=== PATIENT | female | born 1970 | race Two or more races ===

== ENCOUNTER 2021-06-15 07:28 | Emergency (ER) | payer MEDICAID, SELFPAY ==
--- NOTE | 2021-06-15 | ECG_ITS ---
Test Reason : GENERAL MEDICINE Blood Pressure : / mmHG Vent. Rate : 110 BPM Atrial Rate : 110 BPM P-R Int : 138 ms QRS Dur : 070 ms QT Int : 326 ms P-R-T Axes : 070 -06 020 degrees QTc Int : 441 ms Sinus tachycardia Otherwise normal ECG When compared with ECG of 06-NOV-2019 15:08, No significant change was found Referred By: Generic ED Physician Electronically Signed By:Elpidio Cortez
--- NOTE | ~2021-06-15 | XR_ITS ---
EXAMINATION: XR CHEST CLINICAL INFORMATION: Dyspnea COMPARISON: November 06, 2019 TECHNIQUE: 2 views of the chest were obtained. FINDINGS: No significant abnormality is noted involving the heart, lungs, mediastinum, bony thorax or soft tissues. XR/XR chest 2V IMPRESSION: No acute disease.
[2021-06-15 07:45] VITALS: BP 143/71; PULSE 110; RESP 18; TEMP 36.7; O2SAT 99; BMI 21.7
[2021-06-15] MEDS: 0.9 % Sodium Chloride 1,000 ML 999 ML IV (08:45)
[2021-06-15 08:50] LABS: MANUAL DIFF FLAG NO
[2021-06-15 08:54] LABS: Basophils Percent Auto 0.2 % (0-2); Eosinophils Absolute Auto 0.1 X10*3/uL (0.0-0.4); Eosinophils Percent Auto 0.6 % (0-4); Hematocrit 36.9 % (37.0-47.0); Hemoglobin 12.7 g/dl (12.0-16.0); Imm Gran Abs Auto 0.02 X10*3/uL (0.00-0.03); Imm Gran Pct Auto 0.2 % (0.0-0.4); Lymphocytes Absolute Auto 2.7 X10*3/uL (1.2-4.9); Mean Corpuscular HGB Conc 34.4 g/dl (31.0-35.0); Monocytes Absolute Auto 0.5 X10*3/uL (0.1-1.2); Monocytes Percent Auto 5.9 % (2-11); Neutrophils Absolute Auto 5.4 x10*3/uL (2.0-8.3); Neutrophils Percent Auto 62.1 % (45-73); Platelet Count 256 X10*3/uL (160-400); Red Blood Count 4.24 X10*6/uL (4.20-5.50); Red Cell Distribution Width 11.9 % (11.0-16.0); White Blood Count 8.7 X10*3/uL (4.8-10.8)
[2021-06-15 09:02] LABS: D Dimer High Sensitivity < 150 NG/ML
[2021-06-15 09:10] LABS: Lactic Acid 1.6 mmol/L (0.5-2.0)
[2021-06-15 09:14] LABS: COVID-19 Test Negative (Negative)
[2021-06-15 09:18] LABS: Troponin-I High Sensitivity 4.6 ng/L (<3.5-17.0)
[2021-06-15 09:30] VITALS: BP 161/81; PULSE 111; RESP 18; TEMP 36.8; O2SAT 99
[2021-06-15 09:41] LABS: Alanine Aminotransferase 9 U/L (0-31); Albumin Level 4.1 g/dL (3.5-5.0); Alkaline Phosphatase 81 U/L (39-117); Anion Gap 16 (12-20); Aspartate Amino Transferase 10 U/L (5-31); Bilirubin Total 0.7 mg/dL (0.0-1.0); Blood Urea Nitrogen 24 mg/dL (9-16); Calcium 9.7 mg/dL (8.4-10.2); Carbon Dioxide 28 mmol/L (22-29); Chloride 90 mmol/L (96-108); Creatinine Clr Calc Pharmacy 51.5; Estimated Glomerular Filt Rate 58; Glucose Random 381 mg/dL (60-115); Potassium 4.5 mmol/L (3.3-5.1); Sodium 129 mmol/L (135-145); Total Protein 7.9 g/dL (6.5-8.0)
--- NOTE | 2021-06-15 10:04 | ED.GENADULT ---
HPI - General Adult General Chief complaint: General Medical Stated complaint: shaking diff breathing Time Seen by Provider: 06/15/21 08:01 Source: patient and family (son) Mode of arrival: ambulatory Limitations: language barrier History of Present Illness HPI narrative: 51 year old Georgian-speaking Insulin-dependent diabetic female here with her son presents for shortness of breath, and worsening baseline weakness. States she did not eat yesterday or today because she felt too weak. Patient is alert oriented to person and place, cannot say the date or the year, son states that patient does not read or write very well. Son states that patient was recently hospitalized here at [facility], but there are no records here for that. No chest pain, no cough, no recent medication changes, no fevers, no abdominal pain, no nausea, no vomiting, no diarrhea, no dizziness, no focal weakness, no headache. Patient is not vaccinated for COVID. Related Data Previous Rx's Medication Instructions Recorded cephalexin 500 mg capsule 500 mg PO QID 7 Days #28 cap 06/15/21 Allergies Allergy/AdvReac Type Severity Reaction Status Date / Time No Known Allergies Allergy Unverified 01/21/20 16:32 shrimp Allergy Unknown swelling Uncoded 06/21/16 00:00 Review of Systems Constitutional: Constitutional: Denies chills, Reports fatigue, Denies fever(s), Denies headache(s) and Reports weakness Eyes: Eyes: Denies blurry vision, Denies change in vision, Denies diplopia and Denies loss of vision ENT: Denies dizziness, Denies otalgia, Denies headache(s), Reports mouth pain, Denies post nasal drip, Denies sinus pain, Denies sinus pressure and Denies sore throat Cardiovascular: Cardiovascular: Denies chest pain, Denies syncope, Denies leg edema, Denies lightheadedness, Denies Loss of Consciousness, Denies palpitations and Reports dyspnea Respiratory: Respiratory: Denies chest congestion, Denies cough and Reports dyspnea Gastrointestinal: Gastrointestinal: Denies abdominal pain, Denies hematochezia, Denies constipation, Denies diarrhea, Denies nausea and Denies vomiting Musculoskeletal: Musculoskeletal: Reports no additional musculoskeletal complaints, Denies back pain and Denies numbness Neurologic: Denies Neuro-related abnormal movements, Denies Abnormal speech present, Denies dizziness, Denies syncope, Denies headache(s), Denies focal weakness, Denies loss of vision, Denies numbness, Denies seizure-like activity, Denies Sensory deficit (Neuro), Denies tremor(s) and Reports weakness Endocrine: Endocrine: Reports fatigue and Denies palpitations [facility] Social History Social History Alcohol intake: unknown Patient Tobacco Use Status: Tobacco use Unknown Use of substances other than those prescribed or required for medical reasons: Unknown Advance Directives: No Advance Directives Information Provided: Yes Physical Exam Vital Signs: Vital Signs: Last Vital Signs Temp 98.3 F 06/15/21 09:30 Pulse 111 H 06/15/21 09:30 Resp 18 06/15/21 09:30 BP 161/81 H 06/15/21 09:30 Pulse Ox 99 06/15/21 09:30 BMI result Body Mass Index 21.7 Const: General: alert and awake Nutritional Appearance: thin (frail) Orientation/consciousness: oriented to person and oriented to place Limitations: language barrier HENMT: Head: Yes normal to inspection, Yes normocephalic and Yes atraumatic Ears: hearing grossly normal bilaterally, external ears normal, TM's normal bilaterally and EAC's normal General nose exam: Normal external nose present Face and sinus: Yes normal facial exam and Yes sinuses nontender Mouth: Normal oral and palatal mucosa present Throat: Yes posterior oropharynx normal Eyes: Conjunctivae: conjunctivae normal Pupils: Equal, round and reactive pupils present EOM: EOMs intact bilaterally Neck: Neck: Yes full ROM, Yes no lymphadenopathy and Yes supple Resp: Effort & Inspection: normal respiratory effort and able to speak in complete sentences Auscultation: clear to auscultation bilaterally, no crackles, no rales, no rhonchi and no wheezes Cardio: Rate: regular rate Rhythm: regular rhythm Heart sounds: S1 normal heart sound present and S2 normal heart sound present GI: Inspection: Yes normal to inspection Palpation (GI): Soft to palpation, nontender, no guarding and not rigid Percussion: Yes normal to percussion Auscultation: normal bowel sounds Skin: General skin exam: no rashes or lesions noted Neuro: General: oriented to person, oriented to place and Unable to assess gait Cranial nerves: Yes CN's II-XII intact bilaterally, Yes Facial sensation intact/muscles of mastication intact, Yes Equal, round and reactive pupils present, Yes Normal accommodation reflex present, Yes Bilaterally intact EOM present, Yes Nystagmus not present, Yes Normal facial strength present, Yes Midline tongue present, Yes Ability to bilaterally rotate head present and Yes Ability to bilaterally elevate shoulders present Cognition (Neuro): normal cognition Speech: No Abnormal speech present Gait exam (Neuro): Unable to assess gait Motor exam (neuro): 5/5 motor strength present throughout and Pronator motor function not present Sensory Exam: No Sensory deficit (Neuro) Deep tendon reflexes (DTR's): Right brachioradialis reflex intensity grade: 1+, Left brachioradialis reflex intensity grade: 1+, Right patellar reflex intensity grade: 1+ and Left patellar reflex intensity grade: 1+ Coordination: [id number] test normal Pupils: Normal pupillary reactivity/response: bilateral Extrem: General: Yes normal to inspection, Yes full ROM and Yes capillary refill normal Psych: Appearance: grossly normal Affect: normal affect Attitude: cooperative Thought process: Normal thought process present Course Course Course Narrative: 51-year-old female who is an insulin-dependent diabetic who lives alone presents for some days of worsening weakness, anorexia, and shortness of breath. On exam, patient is only alert oriented to person place, son says that is her baseline as she does not read or write. CBC shows no anemia or leukocytosis, chemistries are remarkable for sodium of 129 and blood sugar 381. Potassium is 4.5. Patient did not take her insulin today. EKG shows sinus tach at 01:10, troponin not elevated, negative D-dimer, patient is COVID negative. Lactate 1.6. Chest x-ray is unremarkable. Will get urine, gave fluids, 5 units insulin Reevaluation(s) Reevaluation #1: Urine positive for UTI will treat with cephalexin Counseled patient to return to emergency room she has fevers, back pain, or any other new or concerning symptoms. Patient verbalized agreement and understanding of the plan Medical Decision Making Lab Data Result diagrams: 06/15/21 08:43 06/15/21 08:43 Labs: Lab Results 06/15/21 06/15/21 06/15/21 Range/Units 08:41 08:42 08:43 WBC 8.7 (4.8-10.8) X10*3/uL RBC 4.24 (4.20-5.50) X10*6/uL Hgb 12.7 (12.0-16.0) g/dl Hct 36.9 L (37.0-47.0) % MCV 87.0 (80.0-98.0) fL MCH 30.0 (27.0-33.0) pg MCHC 34.4 (31.0-35.0) g/dl RDW 11.9 (11.0-16.0) % Plt Count 256 (160-400) X10*3/uL MPV 9.0 L (9.4-12.3) fL Immature Gran % (Auto) 0.2 (0.0-0.4) % Neut % (Auto) 62.1 (45-73) % Lymph % (Auto) 31.0 (20-40) % [place] % (Auto) 5.9 (2-11) % Eos % (Auto) 0.6 (0-4) % Baso % (Auto) 0.2 (0-2) % Lymph # (Auto) 2.7 (1.2-4.9) X10*3/uL [place] # (Auto) 0.5 (0.1-1.2) X10*3/uL Eos # (Auto) 0.1 (0.0-0.4) X10*3/uL Baso # (Auto) 0.0 (0.0-0.2) X10*3/uL Abs Immat Gran (auto) 0.02 (0.00-0.03) X10*3/uL Absolute Neuts (auto) 5.4 (2.0-8.3) x10*3/uL Absolute Nucleated RBC 0.000 (0.0-0.012) X10*3/uL Nucleated RBC % (auto) 0.0 (0.0-0.2) /100WBC D-Dimer High Sensitivty NG/ML Sodium (135-145) mmol/L Potassium (3.3-5.1) mmol/L Chloride (96-108) mmol/L Carbon Dioxide (22-29) mmol/L Anion Gap (12-20) BUN (9-16) mg/dL Creatinine (0.5-1.4) mg/dL Estim Creat Clear Calc Estimated GFR Random Glucose (60-115) mg/dL Lactic Acid 1.6 (0.5-2.0) mmol/L Calcium (8.4-10.2) mg/dL Total Bilirubin (0.0-1.0) mg/dL AST (5-31) U/L ALT (0-31) U/L Alkaline Phosphatase (39-117) U/L Troponin I High Sens (<3.5-17.0) ng/L Total Protein (6.5-8.0) g/dL Albumin (3.5-5.0) g/dL Urine Color Urine Appearance Urine pH (5.0-8.0) Ur Specific [place] (1.005-1.025) Urine Protein (NEG-TRACE) MG/DL Urine Glucose (UA) (NEG) MG/DL Urine Ketones (NEG) MG/DL Urine Blood (NEG) Urine Nitrite (NEG) Ur Leukocyte Esterase (NEG) Urine RBC (0) /HPF Urine WBC (0-4) /HPF Ur Squamous Epith Cells /LPF Urine Bacteria /LPF Urine Mucus /LPF COVID-19 (RICKY) Negative (Negative) COVID-19 Clin Com See Note 06/15/21 06/15/21 06/15/21 Range/Units 08:43 08:43 08:43 WBC (4.8-10.8) X10*3/uL RBC (4.20-5.50) X10*6/uL Hgb (12.0-16.0) g/dl Hct (37.0-47.0) % MCV (80.0-98.0) fL MCH (27.0-33.0) pg MCHC (31.0-35.0) g/dl RDW (11.0-16.0) % Plt Count (160-400) X10*3/uL MPV (9.4-12.3) fL Immature Gran % (Auto) (0.0-0.4) % Neut % (Auto) (45-73) % Lymph % (Auto) (20-40) % [place] % (Auto) (2-11) % Eos % (Auto) (0-4) % Baso % (Auto) (0-2) % Lymph # (Auto) (1.2-4.9) X10*3/uL [place] # (Auto) (0.1-1.2) X10*3/uL Eos # (Auto) (0.0-0.4) X10*3/uL Baso # (Auto) (0.0-0.2) X10*3/uL Abs Immat Gran (auto) (0.00-0.03) X10*3/uL Absolute Neuts (auto) (2.0-8.3) x10*3/uL Absolute Nucleated RBC (0.0-0.012) X10*3/uL Nucleated RBC % (auto) (0.0-0.2) /100WBC D-Dimer High Sensitivty < 150 NG/ML Sodium 129 L (135-145) mmol/L Potassium 4.5 (3.3-5.1) mmol/L Chloride 90 L (96-108) mmol/L Carbon Dioxide 28 (22-29) mmol/L Anion Gap 16 (12-20) BUN 24 H (9-16) mg/dL Creatinine 1.01 (0.5-1.4) mg/dL Estim Creat Clear Calc 51.5 Estimated GFR 58 Random Glucose 381 H* (60-115) mg/dL Lactic Acid (0.5-2.0) mmol/L Calcium 9.7 (8.4-10.2) mg/dL Total Bilirubin 0.7 (0.0-1.0) mg/dL AST 10 (5-31) U/L ALT 9 (0-31) U/L Alkaline Phosphatase 81 (39-117) U/L Troponin I High Sens 4.6 (<3.5-17.0) ng/L Total Protein 7.9 (6.5-8.0) g/dL Albumin 4.1 (3.5-5.0) g/dL Urine Color Urine Appearance Urine pH (5.0-8.0) Ur Specific [place] (1.005-1.025) Urine Protein (NEG-TRACE) MG/DL Urine Glucose (UA) (NEG) MG/DL Urine Ketones (NEG) MG/DL Urine Blood (NEG) Urine Nitrite (NEG) Ur Leukocyte Esterase (NEG) Urine RBC (0) /HPF Urine WBC (0-4) /HPF Ur Squamous Epith Cells /LPF Urine Bacteria /LPF Urine Mucus /LPF COVID-19 ([facility]ICK[facility]) (Negative) COVID-19 Clin Com 02/10/22 Range/Units 10:26 WBC (4.8-10.8) X10*3/uL RBC (4.20-5.50) X10*6/uL Hgb (12.0-16.0) g/dl Hct (37.0-47.0) % MCV (80.0-98.0) fL MCH (27.0-33.0) pg MCHC (31.0-35.0) g/dl RDW (11.0-16.0) % Plt Count (160-400) X10*3/uL MPV (9.4-12.3) fL Immature Gran % (Auto) (0.0-0.4) % Neut % (Auto) (45-73) % Lymph % (Auto) (20-40) % [place] % (Auto) (2-11) % Eos % (Auto) (0-4) % Baso % (Auto) (0-2) % Lymph # (Auto) (1.2-4.9) X10*3/uL [place] # (Auto) (0.1-1.2) X10*3/uL Eos # (Auto) (0.0-0.4) X10*3/uL Baso # (Auto) (0.0-0.2) X10*3/uL Abs Immat Gran (auto) (0.00-0.03) X10*3/uL Absolute Neuts (auto) (2.0-8.3) x10*3/uL Absolute Nucleated RBC (0.0-0.012) X10*3/uL Nucleated RBC % (auto) (0.0-0.2) /100WBC D-Dimer High Sensitivty NG/ML Sodium (135-145) mmol/L Potassium (3.3-5.1) mmol/L Chloride (96-108) mmol/L Carbon Dioxide (22-29) mmol/L Anion Gap (12-20) BUN (9-16) mg/dL Creatinine (0.5-1.4) mg/dL Estim Creat Clear Calc Estimated GFR Random Glucose (60-115) mg/dL Lactic Acid (0.5-2.0) mmol/L Calcium (8.4-10.2) mg/dL Total Bilirubin (0.0-1.0) mg/dL AST (5-31) U/L ALT (0-31) U/L Alkaline Phosphatase (39-117) U/L Troponin I High Sens (<3.5-17.0) ng/L Total Protein (6.5-8.0) g/dL Albumin (3.5-5.0) g/dL Urine Color STRAW Urine Appearance CLOUDY Urine pH 6.0 (5.0-8.0) Ur Specific [place] 1.010 (1.005-1.025) Urine Protein NEG (NEG-TRACE) MG/DL Urine Glucose (UA) >=1000 H (NEG) MG/DL Urine Ketones 5 (NEG) MG/DL Urine Blood TRACE (NEG) Urine Nitrite POS H (NEG) Ur Leukocyte Esterase TRACE H (NEG) Urine RBC 0-2 (0) /HPF Urine WBC 15-29 H (0-4) /HPF Ur Squamous Epith Cells 2+ /LPF Urine Bacteria 1+ /LPF Urine Mucus 1+ /LPF COVID-19 ([facility]ICK[facility]) (Negative) COVID-19 Clin Com ECG Data Interpretation: sinus tachycardia at a rate of 110, [place] interval 138, QRS 70 QTC 441, left-sided axis, no ST elevation or depression, no T-wave abnormality Discharge Plan Discharge Clinical Impression: UTI (urinary tract infection) Patient Disposition: Home, Self-Care Instructions: Urinary Tract Infection in Older Adults (ED) Additional Instructions: please call your primary care provider today for follow-up appointment in the next week. Please fill your antibiotic prescription starting today and take the antibiotics every 6 hours. Please return to the emergency room if you have fevers, back pain, or any other new or concerning symptoms llame a lewis proveedor de atenci?n primaria hoy para amada christophe de seguimiento en la pr?xima semana. Complete lewis receta de antibi?ticos a partir de hoy y tome los antibi?ticos cada 6 horas. Regrese a la kristan de emergencias si tiene fiebre, dolor de espalda o cualquier otro s?ntoma nuevo o preocupante. Prescriptions: New cephalexin 500 mg capsule 500 mg PO QID 7 Days Qty: 28 0RF Print Language: Georgian
[2021-06-15] MEDS: Insulin Regular, Human 100 UNIT/ML 3 ML VIAL IVPUSH (10:27)
[2021-06-15 10:43] LABS: Appearance Urine CLOUDY; Color Urine STRAW; Glucose Urine UA >=1000 MG/DL (NEG); Leukocyte Esterase Urine TRACE (NEG); Nitrite Urine POS (NEG); UACC Culture Trigger YES; Urine Blood TRACE (NEG); Urine Ketones 5 MG/DL (NEG); Urine Protein NEG (NEG-TRACE)
[2021-06-15 11:10] LABS: Bacteria Urine 1+ /LPF; Mucus Urine 1+ /LPF; RBC Urine 0-2 /HPF (0); Squamous Epithelial Cell Urine 2+ /LPF
--- NOTE | 2021-06-15 11:56 | PC.NURSE ---
call placed to son to inform him of his mothers planned D/C per Rubi AREVALO, no answer and mailbox full, will re-attempt
--- NOTE | 2021-06-15 11:56 | PC.NURSE ---
RN aware POC [id number]
[2021-06-15 12:01] LABS: Glucose, Whole Blood 151 mg/dL (60-115)
== END 2021-06-15 13:01 | disposition home or self-care (01) ==
PROVIDERS: Physician Assistant; Emergency Provider Emergency Medicine
DX: N39.0 Urinary tract infection, site not specified (principal); E11.9 Type 2 diabetes mellitus without complications; R06.02 Shortness of breath; Z79.4 Long term (current) use of insulin; Z20.822 Contact with and (suspected) exposure to COVID-19; Z79.899 Other long term (current) drug therapy
CPT/HCPCS: 71046; 80053; 81001; 82947; 83605; 84484; 85025; 85379; 87040; 87086; 87147; 87205; 87635; 93005; 96361; 96374; 99284

== ENCOUNTER 2021-06-16 10:20 | Inpatient (IN) | payer MEDICAID, SELFPAY ==
[2021-06-16] VITALS (7 sets, daily range): BP systolic 101–159; BP diastolic 55–78; PULSE 96–105; RESP 14–16; TEMP 36.6–37.4; O2SAT 97–99; BMI 17.6
--- NOTE | ~2021-06-16 | CT_ITS ---
EXAMINATION: CT HEAD WITHOUT CONTRAST CLINICAL INFORMATION: Altered mental status COMPARISON: 11/06/2019 TECHNIQUE: Contiguous axial imaging was performed from the skull base to vertex without intravenous administration of contrast. This CT examination was performed using dose optimization techniques as appropriate, variously including the following: *Automated exposure control *Adjustment of mA and/or kV according to patient size (this includes techniques or standardized protocols for targeted exams where dose is matched to indication/reason for exam; i.e. extremities or head) *Use of iterative reconstruction technique DLP: 601 mGy-cm FINDINGS: There is no evidence of acute intracranial hemorrhage or territorial infarction. No abnormal mass effect or midline shift is seen. Hardy to white matter differentiation is well preserved. No extra-axial fluid collections are identified. The ventricles are normal in size. There is no abnormal attenuation within the brain parenchyma. The osseous structures and soft tissues are normal. The mastoid air cells and visualized portions of the paranasal sinuses are well aerated. CT/CT head/brain wo con IMPRESSION: Unremarkable noncontrast brain CT.
--- NOTE | 2021-06-16 11:10 | ECG_ITS ---
Test Reason : AMS Blood Pressure : / mmHG Vent. Rate : 095 BPM Atrial Rate : 095 BPM P-R Int : 128 ms QRS Dur : 070 ms QT Int : 360 ms P-R-T Axes : 063 -03 019 degrees QTc Int : 452 ms Normal sinus rhythm Normal ECG When compared with ECG of 15-JUN-2021 07:49, No significant change was found Referred By: Cande Miller Electronically Signed By:Elpidio Cortez
--- NOTE | 2021-06-16 11:27 | PC.NURSE ---
[phone] - Neida Annaleeabimbola lara (daughter)
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
--- NOTE | 2021-06-16 11:47 | PC.NURSE ---
pt A&O to person and place, believes it is 2020, per daughters report, pt has not been taking her medications, is living in [facility] and will not shower. pt denies SOB, CP and pain. she is afebrile, vitals are stable, elevated BP (159/73), blood cultures were positive.
[2021-06-16 11:48] LABS: MANUAL DIFF FLAG NO
[2021-06-16 11:48] LABS: Glucose, Whole Blood 249 mg/dL (60-115)
[2021-06-16 11:54] LABS: Basophils Percent Auto 0.2 % (0-2); Eosinophils Absolute Auto 0.1 X10*3/uL (0.0-0.4); Eosinophils Percent Auto 1.1 % (0-4); Hematocrit 37.6 % (37.0-47.0); Hemoglobin 12.7 g/dl (12.0-16.0); Imm Gran Abs Auto 0.02 X10*3/uL (0.00-0.03); Imm Gran Pct Auto 0.2 % (0.0-0.4); Lymphocytes Absolute Auto 2.6 X10*3/uL (1.2-4.9); Lymphocytes Percent Auto 31.4 % (20-40); Mean Corpuscular HGB Conc 33.8 g/dl (31.0-35.0); Mean Corpuscular Volume 88.9 fL (80.0-98.0); Mean Platelet Volume 8.8 fL (9.4-12.3); Monocytes Absolute Auto 0.6 X10*3/uL (0.1-1.2); Monocytes Percent Auto 6.8 % (2-11); Neutrophils Percent Auto 60.3 % (45-73); Platelet Count 259 X10*3/uL (160-400); Red Blood Count 4.23 X10*6/uL (4.20-5.50); Red Cell Distribution Width 11.8 % (11.0-16.0); White Blood Count 8.2 X10*3/uL (4.8-10.8)
[2021-06-16 12:00] LABS: Ammonia 15 umol/L (13-55)
[2021-06-16 12:06] LABS: Ethanol < 10 mg/dL
[2021-06-16 12:08] LABS: COVID-19 Test Negative (Negative); IDNOW Serial# 9DD0AD1C
[2021-06-16 12:10] LABS: Alanine Aminotransferase 6 U/L (0-31); Alkaline Phosphatase 79 U/L (39-117); Anion Gap 14 (12-20); Aspartate Amino Transferase 10 U/L (5-31); Bilirubin Direct 0.2 mg/dL (0.0-0.5); Bilirubin Total 0.5 mg/dL (0.0-1.0); Blood Urea Nitrogen 14 mg/dL (9-16); Calcium 9.8 mg/dL (8.4-10.2); Carbon Dioxide 29 mmol/L (22-29); Chloride 99 mmol/L (96-108); Creatinine Clr Calc Pharmacy 68.3; Estimated Glomerular Filt Rate > 60; Glucose Random 262 mg/dL (60-115); Magnesium 2.3 mg/dL (1.6-2.6); Potassium 3.8 mmol/L (3.3-5.1); Sodium 138 mmol/L (135-145); Total Protein 7.6 g/dL (6.5-8.0)
[2021-06-16] MEDS: cefTRIAXone sodium 2 GM in 0.9 % Sodium Chloride 50 ML IV (12:39)
[2021-06-16 12:48] LABS: Lactic Acid 1.6 mmol/L (0.5-2.0)
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
[2021-06-16 15:37] LABS: Glucose, Whole Blood 196 mg/dL (60-115)
--- NOTE | 2021-06-16 15:39 | PHA.MEDREC ---
Pharmacy Consult ? Medication Reconciliation Pharmacy has completed the medication reconciliation. Spoke to the daughter who went through all the medication bottles with me. The daughter said the patient hasn't taken medications for years.
[2021-06-16] MEDS: 0.9 % Sodium Chloride Flush 3 ML SYRINGE IVFLUSH (16:03)
[2021-06-16] MEDS: Enoxaparin Sodium 40 MG/0.4 ML SYRINGE SUBCUT (16:03)
[2021-06-16 17:53] LABS: Glucose, Whole Blood 146 mg/dL (60-115)
[2021-06-16 18:20] LABS: Glucose, Whole Blood 171 mg/dL (60-115)
[2021-06-16] MEDS: Insulin Lispro 100 UNIT/ML 3 ML VIAL SUBCUT ×2 (18:35→22:09)
[2021-06-16 21:48] LABS: Glucose, Whole Blood 331 mg/dL (60-115)
[2021-06-17] MEDS: 0.9 % Sodium Chloride Flush 3 ML SYRINGE IVFLUSH ×2 (03:32→08:04)
[2021-06-17 03:36] VITALS: BP 130/71; PULSE 90; RESP 16; TEMP 36.6; O2SAT 99
[2021-06-17 06:51] LABS: Anion Gap 12 (12-20); Blood Urea Nitrogen 19 mg/dL (9-16); Calcium 9.6 mg/dL (8.4-10.2); Carbon Dioxide 33 mmol/L (22-29); Chloride 98 mmol/L (96-108); Creatinine Clr Calc Pharmacy 73.8; Estimated Glomerular Filt Rate > 60; Glucose Random 120 mg/dL (60-115); Potassium 4.4 mmol/L (3.3-5.1); Sodium 139 mmol/L (135-145)
[2021-06-17 07:40] LABS: Glucose, Whole Blood 135 mg/dL (60-115)
[2021-06-17 08:00] VITALS: BP 117/67; PULSE 89; RESP 20; TEMP 36.2; O2SAT 99
[2021-06-17] MEDS: Omeprazole 20 MG CAPSULE.DR PO (08:36)
[2021-06-17] MEDS: Sertraline HCL 25 MG TABLET PO (08:36)
[2021-06-17] MEDS: Isosorbide Mononitrate 30 MG TAB.ER.24H PO (08:36)
[2021-06-17] MEDS: lisinopriL 40 MG TABLET PO (08:37)
[2021-06-17 11:43] LABS: Glucose, Whole Blood 376 mg/dL (60-115)
[2021-06-17 11:48] VITALS: BP 109/59; PULSE 93; RESP 20; TEMP 36.9; O2SAT 98
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
[2021-06-17] MEDS: Insulin Lispro 100 UNIT/ML 3 ML VIAL SUBCUT ×2 (12:16→16:53)
[2021-06-17] MEDS: cefTRIAXone sodium 1 GM in 0.9 % Sodium Chloride 50 ML IV (12:16)
[2021-06-17] MEDS: Insulin Glargine,Hum.rec.anlog 100 UNIT/ML 10 ML VIAL 8 UNIT SUBCUT (12:16)
--- NOTE | 2021-06-17 14:31 | MHC.CM.PN ---
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 CM SPOKE TO ALEXSANDRA OVER PHONE AFTER ATTEMPTING TO RETURN AZAM'S CALL [phone], AZAM DID NOT ANSWER AND MESSAGE WAS LEFT. D/C HOME TODAY SELF-CARE, FAMILY WILL TRANSPORT PT HOME AT 3PM
[2021-06-17 16:47] LABS: Glucose, Whole Blood 239 mg/dL (60-115)
[2021-06-17] MEDS: Enoxaparin Sodium 40 MG/0.4 ML SYRINGE SUBCUT (16:53)
== END 2021-06-17 17:45 | disposition home or self-care (01) | DRG 52 ==
LOC: HO.ED 14:23 → HO.EDOVER 14:28 → HO.S3 17:33
PROVIDERS: Physician Assistant; Admitting Provider Student in an Organized Health Care Education/Training Program; Emergency Provider Emergency Medicine Emergency Medical Services; Visit Provider Student in an Organized Health Care Education/Training Program
DX: G93.41 Metabolic encephalopathy (principal); N39.0 Urinary tract infection, site not specified; Z91.14 Patient's other noncompliance with medication regimen; Z20.822 Contact with and (suspected) exposure to COVID-19; Z79.4 Long term (current) use of insulin; Z79.83 Long term (current) use of bisphosphonates; Z79.82 Long term (current) use of aspirin; Z79.899 Other long term (current) drug therapy
CPT/HCPCS: 36415; 70450; 80048; 80076; 82077; 82140; 82947; 83605; 83735; 85025; 87040; 87635; 93005; 96365; 99218; 99285; J0696; J1650

== ENCOUNTER 2021-07-17 13:35 | Outpatient (REF) | payer MEDICAID, SELFPAY ==
--- NOTE | ~2021-07-17 | MM_ITS ---
EXAMINATION: MM DIAGNOSTIC DIGITAL BREAST TOMOSYNTHESIS, BILATERAL CLINICAL INFORMATION: Due for yearly. At time of imaging, redness noted anterior right breast and lateral left breast. Screening converted to diagnostic. No known family history breast cancer. TC score 3%. COMPARISON: Mammography: 07/31/2018, 07/29/2017, 06/22/2016 TECHNIQUE: Digital breast tomosynthesis is performed in both the craniocaudal and mediolateral oblique views along with computer-aided detection (CAD). Synthesized 2D images are generated from the tomosynthesis. FINDINGS: There are scattered areas of fibroglandular density (ACR BI-RADS breast composition Category b). Parenchymal pattern is similar to prior studies. There is no interval mass or architectural abnormality or focal duct ectasia. No abnormal calcifications. There is no skin thickening or retraction or coarsening of the Haresh's ligaments. The axilla and skin contours are unremarkable. Discussion with the patient using an entertainment usher reveals no pain or itching or discharge. No palpable concern. Patient believes redness may be related to bra/clothing. On clinical evaluation, there is mild redness, otherwise unremarkable. Patient advised to follow-up with her primary care provider as needed. MM/MM tomosynthesis diagnostic BI IMPRESSION: No mammographic evidence of malignancy or inflammatory changes. ASSESSMENT: BI-RADS 2: Benign RECOMMENDATION: 1. Mild bilateral breast redness may be managed based on the clinical impression. Patient to follow-up with her primary care provider. 2. Otherwise, routine annual screening mammography. This patient's information was entered into a reminder system with a target due date for their next mammogram.
== END 2021-07-17 13:36 | disposition home or self-care (01) ==
LOC: HO.MAMMO 13:35
PROVIDERS: PCP Internal Medicine; Visit Provider Internal Medicine
DX: R92.2 Inconclusive mammogram (principal)
CPT/HCPCS: 77062; 77066

== ENCOUNTER 2022-06-06 17:03 | Inpatient (IN) | payer OTHER, MEDICAID, SELFPAY ==
--- NOTE | ~2022-06-06 | CT_ITS ---
EXAMINATION: CT ABDOMEN AND PELVIS WITHOUT CONTRAST CLINICAL INFORMATION: Urosepsis COMPARISON: 11/06/2019 TECHNIQUE: Multidetector volumetric imaging was performed from the superior aspect of the liver through the pubic symphysis. Sagittal and coronal reformatted images were obtained on the technologist's workstation. This CT examination was performed using dose optimization techniques as appropriate, variously including the following: *Automated exposure control *Adjustment of mA and/or kV according to patient size (this includes techniques or standardized protocols for targeted exams where dose is matched to indication/reason for exam; i.e. extremities or head) *Use of iterative reconstruction technique DLP: 295 mGy-cm FINDINGS: LUNG BASES: The visualized lung bases are unremarkable. LIVER, GALLBLADDER, AND BILIARY TREE: The liver is normal in size, shape, and attenuation. No focal hepatic lesion or biliary ductal dilatation is present. Cholecystectomy. PANCREAS: Unremarkable. SPLEEN: Unremarkable. ADRENAL GLANDS: Unremarkable. KIDNEYS AND URETERS: The cortical medullary differentiation of the right kidney is somewhat diminished, limited by the noncontrast nature of this study. No definite hydronephrosis seen. No calculi. BLADDER: Unremarkable. GASTROINTESTINAL TRACT: The stomach is unremarkable. Normal caliber small bowel. No obstruction. No colonic wall thickening or acute inflammation. Normal appendix. No free air or free fluid. ABDOMINAL WALL: No significant hernia is appreciated. LYMPH NODES: Normal. VASCULAR: Normal caliber aorta with minimal atherosclerotic calcification. PELVIC VISCERA: The uterus and adnexa are unremarkable. OSSEOUS STRUCTURES: No acute or suspicious osseous abnormality. Mild degenerative changes throughout the spine and of the hips. There is mild anterior wedging at the L1 vertebral body which is a new finding from 11/06/2019. CT/CT abdomen pelvis wo IV con IMPRESSION: 1. Diminished corticomedullary differentiation of the right kidney. Lack of contrast limits evaluation. This could be associated with pyelonephritis. No hydronephrosis. No calculi. 2. Mild anterior wedging of the L1 vertebral body is new from 11/06/2019. Fleischner guidelines were followed.
--- NOTE | ~2022-06-06 | XR_ITS ---
EXAMINATION: XR CHEST CLINICAL INFORMATION: Shortness of breath, medical clearance COMPARISON: 06/15/2021 TECHNIQUE: Frontal view of the chest was obtained. FINDINGS: The lungs are clear with no focal consolidation. No evidence of pneumothorax, pulmonary edema, or pleural effusions. The cardiomediastinal silhouette is unremarkable. No acute osseous findings. XR/XR chest 1V IMPRESSION: No acute cardiopulmonary findings.
--- NOTE | 2022-06-06 17:16 | ED.PSYCH ---
HPI - Psych General Chief Complaint: Failure to Thrive Stated Complaint: SECT 12, NON MED COMPLIANT,NO SI/HI PER EMS Time Seen by Provider: 06/06/22 17:05 Source: patient and EMS Mode of arrival: EMS Limitations: other (Poor historian) History of Present Illness HPI Narrative: This is a 52-year-old female history of major depression, diabetes presenting to the emergency department via ambulance on a Section 12. According to EMS patient was found in her apartment, alone, lying in bed, patient was Section by the behavioral health team and community off for not taking her medications, or her insulin, not showering, inability to care for herself. Patient tells me she has not been taking any of her medications including her psychiatric meds. She denies suicidal and homicidal ideation. Denies drugs, alcohol tobacco. Patient denies visual, auditory and tactile hallucinations. She reports no medical complaints at this time other than the fact that she is hungry. Related Data Home Medications Medication Instructions Recorded Confirmed No Known Home Meds 06/06/22 06/06/22 Allergies Allergy/AdvReac Type Severity Reaction Status Date / Time No Known Allergies Allergy Unverified 01/21/20 16:32 shrimp Allergy Unknown swelling Uncoded 06/21/16 00:00 Review of Systems Review of Systems: Constitutional : No Weight loss, No Fever, No Chills, No Fatigue, No Malaise ENT/Mouth : No sore throat, No Rhinorrhea Eyes: No Eye Pain, No Swelling, No Redness Cardiovascular : No Chest Pain, No SOB, No Dyspnea on Exertion, No Orthopnea, No Edema, No Palpitations Respiratory : No Cough, No Sputum, No Wheezing Gastrointestinal : No Nausea, No Vomiting, No Diarrhea, No Constipation, No abdominal Pain, No Hematochezia, No Melena Genitourinary : No Dysuria, No Urinary Frequency, No Hematuria, Musculoskeletal : No joint pain, No Myalgias, No Joint Swelling Skin : No Skin Lesions, No rash Neuro : No Weakness, No Numbness, No Dizziness, No Headache Psych : No Anxiety/Panic, No Depression All other systems reviewed and are negative Yes all other systems are reviewed and are negative [facility]LY [facility] Past Medical History Attestation statement: The following information was validated with the patient. Source: old records reviewed Medical History (Updated 06/07/22 @ 02:01 by MICKEY Rodriguez) Depression Type 2 diabetes mellitus Family History Family History Other Hypertension Social History Social History Alcohol intake: never Patient Tobacco Use Status: Tobacco use Unknown Smoked in Last 30 Days: No Use of substances other than those prescribed or required for medical reasons: No Advance Directives: No Advance Directives Information Provided: Yes Patient : No service: No Current occupational status: unemployed Physical Exam Vital Signs: Vital Signs: Last Vital Signs Temp 102.9 F H 06/07/22 01:44 Pulse 122 H 06/07/22 01:56 Resp 23 H 06/07/22 01:56 BP 197/83 H 06/07/22 01:56 Pulse Ox 99 06/07/22 01:56 O2 Del Method 06/07/22 01:56 BMI result Body Mass Index 23.8 Vital signs stable Appearance: Alert.? Oriented X3.? No acute distress.? Head: Normocephalic, atraumatic, no step-offs or deformities Eyes: Pupils equal, round and reactive to light.? ENT: Pharynx normal.? Neck: Normal inspection.? Neck supple.? CVS: Normal heart rate and rhythm.? Pulses normal.? Respiratory: No respiratory distress.? Breath sounds normal.? Abdomen: Soft and nontender.? Skin: Skin warm and dry.? Normal skin color.? Normal skin turgor.? Extremities: No lower extremity edema.? No calf ttp. Global weakness. Neuro: Oriented X 3.? No motor deficit.? No sensory deficit. CN 2-12 intact . Answering questions appropriately and following commands. Course Reevaluation(s) Reevaluation #1: CBC with leukocytosis of 13.1, patient without complaints therefore low suspicion for infection. Patient is noted to have a normocytic anemia hemoglobin 10.1 hematocrit 30.1 however this appears to be around patient's baseline. No reports of bleeding. Patient's sodium 130 being hydrated with IV fluids. Initial glucose 430 she was given 10 units of insulin, despite this p.o. in of care increased to 488. I do not suspect DKA there is no anion gap. There is small acetone however this could be secondary to dehydration. Time: 20:34 Reevaluation #2: Plan of care improved to 260 . Patient still has not been able to give us urine I told her that if she is not able to give us 1 week should obtain a straight cath for medical reasons to rule out other causes of possible psychiatric presentation. Time: 22:35 Reevaluation #3: Again sugar increasing. Patient still has not given us a urine I did speak to nursing to please straight cath patient. I noted upon review of vital signs patient is noted to be tachypneic tachycardic and febrile. At this time infection suspected. Blood cultures, lactic acid and antibiotics ordered. I also ordered an influenza test. Patient is mentating well. I will also order Tylenol for fever. Time: 00:36 Additional Reevaluation(s): Lactic acidosis noted, patient receiving fluid hydration. 0200 Patient's urine positive for infection. She is receiving appropriate treatment will be admitted to the hospitalist team for further intervention and treatment. Medications Administered Generic Name Dose Route Start Last Admin Trade Name Freq PRN Reason Stop Dose Admin Enoxaparin Sodium 40 mg 06/07/22 00:45 06/07/22 01:07 Enoxaparin Sodium 40 Mg/0.4 Ml Syringe SUBCUT 40 mg Q24H JM Administration Insulin Glargine 13 unit 06/07/22 00:45 06/07/22 01:05 Insulin Glargine,Hum.Rec.Anlog 100 Unit/Ml 10 Ml Vial SUBCUT 13 unit BEDTIME JM Administration Discontinued Medications Generic Name Dose Route Start Last Admin Trade Name Freq PRN Reason Stop Dose Admin Acetaminophen 975 mg 06/07/22 00:36 06/07/22 01:05 Acetaminophen 325 Mg Tablet PO 06/07/22 00:37 975 mg ONCE ONE Administration Sodium Chloride 1,000 mls @ 999 mls/hr 06/06/22 17:30 06/06/22 19:20 Ns IV 06/06/22 18:30 Infused .Q1H1M JM Infusion Sodium Chloride 1,000 mls @ 999 mls/hr 06/06/22 21:00 06/06/22 22:59 Ns IV 06/06/22 22:00 Infused .Q1H1M JM Infusion Ceftriaxone Sodium 1 gm/ 50 mls @ 100 mls/hr 06/07/22 00:36 06/07/22 01:06 Sodium Chloride IV 06/07/22 01:05 100 mls/hr ONCE ONE Administration Sodium Chloride 250 mls @ 999 mls/hr 06/07/22 00:43 06/07/22 01:19 Ns IV 06/07/22 00:58 Not Given .Q16M ONE Insulin Human Regular 10 unit 06/06/22 19:18 06/06/22 20:35 Insulin Regular, Human 100 Unit/Ml 3 Ml Vial IVPUSH 06/06/22 19:19 10 unit ONCE ONE Administration Insulin Human Regular 5 unit 06/06/22 20:59 06/06/22 21:58 Insulin Regular, Human 100 Unit/Ml 3 Ml Vial IVPUSH 06/06/22 21:00 5 unit ONCE ONE Administration Insulin Human Regular 5 unit 06/06/22 22:22 06/07/22 00:01 Insulin Regular, Human 100 Unit/Ml 3 Ml Vial IVPUSH 06/06/22 22:23 5 unit ONCE ONE Administration Labetalol HCl 10 mg 06/07/22 01:49 06/07/22 01:55 Labetalol Hcl 100 Mg/20 Ml Vial IVPUSH 06/07/22 01:50 10 mg ONCE ONE Administration Medical Decision Making Medical Decision Making [facility] Narrative: 1718 52-year-old female presents to the emergency department via ambulance on a Section 12 for non med compliance, inability to care for self, patient without medical complaints. Physical examination benign. Likely major depression. I do not suspect metabolic abnormalities. Unlikely infection. Plan at this time medical clearance evaluation by the behavioral health team Differential Diagnosis Differential Diagnoses: The differential diagnosis associated with the presentation includes Likely major depression. I do not suspect metabolic abnormalities. Unlikely infection. Admission/Observation Consideration of admission/observation: Escalation of care including admission/observation considered Lab Data 06/06/22 18:05 06/06/22 18:05 Labs: Lab Results 06/06/22 06/06/22 06/06/22 Range/Units 17:15 18:05 18:05 WBC 13.1 H (4.8-10.8) X10*3/uL RBC 3.56 L (4.20-5.50) X10*6/uL Hgb 10.1 L D (12.0-16.0) g/dl Hct 30.1 L (37.0-47.0) % MCV 84.6 (80.0-98.0) fL MCH 28.4 (27.0-33.0) pg MCHC 33.6 (31.0-35.0) g/dl RDW 12.8 (11.0-16.0) % Plt Count 259 (160-400) X10*3/uL MPV 8.9 L (9.4-12.3) fL Immature Gran % (Auto) 0.5 H (0.0-0.4) % Neut % (Auto) 73.9 H (45-73) % Lymph % (Auto) 20.4 (20-40) % Treasure % (Auto) 4.4 (2-11) % Eos % (Auto) 0.5 (0-4) % Baso % (Auto) 0.3 (0-2) % Lymph # (Auto) 2.7 (1.2-4.9) X10*3/uL Treasure # (Auto) 0.6 (0.1-1.2) X10*3/uL Eos # (Auto) 0.1 (0.0-0.4) X10*3/uL Baso # (Auto) 0.0 (0.0-0.2) X10*3/uL Abs Immat Gran (auto) 0.06 H (0.00-0.03) X10*3/uL Absolute Neuts (auto) 9.6 H (2.0-8.3) x10*3/uL Absolute Nucleated RBC 0.000 (0.0-0.012) X10*3/uL Nucleated RBC % (auto) 0.0 (0.0-0.2) /100WBC VBG pH (7.32-7.43) VBG pCO2 mmHg VBG pO2 mmHg VBG HCO3 (22-26) mmol/L VBG O2 Saturation % VBG Base Excess mmol/L Sodium 130 L (135-145) mmol/L Potassium 3.8 (3.3-5.1) mmol/L Chloride 92 L (96-108) mmol/L Carbon Dioxide 29 (22-29) mmol/L Anion Gap 13 (12-20) BUN 18 H (9-16) mg/dL Creatinine 0.87 (0.5-1.4) mg/dL Estim Creat Clear Calc 70.0 Estimated GFR > 60 POC Glucose 410 H* (60-115) mg/dL Random Glucose 430 H* (60-115) mg/dL Lactic Acid (0.5-2.0) mmol/L Calcium 9.0 D (8.4-10.2) mg/dL Magnesium 2.1 (1.6-2.6) mg/dL Total Bilirubin 0.4 (0.0-1.0) mg/dL AST 7 (5-31) U/L ALT < 6 (0-31) U/L Alkaline Phosphatase 116 (39-117) U/L Total Protein 7.0 (6.5-8.0) g/dL Albumin 3.1 L (3.5-5.0) g/dL Urine Color Urine Appearance Urine pH (5.0-9.0) Ur Specific [place] (1.005-1.025) Urine Protein (Neg-Trace) mg/dL Urine Glucose (UA) (Negative) mg/dL Urine Ketones (Negative) mg/dL Urine Blood (Negative) Urine Nitrite (Negative) Ur Leukocyte Esterase (Negative) Urine RBC (0-2) /HPF Urine WBC (0-5) /HPF Ur Squamous Epith Cells (0-2) /HPF Urine Bacteria (None Seen) Hyaline Casts (0-2) /LPF Salicylates < 5.0 L (15-30) mg/dL Urine Opiates Screen (Not Detect) Urine Fentanyl Screen (Not Detect) Acetaminophen < 17 (<30) mcg/mL Ur Barbiturates Screen (Not Detect) Ur Phencyclidine Scrn (Not Detect) Ur Amphetamines Screen (Not Detect) U Benzodiazepines Scrn (Not Detect) Urine Cocaine Screen (Not Detect) U Marijuana (THC) Screen (Not Detect) Ethyl Alcohol < 10 mg/dL Acetone, Qual (Negative) COVID-19 (RICKY) (Negative) COVID-19 Clin Com Influenza Type A (GIORGIO) (Negative) Influenza Type B (GIORGIO) (Negative) Influenza A & B Note 06/06/22 06/06/22 06/06/22 Range/Units 18:05 18:05 18:09 WBC (4.8-10.8) X10*3/uL RBC (4.20-5.50) X10*6/uL Hgb (12.0-16.0) g/dl Hct (37.0-47.0) % MCV (80.0-98.0) fL MCH (27.0-33.0) pg MCHC (31.0-35.0) g/dl RDW (11.0-16.0) % Plt Count (160-400) X10*3/uL MPV (9.4-12.3) fL Immature Gran % (Auto) (0.0-0.4) % Neut % (Auto) (45-73) % Lymph % (Auto) (20-40) % Treasure % (Auto) (2-11) % Eos % (Auto) (0-4) % Baso % (Auto) (0-2) % Lymph # (Auto) (1.2-4.9) X10*3/uL Treasure # (Auto) (0.1-1.2) X10*3/uL Eos # (Auto) (0.0-0.4) X10*3/uL Baso # (Auto) (0.0-0.2) X10*3/uL Abs Immat Gran (auto) (0.00-0.03) X10*3/uL Absolute Neuts (auto) (2.0-8.3) x10*3/uL Absolute Nucleated RBC (0.0-0.012) X10*3/uL Nucleated RBC % (auto) (0.0-0.2) /100WBC VBG pH 7.40 (7.32-7.43) VBG pCO2 53 mmHg VBG pO2 50 mmHg VBG HCO3 33 H (22-26) mmol/L VBG O2 Saturation 77.0 % VBG Base Excess 7.4 mmol/L Sodium (135-145) mmol/L Potassium (3.3-5.1) mmol/L Chloride (96-108) mmol/L Carbon Dioxide (22-29) mmol/L Anion Gap (12-20) BUN (9-16) mg/dL Creatinine (0.5-1.4) mg/dL Estim Creat Clear Calc Estimated GFR POC Glucose (60-115) mg/dL Random Glucose (60-115) mg/dL Lactic Acid (0.5-2.0) mmol/L Calcium (8.4-10.2) mg/dL Magnesium (1.6-2.6) mg/dL Total Bilirubin (0.0-1.0) mg/dL AST (5-31) U/L ALT (0-31) U/L Alkaline Phosphatase (39-117) U/L Total Protein (6.5-8.0) g/dL Albumin (3.5-5.0) g/dL Urine Color Urine Appearance Urine pH (5.0-9.0) Ur Specific [place] (1.005-1.025) Urine Protein (Neg-Trace) mg/dL Urine Glucose (UA) (Negative) mg/dL Urine Ketones (Negative) mg/dL Urine Blood (Negative) Urine Nitrite (Negative) Ur Leukocyte Esterase (Negative) Urine RBC (0-2) /HPF Urine WBC (0-5) /HPF Ur Squamous Epith Cells (0-2) /HPF Urine Bacteria (None Seen) Hyaline Casts (0-2) /LPF Salicylates (15-30) mg/dL Urine Opiates Screen (Not Detect) Urine Fentanyl Screen (Not Detect) Acetaminophen (<30) mcg/mL Ur Barbiturates Screen (Not Detect) Ur Phencyclidine Scrn (Not Detect) Ur Amphetamines Screen (Not Detect) U Benzodiazepines Scrn (Not Detect) Urine Cocaine Screen (Not Detect) U Marijuana (THC) Screen (Not Detect) Ethyl Alcohol mg/dL Acetone, Qual Small H (Negative) COVID-19 (RICKY) Negative (Negative) COVID-19 Clin Com See Note Influenza Type A (GIORGIO) (Negative) Influenza Type B (GIORGIO) (Negative) Influenza A & B Note 06/06/22 06/06/22 06/06/22 Range/Units 20:34 22:35 23:04 WBC (4.8-10.8) X10*3/uL RBC (4.20-5.50) X10*6/uL Hgb (12.0-16.0) g/dl Hct (37.0-47.0) % MCV (80.0-98.0) fL MCH (27.0-33.0) pg MCHC (31.0-35.0) g/dl RDW (11.0-16.0) % Plt Count (160-400) X10*3/uL MPV (9.4-12.3) fL Immature Gran % (Auto) (0.0-0.4) % Neut % (Auto) (45-73) % Lymph % (Auto) (20-40) % Treasure % (Auto) (2-11) % Eos % (Auto) (0-4) % Baso % (Auto) (0-2) % Lymph # (Auto) (1.2-4.9) X10*3/uL Treasure # (Auto) (0.1-1.2) X10*3/uL Eos # (Auto) (0.0-0.4) X10*3/uL Baso # (Auto) (0.0-0.2) X10*3/uL Abs Immat Gran (auto) (0.00-0.03) X10*3/uL Absolute Neuts (auto) (2.0-8.3) x10*3/uL Absolute Nucleated RBC (0.0-0.012) X10*3/uL Nucleated RBC % (auto) (0.0-0.2) /100WBC VBG pH (7.32-7.43) VBG pCO2 mmHg VBG pO2 mmHg VBG HCO3 (22-26) mmol/L VBG O2 Saturation % VBG Base Excess mmol/L Sodium (135-145) mmol/L Potassium (3.3-5.1) mmol/L Chloride (96-108) mmol/L Carbon Dioxide (22-29) mmol/L Anion Gap (12-20) BUN (9-16) mg/dL Creatinine (0.5-1.4) mg/dL Estim Creat Clear Calc Estimated GFR POC Glucose 488 H* 260 H 291 H (60-115) mg/dL Random Glucose (60-115) mg/dL Lactic Acid (0.5-2.0) mmol/L Calcium (8.4-10.2) mg/dL Magnesium (1.6-2.6) mg/dL Total Bilirubin (0.0-1.0) mg/dL AST (5-31) U/L ALT (0-31) U/L Alkaline Phosphatase (39-117) U/L Total Protein (6.5-8.0) g/dL Albumin (3.5-5.0) g/dL Urine Color Urine Appearance Urine pH (5.0-9.0) Ur Specific [place] (1.005-1.025) Urine Protein (Neg-Trace) mg/dL Urine Glucose (UA) (Negative) mg/dL Urine Ketones (Negative) mg/dL Urine Blood (Negative) Urine Nitrite (Negative) Ur Leukocyte Esterase (Negative) Urine RBC (0-2) /HPF Urine WBC (0-5) /HPF Ur Squamous Epith Cells (0-2) /HPF Urine Bacteria (None Seen) Hyaline Casts (0-2) /LPF Salicylates (15-30) mg/dL Urine Opiates Screen (Not Detect) Urine Fentanyl Screen (Not Detect) Acetaminophen (<30) mcg/mL Ur Barbiturates Screen (Not Detect) Ur Phencyclidine Scrn (Not Detect) Ur Amphetamines Screen (Not Detect) U Benzodiazepines Scrn (Not Detect) Urine Cocaine Screen (Not Detect) U Marijuana (THC) Screen (Not Detect) Ethyl Alcohol mg/dL Acetone, Qual (Negative) COVID-19 (RICKY) (Negative) COVID-19 Clin Com Influenza Type A (GIORGIO) (Negative) Influenza Type B (GIORGIO) (Negative) Influenza A & B Note 06/07/22 06/07/22 06/07/22 Range/Units 00:23 00:51 00:51 WBC (4.8-10.8) X10*3/uL RBC (4.20-5.50) X10*6/uL Hgb (12.0-16.0) g/dl Hct (37.0-47.0) % MCV (80.0-98.0) fL MCH (27.0-33.0) pg MCHC (31.0-35.0) g/dl RDW (11.0-16.0) % Plt Count (160-400) X10*3/uL MPV (9.4-12.3) fL Immature Gran % (Auto) (0.0-0.4) % Neut % (Auto) (45-73) % Lymph % (Auto) (20-40) % Treasure % (Auto) (2-11) % Eos % (Auto) (0-4) % Baso % (Auto) (0-2) % Lymph # (Auto) (1.2-4.9) X10*3/uL Treasure # (Auto) (0.1-1.2) X10*3/uL Eos # (Auto) (0.0-0.4) X10*3/uL Baso # (Auto) (0.0-0.2) X10*3/uL Abs Immat Gran (auto) (0.00-0.03) X10*3/uL Absolute Neuts (auto) (2.0-8.3) x10*3/uL Absolute Nucleated RBC (0.0-0.012) X10*3/uL Nucleated RBC % (auto) (0.0-0.2) /100WBC VBG pH (7.32-7.43) VBG pCO2 mmHg VBG pO2 mmHg VBG HCO3 (22-26) mmol/L VBG O2 Saturation % VBG Base Excess mmol/L Sodium (135-145) mmol/L Potassium (3.3-5.1) mmol/L Chloride (96-108) mmol/L Carbon Dioxide (22-29) mmol/L Anion Gap (12-20) BUN (9-16) mg/dL Creatinine (0.5-1.4) mg/dL Estim Creat Clear Calc Estimated GFR POC Glucose 318 H (60-115) mg/dL Random Glucose (60-115) mg/dL Lactic Acid (0.5-2.0) mmol/L Calcium (8.4-10.2) mg/dL Magnesium (1.6-2.6) mg/dL Total Bilirubin (0.0-1.0) mg/dL AST (5-31) U/L ALT (0-31) U/L Alkaline Phosphatase (39-117) U/L Total Protein (6.5-8.0) g/dL Albumin (3.5-5.0) g/dL Urine Color Yellow Urine Appearance Turbid Urine pH 5.0 (5.0-9.0) Ur Specific [place] 1.020 (1.005-1.025) Urine Protein 100 (2+) H (Neg-Trace) mg/dL Urine Glucose (UA) >=1000 H (Negative) mg/dL Urine Ketones Trace (Negative) mg/dL Urine Blood Moderate (2+) H (Negative) Urine Nitrite Negative (Negative) Ur Leukocyte Esterase Moderate (2+) H (Negative) Urine RBC 0-2 (0-2) /HPF Urine WBC >50 H (0-5) /HPF Ur Squamous Epith Cells 0-2 (0-2) /HPF Urine Bacteria 4+ (None Seen) Hyaline Casts 3-5 (0-2) /LPF Salicylates (15-30) mg/dL Urine Opiates Screen (Not Detect) Urine Fentanyl Screen (Not Detect) Acetaminophen (<30) mcg/mL Ur Barbiturates Screen (Not Detect) Ur Phencyclidine Scrn (Not Detect) Ur Amphetamines Screen (Not Detect) U Benzodiazepines Scrn (Not Detect) Urine Cocaine Screen (Not Detect) U Marijuana (THC) Screen (Not Detect) Ethyl Alcohol mg/dL Acetone, Qual (Negative) COVID-19 (RICKY) (Negative) COVID-19 Clin Com Influenza Type A (GIORGIO) Negative (Negative) Influenza Type B (GIORGIO) Negative (Negative) Influenza A & B Note See Note 06/07/22 06/07/22 Range/Units 00:51 00:52 WBC (4.8-10.8) X10*3/uL RBC (4.20-5.50) X10*6/uL Hgb (12.0-16.0) g/dl Hct (37.0-47.0) % MCV (80.0-98.0) fL MCH (27.0-33.0) pg MCHC (31.0-35.0) g/dl RDW (11.0-16.0) % Plt Count (160-400) X10*3/uL MPV (9.4-12.3) fL Immature Gran % (Auto) (0.0-0.4) % Neut % (Auto) (45-73) % Lymph % (Auto) (20-40) % Treasure % (Auto) (2-11) % Eos % (Auto) (0-4) % Baso % (Auto) (0-2) % Lymph # (Auto) (1.2-4.9) X10*3/uL Treasure # (Auto) (0.1-1.2) X10*3/uL Eos # (Auto) (0.0-0.4) X10*3/uL Baso # (Auto) (0.0-0.2) X10*3/uL Abs Immat Gran (auto) (0.00-0.03) X10*3/uL Absolute Neuts (auto) (2.0-8.3) x10*3/uL Absolute Nucleated RBC (0.0-0.012) X10*3/uL Nucleated RBC % (auto) (0.0-0.2) /100WBC VBG pH (7.32-7.43) VBG pCO2 mmHg VBG pO2 mmHg VBG HCO3 (22-26) mmol/L VBG O2 Saturation % VBG Base Excess mmol/L Sodium (135-145) mmol/L Potassium (3.3-5.1) mmol/L Chloride (96-108) mmol/L Carbon Dioxide (22-29) mmol/L Anion Gap (12-20) BUN (9-16) mg/dL Creatinine (0.5-1.4) mg/dL Estim Creat Clear Calc Estimated GFR POC Glucose (60-115) mg/dL Random Glucose (60-115) mg/dL Lactic Acid 2.9 H* (0.5-2.0) mmol/L Calcium (8.4-10.2) mg/dL Magnesium (1.6-2.6) mg/dL Total Bilirubin (0.0-1.0) mg/dL AST (5-31) U/L ALT (0-31) U/L Alkaline Phosphatase (39-117) U/L Total Protein (6.5-8.0) g/dL Albumin (3.5-5.0) g/dL Urine Color Urine Appearance Urine pH (5.0-9.0) Ur Specific [place] (1.005-1.025) Urine Protein (Neg-Trace) mg/dL Urine Glucose (UA) (Negative) mg/dL Urine Ketones (Negative) mg/dL Urine Blood (Negative) Urine Nitrite (Negative) Ur Leukocyte Esterase (Negative) Urine RBC (0-2) /HPF Urine WBC (0-5) /HPF Ur Squamous Epith Cells (0-2) /HPF Urine Bacteria (None Seen) Hyaline Casts (0-2) /LPF Salicylates (15-30) mg/dL Urine Opiates Screen Not Detected (Not Detect) Urine Fentanyl Screen Not Detected (Not Detect) Acetaminophen (<30) mcg/mL Ur Barbiturates Screen Not Detected (Not Detect) Ur Phencyclidine Scrn Not Detected (Not Detect) Ur Amphetamines Screen Not Detected (Not Detect) U Benzodiazepines Scrn Not Detected (Not Detect) Urine Cocaine Screen Not Detected (Not Detect) U Marijuana (THC) Screen Not Detected (Not Detect) Ethyl Alcohol mg/dL Acetone, Qual (Negative) COVID-19 (RICKY) (Negative) COVID-19 Clin Com Influenza Type A (GIORGIO) (Negative) Influenza Type B (GIORGIO) (Negative) Influenza A & B Note Critical Care Time Critical Care Time Critical Care Time: No Discharge Plan Discharge Clinical Impression: Hyperglycemia, UTI (urinary tract infection), Depression Patient Disposition: Admitted As Inpatient
[2022-06-06 17:20] LABS: Glucose, Whole Blood 410 mg/dL (60-115)
[2022-06-06 17:30] VITALS: BP 152/88; PULSE 68; O2SAT 99
[2022-06-06 17:55] VITALS: BP 149/72; PULSE 93; RESP 16; TEMP 36.8; O2SAT 99; BMI 23.8
[2022-06-06 18:14] LABS: MANUAL DIFF FLAG NO
[2022-06-06 18:15] LABS: VBG Base Excess 7.4 mmol/L; VBG HCO3 33 mmol/L (22-26); VBG pCO2 53 mmHg; VBG pO2 50 mmHg
[2022-06-06 18:17] LABS: Basophils Percent Auto 0.3 % (0-2); Eosinophils Absolute Auto 0.1 X10*3/uL (0.0-0.4); Eosinophils Percent Auto 0.5 % (0-4); Hematocrit 30.1 % (37.0-47.0); Hemoglobin 10.1 g/dl (12.0-16.0); Imm Gran Abs Auto 0.06 X10*3/uL (0.00-0.03); Imm Gran Pct Auto 0.5 % (0.0-0.4); Lymphocytes Absolute Auto 2.7 X10*3/uL (1.2-4.9); Lymphocytes Percent Auto 20.4 % (20-40); Mean Corpuscular HGB Conc 33.6 g/dl (31.0-35.0); Mean Corpuscular Hemoglobin 28.4 pg (27.0-33.0); Mean Corpuscular Volume 84.6 fL (80.0-98.0); Mean Platelet Volume 8.9 fL (9.4-12.3); Monocytes Absolute Auto 0.6 X10*3/uL (0.1-1.2); Monocytes Percent Auto 4.4 % (2-11); Neutrophils Absolute Auto 9.6 x10*3/uL (2.0-8.3); Neutrophils Percent Auto 73.9 % (45-73); Platelet Count 259 X10*3/uL (160-400); Red Blood Count 3.56 X10*6/uL (4.20-5.50); Red Cell Distribution Width 12.8 % (11.0-16.0); White Blood Count 13.1 X10*3/uL (4.8-10.8)
[2022-06-06 18:17] LABS: Venous Blood Gas Refer to POC result
[2022-06-06] MEDS: 0.9 % Sodium Chloride 1,000 ML 999 ML IV ×2 (18:20→21:58)
[2022-06-06 18:37] LABS: Acetone, serum QL Small (Negative)
[2022-06-06 18:42] LABS: COVID-19 Test Negative (Negative); IDNOW Serial# 55D5AD1C
--- NOTE | 2022-06-06 18:48 | PHA.MEDREC ---
Pharmacy Consult ? Medication Reconciliation Pharmacy has completed the medication reconciliation. Pt denies taking any medications
--- OUTSIDE RECORDS SUMMARY | 2022-06-06 19:00 | XMS_ITS | Continuity of Care Document ---
:1970 Author Organization [facility] Address [address] [place] [address]- Care Team Providers Name Role Phone Lois Gómez MD, Neelima Milton Primary Care Physician Encounter 04/06/21 - 04/25/21 [facility] [address] [place] [address]- Discharge Disposition: NON COMPLIANT WITH PLAN OF TREATMENT Allergies, Adverse Reactions, Alerts Substance Reaction Severity Status NKA Active Medications Alcohol Pads See Instructions, # 600 each, Refills 2, Tot. Refills 2, Maintenance, TO CHECK POC FOUR TIMES A DAY,11/16/19 14:32:00 EDT, Supply, 162, cm, 11/16/19 8:17:00 EDT, Height, 67.4, kg, 11/07/19 3:27:00 EDT, Dry Weight Start Date: 11/16/19 Stop Date: 08/12/20 Status: OrderedAspirin Enteric Coated 81 mg oral delayed release tablet 1 tablet = 81 mg, By Mouth, Daily, TAKE 1 TABLET BY MOUTH AT BEDTIME, # 30 tablet, 1 Refills, Maintenance, 11/16/19 14:29:00 EDT, EC Tablet, [facility], 162, cm, 11/16/19 8:17:00 EDT, Height, 67.4, kg, 11/07/19 3:27:00 EDT, Dry Weight Start Date: 11/16/19 Stop Date: 01/15/20 Status: Orderedatorvastatin 80 mg oral tablet 1 tablet = 80 mg, By Mouth, Daily, TAKE 1 TABLET BY MOUTH AT BEDTIME, # 30 tablet, 1 Refills, Maintenance, 11/16/19 14:29:00 EDT, Tablet, [facility], 162, cm, 11/16/19 8:17:00 EDT, Height, 67.4, kg, 11/07/19 3:27:00 EDT, Dry Weight Start Date: 11/16/19 Stop Date: 01/15/20 Status: OrderedCalcium 600-Vit D3 800 Tab SM TAKE 1 TABLET BY MOUTH EVERY MORNING Start Date: 11/07/19 Status: OrderedDelte Cozmo Glucometer See Instructions, # 1 each, Maintenance, TO CHECK POC FOUR TIMES A DAY, 11/16/19 14:31:00 EDT, Supply, 162, cm, 11/16/19 8:17:00 EDT, Height, 67.4, kg, 11/07/19 3:27:00 EDT, Dry Weight Start Date: 11/16/19 Status: Orderedergocalciferol 95541 iu oral capsule TAKE 1 CAPSULE BY MOUTH ONCE WEEKLY ON Saturday Start Date: 11/07/19 Status: OrderedFreestyle Lancets See Instructions, # 600 each, Refills 2, Tot. Refills 2, Maintenance, TO CHECK POC FOUR TIMES A DAY,11/16/19 14:33:00 EDT, Supply, 162, cm, 11/16/19 8:17:00 EDT, Height, 67.4, kg, 11/07/19 3:27:00 EDT, Dry Weight Start Date: 11/16/19 Stop Date: 08/12/20 Status: OrderedFreestyle Test Strips See Instructions, # 600 each, Refills 2, Tot. Refills 2, Maintenance, TO CHECK POC FOUR TIMES A DAY,11/16/19 14:32:00 EDT, Supply, 162, cm, 11/16/19 8:17:00 EDT, Height, 67.4, kg, 11/07/19 3:27:00 EDT, Dry Weight Start Date: 11/16/19 Stop Date: 08/12/20 Status: Orderedgabapentin 300 mg oral capsule TAKE 1 CAPSULE BY MOUTH THREE TIMES DAILY Start Date: 11/07/19 Status: Orderedhydrochlorothiazide 25 mg oral tablet 25 mg, 1, tablet, By Mouth, Daily, # 30 tablet, Refills 1, Tot. Refills 1, Maintenance, 11/16/19 14:29:00 EDT, Route to Pharmacy Electronically, [facility], 162, cm, 11/16/19 8:17:00 EDT,Height, 67.4, kg, 11/07/19 3:27:00 EDT, Dry Weight Start Date: 11/16/19 Stop Date: 01/15/20 Status: Orderedinsulin lispro 100 u/ml subcutaneous injection 10-20 units, Subcutaneous Injection, 3 times a day before meals, << Sliding Scale Comments >> << Sliding Scale Comments >>, # 10 mL, 0 Refills, Maintenance, 11/16/19 14:24:00 EDT, Injection, [facility], 100 - 149 10 units Call if le... Start Date: 11/16/19 Stop Date: 12/16/19 Status: Orderedisosorbide mononitrate 30 mg oral tablet, extended release TAKE 1 TABLET BY MOUTH EVERY MORNING Start Date: 11/07/19 Status: OrderedLantus Solostar Pen 100 units/mL subcutaneous solution = 20 units, Subcutaneous Injection, Daily at bedtime, # 10 mL, 0 Refills, Maintenance, 11/16/19 14:22:00 EDT, Solution, [facility], 162, cm, 11/16/19 8:17:00 EDT, Height, 67.4, kg, 11/07/19 3:27:00 EDT, Dry Weight Start Date: 11/16/19 Stop Date: 12/16/19 Status: Orderedlisinopril 40 mg oral tablet 1 tablet = 40 mg, By Mouth, Daily, TAKE 1 TABLET BY MOUTH EVERY MORNING, # 30 tablet, 0 Refills, Maintenance, 11/16/19 14:30:00 EDT, Tablet, [facility], 162, cm, 11/16/19 8:17:00 EDT, Height, 67.4, kg, 11/07/19 3:27:00 EDT, Dry Weight Start Date: 11/16/19 Stop Date: 12/16/19 Status: Orderedomeprazole 20 mg oral enteric coated capsule TAKE 1 CAPSULE BY MOUTH EVERY MORNING Start Date: 11/07/19 Status: OrderedPen [place], 30 G x 8 mm BD Ultra Fine II See Instructions, # 300 each, Refills 2, Tot. Refills 2, Maintenance, TO GIVE INSULIN FOUR TIMES A DAY., 11/16/19 14:33:00 EDT, Supply, 162, cm, 11/16/19 8:17:00 EDT, Height, 67.4, kg, 11/07/19 3:27:00EDT, Dry Weight Start Date: 11/16/19 Stop Date: 08/12/20 Status: Orderedpioglitazone 30 mg oral tablet TAKE 1 TABLET BY MOUTH EVERY MORNING Start Date: 11/07/19 Status: Orderedsertraline 25 mg oral tablet TAKE 1 TABLET BY MOUTH EVERY MORNING Start Date: 11/07/19 Status: OrderedTrueplus 33g Lancets TEST BLOOD SUGAR TWICE DAILY Start Date: 11/07/19 Status: Ordered
--- OUTSIDE RECORDS SUMMARY | 2022-06-06 19:00 | XMS_ITS | Continuity of Care Document ---
:1970 Author Organization [facility] Address [address] [place] [address]- Care Team Providers Name Role Phone Lois Gómez MD, Neelima Milton Primary Care Physician [phone] Encounter [facility] [place] Date(s): 12/23/19 - 01/27/[address] [address]- [facility] Attending Physician: Ramirez Wilcox MD Admitting Physician: Ramirez Wilcox MD Referring Physician: Manuela Painting Allergies, Adverse Reactions, Alerts Substance Reaction Severity [...] Refills, Maintenance, 11/16/19 14:29:00 EDT, EC Tablet, [facility], 162, cm, 11/16/19 8:17:00 EDT, Height, 67.4, kg, 11/07/19 3:27:00 EDT, Dry Weight Start Date: 11/16/19 Stop Date: 01/15/20 Status: Orderedatorvastatin 80 mg oral tablet 1 tablet = 80 mg, By Mouth, Daily, TAKE 1 TABLET BY MOUTH AT BEDTIME, # 30 tablet, 1 Refills, Maintenance, 11/16/19 14:29:00 EDT, Tablet, [facility], 162, cm, 11/16/19 8:17:00 EDT, [...] Dry Weight Start Date: 11/16/19 Status: Orderedergocalciferol 22371 iu oral capsule TAKE 1 CAPSULE BY [...] 11/16/19 14:29:00 EDT, Route to Pharmacy Electronically, [facility], 162, cm, 11/16/19 8:17:00 EDT,Height, 67.4, kg, 11/07/19 3:27:00 EDT, Dry Weight Start Date: 11/16/19 Stop Date: 01/15/20 Status: Orderedinsulin lispro 100 u/ml subcutaneous injection 10-20 units, Subcutaneous Injection, 3 times a day before meals, << Sliding Scale Comments >> << Sliding Scale Comments >>, # 10 mL, 0 Refills, Maintenance, 11/16/19 14:24:00 EDT, Injection, [facility], 100 - 149 10 units Call if le... Start Date: 11/16/19 Stop Date: 12/16/19 Status: Orderedisosorbide mononitrate 30 mg oral tablet, extended release TAKE 1 TABLET BY MOUTH EVERY MORNING Start Date: 11/07/19 Status: OrderedLantus Solostar Pen 100 units/mL subcutaneous solution = 20 units, Subcutaneous Injection, Daily at bedtime, # 10 mL, 0 Refills, Maintenance, 11/16/19 14:22:00 EDT, Solution, [facility], 162, cm, 11/16/19 8:17:00 EDT, Height, [...] EVERY MORNING Start Date: 11/07/19 Status: OrderedPen [place], 30 G x 8 mm BD Ultra [...]
--- OUTSIDE RECORDS SUMMARY | 2022-06-06 19:00 | XMS_ITS | Continuity of Care Document ---
:1970 Author Organization [facility] Address [address] [place] [phone]- Care Team Providers Name Role Phone Lois Gómez MD, Neelima Milton Primary Care Physician Encounter [facility] Date(s): 11/07/19 - 11/16/[address] [address]- [facility] Discharge Disposition: A-Transfer VNA/Home Health Attending Physician: Jarad Hernandez MD Admitting Physician: Lissa Pantoja MD Referring Physician: Lissa Pantoja MD Allergies, Adverse Reactions, Alerts Substance Reaction Severity [...] Refills, Maintenance, 11/16/19 14:29:00 EDT, EC Tablet, [facility], 162, cm, 11/16/19 8:17:00 EDT, Height, 67.4, kg, 11/07/19 3:27:00 EDT, Dry Weight Start Date: 11/16/19 Stop Date: 01/15/20 Status: Orderedatorvastatin 80 mg oral tablet 1 tablet = 80 mg, By Mouth, Daily, TAKE 1 TABLET BY MOUTH AT BEDTIME, # 30 tablet, 1 Refills, Maintenance, 11/16/19 14:29:00 EDT, Tablet, [facility], 162, cm, 11/16/19 8:17:00 EDT, Height, 67.4, kg, 11/07/19 3:27:00 EDT, Dry Weight Start Date: 11/16/19 Stop Date: 01/15/20 Status: OrderedCalcium 600-Vit D3 800 Tab SM TAKE 1 TABLET BY MOUTH EVERY MORNING Start Date: 11/07/19 Status: OrderedDeltec Cozmo Glucometer See Instructions, # 1 each, Maintenance, TO CHECK POC FOUR TIMES A DAY, 11/16/19 14:31:00 EDT, Supply, 162, cm, 11/16/19 8:17:00 EDT, Height, 67.4, kg, 11/07/19 3:27:00 EDT, Dry Weight Start Date: 11/16/19 Status: Orderedergocalciferol 80559 iu oral capsule TAKE 1 CAPSULE BY [...] 11/16/19 14:29:00 EDT, Route to Pharmacy Electronically, [facility], 162, cm, 11/16/19 8:17:00 EDT,Height, 67.4, kg, 11/07/19 3:27:00 EDT, Dry Weight Start Date: 11/16/19 Stop Date: 01/15/20 Status: Orderedinsulin lispro 100 u/ml subcutaneous injection 10-20 units, Subcutaneous Injection, 3 times a day before meals, << Sliding Scale Comments >> << Sliding Scale Comments >>, # 10 mL, 0 Refills, Maintenance, 11/16/19 14:24:00 EDT, Injection, [facility], 100 - 149 10 units Call if le... Start Date: 11/16/19 Stop Date: 12/16/19 Status: Orderedisosorbide mononitrate 30 mg oral tablet, extended release TAKE 1 TABLET BY MOUTH EVERY MORNING Start Date: 11/07/19 Status: OrderedLantus Solostar Pen 100 units/mL subcutaneous solution = 20 units, Subcutaneous Injection, Daily at bedtime, # 10 mL, 0 Refills, Maintenance, 11/16/19 14:22:00 EDT, Solution, [facility], 162, cm, 11/16/19 8:17:00 EDT, Height, 67.4, kg, 11/07/19 3:27:00 EDT, Dry Weight Start Date: 11/16/19 Stop Date: 12/16/19 Status: OrderedlevoFLOXacin 750 mg oral tablet 1 tablet = 750 mg, By Mouth, Every 24 hours, for 5 days, # 5 tablet, 0 Refills, Acute 11/21/19 14:30:00 EDT, 11/16/19 14:30:00 EDT, Tablet, [facility], 162, cm, 11/16/19 8:17:00 EDT, Height, 67.4, kg, 11/07/19 3:27:00 EDT, Dry Weight Start Date: 11/16/19 Stop Date: 11/21/19 Status: Orderedlisinopril 40 mg oral tablet 1 tablet = 40 mg, By Mouth, Daily, TAKE 1 TABLET BY MOUTH EVERY MORNING, # 30 tablet, 0 Refills, Maintenance, 11/16/19 14:30:00 EDT, Tablet, [facility], 162, cm, 11/16/19 8:17:00 EDT, Height, 67.4, kg, 11/07/19 3:27:00 EDT, Dry Weight Start Date: 11/16/19 Stop Date: 12/16/19 Status: Orderedomeprazole 20 mg oral enteric coated capsule TAKE 1 CAPSULE BY MOUTH EVERY MORNING Start Date: 11/07/19 Status: OrderedPen [place], 30 G x 8 mm BD Ultra [...] TWICE DAILY Start Date: 11/07/19 Status: Ordered Results Orders for Microbiology Reports Name Date Blood Culture 11/10/19 Blood Culture #2 11/10/19 Urine Culture 11/07/19 Microbiology Reports TEST:Blood Culture STATUS:Auth (Verified) BODY SITE: SOURCE:Blood COLLECTED DATE/TIME:11/10/19 3:01 PMBlood Culture SPECIMEN DESCRIPTION : BLOOD L HAND SPECIAL REQUESTS : NONE CULTURE : NO GROWTH 5 DAYS. REPORT STATUS : FINAL 11/15/2019TEST:Blood Culture, Second Order STATUS:Auth (Verified) BODY SITE: SOURCE:Blood COLLECTED DATE/TIME:11/10/19 3:01 PMBlood Culture, Second Order SPECIMEN DESCRIPTION : BLOOD R HAND SPECIAL REQUESTS : NONE CULTURE : NO GROWTH 5 DAYS. REPORT STATUS : FINAL 11/15/2019TEST:Urine Culture STATUS:Modified/Amended/Corrected BODY SITE: SOURCE:KIDNEY COLLECTED DATE/TIME:11/07/19 12:58 PMUrine Culture SPECIMEN DESCRIPTION : KIDNEY URINE, RIGHT SPECIAL REQUESTS : NONE CULTURE : Mixed bacterial naz, characteristic of urogenital contamination. Please consult laboratory ([id number]) within 24 hours of receipt of result if more definitive studies may be clinically indicated. DISREGARD FINAL REPORT ON 11/08/19 CULTURE WORKUP IN PROGRESS 50-100,000 COL/ML ESCHERICHIA COLI REPORT STATUS : FINAL 11/09/2019 ORGANISM 50-100,000 COL/ML ESCHERICHIA COLI METHOD MIN. INHIB. CONC. (MCG/ML) AMPICILLIN SUSCEPTIBLE AMPICILLIN/SULBACTAM SUSCEPTIBLE AMOXICILLIN/CLAVULAN SUSCEPTIBLE CEFAZOLIN SUSCEPTIBLE CEFEPIME SUSCEPTIBLE CEFTRIAXONE SUSCEPTIBLE CIPROFLOXACIN SUSCEPTIBLE ERTAPENEM SUSCEPTIBLE GENTAMICIN SUSCEPTIBLE LEVOFLOXACIN SUSCEPTIBLE MEROPENEM SUSCEPTIBLE PIPERACILLIN/TAZOBAC SUSCEPTIBLE TRIMETH/SULFAMETHOX SUSCEPTIBLE TETRACYCLINE SUSCEPTIBLERadiology Reports Exam Date Time Procedure Performing Provider Status 11/10/19 1:19 PM Chest Portable Taco Tamez; Latha (Verified ) Notes:(Chest Portable) Reason For Exam: chest pain;Other:RESULT: Chest Portable Chest Portable INDICATION: chest pain; Clinical Question(s): Pneumonia / Pneumonia COMPARISON: None. FINDINGS: LINES AND TUBES: None. LUNGS AND PLEURA: The central pulmonary vasculature is prominent and indistinct. Right larger than left pleural effusions with underlying atelectasis. No pneumothorax. HEART, MEDIASTINUM AND NIRAJ: Heart is normal in size. Normal mediastinal and hilar contour. BONES AND SOFT TISSUES: No acute abnormality. There are surgical clips in the right upper quadrant. IMPRESSION: Mild pulmonary edema with right larger than left pleural effusions. WSN: [id number] Ordering Physician: Dari Jones Dictated By: Az Jo MD Dictated Date/Time: 11/10/19 2:01 pm Reviewed By: Az Jo MD Signed By: Az Jo MD Signed Date/Time: 11/10/19 2:01 pm Transcribed By: TIFFANIE Transcribed Date/Time: 11/10/19 2:00 pm Vital Signs Most recent to oldest 1 2 3 [Reference Range]: Height 162 cm 162 cm 162 cm (11/16/19 3:29 PM) (11/16/19 8:17 AM) (11/16/19 12: 50 AM) Weight 74.6 kg 67.4 kg 67.4 kg (11/12/19 6:21 AM) (11/07/19 3:27 AM) (11/07/19 3:27 A M) Oxygen Saturation 92 % 92 % 94 % [94-100 %] *L* *L* (11/16/19 12:50 A M) (11/16/19 3:29 PM) (11/16/19 8:17 AM) Pulse Rate [55-90 bpm] 89 bpm 87 bpm 89 bpm (11/16/19 3:29 PM) (11/16/19 8:17 AM) (11/16/19 12: 50 AM) Body Mass Index 25.68 [18.5-24.99] *H* (11/07/19 3:27 AM) Blood Pressure 106/54 mm Hg 96/50 mm Hg 103/58 mm Hg [90-138/55-84 mm Hg] (11/16/19 3:29 PM) (11/16/19 8:17 AM) ( 0 12:50 AM) Respiratory Rate [16-30 16 br/min 20 br/min 19 br/mi n br/min] (11/16/19 3:29 PM) (11/16/19 3:13 PM) (11/16/19 2:1 3 PM) Temperature [96.8-100.4 98.1 DegF 99.6 DegF 98.5 Deg F DegF] (11/16/19 3:29 PM) (11/16/19 2:00 PM) (11/16/19 8:1 7 AM) Liters per Minute 1.5 L/min 1.5 L/min 1.5 L/min (11/13/19 12:00 AM) (11/12/19 8:00 PM) (11/12/19 4:45 PM) Mode of Delivery Room air Room air Room air (Oxygen) (11/16/19 3:29 PM) (11/16/19 8:17 AM) (11/16/19 12: 50 AM) Blood pressure sites Arm, left Arm, left Arm, right (11/16/19 3:29 PM) (11/16/19 8:17 AM) (11/15/19 5:2 4 PM) Temperature Route Oral Axillary Oral (11/16/19 3:29 PM) (11/16/19 2:00 PM) (11/16/19 8:1 7 AM) Dry Weight 67.4 kg (11/07/19 3:27 AM) Weight Obtained Via Bed scale Bed scale (11/07/19 3:27 AM) (11/07/19 3:27 AM) Mobility assistance Partial assistance Other: pt on bedrst Parti al assistance (11/08/19 8:46 PM) (11/08/19 9:33 AM) (11/07/19 8:08 P M)
--- OUTSIDE RECORDS SUMMARY | 2022-06-06 19:00 | XMS_ITS | Continuity of Care Document ---
:1970 Author Organization [facility] Address [address] [place] [id number]- Care Team Providers Name Role Phone Neelima Brown MD Primary Care Physician Encounter [facility] [place] AC[facility] R [id number] Date(s): 11/27/19 - 11/27/[address] [address]- [facility] Discharge Disposition: A-D/C Home Attending Physician: Akash Klein MD Admitting Physician: Akash Klein MD Referring Physician: Akash Klein MD Allergies, Adverse Reactions, Alerts Substance Reaction [...] Refills, Maintenance, 11/16/19 14:29:00 EDT, EC Tablet, [facility], 162, cm, 11/16/19 8:17:00 EDT, Height, 67.4, kg, 11/07/19 3:27:00 EDT, Dry Weight Start Date: 11/16/19 Stop Date: 01/15/20 Status: Orderedatorvastatin 80 mg oral tablet 1 tablet = 80 mg, By Mouth, Daily, TAKE 1 TABLET BY MOUTH AT BEDTIME, # 30 tablet, 1 Refills, Maintenance, 11/16/19 14:29:00 EDT, Tablet, [facility], 162, cm, 11/16/19 8:17:00 EDT, Height, 67.4, kg, 11/07/19 3:27:00 EDT, Dry Weight Start Date: 11/16/19 Stop Date: 01/15/20 Status: OrderedCalcium 600-Vit D3 800 Tab SM TAKE 1 TABLET BY MOUTH EVERY MORNING Start Date: 11/07/19 Status: [facility] Glucom[facility] See Instructions, # 1 each, Maintenance, TO CHECK POC FOUR TIMES A DAY, 11/16/19 14:31:00 EDT, Supply, 162, cm, 11/16/19 8:17:00 EDT, Height, 67.4, kg, 11/07/19 3:27:00 EDT, Dry Weight Start Date: 11/16/19 Status: Orderedergocalciferol 35230 iu oral capsule TAKE 1 CAPSULE BY [...] 11/16/19 14:29:00 EDT, Route to Pharmacy Electronically, [facility], 162, cm, 11/16/19 8:17:00 EDT,Height, 67.4, kg, 11/07/19 3:27:00 EDT, Dry Weight Start Date: 11/16/19 Stop Date: 01/15/20 Status: Orderedinsulin lispro 100 u/ml subcutaneous injection 10-20 units, Subcutaneous Injection, 3 times a day before meals, << Sliding Scale Comments >> << Sliding Scale Comments >>, # 10 mL, 0 Refills, Maintenance, 11/16/19 14:24:00 EDT, Injection, [facility], 100 - 149 10 units Call if le... Start Date: 11/16/19 Stop Date: 12/16/19 Status: Orderedisosorbide mononitrate 30 mg oral tablet, extended release TAKE 1 TABLET BY MOUTH EVERY MORNING Start Date: 11/07/19 Status: OrderedLantus Solostar Pen 100 units/mL subcutaneous solution = 20 units, Subcutaneous Injection, Daily at bedtime, # 10 mL, 0 Refills, Maintenance, 11/16/19 14:22:00 EDT, Solution, [facility], 162, cm, 11/16/19 8:17:00 EDT, Height, 67.4, kg, 11/07/19 3:27:00 EDT, Dry Weight Start Date: 11/16/19 Stop Date: 12/16/19 Status: Orderedlisinopril 40 mg oral tablet 1 tablet = 40 mg, By Mouth, Daily, TAKE 1 TABLET BY MOUTH EVERY MORNING, # 30 tablet, 0 Refills, Maintenance, 11/16/19 14:30:00 EDT, Tablet, [facility], 162, cm, 11/16/19 8:17:00 EDT, Height, 67.4, kg, 11/07/19 3:27:00 EDT, Dry Weight Start Date: 11/16/19 Stop Date: 12/16/19 Status: Orderedomeprazole 20 mg oral enteric coated capsule TAKE 1 CAPSULE BY MOUTH EVERY MORNING Start Date: 11/07/19 Status: OrderedPen [place], 30 G x 8 mm BD Ultra [...] TWICE DAILY Start Date: 11/07/19 Status: Ordered Vital Signs Most recent to oldest [Reference Range]: 1 2 Height 162 cm (11/27/19 10:19 AM) Weight 72.7 kg (11/27/19 10:19 AM) Oxygen Saturation [94-100 %] 98 % (11/27/19 10:04 AM) Pulse Rate [55-90 bpm] 86 bpm (11/27/19 10:04 AM) Blood Pressure [90-138/55-84 mm Hg] 182/83 mm Hg 182/ 83 mm Hg *H* *H* (11/27/19 10:22 AM) (11/27/19 10:04 AM) Respiratory Rate [16-30 br/min] 18 br/min (11/27/19 10:04 AM) Temperature [96.8-100.4 DegF] 98.2 DegF (11/27/19 10:04 AM) Mode of Delivery (Oxygen) Room air (11/27/19 10:04 AM) Blood pressure sites Arm, right Arm, left (11/27/19 10:22 AM) (11/27/19 10:04 AM) Temperature Route Oral (11/27/19 10:04 AM) Dry Weight 72.7 kg (11/27/19 10:19 AM)
--- OUTSIDE RECORDS SUMMARY | 2022-06-06 19:00 | XMS_ITS | Continuity of Care Document ---
:1970 Author Organization [facility] Address [address] [place] [address]- Care Team Providers Name Role Phone Lois Gómez MD, Neelima Milton Primary Care Physician Encounter 11/17/19 - 12/28/19 [facility] [address] [place] [address]- [facility] Discharge Disposition: GOALS MET Referring Physician: Manuela Painting Allergies, Adverse Reactions, [...] Refills, Maintenance, 11/16/19 14:29:00 EDT, EC Tablet, [facility], 162, cm, 11/16/19 8:17:00 EDT, Height, 67.4, kg, 11/07/19 3:27:00 EDT, Dry Weight Start Date: 11/16/19 Stop Date: 01/15/20 Status: Orderedatorvastatin 80 mg oral tablet 1 tablet = 80 mg, By Mouth, Daily, TAKE 1 TABLET BY MOUTH AT BEDTIME, # 30 tablet, 1 Refills, Maintenance, 11/16/19 14:29:00 EDT, Tablet, [facility], 162, cm, 11/16/19 8:17:00 [...] Dry Weight Start Date: 11/16/19 Status: Orderedergocalciferol 74803 iu oral capsule TAKE 1 CAPSULE BY [...] 11/16/19 14:29:00 EDT, Route to Pharmacy Electronically, [facility], 162, cm, 11/16/19 8:17:00 EDT,Height, 67.4, kg, 11/07/19 3:27:00 EDT, Dry Weight Start Date: 11/16/19 Stop Date: 01/15/20 Status: Orderedinsulin lispro 100 u/ml subcutaneous injection 10-20 units, Subcutaneous Injection, 3 times a day before meals, << Sliding Scale Comments >> << Sliding Scale Comments >>, # 10 mL, 0 Refills, Maintenance, 11/16/19 14:24:00 EDT, Injection, [facility], 100 - 149 10 units Call if le... Start Date: 11/16/19 Stop Date: 12/16/19 Status: Orderedisosorbide mononitrate 30 mg oral tablet, extended release TAKE 1 TABLET BY MOUTH EVERY MORNING Start Date: 11/07/19 Status: OrderedLantus Solostar Pen 100 units/mL subcutaneous solution = 20 units, Subcutaneous Injection, Daily at bedtime, # 10 mL, 0 Refills, Maintenance, 11/16/19 14:22:00 EDT, Solution, [facility], 162, cm, 11/16/19 8:17:00 EDT, Height, 67.4, kg, 11/07/19 3:27:00 EDT, Dry Weight Start Date: 11/16/19 Stop Date: 12/16/19 Status: Orderedlisinopril 40 mg oral tablet 1 tablet = 40 mg, By Mouth, Daily, TAKE 1 TABLET BY MOUTH EVERY MORNING, # 30 tablet, 0 Refills, Maintenance, 11/16/19 14:30:00 EDT, Tablet, [facility] 3, 162, cm, 11/16/19 8:17:00 EDT, Height, 67.4, kg, 11/07/19 3:27:00 EDT, Dry Weight Start Date: 11/16/19 Stop Date: 12/16/19 Status: Orderedomeprazole 20 mg oral enteric coated capsule TAKE 1 CAPSULE BY MOUTH EVERY MORNING Start Date: 11/07/19 Status: OrderedPen [place], 30 G x 8 mm BD Ultra [...]
--- OUTSIDE RECORDS SUMMARY | 2022-06-06 19:00 | XMS_ITS | Continuity of Care Document ---
:1970 Author Organization [facility] Address [address] [place] [address]- Care Team Providers Name Role Phone Lois Gómez MD, Neelima Milton Primary Care Physician Encounter [facility] Date(s): 11/14/19 - 12/14/[address] [address]- [facility] Attending Physician: Not on Staff, Attending MD Admitting Physician: Not on Staff, Admitting MD Referring Physician: Not on Staff, Referring MD Allergies, Adverse Reactions, Alerts Substance Reaction [...] Refills, Maintenance, 11/16/19 14:29:00 EDT, EC Tablet, [facility], 162, cm, 11/16/19 8:17:00 EDT, Height, 67.4, kg, 11/07/19 3:27:00 EDT, Dry Weight Start Date: 11/16/19 Stop Date: 01/15/20 Status: Orderedatorvastatin 80 mg oral tablet 1 tablet = 80 mg, By Mouth, Daily, TAKE 1 TABLET BY MOUTH AT BEDTIME, # 30 tablet, 1 Refills, Maintenance, 11/16/19 14:29:00 EDT, Tablet, [facility], 162, cm, 11/16/19 8:17:00 EDT, [...] Dry Weight Start Date: 11/16/19 Status: Orderedergocalciferol 23719 iu oral capsule TAKE 1 CAPSULE BY [...] 11/16/19 14:29:00 EDT, Route to Pharmacy Electronically, [facility] 3, 162, cm, 11/16/19 8:17:00 EDT,Height, 67.4, kg, 11/07/19 3:27:00 EDT, Dry Weight Start Date: 11/16/19 Stop Date: 01/15/20 Status: Orderedinsulin lispro 100 u/ml subcutaneous injection 10-20 units, Subcutaneous Injection, 3 times a day before meals, << Sliding Scale Comments >> << Sliding Scale Comments >>, # 10 mL, 0 Refills, Maintenance, 11/16/19 14:24:00 EDT, Injection, [facility] 3, 100 - 149 10 units Call if le... Start Date: 11/16/19 Stop Date: 12/16/19 Status: Orderedisosorbide mononitrate 30 mg oral tablet, extended release TAKE 1 TABLET BY MOUTH EVERY MORNING Start Date: 11/07/19 Status: OrderedLantus Solostar Pen 100 units/mL subcutaneous solution = 20 units, Subcutaneous Injection, Daily at bedtime, # 10 mL, 0 Refills, Maintenance, 11/16/19 14:22:00 EDT, Solution, [facility] 3, 162, cm, 11/16/19 8:17:00 EDT, Height, 67.4, kg, 11/07/19 3:27:00 EDT, Dry Weight Start Date: 11/16/19 Stop Date: 12/16/19 Status: Orderedlisinopril 40 mg oral tablet 1 tablet = 40 mg, By Mouth, Daily, TAKE 1 TABLET BY MOUTH EVERY MORNING, # 30 tablet, 0 Refills, Maintenance, 11/16/19 14:30:00 EDT, Tablet, [facility] 3, 162, cm, 11/16/19 8:17:00 EDT, Height, 67.4, kg, 11/07/19 3:27:00 EDT, Dry Weight Start Date: 11/16/19 Stop Date: 12/16/19 Status: Orderedomeprazole 20 mg oral enteric coated capsule TAKE 1 CAPSULE BY MOUTH EVERY MORNING Start Date: 11/07/19 Status: OrderedPen Addison, 30 G x 8 mm BD Ultra [...]
[2022-06-06 19:12] LABS: Acetaminophen LAB < 17 mcg/mL (<30); Alanine Aminotransferase < 6 U/L (0-31); Albumin Level 3.1 g/dL (3.5-5.0); Alkaline Phosphatase 116 U/L (39-117); Anion Gap 13 (12-20); Aspartate Amino Transferase 7 U/L (5-31); Bilirubin Total 0.4 mg/dL (0.0-1.0); Blood Urea Nitrogen 18 mg/dL (9-16); Carbon Dioxide 29 mmol/L (22-29); Chloride 92 mmol/L (96-108); Estimated Glomerular Filt Rate > 60; Ethanol < 10 mg/dL; Glucose Random 430 mg/dL (60-115); Magnesium 2.1 mg/dL (1.6-2.6); Potassium 3.8 mmol/L (3.3-5.1); Salicylate < 5.0 mg/dL (15-30); Sodium 130 mmol/L (135-145)
[2022-06-06 19:40] VITALS: BP 177/89; PULSE 99; RESP 16; TEMP 36.8; O2SAT 98
--- NOTE | 2022-06-06 19:41 | MHC.EDTECH ---
2000 ROUNDING AND VITALS SIGN TAKEN ,PT GOT CHANGE INTO HOSPITAL ATTIRE ,PT WAS GIVEN TURKEY DINNER ATE 100 % ,DRANK 600 ML FLUIDS .
[2022-06-06] MEDS: Insulin Regular, Human 100 UNIT/ML 3 ML VIAL 10 UNIT IVPUSH (20:35)
--- NOTE | 2022-06-06 20:39 | PC.NURSE ---
Nursing Assessment: Pt's V/S are stable, pt is a/o x4. Pt is hyperglycemia, feeling dizzy, weakness, diarrhea uncontrolled, and dry mouth. POC was taken 488, this nurse will notified provider. 10 u of insulin was pushed. This nurse changd bed sheets and provided pt with bed bath d/t pt had uncontrolled diarrhea.
[2022-06-06 20:46] LABS: Glucose, Whole Blood 488 mg/dL (60-115)
[2022-06-06 21:38] VITALS: BP 140/63; PULSE 114; RESP 16; TEMP 37.2; O2SAT 98
[2022-06-06] MEDS: Insulin Regular, Human 100 UNIT/ML 3 ML VIAL IVPUSH (21:58)
--- NOTE | 2022-06-06 22:04 | PC.NURSE ---
Nursing re-assessment: Pt's BP is hypertensive, Pt was connected to the polymerization supervisor d/t pt is sinus tachy, hyperglycemia, chills, afibrile, dry mouth.
[2022-06-06 22:41] LABS: Glucose, Whole Blood 260 mg/dL (60-115)
[2022-06-06 23:09] LABS: Glucose, Whole Blood 291 mg/dL (60-115)
[2022-06-06 23:49] VITALS: PULSE 125
[2022-06-07] VITALS (27 sets, daily range): BP systolic 94–198; BP diastolic 42–90; PULSE 85–126; RESP 12–24; TEMP 36.2–39.4; O2SAT 96–100
--- NOTE | 2022-06-07 | PC.NURSE ---
Nursing re-assessment: Pt's BP is hypertensive, this nurse schedule POC very hour, pt is complaining of overall not feeling well. Pt has bowel sound all throughout, and soft abd.
--- NOTE | 2022-06-07 | ECG_ITS ---
Test Reason : TACYCARDIA Blood Pressure : / mmHG Vent. Rate : 122 BPM Atrial Rate : 122 BPM P-R Int : 136 ms QRS Dur : 070 ms QT Int : 308 ms P-R-T Axes : 066 013 032 degrees QTc Int : 438 ms Sinus tachycardia Septal infarct , age undetermined Abnormal ECG When compared with ECG of 16-JUN-2021 12:00, No significant change was found Referred By: Asif Douglass Electronically Signed By:Elpidio Cortez
[2022-06-07] MEDS: Insulin Regular, Human 100 UNIT/ML 3 ML VIAL IVPUSH (00:01)
[2022-06-07 00:30] LABS: Glucose, Whole Blood 318 mg/dL (60-115)
--- NOTE | 2022-06-07 00:36 | MHC.EDTECH ---
When doing Vitals, Patient had a high temp orally. Took temp Rectally, found patient wet. Cleaned and change patient and bedding.
--- NOTE | 2022-06-07 00:46 | P.HPHOSP_ITS ---
History of Present Illness Date of Service: 06/07/22 Chief Complaint: Section 12 This is a 52-year-old male with pertinent history of mood disorder, insulin- dependent diabetes who presents to the emergency department via EMS on section 12. As per EMS, patient was found in her apartment lying in bed and she was se ctioned by the Behavioral Health team and community for not taking her medications. Her apartment was unkempt. Patient not showering and not taking care of herself. Patient states she has not been taking her med medications including insulin. Patient denies any complaints at this time. No suicidal or homicidal ideations. In the emergency department, patient was found to be septic and urine was consistent with UTI Review of Systems Constitutional: Constitutional: Reports no additional constitutional complaints Cardiovascular: Cardiovascular: Reports no additional cardiovascular complaints Respiratory: Respiratory: Reports no additional respiratory complaints [facility] Medical History (Updated 06/07/22 @ 01:54 by Sherry Douglass MD) Depression Type 2 diabetes mellitus Family History Other Hypertension Social History Alcohol intake: never Patient Tobacco Use Status: Tobacco use Unknown Smoked in Last 30 Days: No Use of substances other than those prescribed or required for medical reasons: No Advance Directives: No Advance Directives Information Provided: Yes Patient : No service: No Current occupational status: unemployed Meds Allergies Allergy/AdvReac Type Severity Reaction Status Date / Time No Known Allergies Allergy Unverified 01/21/20 16:32 shrimp Allergy Unknown swelling Uncoded 06/21/16 00:00 Active Medications: Current Medications Acetaminophen (Acetaminophen 325 Mg Tablet) 650 mg PO Q6H PRN PRN Reason: Pain, Mild (Pain Scale 1-3) Enoxaparin Sodium (Enoxaparin Sodium 40 Mg/0.4 Ml Syringe) 40 mg SUBCUT Q24H JM Ceftriaxone Sodium 1 gm/ (Sodium Chloride) 50 mls @ 100 mls/hr IV ONCE ONE Stop: 06/07/22 01:05 Sodium Chloride (Ns) 250 mls @ 999 mls/hr IV .Q16M ONE Stop: 06/07/22 00:58 Insulin Glargine (Insulin Glargine,Hum.Rec.Anlog 100 Unit/Ml 10 Ml Vial) 13 unit SUBCUT BEDTIME [facility] Melatonin (Melatonin 3 Mg Tablet) 6 mg PO BEDTIME PRN PRN Reason: Insomnia Ondansetron HCl (Ondansetron Hcl 4 Mg/2 Ml Vial) 4 mg IVPUSH Q8H PRN PRN Reason: Nausea and Vomiting Pharmacy Consult (Consult Rx Perform Med Rec) 1 each MISCELLANE ONCE PRN PRN Reason: Consult order Sodium Chloride (0.9 % Sodium Chloride Flush 3 Ml Syringe) 3 ml IVFLUSH QSHIFT [facility] Home Medications Medication Instructions Recorded Confirmed Last Taken Type No Known Home Meds 06/06/22 06/06/22 Unknown History Physical Exam Vital Signs and Narrative: Vital Signs: Last Vital Signs Temp 103.0 F H 06/07/22 00:35 Pulse 125 H 06/07/22 00:00 Resp 24 H 06/07/22 00:00 BP 169/75 H 06/07/22 00:00 Pulse Ox 96 06/07/22 00:00 O2 Del Method 06/07/22 00:00 BMI result Body Mass Index 23.8 Middle-aged female lying in bed in no distress Neck supple, no JVD Tachycardic with regular rhythm, S1-S2 heard Regular breath sounds bilaterally, no wheezing or crackles appreciated Abdomen soft nontender, no guarding, no rigidity Patient is awake, alert and oriented to self ; no focal motor deficit Psych: Normal mood No pedal edema Results Labs 06/06/22 18:05 06/06/22 18:05 Labs: Laboratory Results - last 24 hr 06/06/22 06/06/22 06/06/22 17:15 18:05 18:05 MCV 84.6 MCH 28.4 MCHC 33.6 RDW 12.8 Plt Count 259 MPV 8.9 L Immature Gran % (Auto) 0.5 H Neut % (Auto) 73.9 H Lymph % (Auto) 20.4 Hughes % (Auto) 4.4 Eos % (Auto) 0.5 Baso % (Auto) 0.3 Lymph # (Auto) 2.7 Hughes # (Auto) 0.6 Eos # (Auto) 0.1 Baso # (Auto) 0.0 Abs Immat Gran (auto) 0.06 H Absolute Neuts (auto) 9.6 H Absolute Nucleated RBC 0.000 Nucleated RBC % (auto) 0.0 VBG pH VBG pCO2 VBG pO2 VBG HCO3 VBG O2 Saturation VBG Base Excess Anion Gap 13 Estim Creat Clear Calc 70.0 Estimated GFR > 60 POC Glucose 410 H* Random Glucose 430 H* Calcium 9.0 D Magnesium 2.1 Total Bilirubin 0.4 AST 7 ALT < 6 Alkaline Phosphatase 116 Total Protein 7.0 Albumin 3.1 L Salicylates < 5.0 L Acetaminophen < 17 Ethyl Alcohol < 10 Acetone, Qual COVID-19 (RICKY) COVID-19 [id number] 06/06/22 06/06/22 06/06/22 18:05 18:05 18:09 MCV MCH MCHC RDW Plt Count MPV Immature Gran % (Auto) Neut % (Auto) Lymph % (Auto) Hughes % (Auto) Eos % (Auto) Baso % (Auto) Lymph # (Auto) Hughes # (Auto) Eos # (Auto) Baso # (Auto) Abs Immat Gran (auto) Absolute Neuts (auto) Absolute Nucleated RBC Nucleated RBC % (auto) VBG pH 7.40 VBG pCO2 53 VBG pO2 50 VBG HCO3 33 H VBG O2 Saturation 77.0 VBG Base Excess 7.4 Anion Gap Estim Creat Clear Calc Estimated GFR POC Glucose Random Glucose Calcium Magnesium Total Bilirubin AST ALT Alkaline Phosphatase Total Protein Albumin Salicylates Acetaminophen Ethyl Alcohol Acetone, Qual Small H COVID-19 (RICKY) Negative [employer] See Note 06/06/22 06/06/22 06/06/22 20:34 22:35 23:04 MCV MCH MCHC RDW Plt Count MPV Immature Gran % (Auto) Neut % (Auto) Lymph % (Auto) Hughes % (Auto) Eos % (Auto) Baso % (Auto) Lymph # (Auto) Hughes # (Auto) Eos # (Auto) Baso # (Auto) Abs Immat Gran (auto) Absolute Neuts (auto) Absolute Nucleated RBC Nucleated RBC % (auto) VBG pH VBG pCO2 VBG pO2 VBG HCO3 VBG O2 Saturation VBG Base Excess Anion Gap Estim Creat Clear Calc Estimated GFR POC Glucose 488 H* 260 H 291 H Random Glucose Calcium Magnesium Total Bilirubin AST ALT Alkaline Phosphatase Total Protein Albumin Salicylates Acetaminophen Ethyl Alcohol Acetone, Qual COVID-19 (RICKY) COVID-19 [id number] 06/07/22 00:23 MCV MCH MCHC RDW Plt Count MPV Immature Gran % (Auto) Neut % (Auto) Lymph % (Auto) Hughes % (Auto) Eos % (Auto) Baso % (Auto) Lymph # (Auto) Hughes # (Auto) Eos # (Auto) Baso # (Auto) Abs Immat Gran (auto) Absolute Neuts (auto) Absolute Nucleated RBC Nucleated RBC % (auto) VBG pH VBG pCO2 VBG pO2 VBG HCO3 VBG O2 Saturation VBG Base Excess Anion Gap Estim Creat Clear Calc Estimated GFR POC Glucose 318 H Random Glucose Calcium Magnesium Total Bilirubin AST ALT Alkaline Phosphatase Total Protein Albumin Salicylates Acetaminophen Ethyl Alcohol Acetone, Qual COVID-19 (RICKY) COVID-19 Clin Com Imaging Radiologist's Impressions: Impressions Chest X-Ray 06/07/22 00:01 IMPRESSION: No acute cardiopulmonary findings. Assessment and Plan (1) Depression: Status: Acute (2) Hyperglycemia: Status: Acute (3) Sepsis: Status: Acute Plan This is a 52-year-old male with pertinent history of mood disorder, insulin- dependent diabetes who presents to the emergency department via EMS on section 12. #. Sepsis due to UTI: Patient resuscitated with IV crystalloids in the ER. Continue empiric IV Rocephin. Lactic acid and blood culture obtained. Follow urine culture #. Acute type A lactic acidosis: due to sepsis #. Insulin-dependent diabetes mellitus 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: Due to noncompliance with antihyperglycemics. Initiating basal plus regimen. #. Major depressive disorder: Noncompliance with medications. Will consult psych for optimization. CARE team on board as patient is on section 12 DVT prophylaxis: Lovenox 40 mg daily Full code Diabetic diet Admit as inpatient and will require two night minimum hospital stay for IV antibiotics Time Spent With Patient Time: Total time managing care of this patient today ____ minutes. Quality Stroke Does the patient have a stroke diagnosis?: No VTE Prior VTE?: No VTE Risk Level:: Medical - moderate - high VTE Device Contraindication: Treatment Not Indicated VTE Drug Contraindication: N/A - Med Ordered
[2022-06-07] MEDS: Insulin Glargine,Hum.rec.anlog 100 UNIT/ML 10 ML VIAL 13 UNIT SUBCUT ×2 (01:05→20:42)
[2022-06-07] MEDS: Acetaminophen 325 MG TABLET 975 MG PO (01:05)
[2022-06-07] MEDS: cefTRIAXone sodium 1 GM in 0.9 % Sodium Chloride 50 ML IV ×2 (01:06→02:08)
[2022-06-07] MEDS: Enoxaparin Sodium 40 MG/0.4 ML SYRINGE SUBCUT (01:07)
[2022-06-07 01:12] LABS: Appearance Urine Turbid; Color Urine Yellow; Glucose Urine UA >=1000 mg/dL (Negative); Leukocyte Esterase Urine Moderate (2+) (Negative); Nitrite Urine Negative (Negative); UMIC TRIGGER UACC YES; Urine Blood Moderate (2+) (Negative); Urine Ketones Trace mg/dL (Negative); Urine Protein 100 (2+) mg/dL (Neg-Trace)
[2022-06-07 01:16] LABS: Lactic Acid 2.9 mmol/L (0.5-2.0)
[2022-06-07 01:19] LABS: Amphetamine Screen Urine Not Detected (Not Detect); Barbiturates, Urine Not Detected (Not Detect); Benzodiazepines Screen Urine Not Detected (Not Detect); Cannabinoid Screen Urine Not Detected (Not Detect); Cocaine Screen Urine Not Detected (Not Detect); Fentanyl, urine Not Detected (Not Detect); Opiate Screen Urine Not Detected (Not Detect); Phencyclidine Screen Urine Not Detected (Not Detect)
[2022-06-07 01:33] LABS: IDNOW Serial# 6674DD1D; Influenza A Negative (Negative); Influenza B2 Negative (Negative)
[2022-06-07 01:41] LABS: Bacteria Urine 4+ (None Seen); RBC Urine 0-2 /HPF (0-2); Squamous Epithelial Cell Urine 0-2 /HPF (0-2); UACC Culture Trigger YES; WBC Urine >50 /HPF (0-5)
[2022-06-07] MEDS: Labetalol HCL 100 MG/20 ML VIAL 10 MG IVPUSH (01:55)
--- NOTE | 2022-06-07 02:03 | PC.NURSE ---
Assessing: Pt's hypertensive , provider has been notified. Provider requested to stop IVF and give IV push beta blockers and IV Tylenol.
[2022-06-07] MEDS: Acetaminophen 1,000 MG/100 ML PIGGYBACK 400 MG IV (02:05)
--- NOTE | 2022-06-07 02:16 | MHC.CARE ---
Please consult CARE Team once pt is medically cleared
[2022-06-07 02:23] LABS: Glucose, Whole Blood 324 mg/dL (60-115)
[2022-06-07 03:00] LABS: Reflex Lactate? Lactic Acid Added
[2022-06-07 03:36] LABS: MANUAL DIFF FLAG NO
--- NOTE | 2022-06-07 03:44 | PC.NURSE ---
Nursing Interventions: Pt's was hypertensive, sinus tachy on the monitor and fibrile rectally. Pt was given IVF 100 ml/hr by Dr. Douglass order verbally d/t the order was not correct. Pt was pronounced sepsis protocol, and this nurse with Tech STACI completed the follow; EKG, Labs, BP, and obtain a urine culture. At that time pt was complaining of headache and this nurse notified the provider. Pt's was given water d/t polydipisia secondary to hyperglycemia. Pt was given meds as order. Pt's BP is now stable, and it shows NSR on the monitor. PT is asleep and rodas not appear on on distress.
[2022-06-07 03:45] LABS: Basophils Percent Auto 0.3 % (0-2); Eosinophils Percent Auto 0.2 % (0-4); Hematocrit 24.8 % (37.0-47.0); Hemoglobin 8.4 g/dl (12.0-16.0); Imm Gran Abs Auto 0.08 X10*3/uL (0.00-0.03); Imm Gran Pct Auto 0.7 % (0.0-0.4); Lymphocytes Absolute Auto 1.7 X10*3/uL (1.2-4.9); Lymphocytes Percent Auto 15.2 % (20-40); Mean Corpuscular HGB Conc 33.9 g/dl (31.0-35.0); Mean Corpuscular Hemoglobin 28.6 pg (27.0-33.0); Mean Corpuscular Volume 84.4 fL (80.0-98.0); Monocytes Absolute Auto 0.5 X10*3/uL (0.1-1.2); Monocytes Percent Auto 4.3 % (2-11); Neutrophils Percent Auto 79.3 % (45-73); Platelet Count 185 X10*3/uL (160-400); Red Blood Count 2.94 X10*6/uL (4.20-5.50); Red Cell Distribution Width 12.8 % (11.0-16.0); White Blood Count 11.4 X10*3/uL (4.8-10.8)
[2022-06-07 03:47] LABS: ~Lactic Acid-LAB USE ONLY 1.4 mmol/L (0.5-2.0)
[2022-06-07 03:51] LABS: Anion Gap 15 (12-20); Blood Urea Nitrogen 17 mg/dL (9-16); Calcium 7.8 mg/dL (8.4-10.2); Carbon Dioxide 21 mmol/L (22-29); Chloride 98 mmol/L (96-108); Creatinine Clr Calc Pharmacy 81.2; Estimated Glomerular Filt Rate > 60; Glucose Random 348 mg/dL (60-115); Potassium 3.2 mmol/L (3.3-5.1); Sodium 131 mmol/L (135-145)
[2022-06-07 05:10] LABS: Hemoglobin A1c % > 14.0 %
[2022-06-07 08:01] LABS: Glucose, Whole Blood 285 mg/dL (60-115)
[2022-06-07] MEDS: 0.9 % Sodium Chloride Flush 3 ML SYRINGE IVFLUSH ×3 (08:12→20:43)
[2022-06-07] MEDS: Insulin Lispro 100 UNIT/ML 3 ML VIAL SUBCUT ×4 (08:36→20:42)
--- NOTE | 2022-06-07 08:45 | PC.NURSE ---
Patient AOx 4 no distress noted insulin admin as ordered patient tolerates po food and fluids. No distress noted will CTM
[2022-06-07] MEDS: Potassium Chloride ER 20 MEQ TAB.ER.PRT PO (09:13)
--- NOTE | 2022-06-07 09:55 | PC.NURSE ---
Inpatient MD at bedside with leadership development consultant
--- NOTE | 2022-06-07 10:52 | PC.NURSE ---
Spoke with security patiet is section but is no SI/HI does not have and has not had sitter will reach out to inpatient MD
--- NOTE | 2022-06-07 10:55 | PM.EVENT ---
Event Note Date of Service: 06/07/22 Event Note: 52-year-old male with pertinent history of mood disorder, insulin-dependent diabetes who presents to the emergency department via EMS on section 12.? As per EMS, patient was found in her apartment lying in bed and she was sectioned by the Behavioral Health team and community for not taking her medications, not showering or taking care of herself At present patient is sitting comfortably in bed finished all her breakfast offers no acute complaints On examination Constitutional : Awake alert in no distress Neck : No acute JVD Supple Cardiovascular : RRR, S1 S2, no lower extremity edema Respiratory : Good bilateral air entry,? no crackles, wheezes or rhonchi Gastrointestinal:? soft, Normal bowel sounds, Non tender Skin : Warm, Dry Neurological : Alert & oriented x3, No focal deficit 52-year-old male with pertinent history of mood disorder, insulin-dependent diabetes who presents to the emergency department via EMS on section 12. #.? Sepsis due to UTI:? Noted to have a fever 101.5, tachycardia on admission all symptoms resolved, continue IV ceftriaxone day 1, WBC trending down, blood culture and urine culture pending #.? Acute type A lactic acidosis: due to sepsis resolved with IV fluids #.? Non-insulin dependent diabetes mellitus 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: No home medications available last year patient was on pioglitazone, metformin, insulin lispro t.i.d. and Lantus Not? Due to noncompliance with antihyperglycemics.? Continue Lantus and insulin sliding scale #.? Major depressive disorder:? Noncompliance with medications.? consult psych for optimization. CARE team on board as patient is on section 12 DVT prophylaxis:? Lovenox 40 mg daily Full code Time Spent With Patient Time: Total time managing care of this patient today ____ minutes.
[2022-06-07 12:00] LABS: Glucose, Whole Blood 375 mg/dL (60-115)
[2022-06-07 12:00] LABS: Glucose, Whole Blood 387 mg/dL (60-115)
--- NOTE | 2022-06-07 14:39 | PC.NURSE ---
Report To Abdulaziz GREGORIO will prepare for transfer
[2022-06-07] MEDS: Acetaminophen 325 MG TABLET 650 MG PO (15:24)
[2022-06-07 16:38] LABS: Glucose, Whole Blood 344 mg/dL (60-115)
[2022-06-07 20:27] LABS: Glucose, Whole Blood 351 mg/dL (60-115)
[2022-06-08] MEDS: Enoxaparin Sodium 40 MG/0.4 ML SYRINGE SUBCUT (00:39)
[2022-06-08] MEDS: cefTRIAXone sodium 1 GM in 0.9 % Sodium Chloride 50 ML IV (00:39)
[2022-06-08 03:20] VITALS: BP 169/79; PULSE 100; RESP 18; TEMP 36.7; O2SAT 98
--- NOTE | 2022-06-08 04:05 | PC.NURSE ---
Addendum entered by Tia Martinez RN 06/08/22 04:06: POC at 2033 bedtime = 351, SS order followed, Dr. Douglass was notified with no further order. Original Note: Lab called at 1929 with critical 2 sets of blood cultures positive for gram negative rods, Dr. Douglass was notified at 1933, no further order.
[2022-06-08 07:10] LABS: Glucose, Whole Blood 287 mg/dL (60-115)
[2022-06-08 07:29] VITALS: BP 137/64; PULSE 104; RESP 18; TEMP 37.1; O2SAT 97
[2022-06-08] MEDS: Insulin Lispro 100 UNIT/ML 3 ML VIAL SUBCUT ×4 (07:59→20:15)
[2022-06-08] MEDS: 0.9 % Sodium Chloride Flush 3 ML SYRINGE IVFLUSH ×3 (08:00→20:14)
[2022-06-08 09:12] LABS: Hematocrit 26.8 % (37.0-47.0); Hemoglobin 8.9 g/dl (12.0-16.0); Mean Corpuscular HGB Conc 33.2 g/dl (31.0-35.0); Mean Corpuscular Hemoglobin 28.4 pg (27.0-33.0); Mean Corpuscular Volume 85.6 fL (80.0-98.0); Mean Platelet Volume 9.3 fL (9.4-12.3); Platelet Count 233 X10*3/uL (160-400); Red Blood Count 3.13 X10*6/uL (4.20-5.50); Red Cell Distribution Width 13.1 % (11.0-16.0); White Blood Count 11.4 X10*3/uL (4.8-10.8)
[2022-06-08 09:41] LABS: Anion Gap 17 (12-20); Blood Urea Nitrogen 11 mg/dL (9-16); Calcium 8.7 mg/dL (8.4-10.2); Carbon Dioxide 25 mmol/L (22-29); Chloride 98 mmol/L (96-108); Creatinine Clr Calc Pharmacy 83.4; Estimated Glomerular Filt Rate > 60; Glucose Random 309 mg/dL (60-115); Iron 29 mcg/dL (30-160); Percent Iron Saturation 18 % (15-50); Potassium 3.9 mmol/L (3.3-5.1); Sodium 136 mmol/L (135-145); Total Iron Binding Capacity 163 mcg/dL (228-428); Unsaturated Iron Binding 134 ug/dL
[2022-06-08 10:04] LABS: Ferritin 301 ng/mL (10-250)
--- NOTE | 2022-06-08 10:17 | MHC.CM.PN ---
CM MET WITH PT WITH THE ASSISTANCE OF [facility] [place] [facility] [employer] PT REPORTS SHE LIVES WITH HER TWO ADULT CHILDREN AND IS INDEPENDENT WITH CARE PT HAS NO DME AND NO SERVICES SHE DECLINES TO COMPLETE A HCP SHE IS NOT COVID VAX SHE DOES NOT KNOW THE NAME OF HER PCP AT [facility] DC HOME NO SERVICES FAMILY TO TRANSPORT
--- NOTE | 2022-06-08 11:36 | HO.PM.IMPN ---
Subjective Subjective Date of Service: 06/08/22 Interval History: History obtained via natural resources engineer patient complaining of bilateral lower extremity discomfort, otherwise denies nausea vomiting, no abdominal pain, no urinary symptoms, denies fever, no chills, no headache, no dizziness, tolerating diet, no recurrent fevers since admission, denies urinary symptoms. Review of Systems Review of Systems: Yes all other systems are reviewed and are negative Physical Exam Vital Signs: Vital Signs: Last Vital Signs Temp 98.7 F 06/08/22 07:29 Pulse 104 H 06/08/22 07:29 Resp 18 06/08/22 07:29 BP 137/64 06/08/22 07:29 Pulse Ox 97 06/08/22 07:29 O2 Del Method 06/08/22 07:29 BMI result Body Mass Index 23.8 Const: Other: Constitutional :? Awake alert in no distress Anicteric sclera Neck : No acute JVD Supple Cardiovascular : RRR, S1 S2, no lower extremity edema Respiratory : Good bilateral air entry,? no crackles, wheezes or rhonchi Gastrointestinal:? soft, Normal bowel sounds, Non tender Skin : Warm, Dry Neurological : Alert & oriented x3, No focal deficit, good sensation both extremities Extremities no edema, no redness Objective Data Active Medications Acetaminophen (Acetaminophen 325 Mg Tablet) 650 mg PO Q6H PRN PRN Reason: Pain, Mild (Pain Scale 1-3) Last Admin: 06/07/22 15:24 Dose: 650 mg Documented By: REESE Dextrose (Dextrose 50 % 25 Gm/50 Ml Syringe) 25 gm IVPUSH Q15M PRN; Protocol PRN Reason: per Hypoglycemia Standing Ord. Enoxaparin Sodium (Enoxaparin Sodium 40 Mg/0.4 Ml Syringe) 40 mg SUBCUT Q24H [facility] Last Admin: 06/08/22 00:39 Dose: 40 mg Documented By: PRIYA Glucose (Glucose Gel 15 Gm Gel..Gram.) 15 gm PO Q15M PRN; Protocol PRN Reason: per Hypoglycemia Standing Ord. Ceftriaxone Sodium 1 gm/ (Sodium Chloride) 50 mls @ 100 mls/hr IV Q24H [facility] Last Infusion: 06/08/22 01:20 Dose: 0 mls/hr Documented By: PRIYA Insulin Glargine (Insulin Glargine,Hum.Rec.Anlog 100 Unit/Ml 10 Ml Vial) 13 unit SUBCUT BEDTIME [facility] Last Admin: 06/07/22 20:42 Dose: 13 unit Documented By: PRIYA Insulin Human Lispro (Insulin Lispro 100 Unit/Ml 3 Ml Vial) 0.1 - 10 unit SUBCUT QIDACHS [facility]; Protocol Last Admin: 06/08/22 07:59 Dose: 6 unit Documented By: REESE Melatonin (Melatonin 3 Mg Tablet) 6 mg PO BEDTIME PRN PRN Reason: Insomnia Ondansetron HCl (Ondansetron Hcl 4 Mg/2 Ml Vial) 4 mg IVPUSH Q8H PRN PRN Reason: Nausea and Vomiting Pharmacy Consult (Consult Rx Perform Med Rec) 1 each MISCELLANE ONCE PRN PRN Reason: Consult order Sodium Chloride (0.9 % Sodium Chloride Flush 3 Ml Syringe) 3 ml IVFLUSH QSHIFT [facility] Last Admin: 06/08/22 08:00 Dose: 3 ml Documented By: REESE Labs 06/08/22 08:42 06/08/22 08:42 Labs: Laboratory Results - last 24 hr 06/07/22 06/07/22 06/07/22 11:14 11:56 16:32 MCV MCH MCHC RDW Plt Count MPV Absolute Nucleated RBC Nucleated RBC % (auto) Anion Gap Estim Creat Clear Calc Estimated GFR POC Glucose 375 H* 387 H* 344 H Random Glucose Calcium Iron TIBC % Saturation Unsat Iron Binding Ferritin 06/07/22 06/08/22 06/08/22 20:22 07:03 08:42 MCV 85.6 MCH 28.4 MCHC 33.2 RDW 13.1 Plt Count 233 D MPV 9.3 L Absolute Nucleated RBC 0.000 Nucleated RBC % (auto) 0.0 Anion Gap Estim Creat Clear Calc Estimated GFR POC Glucose 351 H* 287 H Random Glucose Calcium Iron TIBC % Saturation Unsat Iron Binding Ferritin 06/08/22 08:42 MCV MCH MCHC RDW Plt Count MPV Absolute Nucleated RBC Nucleated RBC % (auto) Anion Gap 17 Estim Creat Clear Calc 83.4 Estimated GFR > 60 POC Glucose Random Glucose 309 H Calcium 8.7 D Iron 29 L TIBC 163 L % Saturation 18 Unsat Iron Binding 134 Ferritin 301 H Microbiology Microbiology Results: Microbiology 06/07/22 00:00 Urine Culture - Preliminary Urine clean catch - Clean Catch Midstream Gram negative savi Lactobacillus species 06/07/22 00:52 Blood Culture - Preliminary Blood - Venous Prelim: GNR Gram Stain only 06/07/22 00:52 Blood Culture - Preliminary Blood - Venous Prelim: GNR Gram Stain only Assessment and Plan (1) UTI (urinary tract infection): Status: Acute (2) Sepsis: Status: Acute (3) Depression: Status: Acute (4) Hyperglycemia: Status: Acute Plan 52-year-old male with pertinent history of mood disorder, insulin-dependent diabetes who presents to the emergency department via EMS on section 12, as per EMS patient was found in apartment alone, Section 12 was requested by behavioral health team due to not taking her medications including insulin, not showering and inbility to take care for herself. #.? Sepsis due to UTI:? Noted to have a fever 101.5, leukocytosis and tachycardia on admission , chest x-ray negative all symptoms resolved, continue IV ceftriaxone day 2, WBC trending down, blood culture and urine culture growing Gram-negative rods follow final sensitivity report #.? Acute type A lactic acidosis: due to sepsis resolved with IV fluids #.? Non-insulin dependent diabetes mellitus 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:? No home medications available last year patient was on pioglitazone 30 mg, metformin 1000 mg b.i.d., insulin lispro t.i.d. and Lantus 33 units at bedtime ? ? ?Continue Lantus increase dose to 2ou ,cont. insulin sliding scale, hemoglobin A1c > 14 # history of hypertension/HLD previously was on hydrochlorothiazide 25 mg, lisinopril 40 mg and isosorbide 30 mg and Lipitor 80 mg daily BP fluctuating in last 24 hours monitor blood pressure closely and resume home medication if BP noted to be elevated. #.? Major depressive disorder/Failure to thrive:? Noncompliance with medications.? consult psych for optimization. CARE team on board as patient is on section 12 # leg pain question neuropathy will add Neurontin at bedtime # chronic normocytic anemia stable DVT prophylaxis:? Lovenox 40 mg daily Full code Time Spent With Patient Time: Total time managing care of this patient today ____ minutes. Quality Stroke Does the patient have a stroke diagnosis?: No VTE Prior VTE?: No VTE Risk Level:: Medical - moderate - high VTE Device Contraindication: Treatment Not Indicated VTE Drug Contraindication: N/A - Med Ordered
[2022-06-08 11:47] LABS: Glucose, Whole Blood 314 mg/dL (60-115)
[2022-06-08 14:56] VITALS: BP 172/79; PULSE 97; RESP 17; TEMP 36.6; O2SAT 98
[2022-06-08 16:39] LABS: Glucose, Whole Blood 244 mg/dL (60-115)
[2022-06-08 19:02] VITALS: BP 168/80; PULSE 100; RESP 17; TEMP 36.3; O2SAT 98
[2022-06-08 20:04] LABS: Glucose, Whole Blood 243 mg/dL (60-115)
[2022-06-08] MEDS: Gabapentin 100 MG CAPSULE PO (20:14)
[2022-06-08] MEDS: Insulin Glargine,Hum.rec.anlog 100 UNIT/ML 10 ML VIAL 13 UNIT SUBCUT (20:15)
[2022-06-08] MEDS: cefTRIAXone sodium 2 GM in 0.9 % Sodium Chloride 50 ML IV (22:34)
[2022-06-09] MEDS: Enoxaparin Sodium 40 MG/0.4 ML SYRINGE SUBCUT ×2 (00:07→23:26)
[2022-06-09 03:16] VITALS: BP 132/69; PULSE 90; RESP 16; TEMP 36.9; O2SAT 98
[2022-06-09 07:58] LABS: Glucose, Whole Blood 114 mg/dL (60-115)
[2022-06-09 08:00] VITALS: BP 93/55; PULSE 104; RESP 18; TEMP 36.7; O2SAT 100
[2022-06-09] MEDS: 0.9 % Sodium Chloride 500 ML IV (08:09)
[2022-06-09] MEDS: 0.9 % Sodium Chloride Flush 3 ML SYRINGE IVFLUSH ×3 (08:10→22:44)
[2022-06-09 12:11] LABS: Glucose, Whole Blood 290 mg/dL (60-115)
--- NOTE | 2022-06-09 12:32 | P.PNIM_ITS ---
Subjective Subjective Date of Service: 06/09/22 Interval History: Tolerating diet. Voices no specific complaints Review of Systems Denies chest pain Denies shortness of breath Denies nausea vomiting diarrhea Denies fever chills Physical Exam Vital Signs: Vital Signs: Last Vital Signs Temp 98.0 F 06/09/22 08:00 Pulse 104 H 06/09/22 08:00 Resp 18 06/09/22 08:00 BP 93/55 L 06/09/22 08:00 Pulse Ox 100 06/09/22 08:00 O2 Del Method 06/09/22 08:00 BMI result Body Mass Index 23.8 Const: Other: No acute distress Resp: Other: Clear to auscultation bilaterally no rales rhonchi or wheezes Cardio: Other: No S4; positive S1-S2; no S3 murmurs rubs or gallops GI: Other: Soft nontender nondistended normoactive bowel sounds Extrem: Other: No edema bilaterally Objective Data Active Medications Acetaminophen (Acetaminophen 325 Mg Tablet) 650 mg PO Q6H PRN PRN Reason: Pain, Mild (Pain Scale 1-3) Last Admin: 06/07/22 15:24 Dose: 650 mg Documented By: REESE Dextrose (Dextrose 50 % 25 Gm/50 Ml Syringe) 25 gm IVPUSH Q15M PRN; Protocol PRN Reason: per Hypoglycemia Standing Ord. Enoxaparin Sodium (Enoxaparin Sodium 40 Mg/0.4 Ml Syringe) 40 mg SUBCUT Q24H [facility] Last Admin: 06/09/22 00:07 Dose: 40 mg Documented By: WINDY Gabapentin (Gabapentin 100 Mg Capsule) 100 mg PO BEDTIME [facility] Last Admin: 06/08/22 20:14 Dose: 100 mg Documented By: WINDY Glucose (Glucose Gel 15 Gm Gel..Gram.) 15 gm PO Q15M PRN; Protocol PRN Reason: per Hypoglycemia Standing Ord. Ceftriaxone Sodium 2 gm/ (Sodium Chloride) 50 mls @ 100 mls/hr IV Q24H [facility] Last Infusion: 06/08/22 23:15 Dose: 0 mls/hr Documented By: WINDY Insulin Glargine (Insulin Glargine,Hum.Rec.Anlog 100 Unit/Ml 10 Ml Vial) 13 unit SUBCUT BEDTIME [facility] Last Admin: 06/08/22 20:15 Dose: 13 unit Documented By: WINDY Insulin Human Lispro (Insulin Lispro 100 Unit/Ml 3 Ml Vial) 0.1 - 14 unit SUBCUT [facility]; Protocol Last Admin: 06/09/22 07:40 Dose: Not Given Documented By: LC Non-Admin Reason: No Insulin Coverage Melatonin (Melatonin 3 Mg Tablet) 6 mg PO BEDTIME PRN PRN Reason: Insomnia Ondansetron HCl (Ondansetron Hcl 4 Mg/2 Ml Vial) 4 mg IVPUSH Q8H PRN PRN Reason: Nausea and Vomiting Pharmacy Consult (Consult Rx Perform Med Rec) 1 each MISCELLANE ONCE PRN PRN Reason: Consult order Sodium Chloride (0.9 % Sodium Chloride Flush 3 Ml Syringe) 3 [facility] Last Admin: 06/09/22 08:10 Dose: 3 ml Documented By: LC Labs 06/08/22 08:42 06/08/22 08:42 Labs: Laboratory Results - last 24 hr 06/08/22 06/08/22 06/09/22 16:35 20:00 07:16 POC Glucose 244 H 243 H 114 06/09/22 11:54 POC Glucose 290 H Microbiology Microbiology Results: Microbiology 06/07/22 00:52 Blood Culture - Final Blood - Venous Klebsiella pneumoniae 06/07/22 00:52 Blood Culture - Final Blood - Venous Klebsiella pneumoniae 06/07/22 00:00 Urine Culture - Final Urine clean catch - Clean Catch Midstream Klebsiella pneumoniae Lactobacillus species Assessment and Plan (1) UTI (urinary tract infection): Status: Acute (2) Sepsis: Status: Acute (3) Depression: Status: Acute (4) Hyperglycemia: Status: Acute Plan 52-year-old male with pertinent history of mood disorder, insulin-dependent diabetes who presents to the emergency department via EMS on section 12, as per EMS patient was found in apartment alone, Section 12 was requested by behavioral health team due to not taking her medications including insulin, not showering and inbility to take care for herself. Remains hemodynamically stable 1.Sepsis due to UTI(Klebsiella )? -IV ceftriaxone day 3 -Consult ID 2. Klebsiella bacteremia -sensitive to CTX..continue same pending ID consult 3.Acute type A lactic acidosis due to sepsis -resolved 4.Non-insulin dependent diabetes mellitus -poorly control -increase HS Lantus to outpatient dosing -add back oral agents as dictated by point cares -ADA diet 5.Hypertension/HLD - previously was on hydrochlorothiazide 25 mg, lisinopril 40 mg and isosorbide 30 mg and Lipitor 80 mg daily - hypotensive this a.m.; add back meds as indicated 6.Major depressive disorder/Failure to thrive:? -consult psych for optimization. -CARE team on board as patient is on section 12 Lovenox Full code Will require ongoing hospitalization for IV antibiotics to treat bacteremia Time Spent With Patient Time: Total time managing care of this patient today ____ minutes. Quality Stroke Does the patient have a stroke diagnosis?: No VTE Prior VTE?: No VTE Risk Level:: Medical - moderate - high VTE Device Contraindication: Treatment Not Indicated VTE Drug Contraindication: N/A - Med Ordered
[2022-06-09] MEDS: Insulin Lispro 100 UNIT/ML 3 ML VIAL SUBCUT ×3 (12:34→21:01)
[2022-06-09 15:14] VITALS: BP 112/56; PULSE 98; RESP 15; TEMP 36.6; O2SAT 98
[2022-06-09 16:37] LABS: Glucose, Whole Blood 315 mg/dL (60-115)
[2022-06-09 18:56] VITALS: BP 151/67; PULSE 97; RESP 15; TEMP 36.6; O2SAT 98
[2022-06-09 20:25] LABS: Glucose, Whole Blood 255 mg/dL (60-115)
[2022-06-09] MEDS: Insulin Glargine,Hum.rec.anlog 100 UNIT/ML 10 ML VIAL 13 UNIT SUBCUT (21:01)
[2022-06-09] MEDS: Gabapentin 100 MG CAPSULE PO (21:01)
[2022-06-09] MEDS: cefTRIAXone sodium 2 GM in 0.9 % Sodium Chloride 50 ML IV (22:35)
[2022-06-10 03:48] VITALS: BP 117/54; PULSE 98; RESP 16; O2SAT 98
[2022-06-10 06:15] LABS: MANUAL DIFF FLAG NO
[2022-06-10 06:23] LABS: Basophils Percent Auto 0.3 % (0-2); Eosinophils Absolute Auto 0.2 X10*3/uL (0.0-0.4); Eosinophils Percent Auto 1.9 % (0-4); Hemoglobin 8.5 g/dl (12.0-16.0); Imm Gran Abs Auto 0.09 X10*3/uL (0.00-0.03); Imm Gran Pct Auto 0.8 % (0.0-0.4); Lymphocytes Absolute Auto 4.4 X10*3/uL (1.2-4.9); Lymphocytes Percent Auto 40.9 % (20-40); Mean Corpuscular HGB Conc 32.7 g/dl (31.0-35.0); Mean Corpuscular Hemoglobin 28.3 pg (27.0-33.0); Mean Corpuscular Volume 86.7 fL (80.0-98.0); Mean Platelet Volume 9.1 fL (9.4-12.3); Monocytes Absolute Auto 0.8 X10*3/uL (0.1-1.2); Monocytes Percent Auto 7.2 % (2-11); Neutrophils Absolute Auto 5.3 x10*3/uL (2.0-8.3); Neutrophils Percent Auto 48.9 % (45-73); Platelet Count 260 X10*3/uL (160-400); White Blood Count 10.8 X10*3/uL (4.8-10.8)
[2022-06-10 06:47] LABS: Alanine Aminotransferase < 6 U/L (0-31); Albumin Level 2.6 g/dL (3.5-5.0); Alkaline Phosphatase 84 U/L (39-117); Anion Gap 15 (12-20); Aspartate Amino Transferase 11 U/L (5-31); Bilirubin Total < 0.2 mg/dL (0.0-1.0); Blood Urea Nitrogen 19 mg/dL (9-16); Calcium 8.8 mg/dL (8.4-10.2); Carbon Dioxide 27 mmol/L (22-29); Chloride 99 mmol/L (96-108); Creatinine Clr Calc Pharmacy 82.3; Estimated Glomerular Filt Rate > 60; Glucose Fasting 196 mg/dL (60-99); Potassium 4.5 mmol/L (3.3-5.1); Sodium 136 mmol/L (135-145); Total Protein 5.9 g/dL (6.5-8.0)
[2022-06-10 08:00] VITALS: BP 130/69; PULSE 92; RESP 18; TEMP 36.6; O2SAT 99
[2022-06-10] MEDS: 0.9 % Sodium Chloride Flush 3 ML SYRINGE IVFLUSH ×3 (08:07→20:58)
[2022-06-10] MEDS: Insulin Lispro 100 UNIT/ML 3 ML VIAL SUBCUT ×4 (08:07→20:34)
[2022-06-10 08:14] LABS: Glucose, Whole Blood 186 mg/dL (60-115)
[2022-06-10 11:33] LABS: Glucose, Whole Blood 188 mg/dL (60-115)
[2022-06-10 15:22] VITALS: BP 166/77; PULSE 97; RESP 15; TEMP 36.4; O2SAT 97
--- NOTE | 2022-06-10 15:54 | HO.PM.IMPN ---
Subjective Subjective Date of Service: 06/10/22 Interval History: Compliant with therapies. No acute issues Review of Systems Denies chest pain Denies shortness of breath Denies nausea vomiting diarrhea Denies fever chills Physical Exam Vital Signs: Vital Signs: Last Vital Signs Temp 97.5 F 06/10/22 15:22 Pulse 97 06/10/22 15:22 Resp 15 06/10/22 15:22 BP 166/77 H 06/10/22 15:22 Pulse Ox 97 06/10/22 15:22 O2 Del Method 06/10/22 15:22 BMI result Body Mass Index 23.8 Const: Other: No acute distress Resp: Other: Clear to auscultation bilaterally no rales rhonchi or wheezes Cardio: Other: No S4; positive S1-S2; no S3 murmurs rubs or gallops GI: Other: Soft nontender nondistended normoactive bowel sounds Extrem: Other: No edema bilaterally Objective Data Active Medications Acetaminophen (Acetaminophen 325 Mg Tablet) 650 mg PO Q6H PRN PRN Reason: Pain, Mild (Pain Scale 1-3) Last Admin: 06/07/22 15:24 Dose: 650 mg Documented By: REESE Dextrose (Dextrose 50 % 25 Gm/50 Ml Syringe) 25 gm IVPUSH Q15M PRN; Protocol PRN Reason: per Hypoglycemia Standing Ord. Enoxaparin Sodium (Enoxaparin Sodium 40 Mg/0.4 Ml Syringe) 40 mg SUBCUT Q24H [facility] Last Admin: 06/09/22 23:26 Dose: 40 mg Documented By: WINDY Gabapentin (Gabapentin 100 Mg Capsule) 100 mg PO BEDTIME [facility] Last Admin: 06/09/22 21:01 Dose: 100 mg Documented By: WINDY Glucose (Glucose Gel 15 Gm Gel..Gram.) 15 gm PO Q15M PRN; Protocol PRN Reason: per Hypoglycemia Standing Ord. Ceftriaxone Sodium 2 gm/ (Sodium Chloride) 50 mls @ 100 mls/hr IV Q24H [facility] Last Infusion: 06/09/22 23:05 Dose: 0 mls/hr Documented By: WINDY Insulin Glargine (Insulin Glargine,Hum.Rec.Anlog 100 Unit/Ml 10 Ml Vial) 13 unit SUBCUT BEDTIME [facility] Last Admin: 06/09/22 21:01 Dose: 13 unit Documented By: WINDY Insulin Human Lispro (Insulin Lispro 100 Unit/Ml 3 Ml Vial) 0.1 - 14 unit SUBCUT QIDACHWhitley [facility]; Protocol Last Admin: 06/10/22 12:10 Dose: 4 unit Documented By: LC Melatonin (Melatonin 3 Mg Tablet) 6 mg PO BEDTIME PRN PRN Reason: Insomnia Ondansetron HCl (Ondansetron Hcl 4 Mg/2 Ml Vial) 4 mg IVPUSH Q8H PRN PRN Reason: Nausea and Vomiting Pharmacy Consult (Consult Rx Perform Med Rec) 1 each MISCELLANE ONCE PRN PRN Reason: Consult order Sodium Chloride (0.9 % Sodium Chloride Flush 3 Ml Syringe) 3 ml IVFLUSH [facility] Last Admin: 06/10/22 08:07 Dose: 3 ml Documented By: LC Labs 06/10/22 04:59 06/10/22 04:59 Labs: Laboratory Results - last 24 hr 06/09/22 06/09/22 06/10/22 16:27 20:20 04:59 MCV 86.7 MCH 28.3 MCHC 32.7 RDW 13.0 Plt Count 260 MPV 9.1 L Immature Gran % (Auto) 0.8 H Neut % (Auto) 48.9 Lymph % (Auto) 40.9 H [place] % (Auto) 7.2 Eos % (Auto) 1.9 Baso % (Auto) 0.3 Lymph # (Auto) 4.4 [place] # (Auto) 0.8 Eos # (Auto) 0.2 Baso # (Auto) 0.0 Abs Immat Gran (auto) 0.09 H Absolute Neuts (auto) 5.3 Absolute Nucleated RBC 0.000 Nucleated RBC % (auto) 0.0 Anion Gap Estim Creat Clear Calc Estimated GFR POC Glucose 315 H 255 H Fasting Glucose Calcium Total Bilirubin AST ALT Alkaline Phosphatase Total Protein Albumin 06/10/22 06/10/22 06/10/22 04:59 07:51 11:26 MCV MCH MCHC RDW Plt Count MPV Immature Gran % (Auto) Neut % (Auto) Lymph % (Auto) [place] % (Auto) Eos % (Auto) Baso % (Auto) Lymph # (Auto) [place] # (Auto) Eos # (Auto) Baso # (Auto) Abs Immat Gran (auto) Absolute Neuts (auto) Absolute Nucleated RBC Nucleated RBC % (auto) Anion Gap 15 Estim Creat Clear Calc 82.3 Estimated GFR > 60 POC Glucose 186 H 188 H Fasting Glucose 196 H Calcium 8.8 Total Bilirubin < 0.2 AST 11 ALT < 6 Alkaline Phosphatase 84 Total Protein 5.9 L Albumin 2.6 L Assessment and Plan (1) UTI (urinary tract infection): Status: Acute (2) Sepsis: Status: Acute (3) Depression: Status: Acute Plan 52-year-old male with pertinent history of mood disorder, insulin-dependent diabetes who presents to the emergency department via EMS on section 12, as per EMS patient was found in apartment alone, Section 12 was requested by behavioral health team due to not taking her medications including insulin, not showering and inbility to take care for herself. Remains hemodynamically stable 1.Sepsis due to UTI(Klebsiella )? -IV ceftriaxone day (4) -Consult ID 2. Klebsiella bacteremia -sensitive to CTX..continue same pending ID consult 3.Acute type A lactic acidosis due to sepsis -resolved 4.Non-insulin dependent diabetes mellitus -poorly control -increase HS Lantus to outpatient dosing -add back oral agents as dictated by point cares -ADA diet 5.Hypertension/HLD -hydrochlorothiazide 25 mg, lisinopril 40 mg and isosorbide 30 mg and Lipitor 80 mg daily 6.Major depressive disorder/Failure to thrive:? -OK for dc with services [facility] Full code Will require ongoing hospitalization for IV antibiotics to treat bacteremia Time Spent With Patient Time: Total time managing care of this patient today ____ minutes. Quality Stroke Does the patient have a stroke diagnosis?: No VTE Prior VTE?: No VTE Risk Level:: Medical - moderate - high VTE Device Contraindication: Treatment Not Indicated VTE Drug Contraindication: N/A - Med Ordered
[2022-06-10 16:46] LABS: Glucose, Whole Blood 282 mg/dL (60-115)
[2022-06-10 18:59] VITALS: BP 136/65; PULSE 100; RESP 15; TEMP 36.6; O2SAT 98
[2022-06-10 20:22] LABS: Glucose, Whole Blood 345 mg/dL (60-115)
[2022-06-10] MEDS: Gabapentin 100 MG CAPSULE PO (20:33)
[2022-06-10] MEDS: Insulin Glargine,Hum.rec.anlog 100 UNIT/ML 10 ML VIAL 13 UNIT SUBCUT (20:34)
[2022-06-10] MEDS: cefTRIAXone sodium 2 GM in 0.9 % Sodium Chloride 50 ML IV (20:58)
[2022-06-11] MEDS: Enoxaparin Sodium 40 MG/0.4 ML SYRINGE SUBCUT ×2 (01:34→23:15)
[2022-06-11 04:00] VITALS: BP 134/62; PULSE 97; RESP 16; TEMP 36.8; O2SAT 98
[2022-06-11 06:25] LABS: MANUAL DIFF FLAG NO
[2022-06-11 06:41] LABS: Basophils Percent Auto 0.4 % (0-2); Eosinophils Absolute Auto 0.2 X10*3/uL (0.0-0.4); Eosinophils Percent Auto 2.3 % (0-4); Hemoglobin 8.7 g/dl (12.0-16.0); Imm Gran Pct Auto 0.9 % (0.0-0.4); Lymphocytes Absolute Auto 4.4 X10*3/uL (1.2-4.9); Lymphocytes Percent Auto 41.7 % (20-40); Mean Corpuscular HGB Conc 32.2 g/dl (31.0-35.0); Mean Corpuscular Hemoglobin 28.3 pg (27.0-33.0); Mean Corpuscular Volume 87.9 fL (80.0-98.0); Mean Platelet Volume 8.9 fL (9.4-12.3); Monocytes Absolute Auto 0.7 X10*3/uL (0.1-1.2); Monocytes Percent Auto 6.9 % (2-11); Neutrophils Absolute Auto 5.1 x10*3/uL (2.0-8.3); Neutrophils Percent Auto 47.8 % (45-73); Platelet Count 306 X10*3/uL (160-400); Red Blood Count 3.07 X10*6/uL (4.20-5.50); Red Cell Distribution Width 13.2 % (11.0-16.0); White Blood Count 10.6 X10*3/uL (4.8-10.8)
[2022-06-11 07:03] LABS: Alanine Aminotransferase 9 U/L (0-31); Albumin Level 2.9 g/dL (3.5-5.0); Alkaline Phosphatase 91 U/L (39-117); Anion Gap 14 (12-20); Aspartate Amino Transferase 16 U/L (5-31); Bilirubin Total < 0.2 mg/dL (0.0-1.0); Blood Urea Nitrogen 19 mg/dL (9-16); Calcium 9.3 mg/dL (8.4-10.2); Carbon Dioxide 30 mmol/L (22-29); Chloride 99 mmol/L (96-108); Creatinine Clr Calc Pharmacy 80.1; Estimated Glomerular Filt Rate > 60; Glucose Fasting 236 mg/dL (60-99); Potassium 5.1 mmol/L (3.3-5.1); Sodium 138 mmol/L (135-145); Total Protein 6.4 g/dL (6.5-8.0)
[2022-06-11 07:27] VITALS: BP 145/68; PULSE 90; RESP 18; TEMP 36.5; O2SAT 97
[2022-06-11 07:32] LABS: Glucose, Whole Blood 213 mg/dL (60-115)
[2022-06-11] MEDS: Insulin Lispro 100 UNIT/ML 3 ML VIAL SUBCUT ×4 (08:12→21:11)
[2022-06-11] MEDS: hydroCHLOROthiazide 25 MG TABLET PO (08:12)
[2022-06-11] MEDS: 0.9 % Sodium Chloride Flush 3 ML SYRINGE IVFLUSH ×3 (08:12→21:13)
[2022-06-11] MEDS: Atorvastatin Calcium 80 MG TABLET PO (08:12)
[2022-06-11] MEDS: lisinopriL 20 MG TABLET PO (08:12)
[2022-06-11 11:15] LABS: Glucose, Whole Blood 178 mg/dL (60-115)
--- NOTE | 2022-06-11 11:29 | MHC.CM.PN ---
Addendum entered by Cinthya Ferrell RN 06/11/22 12:05: PCP COVERING PT IS CARMEL OLMSTEAD, FOLLOW-UP APPT 06/29. Addendum entered by Cinthya Ferrell RN 06/11/22 12:00: PER HOSPITALIST PT WILL NEED TO REMAIN OVERIGHT BC'S WERE POSITIVE AND PT WILL NEED TO BE REDRAWN AND ID CONSULT PLACED. Original Note: PER HOSPITALIST PT MEDICALLY CLEARED FOR D/C HOME W/NEW VNA, CM STILL ATTEMPTING TO SECURE VNA SERVICES, CM CONTACTED PT'S SON JAYLIN AT 11:17AM [phone], PER JAYLIN PT IS WELCOME HOME AND HE CAN PICK PT UP AFTER HE GETS OUT OF WORK AT 12:30PM, JAYLIN IS AWARE CM STILL ATTMEPTING TO SECURE VNA AND THAT PT HAS BEEN CLEARED BY CARE TEAM.
--- NOTE | 2022-06-11 11:51 | P.DS_ITS ---
DS: Providers Provider Date of Service: 06/11/22 Date of admission: 06/07/22 00:00 Date of discharge: 06/11/22 Primary care physician: [facility] Consults: 06/10/22 10:38 Consult to Care Team Stat Comment: Reason for consultation: Sec 12... medically acceptable for DC DS: Diagnosis Discharge Diagnosis (1) UTI (urinary tract infection): Status: Acute (2) Sepsis: Status: Acute (3) Depression: Status: Acute DS: Summary Hospital Course Hospital Course: 52-year-old male with pertinent history of mood disorder, insulin-dependent diabetes who presents to the emergency department via EMS on section 12.? As per EMS, patient was found in her apartment lying in bed and she was sectioned by the Behavioral Health team and community for not taking her medications.? Her apartment was unkempt.? Patient not showering and not taking care of herself.? Patient states she has not been taking her med medications including insulin.? Patient denies any complaints at this time.? No suicidal or homicidal ideations. In the emergency department, patient was found to be septic and urine was consistent with UTI Hospital Course Admitted to general medical floor and started on ceftriaxone. Urine and blood cultures demonstrate Klebsiella pneumonia pulse sensitive to ceftriaxone. Seen by ID; recommended CT scan of abdomen pelvis to rule out any obstructive lesion. CT done prior to discharge failed to demonstrate any acute pathology in the abdomen. Id recommendation is to be discharged on a course of oral Ceftin to complete a 14 day course and follow up with PCP Time Spent with Patient Time attestation: Total time managing care of this patient today ____ minutes. Discharge coordination time: Greater than 30 minutes Quality: Safe Use of Opioids Does Pt have an Active Cancer Diagnosis on the Problem List?: No Quality: Stroke Does the patient have a stroke diagnosis?: No Physical Exam Vital Signs: Vital Signs: Last Vital Signs Temp 97.7 F 06/11/22 07:27 Pulse 90 06/11/22 07:27 Resp 18 06/11/22 07:27 BP 145/68 H 06/11/22 07:27 Pulse Ox 97 06/11/22 07:27 O2 Del Method 06/11/22 07:27 BMI result Body Mass Index 23.8 Const: Other: No acute distress Resp: Other: Clear to auscultation bilaterally no rales rhonchi or wheezes Cardio: Other: No S4; positive S1-S2; no S3 murmurs rubs or gallops GI: Other: Soft nontender nondistended normoactive bowel sounds Extrem: Other: No edema bilaterally DS: Data Data Completed and Pending Labs on day of discharge: Laboratory Results - last 24 hr 06/10/22 06/10/22 06/11/22 16:40 20:18 05:33 WBC 10.6 RBC 3.07 L Hgb 8.7 L Hct 27.0 L MCV 87.9 MCH 28.3 MCHC 32.2 RDW 13.2 Plt Count 306 MPV 8.9 L Immature Gran % (Auto) 0.9 H Neut % (Auto) 47.8 Lymph % (Auto) 41.7 H [place] % (Auto) 6.9 Eos % (Auto) 2.3 Baso % (Auto) 0.4 Lymph # (Auto) 4.4 [place] # (Auto) 0.7 Eos # (Auto) 0.2 Baso # (Auto) 0.0 Abs Immat Gran (auto) 0.10 H Absolute Neuts (auto) 5.1 Absolute Nucleated RBC 0.000 Nucleated RBC % (auto) 0.0 Sodium Potassium Chloride Carbon Dioxide Anion Gap BUN Creatinine Estim Creat Clear Calc Estimated GFR POC Glucose 282 H 345 H Fasting Glucose Calcium Total Bilirubin AST ALT Alkaline Phosphatase Total Protein Albumin 06/11/22 06/11/22 06/11/22 05:33 07:25 11:10 WBC RBC Hgb Hct MCV MCH MCHC RDW Plt Count MPV Immature Gran % (Auto) Neut % (Auto) Lymph % (Auto) [place] % (Auto) Eos % (Auto) Baso % (Auto) Lymph # (Auto) [place] # (Auto) Eos # (Auto) Baso # (Auto) Abs Immat Gran (auto) Absolute Neuts (auto) Absolute Nucleated RBC Nucleated RBC % (auto) Sodium 138 Potassium 5.1 Chloride 99 Carbon Dioxide 30 H Anion Gap 14 BUN 19 H Creatinine 0.76 Estim Creat Clear Calc 80.1 Estimated GFR > 60 POC Glucose 213 H 178 H Fasting Glucose 236 H Calcium 9.3 Total Bilirubin < 0.2 AST 16 ALT 9 Alkaline Phosphatase 91 Total Protein 6.4 L Albumin 2.9 L Discharge Plan Discharge Anticipated Discharge Date/Time: 06/11/22 11:50 Patient Disposition: Home, Self-Care Discharge Diagnosis: Sepsis secondary to UTI Referrals: [facility] [Outside] - 1 Day (LONGTERM ) Echo Pickens MD [Primary Care Provider] - 06/29/22 1:00 pm (You have a follow up appointment scheduled, if you need sooner or if you need to reschedule call the office ) Discharge Medications: New cefuroxime axetil 500 mg tablet 500 mg PO BID 7 Days Qty: 14 0RF Discharge Orders: Discharge Order (Routine); Ordered 06/12/22 Ordered By: Aquilino Zuniga Diet: Advance to usual diet Activity on Discharge: As tolerated Stand Alone Forms: Patient Portal Discharge page Care Plan Goals: Complete course of Ceftin for urinary tract infection Health Concerns: Follow-up with PCP in 2 weeks Plan of Treatment: Continue all pre-hospital therapies Assessment: See discharge summary
--- NOTE | 2022-06-11 11:57 | HO.PM.IMPN ---
Subjective Subjective Date of Service: 06/11/22 Interval History: No acute issues overnight remains afebrile Review of Systems Denies chest pain Denies shortness of breath Denies nausea vomiting diarrhea Denies fever chills Physical Exam Vital Signs: Vital Signs: Last Vital Signs Temp 97.7 F 06/11/22 07:27 Pulse 90 06/11/22 07:27 Resp 18 06/11/22 07:27 BP 145/68 H 06/11/22 07:27 Pulse Ox 97 06/11/22 07:27 O2 Del Method 06/11/22 07:27 BMI result Body Mass Index 23.8 Const: Other: No acute distress Resp: Other: Clear to auscultation bilaterally no rales rhonchi or wheezes Cardio: Other: No S4; positive S1-S2; no S3 murmurs rubs or gallops GI: Other: Soft nontender nondistended normoactive bowel sounds Extrem: Other: No edema bilaterally Objective Data Active Medications Acetaminophen (Acetaminophen 325 Mg Tablet) 650 mg PO Q6H PRN PRN Reason: Pain, Mild (Pain Scale 1-3) Last Admin: 06/07/22 15:24 Dose: 650 mg Documented By: REESE Atorvastatin Calcium (Atorvastatin Calcium 80 Mg Tablet) 80 mg PO DAILY [facility] Last Admin: 06/11/22 08:12 Dose: 80 mg Documented By: SRIRAM Dextrose (Dextrose 50 % 25 Gm/50 Ml Syringe) 25 gm IVPUSH Q15M PRN; Protocol PRN Reason: per Hypoglycemia Standing Ord. Enoxaparin Sodium (Enoxaparin Sodium 40 Mg/0.4 Ml Syringe) 40 mg SUBCUT Q24H [facility] Last Admin: 06/11/22 01:34 Dose: 40 mg Documented By: SILVERIO Gabapentin (Gabapentin 100 Mg Capsule) 100 mg PO BEDTIME [facility] Last Admin: 06/10/22 20:33 Dose: 100 mg Documented By: SILVERIO Glucose (Glucose Gel 15 Gm Gel..Gram.) 15 gm PO Q15M PRN; Protocol PRN Reason: per Hypoglycemia Standing Ord. Hydrochlorothiazide (Hydrochlorothiazide 25 Mg Tablet) 25 mg PO DAILY [facility]; Protocol Last Admin: 06/11/22 08:12 Dose: 25 mg Documented By: SRIRAM Ceftriaxone Sodium 2 gm/ (Sodium Chloride) 50 mls @ 100 mls/hr IV Q24H [facility] Last Infusion: 06/10/22 22:03 Dose: 0 mls/hr Documented By: SILVERIO Insulin Glargine (Insulin Glargine,Hum.Rec.Anlog 100 Unit/Ml 10 Ml Vial) 13 unit SUBCUT BEDTIME [facility] Last Admin: 06/10/22 20:34 Dose: 13 unit Documented By: SILVERIO Insulin Human Lispro (Insulin Lispro 100 Unit/Ml 3 Ml Vial) 0.1 - 14 unit SUBCUT QIDACHS [facility]; Protocol Last Admin: 06/11/22 11:34 Dose: 4 unit Documented By: SRIRAM Lisinopril (Lisinopril 20 Mg Tablet) 20 mg PO DAILY [facility]; Protocol Last Admin: 06/11/22 08:12 Dose: 20 mg Documented By: SRIRAM Melatonin (Melatonin 3 Mg Tablet) 6 mg PO BEDTIME PRN PRN Reason: Insomnia Ondansetron HCl (Ondansetron Hcl 4 Mg/2 Ml Vial) 4 mg IVPUSH Q8H PRN PRN Reason: Nausea and Vomiting Pharmacy Consult (Consult Rx Perform Med Rec) 1 each MISCELLANE ONCE PRN PRN Reason: Consult order Sodium Chloride (0.9 % Sodium Chloride Flush 3 Ml Syringe) 3 ml IVFLUSH QSHIFT [facility] Last Admin: 06/11/22 08:12 Dose: 3 ml Documented By: SRIRAM Labs 06/11/22 05:33 06/11/22 05:33 Labs: Laboratory Results - last 24 hr 06/10/22 06/10/22 06/11/22 16:40 20:18 05:33 MCV 87.9 MCH 28.3 MCHC 32.2 RDW 13.2 Plt Count 306 MPV 8.9 L Immature Gran % (Auto) 0.9 H Neut % (Auto) 47.8 Lymph % (Auto) 41.7 H [place] % (Auto) 6.9 Eos % (Auto) 2.3 Baso % (Auto) 0.4 Lymph # (Auto) 4.4 [place] # (Auto) 0.7 Eos # (Auto) 0.2 Baso # (Auto) 0.0 Abs Immat Gran (auto) 0.10 H Absolute Neuts (auto) 5.1 Absolute Nucleated RBC 0.000 Nucleated RBC % (auto) 0.0 Anion Gap Estim Creat Clear Calc Estimated GFR POC Glucose 282 H 345 H Fasting Glucose Calcium Total Bilirubin AST ALT Alkaline Phosphatase Total Protein Albumin 06/11/22 06/11/22 06/11/22 05:33 07:25 11:10 MCV MCH MCHC RDW Plt Count MPV Immature Gran % (Auto) Neut % (Auto) Lymph % (Auto) [place] % (Auto) Eos % (Auto) Baso % (Auto) Lymph # (Auto) [place] # (Auto) Eos # (Auto) Baso # (Auto) Abs Immat Gran (auto) Absolute Neuts (auto) Absolute Nucleated RBC Nucleated RBC % (auto) Anion Gap 14 Estim Creat Clear Calc 80.1 Estimated GFR > 60 POC Glucose 213 H 178 H Fasting Glucose 236 H Calcium 9.3 Total Bilirubin < 0.2 AST 16 ALT 9 Alkaline Phosphatase 91 Total Protein 6.4 L Albumin 2.9 L Assessment and Plan (1) Sepsis: Status: Acute (2) UTI (urinary tract infection): Status: Acute (3) Hyperglycemia: Status: Acute (4) Depression: Status: Acute Plan 52-year-old male with pertinent history of mood disorder, insulin-dependent diabetes who presents to the emergency department via EMS on section 12, as per EMS patient was found in apartment alone, [address] was requested by behavioral health team due to not taking her medications including insulin, not showering and inbility to take care for herself. Remains hemodynamically stable 1.Sepsis due to UTI(Klebsiella )? -IV ceftriaxone day (5) -Consult ID -repeat blood cultures 2. Klebsiella bacteremia -sensitive to CTX..continue same pending ID consult 3.Acute type A lactic acidosis due to sepsis -resolved 4.Non-insulin dependent diabetes mellitus -poorly control -increase HS Lantus to outpatient dosing -add back oral agents as dictated by point cares -ADA diet 5.Hypertension/HLD -hydrochlorothiazide 25 mg, lisinopril 40 mg and isosorbide 30 mg and Lipitor 80 mg daily 6.Major depressive disorder/Failure to thrive:? -OK for dc with services Lovenox Full code Will require ongoing hospitalization for IV antibiotics to treat bacteremia Time Spent With Patient Time: Total time managing care of this patient today ____ minutes. Quality Stroke Does the patient have a stroke diagnosis?: No VTE Prior VTE?: No VTE Risk Level:: Medical - moderate - high VTE Device Contraindication: Treatment Not Indicated VTE Drug Contraindication: N/A - Med Ordered
[2022-06-11 14:48] VITALS: BP 141/88; PULSE 82; RESP 18; TEMP 36.3; O2SAT 97
--- NOTE | 2022-06-11 15:10 | MHC.CM.PN ---
[facility] OFFERING TO PROVIDE SN FOR PT, PT/FAMILY HAVE NO PREFERENCE AND [facility] UNABLE TO OFFER SERVICES PER [facility] TOMORROW W/ALLIED FOR SN AND SON JAYLIN FOR TRANSPORT.
--- NOTE | 2022-06-11 15:13 | P.CNID_ITS ---
History of Present Illness Data of Consult Service Date: 06/11/22 Requesting physician: Aquilino Zuniga Primary Care Provider: [facility] HPI Reason for consult: sepsis She was found weak and lethargic and not caring for self and brought to hospital. She had temperature of 102 and leukocytosis. She has Klebsiella pneumonia in blood and urine. She has diabetes. She is alert now. Review of Systems Review of Systems: Yes all other systems are reviewed and are negative [facility] Past Medical History Medical History (Updated 08/01/22 @ 00:02 by Brady Granger) Anemia Brain lesion Depression HLD (hyperlipidemia) Iron deficiency anemia Type 2 diabetes mellitus Family History Family History Other Hypertension Family history: reviewed and not pertinent Social History Social History Household Members: Family Housing: Apartment Do you presently have visiting nurse or other home services: Yes Alcohol intake: unknown Patient Tobacco Use Status: Never used Tobacco Advance Directives Date on File: 06/19/21 service: No Current occupational status: unemployed Meds Allergies Allergy/AdvReac Type Severity Reaction Status Date / Time shrimp Allergy Swelling Verified 06/07/22 08:58 Active Medications: Current Medications Acetaminophen (Acetaminophen 325 Mg Tablet) 650 mg PO Q6H PRN PRN Reason: Pain, Mild (Pain Scale 1-3) Last Admin: 06/07/22 15:24 Dose: 650 mg Atorvastatin Calcium (Atorvastatin Calcium 80 Mg Tablet) 80 mg PO DAILY [facility] Last Admin: 06/11/22 08:12 Dose: 80 mg Dextrose (Dextrose 50 % 25 Gm/50 Ml Syringe) 25 gm IVPUSH Q15M PRN; Protocol PRN Reason: per Hypoglycemia Standing Ord. Enoxaparin Sodium (Enoxaparin Sodium 40 Mg/0.4 Ml Syringe) 40 mg SUBCUT Q24H [facility] Last Admin: 06/11/22 01:34 Dose: 40 mg Gabapentin (Gabapentin 100 Mg Capsule) 100 mg PO BEDTIME [facility] Last Admin: 06/10/22 20:33 Dose: 100 mg Glucose (Glucose Gel 15 Gm Gel..Gram.) 15 gm PO Q15M PRN; Protocol PRN Reason: per Hypoglycemia Standing Ord. Hydrochlorothiazide (Hydrochlorothiazide 25 Mg Tablet) 25 mg PO DAILY [facility]; Protocol Last Admin: 06/11/22 08:12 Dose: 25 mg Ceftriaxone Sodium 2 gm/ (Sodium Chloride) 50 mls @ 100 mls/hr IV Q24H [facility] Last Infusion: 06/10/22 22:03 Dose: Infused Insulin Glargine (Insulin Glargine,Hum.Rec.Anlog 100 Unit/Ml 10 Ml Vial) 13 unit SUBCUT BEDTIME [facility] Last Admin: 06/10/22 20:34 Dose: 13 unit Insulin Human Lispro (Insulin Lispro 100 Unit/Ml 3 Ml Vial) 0.1 - 14 unit SUBCUT QIDACHS [facility]; Protocol Last Admin: 06/11/22 11:34 Dose: 4 unit Lisinopril (Lisinopril 20 Mg Tablet) 20 mg PO DAILY [facility]; Protocol Last Admin: 06/11/22 08:12 Dose: 20 mg Melatonin (Melatonin 3 Mg Tablet) 6 mg PO BEDTIME PRN PRN Reason: Insomnia Ondansetron HCl (Ondansetron Hcl 4 Mg/2 Ml Vial) 4 mg IVPUSH Q8H PRN PRN Reason: Nausea and Vomiting Pharmacy Consult (Consult Rx Perform Med Rec) 1 each MISCELLANE ONCE PRN PRN Reason: Consult order Sodium Chloride (0.9 % Sodium Chloride Flush 3 Ml Syringe) 3 ml IVFLUSH QSHIFT [facility] Last Admin: 06/11/22 08:12 Dose: 3 ml Home Medications Medication Instructions Recorded Confirmed Last Taken Type acetaminophen 325 mg tablet 325 mg PO DAILY PRN Pain 07/21/22 07/21/22 Unknown History aspirin 81 mg tablet,delayed 1 tab PO DAILY 07/21/22 07/21/22 07/21/22 History release atorvastatin 80 mg tablet 1 tab PO BEDTIME 07/21/22 07/21/22 Unknown History insulin glargine 100 unit/mL (3 30 unit subcut BEDTIME 07/21/22 07/21/22 Unknown History mL) subcutaneous pen (Lantus Solostar U-100 Insulin) insulin lispro 100 unit/mL See Protocol subcut TIDAC 07/21/22 07/21/22 Unknown History subcutaneous pen metformin 1,000 mg tablet 1 tab PO BID 07/21/22 07/21/22 07/21/22 History pioglitazone 30 mg tablet 1 tab PO DAILY 07/21/22 07/21/22 07/21/22 History Physical Exam Vital Signs: Vital Signs: Last Vital Signs Temp 97.4 F 06/11/22 14:48 Pulse 82 06/11/22 14:48 Resp 18 06/11/22 14:48 BP 141/88 H 06/11/22 14:48 Pulse Ox 97 06/11/22 14:48 O2 Del Method 06/11/22 14:48 BMI result Body Mass Index 23.8 Const: General: cooperative HEENT: Head: Yes normal to inspection Face and sinus: Yes normal facial exam Mouth: Normal oral and palatal mucosa present Teeth and gingiva: dentition normal Eyes: General: appearance normal, both eyes and all related structures Pupils: Equal, round and reactive pupils present Resp: Effort & Inspection: normal respiratory effort Cardio: Rate: regular rate Rhythm: regular rhythm GI: Palpation (GI): Soft to palpation and nontender : General: Yes no CVA tenderness Back/Spine/Pelvis: Back: no CVA tenderness Skin: General skin exam: no rashes or lesions noted Neuro: General: moves all extremities Cranial nerves: Yes Equal, round and reactive pupils present Extrem: General: Yes normal to inspection Psych: Appearance: grossly normal Results Labs 06/11/22 05:33 06/11/22 05:33 Labs: Short CBC 06/11/22 Range/Units 05:33 WBC 10.6 (4.8-10.8) X10*3/uL Hgb 8.7 L (12.0-16.0) g/dl Hct 27.0 L (37.0-47.0) % Plt Count 306 (160-400) X10*3/uL BMP 06/11/22 05:33 Sodium 138 Potassium 5.1 Chloride 99 Carbon Dioxide 30 H BUN 19 H Creatinine 0.76 Calcium 9.3 Liver Function 06/11/22 Range/Units 05:33 Total Bilirubin < 0.2 (0.0-1.0) mg/dL AST 16 (5-31) U/L ALT 9 (0-31) U/L Alkaline Phosphatase 91 (39-117) U/L Albumin 2.9 L (3.5-5.0) g/dL Microbiology Microbiology Results: Microbiology 06/07/22 00:52 Blood - Venous Blood Culture - Final Klebsiella pneumoniae 06/07/22 00:52 Blood - Venous Blood Culture - Final Klebsiella pneumoniae 06/07/22 00:00 Urine clean catch - Clean Catch Midstream Urine Culture - Final Klebsiella pneumoniae Lactobacillus species Assessment and Plan (1) UTI (urinary tract infection): Status: Resolved (2) Sepsis: Status: Resolved Sepsis is related to urinary infection Less likely but possible is urinary obstruction. Plan Consider CT or u/s abdomen evaluate obstruction. Po Ceftin to finish course likely 14 d total. Time Spent With Patient Time: Total time managing care of this patient today ____ minutes.
[2022-06-11 16:36] LABS: Glucose, Whole Blood 336 mg/dL (60-115)
[2022-06-11 19:05] VITALS: BP 126/59; PULSE 104; RESP 18; TEMP 36.9; O2SAT 98
[2022-06-11 19:56] LABS: Glucose, Whole Blood 332 mg/dL (60-115)
[2022-06-11] MEDS: Gabapentin 100 MG CAPSULE PO (21:10)
[2022-06-11] MEDS: Insulin Glargine,Hum.rec.anlog 100 UNIT/ML 10 ML VIAL 13 UNIT SUBCUT (21:12)
[2022-06-11] MEDS: cefTRIAXone sodium 2 GM in 0.9 % Sodium Chloride 50 ML IV (21:12)
[2022-06-12 03:11] VITALS: BP 103/55; PULSE 99; RESP 18; TEMP 36.9; O2SAT 97
[2022-06-12 05:29] LABS: MANUAL DIFF FLAG NO
[2022-06-12 05:33] LABS: Basophils Absolute Auto 0.1 X10*3/uL (0.0-0.2); Basophils Percent Auto 0.5 % (0-2); Eosinophils Absolute Auto 0.2 X10*3/uL (0.0-0.4); Hematocrit 26.4 % (37.0-47.0); Hemoglobin 8.6 g/dl (12.0-16.0); Imm Gran Abs Auto 0.22 X10*3/uL (0.00-0.03); Imm Gran Pct Auto 2.1 % (0.0-0.4); Lymphocytes Absolute Auto 4.4 X10*3/uL (1.2-4.9); Lymphocytes Percent Auto 42.6 % (20-40); Mean Corpuscular HGB Conc 32.6 g/dl (31.0-35.0); Mean Corpuscular Hemoglobin 28.8 pg (27.0-33.0); Mean Corpuscular Volume 88.3 fL (80.0-98.0); Mean Platelet Volume 8.8 fL (9.4-12.3); Monocytes Absolute Auto 0.8 X10*3/uL (0.1-1.2); Monocytes Percent Auto 7.3 % (2-11); Neutrophils Absolute Auto 4.7 x10*3/uL (2.0-8.3); Neutrophils Percent Auto 45.5 % (45-73); Platelet Count 314 X10*3/uL (160-400); Red Blood Count 2.99 X10*6/uL (4.20-5.50); Red Cell Distribution Width 13.2 % (11.0-16.0); White Blood Count 10.3 X10*3/uL (4.8-10.8)
[2022-06-12 06:07] LABS: Alanine Aminotransferase 18 U/L (0-31); Albumin Level 2.9 g/dL (3.5-5.0); Alkaline Phosphatase 114 U/L (39-117); Anion Gap 16 (12-20); Aspartate Amino Transferase 30 U/L (5-31); Bilirubin Total < 0.2 mg/dL (0.0-1.0); Blood Urea Nitrogen 31 mg/dL (9-16); Calcium 9.1 mg/dL (8.4-10.2); Carbon Dioxide 30 mmol/L (22-29); Chloride 94 mmol/L (96-108); Creatinine Clr Calc Pharmacy 59.7; Estimated Glomerular Filt Rate 57; Glucose Fasting 331 mg/dL (60-99); Potassium 5.4 mmol/L (3.3-5.1); Sodium 135 mmol/L (135-145); Total Protein 6.4 g/dL (6.5-8.0)
[2022-06-12 07:14] VITALS: BP 120/56; PULSE 87; RESP 18; TEMP 36.4; O2SAT 99
[2022-06-12 07:25] VITALS: BP 111/59; PULSE 106; RESP 20; TEMP 37; O2SAT 98
[2022-06-12 07:34] LABS: Glucose, Whole Blood 302 mg/dL (60-115)
[2022-06-12] MEDS: Insulin Lispro 100 UNIT/ML 3 ML VIAL SUBCUT ×2 (08:17→11:58)
[2022-06-12] MEDS: hydroCHLOROthiazide 25 MG TABLET PO (08:17)
[2022-06-12] MEDS: Atorvastatin Calcium 80 MG TABLET PO (08:17)
[2022-06-12] MEDS: 0.9 % Sodium Chloride Flush 3 ML SYRINGE IVFLUSH (08:17)
[2022-06-12] MEDS: lisinopriL 20 MG TABLET PO (08:17)
[2022-06-12 11:23] LABS: Glucose, Whole Blood 223 mg/dL (60-115)
--- NOTE | 2022-06-12 12:32 | MHC.CM.PN ---
Addendum entered by Cinthya Ferrell RN 06/12/22 12:36: D/C SUMMARY PAPER FAXED TO IB[facility] AT [employer] [phone] PER REQUEST, F2F REQUESTED Original Note: pt medically cleared for d/c home w/new [facility] for SN, son Gene will transport.
--- NOTE | 2022-06-12 12:34 | W.MHC.F2F ---
Service Date Service Date: 06/12/22 Encounter Date of encounter: 06/12/22 Encounter: Acute hospitalization Reasons for Services Signs and symptoms assessed: UTI with bacteremia causing confusion Reason for correction: neurological assessment, medication management, medication treatment and teach disease management Homebound: Leaving the home is medically contraindicated at this time without the asist of a device and/or another person due th the listed conditions above and below. Reason homebound: unsteady gait / fall risk and cognitively impaired / unsafe Certification: Based on the above findings, I certify that this patient is confined to the home and needs intermittent correction care, physical therapy and/or speech therapy, or continues to need occupational therapy. The patient is under my care, and I have initiated the establishment of the plan of care. The patient will be followed by a physician who will periodically review the plan of care. Time Spent With Patient Time: Total time managing care of this patient today ____ minutes.
== END 2022-06-12 13:43 | disposition home or self-care (01) | DRG 720 ==
LOC: HO.ED 06-07 02:01 → HO.EDOVER 06-07 03:02 → HO.S3 06-07 14:21
PROVIDERS: Hospitalist; Physician Assistant; Admitting Provider Student in an Organized Health Care Education/Training Program; Emergency Provider Emergency Medicine; PCP General Practice; Visit Provider Hospitalist
DX: A41.9 Sepsis, unspecified organism (principal); E87.21 Acute metabolic acidosis; R62.7 Adult failure to thrive; E11.65 Type 2 diabetes mellitus 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; D64.9 Anemia, unspecified; E11.40 Type 2 diabetes mellitus with diabetic neuropathy, unspecified; B96.1 Klebsiella pneumoniae [K. pneumoniae] as the cause of diseases classified elsewhere; E78.5 Hyperlipidemia, unspecified; F32.9 Major depressive disorder, single episode, unspecified; N39.0 Urinary tract infection, site not specified; Z91.14 Patient's other noncompliance with medication regimen; Z68.23 Body mass index [BMI] 23.0-23.9, adult; Z20.822 Contact with and (suspected) exposure to COVID-19
CPT/HCPCS: 36415; 71045; 74176; 80048; 80053; 80143; 80179; 80307; 81001; 82009; 82077; 82728; 82803; 82947; 83036; 83540; 83605; 83735; 85025; 85027; 87040; 87077; 87086; 87088; 87186; 87205; 87502; 87635; 93005; 99285; J0131; J0696; J1650; S9485

== ENCOUNTER 2022-07-16 12:01 | Emergency (ER) | payer MEDICAID, SELFPAY ==
[2022-07-16 12:13] VITALS: BP 193/73; PULSE 107; RESP 14; TEMP 36.7; O2SAT 100
[2022-07-16 12:18] VITALS: BP 182/108; PULSE 106; O2SAT 100; BMI 23.9
[2022-07-16 12:24] LABS: Glucose, Whole Blood 182 mg/dL (60-115)
--- NOTE | 2022-07-16 13:08 | ED_ITS ---
HPI - General Adult General Chief complaint: Recheck/Abnormal Lab/Rx Stated complaint: FAM WANTS MED EVAL FOR POSSIBLE INF,PT HAS NO COMP Time Seen by Provider: 07/16/22 13:01 Source: patient Mode of arrival: ambulatory Limitations: no limitations History of Present Illness HPI narrative: 52-year-old female with history of diabetes presents with possible urinary tract infection. She was seen by her primary care doctor recently was told she has UTI was sent to the emergency department. Patient reports of recent history of urosepsis. She denies any fever, chills, urinary frequency, urgency, dysuria or hematuria. There is no relieving or exacerbating features. Her symptoms are non-existent. Patient has felt well since her treatment for urosepsis. Related Data Previous Rx's Medication Instructions Recorded cefuroxime axetil 500 mg tablet 500 mg PO BID 7 days #14 tabs 06/11/22 cephalexin 500 mg tablet 500 mg PO BID #14 tabs 07/16/22 potassium chloride 20 mEq oral 20 meq PO DAILY #5 ea 07/16/22 packet Allergies Allergy/AdvReac Type Severity Reaction Status Date / Time shrimp Allergy Swelling Verified 06/07/22 08:58 Review of Systems Review of Systems: CONSTITUTIONAL: Denies weight loss, fever and chills. HEENT: Denies changes in vision and hearing. RESPIRATORY: Denies SOB and cough. CV: Denies palpitations no CP. GI: Denies abdominal pain, nausea, vomiting and diarrhea. : Denies dysuria and urinary frequency. MSK: Denies myalgia and joint pain. SKIN: Denies rash and pruritus. NEUROLOGICAL: Denies headache and syncope. PSYCHIATRIC: Denies recent changes in mood. Denies anxiety and depression. All other ROS are negative unless in HPI PMFSH Past Medical History Medical History Depression Type 2 diabetes mellitus Family History Family History Other Hypertension Social History Social History Household Members: Children Housing: Apartment Do you presently have visiting nurse or other home services: No Alcohol intake: unknown Patient Tobacco Use Status: Never used Tobacco Smoked in Last 30 Days: No Use of substances other than those prescribed or required for medical reasons: No Advance Directives: Yes Advance Directives on File: Yes Advance Directives Date on File: 06/19/21 Patient : No service: No Current occupational status: unemployed Physical Exam ED Vital Signs: Vital Signs - 24 hr 07/16/22 12:13 07/16/22 14:52 Temperature 98.1 F 98.3 F Pulse Rate 107 H 98 Respiratory Rate 14 14 Blood Pressure 193/73 H 211/95 H Pulse Oximetry 100 100 Oxygen Delivery Method Room Air Room Air BMI result Body Mass Index 23.9 GEN: Well developed, no acute distress, alert, oriented HEENT: Normocephalic, atraumatic, normal external ears, nose appears normal, no oropharyngeal edema or exudates Eyes: Normal to appearance Neck: Supple, no lymphadenopathy Respiratory: Talks in complete sentences, no respiratory distress, clear to auscultation bilaterally Cardiovascular: Regular rate and rhythm, no murmurs rubs or gallops Abdomen: Soft, nontender, nondistended, no guarding, no rebound Back: No CVA tenderness Extremities: No clubbing cyanosis or edema Neurologic: No focal neurologic deficits, cranial nerves 2-12 intact, strength is 5/5 bilaterally, gait normal Skin: No rash Course Course Course Narrative: 52-year-old female with diabetes presents for possible urosepsis. She is asymptomatic. Examination is benign. Will check urinalysis, CBC and lactic acid. Reevaluation(s) Reevaluation #1: Lab work is back. There is no evidence of sepsis. There is UTI hyperkalemia. Will give her supplemental potassium and an oral antibiotic. Prescription will be sent to her pharmacy. Patient and her son are aware that repeat lab testing later this week would be appropriate for her potassium level. Time: 14:39 Reevaluation #2: Lactic acid did improve after IV fluids. She is on metformin. This is likely a contributing factor to her lactic acidosis. Patient will be discharged at this time. Discussed care with the patient as well as her son. All questions were addressed and answered. Time: 17:34 Medications Administered Discontinued Medications Generic Name Dose Route Start Last Admin Trade Name Freq PRN Reason Stop Dose Admin Sodium Chloride 1,000 mls @ 999 mls/hr 07/16/22 14:45 07/16/22 15:50 Ns IV 07/16/22 15:45 Infused .Q1H1M JM Infusion Ceftriaxone Sodium 1 gm/ 50 mls @ 100 mls/hr 07/16/22 14:44 07/16/22 15:49 Sodium Chloride IV 07/16/22 15:13 Infused ONCE ONE Infusion Lisinopril 10 mg 07/16/22 15:17 07/16/22 15:59 Lisinopril 10 Mg Tablet PO 07/16/22 15:18 10 mg ONCE ONE Administration Protocol Potassium Chloride 40 meq 07/16/22 14:43 07/16/22 15:01 Potassium Chloride Packet 20 Meq Packet PO 07/16/22 14:44 40 meq ONCE ONE Administration Medical Decision Making Medical Decision Making [facility] Narrative: 52-year-old female with diabetes presents for possible urosepsis. She is asymptomatic. Examination is benign. Will check urinalysis, CBC and lactic acid. Differential Diagnosis Differential Diagnoses: The differential diagnosis associated with the presentation includes (Lab error, UTI, urosepsis electrolyte abnormality, diabetes) UTI, hypokalemia Admission/Observation Consideration of admission/observation: Escalation of care including admission/observation considered Lab Data [facility] Lab Attestation statement: I reviewed the patient's lab results. 07/16/22 14:04 07/16/22 14:04 Labs: Lab Results 07/16/22 07/16/22 07/16/22 Range/Units 12:20 14:04 14:04 WBC 7.4 (4.8-10.8) X10*3/uL RBC 3.39 L (4.20-5.50) X10*6/uL Hgb 9.7 L (12.0-16.0) g/dl Hct 29.5 L (37.0-47.0) % MCV 87.0 (80.0-98.0) fL MCH 28.6 (27.0-33.0) pg MCHC 32.9 (31.0-35.0) g/dl RDW 13.9 (11.0-16.0) % Plt Count 192 D (160-400) X10*3/uL MPV 8.5 L (9.4-12.3) fL Immature Gran % (Auto) 0.8 H (0.0-0.4) % Neut % (Auto) 57.5 (45-73) % Lymph % (Auto) 35.9 (20-40) % [place] % (Auto) 4.3 (2-11) % Eos % (Auto) 1.2 (0-4) % Baso % (Auto) 0.3 (0-2) % Lymph # (Auto) 2.7 (1.2-4.9) X10*3/uL [place] # (Auto) 0.3 (0.1-1.2) X10*3/uL Eos # (Auto) 0.1 (0.0-0.4) X10*3/uL Baso # (Auto) 0.0 (0.0-0.2) X10*3/uL Abs Immat Gran (auto) 0.06 H (0.00-0.03) X10*3/uL Absolute Neuts (auto) 4.3 (2.0-8.3) x10*3/uL Absolute Nucleated RBC 0.000 (0.0-0.012) X10*3/uL Nucleated RBC % (auto) 0.0 (0.0-0.2) /100WBC Sodium 145 (135-145) mmol/L Potassium 3.0 L D (3.3-5.1) mmol/L Chloride 109 H (96-108) mmol/L Carbon Dioxide 29 (22-29) mmol/L Anion Gap 10 L (12-20) BUN 8 L (9-16) mg/dL Creatinine 0.58 (0.5-1.4) mg/dL Estim Creat Clear Calc 105.0 Estimated GFR > 60 POC Glucose 182 H (60-115) mg/dL Random Glucose 140 H (60-115) mg/dL Lactic Acid (0.5-2.0) mmol/L Lactic Acid F/U @ 2Hr (0.5-2.0) mmol/L Calcium 8.6 (8.4-10.2) mg/dL Total Bilirubin 0.2 (0.0-1.0) mg/dL AST 26 (5-31) U/L ALT 18 (0-31) U/L Alkaline Phosphatase 65 (39-117) U/L Total Protein 6.2 L (6.5-8.0) g/dL Albumin 3.1 L (3.5-5.0) g/dL Urine Color Urine Appearance Urine pH (5.0-9.0) Ur Specific [place] (1.005-1.025) Urine Protein (Neg-Trace) mg/dL Urine Glucose (UA) (Negative) mg/dL Urine Ketones (Negative) mg/dL Urine Blood (Negative) Urine Nitrite (Negative) Ur Leukocyte Esterase (Negative) Urine RBC (0-2) /HPF Urine WBC (0-5) /HPF Urine WBC Clumps Ur Squamous Epith Cells (0-2) /HPF Urine Bacteria (None Seen) Hyaline Casts (0-2) /LPF 07/16/22 07/16/22 07/16/22 Range/Units 14:04 14:04 16:35 WBC (4.8-10.8) X10*3/uL RBC (4.20-5.50) X10*6/uL Hgb (12.0-16.0) g/dl Hct (37.0-47.0) % MCV (80.0-98.0) fL MCH (27.0-33.0) pg MCHC (31.0-35.0) g/dl RDW (11.0-16.0) % Plt Count (160-400) X10*3/uL MPV (9.4-12.3) fL Immature Gran % (Auto) (0.0-0.4) % Neut % (Auto) (45-73) % Lymph % (Auto) (20-40) % [place] % (Auto) (2-11) % Eos % (Auto) (0-4) % Baso % (Auto) (0-2) % Lymph # (Auto) (1.2-4.9) X10*3/uL [place] # (Auto) (0.1-1.2) X10*3/uL Eos # (Auto) (0.0-0.4) X10*3/uL Baso # (Auto) (0.0-0.2) X10*3/uL Abs Immat Gran (auto) (0.00-0.03) X10*3/uL Absolute Neuts (auto) (2.0-8.3) x10*3/uL Absolute Nucleated RBC (0.0-0.012) X10*3/uL Nucleated RBC % (auto) (0.0-0.2) /100WBC Sodium (135-145) mmol/L Potassium (3.3-5.1) mmol/L Chloride (96-108) mmol/L Carbon Dioxide (22-29) mmol/L Anion Gap (12-20) BUN (9-16) mg/dL Creatinine (0.5-1.4) mg/dL Estim Creat Clear Calc Estimated GFR POC Glucose (60-115) mg/dL Random Glucose (60-115) mg/dL Lactic Acid 2.2 H* (0.5-2.0) mmol/L Lactic Acid F/U @ 2Hr 1.8 (0.5-2.0) mmol/L Calcium (8.4-10.2) mg/dL Total Bilirubin (0.0-1.0) mg/dL AST (5-31) U/L ALT (0-31) U/L Alkaline Phosphatase (39-117) U/L Total Protein (6.5-8.0) g/dL Albumin (3.5-5.0) g/dL Urine Color Yellow Urine Appearance Cloudy Urine pH 6.0 (5.0-9.0) Ur Specific [place] <= 1.005 (1.005-1.025) Urine Protein 30 (1+) H (Neg-Trace) mg/dL Urine Glucose (UA) 500 H (Negative) mg/dL Urine Ketones Negative (Negative) mg/dL Urine Blood Small (1+) H (Negative) Urine Nitrite Negative (Negative) Ur Leukocyte Esterase Large (3+) H (Negative) Urine RBC 0-2 (0-2) /HPF Urine WBC >50 H (0-5) /HPF Urine WBC Clumps Present Ur Squamous Epith Cells 3-5 (0-2) /HPF Urine Bacteria 2+ (None Seen) Hyaline Casts 3-5 (0-2) /LPF Independent Historian Clinical information obtained from an independent historian. History obtained from or confirmed by: Other (Family) External Record Review External record reviewed: Inpatient record Prescription Management I considered prescription management with: Antibiotic Chronic Conditions Patient?s care impacted by: Diabetes Discharge Plan Discharge Clinical Impression: UTI (urinary tract infection), Acute hypokalemia, Elevated blood pressure reading Patient Disposition: Home, Self-Care Instructions: Potassium Content of Foods List (ED), Hypokalemia (ED), Hypertension (ED) Prescriptions: New cephalexin 500 mg tablet 500 mg PO BID Qty: 14 0RF potassium chloride 20 mEq packet 20 meq PO DAILY Qty: 5 0RF No Action cefuroxime axetil 500 mg tablet 500 mg PO BID 7 Days Qty: 14 0RF Referrals: Physician,Unknown J [Primary Care Provider] - 3 days (repeat potassium level) Print Language: Italian
[2022-07-16 14:16] LABS: MANUAL DIFF FLAG NO
[2022-07-16 14:19] LABS: Basophils Percent Auto 0.3 % (0-2); Eosinophils Absolute Auto 0.1 X10*3/uL (0.0-0.4); Eosinophils Percent Auto 1.2 % (0-4); Hematocrit 29.5 % (37.0-47.0); Hemoglobin 9.7 g/dl (12.0-16.0); Imm Gran Abs Auto 0.06 X10*3/uL (0.00-0.03); Imm Gran Pct Auto 0.8 % (0.0-0.4); Lymphocytes Absolute Auto 2.7 X10*3/uL (1.2-4.9); Lymphocytes Percent Auto 35.9 % (20-40); Mean Corpuscular HGB Conc 32.9 g/dl (31.0-35.0); Mean Corpuscular Hemoglobin 28.6 pg (27.0-33.0); Mean Platelet Volume 8.5 fL (9.4-12.3); Monocytes Absolute Auto 0.3 X10*3/uL (0.1-1.2); Monocytes Percent Auto 4.3 % (2-11); Neutrophils Absolute Auto 4.3 x10*3/uL (2.0-8.3); Neutrophils Percent Auto 57.5 % (45-73); Platelet Count 192 X10*3/uL (160-400); Red Blood Count 3.39 X10*6/uL (4.20-5.50); Red Cell Distribution Width 13.9 % (11.0-16.0); White Blood Count 7.4 X10*3/uL (4.8-10.8)
[2022-07-16 14:20] LABS: Appearance Urine Cloudy; Color Urine Yellow; Glucose Urine UA 500 mg/dL (Negative); Leukocyte Esterase Urine Large (3+) (Negative); Nitrite Urine Negative (Negative); Specific Gravity - Urine <= 1.005 (1.005-1.025); UMIC TRIGGER UACC YES; Urine Blood Small (1+) (Negative); Urine Ketones Negative (Negative); Urine Protein 30 (1+) mg/dL (Neg-Trace)
[2022-07-16 14:30] LABS: Bacteria Urine 2+ (None Seen); RBC Urine 0-2 /HPF (0-2); UACC Culture Trigger YES; WBC Clumps Urine Present; WBC Urine >50 /HPF (0-5)
[2022-07-16 14:34] LABS: Alanine Aminotransferase 18 U/L (0-31); Albumin Level 3.1 g/dL (3.5-5.0); Alkaline Phosphatase 65 U/L (39-117); Anion Gap 10 (12-20); Aspartate Amino Transferase 26 U/L (5-31); Bilirubin Total 0.2 mg/dL (0.0-1.0); Blood Urea Nitrogen 8 mg/dL (9-16); Calcium 8.6 mg/dL (8.4-10.2); Carbon Dioxide 29 mmol/L (22-29); Chloride 109 mmol/L (96-108); Estimated Glomerular Filt Rate > 60; Glucose Random 140 mg/dL (60-115); Sodium 145 mmol/L (135-145); Total Protein 6.2 g/dL (6.5-8.0)
[2022-07-16 14:40] LABS: Lactic Acid 2.2 mmol/L (0.5-2.0)
[2022-07-16 14:52] VITALS: BP 211/95; PULSE 98; RESP 14; TEMP 36.8; O2SAT 100
--- NOTE | 2022-07-16 14:58 | MHC.EDTECH ---
RN aware and MD aware of high bp high bp on both arms
[2022-07-16] MEDS: 0.9 % Sodium Chloride 1,000 ML 999 ML IV (15:00)
[2022-07-16] MEDS: Potassium Chloride Packet 20 MEQ PACKET 40 MEQ PO (15:01)
[2022-07-16] MEDS: cefTRIAXone sodium 1 GM in 0.9 % Sodium Chloride 50 ML IV (15:01)
[2022-07-16] MEDS: lisinopriL 10 MG TABLET PO (15:59)
[2022-07-16 16:12] LABS: Reflex Lactate? Lactic Acid Added
[2022-07-16 17:11] LABS: ~Lactic Acid-LAB USE ONLY 1.8 mmol/L (0.5-2.0)
[2022-07-16 17:59] VITALS: BP 143/101; PULSE 107; RESP 18; O2SAT 99
== END 2022-07-16 18:24 | disposition home or self-care (01) ==
PROVIDERS: Emergency Provider Emergency Medicine
DX: N39.0 Urinary tract infection, site not specified (principal); E23.2 Diabetes insipidus; R03.0 Elevated blood-pressure reading, without diagnosis of hypertension; Z79.899 Other long term (current) drug therapy
CPT/HCPCS: 36415; 80053; 81001; 82947; 83605; 85025; 87086; 96361; 96374; 99284; J0696

== ENCOUNTER 2022-07-21 12:28 | Inpatient (IN) | payer MEDICAID, SELFPAY ==
[2022-07-21] VITALS (7 sets, daily range): BP systolic 138–180; BP diastolic 65–84; PULSE 81–113; RESP 16–18; TEMP 36.6–37.2; O2SAT 88–98; BMI 33.7
--- NOTE | ~2022-07-21 | MR_ITS ---
EXAMINATION: MR BRAIN WITHOUT AND WITH CONTRAST CLINICAL INFORMATION: Evaluate for malignancy. COMPARISON: Prior brain MRI dated 07/31/2006. TECHNIQUE: Multiplanar, multisequence imaging of the brain was performed before and after the intravenous administration of 7 mL of Gadavist. Limited study with motion artifacts. FINDINGS: There is ex vacuo dilatation of the temporal horn of the left lateral ventricle with gliosis and volume loss in the left temporal pole, new compared to prior imaging. There is disproportionate volume loss in the left hippocampus as compared to the right side corresponding mild T2 hyperintense signal abnormality. The ventricular system is more patulous in appearance compared to the prior study, without evidence of hydrocephalus. Significant motion artifacts limit assessment on postcontrast imaging. Otherwise, no definite pathologic parenchymal or leptomeningeal enhancement is seen. No diffusion abnormalities are identified to suggest an acute infarct. No mass effect or midline shift is seen. Nonspecific mild scattered white matter signal changes have progressed since the previous study. No extra-axial fluid collections are seen. The brainstem and cerebellum are normal. The gradient refocused acquisition is normal. The craniovertebral junction, marrow signal, and midline structures are normal. The major intracranial flow voids at the level of the campo of [place] are preserved. The dural venous sinus flow voids are maintained. There is moderate right frontal sinus mucosal thickening with aerosolized secretions. [id number] ethmoid sinus mucosal thickening visible. There is mild mucosal thickening as well in the maxillary sinus cavities. The mastoid air cells are well aerated. MR/MR head/brain wo/w con IMPRESSION: Significant motion artifacts which limit assessment. Given degree of motion, assessment for small lesions is limited. Otherwise, no definite abnormal parenchymal or leptomeningeal enhancement is seen. Volume loss and encephalomalacia in the left temporal pole. Ex vacuo dilatation of the temporal horn of the left lateral ventricle. 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 Nonspecific mild scattered white matter signal changes which may be due to chronic microangiopathy. Patchy areas of [id number] mucosal thickening and aerosolized secretions in the paranasal sinuses.
--- NOTE | ~2022-07-21 | CT_ITS ---
EXAMINATION: CT HEAD WITHOUT CONTRAST CLINICAL INFORMATION: Blurry vision and syncope. COMPARISON: CT head 06/16/2021. TECHNIQUE: Contiguous axial imaging was performed from the skull base to vertex without intravenous administration of contrast. This CT examination was performed using dose optimization techniques as appropriate, variously including the following: *Automated exposure control *Adjustment of mA and/or kV according to patient size (this includes techniques or standardized protocols for targeted exams where dose is matched to indication/reason for exam; i.e. extremities or head) *Use of iterative reconstruction technique DLP: 582 mGy-cm FINDINGS: There is asymmetric loss of parenchymal volume within the left anterior temporal lobe with corresponding ex vacuo enlargement of the left temporal horn. Hardy-white matter differentiation is otherwise preserved and there is no evidence of acute territorial infarct. No acute hemorrhage or abnormal extra-axial collection. No midline shift or hydrocephalus. The calvarium and skull base are intact. Mastoid air cells and middle ear cavities are well aerated. Mild to moderate paranasal sinus disease primarily affecting the ethmoid air cells and maxillary sinuses. Globes and orbits are grossly symmetric. CT/CT head/brain wo IV con IMPRESSION: There is asymmetric loss of parenchymal volume within the left anterior temporal lobe with corresponding ex vacuo enlargement of the left temporal horn. These findings are new when compared to prior MR imaging of the brain from 06/16/2021. A dedicated brain MRI without and with contrast using a seizure protocol can be undertaken for better anatomic characterization of this finding. Otherwise unremarkable examination.
--- NOTE | ~2022-07-21 | CT_ITS ---
EXAMINATION: CT CHEST WITHOUT CONTRAST CLINICAL INFORMATION: Shortness of breath. Hypoxia. Effusion. CHF versus pneumonia. COMPARISON: Chest x-ray dated 07/21/2022 and 06/07/2022. CT scan of the abdomen dated 11/06/2019. TECHNIQUE: Multidetector volumetric CT imaging of the chest was obtained noncontrast. Sagittal and coronal reformations were obtained. This CT examination was performed using dose optimization techniques as appropriate, variously including the following: *Automated exposure control *Adjustment of mA and/or kV according to patient size (this includes techniques or standardized protocols for targeted exams where dose is matched to indication/reason for exam; i.e. extremities or head) *Use of iterative reconstruction technique DLP: 295 mGy-cm. FINDINGS: LUNGS: There are moderate-sized posterior layering pleural effusion seen extending up to the lung apices, measuring simple fluid density without definite pleural thickening or calcification seen on noncontrast exam. Evaluation of the lungs is significantly limited due to extensive breathing motion artifact. There are dependent atelectatic changes seen in the right lower lobe. In the left lower lobe and in the lingula, dense areas of consolidation with air bronchograms are noted. There are also patchy groundglass opacities seen throughout the left lung with ill-defined peribronchial vascular groundglass and subsolid nodular opacities seen. Findings are suspicious for pneumonia in the left lower lobe and lingula with endobronchial spread of disease to the left upper lobe. No interlobular septal thickening is seen. The central airways are patent. LYMPHOVASCULAR STRUCTURES: Aortic and heart size normal. No pericardial effusion. No mediastinal, hilar or axillary adenopathy. CORONARY ARTERY CALCIFICATION: None visualized on this study. THYROID GLAND: Unremarkable to the extent included. UPPER ABDOMEN: Cholecystectomy pedro seen in the upper abdomen. Tiny punctate calcified granuloma in the inferior liver. Included portions of the solid organs in the upper abdomen within normal limits. BONES: Diffuse osteopenia with mild superior endplate compression deformity of L1 noted, new from prior CT scan of the abdomen from 11/06/2019. Prominent Schmorl's nodes seen at multiple levels in the thoracic spine. Moderate degenerative disc disease at the thoracolumbar junction and mild vertebral spondylosis in upper lumbar spine and lower cervical spine. No suspicious focal findings. OTHER: Mild diffuse anasarca in the soft tissues is noted, suggesting volume overload. CT/CT chest wo IV con IMPRESSION: 1. Limited exam due to extensive breathing motion artifact. 2. Moderate-sized left-sided pleural effusion is seen with dense areas of consolidation in the left lower lobe and lingula and patchy groundglass and subsolid nodular opacities seen throughout the left lung. Findings are suspicious for multifocal pneumonia. 3. Dependent atelectatic changes in the right lower lobe subjacent to a large right-sided effusion. 4. Mild anasarca in the soft tissues, suggesting volume overload. 5. Osteopenia with mild superior endplate compression deformity of L1.
--- NOTE | ~2022-07-21 | XR_ITS ---
EXAMINATION: XR CHEST CLINICAL INFORMATION: Hypoxia. COMPARISON: 06/06/2022 chest radiograph. TECHNIQUE: Frontal view of the chest was obtained. FINDINGS: Left basilar opacification is seen. The left upper lung field and right lung are clear. The heart and mediastinal structures are unremarkable. XR/XR chest 1V IMPRESSION: Probable small left pleural effusion with superjacent atelectasis/infiltrate.
--- NOTE | 2022-07-21 12:39 | ED_ITS ---
HPI - General Adult General Chief complaint: General Medical Stated complaint: Diff thriving, insulin/diabetic issue per EMS Time Seen by Provider: 07/21/22 12:34 Source: patient, EMS and old records reviewed Mode of arrival: EMS Limitations: no limitations History of Present Illness HPI narrative: 52 yo Nepali speaking female with history of DM2, recent diagnosis of UTI and hypokalemia on 07/16 discharged on PO abx who presents to the ER from home via EMS for evaluation of vision problems. She is a poor historian. She reports that since last night she started having difficulty seeing and was having blurred v ision. She couldn't read the POC on her glucometer. She states she woke up this morning with some soreness and discharge of the right eye. She states the vision is better and she can see again now. She denies any associated headache. She reports weakness and generally not feeling well. No fevers. No chest pain. EMS took POC 114. complaint: vision changes Onset (ago): day(s) (1) Location: face Radiation: non-radiation Severity: severe Pain Consistency: now resolved Relieving factors: none Exacerbating factors: none Associated symptoms: weakness Treatments prior to arrival: none Related Data Previous Rx's Medication Instructions Recorded cefuroxime axetil 500 mg tablet 500 mg PO BID 7 days #14 tabs 06/11/22 cephalexin 500 mg tablet 500 mg PO BID #14 tabs 07/16/22 potassium chloride 20 mEq oral 20 meq PO DAILY #5 ea 07/16/22 packet Allergies Allergy/AdvReac Type Severity Reaction Status Date / Time shrimp Allergy Swelling Verified 06/07/22 08:58 Review of Systems Review of Systems: Yes all other systems are reviewed and are negative FORMERLY [facility], [facility] Past Medical History Medical History Depression Type 2 diabetes mellitus Family History Family History Other Hypertension Social History Social History Household Members: Children Housing: Apartment Do you presently have visiting nurse or other home services: No Alcohol intake: unknown Patient Tobacco Use Status: Never used Tobacco Advance Directives: Yes Advance Directives on File: Yes Advance Directives Date on File: 02/14/22 service: No Current occupational status: unemployed Physical Exam ED Vital Signs: Vital Signs - 24 hr 07/21/22 12:42 07/21/22 15:14 07/21/22 15:45 Temperature 98.4 F Pulse Rate 113 H 108 H Respiratory Rate 16 16 Blood Pressure 148/67 H 180/84 H Pulse Oximetry 98 95 88 L Oxygen Delivery Method Room Air Nasal Cannula Room Air Oxygen Flow Rate 2 BMI result Body Mass Index 33.7 Appearance: Alert. Oriented X3. No acute distress. Eyes: right eye sclera with injection, watery discharge, Pupils equal, round and reactive to light. ENT: Pharynx normal. Poor dentition Neck: Normal inspection. Neck supple. CVS: Normal heart rate and rhythm. Pulses normal. Respiratory: No respiratory distress. Breath sounds normal. Abdomen: Soft and nontender. +BS x4 Skin: Skin warm and dry. Normal skin color. Normal skin turgor. No rashes. Extremities: No lower extremity edema. Neuro: Oriented X 3. Normal speech. Moves all extremities, strength equal and symmetrical throughout Course Reevaluation(s) Reevaluation #1: patient found to be saturating in the 70s by tech - good wave form. no SOB. placed on 2L NC with improvement into the 90s. attempted to wean off and sats decreased to mid 80s again. back on 2L NC Time: 15:08 Medications Administered Discontinued Medications Generic Name Dose Route Start Last Admin Trade Name Freq PRN Reason Stop Dose Admin Cefepime HCl 2 gm/ Sodium 50 mls @ 100 mls/hr 07/21/22 15:50 07/21/22 16:32 Chloride IV 07/21/22 16:19 100 mls/hr ONCE ONE Administration Medical Decision Making Medical Decision Making [facility] Narrative: 52-year-old female with history of depression, insulin dependent diabetes, anemia who is presenting to the ER for evaluation of transient vision changes. On arrival to the ER she states her vision is resolved. It appears that her right eye is injected with clear amount of moderate discharge. Question conjunctivitis. She states she feels weak. She denies any other physical complaints. Patient was found to be hypoxic in the emergency department. SpO2 dropped down into the 70s. She was placed on supplemental oxygen and has been unable to be weaned off. Whenever taken off of oxygen her oxygen saturations drop into the mid 80s. Chest x-ray showing a moderate-sized left-sided pleural effusion with an associated retrocardiac opacity. She came in to the emergency department tachycardic but afebrile. She was also found to have worsening anemia with guaiac-negative stools. She was recently admitted to psych [place]. Will cover for possible left lower lobe pneumonia with cefepime. Will plan to admit the hospital for further management. Differential Diagnosis Differential Diagnoses: The differential diagnosis associated with the presentation includes Blurred vision due to hyperglycemia or hypoglycemia, diabetic retinopathy, conjunctivitis, iritis, doubt glaucoma or retinal detachment Hypoxia due to left-sided pleural effusion versus pneumonia verses pneumonitis verses asymmetric pulmonary edema Admission/Observation Consideration of admission/observation: Escalation of care including admission/observation considered Hypoxia requiring supplemental oxygen and admission to the hospital Consult Healthcare Provider Management of the patient was discussed with: Hospitalist Lab Data MDM Lab Attestation statement: I reviewed the patient's lab results. No leukocytosis, worsening anemia with hemoglobin down to 7.8. Guaiac-negative stool not consistent with GI losses. 07/21/22 13:39 07/21/22 13:39 Labs: Lab Results 07/21/22 07/21/22 07/21/22 Range/Units 13:39 13:39 13:39 WBC 7.5 (4.8-10.8) X10*3/uL RBC 2.71 L D (4.20-5.50) X10*6/uL Hgb 7.8 L (12.0-16.0) g/dl Hct 24.7 L (37.0-47.0) % MCV 91.1 (80.0-98.0) fL MCH 28.8 (27.0-33.0) pg MCHC 31.6 (31.0-35.0) g/dl RDW 15.2 (11.0-16.0) % Plt Count 207 (160-400) X10*3/uL MPV 8.5 L (9.4-12.3) fL Immature Gran % (Auto) 0.5 H (0.0-0.4) % Neut % (Auto) 62.6 (45-73) % Lymph % (Auto) 28.4 (20-40) % [place] % (Auto) 6.9 (2-11) % Eos % (Auto) 1.3 (0-4) % Baso % (Auto) 0.3 (0-2) % Lymph # (Auto) 2.1 (1.2-4.9) X10*3/uL [place] # (Auto) 0.5 (0.1-1.2) X10*3/uL Eos # (Auto) 0.1 (0.0-0.4) X10*3/uL Baso # (Auto) 0.0 (0.0-0.2) X10*3/uL Abs Immat Gran (auto) 0.04 H (0.00-0.03) X10*3/uL Absolute Neuts (auto) 4.7 (2.0-8.3) x10*3/uL Absolute Nucleated RBC 0.000 (0.0-0.012) X10*3/uL Nucleated RBC % (auto) 0.0 (0.0-0.2) /100WBC Sodium 142 (135-145) mmol/L Potassium 4.3 D (3.3-5.1) mmol/L Chloride 108 (96-108) mmol/L Carbon Dioxide 29 (22-29) mmol/L Anion Gap 9 L (12-20) BUN 14 (9-16) mg/dL Creatinine 0.68 (0.5-1.4) mg/dL Estim Creat Clear Calc 88.6 Estimated GFR > 60 Random Glucose 105 (60-115) mg/dL Lactic Acid (0.5-2.0) mmol/L Calcium 8.5 (8.4-10.2) mg/dL Magnesium 2.3 (1.6-2.6) mg/dL Iron 26 L (30-160) mcg/dL TIBC 247 (228-428) mcg/dL % Saturation 11 L (15-50) % Unsat Iron Binding 221 ug/dL Total Bilirubin 0.4 (0.0-1.0) mg/dL Direct Bilirubin < 0.2 (0.0-0.5) mg/dL AST 107 H (5-31) U/L ALT 88 H (0-31) U/L Alkaline Phosphatase 159 H (39-117) U/L Lactate Dehydrogenase 343 H (122-220) U/L B-Natriuretic Peptide (<100) pg/mL Total Protein 6.1 L (6.5-8.0) g/dL Albumin 3.0 L (3.5-5.0) g/dL Procalcitonin ng/mL Stool Occult Blood (NEGATIVE) COVID-19 (RICKY) Negative (Negative) COVID-19 Clin Com See Note 07/21/22 07/21/22 07/21/22 Range/Units 13:40 14:22 15:59 WBC (4.8-10.8) X10*3/uL RBC (4.20-5.50) X10*6/uL Hgb (12.0-16.0) g/dl Hct (37.0-47.0) % MCV (80.0-98.0) fL MCH (27.0-33.0) pg MCHC (31.0-35.0) g/dl RDW (11.0-16.0) % Plt Count (160-400) X10*3/uL MPV (9.4-12.3) fL Immature Gran % (Auto) (0.0-0.4) % Neut % (Auto) (45-73) % Lymph % (Auto) (20-40) % [place] % (Auto) (2-11) % Eos % (Auto) (0-4) % Baso % (Auto) (0-2) % Lymph # (Auto) (1.2-4.9) X10*3/uL [place] # (Auto) (0.1-1.2) X10*3/uL Eos # (Auto) (0.0-0.4) X10*3/uL Baso # (Auto) (0.0-0.2) X10*3/uL Abs Immat Gran (auto) (0.00-0.03) X10*3/uL Absolute Neuts (auto) (2.0-8.3) x10*3/uL Absolute Nucleated RBC (0.0-0.012) X10*3/uL Nucleated RBC % (auto) (0.0-0.2) /100WBC Sodium (135-145) mmol/L Potassium (3.3-5.1) mmol/L Chloride (96-108) mmol/L Carbon Dioxide (22-29) mmol/L Anion Gap (12-20) BUN (9-16) mg/dL Creatinine (0.5-1.4) mg/dL Estim Creat Clear Calc Estimated GFR Random Glucose (60-115) mg/dL Lactic Acid 0.5 (0.5-2.0) mmol/L Calcium (8.4-10.2) mg/dL Magnesium (1.6-2.6) mg/dL Iron (30-160) mcg/dL TIBC (228-428) mcg/dL % Saturation (15-50) % Unsat Iron Binding ug/dL Total Bilirubin (0.0-1.0) mg/dL Direct Bilirubin (0.0-0.5) mg/dL AST (5-31) U/L ALT (0-31) U/L Alkaline Phosphatase (39-117) U/L Lactate Dehydrogenase (122-220) U/L B-Natriuretic Peptide 149 H (<100) pg/mL Total Protein (6.5-8.0) g/dL Albumin (3.5-5.0) g/dL Procalcitonin ng/mL Stool Occult Blood NEGATIVE (NEGATIVE) COVID-19 (RICKY) (Negative) COVID-19 Clin Com 07/21/22 Range/Units 15:59 WBC (4.8-10.8) X10*3/uL RBC (4.20-5.50) X10*6/uL Hgb (12.0-16.0) g/dl Hct (37.0-47.0) % MCV (80.0-98.0) fL MCH (27.0-33.0) pg MCHC (31.0-35.0) g/dl RDW (11.0-16.0) % Plt Count (160-400) X10*3/uL MPV (9.4-12.3) fL Immature Gran % (Auto) (0.0-0.4) % Neut % (Auto) (45-73) % Lymph % (Auto) (20-40) % [place] % (Auto) (2-11) % Eos % (Auto) (0-4) % Baso % (Auto) (0-2) % Lymph # (Auto) (1.2-4.9) X10*3/uL [place] # (Auto) (0.1-1.2) X10*3/uL Eos # (Auto) (0.0-0.4) X10*3/uL Baso # (Auto) (0.0-0.2) X10*3/uL Abs Immat Gran (auto) (0.00-0.03) X10*3/uL Absolute Neuts (auto) (2.0-8.3) x10*3/uL Absolute Nucleated RBC (0.0-0.012) X10*3/uL Nucleated RBC % (auto) (0.0-0.2) /100WBC Sodium (135-145) mmol/L Potassium (3.3-5.1) mmol/L Chloride (96-108) mmol/L Carbon Dioxide (22-29) mmol/L Anion Gap (12-20) BUN (9-16) mg/dL Creatinine (0.5-1.4) mg/dL Estim Creat Clear Calc Estimated GFR Random Glucose (60-115) mg/dL Lactic Acid (0.5-2.0) mmol/L Calcium (8.4-10.2) mg/dL Magnesium (1.6-2.6) mg/dL Iron (30-160) mcg/dL TIBC (228-428) mcg/dL % Saturation (15-50) % Unsat Iron Binding ug/dL Total Bilirubin (0.0-1.0) mg/dL Direct Bilirubin (0.0-0.5) mg/dL AST (5-31) U/L ALT (0-31) U/L Alkaline Phosphatase (39-117) U/L Lactate Dehydrogenase (122-220) U/L B-Natriuretic Peptide (<100) pg/mL Total Protein (6.5-8.0) g/dL Albumin (3.5-5.0) g/dL Procalcitonin 0.16 ng/mL Stool Occult Blood (NEGATIVE) COVID-19 ([facility]ICKY) (Negative) COVID-19 Clin Com Independent Interpretation I performed an independent interpretation of an: EKG and Plain X-Ray Interpretation: Chest x-ray reviewed, moderate left-sided pleural effusion with retrocardiac opacity. EKG was sinus tachycardia, ventricular 109 beats per minute, normal AK interval, normal QTC, no ST segment elevations or depressions. No change from 1 month ago. Radiology Impression Discussion of test interpretation with radiology: I have reviewed the radiologist's reading. Radiologist Impression: Chest x-ray reading ?probable small left pleural effusion with supra adjacent atelectasis/infiltrate. ? Independent Historian Clinical information obtained from an independent historian. History obtained from or confirmed by: EMS External Record Review External record reviewed: Inpatient record, Office record, Outpatient record, Prior outpatient labs and Prior outpatient radiology Prescription Management I considered prescription management with: Antibiotic Chronic Conditions Patient?s care impacted by: Diabetes Critical Care Time Critical Care Time Critical Care Time: Yes Total Critical Care Time: 47 Attestation: I have personally provided critical care time exclusive of time spent on separately billable procedures. Time includes review of lab data, radiology results, discussion with consultants, and monitoring for potential decompensation. Intervention performed as documented. Discharge Plan Discharge Clinical Impression: Anemia, Hypoxia, Pleural effusion, left, HCAP (healthcare-associated pneumonia) Patient Disposition: Admitted As Inpatient
--- NOTE | 2022-07-21 12:45 | ECG_ITS ---
Test Reason : TACHYCARDIA Blood Pressure : / mmHG Vent. Rate : 109 BPM Atrial Rate : 109 BPM P-R Int : 152 ms QRS Dur : 062 ms QT Int : 334 ms P-R-T Axes : 071 024 005 degrees QTc Int : 449 ms Sinus tachycardia Otherwise normal ECG When compared with ECG of 07-JUN-2022 01:01, No significant change was found Referred By: Cande Miller Electronically Signed By:Elpidio Cortez
[2022-07-21 13:45] LABS: MANUAL DIFF FLAG NO
[2022-07-21 13:47] LABS: Basophils Percent Auto 0.3 % (0-2); Eosinophils Absolute Auto 0.1 X10*3/uL (0.0-0.4); Eosinophils Percent Auto 1.3 % (0-4); Hematocrit 24.7 % (37.0-47.0); Hemoglobin 7.8 g/dl (12.0-16.0); Imm Gran Abs Auto 0.04 X10*3/uL (0.00-0.03); Imm Gran Pct Auto 0.5 % (0.0-0.4); Lymphocytes Absolute Auto 2.1 X10*3/uL (1.2-4.9); Lymphocytes Percent Auto 28.4 % (20-40); Mean Corpuscular HGB Conc 31.6 g/dl (31.0-35.0); Mean Corpuscular Hemoglobin 28.8 pg (27.0-33.0); Mean Corpuscular Volume 91.1 fL (80.0-98.0); Mean Platelet Volume 8.5 fL (9.4-12.3); Monocytes Absolute Auto 0.5 X10*3/uL (0.1-1.2); Monocytes Percent Auto 6.9 % (2-11); Neutrophils Absolute Auto 4.7 x10*3/uL (2.0-8.3); Neutrophils Percent Auto 62.6 % (45-73); Platelet Count 207 X10*3/uL (160-400); Red Blood Count 2.71 X10*6/uL (4.20-5.50); Red Cell Distribution Width 15.2 % (11.0-16.0); White Blood Count 7.5 X10*3/uL (4.8-10.8)
[2022-07-21 14:00] LABS: COVID-19 Test Negative (Negative); IDNOW Serial# 6674DD1D
[2022-07-21 14:02] LABS: Alanine Aminotransferase 88 U/L (0-31); Alkaline Phosphatase 159 U/L (39-117); Anion Gap 9 (12-20); Aspartate Amino Transferase 107 U/L (5-31); Bilirubin Direct < 0.2 mg/dL (0.0-0.5); Bilirubin Total 0.4 mg/dL (0.0-1.0); Blood Urea Nitrogen 14 mg/dL (9-16); Calcium 8.5 mg/dL (8.4-10.2); Carbon Dioxide 29 mmol/L (22-29); Chloride 108 mmol/L (96-108); Creatinine Clr Calc Pharmacy 88.6; Estimated Glomerular Filt Rate > 60; Glucose Random 105 mg/dL (60-115); Magnesium 2.3 mg/dL (1.6-2.6); Potassium 4.3 mmol/L (3.3-5.1); Sodium 142 mmol/L (135-145); Total Protein 6.1 g/dL (6.5-8.0)
[2022-07-21 14:12] LABS: B Type Natriuretic Peptide 149 pg/mL (<100)
[2022-07-21 14:26] LABS: OBS Int Ctl Valid YES; OBS1 NEGATIVE (NEGATIVE)
[2022-07-21 15:05] LABS: Iron 26 mcg/dL (30-160); Lactate Dehydrogenase 343 U/L (122-220); Percent Iron Saturation 11 % (15-50); Total Iron Binding Capacity 247 mcg/dL (228-428); Unsaturated Iron Binding 221 ug/dL
[2022-07-21 16:30] LABS: Lactic Acid 0.5 mmol/L (0.5-2.0)
[2022-07-21] MEDS: cefEPime HCl 2 GM in 0.9 % Sodium Chloride 50 ML IV (16:32)
[2022-07-21 16:54] LABS: Procalcitonin 0.16 ng/mL
--- NOTE | 2022-07-21 17:22 | P.HPHOSP_ITS ---
History of Present Illness Date of Service: 07/21/22 Attending physician on admission: Azeem Kate Chief Complaint: malaise, blurred vision 52-year-old female with history of depression and [id number] type 2 diabetes and recent diagnosis of UTI treated with cefuroxime presents to the ED via EMS for evaluation of blurred vision. Pt is not the best historian and history is vague and disjointed. She also reports generally feeling unwell and weakness. She states x 1 week BLE edema and legs feel like cement. This morning she felt so her daughter called EMS. Tells me she has intermittent bilateral blurred vision, like snow , and that she passed out for several hours while her daughter called EMS. Has been unable to read her glucometer. This morning there was some general soreness and discharge of the right eye. She states the vision was better and could see again during ED provider exam,but blurred again on my exam. EMS noted glucose 114. No fevers, chills, headaches, sore throat, congestion, abdominal pain, nausea, vomiting, shortness of breath, cough, chest pain. On arrival, patient tachycardic to 113 with oxygen levels desaturating to the 70s placed on 2 L supplemental O2 with improvement to 95%. There is no leukocytosis. H/H 7.8/24.7% (9.7/29.5% on 07/16). MCV normal. Denies any bleeding episodes. Renal function normal, electrolyte levels normal. Iron 26, saturation 11%, TIBC 247. AST 107, ALT 88, alkaline phosphatase 159, LDH 343, BNP 149, procalcitonin 0.16. Stool occult blood negative. Negative for COVID-19. CXR showing probable small left pleural effusion with super adjacent atelectasis/infiltrate. Patient recently discharged on 06/11 for UTI and was not compliant with her medications. As result, ED prescribed cefepime t o cover for Hcap. Reportedly lives with her 6 children. Call placed to son who was not able to give addl history, and requested he reach out to daughter, Monika, who was present this morning but did not know her phone number and the patient was unable to provider me with this. Review of Systems Review of Systems: Yes all other systems are reviewed and are negative FORMERLY [facility], [facility] Medical History (Updated 07/21/22 @ 18:49 by MICKEY Carlton) Depression HLD (hyperlipidemia) Iron deficiency anemia Type 2 diabetes mellitus Family History Other Hypertension Social History Household Members: Children Housing: Apartment Do you presently have visiting nurse or other home services: No Alcohol intake: unknown Patient Tobacco Use Status: Never used Tobacco Advance Directives: Yes Advance Directives on File: Yes Advance Directives Date on File: 06/19/21 service: No Current occupational status: unemployed Meds Allergies Allergy/AdvReac Type Severity Reaction Status Date / Time shrimp Allergy Swelling Verified 06/07/22 08:58 Active Medications: Current Medications Pharmacy Consult (Consult Rx Perform Med Rec) 1 each MISCELLANE ONCE PRN PRN Reason: Consult order Home Medications Medication Instructions Recorded Confirmed Last Taken Type acetaminophen 325 mg tablet 325 mg PO DAILY PRN Pain 07/21/22 07/21/22 Unknown History aspirin 81 mg tablet,delayed 1 tab PO DAILY 07/21/22 07/21/22 07/21/22 History release atorvastatin 80 mg tablet 1 tab PO BEDTIME 07/21/22 07/21/22 Unknown History insulin glargine 100 unit/mL (3 30 unit subcut BEDTIME 07/21/22 07/21/22 Unknown History mL) subcutaneous pen (Lantus Solostar U-100 Insulin) insulin lispro 100 unit/mL See Protocol subcut TIDAC 07/21/22 07/21/22 Unknown History subcutaneous pen metformin 1,000 mg tablet 1 tab PO BID 07/21/22 07/21/22 07/21/22 History pioglitazone 30 mg tablet 1 tab PO DAILY 07/21/22 07/21/22 07/21/22 History Physical Exam Vital Signs and Narrative: Vital Signs: Last Vital Signs Temp 98.4 F 07/21/22 12:42 Pulse 108 H 07/21/22 15:14 Resp 16 07/21/22 15:14 BP 180/84 H 07/21/22 15:14 Pulse Ox 88 L 07/21/22 15:45 O2 Del Method 07/21/22 15:45 O2 Flow Rate 2 07/21/22 15:14 BMI result Body Mass Index 33.7 Constitutional - Awake and Alert, No apparent distress Eyes - PERRLA, EOMI Cardiovascular - S1S2, RRR, 3+ edema BLE Respiratory - Normal lung expansion, Normal respiratory effort, No respiratory distress, CTA bilaterally Gastrointestinal - NT / ND; +BS; No rebound or guarding Extremities - no calf tenderness bilaterally, no swelling Skin - Warm/Dry Neurological - Alert & oriented x4, CN II-XII in tact, 5/5 strength BUE, 4/5 BLE Psychological - Appropriate affect, somewhat tangential Results Labs 07/21/22 13:39 07/21/22 13:39 Labs: Laboratory Results - last 24 hr 07/21/22 07/21/22 07/21/22 13:39 13:39 13:39 MCV 91.1 MCH 28.8 MCHC 31.6 RDW 15.2 Plt Count 207 MPV 8.5 L Immature Gran % (Auto) 0.5 H Neut % (Auto) 62.6 Lymph % (Auto) 28.4 [place] % (Auto) 6.9 Eos % (Auto) 1.3 Baso % (Auto) 0.3 Lymph # (Auto) 2.1 [place] # (Auto) 0.5 Eos # (Auto) 0.1 Baso # (Auto) 0.0 Abs Immat Gran (auto) 0.04 H Absolute Neuts (auto) 4.7 Absolute Nucleated RBC 0.000 Nucleated RBC % (auto) 0.0 Anion Gap 9 L Estim Creat Clear Calc 88.6 Estimated GFR > 60 Random Glucose 105 Lactic Acid Calcium 8.5 Magnesium 2.3 Iron 26 L TIBC 247 % Saturation 11 L Unsat Iron Binding 221 Total Bilirubin 0.4 Direct Bilirubin < 0.2 AST 107 H ALT 88 H Alkaline Phosphatase 159 H Lactate Dehydrogenase 343 H B-Natriuretic Peptide Total Protein 6.1 L Albumin 3.0 L Procalcitonin Stool Occult Blood COVID-19 (RICKY) Negative COVID-19 Clin Com See Note 07/21/22 07/21/22 07/21/22 13:40 14:22 15:59 MCV MCH MCHC RDW Plt Count MPV Immature Gran % (Auto) Neut % (Auto) Lymph % (Auto) [place] % (Auto) Eos % (Auto) Baso % (Auto) Lymph # (Auto) [place] # (Auto) Eos # (Auto) Baso # (Auto) Abs Immat Gran (auto) Absolute Neuts (auto) Absolute Nucleated RBC Nucleated RBC % (auto) Anion Gap Estim Creat Clear Calc Estimated GFR Random Glucose Lactic Acid 0.5 Calcium Magnesium Iron TIBC % Saturation Unsat Iron Binding Total Bilirubin Direct Bilirubin AST ALT Alkaline Phosphatase Lactate Dehydrogenase B-Natriuretic Peptide 149 H Total Protein Albumin Procalcitonin Stool Occult Blood NEGATIVE COVID-19 (RICKY) COVID-19 Clin Com 07/21/22 15:59 MCV MCH MCHC RDW Plt Count MPV Immature Gran % (Auto) Neut % (Auto) Lymph % (Auto) [place] % (Auto) Eos % (Auto) Baso % (Auto) Lymph # (Auto) [place] # (Auto) Eos # (Auto) Baso # (Auto) Abs Immat Gran (auto) Absolute Neuts (auto) Absolute Nucleated RBC Nucleated RBC % (auto) Anion Gap Estim Creat Clear Calc Estimated GFR Random Glucose Lactic Acid Calcium Magnesium Iron TIBC % Saturation Unsat Iron Binding Total Bilirubin Direct Bilirubin AST ALT Alkaline Phosphatase Lactate Dehydrogenase B-Natriuretic Peptide Total Protein Albumin Procalcitonin 0.16 Stool Occult Blood COVID-19 (RICKY) COVID-19 Clin Com Imaging Radiologist's Impressions: Impressions Chest X-Ray 07/21/22 14:54 IMPRESSION: Probable small left pleural effusion with superjacent atelectasis/infiltrate. Assessment and Plan (1) HCAP (healthcare-associated pneumonia): Status: Acute Plan 52-year-old female with history of depression and insulin-dependent type 2 diabetes and recent diagnosis of UTI treated with cefuroxime admitted for acute hypoxemic respiratory failure and possible pneumonia. #Acute hypoxemic respiratory failure -likely secondary to left lower lobe pneumonia -CXR showing [id number] left pleural effusion with supradjacent atelectasis/infiltrate -BNP 149 with bilateral lower extremity edema -chest CT ordered to better characterize effusion -continue supplemental O2 to maintain oximetry above 95% # probable left lower lobe pneumonia -mild tachycardia. No leukocytosis. No sepsis -continue cefepime given recent hospitalization with IV antibiotics last month -continue supplemental oxygen as above -symptomatic management #Blurred vision- likely related to conjunctivitis, but only noted in right eye -pt history vague -head ct ordered as she also reported possible syncope -erythromycin q.i.d. #? syncope -Pt states i felt I passed out and it was like god was lifting me -Head CT ordered -Pt otherwise oriented x 3, no acute encephalopthy. ?psych eval. -Admit to telemetry # iron deficiency anemia -denies bleeding episodes, stool occult blood negative -H/H decreased from baseline at 7.8/24.7 (was 9.7/29.5% on 07/16/22), above transfusion threshold -iron 26, TIBC 247, 11% saturation -initiate ferrous sulfate. Administer with vitamin-C -follow CBC # insulin-dependent type 2 diabetes without hyperglycemia -Last Hgb A1c >14.0 -dose adjusted basal insulin -Humalog on sliding scale -POC glucose -hold p.o. anti hyperglycemics -diabetic diet DVT prophylaxis-Lovenox Full code Attempted to reach out to patient's daughter, Monika, who was present this morning and called EMS to further elaborate on history and patient's baseline. Did call her son, Gene who could not elaborate on history and stated his sister did not have a phone number but said he would reach out to her on Facebook and request she call us Patient requires inpatient stay of at least 2 midnights for management of acute hypoxemic respiratory failure with pneumonia Time Spent With Patient Time: Total time managing care of this patient today ____ minutes. Quality Stroke Does the patient have a stroke diagnosis?: No VTE Prior VTE?: No VTE Risk Level:: Medical - moderate - high VTE Device Contraindication: Treatment Not Indicated VTE Drug Contraindication: N/A - Med Ordered
--- NOTE | 2022-07-21 18:21 | PHA.MEDREC ---
Pharmacy Consult ? Medication Reconciliation Pharmacy has completed the medication reconciliation. I spoke with the patients visiting nurse (Quan) and he gave me her list. I tried to speak with the patient through an certified court/medical interpreter however she states that she cannot read and does not know what she takes. Her claim history shows a 7 DS of cephalexin picked up on 07/16 (should be 2 days left) however her nurse told me she was finished with them. They have on their records that she should be taking lisinopril 40 mg daily and HCTZ 25 mg daily but they have not been able to find these medications at her house and they have not been picked up recently from her claim history (from November and December). The nurse held her insulin this morning.
[2022-07-21 20:20] LABS: Appearance Urine Cloudy; Color Urine Yellow; Glucose Urine UA Negative (Negative); Leukocyte Esterase Urine Moderate (2+) (Negative); Nitrite Urine Negative (Negative); UMIC TRIGGER UACC YES; Urine Blood Trace (Negative); Urine Ketones Negative (Negative); Urine Protein 30 (1+) mg/dL (Neg-Trace)
[2022-07-21] MEDS: Enoxaparin Sodium 40 MG/0.4 ML SYRINGE SUBCUT (20:29)
[2022-07-21] MEDS: Ferrous Sulfate 324 MG TABLET.DR PO (20:30)
[2022-07-21 20:48] LABS: Glucose, Whole Blood 66 mg/dL (60-115)
--- NOTE | 2022-07-21 21:10 | PC.NURSE ---
Pt aox3 reting at the bedside in no apparent distress. POC of 66 noted. Pt provided with orange juice and tuna sandwich. POC recheck of 121. MD aware.
[2022-07-21 21:20] LABS: Bacteria Urine 1+ (None Seen); Hyaline Casts Urine 0-2 /LPF (0-2); UACC Culture Trigger YES; WBC Urine 21-50 /HPF (0-5)
[2022-07-21] MEDS: Atorvastatin Calcium 80 MG TABLET PO (21:22)
[2022-07-21] MEDS: Insulin Glargine,Hum.rec.anlog 100 UNIT/ML 10 ML VIAL 22 UNIT SUBCUT (21:22)
[2022-07-21] MEDS: Erythromycin Base 0.5% Oph Oin 1 GM TUBE 1 CM EYE-RIGHT (21:22)
[2022-07-21 21:27] LABS: Glucose, Whole Blood 121 mg/dL (60-115)
--- NOTE | 2022-07-21 22:39 | PC.NURSE ---
Bed side report given to nurse Mendes. Pt transferred to room 353 and aware of plan of care.
--- NOTE | 2022-07-22 | ECG_ITS ---
Test Reason : cp Blood Pressure : / mmHG Vent. Rate : 108 BPM Atrial Rate : 000 BPM P-R Int : 000 ms QRS Dur : 064 ms QT Int : 350 ms P-R-T Axes : 000 021 019 degrees QTc Int : 469 ms Poor data quality Normal sinus rhythm Abnormal ECG When compared with ECG of 21-JUL-2022 13:28, Poor data quality in current ECG precludes serial comparison Referred By: Liz Hooker Electronically Signed By:JAYA STOLL MD
[2022-07-22] MEDS: 0.9 % Sodium Chloride Flush 3 ML SYRINGE IVFLUSH ×4 (00:48→21:35)
[2022-07-22] MEDS: cefEPime HCl 2 GM in 0.9 % Sodium Chloride 50 ML IV ×3 (00:49→17:00)
[2022-07-22 02:22] VITALS: BMI 30.1
[2022-07-22 03:14] VITALS: BP 162/71; PULSE 100; RESP 18; TEMP 36.9; O2SAT 95
[2022-07-22 06:29] LABS: MANUAL DIFF FLAG NO
[2022-07-22 06:32] LABS: Basophils Percent Auto 0.3 % (0-2); Eosinophils Absolute Auto 0.1 X10*3/uL (0.0-0.4); Eosinophils Percent Auto 1.3 % (0-4); Hematocrit 24.4 % (37.0-47.0); Hemoglobin 7.6 g/dl (12.0-16.0); Imm Gran Abs Auto 0.03 X10*3/uL (0.00-0.03); Imm Gran Pct Auto 0.4 % (0.0-0.4); Lymphocytes Percent Auto 28.7 % (20-40); Mean Corpuscular HGB Conc 31.1 g/dl (31.0-35.0); Mean Corpuscular Hemoglobin 28.6 pg (27.0-33.0); Mean Corpuscular Volume 91.7 fL (80.0-98.0); Mean Platelet Volume 9.2 fL (9.4-12.3); Monocytes Absolute Auto 0.6 X10*3/uL (0.1-1.2); Monocytes Percent Auto 8.9 % (2-11); Neutrophils Absolute Auto 4.3 x10*3/uL (2.0-8.3); Neutrophils Percent Auto 60.4 % (45-73); Platelet Count 226 X10*3/uL (160-400); Red Blood Count 2.66 X10*6/uL (4.20-5.50); Red Cell Distribution Width 15.5 % (11.0-16.0); White Blood Count 7.1 X10*3/uL (4.8-10.8)
[2022-07-22 07:11] VITALS: BP 145/66; PULSE 93; RESP 18; TEMP 36.4; O2SAT 95
[2022-07-22 07:42] LABS: Anion Gap 13 (12-20); Blood Urea Nitrogen 12 mg/dL (9-16); Calcium 8.4 mg/dL (8.4-10.2); Carbon Dioxide 26 mmol/L (22-29); Chloride 106 mmol/L (96-108); Creatinine Clr Calc Pharmacy 84.7; Estimated Glomerular Filt Rate > 60; Glucose Random 43 mg/dL (60-115); Sodium 141 mmol/L (135-145)
[2022-07-22 07:51] LABS: Glucose, Whole Blood 52 mg/dL (60-115)
[2022-07-22 07:55] LABS: Glucose, Whole Blood 78 mg/dL (60-115)
[2022-07-22] MEDS: Aspirin Enteric Coated 81 MG TABLET.DR PO (08:34)
[2022-07-22] MEDS: Erythromycin Base 0.5% Oph Oin 1 GM TUBE 1 CM EYE-RIGHT ×4 (08:34→21:35)
[2022-07-22] MEDS: Ascorbic Acid 250 MG TABLET PO (08:34)
[2022-07-22] MEDS: Ferrous Sulfate 324 MG TABLET.DR PO (08:34)
[2022-07-22] MEDS: Azithromycin 500 MG in 0.9 % Sodium Chloride 250 ML 125 MG IV (09:11)
--- NOTE | 2022-07-22 11:24 | P.PNIM_ITS ---
Subjective Subjective Date of Service: 07/22/22 Interval History: No acute issues overnight remains afebrile no sob or chest pain Review of Systems Denies chest pain Denies shortness of breath Denies nausea vomiting diarrhea Denies fever chills Physical Exam Vital Signs: Vital Signs: Last Vital Signs Temp 97.5 F 07/22/22 07:11 Pulse 93 07/22/22 07:11 Resp 18 07/22/22 07:11 BP 145/66 H 07/22/22 07:11 Pulse Ox 95 07/22/22 07:11 O2 Del Method 07/22/22 07:11 O2 Flow Rate 2 07/22/22 03:14 BMI result Body Mass Index 30.1 Appearing in no acute distress lung sounds are clear to auscultation heart regular rate rhythm, clear S1, S2 positive bowel sounds, abdomen is soft, nontender neuro patient is alert x3, no focal deficits Objective Data Active Medications Acetaminophen (Acetaminophen 325 Mg Tablet) 650 mg PO Q6H PRN PRN Reason: Pain, Mild (Pain Scale 1-3) Ascorbic Acid (Ascorbic Acid 250 Mg Tablet) 250 mg PO DAILY [facility] Last Admin: 07/22/22 08:34 Dose: 250 mg Documented By: NICHOLAS Aspirin (Aspirin Enteric Coated 81 Mg Tablet.) 81 mg PO DAILY [facility] Last Admin: 07/22/22 08:34 Dose: 81 mg Documented By: NICHOLAS Atorvastatin Calcium (Atorvastatin Calcium 80 Mg Tablet) 80 mg PO BEDTIME [facility] Last Admin: 07/21/22 21:22 Dose: 80 mg Documented By: QUEENIE Enoxaparin Sodium (Enoxaparin Sodium 40 Mg/0.4 Ml Syringe) 40 mg SUBCUT Q24H [facility] Last Admin: 07/21/22 20:29 Dose: 40 mg Documented By: QUEENIE Erythromycin (Erythromycin Base 0.5% Oph Oin 1 Gm Tube) 1 cm EYE-RIGHT QID [facility] Last Admin: 07/22/22 08:34 Dose: 1 cm Documented By: NICHOLAS Ferrous Sulfate (Ferrous Sulfate 324 Mg Tablet.) 324 mg PO DAILY [facility] Last Admin: 07/22/22 08:34 Dose: 324 mg Documented By: NICHOLAS Glucose (Glucose Gel 15 Gm Gel..Gram.) 15 gm PO Q15M PRN; Protocol PRN Reason: per Hypoglycemia Standing Ord. Guaifenesin (Guaifenesin 200 Mg/10 Ml 10 Ml Liquid) 10 ml PO Q6H PRN PRN Reason: Cough Dextrose (D10) 250 mls @ 750 mls/hr IV Q15M PRN; Protocol PRN Reason: per Hypoglycemia Standing Ord. Cefepime HCl 2 gm/ Sodium (Chloride) 50 mls @ 100 mls/hr IV Q8H [facility] Last Infusion: 07/22/22 09:10 Dose: 0 mls/hr Documented By: NICHOLAS Azithromycin 500 mg/ Sodium (Chloride) 250 mls @ 125 mls/hr IV Q24H [facility] Last Infusion: 07/22/22 11:22 Dose: 0 mls/hr Documented By: NICHOLAS Insulin Glargine (Insulin Glargine,Hum.Rec.Anlog 100 Unit/Ml 10 Ml Vial) 22 unit SUBCUT BEDTIME [facility] Last Admin: 07/21/22 21:22 Dose: 22 unit Documented By: QUEENIE Insulin Human Lispro (Insulin Lispro 100 Unit/Ml 3 Ml Vial) 0 unit SUBCUT QIDACHS [facility]; Protocol Last Admin: 07/22/22 08:08 Dose: Not Given Documented By: NICHOLAS Non-Admin Reason: No Insulin Coverage Ondansetron HCl (Ondansetron Hcl 4 Mg/2 Ml Vial) 4 mg IVPUSH Q8H PRN PRN Reason: Nausea and Vomiting Pharmacy Consult (Consult Rx Perform Med Rec) 1 each MISCELLANE ONCE PRN PRN Reason: Consult order Senna (Sennosides 8.6 Mg Tablet) 17.2 mg PO BEDTIME PRN PRN Reason: Constipation Sodium Chloride (0.9 % Sodium Chloride Flush 3 Ml Syringe) 3 ml IVFLUSH QSHIFT [facility] Last Admin: 07/22/22 08:34 Dose: 3 ml Documented By: NICHOLAS Labs 07/22/22 05:35 07/22/22 05:35 Labs: Laboratory Results - last 24 hr 07/21/22 07/21/22 07/21/22 13:39 13:39 13:39 MCV 91.1 MCH 28.8 MCHC 31.6 RDW 15.2 Plt Count 207 MPV 8.5 L Immature Gran % (Auto) 0.5 H Neut % (Auto) 62.6 Lymph % (Auto) 28.4 [place] % (Auto) 6.9 Eos % (Auto) 1.3 Baso % (Auto) 0.3 Lymph # (Auto) 2.1 [place] # (Auto) 0.5 Eos # (Auto) 0.1 Baso # (Auto) 0.0 Abs Immat Gran (auto) 0.04 H Absolute Neuts (auto) 4.7 Absolute Nucleated RBC 0.000 Nucleated RBC % (auto) 0.0 Anion Gap 9 L Estim Creat Clear Calc 88.6 Estimated GFR > 60 POC Glucose Random Glucose 105 Lactic Acid Calcium 8.5 Magnesium 2.3 Iron 26 L TIBC 247 % Saturation 11 L Unsat Iron Binding 221 Total Bilirubin 0.4 Direct Bilirubin < 0.2 AST 107 H ALT 88 H Alkaline Phosphatase 159 H Lactate Dehydrogenase 343 H B-Natriuretic Peptide Total Protein 6.1 L Albumin 3.0 L Procalcitonin Urine Color Urine Appearance Urine pH Ur Specific [place] Urine Protein Urine Glucose (UA) Urine Ketones Urine Blood Urine Nitrite Ur Leukocyte Esterase Urine RBC Urine WBC Ur Squamous Epith Cells Urine Bacteria Hyaline Casts Stool Occult Blood COVID-19 ([facility]ICK[facility]) Negative COVID-19 Clin Com See Note 07/21/22 07/21/22 07/21/22 13:40 14:22 15:59 MCV MCH MCHC RDW Plt Count MPV Immature Gran % (Auto) Neut % (Auto) Lymph % (Auto) [place] % (Auto) Eos % (Auto) Baso % (Auto) Lymph # (Auto) [place] # (Auto) Eos # (Auto) Baso # (Auto) Abs Immat Gran (auto) Absolute Neuts (auto) Absolute Nucleated RBC Nucleated RBC % (auto) Anion Gap Estim Creat Clear Calc Estimated GFR POC Glucose Random Glucose Lactic Acid 0.5 Calcium Magnesium Iron TIBC % Saturation Unsat Iron Binding Total Bilirubin Direct Bilirubin AST ALT Alkaline Phosphatase Lactate Dehydrogenase B-Natriuretic Peptide 149 H Total Protein Albumin Procalcitonin Urine Color Urine Appearance Urine pH Ur Specific [place] Urine Protein Urine Glucose (UA) Urine Ketones Urine Blood Urine Nitrite Ur Leukocyte Esterase Urine RBC Urine WBC Ur Squamous Epith Cells Urine Bacteria Hyaline Casts Stool Occult Blood NEGATIVE COVID-19 ([facility]ICK[facility]) COVID-19 Clin Com 07/21/22 07/21/22 07/21/22 15:59 20:09 20:45 MCV MCH MCHC RDW Plt Count MPV Immature Gran % (Auto) Neut % (Auto) Lymph % (Auto) [place] % (Auto) Eos % (Auto) Baso % (Auto) Lymph # (Auto) [place] # (Auto) Eos # (Auto) Baso # (Auto) Abs Immat Gran (auto) Absolute Neuts (auto) Absolute Nucleated RBC Nucleated RBC % (auto) Anion Gap Estim Creat Clear Calc Estimated GFR POC Glucose 66 Random Glucose Lactic Acid Calcium Magnesium Iron TIBC % Saturation Unsat Iron Binding Total Bilirubin Direct Bilirubin AST ALT Alkaline Phosphatase Lactate Dehydrogenase B-Natriuretic Peptide Total Protein Albumin Procalcitonin 0.16 Urine Color Yellow Urine Appearance Cloudy Urine pH 6.0 Ur Specific [place] 1.010 Urine Protein 30 (1+) H Urine Glucose (UA) Negative Urine Ketones Negative Urine Blood Trace H Urine Nitrite Negative Ur Leukocyte Esterase Moderate (2+) H Urine RBC 6-10 H Urine WBC 21-50 H Ur Squamous Epith Cells 3-5 Urine Bacteria 1+ Hyaline Casts 0-2 Stool Occult Blood COVID-19 ([facility]ICK[facility]) COVID-19 Clin Com 07/21/22 07/22/22 07/22/22 21:20 05:35 05:35 MCV 91.7 MCH 28.6 MCHC 31.1 RDW 15.5 Plt Count 226 MPV 9.2 L Immature Gran % (Auto) 0.4 Neut % (Auto) 60.4 Lymph % (Auto) 28.7 [place] % (Auto) 8.9 Eos % (Auto) 1.3 Baso % (Auto) 0.3 Lymph # (Auto) 2.0 [place] # (Auto) 0.6 Eos # (Auto) 0.1 Baso # (Auto) 0.0 Abs Immat Gran (auto) 0.03 Absolute Neuts (auto) 4.3 Absolute Nucleated RBC 0.000 Nucleated RBC % (auto) 0.0 Anion Gap 13 Estim Creat Clear Calc 84.7 Estimated GFR > 60 POC Glucose 121 H Random Glucose 43 L* Lactic Acid Calcium 8.4 Magnesium Iron TIBC % Saturation Unsat Iron Binding Total Bilirubin Direct Bilirubin AST ALT Alkaline Phosphatase Lactate Dehydrogenase B-Natriuretic Peptide Total Protein Albumin Procalcitonin Urine Color Urine Appearance Urine pH Ur Specific [place] Urine Protein Urine Glucose (UA) Urine Ketones Urine Blood Urine Nitrite Ur Leukocyte Esterase Urine RBC Urine WBC Ur Squamous Epith Cells Urine Bacteria Hyaline Casts Stool Occult Blood COVID-19 ([facility]) COVID-19 [facility] Com 07/22/22 07/22/22 07:08 07:51 MCV MCH MCHC RDW Plt Count MPV Immature Gran % (Auto) Neut % (Auto) Lymph % (Auto) [place] % (Auto) Eos % (Auto) Baso % (Auto) Lymph # (Auto) [place] # (Auto) Eos # (Auto) Baso # (Auto) Abs Immat Gran (auto) Absolute Neuts (auto) Absolute Nucleated RBC Nucleated RBC % (auto) Anion Gap Estim Creat Clear Calc Estimated GFR POC Glucose 52 L* 78 Random Glucose Lactic Acid Calcium Magnesium Iron TIBC % Saturation Unsat Iron Binding Total Bilirubin Direct Bilirubin AST ALT Alkaline Phosphatase Lactate Dehydrogenase B-Natriuretic Peptide Total Protein Albumin Procalcitonin Urine Color Urine Appearance Urine pH Ur Specific [place] Urine Protein Urine Glucose (UA) Urine Ketones Urine Blood Urine Nitrite Ur Leukocyte Esterase Urine RBC Urine WBC Ur Squamous Epith Cells Urine Bacteria Hyaline Casts Stool Occult Blood COVID-19 ([facility]ICKY) COVID-19 Clin Com Microbiology Microbiology Results: Microbiology 07/21/22 Unknown Urine Culture - Preliminary Urine clean catch - Urine tyler top No growth to date. Assessment and Plan (1) HCAP (healthcare-associated pneumonia): Status: Acute Plan 52-year-old female with history of depression and insulin-dependent type 2 diabetes and recent diagnosis of UTI treated with cefuroxime admitted for acute hypoxemic respiratory failure and possible pneumonia. Acute hypoxemic respiratory failure secondary to multifocal pneumonia no sepsis chest CT showing moderate size left pleural effusion with dense area of consolidation and left lower lobe suspicious for multifocal pneumonia continue supplemental O2 to maintain oximetry above 95% cefepime and azithromycin Blurred vision- likely related to conjunctivitis, but only noted in right eye pt history vague head ct showing asymmetric loss of parenchymal volume within the left anterior temporal lobe with enlargement of left temporal horn Consult neurology erythromycin q.i.d. ? syncope Pt states i felt I passed out and it was like god was lifting me Head CT ordered Pt otherwise oriented x 3, no acute encephalopthy. ?psych eval. iron deficiency anemia denies bleeding episodes, stool occult blood negative iron 26, TIBC 247, 11% saturation initiate ferrous sulfate.? Administer with vitamin-C follow CBC insulin-dependent type 2 diabetes without hyperglycemia Last Hgb A1c >14.0 ss, ada diet Obesity. BMI 30.1 Discussed importance of weight management as this may be contributing to worsening of other comorbidities DVT prophylaxis-Lovenox Attending Dr. Gonzalez Full code Attempted to reach out to patient's daughter, Monika, who was present this morning and called EMS to further elaborate on history and patient's baseline.? Did call her son, Gene who could not elaborate on history and stated his sister did not have a phone number but said he would reach out to her on Facebook and request she call us Patient requires inpatient stay of at least 2 midnights for management of acute hypoxemic respiratory failure with pneumonia Time Spent With Patient Time: Total time managing care of this patient today ____ minutes. Quality Stroke Does the patient have a stroke diagnosis?: No VTE Prior VTE?: No VTE Risk Level:: Medical - moderate - high VTE Device Contraindication: Treatment Not Indicated VTE Drug Contraindication: N/A - Med Ordered
[2022-07-22 12:00] VITALS: BP 167/78; PULSE 102; RESP 18; TEMP 36.3; O2SAT 96
[2022-07-22 12:06] LABS: Glucose, Whole Blood 103 mg/dL (60-115)
--- NOTE | 2022-07-22 15:14 | MHC.CM.PN ---
CM MET WITH PT WITH THE ASSISTANCE OF [facility] PT REPORTS SHE LIVES WITH FAMILY AND IS INDEPENDENT WITH CARE PT HAS NO DME AND NO HOME SERVICES SHE REPORTS SHE WOULD LIKE SOMEONE TO ASSIST HER AT HOME PT ENCOURAGED TO DISCUSS THIS WITH HER PCP PT IS NOT COVID VAX SHE DECLINES TO COMPLETE A HCP PCP: CARMEL MILIAN AT [facility] DCP: HOME NO SERVICES PT TO ARRANGE TRANSPORT
[2022-07-22 15:53] VITALS: BP 170/78; PULSE 98; RESP 17; TEMP 36.6; O2SAT 96
[2022-07-22 16:28] LABS: Glucose, Whole Blood 139 mg/dL (60-115)
[2022-07-22] MEDS: Enoxaparin Sodium 40 MG/0.4 ML SYRINGE SUBCUT (18:46)
[2022-07-22 19:44] VITALS: BP 174/72; PULSE 98; RESP 17; TEMP 36.8; O2SAT 93
[2022-07-22 20:37] LABS: Glucose, Whole Blood 205 mg/dL (60-115)
[2022-07-22] MEDS: Insulin Lispro 100 UNIT/ML 3 ML VIAL SUBCUT (21:34)
[2022-07-22] MEDS: Atorvastatin Calcium 80 MG TABLET PO (21:34)
[2022-07-22] MEDS: Insulin Glargine,Hum.rec.anlog 100 UNIT/ML 10 ML VIAL 22 UNIT SUBCUT (21:35)
[2022-07-22 22:28] LABS: Troponin-I High Sensitivity 24.6 ng/L (<3.5-17.0)
[2022-07-22 23:56] VITALS: BP 185/83; PULSE 107; RESP 18; TEMP 36.4; O2SAT 96
[2022-07-23] VITALS (7 sets, daily range): BP systolic 147–195; BP diastolic 66–97; PULSE 96–111; RESP 16–18; TEMP 36.3–36.9; O2SAT 94–100
[2022-07-23] MEDS: cefEPime HCl 2 GM in 0.9 % Sodium Chloride 50 ML IV ×3 (00:09→15:54)
--- NOTE | 2022-07-23 04:37 | PC.NURSE ---
07/22/22- This RN assessed pt at 21:20, and pt complained of 5/10 chest pain, SOB, BP 174/72, teley sinus tachy 100s,intermittent non-productive cough & appeared anxious. MD Hooker was notified of the situation. EKG & labs were ordered. No other orders were given. Will continue to monitor pt's symptoms.
[2022-07-23 07:50] LABS: Glucose, Whole Blood 61 mg/dL (60-115)
[2022-07-23 08:47] LABS: Glucose, Whole Blood 179 mg/dL (60-115)
[2022-07-23] MEDS: Erythromycin Base 0.5% Oph Oin 1 GM TUBE 1 CM EYE-RIGHT ×4 (08:59→20:55)
[2022-07-23] MEDS: Aspirin Enteric Coated 81 MG TABLET.DR PO (08:59)
[2022-07-23] MEDS: Ferrous Sulfate 324 MG TABLET.DR PO (08:59)
[2022-07-23] MEDS: Ascorbic Acid 250 MG TABLET PO (08:59)
[2022-07-23] MEDS: 0.9 % Sodium Chloride Flush 3 ML SYRINGE IVFLUSH ×3 (09:01→20:55)
[2022-07-23] MEDS: Azithromycin 500 MG in 0.9 % Sodium Chloride 250 ML 125 MG IV (09:32)
--- NOTE | 2022-07-23 10:35 | P.CNNE_ITS ---
History of Present Illness Data of Consult Service Date: 07/23/22 Primary Care Provider: [facility] Reason for consult: Abnormal head CT 52 years old woman with hypertension and diabetes admitted in hospital with blurred vision. She was a difficult historian and exact symptoms were difficult to get. Apparently she had a head CT done that revealed an abnormality prompting this consultation. She was not known to have any seizure disorder. Review of Systems Review of Systems: Could not be done with her [facility] Past Medical History Medical History (Updated 07/23/22 @ 10:37 by Carlos Strickland MD) Depression HLD (hyperlipidemia) Iron deficiency anemia Type 2 diabetes mellitus Family History Family History Other Hypertension Social History Social History Household Members: Family Housing: Apartment Do you presently have visiting nurse or other home services: Yes Alcohol intake: unknown Patient Tobacco Use Status: Never used Tobacco Smoked in Last 30 Days: No Use of substances other than those prescribed or required for medical reasons: No Currently Displaying Signs/Symptoms of Drug Intoxication Withdrawal: No Have you been hit, kicked, punched, or otherwise hurt by someone within the past year? If so, by whom?: No Do you feel safe in your current relationship?: Yes Is there a partner from a previous relationship who is making you feel unsafe now?: No Are you made to feel afraid or neglected: No Yazidism Healthcare Practices: Restorationism Advance Directives: Yes Advance Directives on File: Yes Advance Directives Date on File: 06/19/21 Do you have thoughts of harming others: None Do you have a plan to hurt others: No Plan Recently lost weight without trying: Yes How much weight loss: Unsure Eating poorly because of decreased appetite: No Nutrition screen score: 4 Nutrition Risks: No Nutritional Risk Patient : No : No Poor oral hygiene: No service: No Current occupational status: unemployed Meds Allergies Allergy/AdvReac Type Severity Reaction Status Date / Time shrimp Allergy Swelling Verified 06/07/22 08:58 Active Medications: Current Medications Acetaminophen (Acetaminophen 325 Mg Tablet) 650 mg PO Q6H PRN PRN Reason: Pain, Mild (Pain Scale 1-3) Ascorbic Acid (Ascorbic Acid 250 Mg Tablet) 250 mg PO DAILY [facility] Last Admin: 07/23/22 08:59 Dose: 250 mg Aspirin (Aspirin Enteric Coated 81 Mg Tablet.) 81 mg PO DAILY [facility] Last Admin: 07/23/22 08:59 Dose: 81 mg Atorvastatin Calcium (Atorvastatin Calcium 80 Mg Tablet) 80 mg PO BEDTIME [facility] Last Admin: 07/22/22 21:34 Dose: 80 mg Enoxaparin Sodium (Enoxaparin Sodium 40 Mg/0.4 Ml Syringe) 40 mg SUBCUT Q24H [facility] Last Admin: 07/22/22 18:46 Dose: 40 mg Erythromycin (Erythromycin Base 0.5% Oph Oin 1 Gm Tube) 1 cm EYE-RIGHT QID [facility] Last Admin: 07/23/22 08:59 Dose: 1 cm Ferrous Sulfate (Ferrous Sulfate 324 Mg Tablet.) 324 mg PO DAILY [facility] Last Admin: 07/23/22 08:59 Dose: 324 mg Glucose (Glucose Gel 15 Gm Gel..Gram.) 15 gm PO Q15M PRN; Protocol PRN Reason: per Hypoglycemia Standing Ord. Guaifenesin (Guaifenesin 200 Mg/10 Ml 10 Ml Liquid) 10 ml PO Q6H PRN PRN Reason: Cough Dextrose (D10) 250 mls @ 750 mls/hr IV Q15M PRN; Protocol PRN Reason: per Hypoglycemia Standing Ord. Cefepime HCl 2 gm/ Sodium (Chloride) 50 mls @ 100 mls/hr IV Q8H [facility] Last Infusion: 07/23/22 09:35 Dose: Infused Azithromycin 500 mg/ Sodium (Chloride) 250 mls @ 125 mls/hr IV Q24H [facility] Last Admin: 07/23/22 09:32 Dose: 125 mls/hr Insulin Glargine (Insulin Glargine,Hum.Rec.Anlog 100 Unit/Ml 10 Ml Vial) 22 unit SUBCUT BEDTIME [facility] Last Admin: 07/22/22 21:35 Dose: 22 unit Insulin Human Lispro (Insulin Lispro 100 Unit/Ml 3 Ml Vial) 0 unit SUBCUT QIDACHS [facility]; Protocol Last Admin: 07/23/22 08:51 Dose: Not Given Ondansetron HCl (Ondansetron Hcl 4 Mg/2 Ml Vial) 4 mg IVPUSH Q8H PRN PRN Reason: Nausea and Vomiting Pharmacy Consult (Consult Rx Perform Med Rec) 1 each MISCELLANE ONCE PRN PRN Reason: Consult order Senna (Sennosides 8.6 Mg Tablet) 17.2 mg PO BEDTIME PRN PRN Reason: Constipation Sodium Chloride (0.9 % Sodium Chloride Flush 3 Ml Syringe) 3 ml IVFLUSH QSHIFT [facility] Last Admin: 07/23/22 09:01 Dose: 3 ml Home Medications Medication Instructions Recorded Confirmed Last Taken Type acetaminophen 325 mg tablet 325 mg PO DAILY PRN Pain 07/21/22 07/21/22 Unknown History aspirin 81 mg tablet,delayed 1 tab PO DAILY 07/21/22 07/21/22 07/21/22 History release atorvastatin 80 mg tablet 1 tab PO BEDTIME 07/21/22 07/21/22 Unknown History insulin glargine 100 unit/mL (3 30 unit subcut BEDTIME 07/21/22 07/21/22 Unknown History mL) subcutaneous pen (Lantus Solostar U-100 Insulin) insulin lispro 100 unit/mL See Protocol subcut TIDAC 07/21/22 07/21/22 Unknown History subcutaneous pen metformin 1,000 mg tablet 1 tab PO BID 07/21/22 07/21/22 07/21/22 History pioglitazone 30 mg tablet 1 tab PO DAILY 07/21/22 07/21/22 07/21/22 History Physical Exam Vital Signs: Vital Signs: Last Vital Signs Temp 98.3 F 07/23/22 08:00 Pulse 97 07/23/22 08:00 Resp 18 07/23/22 08:00 BP 183/85 H 07/23/22 08:00 Pulse Ox 94 07/23/22 08:00 O2 Del Method 07/23/22 08:00 O2 Flow Rate 2 07/23/22 08:00 BMI result Body Mass Index 30.1 Neuro: Other: When I arrived she was emotional slightly agitated and sobbing and crying. Few minutes later she was talking and without any distress. She said that she was not in pain and was feeling dizzy. She was complaining of discomfort where the IV was inserted. There was no obvious speech or language difficulty or focal weakness. Exam was limited. Face was symmetrical. Results Labs 07/22/22 05:35 07/22/22 05:35 Labs: Noncontrast head CT revealed dilatation of left temporal horn compared to her scan last year. There was significant enlargement. Microbiology Microbiology Results: Microbiology 07/21/22 Unknown Urine clean catch - Urine tyler top Urine Culture - Final 07/21/22 16:36 Blood - Venous Blood Culture - Preliminary No growth after 24 hours. 07/21/22 16:38 Blood - Venous Blood Culture - Preliminary No growth after 24 hours. Assessment and Plan (1) Brain lesion: Status: Acute 52 years old woman with hypertension and diabetes with nonspecific sympto matology. Her head CT revealed dilatation of left temporal horn compared to her scan a year ago. It could be due to an asymptomatic infarct. Recommendation is to obtain an MRI with and without contrast to rule out any possibility of malignancy. Time Spent With Patient Time: Total time managing care of this patient today ____ minutes. Procedures Date of Service Date of Service: 07/23/22
[2022-07-23] MEDS: lisinopriL 5 MG TABLET PO (11:13)
[2022-07-23] MEDS: diphenhydrAMINE HCL 50 MG/ML VIAL 25 MG IVPUSH (11:14)
[2022-07-23 11:25] LABS: Glucose, Whole Blood 195 mg/dL (60-115)
[2022-07-23] MEDS: Insulin Lispro 100 UNIT/ML 3 ML VIAL SUBCUT ×2 (11:44→17:03)
--- NOTE | 2022-07-23 11:44 | P.PNIM_ITS ---
Subjective Subjective Date of Service: 07/23/22 Interval History: No acute issues overnight remains afebrile no sob or chest pain Review of Systems Denies chest pain Denies shortness of breath Denies nausea vomiting diarrhea Denies fever chills Physical Exam Vital Signs: Vital Signs: Last Vital Signs Temp 98.3 F 07/23/22 08:00 Pulse 97 07/23/22 08:00 Resp 18 07/23/22 08:00 BP 183/85 H 07/23/22 08:00 Pulse Ox 94 07/23/22 08:00 O2 Del Method 07/23/22 08:00 O2 Flow Rate 2 07/23/22 08:00 BMI result Body Mass Index 30.1 Appearing in no acute distress, anxious lung sounds are clear to auscultation heart regular rate rhythm, clear S1, S2 positive bowel sounds, abdomen is soft, nontender neuro patient is alert x3, no focal deficits Objective Data Active Medications Acetaminophen (Acetaminophen 325 Mg Tablet) 650 mg PO Q6H PRN PRN Reason: Pain, Mild (Pain Scale 1-3) Ascorbic Acid (Ascorbic Acid 250 Mg Tablet) 250 mg PO DAILY [facility] Last Admin: 07/23/22 08:59 Dose: 250 mg Documented By: ADRI Aspirin (Aspirin Enteric Coated 81 Mg Tablet.) 81 mg PO DAILY [facility] Last Admin: 07/23/22 08:59 Dose: 81 mg Documented By: ADRI Atorvastatin Calcium (Atorvastatin Calcium 80 Mg Tablet) 80 mg PO BEDTIME [facility] Last Admin: 07/22/22 21:34 Dose: 80 mg Documented By: ZULMA Enoxaparin Sodium (Enoxaparin Sodium 40 Mg/0.4 Ml Syringe) 40 mg SUBCUT Q24H [facility] Last Admin: 07/22/22 18:46 Dose: 40 mg Documented By: NICHOLAS Erythromycin (Erythromycin Base 0.5% Oph Oin 1 Gm Tube) 1 cm EYE-RIGHT QID [facility] Last Admin: 07/23/22 08:59 Dose: 1 cm Documented By: ADRI Ferrous Sulfate (Ferrous Sulfate 324 Mg Tablet.) 324 mg PO DAILY [facility] Last Admin: 07/23/22 08:59 Dose: 324 mg Documented By: ADRI Glucose (Glucose Gel 15 Gm Gel..Gram.) 15 gm PO Q15M PRN; Protocol PRN Reason: per Hypoglycemia Standing Ord. Guaifenesin (Guaifenesin 200 Mg/10 Ml 10 Ml Liquid) 10 ml PO Q6H PRN PRN Reason: Cough Dextrose (D10) 250 mls @ 750 mls/hr IV Q15M PRN; Protocol PRN Reason: per Hypoglycemia Standing Ord. Cefepime HCl 2 gm/ Sodium (Chloride) 50 mls @ 100 mls/hr IV Q8H [facility] Last Infusion: 07/23/22 09:35 Dose: 0 mls/hr Documented By: ADRI Azithromycin 500 mg/ Sodium (Chloride) 250 mls @ 125 mls/hr IV Q24H [facility] Last Admin: 07/23/22 09:32 Dose: 125 mls/hr Documented By: ADRI Insulin Glargine (Insulin Glargine,Hum.Rec.Anlog 100 Unit/Ml 10 Ml Vial) 22 unit SUBCUT BEDTIME [facility] Last Admin: 07/22/22 21:35 Dose: 22 unit Documented By: ZULMA Insulin Human Lispro (Insulin Lispro 100 Unit/Ml 3 Ml Vial) 0 unit SUBCUT QIDACHS [facility]; Protocol Last Admin: 07/23/22 08:51 Dose: Not Given Documented By: ADRI Non-Admin Reason: No Insulin Coverage Comments: Morning glucose 61 Lisinopril (Lisinopril 5 Mg Tablet) 5 mg PO DAILY [facility]; Protocol Last Admin: 07/23/22 11:13 Dose: 5 mg Documented By: ADRI Ondansetron HCl (Ondansetron Hcl 4 Mg/2 Ml Vial) 4 mg IVPUSH Q8H PRN PRN Reason: Nausea and Vomiting Pharmacy Consult (Consult Rx Perform Med Rec) 1 each MISCELLANE ONCE PRN PRN Reason: Consult order Senna (Sennosides 8.6 Mg Tablet) 17.2 mg PO BEDTIME PRN PRN Reason: Constipation Sodium Chloride (0.9 % Sodium Chloride Flush 3 Ml Syringe) 3 ml IVFLUSH QSHIFT [facility] Last Admin: 07/23/22 09:01 Dose: 3 ml Documented By: ADRI Labs 07/22/22 05:35 07/22/22 05:35 Labs: Laboratory Results - last 24 hr 07/22/22 07/22/22 07/22/22 11:47 16:24 20:34 POC Glucose 103 139 H 205 H Troponin I High Sens 07/22/22 07/23/22 07/23/22 22:03 07:40 08:44 POC Glucose 61 179 H Troponin I High Sens 24.6 H 07/23/22 11:21 POC Glucose 195 H Troponin I High Sens Microbiology Microbiology Results: Microbiology 07/21/22 Unknown Urine Culture - Final Urine clean catch - Urine tyler top 07/21/22 16:36 Blood Culture - Preliminary Blood - Venous No growth after 24 hours. 07/21/22 16:38 Blood Culture - Preliminary Blood - Venous No growth after 24 hours. Assessment and Plan (1) HCAP (healthcare-associated pneumonia): Status: Acute Plan 52-year-old female with history of depression and insulin-dependent type 2 diabetes and recent diagnosis of UTI treated with cefuroxime admitted for acute hypoxemic respiratory failure and possible pneumonia. Acute hypoxemic respiratory failure secondary to multifocal pneumonia no sepsis chest CT showing moderate size left pleural effusion with dense area of consolidation and left lower lobe suspicious for multifocal pneumonia continue supplemental O2 to maintain oximetry above 95% cefepime and azithromycin 2/5 Blurred vision- likely related to conjunctivitis, but only noted in right eye pt history vague head ct showing asymmetric loss of parenchymal volume within the left anterior temporal lobe with enlargement of left temporal horn Consult neurology rec MRI w/wo to r/o malignancy erythromycin q.i.d. ? syncope. No further episodes Pt states i felt I passed out and it was like god was lifting me Head CT ordered Pt otherwise oriented x 3, no acute encephalopthy iron deficiency anemia denies bleeding episodes, stool occult blood negative iron 26, TIBC 247, 11% saturation initiate ferrous sulfate.? Administer with vitamin-C follow CBC insulin-dependent type 2 diabetes without hyperglycemia Last Hgb A1c >14.0 ss, ada diet Obesity. BMI 30.1 Discussed importance of weight management as this may be contributing to worsening of other comorbidities DVT prophylaxis-Lovenox Attending Dr. Luong Full code continue hospital stay for management of acute hypoxemic respiratory failure with pneumonia Time Spent With Patient Time: Total time managing care of this patient today ____ minutes. Quality Stroke Does the patient have a stroke diagnosis?: No VTE Prior VTE?: No VTE Risk Level:: Medical - moderate - high VTE Device Contraindication: Treatment Not Indicated VTE Drug Contraindication: N/A - Med Ordered
[2022-07-23] MEDS: LORazepam 2 MG/ML VIAL 1 MG IVPUSH (12:22)
--- NOTE | 2022-07-23 12:31 | MHC.CM.PN ---
Per MD rounds Patient will be evaluated by PT today.
--- NOTE | 2022-07-23 13:37 | PC.NURSE ---
Addendum entered by Kelly Marin RN 07/23/22 17:27: BP continues to be elevated TRACK REPAIR SUPERVISOR notified of BP 178/84 at 1629. Original Note: TRACK REPAIR SUPERVISOR Jade Maldonado informed of pts elevated BPs this am and again at 11:19 BP 195/91, 5mg of lisinopril given per order. BP recheck due, pt unavailable at MRI at this time. Pt endorses anxiety, 1mg IVP lorazepam given before MRI.
[2022-07-23 16:36] LABS: Glucose, Whole Blood 154 mg/dL (60-115)
[2022-07-23] MEDS: Enoxaparin Sodium 40 MG/0.4 ML SYRINGE SUBCUT (18:16)
[2022-07-23] MEDS: Atorvastatin Calcium 80 MG TABLET PO (20:55)
[2022-07-23 21:26] LABS: Glucose, Whole Blood 147 mg/dL (60-115)
[2022-07-23] MEDS: Insulin Glargine,Hum.rec.anlog 100 UNIT/ML 10 ML VIAL 22 UNIT SUBCUT (21:30)
[2022-07-24] MEDS: cefEPime HCl 2 GM in 0.9 % Sodium Chloride 50 ML IV ×2 (00:23→08:28)
[2022-07-24 03:32] VITALS: BP 122/58; PULSE 106; RESP 18; TEMP 36.4; O2SAT 93
[2022-07-24 07:17] VITALS: BP 158/70; PULSE 101; RESP 18; TEMP 36.1; O2SAT 94
[2022-07-24 07:29] LABS: Glucose, Whole Blood 126 mg/dL (60-115)
[2022-07-24] MEDS: Aspirin Enteric Coated 81 MG TABLET.DR PO (08:28)
[2022-07-24] MEDS: lisinopriL 5 MG TABLET PO (08:28)
[2022-07-24] MEDS: Ferrous Sulfate 324 MG TABLET.DR PO (08:28)
[2022-07-24] MEDS: Ascorbic Acid 250 MG TABLET PO (08:28)
[2022-07-24] MEDS: 0.9 % Sodium Chloride Flush 3 ML SYRINGE IVFLUSH (08:29)
[2022-07-24] MEDS: Erythromycin Base 0.5% Oph Oin 1 GM TUBE 1 CM EYE-RIGHT ×2 (08:29→11:57)
[2022-07-24 08:46] LABS: Hematocrit 25.6 % (37.0-47.0); Mean Corpuscular HGB Conc 31.3 g/dl (31.0-35.0); Mean Corpuscular Hemoglobin 28.3 pg (27.0-33.0); Mean Corpuscular Volume 90.5 fL (80.0-98.0); Mean Platelet Volume 8.8 fL (9.4-12.3); Platelet Count 300 X10*3/uL (160-400); Red Blood Count 2.83 X10*6/uL (4.20-5.50); Red Cell Distribution Width 14.6 % (11.0-16.0); White Blood Count 6.4 X10*3/uL (4.8-10.8)
[2022-07-24] MEDS: Azithromycin 500 MG in 0.9 % Sodium Chloride 250 ML 125 MG IV (09:05)
[2022-07-24 11:08] LABS: Glucose, Whole Blood 167 mg/dL (60-115)
[2022-07-24] MEDS: Insulin Lispro 100 UNIT/ML 3 ML VIAL SUBCUT ×2 (11:57→16:51)
--- NOTE | 2022-07-24 12:55 | MHC.CM.PN ---
Addendum entered by Gila Rondon 07/24/22 15:49: IMM 07/24/22 Patient has accepted a bed offer from [facility] and [facility]. DC Summary, Packet and negative covid test result have been sent to the facility. Patient will transport via BLS 5pm leaf size picker @ [facility]. Original Note: Per MD rounds patient ready to discharge today. PT Eval recommends STR. Patients preferences obtained, referrals sent. No bed offers have been received. 4 additional area facilities have been referred. DP STR VIA BLS. CM will continue to follow for placement.
--- NOTE | 2022-07-24 13:27 | HO.PM.IMPN ---
Subjective Subjective Date of Service: 07/24/22 Interval History: No acute issues overnight remains afebrile no sob or chest pain Review of Systems Denies chest pain Denies shortness of breath Denies nausea vomiting diarrhea Denies fever chills Physical Exam Vital Signs: Vital Signs: Last Vital Signs Temp 97 F 07/24/22 07:17 Pulse 101 H 07/24/22 07:17 Resp 18 07/24/22 07:17 BP 158/70 H 07/24/22 07:17 Pulse Ox 94 07/24/22 07:17 O2 Del Method 07/24/22 07:17 O2 Flow Rate 2 07/24/22 07:17 BMI result Body Mass Index 30.1 Appearing in no acute distress lung sounds are clear to auscultation heart regular rate rhythm, clear S1, S2 positive bowel sounds, abdomen is soft, nontender neuro patient is alert x3, no focal deficits Objective Data Active Medications Acetaminophen (Acetaminophen 325 Mg Tablet) 650 mg PO Q6H PRN PRN Reason: Pain, Mild (Pain Scale 1-3) Ascorbic Acid (Ascorbic Acid 250 Mg Tablet) 250 mg PO DAILY [facility] Last Admin: 07/24/22 08:28 Dose: 250 mg Documented By: ADRI Aspirin (Aspirin Enteric Coated 81 Mg Tablet.) 81 mg PO DAILY [facility] Last Admin: 07/24/22 08:28 Dose: 81 mg Documented By: ADRI Atorvastatin Calcium (Atorvastatin Calcium 80 Mg Tablet) 80 mg PO BEDTIME [facility] Last Admin: 07/23/22 20:55 Dose: 80 mg Documented By: ABELORALAide Enoxaparin Sodium (Enoxaparin Sodium 40 Mg/0.4 Ml Syringe) 40 mg SUBCUT Q24H [facility] Last Admin: 07/23/22 18:16 Dose: 40 mg Documented By: ADRI Erythromycin (Erythromycin Base 0.5% Oph Oin 1 Gm Tube) 1 cm EYE-RIGHT QID [facility] Last Admin: 07/24/22 11:57 Dose: 1 cm Documented By: ADRI Ferrous Sulfate (Ferrous Sulfate 324 Mg Tablet.) 324 mg PO DAILY [facility] Last Admin: 07/24/22 08:28 Dose: 324 mg Documented By: ADRI Glucose (Glucose Gel 15 Gm Gel..Gram.) 15 gm PO Q15M PRN; Protocol PRN Reason: per Hypoglycemia Standing Ord. Guaifenesin (Guaifenesin 200 Mg/10 Ml 10 Ml Liquid) 10 ml PO Q6H PRN PRN Reason: Cough Dextrose (D10) 250 mls @ 750 mls/hr IV Q15M PRN; Protocol PRN Reason: per Hypoglycemia Standing Ord. Cefepime HCl 2 gm/ Sodium (Chloride) 50 mls @ 100 mls/hr IV Q8H [facility] Last Infusion: 07/24/22 09:08 Dose: 0 mls/hr Documented By: ADRI Azithromycin 500 mg/ Sodium (Chloride) 250 mls @ 125 mls/hr IV Q24H [facility] Last Infusion: 07/24/22 11:16 Dose: 0 mls/hr Documented By: ADRI Insulin Glargine (Insulin Glargine,Hum.Rec.Anlog 100 Unit/Ml 10 Ml Vial) 22 unit SUBCUT BEDTIME [facility] Last Admin: 07/23/22 21:30 Dose: 22 unit Documented By: JAX Insulin Human Lispro (Insulin Lispro 100 Unit/Ml 3 Ml Vial) 0 unit SUBCUT QIDACHS [facility]; Protocol Last Admin: 07/24/22 11:57 Dose: 2 unit Documented By: ADRI Lisinopril (Lisinopril 5 Mg Tablet) 5 mg PO DAILY [facility]; Protocol Last Admin: 07/24/22 08:28 Dose: 5 mg Documented By: ADRI Ondansetron HCl (Ondansetron Hcl 4 Mg/2 Ml Vial) 4 mg IVPUSH Q8H PRN PRN Reason: Nausea and Vomiting Pharmacy Consult (Consult Rx Perform Med Rec) 1 each MISCELLANE ONCE PRN PRN Reason: Consult order Senna (Sennosides 8.6 Mg Tablet) 17.2 mg PO BEDTIME PRN PRN Reason: Constipation Sodium Chloride (0.9 % Sodium Chloride Flush 3 Ml Syringe) 3 ml IVFLUSH QSHIFT [facility] Last Admin: 07/24/22 08:29 Dose: 3 ml Documented By: ADRI Labs 07/24/22 08:14 07/22/22 05:35 Labs: Laboratory Results - last 24 hr 07/23/22 07/23/22 07/24/22 16:29 21:18 07:17 MCV MCH MCHC RDW Plt Count MPV Absolute Nucleated RBC Nucleated RBC % (auto) POC Glucose 154 H 147 H 126 H 07/24/22 07/24/22 08:14 11:03 MCV 90.5 MCH 28.3 MCHC 31.3 RDW 14.6 Plt Count 300 D MPV 8.8 L Absolute Nucleated RBC 0.000 Nucleated RBC % (auto) 0.0 POC Glucose 167 H Microbiology Microbiology Results: Microbiology 07/21/22 16:36 Blood Culture - Preliminary Blood - Venous No growth after 48 hours. 07/21/22 16:38 Blood Culture - Preliminary Blood - Venous No growth after 48 hours. Assessment and Plan (1) HCAP (healthcare-associated pneumonia): Status: Acute Plan 52-year-old female with history of depression and insulin-dependent type 2 diabetes and recent diagnosis of UTI treated with cefuroxime admitted for acute hypoxemic respiratory failure and possible pneumonia. Acute hypoxemic respiratory failure secondary to multifocal pneumonia. Resolved no sepsis chest CT showing moderate size left pleural effusion with dense area of consolidation and left lower lobe suspicious for multifocal pneumonia continue supplemental O2 to maintain oximetry above 95% cefepime and azithromycin 3/5 Blurred vision- likely related to conjunctivitis, but only noted in right eye pt history vague head ct showing asymmetric loss of parenchymal volume within the left anterior temporal lobe with enlargement of left temporal horn Consult neurology rec MRI w/wo to r/o malignancy erythromycin q.i.d. ? syncope. No further episodes Pt states i felt I passed out and it was like god was lifting me Head CT ordered Pt otherwise oriented x 3, no acute encephalopthy iron deficiency anemia denies bleeding episodes, stool occult blood negative iron 26, TIBC 247, 11% saturation initiate ferrous sulfate.? Administer with vitamin-C follow CBC insulin-dependent type 2 diabetes without hyperglycemia Last Hgb A1c >14.0 ss, ada diet Obesity. BMI 30.1 Discussed importance of weight management as this may be contributing to worsening of other comorbidities DVT prophylaxis-Lovenox Attending Dr. Luong Full code continue hospital stay for management of acute hypoxemic respiratory failure with pneumonia Time Spent With Patient Time: Total time managing care of this patient today ____ minutes. Quality Stroke Does the patient have a stroke diagnosis?: No VTE Prior VTE?: No VTE Risk Level:: Medical - moderate - high VTE Device Contraindication: Treatment Not Indicated VTE Drug Contraindication: N/A - Med Ordered
[2022-07-24 13:56] VITALS: O2SAT 94
--- NOTE | 2022-07-24 15:27 | PM.DS ---
DS: Providers Provider Date of Service: 07/24/22 Date of admission: 07/21/22 18:37 Primary care physician: [facility] Consults: 07/22/22 11:32 Consult to Neurology Routine Consulting Provider: [facility] Reason for consultation: abnormal head CT Has provider been notified: No Attending physician on discharge: Julio Luong Discharging clinician: Jade Maldonado DS: Diagnosis Discharge Diagnosis (1) HCAP (healthcare-associated pneumonia): Status: Acute DS: Summary Hospital Course Hospital Course: HP as per admitting provider 52-year-old female with history of depression and [id number] type 2 diabetes and recent diagnosis of UTI treated with cefuroxime presents to the ED via EMS for evaluation of blurred vision. Pt is not the best historian and history is vague and disjointed. She also reports generally feeling unwell and weakness. She states x 1 week BLE edema and legs feel like cement. This morning she felt so her daughter called EMS. Tells me she has intermittent bilateral blurred vision, like snow , and that she passed out for several hours while her daughter called EMS. Has been unable to read her glucometer.? This morning there was some general soreness and discharge of the right eye.? She states the vision was better and could see again during ED provider exam,but blurred again on my exam. EMS noted glucose 114.? No fevers, chills, headaches, sore throat, congestion, abdominal pain, nausea, vomiting, shortness of breath, cough, chest pain.? On arrival, patient tachycardic to 113 with oxygen levels desaturating to the 70s placed on 2 L supplemental O2 with improvement to 95%.? There is no leukocytosis.? H/H 7.8/24.7% (9.7/29.5% on 07/16).? MCV normal.? Denies any bleeding episodes.? Renal function normal, electrolyte levels normal.? Iron 26, saturation 11%, TIBC 247.? AST 107, ALT 88, alkaline phosphatase 159, LDH 343, BNP 149, procalcitonin 0.16.? Stool occult blood negative.? Negative for COVID-19.? CXR showing probable small left pleural effusion with super adjacent atelectasis/infiltrate.? Patient recently discharged on 06/11 for UTI and was not compliant with her medications.? As result, ED prescribed cefepime to cover for Hcap. Reportedly lives with her 6 children. Call placed to son who was not able to give addl history, and requested he reach out to daughter, Monika, who was present this morning but did not know her phone number and the patient was unable to provider me with this . Acute hypoxemic respiratory failure secondary to multifocal pneumonia. Resolved no sepsis chest CT showing moderate size left pleural effusion with dense area of consolidation and left lower lobe suspicious for multifocal pneumonia continue supplemental O2 to maintain oximetry above 95% cefepime and azithromycin Initially, switched to Ceftin and azithromycin for 4 more day Blurred vision- likely related to conjunctivitis, but only noted in right eye. Resolved pt history vague treated with erythromycin q.i.d. syncope. 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 insulin-dependent type 2 diabetes without hyperglycemia continue home medications Obesity.? BMI 30.1 Discussed importance of weight management as this may be contributing to worsening of other comorbidities Time Spent with Patient Time attestation: Total time managing care of this patient today ____ minutes. Discharge coordination time: Greater than 30 minutes Quality: Safe Use of Opioids Does Pt have an Active Cancer Diagnosis on the Problem List?: No Quality: Stroke Does the patient have a stroke diagnosis?: No Physical Exam Vital Signs: Vital Signs: Last Vital Signs Temp 97 F 07/24/22 07:17 Pulse 101 H 07/24/22 07:17 Resp 18 07/24/22 07:17 BP 158/70 H 07/24/22 07:17 Pulse Ox 94 07/24/22 13:56 O2 Del Method 07/24/22 13:56 O2 Flow Rate 1 07/24/22 13:56 BMI result Body Mass Index 30.1 Appearing in no acute distress head is normocephalic atraumatic eyes pupils are PERRLA sclera is anicteric mouth throat mucous membranes are intact and moist neck is supple no lymphadenopathy, no JVD noted lung sounds are clear to auscultation heart regular rate rhythm, clear S1, S2 positive bowel sounds, abdomen is soft, nontender neuro patient is alert x3, no focal deficits DS: Data Data Completed and Pending Labs on day of discharge: Laboratory Results - last 24 hr 07/23/22 07/23/22 07/24/22 16:29 21:18 07:17 WBC RBC Hgb Hct MCV MCH MCHC RDW Plt Count MPV Absolute Nucleated RBC Nucleated RBC % (auto) POC Glucose 154 H 147 H 126 H 07/24/22 07/24/22 08:14 11:03 WBC 6.4 RBC 2.83 L Hgb 8.0 L Hct 25.6 L MCV 90.5 MCH 28.3 MCHC 31.3 RDW 14.6 Plt Count 300 D MPV 8.8 L Absolute Nucleated RBC 0.000 Nucleated RBC % (auto) 0.0 POC Glucose 167 H Preliminary micro results at discharge 07/21/22 16:36 Blood Culture - Preliminary Blood - Venous No growth after 48 hours. 07/21/22 16:38 Blood Culture - Preliminary Blood - Venous No growth after 48 hours. Discharge Plan Discharge Anticipated Discharge Date/Time: 07/24/22 15:24 Patient Disposition: er Inpatient Rehab Fac Discharge Diagnosis: acute hypoxic respiratory failure Multifocal pneumonia Syncope Iron deficiency anemia Referrals: [facility] [Other] - 1 Week Center,[facility] [Primary Care Provider] - 1 Week Discharge Medications: New azithromycin 500 mg tablet 500 mg PO DAILY 4 Days Qty: 4 0RF cefuroxime axetil 500 mg tablet 500 mg PO BID Qty: 8 0RF Continued atorvastatin 80 mg tablet 1 tab PO BEDTIME acetaminophen 325 mg Tablet 325 mg PO DAILY PRN (Reason: Pain) aspirin 81 mg tablet,delayed release (DR/EC) 1 tab PO DAILY metformin 1,000 mg tablet 1 tab PO BID pioglitazone 30 mg tablet 1 tab PO DAILY insulin lispro 100 unit/mL insulin pen See Protocol subcut TIDAC Protocol: Insulin Correction Scale Less than or equal to 110 ---- Give (units): 0 111 to 150 Give (units): 0 151 to 200 Give (units): 10 201 to 250 Give (units): 12 251 to 300 Give (units): 14 301 to 350 Give (units): 16 Greater than 350 Give (units): 18 Call MD if Blood Glucose > : 350 Rx Instructions: increase by 2 units per 50mg/dL insulin glargine [Lantus Solostar U-100 Insulin] 100 unit/mL (3 mL) insulin pen 30 unit subcut BEDTIME Discharge Orders: Discharge Order (Routine); Ordered 07/24/22 Ordered By: Jade Maldonado Diet: Advance to usual diet Activity on Discharge: As tolerated Stand Alone Forms: Patient Portal Discharge page Care Plan Goals: complete resolution of symptoms Health Concerns: acute hypoxemic respiratory failure Multifocal pneumonia Syncope Iron deficiency anemia Plan of Treatment: Take all medications as prescribed Follow-up with primary care provider as needed Assessment: see discharge summary
[2022-07-24 16:00] VITALS: BP 183/84; PULSE 108; RESP 18; TEMP 36.1; O2SAT 93
[2022-07-24 16:28] LABS: COVID-19 Test Negative (Negative); IDNOW Serial# 08D9AD1C
[2022-07-24 16:44] LABS: Glucose, Whole Blood 172 mg/dL (60-115)
[2022-07-24] MEDS: lisinopriL 2.5 MG TABLET PO (16:51)
== END 2022-07-24 17:45 | DRG 139 ==
LOC: HO.ED 15:50 → HO.EDOVER 18:47 → HO.S3 19:49
PROVIDERS: Internal Medicine; Physician Assistant; Admitting Provider Physician Assistant; Emergency Provider Emergency Medicine; PCP General Practice; Visit Provider Nurse Practitioner Acute Care
DX: J18.9 Pneumonia, unspecified organism (principal); J96.01 Acute respiratory failure with hypoxia; J91.8 Pleural effusion in other conditions classified elsewhere; E11.9 Type 2 diabetes mellitus without complications; E78.5 Hyperlipidemia, unspecified; D50.9 Iron deficiency anemia, unspecified; E66.9 Obesity, unspecified; G93.89 Other specified disorders of brain; R55 Syncope and collapse; I73.89 Other specified peripheral vascular diseases; H10.9 Unspecified conjunctivitis; Z20.822 Contact with and (suspected) exposure to COVID-19; Z68.30 Body mass index [BMI] 30.0-30.9, adult; Z79.4 Long term (current) use of insulin; Z79.82 Long term (current) use of aspirin; Z79.84 Long term (current) use of oral hypoglycemic drugs; Z79.899 Other long term (current) drug therapy
CPT/HCPCS: 36415; 70450; 70553; 71045; 71250; 80048; 80076; 81001; 82272; 82947; 83540; 83605; 83615; 83735; 83880; 84145; 84484; 85025; 85027; 87040; 87086; 87635; 93005; 97162; 97530; 99285; A9585; J0456; J0692; J1200; J1650; J2060

== ENCOUNTER 2022-09-07 02:43 | Emergency (ER) | payer MEDICAID, SELFPAY ==
--- NOTE | 2022-09-07 | ECG_ITS ---
Test Reason : ABNORMAL LABS Blood Pressure : / mmHG Vent. Rate : 084 BPM Atrial Rate : 084 BPM P-R Int : 144 ms QRS Dur : 078 ms QT Int : 410 ms P-R-T Axes : 057 -03 025 degrees QTc Int : 484 ms Normal sinus rhythm Prolonged QT Abnormal ECG When compared with ECG of 22-JUL-2022 22:12, No significant change was found Referred By: Pop Guadalupe Electronically Signed By:JAYA STOLL MD
[2022-09-07 02:52] VITALS: BP 182/90; PULSE 80; O2SAT 99
[2022-09-07 02:57] VITALS: BP 184/85; PULSE 92; RESP 12; TEMP 36.6; O2SAT 100; BMI 36.9
[2022-09-07 03:20] VITALS: BP 184/85; PULSE 92; RESP 12; TEMP 36.6; O2SAT 100
--- NOTE | 2022-09-07 03:23 | PC.NURSE ---
Pt ca&ox3. Pt states uses a brief and walker at home to ambulate. Pt reports a 10/10 abdm pain that radiates to lower back. Pt denies chest pain and sob. Will continue to monitor.
--- NOTE | 2022-09-07 03:32 | ED.ABDPAIN ---
HPI - Abdominal Pain General Chief Complaint: Abdominal Pain Stated Complaint: ABD Pain for 1 week with N/V Time Seen by Provider: 09/07/22 03:31 Source: patient Mode of arrival: EMS Limitations: no limitations History of Present Illness HPI narrative: Patient complaining of upper abdominal epigastric area pain for last few days history of same last month no nausea no vomiting no diarrhea pain gets worse after eating food patient was admitted here 07/21 for pneumonia and that time was she had same pain patient never had endoscopy /colonoscopy Related Data Home Medications Medication Instructions Recorded Confirmed acetaminophen 325 mg tablet 325 mg PO DAILY PRN Pain 07/21/22 07/21/22 aspirin 81 mg tablet,delayed 1 tab PO DAILY 07/21/22 07/21/22 release atorvastatin 80 mg tablet 1 tab PO BEDTIME 07/21/22 07/21/22 insulin glargine 100 unit/mL (3 30 unit subcut BEDTIME 07/21/22 07/21/22 mL) subcutaneous pen (Lantus Solostar U-100 Insulin) insulin lispro 100 unit/mL See Protocol subcut TIDAC 07/21/22 07/21/22 subcutaneous pen metformin 1,000 mg tablet 1 tab PO BID 07/21/22 07/21/22 pioglitazone 30 mg tablet 1 tab PO DAILY 07/21/22 07/21/22 Previous Rx's Medication Instructions Recorded azithromycin 500 mg tablet 500 mg PO DAILY 4 days #4 tabs 07/24/22 cefuroxime axetil 500 mg tablet 500 mg PO BID #8 tabs 07/24/22 ferrous sulfate 324 mg (65 mg 324 mg PO DAILY #30 tabs 07/24/22 iron) tablet,delayed release lisinopril 5 mg tablet 5 mg PO DAILY #30 tabs 07/24/22 Allergies Allergy/AdvReac Type Severity Reaction Status Date / Time shrimp Allergy Swelling Verified 06/07/22 08:58 Review of Systems Review of Systems Yes all other systems are reviewed and are negative PMFSH Past Medical History Medical History Anemia Brain lesion Depression HLD (hyperlipidemia) Iron deficiency anemia Type 2 diabetes mellitus Family History Family History Other Hypertension Social History Social History Household Members: Family Housing: Apartment Do you presently have visiting nurse or other home services: Yes Alcohol intake: unknown Patient Tobacco Use Status: Never used Tobacco Smoked in Last 30 Days: No Use of substances other than those prescribed or required for medical reasons: No Advance Directives: Yes Advance Directives on File: Yes Advance Directives Date on File: 06/19/21 Patient : No service: No Current occupational status: unemployed Physical Exam ED Vital Signs: Vital Signs - 24 hr 09/07/22 02:57 09/07/22 03:20 09/07/22 05:20 Temperature 97.9 F 97.9 F 98.1 F Pulse Rate 92 92 88 Respiratory Rate 12 12 17 Blood Pressure 184/85 H 184/85 H 210/83 H Pulse Oximetry 100 100 98 Oxygen Delivery Method Room Air Room Air Room Air 09/07/22 06:40 Temperature Pulse Rate 96 Respiratory Rate 16 Blood Pressure 167/66 H Pulse Oximetry 97 Oxygen Delivery Method Room Air BMI result Body Mass Index 36.9 Appearance: Alert. Oriented X3. No acute distress. Eyes: PERRLA, No Nystagmus ENT: Pharynx normal. Oral Mucosa moist Neck: Normal inspection. Neck supple. CVS: Normal heart rate and rhythm. Pulses normal. Respiratory: No respiratory distress. Equal air entry bilateral, no wheezing/rales/rhonchi Abdomen: Soft and upper abdominal tenderness Bowel sounds are present, no mass palpable, no CVA tenderness Skin: Skin warm and dry. Normal skin color. Normal skin turgor. Extremities: No lower extremity edema. No calf tenderness Neuro: Oriented X 3. No motor deficit. Medical Decision Making Medical Decision Making [facility] Narrative: Patient's hypokalemia and hypomagnesemia etiology not very clear patient any medication which causing the problem likely poor oral intake patient is not vomiting patient low potassium in 07/26 also the no EKG changes of hyperkalemia patient was given 20 mEq of IV potassium and 50 mg of p.o. potassium will recheck the labs if potassium level improved patient will be going home otherwise will admit the patient Lab Data [facility] Lab Attestation statement: I reviewed the patient's lab results. 09/07/22 04:07 09/07/22 04:07 Labs: Lab Results 09/07/22 09/07/22 Range/Units 04:07 04:07 WBC 7.4 (4.8-10.8) X10*3/uL RBC 3.36 L (4.20-5.50) X10*6/uL Hgb 9.5 L (12.0-16.0) g/dl Hct 27.4 L (37.0-47.0) % MCV 81.5 (80.0-98.0) fL MCH 28.3 (27.0-33.0) pg MCHC 34.7 (31.0-35.0) g/dl RDW 13.4 (11.0-16.0) % Plt Count 153 L D (160-400) X10*3/uL MPV 8.6 L (9.4-12.3) fL Immature Gran % (Auto) 0.1 (0.0-0.4) % Neut % (Auto) 42.8 L (45-73) % Lymph % (Auto) 47.6 H (20-40) % [place] % (Auto) 6.8 (2-11) % Eos % (Auto) 2.3 (0-4) % Baso % (Auto) 0.4 (0-2) % Lymph # (Auto) 3.5 (1.2-4.9) X10*3/uL [place] # (Auto) 0.5 (0.1-1.2) X10*3/uL Eos # (Auto) 0.2 (0.0-0.4) X10*3/uL Baso # (Auto) 0.0 (0.0-0.2) X10*3/uL Abs Immat Gran (auto) 0.01 (0.00-0.03) X10*3/uL Absolute Neuts (auto) 3.2 (2.0-8.3) x10*3/uL Absolute Nucleated RBC 0.000 (0.0-0.012) X10*3/uL Nucleated RBC % (auto) 0.0 (0.0-0.2) /100WBC Sodium 141 (135-145) mmol/L Potassium 2.5 L* D (3.3-5.1) mmol/L Chloride 109 H (96-108) mmol/L Carbon Dioxide 25 (22-29) mmol/L Anion Gap 10 L (12-20) BUN 9 (9-16) mg/dL Creatinine 0.56 (0.5-1.4) mg/dL Estim Creat Clear Calc 117.6 Estimated GFR > 60 Random Glucose 163 H (60-115) mg/dL Calcium 7.0 L D (8.4-10.2) mg/dL Magnesium 1.5 L (1.6-2.6) mg/dL Total Bilirubin 0.3 (0.0-1.0) mg/dL AST 10 (5-31) U/L ALT 9 (0-31) U/L Alkaline Phosphatase 51 (39-117) U/L Total Protein 4.7 L (6.5-8.0) g/dL Albumin 2.6 L (3.5-5.0) g/dL Lipase 25 (8-78) U/L Independent Interpretation I performed an independent interpretation of an: EKG Interpretation: Normal sinus rhythm heart rate 84 beats per minute prolonged QTC [address]-T no acute ischemia Medications Administered Discontinued Medications Generic Name Dose Route Start Last Admin Trade Name Freq PRN Reason Stop Dose Admin Al Hydroxide/Mg Hydroxide 30 ml 09/07/22 03:49 09/07/22 04:09 Magnesium Hydrox/Alum Hydrox 30 Ml Oral.Susp PO 09/07/22 03:50 30 ml ONCE ONE Administration Famotidine 20 mg 09/07/22 03:49 09/07/22 04:08 Famotidine/Pf 20 Mg/2 Ml Vial IVPUSH 09/07/22 03:50 20 mg ONCE ONE Administration Sodium Chloride 1,000 mls @ 999 mls/hr 09/07/22 03:49 09/07/22 04:09 Ns IV 09/07/22 04:49 999 mls/hr .Q1H1M ONE Administration Potassium Chloride 10 meq in 100 mls @ 100 mls/hr 09/07/22 05:15 09/07/22 06:38 Potassium Chloride/H20 IV 09/07/22 07:14 100 mls/hr Q1H JM Administration Magnesium Sulfate 2 gm in 50 mls @ 100 mls/hr 09/07/22 05:29 09/07/22 06:50 Magnesium Sulfate/H2o IV 09/07/22 05:58 Infused ONCE ONE Infusion Lidocaine HCl 15 ml 09/07/22 03:49 09/07/22 04:09 Lidocaine Hcl Viscous 2 % 15 Ml Solution MUCOUS MEM 09/07/22 03:50 15 ml ONCE ONE Administration Morphine Sulfate 4 mg 09/07/22 05:29 09/07/22 06:15 Morphine Sulfate 4 Mg/Ml Cartridge IVPUSH 09/07/22 05:30 4 mg ONCE ONE Administration Protocol Ondansetron HCl 4 mg 09/07/22 05:30 09/07/22 06:15 Ondansetron Hcl 4 Mg/2 Ml Vial IVPUSH 09/07/22 05:31 4 mg ONCE ONE Administration Potassium Bicarbonate 50 meq 09/07/22 05:14 09/07/22 05:23 Potassium Bicarbonate/Cit Ac 25 Meq Tablet.Eff PO 09/07/22 05:15 50 meq ONCE ONE Administration Discharge Plan Discharge Clinical Impression: Abdominal pain, Acute hypokalemia, Hypomagnesemia Patient Disposition: Still a Patient Prescriptions: No Action atorvastatin 80 mg tablet 1 tab PO BEDTIME acetaminophen 325 mg Tablet 325 mg PO DAILY PRN (Reason: Pain) aspirin 81 mg tablet,delayed release (DR/EC) 1 tab PO DAILY metformin 1,000 mg tablet 1 tab PO BID pioglitazone 30 mg tablet 1 tab PO DAILY insulin lispro 100 unit/mL insulin pen See Protocol subcut TIDAC Protocol: Insulin Correction Scale Less than or equal to 110 ---- Give (units): 0 111 to 150 Give (units): 0 151 to 200 Give (units): 10 201 to 250 Give (units): 12 251 to 300 Give (units): 14 301 to 350 Give (units): 16 Greater than 350 Give (units): 18 Call MD if Blood Glucose > : 350 Rx Instructions: increase by 2 units per 50mg/dL insulin glargine [Lantus Solostar U-100 Insulin] 100 unit/mL (3 mL) insulin pen 30 unit subcut BEDTIME azithromycin 500 mg tablet 500 mg PO DAILY 4 Days Qty: 4 0RF cefuroxime axetil 500 mg tablet 500 mg PO BID Qty: 8 0RF ferrous sulfate 324 mg (65 mg iron) Tablet,Delayed Release (Dr/Ec) 324 mg PO DAILY Qty: 30 0RF lisinopril 5 mg Tablet 5 mg PO DAILY Qty: 30 0RF Protocol: Hold for SBP< HOLD for SBP < : 90
[2022-09-07] MEDS: Famotidine/PF 20 MG/2 ML VIAL IVPUSH (04:08)
[2022-09-07] MEDS: Magnesium Hydrox/Alum Hydrox 30 ML ORAL.SUSP PO (04:09)
[2022-09-07] MEDS: 0.9 % Sodium Chloride 1,000 ML 999 ML IV (04:09)
[2022-09-07] MEDS: Lidocaine HCl Viscous 2 % 15 ML SOLUTION MUCOUS MEM (04:09)
[2022-09-07 04:13] LABS: MANUAL DIFF FLAG NO
[2022-09-07 04:16] LABS: Basophils Percent Auto 0.4 % (0-2); Eosinophils Absolute Auto 0.2 X10*3/uL (0.0-0.4); Eosinophils Percent Auto 2.3 % (0-4); Hematocrit 27.4 % (37.0-47.0); Hemoglobin 9.5 g/dl (12.0-16.0); Imm Gran Abs Auto 0.01 X10*3/uL (0.00-0.03); Imm Gran Pct Auto 0.1 % (0.0-0.4); Lymphocytes Absolute Auto 3.5 X10*3/uL (1.2-4.9); Lymphocytes Percent Auto 47.6 % (20-40); Mean Corpuscular HGB Conc 34.7 g/dl (31.0-35.0); Mean Corpuscular Hemoglobin 28.3 pg (27.0-33.0); Mean Corpuscular Volume 81.5 fL (80.0-98.0); Mean Platelet Volume 8.6 fL (9.4-12.3); Monocytes Absolute Auto 0.5 X10*3/uL (0.1-1.2); Monocytes Percent Auto 6.8 % (2-11); Neutrophils Absolute Auto 3.2 x10*3/uL (2.0-8.3); Neutrophils Percent Auto 42.8 % (45-73); Platelet Count 153 X10*3/uL (160-400); Red Blood Count 3.36 X10*6/uL (4.20-5.50); Red Cell Distribution Width 13.4 % (11.0-16.0); White Blood Count 7.4 X10*3/uL (4.8-10.8)
[2022-09-07 04:39] LABS: Alanine Aminotransferase 9 U/L (0-31); Albumin Level 2.6 g/dL (3.5-5.0); Alkaline Phosphatase 51 U/L (39-117); Anion Gap 10 (12-20); Aspartate Amino Transferase 10 U/L (5-31); Bilirubin Total 0.3 mg/dL (0.0-1.0); Blood Urea Nitrogen 9 mg/dL (9-16); Carbon Dioxide 25 mmol/L (22-29); Chloride 109 mmol/L (96-108); Creatinine Clr Calc Pharmacy 117.6; Estimated Glomerular Filt Rate > 60; Glucose Random 163 mg/dL (60-115); Lipase 25 U/L (8-78); Potassium 2.5 mmol/L (3.3-5.1); Sodium 141 mmol/L (135-145); Total Protein 4.7 g/dL (6.5-8.0)
--- NOTE | 2022-09-07 04:39 | PC.NURSE ---
Critical result of K reported to 2.5 RN Odalis
--- NOTE | 2022-09-07 05:11 | PC.NURSE ---
with christen smith, pt cleaned and changed into new brief and hospital linens, purewick external catheter affixed for pt comfort, repositioned with blanket and pillows
[2022-09-07] MEDS: Potassium Chloride/H20 10 MEQ/100 ML PIGGYBACK 100 MEQ IV ×2 (05:15→06:38)
--- NOTE | 2022-09-07 05:15 | PC.NURSE ---
Pt used bathroom in brief. Gabby care and bed change completed. Pt ca&ox3. no signs of distress. Will continue monitor.
[2022-09-07 05:20] VITALS: BP 210/83; PULSE 88; RESP 17; TEMP 36.7; O2SAT 98
[2022-09-07] MEDS: Potassium Bicarbonate/Cit AC 25 MEQ TABLET.EFF 50 MEQ PO (05:23)
[2022-09-07 05:26] LABS: Magnesium 1.5 mg/dL (1.6-2.6)
--- NOTE | 2022-09-07 05:31 | PC.NURSE ---
Pt ca&ox3. Pt reports 4/10 abdominal pain. No signs of distress. Pt denies chest pain and sob. Pt medicated per jul. Pt b/p 220/82, provider aware.
[2022-09-07] MEDS: ondansetron HCL 4 MG/2 ML VIAL IVPUSH (06:15)
[2022-09-07] MEDS: Morphine Sulfate 4 MG/ML CARTRIDGE IVPUSH (06:15)
[2022-09-07] MEDS: Magnesium Sulfate/H2O 2 GM/50 ML PIGGYBACK IV (06:16)
[2022-09-07 06:40] VITALS: BP 167/66; PULSE 96; RESP 16; O2SAT 97
--- NOTE | 2022-09-07 07:13 | PC.NURSE ---
assumed care of this pt at 0700. pt currently sleeping, in no apparent distress. rr even/unlabored. wctm
[2022-09-07 08:00] VITALS: BP 175/70; PULSE 91; RESP 12; TEMP 36.7; O2SAT 98
--- NOTE | 2022-09-07 08:09 | PC.NURSE ---
ordered medications finished infusing, pt appears well. asking for food, tolerating po without issue.
[2022-09-07 08:41] LABS: Anion Gap 11 (12-20); Blood Urea Nitrogen 7 mg/dL (9-16); Calcium 8.5 mg/dL (8.4-10.2); Carbon Dioxide 27 mmol/L (22-29); Chloride 109 mmol/L (96-108); Creatinine Clr Calc Pharmacy 102.9; Estimated Glomerular Filt Rate > 60; Glucose Random 229 mg/dL (60-115); Sodium 142 mmol/L (135-145)
[2022-09-07 08:54] LABS: Potassium 4.5 mmol/L (3.3-5.1)
== END 2022-09-07 10:45 | disposition home or self-care (01) ==
PROVIDERS: Internal Medicine; Emergency Provider Emergency Medicine
DX: R10.2 Pelvic and perineal pain (principal); E87.6 Hypokalemia; E83.42 Hypomagnesemia; R94.31 Abnormal electrocardiogram [ECG] [EKG]; R10.13 Epigastric pain; Z79.899 Other long term (current) drug therapy
CPT/HCPCS: 36415; 80048; 80053; 83690; 83735; 85025; 93005; 96361; 96374; 96375; 99285; J2270; J2405; J3475

== ENCOUNTER 2022-09-14 13:12 | Inpatient (IN) | payer MEDICAID, SELFPAY ==
--- NOTE | ~2022-09-14 | CT_ITS ---
EXAMINATION: CT ABDOMEN AND PELVIS WITH CONTRAST CLINICAL INFORMATION: Abdominal pain COMPARISON: CT abdomen pelvis 06/12/2022 TECHNIQUE: Multidetector volumetric images were obtained from the superior aspect of the liver through the pubic symphysis following administration 85 mL of Omnipaque 350 intravenous contrast. Sagittal and coronal reformatted images were obtained on the technologist's workstation. Oral contrast: No This CT examination was performed using dose optimization techniques as appropriate, variously including the following: *Automated exposure control *Adjustment of mA and/or kV according to patient size (this includes techniques or standardized protocols for targeted exams where dose is matched to indication/reason for exam; i.e. extremities or head) *Use of iterative reconstruction technique DLP: 373 mGy-cm FINDINGS: LUNG BASES: Unremarkable. ABDOMINAL AND PELVIC WALL: Surgical clip in the ventral pelvic soft tissues. LIVER AND BILIARY TREE: Tiny hyperdense foci in the distal common bile duct measuring 2 mm. Common bile duct measures 7 mm which is within expected limits for the postcholecystectomy state. No intrahepatic biliary duct dilatation. Liver is enlarged measuring 19.5 cm in span. GALLBLADDER: Status post cholecystectomy. PANCREAS: Pancreas divisum. SPLEEN: Unremarkable. ADRENAL GLANDS: Unremarkable. KIDNEYS AND URETERS: Striated right renal nephrogram compatible with pyelonephritis. Right kidney is mildly asymmetrically atrophic. There is mild right sided urothelial enhancement. Mild proximal right hydroureteronephrosis to the level of the crossing gonadal vessels which may be causing some underlying stricture. No nephroureterolithiasis. GASTROINTESTINAL TRACT: Colonic diverticulosis without evidence of diverticulitis. Normal appendix. VASCULAR: Circumaortic left renal vein. LYMPH NODES/PERITONEUM: No lymphadenopathy. FREE FLUID: None. BLADDER: Unremarkable. PELVIC VISCERA: Unremarkable. OSSEOUS STRUCTURES: Stable wedge compression deformity of the L1 vertebral body with approximately 20% height loss. CT/CT abdomen pelvis w IV con IMPRESSION: Right-sided pyelonephritis with urothelial enhancement and mild right hydroureteronephrosis with the ureter dilated to the level of crossing gonadal vessels, which may be causing some underlying stricture. Right kidney is mildly asymmetrically atrophic. No obstructive nephroureterolithiasis. A 2 mm hyperdense focus in the distal common bile duct, possibly reflective of the common bile duct stone however a tiny enhancing lesion could appear similar appearance and recommend correlation with contrast enhanced MR/MRCP abdomen to exclude an intraductal mass. There is no resultant intra or extrahepatic biliary duct dilatation. Hepatomegaly. Pancreas divisum.
--- NOTE | ~2022-09-14 | MR_ITS ---
EXAMINATION: MR ABDOMEN WITHOUT CONTRAST CLINICAL INFORMATION: Intraductal mass COMPARISON: Previous CT of the abdomen and pelvis most recent June 2022 TECHNIQUE: MR abdomen is performed without gadolinium contrast. MRCP sequences were also performed. FINDINGS: LUNG BASES: The visualized lung bases are unremarkable. LIVER, GALLBLADDER, AND BILIARY TREE: The liver is upper normal in size. The liver is normal in shape and signal. No focal liver lesion. The gallbladder has been removed. There is no intra or extrahepatic biliary duct dilatation. The common bile duct measures 0.6-0.7 cm. There is a 3 x 4 mm low signal filling defect in the distal common bile duct. PANCREAS: The pancreas is normal in signal. The main pancreatic duct is normal. SPLEEN: Unremarkable. ADRENAL GLANDS: Unremarkable. KIDNEYS AND URETERS: The kidneys are normal in size and shape. No hydronephrosis. No perinephric stranding. GASTROINTESTINAL TRACT: No bowel obstruction. No ascites or fluid collection. ABDOMINAL WALL: No significant hernia is appreciated. LYMPH NODES: No lymphadenopathy. VASCULAR: Unremarkable. OSSEOUS STRUCTURES: Mild L1 vertebral body compression fracture. MR/MR MRCP IMPRESSION: No intra or extrahepatic biliary duct dilatation. 3 x 4 mm low signal filling defect in the distal common bile duct. This may represent sludge or small stone. Post cholecystectomy.
[2022-09-14 13:19] VITALS: BP 86/54; PULSE 98; O2SAT 100
--- NOTE | 2022-09-14 13:43 | ED_ITS ---
HPI - General Adult General Chief complaint: General Medical Stated complaint: HYPERGLYCEMIA Time Seen by Provider: 09/14/22 15:29 Source: patient and EMS Mode of arrival: EMS Limitations: no limitations History of Present Illness HPI narrative: 52-year-old female the past medical history of anemia, HLD, diabetes, presenting to the ED complaining of hyperglycemia POC 430 at [facility] & 415 via EMS. She states she has been compliant with her insulin regimen including Lantus and short-acting. She denies any polyuria or polydipsia. She states she has not needed anything today. She has no chest pain, abdominal pain, fever, chills. She denies urinary symptoms. She was recently admitted to the hospital for UTI, multifocal pneumonia and iron deficiency anemia. She is feeling well and has no physical complaints. MD complaint: hyperglycemia Onset (ago): unknown Relieving factors: none Exacerbating factors: none Associated symptoms: denies other symptoms Treatments prior to arrival: none Related Data Home Medications Medication Instructions Recorded Confirmed acetaminophen 325 mg tablet 325 mg PO DAILY PRN Pain 07/21/22 07/21/22 aspirin 81 mg tablet,delayed 1 tab PO DAILY 07/21/22 07/21/22 release atorvastatin 80 mg tablet 1 tab PO BEDTIME 07/21/22 07/21/22 insulin glargine 100 unit/mL (3 30 unit subcut BEDTIME 07/21/22 07/21/22 mL) subcutaneous pen (Lantus Solostar U-100 Insulin) insulin lispro 100 unit/mL See Protocol subcut TIDAC 07/21/22 07/21/22 subcutaneous pen metformin 1,000 mg tablet 1 tab PO BID 07/21/22 07/21/22 pioglitazone 30 mg tablet 1 tab PO DAILY 07/21/22 07/21/22 Previous Rx's Medication Instructions Recorded azithromycin 500 mg tablet 500 mg PO DAILY 4 days #4 tabs 07/24/22 cefuroxime axetil 500 mg tablet 500 mg PO BID #8 tabs 07/24/22 ferrous sulfate 324 mg (65 mg 324 mg PO DAILY #30 tabs 07/24/22 iron) tablet,delayed release lisinopril 5 mg tablet 5 mg PO DAILY #30 tabs 07/24/22 Allergies Allergy/AdvReac Type Severity Reaction Status Date / Time shrimp Allergy Swelling Verified 06/07/22 08:58 Review of Systems Review of Systems: Yes all other systems are reviewed and are negative [facility] Past Medical History Medical History Anemia Brain lesion Depression HLD (hyperlipidemia) Iron deficiency anemia Type 2 diabetes mellitus Family History Family History Other Hypertension Social History Social History Household Members: Family Housing: Apartment Do you presently have visiting nurse or other home services: Yes Alcohol intake: never Patient Tobacco Use Status: Never used Tobacco Smoked in Last 30 Days: No Use of substances other than those prescribed or required for medical reasons: No Advance Directives: Yes Advance Directives on File: Yes Advance Directives Date on File: 06/19/21 service: No Current occupational status: unemployed Physical Exam ED Vital Signs: Vital Signs - 24 hr 09/14/22 13:48 09/14/22 15:30 09/14/22 19:20 Temperature 97.3 F 97.6 F Pulse Rate 94 101 H 83 Respiratory Rate 18 18 16 Blood Pressure 173/87 H 194/95 H 170/79 H Pulse Oximetry 99 98 99 Oxygen Delivery Method Room Air Room Air Room Air 09/14/22 20:12 Temperature 97.6 F Pulse Rate 88 Respiratory Rate 16 Blood Pressure 169/89 H Pulse Oximetry 98 Oxygen Delivery Method Room Air BMI result Body Mass Index 20.2 Appearance: Alert. Oriented X3. Poorly kempt. Head: normocephalic, atraumatic. Eyes: Pupils equal, round and reactive to light. ENT: Pharynx normal. No tonsillar swelling or exudate. Poor dentition. Neck: Normal inspection. Neck supple. CVS: Normal heart rate and rhythm. Pulses normal. Respiratory: No respiratory distress. Breath sounds normal. Abdomen: Soft and nontender. +BS x4 Skin: Skin warm and dry. Normal skin color. Normal skin turgor. No rashes. Extremities: No lower extremity edema. No joint swelling. Dried feces on her right hand. Neuro/psych: Oriented X 3. No motor deficit. No sensory deficit. CN II-XII intact. Normal speech and cognition. Course Course Course Narrative: RME: 52-year-old female the past medical history of anemia, HLD, diabetes, pr esenting to the ED complaining of hyperglycemia POC 430 at [facility] & 415 via EMS. Took 18U this AM. Patient reports compliance with insulin however reports noncompliance with all other medications. Reports polydipsia and polyuria EKG, labs, UA ordered Full HPI, ROS and PE to be performed by primary ED provider. Reevaluation(s) Reevaluation #1: CBC with a normocytic anemia which appears to be around patient's baseline. Chemistry with no acute electrolyte abnormalities requiring intervention, blood glucose elevated however now normalized to 85. Lipase 159, will obtain CT as patient is now complaining of severe abdominal pain. Urine with infection. Patient clarifies that her abdominal pain is diffuse and radiates to bilateral flank region, patient is noted to have right-sided pyelonephritis with the Sarah early fill enhancement and mild right hydroureter nephrosis with ureter dilation at the level crusting gonadal vessels which could be causing stricture. 2 mm hyperdensity in the distal common bile duct possibly reflective of common bile duct stone however tiny enhancing lesion could appear similar recommend MRI MRCP discuss this with hospitalist hospitalist aware. Patient aware. Plan at this time blood cultures, lactic acid will give ceftriaxone admit to the hospital Time: 20:57 Medications Administered Discontinued Medications Generic Name Dose Route Start Last Admin Trade Name Freq PRN Reason Stop Dose Admin Sodium Chloride 1,000 mls @ 999 mls/hr 09/14/22 15:30 09/14/22 17:11 Ns IV 09/14/22 16:30 Infused .Q1H1M JM Infusion Sodium Chloride 1,000 mls @ 999 mls/hr 09/14/22 16:30 09/14/22 19:05 Ns IVCONT 09/14/22 17:30 Infused .Q1H1M JM Infusion Insulin Human Lispro 12 unit 09/14/22 15:28 09/14/22 15:48 Insulin Lispro 100 Unit/Ml 3 Ml Vial SUBCUT 09/14/22 15:29 12 unit ONCE ONE Administration Iohexol 100 ml 09/14/22 18:05 09/14/22 18:05 Iohexol 350 Mg/Ml 100 Ml Infus..Btl IV 09/14/22 18:06 85 ml ONCE ONE Administration Lisinopril 20 mg 09/14/22 16:29 09/14/22 16:37 Lisinopril 20 Mg Tablet PO 09/14/22 16:30 20 mg ONCE ONE Administration Protocol Morphine Sulfate 4 mg 09/14/22 17:05 09/14/22 17:12 Morphine Sulfate 4 Mg/Ml Cartridge IVPUSH 09/14/22 17:06 4 mg ONCE ONE Administration Protocol Medical Decision Making Medical Decision Making [facility] Narrative: 52-year-old female the past medical history of anemia, HLD, diabetes, presenting to the ED complaining of hyperglycemia POC 430 at [facility] & 415 via EMS. No evidence of anion gap metabolic acidosis. She was given 1 L of IV fluids and 12 units of subcu insulin Additional fluids have been ordered. Urinalysis is pending. She had a recent UTI. Will rule that out today. Her blood pressure is 190/95. She denies any history of hypertension in does not states she is on any antihypertensive medications. She denies any headache, chest pain, vision changes. Her last discharge summary was reviewed, she is not appear to be on any antihypertensive agents, however she was on lisinopril back in December of 2021. Given her hypertension today will treat with 20 mg of lisinopril and recheck her blood pressure. Will place patient physician observation at this time pending improvement in blood pressure and hyperglycemia. Differential Diagnosis Differential Diagnoses: The differential diagnosis associated with the presentation includes Diabetic hyperglycemia, medication noncompliance, acute infection, no evidence of an anion gap to suggest diabetic ketoacidosis or HHS. Admission/Observation Consideration of admission/observation: Escalation of care including admi ssion/observation considered Lab Data [facility] Lab Attestation statement: I reviewed the patient's lab results. Stable anemia, hyperglycemia without anion gap metabolic acidosis 09/14/22 14:25 09/14/22 14:25 Labs: Lab Results 09/14/22 09/14/22 09/14/22 Range/Units 14:25 14:25 15:36 WBC 6.8 (4.8-10.8) X10*3/uL RBC 3.99 L (4.20-5.50) X10*6/uL Hgb 11.1 L (12.0-16.0) g/dl Hct 32.7 L (37.0-47.0) % MCV 82.0 (80.0-98.0) fL MCH 27.8 (27.0-33.0) pg MCHC 33.9 (31.0-35.0) g/dl RDW 13.5 (11.0-16.0) % Plt Count 181 (160-400) X10*3/uL MPV 8.2 L (9.4-12.3) fL Immature Gran % (Auto) 0.3 (0.0-0.4) % Neut % (Auto) 56.0 (45-73) % Lymph % (Auto) 35.8 (20-40) % [place] % (Auto) 6.2 (2-11) % Eos % (Auto) 1.3 (0-4) % Baso % (Auto) 0.4 (0-2) % Lymph # (Auto) 2.4 (1.2-4.9) X10*3/uL [place] # (Auto) 0.4 (0.1-1.2) X10*3/uL Eos # (Auto) 0.1 (0.0-0.4) X10*3/uL Baso # (Auto) 0.0 (0.0-0.2) X10*3/uL Abs Immat Gran (auto) 0.02 (0.00-0.03) X10*3/uL Absolute Neuts (auto) 3.8 (2.0-8.3) x10*3/uL Absolute Nucleated RBC 0.000 (0.0-0.012) X10*3/uL Nucleated RBC % (auto) 0.0 (0.0-0.2) /100WBC Sodium 140 (135-145) mmol/L Potassium 4.0 (3.3-5.1) mmol/L Chloride 100 (96-108) mmol/L Carbon Dioxide 30 H (22-29) mmol/L Anion Gap 14 (12-20) BUN 11 (9-16) mg/dL Creatinine 0.83 (0.5-1.4) mg/dL Estim Creat Clear Calc 70.1 Estimated GFR > 60 POC Glucose 344 H (60-115) mg/dL Random Glucose 408 H* (60-115) mg/dL Calcium 9.7 D (8.4-10.2) mg/dL Magnesium 2.0 (1.6-2.6) mg/dL Total Bilirubin 0.4 (0.0-1.0) mg/dL Direct Bilirubin 0.1 (0.0-0.5) mg/dL AST 12 (5-31) U/L ALT 11 (0-31) U/L Alkaline Phosphatase 73 (39-117) U/L Total Protein 7.1 (6.5-8.0) g/dL Albumin 3.8 (3.5-5.0) g/dL Lipase 159 H (8-78) U/L Urine Color Urine Appearance Urine pH (5.0-9.0) Ur Specific Bruce (1.005-1.025) Urine Protein (Neg-Trace) mg/dL Urine Glucose (UA) (Negative) mg/dL Urine Ketones (Negative) mg/dL Urine Blood (Negative) Urine Nitrite (Negative) Ur Leukocyte Esterase (Negative) Urine RBC (0-2) /HPF Urine WBC (0-5) /HPF Ur Squamous Epith Cells (0-2) /HPF Urine Bacteria (None Seen) Hyaline Casts (0-2) /LPF Acetone, Qual Negative (Negative) 09/14/22 09/14/22 09/14/22 Range/Units 16:20 16:22 19:19 WBC (4.8-10.8) X10*3/uL RBC (4.20-5.50) X10*6/uL Hgb (12.0-16.0) g/dl Hct (37.0-47.0) % MCV (80.0-98.0) fL MCH (27.0-33.0) pg MCHC (31.0-35.0) g/dl RDW (11.0-16.0) % Plt Count (160-400) X10*3/uL MPV (9.4-12.3) fL Immature Gran % (Auto) (0.0-0.4) % Neut % (Auto) (45-73) % Lymph % (Auto) (20-40) % [place] % (Auto) (2-11) % Eos % (Auto) (0-4) % Baso % (Auto) (0-2) % Lymph # (Auto) (1.2-4.9) X10*3/uL [place] # (Auto) (0.1-1.2) X10*3/uL Eos # (Auto) (0.0-0.4) X10*3/uL Baso # (Auto) (0.0-0.2) X10*3/uL Abs Immat Gran (auto) (0.00-0.03) X10*3/uL Absolute Neuts (auto) (2.0-8.3) x10*3/uL Absolute Nucleated RBC (0.0-0.012) X10*3/uL Nucleated RBC % (auto) (0.0-0.2) /100WBC Sodium (135-145) mmol/L Potassium (3.3-5.1) mmol/L Chloride (96-108) mmol/L Carbon Dioxide (22-29) mmol/L Anion Gap (12-20) BUN (9-16) mg/dL Creatinine (0.5-1.4) mg/dL Estim Creat Clear Calc Estimated GFR POC Glucose 311 H 85 (60-115) mg/dL Random Glucose (60-115) mg/dL Calcium (8.4-10.2) mg/dL Magnesium (1.6-2.6) mg/dL Total Bilirubin (0.0-1.0) mg/dL Direct Bilirubin (0.0-0.5) mg/dL AST (5-31) U/L ALT (0-31) U/L Alkaline Phosphatase (39-117) U/L Total Protein (6.5-8.0) g/dL Albumin (3.5-5.0) g/dL Lipase (8-78) U/L Urine Color Yellow Urine Appearance Cloudy Urine pH 6.5 (5.0-9.0) Ur Specific Bruce 1.025 (1.005-1.025) Urine Protein 300 (3+) H (Neg-Trace) mg/dL Urine Glucose (UA) >=1000 H (Negative) mg/dL Urine Ketones Negative (Negative) mg/dL Urine Blood Small (1+) H (Negative) Urine Nitrite Negative (Negative) Ur Leukocyte Esterase Small (1+) H (Negative) Urine RBC >20 H (0-2) /HPF Urine WBC 11-20 H (0-5) /HPF Ur Squamous Epith Cells 6-10 (0-2) /HPF Urine Bacteria 2+ (None Seen) Hyaline Casts 3-5 (0-2) /LPF Acetone, Qual (Negative) Independent Interpretation I performed an independent interpretation of an: EKG and CT Scan (CT/CT abdomen pelvis w IV con IMPRESSION: Right-sided pyelonephritis with urothelial enhancement and mild right hydroureteronephrosis with the ureter dilated to the level of crossing gonadal vessels, which may be causing some underlying stricture. Right kidney is mildly asymmetrically atrophic. No) Interpretation: EKG with normal sinus rhythm, ventricular rate 93 beats per minute, normal MO interval, no ST segment elevations or depressions. Independent Historian Clinical information obtained from an independent historian. History obtained from or confirmed by: EMS External Record Review External record reviewed: Inpatient record, Office record, Outpatient record, Prior outpatient labs and Prior outpatient radiology Prescription Management I considered prescription management with: Other (insulin) Chronic Conditions Patient?s care impacted by: Diabetes and Hypertension Critical Care Time Critical Care Time Critical Care Time: Yes Total Critical Care Time: 35 Attestation: I have personally provided critical care time exclusive of time spent on separately billable procedures. Time includes review of lab data, radiology results, discussion with consultants, and monitoring for potential decompensation. Intervention performed as documented. Discharge Plan Discharge Clinical Impression: Hyperglycemia, Hypertension, Pyelonephritis Patient Disposition: Still a Patient Prescriptions: No Action atorvastatin 80 mg tablet 1 tab PO BEDTIME acetaminophen 325 mg Tablet 325 mg PO DAILY PRN (Reason: Pain) aspirin 81 mg tablet,delayed release (DR/EC) 1 tab PO DAILY metformin 1,000 mg tablet 1 tab PO BID pioglitazone 30 mg tablet 1 tab PO DAILY insulin lispro 100 unit/mL insulin pen See Protocol subcut TIDA Protocol: Insulin Correction Scale Less than or equal to 110 ---- Give (units): 0 111 to 150 Give (units): 0 151 to 200 Give (units): 10 201 to 250 Give (units): 12 251 to 300 Give (units): 14 301 to 350 Give (units): 16 Greater than 350 Give (units): 18 Call MD if Blood Glucose > : 350 Rx Instructions: increase by 2 units per 50mg/dL insulin glargine [Lantus Solostar U-100 Insulin] 100 unit/mL (3 mL) insulin pen 30 unit subcut BEDTIME azithromycin 500 mg tablet 500 mg PO DAILY 4 Days Qty: 4 0RF cefuroxime axetil 500 mg tablet 500 mg PO BID Qty: 8 0RF ferrous sulfate 324 mg (65 mg iron) Tablet,Delayed Release (Dr/Ec) 324 mg PO DAILY Qty: 30 0RF lisinopril 5 mg Tablet 5 mg PO DAILY Qty: 30 0RF Protocol: Hold for SBP< HOLD for SBP < : 90
[2022-09-14 13:48] VITALS: BP 173/87; PULSE 94; RESP 18; TEMP 36.3; O2SAT 99; BMI 20.2
--- NOTE | 2022-09-14 13:48 | ECG_ITS ---
Test Reason : hyperglycemic Blood Pressure : / mmHG Vent. Rate : 093 BPM Atrial Rate : 093 BPM P-R Int : 126 ms QRS Dur : 070 ms QT Int : 346 ms P-R-T Axes : 052 017 041 degrees QTc Int : 430 ms Normal sinus rhythm Septal infarct , age undetermined Nonspecific ST and T wave abnormality Abnormal ECG When compared with ECG of 07-SEP-2022 04:52, Septal infarct is now Present Referred By: Penny Bowens Electronically Signed By:SHANTI AVENDANO
[2022-09-14 14:32] LABS: MANUAL DIFF FLAG NO
[2022-09-14 14:34] LABS: Basophils Percent Auto 0.4 % (0-2); Eosinophils Absolute Auto 0.1 X10*3/uL (0.0-0.4); Eosinophils Percent Auto 1.3 % (0-4); Hematocrit 32.7 % (37.0-47.0); Hemoglobin 11.1 g/dl (12.0-16.0); Imm Gran Abs Auto 0.02 X10*3/uL (0.00-0.03); Imm Gran Pct Auto 0.3 % (0.0-0.4); Lymphocytes Absolute Auto 2.4 X10*3/uL (1.2-4.9); Lymphocytes Percent Auto 35.8 % (20-40); Mean Corpuscular HGB Conc 33.9 g/dl (31.0-35.0); Mean Corpuscular Hemoglobin 27.8 pg (27.0-33.0); Mean Platelet Volume 8.2 fL (9.4-12.3); Monocytes Absolute Auto 0.4 X10*3/uL (0.1-1.2); Monocytes Percent Auto 6.2 % (2-11); Neutrophils Absolute Auto 3.8 x10*3/uL (2.0-8.3); Platelet Count 181 X10*3/uL (160-400); Red Blood Count 3.99 X10*6/uL (4.20-5.50); Red Cell Distribution Width 13.5 % (11.0-16.0); White Blood Count 6.8 X10*3/uL (4.8-10.8)
[2022-09-14 15:11] LABS: Alanine Aminotransferase 11 U/L (0-31); Albumin Level 3.8 g/dL (3.5-5.0); Alkaline Phosphatase 73 U/L (39-117); Anion Gap 14 (12-20); Aspartate Amino Transferase 12 U/L (5-31); Bilirubin Direct 0.1 mg/dL (0.0-0.5); Bilirubin Total 0.4 mg/dL (0.0-1.0); Blood Urea Nitrogen 11 mg/dL (9-16); Calcium 9.7 mg/dL (8.4-10.2); Carbon Dioxide 30 mmol/L (22-29); Chloride 100 mmol/L (96-108); Creatinine Clr Calc Pharmacy 70.1; Estimated Glomerular Filt Rate > 60; Glucose Random 408 mg/dL (60-115); Sodium 140 mmol/L (135-145); Total Protein 7.1 g/dL (6.5-8.0)
[2022-09-14 15:30] VITALS: BP 194/95; PULSE 101; RESP 18; TEMP 36.4; O2SAT 98
[2022-09-14 15:39] LABS: Glucose, Whole Blood 344 mg/dL (60-115)
[2022-09-14] MEDS: 0.9 % Sodium Chloride 1,000 ML 999 ML IV ×2 (15:47→20:57)
[2022-09-14] MEDS: Insulin Lispro 100 UNIT/ML 3 ML VIAL 12 UNIT SUBCUT (15:48)
--- NOTE | 2022-09-14 15:49 | PC.NURSE ---
pt hypertensive, PA aware. fluids and insulin given per mar
[2022-09-14 16:28] LABS: Glucose, Whole Blood 311 mg/dL (60-115)
[2022-09-14 16:28] LABS: Appearance Urine Cloudy; Color Urine Yellow; Glucose Urine UA >=1000 mg/dL (Negative); Leukocyte Esterase Urine Small (1+) (Negative); Nitrite Urine Negative (Negative); PH 6.5 (5.0-9.0); Specific Gravity - Urine 1.025 (1.005-1.025); UMIC TRIGGER UACC YES; Urine Blood Small (1+) (Negative); Urine Ketones Negative (Negative); Urine Protein 300 (3+) mg/dL (Neg-Trace)
[2022-09-14 16:34] LABS: Acetone, serum QL Negative (Negative)
[2022-09-14] MEDS: 0.9 % Sodium Chloride 1,000 ML 999 ML IVCONT (16:37)
[2022-09-14] MEDS: lisinopriL 20 MG TABLET PO (16:37)
[2022-09-14 16:41] LABS: Bacteria Urine 2+ (None Seen); RBC Urine >20 /HPF (0-2); UACC Culture Trigger YES
[2022-09-14] MEDS: Morphine Sulfate 4 MG/ML CARTRIDGE IVPUSH (17:12)
--- NOTE | 2022-09-14 17:14 | PC.NURSE ---
pt reporting sig abdomnial pain and is in teas. PA ordered morphine and CT scan. pt medicated per MAR
[2022-09-14 17:41] LABS: Lipase 159 U/L (8-78)
[2022-09-14] MEDS: iohexoL 350 MG/ML 100 ML INFUS..BTL IV (18:05)
[2022-09-14 19:20] VITALS: BP 170/79; PULSE 83; RESP 16; O2SAT 99
--- NOTE | 2022-09-14 19:21 | PC.NURSE ---
pt BP 170/79. POC 85. PA aware. Pt reports no pain
[2022-09-14 19:25] LABS: Glucose, Whole Blood 85 mg/dL (60-115)
[2022-09-14 20:12] VITALS: BP 169/89; PULSE 88; RESP 16; TEMP 36.4; O2SAT 98
[2022-09-14 20:59] LABS: Glucose, Whole Blood 101 mg/dL (60-115)
--- NOTE | 2022-09-14 21:25 | PHA.MEDREC ---
Pharmacy Consult ? Medication Reconciliation Patient confirmed medications. Patient states chnege on lantus to 18 units at bedtime . Pharmacy has completed the medication reconciliation.
[2022-09-14] MEDS: cefTRIAXone sodium 1 GM in 0.9 % Sodium Chloride 50 ML IV (21:27)
--- NOTE | 2022-09-14 21:27 | PM.IMHP ---
History of Present Illness Date of Service: 09/14/22 Chief Complaint: Abdominal Pain This is a 52-year-old male with pertinent history of mood disorder, insulin-dependent diabetes, mixed hyperlipidemia who presents to the emergency department for evaluation of right-sided abdominal pain.? Patient states she has been having right flank pain that started 2 days prior to presentation and radiating to the groin. Also has been having urinary urgency. No fever but admits chills. Patient states that she is doing better to be compliant with the medications. Also takes her insulin on time. Patient states her abdominal discomfort has been constant and without any relieving factors. She denies chest discomfort, palpitations, shortness breath, changes in bowel habits In the emergency department, imaging with right-sided pyelonephritis. Review of Systems Constitutional: Constitutional: Reports fatigue Cardiovascular: Cardiovascular: Reports no additional cardiovascular complaints Respiratory: Respiratory: Reports no additional respiratory complaints Gastrointestinal: Gastrointestinal: Reports abdominal pain Genitourinary: Genitourinary: Reports urinary urgency Endocrine: Endocrine: Reports fatigue [facility] Medical History Anemia Brain lesion Depression HLD (hyperlipidemia) Iron deficiency anemia Type 2 diabetes mellitus Family History Other Hypertension Social History Household Members: Family Housing: Apartment Do you presently have visiting nurse or other home services: Yes Alcohol intake: never Patient Tobacco Use Status: Never used Tobacco Smoked in Last 30 Days: No Use of substances other than those prescribed or required for medical reasons: No Advance Directives: Yes Advance Directives on File: Yes Advance Directives Date on File: 06/19/21 Nutrition Risks: No Nutritional Risk service: No Current occupational status: unemployed Meds Allergies Allergy/AdvReac Type Severity Reaction Status Date / Time shrimp Allergy Swelling Verified 06/07/22 08:58 Active Medications: Current Medications Acetaminophen (Acetaminophen 325 Mg Tablet) 650 mg PO Q6H PRN PRN Reason: Pain, Mild (Pain Scale 1-3) Enoxaparin Sodium (Enoxaparin Sodium 40 Mg/0.4 Ml Syringe) 40 mg SUBCUT Q24H JM Glucose (Glucose Gel 15 Gm Gel..Gram.) 15 gm PO Q15M PRN; Protocol PRN Reason: per Hypoglycemia Standing Ord. Sodium Chloride (Ns) 1,000 mls @ 999 mls/hr IV .Q1H1M [facility] Stop: 09/14/22 22:00 Last Admin: 09/14/22 20:57 Dose: 999 mls/hr Dextrose (D10) 250 mls @ 750 mls/hr IV Q15M PRN; Protocol PRN Reason: per Hypoglycemia Standing Ord. Ceftriaxone Sodium 1 gm/ (Sodium Chloride) 50 mls @ 100 mls/hr IV Q24H [facility] Insulin Glargine (Insulin Glargine,Hum.Rec.Anlog 100 Unit/Ml 10 Ml Vial) 25 unit SUBCUT BEDTIME [facility] Insulin Human Lispro (Insulin Lispro 100 Unit/Ml 3 Ml Vial) 0 unit SUBCUT QIDACHS [facility]; Protocol Melatonin (Melatonin 3 Mg Tablet) 6 mg PO BEDTIME PRN PRN Reason: Insomnia Ondansetron HCl (Ondansetron Hcl 4 Mg/2 Ml Vial) 4 mg IVPUSH Q8H PRN PRN Reason: Nausea and Vomiting Pharmacy Consult (Consult Rx Perform Med Rec) 1 each MISCELLANE ONCE PRN PRN Reason: Consult order Sodium Chloride (0.9 % Sodium Chloride Flush 3 Ml Syringe) 3 ml IVFLUSH QSHIFT [facility] Home Medications Medication Instructions Recorded Confirmed Last Taken Type aspirin 81 mg tablet,delayed 1 tab PO DAILY 07/21/22 09/14/22 07/21/22 History release atorvastatin 80 mg tablet 1 tab PO BEDTIME 07/21/22 09/14/22 Unknown History insulin glargine 100 unit/mL (3 18 unit subcut BEDTIME 07/21/22 09/14/22 Unknown History mL) subcutaneous pen (Lantus Solostar U-100 Insulin) insulin lispro 100 unit/mL See Protocol subcut TIDAC 07/21/22 09/14/22 Unknown History subcutaneous pen metformin 1,000 mg tablet 1 tab PO BID 07/21/22 09/14/22 07/21/22 History pioglitazone 30 mg tablet 1 tab PO DAILY 07/21/22 09/14/22 07/21/22 History Physical Exam Vital Signs and Narrative: Vital Signs: Last Vital Signs Temp 97.6 F 09/14/22 20:12 Pulse 88 09/14/22 20:12 Resp 16 09/14/22 20:12 BP 169/89 H 09/14/22 20:12 Pulse Ox 98 09/14/22 20:12 O2 Del Method Room Air 09/14/22 20:12 BMI result Body Mass Index 20.2 Middle-aged female lying in bed in no distress Neck supple, no JVD Regular rate with regular rhythm, S1-S2 heard Regular breath sounds bilaterally, no wheezing or crackles appreciated Abdomen with right-sided CVA tenderness, no guarding, no rigidity, no rebound tenderness Patient is awake, alert and oriented to self ; no focal motor deficit Psych: Normal mood No pedal edema Results Labs 09/14/22 14:25 09/14/22 14:25 Labs: Laboratory Results - last 24 hr 09/14/22 09/14/22 09/14/22 14:25 14:25 15:36 MCV 82.0 MCH 27.8 MCHC 33.9 RDW 13.5 Plt Count 181 MPV 8.2 L Immature Gran % (Auto) 0.3 Neut % (Auto) 56.0 Lymph % (Auto) 35.8 [place] % (Auto) 6.2 Eos % (Auto) 1.3 Baso % (Auto) 0.4 Lymph # (Auto) 2.4 [place] # (Auto) 0.4 Eos # (Auto) 0.1 Baso # (Auto) 0.0 Abs Immat Gran (auto) 0.02 Absolute Neuts (auto) 3.8 Absolute Nucleated RBC 0.000 Nucleated RBC % (auto) 0.0 Anion Gap 14 Estim Creat Clear Calc 70.1 Estimated GFR > 60 POC Glucose 344 H Random Glucose 408 H* Calcium 9.7 D Magnesium 2.0 Total Bilirubin 0.4 Direct Bilirubin 0.1 AST 12 ALT 11 Alkaline Phosphatase 73 Total Protein 7.1 Albumin 3.8 Lipase 159 H Urine Color Urine Appearance Urine pH Ur Specific [place] Urine Protein Urine Glucose (UA) Urine Ketones Urine Blood Urine Nitrite Ur Leukocyte Esterase Urine RBC Urine WBC Ur Squamous Epith Cells Urine Bacteria Hyaline Casts Acetone, Qual Negative 09/14/22 09/14/22 09/14/22 16:20 16:22 19:19 MCV MCH MCHC RDW Plt Count MPV Immature Gran % (Auto) Neut % (Auto) Lymph % (Auto) [place] % (Auto) Eos % (Auto) Baso % (Auto) Lymph # (Auto) [place] # (Auto) Eos # (Auto) Baso # (Auto) Abs Immat Gran (auto) Absolute Neuts (auto) Absolute Nucleated RBC Nucleated RBC % (auto) Anion Gap Estim Creat Clear Calc Estimated GFR POC Glucose 311 H 85 Random Glucose Calcium Magnesium Total Bilirubin Direct Bilirubin AST ALT Alkaline Phosphatase Total Protein Albumin Lipase Urine Color Yellow Urine Appearance Cloudy Urine pH 6.5 Ur Specific [place] 1.025 Urine Protein 300 (3+) H Urine Glucose (UA) >=1000 H Urine Ketones Negative Urine Blood Small (1+) H Urine Nitrite Negative Ur Leukocyte Esterase Small (1+) H Urine RBC >20 H Urine WBC 11-20 H Ur Squamous Epith Cells 6-10 Urine Bacteria 2+ Hyaline Casts 3-5 Acetone, Qual 09/14/22 20:54 MCV MCH MCHC RDW Plt Count MPV Immature Gran % (Auto) Neut % (Auto) Lymph % (Auto) [place] % (Auto) Eos % (Auto) Baso % (Auto) Lymph # (Auto) [place] # (Auto) Eos # (Auto) Baso # (Auto) Abs Immat Gran (auto) Absolute Neuts (auto) Absolute Nucleated RBC Nucleated RBC % (auto) Anion Gap Estim Creat Clear Calc Estimated GFR POC Glucose 101 Random Glucose Calcium Magnesium Total Bilirubin Direct Bilirubin AST ALT Alkaline Phosphatase Total Protein Albumin Lipase Urine Color Urine Appearance Urine pH Ur Specific [place] Urine Protein Urine Glucose (UA) Urine Ketones Urine Blood Urine Nitrite Ur Leukocyte Esterase Urine RBC Urine WBC Ur Squamous Epith Cells Urine Bacteria Hyaline Casts Acetone, Qual Imaging Radiologist's Impressions: Impressions Abdomen/Pelvis CT 09/14/22 18:09 IMPRESSION: Right-sided pyelonephritis with urothelial enhancement and mild right hydroureteronephrosis with the ureter dilated to the level of crossing gonadal vessels, which may be causing some underlying stricture. Right kidney is mildly asymmetrically atrophic. No obstructive nephroureterolithiasis. A 2 mm hyperdense focus in the distal common bile duct, possibly reflective of the common bile duct stone however a tiny enhancing lesion could appear similar appearance and recommend correlation with contrast enhanced MR/MRCP abdomen to exclude an intraductal mass. There is no resultant intra or extrahepatic biliary duct dilatation. Hepatomegaly. Pancreas divisum. Assessment and Plan (1) Pyelonephritis: Status: Acute Plan This is a 52-year-old male with pertinent history of mood disorder, insulin-dependent diabetes, mixed hyperlipidemia who presents to the emergency department for evaluation of right-sided abdominal pain. #.? Acute right-sided pyelonephritis:? Patient resuscitated with IV crystalloids in the ER.? Continue empiric IV Rocephin.? Lactic acid and blood culture obtained.? Follow urine culture #. Imaging with hyperdense focus in common bile duct: Will order MRCP to delineate the anatomy #.? Insulin-dependent diabetes mellitus 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:? Due to noncompliance with antihyperglycemics.? Initiating basal plus regimen. #.? Mixed hyperlipidemia: On statin DVT prophylaxis:? Lovenox 40 mg daily Full code Diabetic diet Admit as inpatient and will require two night minimum hospital stay for IV antibiotics Time Spent With Patient Time: Total time managing care of this patient today ____ minutes. Quality Stroke Does the patient have a stroke diagnosis?: No VTE Prior VTE?: No VTE Risk Level:: Medical - moderate - high VTE Device Contraindication: Treatment Not Indicated VTE Drug Contraindication: N/A - Med Ordered
[2022-09-14 21:30] LABS: Lactic Acid 1.3 mmol/L (0.5-2.0)
[2022-09-14] MEDS: Insulin Glargine,Hum.rec.anlog 100 UNIT/ML 10 ML VIAL 25 UNIT SUBCUT (21:40)
--- NOTE | 2022-09-14 21:45 | PC.NURSE ---
This advertising writer assumed care of this Pt at 2100. Pt A&Ox4, denies any pain. IV fluids running as ordered. Insulin given as documented. Per Dr. Douglass 15 units of additional lantus not to be given today. Pt denies any burning/ pain with urination.
--- NOTE | 2022-09-14 22:17 | PC.NURSE ---
RN to RN report given to Melissa, Pt will be transported to room 469. Pt aware of plan.
[2022-09-14 22:44] VITALS: BP 168/66; PULSE 89; RESP 18; TEMP 37; O2SAT 97
[2022-09-14 22:44] LABS: Glucose, Whole Blood 104 mg/dL (60-115)
[2022-09-15] MEDS: Acetaminophen 325 MG TABLET 650 MG PO ×2 (02:03→20:37)
[2022-09-15 04:03] VITALS: BP 180/78; PULSE 89; RESP 15; TEMP 36.5; O2SAT 96
[2022-09-15 07:02] LABS: MANUAL DIFF FLAG NO
[2022-09-15 07:07] LABS: Basophils Percent Auto 0.4 % (0-2); Eosinophils Absolute Auto 0.2 X10*3/uL (0.0-0.4); Eosinophils Percent Auto 2.4 % (0-4); Hematocrit 27.6 % (37.0-47.0); Hemoglobin 9.2 g/dl (12.0-16.0); Imm Gran Abs Auto 0.01 X10*3/uL (0.00-0.03); Imm Gran Pct Auto 0.1 % (0.0-0.4); Lymphocytes Absolute Auto 3.8 X10*3/uL (1.2-4.9); Lymphocytes Percent Auto 53.1 % (20-40); Mean Corpuscular HGB Conc 33.3 g/dl (31.0-35.0); Mean Corpuscular Volume 83.9 fL (80.0-98.0); Mean Platelet Volume 8.7 fL (9.4-12.3); Monocytes Absolute Auto 0.5 X10*3/uL (0.1-1.2); Monocytes Percent Auto 6.4 % (2-11); Neutrophils Absolute Auto 2.7 x10*3/uL (2.0-8.3); Neutrophils Percent Auto 37.6 % (45-73); Platelet Count 167 X10*3/uL (160-400); Red Blood Count 3.29 X10*6/uL (4.20-5.50); Red Cell Distribution Width 13.6 % (11.0-16.0); White Blood Count 7.2 X10*3/uL (4.8-10.8)
[2022-09-15 07:25] LABS: Anion Gap 8 (12-20); Blood Urea Nitrogen 11 mg/dL (9-16); Calcium 8.9 mg/dL (8.4-10.2); Carbon Dioxide 31 mmol/L (22-29); Chloride 109 mmol/L (96-108); Creatinine Clr Calc Pharmacy 83.1; Estimated Glomerular Filt Rate > 60; Glucose Random 121 mg/dL (60-115); Potassium 3.7 mmol/L (3.3-5.1); Sodium 144 mmol/L (135-145)
[2022-09-15 07:35] VITALS: BP 161/79; PULSE 85; RESP 18; TEMP 36.6; O2SAT 99
[2022-09-15 07:39] LABS: Glucose, Whole Blood 124 mg/dL (60-115)
--- NOTE | 2022-09-15 09:14 | P.PNIM_ITS ---
Subjective Subjective Date of Service: 09/15/22 Interval History: no complaints Physical Exam Vital Signs: Vital Signs: Last Vital Signs Temp 98 F 09/15/22 07:35 Pulse 85 09/15/22 07:35 Resp 18 09/15/22 07:35 BP 161/79 H 09/15/22 07:35 Pulse Ox 99 09/15/22 07:35 O2 Del Method Room Air 09/15/22 07:35 BMI result Body Mass Index 20.2 abd soft, non tender Objective Data Active Medications Acetaminophen (Acetaminophen 325 Mg Tablet) 650 mg PO Q6H PRN PRN Reason: Pain, Mild (Pain Scale 1-3) Last Admin: 09/15/22 02:03 Dose: 650 mg Documented By: VINCE Aspirin (Aspirin Enteric Coated 81 Mg Tablet.Dr) 81 mg PO DAILY JM Atorvastatin Calcium (Atorvastatin Calcium 80 Mg Tablet) 80 mg PO BEDTIME JM Enoxaparin Sodium (Enoxaparin Sodium 40 Mg/0.4 Ml Syringe) 40 mg SUBCUT Q24H COUNT INCLUDES THE [facility] Last Admin: 09/14/22 21:41 Dose: Not Given Documented By: LUMA Non-Admin Reason: Patient Refused Glucose (Glucose Gel 15 Gm Gel..Gram.) 15 gm PO Q15M PRN; Protocol PRN Reason: per Hypoglycemia Standing Ord. Dextrose (D10) 250 mls @ 750 mls/hr IV Q15M PRN; Protocol PRN Reason: per Hypoglycemia Standing Ord. Ceftriaxone Sodium 1 gm/ (Sodium Chloride) 50 mls @ 100 mls/hr IV Q24H COUNT INCLUDES THE [facility] Insulin Glargine (Insulin Glargine,Hum.Rec.Anlog 100 Unit/Ml 10 Ml Vial) 15 unit SUBCUT BEDTIME COUNT [facility]CLUDES [facility] Last Admin: 09/14/22 22:09 Dose: Not Given Documented By: LUMA Non-Admin Reason: Physician Approved Insulin Human Lispro (Insulin Lispro 100 Unit/Ml 3 Ml Vial) 0 unit SUBCUT QIDACHS COUNT [facility]CLUDES THE [facility]; Protocol Last Admin: 09/15/22 07:40 Dose: Not Given Documented By: TARUN Non-Admin Reason: No Insulin Coverage Melatonin (Melatonin 3 Mg Tablet) 6 mg PO BEDTIME PRN PRN Reason: Insomnia Ondansetron HCl (Ondansetron Hcl 4 Mg/2 Ml Vial) 4 mg IVPUSH Q8H PRN PRN Reason: Nausea and Vomiting Pharmacy Consult (Consult Rx Perform Med Rec) 1 each MISCELLANE ONCE PRN PRN Reason: Consult order Sodium Chloride (0.9 % Sodium Chloride Flush 3 Ml Syringe) 3 ml IVFLUSH QSHIFT COUNT [facility]CLUDES [facility] Last Admin: 09/14/22 23:15 Dose: Not Given Documented By: VINCE Non-Admin Reason: Previously Administered Labs 09/15/22 06:24 09/15/22 06:24 Labs: Laboratory Results - last 24 hr 09/14/22 09/14/22 09/14/22 14:25 14:25 15:36 MCV 82.0 MCH 27.8 MCHC 33.9 RDW 13.5 Plt Count 181 MPV 8.2 L Immature Gran % (Auto) 0.3 Neut % (Auto) 56.0 Lymph % (Auto) 35.8 [place] % (Auto) 6.2 Eos % (Auto) 1.3 Baso % (Auto) 0.4 Lymph # (Auto) 2.4 [place] # (Auto) 0.4 Eos # (Auto) 0.1 Baso # (Auto) 0.0 Abs Immat Gran (auto) 0.02 Absolute Neuts (auto) 3.8 Absolute Nucleated RBC 0.000 Nucleated RBC % (auto) 0.0 Anion Gap 14 Estim Creat Clear Calc 70.1 Estimated GFR > 60 POC Glucose 344 H Random Glucose 408 H* Lactic Acid Calcium 9.7 D Magnesium 2.0 Total Bilirubin 0.4 Direct Bilirubin 0.1 AST 12 ALT 11 Alkaline Phosphatase 73 Total Protein 7.1 Albumin 3.8 Lipase 159 H Urine Color Urine Appearance Urine pH Ur Specific [place] Urine Protein Urine Glucose (UA) Urine Ketones Urine Blood Urine Nitrite Ur Leukocyte Esterase Urine RBC Urine WBC Ur Squamous Epith Cells Urine Bacteria Hyaline Casts Acetone, Qual Negative 09/14/22 09/14/22 09/14/22 16:20 16:22 19:19 MCV MCH MCHC RDW Plt Count MPV Immature Gran % (Auto) Neut % (Auto) Lymph % (Auto) [place] % (Auto) Eos % (Auto) Baso % (Auto) Lymph # (Auto) [place] # (Auto) Eos # (Auto) Baso # (Auto) Abs Immat Gran (auto) Absolute Neuts (auto) Absolute Nucleated RBC Nucleated RBC % (auto) Anion Gap Estim Creat Clear Calc Estimated GFR POC Glucose 311 H 85 Random Glucose Lactic Acid Calcium Magnesium Total Bilirubin Direct Bilirubin AST ALT Alkaline Phosphatase Total Protein Albumin Lipase Urine Color Yellow Urine Appearance Cloudy Urine pH 6.5 Ur Specific [place] 1.025 Urine Protein 300 (3+) H Urine Glucose (UA) >=1000 H Urine Ketones Negative Urine Blood Small (1+) H Urine Nitrite Negative Ur Leukocyte Esterase Small (1+) H Urine RBC >20 H Urine WBC 11-20 H Ur Squamous Epith Cells 6-10 Urine Bacteria 2+ Hyaline Casts 3-5 Acetone, Qual 09/14/22 09/14/22 09/14/22 20:54 21:11 22:37 MCV MCH MCHC RDW Plt Count MPV Immature Gran % (Auto) Neut % (Auto) Lymph % (Auto) [place] % (Auto) Eos % (Auto) Baso % (Auto) Lymph # (Auto) [place] # (Auto) Eos # (Auto) Baso # (Auto) Abs Immat Gran (auto) Absolute Neuts (auto) Absolute Nucleated RBC Nucleated RBC % (auto) Anion Gap Estim Creat Clear Calc Estimated GFR POC Glucose 101 104 Random Glucose Lactic Acid 1.3 Calcium Magnesium Total Bilirubin Direct Bilirubin AST ALT Alkaline Phosphatase Total Protein Albumin Lipase Urine Color Urine Appearance Urine pH Ur Specific [place] Urine Protein Urine Glucose (UA) Urine Ketones Urine Blood Urine Nitrite Ur Leukocyte Esterase Urine RBC Urine WBC Ur Squamous Epith Cells Urine Bacteria Hyaline Casts Acetone, Qual 09/15/22 09/15/22 09/15/22 06:24 06:24 07:28 MCV 83.9 MCH 28.0 MCHC 33.3 RDW 13.6 Plt Count 167 MPV 8.7 L Immature Gran % (Auto) 0.1 Neut % (Auto) 37.6 L Lymph % (Auto) 53.1 H [place] % (Auto) 6.4 Eos % (Auto) 2.4 Baso % (Auto) 0.4 Lymph # (Auto) 3.8 [place] # (Auto) 0.5 Eos # (Auto) 0.2 Baso # (Auto) 0.0 Abs Immat Gran (auto) 0.01 Absolute Neuts (auto) 2.7 Absolute Nucleated RBC 0.000 Nucleated RBC % (auto) 0.0 Anion Gap 8 L Estim Creat Clear Calc 83.1 Estimated GFR > 60 POC Glucose 124 H Random Glucose 121 H Lactic Acid Calcium 8.9 D Magnesium Total Bilirubin Direct Bilirubin AST ALT Alkaline Phosphatase Total Protein Albumin Lipase Urine Color Urine Appearance Urine pH Ur Specific [place] Urine Protein Urine Glucose (UA) Urine Ketones Urine Blood Urine Nitrite Ur Leukocyte Esterase Urine RBC Urine WBC Ur Squamous Epith Cells Urine Bacteria Hyaline Casts Acetone, Qual Assessment and Plan (1) Hypertension: Status: Acute Plan 52M PMH of mood disorder, insulin-dependent diabetes, mixed hyperlipidemia who presented to the emergency department for evaluation of right-sided abdominal pain. Acute right-sided pyelonephritis IV Rocephin, Follow culture Imaging with hyperdense focus in common bile duct eventual MRCP Insulin-dependent diabetes mellitus 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 insulin. hyperlipidemia statin DVT prophylaxis:? Lovenox 40 mg daily Full code reason for continued hospitalization: awaiting cultures Time Spent With Patient Time: Total time managing care of this patient today ____ minutes. Quality Stroke Does the patient have a stroke diagnosis?: No VTE Prior VTE?: No VTE Risk Level:: Medical - moderate - high VTE Device Contraindication: Treatment Not Indicated VTE Drug Contraindication: N/A - Med Ordered
[2022-09-15] MEDS: 0.9 % Sodium Chloride Flush 3 ML SYRINGE IVFLUSH ×2 (09:45→17:10)
[2022-09-15] MEDS: Aspirin Enteric Coated 81 MG TABLET.DR PO (09:45)
--- NOTE | 2022-09-15 10:05 | MHC.CM.PN ---
Lives w/daughter in first flr apt, owns wheeled walker, no prior services, does not drive. Interview conducted w/Bin [phone] (primary contact & primary caregiver)...HCP Dave also interviewed but relies on Bin's input, etc. Bin indicates Pt unable to care for self mentally and functionally, and that she is unable to walk anymore. He states her mental state has effected her ability to take care of herself. He indicates the family is definitely interested in STR for her; wants only [place] based facilities, as no family members drive. He is requesting that [facility] help her with medications for her mental problems. Will discuss case (?psych eval for potential mood stabilizer, etc) w/. CM to follow.
--- NOTE | 2022-09-15 10:35 | MHC.CM.PN ---
Notified RE discussion w/family and patient's decline (mentally/functionally) since July 2022. CM to follow.
[2022-09-15 11:29] LABS: Glucose, Whole Blood 202 mg/dL (60-115)
[2022-09-15] MEDS: Insulin Lispro 100 UNIT/ML 3 ML VIAL SUBCUT ×3 (12:10→20:37)
[2022-09-15 15:07] VITALS: BP 150/80; PULSE 101; RESP 18; TEMP 36.6; O2SAT 98
[2022-09-15 15:46] LABS: Glucose, Whole Blood 153 mg/dL (60-115)
[2022-09-15 19:09] VITALS: BP 173/71; PULSE 95; RESP 17; TEMP 35.9; O2SAT 100
[2022-09-15 19:51] LABS: Glucose, Whole Blood 247 mg/dL (60-115)
[2022-09-15] MEDS: Atorvastatin Calcium 80 MG TABLET PO (20:37)
[2022-09-15] MEDS: cefTRIAXone sodium 1 GM in 0.9 % Sodium Chloride 50 ML IV (20:38)
[2022-09-15] MEDS: Insulin Glargine,Hum.rec.anlog 100 UNIT/ML 10 ML VIAL 15 UNIT SUBCUT (20:38)
[2022-09-15 23:06] VITALS: BP 142/65; PULSE 90; RESP 18; TEMP 36; O2SAT 98
[2022-09-16] VITALS (7 sets, daily range): BP systolic 113–188; BP diastolic 62–86; PULSE 85–95; RESP 16–18; TEMP 35.9–37; O2SAT 97–100
[2022-09-16] MEDS: 0.9 % Sodium Chloride Flush 3 ML SYRINGE IVFLUSH ×3 (00:03→21:30)
[2022-09-16 03:08] LABS: Glucose, Whole Blood 72 mg/dL (60-115)
[2022-09-16] MEDS: Acetaminophen 325 MG TABLET 650 MG PO ×2 (03:25→09:31)
[2022-09-16 06:04] LABS: Hematocrit 26.9 % (37.0-47.0); Hemoglobin 9.2 g/dl (12.0-16.0); Mean Corpuscular HGB Conc 34.2 g/dl (31.0-35.0); Mean Corpuscular Hemoglobin 28.9 pg (27.0-33.0); Mean Corpuscular Volume 84.6 fL (80.0-98.0); Mean Platelet Volume 8.3 fL (9.4-12.3); Platelet Count 178 X10*3/uL (160-400); Red Blood Count 3.18 X10*6/uL (4.20-5.50); Red Cell Distribution Width 13.6 % (11.0-16.0); White Blood Count 6.3 X10*3/uL (4.8-10.8)
[2022-09-16 06:23] LABS: Anion Gap 10 (12-20); Blood Urea Nitrogen 12 mg/dL (9-16); Carbon Dioxide 31 mmol/L (22-29); Chloride 104 mmol/L (96-108); Creatinine Clr Calc Pharmacy 88.2; Estimated Glomerular Filt Rate > 60; Glucose Fasting 130 mg/dL (60-99); Potassium 3.7 mmol/L (3.3-5.1); Sodium 141 mmol/L (135-145)
[2022-09-16 07:36] LABS: Glucose, Whole Blood 113 mg/dL (60-115)
--- NOTE | 2022-09-16 09:19 | HO.PM.IMPN ---
Subjective Subjective Date of Service: 09/16/22 Interval History: no complaints Physical Exam Vital Signs: Vital Signs: Last Vital Signs Temp 97 F 09/16/22 07:32 Pulse 85 09/16/22 07:32 Resp 18 09/16/22 07:32 BP 166/77 H 09/16/22 07:32 Pulse Ox 98 09/16/22 07:32 O2 Del Method Room Air 09/16/22 07:32 BMI result Body Mass Index 20.2 abd soft, non tender Objective Data Active Medications Acetaminophen (Acetaminophen 325 Mg Tablet) 650 mg PO Q6H PRN PRN Reason: Pain, Mild (Pain Scale 1-3) Last Admin: 09/16/22 03:25 Dose: 650 mg Documented By: ANTOINETTE Aspirin (Aspirin Enteric Coated 81 Mg Tablet.) 81 mg PO DAILY [facility] Last Admin: 09/15/22 09:45 Dose: 81 mg Documented By: TARUN Atorvastatin Calcium (Atorvastatin Calcium 80 Mg Tablet) 80 mg PO BEDTIME [facility] Last Admin: 09/15/22 20:37 Dose: 80 mg Documented By: SIVAKUMAR Enoxaparin Sodium (Enoxaparin Sodium 40 Mg/0.4 Ml Syringe) 40 mg SUBCUT Q24H [facility] Last Admin: 09/15/22 20:25 Dose: Not Given Documented By: SIVAKUMAR Non-Admin Reason: Patient Refused Glucose (Glucose Gel 15 Gm Gel..Gram.) 15 gm PO Q15M PRN; Protocol PRN Reason: per Hypoglycemia Standing Ord. Dextrose (D10) 250 mls @ 750 mls/hr IV Q15M PRN; Protocol PRN Reason: per Hypoglycemia Standing Ord. Ceftriaxone Sodium 1 gm/ (Sodium Chloride) 50 mls @ 100 mls/hr IV Q24H [facility] Last Infusion: 09/15/22 21:34 Dose: 0 mls/hr Documented By: SIVAKUMAR Insulin Glargine (Insulin Glargine,Hum.Rec.Anlog 100 Unit/Ml 10 Ml Vial) 15 unit SUBCUT BEDTIME [facility] Last Admin: 09/15/22 20:38 Dose: 15 unit Documented By: SIVAKUMAR Insulin Human Lispro (Insulin Lispro 100 Unit/Ml 3 Ml Vial) 0 unit SUBCUT QIDACHS [facility]; Protocol Last Admin: 09/16/22 08:51 Dose: Not Given Documented By: ZEENAT Non-Admin Reason: No Insulin Coverage Melatonin (Melatonin 3 Mg Tablet) 6 mg PO BEDTIME PRN PRN Reason: Insomnia Ondansetron HCl (Ondansetron Hcl 4 Mg/2 Ml Vial) 4 mg IVPUSH Q8H PRN PRN Reason: Nausea and Vomiting Pharmacy Consult (Consult Rx Perform Med Rec) 1 each MISCELLANE ONCE PRN PRN Reason: Consult order Sodium Chloride (0.9 % Sodium Chloride Flush 3 Ml Syringe) 3 ml IVFLUSH QSHIFT [facility] Last Admin: 09/16/22 00:03 Dose: 3 ml Documented By: ANTOINETTE Labs 09/16/22 05:45 09/16/22 05:45 Labs: Laboratory Results - last 24 hr 09/15/22 09/15/22 09/15/22 11:22 15:10 19:12 MCV MCH MCHC RDW Plt Count MPV Absolute Nucleated RBC Nucleated RBC % (auto) Anion Gap Estim Creat Clear Calc Estimated GFR POC Glucose 202 H 153 H 247 H Fasting Glucose Calcium 09/16/22 09/16/22 09/16/22 03:05 05:45 05:45 MCV 84.6 MCH 28.9 MCHC 34.2 RDW 13.6 Plt Count 178 MPV 8.3 L Absolute Nucleated RBC 0.000 Nucleated RBC % (auto) 0.0 Anion Gap 10 L Estim Creat Clear Calc 88.2 Estimated GFR > 60 POC Glucose 72 Fasting Glucose 130 H Calcium 9.0 09/16/22 07:31 MCV MCH MCHC RDW Plt Count MPV Absolute Nucleated RBC Nucleated RBC % (auto) Anion Gap Estim Creat Clear Calc Estimated GFR POC Glucose 113 Fasting Glucose Calcium Microbiology Microbiology Results: Microbiology 09/14/22 21:11 Blood Culture - Preliminary Blood - Venous No growth after 24 hours. 09/14/22 21:13 Blood Culture - Preliminary Blood - Venous No growth after 24 hours. 09/14/22 Unknown Urine Culture - Preliminary Urine clean catch - Urine tyler top Culture too young to evaluate. Assessment and Plan (1) Hypertension: Status: Acute Plan 52M PMH of mood disorder, insulin-dependent diabetes, mixed hyperlipidemia who presented to the emergency department for evaluation of right-sided abdominal pain. Acute right-sided pyelonephritis IV Rocephin, Follow up culture Imaging with hyperdense focus in common bile duct eventual MRCP worsening ability to do ADLs previous ?findings on mri neuro eval Insulin-dependent diabetes mellitus 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 insulin. hyperlipidemia statin DVT prophylaxis:? Lovenox 40 mg daily Full code reason for continued hospitalization: awaiting cultures Time Spent With Patient Time: Total time managing care of this patient today ____ minutes. Quality Stroke Does the patient have a stroke diagnosis?: No VTE Prior VTE?: No VTE Risk Level:: Medical - moderate - high VTE Device Contraindication: Treatment Not Indicated VTE Drug Contraindication: N/A - Med Ordered
[2022-09-16] MEDS: Aspirin Enteric Coated 81 MG TABLET.DR PO (09:32)
[2022-09-16 12:04] LABS: Glucose, Whole Blood 202 mg/dL (60-115)
[2022-09-16] MEDS: Insulin Lispro 100 UNIT/ML 3 ML VIAL SUBCUT ×3 (12:33→21:31)
[2022-09-16] MEDS: Morphine Sulfate 2 MG/ML CARTRIDGE IVPUSH ×2 (14:09→21:41)
--- NOTE | 2022-09-16 15:34 | PC.NURSE ---
Patient alert to self and place off on date, stave saw operator utilized for communication. OOB with assist to commode voiding without difficulty. Unsteady gait per patient has been having numbness/tingling to bilateral feet for approximately one month. + pedal pulses bilaterally. High fall risk per patients daughter has been falling frequently at home. Continues to complain of pain to abdomen Tylenol given with little effect [facility] ROMO notified IV morphine ordered and given with effect. Blood pressure into 180's [facility] ROMO notified of findings no new orders at this time. Pt resting in bed low position and alarm for safety educated on use of call sampson for assistance to get up. Will continue to monitor and report changes
[2022-09-16 15:57] LABS: Glucose, Whole Blood 173 mg/dL (60-115)
[2022-09-16 19:15] LABS: Glucose, Whole Blood 236 mg/dL (60-115)
[2022-09-16] MEDS: Atorvastatin Calcium 80 MG TABLET PO (21:29)
[2022-09-16] MEDS: cefTRIAXone sodium 1 GM in 0.9 % Sodium Chloride 50 ML IV (21:29)
[2022-09-16] MEDS: Enoxaparin Sodium 40 MG/0.4 ML SYRINGE SUBCUT (21:29)
[2022-09-16] MEDS: Insulin Glargine,Hum.rec.anlog 100 UNIT/ML 10 ML VIAL 15 UNIT SUBCUT (21:30)
[2022-09-17 04:00] VITALS: BP 118/58; PULSE 92; RESP 20; TEMP 37; O2SAT 97
[2022-09-17 07:18] LABS: Glucose, Whole Blood 78 mg/dL (60-115)
[2022-09-17 07:19] VITALS: BP 138/66; PULSE 88; RESP 20; TEMP 36.4; O2SAT 98
--- NOTE | 2022-09-17 11:00 | HO.PM.IMPN ---
Subjective Subjective Date of Service: 09/17/22 Interval History: abd pain improved Physical Exam Vital Signs: Vital Signs: Last Vital Signs Temp 97.5 F 09/17/22 07:19 Pulse 88 09/17/22 07:19 Resp 20 09/17/22 07:19 BP 138/66 09/17/22 07:19 Pulse Ox 98 09/17/22 07:19 O2 Del Method Room Air 09/17/22 07:19 BMI result Body Mass Index 20.2 abd soft, non tender Objective Data Active Medications Acetaminophen (Acetaminophen 325 Mg Tablet) 650 mg PO Q6H PRN PRN Reason: Pain, Mild (Pain Scale 1-3) Last Admin: 09/16/22 09:31 Dose: 650 mg Documented By: ZEENAT Aspirin (Aspirin Enteric Coated 81 Mg Tablet.) 81 mg PO DAILY [facility] Last Admin: 09/17/22 10:31 Dose: Not Given Documented By: ALLAN Non-Admin Reason: NPO Atorvastatin Calcium (Atorvastatin Calcium 80 Mg Tablet) 80 mg PO BEDTIME [facility] Last Admin: 09/16/22 21:29 Dose: 80 mg Documented By: CELESTE Enoxaparin Sodium (Enoxaparin Sodium 40 Mg/0.4 Ml Syringe) 40 mg SUBCUT Q24H [facility] Last Admin: 09/16/22 21:29 Dose: 40 mg Documented By: CELESTE Glucose (Glucose Gel 15 Gm Gel..Gram.) 15 gm PO Q15M PRN; Protocol PRN Reason: per Hypoglycemia Standing Ord. Dextrose (D10) 250 mls @ 750 mls/hr IV Q15M PRN; Protocol PRN Reason: per Hypoglycemia Standing Ord. Ceftriaxone Sodium 1 gm/ (Sodium Chloride) 50 mls @ 100 mls/hr IV Q24H [facility] Last Infusion: 09/16/22 22:29 Dose: 0 mls/hr Documented By: CELESTE Insulin Glargine (Insulin Glargine,Hum.Rec.Anlog 100 Unit/Ml 10 Ml Vial) 15 unit SUBCUT BEDTIME [facility] Last Admin: 09/16/22 21:30 Dose: 15 unit Documented By: CELESTE Insulin Human Lispro (Insulin Lispro 100 Unit/Ml 3 Ml Vial) 0 unit SUBCUT QIDACHS [facility]; Protocol Last Admin: 09/17/22 08:55 Dose: Not Given Documented By: ALLAN Non-Admin Reason: No Insulin Coverage Melatonin (Melatonin 3 Mg Tablet) 6 mg PO BEDTIME PRN PRN Reason: Insomnia Morphine Sulfate (Morphine Sulfate 2 Mg/Ml Cartridge) 2 mg IVPUSH Q3H PRN; Protocol PRN Reason: moderate pain Last Admin: 09/16/22 21:41 Dose: 2 mg Documented By: CELESTE Ondansetron HCl (Ondansetron Hcl 4 Mg/2 Ml Vial) 4 mg IVPUSH Q8H PRN PRN Reason: Nausea and Vomiting Pharmacy Consult (Consult Rx Perform Med Rec) 1 each MISCELLANE ONCE PRN PRN Reason: Consult order Sodium Chloride (0.9 % Sodium Chloride Flush 3 Ml Syringe) 3 ml IVFLUSH QSHIFT [facility] Last Admin: 09/17/22 10:31 Dose: Not Given Documented By: ALLAN Non-Admin Reason: Previously Administered Labs 09/16/22 05:45 09/16/22 05:45 Labs: Laboratory Results - last 24 hr 09/16/22 09/16/22 09/16/22 11:54 15:25 18:30 POC Glucose 202 H 173 H 236 H 09/17/22 07:15 POC Glucose 78 Microbiology Microbiology Results: Microbiology 09/14/22 21:11 Blood Culture - Preliminary Blood - Venous No growth after 48 hours. 09/14/22 21:13 Blood Culture - Preliminary Blood - Venous No growth after 48 hours. 09/14/22 Unknown Urine Culture - Final Urine clean catch - Urine tyler top Assessment and Plan (1) Hypertension: Status: Acute Plan 52M PMH of mood disorder, insulin-dependent diabetes, mixed hyperlipidemia who presented to the emergency department for evaluation of right-sided abdominal pain. Acute right-sided pyelonephritis IV Rocephin, cultures negative Imaging with hyperdense focus in common bile duct MRCP worsening ability to do ADLs previous ?findings on mri neuro eval Insulin-dependent diabetes mellitus 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 insulin. hyperlipidemia statin DVT prophylaxis:? Lovenox 40 mg daily Full code reason for continued hospitalization: awaiting neuro, mrcp Time Spent With Patient Time: Total time managing care of this patient today ____ minutes. Quality Stroke Does the patient have a stroke diagnosis?: No VTE Prior VTE?: No VTE Risk Level:: Medical - moderate - high VTE Device Contraindication: Treatment Not Indicated VTE Drug Contraindication: N/A - Med Ordered
[2022-09-17 12:00] VITALS: BP 185/83; PULSE 95; RESP 20; TEMP 36.4; O2SAT 98
--- NOTE | 2022-09-17 14:45 | PC.NURSE ---
Patient choked on lunch food, RN called in by VMT staff, patient possibly aspirated, msg sent to provider requesting Xray, patient was made NPO and speech eval ordered.
--- NOTE | 2022-09-17 14:49 | MHC.CM.PN ---
EMR reviewed and per MD rounds, pt not medically cleared for D/C and is awaiting PT eval and neuro consult. CM will continue to follow.
[2022-09-17 15:18] VITALS: BP 180/75; PULSE 89; RESP 18; TEMP 37; O2SAT 98
[2022-09-17 16:01] LABS: Glucose, Whole Blood 182 mg/dL (60-115)
[2022-09-17] MEDS: Insulin Lispro 100 UNIT/ML 3 ML VIAL SUBCUT ×2 (17:26→21:28)
[2022-09-17] MEDS: 0.9 % Sodium Chloride Flush 3 ML SYRINGE IVFLUSH (17:26)
[2022-09-17] MEDS: Morphine Sulfate 2 MG/ML CARTRIDGE IVPUSH (19:15)
[2022-09-17 19:22] VITALS: BP 130/65; PULSE 109; RESP 18; TEMP 37; O2SAT 99
[2022-09-17 20:06] LABS: Glucose, Whole Blood 307 mg/dL (60-115)
[2022-09-17] MEDS: cefTRIAXone sodium 1 GM in 0.9 % Sodium Chloride 50 ML IV (21:27)
[2022-09-17] MEDS: Atorvastatin Calcium 80 MG TABLET PO (21:27)
[2022-09-17] MEDS: Enoxaparin Sodium 40 MG/0.4 ML SYRINGE SUBCUT (21:28)
[2022-09-17] MEDS: Insulin Glargine,Hum.rec.anlog 100 UNIT/ML 10 ML VIAL 15 UNIT SUBCUT (21:28)
[2022-09-17 23:30] VITALS: BP 144/63; PULSE 96; RESP 18; TEMP 36.6; O2SAT 98
[2022-09-18 03:53] VITALS: BP 149/54; PULSE 84; RESP 18; TEMP 36.7; O2SAT 96
[2022-09-18 07:10] VITALS: BP 172/86; PULSE 96; RESP 20; TEMP 37.2; O2SAT 95
[2022-09-18 08:23] LABS: Glucose, Whole Blood 284 mg/dL (60-115)
[2022-09-18] MEDS: Insulin Lispro 100 UNIT/ML 3 ML VIAL SUBCUT ×3 (08:25→17:19)
[2022-09-18] MEDS: Aspirin Enteric Coated 81 MG TABLET.DR PO (08:26)
[2022-09-18] MEDS: 0.9 % Sodium Chloride Flush 3 ML SYRINGE IVFLUSH (08:26)
--- NOTE | 2022-09-18 09:25 | P.PNIM_ITS ---
Subjective Subjective Date of Service: 09/18/22 Interval History: abd pain better Physical Exam Vital Signs: Vital Signs: Last Vital Signs Temp 98.9 F 09/18/22 07:10 Pulse 96 09/18/22 07:10 Resp 20 09/18/22 07:10 BP 172/86 H 09/18/22 07:10 Pulse Ox 95 09/18/22 07:10 O2 Del Method Room Air 09/18/22 07:10 O2 Flow Rate 98 09/17/22 12:00 BMI result Body Mass Index 20.2 abd soft, non tender Objective Data Active Medications Acetaminophen (Acetaminophen 325 Mg Tablet) 650 mg PO Q6H PRN PRN Reason: Pain, Mild (Pain Scale 1-3) Last Admin: 09/16/22 09:31 Dose: 650 mg Documented By: ZEENAT Aspirin (Aspirin Enteric Coated 81 Mg Tablet.) 81 mg PO DAILY [facility] Last Admin: 09/18/22 08:26 Dose: 81 mg Documented By: TARUN Atorvastatin Calcium (Atorvastatin Calcium 80 Mg Tablet) 80 mg PO BEDTIME [facility] Last Admin: 09/17/22 21:27 Dose: 80 mg Documented By: JHONNY Enoxaparin Sodium (Enoxaparin Sodium 40 Mg/0.4 Ml Syringe) 40 mg SUBCUT Q24H [facility] Last Admin: 09/17/22 21:28 Dose: 40 mg Documented By: JHONNY Glucose (Glucose Gel 15 Gm Gel..Gram.) 15 gm PO Q15M PRN; Protocol PRN Reason: per Hypoglycemia Standing Ord. Dextrose (D10) 250 mls @ 750 mls/hr IV Q15M PRN; Protocol PRN Reason: per Hypoglycemia Standing Ord. Ceftriaxone Sodium 1 gm/ (Sodium Chloride) 50 mls @ 100 mls/hr IV Q24H [facility] Last Infusion: 09/17/22 22:09 Dose: 0 mls/hr Documented By: JHONNY Insulin Glargine (Insulin Glargine,Hum.Rec.Anlog 100 Unit/Ml 10 Ml Vial) 15 unit SUBCUT BEDTIME [facility] Last Admin: 09/17/22 21:28 Dose: 15 unit Documented By: JHONNY Insulin Human Lispro (Insulin Lispro 100 Unit/Ml 3 Ml Vial) 0 unit SUBCUT QIDACHS [facility]; Protocol Last Admin: 09/18/22 08:25 Dose: 6 unit Documented By: TARUN Melatonin (Melatonin 3 Mg Tablet) 6 mg PO BEDTIME PRN PRN Reason: Insomnia Morphine Sulfate (Morphine Sulfate 2 Mg/Ml Cartridge) 2 mg IVPUSH Q3H PRN; Protocol PRN Reason: moderate pain Last Admin: 09/17/22 19:15 Dose: 2 mg Documented By: JHONNY Ondansetron HCl (Ondansetron Hcl 4 Mg/2 Ml Vial) 4 mg IVPUSH Q8H PRN PRN Reason: Nausea and Vomiting Pharmacy Consult (Consult Rx Perform Med Rec) 1 each MISCELLANE ONCE PRN PRN Reason: Consult order Sodium Chloride (0.9 % Sodium Chloride Flush 3 Ml Syringe) 3 ml IVFLUSH QSHIFT [facility] Last Admin: 09/18/22 08:26 Dose: 3 ml Documented By: TARUN Labs 09/16/22 05:45 09/16/22 05:45 Labs: Laboratory Results - last 24 hr 09/17/22 09/17/22 09/18/22 15:16 19:20 07:06 POC Glucose 182 H 307 H 284 H Assessment and Plan (1) Hypertension: Status: Acute Plan 52M PMH of mood disorder, insulin-dependent diabetes, mixed hyperlipidemia who presented to the emergency department for evaluation of right-sided abdominal pain. Acute right-sided pyelonephritis IV Rocephin from 09/15/22, cultures negative Imaging with hyperdense focus in common bile duct MRCP with no obstruction, ?small stone outpatinet gi follow up worsening ability to do ADLs previous ?findings on mri neuro eval Insulin-dependent diabetes mellitus 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 insulin. hyperlipidemia statin DVT prophylaxis:? Lovenox 40 mg daily Full code reason for continued hospitalization: awaiting neuro Time Spent With Patient Time: Total time managing care of this patient today ____ minutes. Quality Stroke Does the patient have a stroke diagnosis?: No VTE Prior VTE?: No VTE Risk Level:: Medical - moderate - high VTE Device Contraindication: Treatment Not Indicated VTE Drug Contraindication: N/A - Med Ordered
[2022-09-18 11:02] LABS: Glucose, Whole Blood 253 mg/dL (60-115)
[2022-09-18 11:07] VITALS: BP 164/80; PULSE 95; RESP 20; TEMP 37; O2SAT 97
--- NOTE | 2022-09-18 13:49 | PM.DS ---
DS: Providers Provider Date of Service: 09/18/22 Date of admission: 09/14/22 21:22 Primary care physician: Neelima Gómez MD Consults: 09/15/22 10:33 Consult to Neurology Routine Consulting Provider: [facility] Reason for consultation: mental decline, ?mri findings DS: Diagnosis Discharge Diagnosis (1) Hypertension: Status: Acute DS: Summary Hospital Course Hospital Course: from intiial hpi: 52-year-old male with pertinent history of mood disorder, insulin-dependent diabetes, mixed hyperlipidemia who presents to the emergency department for evaluation of right-sided abdominal pain.? Patient states she has been having right flank pain that started 2 days prior to presentation and radiating to the groin.? Also has been having urinary urgency.? No fever but admits chills.? Patient states that she is doing better to be compliant with the medications.? Also takes her insulin on time.? Patient states her abdominal discomfort has been constant and without any relieving factors.? She denies chest discomfort, palpitations, shortness breath, changes in bowel habits In the emergency department, imaging with right-sided pyelonephritis. hospital course: Patient was admitted for acute right-sided pyelonephritis. Was treated with IV ceftriaxone. Cultures were negative. Completed treatment in hospital. For abdominal pain and imaging with hyperdense focus in the common bile duct she underwent MRCP which showed no obstruction of question of small stone. Patient is status post cholecystectomy. She can follow up outpatient with GI. For patient's worsening of ADLs and questionable findings on MRI from July, she can follow up outpatient with Neurology. For diabetes 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 she was continued on insulin. For hyperlipidemia she was continued on statin. Patient is feeling better will be discharged home. Time Spent with Patient Time attestation: Total time managing care of this patient today ____ minutes. Discharge coordination time: Greater than 30 minutes Quality: Safe Use of Opioids Does Pt have an Active Cancer Diagnosis on the Problem List?: No Quality: Stroke Does the patient have a stroke diagnosis?: No Physical Exam Vital Signs: Vital Signs: Last Vital Signs Temp 98.6 F 09/18/22 11:07 Pulse 95 09/18/22 11:07 Resp 20 09/18/22 11:07 BP 164/80 H 09/18/22 11:07 Pulse Ox 97 09/18/22 11:07 O2 Del Method Room Air 05/16/23 11:07 O2 Flow Rate 98 09/17/22 12:00 BMI result Body Mass Index 20.2 abd soft, non tender DS: Data Data Completed and Pending Labs on day of discharge: Laboratory Results - last 24 hr 09/17/22 09/17/22 09/18/22 15:16 19:20 07:06 POC Glucose 182 H 307 H 284 H 09/18/22 10:58 POC Glucose 253 H Preliminary micro results at discharge 09/14/22 21:11 Blood Culture - Preliminary Blood - Venous No growth after 48 hours. 09/14/22 21:13 Blood Culture - Preliminary Blood - Venous No growth after 48 hours. Imaging MRI - abdomen: Radiologist's impression: ITS Impressions Abdomen/Pelvis CT 09/14/22 18:09 IMPRESSION: Right-sided pyelonephritis with urothelial enhancement and mild right hydroureteronephrosis with the ureter dilated to the level of crossing gonadal vessels, which may be causing some underlying stricture. Right kidney is mildly asymmetrically atrophic. No obstructive nephroureterolithiasis. A 2 mm hyperdense focus in the distal common bile duct, possibly reflective of the common bile duct stone however a tiny enhancing lesion could appear similar appearance and recommend correlation with contrast enhanced MR/MRCP abdomen to exclude an intraductal mass. There is no resultant intra or extrahepatic biliary duct dilatation. Hepatomegaly. Pancreas divisum. Cholangiopancreatography MRI 09/17/22 12:37 IMPRESSION: No intra or extrahepatic biliary duct dilatation. 3 x 4 mm low signal filling defect in the distal common bile duct. This may represent sludge or small stone. Post cholecystectomy. MRI - head: Radiologist's impression: ITS Impressions Abdomen/Pelvis CT 09/14/22 18:09 IMPRESSION: Right-sided pyelonephritis with urothelial enhancement and mild right hydroureteronephrosis with the ureter dilated to the level of crossing gonadal vessels, which may be causing some underlying stricture. Right kidney is mildly asymmetrically atrophic. No obstructive nephroureterolithiasis. A 2 mm hyperdense focus in the distal common bile duct, possibly reflective of the common bile duct stone however a tiny enhancing lesion could appear similar appearance and recommend correlation with contrast enhanced MR/MRCP abdomen to exclude an intraductal mass. There is no resultant intra or extrahepatic biliary duct dilatation. Hepatomegaly. Pancreas divisum. Cholangiopancreatography MRI 09/17/22 12:37 IMPRESSION: No intra or extrahepatic biliary duct dilatation. 3 x 4 mm low signal filling defect in the distal common bile duct. This may represent sludge or small stone. Post cholecystectomy. Discharge Plan Discharge Anticipated Discharge Date/Time: 09/18/22 13:47 Patient Disposition: Home, Self-Care Discharge Diagnosis: uti Referrals: Neelima Brown MD [Primary Care Provider] - 1 Week Antoinette Lima MD [Physician] - 1 Week (?cbd stones) Carlos Strickland MD [Physician] - 1 Week Discharge Medications: Continued atorvastatin 80 mg tablet 1 tab PO BEDTIME aspirin 81 mg tablet,delayed release (DR/EC) 1 tab PO DAILY metformin 1,000 mg tablet 1 tab PO BID pioglitazone 30 mg tablet 1 tab PO DAILY insulin lispro 100 unit/mL insulin pen See Protocol subcut TIDAC Protocol: Insulin Correction Scale Less than or equal to 110 ---- Give (units): 0 111 to 150 Give (units): 0 151 to 200 Give (units): 10 201 to 250 Give (units): 12 251 to 300 Give (units): 14 301 to 350 Give (units): 16 Greater than 350 Give (units): 18 Call MD if Blood Glucose > : 350 Rx Instructions: increase by 2 units per 50mg/dL insulin glargine [Lantus Solostar U-100 Insulin] 100 unit/mL (3 mL) insulin pen 18 unit subcut BEDTIME Discharge Orders: Discharge Order (Routine); Ordered 09/18/22 Ordered By: Azeem Kate Diet: Advance to usual diet Activity on Discharge: As tolerated Stand Alone Forms: Patient Portal Discharge page Care Plan Goals: recovery Health Concerns: decrease in adls, ?cbd stone Plan of Treatment: follow up with neurology, follow up with gi Assessment: see above
--- NOTE | 2022-09-18 14:03 | MHC.CM.PN ---
Pt medically cleared for D/C home self-care. Pts son Bill ([phone]) will pick pt up at 3:30pm today.
[2022-09-18 15:22] VITALS: BP 166/84; PULSE 100; RESP 18; TEMP 37; O2SAT 97
[2022-09-18 16:42] LABS: Glucose, Whole Blood 227 mg/dL (60-115)
--- NOTE | 2022-09-18 16:56 | PC.NURSE ---
discharge instructions given to the patient with , global technical writer present for translation. Patient's son Bill was called 2 x re: pt's ride home. Bill's didn't chicken picker the phone and his voicemail is full. Bin pt's son was called and he stated that we have to call Bill re: pt's ride home. Patient is alert and oriented , stated that she feels dizzy when she walks , assisted to the commode , unsteady balance .
== END 2022-09-18 17:56 | disposition home or self-care (01) | DRG 463 ==
LOC: HO.ED 16:30 → HO.EDOVER 21:26 → HO.IMC 21:53
PROVIDERS: Physician Assistant; Admitting Provider Student in an Organized Health Care Education/Training Program; Emergency Provider Emergency Medicine; PCP Internal Medicine; Visit Provider Internal Medicine
DX: N13.6 Pyonephrosis (principal); E11.65 Type 2 diabetes mellitus 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; E78.2 Mixed hyperlipidemia; I10 Essential (primary) hypertension; Z79.4 Long term (current) use of insulin; Z79.82 Long term (current) use of aspirin; Z79.84 Long term (current) use of oral hypoglycemic drugs; Z79.899 Other long term (current) drug therapy
CPT/HCPCS: 36415; 74177; 74181; 80048; 80076; 81001; 82009; 82947; 83605; 83690; 83735; 85025; 85027; 87040; 87086; 93005; 99285; J0696; J1650; J2270; Q9967

== ENCOUNTER 2022-10-02 07:29 | Emergency (ER) | payer MEDICAID, SELFPAY ==
--- NOTE | 2022-10-02 | ECG_ITS ---
Test Reason : Weakness Blood Pressure : / mmHG Vent. Rate : 090 BPM Atrial Rate : 090 BPM P-R Int : 168 ms QRS Dur : 076 ms QT Int : 392 ms P-R-T Axes : 054 009 012 degrees QTc Int : 479 ms Normal sinus rhythm Normal ECG When compared with ECG of 14-SEP-2022 14:13, Nonspecific T wave abnormality no longer evident in Anterior leads QT has lengthened Referred By: Ric Bermeo Electronically Signed By:JAYA STOLL MD
[2022-10-02 07:39] VITALS: BP 160/90; BP 180/73; PULSE 102; PULSE 94; RESP 18; TEMP 36.6; O2SAT 100; O2SAT 99; BMI 23.8
[2022-10-02 07:51] LABS: Glucose, Whole Blood 86 mg/dL (60-115)
--- NOTE | 2022-10-02 07:54 | ED_ITS ---
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 patient presents with abdominal pain starting at 11pm. No n/v/d, no fever. No dysuria no hematuria. She states that her entire body hurts. She has been to [facility] recently with the same issues. Onset (ago): day(s) Severity: moderate Pain Consistency: constant Related Data Home Medications Medication Instructions Recorded Confirmed aspirin 81 mg tablet,delayed 1 tab PO DAILY 07/21/22 09/14/22 release atorvastatin 80 mg tablet 1 tab PO BEDTIME 07/21/22 09/14/22 insulin glargine 100 unit/mL (3 18 unit subcut BEDTIME 07/21/22 09/14/22 mL) subcutaneous pen (Lantus Solostar U-100 Insulin) insulin lispro 100 unit/mL See Protocol subcut TIDAC 07/21/22 09/14/22 subcutaneous pen metformin 1,000 mg tablet 1 tab PO BID 07/21/22 09/14/22 pioglitazone 30 mg tablet 1 tab PO DAILY 07/21/22 09/14/22 Previous Rx's Medication Instructions Recorded nitrofurantoin 100 mg PO Q12H 7 days #14 caps 10/02/22 monohydrate/macrocrystals 100 mg capsule (Macrobid) Allergies Allergy/AdvReac Type Severity Reaction Status Date / Time shrimp Allergy Swelling Verified 10/02/22 07:48 Review of Systems Review of Systems: Yes all other systems are reviewed and are negative Gastrointestinal: Gastrointestinal: Reports abdominal pain PMFSH Past Medical History Medical History Anemia Brain lesion Depression HLD (hyperlipidemia) Iron deficiency anemia Type 2 diabetes mellitus Family History Family History Other Hypertension Social History Social History Household Members: Family Housing: Apartment Do you presently have visiting nurse or other home services: Yes Unable to assess alcohol history related to: Unable to respond Alcohol intake: never Patient Tobacco Use Status: Never used Tobacco Advance Directives: Yes Advance Directives on File: Yes Advance Directives Date on File: 06/19/21 service: No Current occupational status: unemployed Physical Exam ED Vital Signs: Vital Signs - 24 hr 10/02/22 07:39 10/02/22 09:41 10/02/22 12:20 Temperature 97.9 F 97.9 F 98.1 F Pulse Rate 94 87 74 Respiratory Rate 18 16 20 Blood Pressure 180/73 H 139/70 188/82 H Pulse Oximetry 100 100 99 Oxygen Delivery Method Room Air Room Air Room Air BMI result Body Mass Index 23.8 Const Other: female looking older than stated age Nutritional Appearance: average body habitus Orientation/consciousness: oriented to person and patient oriented x3 Limitations: no limitations HENMT Head: Yes normal to inspection Ears: external ears normal General nose exam: Normal external nose present Mouth: Normal oral and palatal mucosa present and oropharynx normal Throat: Yes posterior oropharynx normal Eyes General: appearance normal, both eyes and all related structures Neck Neck: Yes normal visual inspection Chest Chest palpation & inspection: normal inspection of the chest Resp Auscultation: clear to auscultation bilaterally Cardio Jugular venous distension: no JVD Rate: regular rate Rhythm: regular rhythm Heart sounds: S1 normal heart sound present and S2 normal heart sound present GI Inspection: Yes normal to inspection Palpation (GI): Soft to palpation, nontender and No hepatosplenomegaly present Auscultation: normal bowel sounds General: Yes no CVA tenderness Back/Spine/Pelvis Back: no CVA tenderness Skin General skin exam: no rashes or lesions noted Neuro General: oriented to person and patient oriented x3 Cranial nerves: Yes CN's II-XII intact bilaterally Motor exam (neuro): 5/5 motor strength present throughout Extrem General: Yes normal to inspection Psych Other: dysthmic disposition Course Reevaluation(s) Reevaluation #1: Patient with soft abdomen and aparent UTI on UA. Hypoglycemia has resolved, will dc home Time: 13:03 Medications Administered Discontinued Medications Generic Name Dose Route Start Last Admin Trade Name Freq PRN Reason Stop Dose Admin Acetaminophen 975 mg 10/02/22 12:36 10/02/22 12:41 Acetaminophen 325 Mg Tablet PO 10/02/22 12:37 975 mg ONCE ONE Administration Nitrofurantoin Macrocrystals 100 mg 10/02/22 09:43 10/02/22 10:47 Nitrofurantoin Monohyd/M-Cryst 100 Mg Capsule PO 10/02/22 09:44 100 mg ONCE ONE Administration Medical Decision Making Differential Diagnosis Differential Diagnoses: The differential diagnosis associated with the presentation includes (UTI, diverticulitis, hypoglycemia) Admission/Observation Consideration of admission/observation: Escalation of care including admission/observation considered (This chronically ill 52 yo female with abdominal pain was considered for admission on arrival) Lab Data MDM Lab Attestation statement: I reviewed the patient's lab results. 10/02/22 08:21 10/02/22 08:21 Labs: Lab Results 10/02/22 10/02/22 10/02/22 Range/Units 07:47 08:19 08:21 WBC 10.0 (4.8-10.8) X10*3/uL RBC 3.61 L (4.20-5.50) X10*6/uL Hgb 10.1 L (12.0-16.0) g/dl Hct 30.2 L (37.0-47.0) % MCV 83.7 (80.0-98.0) fL MCH 28.0 (27.0-33.0) pg MCHC 33.4 (31.0-35.0) g/dl RDW 13.4 (11.0-16.0) % Plt Count 181 (160-400) X10*3/uL MPV 8.1 L (9.4-12.3) fL Immature Gran % (Auto) 0.4 (0.0-0.4) % Neut % (Auto) 42.5 L (45-73) % Lymph % (Auto) 48.2 H (20-40) % [place] % (Auto) 7.4 (2-11) % Eos % (Auto) 1.1 (0-4) % Baso % (Auto) 0.4 (0-2) % Lymph # (Auto) 4.8 (1.2-4.9) X10*3/uL [place] # (Auto) 0.7 (0.1-1.2) X10*3/uL Eos # (Auto) 0.1 (0.0-0.4) X10*3/uL Baso # (Auto) 0.0 (0.0-0.2) X10*3/uL Abs Immat Gran (auto) 0.04 H (0.00-0.03) X10*3/uL Absolute Neuts (auto) 4.3 (2.0-8.3) x10*3/uL Absolute Nucleated RBC 0.000 (0.0-0.012) X10*3/uL Nucleated RBC % (auto) 0.0 (0.0-0.2) /100WBC Sodium (135-145) mmol/L Potassium (3.3-5.1) mmol/L Chloride (96-108) mmol/L Carbon Dioxide (22-29) mmol/L Anion Gap (12-20) BUN (9-16) mg/dL Creatinine (0.5-1.4) mg/dL Estim Creat Clear Calc Estimated GFR POC Glucose 86 (60-115) mg/dL Random Glucose (60-115) mg/dL Calcium (8.4-10.2) mg/dL Total Creatine Kinase (26-140) U/L Urine Color Yellow Urine Appearance Cloudy Urine pH 8.0 (5.0-9.0) Ur Specific [place] 1.025 (1.005-1.025) Urine Protein 100 (2+) H (Neg-Trace) mg/dL Urine Glucose (UA) >=1000 H (Negative) mg/dL Urine Ketones Negative (Negative) mg/dL Urine Blood Negative (Negative) Urine Nitrite Positive H (Negative) Ur Leukocyte Esterase Trace H (Negative) Urine RBC 0-2 (0-2) /HPF Urine WBC 11-20 H (0-5) /HPF Ur Squamous Epith Cells 11-20 (0-2) /HPF Urine Bacteria 4+ (None Seen) Hyaline Casts 3-5 (0-2) /LPF 10/02/22 10/02/22 Range/Units 08:21 10:03 WBC (4.8-10.8) X10*3/uL RBC (4.20-5.50) X10*6/uL Hgb (12.0-16.0) g/dl Hct (37.0-47.0) % MCV (80.0-98.0) fL MCH (27.0-33.0) pg MCHC (31.0-35.0) g/dl RDW (11.0-16.0) % Plt Count (160-400) X10*3/uL MPV (9.4-12.3) fL Immature Gran % (Auto) (0.0-0.4) % Neut % (Auto) (45-73) % Lymph % (Auto) (20-40) % [place] % (Auto) (2-11) % Eos % (Auto) (0-4) % Baso % (Auto) (0-2) % Lymph # (Auto) (1.2-4.9) X10*3/uL [place] # (Auto) (0.1-1.2) X10*3/uL Eos # (Auto) (0.0-0.4) X10*3/uL Baso # (Auto) (0.0-0.2) X10*3/uL Abs Immat Gran (auto) (0.00-0.03) X10*3/uL Absolute Neuts (auto) (2.0-8.3) x10*3/uL Absolute Nucleated RBC (0.0-0.012) X10*3/uL Nucleated RBC % (auto) (0.0-0.2) /100WBC Sodium 139 (135-145) mmol/L Potassium 3.3 (3.3-5.1) mmol/L Chloride 101 (96-108) mmol/L Carbon Dioxide 30 H (22-29) mmol/L Anion Gap 11 L (12-20) BUN 19 H (9-16) mg/dL Creatinine 0.83 (0.5-1.4) mg/dL Estim Creat Clear Calc 62.0 Estimated GFR > 60 POC Glucose 201 H (60-115) mg/dL Random Glucose 54 L* (60-115) mg/dL Calcium 9.7 D (8.4-10.2) mg/dL Total Creatine Kinase 29 (26-140) U/L Urine Color Urine Appearance Urine pH (5.0-9.0) Ur Specific [place] (1.005-1.025) Urine Protein (Neg-Trace) mg/dL Urine Glucose (UA) (Negative) mg/dL Urine Ketones (Negative) mg/dL Urine Blood (Negative) Urine Nitrite (Negative) Ur Leukocyte Esterase (Negative) Urine RBC (0-2) /HPF Urine WBC (0-5) /HPF Ur Squamous Epith Cells (0-2) /HPF Urine Bacteria (None Seen) Hyaline Casts (0-2) /LPF Independent Interpretation I performed an independent interpretation of an: EKG (sinus rate of [address] or twave changes) Tests considered The following testing was considered but not selected: I considered getting a CT of abdomen, but there was no fever, no WBC and abdomen was soft. Patient with a UTI Chronic Conditions Patient?s care impacted by: Diabetes and Hypertension Discharge Plan Discharge Clinical Impression: Urinary tract infection Patient Disposition: Home, Self-Care Instructions: Urinary Tract Infection in Women (ED) Prescriptions: New nitrofurantoin monohyd/m-cryst [Macrobid] 100 mg capsule 100 mg PO Q12H 7 Days Qty: 14 0RF Rx Instructions: must administer with a meal/food No Action atorvastatin 80 mg tablet 1 tab PO BEDTIME aspirin 81 mg tablet,delayed release (DR/EC) 1 tab PO DAILY metformin 1,000 mg tablet 1 tab PO BID pioglitazone 30 mg tablet 1 tab PO DAILY insulin lispro 100 unit/mL insulin pen See Protocol subcut TIDAC Protocol: Insulin Correction Scale Less than or equal to 110 ---- Give (units): 0 111 to 150 Give (units): 0 151 to 200 Give (units): 10 201 to 250 Give (units): 12 251 to 300 Give (units): 14 301 to 350 Give (units): 16 Greater than 350 Give (units): 18 Call MD if Blood Glucose > : 350 Rx Instructions: increase by 2 units per 50mg/dL insulin glargine [Lantus Solostar U-100 Insulin] 100 unit/mL (3 mL) insulin pen 18 unit subcut BEDTIME Referrals: [facility] [Primary Care Provider] - 5 days
[2022-10-02 08:35] LABS: MANUAL DIFF FLAG NO
[2022-10-02 08:37] LABS: Basophils Percent Auto 0.4 % (0-2); Eosinophils Absolute Auto 0.1 X10*3/uL (0.0-0.4); Eosinophils Percent Auto 1.1 % (0-4); Hematocrit 30.2 % (37.0-47.0); Hemoglobin 10.1 g/dl (12.0-16.0); Imm Gran Abs Auto 0.04 X10*3/uL (0.00-0.03); Imm Gran Pct Auto 0.4 % (0.0-0.4); Lymphocytes Absolute Auto 4.8 X10*3/uL (1.2-4.9); Lymphocytes Percent Auto 48.2 % (20-40); Mean Corpuscular HGB Conc 33.4 g/dl (31.0-35.0); Mean Corpuscular Volume 83.7 fL (80.0-98.0); Mean Platelet Volume 8.1 fL (9.4-12.3); Monocytes Absolute Auto 0.7 X10*3/uL (0.1-1.2); Monocytes Percent Auto 7.4 % (2-11); Neutrophils Absolute Auto 4.3 x10*3/uL (2.0-8.3); Neutrophils Percent Auto 42.5 % (45-73); Platelet Count 181 X10*3/uL (160-400); Red Blood Count 3.61 X10*6/uL (4.20-5.50); Red Cell Distribution Width 13.4 % (11.0-16.0)
[2022-10-02 08:39] LABS: Appearance Urine Cloudy; Color Urine Yellow; Glucose Urine UA >=1000 mg/dL (Negative); Leukocyte Esterase Urine Trace (Negative); Nitrite Urine Positive (Negative); Specific Gravity - Urine 1.025 (1.005-1.025); UMIC TRIGGER UACC YES; Urine Blood Negative (Negative); Urine Ketones Negative (Negative); Urine Protein 100 (2+) mg/dL (Neg-Trace)
[2022-10-02 08:42] LABS: Bacteria Urine 4+ (None Seen); RBC Urine 0-2 /HPF (0-2); UACC Culture Trigger YES
[2022-10-02 09:00] LABS: Anion Gap 11 (12-20); Blood Urea Nitrogen 19 mg/dL (9-16); Calcium 9.7 mg/dL (8.4-10.2); Carbon Dioxide 30 mmol/L (22-29); Chloride 101 mmol/L (96-108); Estimated Glomerular Filt Rate > 60; Potassium 3.3 mmol/L (3.3-5.1); Sodium 139 mmol/L (135-145)
[2022-10-02 09:05] LABS: Glucose Random 54 mg/dL (60-115)
[2022-10-02 09:41] VITALS: BP 139/70; PULSE 87; RESP 16; TEMP 36.6; O2SAT 100
[2022-10-02 10:15] LABS: Glucose, Whole Blood 201 mg/dL (60-115)
[2022-10-02] MEDS: Nitrofurantoin Monohyd/M-Cryst 100 MG CAPSULE PO ×2 (10:47→17:30)
[2022-10-02 12:20] VITALS: BP 188/82; PULSE 74; RESP 20; TEMP 36.7; O2SAT 99
[2022-10-02] MEDS: Acetaminophen 325 MG TABLET 975 MG PO (12:41)
[2022-10-02 13:03] LABS: Glucose, Whole Blood 280 mg/dL (60-115)
--- NOTE | 2022-10-02 14:00 | PC.NURSE ---
patient refused discharge home. states she does not feel safe at home . MD Bermeo aware
--- NOTE | 2022-10-02 18:56 | MHC.CM.ED ---
Received CM referral from , as patient is discharged and tells him she cannot go home. CM met with patient with medical transcriptionist, as patient is [place] Citizen speaking only. Pt wants to stay in the hospital. CM explained that patient has been discharge, has a UTI and was given antibiotics and has a script at [facility]. Pt intermittent crying. Asking for food. Denies abuse of any kind at home. Is safe at home. Lives with son and daughter. Had a walker, but it got lost according to patient. Pt given walker. Ambulates to BR with steady gait. Has no services and is not vaccinated against Covid 19. PCP at [facility], but patient does not know the name. Permission given to speak with son, Alvin. CM spoke with Alvin, but he was not able to speak with CM at this time. Will try to get a ride for his mother. States her walker is lost and both he and his sister live with mother. CM then spoke with daughter, who initially wanted patient to remain overnight, as she is and tired. She gave telephone to her cousin. Family is willing to take patient home, but are concerned about not getting medications for her tonight and are requesting that script be sent to [facility] on [address] Also are concerned, as patient does not have any more test strips for her glucometer. Pt checks POC BS TIDAC and takes pm insulin. Script sent to [facility] for Freestyle test strips. CM called and spoke with daughter, Twan. They have family coming to transport patient home. Aware of scripts for antibiotic/test strips at [facility] and that they can pick them up tomorrow, as patient was given her antibiotics for today in the ED. Also aware that pt was given a walker. All of above explained to patient with language interpreter. Pt ambulated to BR with walker and ate sandwich. D/C home with family.
== END 2022-10-02 18:59 | disposition home or self-care (01) ==
PROVIDERS: Emergency Provider Emergency Medicine
DX: N39.0 Urinary tract infection, site not specified (principal); R42 Dizziness and giddiness; E11.9 Type 2 diabetes mellitus without complications; E78.5 Hyperlipidemia, unspecified; Z79.82 Long term (current) use of aspirin; Z79.02 Long term (current) use of antithrombotics/antiplatelets; Z79.4 Long term (current) use of insulin; Z79.899 Other long term (current) drug therapy
CPT/HCPCS: 36415; 80048; 81001; 82550; 82947; 85025; 87086; 93005; 99284

== ENCOUNTER 2022-10-08 16:09 | Emergency (ER) | payer MEDICAID, SELFPAY ==
--- NOTE | ~2022-10-08 | CT_ITS ---
EXAMINATION: CT ABDOMEN AND PELVIS WITH CONTRAST CLINICAL INFORMATION: Abdominal pain COMPARISON: 09/14/2022 TECHNIQUE: Multidetector volumetric images were obtained from the superior aspect of the liver through the pubic symphysis following administration 85 mL of Omnipaque 350 intravenous contrast. Sagittal and coronal reformatted images were obtained on the technologist's workstation. Oral contrast: No This CT examination was performed using dose optimization techniques as appropriate, variously including the following: *Automated exposure control *Adjustment of mA and/or kV according to patient size (this includes techniques or standardized protocols for targeted exams where dose is matched to indication/reason for exam; i.e. extremities or head) *Use of iterative reconstruction technique DLP: 382 mGy-cm FINDINGS: LUNG BASES: The visualized lung bases are unremarkable. LIVER, GALLBLADDER, AND BILIARY TREE: The liver is normal in size, shape, and attenuation. No focal hepatic lesion or biliary ductal dilatation is present. Cholecystectomy. Although there is no ductal dilatation, ductal filling defects are seen in the lower aspect of the common bile duct, series 3 image 30. This is also well seen on series 7 image 41. This corresponds to the appearance on prior CT. PANCREAS: Unremarkable. SPLEEN: Unremarkable. ADRENAL GLANDS: Unremarkable. KIDNEYS AND URETERS: The kidneys are normal in size, shape, and attenuation. No hydronephrosis, hydroureter, or calculi seen. No perinephric stranding. BLADDER: Unremarkable. GASTROINTESTINAL TRACT: The stomach is unremarkable. Normal caliber of the small bowel. No obstruction. Normal appendix. No colonic wall thickening or inflammation. No free air or free fluid. ABDOMINAL WALL: No significant hernia is appreciated. LYMPH NODES: Normal. VASCULAR: Unremarkable. PELVIC VISCERA: The uterus and adnexa are unremarkable. OSSEOUS STRUCTURES: No acute or suspicious osseous abnormality. Degenerative change throughout the spine. Mild chronic anterior wedging of the L1 vertebral body. CT/CT abdomen pelvis w IV con IMPRESSION: 1. No acute inflammatory findings in the abdomen or pelvis. 2. Filling defects are seen in the lower aspect of the common bile duct. This could represent choledocholithiasis. No ductal dilatation. Similar appearance to prior. Fleischner guidelines were followed.
[2022-10-08 16:12] VITALS: BP 180/99; PULSE 95; O2SAT 100
[2022-10-08 21:30] VITALS: BP 113/63; PULSE 96; RESP 16; TEMP 36.4; O2SAT 98; BMI 25.4
[2022-10-08 23:20] VITALS: BP 100/61; PULSE 93; RESP 16; TEMP 36.6; O2SAT 99
--- NOTE | 2022-10-08 23:32 | MHC.EDTECH ---
PATIENT VITALS SIGN TAKEN ,URINE SAMPLE COLLECTED AND BLOOD DRAWN AND SENT TO LAB .
[2022-10-08 23:35] LABS: MANUAL DIFF FLAG NO
[2022-10-08 23:36] LABS: Basophils Percent Auto 0.3 % (0-2); Eosinophils Absolute Auto 0.1 X10*3/uL (0.0-0.4); Eosinophils Percent Auto 1.1 % (0-4); Hematocrit 32.8 % (37.0-47.0); Hemoglobin 11.1 g/dl (12.0-16.0); Imm Gran Abs Auto 0.02 X10*3/uL (0.00-0.03); Imm Gran Pct Auto 0.2 % (0.0-0.4); Lymphocytes Absolute Auto 4.6 X10*3/uL (1.2-4.9); Lymphocytes Percent Auto 41.6 % (20-40); Mean Corpuscular HGB Conc 33.8 g/dl (31.0-35.0); Mean Corpuscular Hemoglobin 28.3 pg (27.0-33.0); Mean Corpuscular Volume 83.7 fL (80.0-98.0); Mean Platelet Volume 8.6 fL (9.4-12.3); Monocytes Absolute Auto 0.6 X10*3/uL (0.1-1.2); Monocytes Percent Auto 5.6 % (2-11); Neutrophils Absolute Auto 5.7 x10*3/uL (2.0-8.3); Neutrophils Percent Auto 51.2 % (45-73); Platelet Count 211 X10*3/uL (160-400); Red Blood Count 3.92 X10*6/uL (4.20-5.50); Red Cell Distribution Width 13.9 % (11.0-16.0); White Blood Count 11.1 X10*3/uL (4.8-10.8)
[2022-10-08 23:38] LABS: Appearance Urine Turbid; Color Urine Yellow; Glucose Urine UA >=1000 mg/dL (Negative); Leukocyte Esterase Urine Large (3+) (Negative); Nitrite Urine Negative (Negative); UMIC TRIGGER UACC YES; Urine Blood Trace (Negative); Urine Ketones Negative (Negative); Urine Protein 100 (2+) mg/dL (Neg-Trace)
[2022-10-08 23:52] LABS: Bacteria Urine 4+ (None Seen); RBC Urine 0-2 /HPF (0-2); UACC Culture Trigger YES; WBC Urine >50 /HPF (0-5)
[2022-10-08 23:59] LABS: Alanine Aminotransferase 22 U/L (0-31); Albumin Level 3.8 g/dL (3.5-5.0); Alkaline Phosphatase 74 U/L (39-117); Anion Gap 17 (12-20); Aspartate Amino Transferase 17 U/L (5-31); Bilirubin Total 0.3 mg/dL (0.0-1.0); Blood Urea Nitrogen 25 mg/dL (9-16); Calcium 9.8 mg/dL (8.4-10.2); Carbon Dioxide 26 mmol/L (22-29); Chloride 97 mmol/L (96-108); Creatinine Clr Calc Pharmacy 49.3; Estimated Glomerular Filt Rate 54; Glucose Random 369 mg/dL (60-115); Potassium 4.7 mmol/L (3.3-5.1); Sodium 135 mmol/L (135-145); Total Protein 7.3 g/dL (6.5-8.0)
[2022-10-09] VITALS (7 sets, daily range): BP systolic 120–173; BP diastolic 63–81; PULSE 80–97; RESP 15–19; TEMP 36.6–37; O2SAT 98–100
--- NOTE | 2022-10-09 02:07 | PC.NURSE ---
Patient was received in bed with eyes open patient stated she was brought into the ER due to having pain in the abdomen that is tightening in the middle patient stated she does not smoke or drink patient stated she is a diabetic that takes insulin patient stated the last time she ate was at 5pm yesterday patient is AAOX4 patient will continue to be monitored for safety
[2022-10-09] MEDS: ondansetron HCL 4 MG/2 ML VIAL IVPUSH (02:54)
[2022-10-09] MEDS: HYDROmorphone HCl 0.5 MG/0.5 ML SYRINGE IVPUSH (02:54)
[2022-10-09] MEDS: cefTRIAXone sodium 1 GM in 0.9 % Sodium Chloride 50 ML IV (02:54)
[2022-10-09] MEDS: 0.9 % Sodium Chloride 1,000 ML 999 ML IV (02:57)
[2022-10-09 03:12] LABS: Lactic Acid 1.4 mmol/L (0.5-2.0)
--- NOTE | 2022-10-09 04:48 | PC.NURSE ---
Patient in bed with eyes open patient is focused on receiving oxygen patient was educated about the importance of not needing it due to patient is sating within normal limits patient had CT scan patient will continue to be monitored for safety
--- NOTE | 2022-10-09 05:37 | ED_ITS ---
HPI - Abdominal Pain General Chief Complaint: Abdominal Pain Stated Complaint: abd pain Time Seen by Provider: 10/09/22 01:48 History of Present Illness HPI narrative: Patient has a history of diabetes, hypertension, pyelonephritis, hyperglycemia presented today with having diffuse abdominal pain. Generalized malaise. Patient from home. No nausea no vomiting. No coughing or congestion or upper respiratory symptoms. Related Data Home Medications Medication Instructions Recorded Confirmed aspirin 81 mg tablet,delayed 1 tab PO DAILY 07/21/22 09/14/22 release atorvastatin 80 mg tablet 1 tab PO BEDTIME 07/21/22 09/14/22 insulin glargine 100 unit/mL (3 18 unit subcut BEDTIME 07/21/22 09/14/22 mL) subcutaneous pen (Lantus Solostar U-100 Insulin) insulin lispro 100 unit/mL See Protocol subcut TIDAC 07/21/22 09/14/22 subcutaneous pen metformin 1,000 mg tablet 1 tab PO BID 07/21/22 09/14/22 pioglitazone 30 mg tablet 1 tab PO DAILY 07/21/22 09/14/22 Previous Rx's Medication Instructions Recorded blood sugar diagnostic (FreeStyle #100 ea 10/02/22 Test strips) nitrofurantoin 100 mg PO Q12H 7 days #14 caps 10/02/22 monohydrate/macrocrystals 100 mg capsule (Macrobid) sulfamethoxazole 800 1 tab PO BID 7 days #14 tabs 10/09/22 mg-trimethoprim 160 mg tablet (Bactrim DS) Allergies Allergy/AdvReac Type Severity Reaction Status Date / Time shrimp Allergy Swelling Verified 10/02/22 07:48 Review of Systems Review of Systems Positive generalized malaise Yes all other systems are reviewed and are negative [facility] Past Medical History Attestation statement: The following information was validated with the patient. Medical History Anemia Brain lesion Depression HLD (hyperlipidemia) Iron deficiency anemia Type 2 diabetes mellitus Family History Family History Other Hypertension Social History Social History Household Members: Family Housing: Apartment Do you presently have visiting nurse or other home services: Yes Unable to assess alcohol history related to: Unable to respond Alcohol intake: never Patient Tobacco Use Status: Never used Tobacco Smoked in Last 30 Days: No Use of substances other than those prescribed or required for medical reasons: No Advance Directives: Yes Advance Directives on File: Yes Advance Directives Date on File: 06/19/21 Patient : No service: No Current occupational status: unemployed Physical Exam ED Vital Signs: Vital Signs - 24 hr 10/08/22 21:30 10/08/22 23:20 10/09/22 01:40 Temperature 97.5 F 97.8 F 98.6 F Pulse Rate 96 93 97 Respiratory Rate 16 16 15 Blood Pressure 113/63 100/61 161/78 H Pulse Oximetry 98 99 98 Oxygen Delivery Method Room Air Room Air Room Air 10/09/22 02:08 10/09/22 02:54 10/09/22 03:27 Temperature 97.9 F 98.4 F Pulse Rate 94 80 Respiratory Rate 16 19 16 Blood Pressure 147/66 H 140/80 H Pulse Oximetry 99 Oxygen Delivery Method Room Air 10/09/22 04:45 10/09/22 06:23 Temperature 98.4 F 97.9 F Pulse Rate 88 84 Respiratory Rate 18 15 Blood Pressure 173/81 H 129/65 Pulse Oximetry 100 Oxygen Delivery Method Room Air Room Air BMI result Body Mass Index 25.4 Appearance: Alert. Oriented X3. No acute distress. Eyes: Pupils equal, round and reactive to light. ENT: Pharynx normal. Neck: Normal inspection. Neck supple. No lymph nodes noted. No crepitus CVS: Normal heart rate and rhythm. Pulses normal. Normal S1 and S2 Respiratory: No respiratory distress. Breath sounds normal. No Wheezing. No rales Abdomen: Soft and nontender. No rigidity. No distention. good BS x4 Skin: Skin warm and dry. Normal skin color. Normal skin turgor. Extremities: No lower extremity edema. Neurovascular intact to all extremities. No Lacerations. No Rash Neuro: Oriented X 3. No motor deficit. No sensory deficit. Moving all extermities. No slurred speech Medical Decision Making Medical Decision Making MDM Narrative: Patient's white count was 11. Sugar initially was 369. Given IV fluids here in the emergency department. Urine showed signs of infection consistent with UTI. Cultures obtained lactate was 1.4 no evidence for severe sepsis. CT scan of the abdomen showed no acute changes. There was a question of common duct stone. However patient's liver enzymes are normal. CT finding is old. Will discharge patient home. Patient's repeat abdominal exam is soft nontender. Will start patient on antibiotic. A dose of Rocephin was given in the emergency department. The patient's case complicated by history of diabetes hypertension. There is no CVA tenderness. No pyelo. In stable condition Lab Data MDM Lab Attestation statement: I reviewed the patient's lab results. 10/08/22 23:29 10/08/22 13:40 Labs: Lab Results 10/08/22 10/08/22 10/08/22 Range/Units 13:40 23:29 23:29 WBC 11.1 H (4.8-10.8) X10*3/uL RBC 3.92 L (4.20-5.50) X10*6/uL Hgb 11.1 L (12.0-16.0) g/dl Hct 32.8 L (37.0-47.0) % MCV 83.7 (80.0-98.0) fL MCH 28.3 (27.0-33.0) pg MCHC 33.8 (31.0-35.0) g/dl RDW 13.9 (11.0-16.0) % Plt Count 211 (160-400) X10*3/uL MPV 8.6 L (9.4-12.3) fL Immature Gran % (Auto) 0.2 (0.0-0.4) % Neut % (Auto) 51.2 (45-73) % Lymph % (Auto) 41.6 H (20-40) % [place] % (Auto) 5.6 (2-11) % Eos % (Auto) 1.1 (0-4) % Baso % (Auto) 0.3 (0-2) % Lymph # (Auto) 4.6 (1.2-4.9) X10*3/uL [place] # (Auto) 0.6 (0.1-1.2) X10*3/uL Eos # (Auto) 0.1 (0.0-0.4) X10*3/uL Baso # (Auto) 0.0 (0.0-0.2) X10*3/uL Abs Immat Gran (auto) 0.02 (0.00-0.03) X10*3/uL Absolute Neuts (auto) 5.7 (2.0-8.3) x10*3/uL Absolute Nucleated RBC 0.000 (0.0-0.012) X10*3/uL Nucleated RBC % (auto) 0.0 (0.0-0.2) /100WBC Sodium 135 (135-145) mmol/L Potassium 4.7 D (3.3-5.1) mmol/L Chloride 97 (96-108) mmol/L Carbon Dioxide 26 (22-29) mmol/L Anion Gap 17 (12-20) BUN 25 H (9-16) mg/dL Creatinine 1.06 (0.5-1.4) mg/dL Estim Creat Clear Calc 49.3 Estimated GFR 54 POC Glucose (60-115) mg/dL Random Glucose 369 H* (60-115) mg/dL Lactic Acid (0.5-2.0) mmol/L Calcium 9.8 (8.4-10.2) mg/dL Total Bilirubin 0.3 (0.0-1.0) mg/dL AST 17 (5-31) U/L ALT 22 (0-31) U/L Alkaline Phosphatase 74 (39-117) U/L Total Protein 7.3 (6.5-8.0) g/dL Albumin 3.8 (3.5-5.0) g/dL Urine Color Yellow Urine Appearance Turbid Urine pH 6.0 (5.0-9.0) Ur Specific [place] 1.020 (1.005-1.025) Urine Protein 100 (2+) H (Neg-Trace) mg/dL Urine Glucose (UA) >=1000 H (Negative) mg/dL Urine Ketones Negative (Negative) mg/dL Urine Blood Trace H (Negative) Urine Nitrite Negative (Negative) Ur Leukocyte Esterase Large (3+) H (Negative) Urine RBC 0-2 (0-2) /HPF Urine WBC >50 H (0-5) /HPF Ur Squamous Epith Cells 3-5 (0-2) /HPF Urine Bacteria 4+ (None Seen) Hyaline Casts 6-10 (0-2) /LPF 10/09/22 10/09/22 Range/Units 02:52 05:43 WBC (4.8-10.8) X10*3/uL RBC (4.20-5.50) X10*6/uL Hgb (12.0-16.0) g/dl Hct (37.0-47.0) % MCV (80.0-98.0) fL MCH (27.0-33.0) pg MCHC (31.0-35.0) g/dl RDW (11.0-16.0) % Plt Count (160-400) X10*3/uL MPV (9.4-12.3) fL Immature Gran % (Auto) (0.0-0.4) % Neut % (Auto) (45-73) % Lymph % (Auto) (20-40) % [place] % (Auto) (2-11) % Eos % (Auto) (0-4) % Baso % (Auto) (0-2) % Lymph # (Auto) (1.2-4.9) X10*3/uL [place] # (Auto) (0.1-1.2) X10*3/uL Eos # (Auto) (0.0-0.4) X10*3/uL Baso # (Auto) (0.0-0.2) X10*3/uL Abs Immat Gran (auto) (0.00-0.03) X10*3/uL Absolute Neuts (auto) (2.0-8.3) x10*3/uL Absolute Nucleated RBC (0.0-0.012) X10*3/uL Nucleated RBC % (auto) (0.0-0.2) /100WBC Sodium (135-145) mmol/L Potassium (3.3-5.1) mmol/L Chloride (96-108) mmol/L Carbon Dioxide (22-29) mmol/L Anion Gap (12-20) BUN (9-16) mg/dL Creatinine (0.5-1.4) mg/dL Estim Creat Clear Calc Estimated GFR POC Glucose 313 H (60-115) mg/dL Random Glucose (60-115) mg/dL Lactic Acid 1.4 (0.5-2.0) mmol/L Calcium (8.4-10.2) mg/dL Total Bilirubin (0.0-1.0) mg/dL AST (5-31) U/L ALT (0-31) U/L Alkaline Phosphatase (39-117) U/L Total Protein (6.5-8.0) g/dL Albumin (3.5-5.0) g/dL Urine Color Urine Appearance Urine pH (5.0-9.0) Ur Specific [place] (1.005-1.025) Urine Protein (Neg-Trace) mg/dL Urine Glucose (UA) (Negative) mg/dL Urine Ketones (Negative) mg/dL Urine Blood (Negative) Urine Nitrite (Negative) Ur Leukocyte Esterase (Negative) Urine RBC (0-2) /HPF Urine WBC (0-5) /HPF Ur Squamous Epith Cells (0-2) /HPF Urine Bacteria (None Seen) Hyaline Casts (0-2) /LPF External Record Review External record reviewed: Inpatient record Chronic Conditions Patient?s care impacted by: Diabetes and Hypertension Medications Administered Discontinued Medications Generic Name Dose Route Start Last Admin Trade Name Freq PRN Reason Stop Dose Admin Hydromorphone HCl 0.5 mg 10/09/22 02:31 10/09/22 02:54 Hydromorphone Hcl 0.5 Mg/0.5 Ml Syringe IVPUSH 10/09/22 02:32 0.5 mg ONCE ONE Administration Protocol Sodium Chloride 1,000 mls @ 999 mls/hr 10/09/22 02:45 10/09/22 04:43 Ns IV 10/09/22 03:45 Infused .Q1H1M JM Infusion Ceftriaxone Sodium 1 gm/ 50 mls @ 100 mls/hr 10/09/22 02:42 10/09/22 03:50 Sodium Chloride IV 10/09/22 03:11 Infused ONCE ONE Infusion Iohexol 85 ml 10/09/22 05:37 10/09/22 05:38 Iohexol 350 Mg/Ml 100 Ml Infus..Btl IV 10/09/22 05:38 85 ml ONCE ONE Administration Ondansetron HCl 4 mg 10/09/22 02:31 10/09/22 02:54 Ondansetron Hcl 4 Mg/2 Ml Vial IVPUSH 10/09/22 02:32 4 mg ONCE ONE Administration Discharge Plan Discharge Clinical Impression: Urinary tract infection Patient Disposition: Home, Self-Care Instructions: Urinary Tract Infection in Older Adults (ED) Prescriptions: New sulfamethoxazole-trimethoprim [Bactrim DS] 800-160 mg tablet 1 tab PO BID 7 Days Qty: 14 0RF No Action atorvastatin 80 mg tablet 1 tab PO BEDTIME aspirin 81 mg tablet,delayed release (DR/EC) 1 tab PO DAILY metformin 1,000 mg tablet 1 tab PO BID pioglitazone 30 mg tablet 1 tab PO DAILY insulin lispro 100 unit/mL insulin pen See Protocol subcut TIDAC Protocol: Insulin Correction Scale Less than or equal to 110 ---- Give (units): 0 111 to 150 Give (units): 0 151 to 200 Give (units): 10 201 to 250 Give (units): 12 251 to 300 Give (units): 14 301 to 350 Give (units): 16 Greater than 350 Give (units): 18 Call MD if Blood Glucose > : 350 Rx Instructions: increase by 2 units per 50mg/dL insulin glargine [Lantus Solostar U-100 Insulin] 100 unit/mL (3 mL) insulin pen 18 unit subcut BEDTIME nitrofurantoin monohyd/m-cryst [Macrobid] 100 mg capsule 100 mg PO Q12H 7 Days Qty: 14 0RF Rx Instructions: must administer with a meal/food (DME) FreeStyle Test Strip See Rx Instructions .Route Qty: 100 0RF Rx Instructions: As directed Print Language: Icelandic
[2022-10-09] MEDS: iohexoL 350 MG/ML 100 ML INFUS..BTL 85 ML IV (05:38)
[2022-10-09 05:47] LABS: Glucose, Whole Blood 313 mg/dL (60-115)
== END 2022-10-09 08:37 | disposition home or self-care (01) ==
PROVIDERS: Emergency Provider Emergency Medicine Emergency Medical Services
DX: N39.0 Urinary tract infection, site not specified (principal); E11.9 Type 2 diabetes mellitus without complications; I10 Essential (primary) hypertension; Z79.82 Long term (current) use of aspirin; Z79.4 Long term (current) use of insulin; Z79.899 Other long term (current) drug therapy
CPT/HCPCS: 36415; 74177; 80053; 81001; 82947; 83605; 85025; 87040; 87086; 96365; 96375; 99285; J0696; J1170; J2405; Q9967

== ENCOUNTER 2022-10-15 03:45 | Emergency (ER) | payer MEDICAID, SELFPAY ==
[2022-10-15 03:49] VITALS: BP 179/86; BP 185/90; PULSE 100; PULSE 102; RESP 18; TEMP 36.7; O2SAT 100; O2SAT 98; BMI 21.9
--- NOTE | 2022-10-15 04:05 | ED_ITS ---
HPI - Abdominal Pain General Chief Complaint: Abdominal Pain Stated Complaint: abd pain Time Seen by Provider: 10/15/22 03:58 History of Present Illness HPI narrative: Patient is a 52-year-old female presents today with having abdominal pain. The pain is diffuse over the entire abdomen. Patient has been in the emergency department prior for similar pains. She [address] scan at that time. It showed a possible stone in the common bile duct a filling defect at the distal end of the common bile duct. This finding was old from a previous MRI and also from another CAT scan out done about a month ago. Patient denies any fever chills. No diaphoresis. She is from pain. No focal weakness. No chest pain or shortness of breath Related Data Home Medications Medication Instructions Recorded Confirmed aspirin 81 mg tablet,delayed 1 tab PO DAILY 07/21/22 09/14/22 release atorvastatin 80 mg tablet 1 tab PO BEDTIME 07/21/22 09/14/22 insulin glargine 100 unit/mL (3 18 unit subcut BEDTIME 07/21/22 09/14/22 mL) subcutaneous pen (Lantus Solostar U-100 Insulin) insulin lispro 100 unit/mL See Protocol subcut TIDAC 07/21/22 09/14/22 subcutaneous pen metformin 1,000 mg tablet 1 tab PO BID 07/21/22 09/14/22 pioglitazone 30 mg tablet 1 tab PO DAILY 07/21/22 09/14/22 Previous Rx's Medication Instructions Recorded blood sugar diagnostic (FreeStyle #100 ea 10/02/22 Test strips) nitrofurantoin 100 mg PO Q12H 7 days #14 caps 10/02/22 monohydrate/macrocrystals 100 mg capsule (Macrobid) sulfamethoxazole 800 1 tab PO BID 7 days #14 tabs 10/09/22 mg-trimethoprim 160 mg tablet (Bactrim DS) Allergies Allergy/AdvReac Type Severity Reaction Status Date / Time shrimp Allergy Swelling Verified 10/02/22 07:48 Review of Systems Review of Systems No chest pain or shortness breath no diaphoresis Positive abdominal pain No diarrhea Yes all other systems are reviewed and are negative PMFSH Past Medical History Attestation statement: The following information was validated with the patient. Medical History Anemia Brain lesion Depression HLD (hyperlipidemia) Iron deficiency anemia Type 2 diabetes mellitus Family History Family History Other Hypertension Social History Social History Household Members: Family Housing: Apartment Do you presently have visiting nurse or other home services: Yes Unable to assess alcohol history related to: Unable to respond Alcohol intake: never Patient Tobacco Use Status: Never used Tobacco Smoked in Last 30 Days: No Use of substances other than those prescribed or required for medical reasons: No Advance Directives: Yes Advance Directives on File: Yes Advance Directives Date on File: 06/19/21 Patient : No service: No Current occupational status: unemployed Physical Exam ED Vital Signs: Vital Signs - 24 hr 10/15/22 03:49 10/15/22 06:06 Temperature 98.0 F 97.7 F Pulse Rate 102 H 80 Respiratory Rate 18 13 Blood Pressure 185/90 H 137/68 Pulse Oximetry 100 99 Oxygen Delivery Method Room Air BMI result Body Mass Index 21.9 Appearance: Alert. Oriented X3. No acute distress. Eyes: Pupils equal, round and reactive to light. ENT: Pharynx normal. Neck: Normal inspection. Neck supple. No lymph nodes noted. No crepitus CVS: Normal heart rate and rhythm. Pulses normal. Normal S1 and S2 Respiratory: No respiratory distress. Breath sounds normal. No Wheezing. No rales Abdomen: Soft and nontender. No rigidity. No distention. good BS x4 Skin: Skin warm and dry. Normal skin color. Normal skin turgor. Extremities: No lower extremity edema. Neurovascular intact to all extremities. No Lacerations. No Rash Neuro: Oriented X 3. No motor deficit. No sensory deficit. Moving all extermities. No slurred speech Medical Decision Making Medical Decision Making MDM Narrative: Patient had multiple CT scans in the past. Also had an MRCP. There is a questionable lesion noted at the distal aspect of the common bile duct. However patient's liver enzymes are normal. She is well-appearing. She was given multiple doses of pain medication with good resolution of patient's symptoms. Will discharge patient home. [place] at this time no need for 3rd CT scan within the last month. Repeat exam patient's abdomen is soft nontender. Will discharge patient home. [place] given patient's duration of pain unlikely to have biliary issues at this time. Given the LFTs being normal Differential Diagnosis Abdominal pathology, pancreatitis, biliary issues, common duct stone, abscess, perforation Admission/Observation Consideration of admission/observation: Escalation of care including admission/observation considered Lab Data MDM Lab Attestation statement: I reviewed the patient's lab results. 10/15/22 04:06 10/15/22 04:06 Labs: Lab Results 10/15/22 10/15/22 10/15/22 Range/Units 03:57 04:06 04:06 WBC 7.4 (4.8-10.8) X10*3/uL RBC 3.09 L D (4.20-5.50) X10*6/uL Hgb 8.8 L D (12.0-16.0) g/dl Hct 26.3 L (37.0-47.0) % MCV 85.1 (80.0-98.0) fL MCH 28.5 (27.0-33.0) pg MCHC 33.5 (31.0-35.0) g/dl RDW 13.9 (11.0-16.0) % Plt Count 171 (160-400) X10*3/uL MPV 7.9 L (9.4-12.3) fL Immature Gran % (Auto) 0.4 (0.0-0.4) % Neut % (Auto) 39.0 L (45-73) % Lymph % (Auto) 51.3 H (20-40) % [place] % (Auto) 7.7 (2-11) % Eos % (Auto) 1.2 (0-4) % Baso % (Auto) 0.4 (0-2) % Lymph # (Auto) 3.8 (1.2-4.9) X10*3/uL [place] # (Auto) 0.6 (0.1-1.2) X10*3/uL Eos # (Auto) 0.1 (0.0-0.4) X10*3/uL Baso # (Auto) 0.0 (0.0-0.2) X10*3/uL Abs Immat Gran (auto) 0.03 (0.00-0.03) X10*3/uL Absolute Neuts (auto) 2.9 (2.0-8.3) x10*3/uL Absolute Nucleated RBC 0.000 (0.0-0.012) X10*3/uL Nucleated RBC % (auto) 0.0 (0.0-0.2) /100WBC Sodium 137 (135-145) mmol/L Potassium 3.1 L D (3.3-5.1) mmol/L Chloride 100 (96-108) mmol/L Carbon Dioxide 27 (22-29) mmol/L Anion Gap 13 (12-20) BUN 11 (9-16) mg/dL Creatinine 0.69 (0.5-1.4) mg/dL Estim Creat Clear Calc 91.6 Estimated GFR > 60 POC Glucose 163 H (60-115) mg/dL Random Glucose 153 H (60-115) mg/dL Calcium 8.8 D (8.4-10.2) mg/dL Total Bilirubin 0.2 (0.0-1.0) mg/dL Direct Bilirubin < 0.2 (0.0-0.5) mg/dL AST 21 (5-31) U/L ALT 16 (0-31) U/L Alkaline Phosphatase 60 (39-117) U/L Total Protein 6.0 L (6.5-8.0) g/dL Albumin 3.3 L (3.5-5.0) g/dL Lipase 66 (8-78) U/L External Record Review External record reviewed: Inpatient record Prescription Management I considered prescription management with: Pain Medication Medications Administered Discontinued Medications Generic Name Dose Route Start Last Admin Trade Name Emiliana PRN Reason Stop Dose Admin Hydromorphone HCl 0.5 mg 10/15/22 04:03 10/15/22 04:10 Hydromorphone Hcl 0.5 Mg/0.5 Ml Syringe IVPUSH 10/15/22 04:04 0.5 mg ONCE ONE Administration Protocol Sodium Chloride 1,000 mls @ 999 mls/hr 10/15/22 04:15 10/15/22 05:17 Ns IV 10/15/22 05:15 Infused .Q1H1M JM Infusion Ondansetron HCl 4 mg 10/15/22 04:03 10/15/22 04:10 Ondansetron Hcl 4 Mg/2 Ml Vial IVPUSH 10/15/22 04:04 4 mg ONCE ONE Administration Ondansetron HCl 4 mg 10/15/22 05:13 10/15/22 05:17 Ondansetron Hcl 4 Mg/2 Ml Vial IVPUSH 10/15/22 05:14 4 mg ONCE ONE Administration Discharge Plan Discharge Clinical Impression: Abdominal pain Patient Disposition: Home, Self-Care Instructions: Abdominal Pain (ED) Additional Instructions: Will need follow-up with your primary physician and GI physician for the nonspecific lesion noted on your common bile ducts Prescriptions: No Action atorvastatin 80 mg tablet 1 tab PO BEDTIME aspirin 81 mg tablet,delayed release (DR/EC) 1 tab PO DAILY metformin 1,000 mg tablet 1 tab PO BID pioglitazone 30 mg tablet 1 tab PO DAILY insulin lispro 100 unit/mL insulin pen See Protocol subcut TIDAC Protocol: Insulin Correction Scale Less than or equal to 110 ---- Give (units): 0 111 to 150 Give (units): 0 151 to 200 Give (units): 10 201 to 250 Give (units): 12 251 to 300 Give (units): 14 301 to 350 Give (units): 16 Greater than 350 Give (units): 18 Call MD if Blood Glucose > : 350 Rx Instructions: increase by 2 units per 50mg/dL insulin glargine [Lantus Solostar U-100 Insulin] 100 unit/mL (3 mL) insulin pen 18 unit subcut BEDTIME nitrofurantoin monohyd/m-cryst [Macrobid] 100 mg capsule 100 mg PO Q12H 7 Days Qty: 14 0RF Rx Instructions: must administer with a meal/food (DME) FreeStyle Test Strip See Rx Instructions .Route Qty: 100 0RF Rx Instructions: As directed sulfamethoxazole-trimethoprim [Bactrim DS] 800-160 mg tablet 1 tab PO BID 7 Days Qty: 14 0RF Referrals: Antoinette iLma MD [Physician] - 10/17/22 Physician,Dwayne Romeo [Primary Care Provider] - 10/17/22 Print Language: Macedonian
[2022-10-15 04:08] LABS: Glucose, Whole Blood 163 mg/dL (60-115)
[2022-10-15 04:10] LABS: Basophils Percent Auto 0.4 % (0-2); Eosinophils Absolute Auto 0.1 X10*3/uL (0.0-0.4); Eosinophils Percent Auto 1.2 % (0-4); Hematocrit 26.3 % (37.0-47.0); Hemoglobin 8.8 g/dl (12.0-16.0); Imm Gran Abs Auto 0.03 X10*3/uL (0.00-0.03); Imm Gran Pct Auto 0.4 % (0.0-0.4); Lymphocytes Absolute Auto 3.8 X10*3/uL (1.2-4.9); Lymphocytes Percent Auto 51.3 % (20-40); MANUAL DIFF FLAG NO; Mean Corpuscular HGB Conc 33.5 g/dl (31.0-35.0); Mean Corpuscular Hemoglobin 28.5 pg (27.0-33.0); Mean Corpuscular Volume 85.1 fL (80.0-98.0); Mean Platelet Volume 7.9 fL (9.4-12.3); Monocytes Absolute Auto 0.6 X10*3/uL (0.1-1.2); Monocytes Percent Auto 7.7 % (2-11); Neutrophils Absolute Auto 2.9 x10*3/uL (2.0-8.3); Platelet Count 171 X10*3/uL (160-400); Red Blood Count 3.09 X10*6/uL (4.20-5.50); Red Cell Distribution Width 13.9 % (11.0-16.0); White Blood Count 7.4 X10*3/uL (4.8-10.8)
[2022-10-15] MEDS: HYDROmorphone HCl 0.5 MG/0.5 ML SYRINGE IVPUSH (04:10)
[2022-10-15] MEDS: ondansetron HCL 4 MG/2 ML VIAL IVPUSH ×2 (04:10→05:17)
[2022-10-15] MEDS: 0.9 % Sodium Chloride 1,000 ML 999 ML IV (04:12)
[2022-10-15 04:36] LABS: Alanine Aminotransferase 16 U/L (0-31); Albumin Level 3.3 g/dL (3.5-5.0); Alkaline Phosphatase 60 U/L (39-117); Anion Gap 13 (12-20); Aspartate Amino Transferase 21 U/L (5-31); Bilirubin Direct < 0.2 mg/dL (0.0-0.5); Bilirubin Total 0.2 mg/dL (0.0-1.0); Blood Urea Nitrogen 11 mg/dL (9-16); Calcium 8.8 mg/dL (8.4-10.2); Carbon Dioxide 27 mmol/L (22-29); Chloride 100 mmol/L (96-108); Creatinine Clr Calc Pharmacy 91.6; Estimated Glomerular Filt Rate > 60; Glucose Random 153 mg/dL (60-115); Lipase 66 U/L (8-78); Potassium 3.1 mmol/L (3.3-5.1); Sodium 137 mmol/L (135-145)
[2022-10-15 06:06] VITALS: BP 137/68; PULSE 80; RESP 13; TEMP 36.5; O2SAT 99
--- NOTE | 2022-10-15 07:45 | PC.NURSE ---
called the son for a potato picker but no answer, left a message
[2022-10-15 08:56] VITALS: BP 151/83; PULSE 95; RESP 15; TEMP 36.5; O2SAT 100
--- NOTE | 2022-10-15 09:26 | PC.NURSE ---
PT LIVES ALONE, C/O DIZZY AND UNSTEADY ON FEET. MD AWARE, PT CONSULT ORDERED
[2022-10-15 09:33] LABS: Glucose, Whole Blood 190 mg/dL (60-115)
--- NOTE | 2022-10-15 12:00 | PC.NURSE ---
pt discharged home via hospital shuttle. meal given prior to discharg.
[2022-10-15 12:14] VITALS: BP 154/59; PULSE 98; RESP 14; O2SAT 99
--- NOTE | 2022-10-17 08:22 | MHC.CM.ED ---
Case management consult ordered 10/15 to help arrange home [facility]. [facility] is able to accept patient.
== END 2022-10-15 13:00 | disposition home or self-care (01) ==
PROVIDERS: Emergency Provider Emergency Medicine Emergency Medical Services; PCP Internal Medicine
DX: R10.9 Unspecified abdominal pain (principal); G93.9 Disorder of brain, unspecified; D50.9 Iron deficiency anemia, unspecified; E78.5 Hyperlipidemia, unspecified; E11.9 Type 2 diabetes mellitus without complications; Z99.89 Dependence on other enabling machines and devices
CPT/HCPCS: 36415; 80048; 80076; 82947; 83690; 85025; 96361; 96374; 96375; 96376; 97161; 99285; J1170; J2405

== ENCOUNTER 2022-10-17 18:02 | Emergency (ER) | payer MEDICAID, SELFPAY ==
--- NOTE | ~2022-10-17 | XR_ITS ---
EXAMINATION: XR CHEST CLINICAL INFORMATION: Fall. Pain. COMPARISON: Chest x-ray 07/21/2022. CT chest 07/21/2022 TECHNIQUE: 2 views of the chest were obtained. FINDINGS: No significant abnormality is noted involving the heart, lungs, mediastinum, bony thorax or soft tissues. Surgical clips right upper quadrant of abdomen. XR/XR chest 2V IMPRESSION: Unremarkable examination.
--- NOTE | ~2022-10-17 | CT_ITS ---
EXAMINATION: CT abdomen pelvis wo IV con CLINICAL INFORMATION: Reason for Exam s/p fall and back pain COMPARISON: Prior CT scan from 10/09/2022 TECHNIQUE: Multidetector volumetric imaging was performed from the superior aspect of the liver through the pubic symphysis , noncontrasted study. Sagittal and coronal reformatted images were obtained on the technologist's workstation. This CT examination was performed using dose optimization techniques as appropriate, variously including the following: *Automated exposure control *Adjustment of mA and/or kV according to patient size (this includes techniques or standardized protocols for targeted exams where dose is matched to indication/reason for exam; i.e. extremities or head) *Use of iterative reconstruction technique DLP: 442 mGy-cm FINDINGS: Exam limited due to lack of contrast. LOWER THORAX: Included lung bases are clear. HEPATOBILIARY: No focal hepatic lesions. No biliary ductal dilatation. GALLBLADDER: Gallbladder has been removed. SPLEEN: Spleen is normal in size. PANCREAS: No focal mass or ductal dilatation. STOMACH AND GASTROINTESTINAL TRACT: Stomach is grossly unremarkable. There is no bowel distention or thickening. Normal appendix identified. ADRENALS: No adrenal nodules. KIDNEYS/URETERS: Both kidneys are normal size and contour. There is mild bilateral hydronephrosis and hydroureters, right more than left, no perinephric fat stranding, no obstructing kidney stones found. This is nonspecific and could be due to vesicoureteric reflux, distal outflow obstruction, along others. URINARY BLADDER: Urinary bladder is extremely distended bulging into the abdomen. PELVIC VISCERA: Unremarkable PERITONEUM: No free air or fluid. LYMPH NODES: No lymphadenopathy. VASCULAR:Abdominal aorta normal in size, no aneurysm found. BONES, ABDOMINAL WALL AND SOFT TISSUES: Age-appropriate changes of the spine and skeletal system, no destructive osteolytic or osteosclerotic bone lesion found CT/CT abdomen pelvis wo IV con IMPRESSION: Exam limited due to lack of contrast. Assessment for possible solid organ injury is limited. * Urinary bladder is extremely distended bulging into the abdomen. Consider decompression. * There are bilateral mild hydronephrosis and hydroureters, this is nonspecific and could be due to vesicoureteric reflux, newly developed since prior CT of 10/09/2022. May consider reassess after decompression of the urinary bladder with an ultrasound. * Status post cholecystectomy. * No CT evidence of acute fractures or internal injuries.
[2022-10-17 18:13] VITALS: BP 190/100; PULSE 107; O2SAT 94
[2022-10-17 18:26] VITALS: BMI 28.4
[2022-10-17 18:34] VITALS: BP 218/80; PULSE 97; RESP 18; TEMP 37; O2SAT 96
--- NOTE | 2022-10-17 18:55 | ED_ITS ---
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 Patient is complaining of low back pain and abdominal pain. No headache, no LOC, no arrhythmias, no neck pain, no CP, no SOB, no nausea, no vomiting, no diarrhea. Related Data Home Medications Medication Instructions Recorded Confirmed aspirin 81 mg tablet,delayed 1 tab PO DAILY 07/21/22 09/14/22 release atorvastatin 80 mg tablet 1 tab PO BEDTIME 07/21/22 09/14/22 insulin glargine 100 unit/mL (3 18 unit subcut BEDTIME 07/21/22 09/14/22 mL) subcutaneous pen (Lantus Solostar U-100 Insulin) insulin lispro 100 unit/mL See Protocol subcut TIDAC 07/21/22 09/14/22 subcutaneous pen metformin 1,000 mg tablet 1 tab PO BID 07/21/22 09/14/22 pioglitazone 30 mg tablet 1 tab PO DAILY 07/21/22 09/14/22 Previous Rx's Medication Instructions Recorded blood sugar diagnostic (FreeStyle #100 ea 10/02/22 Test strips) nitrofurantoin 100 mg PO Q12H 7 days #14 caps 10/02/22 monohydrate/macrocrystals 100 mg capsule (Macrobid) sulfamethoxazole 800 1 tab PO BID 7 days #14 tabs 10/09/22 mg-trimethoprim 160 mg tablet (Bactrim DS) oxycodone 5 mg tablet 5 mg PO Q8H PRN pain #10 tabs 10/18/22 Allergies Allergy/AdvReac Type Severity Reaction Status Date / Time shrimp Allergy Swelling Verified 10/02/22 07:48 Review of Systems Review of Systems: All other systems are reviewed and are negative Constitutional: Reports as per HPI and Reports no additional constitutional complaints Eyes: Reports as per HPI and Reports no additional eye complaints Reports system reviewed and no additional complaints, except as documented Cardiovascular: Reports as per HPI and Reports no additional cardiovascular complaints Respiratory: Reports as per HPI and Reports no additional respiratory complaints Gastrointestinal: Reports as per HPI and Reports no additional gastrointestinal complaints Genitourinary: Reports no additional female genitourinary complaints Musculoskeletal: Reports no additional musculoskeletal complaints Skin/Breast: Reports system reviewed and no additional complaints, except as docu Psychiatric: Reports no additional psychiatric complaints Endocrine: Reports no additional endocrine complaints Hematologic/Lymphatic: Reports no additional hematologic/lymphatic complaints Allergic/Immunologic: Reports no additional allergic/immunologic complaints Reports system reviewed and no additional complaints, except as documented and Reports Abnormal speech present [facility] Past Medical History Medical History Anemia Brain lesion Depression HLD (hyperlipidemia) Iron deficiency anemia Type 2 diabetes mellitus Family History Family History Other Hypertension Social History Social History Household Members: Family Housing: Apartment Do you presently have visiting nurse or other home services: Yes Unable to assess alcohol history related to: Unable to respond Alcohol intake: never Patient Tobacco Use Status: Never used Tobacco Smoked in Last 30 Days: No Use of substances other than those prescribed or required for medical reasons: No Advance Directives: Yes Advance Directives on File: Yes Advance Directives Date on File: 06/19/21 service: No Current occupational status: unemployed Physical Exam ED Vital Signs: Vital Signs - 24 hr 10/17/22 18:34 10/17/22 19:51 10/17/22 21:49 Temperature 98.6 F 98.7 F 98.6 F Pulse Rate 97 95 98 Respiratory Rate 18 16 18 Blood Pressure 218/80 H 206/80 H 171/71 H Pulse Oximetry 96 95 99 Oxygen Delivery Method Room Air Room Air Room Air BMI result Body Mass Index 28.4 Vital signs have been reviewed as appeared to be correct. Blood pressure chantal l. Heart rate normal. Respiration rate normal. Temperature normal. Oxygen saturation normal. Appearance: Alert. Oriented X3. No acute distress. Head: Normal external exam. Normocephalic. Atraumatic. No Heath signs noted. No raccoon eyes noted Eyes: PERRLA. EOMI. Conjunctiva and sclera normal. Eyelids normal. ENT: TM's Normal. Pharynx normal. Uvula midline. Moist mucous membranes. No trismus noted. No drooling noted. No muffled voice noted. Neck: Normal inspection. Neck supple. FROM. No adenopathy. Thyroid Normal. No meningeal signs. No neck mass noted. CVS: Normal heart rate and rhythm. Heart sound normal. No murmurs noted. Pulses normal throughout. Respiratory: No respiratory distress. Painless inspiration. Breath sounds normal. No wheezes/rales/rhonchi noted. Chest nontender. No accessory muscle usage noted or decreased air movement noted. Abdomen: Soft and nontender. Bowel sounds normal in all 4 quadrants. No distention noted. No organomegaly noted. No visible injury noted. Back: No CVA tenderness. Full range of motion noted. Skin: Skin warm and dry. Normal skin color. Normal skin turgor. No rashes/lesions/lacerations noted. Extremities: No lower extremity edema. Extremities exhibit normal range of motion. Extremities nontender. Neuro: Oriented X 3. Cranial nerve exam: II-XII are grossly intact No motor deficit. No sensory deficit. Reflexes normal. Course Course Course Narrative: Status post mechanical fall with back/abdominal contusion, patient is able to ambulate in the emergency department. Will discharge patient on oxycodone Medications Administered Discontinued Medications Generic Name Dose Route Start Last Admin Trade Name Freq PRN Reason Stop Dose Admin Oxycodone HCl 5 mg 10/17/22 22:32 10/17/22 22:36 Oxycodone Hcl Immed Release 5 Mg Tablet PO 10/17/22 22:33 5 mg ONCE ONE Administration Medical Decision Making Differential Diagnosis Differential Diagnoses: The differential diagnosis associated with the presentation includes (Chest wall contusion, abdominal wall contusion, internal abdominal organ injury, electrolyte abnormalities, severe anemia.) Admission/Observation Consideration of admission/observation: Escalation of care including admission/observation considered Lab Data MDM Lab Attestation statement: I reviewed the patient's lab results. 10/17/22 19:46 10/17/22 19:46 Labs: Lab Results 10/17/22 10/17/22 10/17/22 Range/Units 19:46 19:46 19:46 WBC 7.8 (4.8-10.8) X10*3/uL RBC 3.45 L (4.20-5.50) X10*6/uL Hgb 9.9 L (12.0-16.0) g/dl Hct 29.7 L (37.0-47.0) % MCV 86.1 (80.0-98.0) fL MCH 28.7 (27.0-33.0) pg MCHC 33.3 (31.0-35.0) g/dl RDW 14.5 (11.0-16.0) % Plt Count 202 (160-400) X10*3/uL MPV 8.1 L (9.4-12.3) fL Immature Gran % (Auto) 0.5 H (0.0-0.4) % Neut % (Auto) 54.1 (45-73) % Lymph % (Auto) 37.7 (20-40) % [place] % (Auto) 6.1 (2-11) % Eos % (Auto) 1.3 (0-4) % Baso % (Auto) 0.3 (0-2) % Lymph # (Auto) 3.0 (1.2-4.9) X10*3/uL [place] # (Auto) 0.5 (0.1-1.2) X10*3/uL Eos # (Auto) 0.1 (0.0-0.4) X10*3/uL Baso # (Auto) 0.0 (0.0-0.2) X10*3/uL Abs Immat Gran (auto) 0.04 H (0.00-0.03) X10*3/uL Absolute Neuts (auto) 4.2 (2.0-8.3) x10*3/uL Absolute Nucleated RBC 0.000 (0.0-0.012) X10*3/uL Nucleated RBC % (auto) 0.0 (0.0-0.2) /100WBC Sodium 144 (135-145) mmol/L Potassium 4.3 D (3.3-5.1) mmol/L Chloride 106 (96-108) mmol/L Carbon Dioxide 31 H (22-29) mmol/L Anion Gap 11 L (12-20) BUN 8 L (9-16) mg/dL Creatinine 0.61 (0.5-1.4) mg/dL Estim Creat Clear Calc 101.9 Estimated GFR > 60 Random Glucose 189 H (60-115) mg/dL Calcium 9.9 D (8.4-10.2) mg/dL Total Bilirubin 0.3 (0.0-1.0) mg/dL Direct Bilirubin 0.1 (0.0-0.5) mg/dL AST 112 H (5-31) U/L ALT 115 H (0-31) U/L Alkaline Phosphatase 90 (39-117) U/L Troponin I High Sens 8.4 D (<3.5-17.0) ng/L Total Protein 7.3 (6.5-8.0) g/dL Albumin 3.5 (3.5-5.0) g/dL Lipase 25 (8-78) U/L Urine Color Urine Appearance Urine pH (5.0-9.0) Ur Specific [place] (1.005-1.025) Urine Protein (Neg-Trace) mg/dL Urine Glucose (UA) (Negative) mg/dL Urine Ketones (Negative) mg/dL Urine Blood (Negative) Urine Nitrite (Negative) Ur Leukocyte Esterase (Negative) Urine RBC (0-2) /HPF Urine WBC (0-5) /HPF Ur Squamous Epith Cells (0-2) /HPF Urine Bacteria (None Seen) Hyaline Casts (0-2) /LPF 10/17/22 Range/Units 19:46 WBC (4.8-10.8) X10*3/uL RBC (4.20-5.50) X10*6/uL Hgb (12.0-16.0) g/dl Hct (37.0-47.0) % MCV (80.0-98.0) fL MCH (27.0-33.0) pg MCHC (31.0-35.0) g/dl RDW (11.0-16.0) % Plt Count (160-400) X10*3/uL MPV (9.4-12.3) fL Immature Gran % (Auto) (0.0-0.4) % Neut % (Auto) (45-73) % Lymph % (Auto) (20-40) % [place] % (Auto) (2-11) % Eos % (Auto) (0-4) % Baso % (Auto) (0-2) % Lymph # (Auto) (1.2-4.9) X10*3/uL [place] # (Auto) (0.1-1.2) X10*3/uL Eos # (Auto) (0.0-0.4) X10*3/uL Baso # (Auto) (0.0-0.2) X10*3/uL Abs Immat Gran (auto) (0.00-0.03) X10*3/uL Absolute Neuts (auto) (2.0-8.3) x10*3/uL Absolute Nucleated RBC (0.0-0.012) X10*3/uL Nucleated RBC % (auto) (0.0-0.2) /100WBC Sodium (135-145) mmol/L Potassium (3.3-5.1) mmol/L Chloride (96-108) mmol/L Carbon Dioxide (22-29) mmol/L Anion Gap (12-20) BUN (9-16) mg/dL Creatinine (0.5-1.4) mg/dL Estim Creat Clear Calc Estimated GFR Random Glucose (60-115) mg/dL Calcium (8.4-10.2) mg/dL Total Bilirubin (0.0-1.0) mg/dL Direct Bilirubin (0.0-0.5) mg/dL AST (5-31) U/L ALT (0-31) U/L Alkaline Phosphatase (39-117) U/L Troponin I High Sens (<3.5-17.0) ng/L Total Protein (6.5-8.0) g/dL Albumin (3.5-5.0) g/dL Lipase (8-78) U/L Urine Color Yellow Urine Appearance Clear Urine pH 7.0 (5.0-9.0) Ur Specific K[place]um <= 1.005 (1.005-1.025) Urine Protein 100 (2+) H (Neg-Trace) mg/dL Urine Glucose (UA) 250 H (Negative) mg/dL Urine Ketones Negative (Negative) mg/dL Urine Blood Trace H (Negative) Urine Nitrite Negative (Negative) Ur Leukocyte Esterase Negative (Negative) Urine RBC 0-2 (0-2) /HPF Urine WBC 0-5 (0-5) /HPF Ur Squamous Epith Cells 0-2 (0-2) /HPF Urine Bacteria None Seen (None Seen) Hyaline Casts 0-2 (0-2) /LPF Independent Interpretation I performed an independent interpretation of an: Plain X-Ray (Chest: No acute intrathoracic pathology.) and CT Scan (Abdomen and pelvis: No acute intra- abdominal injury.) Radiology Impression Discussion of test interpretation with radiology: I have reviewed the radiologist's reading. Discharge Plan Discharge Clinical Impression: Fall, Abdominal wall contusion Patient Disposition: Home, Self-Care Instructions: Contusion in Adults (ED) Prescriptions: New oxycodone 5 mg tablet 5 mg PO Q8H PRN (Reason: pain) Qty: 10 0RF Rx Instructions: Partial Fill upon patient request. No Action atorvastatin 80 mg tablet 1 tab PO BEDTIME aspirin 81 mg tablet,delayed release (DR/EC) 1 tab PO DAILY metformin 1,000 mg tablet 1 tab PO BID pioglitazone 30 mg tablet 1 tab PO DAILY insulin lispro 100 unit/mL insulin pen See Protocol subcut TIDAC Protocol: Insulin Correction Scale Less than or equal to 110 ---- Give (units): 0 111 to 150 Give (units): 0 151 to 200 Give (units): 10 201 to 250 Give (units): 12 251 to 300 Give (units): 14 301 to 350 Give (units): 16 Greater than 350 Give (units): 18 Call MD if Blood Glucose > : 350 Rx Instructions: increase by 2 units per 50mg/dL insulin glargine [Lantus Solostar U-100 Insulin] 100 unit/mL (3 mL) insulin pen 18 unit subcut BEDTIME nitrofurantoin monohyd/m-cryst [Macrobid] 100 mg capsule 100 mg PO Q12H 7 Days Qty: 14 0RF Rx Instructions: must administer with a meal/food (DME) FreeStyle Test Strip See Rx Instructions .Route Qty: 100 0RF Rx Instructions: As directed sulfamethoxazole-trimethoprim [Bactrim DS] 800-160 mg tablet 1 tab PO BID 7 Days Qty: 14 0RF Referrals: Neelima Brown MD [Primary Care Provider] -
[2022-10-17 19:51] VITALS: BP 206/80; PULSE 95; RESP 16; TEMP 37.1; O2SAT 95
[2022-10-17 19:51] LABS: MANUAL DIFF FLAG NO
[2022-10-17 19:53] LABS: Basophils Percent Auto 0.3 % (0-2); Eosinophils Absolute Auto 0.1 X10*3/uL (0.0-0.4); Eosinophils Percent Auto 1.3 % (0-4); Hematocrit 29.7 % (37.0-47.0); Hemoglobin 9.9 g/dl (12.0-16.0); Imm Gran Abs Auto 0.04 X10*3/uL (0.00-0.03); Imm Gran Pct Auto 0.5 % (0.0-0.4); Lymphocytes Percent Auto 37.7 % (20-40); Mean Corpuscular HGB Conc 33.3 g/dl (31.0-35.0); Mean Corpuscular Hemoglobin 28.7 pg (27.0-33.0); Mean Corpuscular Volume 86.1 fL (80.0-98.0); Mean Platelet Volume 8.1 fL (9.4-12.3); Monocytes Absolute Auto 0.5 X10*3/uL (0.1-1.2); Monocytes Percent Auto 6.1 % (2-11); Neutrophils Absolute Auto 4.2 x10*3/uL (2.0-8.3); Neutrophils Percent Auto 54.1 % (45-73); Platelet Count 202 X10*3/uL (160-400); Red Blood Count 3.45 X10*6/uL (4.20-5.50); Red Cell Distribution Width 14.5 % (11.0-16.0); White Blood Count 7.8 X10*3/uL (4.8-10.8)
[2022-10-17 19:54] LABS: Appearance Urine Clear; Color Urine Yellow; Glucose Urine UA 250 mg/dL (Negative); Leukocyte Esterase Urine Negative (Negative); Nitrite Urine Negative (Negative); Specific Gravity - Urine <= 1.005 (1.005-1.025); UMIC TRIGGER UACC YES; Urine Blood Trace (Negative); Urine Ketones Negative (Negative); Urine Protein 100 (2+) mg/dL (Neg-Trace)
[2022-10-17 19:56] LABS: Bacteria Urine None Seen (None Seen); Hyaline Casts Urine 0-2 /LPF (0-2); RBC Urine 0-2 /HPF (0-2); Squamous Epithelial Cell Urine 0-2 /HPF (0-2); WBC Urine 0-5 /HPF (0-5)
[2022-10-17 20:09] LABS: Alanine Aminotransferase 115 U/L (0-31); Albumin Level 3.5 g/dL (3.5-5.0); Alkaline Phosphatase 90 U/L (39-117); Anion Gap 11 (12-20); Aspartate Amino Transferase 112 U/L (5-31); Bilirubin Direct 0.1 mg/dL (0.0-0.5); Bilirubin Total 0.3 mg/dL (0.0-1.0); Blood Urea Nitrogen 8 mg/dL (9-16); Calcium 9.9 mg/dL (8.4-10.2); Carbon Dioxide 31 mmol/L (22-29); Chloride 106 mmol/L (96-108); Creatinine Clr Calc Pharmacy 101.9; Estimated Glomerular Filt Rate > 60; Glucose Random 189 mg/dL (60-115); Lipase 25 U/L (8-78); Potassium 4.3 mmol/L (3.3-5.1); Sodium 144 mmol/L (135-145); Total Protein 7.3 g/dL (6.5-8.0)
[2022-10-17 20:17] LABS: Troponin-I High Sensitivity 8.4 ng/L (<3.5-17.0)
[2022-10-17 21:49] VITALS: BP 171/71; PULSE 98; RESP 18; TEMP 37; O2SAT 99
--- NOTE | 2022-10-17 22:09 | MHC.EDTECH ---
Around 20:00 this tech put a bedpan for patient to void and had to change bed sheet and gown as urine over flow the bedpan.
[2022-10-17] MEDS: oxyCODONE HCl Immed Release 5 MG TABLET PO (22:36)
--- NOTE | 2022-10-17 22:41 | PC.NURSE ---
Pt assisted with bedpan, voided successfully.
--- NOTE | 2022-10-18 00:34 | PC.NURSE ---
Pt ambulated with one assist, no complaints or complications. Pt is waiting for ambulance transport to go home.
--- NOTE | 2022-10-18 00:42 | MHC.EDTECH ---
call out to [facility] for transport back home at 0031, estimated eta was 1 hour
== END 2022-10-18 01:56 | disposition home or self-care (01) ==
PROVIDERS: Emergency Provider Emergency Medicine; PCP Internal Medicine
DX: S30.1XXA Contusion of abdominal wall, initial encounter (principal); W01.0XXA Fall on same level from slipping, tripping and stumbling without subsequent striking against object, initial encounter; Y93.9 Activity, unspecified; Y92.9 Unspecified place or not applicable; Y99.9 Unspecified external cause status; M54.50 Low back pain, unspecified
CPT/HCPCS: 36415; 71046; 74176; 80048; 80076; 81001; 83690; 84484; 85025; 99284

== ENCOUNTER 2022-10-18 02:23 | Emergency (ER) | payer MEDICAID, SELFPAY ==
[2022-10-18] VITALS (7 sets, daily range): BP systolic 142–203; BP diastolic 59–91; PULSE 83–98; RESP 12–18; TEMP 36.3–36.8; O2SAT 96–98; BMI 25.4
--- NOTE | 2022-10-18 02:51 | ED.FALL ---
HPI - Fall General Chief Complaint: General Medical Stated Complaint: Fall/ ambulance returning Time Seen by Provider: 10/18/22 02:47 Source: patient and EMS Mode of arrival: EMS Limitations: no limitations History of Present Illness HPI Narrative: Patient just seen and discharge unable to get her son phone number , was given the wrong number now her son called and he is at home to accept the patient back Related Data Home Medications Medication Instructions Recorded Confirmed aspirin 81 mg tablet,delayed 1 tab PO DAILY 07/21/22 09/14/22 release atorvastatin 80 mg tablet 1 tab PO BEDTIME 07/21/22 09/14/22 insulin glargine 100 unit/mL (3 18 unit subcut BEDTIME 07/21/22 09/14/22 mL) subcutaneous pen (Lantus Solostar U-100 Insulin) insulin lispro 100 unit/mL See Protocol subcut TIDAC 07/21/22 09/14/22 subcutaneous pen metformin 1,000 mg tablet 1 tab PO BID 07/21/22 09/14/22 pioglitazone 30 mg tablet 1 tab PO DAILY 07/21/22 09/14/22 Previous Rx's Medication Instructions Recorded blood sugar diagnostic (FreeStyle #100 ea 10/02/22 Test strips) nitrofurantoin 100 mg PO Q12H 7 days #14 caps 10/02/22 monohydrate/macrocrystals 100 mg capsule (Macrobid) sulfamethoxazole 800 1 tab PO BID 7 days #14 tabs 10/09/22 mg-trimethoprim 160 mg tablet (Bactrim DS) oxycodone 5 mg tablet 5 mg PO Q8H PRN pain #10 tabs 10/18/22 Allergies Allergy/AdvReac Type Severity Reaction Status Date / Time shrimp Allergy Swelling Verified 10/02/22 07:48 Review of Systems Review of Systems: Yes all other systems are reviewed and are negative PMFSH Past Medical History Medical History Anemia Brain lesion Depression HLD (hyperlipidemia) Iron deficiency anemia Type 2 diabetes mellitus Family History Family History Other Hypertension Social History Social History Household Members: Family Housing: Apartment Do you presently have visiting nurse or other home services: Yes Unable to assess alcohol history related to: Unable to respond Alcohol intake: never Patient Tobacco Use Status: Never used Tobacco Advance Directives: Yes Advance Directives on File: Yes Advance Directives Date on File: 06/19/21 service: No Current occupational status: unemployed Physical Exam Vital Signs: Vital Signs: Last Vital Signs Temp 98.0 F 10/18/22 02:45 Pulse 83 10/18/22 02:45 Resp 16 10/18/22 02:45 BP 199/83 H 10/18/22 02:45 Pulse Ox 98 10/18/22 02:45 O2 Del Method Room Air 10/18/22 02:45 BMI result Body Mass Index 25.4 Appearance: Alert. Oriented X3. No acute distress. ENT: Pharynx normal. Oral Mucosa moist Neck: Normal inspection. Neck supple. CVS: Normal heart rate and rhythm. Pulses normal. Respiratory: No respiratory distress. Equal air entry bilateral, Abdomen: Soft and nontender. Bowel sounds are present, Skin: Skin warm and dry. Normal skin color. Normal skin turgor. Extremities: No lower extremity edema. No calf tenderness Neuro: Oriented X 3. No motor deficit. Medical Decision Making Medical Decision Making [facility] Narrative: Patient does not feel safe at home walks with walker does not sing has enough help at home will get Case management for placement Discharge Plan Discharge Clinical Impression: Fall Patient Disposition: Home, Self-Care Instructions: Fall Prevention (ED) Additional Instructions: Care and cautions as advised Prescriptions: No Action atorvastatin 80 mg tablet 1 tab PO BEDTIME aspirin 81 mg tablet,delayed release (DR/EC) 1 tab PO DAILY metformin 1,000 mg tablet 1 tab PO BID pioglitazone 30 mg tablet 1 tab PO DAILY insulin lispro 100 unit/mL insulin pen See Protocol subcut TIDA Protocol: Insulin Correction Scale Less than or equal to 110 ---- Give (units): 0 111 to 150 Give (units): 0 151 to 200 Give (units): 10 201 to 250 Give (units): 12 251 to 300 Give (units): 14 301 to 350 Give (units): 16 Greater than 350 Give (units): 18 Call MD if Blood Glucose > : 350 Rx Instructions: increase by 2 units per 50mg/dL insulin glargine [Lantus Solostar U-100 Insulin] 100 unit/mL (3 mL) insulin pen 18 unit subcut BEDTIME nitrofurantoin monohyd/m-cryst [Macrobid] 100 mg capsule 100 mg PO Q12H 7 Days Qty: 14 0RF Rx Instructions: must administer with a meal/food (DME) FreeStyle Test Strip See Rx Instructions .Route Qty: 100 0RF Rx Instructions: As directed sulfamethoxazole-trimethoprim [Bactrim DS] 800-160 mg tablet 1 tab PO BID 7 Days Qty: 14 0RF oxycodone 5 mg tablet 5 mg PO Q8H PRN (Reason: pain) Qty: 10 0RF Rx Instructions: Partial Fill upon patient request.
--- NOTE | 2022-10-18 03:11 | PC.NURSE ---
pt does not want to go home to live by herself. pt states she doesn't feel safe and feels that she is going to be alone. pt walks with a walker and has had frequent falls. consult requested case mgt. pt is back in her room ed2 and is smiling, needs at bedside dr hooper made aware. son Bin can be reached at [phone]. pt feels unsafe at home and unsafe to be left alone.
--- NOTE | 2022-10-18 10:57 | MHC.CM.ED ---
Addendum entered by Adeola Montalvo 10/18/22 14:26: PT rec short term rehab. Clinical updates sent to facilities still following patient: [facility], [facility], [facility], [facility], [facility], [facility], [facility] Patient will need MDS. Completed by T/W and faxed to [facility]. Original Note: Received case management consult overnight. Patient came to the ER due to a fall. Work up essentially negative. Patient was going to be discharged and felt she couldn't safely return home. This is patient's 3rd ER visit in 10 days. [facility] was arranged for patient with long term and physical therapy on last visit. They have not started services yet. They were actually supposed to start services today. Met with patient and Portuguese interpeter. Patient lives alone and had no services prior to coming to the hospital. Patient states she doesn't feel safe at home because she is alone a lot and falls a lot. PCP verified as Neelima Gómez. Patient has not received any Covid vaccines. Patient aware physical therapy eval will be ordered. If PT does not recommend STR, patient is aware insurance will not pay for facility. T/W also explained that STR placement has been difficult due to 4 facilities closing in the area. Patient aware that CM will start in the [place] area and expand out to find a bed. Patient hopes a facility in [place] will be able to offer a bed but that distance could be further. Patient is illiterate. Continue to monitor for d/c needs.
[2022-10-18] MEDS: Lidocaine 4 % Patch ADH..PATCH 1 PATCH TRANSDERMA (11:06)
[2022-10-18] MEDS: Acetaminophen 325 MG TABLET 975 MG PO (11:07)
[2022-10-18 11:28] LABS: IDNOW Serial# 08D9AD1C
[2022-10-18 11:29] LABS: COVID-19 Test Negative (Negative)
[2022-10-18] MEDS: Calcium Carbonate 750 MG TAB.CHEW 1500 MG PO (14:29)
--- NOTE | 2022-10-18 14:29 | PHA.MEDREC ---
Pharmacy Consult ? Medication Reconciliation Pharmacy has completed the medication reconciliation. Utilized translator and interpreter services. Spoke to patient to confirm meds, however patient states they can not read or write and do not know their medications. Patient states that their son helps them with their medications, and attempted to call son 3 times with no response. Left a voicemail on son's voice number. Confirmed meds based off of patient's claim history.
--- NOTE | 2022-10-18 15:46 | PC.NURSE ---
Pt is yoruba speaking only. AOx4. VSS. Pain of 8/10 was reported and tylenol was given. Pt is resting in bed.
== END 2022-10-18 17:13 | disposition home or self-care (01) ==
PROVIDERS: Physician Assistant; Emergency Provider Internal Medicine; PCP Internal Medicine
DX: R26.2 Difficulty in walking, not elsewhere classified (principal); Z20.822 Contact with and (suspected) exposure to COVID-19; Z20.828 Contact with and (suspected) exposure to other viral communicable diseases; Z79.899 Other long term (current) drug therapy
CPT/HCPCS: 87635; 97162; 99284

== ENCOUNTER 2022-11-22 02:26 | Emergency (ER) | payer MEDICAID, SELFPAY ==
--- NOTE | 2022-11-22 | ECG_ITS ---
Test Reason : EPI GASTRIC PAIN Blood Pressure : / mmHG Vent. Rate : 100 BPM Atrial Rate : 100 BPM P-R Int : 132 ms QRS Dur : 074 ms QT Int : 358 ms P-R-T Axes : 062 011 045 degrees QTc Int : 461 ms Normal sinus rhythm Normal ECG When compared with ECG of 02-OCT-2022 08:01, No significant change was found Referred By: Generic ED Physician Electronically Signed By:Elpidio Cortez
[2022-11-22 02:36] VITALS: BP 188/100; PULSE 100; O2SAT 100
[2022-11-22 02:50] VITALS: BP 195/89; PULSE 99; RESP 14; TEMP 37.7; O2SAT 98; BMI 20.9
[2022-11-22 02:51] LABS: Basophils Percent Auto 0.2 % (0-2); Eosinophils Absolute Auto 0.2 X10*3/uL (0.0-0.4); Eosinophils Percent Auto 2.2 % (0-4); Hematocrit 25.9 % (37.0-47.0); Hemoglobin 8.8 g/dl (12.0-16.0); Imm Gran Abs Auto 0.02 X10*3/uL (0.00-0.03); Imm Gran Pct Auto 0.2 % (0.0-0.4); Lymphocytes Percent Auto 34.2 % (20-40); MANUAL DIFF FLAG NO; Mean Corpuscular Hemoglobin 29.3 pg (27.0-33.0); Mean Corpuscular Volume 86.3 fL (80.0-98.0); Mean Platelet Volume 8.1 fL (9.4-12.3); Monocytes Absolute Auto 0.6 X10*3/uL (0.1-1.2); Monocytes Percent Auto 7.2 % (2-11); Neutrophils Absolute Auto 4.9 x10*3/uL (2.0-8.3); Platelet Count 200 X10*3/uL (160-400); Red Cell Distribution Width 13.2 % (11.0-16.0); White Blood Count 8.7 X10*3/uL (4.8-10.8)
[2022-11-22 02:53] VITALS: BP 195/89; PULSE 99; RESP 14; TEMP 37.7; O2SAT 98
--- NOTE | 2022-11-22 02:59 | PC.NURSE ---
Patient is alert and oriented x4. Citizen Of [place] speaking. Arrived via EMS endorsing abdominal pain and constipation. Patient was seen at [facility] ED with no acute findings for similar compliant. Patient is tearful noting 9/10 abdominal pain. per report of EMS patient is being evicted from her home 11/23/22, and her son was murdered two weeks ago. EMS also noted that it appears pt is fearful when left alone at home. EKG completed, patient placed on continuous cardiac cardiac monitoring, lab obtained. BP 189/87, 02-96%, rr 12, pulse 98. Call sampson within reach. Will continue to follow plan of care
[2022-11-22 03:13] LABS: Troponin-I High Sensitivity 3.9 ng/L (<3.5-17.0)
[2022-11-22 04:13] VITALS: BP 183/69; PULSE 105; RESP 14; TEMP 37.4
[2022-11-22 04:23] LABS: Glucose, Whole Blood 199 mg/dL (60-115)
[2022-11-22 04:26] LABS: Alanine Aminotransferase 10 U/L (0-31); Albumin Level 3.4 g/dL (3.5-5.0); Alkaline Phosphatase 64 U/L (39-117); Anion Gap 14 (12-20); Aspartate Amino Transferase 13 U/L (5-31); Bilirubin Total 0.2 mg/dL (0.0-1.0); Blood Urea Nitrogen 28 mg/dL (9-16); Calcium 9.8 mg/dL (8.4-10.2); Carbon Dioxide 29 mmol/L (22-29); Chloride 100 mmol/L (96-108); Estimated Glomerular Filt Rate > 60; Glucose Random 236 mg/dL (60-115); Potassium 4.2 mmol/L (3.3-5.1); Sodium 139 mmol/L (135-145); Total Protein 7.4 g/dL (6.5-8.0)
--- NOTE | 2022-11-22 04:35 | ED_ITS ---
HPI - Abdominal Pain General Chief Complaint: Abdominal Pain Stated Complaint: Abd Pain/ Constipation Time Seen by Provider: 11/22/22 04:27 Source: patient Mode of arrival: EMS Limitations: no limitations History of Present Illness HPI narrative: Patient comes to the emergency room complaining of bilateral lower quadrant pain for couple of days. Patient states that she was seen at [facility] couple of days ago and she was told that she was fine and discharged home. Patient comes in complaining of ongoing bilateral lower quadrant pain, no nausea vomiting or diarrhea, no hematuria dysuria, no flank pain. No fever chills. Related Data Home Medications Medication Instructions Recorded Confirmed aspirin 81 mg tablet,delayed 1 tab PO DAILY 07/21/22 10/18/22 release atorvastatin 80 mg tablet 1 tab PO BEDTIME 07/21/22 10/18/22 insulin glargine 100 unit/mL (3 18 unit subcut BEDTIME 07/21/22 10/18/22 mL) subcutaneous pen (Lantus Solostar U-100 Insulin) insulin lispro 100 unit/mL See Protocol subcut TIDAC 07/21/22 10/18/22 subcutaneous pen pioglitazone 30 mg tablet 1 tab PO DAILY 07/21/22 10/18/22 Previous Rx's Medication Instructions Recorded blood sugar diagnostic (FreeStyle #100 ea 10/02/22 Test strips) oxycodone 5 mg tablet 5 mg PO Q8H PRN pain #10 tabs 10/18/22 levofloxacin 500 mg tablet 500 mg PO DAILY #9 tabs 11/22/22 phenazopyridine 100 mg tablet 100 mg PO TID #6 tabs 11/22/22 Allergies Allergy/AdvReac Type Severity Reaction Status Date / Time shrimp Allergy Swelling Verified 10/02/22 07:48 Review of Systems Review of Systems Constitutional : No Weight loss, No Fever, No Chills, No Night Sweats, No Fatigue, No Malaise ENT/Mouth : No Hearing loss, No Ear Pain, No Nasal Congestion, No Sinus Pain, No Hoarseness, No sore throat, No Rhinorrhea, No Swallowing Difficulty Eyes: No Eye Pain, No Swelling, No Redness, No Foreign Body, No Discharge, No Vision Changes Cardiovascular : No Chest Pain, No SOB, No Dyspnea on Exertion, No Orthopnea, No Edema, No Palpitations Respiratory : No Cough, No Sputum, No Wheezing, No Smoke Exposure, No Dyspnea Gastrointestinal : No Nausea, No Vomiting, No Diarrhea, No Constipation, complaining of bilateral lower quadrant pain, no melena Genitourinary : no irregular bleeding, No Dysuria, No Urinary Frequency, No H ematuria, No Urinary Incontinence, No Urgency, No Flank Pain, No Urinary Flow Changes, No Hesitancy Musculoskeletal : No joint pain, No Myalgias, No Joint Swelling Skin : No Skin Lesions, No rash Neuro : No Weakness, No Numbness, No Paresthesias, No Loss of Consciousness, No Dizziness, No Headache Psych : No Anxiety/Panic, No Depression, No SI/HI/AH/VH, No Social Issues, Heme/Lymph: No Bruising, No Bleeding,No Lymphadenopathy Endocrine : No Polyuria, No Polydipsia, No Temperature Intolerance [facility] Past Medical History Medical History Anemia Brain lesion Depression HLD (hyperlipidemia) Iron deficiency anemia Type 2 diabetes mellitus Family History Family History Other Hypertension Social History Social History Household Members: Family Housing: Apartment Do you presently have visiting nurse or other home services: Yes Unable to assess alcohol history related to: Unable to respond Alcohol intake: former Patient Tobacco Use Status: Never used Tobacco Smoked in Last 30 Days: No Use of substances other than those prescribed or required for medical reasons: No Advance Directives: Yes Advance Directives on File: Yes Advance Directives Date on File: 06/19/21 service: No Current occupational status: unemployed Physical Exam ED Vital Signs: Vital Signs - 24 hr 11/22/22 02:50 11/22/22 02:53 11/22/22 04:13 Temperature 99.8 F 99.8 F 99.3 F Pulse Rate 99 99 105 H Respiratory Rate 14 14 14 Blood Pressure 195/89 H 195/89 H 183/69 H Pulse Oximetry 98 98 Oxygen Delivery Method Room Air Room Air BMI result Body Mass Index 20.9 Const Other: Appearance: Alert. Oriented X3. No acute distress. Eyes: Pupils equal, round and reactive to light. ENT: Pharynx normal. Neck: Normal inspection. Neck supple. No lymph nodes noted. No crepitus CVS: Normal heart rate and rhythm. Pulses normal. Normal S1 and S2 Respiratory: No respiratory distress. Breath sounds normal. No Wheezing. No rales Abdomen: Soft , mildly distended, pain to palpation in suprapubic and bilateral lower quadrants, mild guarding Skin: Skin warm and dry. Normal skin color. Normal skin turgor. Extremities: No lower extremity edema. No Lacerations. No Rash Neuro: Oriented X 3. No motor deficit. No sensory deficit. Moving all extremities. No slurred speech. CN 2 through 12 grossly intact Psych: calm, cooperative, normal affect Course Course Course Narrative: - on physical exam, patient has mildly distended suprapubic area, pain to palpation in bilateral lower quadrants. -we will bladder scan the patient. Urinalysis pending Medical Decision Making Medical Decision Making [facility] Narrative: -my interpretation of labs: White blood cell count within normal limits, patient's hemoglobin is 8.8. Patient has chronic anemia, hemoglobin is at baseline. Chemistry does not show any acute abnormality, glucose 199, LFTs within normal limits -lipase negative -urinalysis positive for UTI. Patient has grown Klebsiella in the past, susceptible to ceftriaxone and Levaquin. -it was noted that patient has constantly hematuria. Patient instructed to follow up with Urology, patient may need a cystoscopy. -patient does not have flank pain, no fever, sepsis or pyelonephritis is not suspect -patient given p.o. Levaquin Differential Diagnosis Differential Diagnoses: The differential diagnosis associated with the presentation includes (UTI, pyelonephritis, cystitis) Lab Data [facility] Lab Attestation statement: I reviewed the patient's lab results. 11/22/22 02:42 11/22/22 02:42 Labs: Lab Results 11/22/22 11/22/22 11/22/22 Range/Units 02:42 02:42 02:42 WBC 8.7 (4.8-10.8) X10*3/uL RBC 3.00 L (4.20-5.50) X10*6/uL Hgb 8.8 L (12.0-16.0) g/dl Hct 25.9 L (37.0-47.0) % MCV 86.3 (80.0-98.0) fL MCH 29.3 (27.0-33.0) pg MCHC 34.0 (31.0-35.0) g/dl RDW 13.2 (11.0-16.0) % Plt Count 200 (160-400) X10*3/uL MPV 8.1 L (9.4-12.3) fL Immature Gran % (Auto) 0.2 (0.0-0.4) % Neut % (Auto) 56.0 (45-73) % Lymph % (Auto) 34.2 (20-40) % [place] % (Auto) 7.2 (2-11) % Eos % (Auto) 2.2 (0-4) % Baso % (Auto) 0.2 (0-2) % Lymph # (Auto) 3.0 (1.2-4.9) X10*3/uL [place] # (Auto) 0.6 (0.1-1.2) X10*3/uL Eos # (Auto) 0.2 (0.0-0.4) X10*3/uL Baso # (Auto) 0.0 (0.0-0.2) X10*3/uL Abs Immat Gran (auto) 0.02 (0.00-0.03) X10*3/uL Absolute Neuts (auto) 4.9 (2.0-8.3) x10*3/uL Absolute Nucleated RBC 0.000 (0.0-0.012) X10*3/uL Nucleated RBC % (auto) 0.0 (0.0-0.2) /100WBC Sodium 139 (135-145) mmol/L Potassium 4.2 (3.3-5.1) mmol/L Chloride 100 (96-108) mmol/L Carbon Dioxide 29 (22-29) mmol/L Anion Gap 14 (12-20) BUN 28 H (9-16) mg/dL Creatinine 0.90 (0.5-1.4) mg/dL Estim Creat Clear Calc 67.0 Estimated GFR > 60 POC Glucose (60-115) mg/dL Random Glucose 236 H (60-115) mg/dL Calcium 9.8 (8.4-10.2) mg/dL Total Bilirubin 0.2 (0.0-1.0) mg/dL AST 13 (5-31) U/L ALT 10 (0-31) U/L Alkaline Phosphatase 64 (39-117) U/L Troponin I High Sens 3.9 D (<3.5-17.0) ng/L Total Protein 7.4 (6.5-8.0) g/dL Albumin 3.4 L (3.5-5.0) g/dL Lipase 40 (8-78) U/L Urine Color Urine Appearance Urine pH (5.0-9.0) Ur Specific [place] (1.005-1.025) Urine Protein (Neg-Trace) mg/dL Urine Glucose (UA) (Negative) mg/dL Urine Ketones (Negative) mg/dL Urine Blood (Negative) Urine Nitrite (Negative) Ur Leukocyte Esterase (Negative) Urine RBC (0-2) /HPF Urine WBC (0-5) /HPF Ur Squamous Epith Cells (0-2) /HPF Urine Bacteria (None Seen) Hyaline Casts (0-2) /LPF 11/22/22 11/22/22 Range/Units 04:11 04:54 WBC (4.8-10.8) X10*3/uL RBC (4.20-5.50) X10*6/uL Hgb (12.0-16.0) g/dl Hct (37.0-47.0) % MCV (80.0-98.0) fL MCH (27.0-33.0) pg MCHC (31.0-35.0) g/dl RDW (11.0-16.0) % Plt Count (160-400) X10*3/uL MPV (9.4-12.3) fL Immature Gran % (Auto) (0.0-0.4) % Neut % (Auto) (45-73) % Lymph % (Auto) (20-40) % [place] % (Auto) (2-11) % Eos % (Auto) (0-4) % Baso % (Auto) (0-2) % Lymph # (Auto) (1.2-4.9) X10*3/uL [place] # (Auto) (0.1-1.2) X10*3/uL Eos # (Auto) (0.0-0.4) X10*3/uL Baso # (Auto) (0.0-0.2) X10*3/uL Abs Immat Gran (auto) (0.00-0.03) X10*3/uL Absolute Neuts (auto) (2.0-8.3) x10*3/uL Absolute Nucleated RBC (0.0-0.012) X10*3/uL Nucleated RBC % (auto) (0.0-0.2) /100WBC Sodium (135-145) mmol/L Potassium (3.3-5.1) mmol/L Chloride (96-108) mmol/L Carbon Dioxide (22-29) mmol/L Anion Gap (12-20) BUN (9-16) mg/dL Creatinine (0.5-1.4) mg/dL Estim Creat Clear Calc Estimated GFR POC Glucose 199 H (60-115) mg/dL Random Glucose (60-115) mg/dL Calcium (8.4-10.2) mg/dL Total Bilirubin (0.0-1.0) mg/dL AST (5-31) U/L ALT (0-31) U/L Alkaline Phosphatase (39-117) U/L Troponin I High Sens (<3.5-17.0) ng/L Total Protein (6.5-8.0) g/dL Albumin (3.5-5.0) g/dL Lipase (8-78) U/L Urine Color Straw Urine Appearance Cloudy Urine pH 6.5 (5.0-9.0) Ur Specific [place] 1.015 (1.005-1.025) Urine Protein 100 (2+) H (Neg-Trace) mg/dL Urine Glucose (UA) 250 H (Negative) mg/dL Urine Ketones Negative (Negative) mg/dL Urine Blood Large (3+) H (Negative) Urine Nitrite Negative (Negative) Ur Leukocyte Esterase Large (3+) H (Negative) Urine RBC >20 H (0-2) /HPF Urine WBC >50 H (0-5) /HPF Ur Squamous Epith Cells 0-2 (0-2) /HPF Urine Bacteria 4+ (None Seen) Hyaline Casts 0-2 (0-2) /LPF Discharge Plan Discharge Clinical Impression: UTI (urinary tract infection) Patient Disposition: Home, Self-Care Instructions: Urinary Tract Infection in Women (ED) Additional Instructions: Please follow-up with urology and with your primary care physician tomorrow. If you have any worsening or new symptoms, please return to the emergency room or call 911 Prescriptions: New levofloxacin 500 mg tablet 500 mg PO DAILY Qty: 9 0RF phenazopyridine 100 mg tablet 100 mg PO TID Qty: 6 0RF Rx Instructions: This will turn your urine red/orange No Action atorvastatin 80 mg tablet 1 tab PO BEDTIME aspirin 81 mg tablet,delayed release (DR/EC) 1 tab PO DAILY pioglitazone 30 mg tablet 1 tab PO DAILY insulin lispro 100 unit/mL insulin pen See Protocol subcut TIDAC Protocol: Insulin Correction Scale Less than or equal to 110 ---- Give (units): 0 111 to 150 Give (units): 0 151 to 200 Give (units): 10 201 to 250 Give (units): 12 251 to 300 Give (units): 14 301 to 350 Give (units): 16 Greater than 350 Give (units): 18 Call MD if Blood Glucose > : 350 Rx Instructions: increase by 2 units per 50mg/dL insulin glargine [Lantus Solostar U-100 Insulin] 100 unit/mL (3 mL) insulin pen 18 unit subcut BEDTIME (DME) FreeStyle Test Strip See Rx Instructions .Route Qty: 100 0RF Rx Instructions: As directed oxycodone 5 mg tablet 5 mg PO Q8H PRN (Reason: pain) Qty: 10 0RF Rx Instructions: Partial Fill upon patient request. Referrals: Sandra Aparicio MD [Physician] - 11/26/22
[2022-11-22 04:58] LABS: Lipase 40 U/L (8-78)
[2022-11-22 05:00] LABS: Appearance Urine Cloudy; Color Urine Straw; Glucose Urine UA 250 mg/dL (Negative); Leukocyte Esterase Urine Large (3+) (Negative); Nitrite Urine Negative (Negative); PH 6.5 (5.0-9.0); Specific Gravity - Urine 1.015 (1.005-1.025); UMIC TRIGGER UACC YES; Urine Blood Large (3+) (Negative); Urine Ketones Negative (Negative); Urine Protein 100 (2+) mg/dL (Neg-Trace)
[2022-11-22 05:07] LABS: Bacteria Urine 4+ (None Seen); Hyaline Casts Urine 0-2 /LPF (0-2); RBC Urine >20 /HPF (0-2); Squamous Epithelial Cell Urine 0-2 /HPF (0-2); UACC Culture Trigger YES; WBC Urine >50 /HPF (0-5)
[2022-11-22] MEDS: Phenazopyridine HCL 100 MG TABLET PO (05:53)
[2022-11-22] MEDS: levoFLOXacin 750 MG TABLET PO (05:53)
[2022-11-22 06:00] VITALS: BP 187/86; PULSE 100; RESP 18; TEMP 36.6
[2022-11-22] MEDS: LORazepam 1 MG TABLET PO (06:28)
--- NOTE | 2022-11-22 06:28 | PC.NURSE ---
BP continues to be elevated. aware. administered mediations as per JUL.
--- NOTE | 2022-11-22 07:49 | PC.NURSE ---
Alert and oriented. Denies pain. States she doesn't know what her son is coming to pick her up. oob to bedside commode without assist.
--- NOTE | 2022-11-22 08:06 | PC.NURSE ---
Multiple attempts to reach carmen Steward at [phone] unsuccessful at this time
--- NOTE | 2022-11-22 09:39 | PC.NURSE ---
Patient discharged back to apt via lyft
== END 2022-11-22 09:05 | disposition home or self-care (01) ==
PROVIDERS: Emergency Provider Emergency Medicine
DX: N39.0 Urinary tract infection, site not specified (principal); B96.1 Klebsiella pneumoniae [K. pneumoniae] as the cause of diseases classified elsewhere; E11.9 Type 2 diabetes mellitus without complications; I10 Essential (primary) hypertension; E78.5 Hyperlipidemia, unspecified; Z79.4 Long term (current) use of insulin; Z79.82 Long term (current) use of aspirin; Z79.899 Other long term (current) drug therapy
CPT/HCPCS: 36415; 51798; 80053; 81001; 81003; 82947; 83690; 84484; 85025; 87086; 87088; 87186; 93005; 99284; 99285

== ENCOUNTER → 2022-11-22 02:36 | Outpatient (BNV) | payer MEDICAID, SELFPAY | PROVIDERS: Emergency Provider Emergency Medicine; Visit Provider Internal Medicine Cardiovascular Disease | DX: R10.13 Epigastric pain (principal) | CPT/HCPCS: 93010 ==

== ENCOUNTER 2022-12-07 10:52 | Emergency (ER) | payer MEDICAID, SELFPAY ==
--- NOTE | ~2022-12-07 | CT_ITS ---
EXAMINATION: CT abdomen pelvis w IV con CLINICAL INFORMATION: Reason for Exam 8 days severe abdominal pain COMPARISON: Prior CT 10/17/2022 TECHNIQUE: Multidetector volumetric imaging was performed from the superior aspect of the liver through the pubic symphysis 85 mL of Omnipaque 350 injected Sagittal and coronal reformatted images were obtained on the technologist's workstation. This CT examination was performed using dose optimization techniques as appropriate, variously including the following: *Automated exposure control *Adjustment of mA and/or kV according to patient size (this includes techniques or standardized protocols for targeted exams where dose is matched to indication/reason for exam; i.e. extremities or head) *Use of iterative reconstruction technique DLP: 413 mGy-cm FINDINGS: LOWER THORAX: Included lung bases are clear. HEPATOBILIARY: No focal hepatic lesions. No biliary ductal dilatation. GALLBLADDER: Gallbladder has been removed. SPLEEN: Spleen is normal in size. PANCREAS: No focal mass or ductal dilatation. STOMACH AND GASTROINTESTINAL TRACT: Stomach is grossly unremarkable. Excess amount of stool in the colon suggesting constipation. Mildly dilated fluid and air-filled small bowel loops throughout the abdomen with no clear evidence of transition zone suggesting an ileus versus partial small bowel obstruction. I do not see a clear transition zone, Normal appendix identified No CT evidence of appendicitis. ADRENALS: No adrenal nodules. KIDNEYS/URETERS: Mildly dilated the proximal ureters bilaterally, this is chronic and has not changed from prior exam could be sequela of prior obstruction, infection, reflux, this has not changed from prior exams, no stones found along the course of the ureters on either side. As previously described there is subtle diminished cortical medullary differentiation and low attenuation especially in the lower pole right kidney, cannot rule out underlying pyelonephritis. Perinephric fat remain clear. URINARY BLADDER: Urinary bladder is distended unopacified. No stone or free air. PELVIC VISCERA: Unremarkable PERITONEUM: There is no free air or fluid in the abdomen and pelvis. LYMPH NODES: No lymphadenopathy. VASCULAR:Abdominal aorta normal in size, no aneurysm found. BONES, ABDOMINAL WALL AND SOFT TISSUES: Age-appropriate changes of the spine and skeletal system, no destructive osteolytic or osteosclerotic bone lesion found CT/CT abdomen pelvis w IV con IMPRESSION: * Excess amount of stool in the colon suggesting constipation. * Mildly dilated fluid and air-filled small bowel loops throughout the abdomen with no clear evidence of transition zone suggesting an ileus versus partial small bowel obstruction. * As previously described, there is subtle diminished cortical medullary differentiation and low attenuation especially in the lower pole right kidney, cannot rule out underlying pyelonephritis. Please correlate clinically. Perinephric fat remain clear. * Mildly dilated proximal ureters bilaterally, this is stable and has not changed from most recent prior exams could be sequela of prior obstruction, infection, or reflux,. There is no stones found along the course of the ureters on either side.
[2022-12-07 11:13] VITALS: BP 186/90; PULSE 110; O2SAT 96
[2022-12-07 11:24] VITALS: BP 174/76; PULSE 89; RESP 16; TEMP 36.8; O2SAT 98; BMI 22.1
--- NOTE | 2022-12-07 11:41 | PC.NURSE ---
pt a&ox3, vss aside from hypertension, pt has not been able to have a BM for over a week and is extremely nauseous. pt has 8/10 abdominal pain and leg pain. pt states the last meal she had was yesterday in the morning and has not been able to drink anything aside from water. during triage, hyperactive bowel sounds noted upon auscultation. abdomen tender to the touch but pain does not radiate towards her back.
--- NOTE | 2022-12-07 11:42 | PC.NURSE ---
patient weeping and tearing up periodically. per ems, pt seems to be extremely emotional as her son was murdered in a shooting 2 weeks ago.
--- NOTE | 2022-12-07 12:34 | ED_ITS ---
HPI - Abdominal Pain General Chief Complaint: Abdominal Pain Stated Complaint: Abd pain, chest pain per EMS Time Seen by Provider: 12/07/22 12:26 Source: patient Limitations: no limitations History of Present Illness HPI narrative: 52-year-old female presents with abdominal pain. The pain is periumbilical. Pain is constant. There is no clear relieving or exacerbating features. She does say she has been having constipation. The pain started 8 days ago. She describes the pain as crampy and achy in nature. Her pain level as an 8/10. Patient denies any urinary frequency, urgency or dysuria. She denies any sick contacts. Related Data Home Medications Medication Instructions Recorded Confirmed aspirin 81 mg tablet,delayed 1 tab PO DAILY 07/21/22 10/18/22 release atorvastatin 80 mg tablet 1 tab PO BEDTIME 07/21/22 10/18/22 insulin glargine 100 unit/mL (3 18 unit subcut BEDTIME 07/21/22 10/18/22 mL) subcutaneous pen (Lantus Solostar U-100 Insulin) insulin lispro 100 unit/mL See Protocol subcut TIDAC 07/21/22 10/18/22 subcutaneous pen pioglitazone 30 mg tablet 1 tab PO DAILY 07/21/22 10/18/22 Previous Rx's Medication Instructions Recorded blood sugar diagnostic (FreeStyle #100 ea 10/02/22 Test strips) oxycodone 5 mg tablet 5 mg PO Q8H PRN pain #10 tabs 10/18/22 levofloxacin 500 mg tablet 500 mg PO DAILY #9 tabs 11/22/22 phenazopyridine 100 mg tablet 100 mg PO TID #6 tabs 11/22/22 nitrofurantoin 100 mg PO BID 5 days #10 caps 12/03/22 monohydrate/macrocrystals 100 mg capsule (Macrobid) docusate sodium 50 mg capsule 50 mg PO BID #20 caps 12/07/22 (Colace Clear) magnesium hydroxide 400 mg/5 mL 5 ml PO DAILY #355 mL 12/07/22 oral suspension (Milk of Magnesia) sennosides 8.6 mg tablet (Senokot) 8.6 mg PO BEDTIME #10 tabs 12/07/22 Allergies Allergy/AdvReac Type Severity Reaction Status Date / Time shrimp Allergy Swelling Verified 12/07/22 11:37 Review of Systems Review of Systems CONSTITUTIONAL: Denies weight loss, fever and chills. HEENT: Denies changes in vision and hearing. RESPIRATORY: Denies SOB and cough. CV: Denies palpitations no CP. GI: + abdominal pain, - nausea, vomiting and diarrhea. : Denies dysuria and urinary frequency. MSK: Denies myalgia and joint pain. SKIN: Denies rash and pruritus. NEUROLOGICAL: Denies headache and syncope. PSYCHIATRIC: Denies recent changes in mood. Denies anxiety and depression. All other ROS are negative unless in HPI PMFSH Past Medical History Medical History Anemia Brain lesion Depression HLD (hyperlipidemia) Iron deficiency anemia Type 2 diabetes mellitus Family History Family History Other Hypertension Social History Social History Household Members: Family Housing: Apartment Do you presently have visiting nurse or other home services: Yes Unable to assess alcohol history related to: Unable to respond Alcohol intake: never Patient Tobacco Use Status: Never used Tobacco Smoked in Last 30 Days: No Use of substances other than those prescribed or required for medical reasons: No Advance Directives: Yes Advance Directives on File: Yes Advance Directives Date on File: 06/19/21 Patient : No service: No Current occupational status: unemployed Physical Exam ED Vital Signs: Vital Signs - 24 hr 12/07/22 11:24 12/07/22 14:48 Temperature 98.2 F Pulse Rate 89 98 Respiratory Rate 16 18 Blood Pressure 174/76 H 173/68 H Pulse Oximetry 98 96 Oxygen Delivery Method Room Air Room Air BMI result Body Mass Index 22.1 GEN: Well developed, no acute distress, alert, oriented HEENT: Normocephalic, atraumatic, normal external ears, nose appears normal, no oropharyngeal edema or exudates Eyes: Normal to appearance Neck: Supple, no lymphadenopathy Respiratory: Talks in complete sentences, no respiratory distress, clear to auscultation bilaterally Cardiovascular: Regular rate and rhythm, no murmurs rubs or gallops Abdomen: Soft, periumbilical and left lower quadrant tenderness, nondistended, positive guarding, no rebound, negative Teixeira sign, negative McBurney's point tenderness Back: No CVA tenderness Extremities: No clubbing cyanosis or edema Neurologic: No focal neurologic deficits, cranial nerves 2-12 intact, strength is 5/5 bilaterally Skin: No rash Course Reevaluation(s) Reevaluation #1: CT scan demonstrates ileus versus partial small-bowel obstruction. Will consult General surgery to determine an appropriate disposition. Time: 16:01 Reevaluation #2: For the workup is complete. CT scan was concerning for SBO versus ileus. Abdomen remains soft nontender. She was evaluated by General surgery. This felt that is most likely due to constipation. Will recommend aggressive bowel regimen to help her with with her symptoms. Time: 16:24 Consultations Consultation #1: Contacted general surgery for evaluation. Time: 16:00 Medical Decision Making Medical Decision Making MDM Narrative: 52-year-old female presents with abdominal pain. Examination reveals tenderness and guarding to the periumbilical and left lower quadrant area. Differential diagnosis includes diverticulitis, colitis, IBD, IBS, mesenteric issues, epiploic appendagitis. Given the broad differential diagnosis, CT scan the abdomen pelvis appears to be appropriate diagnostic modality. Ultrasound is unlikely to be helpful. Will obtain routine laboratory analysis, provide analge selena. Differential Diagnosis Differential Diagnoses: The differential diagnosis associated with the presentation includes (See above) Admission/Observation Consideration of admission/observation: Escalation of care including admission/observation considered Lab Data [facility] Lab Attestation statement: I reviewed the patient's lab results. 12/07/22 13:01 12/07/22 13:01 Labs: Lab Results 12/07/22 12/07/22 12/07/22 Range/Units 13:01 13:01 15:43 WBC 5.7 (4.8-10.8) X10*3/uL RBC 3.02 L (4.20-5.50) X10*6/uL Hgb 8.9 L (12.0-16.0) g/dl Hct 27.4 L (37.0-47.0) % MCV 90.7 (80.0-98.0) fL MCH 29.5 (27.0-33.0) pg MCHC 32.5 (31.0-35.0) g/dl RDW 13.9 (11.0-16.0) % Plt Count 213 (160-400) X10*3/uL MPV 8.3 L (9.4-12.3) fL Immature Gran % (Auto) 0.0 (0.0-0.4) % Neut % (Auto) 47.0 (45-73) % Lymph % (Auto) 41.9 H (20-40) % [place] % (Auto) 8.9 (2-11) % Eos % (Auto) 1.8 (0-4) % Baso % (Auto) 0.4 (0-2) % Lymph # (Auto) 2.4 (1.2-4.9) X10*3/uL [place] # (Auto) 0.5 (0.1-1.2) X10*3/uL Eos # (Auto) 0.1 (0.0-0.4) X10*3/uL Baso # (Auto) 0.0 (0.0-0.2) X10*3/uL Abs Immat Gran (auto) 0.00 (0.00-0.03) X10*3/uL Absolute Neuts (auto) 2.7 (2.0-8.3) x10*3/uL Absolute Nucleated RBC 0.000 (0.0-0.012) X10*3/uL Nucleated RBC % (auto) 0.0 (0.0-0.2) /100WBC Sodium 139 (135-145) mmol/L Potassium 4.7 (3.3-5.1) mmol/L Chloride 103 (96-108) mmol/L Carbon Dioxide 25 (22-29) mmol/L Anion Gap 16 (12-20) BUN 22 H (9-16) mg/dL Creatinine 0.74 (0.5-1.4) mg/dL Estim Creat Clear Calc 82.3 Estimated GFR > 60 Random Glucose 233 H (60-115) mg/dL Calcium 9.3 (8.4-10.2) mg/dL Total Bilirubin 0.4 (0.0-1.0) mg/dL AST 14 (5-31) U/L ALT 14 (0-31) U/L Alkaline Phosphatase 70 (39-117) U/L Total Protein 6.9 (6.5-8.0) g/dL Albumin 3.3 L (3.5-5.0) g/dL Lipase 39 (8-78) U/L Urine Color Yellow Urine Appearance Clear Urine pH 7.0 (5.0-9.0) Ur Specific [place] 1.020 (1.005-1.025) Urine Protein 100 (2+) H (Neg-Trace) mg/dL Urine Glucose (UA) 100 H (Negative) mg/dL Urine Ketones Negative (Negative) mg/dL Urine Blood Negative (Negative) Urine Nitrite Negative (Negative) Ur Leukocyte Esterase Trace H (Negative) Urine RBC 0-2 (0-2) /HPF Urine WBC 0-5 (0-5) /HPF Ur Squamous Epith Cells 11-20 (0-2) /HPF Urine Bacteria 1+ (None Seen) Hyaline Casts 0-2 (0-2) /LPF Independent Interpretation I performed an independent interpretation of an: CT Scan Radiology Impression Discussion of test interpretation with radiology: I have reviewed the radiologist's reading. Prescription Management I considered prescription management with: Pain Medication and Antibiotic Chronic Conditions Patient?s care impacted by: Diabetes Medications Administered Discontinued Medications Generic Name Dose Route Start Last Admin Trade Name Freq PRN Reason Stop Dose Admin Sodium Chloride 1,000 mls @ 999 mls/hr 12/07/22 12:30 12/07/22 14:07 Ns IV 12/07/22 13:30 Infused .Q1H1M JM Infusion Iohexol 85 ml 12/07/22 14:43 12/07/22 14:44 Iohexol 350 Mg/Ml 75 Ml Infus..Btl IV 12/07/22 14:44 85 ml ONCE ONE Administration Ketorolac Tromethamine 15 mg 12/07/22 12:30 12/07/22 13:11 Ketorolac Tromethamine 15 Mg/Ml Vial IVPUSH 12/07/22 12:31 15 mg ONCE ONE Administration Magnesium Hydroxide 30 ml 12/07/22 15:56 12/07/22 16:07 Milk Of Magnesia 30 Ml Oral.Susp PO 12/07/22 15:57 30 ml ONCE ONE Administration Discharge Plan Discharge Clinical Impression: Abdominal pain, Type 2 diabetes mellitus, Constipation, Elevated blood pressure reading Patient Disposition: Home, Self-Care Instructions: Constipation (ED), Abdominal Pain (ED), Hypertension (ED) Prescriptions: New magnesium hydroxide [Milk of Magnesia] 400 mg/5 mL suspension 5 ml PO DAILY Qty: 355 0RF Colace Clear 50 mg capsule 50 mg PO BID Qty: 20 0RF sennosides [Senokot] 8.6 mg tablet 8.6 mg PO BEDTIME Qty: 10 0RF No Action atorvastatin 80 mg tablet 1 tab PO BEDTIME aspirin 81 mg tablet,delayed release (DR/EC) 1 tab PO DAILY pioglitazone 30 mg tablet 1 tab PO DAILY insulin lispro 100 unit/mL insulin pen See Protocol subcut TIDAC Protocol: Insulin Correction Scale Less than or equal to 110 ---- Give (units): 0 111 to 150 Give (units): 0 151 to 200 Give (units): 10 201 to 250 Give (units): 12 251 to 300 Give (units): 14 301 to 350 Give (units): 16 Greater than 350 Give (units): 18 Call MD if Blood Glucose > : 350 Rx Instructions: increase by 2 units per 50mg/dL insulin glargine [Lantus Solostar U-100 Insulin] 100 unit/mL (3 mL) insulin pen 18 unit subcut BEDTIME (DME) FreeStyle Test Strip See Rx Instructions .Route Qty: 100 0RF Rx Instructions: As directed levofloxacin 500 mg tablet 500 mg PO DAILY Qty: 9 0RF phenazopyridine 100 mg tablet 100 mg PO TID Qty: 6 0RF Rx Instructions: This will turn your urine red/orange nitrofurantoin monohyd/m-cryst [Macrobid] 100 mg capsule 100 mg PO BID 5 Days Qty: 10 0RF Rx Instructions: must administer with a meal/food oxycodone 5 mg tablet 5 mg PO Q8H PRN (Reason: pain) Qty: 10 0RF Rx Instructions: Partial Fill upon patient request. Referrals: [facility] [Primary Care Provider] - 3 days
[2022-12-07] MEDS: 0.9 % Sodium Chloride 1,000 ML 999 ML IV (13:06)
[2022-12-07 13:07] LABS: MANUAL DIFF FLAG NO
[2022-12-07] MEDS: Ketorolac Tromethamine 15 MG/ML VIAL IVPUSH (13:11)
[2022-12-07 13:13] LABS: Basophils Percent Auto 0.4 % (0-2); Eosinophils Absolute Auto 0.1 X10*3/uL (0.0-0.4); Eosinophils Percent Auto 1.8 % (0-4); Hematocrit 27.4 % (37.0-47.0); Hemoglobin 8.9 g/dl (12.0-16.0); Lymphocytes Absolute Auto 2.4 X10*3/uL (1.2-4.9); Lymphocytes Percent Auto 41.9 % (20-40); Mean Corpuscular HGB Conc 32.5 g/dl (31.0-35.0); Mean Corpuscular Hemoglobin 29.5 pg (27.0-33.0); Mean Corpuscular Volume 90.7 fL (80.0-98.0); Mean Platelet Volume 8.3 fL (9.4-12.3); Monocytes Absolute Auto 0.5 X10*3/uL (0.1-1.2); Monocytes Percent Auto 8.9 % (2-11); Neutrophils Absolute Auto 2.7 x10*3/uL (2.0-8.3); Platelet Count 213 X10*3/uL (160-400); Red Blood Count 3.02 X10*6/uL (4.20-5.50); Red Cell Distribution Width 13.9 % (11.0-16.0); White Blood Count 5.7 X10*3/uL (4.8-10.8)
[2022-12-07 13:38] LABS: Alanine Aminotransferase 14 U/L (0-31); Albumin Level 3.3 g/dL (3.5-5.0); Alkaline Phosphatase 70 U/L (39-117); Anion Gap 16 (12-20); Aspartate Amino Transferase 14 U/L (5-31); Bilirubin Total 0.4 mg/dL (0.0-1.0); Blood Urea Nitrogen 22 mg/dL (9-16); Calcium 9.3 mg/dL (8.4-10.2); Carbon Dioxide 25 mmol/L (22-29); Chloride 103 mmol/L (96-108); Creatinine Clr Calc Pharmacy 82.3; Estimated Glomerular Filt Rate > 60; Glucose Random 233 mg/dL (60-115); Lipase 39 U/L (8-78); Potassium 4.7 mmol/L (3.3-5.1); Sodium 139 mmol/L (135-145); Total Protein 6.9 g/dL (6.5-8.0)
[2022-12-07] MEDS: iohexoL 350 MG/ML 75 ML INFUS..BTL 85 ML IV (14:44)
[2022-12-07 14:48] VITALS: BP 173/68; PULSE 98; RESP 18; O2SAT 96
--- NOTE | 2022-12-07 14:50 | PC.NURSE ---
pt a&ox3, vss, pt verbalizing 0/10 pain post medication administration. pt calm and cooperative showing no signs of distress. call sampson placed within reach. will continue to monitor.
[2022-12-07 15:58] LABS: Appearance Urine Clear; Color Urine Yellow; Glucose Urine UA 100 mg/dL (Negative); Leukocyte Esterase Urine Trace (Negative); Nitrite Urine Negative (Negative); UMIC TRIGGER UACC YES; Urine Blood Negative (Negative); Urine Ketones Negative (Negative); Urine Protein 100 (2+) mg/dL (Neg-Trace)
[2022-12-07 16:03] LABS: Bacteria Urine 1+ (None Seen); Hyaline Casts Urine 0-2 /LPF (0-2); RBC Urine 0-2 /HPF (0-2); WBC Urine 0-5 /HPF (0-5)
[2022-12-07] MEDS: Milk of Magnesia 30 ML ORAL.SUSP PO (16:07)
--- NOTE | 2022-12-07 16:08 | PC.NURSE ---
medication administered per provider order.
--- NOTE | 2022-12-07 16:21 | PM.CNGS ---
History of Present Illness Consult details Consult date: 12/07/22 Reason for consult: abdominal pain Requesting physician: Jason Holloway Narrative: 52-year-old female patient presenting to the emergency department with complaints of abdominal pain. The pain began approximately 8 days prior to examination and is located mid abdomen. She denies nausea or vomiting but has been constipated. She denies difficulty passing her urine. She subsequently presented to the emergency department was noted to have pain in the upper abdomen and a normal WBC. A CT abdomen and pelvis revealed some mildly dilated loops of small bowel with no clear transition point suggestive possibly of an ileus. She was also full of stool throughout the colon. Her bladder is noted to be markedly distended as well. Review of Systems Review of Systems: Yes all other systems are reviewed and are negative PMFSH Past Medical History Medical History Anemia Brain lesion Depression HLD (hyperlipidemia) Iron deficiency anemia Type 2 diabetes mellitus Family History Family History Other Hypertension Social History Social History Household Members: Family Housing: Apartment Do you presently have visiting nurse or other home services: Yes Unable to assess alcohol history related to: Unable to respond Alcohol intake: never Patient Tobacco Use Status: Never used Tobacco Smoked in Last 30 Days: No Use of substances other than those prescribed or required for medical reasons: No Advance Directives: Yes Advance Directives on File: Yes Advance Directives Date on File: 06/19/21 Patient : No service: No Current occupational status: unemployed Meds Allergies Allergy/AdvReac Type Severity Reaction Status Date / Time shrimp Allergy Swelling Verified 12/07/22 11:37 Home Medications Medication Instructions Recorded Confirmed Last Taken Type aspirin 81 mg tablet,delayed 1 tab PO DAILY 07/21/22 10/18/22 10/17/22 History release atorvastatin 80 mg tablet 1 tab PO BEDTIME 07/21/22 10/18/22 10/17/22 History insulin glargine 100 unit/mL (3 18 unit subcut BEDTIME 07/21/22 10/18/22 10/17/22 History mL) subcutaneous pen (Lantus Solostar U-100 Insulin) insulin lispro 100 unit/mL See Protocol subcut TIDAC 07/21/22 10/18/22 10/17/22 History subcutaneous pen pioglitazone 30 mg tablet 1 tab PO DAILY 07/21/22 10/18/22 10/17/22 History Physical Exam Vital Signs: Vital Signs: Last Vital Signs Temp 98.2 F 12/07/22 11:24 Pulse 98 12/07/22 14:48 Resp 18 12/07/22 14:48 BP 173/68 H 12/07/22 14:48 Pulse Ox 96 12/07/22 14:48 O2 Del Method Room Air 12/07/22 14:48 BMI result Body Mass Index 22.1 Const: General: no acute distress Nutritional Appearance: well nourished Orientation/consciousness: patient oriented x3 Limitations: no limitations HEENT: Head: Yes normocephalic and Yes atraumatic Resp: Effort & Inspection: normal respiratory effort, no audible wheezes, no cough and no respiratory distress GI: Inspection: Yes normal to inspection Palpation (GI): Soft to palpation, nontender, no guarding and not rigid Percussion: Yes normal to percussion Auscultation: normal bowel sounds Skin: Other: Warm, dry, no rashes Neuro: General: patient oriented x3 Extrem: General: Yes normal to inspection Results Labs 12/07/22 13:01 12/07/22 13:01 Labs: Abnormal lab results 12/07/22 12/07/22 12/07/22 Range/Units 13:01 13:01 15:43 RBC 3.02 L (4.20-5.50) X10*6/uL Hgb 8.9 L (12.0-16.0) g/dl Hct 27.4 L (37.0-47.0) % MPV 8.3 L (9.4-12.3) fL Lymph % (Auto) 41.9 H (20-40) % BUN 22 H (9-16) mg/dL Random Glucose 233 H (60-115) mg/dL Albumin 3.3 L (3.5-5.0) g/dL Urine Protein 100 (2+) H (Neg-Trace) mg/dL Urine Glucose (UA) 100 H (Negative) mg/dL Ur Leukocyte Esterase Trace H (Negative) Short CBC 12/07/22 Range/Units 13:01 WBC 5.7 (4.8-10.8) X10*3/uL Hgb 8.9 L (12.0-16.0) g/dl Hct 27.4 L (37.0-47.0) % Plt Count 213 (160-400) X10*3/uL BMP 12/07/22 13:01 Sodium 139 Potassium 4.7 Chloride 103 Carbon Dioxide 25 BUN 22 H Creatinine 0.74 Calcium 9.3 Liver Function 12/07/22 Range/Units 13:01 Total Bilirubin 0.4 (0.0-1.0) mg/dL AST 14 (5-31) U/L ALT 14 (0-31) U/L Alkaline Phosphatase 70 (39-117) U/L Albumin 3.3 L (3.5-5.0) g/dL Urine 12/07/22 Range/Units 15:43 Urine Color Yellow Urine Appearance Clear Urine pH 7.0 (5.0-9.0) Ur Specific [place] 1.020 (1.005-1.025) Urine Protein 100 (2+) H (Neg-Trace) mg/dL Urine Glucose (UA) 100 H (Negative) mg/dL All other labs normal. Imaging Abdomen CT scan report/results: image reviewed CT scan - pelvis: image reviewed Assessment and Plan (1) Abdominal pain: Status: Acute Plan 52-year-old female patient presenting with abdominal pain with findings on CT indicating constipation. Dilated loops of bowel did not appear significant. Abdominal examination appears very benign at this time. Suggest starting a bowel regime with stool softeners, MiraLax. Follow up as needed. Time Spent With Patient Time: Total time managing care of this patient today ____ minutes. Procedures Date of Service Date of Service: 12/07/22
--- NOTE | 2022-12-07 17:02 | PC.NURSE ---
doweler called so patient can be discharged.
== END 2022-12-07 17:45 | disposition home or self-care (01) ==
PROVIDERS: Emergency Provider Emergency Medicine
DX: R10.9 Unspecified abdominal pain (principal); E11.9 Type 2 diabetes mellitus without complications; K59.00 Constipation, unspecified; I10 Essential (primary) hypertension; E78.5 Hyperlipidemia, unspecified; Z79.4 Long term (current) use of insulin; Z79.899 Other long term (current) drug therapy; Z79.82 Long term (current) use of aspirin
CPT/HCPCS: 36415; 74177; 80053; 81001; 83690; 85025; 96361; 96374; 99284; J1885; Q9967

== ENCOUNTER → 2022-12-07 11:21 | Outpatient (BNV) | payer MEDICAID, SELFPAY | PROVIDERS: Emergency Provider Emergency Medicine; Visit Provider Surgery | DX: R10.9 Unspecified abdominal pain (principal) | CPT/HCPCS: 99283 ==

== ENCOUNTER 2022-12-17 14:56 | Inpatient (IN) | payer MEDICAID, SELFPAY ==
[2022-12-17] VITALS (16 sets, daily range): BP systolic 77–214; BP diastolic 40–98; PULSE 95–105; RESP 12–16; TEMP 37–37.6; O2SAT 97–100; BMI 21.6
--- NOTE | 2022-12-17 | ECG_ITS ---
Test Reason : weak Blood Pressure : / mmHG Vent. Rate : 097 BPM Atrial Rate : 097 BPM P-R Int : 138 ms QRS Dur : 074 ms QT Int : 356 ms P-R-T Axes : 070 012 021 degrees QTc Int : 452 ms Normal sinus rhythm Normal ECG When compared with ECG of 22-NOV-2022 02:36, No significant change was found Referred By: Generic ED Physician Electronically Signed By:CRISTA OWEN
[2022-12-17 15:27] LABS: Glucose, Whole Blood 195 mg/dL (60-115)
[2022-12-17 15:37] LABS: MANUAL DIFF FLAG NO
[2022-12-17 15:55] LABS: Basophils Percent Auto 0.2 % (0-2); Eosinophils Absolute Auto 0.1 X10*3/uL (0.0-0.4); Eosinophils Percent Auto 1.1 % (0-4); Imm Gran Abs Auto 0.01 X10*3/uL (0.00-0.03); Imm Gran Pct Auto 0.2 % (0.0-0.4); Lymphocytes Absolute Auto 1.7 X10*3/uL (1.2-4.9); Lymphocytes Percent Auto 32.8 % (20-40); Mean Corpuscular HGB Conc 32.5 g/dl (31.0-35.0); Mean Corpuscular Hemoglobin 30.5 pg (27.0-33.0); Mean Corpuscular Volume 93.7 fL (80.0-98.0); Mean Platelet Volume 9.3 fL (9.4-12.3); Monocytes Absolute Auto 0.4 X10*3/uL (0.1-1.2); Monocytes Percent Auto 8.3 % (2-11); Neutrophils Percent Auto 57.4 % (45-73); Platelet Count 122 X10*3/uL (160-400); Red Blood Count 2.23 X10*6/uL (4.20-5.50); Red Cell Distribution Width 12.9 % (11.0-16.0); White Blood Count 5.3 X10*3/uL (4.8-10.8)
[2022-12-17 15:59] LABS: Hemoglobin 6.8 g/dl (12.0-16.0)
[2022-12-17 16:00] LABS: Hematocrit 20.9 % (37.0-47.0)
--- NOTE | 2022-12-17 16:17 | ED_ITS ---
HPI - Dizziness General Chief Complaint: Dizziness Stated Complaint: dizzyness Time Seen by Provider: 12/17/22 15:26 Source: patient Mode of arrival: ambulatory Limitations: no limitations History of Present Illness HPI Narrative: History of steak in the presence of a nutrition technician. Patient reports feeling dizzy/lightheadedness. The symptoms are described as severe. Worse with exertion and sitting up. Symptoms started within the last 24 hours. They do appear to be better when she is lying down. Patient is describe nausea, vomiting and diarrhea. She has had no fever but has had chills. She has had diminished appetite but is able to tolerate fluids. She denies any urinary frequency, urgency. The stool that she does have is not melanotic or dark black. She denies any blood or active bleeding. She has had no fever chills or other respiratory complaints. Patient also describes a vague generalized a bdominal pain which is mild to moderate nature. There is no clear relieving or exacerbating features. The pain is intermittent and can be associated with nausea vomiting. She also has chronic leg pain which makes it difficult for to ambulate but that has been going on for years and is not significantly changed. Related Data Home Medications Medication Instructions Recorded Confirmed aspirin 81 mg tablet,delayed 1 tab PO DAILY 07/21/22 10/18/22 release atorvastatin 80 mg tablet 1 tab PO BEDTIME 07/21/22 10/18/22 insulin glargine 100 unit/mL (3 18 unit subcut BEDTIME 07/21/22 10/18/22 mL) subcutaneous pen (Lantus Solostar U-100 Insulin) insulin lispro 100 unit/mL See Protocol subcut TIDAC 07/21/22 10/18/22 subcutaneous pen pioglitazone 30 mg tablet 1 tab PO DAILY 07/21/22 10/18/22 Previous Rx's Medication Instructions Recorded blood sugar diagnostic (FreeStyle #100 ea 10/02/22 Test strips) oxycodone 5 mg tablet 5 mg PO Q8H PRN pain #10 tabs 10/18/22 levofloxacin 500 mg tablet 500 mg PO DAILY #9 tabs 11/22/22 phenazopyridine 100 mg tablet 100 mg PO TID #6 tabs 11/22/22 nitrofurantoin 100 mg PO BID 5 days #10 caps 12/03/22 monohydrate/macrocrystals 100 mg capsule (Macrobid) docusate sodium 50 mg capsule 50 mg PO BID #20 caps 12/07/22 (Colace Clear) magnesium hydroxide 400 mg/5 mL 5 ml PO DAILY #355 mL 12/07/22 oral suspension (Milk of Magnesia) sennosides 8.6 mg tablet (Senokot) 8.6 mg PO BEDTIME #10 tabs 12/07/22 Allergies Allergy/AdvReac Type Severity Reaction Status Date / Time shrimp Allergy Swelling Verified 12/07/22 11:37 Review of Systems Review of Systems: CONSTITUTIONAL: Denies weight loss, fever + chills. HEENT: Denies changes in vision and hearing. RESPIRATORY: Denies SOB and cough. CV: Denies palpitations no CP. GI: + abdominal pain, nausea, vomiting and diarrhea. : Denies dysuria and urinary frequency. MSK: Denies myalgia and joint pain. SKIN: Denies rash and pruritus. NEUROLOGICAL: Denies headache and syncope. PSYCHIATRIC: Denies recent changes in mood. Denies anxiety and depression. All other ROS are negative unless in HPI PMFSH Past Medical History Medical History Anemia Brain lesion Depression HLD (hyperlipidemia) Iron deficiency anemia Type 2 diabetes mellitus Family History Family History Other Hypertension Social History Social History Household Members: Family Housing: Apartment Do you presently have visiting nurse or other home services: Yes Unable to assess alcohol history related to: Unable to respond Alcohol intake: never Patient Tobacco Use Status: Never used Tobacco Smoked in Last 30 Days: No Use of substances other than those prescribed or required for medical reasons: No Advance Directives: Yes Advance Directives on File: Yes Advance Directives Date on File: 06/19/21 service: No Current occupational status: unemployed Physical Exam Vital Signs: Vital Signs: Last Vital Signs Temp 98.7 F 12/17/22 15:18 Pulse 95 12/17/22 17:10 Resp 14 12/17/22 17:10 BP 150/69 H 12/17/22 17:10 Pulse Ox 100 12/17/22 17:10 O2 Del Method Room Air 12/17/22 17:10 BMI result Body Mass Index 21.6 GEN: Well developed, no acute distress, alert, oriented HEENT: Normocephalic, atraumatic, normal external ears, nose appears normal, no oropharyngeal edema or exudates Eyes: Normal to appearance Neck: Supple, no lymphadenopathy Respiratory: Talks in complete sentences, no respiratory distress, clear to auscultation bilaterally Cardiovascular: Regular rate and rhythm, no murmurs rubs or gallops Abdomen: Soft, nontender, nondistended, no guarding, no rebound Back: No CVA tenderness Extremities: No clubbing cyanosis or edema Neurologic: No focal neurologic deficits, cranial nerves 2-12 intact, strength is 5/5 bilaterally Skin: No rash Course Course Course Narrative: 52-year-old female presents with lightheadedness. Laboratory results of demonstrate a significant drop in her hemoglobin level. Baseline she has chronic anemia that appears to be normocytic. Etiology is not entirely clear. She is guaiac negative. Iron studies been ordered as well as B12 folic acid, methylmalonic acid, homocystine levels to check for additional possible etiologies for her anemia. As she is symptomatic, I will order 2 units of blood. Will admit the patient for further evaluation. Reevaluation(s) Reevaluation #1: Patient is significantly orthostatic. Will IV fluids. Time: 16:19 Medications Administered Discontinued Medications Generic Name Dose Route Start Last Admin Trade Name Freq PRN Reason Stop Dose Admin Famotidine 20 mg 12/17/22 15:54 12/17/22 17:18 Famotidine/Pf 20 Mg/2 Ml Vial IVPUSH 12/17/22 15:55 20 mg ONCE ONE Administration Sodium Chloride 1,000 mls @ 999 mls/hr 12/17/22 16:00 12/17/22 18:09 Ns IV 12/17/22 18:00 999 mls/hr .Q1H1M JM Administration Ondansetron HCl 4 mg 12/17/22 15:54 12/17/22 17:18 Ondansetron Hcl 4 Mg/2 Ml Vial IVPUSH 12/17/22 15:55 4 mg ONCE ONE Administration Medical Decision Making Medical Decision Making [facility] Narrative: 52-year-old female with history of diabetes presents with dizziness. Examination is benign with the exception of significantly orthostatic findings. Her differential diagnosis includes dehydration, hypovolemia, anemia, electrolyte abnormality, deconditioning. Patient will need to obtain routine laboratory analysis including a CBC to rule out anemia, metabolic panel to rule out dehydration or hypovolemia, renal deficiency. Could consider infectious process such as urinary tract infection. Would be good to obtain a urinalysis. In the meantime, will need to obtain an EKG to rule out cardiac dysrhythmia provide patient with intravenous fluids for symptomatic improvement Differential Diagnosis Differential Diagnoses: The differential diagnosis associated with the presentation includes (See above) Admission/Observation Consideration of admission/observation: Escalation of care including admission/observation considered Lab Data MDM Lab Attestation statement: I reviewed the patient's lab results. 12/17/22 15:32 12/17/22 15:32 Labs: Lab Results 12/17/22 12/17/22 12/17/22 Range/Units 15:20 15:32 15:32 WBC 5.3 (4.8-10.8) X10*3/uL RBC 2.23 L D (4.20-5.50) X10*6/uL Hgb 6.8 L* D (12.0-16.0) g/dl Hct 20.9 L* D (37.0-47.0) % MCV 93.7 (80.0-98.0) fL MCH 30.5 (27.0-33.0) pg MCHC 32.5 (31.0-35.0) g/dl RDW 12.9 (11.0-16.0) % Plt Count 122 L D (160-400) X10*3/uL MPV 9.3 L (9.4-12.3) fL Immature Gran % (Auto) 0.2 (0.0-0.4) % Neut % (Auto) 57.4 (45-73) % Lymph % (Auto) 32.8 (20-40) % [place] % (Auto) 8.3 (2-11) % Eos % (Auto) 1.1 (0-4) % Baso % (Auto) 0.2 (0-2) % Lymph # (Auto) 1.7 (1.2-4.9) X10*3/uL [place] # (Auto) 0.4 (0.1-1.2) X10*3/uL Eos # (Auto) 0.1 (0.0-0.4) X10*3/uL Baso # (Auto) 0.0 (0.0-0.2) X10*3/uL Abs Immat Gran (auto) 0.01 (0.00-0.03) X10*3/uL Absolute Neuts (auto) 3.0 (2.0-8.3) x10*3/uL Absolute Nucleated RBC 0.000 (0.0-0.012) X10*3/uL Nucleated RBC % (auto) 0.0 (0.0-0.2) /100WBC Sodium 140 (135-145) mmol/L Potassium 4.4 (3.3-5.1) mmol/L Chloride 105 (96-108) mmol/L Carbon Dioxide 30 H (22-29) mmol/L Anion Gap 9 L (12-20) BUN 19 H (9-16) mg/dL Creatinine 0.80 (0.5-1.4) mg/dL Estim Creat Clear Calc 76.1 Estimated GFR > 60 POC Glucose 195 H (60-115) mg/dL Random Glucose 192 H (60-115) mg/dL Calcium 9.1 (8.4-10.2) mg/dL Iron (30-160) mcg/dL TIBC (228-428) mcg/dL % Saturation (15-50) % Unsat Iron Binding ug/dL Total Bilirubin 0.2 (0.0-1.0) mg/dL AST 14 (5-31) U/L ALT 13 (0-31) U/L Alkaline Phosphatase 74 (39-117) U/L Troponin I High Sens (<3.5-17.0) ng/L Total Protein 6.6 (6.5-8.0) g/dL Albumin 3.1 L (3.5-5.0) g/dL Vitamin B12 (200-900) pg/mL Folate (> or = 4.0) ng/mL Stool Occult Blood (NEGATIVE) Blood Type Antibody Screen Crossmatch 12/17/22 12/17/22 12/17/22 Range/Units 15:32 17:11 17:11 WBC (4.8-10.8) X10*3/uL RBC (4.20-5.50) X10*6/uL Hgb (12.0-16.0) g/dl Hct (37.0-47.0) % MCV (80.0-98.0) fL MCH (27.0-33.0) pg MCHC (31.0-35.0) g/dl RDW (11.0-16.0) % Plt Count (160-400) X10*3/uL MPV (9.4-12.3) fL Immature Gran % (Auto) (0.0-0.4) % Neut % (Auto) (45-73) % Lymph % (Auto) (20-40) % [place] % (Auto) (2-11) % Eos % (Auto) (0-4) % Baso % (Auto) (0-2) % Lymph # (Auto) (1.2-4.9) X10*3/uL [place] # (Auto) (0.1-1.2) X10*3/uL Eos # (Auto) (0.0-0.4) X10*3/uL Baso # (Auto) (0.0-0.2) X10*3/uL Abs Immat Gran (auto) (0.00-0.03) X10*3/uL Absolute Neuts (auto) (2.0-8.3) x10*3/uL Absolute Nucleated RBC (0.0-0.012) X10*3/uL Nucleated RBC % (auto) (0.0-0.2) /100WBC Sodium (135-145) mmol/L Potassium (3.3-5.1) mmol/L Chloride (96-108) mmol/L Carbon Dioxide (22-29) mmol/L Anion Gap (12-20) BUN (9-16) mg/dL Creatinine (0.5-1.4) mg/dL Estim Creat Clear Calc Estimated GFR POC Glucose (60-115) mg/dL Random Glucose (60-115) mg/dL Calcium (8.4-10.2) mg/dL Iron 45 (30-160) mcg/dL TIBC 282 (228-428) mcg/dL % Saturation 16 (15-50) % Unsat Iron Binding 237 ug/dL Total Bilirubin (0.0-1.0) mg/dL AST (5-31) U/L ALT (0-31) U/L Alkaline Phosphatase (39-117) U/L Troponin I High Sens 5.5 (<3.5-17.0) ng/L Total Protein (6.5-8.0) g/dL Albumin (3.5-5.0) g/dL Vitamin B12 252 (200-900) pg/mL Folate 14.6 (> or = 4.0) ng/mL Stool Occult Blood (NEGATIVE) Blood Type Antibody Screen Crossmatch 12/17/22 12/17/22 Range/Units 17:11 17:11 WBC (4.8-10.8) X10*3/uL RBC (4.20-5.50) X10*6/uL Hgb (12.0-16.0) g/dl Hct (37.0-47.0) % MCV (80.0-98.0) fL MCH (27.0-33.0) pg MCHC (31.0-35.0) g/dl RDW (11.0-16.0) % Plt Count (160-400) X10*3/uL MPV (9.4-12.3) fL Immature Gran % (Auto) (0.0-0.4) % Neut % (Auto) (45-73) % Lymph % (Auto) (20-40) % [place] % (Auto) (2-11) % Eos % (Auto) (0-4) % Baso % (Auto) (0-2) % Lymph # (Auto) (1.2-4.9) X10*3/uL [place] # (Auto) (0.1-1.2) X10*3/uL Eos # (Auto) (0.0-0.4) X10*3/uL Baso # (Auto) (0.0-0.2) X10*3/uL Abs Immat Gran (auto) (0.00-0.03) X10*3/uL Absolute Neuts (auto) (2.0-8.3) x10*3/uL Absolute Nucleated RBC (0.0-0.012) X10*3/uL Nucleated RBC % (auto) (0.0-0.2) /100WBC Sodium (135-145) mmol/L Potassium (3.3-5.1) mmol/L Chloride (96-108) mmol/L Carbon Dioxide (22-29) mmol/L Anion Gap (12-20) BUN (9-16) mg/dL Creatinine (0.5-1.4) mg/dL Estim Creat Clear Calc Estimated GFR POC Glucose (60-115) mg/dL Random Glucose (60-115) mg/dL Calcium (8.4-10.2) mg/dL Iron (30-160) mcg/dL TIBC (228-428) mcg/dL % Saturation (15-50) % Unsat Iron Binding ug/dL Total Bilirubin (0.0-1.0) mg/dL AST (5-31) U/L ALT (0-31) U/L Alkaline Phosphatase (39-117) U/L Troponin I High Sens (<3.5-17.0) ng/L Total Protein (6.5-8.0) g/dL Albumin (3.5-5.0) g/dL Vitamin B12 (200-900) pg/mL Folate (> or = 4.0) ng/mL Stool Occult Blood NEGATIVE (NEGATIVE) Blood Type A Positive Antibody Screen NEGATIVE Crossmatch See Detail Independent Interpretation I performed an independent interpretation of an: EKG (Normal sinus rhythm heart rate 97, no acute ST elevations depressions, nonspecific T-wave changes, normal intervals.) Prescription Management I considered prescription management with: Pain Medication Critical Care Time Critical Care Time Critical Care Time: Yes Total Critical Care Time: 35 Attestation: Approximately 35+ minutes of critical care time has been spent on this patient including initial assessment, reassessment, consultation with other providers, interpretation and review of medical data, management of acute medical issue luis carlos t is potentially associated with significant morbidity. This was all outside of any procedure. Discharge Plan Discharge Clinical Impression: Symptomatic anemia, Orthostatic hypotension Patient Disposition: Admitted As Inpatient
[2022-12-17 16:46] LABS: Alanine Aminotransferase 13 U/L (0-31); Albumin Level 3.1 g/dL (3.5-5.0); Alkaline Phosphatase 74 U/L (39-117); Anion Gap 9 (12-20); Aspartate Amino Transferase 14 U/L (5-31); Bilirubin Total 0.2 mg/dL (0.0-1.0); Blood Urea Nitrogen 19 mg/dL (9-16); Calcium 9.1 mg/dL (8.4-10.2); Carbon Dioxide 30 mmol/L (22-29); Chloride 105 mmol/L (96-108); Creatinine Clr Calc Pharmacy 76.1; Estimated Glomerular Filt Rate > 60; Glucose Random 192 mg/dL (60-115); Potassium 4.4 mmol/L (3.3-5.1); Sodium 140 mmol/L (135-145); Total Protein 6.6 g/dL (6.5-8.0)
[2022-12-17 16:54] LABS: Troponin-I High Sensitivity 5.5 ng/L (<3.5-17.0)
[2022-12-17] MEDS: 0.9 % Sodium Chloride 1,000 ML 999 ML IV ×2 (17:13→18:09)
[2022-12-17] MEDS: Famotidine/PF 20 MG/2 ML VIAL IVPUSH (17:18)
[2022-12-17] MEDS: ondansetron HCL 4 MG/2 ML VIAL IVPUSH (17:18)
[2022-12-17 17:31] LABS: OBS Int Ctl Valid YES; OBS1 NEGATIVE (NEGATIVE)
[2022-12-17 17:46] LABS: Iron 45 mcg/dL (30-160); Percent Iron Saturation 16 % (15-50); Total Iron Binding Capacity 282 mcg/dL (228-428); Unsaturated Iron Binding 237 ug/dL
[2022-12-17 18:19] LABS: Folate 14.6 ng/mL (> or = 4.0); Vitamin B12 252 pg/mL (200-900)
--- NOTE | 2022-12-17 18:57 | PHA.MEDREC ---
Pharmacy Consult ? Medication Reconciliation Pharmacy has completed the medication reconciliation. Patient does not know any medications. Utilized claim history. Jimena Hayes, DemetrioD
--- NOTE | 2022-12-17 18:59 | PC.NURSE ---
pt crying in bed stating that she is hungry, no other complaints at this time. blood transfusion initiated at this time
[2022-12-17 19:44] LABS: Band Neutrophils Percent 2 % (3-5); Eosinophils Absolute Manual 0.1 X10*3/uL (0.0-0.4); Eosinophils Percent Manual 2 % (0-4); Lymphocytes Absolute Manual 1.5 X10*3/uL (1.2-4.9); Lymphocytes Percent Manual 29 % (20-40); Monocytes Absolute Manual 0.3 X10*3/uL (0.1-1.2); Monocytes Percent Manual 5 % (2-11); Neutrophils Absolute Manual 3.4 X10*3/uL (2.0-8.3); Neutrophils Percent Manual 62 % (45-73)
[2022-12-17 19:45] LABS: Hypochromasia 1+ (5-14) /OIF; RBC Morphology NOTED; Schistocytes 1+ (0-2) /OIF
--- NOTE | 2022-12-17 19:49 | P.HPHOSP_ITS ---
History of Present Illness Date of Service: 12/17/22 Attending physician on admission: Sherry Douglass Chief Complaint: low blood pressure 52-year-old female with history of insulin-dependent type 2 diabetes, chronic normocytic anemia, depression, hyperlipidemia, hypertension presented to the ED earlier today for evaluation of low blood pressure. States she took her blood pressure at home and systolic was in the low 90s. She has also been experiencing bilateral leg pain. She has had longstanding abdominal pain for the last 3 days has had watery diarrhea with 3 episodes today alone. Denies any melena or hematochezia. Has felt fatigued, lightheaded, and generally weak. No fevers, chills, nausea, vomiting, cough, shortness of breath, chest pain. On arrival, patient noted to have orthostatic hypotension with blood pressure down to 77/40 on standing. Has otherwise been hypertensive to 214/98 with intermittent tachycardia to 101. She is afebrile. There is new leukocytosis. H/H 6.8/20.9%, MCV 93.7, platelets 122. Renal function normal, electrolytes largely unremarkable. Haptoglobin pending, LDH pending. Vitamin B12 and folic acid levels normal. iron studies normal. Stool occult blood negative. She did have CT of the abdomen/pelvis on ED visit from 12/07 showing excessive stool burden with mildly dilated fluid and air-filled small bowel loops throughout the abdomen without clear transition zone suggestive of ileus versus partial small- bowel obstruction. There is previously noted diminished cortical medullary differentiation and low-attenuation is specially in the lower pole of the right kidney cannot rule out underlying pyelonephritis but no perinephric fat stranding. She denies any urinary symptoms. She also has stable bilateral mildly dilated proximal ureters but no evidence of stones. In the ED, received 2 L IVF, ondansetron, and 1 unit packed red blood cells. Review of Systems Review of Systems: General: No fevers, malaise, unintentional weight loss. +fatigue HEENT: No blurred vision, diplopia. No sore throat, nasal congestion, rhinorrhea, sinus pain, ear pain Cardiovascular: No chest pain, palpitations, or leg edema Respiratory: No shortness of breath, wheezing, cough GI: +abd pain, +diarrhea. No nausea, vomiting, constipation, melena, hematochezia : No dysuria, hematuria, increased urinary frequency, decreased urinary output MSK: No myalgia, back pain. +bilateral leg pain Neuro: No headaches, weakness, paresthesias. +lightheadedness Skin: No rashes or lesions [facility] Medical History Anemia Brain lesion Depression HLD (hyperlipidemia) Iron deficiency anemia Type 2 diabetes mellitus Family History Other Hypertension Social History Household Members: Family Housing: Apartment Do you presently have visiting nurse or other home services: Yes Unable to assess alcohol history related to: Unable to respond Alcohol intake: never Patient Tobacco Use Status: Never used Tobacco Smoked in Last 30 Days: No Use of substances other than those prescribed or required for medical reasons: No Advance Directives: Yes Advance Directives on File: Yes Advance Directives Date on File: 06/19/21 service: No Current occupational status: unemployed Meds Allergies Allergy/AdvReac Type Severity Reaction Status Date / Time shrimp Allergy Swelling Verified 12/07/22 11:37 Active Medications: Current Medications Acetaminophen (Acetaminophen 325 Mg Tablet) 650 mg PO Q6H PRN PRN Reason: Pain, Mild (Pain Scale 1-3) Docusate Sodium (Docusate Sodium 100 Mg Capsule) 100 mg PO DAILY PRN PRN Reason: Constipation Ondansetron HCl (Ondansetron Hcl 4 Mg/2 Ml Vial) 4 mg IVPUSH Q8H PRN PRN Reason: Nausea and Vomiting Pharmacy Consult (Consult Rx Perform Med Rec) 1 each MISCELLANE ONCE PRN PRN Reason: Consult order Sodium Chloride (0.9 % Sodium Chloride Flush 3 Ml Syringe) 3 ml IVFLUSH [facility] Home Medications Medication Instructions Recorded Confirmed Last Taken Type aspirin 81 mg tablet,delayed 1 tab PO DAILY 07/21/22 12/17/22 10/17/22 History release insulin glargine 100 unit/mL (3 18 unit subcut BEDTIME 07/21/22 12/17/22 10/17/22 History mL) subcutaneous pen (Lantus Solostar U-100 Insulin) insulin lispro 100 unit/mL See Protocol subcut TIDAC 03/12/17/22 10/17/22 History subcutaneous pen pioglitazone 30 mg tablet 1 tab PO DAILY 07/21/22 12/17/22 10/17/22 History gabapentin 300 mg capsule 300 mg PO TID 12/17/22 12/17/22 Unknown History lisinopril 10 mg tablet 10 mg PO QAM 12/17/22 12/17/22 Unknown History polyethylene glycol 3350 17 17 g PO DAILY 12/17/22 12/17/22 Unknown History gram/dose oral powder (Gavilax) rosuvastatin 40 mg tablet 40 mg PO QAM 12/17/22 12/17/22 Unknown History sennosides 8.6 mg-docusate sodium 1 tab PO QAM 12/17/22 12/17/22 Unknown History 50 mg tablet (Stimulant Laxative Plus) Physical Exam Vital Signs and Narrative: Vital Signs: Last Vital Signs Temp 99 F 12/17/22 19:47 Pulse 98 12/17/22 19:47 Resp 14 12/17/22 19:47 BP 208/88 H 12/17/22 19:47 Pulse Ox 98 12/17/22 19:47 O2 Del Method Room Air 12/17/22 19:47 BMI result Body Mass Index 21.6 Constitutional - Awake and Alert, No apparent distress Eyes - PERRLA, EOMI Cardiovascular - S1S2, RRR, No edema Respiratory - Normal lung expansion, Normal respiratory effort, No respiratory distress, CTA bilaterally Gastrointestinal - b/l lower abd pain, ND; +BS; No rebound or guarding Extremities - no calf tenderness bilaterally, no swelling Skin - Warm/Dry Neurological - Alert & oriented x3 Psychological - Appropriate affect Results Labs 12/17/22 15:32 12/17/22 15:32 Labs: Laboratory Results - last 24 hr 12/17/22 12/17/22 12/17/22 15:20 15:32 15:32 MCV 93.7 MCH 30.5 MCHC 32.5 RDW 12.9 Plt Count 122 L D MPV 9.3 L Immature Gran % (Auto) 0.2 Neut % (Auto) 57.4 Lymph % (Auto) 32.8 Garrard % (Auto) 8.3 Eos % (Auto) 1.1 Baso % (Auto) 0.2 Lymph # (Auto) 1.7 Garrard # (Auto) 0.4 Eos # (Auto) 0.1 Baso # (Auto) 0.0 Abs Immat Gran (auto) 0.01 Absolute Neuts (auto) 3.0 Absolute Nucleated RBC 0.000 Nucleated RBC % (auto) 0.0 Anion Gap 9 L Estim Creat Clear Calc 76.1 Estimated GFR > 60 POC Glucose 195 H Random Glucose 192 H Calcium 9.1 Iron TIBC % Saturation Unsat Iron Binding Total Bilirubin 0.2 AST 14 ALT 13 Alkaline Phosphatase 74 Total Protein 6.6 Albumin 3.1 L Vitamin B12 Folate Stool Occult Blood Blood Type Antibody Screen Crossmatch 12/17/22 12/17/22 12/17/22 17:11 17:11 17:11 MCV MCH MCHC RDW Plt Count MPV Immature Gran % (Auto) Neut % (Auto) Lymph % (Auto) Garrard % (Auto) Eos % (Auto) Baso % (Auto) Lymph # (Auto) Garrard # (Auto) Eos # (Auto) Baso # (Auto) Abs Immat Gran (auto) Absolute Neuts (auto) Absolute Nucleated RBC Nucleated RBC % (auto) Anion Gap Estim Creat Clear Calc Estimated GFR POC Glucose Random Glucose Calcium Iron 45 TIBC 282 % Saturation 16 Unsat Iron Binding 237 Total Bilirubin AST ALT Alkaline Phosphatase Total Protein Albumin Vitamin B12 252 Folate 14.6 Stool Occult Blood NEGATIVE Blood Type Antibody Screen Crossmatch 12/17/22 17:11 MCV MCH MCHC RDW Plt Count MPV Immature Gran % (Auto) Neut % (Auto) Lymph % (Auto) Garrard % (Auto) Eos % (Auto) Baso % (Auto) Lymph # (Auto) Garrard # (Auto) Eos # (Auto) Baso # (Auto) Abs Immat Gran (auto) Absolute Neuts (auto) Absolute Nucleated RBC Nucleated RBC % (auto) Anion Gap Estim Creat Clear Calc Estimated GFR POC Glucose Random Glucose Calcium Iron TIBC % Saturation Unsat Iron Binding Total Bilirubin AST ALT Alkaline Phosphatase Total Protein Albumin Vitamin B12 Folate Stool Occult Blood Blood Type A Positive Antibody Screen NEGATIVE Crossmatch See Detail Assessment and Plan (1) Symptomatic anemia: Status: Acute (2) Orthostatic hypotension: Status: Acute Plan 52-year-old female with history of insulin-dependent type 2 diabetes, de pression, hyperlipidemia, hypertension admitted for symptomatic anemia of unclear etiology. #Acute on chronic symptomatic anemia -etiology unclear at this time. Iron studies, vitamin b12, folic acid normal. Haptoglobin and LDH pending but low suspicion for hemolysis given normal bilirubin. Stool occult blood negative -H/H 6.8/20.9% (was 8.9/27.4% on 12/07) -transfused 1 unit packed red blood cells in the ED -GI consult given acute drop in h/h -Consider hematology consult -Follow CBC -Monitor on telemetry #Orthostatic hypotension -likely 2/2 hypovolemia -Given 2L IVF in ED and transfused 1 unit prbc -repeat orthostatics am #Acute diarrhea -GI panel, CDiff pcr ordered -GI consult as above thouh stool occult negative #Chronic abd pain -CT abd/pelvis from 12/07 showed constipation with mildly dilated fluid and air- filled small bowel loops throughout the abdomen without clear transition zone suggesting ileus or partial small bowel obstruction -No change in abd pain, no n/v. Hold on repeat CT -GI consult as above # insulin-dependent type 2 diabetes -dose adjust basal insulin -Humalog on sliding scale -diabetic diet -hold oral anti hypoglycemics # Hypertension -uncontrolled. Labetalol 10 mg x1 ordered -continue lisinopril # hyperlipidemia -continue statin # diabetic polyneuropathy -continue gabapentin DVT prophylaxis- SCPs Full code Patient requires inpatient stay at least 2 midnights for management of acute on chronic symptomatic anemia requiring blood transfusion and significant orthostatic hypotension Time Spent With Patient Time: Total time managing care of this patient today ____ minutes. Quality Stroke Does the patient have a stroke diagnosis?: No VTE Prior VTE?: No VTE Risk Level:: Medical - moderate - high VTE Device Contraindication: N/A - Device Ordered VTE Drug Contraindication: Treatment Not Indicated
[2022-12-17 19:55] LABS: Platelet Estimate SLIGHTLY DECREASED (NORMAL); Platelet Morphology Comment NORM
[2022-12-17] MEDS: Labetalol HCL 100 MG/20 ML VIAL IVPUSH (20:01)
--- NOTE | 2022-12-17 20:09 | PC.NURSE ---
This conventional underwriter assumed care of pt at 1900, Pt A&Ox3, pt denies pain, blood running per MAR, blood pressure elevated meds given as documented, with positive effective. Pt requesting food, dinner tray given. Resting quietly. WCTM.
[2022-12-17 20:18] LABS: Lactate Dehydrogenase 183 U/L (122-220)
[2022-12-17 21:36] LABS: Glucose, Whole Blood 191 mg/dL (60-115)
[2022-12-17] MEDS: Gabapentin 300 MG CAPSULE PO (21:39)
[2022-12-17] MEDS: Insulin Glargine,Hum.rec.anlog 100 UNIT/ML 10 ML VIAL 14 UNIT SUBCUT (21:39)
--- NOTE | 2022-12-17 22:39 | PC.NURSE ---
Second unit of blood infusing, pt denies any new CP, or SOB. BP elevated Provider Dr. Douglass aware. No new orders at this time. wctm.
[2022-12-17] MEDS: Labetalol HCL 100 MG/20 ML VIAL 10 MG IVPUSH (22:46)
[2022-12-18] VITALS (12 sets, daily range): BP systolic 143–202; BP diastolic 59–86; PULSE 85–98; RESP 12–20; TEMP 36–37.2; O2SAT 95–97; BMI 21.8
[2022-12-18] MEDS: 0.9 % Sodium Chloride Flush 3 ML SYRINGE IVFLUSH ×3 (00:08→14:52)
[2022-12-18 00:15] LABS: Appearance Urine Turbid; Color Urine Yellow; Glucose Urine UA Negative (Negative); Leukocyte Esterase Urine Large (3+) (Negative); Nitrite Urine Negative (Negative); PH 5.5 (5.0-9.0); UMIC TRIGGER UACC YES; Urine Blood Small (1+) (Negative); Urine Ketones Negative (Negative); Urine Protein 30 (1+) mg/dL (Neg-Trace)
[2022-12-18 00:28] LABS: Bacteria Urine 4+ (None Seen); Hyaline Casts Urine 0-2 /LPF (0-2); RBC Urine 0-2 /HPF (0-2); UACC Culture Trigger YES; WBC Urine >50 /HPF (0-5)
--- NOTE | 2022-12-18 04:19 | PC.NURSE ---
Pt appears to be sleeping at this time, no apparent distress noted, VSS, wctm.
[2022-12-18 06:14] LABS: MANUAL DIFF FLAG NO
[2022-12-18 06:18] LABS: Basophils Percent Auto 0.4 % (0-2); Eosinophils Absolute Auto 0.1 X10*3/uL (0.0-0.4); Eosinophils Percent Auto 1.6 % (0-4); Hematocrit 35.3 % (37.0-47.0); Hemoglobin 11.7 g/dl (12.0-16.0); Imm Gran Abs Auto 0.01 X10*3/uL (0.00-0.03); Imm Gran Pct Auto 0.1 % (0.0-0.4); Lymphocytes Absolute Auto 3.2 X10*3/uL (1.2-4.9); Lymphocytes Percent Auto 47.4 % (20-40); Mean Corpuscular HGB Conc 33.1 g/dl (31.0-35.0); Mean Corpuscular Hemoglobin 29.1 pg (27.0-33.0); Mean Corpuscular Volume 87.8 fL (80.0-98.0); Mean Platelet Volume 8.9 fL (9.4-12.3); Monocytes Absolute Auto 0.7 X10*3/uL (0.1-1.2); Monocytes Percent Auto 9.6 % (2-11); Neutrophils Absolute Auto 2.8 x10*3/uL (2.0-8.3); Neutrophils Percent Auto 40.9 % (45-73); Platelet Count 144 X10*3/uL (160-400); Red Blood Count 4.02 X10*6/uL (4.20-5.50); Red Cell Distribution Width 13.9 % (11.0-16.0); White Blood Count 6.8 X10*3/uL (4.8-10.8)
[2022-12-18 06:32] LABS: Anion Gap 10 (12-20); Blood Urea Nitrogen 16 mg/dL (9-16); Calcium 9.4 mg/dL (8.4-10.2); Carbon Dioxide 28 mmol/L (22-29); Chloride 109 mmol/L (96-108); Creatinine Clr Calc Pharmacy 72.5; Estimated Glomerular Filt Rate > 60; Glucose Random 117 mg/dL (60-115); Potassium 4.5 mmol/L (3.3-5.1); Sodium 142 mmol/L (135-145)
[2022-12-18] MEDS: Atorvastatin Calcium 80 MG TABLET PO (07:32)
[2022-12-18] MEDS: lisinopriL 10 MG TABLET PO (07:32)
[2022-12-18] MEDS: Gabapentin 300 MG CAPSULE PO ×3 (07:32→20:55)
[2022-12-18] MEDS: Sennosides/Docusate Sodium TABLET 1 TAB PO (07:32)
[2022-12-18] MEDS: ondansetron HCL 4 MG/2 ML VIAL IVPUSH (07:33)
--- NOTE | 2022-12-18 07:39 | PC.NURSE ---
patient sitting up in bed, eating breakfast, morning medications given. patient states she is having some dizziness. VSS, patient PRN zofran utilized for nausea. Call sampson within reach
[2022-12-18 08:39] LABS: Immature Retic Fraction 6.2 % (3.0-15.9); Retic HGB Equivalent 34.6 pg (30.0-35.0); Reticulocyte Percent 1.4 % (0.5-1.8); Reticulocytes Absolute 0.056 X10*6/uL (0.026-0.095)
[2022-12-18 11:13] LABS: Glucose, Whole Blood 164 mg/dL (60-115)
--- NOTE | 2022-12-18 12:28 | P.CNGI_ITS ---
History of Present Illness Data of Consult Service Date: 12/18/22 Primary Care Provider: [facility] HPI Reason for consult: anemia 52-year-old female with history of insulin-dependent type 2 diabetes, chronic normocytic anemia, depression, hyperlipidemia, hypertension who I am seeing for assessment for anemia She presented to the ED with fatigue, weakness and generalized abdominal pain 8/10 without any relieving or exacerbating factors. She also noted watery diarrhea but no melena or rectal bleeding. Patient was noted to have low BP and anemia with HGB 6.8 g/dl . Received IVF, ondansetron, and 2 unit packed red blood cells with HGB increasing to 11.7 g/dl Denies fevers, chills, nausea, vomiting, cough, shortness of breath, chest pain.? She denies any dysuria, or hematuria, bleeding gums, vaginal bleeding, bruising. Denies using nsaids, or blood thinners, aspirin Today when I went I ws interviewing her she was eating a normal diet, and said she has no symptoms now and feels back to normal. She has not had any more diarrhea and abdominal pain is now gone. SHe has never had egd or colonoscopy LABS: H/H 6.8/20.9%----went to 11 g/dl after PRBC, MCV 93.7, platelets 122.? Renal function normal, Vitamin B12 and folic acid levels normal. iron studies normal. Stool occult blood negative UA pos for leuk esterase, micorscopic blood, protein, white cells IMAGING: CT of the abdomen/pelvis: ED visit from 12/07 showing excessive stool burden with mildly dilated fluid and air-filled small bowel loops throughout the abdomen without clear transition zone suggestive of ileus versus partial small- bowel obstruction.? could not rule out underlying pyelonephritis but no perinephric fat stranding.? Stable bilateral mildly dilated proximal ureters but no evidence of stones. Review of Systems Review of Systems: Constitutional : No Weight loss, No Fever, No Chills ENT/Mouth : No sore throat, No Rhinorrhea Eyes: No Swelling, No Redness Cardiovascular : No Chest Pain, No SOB, No Edema Respiratory : No Cough, No Sputum, No Wheezing Gastrointestinal : see HPI Genitourinary : NO Dysuria, No Urinary Frequency, No Hematuria, No Urgency Musculoskeletal : No joint pain, No Myalgias, No Joint Swelling Skin : No Skin Lesions, No rash Neuro : + Weakness, No Numbness, No Dizziness, No Headache Psych : No Anxiety/Panic, No Depression Heme/Lymph: No Bruising, No Lymphadenopathy Endocrine : No Polyuria, No Polydipsia All other systems reviewed and are negative. [facility] Past Medical History Medical History Anemia Brain lesion Depression HLD (hyperlipidemia) Iron deficiency anemia Type 2 diabetes mellitus Family History Family History Other Hypertension Pertinent family history: No FH of stomach or colon disease, cancer Social History Social History Household Members: Children and None Household Members Other:: Daughter Housing: Apartment Do you presently have visiting nurse or other home services: Yes ([facility]) Unable to assess alcohol history related to: Unable to respond Alcohol intake: never Patient Tobacco Use Status: Never used Tobacco e-Cigarette/Vaping Use: Never Used Second Hand Smoke Exposure: No Advance Directives Date on File: 06/19/21 service: No Current occupational status: unemployed Meds Allergies Allergy/AdvReac Type Severity Reaction Status Date / Time shrimp Allergy Swelling Verified 12/07/22 11:37 Active Medications: Current Medications Acetaminophen (Acetaminophen 325 Mg Tablet) 650 mg PO Q6H PRN PRN Reason: Pain, Mild (Pain Scale 1-3) Atorvastatin Calcium (Atorvastatin Calcium 80 Mg Tablet) 80 mg PO DAILY [facility] Last Admin: 12/18/22 07:32 Dose: 80 mg Gabapentin (Gabapentin 300 Mg Capsule) 300 mg PO TID JM Last Admin: 12/18/22 07:32 Dose: 300 mg Insulin Glargine (Insulin Glargine,Hum.Rec.Anlog 100 Unit/Ml 10 Ml Vial) 14 unit SUBCUT BEDTIME JM Last Admin: 12/17/22 21:39 Dose: 14 unit Insulin Human Lispro (Insulin Lispro 100 Unit/Ml 3 Ml Vial) 0 unit SUBCUT QIDACHS [facility]; Protocol Last Admin: 12/18/22 12:10 Dose: Not Given Lisinopril (Lisinopril 10 Mg Tablet) 10 mg PO DAILY [facility]; Protocol Last Admin: 12/18/22 07:32 Dose: 10 mg Ondansetron HCl (Ondansetron Hcl 4 Mg/2 Ml Vial) 4 mg IVPUSH Q8H PRN PRN Reason: Nausea and Vomiting Last Admin: 12/18/22 07:33 Dose: 4 mg Pharmacy Consult (Consult Rx Perform Med Rec) 1 each MISCELLANE ONCE PRN PRN Reason: Consult order Polyethylene Glycol (Polyethylene Glycol 3350 17 Gm Powd.Pack) 17 gm PO DAILY [facility] Last Admin: 12/18/22 10:02 Dose: Not Given Sodium Chloride (0.9 % Sodium Chloride Flush 3 Ml Syringe) 3 ml IVFLUSH QSHIFT [facility] Last Admin: 12/18/22 07:33 Dose: 3 ml Home Medications Medication Instructions Recorded Confirmed Last Taken Type aspirin 81 mg tablet,delayed 1 tab PO DAILY 07/21/22 12/17/22 10/17/22 History release insulin glargine 100 unit/mL (3 18 unit subcut BEDTIME 07/21/22 12/17/22 10/17/22 History mL) subcutaneous pen (Lantus Solostar U-100 Insulin) insulin lispro 100 unit/mL See Protocol subcut TIDAC 07/21/22 12/17/22 10/17/22 History subcutaneous pen pioglitazone 30 mg tablet 1 tab PO DAILY 07/21/22 12/17/22 10/17/22 History gabapentin 300 mg capsule 300 mg PO TID 12/17/22 12/17/22 Unknown History lisinopril 10 mg tablet 10 mg PO QAM 12/17/22 12/17/22 Unknown History polyethylene glycol 3350 17 17 g PO DAILY 12/17/22 12/17/22 Unknown History gram/dose oral powder (Gavilax) rosuvastatin 40 mg tablet 40 mg PO QAM 12/17/22 12/17/22 Unknown History sennosides 8.6 mg-docusate sodium 1 tab PO QAM 12/17/22 12/17/22 Unknown History 50 mg tablet (Stimulant Laxative Plus) Physical Exam Vital Signs: Vital Signs: Last Vital Signs Temp 97.8 F 12/18/22 08:48 Pulse 98 12/18/22 08:52 Resp 14 12/18/22 08:48 BP 162/76 H 12/18/22 08:52 Pulse Ox 97 12/18/22 08:48 O2 Del Method Room Air 12/18/22 08:48 BMI result Body Mass Index 21.8 EXAM: GENERAL: The patient is relaxed, enjoying her food VITAL SIGNS:see workflow HEENT: Nonicteric sclerae, PERRLA, EOMI. Oropharynx clear. Moist mucous membranes. Conjunctivae appear well perfused. No thyroid mass. CHEST: Chest wall is nontender. HEART: Regular rate and rhythm without murmurs. LUNGS: Clear to auscultation bilaterally. ABDOMEN: Soft, positive bowel sounds, tender mid abdomen, no organomegaly.no flank tenderness GENITAL:not done RECTAL: not done SKIN: No rash, no excessive bruising, petechiae, or purpura. NEUROLOGIC: Cranial nerves II-XII intact without motor/sensory def Psych- normal Results Labs 12/18/22 06:08 12/18/22 06:08 Labs: Short CBC 12/17/22 12/18/22 Range/Units 15:32 06:08 WBC 5.3 6.8 (4.8-10.8) X10*3/uL Hgb 6.8 L* D 11.7 L D (12.0-16.0) g/dl Hct 20.9 L* D 35.3 L D (37.0-47.0) % Plt Count 122 L D 144 L (160-400) X10*3/uL BMP 12/17/22 12/18/22 15:32 06:08 Sodium 140 142 Potassium 4.4 4.5 Chloride 105 109 H Carbon Dioxide 30 H 28 BUN 19 H 16 Creatinine 0.80 0.84 Calcium 9.1 9.4 Liver Function 12/17/22 Range/Units 15:32 Total Bilirubin 0.2 (0.0-1.0) mg/dL AST 14 (5-31) U/L ALT 13 (0-31) U/L Alkaline Phosphatase 74 (39-117) U/L Albumin 3.1 L (3.5-5.0) g/dL Urine 12/18/22 Range/Units 00:08 Urine Color Yellow Urine Appearance Turbid Urine pH 5.5 (5.0-9.0) Ur Specific Salley 1.010 (1.005-1.025) Urine Protein 30 (1+) H (Neg-Trace) mg/dL Urine Glucose (UA) Negative (Negative) mg/dL Imaging CT scan - abdomen: My impression: degen spinal changes, constipation, possible sludge, stone n distal cbd, thickened and contracted stomach. Assessment and Plan (1) Symptomatic anemia: Status: Acute (2) Pyelonephritis: Status: Acute (3) Schistocytes on peripheral blood smear: Status: Acute Plan 1/ Acute on chronic anemia, with several associated symptoms which have resolved per her repor after PRBC. SHe has never had egd or colonoscopy and refuses these even though it was explained to her she would receive MAC. She does have a dirty UA which may be a sign of infection melissa with dilated ureters noted on imaging but denies any sx. Doesn;t appear to have TTp or HUS. PLAN: 1/ If she changes her mind we can also schedule her for egd, colo 2/ stool Ag for H pylori--if pos then treat. 3/ consider low dose daily iron and PPI 4/ await urine culture result 5/ guide setter f/u with her in the outpatient GI clinic 6/ hemolysis labs--pos for schistocytes but normal retics and LDH, cont to monitor --add alicia test Time Spent With Patient Time: Total time managing care of this patient today ____ minutes. Procedures Date of Service Date of Service: 12/18/22
--- NOTE | 2022-12-18 15:43 | HO.PM.IMPN ---
Subjective Subjective Date of Service: 12/18/22 Interval History: anemia ,uncontrolled htn Review of Systems H&H seems to improved after transfusion, denies any chest pain or shortness of breath but has some dizziness. Blood pressure fluctuating Physical Exam Vital Signs: Vital Signs: Last Vital Signs Temp 97.8 F 12/18/22 08:48 Pulse 98 12/18/22 08:52 Resp 14 12/18/22 08:48 BP 202/86 H 12/18/22 15:33 Pulse Ox 97 12/18/22 08:48 O2 Del Method Room Air 12/18/22 08:48 BMI result Body Mass Index 21.8 Appearance: Alert.? Oriented X3.?some dizziness cvs: [id number], [id number] . res: clear to auscultation ,no rhonchii or wheezing abd: no rebound or guarding ,nt, bs present. ext pulses present , no cyanosis . neuro: axo3 , nonfocal. Objective Data Active Medications Acetaminophen (Acetaminophen 325 Mg Tablet) 650 mg PO Q6H PRN PRN Reason: Pain, Mild (Pain Scale 1-3) Amlodipine Besylate (Amlodipine Besylate 5 Mg Tablet) 5 mg PO ONCE ONE; Protocol Stop: 12/18/22 15:42 Amlodipine Besylate (Amlodipine Besylate 5 Mg Tablet) 5 mg PO DAILY [facility]; Protocol Atorvastatin Calcium (Atorvastatin Calcium 80 Mg Tablet) 80 mg PO DAILY [facility] Last Admin: 12/18/22 07:32 Dose: 80 mg Documented By: EMMANUEL Gabapentin (Gabapentin 300 Mg Capsule) 300 mg PO TID [facility] Last Admin: 12/18/22 14:52 Dose: 300 mg Documented By: NICHOLAS Insulin Glargine (Insulin Glargine,Hum.Rec.Anlog 100 Unit/Ml 10 Ml Vial) 14 unit SUBCUT BEDTIME [facility] Last Admin: 12/17/22 21:39 Dose: 14 unit Documented By: LUMA Insulin Human Lispro (Insulin Lispro 100 Unit/Ml 3 Ml Vial) 0 unit SUBCUT QIDACHS [facility]; Protocol Last Admin: 12/18/22 12:10 Dose: Not Given Documented By: NICHOLAS Non-Admin Reason: not eating lunch Lisinopril (Lisinopril 10 Mg Tablet) 10 mg PO DAILY [facility]; Protocol Last Admin: 12/18/22 07:32 Dose: 10 mg Documented By: EMMANUEL Ondansetron HCl (Ondansetron Hcl 4 Mg/2 Ml Vial) 4 mg IVPUSH Q8H PRN PRN Reason: Nausea and Vomiting Last Admin: 12/18/22 07:33 Dose: 4 mg Documented By: EMMANUEL Pharmacy Consult (Consult Rx Perform Med Rec) 1 each MISCELLANE ONCE PRN PRN Reason: Consult order Polyethylene Glycol (Polyethylene Glycol 3350 17 Gm Powd.Pack) 17 gm PO DAILY [facility] Last Admin: 12/18/22 10:02 Dose: Not Given Documented By: NICHOLAS Non-Admin Reason: Physician Held Med Sodium Chloride (0.9 % Sodium Chloride Flush 3 Ml Syringe) 3 ml IVFLUSH QSHIFT [facility] Last Admin: 12/18/22 14:52 Dose: 3 ml Documented By: NICHOLAS Labs 12/18/22 06:08 12/18/22 06:08 Labs: Laboratory Results - last 24 hr 12/17/22 12/17/22 12/17/22 15:32 15:32 17:11 MCV 93.7 MCH 30.5 MCHC 32.5 RDW 12.9 Plt Count 122 L D MPV 9.3 L Immature Gran % (Auto) 0.2 Neut % (Auto) 57.4 Lymph % (Auto) 32.8 [place] % (Auto) 8.3 Eos % (Auto) 1.1 Baso % (Auto) 0.2 Lymph # (Auto) 1.7 [place] # (Auto) 0.4 Eos # (Auto) 0.1 Baso # (Auto) 0.0 Abs Immat Gran (auto) 0.01 Absolute Neuts (auto) 3.0 Absolute Nucleated RBC 0.000 Nucleated RBC % (auto) 0.0 Neutrophils % (Manual) 62 Band Neutrophils % 2 L Lymphocytes % (Manual) 29 Monocytes % (Manual) 5 Eosinophils % (Manual) 2 Abs Neuts (Manual) 3.4 Lymphocytes # (Manual) 1.5 Monocytes # (Manual) 0.3 Eosinophils # (Manual) 0.1 Platelet Estimate SLIGHTLY DECREASED Plt Morphology Comment NORM RBC Morphology NOTED Hypochromasia 1+ (5-14) Schistocytes 1+ (0-2) Absolute Retic Percent Retic Immature Retic Fraction Retic Hgb Equivalent Anion Gap 9 L Estim Creat Clear Calc 76.1 Estimated GFR > 60 POC Glucose Random Glucose 192 H Calcium 9.1 Iron 45 TIBC 282 % Saturation 16 Unsat Iron Binding 237 Total Bilirubin 0.2 AST 14 ALT 13 Alkaline Phosphatase 74 Lactate Dehydrogenase 183 Total Protein 6.6 Albumin 3.1 L Vitamin B12 Folate Urine Color Urine Appearance Urine pH Ur Specific [place] Urine Protein Urine Glucose (UA) Urine Ketones Urine Blood Urine Nitrite Ur Leukocyte Esterase Urine RBC Urine WBC Ur Squamous Epith Cells Urine Bacteria Hyaline Casts Stool Occult Blood Blood Type Antibody Screen Crossmatch 12/17/22 12/17/22 12/17/22 17:11 17:11 17:11 MCV MCH MCHC RDW Plt Count MPV Immature Gran % (Auto) Neut % (Auto) Lymph % (Auto) [place] % (Auto) Eos % (Auto) Baso % (Auto) Lymph # (Auto) [place] # (Auto) Eos # (Auto) Baso # (Auto) Abs Immat Gran (auto) Absolute Neuts (auto) Absolute Nucleated RBC Nucleated RBC % (auto) Neutrophils % (Manual) Band Neutrophils % Lymphocytes % (Manual) Monocytes % (Manual) Eosinophils % (Manual) Abs Neuts (Manual) Lymphocytes # (Manual) Monocytes # (Manual) Eosinophils # (Manual) Platelet Estimate Plt Morphology Comment RBC Morphology Hypochromasia Schistocytes Absolute Retic Percent Retic Immature Retic Fraction Retic Hgb Equivalent Anion Gap Estim Creat Clear Calc Estimated GFR POC Glucose Random Glucose Calcium Iron TIBC % Saturation Unsat Iron Binding Total Bilirubin AST ALT Alkaline Phosphatase Lactate Dehydrogenase Total Protein Albumin Vitamin B12 252 Folate 14.6 Urine Color Urine Appearance Urine pH Ur Specific [place] Urine Protein Urine Glucose (UA) Urine Ketones Urine Blood Urine Nitrite Ur Leukocyte Esterase Urine RBC Urine WBC Ur Squamous Epith Cells Urine Bacteria Hyaline Casts Stool Occult Blood NEGATIVE Blood Type A Positive Antibody Screen NEGATIVE Crossmatch See Detail 12/17/22 12/18/22 12/18/22 21:34 00:08 06:08 MCV 87.8 D MCH 29.1 MCHC 33.1 RDW 13.9 Plt Count 144 L MPV 8.9 L Immature Gran % (Auto) 0.1 Neut % (Auto) 40.9 L Lymph % (Auto) 47.[address] % (Auto) 9.6 Eos % (Auto) 1.6 Baso % (Auto) 0.4 Lymph # (Auto) 3.2 [place] # (Auto) 0.7 Eos # (Auto) 0.1 Baso # (Auto) 0.0 Abs Immat Gran (auto) 0.01 Absolute Neuts (auto) 2.8 Absolute Nucleated RBC 0.000 Nucleated RBC % (auto) 0.0 Neutrophils % (Manual) Band Neutrophils % Lymphocytes % (Manual) Monocytes % (Manual) Eosinophils % (Manual) Abs Neuts (Manual) Lymphocytes # (Manual) Monocytes # (Manual) Eosinophils # (Manual) Platelet Estimate Plt Morphology Comment RBC Morphology Hypochromasia Schistocytes Absolute Retic 0.056 Percent Retic 1.4 Immature Retic Fraction 6.2 Retic Hgb Equivalent 34.6 Anion Gap Estim Creat Clear Calc Estimated GFR POC Glucose 191 H Random Glucose Calcium Iron TIBC % Saturation Unsat Iron Binding Total Bilirubin AST ALT Alkaline Phosphatase Lactate Dehydrogenase Total Protein Albumin Vitamin B12 Folate Urine Color Yellow Urine Appearance Turbid Urine pH 5.5 Ur Specific [place] 1.010 Urine Protein 30 (1+) H Urine Glucose (UA) Negative Urine Ketones Negative Urine Blood Small (1+) H Urine Nitrite Negative Ur Leukocyte Esterase Large (3+) H Urine RBC 0-2 Urine WBC >50 H Ur Squamous Epith Cells 3-5 Urine Bacteria 4+ Hyaline Casts 0-2 Stool Occult Blood Blood Type Antibody Screen Crossmatch 12/18/22 12/18/22 06:08 11:09 MCV MCH MCHC RDW Plt Count MPV Immature Gran % (Auto) Neut % (Auto) Lymph % (Auto) [place] % (Auto) Eos % (Auto) Baso % (Auto) Lymph # (Auto) [place] # (Auto) Eos # (Auto) Baso # (Auto) Abs Immat Gran (auto) Absolute Neuts (auto) Absolute Nucleated RBC Nucleated RBC % (auto) Neutrophils % (Manual) Band Neutrophils % Lymphocytes % (Manual) Monocytes % (Manual) Eosinophils % (Manual) Abs Neuts (Manual) Lymphocytes # (Manual) Monocytes # (Manual) Eosinophils # (Manual) Platelet Estimate Plt Morphology Comment RBC Morphology Hypochromasia Schistocytes Absolute Retic Percent Retic Immature Retic Fraction Retic Hgb Equivalent Anion Gap 10 L Estim Creat Clear Calc 72.5 Estimated GFR > 60 POC Glucose 164 H Random Glucose 117 H Calcium 9.4 Iron TIBC % Saturation Unsat Iron Binding Total Bilirubin AST ALT Alkaline Phosphatase Lactate Dehydrogenase Total Protein Albumin Vitamin B12 Folate Urine Color Urine Appearance Urine pH Ur Specific [place] Urine Protein Urine Glucose (UA) Urine Ketones Urine Blood Urine Nitrite Ur Leukocyte Esterase Urine RBC Urine WBC Ur Squamous Epith Cells Urine Bacteria Hyaline Casts Stool Occult Blood Blood Type Antibody Screen Crossmatch Assessment and Plan (1) Symptomatic anemia: Status: Acute (2) Orthostatic hypotension: Status: Acute Plan 52-year-old female with history of insulin-dependent type 2 diabetes, depression, hyperlipidemia, hypertension admitted for symptomatic anemia of unclear etiology. Acute on chronic symptomatic anemia-etiology unclear at this time. Iron studies, vitamin b12, folic acid ,ldh normal. Haptoglobin pending but low suspicion for hemolysis given normal bilirubin.? Stool occult blood negative H/H 6.8/20.9% (was 8.9/27.4% on 12/07) s/p 1 prbc -now h/h 11.7/35.3 Gi eval,Monitor on telemetry Orthostatic hypotension-likely 2/2 hypovolemia orthostatics positive but sbp still 160 patient probable has has supine htn/orthostasis continue lisinopril , will add amlodipine -since sbp still in 200. Acute diarrhea -GI panel, CDiff pcr ordered -GI consult as above thouh stool occult negative Chronic abd pain -CT abd/pelvis from 12/07 showed constipation with mildly dilated fluid and air-filled small bowel loops throughout the abdomen without clear transition zone suggesting ileus or partial small bowel obstruction -No change in abd pain, no n/v. Hold on repeat CT -GI consult as above insulin-dependent type 2 diabetes -dose adjust basal insulin -Humalog on sliding scale -diabetic diet -hold oral anti hypoglycemics Hypertension -uncontrolled.? Labetalol 10 mg x1 ordered -continue lisinopril hyperlipidemia -continue statin diabetic polyneuropathy -continue gabapentin asymptomatic pyuria/bacteruria-need to wait for cultures d/w id -will decide use of antibiotics depends on urine cultures. DVT prophylaxis- SCPs Full code ongoing acute on chronic symptomatic anemia requiring blood transfusion and significant orthostatic hypotension/spine htn -need bp moniterin /blood pressure med adjustment Time Spent With Patient Time: Total time managing care of this patient today ____ minutes. Quality Stroke Does the patient have a stroke diagnosis?: No VTE Prior VTE?: No VTE Risk Level:: Medical - moderate - high VTE Device Contraindication: N/A - Device Ordered VTE Drug Contraindication: Treatment Not Indicated
[2022-12-18] MEDS: amLODIPine Besylate 5 MG TABLET PO (15:52)
[2022-12-18 16:03] LABS: Glucose, Whole Blood 293 mg/dL (60-115)
[2022-12-18] MEDS: Insulin Lispro 100 UNIT/ML 3 ML VIAL SUBCUT ×2 (16:55→20:56)
[2022-12-18 20:26] LABS: Glucose, Whole Blood 237 mg/dL (60-115)
[2022-12-18] MEDS: Insulin Glargine,Hum.rec.anlog 100 UNIT/ML 10 ML VIAL 14 UNIT SUBCUT (20:56)
[2022-12-19] MEDS: 0.9 % Sodium Chloride Flush 3 ML SYRINGE IVFLUSH ×4 (00:28→22:52)
[2022-12-19 03:50] VITALS: BP 158/82; PULSE 93; RESP 18; TEMP 36.2; O2SAT 97
[2022-12-19 07:49] LABS: Glucose, Whole Blood 147 mg/dL (60-115)
[2022-12-19 08:00] VITALS: BP 160/80; BP 203/93; PULSE 96; RESP 18; TEMP 36.3; O2SAT 96
[2022-12-19 08:16] VITALS: BP 182/76
[2022-12-19 08:35] VITALS: BP 129/59
[2022-12-19] MEDS: Atorvastatin Calcium 80 MG TABLET PO (08:42)
[2022-12-19] MEDS: Gabapentin 300 MG CAPSULE PO ×3 (08:42→22:51)
[2022-12-19] MEDS: lisinopriL 10 MG TABLET PO (08:42)
[2022-12-19] MEDS: polyethylene glycoL 3350 17 GM POWD.PACK PO (08:43)
[2022-12-19 08:45] LABS: Hematocrit 38.8 % (37.0-47.0); Hemoglobin 12.8 g/dl (12.0-16.0)
[2022-12-19 11:17] LABS: Glucose, Whole Blood 258 mg/dL (60-115)
[2022-12-19] MEDS: Insulin Lispro 100 UNIT/ML 3 ML VIAL SUBCUT ×3 (11:28→22:51)
--- NOTE | 2022-12-19 12:32 | PM.CNNEP ---
History of Present Illness Reason for Consult Consult date: 12/19/22 Chief Complaint Chief complaint: Symptomatic anemia,abd pain History of Present Illness Narrative: 52-year-old female presented to the ED for evaluation of low blood pressure.? States she took her blood pressure at home and systolic was in the low 90s.? She has also been experiencing bilateral leg pain.? She has had longstanding abdominal pain for the last 3 days has had watery diarrhea with 3 episodes on the day of presentation.? Denies any melena or hematochezia.? Has felt fatigued, lightheaded, and generally weak.? No fevers, chills, nausea, vomiting, cough, shortness of breath, chest pain.? On arrival, patient noted to have orthostatic hypotension with blood pressure down to 77/40 on standing.? Has otherwise been hypertensive to 214/98 with intermittent tachycardia to 101.? She is afebrile.? There is new leukocytosis.? H/H 6.8/20.9%, MCV 93.7, platelets 122.? Renal function normal, electrolytes largely unremarkable.? In the ED, received 2 L IVF, ondansetron, and 1 unit packed red blood cells. GI has seen her. Nephrology has been consulted to assist in her clinical care during her current hospital stay Review of Systems Review of Systems Yes all other systems are reviewed and are negative PMF Past Medical History Medical History Anemia Brain lesion Depression HLD (hyperlipidemia) Iron deficiency anemia Type 2 diabetes mellitus Family History Family History Other Hypertension Social History Social History Household Members: Children and None Household Members Other:: Daughter Housing: Apartment Do you presently have visiting nurse or other home services: Yes ([facility]) Unable to assess alcohol history related to: Unable to respond Alcohol intake: never Patient Tobacco Use Status: Never used Tobacco e-Cigarette/Vaping Use: Never Used Second Hand Smoke Exposure: No Advance Directives Date on File: 06/19/21 service: No Current occupational status: unemployed Meds Allergies Allergy/AdvReac Type Severity Reaction Status Date / Time shrimp Allergy Swelling Verified 12/07/22 11:37 Active Medications: Current Medications Acetaminophen (Acetaminophen 325 Mg Tablet) 650 mg PO Q6H PRN PRN Reason: Pain, Mild (Pain Scale 1-3) Amlodipine Besylate (Amlodipine Besylate 5 Mg Tablet) 5 mg PO DAILY [facility]; Protocol Last Admin: 12/19/22 08:38 Dose: Not Given Atorvastatin Calcium (Atorvastatin Calcium 80 Mg Tablet) 80 mg PO DAILY [facility] Last Admin: 12/19/22 08:42 Dose: 80 mg Gabapentin (Gabapentin 300 Mg Capsule) 300 mg PO TID [facility] Last Admin: 12/19/22 08:42 Dose: 300 mg Insulin Glargine (Insulin Glargine,Hum.Rec.Anlog 100 Unit/Ml 10 Ml Vial) 14 unit SUBCUT BEDTIME [facility] Last Admin: 12/18/22 20:56 Dose: 14 unit Insulin Human Lispro (Insulin Lispro 100 Unit/Ml 3 Ml Vial) 0 unit SUBCUT QIDACHS [facility]; Protocol Last Admin: 12/19/22 11:28 Dose: 6 unit Lisinopril (Lisinopril 10 Mg Tablet) 10 mg PO DAILY [facility]; Protocol Last Admin: 12/19/22 08:42 Dose: 10 mg Ondansetron HCl (Ondansetron Hcl 4 Mg/2 Ml Vial) 4 mg IVPUSH Q8H PRN PRN Reason: Nausea and Vomiting Last Admin: 12/18/22 07:33 Dose: 4 mg Pharmacy Consult (Consult Rx Perform Med Rec) 1 each MISCELLANE ONCE PRN PRN Reason: Consult order Polyethylene Glycol (Polyethylene Glycol 3350 17 Gm Powd.Pack) 17 gm PO DAILY [facility] Last Admin: 12/19/22 08:43 Dose: 17 gm Sodium Chloride (0.9 % Sodium Chloride Flush 3 Ml Syringe) 3 ml IVFLUSH QSHIFT [facility] Last Admin: 12/19/22 08:43 Dose: 3 ml Home Medications Medication Instructions Recorded Confirmed Last Taken Type aspirin 81 mg tablet,delayed 1 tab PO DAILY 07/21/22 12/17/22 10/17/22 History release insulin glargine 100 unit/mL (3 18 unit subcut BEDTIME 07/21/22 12/17/22 10/17/22 History mL) subcutaneous pen (Lantus Solostar U-100 Insulin) insulin lispro 100 unit/mL See Protocol subcut TIDAC 07/21/22 12/17/22 10/17/22 History subcutaneous pen pioglitazone 30 mg tablet 1 tab PO DAILY 07/21/22 12/17/22 10/17/22 History gabapentin 300 mg capsule 300 mg PO TID 12/17/22 12/17/22 Unknown History lisinopril 10 mg tablet 10 mg PO QAM 12/17/22 12/17/22 Unknown History polyethylene glycol 3350 17 17 g PO DAILY 12/17/22 12/17/22 Unknown History gram/dose oral powder (Gavilax) rosuvastatin 40 mg tablet 40 mg PO QAM 12/17/22 12/17/22 Unknown History sennosides 8.6 mg-docusate sodium 1 tab PO QAM 12/17/22 12/17/22 Unknown History 50 mg tablet (Stimulant Laxative Plus) Physical Exam Vital Signs: Last Vital Signs Temp 97.4 F 12/19/22 08:00 Pulse 96 12/19/22 08:00 Resp 18 12/19/22 08:00 BP 129/59 L 12/19/22 08:35 Pulse Ox 96 12/19/22 08:00 O2 Del Method Room Air 12/19/22 08:00 BMI result Body Mass Index 21.8 Const General: no acute distress Eyes EOM: EOMs intact bilaterally Neck Neck: Yes supple Resp Auscultation: diminished lung sounds Cardio Rate: regular rate GI Palpation (GI): Soft to palpation Neuro General: moves all extremities Results Lab Results 12/19/22 08:24 12/18/22 06:08 Lab results: Chemistry 12/17/22 12/18/22 15:32 06:08 Sodium 140 142 Potassium 4.4 4.5 Carbon Dioxide 30 H 28 BUN 19 H 16 Creatinine 0.80 0.84 Calcium 9.1 9.4 Hematology 12/17/22 12/18/22 12/19/22 15:32 06:08 08:24 WBC 5.3 6.8 Hgb 6.8 L* D 11.7 L D 12.8 Plt Count 122 L D 144 L Urinalysis 12/18/22 00:08 Urine Color Yellow Urine Appearance Turbid Urine pH 5.5 Ur Specific [place] 1.010 Urine Protein 30 (1+) H Urine Glucose (UA) Negative Urine Ketones Negative Urine Blood Small (1+) H Urine Nitrite Negative Ur Leukocyte Esterase Large (3+) H Urine RBC 0-2 Urine WBC >50 H Ur Squamous Epith Cells 3-5 Hyaline Casts 0-2 Assessment and Plan (1) Hypertension: Status: Acute Time Spent With Patient Time: Had volume contraction with low BP/orthostasis- resolved H/O hypertension; On ACEI and Amlodipine K - OK; Renal function normal C/W current management for now Shall follow up in the office when D/Alex Procedures Date of Service Date of Service: 12/19/22
--- NOTE | 2022-12-19 13:17 | MHC.CM.PN ---
Female 52 dx anemia ab pain. Patient states that her dtr lives with her. She is her [employer] thru [employer]. Patient states that she has a walker. She also says that she is not ambulatory. HCP on file. [facility] is in place. Clinical information has been sent. DP resume [facility] BLS transport. An supervisor product inspection was used for the interview.
--- NOTE | 2022-12-19 14:50 | P.PNIM_ITS ---
Subjective Subjective Date of Service: 12/19/22 Interval History: anemia ,possible spine htn/orthostasis Review of Systems Denies any chest pain shortness of breath or dizziness Physical Exam Vital Signs: Vital Signs: Last Vital Signs Temp 97.4 F 12/19/22 08:00 Pulse 96 12/19/22 08:00 Resp 18 12/19/22 08:00 BP 129/59 L 12/19/22 08:35 Pulse Ox 96 12/19/22 08:00 O2 Del Method Room Air 12/19/22 08:00 BMI result Body Mass Index 21.8 Appearance: Alert.? Oriented X3.?some dizziness cvs: rrr, [id number] . res: clear to auscultation ,no rhonchii or wheezing abd: no rebound or guarding ,nt, bs present. ext pulses present , no cyanosis . neuro: axo3 , nonfocal. Objective Data Active Medications Acetaminophen (Acetaminophen 325 Mg Tablet) 650 mg PO Q6H PRN PRN Reason: Pain, Mild (Pain Scale 1-3) Amlodipine Besylate (Amlodipine Besylate 5 Mg Tablet) 5 mg PO DAILY [facility]; Protocol Last Admin: 12/19/22 08:38 Dose: Not Given Documented By: LAMAR Non-Admin Reason: Physician Approved Atorvastatin Calcium (Atorvastatin Calcium 80 Mg Tablet) 80 mg PO DAILY [facility] Last Admin: 12/19/22 08:42 Dose: 80 mg Documented By: LAMAR Gabapentin (Gabapentin 300 Mg Capsule) 300 mg PO TID [facility] Last Admin: 12/19/22 14:24 Dose: 300 mg Documented By: LAMAR Insulin Glargine (Insulin Glargine,Hum.Rec.Anlog 100 Unit/Ml 10 Ml Vial) 14 unit SUBCUT BEDTIME [facility] Last Admin: 12/18/22 20:56 Dose: 14 unit Documented By: PAULETTE Insulin Human Lispro (Insulin Lispro 100 Unit/Ml 3 Ml Vial) 0 unit SUBCUT QIDACHS [facility]; Protocol Last Admin: 12/19/22 11:28 Dose: 6 unit Documented By: LAMAR Lisinopril (Lisinopril 10 Mg Tablet) 10 mg PO DAILY [facility]; Protocol Last Admin: 12/19/22 08:42 Dose: 10 mg Documented By: LAMAR Ondansetron HCl (Ondansetron Hcl 4 Mg/2 Ml Vial) 4 mg IVPUSH Q8H PRN PRN Reason: Nausea and Vomiting Last Admin: 12/18/22 07:33 Dose: 4 mg Documented By: EMMANUEL Pharmacy Consult (Consult Rx Perform Med Rec) 1 each MISCELLANE ONCE PRN PRN Reason: Consult order Polyethylene Glycol (Polyethylene Glycol 3350 17 Gm Powd.Pack) 17 gm PO DAILY [facility] Last Admin: 12/19/22 08:43 Dose: 17 gm Documented By: LAMAR Sodium Chloride (0.9 % Sodium Chloride Flush 3 Ml Syringe) 3 ml IVFLUSH QSHIFT [facility] Last Admin: 12/19/22 08:43 Dose: 3 ml Documented By: LAMAR Labs 12/19/22 08:24 12/18/22 06:08 Labs: Laboratory Results - last 24 hr 12/18/22 12/18/22 12/19/22 15:56 20:18 07:43 POC Glucose 293 H 237 H 147 H 12/19/22 11:13 POC Glucose 258 H Microbiology Microbiology Results: Microbiology 12/18/22 Unknown Urine Culture - Preliminary Urine clean catch - Clean Catch Midstream Gram negative savi Assessment and Plan (1) Symptomatic anemia: Status: Acute Assessment and Plan: 52-year-old female with history of insulin-dependent type 2 diabetes, depression, hyperlipidemia, hypertension admitted for symptomatic anemia of unclear etiology. Acute on chronic symptomatic anemia-etiology unclear at this time. Iron studies, vitamin b12, folic acid ,ldh normal.fobt negative Stool occult blood negative H/H 6.8/20.9% (was 8.9/27.4% on 12/07) s/p 2 prbc -now? h/h 12.8/38.8(disproportionate increase-question if initial hemoglobin 6.8 ? error). her ldh normal ,lft;s normal, h/h stable ,only 1+ schistocytes, normal retic count,hepatoglobin levels pending- d/w dr cutler ( less likely hemolysis-no further workup needed ) Gi eval-added ppi , fuether Gi workup outpatient. spine htn/Orthostatic hypotension- patient probable has has supine htn/orthostasis continue lisinopril , will add amlodipine if needed, faheem stockings nephro eval. Acute diarrhea -GI panel, CDiff pcr ordered -GI consult as above. Chronic abd pain -CT abd/pelvis from 12/07 showed constipation with mildly dilated fluid and air-filled small bowel loops throughout the abdomen without clear transition zone suggesting ileus or partial small bowel obstruction -No change in abd pain, no n/v. Hold on repeat CT -GI consult as above ?insulin-dependent type 2 diabetes -dose adjust basal insulin -Humalog on sliding scale -diabetic diet -hold oral anti hypoglycemics ?hyperlipidemia -continue statin ?diabetic polyneuropathy -continue gabapentin asymptomatic pyuria/bacteruria-need to wait for cultures d/w id -will decide use of antibiotics depends on urine cultures. DVT prophylaxis- SCPs Full code ongoing? hopitalisation need:significant orthostatic hypotension/spine htn -need bp moniterin /blood pressure? med adjustment. Time Spent With Patient Time: Total time managing care of this patient today ____ minutes. Quality Stroke Does the patient have a stroke diagnosis?: No VTE Prior VTE?: No VTE Risk Level:: Medical - moderate - high VTE Device Contraindication: N/A - Device Ordered VTE Drug Contraindication: Treatment Not Indicated
[2022-12-19 15:30] VITALS: BP 184/92; PULSE 95; RESP 17; TEMP 36.2; O2SAT 97
--- NOTE | 2022-12-19 15:36 | PC.NURSE ---
BP elevated 184/92 pulse 95 ,patien has no complaints,Dr. Pringle notified
--- NOTE | 2022-12-19 15:57 | W.PM.IDCN ---
History of Present Illness Data of Consult Service Date: 12/18/22 Requesting physician: Tiffany Pringle Primary Care Provider: Neelima Gómez MD [facility] Reason for consult: abdominal pain,?urinary infection She presents with lower abdominal pain 3/10 as well as fatigue for last week worsening. Prior CT abdomen and pelvis shows possible right pyelonephritis. She has previous culture urine ESBL Klebsiella 11/25. She has no dysuria or other complaints. Review of Systems Review of Systems: Yes all other systems are reviewed and are negative [facility] Past Medical History Medical History Anemia Brain lesion Depression HLD (hyperlipidemia) Iron deficiency anemia Type 2 diabetes mellitus Family History Family History Other Hypertension Family history: reviewed and not pertinent Social History Social History Household Members: Children and None Household Members Other:: Daughter Housing: Apartment Do you presently have visiting nurse or other home services: Yes ([facility]) Unable to assess alcohol history related to: Unable to respond Alcohol intake: never Patient Tobacco Use Status: Never used Tobacco e-Cigarette/Vaping Use: Never Used Second Hand Smoke Exposure: No Advance Directives Date on File: 06/19/21 service: No Current occupational status: unemployed Meds Allergies Allergy/AdvReac Type Severity Reaction Status Date / Time shrimp Allergy Swelling Verified 12/07/22 11:37 Active Medications: Current Medications Acetaminophen (Acetaminophen 325 Mg Tablet) 650 mg PO Q6H PRN PRN Reason: Pain, Mild (Pain Scale 1-3) Amlodipine Besylate (Amlodipine Besylate 5 Mg Tablet) 5 mg PO DAILY [facility]; Protocol Last Admin: 12/19/22 08:38 Dose: Not Given Atorvastatin Calcium (Atorvastatin Calcium 80 Mg Tablet) 80 mg PO DAILY [facility] Last Admin: 12/19/22 08:42 Dose: 80 mg Gabapentin (Gabapentin 300 Mg Capsule) 300 mg PO TID [facility] Last Admin: 12/19/22 14:24 Dose: 300 mg Insulin Glargine (Insulin Glargine,Hum.Rec.Anlog 100 Unit/Ml 10 Ml Vial) 14 unit SUBCUT BEDTIME [facility] Last Admin: 12/18/22 20:56 Dose: 14 unit Insulin Human Lispro (Insulin Lispro 100 Unit/Ml 3 Ml Vial) 0 unit SUBCUT QIDACHS [facility]; Protocol Last Admin: 12/19/22 11:28 Dose: 6 unit Lisinopril (Lisinopril 10 Mg Tablet) 10 mg PO DAILY [facility]; Protocol Last Admin: 12/19/22 08:42 Dose: 10 mg Ondansetron HCl (Ondansetron Hcl 4 Mg/2 Ml Vial) 4 mg IVPUSH Q8H PRN PRN Reason: Nausea and Vomiting Last Admin: 12/18/22 07:33 Dose: 4 mg Pharmacy Consult (Consult Rx Perform Med Rec) 1 each MISCELLANE ONCE PRN PRN Reason: Consult order Polyethylene Glycol (Polyethylene Glycol 3350 17 Gm Powd.Pack) 17 gm PO DAILY [facility] Last Admin: 12/19/22 08:43 Dose: 17 gm Sodium Chloride (0.9 % Sodium Chloride Flush 3 Ml Syringe) 3 ml IVFLUSH QSHIFT [facility] Last Admin: 12/19/22 15:22 Dose: 3 ml Home Medications Medication Instructions Recorded Confirmed Last Taken Type aspirin 81 mg tablet,delayed 1 tab PO DAILY 07/21/22 12/17/22 10/17/22 History release insulin glargine 100 unit/mL (3 18 unit subcut BEDTIME 07/21/22 12/17/22 10/17/22 History mL) subcutaneous pen (Lantus Solostar U-100 Insulin) insulin lispro 100 unit/mL See Protocol subcut TIDAC 07/21/22 12/17/22 10/17/22 History subcutaneous pen pioglitazone 30 mg tablet 1 tab PO DAILY 07/21/22 12/17/22 10/17/22 History gabapentin 300 mg capsule 300 mg PO TID 12/17/22 12/17/22 Unknown History lisinopril 10 mg tablet 10 mg PO QAM 12/17/22 12/17/22 Unknown History polyethylene glycol 3350 17 17 g PO DAILY 12/17/22 12/17/22 Unknown History gram/dose oral powder (Gavilax) rosuvastatin 40 mg tablet 40 mg PO QAM 12/17/22 12/17/22 Unknown History sennosides 8.6 mg-docusate sodium 1 tab PO QAM 12/17/22 12/17/22 Unknown History 50 mg tablet (Stimulant Laxative Plus) Physical Exam Vital Signs: Vital Signs: Last Vital Signs Temp 97.2 F 12/19/22 15:30 Pulse 95 12/19/22 15:30 Resp 17 12/19/22 15:30 BP 184/92 H 12/19/22 15:30 Pulse Ox 97 12/19/22 15:30 O2 Del Method Room Air 12/19/22 15:30 BMI result Body Mass Index 21.8 Const: General: cooperative HEENT: Head: Yes normal to inspection Face and sinus: Yes normal facial exam Mouth: Normal oral and palatal mucosa present Teeth and gingiva: dentition normal Eyes: General: appearance normal, both eyes and all related structures Pupils: Equal, round and reactive pupils present Resp: Effort & Inspection: normal respiratory effort Cardio: Rate: regular rate Rhythm: regular rhythm GI: Palpation (GI): Soft to palpation and nontender : General: Yes no CVA tenderness Back/Spine/Pelvis: Back: no CVA tenderness Skin: General skin exam: no rashes or lesions noted Neuro: General: moves all extremities Cranial nerves: Yes Equal, round and reactive pupils present Extrem: General: Yes normal to inspection Psych: Appearance: grossly normal Results Labs 12/19/22 08:24 12/18/22 06:08 Labs: Short CBC 12/19/22 Range/Units 08:24 Hgb 12.8 (12.0-16.0) g/dl Hct 38.8 (37.0-47.0) % Microbiology Microbiology Results: Microbiology 12/18/22 Unknown Urine clean catch - Clean Catch Midstream Urine Culture - Preliminary Gram negative savi Assessment and Plan (1) Symptomatic anemia: Status: Acute There doesnt seem to be any urinary complaints at this time Await cultues. Consider check tick panel if anemia continues check babesia. (2) Type 2 diabetes mellitus: Status: Acute Time Spent With Patient Time: Total time managing care of this patient today ____ minutes.
[2022-12-19 16:35] LABS: Glucose, Whole Blood 236 mg/dL (60-115)
[2022-12-19 17:54] LABS: Homocysteine 10.6 umol/L (<10.4)
[2022-12-19 19:29] VITALS: BP 145/82; PULSE 91; RESP 16; TEMP 36.6; O2SAT 97
[2022-12-19 20:14] LABS: Glucose, Whole Blood 251 mg/dL (60-115)
[2022-12-19] MEDS: Insulin Glargine,Hum.rec.anlog 100 UNIT/ML 10 ML VIAL 14 UNIT SUBCUT (22:51)
[2022-12-19] MEDS: amLODIPine Besylate 2.5 MG TABLET PO (22:52)
[2022-12-20 02:53] VITALS: BP 110/58; PULSE 93; RESP 16; TEMP 36.4; O2SAT 95
[2022-12-20 06:47] LABS: Haptoglobin 153 mg/dL (43-212)
[2022-12-20 07:51] LABS: Glucose, Whole Blood 172 mg/dL (60-115)
[2022-12-20 08:00] VITALS: BP 126/59; PULSE 85; PULSE 88; RESP 18; TEMP 36; O2SAT 96
[2022-12-20] MEDS: Gabapentin 300 MG CAPSULE PO ×2 (08:29→16:20)
[2022-12-20] MEDS: polyethylene glycoL 3350 17 GM POWD.PACK PO (08:29)
[2022-12-20] MEDS: Insulin Lispro 100 UNIT/ML 3 ML VIAL SUBCUT ×3 (08:29→17:29)
[2022-12-20] MEDS: lisinopriL 10 MG TABLET PO (08:29)
[2022-12-20] MEDS: Atorvastatin Calcium 80 MG TABLET PO (08:29)
[2022-12-20] MEDS: 0.9 % Sodium Chloride Flush 3 ML SYRINGE IVFLUSH (08:29)
[2022-12-20] MEDS: amLODIPine Besylate 5 MG TABLET PO (08:29)
[2022-12-20 10:47] LABS: Hemoglobin 12.9 g/dl (12.0-16.0); Mean Corpuscular HGB Conc 33.1 g/dl (31.0-35.0); Mean Corpuscular Hemoglobin 29.6 pg (27.0-33.0); Mean Corpuscular Volume 89.4 fL (80.0-98.0); Mean Platelet Volume 8.5 fL (9.4-12.3); Platelet Count 160 X10*3/uL (160-400); Red Blood Count 4.36 X10*6/uL (4.20-5.50); Red Cell Distribution Width 12.7 % (11.0-16.0)
[2022-12-20 11:00] LABS: Anion Gap 12 (12-20); Blood Urea Nitrogen 30 mg/dL (9-16); Carbon Dioxide 30 mmol/L (22-29); Chloride 100 mmol/L (96-108); Estimated Glomerular Filt Rate > 60; Glucose Random 238 mg/dL (60-115); Potassium 4.7 mmol/L (3.3-5.1); Sodium 137 mmol/L (135-145)
[2022-12-20 11:11] LABS: Glucose, Whole Blood 241 mg/dL (60-115)
--- NOTE | 2022-12-20 13:40 | P.PNIM_ITS ---
Subjective Subjective Date of Service: 12/20/22 Interval History: minimally dizzy Physical Exam Vital Signs: Vital Signs: Last Vital Signs Temp 96.8 F 12/20/22 08:00 Pulse 88 12/20/22 08:00 Resp 18 12/20/22 08:00 BP 126/59 L 12/20/22 08:00 Pulse Ox 96 12/20/22 08:00 O2 Del Method Room Air 12/20/22 08:00 BMI result Body Mass Index 21.8 General: AO X 3, no acute distress Resp: CTA bilateral, no accessory muscles used CVS: S1,S2,RRR GI: soft, non tender, non distended Neuro: motor grossly intact, alert Psych: appropriate affect, appropriate insight Objective Data Active Medications Acetaminophen (Acetaminophen 325 Mg Tablet) 650 mg PO Q6H PRN PRN Reason: Pain, Mild (Pain Scale 1-3) Amlodipine Besylate (Amlodipine Besylate 5 Mg Tablet) 5 mg PO DAILY [facility]; Protocol Last Admin: 12/20/22 08:29 Dose: 5 mg Documented By: RYANN Atorvastatin Calcium (Atorvastatin Calcium 80 Mg Tablet) 80 mg PO DAILY [facility] Last Admin: 12/20/22 08:29 Dose: 80 mg Documented By: RYANN Gabapentin (Gabapentin 300 Mg Capsule) 300 mg PO TID [facility] Last Admin: 12/20/22 08:29 Dose: 300 mg Documented By: RYANN Insulin Glargine (Insulin Glargine,Hum.Rec.Anlog 100 Unit/Ml 10 Ml Vial) 14 unit SUBCUT BEDTIME [facility] Last Admin: 12/19/22 22:51 Dose: 14 unit Documented By: NATO Insulin Human Lispro (Insulin Lispro 100 Unit/Ml 3 Ml Vial) 0 unit SUBCUT QIDACHS [facility]; Protocol Last Admin: 12/20/22 12:54 Dose: 4 unit Documented By: RYANN Lisinopril (Lisinopril 10 Mg Tablet) 10 mg PO DAILY [facility]; Protocol Last Admin: 12/20/22 08:29 Dose: 10 mg Documented By: RYANN Ondansetron HCl (Ondansetron Hcl 4 Mg/2 Ml Vial) 4 mg IVPUSH Q8H PRN PRN Reason: Nausea and Vomiting Last Admin: 12/18/22 07:33 Dose: 4 mg Documented By: EMMANUEL Pharmacy Consult (Consult Rx Perform Med Rec) 1 each MISCELLANE ONCE PRN PRN Reason: Consult order Polyethylene Glycol (Polyethylene Glycol 3350 17 Gm Powd.Pack) 17 gm PO DAILY [facility] Last Admin: 12/20/22 08:29 Dose: 17 gm Documented By: RYANN Sodium Chloride (0.9 % Sodium Chloride Flush 3 Ml Syringe) 3 ml IVFLUSH QSHIFT [facility] Last Admin: 12/20/22 08:29 Dose: 3 ml Documented By: RYANN Labs 12/20/22 10:04 12/20/22 10:04 Labs: Laboratory Results - last 24 hr 12/17/22 12/17/22 12/19/22 17:11 17:11 16:31 MCV MCH MCHC RDW Plt Count MPV Absolute Nucleated RBC Nucleated RBC % (auto) Haptoglobin 153 Anion Gap Estim Creat Clear Calc Estimated GFR POC Glucose 236 H Random Glucose Calcium Homocysteine 10.6 H 12/19/22 12/20/22 12/20/22 20:09 07:20 10:04 MCV 89.4 MCH 29.6 MCHC 33.1 RDW 12.7 Plt Count 160 MPV 8.5 L Absolute Nucleated RBC 0.000 Nucleated RBC % (auto) 0.0 Haptoglobin Anion Gap Estim Creat Clear Calc Estimated GFR POC Glucose 251 H 172 H Random Glucose Calcium Homocysteine 12/20/22 12/20/22 10:04 11:04 MCV MCH MCHC RDW Plt Count MPV Absolute Nucleated RBC Nucleated RBC % (auto) Haptoglobin Anion Gap 12 Estim Creat Clear Calc 70.0 Estimated GFR > 60 POC Glucose 241 H Random Glucose 238 H Calcium 10.0 D Homocysteine Microbiology Microbiology Results: Microbiology 12/18/22 Unknown Urine Culture - Final Urine clean catch - Clean Catch Midstream Klebsiella pneumoniae Assessment and Plan (1) Symptomatic anemia: Status: Acute Assessment and Plan: 52-year-old female with history of insulin-dependent type 2 diabetes, depression, hyperlipidemia, hypertension presented with dizzyness, found to have anemia and schistocytes, orthostatic Acute on chronic symptomatic anemia with schistocytes on smear Iron studies, vitamin b12, folic acid ,ldh normal.fobt negative Stool occult blood negative H/H 6.8/20.9% (was 8.9/27.4% on 08/04) s/p 2 prbc -now? h/h 12.8/38.8(disproportionate increase-question if initial hemoglobin 6.8 ? error). her ldh normal ,lft;s normal, h/h stable ,only 1+ schistocytes, normal retic count,hepatoglobin levels pending- case had been discussed with dr cutler ( less likely hemolysis-no further workup needed ) asymptomatic pyuria/bacteruria-with esbl klebsiella follow up with ID supine htn/Orthostatic hypotension- patient probable has has supine htn/orthostasis continue lisinopril ,amlodipine added, faheem stockings resolved deconditioning pateint requesting pt eval Acute diarrhea resolved Chronic abd pain CT abd/pelvis from 12/07 showed constipation with mildly dilated fluid and air- filled small bowel loops throughout the abdomen without clear transition zone suggesting ileus or partial small bowel obstruction No change in abd pain, no n/v. Hold on repeat CT ?insulin-dependent type 2 diabetes dose adjust basal insulin Humalog on sliding scale diabetic diet hold oral anti hypoglycemics hyperlipidemia continue statin ?diabetic polyneuropathy continue gabapentin DVT prophylaxis- lovenox Full code reason for continued hospitalization:pt eval, ? snf Time Spent With Patient Time: Total time managing care of this patient today ____ minutes. Quality Stroke Does the patient have a stroke diagnosis?: No VTE Prior VTE?: No VTE Risk Level:: Medical - moderate - high VTE Device Contraindication: N/A - Device Ordered VTE Drug Contraindication: Treatment Not Indicated
[2022-12-20 13:55] VITALS: BP 145/69; PULSE 91
[2022-12-20] MEDS: Enoxaparin Sodium 40 MG/0.4 ML SYRINGE SUBCUT (14:30)
[2022-12-20 14:38] VITALS: BP 145/69; PULSE 91
--- NOTE | 2022-12-20 14:48 | PM.DS ---
DS: Providers Provider Date of Service: 12/20/22 Date of admission: 12/17/22 19:39 Primary care physician: Neelima Gómez MD Consults: 12/17/22 19:44 Consult to Gastroenterology Routine Consulting Provider: Sherry Douglass Reason for consultation: symptomatic anemia, abd pain 12/18/22 14:18 Consult to Infectious Diseases Routine Consulting Provider: [facility] Infectious Disease Reason for consultation: ? uti/pyelo on ct, previous cultures esbl Has provider been notified: No 12/19/22 08:36 Consult to Nephrology Routine Consulting Provider: Berlin Whittington Reason for consultation: supine htn/orthostasis Has provider been notified: No DS: Diagnosis Discharge Diagnosis (1) Symptomatic anemia: Status: Acute DS: Summary Hospital Course Hospital Course: from initial hpi: 52-year-old female with history of insulin-dependent type 2 diabetes, chronic normocytic anemia, depression, hyperlipidemia, hypertension presented to the ED earlier today for evaluation of low blood pressure.? States she took her blood pressure at home and systolic was in the low 90s.? She has also been experiencing bilateral leg pain.? She has had longstanding abdominal pain for the last 3 days has had watery diarrhea with 3 episodes today alone.? Denies any melena or hematochezia.? Has felt fatigued, lightheaded, and generally weak.? No fevers, chills, nausea, vomiting, cough, shortness of breath, chest pain.? On arrival, patient noted to have orthostatic hypotension with blood pressure down to 77/40 on standing.? Has otherwise been hypertensive to 214/98 with intermittent tachycardia to 101.? She is afebrile.? There is new leukocytosis.? H/H 6.8/20.9%, MCV 93.7, platelets 122.? Renal function normal, electrolytes largely unremarkable.? Haptoglobin pending, LDH pending.? Vitamin B12 and folic acid levels normal. iron studies normal. Stool occult blood negative.? She did have CT of the abdomen/pelvis on ED visit from 12/07 showing excessive stool burden with mildly dilated fluid and air-filled small bowel loops throughout the abdomen without clear transition zone suggestive of ileus versus partial small-bowel obstruction.? There is previously noted diminished cortical medullary differentiation and low-attenuation is specially in the lower pole of the right kidney cannot rule out underlying pyelonephritis but no perinephric fat stranding.?She denies any urinary symptoms.? She also has stable bilateral mildly dilated proximal ureters but no evidence of stones.? In the ED, received 2 L IVF, ondansetron, and 1 unit packed red blood cells. hospital course: Patient was admitted for acute on chronic symptomatic anemia with schistocytes seen on smear. Iron studies, vitamin B12, folic acid, LDH, FOBT, LFTs, reticulocyte count, haptoglobin were all unremarkable. Hemoglobin responded to 1 unit of PRBC and increased higher than expected. Raising possibility that initial value was possible error. Hemoglobin remained stable. Case was discussed with Hematology who felt hemolysis unlikely and no further workup needed. Also noted to have asymptomatic bacteriuria with ESBL Klebsiella. Discussed with infectious disease who recommended no treatment at this time as patient asymptomatic. For orthostatic hypotension with supine hypertension. This was due to dehydration, patient responded to hydration and no longer orthostatic. Was continued on lisinopril and amlodipine added. For deconditioning was seen by Physical therapy felt patient was at her baseline and recommended services at home. Patient had no further diarrhea while in hospital. For diabetes was continue insulin. For hyperlipidemia continue on statin. For diabetic polyneuropathy continue on gabapentin. Patient is feeling better will be discharged home. Time Spent with Patient Time attestation: Total time managing care of this patient today ____ minutes. Discharge coordination time: Greater than 30 minutes Quality: Safe Use of Opioids Does Pt have an Active Cancer Diagnosis on the Problem List?: No Quality: Stroke Does the patient have a stroke diagnosis?: No Physical Exam Vital Signs: Vital Signs: Last Vital Signs Temp 96.8 F 12/20/22 08:00 Pulse 91 12/20/22 14:38 Resp 18 12/20/22 08:00 BP 145/69 H 12/20/22 14:38 Pulse Ox 96 12/20/22 08:00 O2 Del Method Room Air 12/20/22 08:00 BMI result Body Mass Index 21.8 General: AO X 3, no acute distress Resp: CTA bilateral, no accessory muscles used CVS: S1,S2,RRR GI: soft, non tender, non distended Neuro: motor grossly intact, alert Psych: appropriate affect, appropriate insight DS: Data Data Completed and Pending Labs on day of discharge: Laboratory Results - last 24 hr 12/17/22 12/17/22 12/19/22 17:11 17:11 16:31 WBC RBC Hgb Hct MCV MCH MCHC RDW Plt Count MPV Absolute Nucleated RBC Nucleated RBC % (auto) Haptoglobin 153 Sodium Potassium Chloride Carbon Dioxide Anion Gap BUN Creatinine Estim Creat Clear Calc Estimated GFR POC Glucose 236 H Random Glucose Calcium Homocysteine 10.6 H 12/19/22 12/20/22 12/20/22 20:09 07:20 10:04 WBC 8.0 RBC 4.36 Hgb 12.9 Hct 39.0 MCV 89.4 MCH 29.6 MCHC 33.1 RDW 12.7 Plt Count 160 MPV 8.5 L Absolute Nucleated RBC 0.000 Nucleated RBC % (auto) 0.0 Haptoglobin Sodium Potassium Chloride Carbon Dioxide Anion Gap BUN Creatinine Estim Creat Clear Calc Estimated GFR POC Glucose 251 H 172 H Random Glucose Calcium Homocysteine 12/20/22 12/20/22 10:04 11:04 WBC RBC Hgb Hct MCV MCH MCHC RDW Plt Count MPV Absolute Nucleated RBC Nucleated RBC % (auto) Haptoglobin Sodium 137 Potassium 4.7 Chloride 100 Carbon Dioxide 30 H Anion Gap 12 BUN 30 H Creatinine 0.87 Estim Creat Clear Calc 70.0 Estimated GFR > 60 POC Glucose 241 H Random Glucose 238 H Calcium 10.0 D Homocysteine Discharge Plan Discharge Anticipated Discharge Date/Time: 12/19/22 08:11 Patient Disposition: Home Health Service Discharge Diagnosis: anemia normocytic ,asymptomatic pyuria/bacteruria Referrals: [facility] [Physician] - 1 Week Discharge Medications: New amlodipine 5 mg Tablet 5 mg PO DAILY Qty: 30 0RF Protocol: Hold for SBP< HOLD for SBP < : 90 Continued aspirin 81 mg tablet,delayed release (DR/EC) 1 tab PO DAILY pioglitazone 30 mg tablet 1 tab PO DAILY insulin lispro 100 unit/mL insulin pen See Protocol subcut TIDA Protocol: Insulin Correction Scale Less than or equal to 110 ---- Give (units): 0 111 to 150 Give (units): 0 151 to 200 Give (units): 10 201 to 250 Give (units): 12 251 to 300 Give (units): 14 301 to 350 Give (units): 16 Greater than 350 Give (units): 18 Call MD if Blood Glucose > : 350 Rx Instructions: increase by 2 units per 50mg/dL insulin glargine [Lantus Solostar U-100 Insulin] 100 unit/mL (3 mL) insulin pen 18 unit subcut BEDTIME (DME) FreeStyle Test Strip See Rx Instructions .Route Qty: 100 0RF Rx Instructions: As directed sennosides-docusate sodium [Stimulant Laxative Plus] 8.6-50 mg tablet 1 tab PO QAM lisinopril 10 mg tablet 10 mg PO QAM gabapentin 300 mg capsule 300 mg PO TID polyethylene glycol 3350 [Gavilax] 17 gram/dose powder 17 g PO DAILY rosuvastatin 40 mg tablet 40 mg PO QAM Discharge Orders: Discharge Order (Routine); Ordered 12/20/22 Ordered By: Azeem Kate Diet: Advance to usual diet Activity on Discharge: As tolerated Stand Alone Forms: Patient Portal Discharge page Care Plan Goals: Acute on chronic symptomatic anemia-etiology unclear at this time. Health Concerns: anemia, dizzy Plan of Treatment: herbielodipnvalente, outpatient follow up Assessment: see above
--- NOTE | 2022-12-20 15:00 | MHC.CM.PN ---
DC to home today. Resume [facility]. DC info sent. Patient will transport via BLS.
[2022-12-20 15:29] VITALS: BP 134/64; PULSE 90; RESP 18; TEMP 36.2; O2SAT 97
[2022-12-20 16:34] LABS: Glucose, Whole Blood 211 mg/dL (60-115)
[2022-12-22 06:33] LABS: Methylmalonic Acid 536 nmol/L (87-318)
== END 2022-12-20 17:53 | disposition home health service (06) | DRG 204 ==
LOC: HO.ED 18:11 → HO.EDOVER 19:49 → HO.S3 12-18 07:43
PROVIDERS: Internal Medicine; Student in an Organized Health Care Education/Training Program; Admitting Provider Physician Assistant; Emergency Provider Emergency Medicine; PCP Internal Medicine; Visit Provider Internal Medicine
DX: I95.1 Orthostatic hypotension (principal); E11.42 Type 2 diabetes mellitus with diabetic polyneuropathy; N12 Tubulo-interstitial nephritis, not specified as acute or chronic; D64.9 Anemia, unspecified; E78.5 Hyperlipidemia, unspecified; E86.1 Hypovolemia; I10 Essential (primary) hypertension; Z79.4 Long term (current) use of insulin; Z79.82 Long term (current) use of aspirin; Z79.899 Other long term (current) drug therapy
CPT/HCPCS: 36415; 80048; 80053; 81001; 82272; 82607; 82746; 82947; 83010; 83090; 83540; 83615; 83921; 84484; 85007; 85014; 85018; 85025; 85027; 85045; 86850; 86900; 86901; 86923; 87086; 87088; 87186; 93005; 97162; 99285; J1650; J2405; P9016

== ENCOUNTER → 2022-12-17 19:39 | Outpatient (BNV) | payer MEDICAID, SELFPAY | PROVIDERS: Admitting Provider Physician Assistant; Emergency Provider Emergency Medicine; Visit Provider Physician Assistant | DX: D64.9 Anemia, unspecified (principal) | CPT/HCPCS: 99223; 99232; 99239 ==

== ENCOUNTER → 2022-12-17 19:39 | Outpatient (BNV) | payer MEDICAID, SELFPAY | PROVIDERS: Admitting Provider Physician Assistant; Emergency Provider Emergency Medicine; Visit Provider Internal Medicine Gastroenterology | DX: D64.9 Anemia, unspecified (principal); N12 Tubulo-interstitial nephritis, not specified as acute or chronic | CPT/HCPCS: 99232 ==

== ENCOUNTER → 2022-12-17 19:39 | Outpatient (BNV) | payer MEDICAID, SELFPAY | PROVIDERS: Admitting Provider Physician Assistant; Emergency Provider Emergency Medicine; PCP Internal Medicine; Visit Provider Internal Medicine | DX: D64.9 Anemia, unspecified (principal); E11.9 Type 2 diabetes mellitus without complications | CPT/HCPCS: 99221 ==

== ENCOUNTER 2022-12-22 11:13 | Emergency (ER) | payer MEDICAID, SELFPAY ==
--- NOTE | ~2022-12-22 | XR_ITS ---
EXAMINATION: XR CHEST CLINICAL INFORMATION: Chest pain. COMPARISON: Chest radiograph done on 10/17/2022. TECHNIQUE: 2 views of the chest were obtained. FINDINGS: No significant abnormality is noted involving the heart, lungs, mediastinum, bony thorax or soft tissues. Postsurgical changes of cholecystectomy. XR/XR chest 2V IMPRESSION: Unremarkable examination. No significant change since 10/17/2022.
--- NOTE | 2022-12-22 11:18 | ECG_ITS ---
Test Reason : CHEST PAIN Blood Pressure : / mmHG Vent. Rate : 085 BPM Atrial Rate : 085 BPM P-R Int : 140 ms QRS Dur : 070 ms QT Int : 398 ms P-R-T Axes : 052 004 030 degrees QTc Int : 473 ms Normal sinus rhythm Normal ECG When compared with ECG of 17-DEC-2022 15:40, No significant change was found Referred By: Melisa Ward Electronically Signed By:CRISTA OWEN
[2022-12-22 11:23] VITALS: BP 118/74; BP 143/65; PULSE 85; RESP 12; TEMP 36.7; O2SAT 97; O2SAT 98; BMI 22.1
--- NOTE | 2022-12-22 11:56 | ED_ITS ---
HPI - Chest Pain General Chief Complaint: Chest Pain Stated Complaint: Chest pain per EMS Time Seen by Provider: 12/22/22 11:18 Source: patient, EMS and RN notes reviewed Mode of arrival: ambulatory Limitations: no limitations History of Present Illness HPI narrative: This is a 52-year-old female, the past medical history of diabetes, presenting to the emergency department via EMS from home, with complaints of midsternal chest pain starting 30 minutes ago. Patient took 4 aspirin at home prior to EMS. Pain improved after taking aspirin. Patient admits that yesterday she was having a lot of vomiting with chills. Denies any bloody or black vomit. She denies any vomiting today. Denies fevers, chills, shortness of breath, abdominal pain, diarrhea or constipation. Denies history of cardiac problems in the past. She was recently admitted to the hospital for anemia where she received a transfusion. MD complaint: chest pain Onset (ago): minute(s) Timing of current episode: episodic Prior episodes: No Onset: during rest Pain location: substernal Pain radiation: none Severity: moderate Quality: tightness and aching Relieving factors: other (ASA) Exacerbating factors: palpation Risk Factors Coronary artery disease risk factors: diabetes Related Data On Oral Contraceptives: No Home Medications Medication Instructions Recorded Confirmed aspirin 81 mg tablet,delayed 1 tab PO DAILY 07/21/22 12/17/22 release insulin glargine 100 unit/mL (3 18 unit subcut BEDTIME 07/21/22 12/17/22 mL) subcutaneous pen (Lantus Solostar U-100 Insulin) insulin lispro 100 unit/mL See Protocol subcut TIDAC 07/21/22 12/17/22 subcutaneous pen pioglitazone 30 mg tablet 1 tab PO DAILY 07/21/22 12/17/22 gabapentin 300 mg capsule 300 mg PO TID 12/17/22 12/17/22 lisinopril 10 mg tablet 10 mg PO QAM 12/17/22 12/17/22 polyethylene glycol 3350 17 17 g PO DAILY 12/17/22 12/17/22 gram/dose oral powder (Gavilax) rosuvastatin 40 mg tablet 40 mg PO QAM 12/17/22 12/17/22 sennosides 8.6 mg-docusate sodium 1 tab PO QAM 12/17/22 12/17/22 50 mg tablet (Stimulant Laxative Plus) Previous Rx's Medication Instructions Recorded blood sugar diagnostic (FreeStyle #100 ea 10/02/22 Test strips) amlodipine 5 mg tablet 5 mg PO DAILY #30 tabs 12/20/22 Allergies Allergy/AdvReac Type Severity Reaction Status Date / Time shrimp Allergy Swelling Verified 12/07/22 11:37 Review of Systems Review of Systems: Yes all other systems are reviewed and are negative Constitutional: Constitutional: Reports as per [facility] Past Medical History Attestation statement: The following information was validated with the patient. Medical History Anemia Brain lesion Depression HLD (hyperlipidemia) Iron deficiency anemia Type 2 diabetes mellitus Family History Family History Other Hypertension Social History Social History Household Members: Children and None Household Members Other:: Daughter Housing: Apartment Do you presently have visiting nurse or other home services: Yes ([facility]) Unable to assess alcohol history related to: Unable to respond Alcohol intake: never Patient Tobacco Use Status: Never used Tobacco Smoked in Last 30 Days: No e-Cigarette/Vaping Use: Never Used Second Hand Smoke Exposure: No Use of substances other than those prescribed or required for medical reasons: No Advance Directives: Yes Advance Directives on File: Yes Advance Directives Date on File: 06/19/21 Patient : No service: No Current occupational status: unemployed Physical Exam Vital Signs: Vital Signs: Last Vital Signs Temp 98.2 F 12/22/22 12:04 Pulse 86 12/22/22 15:19 Resp 16 12/22/22 15:19 BP 149/70 H 12/22/22 15:19 Pulse Ox 99 12/22/22 15:19 O2 Del Method Room Air 12/22/22 15:19 BMI result Body Mass Index 22.1 Const: General: cooperative, comfortable and no acute distress Orientation/consciousness: patient oriented x3 Limitations: no limitations HEENT: Head: Yes normal to inspection, Yes normocephalic and Yes atraumatic Ears: hearing grossly normal bilaterally General nose exam: Normal external nose present Face and sinus: Yes normal facial exam Mouth: Normal oral and palatal mucosa present, oropharynx normal and moist mucous membranes Throat: Yes posterior oropharynx normal Eyes: General: appearance normal, both eyes and all related structures Eyelids: Yes eyelids normal Conjunctivae: conjunctivae normal Sclerae: sc lerae normal Pupils: Equal, round and reactive pupils present EOM: EOMs intact bilaterally Neck: Neck: Yes normal visual inspection, Yes full ROM and Yes no lymphadenopathy Lymphatic: no lymphadenopathy noted Chest: Other: Tenderness to palpation along the anterior chest wall Chest palpation & inspection: normal inspection of the chest Resp: Effort & Inspection: normal respiratory effort and able to speak in complete sentences Auscultation: clear to auscultation bilaterally, no crackles, no rales, no rhonchi and no wheezes Cardio: Rate: regular rate Rhythm: regular rhythm Heart sounds: S1 normal heart sound present and S2 normal heart sound present GI: Inspection: Yes normal to inspection Skin: General skin exam: no rashes or lesions noted Trauma: no lacerations or abrasions Wounds: no wounds Neuro: General: patient oriented x3 and moves all extremities Cranial nerves: Yes Equal, round and reactive pupils present Extrem: General: Yes normal to inspection Right upper extremity: normal to inspection Left upper extremity: normal to inspection Right lower extremity: normal to inspection Left lower extremity: normal to inspection Course Reevaluation(s) Reevaluation #1: Workup today unremarkable, patient has a heart score of 3. Negative troponin, EKG normal sinus rhythm with no ST elevation or depression. Negative BNP, chest x-ray unremarkable. Patient has reproducible chest pain on examination, likely muscle wall strain. Will treat symptomatically. Patient educated on return precautions. Patient stable for discharge. Time: 17:07 Medical Decision Making Medical Decision Making MDM Narrative: 52-year-old female, with a past medical history of diabetes, presenting to the emergency department for evaluation of chest pain starting 30 minutes ago. Patient took 4 tablets of aspirin which provided her with some relief. Patient reports that she does not have any pain at this moment. She reports that yesterday she was vomiting and also endorses some chills. Differential Diagnosis Differential Diagnoses: The differential diagnosis associated with the presentat ion includes ACS, costochondritis, pneumothorax, pneumonia Admission/Observation Consideration of admission/observation: Escalation of care including admission/observation considered Patient would have been admitted to the hospital had her work up had any findings where hospital admission was appropriate and her clinical presentation warranted hospital admission. Lab Data MDM Lab Attestation statement: I reviewed the patient's lab results. 12/22/22 12:12 12/22/22 12:12 Labs: Lab Results 12/22/22 12/22/22 12/22/22 Range/Units 12:12 12:12 12:12 WBC 9.0 (4.8-10.8) X10*3/uL RBC 4.46 (4.20-5.50) X10*6/uL Hgb 13.2 (12.0-16.0) g/dl Hct 39.9 (37.0-47.0) % MCV 89.5 (80.0-98.0) fL MCH 29.6 (27.0-33.0) pg MCHC 33.1 (31.0-35.0) g/dl RDW 12.7 (11.0-16.0) % Plt Count 201 D (160-400) X10*3/uL MPV 9.2 L (9.4-12.3) fL Immature Gran % (Auto) 0.3 (0.0-0.4) % Neut % (Auto) 60.9 (45-73) % Lymph % (Auto) 28.5 (20-40) % Alexander % (Auto) 7.6 (2-11) % Eos % (Auto) 2.4 (0-4) % Baso % (Auto) 0.3 (0-2) % Lymph # (Auto) 2.6 (1.2-4.9) X10*3/uL Alexander # (Auto) 0.7 (0.1-1.2) X10*3/uL Eos # (Auto) 0.2 (0.0-0.4) X10*3/uL Baso # (Auto) 0.0 (0.0-0.2) X10*3/uL Abs Immat Gran (auto) 0.03 (0.00-0.03) X10*3/uL Absolute Neuts (auto) 5.5 (2.0-8.3) x10*3/uL Absolute Nucleated RBC 0.000 (0.0-0.012) X10*3/uL Nucleated RBC % (auto) 0.0 (0.0-0.2) /100WBC Sodium 143 (135-145) mmol/L Potassium 4.7 (3.3-5.1) mmol/L Chloride 104 (96-108) mmol/L Carbon Dioxide 31 H (22-29) mmol/L Anion Gap 13 (12-20) BUN 42 H (9-16) mg/dL Creatinine 0.86 (0.5-1.4) mg/dL Estim Creat Clear Calc 70.8 Estimated GFR > 60 Random Glucose 99 (60-115) mg/dL Calcium 10.6 H (8.4-10.2) mg/dL Magnesium 2.3 (1.6-2.6) mg/dL Total Bilirubin 0.3 (0.0-1.0) mg/dL Direct Bilirubin 0.1 (0.0-0.5) mg/dL AST 16 (5-31) U/L ALT 14 (0-31) U/L Alkaline Phosphatase 82 (39-117) U/L Troponin I High Sens 3.7 (<3.5-17.0) ng/L B-Natriuretic Peptide (<100) pg/mL Total Protein 7.8 (6.5-8.0) g/dL Albumin 3.7 (3.5-5.0) g/dL Lipase 35 (8-78) U/L 12/22/22 12/22/22 Range/Units 12:12 15:24 WBC (4.8-10.8) X10*3/uL RBC (4.20-5.50) X10*6/uL Hgb (12.0-16.0) g/dl Hct (37.0-47.0) % MCV (80.0-98.0) fL MCH (27.0-33.0) pg MCHC (31.0-35.0) g/dl RDW (11.0-16.0) % Plt Count (160-400) X10*3/uL MPV (9.4-12.3) fL Immature Gran % (Auto) (0.0-0.4) % Neut % (Auto) (45-73) % Lymph % (Auto) (20-40) % Alexander % (Auto) (2-11) % Eos % (Auto) (0-4) % Baso % (Auto) (0-2) % Lymph # (Auto) (1.2-4.9) X10*3/uL Alexander # (Auto) (0.1-1.2) X10*3/uL Eos # (Auto) (0.0-0.4) X10*3/uL Baso # (Auto) (0.0-0.2) X10*3/uL Abs Immat Gran (auto) (0.00-0.03) X10*3/uL Absolute Neuts (auto) (2.0-8.3) x10*3/uL Absolute Nucleated RBC (0.0-0.012) X10*3/uL Nucleated RBC % (auto) (0.0-0.2) /100WBC Sodium (135-145) mmol/L Potassium (3.3-5.1) mmol/L Chloride (96-108) mmol/L Carbon Dioxide (22-29) mmol/L Anion Gap (12-20) BUN (9-16) mg/dL Creatinine (0.5-1.4) mg/dL Estim Creat Clear Calc Estimated GFR Random Glucose (60-115) mg/dL Calcium (8.4-10.2) mg/dL Magnesium (1.6-2.6) mg/dL Total Bilirubin (0.0-1.0) mg/dL Direct Bilirubin (0.0-0.5) mg/dL AST (5-31) U/L ALT (0-31) U/L Alkaline Phosphatase (39-117) U/L Troponin I High Sens 3.9 (<3.5-17.0) ng/L B-Natriuretic Peptide 11 (<100) pg/mL Total Protein (6.5-8.0) g/dL Albumin (3.5-5.0) g/dL Lipase (8-78) U/L Radiology Impression Discussion of test interpretation with radiology: I have reviewed the radiologist's reading. External Record Review External record reviewed: Inpatient record Patient was admitted from December 17 through December 20 for acute on chronic sy mptomatic anemia with schistocytes seen on smear. She was given 1 unit of PRBC, with increased higher than expected. Scores Heart Score History: -1- moderately suspicious ECG: -0- normal Age: -1- >45 - <65 Risk factory: -1- 1 or 2 risk factors Troponin: -0- < or = normal limit Score: 3 Risk: 1.7% Discharge Plan Discharge Clinical Impression: Chest pain Patient Disposition: Home, Self-Care Instructions: Chest Pain (ED) Additional Instructions: Your workup today was reassuring. Please drink plenty of fluids get plenty of rest. If any new or worsening symptoms occur, including but not limited to chest pain, shortness for breath, please return for re-evaluation. Tu evaluaci?n de hoy fue tranquilizadora. Sushila muchos l?quidos y descanse lo suficiente. Si se presentan s?ntomas nuevos o que empeoran, incluidos, entre otros, dolor en el pecho, dificultad para respirar, regrese para amada nueva evaluaci?n. Prescriptions: No Action aspirin 81 mg tablet,delayed release (DR/EC) 1 tab PO DAILY pioglitazone 30 mg tablet 1 tab PO DAILY insulin lispro 100 unit/mL insulin pen See Protocol subcut TIDAC Protocol: Insulin Correction Scale Less than or equal to 110 ---- Give (units): 0 111 to 150 Give (units): 0 151 to 200 Give (units): 10 201 to 250 Give (units): 12 251 to 300 Give (units): 14 301 to 350 Give (units): 16 Greater than 350 Give (units): 18 Call MD if Blood Glucose > : 350 Rx Instructions: increase by 2 units per 50mg/dL insulin glargine [Lantus Solostar U-100 Insulin] 100 unit/mL (3 mL) insulin pen 18 unit subcut BEDTIME (DME) FreeStyle Test Strip See Rx Instructions .Route Qty: 100 0RF Rx Instructions: As directed sennosides-docusate sodium [Stimulant Laxative Plus] 8.6-50 mg tablet 1 tab PO QAM lisinopril 10 mg tablet 10 mg PO QAM gabapentin 300 mg capsule 300 mg PO TID polyethylene glycol 3350 [Gavilax] 17 gram/dose powder 17 g PO DAILY rosuvastatin 40 mg tablet 40 mg PO QAM amlodipine 5 mg Tablet 5 mg PO DAILY Qty: 30 0RF Protocol: Hold for SBP< HOLD for SBP < : 90
[2022-12-22 12:04] VITALS: BP 144/69; PULSE 83; RESP 10; TEMP 36.8; O2SAT 99
[2022-12-22 12:16] LABS: MANUAL DIFF FLAG NO
[2022-12-22 12:18] LABS: Basophils Percent Auto 0.3 % (0-2); Eosinophils Absolute Auto 0.2 X10*3/uL (0.0-0.4); Eosinophils Percent Auto 2.4 % (0-4); Hematocrit 39.9 % (37.0-47.0); Hemoglobin 13.2 g/dl (12.0-16.0); Imm Gran Abs Auto 0.03 X10*3/uL (0.00-0.03); Imm Gran Pct Auto 0.3 % (0.0-0.4); Lymphocytes Absolute Auto 2.6 X10*3/uL (1.2-4.9); Lymphocytes Percent Auto 28.5 % (20-40); Mean Corpuscular HGB Conc 33.1 g/dl (31.0-35.0); Mean Corpuscular Hemoglobin 29.6 pg (27.0-33.0); Mean Corpuscular Volume 89.5 fL (80.0-98.0); Mean Platelet Volume 9.2 fL (9.4-12.3); Monocytes Absolute Auto 0.7 X10*3/uL (0.1-1.2); Monocytes Percent Auto 7.6 % (2-11); Neutrophils Absolute Auto 5.5 x10*3/uL (2.0-8.3); Neutrophils Percent Auto 60.9 % (45-73); Platelet Count 201 X10*3/uL (160-400); Red Blood Count 4.46 X10*6/uL (4.20-5.50); Red Cell Distribution Width 12.7 % (11.0-16.0)
[2022-12-22 12:34] LABS: Alanine Aminotransferase 14 U/L (0-31); Albumin Level 3.7 g/dL (3.5-5.0); Alkaline Phosphatase 82 U/L (39-117); Anion Gap 13 (12-20); Aspartate Amino Transferase 16 U/L (5-31); Bilirubin Direct 0.1 mg/dL (0.0-0.5); Bilirubin Total 0.3 mg/dL (0.0-1.0); Blood Urea Nitrogen 42 mg/dL (9-16); Calcium 10.6 mg/dL (8.4-10.2); Carbon Dioxide 31 mmol/L (22-29); Chloride 104 mmol/L (96-108); Creatinine Clr Calc Pharmacy 70.8; Estimated Glomerular Filt Rate > 60; Glucose Random 99 mg/dL (60-115); Lipase 35 U/L (8-78); Magnesium 2.3 mg/dL (1.6-2.6); Potassium 4.7 mmol/L (3.3-5.1); Sodium 143 mmol/L (135-145); Total Protein 7.8 g/dL (6.5-8.0)
[2022-12-22 12:37] LABS: B Type Natriuretic Peptide 11 pg/mL (<100)
[2022-12-22 12:41] LABS: Troponin-I High Sensitivity 3.7 ng/L (<3.5-17.0)
[2022-12-22 15:19] VITALS: BP 149/70; PULSE 86; RESP 16; O2SAT 99
[2022-12-22 15:52] LABS: Troponin-I High Sensitivity 3.9 ng/L (<3.5-17.0)
--- NOTE | 2022-12-22 15:54 | MHC.EDTECH ---
Pt requested food. Spoke with Cinthya Kay. she agreed pt can eat. Patient consumed 1 tuna fish sandwich, sugar free pudding and sugar free rashad jesus. SG
== END 2022-12-22 17:39 | disposition home or self-care (01) ==
PROVIDERS: Physician Assistant Medical; Emergency Provider Emergency Medicine
DX: R07.9 Chest pain, unspecified (principal); E11.9 Type 2 diabetes mellitus without complications; E78.5 Hyperlipidemia, unspecified; D64.9 Anemia, unspecified; Z79.4 Long term (current) use of insulin; Z79.899 Other long term (current) drug therapy; Z79.82 Long term (current) use of aspirin
CPT/HCPCS: 36415; 71046; 80048; 80076; 83690; 83735; 83880; 84484; 85025; 93005; 99283; 99285

== ENCOUNTER 2022-12-24 19:08 | Emergency (ER) | payer MEDICAID, OTHER, SELFPAY ==
--- NOTE | 2022-12-24 19:54 | PHA.MEDREC ---
Pharmacy Consult ? Medication Reconciliation Pharmacy has completed the medication reconciliation. Patient just discharge 12/20/22, utilized discharge summary for med rec. Demetrio ColeD
--- NOTE | 2022-12-24 20:24 | ED_ITS ---
HPI - Anxiety General Chief Complaint: Anxiety Stated Complaint: ANXIETY DEPRESSION -SI/HI Time Seen by Provider: 12/24/22 19:12 Source: patient and EMS Mode of arrival: EMS Limitations: no limitations History of Present Illness HPI narrative: 52-year-old female with type 2 diabetes, anxiety, depression presents with acute anxiety /panic. Patient's son was murdered in October or November of this year. According to her other son, she has not been functioning well. Today, patient also lost power. She has not been paying her rent, utility bills. She is about to be evicted. This is a new finding since the of her son. Son is very concerned about her anxiety and depression and her grief. He is not sure how to help her. She is not taking her medications. He does administer her insulin. Patient denies any SI or HI. Patient does admit to anxiety. Her anxiety is moderate to severe. The symptoms are intermittent. They are worsened when she starts to think about her son who was murdered. Related Data Home Medications Medication Instructions Recorded Confirmed aspirin 81 mg tablet,delayed 1 tab PO DAILY 07/21/22 12/24/22 release insulin glargine 100 unit/mL (3 18 unit subcut BEDTIME 07/21/22 12/24/22 mL) subcutaneous pen (Lantus Solostar U-100 Insulin) insulin lispro 100 unit/mL See Protocol subcut TIDAC 07/21/22 12/24/22 subcutaneous pen pioglitazone 30 mg tablet 1 tab PO DAILY 07/21/22 12/24/22 gabapentin 300 mg capsule 300 mg PO TID 12/17/22 12/24/22 lisinopril 10 mg tablet 10 mg PO QAM 12/17/22 12/24/22 polyethylene glycol 3350 17 17 g PO DAILY 12/17/22 12/24/22 gram/dose oral powder (Gavilax) rosuvastatin 40 mg tablet 40 mg PO QAM 12/17/22 12/24/22 sennosides 8.6 mg-docusate sodium 1 tab PO QAM 12/17/22 12/24/22 50 mg tablet (Stimulant Laxative Plus) Previous Rx's Medication Instructions Recorded blood sugar diagnostic (FreeStyle #100 ea 10/02/22 Test strips) amlodipine 5 mg tablet 5 mg PO DAILY #30 tabs 12/20/22 Allergies Allergy/AdvReac Type Severity Reaction Status Date / Time shrimp Allergy Swelling Verified 12/07/22 11:37 Review of Systems Review of Systems: CONSTITUTIONAL: Denies weight loss, fever and chills. HEENT: Denies changes in vision and hearing. RESPIRATORY: Denies SOB and cough. CV: Denies palpitations no CP. GI: Denies abdominal pain, nausea, vomiting and diarrhea. : Denies dysuria and urinary frequency. MSK: Denies myalgia and joint pain. SKIN: Denies rash and pruritus. NEUROLOGICAL: Denies headache and syncope. PSYCHIATRIC: + recent changes in mood. + anxiety and depression. All other ROS are negative unless in HPI PMFSH Past Medical History Medical History Anemia Brain lesion Depression HLD (hyperlipidemia) Iron deficiency anemia Type 2 diabetes mellitus Family History Family History Other Hypertension Social History Social History Household Members: Children and None Household Members Other:: Daughter Housing: Apartment Do you presently have visiting nurse or other home services: Yes ([facility]) Unable to assess alcohol history related to: Unable to respond Alcohol intake: never Patient Tobacco Use Status: Never used Tobacco Smoked in Last 30 Days: No e-Cigarette/Vaping Use: Never Used Second Hand Smoke Exposure: No Use of substances other than those prescribed or required for medical reasons: No Advance Directives: Yes Advance Directives on File: Yes Advance Directives Date on File: 06/19/21 Patient : No service: No Current occupational status: unemployed Physical Exam Vital Signs: Vital Signs: Last Vital Signs Temp 98.8 F 12/24/22 23:47 Pulse 82 12/24/22 23:47 Resp 16 12/24/22 23:47 BP 151/65 H 12/24/22 23:47 Pulse Ox 97 12/24/22 23:47 O2 Del Method Room Air 12/24/22 23:47 BMI result Body Mass Index 22.2 GEN: Well developed, no acute distress, alert, oriented HEENT: Normocephalic, atraumatic, normal external ears, nose appears normal Eyes: Normal to appearance Neck: Supple, no lymphadenopathy Respiratory: Talks in complete sentences, no respiratory distress Extremities: No clubbing cyanosis or edema , wound right great toe no evidence of infection Neurologic: No focal neurologic deficits, cranial nerves 2-12 intact, gait normal Skin: No rash Course Course Course Narrative: 52-year-old female is medically cleared for Behavioral Health evaluation. At this time, I do believe it is appropriate for her to be evaluated by our care team. He appears to have quite a significant amount of dysfunction especially according to her son. Patient has urinary tract infection. I have placed her on antibiotics twice daily. She will be placed in observation at this time. It is 11:00 at night Reevaluation(s) Reevaluation #1: patient care to be transitioned to dr. Jimenez pending care team consultation Time: 02:00 Medications Administered Discontinued Medications Generic Name Dose Route Start Last Admin Trade Name Freq PRN Reason Stop Dose Admin Amlodipine Besylate 5 mg 12/24/22 21:37 12/24/22 21:43 Amlodipine Besylate 5 Mg Tablet PO 12/24/22 21:38 5 mg ONCE ONE Administration Protocol Cephalexin HCl 500 mg 12/24/22 23:02 12/25/22 00:59 Cephalexin 500 Mg Capsule PO 12/24/22 23:03 500 mg BID ONE Administration Hydroxyzine HCl 25 mg 12/24/22 19:59 12/24/22 21:43 Hydroxyzine Hcl 25 Mg Tablet PO 12/24/22 20:00 25 mg ONCE ONE Administration Medical Decision Making Medical Decision Making [facility] Narrative: 52-year-old female with history of anxiety, recent murder of her son with anxiety, depression failure function as an outpatient. Differential diagnosis i ncludes severe grief, depression, anxiety, PTSD, mood disorder, personality disorder. Plan will be to medically clear the patient. She will need anxiety medications as needed. Will refer her to the care team for consultation Differential Diagnosis Differential Diagnoses: The differential diagnosis associated with the presentation includes ( see above) Admission/Observation Consideration of admission/observation: Escalation of care including admission/observation considered Consult Healthcare Provider Management of the patient was discussed with: Behavioral Health Provider Lab Data [facility] Lab Attestation statement: I reviewed the patient's lab results. 12/24/22 21:28 12/24/22 21:28 Labs: Lab Results 12/24/22 12/24/22 12/24/22 Range/Units 21:28 21:28 21:32 WBC 7.9 (4.8-10.8) X10*3/uL RBC 4.33 (4.20-5.50) X10*6/uL Hgb 12.8 (12.0-16.0) g/dl Hct 38.2 (37.0-47.0) % MCV 88.2 (80.0-98.0) fL MCH 29.6 (27.0-33.0) pg MCHC 33.5 (31.0-35.0) g/dl RDW 12.2 (11.0-16.0) % Plt Count 154 L (160-400) X10*3/uL MPV 8.3 L (9.4-12.3) fL Immature Gran % (Auto) 0.3 (0.0-0.4) % Neut % (Auto) 45.9 (45-73) % Lymph % (Auto) 44.1 H (20-40) % Mayes % (Auto) 7.9 (2-11) % Eos % (Auto) 1.4 (0-4) % Baso % (Auto) 0.4 (0-2) % Lymph # (Auto) 3.5 (1.2-4.9) X10*3/uL Mayes # (Auto) 0.6 (0.1-1.2) X10*3/uL Eos # (Auto) 0.1 (0.0-0.4) X10*3/uL Baso # (Auto) 0.0 (0.0-0.2) X10*3/uL Abs Immat Gran (auto) 0.02 (0.00-0.03) X10*3/uL Absolute Neuts (auto) 3.6 (2.0-8.3) x10*3/uL Absolute Nucleated RBC 0.000 (0.0-0.012) X10*3/uL Nucleated RBC % (auto) 0.0 (0.0-0.2) /100WBC Sodium 137 (135-145) mmol/L Potassium 4.6 (3.3-5.1) mmol/L Chloride 101 (96-108) mmol/L Carbon Dioxide 29 (22-29) mmol/L Anion Gap 12 (12-20) BUN 30 H (9-16) mg/dL Creatinine 0.90 (0.5-1.4) mg/dL Estim Creat Clear Calc 65.0 Estimated GFR > 60 POC Glucose 50 L* (60-115) mg/dL Random Glucose 47 L* (60-115) mg/dL Calcium 9.8 D (8.4-10.2) mg/dL Total Bilirubin 0.3 (0.0-1.0) mg/dL AST 18 (5-31) U/L ALT 19 (0-31) U/L Alkaline Phosphatase 73 (39-117) U/L Total Protein 7.3 (6.5-8.0) g/dL Albumin 3.5 (3.5-5.0) g/dL TSH 1.91 (0.32-4.0) uIU/mL Urine Color Urine Appearance Urine pH (5.0-9.0) Ur Specific [place] (1.005-1.025) Urine Protein (Neg-Trace) mg/dL Urine Glucose (UA) (Negative) mg/dL Urine Ketones (Negative) mg/dL Urine Blood (Negative) Urine Nitrite (Negative) Ur Leukocyte Esterase (Negative) Urine RBC (0-2) /HPF Urine WBC (0-5) /HPF Ur Squamous Epith Cells (0-2) /HPF Urine Bacteria (None Seen) Hyaline Casts (0-2) /LPF Urine Opiates Screen (Not Detect) Urine Fentanyl Screen (Not Detect) Ur Barbiturates Screen (Not Detect) Ur Phencyclidine Scrn (Not Detect) Ur Amphetamines Screen (Not Detect) U Benzodiazepines Scrn (Not Detect) Urine Cocaine Screen (Not Detect) U Marijuana (THC) Screen (Not Detect) Ethyl Alcohol < 10 mg/dL 12/24/22 12/24/22 12/24/22 Range/Units 22:27 22:27 22:36 WBC (4.8-10.8) X10*3/uL RBC (4.20-5.50) X10*6/uL Hgb (12.0-16.0) g/dl Hct (37.0-47.0) % MCV (80.0-98.0) fL MCH (27.0-33.0) pg MCHC (31.0-35.0) g/dl RDW (11.0-16.0) % Plt Count (160-400) X10*3/uL MPV (9.4-12.3) fL Immature Gran % (Auto) (0.0-0.4) % Neut % (Auto) (45-73) % Lymph % (Auto) (20-40) % Mayes % (Auto) (2-11) % Eos % (Auto) (0-4) % Baso % (Auto) (0-2) % Lymph # (Auto) (1.2-4.9) X10*3/uL Mayes # (Auto) (0.1-1.2) X10*3/uL Eos # (Auto) (0.0-0.4) X10*3/uL Baso # (Auto) (0.0-0.2) X10*3/uL Abs Immat Gran (auto) (0.00-0.03) X10*3/uL Absolute Neuts (auto) (2.0-8.3) x10*3/uL Absolute Nucleated RBC (0.0-0.012) X10*3/uL Nucleated RBC % (auto) (0.0-0.2) /100WBC Sodium (135-145) mmol/L Potassium (3.3-5.1) mmol/L Chloride (96-108) mmol/L Carbon Dioxide (22-29) mmol/L Anion Gap (12-20) BUN (9-16) mg/dL Creatinine (0.5-1.4) mg/dL Estim Creat Clear Calc Estimated GFR POC Glucose 147 H (60-115) mg/dL Random Glucose (60-115) mg/dL Calcium (8.4-10.2) mg/dL Total Bilirubin (0.0-1.0) mg/dL AST (5-31) U/L ALT (0-31) U/L Alkaline Phosphatase (39-117) U/L Total Protein (6.5-8.0) g/dL Albumin (3.5-5.0) g/dL TSH (0.32-4.0) uIU/mL Urine Color Straw Urine Appearance Clear Urine pH 6.0 (5.0-9.0) Ur Specific [place] <= 1.005 (1.005-1.025) Urine Protein Negative (Neg-Trace) mg/dL Urine Glucose (UA) Negative (Negative) mg/dL Urine Ketones Negative (Negative) mg/dL Urine Blood Trace (Negative) Urine Nitrite Negative (Negative) Ur Leukocyte Esterase Moderate (2+) H (Negative) Urine RBC 0-2 (0-2) /HPF Urine WBC 21-50 H (0-5) /HPF Ur Squamous Epith Cells 0-2 (0-2) /HPF Urine Bacteria 4+ (None Seen) Hyaline Casts 0-2 (0-2) /LPF Urine Opiates Screen Not Detected (Not Detect) Urine Fentanyl Screen Not Detected (Not Detect) Ur Barbiturates Screen Not Detected (Not Detect) Ur Phencyclidine Scrn Not Detected (Not Detect) Ur Amphetamines Screen Not Detected (Not Detect) U Benzodiazepines Scrn Not Detected (Not Detect) Urine Cocaine Screen Not Detected (Not Detect) U Marijuana (THC) Screen Not Detected (Not Detect) Ethyl Alcohol mg/dL Independent Historian Clinical information obtained from an independent historian. History obtained from or confirmed by: EMS and Other ( son) Prescription Management I considered prescription management with: Other ( anxiety medications insulin) Chronic Conditions Patient?s care impacted by: Diabetes Discharge Plan Discharge Clinical Impression: Type 2 diabetes mellitus, Depression Patient Disposition: Still a Patient Prescriptions: No Action aspirin 81 mg tablet,delayed release (DR/EC) 1 tab PO DAILY pioglitazone 30 mg tablet 1 tab PO DAILY insulin lispro 100 unit/mL insulin pen See Protocol subcut TIDAC Protocol: Insulin Correction Scale Less than or equal to 110 ---- Give (units): 0 111 to 150 Give (units): 0 151 to 200 Give (units): 10 201 to 250 Give (units): 12 251 to 300 Give (units): 14 301 to 350 Give (units): 16 Greater than 350 Give (units): 18 Call MD if Blood Glucose > : 350 Rx Instructions: increase by 2 units per 50mg/dL insulin glargine [Lantus Solostar U-100 Insulin] 100 unit/mL (3 mL) insulin pen 18 unit subcut BEDTIME (DME) FreeStyle Test Strip See Rx Instructions .Route Qty: 100 0RF Rx Instructions: As directed sennosides-docusate sodium [Stimulant Laxative Plus] 8.6-50 mg tablet 1 tab PO QAM lisinopril 10 mg tablet 10 mg PO QAM gabapentin 300 mg capsule 300 mg PO TID polyethylene glycol 3350 [Gavilax] 17 gram/dose powder 17 g PO DAILY rosuvastatin 40 mg tablet 40 mg PO QAM amlodipine 5 mg Tablet 5 mg PO DAILY Qty: 30 0RF Protocol: Hold for SBP< HOLD for SBP < : 90
--- NOTE | 2022-12-24 20:35 | MHC.CM.ED ---
CM received a consult from Dr. Holloway, as patient has hx depression, anxiety and has had her electricity shut off. Requested CM call her son. CM called and spoke with son, Bin Loya ([phone]) at length. Bin tells CM that his mother is very depressed and has a hx of depression for 10 years, but has recently been worse, not paying her electric or her rent. She is facing eviction and has a court date. States his mother is refusing her medications for depression/anxiety, stating they make her nauseous and too sleepy. He is giving her her insulin, but Bin states she does not care for herself. Pcp is Neelima Abreu. Pt has an appointment tomorrow. Bin tells CM that his brother was murdered in [place] on October 26. Shot several times. States the family is very stressed and he is trying to care for her, but that she cannot live with him. CM explained that medically patient is cleared for discharge, but CM would speak with patient about his mental health concerns regarding his mother. CM spoke with Dr. Holloway. Will consult CARE team with regards to increasing depression that is interfering with patients ability to care for herself, take her medications or pay her bills. CM again called Bin to explain that CARE team has been consulted regarding his mother's worsening depression. Bin has CM contact information. If patient is discharged, then patient will need transportation home. CM will follow as needed.
[2022-12-24 21:01] VITALS: BP 118/76; BP 160/73; PULSE 80; PULSE 85; RESP 18; TEMP 37.1; O2SAT 100; BMI 22.2
[2022-12-24 21:32] LABS: MANUAL DIFF FLAG NO
[2022-12-24 21:33] LABS: Basophils Percent Auto 0.4 % (0-2); Eosinophils Absolute Auto 0.1 X10*3/uL (0.0-0.4); Eosinophils Percent Auto 1.4 % (0-4); Hematocrit 38.2 % (37.0-47.0); Hemoglobin 12.8 g/dl (12.0-16.0); Imm Gran Abs Auto 0.02 X10*3/uL (0.00-0.03); Imm Gran Pct Auto 0.3 % (0.0-0.4); Lymphocytes Absolute Auto 3.5 X10*3/uL (1.2-4.9); Lymphocytes Percent Auto 44.1 % (20-40); Mean Corpuscular HGB Conc 33.5 g/dl (31.0-35.0); Mean Corpuscular Hemoglobin 29.6 pg (27.0-33.0); Mean Corpuscular Volume 88.2 fL (80.0-98.0); Mean Platelet Volume 8.3 fL (9.4-12.3); Monocytes Absolute Auto 0.6 X10*3/uL (0.1-1.2); Monocytes Percent Auto 7.9 % (2-11); Neutrophils Absolute Auto 3.6 x10*3/uL (2.0-8.3); Neutrophils Percent Auto 45.9 % (45-73); Platelet Count 154 X10*3/uL (160-400); Red Blood Count 4.33 X10*6/uL (4.20-5.50); Red Cell Distribution Width 12.2 % (11.0-16.0); White Blood Count 7.9 X10*3/uL (4.8-10.8)
[2022-12-24 21:37] LABS: Glucose, Whole Blood 50 mg/dL (60-115)
--- NOTE | 2022-12-24 21:38 | PC.NURSE ---
Pt biba, reports for anxiety and depression. Labs drawn per order. Administering hydroxizine per order
[2022-12-24] MEDS: hydrOXYzine HCL 25 MG TABLET PO (21:43)
[2022-12-24] MEDS: amLODIPine Besylate 5 MG TABLET PO (21:43)
--- NOTE | 2022-12-24 21:44 | PC.NURSE ---
POC: 50, Pt given sandwich and drk. Combs notified. BP 175/70, norvasc ordered. Pt reports minimal dizzines. Sitting up eating in bed. Recheck BP in 1 hour
[2022-12-24 22:09] LABS: Alanine Aminotransferase 19 U/L (0-31); Albumin Level 3.5 g/dL (3.5-5.0); Alkaline Phosphatase 73 U/L (39-117); Anion Gap 12 (12-20); Aspartate Amino Transferase 18 U/L (5-31); Bilirubin Total 0.3 mg/dL (0.0-1.0); Blood Urea Nitrogen 30 mg/dL (9-16); Calcium 9.8 mg/dL (8.4-10.2); Carbon Dioxide 29 mmol/L (22-29); Chloride 101 mmol/L (96-108); Estimated Glomerular Filt Rate > 60; Ethanol < 10 mg/dL; Glucose Random 47 mg/dL (60-115); Potassium 4.6 mmol/L (3.3-5.1); Sodium 137 mmol/L (135-145); Total Protein 7.3 g/dL (6.5-8.0)
[2022-12-24 22:15] LABS: TSH reflex Free T4 1.91 uIU/mL (0.32-4.0)
--- NOTE | 2022-12-24 22:36 | PC.NURSE ---
POC:147
[2022-12-24 22:40] LABS: Appearance Urine Clear; Color Urine Straw; Glucose Urine UA Negative (Negative); Leukocyte Esterase Urine Moderate (2+) (Negative); Nitrite Urine Negative (Negative); Specific Gravity - Urine <= 1.005 (1.005-1.025); UMIC TRIGGER UACC YES; Urine Blood Trace (Negative); Urine Ketones Negative (Negative); Urine Protein Negative (Neg-Trace)
[2022-12-24 22:41] LABS: Glucose, Whole Blood 147 mg/dL (60-115)
[2022-12-24 22:46] LABS: Bacteria Urine 4+ (None Seen); Hyaline Casts Urine 0-2 /LPF (0-2); RBC Urine 0-2 /HPF (0-2); Squamous Epithelial Cell Urine 0-2 /HPF (0-2); UACC Culture Trigger YES; WBC Urine 21-50 /HPF (0-5)
[2022-12-24 22:54] LABS: Amphetamine Screen Urine Not Detected (Not Detect); Barbiturates, Urine Not Detected (Not Detect); Benzodiazepines Screen Urine Not Detected (Not Detect); Cannabinoid Screen Urine Not Detected (Not Detect); Cocaine Screen Urine Not Detected (Not Detect); Opiate Screen Urine Not Detected (Not Detect); Phencyclidine Screen Urine Not Detected (Not Detect)
[2022-12-24 23:10] LABS: Fentanyl, urine Not Detected (Not Detect)
[2022-12-24 23:47] VITALS: BP 151/65; PULSE 82; RESP 16; TEMP 37.1; O2SAT 97
[2022-12-25] MEDS: cephALEXin 500 MG CAPSULE PO (00:59)
--- NOTE | 2022-12-25 06:02 | PC.NURSE ---
Pt awaiting care team consult for question of clinical depression. Per son, patient has been very depressed since other son was murdered in October. Pt has been refusing to take her medications except her insulin reporting it doesn't make her feel good. Per son he has been trying to help but pt has not been paying her bills and currently has no electricity and is getting evicted. Pt denies any SI/HI. Will await eval from care team.
[2022-12-25 06:19] VITALS: BP 103/49; PULSE 66; RESP 16; TEMP 37.1; O2SAT 97
[2022-12-25 06:48] LABS: Glucose, Whole Blood 219 mg/dL (60-115)
[2022-12-25 07:54] VITALS: BP 191/80; PULSE 87; RESP 16; TEMP 36.8; O2SAT 98
[2022-12-25 08:11] LABS: Glucose, Whole Blood 231 mg/dL (60-115)
--- NOTE | 2022-12-25 08:40 | PC.NURSE ---
pt a&ox3. respirations even and unlabored. pt denies SI/HI at this time. pt reports no pain and is resting comfortably.
--- NOTE | 2022-12-25 11:13 | MHC.CARE ---
Pt seen by CARE team for assessment and referred to hospital case management.
[2022-12-25 11:34] VITALS: BP 134/62; PULSE 88; RESP 16; TEMP 37.4; O2SAT 95
[2022-12-25 12:37] LABS: COVID-19 Test Negative (Negative); IDNOW Serial# BCCEAD1C
[2022-12-25 12:52] VITALS: BP 135/67; PULSE 87; RESP 18; O2SAT 96
[2022-12-25] MEDS: lisinopriL 10 MG TABLET PO (12:58)
[2022-12-25] MEDS: Sennosides/Docusate Sodium TABLET 1 TAB PO (12:58)
[2022-12-25 13:02] LABS: Glucose, Whole Blood 204 mg/dL (60-115)
--- NOTE | 2022-12-25 13:45 | PC.NURSE ---
pt POC 204. this Rn spoke to provider about getting a one time dose of insulin coverage due to the pt not having insulin due until 1630.
[2022-12-25] MEDS: Gabapentin 300 MG CAPSULE PO ×2 (15:12→20:47)
--- NOTE | 2022-12-25 15:19 | PC.NURSE ---
anthropology professor at bedside. pt a&ox3. respirations even and unlabored. pt reports no pain. pt looks happy to speak too, smiling as this RN and anthropology professor are speaking to her. pt denies SI/HI at this time. pt does report feeling depressed. pt requesting food at this time. pt is comfortable in bed watching tv and eating crackers.
--- NOTE | 2022-12-25 16:31 | PC.NURSE ---
report given to overflow nurse.
[2022-12-25 17:26] LABS: Glucose, Whole Blood 278 mg/dL (60-115)
[2022-12-25] MEDS: Insulin Lispro 100 UNIT/ML 3 ML VIAL SUBCUT (17:29)
[2022-12-25] MEDS: Insulin Glargine,Hum.rec.anlog 100 UNIT/ML 10 ML VIAL 18 UNIT SUBCUT (20:47)
--- NOTE | 2022-12-25 21:11 | MHC.CM.ED ---
PT states no skill. PT not recommended. Pt does not want to go home. Requesting to stay in [facility]. CARE team cleared pt. No need for inpatient hospitalization. Explained that patient does not have a medical or psychiatric need for hospitalization. Agreeable to long-term referrals. Pt has Medicaid. 16 referrals were placed by previous CM. Only [facility] is following. CM following for discharge planning.
[2022-12-25 22:08] VITALS: BP 157/73; PULSE 88; RESP 17; TEMP 36.5; O2SAT 98
[2022-12-26 07:36] LABS: Glucose, Whole Blood 178 mg/dL (60-115)
[2022-12-26 07:43] VITALS: BP 104/56; PULSE 76; RESP 16; O2SAT 97
[2022-12-26] MEDS: Insulin Lispro 100 UNIT/ML 3 ML VIAL SUBCUT ×2 (07:56→17:00)
[2022-12-26] MEDS: polyethylene glycoL 3350 17 GM POWD.PACK PO (07:56)
[2022-12-26] MEDS: Atorvastatin Calcium 80 MG TABLET PO (07:58)
[2022-12-26] MEDS: Gabapentin 300 MG CAPSULE PO ×3 (07:58→20:12)
[2022-12-26] MEDS: Aspirin Enteric Coated 81 MG TABLET.DR PO (07:58)
[2022-12-26] MEDS: lisinopriL 10 MG TABLET PO (07:58)
[2022-12-26] MEDS: Pioglitazone HCL 30 MG TABLET PO (07:58)
[2022-12-26] MEDS: Sennosides/Docusate Sodium TABLET 1 TAB PO (07:59)
[2022-12-26] MEDS: amLODIPine Besylate 5 MG TABLET PO (07:59)
[2022-12-26 11:58] LABS: Glucose, Whole Blood 132 mg/dL (60-115)
[2022-12-26 15:47] VITALS: BP 171/69; PULSE 93; RESP 14; O2SAT 96
--- NOTE | 2022-12-26 16:10 | MHC.CM.ED ---
Patient remains in ER overflow. No beds available within 25 miles. Met with patient and architect marine. Patient does not feel she can safely go home and is still interested in placement even though it could be anywhere in the [facility]. Referral made to all facilities within the [facility] that are contracted with [facility]. Continue to monitor for d/c needs.
[2022-12-26 16:53] LABS: Glucose, Whole Blood 357 mg/dL (60-115)
--- NOTE | 2022-12-26 17:10 | MHC.EDTECH ---
Patient given dinner
[2022-12-26] MEDS: Insulin Glargine,Hum.rec.anlog 100 UNIT/ML 10 ML VIAL 18 UNIT SUBCUT (20:12)
[2022-12-26 23:30] LABS: Glucose, Whole Blood 111 mg/dL (60-115)
[2022-12-26 23:41] VITALS: BP 143/66; PULSE 95; RESP 18; TEMP 36.3; O2SAT 97
[2022-12-27 06:00] VITALS: BP 112/50; PULSE 80; RESP 14; TEMP 36.3; O2SAT 97
[2022-12-27 07:30] LABS: Glucose, Whole Blood 125 mg/dL (60-115)
[2022-12-27 07:36] VITALS: BP 154/81; PULSE 80; RESP 18; TEMP 36.2; O2SAT 99
--- NOTE | 2022-12-27 08:21 | PC.NURSE ---
patient a&ox3, vss, lungs clear/diminished, pt denies pain/discomfort, per request of provider pt was asked if she had any urinary symptoms, pt denied pain/discomfort with urination although stated she had urinary frequency which has been an issue for a long duration and not new, this was communicated back to provider (jeff). poc was obtained 125- insulin held per orders, commode at bedside, call sampson within reach, will continue to monitor.
[2022-12-27] MEDS: lisinopriL 10 MG TABLET PO (08:46)
[2022-12-27] MEDS: polyethylene glycoL 3350 17 GM POWD.PACK PO (08:46)
[2022-12-27] MEDS: Aspirin Enteric Coated 81 MG TABLET.DR PO (08:46)
[2022-12-27] MEDS: Pioglitazone HCL 30 MG TABLET PO (08:46)
[2022-12-27] MEDS: Atorvastatin Calcium 80 MG TABLET PO (08:47)
[2022-12-27] MEDS: Sennosides/Docusate Sodium TABLET 1 TAB PO (08:47)
[2022-12-27] MEDS: amLODIPine Besylate 5 MG TABLET PO (08:47)
[2022-12-27] MEDS: Gabapentin 300 MG CAPSULE PO (08:47)
--- NOTE | 2022-12-27 10:50 | ECG_ITS ---
Test Reason : chest pain Blood Pressure : / mmHG Vent. Rate : 086 BPM Atrial Rate : 086 BPM P-R Int : 140 ms QRS Dur : 074 ms QT Int : 366 ms P-R-T Axes : 060 000 037 degrees QTc Int : 437 ms Normal sinus rhythm Septal infarct , age undetermined Abnormal ECG When compared with ECG of 22-DEC-2022 11:37, No significant change was found Referred By: Cande Miller Electronically Signed By:CRISTA OWEN
[2022-12-27] MEDS: Acetaminophen 325 MG TABLET 975 MG PO (11:07)
[2022-12-27] MEDS: LORazepam 1 MG TABLET PO (11:07)
[2022-12-27 11:10] VITALS: BP 178/74; PULSE 87; RESP 22; TEMP 36.3; O2SAT 97
--- NOTE | 2022-12-27 11:17 | PC.NURSE ---
patient rang call sampson, with assist of court interpreter patient had c/o 9/10 left chest pain, non radiating, denies nausea/sob, pt asked if she felt if she was anxious and she denied anxiety, vitals obtained-stable, ekg obtained, iv inserted, troponin drawn per order, pt medicated per order, call sampson within reach, will continue to monitor
[2022-12-27 11:30] LABS: Glucose, Whole Blood 265 mg/dL (60-115)
[2022-12-27] MEDS: Insulin Lispro 100 UNIT/ML 3 ML VIAL SUBCUT (11:35)
[2022-12-27 11:36] LABS: Troponin-I High Sensitivity < 2.7 ng/L (<3.5-17.0)
--- NOTE | 2022-12-27 11:36 | PC.NURSE ---
pt placed on cardiac cath tech, pt nsr, pt now states her chest pain is completely resolved and is sitting up eating lunch.
--- NOTE | 2022-12-27 13:22 | MHC.CM.ED ---
Patient remains in ER overflow. [facility] is able to offer a bed. Facility is about 90 mins away from patient's residence. Met with patient and ad compositor. Bed offer discussed. Patient declining bed at this time and will go home. Chair van booked for 130pm. Patient, Montse GREGORIO and Cande AREVALO aware. Continue to monitor for d/c needs.
== END 2022-12-27 14:55 | disposition home or self-care (01) ==
PROVIDERS: Physician Assistant; Emergency Provider Emergency Medicine
DX: F33.1 Major depressive disorder, recurrent, moderate (principal); F41.1 Generalized anxiety disorder; F43.0 Acute stress reaction; N39.0 Urinary tract infection, site not specified; R06.4 Hyperventilation; R07.89 Other chest pain; F43.20 Adjustment disorder, unspecified; E11.9 Type 2 diabetes mellitus without complications; Z20.822 Contact with and (suspected) exposure to COVID-19; Z79.4 Long term (current) use of insulin; Z79.899 Other long term (current) drug therapy; Z20.828 Contact with and (suspected) exposure to other viral communicable diseases
CPT/HCPCS: 36415; 80053; 80307; 81001; 82947; 84443; 84484; 85025; 87086; 87088; 87186; 87635; 93005; 97161; 99285; S9485

== ENCOUNTER 2022-12-27 16:06 | Emergency (ER) | payer MEDICAID, SELFPAY ==
[2022-12-27 16:12] VITALS: BP 176/86; PULSE 87; RESP 16; TEMP 37; O2SAT 100; BMI 22.2
--- NOTE | 2022-12-27 16:32 | PHA.MEDREC ---
Pharmacy Consult ? Medication Reconciliation Pharmacy has completed the medication reconciliation. Patient just discharged from [facility] today, 12/27/22. Used medical recorded for discharge summary. Jimena Hayes, DemetrioD
--- NOTE | 2022-12-27 16:34 | PHA.MEDREC ---
Pharmacy Consult ? Medication Reconciliation Pharmacy has completed the medication reconciliation. Patient just discharged from [facility] today, 12/27/22. Used medical recorded for med rec. Jimena Hayes, DemetrioD
--- NOTE | 2022-12-27 17:28 | ED.GENADULT ---
HPI - General Adult General Chief complaint: General Medical Stated complaint: ANXIETY ,DIZZY Time Seen by Provider: 12/27/22 17:01 Source: patient and family Mode of arrival: EMS Limitations: no limitations History of Present Illness HPI narrative: 52-year-old female presents with wanting to be re-evaluated. Patient was just here over the past day with complaints of anxiety. She was seen by our care team and deemed not to be candidate for hospitalization. Case Management was then involved. They had obtained a bed for her lipid study and ship however, was [address] refused to [address]. Patient was discharged by ambulance and return immediately back because of anxiety and dizziness. Patient describes the sensation and movement. She describes as mild. There is no clear relieving or exacerbating features. She denies any chest pain, shortness of breath, headaches, fever, chills. She has no active nausea vomiting. Patient is here with her son who was at this point frustrated. He believes a significant amount of this is psychological. She does have a history of hypertension and is not taking her medications because of the side effect of dizziness and diarrhea. She does have a therapist however she has mitts multiple appointments both with her primary care doctor and her therapist due to frequent visits to the emergency department. Son also reports that her psychological symptoms have been going on for 3 years which precedes the murder of her son. Related Data Home Medications Medication Instructions Recorded Confirmed aspirin 81 mg tablet,delayed 1 tab PO DAILY 07/21/22 12/27/22 release insulin glargine 100 unit/mL (3 18 unit subcut BEDTIME 07/21/22 12/27/22 mL) subcutaneous pen (Lantus Solostar U-100 Insulin) insulin lispro 100 unit/mL See Protocol subcut TIDAC 07/21/22 12/27/22 subcutaneous pen pioglitazone 30 mg tablet 1 tab PO DAILY 07/21/22 12/27/22 gabapentin 300 mg capsule 300 mg PO TID 12/17/22 12/27/22 lisinopril 10 mg tablet 10 mg PO QAM 12/17/22 12/27/22 polyethylene glycol 3350 17 17 g PO DAILY 12/17/22 12/27/22 gram/dose oral powder (Gavilax) rosuvastatin 40 mg tablet 40 mg PO QAM 12/17/22 12/27/22 sennosides 8.6 mg-docusate sodium 1 tab PO QAM 12/17/22 12/27/22 50 mg tablet (Stimulant Laxative Plus) Previous Rx's Medication Instructions Recorded blood sugar diagnostic (FreeStyle #100 ea 10/02/22 Test strips) amlodipine 5 mg tablet 5 mg PO DAILY #30 tabs 12/20/22 Allergies Allergy/AdvReac Type Severity Reaction Status Date / Time shrimp Allergy Swelling Verified 12/07/22 11:37 Review of Systems Review of Systems: CONSTITUTIONAL: Denies weight loss, fever and chills. HEENT: Denies changes in vision and hearing. RESPIRATORY: Denies SOB and cough. CV: Denies palpitations no CP. GI: Denies abdominal pain, nausea, vomiting and diarrhea. : Denies dysuria and urinary frequency. MSK: Denies myalgia and joint pain. SKIN: Denies rash and pruritus. NEUROLOGICAL: Denies headache and syncope. Positive dizziness PSYCHIATRIC: Denies recent changes in mood. + anxiety and depression. All other ROS are negative unless in HPI PMFSH Past Medical History Medical History Anemia Brain lesion Depression HLD (hyperlipidemia) Iron deficiency anemia Type 2 diabetes mellitus Family History Family History Other Hypertension Social History Social History Household Members: Children and None Household Members Other:: Daughter Housing: Apartment Do you presently have visiting nurse or other home services: Yes ([facility]) Unable to assess alcohol history related to: Unable to respond Alcohol intake: never Patient Tobacco Use Status: Never used Tobacco e-Cigarette/Vaping Use: Never Used Second Hand Smoke Exposure: No Advance Directives: Yes Advance Directives on File: Yes Advance Directives Date on File: 06/19/21 service: No Current occupational status: unemployed Physical Exam ED Vital Signs: Vital Signs - 24 hr 12/27/22 16:12 12/27/22 17:43 Temperature 98.6 F Pulse Rate 87 87 Respiratory Rate 16 18 Blood Pressure 176/86 H 175/84 H Pulse Oximetry 100 99 Oxygen Delivery Method Room Air Room Air BMI result Body Mass Index 22.2 GEN: Well developed, no acute distress, alert, oriented HEENT: Normocephalic, atraumatic, normal external ears, nose appears normal Eyes: Normal to appearance Neck: Supple, no lymphadenopathy Respiratory: Talks in complete sentences, no respiratory distress Extremities: No clubbing cyanosis or edema Neurologic: No focal neurologic deficits, cranial nerves 2-12 intact, gait normal Skin: No rash Course Course Course Narrative: I have had extensive conversations with the patient and the son. Patient will be discharged at this time. We do not have any additional management of her psychological and medical conditions at this time. Patient will need to restart her blood pressure medication. Based on her side effects, I will restart amlodipine at 2.5 mg daily. She can follow-up with her primary care provider for continued medication adjustments. As far as her psychological components are concerned, there does not appear to be in need for emergent hospitalization. She has been offered long-term care elsewhere but has refused. Patient lives downstairs for son and he is comfortable taking her home. I have expressed concern to the patient that medically she appears to be doing well except for her blood pressure we did she needs to be managed by actually taking her medications. I will be discharging the patient at this time and she can follow-up with her primary care provider. I also recommended psychiatric consultation. Patient would likely benefit from starting medications. Medications Administered Discontinued Medications Generic Name Dose Route Start Last Admin Trade Name Emiliana PRN Reason Stop Dose Admin Acetaminophen 975 mg 12/27/22 17:22 12/27/22 17:39 Acetaminophen 325 Mg Tablet PO 12/27/22 17:23 975 mg ONCE ONE Administration Amlodipine Besylate 2.5 mg 12/27/22 17:22 12/27/22 17:40 Amlodipine Besylate 2.5 Mg Tablet PO 12/27/22 17:23 2.5 mg ONCE ONE Administration Protocol Medical Decision Making Medical Decision Making MDM Narrative: 52-year-old female with type 2 diabetes, hypertension, medication noncompliance with symptoms of dizziness, anxiety and depression. Patient was just discharged today after care team evaluation and Case Management. There is no indication for emergent medical evaluation. I had spoke with at length with the patient's son and the patient about her psychological issues. I have recommended Psychiatry and Psychology. Her differential diagnosis includes depression, anxiety, PTSD, adjustment reaction, grief. She is also noted to be hypertensive. This is likely due to medication noncompliance. She does have a number of side effects from the medication. As a result, I will review her medications, side effects and talar regimen that would be appropriate for her. Differential Diagnosis Differential Diagnoses: The differential diagnosis associated with the presentation includes (Depression, anxiety, PTSD, grief, adjustment reaction, hypertension) Independent Historian Clinical information obtained from an independent historian. History obtained from or confirmed by: Other (Son) External Record Review External record reviewed: Other (Care team consultations, so case management consultations) Prescription Management I considered prescription management with: Pain Medication Chronic Conditions Patient?s care impacted by: Diabetes and Hypertension Discharge Plan Discharge Clinical Impression: Hypertension, Depression Patient Disposition: Home, Self-Care Instructions: Depression (ED), Hypertension (ED) Additional Instructions: Restart your amlodipine at 2.5 mg daily instead of 5 mg. Follow-up with her primary care provider for further medication adjustments. Prescriptions: No Action aspirin 81 mg tablet,delayed release (DR/EC) 1 tab PO DAILY pioglitazone 30 mg tablet 1 tab PO DAILY insulin lispro 100 unit/mL insulin pen See Protocol subcut TIDAC Protocol: Insulin Correction Scale Less than or equal to 110 ---- Give (units): 0 111 to 150 Give (units): 0 151 to 200 Give (units): 10 201 to 250 Give (units): 12 251 to 300 Give (units): 14 301 to 350 Give (units): 16 Greater than 350 Give (units): 18 Call MD if Blood Glucose > : 350 Rx Instructions: increase by 2 units per 50mg/dL insulin glargine [Lantus Solostar U-100 Insulin] 100 unit/mL (3 mL) insulin pen 18 unit subcut BEDTIME (DME) FreeStyle Test Strip See Rx Instructions .Route Qty: 100 0RF Rx Instructions: As directed budsides-docusate sodium [Stimulant Laxative Plus] 8.6-50 mg tablet 1 tab PO QAM lisinopril 10 mg tablet 10 mg PO QAM gabapentin 300 mg capsule 300 mg PO TID polyethylene glycol 3350 [Gavilax] 17 gram/dose powder 17 g PO DAILY rosuvastatin 40 mg tablet 40 mg PO QAM amlodipine 5 mg Tablet 5 mg PO DAILY Qty: 30 0RF Protocol: Hold for SBP< HOLD for SBP < : 90 Referrals: [facility] [Primary Care Provider] - 3 days
[2022-12-27] MEDS: Acetaminophen 325 MG TABLET 975 MG PO (17:39)
[2022-12-27] MEDS: amLODIPine Besylate 2.5 MG TABLET PO (17:40)
[2022-12-27 17:43] VITALS: BP 175/84; PULSE 87; RESP 18; O2SAT 99
--- NOTE | 2022-12-27 18:03 | PC.NURSE ---
patient d/c with son
== END 2022-12-27 18:04 | disposition home or self-care (01) ==
PROVIDERS: Emergency Provider Emergency Medicine
DX: F32.A Depression, unspecified (principal); I10 Essential (primary) hypertension; F41.8 Other specified anxiety disorders; E11.9 Type 2 diabetes mellitus without complications; E78.5 Hyperlipidemia, unspecified; D50.9 Iron deficiency anemia, unspecified; Z79.82 Long term (current) use of aspirin; Z79.4 Long term (current) use of insulin; Z79.899 Other long term (current) drug therapy
CPT/HCPCS: 99283; 99284

== ENCOUNTER 2023-01-21 14:00 | Inpatient (IN) | payer MEDICAID, SELFPAY ==
--- NOTE | ~2023-01-21 | CT_ITS ---
EXAMINATION: CT ABDOMEN AND PELVIS WITHOUT CONTRAST CLINICAL INFORMATION: Right lower quadrant pain COMPARISON: CT abdomen and pelvis with IV contrast 12/07/2022. TECHNIQUE: Multidetector volumetric imaging was performed from the superior aspect of the liver through the pubic symphysis. Sagittal and coronal reformatted images were obtained on the technologist's workstation. This CT examination was performed using dose optimization techniques as appropriate, variously including the following: *Automated exposure control *Adjustment of mA and/or kV according to patient size (this includes techniques or standardized protocols for targeted exams where dose is matched to indication/reason for exam; i.e. extremities or head) *Use of iterative reconstruction technique DLP: For 01 mGy-cm FINDINGS: LUNG BASES: The lung bases are clear. The heart size is normal. LIVER, GALLBLADDER, AND BILIARY TREE: The liver is normal in size, shape, and attenuation. There is a punctate 3 mm nonspecific calcification right hepatic lobe No focal hepatic lesion or biliary ductal dilatation is present. The gallbladder has been surgically removed. PANCREAS: Unremarkable. SPLEEN: Unremarkable. ADRENAL GLANDS: Unremarkable. KIDNEYS AND URETERS: The kidneys are normal in size, shape, and attenuation. No hydronephrosis, hydroureter, or calculi seen. No perinephric stranding. BLADDER: The bladder is significantly distended extending to the umbilicus this results in mild prominence of the right ureter. GASTROINTESTINAL TRACT: There is a large amount of stool in the colon without significant distention. There is nonspecific mild mural thickening of right colon without pericolic stranding. Likely normal appendix. No inflammatory process seen in the abdomen or pelvis. No free air or free fluid. The small bowel loops are not dilated. The stomach is distended with recently ingested food. ABDOMINAL WALL: No significant hernia is appreciated. LYMPH NODES: No abnormal neck lymph nodes seen. VASCULAR: Unremarkable. PELVIC VISCERA: Unremarkable. OSSEOUS STRUCTURES: No aggressive lytic or sclerotic process seen. Mild superior endplate deformity L1 superior endplate likely chronic CT/CT abdomen pelvis wo IV con IMPRESSION: 1. Significantly distended urinary bladder extending to the level of the umbilicus with mild prominence of the right ureter. 2. Moderate constipation without obstruction. Likely normal appendix. 3. No radiopaque urolith or hydroureteronephrosis. 4. Nonspecific mild mural thickening ascending colon and splenic flexure question low-grade colitis no pericolic fat stranding. Fleischner guidelines were followed.
[2023-01-21 14:07] VITALS: BP 170/82; PULSE 97; O2SAT 97
--- NOTE | 2023-01-21 14:07 | ED_ITS ---
HPI - Abdominal Pain General Chief Complaint: Abdominal Pain Stated Complaint: ABD PAIN Time Seen by Provider: 01/21/23 14:34 Related Data Home Medications Medication Instructions Recorded Confirmed aspirin 81 mg tablet,delayed 1 tab PO DAILY 07/21/22 01/21/23 release insulin glargine 100 unit/mL (3 18 unit subcut BEDTIME 07/21/22 01/21/23 mL) subcutaneous pen (Lantus Solostar U-100 Insulin) insulin lispro 100 unit/mL See Protocol subcut TIDAC 07/21/22 01/21/23 subcutaneous pen pioglitazone 30 mg tablet 1 tab PO DAILY 07/21/22 01/21/23 gabapentin 300 mg capsule 300 mg PO TID 12/17/22 01/21/23 lisinopril 10 mg tablet 10 mg PO QAM 12/17/22 01/21/23 polyethylene glycol 3350 17 17 g PO DAILY 12/17/22 01/21/23 gram/dose oral powder (Gavilax) rosuvastatin 40 mg tablet 40 mg PO QAM 12/17/22 01/21/23 sennosides 8.6 mg-docusate sodium 1 tab PO QAM 12/17/22 01/21/23 50 mg tablet (Stimulant Laxative Plus) Previous Rx's Medication Instructions Recorded blood sugar diagnostic (FreeStyle #100 ea 10/02/22 Test strips) amlodipine 5 mg tablet 5 mg PO DAILY #30 tabs 12/20/22 Allergies Allergy/AdvReac Type Severity Reaction Status Date / Time shrimp Allergy Swelling Verified 01/21/23 14:21 [facility] Past Medical History Medical History Symptomatic anemia Hypertension Brain lesion Iron deficiency anemia HLD (hyperlipidemia) Anemia Depression Type 2 diabetes mellitus Family History Family History Other Hypertension Social History Social History Household Members: Children and None Household Members Other:: Daughter Housing: Apartment Do you presently have visiting nurse or other home services: Yes ([facility]) Unable to assess alcohol history related to: Unable to respond Alcohol intake: never Patient Tobacco Use Status: Never used Tobacco e-Cigarette/Vaping Use: Never Used Second Hand Smoke Exposure: No Advance Directives: Yes Advance Directives on File: Yes Advance Directives Date on File: 06/19/21 service: No Current occupational status: unemployed Physical Exam ED Vital Signs: Vital Signs - 24 hr 01/21/23 14:16 01/21/23 16:00 01/21/23 20:26 Temperature 97.2 F Pulse Rate 94 97 96 Respiratory Rate 20 16 Blood Pressure 75/41 L 186/81 H 188/87 H Pulse Oximetry 100 97 Oxygen Delivery Method Room Air Room Air 01/21/23 20:27 01/21/23 20:27 Temperature Pulse Rate 94 98 Respiratory Rate Blood Pressure 185/89 H 114/62 Pulse Oximetry Oxygen Delivery Method BMI result Body Mass Index 29.0 Course Course Course Narrative: RME - 52 y/o [place]ian speaking female with history of HTN, depression, anemia, orthostatic hypotension, pyelonephrtitis, DM on insulin who is presenting from home via EMS with acute onset of RLQ pain that started this morning. + nausea but no vomiting or diarrhea. She reports dizziness as well. Tearful in triage due to dizziness. BP 70/40 x3 in triage. Brought back to treatment room right away Plan: IVF, labs and CT scan abd/pelvis. MD aware Reevaluation(s) Reevaluation #1: see Dr. Mcconnell's note for full evaluation and treatment Medical Decision Making Lab Data 01/21/23 14:44 01/22/23 05:47 Labs: Lab Results 01/21/23 01/21/23 01/21/23 Range/Units 14:44 16:35 16:58 WBC 8.3 (4.8-10.8) X10*3/uL RBC 3.90 L (4.20-5.50) X10*6/uL Hgb 11.3 L (12.0-16.0) g/dl Hct 33.5 L (37.0-47.0) % MCV 85.9 (80.0-98.0) fL MCH 29.0 (27.0-33.0) pg MCHC 33.7 (31.0-35.0) g/dl RDW 12.6 (11.0-16.0) % Plt Count 190 (160-400) X10*3/uL MPV 8.3 L (9.4-12.3) fL Immature Gran % (Auto) 0.2 (0.0-0.4) % Neut % (Auto) 50.5 (45-73) % Lymph % (Auto) 40.9 H (20-40) % [place] % (Auto) 6.4 (2-11) % Eos % (Auto) 1.6 (0-4) % Baso % (Auto) 0.4 (0-2) % Lymph # (Auto) 3.4 (1.2-4.9) X10*3/uL [place] # (Auto) 0.5 (0.1-1.2) X10*3/uL Eos # (Auto) 0.1 (0.0-0.4) X10*3/uL Baso # (Auto) 0.0 (0.0-0.2) X10*3/uL Abs Immat Gran (auto) 0.02 (0.00-0.03) X10*3/uL Absolute Neuts (auto) 4.2 (2.0-8.3) x10*3/uL Absolute Nucleated RBC 0.000 (0.0-0.012) X10*3/uL Nucleated RBC % (auto) 0.0 (0.0-0.2) /100WBC Sodium 139 (135-145) mmol/L Potassium 3.8 (3.3-5.1) mmol/L Chloride 105 (96-108) mmol/L Carbon Dioxide 28 (22-29) mmol/L Anion Gap 10 L (12-20) BUN 21 H (9-16) mg/dL Creatinine 0.90 (0.5-1.4) mg/dL Estim Creat Clear Calc 77.9 Estimated GFR > 60 POC Glucose 137 H (60-115) mg/dL Random Glucose 53 L* (60-115) mg/dL Lactic Acid 2.7 H* (0.5-2.0) mmol/L Lactic Acid F/U @ 2Hr (0.5-2.0) mmol/L Calcium 10.4 H D (8.4-10.2) mg/dL Magnesium 2.0 (1.6-2.6) mg/dL Total Bilirubin 0.3 (0.0-1.0) mg/dL Direct Bilirubin 0.1 (0.0-0.5) mg/dL AST 19 (5-31) U/L ALT 20 (0-31) U/L Alkaline Phosphatase 69 (39-117) U/L Troponin I High Sens 4.0 (<3.5-17.0) ng/L Total Protein 7.6 (6.5-8.0) g/dL Albumin 3.6 (3.5-5.0) g/dL Lipase 33 (8-78) U/L Urine Color Urine Appearance Urine pH (5.0-9.0) Ur Specific [place] (1.005-1.025) Urine Protein (Neg-Trace) mg/dL Urine Glucose (UA) (Negative) mg/dL Urine Ketones (Negative) mg/dL Urine Blood (Negative) Urine Nitrite (Negative) Ur Leukocyte Esterase (Negative) Urine RBC (0-2) /HPF Urine WBC (0-5) /HPF Ur Squamous Epith Cells (0-2) /HPF Urine Bacteria (None Seen) Hyaline Casts (0-2) /LPF Urine Opiates Screen (Not Detect) Urine Fentanyl Screen (Not Detect) Ur Barbiturates Screen (Not Detect) Ur Phencyclidine Scrn (Not Detect) Ur Amphetamines Screen (Not Detect) U Benzodiazepines Scrn (Not Detect) Urine Cocaine Screen (Not Detect) U Marijuana (THC) Screen (Not Detect) Ethyl Alcohol < 10 mg/dL Blood Type A Positive Antibody Screen NEGATIVE 01/21/23 01/21/23 Range/Units 18:38 18:52 WBC (4.8-10.8) X10*3/uL RBC (4.20-5.50) X10*6/uL Hgb (12.0-16.0) g/dl Hct (37.0-47.0) % MCV (80.0-98.0) fL MCH (27.0-33.0) pg MCHC (31.0-35.0) g/dl RDW (11.0-16.0) % Plt Count (160-400) X10*3/uL MPV (9.4-12.3) fL Immature Gran % (Auto) (0.0-0.4) % Neut % (Auto) (45-73) % Lymph % (Auto) (20-40) % [place] % (Auto) (2-11) % Eos % (Auto) (0-4) % Baso % (Auto) (0-2) % Lymph # (Auto) (1.2-4.9) X10*3/uL [place] # (Auto) (0.1-1.2) X10*3/uL Eos # (Auto) (0.0-0.4) X10*3/uL Baso # (Auto) (0.0-0.2) X10*3/uL Abs Immat Gran (auto) (0.00-0.03) X10*3/uL Absolute Neuts (auto) (2.0-8.3) x10*3/uL Absolute Nucleated RBC (0.0-0.012) X10*3/uL Nucleated RBC % (auto) (0.0-0.2) /100WBC Sodium (135-145) mmol/L Potassium (3.3-5.1) mmol/L Chloride (96-108) mmol/L Carbon Dioxide (22-29) mmol/L Anion Gap (12-20) BUN (9-16) mg/dL Creatinine (0.5-1.4) mg/dL Estim Creat Clear Calc Estimated GFR POC Glucose (60-115) mg/dL Random Glucose (60-115) mg/dL Lactic Acid (0.5-2.0) mmol/L Lactic Acid F/U @ 2Hr 1.2 (0.5-2.0) mmol/L Calcium (8.4-10.2) mg/dL Magnesium (1.6-2.6) mg/dL Total Bilirubin (0.0-1.0) mg/dL Direct Bilirubin (0.0-0.5) mg/dL AST (5-31) U/L ALT (0-31) U/L Alkaline Phosphatase (39-117) U/L Troponin I High Sens (<3.5-17.0) ng/L Total Protein (6.5-8.0) g/dL Albumin (3.5-5.0) g/dL Lipase (8-78) U/L Urine Color Yellow Urine Appearance Cloudy Urine pH 5.5 (5.0-9.0) Ur Specific [place] <= 1.005 (1.005-1.025) Urine Protein 100 (2+) H (Neg-Trace) mg/dL Urine Glucose (UA) Negative (Negative) mg/dL Urine Ketones Negative (Negative) mg/dL Urine Blood Trace H (Negative) Urine Nitrite Negative (Negative) Ur Leukocyte Esterase Large (3+) H (Negative) Urine RBC 0-2 (0-2) /HPF Urine WBC >50 H (0-5) /HPF Ur Squamous Epith Cells 0-2 (0-2) /HPF Urine Bacteria 4+ (None Seen) Hyaline Casts 0-2 (0-2) /LPF Urine Opiates Screen Not Detected (Not Detect) Urine Fentanyl Screen Not Detected (Not Detect) Ur Barbiturates Screen Not Detected (Not Detect) Ur Phencyclidine Scrn Not Detected (Not Detect) Ur Amphetamines Screen Not Detected (Not Detect) U Benzodiazepines Scrn Not Detected (Not Detect) Urine Cocaine Screen Not Detected (Not Detect) U Marijuana (THC) Screen Not Detected (Not Detect) Ethyl Alcohol mg/dL Blood Type Antibody Screen Medications Administered Generic Name Dose Route Start Last Admin Trade Name Freq PRN Reason Stop Dose Admin Acetaminophen 650 mg 01/21/23 20:29 01/21/23 21:20 Acetaminophen 325 Mg Tablet PO 650 mg Q6H PRN Administration Pain, Mild (Pain Scale 1-3) Enoxaparin Sodium 40 mg 01/21/23 21:00 01/21/23 23:44 Enoxaparin Sodium 40 Mg/0.4 Ml Syringe SUBCUT 40 mg Q24H JM Administration Gabapentin 300 mg 01/21/23 22:50 01/21/23 23:08 Gabapentin 300 Mg Capsule PO 300 mg TID JM Administration Meropenem 1 gm/ Sodium 100 mls @ 200 mls/hr 01/21/23 22:00 01/22/23 00:22 Chloride IV Infused Q8H JM Infusion Insulin Human Lispro 0 unit 01/21/23 21:00 01/22/23 00:00 Insulin Lispro 100 Unit/Ml 3 Ml Vial SUBCUT 2 unit QIDACHS JM Administration Protocol Morphine Sulfate 2 mg 01/21/23 22:52 01/21/23 23:08 Morphine Sulfate 2 Mg/Ml Cartridge IVPUSH 2 mg Q4H PRN Administration Pain, Severe (Pain Scale 7-10) Protocol Sodium Chloride 3 ml 01/22/23 00:00 01/22/23 03:55 0.9 % Sodium Chloride Flush 3 Ml Syringe IVFLUSH 3 ml QSHIFT JM Administration Discontinued Medications Generic Name Dose Route Start Last Admin Trade Name Emiliana PRN Reason Stop Dose Admin Sodium Chloride 1,000 mls @ 999 mls/hr 01/21/23 14:30 01/21/23 17:13 Ns IVCONT 01/21/23 15:30 Infused .Q1H1M JM Infusion Sodium Chloride 2,000 mls @ 999 mls/hr 01/21/23 20:25 01/21/23 23:21 Ns IVCONT 01/21/23 22:25 Infused .Q2H1M ONE Infusion Ertapenem 1 gm/ Sodium 50 mls @ 100 mls/hr 01/21/23 20:28 01/21/23 21:23 Chloride IV 01/21/23 20:57 Infused ONCE ONE Infusion Discharge Plan Discharge Clinical Impression: Orthostatic hypotension, Urinary tract infection due to ESBL Klebsiella, Hypoglycemia Patient Disposition: Admitted As Inpatient
[2023-01-21 14:16] VITALS: BP 75/41; PULSE 94; RESP 20; TEMP 36.2; O2SAT 100; BMI 29.0
--- NOTE | 2023-01-21 14:45 | ECG_ITS ---
Test Reason : WEAKNESS Blood Pressure : / mmHG Vent. Rate : 094 BPM Atrial Rate : 094 BPM P-R Int : 136 ms QRS Dur : 070 ms QT Int : 368 ms P-R-T Axes : 067 005 000 degrees QTc Int : 460 ms Normal sinus rhythm Possible Anterior infarct (cited on or before 27-DEC-2022) Nonspecific T wave abnormality Abnormal ECG When compared with ECG of 27-DEC-2022 10:59, Nonspecific T wave abnormality, worse in Inferior leads and Lateral leads Referred By: Samira Jacob Electronically Signed By:CRISTA OWEN
--- NOTE | 2023-01-21 14:47 | ED_ITS ---
HPI - General Adult General Chief complaint: Abdominal Pain Stated complaint: ABD PAIN Time Seen by Provider: 01/21/23 14:34 Source: patient Mode of arrival: EMS Limitations: no limitations History of Present Illness HPI narrative: Patient comes to the emergency room complaining of chronic abdominal pain and lightheadedness. Patient states that she has no chest pain or shortness of breath, denies any nausea vomiting diarrhea. EMS reports that the patient's blood pressure was in the low 70s today. Patient denies any rectal bleeding or black stool. When patient arrived to emergency room, blood pressure was still in the low 70s, patient was taken immediately to the main ED, blood pressure was retaken and it was 143 systolic and he was recheck multiple times. At this time, patient states that she just does not feel well. Of note, 1 month ago on 12/20/2022, patient was discharged from this hospital, patient was admitted for similar reason. Patient came in complaining of chronic abdominal pain and hypotension. Patient was diagnosed with symptomatic anemia for which she received a blood transfusion. Also, diagnosed with dehydration. Patient was noted to have asymptomatic bacteriuria with ESBL Klebsiella, per Infectious Disease, since patient was asymptomatic, antibiotics were not recommended Related Data Home Medications Medication Instructions Recorded Confirmed aspirin 81 mg tablet,delayed 1 tab PO DAILY 07/21/22 12/27/22 release insulin glargine 100 unit/mL (3 18 unit subcut BEDTIME 07/21/22 12/27/22 mL) subcutaneous pen (Lantus Solostar U-100 Insulin) insulin lispro 100 unit/mL See Protocol subcut TIDAC 07/21/22 12/27/22 subcutaneous pen pioglitazone 30 mg tablet 1 tab PO DAILY 07/21/22 12/27/22 gabapentin 300 mg capsule 300 mg PO TID 12/17/22 12/27/22 lisinopril 10 mg tablet 10 mg PO QAM 12/17/22 12/27/22 polyethylene glycol 3350 17 17 g PO DAILY 12/17/22 12/27/22 gram/dose oral powder (Gavilax) rosuvastatin 40 mg tablet 40 mg PO QAM 12/17/22 12/27/22 sennosides 8.6 mg-docusate sodium 1 tab PO QAM 12/17/22 12/27/22 50 mg tablet (Stimulant Laxative Plus) Previous Rx's Medication Instructions Recorded blood sugar diagnostic (FreeStyle #100 ea 10/02/22 Test strips) amlodipine 5 mg tablet 5 mg PO DAILY #30 tabs 12/20/22 nitrofurantoin 100 mg PO Q12H 3 days #6 caps 12/27/22 monohydrate/macrocrystals 100 mg capsule (Macrobid) Allergies Allergy/AdvReac Type Severity Reaction Status Date / Time shrimp Allergy Swelling Verified 01/21/23 14:21 Review of Systems 2 Review of Systems: Constitutional : No Weight loss, No Fever, No Chills, No Night Sweats, No Fatigue, complaining of generalized malaise ENT/Mouth : No Hearing loss, No Ear Pain, No Nasal Congestion, No Sinus Pain, No Hoarseness, No sore throat, No Rhinorrhea, No Swallowing Difficulty Eyes: No Eye Pain, No Swelling, No Redness, No Foreign Body, No Discharge, No Vision Changes Cardiovascular : No Chest Pain, No SOB, No Dyspnea on Exertion, No Orthopnea, No Edema, No Palpitations Respiratory : No Cough, No Sputum, No Wheezing, No Smoke Exposure, No Dyspnea Gastrointestinal : No Nausea, No Vomiting, No Diarrhea, No Constipation, No abdominal Pain, No Hematochezia, No Melena Genitourinary : no irregular bleeding, No Dysuria, No Urinary Frequency, No Hematuria, No Urinary Incontinence, No Urgency, No Flank Pain, No Urinary Flow Changes, No Hesitancy Musculoskeletal : No joint pain, No Myalgias, No Joint Swelling Skin : No Skin Lesions, No rash Neuro : No Weakness, No Numbness, No Paresthesias, complaining of lightheadedness Psych : No Anxiety/Panic, No Depression, No SI/HI/AH/VH, No Social Issues, Heme/Lymph: No Bruising, No Bleeding,No Lymphadenopathy Endocrine : No Polyuria, No Polydipsia, No Temperature Intolerance [facility] Past Medical History Medical History Symptomatic anemia Hypertension Brain lesion Iron deficiency anemia HLD (hyperlipidemia) Anemia Depression Type 2 diabetes mellitus Family History Family History Other Hypertension Social History Social History Household Members: Children and None Household Members Other:: Daughter Housing: Apartment Do you presently have visiting nurse or other home services: Yes ([facility]) Unable to assess alcohol history related to: Unable to respond Alcohol intake: never Patient Tobacco Use Status: Never used Tobacco e-Cigarette/Vaping Use: Never Used Second Hand Smoke Exposure: No Advance Directives: Yes Advance Directives on File: Yes Advance Directives Date on File: 06/19/21 service: No Current occupational status: unemployed Physical Exam ED Vital Signs: Vital Signs - 24 hr 01/21/23 14:16 01/21/23 16:00 01/21/23 20:26 Temperature 97.2 F Pulse Rate 94 97 96 Respiratory Rate 20 16 Blood Pressure 75/41 L 186/81 H 188/87 H Pulse Oximetry 100 97 Oxygen Delivery Method Room Air Room Air 01/21/23 20:27 01/21/23 20:27 Temperature Pulse Rate 94 98 Respiratory Rate Blood Pressure 185/89 H 114/62 Pulse Oximetry Oxygen Delivery Method BMI result Body Mass Index 29.0 Const Other: Appearance: Alert. Oriented X3. Seems uncomfortable Eyes: Pupils equal, round and reactive to light. ENT: Pharynx normal. Neck: Normal inspection. Neck supple. No lymph nodes noted. No crepitus CVS: Normal heart rate and rhythm. Pulses normal. Normal S1 and S2 Respiratory: No respiratory distress. Breath sounds normal. No Wheezing. No rales Abdomen: Soft and nontender. No rigidity. No distention. Skin: Skin warm and dry. Normal skin color. Normal skin turgor. Extremities: No lower extremity edema. No Lacerations. No Rash Neuro: Oriented X 3. No motor deficit. No sensory deficit. Moving all extremities. No slurred speech. CN 2 through 12 grossly intact Psych: calm, cooperative, teary Course Course Course Narrative: -all of patient's labs, EKG and orthostatic vitals pending Medications Administered Discontinued Medications Generic Name Dose Route Start Last Admin Trade Name Freq PRN Reason Stop Dose Admin Sodium Chloride 1,000 mls @ 999 mls/hr 01/21/23 14:30 01/21/23 17:13 Ns IVCONT 01/21/23 15:30 Infused .Q1H1M JM Infusion Medical Decision Making Medical Decision Making [facility] Narrative: -my interpretation of labs, a blood cell count within normal limits. Patient came in complaining of abdominal pain, patient does have a UTI. Last time that she was here, the urine grew Klebsiella. This time, given the patient is symptomatic, we will go ahead and treat, patient is susceptible to ertapenem and gentamicin -my interpretation of CT scan of the abdomen: No SBO, no obvious abnormality. Bladder is distended. Patient was able to void. -patient's orthostatic vitals are positive, patient's blood pressure dropped from the 180s to 114 with standing. Patient receiving more fluids. -patient was initially hypoglycemic, patient was awake and alert, patient was given p.o. fluids and solids, blood glucose improved. Differential Diagnosis Differential Diagnoses: The differential diagnosis associated with the presentation includes (UTI, SBO, colitis) Admission/Observation Consideration of admission/observation: Escalation of care including admission/observation considered Consult Healthcare Provider Management of the patient was discussed with: Hospitalist Lab Data MDM Lab Attestation statement: I reviewed the patient's lab results. 01/21/23 14:44 01/21/23 14:44 Labs: Lab Results 01/21/23 01/21/23 01/21/23 Range/Units 14:44 16:35 16:58 WBC 8.3 (4.8-10.8) X10*3/uL RBC 3.90 L (4.20-5.50) X10*6/uL Hgb 11.3 L (12.0-16.0) g/dl Hct 33.5 L (37.0-47.0) % MCV 85.9 (80.0-98.0) fL MCH 29.0 (27.0-33.0) pg MCHC 33.7 (31.0-35.0) g/dl RDW 12.6 (11.0-16.0) % Plt Count 190 (160-400) X10*3/uL MPV 8.3 L (9.4-12.3) fL Immature Gran % (Auto) 0.2 (0.0-0.4) % Neut % (Auto) 50.5 (45-73) % Lymph % (Auto) 40.9 H (20-40) % [place] % (Auto) 6.4 (2-11) % Eos % (Auto) 1.6 (0-4) % Baso % (Auto) 0.4 (0-2) % Lymph # (Auto) 3.4 (1.2-4.9) X10*3/uL [place] # (Auto) 0.5 (0.1-1.2) X10*3/uL Eos # (Auto) 0.1 (0.0-0.4) X10*3/uL Baso # (Auto) 0.0 (0.0-0.2) X10*3/uL Abs Immat Gran (auto) 0.02 (0.00-0.03) X10*3/uL Absolute Neuts (auto) 4.2 (2.0-8.3) x10*3/uL Absolute Nucleated RBC 0.000 (0.0-0.012) X10*3/uL Nucleated RBC % (auto) 0.0 (0.0-0.2) /100WBC Sodium 139 (135-145) mmol/L Potassium 3.8 (3.3-5.1) mmol/L Chloride 105 (96-108) mmol/L Carbon Dioxide 28 (22-29) mmol/L Anion Gap 10 L (12-20) BUN 21 H (9-16) mg/dL Creatinine 0.90 (0.5-1.4) mg/dL Estim Creat Clear Calc 77.9 Estimated GFR > 60 POC Glucose 137 H (60-115) mg/dL Random Glucose 53 L* (60-115) mg/dL Lactic Acid 2.7 H* (0.5-2.0) mmol/L Lactic Acid F/U @ 2Hr (0.5-2.0) mmol/L Calcium 10.4 H D (8.4-10.2) mg/dL Magnesium 2.0 (1.6-2.6) mg/dL Total Bilirubin 0.3 (0.0-1.0) mg/dL Direct Bilirubin 0.1 (0.0-0.5) mg/dL AST 19 (5-31) U/L ALT 20 (0-31) U/L Alkaline Phosphatase 69 (39-117) U/L Troponin I High Sens 4.0 (<3.5-17.0) ng/L Total Protein 7.6 (6.5-8.0) g/dL Albumin 3.6 (3.5-5.0) g/dL Lipase 33 (8-78) U/L Urine Color Urine Appearance Urine pH (5.0-9.0) Ur Specific [place] (1.005-1.025) Urine Protein (Neg-Trace) mg/dL Urine Glucose (UA) (Negative) mg/dL Urine Ketones (Negative) mg/dL Urine Blood (Negative) Urine Nitrite (Negative) Ur Leukocyte Esterase (Negative) Urine RBC (0-2) /HPF Urine WBC (0-5) /HPF Ur Squamous Epith Cells (0-2) /HPF Urine Bacteria (None Seen) Hyaline Casts (0-2) /LPF Urine Opiates Screen (Not Detect) Urine Fentanyl Screen (Not Detect) Ur Barbiturates Screen (Not Detect) Ur Phencyclidine Scrn (Not Detect) Ur Amphetamines Screen (Not Detect) U Benzodiazepines Scrn (Not Detect) Urine Cocaine Screen (Not Detect) U Marijuana (THC) Screen (Not Detect) Ethyl Alcohol < 10 mg/dL Blood Type A Positive Antibody Screen NEGATIVE 01/21/23 01/21/23 Range/Units 18:38 18:52 WBC (4.8-10.8) X10*3/uL RBC (4.20-5.50) X10*6/uL Hgb (12.0-16.0) g/dl Hct (37.0-47.0) % MCV (80.0-98.0) fL MCH (27.0-33.0) pg MCHC (31.0-35.0) g/dl RDW (11.0-16.0) % Plt Count (160-400) X10*3/uL MPV (9.4-12.3) fL Immature Gran % (Auto) (0.0-0.4) % Neut % (Auto) (45-73) % Lymph % (Auto) (20-40) % [place] % (Auto) (2-11) % Eos % (Auto) (0-4) % Baso % (Auto) (0-2) % Lymph # (Auto) (1.2-4.9) X10*3/uL [place] # (Auto) (0.1-1.2) X10*3/uL Eos # (Auto) (0.0-0.4) X10*3/uL Baso # (Auto) (0.0-0.2) X10*3/uL Abs Immat Gran (auto) (0.00-0.03) X10*3/uL Absolute Neuts (auto) (2.0-8.3) x10*3/uL Absolute Nucleated RBC (0.0-0.012) X10*3/uL Nucleated RBC % (auto) (0.0-0.2) /100WBC Sodium (135-145) mmol/L Potassium (3.3-5.1) mmol/L Chloride (96-108) mmol/L Carbon Dioxide (22-29) mmol/L Anion Gap (12-20) BUN (9-16) mg/dL Creatinine (0.5-1.4) mg/dL Estim Creat Clear Calc Estimated GFR POC Glucose (60-115) mg/dL Random Glucose (60-115) mg/dL Lactic Acid (0.5-2.0) mmol/L Lactic Acid F/U @ 2Hr 1.2 (0.5-2.0) mmol/L Calcium (8.4-10.2) mg/dL Magnesium (1.6-2.6) mg/dL Total Bilirubin (0.0-1.0) mg/dL Direct Bilirubin (0.0-0.5) mg/dL AST (5-31) U/L ALT (0-31) U/L Alkaline Phosphatase (39-117) U/L Troponin I High Sens (<3.5-17.0) ng/L Total Protein (6.5-8.0) g/dL Albumin (3.5-5.0) g/dL Lipase (8-78) U/L Urine Color Yellow Urine Appearance Cloudy Urine pH 5.5 (5.0-9.0) Ur Specific [place] <= 1.005 (1.005-1.025) Urine Protein 100 (2+) H (Neg-Trace) mg/dL Urine Glucose (UA) Negative (Negative) mg/dL Urine Ketones Negative (Negative) mg/dL Urine Blood Trace H (Negative) Urine Nitrite Negative (Negative) Ur Leukocyte Esterase Large (3+) H (Negative) Urine RBC 0-2 (0-2) /HPF Urine WBC >50 H (0-5) /HPF Ur Squamous Epith Cells 0-2 (0-2) /HPF Urine Bacteria 4+ (None Seen) Hyaline Casts 0-2 (0-2) /LPF Urine Opiates Screen Not Detected (Not Detect) Urine Fentanyl Screen Not Detected (Not Detect) Ur Barbiturates Screen Not Detected (Not Detect) Ur Phencyclidine Scrn Not Detected (Not Detect) Ur Amphetamines Screen Not Detected (Not Detect) U Benzodiazepines Scrn Not Detected (Not Detect) Urine Cocaine Screen Not Detected (Not Detect) U Marijuana (THC) Screen Not Detected (Not Detect) Ethyl Alcohol mg/dL Blood Type Antibody Screen Independent Interpretation I performed an independent interpretation of an: CT Scan Radiology Impression Discussion of test interpretation with radiology: I have reviewed the radiologist's reading. Radiologist Impression: FINDINGS: LUNG BASES: The lung bases are clear. The heart size is normal. LIVER, GALLBLADDER, AND BILIARY TREE: The liver is normal in size, shape, and attenuation. There is a punctate 3 mm nonspecific calcification right hepatic lobe No focal hepatic lesion or biliary ductal dilatation is present. The gallbladder has been surgically removed. PANCREAS: Unremarkable. SPLEEN: Unremarkable. ADRENAL GLANDS: Unremarkable. KIDNEYS AND URETERS: The kidneys are normal in size, shape, and attenuation. No hydronephrosis, hydroureter, or calculi seen. No perinephric stranding. BLADDER: The bladder is significantly distended extending to the umbilicus this results in mild prominence of the right ureter. GASTROINTESTINAL TRACT: There is a large amount of stool in the colon without significant distention. There is nonspecific mild mural thickening of right colon without pericolic stranding. Likely normal appendix. No inflammatory process seen in the abdomen or pelvis. No free air or free fluid. The small bowel loops are not dilated. The stomach is distended with recently ingested food. ABDOMINAL WALL: No significant hernia is appreciated. LYMPH NODES: No abnormal neck lymph nodes seen. VASCULAR: Unremarkable. PELVIC VISCERA: Unremarkable. OSSEOUS STRUCTURES: No aggressive lytic or sclerotic process seen. Mild superior endplate deformity L1 superior endplate likely chronic CT/CT abdomen pelvis wo IV con IMPRESSION: 1. Significantly distended urinary bladder extending to the level of the umbilicus with mild prominence of the right ureter. 2. Moderate constipation without obstruction. Likely normal appendix. 3. No radiopaque urolith or hydroureteronephrosis. 4. Nonspecific mild mural thickening ascending colon and splenic flexure question low-grade colitis no pericolic fat stranding. Fleischner guidelines were followed. Critical Care Time Critical Care Time Critical Care Time: Yes Total Critical Care Time: 75 Attestation: I have personally provided critical care time. Time includes review of lab data, radiology results, discussion with consultants, and monitoring for potential decompensation. Intervention performed as documented. Discharge Plan Discharge Clinical Impression: Orthostatic hypotension, Urinary tract infection due to ESBL Klebsiella, Hypoglycemia Patient Disposition: Admitted As Inpatient
[2023-01-21 14:50] LABS: MANUAL DIFF FLAG NO
[2023-01-21 14:53] LABS: Basophils Percent Auto 0.4 % (0-2); Eosinophils Absolute Auto 0.1 X10*3/uL (0.0-0.4); Eosinophils Percent Auto 1.6 % (0-4); Hematocrit 33.5 % (37.0-47.0); Hemoglobin 11.3 g/dl (12.0-16.0); Imm Gran Abs Auto 0.02 X10*3/uL (0.00-0.03); Imm Gran Pct Auto 0.2 % (0.0-0.4); Lymphocytes Absolute Auto 3.4 X10*3/uL (1.2-4.9); Lymphocytes Percent Auto 40.9 % (20-40); Mean Corpuscular HGB Conc 33.7 g/dl (31.0-35.0); Mean Corpuscular Volume 85.9 fL (80.0-98.0); Mean Platelet Volume 8.3 fL (9.4-12.3); Monocytes Absolute Auto 0.5 X10*3/uL (0.1-1.2); Monocytes Percent Auto 6.4 % (2-11); Neutrophils Absolute Auto 4.2 x10*3/uL (2.0-8.3); Neutrophils Percent Auto 50.5 % (45-73); Platelet Count 190 X10*3/uL (160-400); Red Cell Distribution Width 12.6 % (11.0-16.0); White Blood Count 8.3 X10*3/uL (4.8-10.8)
[2023-01-21] MEDS: 0.9 % Sodium Chloride 1,000 ML 999 ML IVCONT (14:56)
[2023-01-21 15:08] LABS: Lactic Acid 2.7 mmol/L (0.5-2.0)
[2023-01-21 15:17] LABS: Alanine Aminotransferase 20 U/L (0-31); Albumin Level 3.6 g/dL (3.5-5.0); Alkaline Phosphatase 69 U/L (39-117); Anion Gap 10 (12-20); Aspartate Amino Transferase 19 U/L (5-31); Bilirubin Direct 0.1 mg/dL (0.0-0.5); Bilirubin Total 0.3 mg/dL (0.0-1.0); Blood Urea Nitrogen 21 mg/dL (9-16); Calcium 10.4 mg/dL (8.4-10.2); Carbon Dioxide 28 mmol/L (22-29); Chloride 105 mmol/L (96-108); Creatinine Clr Calc Pharmacy 77.9; Estimated Glomerular Filt Rate > 60; Glucose Random 53 mg/dL (60-115); Lipase 33 U/L (8-78); Potassium 3.8 mmol/L (3.3-5.1); Sodium 139 mmol/L (135-145); Total Protein 7.6 g/dL (6.5-8.0)
[2023-01-21 16:00] VITALS: BP 186/81; PULSE 97; RESP 16; O2SAT 97
[2023-01-21 16:39] LABS: Glucose, Whole Blood 137 mg/dL (60-115)
[2023-01-21 16:49] LABS: Reflex Lactate? Lactic Acid Added
[2023-01-21 17:33] LABS: Ethanol < 10 mg/dL
[2023-01-21 19:02] LABS: Appearance Urine Cloudy; Color Urine Yellow; Glucose Urine UA Negative (Negative); Leukocyte Esterase Urine Large (3+) (Negative); Nitrite Urine Negative (Negative); PH 5.5 (5.0-9.0); Specific Gravity - Urine <= 1.005 (1.005-1.025); UMIC TRIGGER UACC YES; Urine Blood Trace (Negative); Urine Ketones Negative (Negative); Urine Protein 100 (2+) mg/dL (Neg-Trace)
[2023-01-21 19:04] LABS: ~Lactic Acid-LAB USE ONLY 1.2 mmol/L (0.5-2.0)
[2023-01-21 19:07] LABS: Amphetamine Screen Urine Not Detected (Not Detect); Barbiturates, Urine Not Detected (Not Detect); Benzodiazepines Screen Urine Not Detected (Not Detect); Cannabinoid Screen Urine Not Detected (Not Detect); Cocaine Screen Urine Not Detected (Not Detect); Fentanyl, urine Not Detected (Not Detect); Opiate Screen Urine Not Detected (Not Detect); Phencyclidine Screen Urine Not Detected (Not Detect)
[2023-01-21 19:11] LABS: Bacteria Urine 4+ (None Seen); Hyaline Casts Urine 0-2 /LPF (0-2); RBC Urine 0-2 /HPF (0-2); Squamous Epithelial Cell Urine 0-2 /HPF (0-2); UACC Culture Trigger YES; WBC Urine >50 /HPF (0-5)
--- NOTE | 2023-01-21 19:16 | PC.NURSE ---
late entry: pt persian speaking only. currently resting quietly on stretcher in no apparent distress. rr even/unlabored. labs drawn by eldon gallo. urine collected. report given to JG Jean.
[2023-01-21 20:26] VITALS: BP 188/87; PULSE 96
[2023-01-21 20:27] VITALS: BP 114/62; BP 185/89; PULSE 94; PULSE 98
--- NOTE | 2023-01-21 20:33 | P.HPHOSP_ITS ---
History of Present Illness Date of Service: 01/21/23 Chief Complaint: Abdominal Pain This is a 52-year-old female with pertinent history of mood disorder, insulin- dependent diabetes mellitus, mixed hyperlipidemia, history of ESBL Klebsiella in the urine, essential hypertension who presents to the emergency department for evaluation of dizziness and abdominal pain. Patient states the symptoms started 3 days prior to presentation. She has been having abdominal discomfort, worse when she micturates. It is generalized, nonradiating and progressive. No dysuria, urgency but has hesitancy. Patient also states she has been having dizziness and lightheadedness when she tries to get up. Admits adequate p.o. intake. Admits chills but no fever, chest discomfort, palpitations, shortness of breath, changes in bowel habits. Patient's blood pressure was found to be low upon arrival. In the emergency department, patient was found to be hypoglycemic and urine concerning for UTI. Orthostatic vital signs noted to be positive Review of Systems 2 Constitutional: Constitutional: Reports chills and Reports fatigue ENT: Reports dizziness Cardiovascular: Cardiovascular: Reports no additional cardiovascular complaints Respiratory: Respiratory: Reports no additional respiratory complaints Gastrointestinal: Gastrointestinal: Reports abdominal pain Genitourinary: Genitourinary: Reports difficulty voiding Neurologic: Reports dizziness Endocrine: Endocrine: Reports fatigue [facility] Medical History Symptomatic anemia Hypertension Brain lesion Iron deficiency anemia HLD (hyperlipidemia) Anemia Depression Type 2 diabetes mellitus Family History Other Hypertension Social History Household Members: Children and None Household Members Other:: Daughter Housing: Apartment Do you presently have visiting nurse or other home services: Yes ([facility]) Unable to assess alcohol history related to: Unable to respond Alcohol intake: never Patient Tobacco Use Status: Never used Tobacco e-Cigarette/Vaping Use: Never Used Second Hand Smoke Exposure: No Advance Directives: Yes Advance Directives on File: Yes Advance Directives Date on File: 06/19/21 service: No Current occupational status: unemployed Meds Allergies Allergy/AdvReac Type Severity Reaction Status Date / Time shrimp Allergy Swelling Verified 01/21/23 14:21 Active Medications: Current Medications Acetaminophen (Acetaminophen 325 Mg Tablet) 650 mg PO Q6H PRN PRN Reason: Pain, Mild (Pain Scale 1-3) Dextrose (Dextrose 50 % 25 Gm/50 Ml Syringe) 25 gm IVPUSH Q15M PRN; Protocol PRN Reason: per Hypoglycemia Standing Ord. Enoxaparin Sodium (Enoxaparin Sodium 40 Mg/0.4 Ml Syringe) 40 mg SUBCUT Q24H [facility] Glucose (Glucose Gel 15 Gm Gel..Gram.) 15 gm PO Q15M PRN; Protocol PRN Reason: per Hypoglycemia Standing Ord. Sodium Chloride (Ns) 2,000 mls @ 999 mls/hr IVCONT .Q2H1M ONE Stop: 01/21/23 22:25 Ertapenem 1 gm/ Sodium (Chloride) 50 mls @ 100 mls/hr IV ONCE ONE Stop: 01/21/23 20:57 Insulin Human Lispro (Insulin Lispro 100 Unit/Ml 3 Ml Vial) 0 unit SUBCUT QIDACHS [facility]; Protocol Melatonin (Melatonin 3 Mg Tablet) 6 mg PO BEDTIME PRN PRN Reason: Insomnia Ondansetron HCl (Ondansetron Hcl 4 Mg/2 Ml Vial) 4 mg IVPUSH Q8H PRN PRN Reason: Nausea and Vomiting Sodium Chloride (0.9 % Sodium Chloride Flush 3 Ml Syringe) 3 ml IVFLUSH QSHIFT [facility] Home Medications Medication Instructions Recorded Confirmed Last Taken Type aspirin 81 mg tablet,delayed 1 tab PO DAILY 07/21/22 12/27/22 10/17/22 History release insulin glargine 100 unit/mL (3 18 unit subcut BEDTIME 07/21/22 12/27/22 10/17/22 History mL) subcutaneous pen (Lantus Solostar U-100 Insulin) insulin lispro 100 unit/mL See Protocol subcut TIDAC 07/21/22 12/27/22 10/17/22 History subcutaneous pen pioglitazone 30 mg tablet 1 tab PO DAILY 07/21/22 12/27/22 10/17/22 History gabapentin 300 mg capsule 300 mg PO TID 12/17/22 12/27/22 Unknown History lisinopril 10 mg tablet 10 mg PO QAM 12/17/22 12/27/22 Unknown History polyethylene glycol 3350 17 17 g PO DAILY 12/17/22 12/27/22 Unknown History gram/dose oral powder (Gavilax) rosuvastatin 40 mg tablet 40 mg PO QAM 12/17/22 12/27/22 Unknown History sennosides 8.6 mg-docusate sodium 1 tab PO QAM 12/17/22 12/27/22 Unknown History 50 mg tablet (Stimulant Laxative Plus) Physical Exam 2 Vital Signs and Narrative: Vital Signs: Last Vital Signs Temp 97.2 F 01/21/23 14:16 Pulse 98 01/21/23 20:27 Resp 16 01/21/23 16:00 BP 114/62 01/21/23 20:27 Pulse Ox 97 01/21/23 16:00 O2 Del Method Room Air 01/21/23 16:00 BMI result Body Mass Index 29.0 Middle-aged female lying in bed in no distress Neck supple, no JVD Regular rate and rhythm, S1-S2 heard Regular breath sounds bilaterally, no wheezing or crackles appreciated Abdomen with mild tenderness in the suprapubic region, no guarding, no rigidity, no rebound tenderness Patient is awake, alert and oriented to self, place, time and person ; no focal motor deficit Psych: Normal mood No pedal edema Results Labs 01/21/23 14:44 01/21/23 14:44 Labs: Laboratory Results - last 24 hr 01/21/23 01/21/23 01/21/23 14:44 16:35 16:58 MCV 85.9 MCH 29.0 MCHC 33.7 RDW 12.6 Plt Count 190 MPV 8.3 L Immature Gran % (Auto) 0.2 Neut % (Auto) 50.5 Lymph % (Auto) 40.9 H [place] % (Auto) 6.4 Eos % (Auto) 1.6 Baso % (Auto) 0.4 Lymph # (Auto) 3.4 [place] # (Auto) 0.5 Eos # (Auto) 0.1 Baso # (Auto) 0.0 Abs Immat Gran (auto) 0.02 Absolute Neuts (auto) 4.2 Absolute Nucleated RBC 0.000 Nucleated RBC % (auto) 0.0 Anion Gap 10 L Estim Creat Clear Calc 77.9 Estimated GFR > 60 POC Glucose 137 H Random Glucose 53 L* Lactic Acid 2.7 H* Lactic Acid F/U @ 2Hr Calcium 10.4 H D Magnesium 2.0 Total Bilirubin 0.3 Direct Bilirubin 0.1 AST 19 ALT 20 Alkaline Phosphatase 69 Total Protein 7.6 Albumin 3.6 Lipase 33 Urine Color Urine Appearance Urine pH Ur Specific [place] Urine Protein Urine Glucose (UA) Urine Ketones Urine Blood Urine Nitrite Ur Leukocyte Esterase Urine RBC Urine WBC Ur Squamous Epith Cells Urine Bacteria Hyaline Casts Urine Opiates Screen Urine Fentanyl Screen Ur Barbiturates Screen Ur Phencyclidine Scrn Ur Amphetamines Screen U Benzodiazepines Scrn Urine Cocaine Screen U Marijuana (THC) Screen Ethyl Alcohol < 10 Blood Type A Positive Antibody Screen NEGATIVE 01/21/23 01/21/23 18:38 18:52 MCV MCH MCHC RDW Plt Count MPV Immature Gran % (Auto) Neut % (Auto) Lymph % (Auto) [place] % (Auto) Eos % (Auto) Baso % (Auto) Lymph # (Auto) [place] # (Auto) Eos # (Auto) Baso # (Auto) Abs Immat Gran (auto) Absolute Neuts (auto) Absolute Nucleated RBC Nucleated RBC % (auto) Anion Gap Estim Creat Clear Calc Estimated GFR POC Glucose Random Glucose Lactic Acid Lactic Acid F/U @ 2Hr 1.2 Calcium Magnesium Total Bilirubin Direct Bilirubin AST ALT Alkaline Phosphatase Total Protein Albumin Lipase Urine Color Yellow Urine Appearance Cloudy Urine pH 5.5 Ur Specific [place] <= 1.005 Urine Protein 100 (2+) H Urine Glucose (UA) Negative Urine Ketones Negative Urine Blood Trace H Urine Nitrite Negative Ur Leukocyte Esterase Large (3+) H Urine RBC 0-2 Urine WBC >50 H Ur Squamous Epith Cells 0-2 Urine Bacteria 4+ Hyaline Casts 0-2 Urine Opiates Screen Not Detected Urine Fentanyl Screen Not Detected Ur Barbiturates Screen Not Detected Ur Phencyclidine Scrn Not Detected Ur Amphetamines Screen Not Detected U Benzodiazepines Scrn Not Detected Urine Cocaine Screen Not Detected U Marijuana (THC) Screen Not Detected Ethyl Alcohol Blood Type Antibody Screen Imaging Radiologist's Impressions: Impressions Abdomen/Pelvis CT 01/21/23 17:32 IMPRESSION: 1. Significantly distended urinary bladder extending to the level of the umbilicus with mild prominence of the right ureter. 2. Moderate constipation without obstruction. Likely normal appendix. 3. No radiopaque urolith or hydroureteronephrosis. 4. Nonspecific mild mural thickening ascending colon and splenic flexure question low-grade colitis no pericolic fat stranding. Fleischner guidelines were followed. Assessment and Plan (1) Urinary tract infection due to ESBL Klebsiella: Status: Acute (2) Orthostatic hypotension: Status: Acute Plan This is a 52-year-old female with pertinent history of mood disorder, insulin- dependent diabetes mellitus, mixed hyperlipidemia, history of ESBL Klebsiella in the urine, essential hypertension who presents to the emergency department for evaluation of dizziness and abdominal pain. #. Acute UTI. Patient has a history of ESBL Klebsiella. Will initiate IV meropenem. Infectious Disease consulted, appreciate assistance. No sepsis. Urine culture pending #. Presyncope due to orthostatic hypotension likely in the setting of above. Resuscitated with IV crystalloids. Repeat orthostatics in a.m. #. Hypoglycemia due to infection. Continue to monitor with Accu-Cheks and IV p.r.n. dextrose #. Insulin-dependent diabetes mellitus. Hold basal regimen in the setting of above. #. Acute lactic acidosis due to dehydration. Resolved with IV crystalloids #. Mood disorder. Continue home mood stabilizers Med rec pending DVT prophylaxis: Lovenox Full code Admit as inpatient and will require two night minimum hospital stay for IV antibiotics Time Spent With Patient Time: Total time managing care of this patient today ____ minutes. Quality Stroke Does the patient have a stroke diagnosis?: No VTE Prior VTE?: No VTE Risk Level:: Medical - moderate - high VTE Device Contraindication: Treatment Not Indicated VTE Drug Contraindication: N/A - Med Ordered
[2023-01-21] MEDS: 0.9 % Sodium Chloride 2,000 ML 999 ML IVCONT (20:51)
[2023-01-21] MEDS: Ertapenem Sodium 1 GM in 0.9 % Sodium Chloride 50 ML IV (20:57)
[2023-01-21] MEDS: Acetaminophen 325 MG TABLET 650 MG PO (21:20)
[2023-01-21] MEDS: Morphine Sulfate 2 MG/ML CARTRIDGE IVPUSH (23:08)
[2023-01-21] MEDS: Gabapentin 300 MG CAPSULE PO (23:08)
[2023-01-21 23:43] LABS: Glucose, Whole Blood 183 mg/dL (60-115)
[2023-01-21] MEDS: Enoxaparin Sodium 40 MG/0.4 ML SYRINGE SUBCUT (23:44)
[2023-01-22] VITALS (8 sets, daily range): BP systolic 107–180; BP diastolic 53–85; PULSE 79–91; RESP 10–20; TEMP 36.1–36.7; O2SAT 96–99
[2023-01-22 01:06] LABS: Glucose, Whole Blood 163 mg/dL (60-115)
--- NOTE | 2023-01-22 01:23 | MHC.EDTECH ---
POC Done and results reported to RN
[2023-01-22 03:44] LABS: Glucose, Whole Blood 90 mg/dL (60-115)
[2023-01-22] MEDS: 0.9 % Sodium Chloride Flush 3 ML SYRINGE IVFLUSH ×2 (03:55→15:24)
--- NOTE | 2023-01-22 03:55 | MHC.EDTECH ---
Pt complained of her sugar being low. This tech repeated her POC, reading was at 90 Results were relayed to RN. Pt given a turkey sandwich and 2 orange juices
[2023-01-22 06:16] LABS: Alanine Aminotransferase 16 U/L (0-31); Albumin Level 2.8 g/dL (3.5-5.0); Alkaline Phosphatase 50 U/L (39-117); Anion Gap 10 (12-20); Aspartate Amino Transferase 17 U/L (5-31); Bilirubin Total 0.3 mg/dL (0.0-1.0); Blood Urea Nitrogen 16 mg/dL (9-16); Calcium 8.5 mg/dL (8.4-10.2); Carbon Dioxide 28 mmol/L (22-29); Chloride 110 mmol/L (96-108); Creatinine Clr Calc Pharmacy 98.7; Estimated Glomerular Filt Rate > 60; Glucose Random 144 mg/dL (60-115); Potassium 4.1 mmol/L (3.3-5.1); Sodium 144 mmol/L (135-145); Total Protein 5.7 g/dL (6.5-8.0)
[2023-01-22 07:28] LABS: Glucose, Whole Blood 157 mg/dL (60-115)
--- NOTE | 2023-01-22 07:39 | PHA.MEDREC ---
Pharmacy Consult ? Medication Reconciliation Pharmacy has completed the medication reconciliation.
[2023-01-22] MEDS: Insulin Lispro 100 UNIT/ML 3 ML VIAL SUBCUT ×4 (07:51→17:57)
--- NOTE | 2023-01-22 08:19 | PC.NURSE ---
Addendum entered by Phi Matthews 01/22/23 08:24: pt able to urinate this am with no difficulties/pain. Original Note: axox4; sinhala speaking only - director of surgery to bedside. pt reports aware of plan of care; denies questions at this time. poc 157; insulin administered per sliding scale. pt eating breakfast at this time. vss. nsr on monitor 76 bpm. pt reporting 9/10 bilat leg pain. strength equal BLE. pt cleaned up; new linen/clothes. pt able to move to chair with stand/pivot. awaiting bed assignment. call sampson within reach.
[2023-01-22] MEDS: Gabapentin 300 MG CAPSULE PO ×3 (09:09→21:41)
[2023-01-22] MEDS: polyethylene glycoL 3350 17 GM POWD.PACK PO (09:09)
[2023-01-22] MEDS: Aspirin Enteric Coated 81 MG TABLET.DR PO (09:09)
[2023-01-22] MEDS: Atorvastatin Calcium 80 MG TABLET PO (09:10)
[2023-01-22] MEDS: lisinopriL 10 MG TABLET PO (09:10)
[2023-01-22] MEDS: Sennosides/Docusate Sodium TABLET 1 TAB PO (09:10)
[2023-01-22] MEDS: amLODIPine Besylate 5 MG TABLET PO (09:10)
--- NOTE | 2023-01-22 09:31 | MHC.CM.PN ---
PATIENT ASLEEP ON STRETCHER AND DOES NOT ROUSE TO THIS SMALL KICK PRESS OPERATOR'S ATTEMPTS TO ASSESS PER PREVIOUS VISIT, PATIENT IS ACTIVE WITH [facility]. REFERRAL PLACED AND CONFIRMATION OF SERVICE RECEIVED. HCP ON FILE AND VERIFIED. DC PLAN IS HOME WITH [facility]UMPT[facility].
[2023-01-22] MEDS: Morphine Sulfate 2 MG/ML CARTRIDGE IVPUSH (11:30)
[2023-01-22 12:25] LABS: Glucose, Whole Blood 244 mg/dL (60-115)
--- NOTE | 2023-01-22 12:58 | PC.NURSE ---
ATTEMPTED TO CALL REPORT TO IM, NO ANSWER, REQUESTED RETURN CALL.
--- NOTE | 2023-01-22 13:22 | PC.NURSE ---
Rn-Rn report called in to C.
--- NOTE | 2023-01-22 15:48 | P.PNIM_ITS ---
Subjective Subjective Date of Service: 01/22/23 Interval History: No acute issues overnight Review of Systems Denies chest pain Denies shortness of breath Denies nausea vomiting diarrhea Denies fever chills Physical Exam 2 Vital Signs: Vital Signs: Last Vital Signs Temp 96.9 F 01/22/23 15:03 Pulse 86 01/22/23 15:03 Resp 20 01/22/23 15:03 BP 124/58 L 01/22/23 15:03 Pulse Ox 99 01/22/23 15:03 O2 Del Method Room Air 01/22/23 15:03 BMI result Body Mass Index 29.0 Const: Other: Awake alert no acute distress Resp: Other: Clear to auscultation bilaterally no rales rhonchi or wheezes Cardio: Other: No S4; positive S1-S2; no S3 murmurs rubs gallops GI: Other: Soft nontender nondistended normoactive bowel sounds Extrem: Other: No edema bilaterally Objective Data Active Medications Acetaminophen (Acetaminophen 325 Mg Tablet) 650 mg PO Q6H PRN PRN Reason: Pain, Mild (Pain Scale 1-3) Last Admin: 01/21/23 21:20 Dose: 650 mg Documented By: DARLENE Amlodipine Besylate (Amlodipine Besylate 5 Mg Tablet) 5 mg PO DAILY [facility]; Protocol Last Admin: 01/22/23 09:10 Dose: 5 mg Documented By: AAMIR Aspirin (Aspirin Enteric Coated 81 Mg Tablet.) 81 mg PO DAILY [facility] Last Admin: 01/22/23 09:09 Dose: 81 mg Documented By: AAMIR Atorvastatin Calcium (Atorvastatin Calcium 80 Mg Tablet) 80 mg PO DAILY [facility] Last Admin: 01/22/23 09:10 Dose: 80 mg Documented By: AAMIR Dextrose (Dextrose 50 % 25 Gm/50 Ml Syringe) 25 gm IVPUSH Q15M PRN; Protocol PRN Reason: per Hypoglycemia Standing Ord. Enoxaparin Sodium (Enoxaparin Sodium 40 Mg/0.4 Ml Syringe) 40 mg SUBCUT Q24H [facility] Last Admin: 01/21/23 23:44 Dose: 40 mg Documented By: DARLENE Gabapentin (Gabapentin 300 Mg Capsule) 300 mg PO TID [facility] Last Admin: 01/22/23 15:23 Dose: 300 mg Documented By: JHONNY Glucose (Glucose Gel 15 Gm Gel..Gram.) 15 gm PO Q15M PRN; Protocol PRN Reason: per Hypoglycemia Standing Ord. Meropenem 1 gm/ Sodium (Chloride) 100 mls @ 200 mls/hr IV Q8H [facility] Last Admin: 01/22/23 15:24 Dose: 200 mls/hr Documented By: JHONNY Insulin Human Lispro (Insulin Lispro 100 Unit/Ml 3 Ml Vial) 0 unit SUBCUT QIDACHS [facility]; Protocol Last Admin: 01/22/23 12:39 Dose: 4 unit Documented By: CAROL Lisinopril (Lisinopril 10 Mg Tablet) 10 mg PO DAILY [facility]; Protocol Last Admin: 01/22/23 09:10 Dose: 10 mg Documented By: AAMIR Melatonin (Melatonin 3 Mg Tablet) 6 mg PO BEDTIME PRN PRN Reason: Insomnia Morphine Sulfate (Morphine Sulfate 2 Mg/Ml Cartridge) 2 mg IVPUSH Q4H PRN; Protocol PRN Reason: Pain, Severe (Pain Scale 7-10) Last Admin: 01/22/23 11:30 Dose: 2 mg Documented By: AAMIR Ondansetron HCl (Ondansetron Hcl 4 Mg/2 Ml Vial) 4 mg IVPUSH Q8H PRN PRN Reason: Nausea and Vomiting Polyethylene Glycol (Polyethylene Glycol 3350 17 Gm Powd.Pack) 17 gm PO DAILY [facility] Last Admin: 01/22/23 09:09 Dose: 17 gm Documented By: AAMIR Senna/Docusate Sodium (Sennosides/Docusate Sodium Tablet) 1 tab PO DAILY [facility] Last Admin: 01/22/23 09:10 Dose: 1 tab Documented By: AAMIR Sodium Chloride (0.9 % Sodium Chloride Flush 3 Ml Syringe) 3 ml IVFLUSH QSHIFT [facility] Last Admin: 01/22/23 15:24 Dose: 3 ml Documented By: JHONNY Labs 01/21/23 14:44 01/22/23 05:47 Labs: Laboratory Results - last 24 hr 01/21/23 01/21/23 01/21/23 16:35 16:58 18:38 Anion Gap Estim Creat Clear Calc Estimated GFR POC Glucose 137 H Random Glucose Lactic Acid F/U @ 2Hr 1.2 Calcium Total Bilirubin AST ALT Alkaline Phosphatase Total Protein Albumin Urine Color Urine Appearance Urine pH Ur Specific [place] Urine Protein Urine Glucose (UA) Urine Ketones Urine Blood Urine Nitrite Ur Leukocyte Esterase Urine RBC Urine WBC Ur Squamous Epith Cells Urine Bacteria Hyaline Casts Urine Opiates Screen Urine Fentanyl Screen Ur Barbiturates Screen Ur Phencyclidine Scrn Ur Amphetamines Screen U Benzodiazepines Scrn Urine Cocaine Screen U Marijuana (THC) Screen Ethyl Alcohol < 10 Blood Type A Positive Antibody Screen NEGATIVE 01/21/23 01/21/23 01/22/23 18:52 23:39 00:59 Anion Gap Estim Creat Clear Calc Estimated GFR POC Glucose 183 H 163 H Random Glucose Lactic Acid F/U @ 2Hr Calcium Total Bilirubin AST ALT Alkaline Phosphatase Total Protein Albumin Urine Color Yellow Urine Appearance Cloudy Urine pH 5.5 Ur Specific [place] <= 1.005 Urine Protein 100 (2+) H Urine Glucose (UA) Negative Urine Ketones Negative Urine Blood Trace H Urine Nitrite Negative Ur Leukocyte Esterase Large (3+) H Urine RBC 0-2 Urine WBC >50 H Ur Squamous Epith Cells 0-2 Urine Bacteria 4+ Hyaline Casts 0-2 Urine Opiates Screen Not Detected Urine Fentanyl Screen Not Detected Ur Barbiturates Screen Not Detected Ur Phencyclidine Scrn Not Detected Ur Amphetamines Screen Not Detected U Benzodiazepines Scrn Not Detected Urine Cocaine Screen Not Detected U Marijuana (THC) Screen Not Detected Ethyl Alcohol Blood Type Antibody Screen 01/22/23 01/22/23 01/22/23 03:39 05:47 07:25 Anion Gap 10 L Estim Creat Clear Calc 98.7 Estimated GFR > 60 POC Glucose 90 157 H Random Glucose 144 H Lactic Acid F/U @ 2Hr Calcium 8.5 D Total Bilirubin 0.3 AST 17 ALT 16 Alkaline Phosphatase 50 Total Protein 5.7 L Albumin 2.8 L Urine Color Urine Appearance Urine pH Ur Specific [place] Urine Protein Urine Glucose (UA) Urine Ketones Urine Blood Urine Nitrite Ur Leukocyte Esterase Urine RBC Urine WBC Ur Squamous Epith Cells Urine Bacteria Hyaline Casts Urine Opiates Screen Urine Fentanyl Screen Ur Barbiturates Screen Ur Phencyclidine Scrn Ur Amphetamines Screen U Benzodiazepines Scrn Urine Cocaine Screen U Marijuana (THC) Screen Ethyl Alcohol Blood Type Antibody Screen 01/22/23 12:18 Anion Gap Estim Creat Clear Calc Estimated GFR POC Glucose 244 H Random Glucose Lactic Acid F/U @ 2Hr Calcium Total Bilirubin AST ALT Alkaline Phosphatase Total Protein Albumin Urine Color Urine Appearance Urine pH Ur Specific [place] Urine Protein Urine Glucose (UA) Urine Ketones Urine Blood Urine Nitrite Ur Leukocyte Esterase Urine RBC Urine WBC Ur Squamous Epith Cells Urine Bacteria Hyaline Casts Urine Opiates Screen Urine Fentanyl Screen Ur Barbiturates Screen Ur Phencyclidine Scrn Ur Amphetamines Screen U Benzodiazepines Scrn Urine Cocaine Screen U Marijuana (THC) Screen Ethyl Alcohol Blood Type Antibody Screen Microbiology Microbiology Results: Microbiology 01/21/23 Unknown Urine Culture - Preliminary Urine clean catch - Urine tyler top Gram negative savi Assessment and Plan (1) Urinary tract infection due to ESBL Klebsiella: Status: Acute (2) Orthostatic hypotension: Status: Acute (3) Type 2 diabetes mellitus: Status: Acute Plan This is a 52-year-old female with pertinent history of mood disorder, insulin- dependent diabetes mellitus, mixed hyperlipidemia, history of ESBL Klebsiella in the urine, essential hypertension who presents to the emergency department for evaluation of dizziness and abdominal pain. 1.Acute UTI(Hx of ESBL Klebsiella) -Meropenem(2). -ID consult -await culture 2. Orthostatic hypotension -resolved -follow clinically 3.Insulin-dependent diabetes mellitus -no further hypoglycemia -continue home insulin regimen -lispro correctional scale -adjust as indicated Lovenox Full code Will require ongoing hospitalization for IV antibiotics pending urine culture Time Spent With Patient Time: Total time managing care of this patient today ____ minutes. Quality Stroke Does the patient have a stroke diagnosis?: No VTE Prior VTE?: No VTE Risk Level:: Medical - moderate - high VTE Device Contraindication: Treatment Not Indicated VTE Drug Contraindication: N/A - Med Ordered
[2023-01-22 16:05] LABS: Glucose, Whole Blood 189 mg/dL (60-115)
[2023-01-22 20:35] LABS: Glucose, Whole Blood 147 mg/dL (60-115)
[2023-01-22] MEDS: Enoxaparin Sodium 40 MG/0.4 ML SYRINGE SUBCUT (21:41)
[2023-01-23] VITALS: BP 135/63; PULSE 60; RESP 20; TEMP 36.2; O2SAT 91
[2023-01-23] MEDS: 0.9 % Sodium Chloride Flush 3 ML SYRINGE IVFLUSH ×3 (00:26→14:42)
[2023-01-23 04:00] VITALS: BP 165/70; PULSE 90; RESP 20; TEMP 36.5; O2SAT 98
[2023-01-23 07:13] VITALS: BP 184/86; PULSE 85; RESP 20; TEMP 36.3; O2SAT 97
[2023-01-23 07:29] LABS: Glucose, Whole Blood 175 mg/dL (60-115)
[2023-01-23 07:30] LABS: MANUAL DIFF FLAG NO
[2023-01-23 07:55] LABS: Basophils Percent Auto 0.3 % (0-2); Eosinophils Absolute Auto 0.2 X10*3/uL (0.0-0.4); Eosinophils Percent Auto 3.5 % (0-4); Hemoglobin 11.1 g/dl (12.0-16.0); Imm Gran Abs Auto 0.01 X10*3/uL (0.00-0.03); Imm Gran Pct Auto 0.2 % (0.0-0.4); Lymphocytes Absolute Auto 2.8 X10*3/uL (1.2-4.9); Lymphocytes Percent Auto 43.7 % (20-40); Mean Corpuscular HGB Conc 33.6 g/dl (31.0-35.0); Mean Corpuscular Hemoglobin 29.4 pg (27.0-33.0); Mean Corpuscular Volume 87.5 fL (80.0-98.0); Mean Platelet Volume 8.6 fL (9.4-12.3); Monocytes Absolute Auto 0.4 X10*3/uL (0.1-1.2); Monocytes Percent Auto 5.7 % (2-11); Neutrophils Absolute Auto 2.9 x10*3/uL (2.0-8.3); Neutrophils Percent Auto 46.6 % (45-73); Platelet Count 161 X10*3/uL (160-400); Red Blood Count 3.77 X10*6/uL (4.20-5.50); Red Cell Distribution Width 12.4 % (11.0-16.0); White Blood Count 6.3 X10*3/uL (4.8-10.8)
[2023-01-23 08:13] LABS: Alanine Aminotransferase 18 U/L (0-31); Albumin Level 3.1 g/dL (3.5-5.0); Alkaline Phosphatase 60 U/L (39-117); Anion Gap 11 (12-20); Aspartate Amino Transferase 17 U/L (5-31); Bilirubin Total 0.3 mg/dL (0.0-1.0); Blood Urea Nitrogen 15 mg/dL (9-16); Calcium 9.5 mg/dL (8.4-10.2); Carbon Dioxide 29 mmol/L (22-29); Chloride 105 mmol/L (96-108); Creatinine Clr Calc Pharmacy 97.3; Estimated Glomerular Filt Rate > 60; Glucose Fasting 200 mg/dL (60-99); Potassium 4.4 mmol/L (3.3-5.1); Sodium 141 mmol/L (135-145); Total Protein 6.5 g/dL (6.5-8.0)
[2023-01-23] MEDS: Gabapentin 300 MG CAPSULE PO ×3 (09:02→20:37)
[2023-01-23] MEDS: amLODIPine Besylate 5 MG TABLET PO (09:02)
[2023-01-23] MEDS: Sennosides/Docusate Sodium TABLET 1 TAB PO (09:02)
[2023-01-23] MEDS: Insulin Lispro 100 UNIT/ML 3 ML VIAL SUBCUT ×3 (09:02→20:37)
[2023-01-23] MEDS: lisinopriL 10 MG TABLET PO (09:03)
[2023-01-23] MEDS: Aspirin Enteric Coated 81 MG TABLET.DR PO (09:03)
[2023-01-23] MEDS: polyethylene glycoL 3350 17 GM POWD.PACK PO (09:03)
[2023-01-23 11:05] VITALS: BP 139/65; PULSE 93; RESP 20; TEMP 36.3; O2SAT 97
[2023-01-23 11:13] LABS: Glucose, Whole Blood 477 mg/dL (60-115)
--- NOTE | 2023-01-23 11:14 | MHC.CM.PN ---
EMR REVIEWED, ID AND BC'S PENDING, NO PLAN FOR D/C AT THIS TIME, CM WILL CONT TO FOLLOW D/C NEEDS.
[2023-01-23 15:14] VITALS: BP 157/70; PULSE 94; RESP 20; TEMP 36.7; O2SAT 99
--- NOTE | 2023-01-23 15:52 | P.PNIM_ITS ---
Subjective Subjective Date of Service: 01/23/23 Interval History: Episode of upper abdominal pain relieved with urination. Voided 1100 cc in commode with relief of pain. Bladder scan less than 100 postvoid Review of Systems Denies chest pain Denies shortness of breath Denies nausea vomiting diarrhea Denies fever chills Physical Exam 2 Vital Signs: Vital Signs: Last Vital Signs Temp 98.0 F 01/23/23 15:14 Pulse 94 01/23/23 15:14 Resp 20 01/23/23 15:14 BP 157/70 H 01/23/23 15:14 Pulse Ox 99 01/23/23 15:14 O2 Del Method Room Air 01/23/23 15:14 BMI result Body Mass Index 29.0 Const: Other: Awake alert no acute distress Resp: Other: Clear to auscultation bilaterally no rales rhonchi or wheezes Cardio: Other: No S4; positive S1-S2; no S3 murmurs rubs gallops GI: Other: Soft nontender nondistended normoactive bowel sounds Extrem: Other: No edema bilaterally Objective Data Active Medications Acetaminophen (Acetaminophen 325 Mg Tablet) 650 mg PO Q6H PRN PRN Reason: Pain, Mild (Pain Scale 1-3) Last Admin: 01/21/23 21:20 Dose: 650 mg Documented By: DARLENE Amlodipine Besylate (Amlodipine Besylate 5 Mg Tablet) 5 mg PO DAILY [facility]; Protocol Last Admin: 01/23/23 09:02 Dose: 5 mg Documented By: ZEENAT Aspirin (Aspirin Enteric Coated 81 Mg Tablet.) 81 mg PO DAILY [facility] Last Admin: 01/23/23 09:03 Dose: 81 mg Documented By: ZEENAT Atorvastatin Calcium (Atorvastatin Calcium 80 Mg Tablet) 80 mg PO DAILY [facility] Last Admin: 01/23/23 09:07 Dose: Not Given Documented By: ZEENAT Non-Admin Reason: Patient Refused Dextrose (Dextrose 50 % 25 Gm/50 Ml Syringe) 25 gm IVPUSH Q15M PRN; Protocol PRN Reason: per Hypoglycemia Standing Ord. Enoxaparin Sodium (Enoxaparin Sodium 40 Mg/0.4 Ml Syringe) 40 mg SUBCUT Q24H [facility] Last Admin: 01/22/23 21:41 Dose: 40 mg Documented By: JHONNY Gabapentin (Gabapentin 300 Mg Capsule) 300 mg PO TID [facility] Last Admin: 01/23/23 14:40 Dose: 300 mg Documented By: ZEENAT Glucose (Glucose Gel 15 Gm Gel..Gram.) 15 gm PO Q15M PRN; Protocol PRN Reason: per Hypoglycemia Standing Ord. Meropenem 1 gm/ Sodium (Chloride) 100 mls @ 200 mls/hr IV Q8H [facility] Last Infusion: 01/23/23 15:26 Dose: Infused Documented By: ZEENAT Insulin Human Lispro (Insulin Lispro 100 Unit/Ml 3 Ml Vial) 0 unit SUBCUT QIDACHS [facility]; Protocol Last Admin: 01/23/23 12:08 Dose: 10 unit Documented By: ZEENAT Lisinopril (Lisinopril 10 Mg Tablet) 10 mg PO DAILY [facility]; Protocol Last Admin: 01/23/23 09:03 Dose: 10 mg Documented By: ZEENAT Melatonin (Melatonin 3 Mg Tablet) 6 mg PO BEDTIME PRN PRN Reason: Insomnia Morphine Sulfate (Morphine Sulfate 2 Mg/Ml Cartridge) 2 mg IVPUSH Q4H PRN; Protocol PRN Reason: Pain, Severe (Pain Scale 7-10) Last Admin: 01/22/23 11:30 Dose: 2 mg Documented By: AAMIR Ondansetron HCl (Ondansetron Hcl 4 Mg/2 Ml Vial) 4 mg IVPUSH Q8H PRN PRN Reason: Nausea and Vomiting Polyethylene Glycol (Polyethylene Glycol 3350 17 Gm Powd.Pack) 17 gm PO DAILY [facility] Last Admin: 01/23/23 09:03 Dose: 17 gm Documented By: ZEENAT Senna/Docusate Sodium (Sennosides/Docusate Sodium Tablet) 1 tab PO DAILY [facility] Last Admin: 01/23/23 09:02 Dose: 1 tab Documented By: ZEENAT Sodium Chloride (0.9 % Sodium Chloride Flush 3 Ml Syringe) 3 ml IVFLUSH QSHIFT [facility] Last Admin: 01/23/23 14:42 Dose: 3 ml Documented By: ZEENAT Labs 01/23/23 07:23 01/23/23 07:23 Labs: Laboratory Results - last 24 hr 01/22/23 01/22/23 01/23/23 16:02 20:31 07:17 MCV MCH MCHC RDW Plt Count MPV Immature Gran % (Auto) Neut % (Auto) Lymph % (Auto) [place] % (Auto) Eos % (Auto) Baso % (Auto) Lymph # (Auto) [place] # (Auto) Eos # (Auto) Baso # (Auto) Abs Immat Gran (auto) Absolute Neuts (auto) Absolute Nucleated RBC Nucleated RBC % (auto) Anion Gap Estim Creat Clear Calc Estimated GFR POC Glucose 189 H 147 H 175 H Fasting Glucose Calcium Total Bilirubin AST ALT Alkaline Phosphatase Total Protein Albumin 01/23/23 01/23/23 07:23 11:07 MCV 87.5 MCH 29.4 MCHC 33.6 RDW 12.4 Plt Count 161 MPV 8.6 L Immature Gran % (Auto) 0.2 Neut % (Auto) 46.6 Lymph % (Auto) 43.7 H [place] % (Auto) 5.7 Eos % (Auto) 3.5 Baso % (Auto) 0.3 Lymph # (Auto) 2.8 [place] # (Auto) 0.4 Eos # (Auto) 0.2 Baso # (Auto) 0.0 Abs Immat Gran (auto) 0.01 Absolute Neuts (auto) 2.9 Absolute Nucleated RBC 0.000 Nucleated RBC % (auto) 0.0 Anion Gap 11 L Estim Creat Clear Calc 97.3 Estimated GFR > 60 POC Glucose 477 H* Fasting Glucose 200 H Calcium 9.5 D Total Bilirubin 0.3 AST 17 ALT 18 Alkaline Phosphatase 60 Total Protein 6.5 Albumin 3.1 L Microbiology Microbiology Results: Microbiology 01/21/23 Unknown Urine Culture - Final Urine clean catch - Urine tyler top Klebsiella pneumoniae 01/21/23 16:58 Blood Culture - Preliminary Blood - Venous No growth after 24 hours. 01/21/23 14:44 Blood Culture - Preliminary Blood - Venous No growth after 24 hours. Assessment and Plan (1) Urinary tract infection due to ESBL Klebsiella: Status: Acute Plan This is a 52-year-old female with pertinent history of mood disorder, insulin- dependent diabetes mellitus, mixed hyperlipidemia, history of ESBL Klebsiella in the urine, essential hypertension who presents to the emergency department for evaluation of dizziness and abdominal pain. 1.Acute UTI(Hx of ESBL Klebsiella) -Meropenem(3). -ID consult -Klebsiella sensitive to ertapenem 2. Orthostatic hypotension -resolved -follow clinically 3.Insulin-dependent diabetes mellitus -no further hypoglycemia -continue home insulin regimen -lispro correctional scale -adjust as indicated Lovenox Full code Will require ongoing hospitalization for IV antibiotics pending urine culture Time Spent With Patient Time: Total time managing care of this patient today ____ minutes. Quality Stroke Does the patient have a stroke diagnosis?: No VTE Prior VTE?: No VTE Risk Level:: Medical - moderate - high VTE Device Contraindication: Treatment Not Indicated VTE Drug Contraindication: N/A - Med Ordered
[2023-01-23 16:07] LABS: Glucose, Whole Blood 128 mg/dL (60-115)
[2023-01-23 19:20] VITALS: BP 145/73; PULSE 92; RESP 20; TEMP 37.2; O2SAT 97
[2023-01-23 19:53] LABS: Glucose, Whole Blood 253 mg/dL (60-115)
[2023-01-23] MEDS: Enoxaparin Sodium 40 MG/0.4 ML SYRINGE SUBCUT (20:37)
[2023-01-24] VITALS: BP 144/66; PULSE 86; RESP 20; TEMP 36; O2SAT 99
[2023-01-24] MEDS: 0.9 % Sodium Chloride Flush 3 ML SYRINGE IVFLUSH ×3 (00:16→14:10)
[2023-01-24 03:21] VITALS: BP 117/55; PULSE 86; RESP 20; TEMP 36.2; O2SAT 99
[2023-01-24 07:45] LABS: MANUAL DIFF FLAG NO
[2023-01-24 07:49] LABS: Basophils Percent Auto 0.3 % (0-2); Eosinophils Absolute Auto 0.2 X10*3/uL (0.0-0.4); Eosinophils Percent Auto 3.2 % (0-4); Hemoglobin 10.8 g/dl (12.0-16.0); Imm Gran Abs Auto 0.01 X10*3/uL (0.00-0.03); Imm Gran Pct Auto 0.2 % (0.0-0.4); Lymphocytes Absolute Auto 3.1 X10*3/uL (1.2-4.9); Lymphocytes Percent Auto 47.4 % (20-40); Mean Corpuscular HGB Conc 33.8 g/dl (31.0-35.0); Mean Corpuscular Hemoglobin 29.1 pg (27.0-33.0); Mean Corpuscular Volume 86.3 fL (80.0-98.0); Mean Platelet Volume 8.8 fL (9.4-12.3); Monocytes Absolute Auto 0.4 X10*3/uL (0.1-1.2); Monocytes Percent Auto 6.7 % (2-11); Neutrophils Absolute Auto 2.8 x10*3/uL (2.0-8.3); Neutrophils Percent Auto 42.2 % (45-73); Platelet Count 157 X10*3/uL (160-400); Red Blood Count 3.71 X10*6/uL (4.20-5.50); Red Cell Distribution Width 12.4 % (11.0-16.0); White Blood Count 6.6 X10*3/uL (4.8-10.8)
[2023-01-24 07:52] VITALS: BP 171/79; PULSE 96; RESP 20; TEMP 36.1; O2SAT 97
[2023-01-24 07:58] LABS: Glucose, Whole Blood 153 mg/dL (60-115)
[2023-01-24 08:03] LABS: Alanine Aminotransferase 28 U/L (0-31); Albumin Level 3.2 g/dL (3.5-5.0); Alkaline Phosphatase 63 U/L (39-117); Anion Gap 11 (12-20); Aspartate Amino Transferase 22 U/L (5-31); Bilirubin Total 0.3 mg/dL (0.0-1.0); Blood Urea Nitrogen 18 mg/dL (9-16); Calcium 9.8 mg/dL (8.4-10.2); Carbon Dioxide 32 mmol/L (22-29); Chloride 104 mmol/L (96-108); Creatinine Clr Calc Pharmacy 92.1; Estimated Glomerular Filt Rate > 60; Glucose Fasting 170 mg/dL (60-99); Potassium 4.7 mmol/L (3.3-5.1); Sodium 142 mmol/L (135-145); Total Protein 6.7 g/dL (6.5-8.0)
[2023-01-24] MEDS: lisinopriL 10 MG TABLET PO (08:33)
[2023-01-24] MEDS: Aspirin Enteric Coated 81 MG TABLET.DR PO (08:33)
[2023-01-24] MEDS: Sennosides/Docusate Sodium TABLET 1 TAB PO (08:33)
[2023-01-24] MEDS: amLODIPine Besylate 5 MG TABLET PO (08:33)
[2023-01-24] MEDS: Gabapentin 300 MG CAPSULE PO ×2 (08:33→14:07)
[2023-01-24] MEDS: polyethylene glycoL 3350 17 GM POWD.PACK PO (08:34)
[2023-01-24] MEDS: Insulin Lispro 100 UNIT/ML 3 ML VIAL SUBCUT ×2 (08:34→11:49)
[2023-01-24] MEDS: Atorvastatin Calcium 80 MG TABLET PO (08:34)
[2023-01-24 11:07] VITALS: BP 183/85; PULSE 94; RESP 20; TEMP 36.3; O2SAT 98
[2023-01-24 11:24] LABS: Glucose, Whole Blood 227 mg/dL (60-115)
--- NOTE | 2023-01-24 14:37 | P.DS_ITS ---
DS: Providers Provider Date of Service: 01/24/23 Date of admission: 01/21/23 20:55 Date of discharge: 01/24/23 Primary care physician: Neelima Gómez MD Consults: 01/21/23 20:29 Consult to Infectious Diseases Routine Consulting Provider: SAMUEL COX Reason for consultation: symptomatic uti Klebsiella DS: Diagnosis Discharge Diagnosis (1) Urinary tract infection due to ESBL Klebsiella: Status: Acute DS: Summary Hospital Course Hospital Course: 52-year-old female with pertinent history of mood disorder, insulin-dependent diabetes mellitus, mixed hyperlipidemia, history of ESBL Klebsiella in the urine, essential hypertension who presents to the emergency department for evaluation of dizziness and abdominal pain. Patient states the symptoms started 3 days prior to presentation. She has been having abdominal discomfort, worse when she micturates. It is generalized, nonradiating and progressive. No dysuria, urgency but has hesitancy. Patient also states she has been having dizziness and lightheadedness when she tries to get up. Admits adequate p.o. intake. Admits chills but no fever, chest discomfort, palpitations, shortness of breath, changes in bowel habits. Patient's blood pressure was found to be low upon arrival. Hospital Course Admitted to telemetry and started on meropenem secondary to ESBL Klebsiella. Over the course of the next 48 hours her white count normalized and she was asymptomatic from an orthostatic standpoint. Case discussed with ID and patient will be sent home on 3 doses of oral fosfomycin. She can follow up with PCP in 2 weeks Time Spent with Patient Time attestation: Total time managing care of this patient today ____ minutes. Discharge coordination time: Greater than 30 minutes Quality: Safe Use of Opioids Does Pt have an Active Cancer Diagnosis on the Problem List?: No Quality: Stroke Does the patient have a stroke diagnosis?: No Physical Exam Vital Signs: Vital Signs: Last Vital Signs Temp 97.3 F 01/24/23 11:07 Pulse 94 01/24/23 11:07 Resp 20 01/24/23 11:07 BP 183/85 H 01/24/23 11:07 Pulse Ox 98 01/24/23 11:07 O2 Del Method Room Air 01/24/23 11:07 BMI result Body Mass Index 29.0 Const: Other: Awake alert no acute distress Resp: Other: Clear to auscultation bilaterally no rales rhonchi or wheezes Cardio: Other: No S4; positive S1-S2; no S3 murmurs rubs gallops GI: Other: Soft nontender nondistended normoactive bowel sounds Extrem: Other: No edema bilaterally DS: Data Data Completed and Pending Completed studies during hospitalization [Text1]: Procedures Transfusion of Nonautologous Red Blood Cells into Peripheral Vein, Percutaneous Approach (12/17/22) Labs on day of discharge: Laboratory Results - last 24 hr 01/23/23 01/23/23 01/24/23 16:03 19:46 07:30 WBC 6.6 RBC 3.71 L Hgb 10.8 L Hct 32.0 L MCV 86.3 MCH 29.1 MCHC 33.8 RDW 12.4 Plt Count 157 L MPV 8.8 L Immature Gran % (Auto) 0.2 Neut % (Auto) 42.2 L Lymph % (Auto) 47.4 H [place] % (Auto) 6.7 Eos % (Auto) 3.2 Baso % (Auto) 0.3 Lymph # (Auto) 3.1 [place] # (Auto) 0.4 Eos # (Auto) 0.2 Baso # (Auto) 0.0 Abs Immat Gran (auto) 0.01 Absolute Neuts (auto) 2.8 Absolute Nucleated RBC 0.000 Nucleated RBC % (auto) 0.0 Sodium 142 Potassium 4.7 Chloride 104 Carbon Dioxide 32 H Anion Gap 11 L BUN 18 H Creatinine 0.76 Estim Creat Clear Calc 92.1 Estimated GFR > 60 POC Glucose 128 H 253 H Fasting Glucose 170 H Calcium 9.8 Total Bilirubin 0.3 AST 22 ALT 28 Alkaline Phosphatase 63 Total Protein 6.7 Albumin 3.2 L 01/24/23 01/24/23 07:51 11:20 WBC RBC Hgb Hct MCV MCH MCHC RDW Plt Count MPV Immature Gran % (Auto) Neut % (Auto) Lymph % (Auto) [place] % (Auto) Eos % (Auto) Baso % (Auto) Lymph # (Auto) [place] # (Auto) Eos # (Auto) Baso # (Auto) Abs Immat Gran (auto) Absolute Neuts (auto) Absolute Nucleated RBC Nucleated RBC % (auto) Sodium Potassium Chloride Carbon Dioxide Anion Gap BUN Creatinine Estim Creat Clear Calc Estimated GFR POC Glucose 153 H 227 H Fasting Glucose Calcium Total Bilirubin AST ALT Alkaline Phosphatase Total Protein Albumin Preliminary micro results at discharge 01/21/23 16:58 Blood Culture - Preliminary Blood - Venous No growth after 48 hours. 01/21/23 14:44 Blood Culture - Preliminary Blood - Venous No growth after 48 hours. Discharge Plan Discharge Anticipated Discharge Date/Time: 01/24/23 14:33 Patient Disposition: Home Health Service Discharge Diagnosis: Klebsiella UTI Referrals: [facility] [Outside] - 1 Day (RESUMPTION OF SERVICES) Neelima Brown MD [Primary Care Provider] - 1 Week Discharge Medications: New fosfomycin tromethamine 3 gram packet 1 packet PO Q OTHER DAY Qty: 3 0RF Continued aspirin 81 mg tablet,delayed release (DR/EC) 1 tab PO DAILY pioglitazone 30 mg tablet 1 tab PO DAILY insulin lispro 100 unit/mL insulin pen See Protocol subcut TIDAC Protocol: Insulin Correction Scale Less than or equal to 110 ---- Give (units): 0 111 to 150 Give (units): 0 151 to 200 Give (units): 10 201 to 250 Give (units): 12 251 to 300 Give (units): 14 301 to 350 Give (units): 16 Greater than 350 Give (units): 18 Call if Blood Glucose > : 350 Rx Instructions: increase by 2 units per 50mg/dL insulin glargine [Lantus Solostar U-100 Insulin] 100 unit/mL (3 mL) insulin pen 18 unit subcut BEDTIME (DME) FreeStyle Test Strip See Rx Instructions .Route Qty: 100 0RF Rx Instructions: As directed sennosides-docusate sodium [Stimulant Laxative Plus] 8.6-50 mg tablet 1 tab PO QAM lisinopril 10 mg tablet 10 mg PO QAM gabapentin 300 mg capsule 300 mg PO TID polyethylene glycol 3350 [Gavilax] 17 gram/dose powder 17 g PO DAILY rosuvastatin 40 mg tablet 40 mg PO QAM amlodipine 5 mg Tablet 5 mg PO DAILY Qty: 30 0RF Protocol: Hold for SBP< HOLD for SBP < : 90 Discharge Orders: Discharge Order (Routine); Ordered 01/24/23 Ordered By: Aquilino Zuniga Diet: Advance to usual diet Activity on Discharge: As tolerated Stand Alone Forms: Patient Portal Discharge page Care Plan Goals: Take antibiotic as prescribed. Continue all other pre-hospital medications Health Concerns: Follow-up with PCP as scheduled Plan of Treatment: Drink plenty of fluids Assessment: See discharge summary Patient Instructions: Enoxaparin (By injection)
--- NOTE | 2023-01-24 15:23 | MHC.CM.PN ---
Addendum entered by Alysha Baez 01/24/23 15:52: Pts son will pick pt up and transport her home. Original Note: Pt is medically cleared for D/C home with resumption of [facility]. Pt will transport home via [facility].
== END 2023-01-24 16:15 | disposition home health service (06) | DRG 463 ==
LOC: HO.ED 20:36 → HO.EDOVER 20:55 → HO.IMC 01-22 12:48
PROVIDERS: Physician Assistant; Admitting Provider Student in an Organized Health Care Education/Training Program; Emergency Provider Emergency Medicine; PCP Internal Medicine; Visit Provider Hospitalist
DX: N39.0 Urinary tract infection, site not specified (principal); E11.649 Type 2 diabetes mellitus with hypoglycemia without coma; E87.21 Acute metabolic acidosis; B96.1 Klebsiella pneumoniae [K. pneumoniae] as the cause of diseases classified elsewhere; Z16.12 Extended spectrum beta lactamase (ESBL) resistance; E78.2 Mixed hyperlipidemia; F39 Unspecified mood [affective] disorder; E86.0 Dehydration; I95.1 Orthostatic hypotension; Z79.4 Long term (current) use of insulin; Z79.82 Long term (current) use of aspirin; Z79.899 Other long term (current) drug therapy
CPT/HCPCS: 36415; 74176; 80048; 80053; 80076; 80307; 81001; 81003; 82947; 83605; 83690; 83735; 84484; 85025; 86850; 86900; 86901; 87040; 87086; 87088; 87186; 93005; 99222; 99285; J1335; J1650; J2185; J2270

== ENCOUNTER → 2023-01-21 20:55 | Outpatient (BNV) | payer MEDICAID, SELFPAY | PROVIDERS: Admitting Provider Student in an Organized Health Care Education/Training Program; Emergency Provider Emergency Medicine; Visit Provider Student in an Organized Health Care Education/Training Program | DX: N39.0 Urinary tract infection, site not specified (principal); B96.89 Other specified bacterial agents as the cause of diseases classified elsewhere | CPT/HCPCS: 99223; 99233; 99239 ==

== ENCOUNTER 2023-04-11 15:28 | Outpatient (REF) | payer MEDICAID, SELFPAY ==
[2023-04-11 16:16] LABS: MANUAL DIFF FLAG NO
[2023-04-11 16:23] LABS: Basophils Percent Auto 0.4 % (0-2); Eosinophils Absolute Auto 0.2 X10*3/uL (0.0-0.4); Eosinophils Percent Auto 2.5 % (0-4); Hematocrit 30.6 % (37.0-47.0); Hemoglobin 10.4 g/dl (12.0-16.0); Imm Gran Abs Auto 0.02 X10*3/uL (0.00-0.03); Imm Gran Pct Auto 0.3 % (0.0-0.4); Lymphocytes Absolute Auto 2.7 X10*3/uL (1.2-4.9); Lymphocytes Percent Auto 37.1 % (20-40); Mean Corpuscular Hemoglobin 30.6 pg (27.0-33.0); Mean Platelet Volume 8.9 fL (9.4-12.3); Monocytes Absolute Auto 0.4 X10*3/uL (0.1-1.2); Monocytes Percent Auto 5.4 % (2-11); Neutrophils Percent Auto 54.3 % (45-73); Platelet Count 212 X10*3/uL (160-400); Red Cell Distribution Width 12.9 % (11.0-16.0); White Blood Count 7.3 X10*3/uL (4.8-10.8)
[2023-04-11 16:45] LABS: Alanine Aminotransferase 30 U/L (0-31); Albumin Level 3.7 g/dL (3.5-5.0); Alkaline Phosphatase 86 U/L (39-117); Anion Gap 11 (12-20); Aspartate Amino Transferase 35 U/L (5-31); Bilirubin Total 0.3 mg/dL (0.0-1.0); Blood Urea Nitrogen 22 mg/dL (9-16); Calcium 9.8 mg/dL (8.4-10.2); Carbon Dioxide 31 mmol/L (22-29); Chloride 104 mmol/L (96-108); Estimated Glomerular Filt Rate 41; Glucose Random 229 mg/dL (60-115); Potassium 3.9 mmol/L (3.3-5.1); Sodium 142 mmol/L (135-145)
[2023-04-12 15:40] LABS: Influenza A PCR NEGATIVE (Negative); Influenza B PCR NEGATIVE (Negative); Resp Syncy Virus RNA Qual PCR NEGATIVE (Negative); SARS COV2 PCR INHOUSE NEGATIVE (Negative)
== END 2023-04-11 15:29 | disposition home or self-care (01) ==
LOC: HO.HHCL 15:28
PROVIDERS: Visit Provider Emergency Medicine
DX: J06.9 Acute upper respiratory infection, unspecified (principal); R42 Dizziness and giddiness; Z11.52 Encounter for screening for COVID-19
CPT/HCPCS: 0241U; 36415; 80053; 85025

== ENCOUNTER 2023-06-19 14:28 | Inpatient (IN) | payer MEDICAID, SELFPAY ==
--- NOTE | ~2023-06-19 | XR_ITS ---
EXAMINATION: XR CHEST CLINICAL INFORMATION: diminished lung sounds on right COMPARISON: Chest radiograph 12/22/2022 TECHNIQUE: 2 views of the chest FINDINGS: Lines and tubes: Upper abdominal surgical clips. Clear lungs. No pleural effusion. No pneumothorax. Normal cardiomediastinal silhouette. XR/XR chest 2V IMPRESSION: Clear lungs.
[2023-06-19 14:38] VITALS: BP 118/80; BP 151/61; PULSE 80; PULSE 82; RESP 16; TEMP 36.6; O2SAT 100; O2SAT 98; BMI 22.6
--- NOTE | 2023-06-19 15:15 | ECG_ITS ---
Test Reason : sob Blood Pressure : / mmHG Vent. Rate : 079 BPM Atrial Rate : 079 BPM P-R Int : 156 ms QRS Dur : 076 ms QT Int : 340 ms P-R-T Axes : 049 005 242 degrees QTc Int : 389 ms Normal sinus rhythm Septal infarct (cited on or before 27-DEC-2022) Abnormal ECG When compared with ECG of 21-JAN-2023 16:43, Nonspecific T wave abnormality now evident in Anterior leads QT has shortened Referred By: Alysha Galdamez Electronically Signed By:Elpidio Cortez
[2023-06-19 15:51] LABS: MANUAL DIFF FLAG NO
[2023-06-19 15:53] LABS: Basophils Percent Auto 0.4 % (0-2); Eosinophils Absolute Auto 0.2 X10*3/uL (0.0-0.4); Eosinophils Percent Auto 3.1 % (0-4); Hemoglobin 10.2 g/dl (12.0-16.0); Imm Gran Abs Auto 0.01 X10*3/uL (0.00-0.03); Imm Gran Pct Auto 0.1 % (0.0-0.4); Lymphocytes Absolute Auto 2.5 X10*3/uL (1.2-4.9); Lymphocytes Percent Auto 34.1 % (20-40); Mean Corpuscular HGB Conc 35.2 g/dl (31.0-35.0); Mean Corpuscular Hemoglobin 30.1 pg (27.0-33.0); Mean Corpuscular Volume 85.5 fL (80.0-98.0); Mean Platelet Volume 8.1 fL (9.4-12.3); Monocytes Absolute Auto 0.7 X10*3/uL (0.1-1.2); Monocytes Percent Auto 9.1 % (2-11); Neutrophils Absolute Auto 3.9 x10*3/uL (2.0-8.3); Neutrophils Percent Auto 53.2 % (45-73); Platelet Count 123 X10*3/uL (160-400); Red Blood Count 3.39 X10*6/uL (4.20-5.50); Red Cell Distribution Width 12.4 % (11.0-16.0); White Blood Count 7.4 X10*3/uL (4.8-10.8)
--- NOTE | 2023-06-19 16:01 | ED.GENADULT ---
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 Patient states that her blood pressures were 110-115 systolic and she considers that low for her. She denies any chest pain, palpitations, dyspnea. She does complain of cough which began last night. Denies fevers. Denies any abdominal pain, nausea, vomiting, diarrhea. Denies any dysuria, frequency, or other urinary symptoms. MD complaint: dizziness, weakness Onset (ago): hour(s) Associated symptoms: denies other symptoms Treatments prior to arrival: none Related Data Home Medications Medication Instructions Recorded Confirmed aspirin 81 mg tablet,delayed 1 tab PO DAILY 07/21/22 01/21/23 release insulin glargine 100 unit/mL (3 18 unit subcut BEDTIME 07/21/22 01/21/23 mL) subcutaneous pen (Lantus Solostar U-100 Insulin) insulin lispro 100 unit/mL See Protocol subcut TIDAC 07/21/22 01/21/23 subcutaneous pen pioglitazone 30 mg tablet 1 tab PO DAILY 07/21/22 01/21/23 gabapentin 300 mg capsule 300 mg PO TID 12/17/22 01/21/23 lisinopril 10 mg tablet 10 mg PO QAM 12/17/22 01/21/23 polyethylene glycol 3350 17 17 g PO DAILY 12/17/22 01/21/23 gram/dose oral powder (Gavilax) rosuvastatin 40 mg tablet 40 mg PO QAM 12/17/22 01/21/23 sennosides 8.6 mg-docusate sodium 1 tab PO QAM 12/17/22 01/21/23 50 mg tablet (Stimulant Laxative Plus) Previous Rx's Medication Instructions Recorded blood sugar diagnostic (FreeStyle #100 ea 10/02/22 Test strips) amlodipine 5 mg tablet 5 mg PO DAILY #30 tabs 12/20/22 fosfomycin tromethamine 3 gram 1 packet PO Q OTHER DAY 3 doses #3 01/24/23 oral packet ea Allergies Allergy/AdvReac Type Severity Reaction Status Date / Time shrimp Allergy Swelling Verified 06/19/23 14:37 Review of Systems Review of Systems: As per HPI Yes all other systems are reviewed and are negative Constitutional: Constitutional: Reports as per HPI [facility] Past Medical History Medical History Symptomatic anemia Hypertension Brain lesion Iron deficiency anemia HLD (hyperlipidemia) Anemia Depression Type 2 diabetes mellitus Family History Family History Other Hypertension Social History Social History Household Members: Family Household Members Other:: Daughter Housing: Apartment Do you presently [facility] or other [facility] Unable to assess alcohol history related to: Unable to respond Alcohol intake: never Patient Tobacco Use Status: Never used Tobacco Smoked in Last 30 Days: No e-Cigarette/Vaping Use: Never Used Second Hand Smoke Exposure: No Use of substances other than those prescribed or required for medical reasons: No Advance Directives: Yes Advance Directives on File: Yes Advance Directives Date on File: 06/19/21 Patient : No service: No Current occupational status: unemployed Physical Exam ED Vital Signs: Vital Signs - 24 hr 06/19/23 14:38 Temperature 97.8 F Pulse Rate 80 Respiratory Rate 16 Blood Pressure 151/61 H Pulse Oximetry 98 Oxygen Delivery Method Room Air BMI result Body Mass Index 22.6 Vital signs have been reviewed and appear to be correct. Blood pressure elevated. Heart rate normal. Respiratory rate normal. Temperature normal. Oxygen saturation normal. Const General: cooperative, healthy appearing and no acute distress Orientation/consciousness: oriented to person, oriented to place, oriented to time and patient oriented x3 Limitations: no limitations HENMT Head: Yes normocephalic and Yes atraumatic Ears: external ears normal General nose exam: Normal external nose present Face and sinus: Yes face symmetric Mouth: oropharynx normal and moist mucous membranes Throat: Yes uvula midline Eyes Pupils: Equal, round and reactive pupils present Neck Neck: Yes normal visual inspection, Yes no meningeal signs and Yes supple Resp Effort & Inspection: normal respiratory effort and able to speak in complete sentences Auscultation: diminished lung sounds (CTA on left) on the right throughout Cardio Rate: regular rate Rhythm: regular rhythm Heart sounds: S1 normal heart sound present and S2 normal heart sound present GI Palpation (GI): Soft to palpation and nontender Auscultation: normoactive bowel sounds General: Yes no CVA tenderness Back/Spine/Pelvis Back: no CVA tenderness Skin General skin exam: elasticity normal and turgor normal Neuro General: oriented to person, oriented to place, oriented to time, patient oriented x3, tone normal, moves all extremities, Normal light touch and pain sensation, no meningeal signs, no focal motor deficits, CN's II-XI intact bilaterally and deep tendon reflexes 2+ bilaterally Cranial nerves: Yes Equal, round and reactive pupils present Cognition (Neuro): normal cognition Motor exam (neuro): 5/5 motor strength present throughout, no tremor noted, Normal motor muscle tone present throughout and Motor abnormalities not present Sensory Exam: Normal double simultaneous stimulation for sensation Extrem General: Yes full ROM, Yes no pedal edema and Yes no calf tenderness Psych Mental Status: mental status grossly normal Affect: normal affect Thought process: Normal thought process present Medical Decision Making Medical Decision Making [facility] Narrative: Patient is a 53-year-old [place]-speaking female presenting to the emergency department complaining of low blood pressure readings at home as well as dizziness and generalized weakness. On exam patient is awake, A+Ox3, VS WNL, afebrile, normal neurological exam without focal deficits, physical exam findings as above. Given reported symptoms and physical exam findings, initial differential includes dehydration, electrolyte abnormality, cardiac dysrhythmia, UTI, pneumonia. EKG shows normal sinus rhythm. Labs notable for hypokalemia, no leukocytosis, chronic microcytic anemia, elevated creatinine. IV and PO potassium ordered. Will add magnesium level. No evidence of pneumonia on CXR. My interpretation is in agreement with radiologist's interpretation. Patient signed out to MICKEY Vincent pending UA and labs. Differential Diagnosis Differential Diagnoses: The differential diagnosis associated with the presentation includes As per [facility] Admission/Observation Consideration of admission/observation: Escalation of care including admission/observation considered Lab Data [facility] Lab Attestation statement: I reviewed the patient's lab results. As per [facility] 06/19/23 15:47 06/19/23 15:47 Labs: Lab Results 06/19/23 06/19/23 Range/Units 15:43 15:47 WBC 7.4 (4.8-10.8) X10*3/uL RBC 3.39 L (4.20-5.50) X10*6/uL Hgb 10.2 L (12.0-16.0) g/dl Hct 29.0 L (37.0-47.0) % MCV 85.5 (80.0-98.0) fL MCH 30.1 (27.0-33.0) pg MCHC 35.2 H (31.0-35.0) g/dl RDW 12.4 (11.0-16.0) % Plt Count 123 L D (160-400) X10*3/uL MPV 8.1 L (9.4-12.3) fL Immature Gran % (Auto) 0.1 (0.0-0.4) % Neut % (Auto) 53.2 (45-73) % Lymph % (Auto) 34.1 (20-40) % [place] % (Auto) 9.1 (2-11) % Eos % (Auto) 3.1 (0-4) % Baso % (Auto) 0.4 (0-2) % Lymph # (Auto) 2.5 (1.2-4.9) X10*3/uL [place] # (Auto) 0.7 (0.1-1.2) X10*3/uL Eos # (Auto) 0.2 (0.0-0.4) X10*3/uL Baso # (Auto) 0.0 (0.0-0.2) X10*3/uL Abs Immat Gran (auto) 0.01 (0.00-0.03) X10*3/uL Absolute Neuts (auto) 3.9 (2.0-8.3) x10*3/uL Absolute Nucleated RBC 0.000 (0.0-0.012) X10*3/uL Nucleated RBC % (auto) 0.0 (0.0-0.2) /100WBC PT 11.8 (11.1-13.3) SEC INR 1.0 (0.9-1.1) Sodium 144 (135-145) mmol/L Potassium 2.7 L* (3.3-5.1) mmol/L Chloride 108 (96-108) mmol/L Carbon Dioxide 30 H (22-29) mmol/L Anion Gap 9 L (12-20) BUN 15 (9-16) mg/dL Creatinine 1.49 H (0.5-1.4) mg/dL Estim Creat Clear Calc 40.4 Estimated GFR 36 Random Glucose 112 (60-115) mg/dL Calcium 9.6 (8.4-10.2) mg/dL Total Bilirubin 0.4 (0.0-1.0) mg/dL AST 19 (5-31) U/L ALT 28 (0-31) U/L Alkaline Phosphatase 98 (39-117) U/L Troponin I High Sens 5.6 (<3.5-17.0) ng/L Total Protein 7.5 (6.5-8.0) g/dL Albumin 3.7 (3.5-5.0) g/dL Beta HCG, Quant 4 mIU/mL COVID-19 (RICKY) Negative (Negative) COVID-19 Clin Com See Note Influenza Type A (GIORGIO) Negative (Negative) Influenza Type B (GIORGIO) Negative (Negative) Influenza A & B Note See Note Independent Interpretation I performed an independent interpretation of an: Plain X-Ray Interpretation: No evidence of pneumonia, ptx Radiology Impression Discussion of test interpretation with radiology: I have reviewed the radiologist's reading. Radiologist Impression: XR/XR chest 2V IMPRESSION: Clear lungs. External Record Review External record reviewed: Inpatient record, Office record and Outpatient record Discharge Plan Discharge Clinical Impression: Hypokalemia Patient Disposition: Still a Patient Prescriptions: No Action aspirin 81 mg tablet,delayed release (DR/EC) 1 tab PO DAILY pioglitazone 30 mg tablet 1 tab PO DAILY insulin lispro 100 unit/mL insulin pen See Protocol subcut TIDA Protocol: Insulin Correction Scale Less than or equal to 110 ---- Give (units): 0 111 to 150 Give (units): 0 151 to 200 Give (units): 10 201 to 250 Give (units): 12 251 to 300 Give (units): 14 301 to 350 Give (units): 16 Greater than 350 Give (units): 18 Call MD if Blood Glucose > : 350 Rx Instructions: increase by 2 units per 50mg/dL insulin glargine [Lantus Solostar U-100 Insulin] 100 unit/mL (3 mL) insulin pen 18 unit subcut BEDTIME (DME) FreeStyle Test Strip See Rx Instructions .Route Qty: 100 0RF Rx Instructions: As directed sennosides-docusate sodium [Stimulant Laxative Plus] 8.6-50 mg tablet 1 tab PO QAM lisinopril 10 mg tablet 10 mg PO QAM gabapentin 300 mg capsule 300 mg PO TID polyethylene glycol 3350 [Gavilax] 17 gram/dose powder 17 g PO DAILY rosuvastatin 40 mg tablet 40 mg PO QAM amlodipine 5 mg Tablet 5 mg PO DAILY Qty: 30 0RF Protocol: Hold for SBP< HOLD for SBP < : 90 fosfomycin tromethamine 3 gram packet 1 packet PO Q OTHER DAY Qty: 3 0RF
[2023-06-19 16:04] LABS: Prothrombin Time 11.8 SEC (11.1-13.3)
[2023-06-19 16:06] LABS: COVID-19 Test Negative (Negative); IDNOW Serial# 9DB6401D
[2023-06-19 16:09] LABS: IDNOW Serial# 58CA691E; Influenza A Negative (Negative); Influenza B2 Negative (Negative)
[2023-06-19 16:11] LABS: Alanine Aminotransferase 28 U/L (0-31); Albumin Level 3.7 g/dL (3.5-5.0); Alkaline Phosphatase 98 U/L (39-117); Anion Gap 9 (12-20); Aspartate Amino Transferase 19 U/L (5-31); Bilirubin Total 0.4 mg/dL (0.0-1.0); Blood Urea Nitrogen 15 mg/dL (9-16); Calcium 9.6 mg/dL (8.4-10.2); Carbon Dioxide 30 mmol/L (22-29); Chloride 108 mmol/L (96-108); Creatinine Clr Calc Pharmacy 40.4; Estimated Glomerular Filt Rate 36; Glucose Random 112 mg/dL (60-115); Potassium 2.7 mmol/L (3.3-5.1); Sodium 144 mmol/L (135-145); Total Protein 7.5 g/dL (6.5-8.0)
[2023-06-19 16:16] LABS: HCG Quantitative 4 mIU/mL; Troponin-I High Sensitivity 5.6 ng/L (<3.5-17.0)
[2023-06-19 16:43] LABS: Magnesium 2.5 mg/dL (1.6-2.6)
[2023-06-19] MEDS: 0.9 % Sodium Chloride 1,000 ML 999 ML IV (17:48)
[2023-06-19] MEDS: Potassium Chloride/H20 10 MEQ/100 ML PIGGYBACK 100 MEQ IV ×4 (17:51→21:26)
[2023-06-19] MEDS: Potassium Chloride ER 20 MEQ TAB.ER.PRT 40 MEQ PO (17:57)
[2023-06-19 18:10] VITALS: BP 186/89; PULSE 83; RESP 18; TEMP 36.4; O2SAT 98
--- NOTE | 2023-06-19 18:25 | PC.NURSE ---
Pt enters my care- pt is lying quietly @ bedside with son. Son discloses that she hasn't really been good care of herself and only wants to eat Ramen noodles. Pt is well appearing- BP normal now- K+ is low being replaced-
[2023-06-19 20:10] VITALS: BP 193/70; PULSE 84; RESP 12; TEMP 36.6; O2SAT 99
[2023-06-19 21:18] VITALS: BP 200/75; PULSE 81; RESP 16; TEMP 36.6; O2SAT 99
[2023-06-19 21:28] LABS: Appearance Urine Turbid; Color Urine Yellow; Glucose Urine UA 250 mg/dL (Negative); Leukocyte Esterase Urine Large (3+) (Negative); Nitrite Urine Negative (Negative); UMIC TRIGGER UACC YES; Urine Blood Small (1+) (Negative); Urine Ketones Negative (Negative); Urine Protein 100 (2+) mg/dL (Neg-Trace)
[2023-06-19] MEDS: Labetalol HCL 100 MG/20 ML VIAL 10 MG IVPUSH (21:36)
--- NOTE | 2023-06-19 21:38 | PC.NURSE ---
Provider informed of elevated BP 180-200/77-80, P 78-80. Patient denies chest pain/headache/SOB, non-diaphoretic. Labetalol 10 mg IV push administered per MD order with improvement in BP noted 170/57, P 78.
[2023-06-19 21:41] VITALS: BP 170/57; PULSE 78; RESP 12; O2SAT 98
[2023-06-19 22:17] LABS: Bacteria Urine 4+ (None Seen); RBC Urine 0-2 /HPF (0-2); UACC Culture Trigger YES; WBC Urine >50 /HPF (0-5)
[2023-06-19 23:19] VITALS: BP 152/67; PULSE 82; RESP 13; O2SAT 98
[2023-06-19] MEDS: cefuroxime axetiL 250 MG TABLET PO (23:44)
[2023-06-20] VITALS (11 sets, daily range): BP systolic 76–182; BP diastolic 38–83; PULSE 80–89; RESP 12–18; TEMP 36.4–36.8; O2SAT 97–100
[2023-06-20 07:29] LABS: Glucose, Whole Blood 158 mg/dL (60-115)
[2023-06-20] MEDS: 0.9 % Sodium Chloride 1,000 ML 100 ML IVCONT ×2 (08:31→20:10)
--- NOTE | 2023-06-20 08:38 | PC.NURSE ---
A/O X 3 NO SOB/GAVI NOTED SPEAKS IN FULL SENTENCES. LUNGS - DIMINISHED ALL LOBES. PT AWARE OF PLAN OF CARE FOR ADMISSION TO HOSP. DR. BERNABE AT BEDSIDE TO ADMIT PT. PT DENIES ANY PAIN/DISC.PT AMB TO BATHROOM EARLIER WITH ASSIST AND C/O DIZZINESS. PT'S ORTHOSTATIC VS WERE POSITIVE. WILL CONTINUE TO MONITOR.
[2023-06-20] MEDS: Potassium Chloride ER 20 MEQ TAB.ER.PRT PO ×2 (08:45→20:10)
[2023-06-20 09:20] LABS: Anion Gap 12 (12-20); Blood Urea Nitrogen 14 mg/dL (9-16); Calcium 9.5 mg/dL (8.4-10.2); Carbon Dioxide 25 mmol/L (22-29); Chloride 108 mmol/L (96-108); Creatinine Clr Calc Pharmacy 43.6; Estimated Glomerular Filt Rate 40; Glucose Random 210 mg/dL (60-115); Magnesium 2.4 mg/dL (1.6-2.6); Potassium 3.3 mmol/L (3.3-5.1); Sodium 142 mmol/L (135-145)
[2023-06-20 09:53] LABS: Estimated Average Glucose 180 mg/dL; Hemoglobin A1c % 7.9 % (<6.0)
--- NOTE | 2023-06-20 10:33 | P.HPHOSP_ITS ---
History of Present Illness Date of Service: 06/20/23 Chief Complaint: dizzines 53yo with HTN, DM2, hx orthostatic hypotension, and hx ESBL UTI presenting with 1d of dizziness and lightheadedness. She felt she was going to faint but no syncope. No recent vomiting or diarrhea. No fever. No dysuria or hematuria and no flank pain. No changes to antihypertensives, which are amlodipine and lisinopril. Home SBPs in the 110s, which for her is low. In the ED, initial BP was 151/61 and jay to 200/75. She was given 10 mg of IV labetalol. Orthostatics were floirldy positive, with supine BP of 176/70, sitting BP of 114/59, and standing BP of 76/38. She was also noted to have low K at 2.7. Serum creatinine was 1.49, compared to 1.36 on 04/11/23 and 0.76 on 01/24/23. She was given 40 mEq of KCl IV and another 40 mEq of KCl PO. She was also given 1L of normal saline. Cefuroxime was started due to pyuria/bacteruria; however, the patient denies any urinary symtpoms. This history was taken in Icelandic from the patient. Review of Systems 2 Review of Systems: Yes all other systems are reviewed and are negative [facility] Medical History Symptomatic anemia Hypertension Brain lesion Iron deficiency anemia HLD (hyperlipidemia) Anemia Depression Type 2 diabetes mellitus Family History Other Hypertension Social History Household Members: Family Household Members Other:: Daughter Housing: Apartment Do you presently have visiting nurse or other [facility] Unable to assess alcohol history related to: Unable to respond Alcohol intake: never Patient Tobacco Use Status: Never used Tobacco Smoked in Last 30 Days: No e-Cigarette/Vaping Use: Never Used Second Hand Smoke Exposure: No Use of substances other than those prescribed or required for medical reasons: No Advance Directives: Yes Advance Directives on File: Yes Advance Directives Date on File: 06/19/21 Patient : No service: No Current occupational status: unemployed Meds Allergies Allergy/AdvReac Type Severity Reaction Status Date / Time shrimp Allergy Swelling Verified 06/19/23 14:37 Active Medications: Current Medications Acetaminophen (Acetaminophen 325 Mg Tablet) 650 mg PO Q6H PRN PRN Reason: Pain, Mild (Pain Scale 1-3) Dextrose (Dextrose 50 % 25 Gm/50 Ml Syringe) 25 gm IVPUSH Q15M PRN; Protocol PRN Reason: per Hypoglycemia Standing Ord. Enoxaparin Sodium (Enoxaparin Sodium 40 Mg/0.4 Ml Syringe) 40 mg SUBCUT Q24H [facility] Glucose (Glucose Gel 15 Gm Gel..Gram.) 15 gm PO Q15M PRN; Protocol PRN Reason: per Hypoglycemia Standing Ord. Sodium Chloride (Ns) 1,000 mls @ 100 mls/hr IVCONT .Q10H [facility] Last Admin: 06/20/23 08:31 Dose: 100 mls/hr Insulin Human Lispro (Insulin Lispro 100 Unit/Ml 3 Ml Vial) 0 unit SUBCUT QIDACHS [facility]; Protocol Ondansetron HCl (Ondansetron Hcl 4 Mg/2 Ml Vial) 4 mg IVPUSH Q8H PRN PRN Reason: Nausea and Vomiting Potassium Chloride (Potassium Chloride Er 20 Meq Tab.Er.Prt) 20 meq PO BID [facility] Stop: 06/27/23 08:59 Last Admin: 06/20/23 08:45 Dose: 20 meq Home Medications Medication Instructions Recorded Confirmed Last Taken Type aspirin 81 mg tablet,delayed 1 tab PO DAILY 07/21/22 01/21/23 10/17/22 History release insulin glargine 100 unit/mL (3 18 unit subcut BEDTIME 07/21/22 01/21/23 10/17/22 History mL) subcutaneous pen (Lantus Solostar U-100 Insulin) insulin lispro 100 unit/mL See Protocol subcut TIDAC 07/21/22 01/21/23 10/17/22 History subcutaneous pen pioglitazone 30 mg tablet 1 tab PO DAILY 07/21/22 01/21/23 10/17/22 History gabapentin 300 mg capsule 300 mg PO TID 12/17/22 01/21/23 Unknown History lisinopril 10 mg tablet 10 mg PO QAM 12/17/22 01/21/23 Unknown History polyethylene glycol 3350 17 17 g PO DAILY 12/17/22 01/21/23 Unknown History gram/dose oral powder (Gavilax) rosuvastatin 40 mg tablet 40 mg PO [facility] 12/17/22 01/21/23 Unknown History sennosides 8.6 mg-docusate sodium 1 tab PO QA 12/17/22 01/21/23 Unknown History 50 mg tablet (Stimulant Laxative Plus) Physical Exam 2 Vital Signs and Narrative: Vital Signs: Last Vital Signs Temp 98.0 F 06/20/23 08:35 Pulse 84 06/20/23 08:35 Resp 16 06/20/23 08:35 BP 114/83 06/20/23 08:35 Pulse Ox 97 06/20/23 08:35 O2 Del Method Room Air 06/20/23 08:35 BMI result Body Mass Index 22.6 Gen: in no acute distress HEENT: sclera anicteric, moist mucus membranes Neck: supple Lungs: clear to auscultation bilaterally Heart: regular rate and rhythm, no murmurs Abd: soft, non-tender, non-distended Ext: no edema Skin: warm/well-perfused Neuro: alert and oriented x3, no focal findings Psych: appropriate affect Results Labs 06/19/23 15:47 06/20/23 09:01 Labs: Laboratory Results - last 24 hr 06/19/23 06/19/23 06/19/23 15:43 15:47 21:20 MCV 85.5 MCH 30.1 MCHC 35.2 H RDW 12.4 Plt Count 123 L D MPV 8.1 L Immature Gran % (Auto) 0.1 Neut % (Auto) 53.2 Lymph % (Auto) 34.1 Gordon % (Auto) 9.1 Eos % (Auto) 3.1 Baso % (Auto) 0.4 Lymph # (Auto) 2.5 Gordon # (Auto) 0.7 Eos # (Auto) 0.2 Baso # (Auto) 0.0 Abs Immat Gran (auto) 0.01 Absolute Neuts (auto) 3.9 Absolute Nucleated RBC 0.000 Nucleated RBC % (auto) 0.0 PT 11.8 INR 1.0 Anion Gap 9 L Estim Creat Clear Calc 40.4 Estimated GFR 36 POC Glucose Random Glucose 112 Estimat Average Glucose 180 Hemoglobin A1c % 7.9 H Calcium 9.6 Magnesium 2.5 Total Bilirubin 0.4 AST 19 ALT 28 Alkaline Phosphatase 98 Troponin I High Sens 5.6 Total Protein 7.5 Albumin 3.7 Beta HCG, Quant 4 Urine Color Yellow Urine Appearance Turbid Urine pH 6.0 Ur Specific [place] 1.010 Urine Protein 100 (2+) H Urine Glucose (UA) 250 H Urine Ketones Negative Urine Blood Small (1+) H Urine Nitrite Negative Ur Leukocyte Esterase Large (3+) H Urine RBC 0-2 Urine WBC >50 H Ur Squamous Epith Cells 3-5 Urine Bacteria 4+ Hyaline Casts 3-5 COVID-19 (RICKY) Negative COVID-19 Clin Com See Note Influenza Type A (GIORGIO) Negative Influenza Type B (GIORGIO) Negative Influenza A & B Note See Note 06/20/23 06/20/23 07:26 09:01 MCV MCH MCHC RDW Plt Count MPV Immature Gran % (Auto) Neut % (Auto) Lymph % (Auto) Gordon % (Auto) Eos % (Auto) Baso % (Auto) Lymph # (Auto) Gordon # (Auto) Eos # (Auto) Baso # (Auto) Abs Immat Gran (auto) Absolute Neuts (auto) Absolute Nucleated RBC Nucleated RBC % (auto) PT INR Anion Gap 12 Estim Creat Clear Calc 43.6 Estimated GFR 40 POC Glucose 158 H Random Glucose 210 H Estimat Average Glucose Hemoglobin A1c % Calcium 9.5 Magnesium 2.4 Total Bilirubin AST ALT Alkaline Phosphatase Troponin I High Sens Total Protein Albumin Beta HCG, Quant Urine Color Urine Appearance Urine pH Ur Specific [place] Pool Urine Protein Urine Glucose (UA) Urine Ketones Urine Blood Urine Nitrite Ur Leukocyte Esterase Urine RBC Urine WBC Ur Squamous Epith Cells Urine Bacteria Hyaline Casts COVID-19 ([facility]ICKY) COVID-19 Clin Com Influenza Type A (GIORGIO) Influenza Type B (GIORGIO) Influenza A & B Note Imaging Radiologist's Impressions: Impressions Chest X-Ray 06/19/23 15:25 IMPRESSION: Clear lungs. Assessment and Plan (1) Hypokalemia: Status: Acute Plan 53yo with HTN, DM2, hx orthostatic hypotension, and hx ESBL UTI presenting with presyncope and found to have supine hypertension with orthostatic hypotension. Also hypokalemic supine hypertension/orthostatic hypotension - admit to telemetry. Consult Nephrology. Give amlodipine, d/c lisinopril. May require midodrine therapy. Give IV fluids. renal insufficiency - baseline appears to have increased. D/c lisinopril. Recheck BMP in AM. hypokalemia - replete KCl, recheck level in AM asymptomatic bacteruria - no ABX indicated DM2 - basal-bolus insulin VTE ppx - LMWH dispo - TBD code - full I anticipate that the patient will stay at least 2 midnights as an inpatient in the hospital due to the above reasons. It is neither reasonable nor safe to care for them in a less acute setting. Quality Stroke Does the patient have a stroke diagnosis?: No VTE Prior VTE?: No VTE Risk Level:: Medical - moderate - high VTE Device Contraindication: N/A - Device Ordered VTE Drug Contraindication: N/A - Med Ordered
[2023-06-20] MEDS: Enoxaparin Sodium 40 MG/0.4 ML SYRINGE SUBCUT (10:54)
--- NOTE | 2023-06-20 11:23 | PHA.MEDREC ---
Pharmacy Consult ? Medication Reconciliation Pharmacy has completed the medication reconciliation. Spoke to patient via live in housekeeper nanny and confirmed medication list. Patient said she only takes aspirin + rosuvastatin + the insulins (15 units of lantus at bedtime).
[2023-06-20 12:52] LABS: Glucose, Whole Blood 258 mg/dL (60-115)
[2023-06-20] MEDS: Insulin Lispro 100 UNIT/ML 3 ML VIAL SUBCUT ×2 (13:43→17:36)
--- NOTE | 2023-06-20 14:15 | PM.CNNEP ---
History of Present Illness Reason for Consult Consult date: 06/20/23 Reason for consult: DILLON Chief Complaint Chief complaint: Orthostasis Hypokalemia History of Present Illness Narrative: 53yo with HTN, DM2, hx orthostatic hypotension, and hx ESBL UTI presenting with 1d of dizziness and lightheadedness. She felt she was going to faint but no syncope. No recent vomiting or diarrhea. No fever. No dysuria or hematuria and no flank pain. No changes to antihypertensives, which are amlodipine and lisinopril. Home SBPs in the 110s, which for her is low. In the ED, initial BP was 151/61 and jay to 200/75. She was given 10 mg of IV labetalol. Orthostatics were floridly positive, with supine BP of 176/70, sitting BP of 114/59, and standing BP of 76/38. She was also noted to have low K at 2.7. Serum creatinine was 1.49, compared to 1.36 on 04/11/23 and 0.76 on 01/24/23. She was given 40 mEq of KCl IV and another 40 mEq of KCl PO. She was also given 1L of normal saline. Cefuroxime was started due to pyuria/bacteruria; however, the patient denies any urinary symptoms. She was admitted for further management. Nephrology is being consulted to assist in a clinically care during her current hospital stay. Review of Systems Review of Systems Yes all other systems are reviewed and are negative [facility] Past Medical History Medical History Symptomatic anemia Hypertension Brain lesion Iron deficiency anemia HLD (hyperlipidemia) Anemia Depression Type 2 diabetes mellitus Family History Family History Other Hypertension Social History Social History Household Members: Family Household Members Other:: Daughter Housing: Apartment Do you presently have visiting nurse or other home services: Yes ([facility]) Unable to assess alcohol history related to: Unable to respond Alcohol intake: never Patient Tobacco Use Status: Never used Tobacco Smoked in Last 30 Days: No e-Cigarette/Vaping Use: Never Used Second Hand Smoke Exposure: No Use of substances other than those prescribed or required for medical reasons: No Advance Directives: Yes Advance Directives on File: Yes Advance Directives Date on File: 06/19/21 Patient : No service: No Current occupational status: unemployed Meds Allergies Allergy/AdvReac Type Severity Reaction Status Date / Time shrimp Allergy Swelling Verified 06/19/23 14:37 Active Medications: Current Medications Acetaminophen (Acetaminophen 325 Mg Tablet) 650 mg PO Q6H PRN PRN Reason: Pain, Mild (Pain Scale 1-3) Dextrose (Dextrose 50 % 25 Gm/50 Ml Syringe) 25 gm IVPUSH Q15M PRN; Protocol PRN Reason: per Hypoglycemia Standing Ord. Enoxaparin Sodium (Enoxaparin Sodium 40 Mg/0.4 Ml Syringe) 40 mg SUBCUT Q24H [facility] Last Admin: 06/20/23 10:54 Dose: 40 mg Glucose (Glucose Gel 15 Gm Gel..Gram.) 15 gm PO Q15M PRN; Protocol PRN Reason: per Hypoglycemia Standing Ord. Sodium Chloride (Ns) 1,000 mls @ 100 mls/hr IVCONT .Q10H [facility] Last Admin: 06/20/23 08:31 Dose: 100 mls/hr Insulin Human Lispro (Insulin Lispro 100 Unit/Ml 3 Ml Vial) 0 unit SUBCUT QIDACHS [facility]; Protocol Last Admin: 06/20/23 13:43 Dose: 6 unit Ondansetron HCl (Ondansetron Hcl 4 Mg/2 Ml Vial) 4 mg IVPUSH Q8H PRN PRN Reason: Nausea and Vomiting Potassium Chloride (Potassium Chloride Er 20 Meq Tab.Er.Prt) 20 meq PO BID [facility] Stop: 06/27/23 08:59 Last Admin: 06/20/23 08:45 Dose: 20 meq Home Medications Medication Instructions Recorded Confirmed Last Taken Type aspirin 81 mg tablet,delayed 1 tab PO DAILY 07/21/22 06/20/23 06/19/23 History release insulin glargine 100 unit/mL (3 15 unit subcut BEDTIME 07/21/22 06/20/23 06/19/23 History mL) subcutaneous pen (Lantus Solostar U-100 Insulin) insulin lispro 100 unit/mL See Protocol subcut TIDAC 07/21/22 06/20/23 06/19/23 History subcutaneous pen rosuvastatin 40 mg tablet 40 mg PO QAM 12/17/22 06/20/23 06/19/23 History Physical Exam Vital Signs: Last Vital Signs Temp 98.0 F 06/20/23 12:07 Pulse 82 06/20/23 12:07 Resp 13 06/20/23 12:07 BP 161/60 H 06/20/23 12:07 Pulse Ox 98 06/20/23 12:07 O2 Del Method Room Air 06/20/23 12:07 BMI result Body Mass Index 22.6 Const General: comfortable and no acute distress Orientation/consciousness: patient oriented x3 HEENT Head: Yes normocephalic Mouth: Normal oral and palatal mucosa present Eyes EOM: EOMs intact bilaterally Neck Neck: Yes supple Resp Auscultation: clear to auscultation bilaterally Cardio Jugular venous distension: no JVD Rate: regular rate GI Palpation (GI): Soft to palpation Auscultation: normal bowel sounds General: Yes no CVA tenderness Back/Spine/Pelvis Back: no CVA tenderness Skin General skin exam: no rashes or lesions noted Neuro General: patient oriented x3 and moves all extremities Extrem General: Yes no pedal edema Results Lab Results 06/19/23 15:47 06/20/23 09:01 Lab results: Chemistry 06/19/23 06/20/23 15:47 09:01 Sodium 144 142 Potassium 2.7 L* 3.3 D Carbon Dioxide 30 H 25 BUN 15 14 Creatinine 1.49 H 1.38 Calcium 9.6 9.5 Hematology 06/19/23 15:47 WBC 7.4 Hgb 10.2 L Plt Count 123 L D Urinalysis 06/19/23 21:20 Urine Color Yellow Urine Appearance Turbid Urine pH 6.0 Ur Specific [place] 1.010 Urine Protein 100 (2+) H Urine Glucose (UA) 250 H Urine Ketones Negative Urine Blood Small (1+) H Urine Nitrite Negative Ur Leukocyte Esterase Large (3+) H Urine RBC 0-2 Urine WBC >50 H Ur Squamous Epith Cells 3-5 Hyaline Casts 3-5 Assessment and Plan (1) Acute kidney injury: Status: Acute Plan Queta has DILLON due to compromised renal perfusion. She had been on HOLGER-inhibitor. She might have had altered autoregulation the kidney. We have discontinued her HOLGER-inhibitor. She has orthostasis. Will give her intravenous fluids. When her blood pressure is up we will keep her on amlodipine and continue to hold her HOLGER inhibitor for now. Potassium has been replaced. Her urine output is good. There is no reason to suspect any obstructive uropathy, new acute glomerular or interstitial pathology causing DILLON. We shall closely monitor her electrolytes and renal functions during hospital stay. I will arrange her to follow-up with me in the office once she gets discharged. Procedures Date of Service Date of Service: 06/20/23
[2023-06-20 17:35] LABS: Glucose, Whole Blood 236 mg/dL (60-115)
[2023-06-20 19:26] LABS: Glucose, Whole Blood 210 mg/dL (60-115)
[2023-06-20 19:48] LABS: Glucose, Whole Blood 189 mg/dL (60-115)
[2023-06-21] VITALS (9 sets, daily range): BP systolic 105–166; BP diastolic 51–90; PULSE 80–88; RESP 16–20; TEMP 35.8–37.1; O2SAT 97–100
[2023-06-21] MEDS: 0.9 % Sodium Chloride 1,000 ML 100 ML IVCONT ×3 (01:45→21:23)
[2023-06-21 06:42] LABS: Hematocrit 27.8 % (37.0-47.0); Hemoglobin 9.8 g/dl (12.0-16.0); Mean Corpuscular HGB Conc 35.3 g/dl (31.0-35.0); Mean Corpuscular Hemoglobin 30.2 pg (27.0-33.0); Mean Corpuscular Volume 85.8 fL (80.0-98.0); Mean Platelet Volume 8.9 fL (9.4-12.3); Platelet Count 140 X10*3/uL (160-400); Red Blood Count 3.24 X10*6/uL (4.20-5.50); Red Cell Distribution Width 12.3 % (11.0-16.0); White Blood Count 7.9 X10*3/uL (4.8-10.8)
[2023-06-21 07:00] LABS: Anion Gap 10 (12-20); Blood Urea Nitrogen 14 mg/dL (9-16); Calcium 9.2 mg/dL (8.4-10.2); Carbon Dioxide 26 mmol/L (22-29); Chloride 108 mmol/L (96-108); Creatinine Clr Calc Pharmacy 48.1; Estimated Glomerular Filt Rate 45; Glucose Random 239 mg/dL (60-115); Magnesium 2.4 mg/dL (1.6-2.6); Potassium 3.8 mmol/L (3.3-5.1); Sodium 140 mmol/L (135-145)
[2023-06-21 07:01] LABS: HCG Quantitative 3 mIU/mL
[2023-06-21 07:30] LABS: Glucose, Whole Blood 237 mg/dL (60-115)
[2023-06-21] MEDS: Insulin Lispro 100 UNIT/ML 3 ML VIAL SUBCUT ×4 (08:09→21:22)
[2023-06-21] MEDS: Potassium Chloride ER 20 MEQ TAB.ER.PRT PO (08:09)
[2023-06-21] MEDS: Enoxaparin Sodium 40 MG/0.4 ML SYRINGE SUBCUT (08:09)
--- NOTE | 2023-06-21 08:52 | MHC.CM.PN ---
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 PT VERIFIES HCP/PCP ON FILE ARE CORRECT AND DENIES RECEIVING ANY COVID VACCINES AND DOES NOT WANT ONE.
[2023-06-21] MEDS: Aspirin Enteric Coated 81 MG TABLET.DR PO (10:36)
[2023-06-21] MEDS: Atorvastatin Calcium 80 MG TABLET PO (10:36)
[2023-06-21] MEDS: amLODIPine Besylate 5 MG TABLET PO (10:36)
[2023-06-21 11:15] LABS: Glucose, Whole Blood 245 mg/dL (60-115)
--- NOTE | 2023-06-21 11:30 | P.PNIM_ITS ---
Subjective Subjective Date of Service: 06/21/23 Interval History: Feels better though still orthostatic This history was taken in Kazakh from the patient. Review of Systems Review of Systems: Yes all other systems are reviewed and are negative Physical Exam 2 Vital Signs: Vital Signs: Last Vital Signs Temp 97.9 F 06/21/23 11:01 Pulse 80 06/21/23 11:01 Resp 18 06/21/23 11:01 BP 162/80 H 06/21/23 11:01 Pulse Ox 99 06/21/23 11:01 O2 Del Method Room Air 06/21/23 11:01 BMI result Body Mass Index 22.6 Gen: in no acute distress HEENT: sclera anicteric, moist mucus membranes Neck: supple Lungs: clear to auscultation bilaterally Heart: regular rate and rhythm, no murmurs Abd: soft, non-tender, non-distended Ext: no edema Skin: warm/well-perfused Neuro: alert and oriented x3, no focal findings Psych: appropriate affect Objective Data Active Medications Acetaminophen (Acetaminophen 325 Mg Tablet) 650 mg PO Q6H PRN PRN Reason: Pain, Mild (Pain Scale 1-3) Amlodipine Besylate (Amlodipine Besylate 5 Mg Tablet) 5 mg PO DAILY [facility]; Protocol Last Admin: 06/21/23 10:36 Dose: 5 mg Documented By: KAUR Aspirin (Aspirin Enteric Coated 81 Mg Tablet.Dr) 81 mg PO DAILY [facility] Last Admin: 06/21/23 10:36 Dose: 81 mg Documented By: KAUR Atorvastatin Calcium (Atorvastatin Calcium 80 Mg Tablet) 80 mg PO DAILY [facility] Last Admin: 06/21/23 10:36 Dose: 80 mg Documented By: KAUR Dextrose (Dextrose 50 % 25 Gm/50 Ml Syringe) 25 gm IVPUSH Q15M PRN; Protocol PRN Reason: per Hypoglycemia Standing Ord. Enoxaparin Sodium (Enoxaparin Sodium 40 Mg/0.4 Ml Syringe) 40 mg SUBCUT Q24H [facility] Last Admin: 06/21/23 08:09 Dose: 40 mg Documented By: KAUR Glucose (Glucose Gel 15 Gm Gel..Gram.) 15 gm PO Q15M PRN; Protocol PRN Reason: per Hypoglycemia Standing Ord. Sodium Chloride (Ns) 1,000 mls @ 100 mls/hr IVCONT .Q10H [facility] Last Admin: 06/21/23 01:45 Dose: 100 mls/hr Documented By: RANDOLPH Insulin Glargine (Insulin Glargine,Hum.Rec.Anlog 100 Unit/Ml 10 Ml Vial) 15 unit SUBCUT BEDTIME [facility] Insulin Human Lispro (Insulin Lispro 100 Unit/Ml 3 Ml Vial) 0 unit SUBCUT QIDACHS [facility]; Protocol Last Admin: 06/21/23 08:09 Dose: 1 unit Documented By: KAUR Ondansetron HCl (Ondansetron Hcl 4 Mg/2 Ml Vial) 4 mg IVPUSH Q8H PRN PRN Reason: Nausea and Vomiting Labs 06/21/23 06:15 06/21/23 06:15 Labs: Laboratory Results - last 24 hr 06/20/23 06/20/23 06/20/23 12:48 17:31 19:19 MCV MCH MCHC RDW Plt Count MPV Absolute Nucleated RBC Nucleated RBC % (auto) Anion Gap Estim Creat Clear Calc Estimated GFR POC Glucose 258 H 236 H 210 H Random Glucose Calcium Magnesium Beta HCG, Quant 06/20/23 06/21/23 06/21/23 19:44 06:15 07:11 MCV 85.8 MCH 30.2 MCHC 35.3 H RDW 12.3 Plt Count 140 L MPV 8.9 L Absolute Nucleated RBC 0.000 Nucleated RBC % (auto) 0.0 Anion Gap 10 L Estim Creat Clear Calc 48.1 Estimated GFR 45 POC Glucose 189 H 237 H Random Glucose 239 H Calcium 9.2 Magnesium 2.4 Beta HCG, Quant 3 06/21/23 11:04 MCV MCH MCHC RDW Plt Count MPV Absolute Nucleated RBC Nucleated RBC % (auto) Anion Gap Estim Creat Clear Calc Estimated GFR POC Glucose 245 H Random Glucose Calcium Magnesium Beta HCG, Quant Microbiology Microbiology Results: Microbiology 06/19/23 22:20 Urine Culture - Final Urine clean catch - Urine tyler top Klebsiella pneumoniae Assessment and Plan (1) Orthostatic hypotension: Status: Acute Plan d2 53yo with HTN, DM2, hx orthostatic hypotension, and hx ESBL UTI presenting with presyncope and found to have supine hypertension with orthostatic hypotension. Also hypokalemic supine hypertension/orthostatic hypotension - Nephrology following. Stopped lisinopril. Stop amlodipine. Continue IV fluids + recheck orthostatics tomorrow AM. This AM's BP 166/84 lying->105/51 standing. Suspect autonomic insufficiency from DM2. DILLON - SCr improving with IV fluids and stopping lisinopril. Recheck BMP in AM. 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 Quality Stroke Does the patient have a stroke diagnosis?: No VTE Prior VTE?: No VTE Risk Level:: Medical - moderate - high VTE Device Contraindication: N/A - Device Ordered VTE Drug Contraindication: N/A - Med Ordered
--- NOTE | 2023-06-21 11:39 | W.MHC.F2F ---
Service Date Service Date: 06/21/23 Encounter Date of encounter: 06/22/23 Reasons for Services Signs and symptoms assessed: Impaired Standing Balance,Muscle Weakness Reason for alf: other (BP monitoring) Reason for physical therapy: home safety and mobility, therapeutic exercises, gait/transfer training, assess need for DME, ADL training and energy conservation MD Overseeing Care: Rowan Feldman Homebound: Leaving the home is medically contraindicated at this time without the asist of a device and/or another person due th the listed conditions above and below. Reason homebound: other (orthostasis) Homebound supporting statement: Gait Training, Therapeutic Activities, Therapeutic Exercise, Patient Education, Safety,Balance Certification: Based on the above findings, I certify that this patient is confined to the home and needs intermittent alf care, physical therapy and/or speech therapy, or continues to need occupational therapy. The patient is under my care, and I have initiated the establishment of the plan of care. The patient will be followed by a physician who will periodically review the plan of care. Time Spent With Patient Time: Total time managing care of this patient today ____ minutes.
[2023-06-21 12:12] LABS: Immature Retic Fraction 16.7 % (3.0-15.9); Retic HGB Equivalent 33.6 pg (30.0-35.0); Reticulocyte Percent 1.9 % (0.5-1.8); Reticulocytes Absolute 0.061 X10*6/uL (0.026-0.095)
[2023-06-21 12:13] LABS: Iron 71 mcg/dL (30-160); Lactate Dehydrogenase 158 U/L (122-220); Percent Iron Saturation 35 % (15-50); Total Iron Binding Capacity 202 mcg/dL (228-428); Unsaturated Iron Binding 131 ug/dL
[2023-06-21 12:31] LABS: Ferritin 190 ng/mL (10-250)
[2023-06-21 15:35] LABS: Glucose, Whole Blood 219 mg/dL (60-115)
--- NOTE | 2023-06-21 18:51 | P.PNNP_ITS ---
Subjective Subjective Date of Service: 06/21/23 Interval history: Feels better though still orthostatic. All recent data reviewed. Physical Exam 2 Vital Signs: Vital Signs: Last Vital Signs Temp 98.8 F 06/21/23 15:18 Pulse 82 06/21/23 15:18 Resp 16 06/21/23 15:18 BP 135/63 06/21/23 15:18 Pulse Ox 100 06/21/23 15:18 O2 Del Method Room Air 06/21/23 15:18 BMI result Body Mass Index 22.6 Const: General: comfortable and no acute distress O rientation/consciousness: patient oriented x3 HEENT: Head: Yes normocephalic Mouth: Normal oral and palatal mucosa present Eyes: EOM: EOMs intact bilaterally Neck: Neck: Yes supple Resp: Auscultation: clear to auscultation bilaterally Cardio: Jugular venous distension: no JVD Rate: regular rate GI: Palpation (GI): Soft to palpation Auscultation: normal bowel sounds : General: Yes no CVA tenderness Back/Spine/Pelvis: Back: no CVA tenderness Skin: General skin exam: no rashes or lesions noted Neuro: General: patient oriented x3 and moves all extremities Extrem: General: Yes no pedal edema Objective Data Labs 06/21/23 06:15 06/21/23 06:15 Labs: Laboratory Results - last 24 hr 06/20/23 06/20/23 06/21/23 19:19 19:44 06:15 WBC 7.9 RBC 3.24 L Hgb 9.8 L Hct 27.8 L MCV 85.8 MCH 30.2 MCHC 35.3 H RDW 12.3 Plt Count 140 L MPV 8.9 L Absolute Nucleated RBC 0.000 Nucleated RBC % (auto) 0.0 Absolute Retic 0.061 Percent Retic 1.9 H Immature Retic Fraction 16.7 H Retic Hgb Equivalent 33.6 Sodium 140 Potassium 3.8 Chloride 108 Carbon Dioxide 26 Anion Gap 10 L BUN 14 Creatinine 1.25 Estim Creat Clear Calc 48.1 Estimated GFR 45 POC Glucose 210 H 189 H Random Glucose 239 H Calcium 9.2 Magnesium 2.4 Iron 71 TIBC 202 L % Saturation 35 Unsat Iron Binding 131 Ferritin 190 Lactate Dehydrogenase 158 Beta HCG, Quant 3 06/21/23 06/21/23 06/21/23 07:11 11:04 15:22 WBC RBC Hgb Hct MCV MCH MCHC RDW Plt Count MPV Absolute Nucleated RBC Nucleated RBC % (auto) Absolute Retic Percent Retic Immature Retic Fraction Retic Hgb Equivalent Sodium Potassium Chloride Carbon Dioxide Anion Gap BUN Creatinine Estim Creat Clear Calc Estimated GFR POC Glucose 237 H 245 H 219 H Random Glucose Calcium Magnesium Iron TIBC % Saturation Unsat Iron Binding Ferritin Lactate Dehydrogenase Beta HCG, Quant Microbiology Microbiology Results: Microbiology 06/19/23 22:20 Urine clean catch - Urine tyler top Urine Culture - Final Klebsiella pneumoniae Procedures Date of Service Date of Service: 06/21/23 Assessment & Plan Assessment and plan (1) Acute kidney injury: Status: Acute Plan Queta has DILLON due to compromised renal perfusion. She had been on HOLGER- inhibitor. She might have had altered autoregulation the kidney. We have discontinued her HOLGER-inhibitor. She has orthostasis. Will give her intravenous fluids. When her blood pressure is up we will keep her on amlodipine and continue to hold her HOLGER inhibitor for now. Ordered cortisol AM. Her urine output is good. There is no reason to suspect any obstructive uropathy, new acute glomerular or interstitial pathology causing DILLON. We shall closely monitor her electrolytes and renal functions during hospital stay. I will arrange her to follow-up with me in the office once she gets discharged Progress Note: Quality Stroke Does the patient have a stroke diagnosis?: No
[2023-06-21 19:32] LABS: Glucose, Whole Blood 260 mg/dL (60-115)
[2023-06-21] MEDS: Insulin Glargine,Hum.rec.anlog 100 UNIT/ML 10 ML VIAL 15 UNIT SUBCUT (21:23)
[2023-06-22] VITALS (8 sets, daily range): BP systolic 81–158; BP diastolic 48–84; PULSE 77–91; RESP 16–20; TEMP 36.1–36.7; O2SAT 97–98
[2023-06-22 07:45] LABS: Glucose, Whole Blood 175 mg/dL (60-115)
[2023-06-22 08:10] LABS: Anion Gap 8 (12-20); Blood Urea Nitrogen 13 mg/dL (9-16); Calcium 9.4 mg/dL (8.4-10.2); Carbon Dioxide 26 mmol/L (22-29); Chloride 110 mmol/L (96-108); Creatinine Clr Calc Pharmacy 54.7; Estimated Glomerular Filt Rate 52; Glucose Random 190 mg/dL (60-115); Sodium 140 mmol/L (135-145)
[2023-06-22] MEDS: Atorvastatin Calcium 80 MG TABLET PO (08:17)
[2023-06-22] MEDS: Enoxaparin Sodium 40 MG/0.4 ML SYRINGE SUBCUT (08:17)
[2023-06-22] MEDS: Insulin Lispro 100 UNIT/ML 3 ML VIAL SUBCUT ×4 (08:17→21:54)
[2023-06-22] MEDS: amLODIPine Besylate 5 MG TABLET PO (08:17)
[2023-06-22] MEDS: Aspirin Enteric Coated 81 MG TABLET.DR PO (08:17)
[2023-06-22] MEDS: 0.9 % Sodium Chloride 1,000 ML 100 ML IVCONT ×2 (08:18→21:53)
[2023-06-22 08:49] LABS: Folate 11.7 ng/mL (> or = 4.0); Vitamin B12 329 pg/mL (200-900)
[2023-06-22 11:47] LABS: Glucose, Whole Blood 296 mg/dL (60-115)
--- NOTE | 2023-06-22 13:05 | HO.PM.IMPN ---
Subjective Subjective Date of Service: 06/22/23 Interval History: still lightheaded with standing am cortisol 2 This history was taken in Bangladeshi from the patient. Review of Systems Review of Systems: Yes all other systems are reviewed and are negative Physical Exam Vital Signs: Vital Signs: Last Vital Signs Temp 97.3 F 06/22/23 11:28 Pulse 81 06/22/23 11:28 Resp 18 06/22/23 11:28 BP 154/84 H 06/22/23 11:28 Pulse Ox 98 06/22/23 11:28 O2 Del Method Room Air 06/22/23 11:28 BMI result Body Mass Index 22.6 Gen: in no acute distress HEENT: sclera anicteric, moist mucus membranes Neck: supple Lungs: clear to auscultation bilaterally Heart: regular rate and rhythm, no murmurs Abd: soft, non-tender, non-distended Ext: no edema Skin: warm/well-perfused Neuro: alert and oriented x3, no focal findings Psych: appropriate affect Objective Data Active Medications Acetaminophen (Acetaminophen 325 Mg Tablet) 650 mg PO Q6H PRN PRN Reason: Pain, Mild (Pain Scale 1-3) Amlodipine Besylate (Amlodipine Besylate 5 Mg Tablet) 5 mg PO DAILY [facility]; Protocol Last Admin: 06/22/23 08:17 Dose: 5 mg Documented By: SURAJ Aspirin (Aspirin Enteric Coated 81 Mg Tablet.) 81 mg PO DAILY [facility] Last Admin: 06/22/23 08:17 Dose: 81 mg Documented By: SURAJ Atorvastatin Calcium (Atorvastatin Calcium 80 Mg Tablet) 80 mg PO DAILY [facility] Last Admin: 06/22/23 08:17 Dose: 80 mg Documented By: SURAJ Cosyntropin (Cosyntropin 0.25 Mg Vial) 0.25 mg IVPUSH ONCE ONE Stop: 06/23/23 08:01 Dextrose (Dextrose 50 % 25 Gm/50 Ml Syringe) 25 gm IVPUSH Q15M PRN; Protocol PRN Reason: per Hypoglycemia Standing Ord. Enoxaparin Sodium (Enoxaparin Sodium 40 Mg/0.4 Ml Syringe) 40 mg SUBCUT Q24H [facility] Last Admin: 06/22/23 08:17 Dose: 40 mg Documented By: SURAJ Glucose (Glucose Gel 15 Gm Gel..Gram.) 15 gm PO Q15M PRN; Protocol PRN Reason: per Hypoglycemia Standing Ord. Sodium Chloride (Ns) 1,000 mls @ 100 mls/hr IVCONT .Q10H [facility] Last Admin: 06/22/23 08:18 Dose: 100 mls/hr Documented By: SURAJ Insulin Glargine (Insulin Glargine,Hum.Rec.Anlog 100 Unit/Ml 10 Ml Vial) 15 unit SUBCUT BEDTIME [facility] Last Admin: 06/21/23 21:23 Dose: 15 unit Documented By: DEVAN Insulin Human Lispro (Insulin Lispro 100 Unit/Ml 3 Ml Vial) 0 unit SUBCUT QIDACHS [facility]; Protocol Last Admin: 06/22/23 12:00 Dose: 6 unit Documented By: SURAJ Ondansetron HCl (Ondansetron Hcl 4 Mg/2 Ml Vial) 4 mg IVPUSH Q8H PRN PRN Reason: Nausea and Vomiting Labs 06/21/23 06:15 06/22/23 07:04 Labs: Laboratory Results - last 24 hr 06/21/23 06/21/23 06/22/23 15:22 19:28 07:04 Hold Purple Top SEE NOTE Anion Gap 8 L Estim Creat Clear Calc 54.7 Estimated GFR 52 POC Glucose 219 H 260 H Random Glucose 190 H Calcium 9.4 Vitamin B12 329 Folate 11.7 Random Cortisol 2.0 06/22/23 06/22/23 07:13 11:17 Hold Purple Top Anion Gap Estim Creat Clear Calc Estimated GFR POC Glucose 175 H 296 H Random Glucose Calcium Vitamin B12 Folate Random Cortisol Assessment and Plan (1) Orthostatic hypotension: Status: Acute Plan d3 53yo with HTN, DM2, hx orthostatic hypotension, and hx ESBL UTI presenting with presyncope and found to have supine hypertension with orthostatic hypotension. Also hypokalemic supine hypertension/orthostatic hypotension - Nephrology following. Stopped lisinopril. Continue amlodipine. Continue IV fluids + recheck orthostatics tomorrow AM. Suspect autonomic insufficiency from DM2 but cortisol is surprisingly low at 2. Will perform formal ACTH stim test tomorrow. DILLON - SCr improved with IV fluids and stopping lisinopril. 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 Quality Stroke Does the patient have a stroke diagnosis?: No VTE Prior VTE?: No VTE Risk Level:: Medical - moderate - high VTE Device Contraindication: N/A - Device Ordered VTE Drug Contraindication: N/A - Med Ordered
[2023-06-22 16:42] LABS: Glucose, Whole Blood 323 mg/dL (60-115)
[2023-06-22 20:13] LABS: Glucose, Whole Blood 228 mg/dL (60-115)
[2023-06-22] MEDS: Insulin Glargine,Hum.rec.anlog 100 UNIT/ML 10 ML VIAL 15 UNIT SUBCUT (21:54)
[2023-06-23] VITALS (9 sets, daily range): BP systolic 91–185; BP diastolic 52–77; PULSE 82–97; RESP 16–20; TEMP 36.3–37.2; O2SAT 97–99
[2023-06-23 07:35] LABS: Glucose, Whole Blood 165 mg/dL (60-115)
[2023-06-23] MEDS: Insulin Lispro 100 UNIT/ML 3 ML VIAL SUBCUT ×4 (08:09→21:55)
[2023-06-23] MEDS: Enoxaparin Sodium 40 MG/0.4 ML SYRINGE SUBCUT (08:10)
[2023-06-23] MEDS: amLODIPine Besylate 5 MG TABLET PO (08:10)
[2023-06-23] MEDS: Atorvastatin Calcium 80 MG TABLET PO (08:10)
[2023-06-23] MEDS: Cosyntropin 0.25 MG VIAL IVPUSH (08:29)
[2023-06-23] MEDS: Aspirin Enteric Coated 81 MG TABLET.DR PO (09:43)
--- NOTE | 2023-06-23 10:41 | HO.PM.IMPN ---
Subjective Subjective Date of Service: 06/23/23 Interval History: Complaining of dizziness that last for few seconds that occurs at rest and with change in position, denies headache, no fevers, no chills no earache, no sinus pressure , no nausea no vomiting tolerating diet, no diarrhea. Review of Systems All other system reviewed and negative. Physical Exam Vital Signs: Vital Signs: Last Vital Signs Temp 97.7 F 06/23/23 07:50 Pulse 83 06/23/23 07:50 Resp 20 06/23/23 07:50 BP 160/77 H 06/23/23 07:50 Pulse Ox 99 06/23/23 07:50 O2 Del Method Room Air 06/23/23 07:50 BMI result Body Mass Index 22.6 Const: Other: Gen: in no acute distress HEENT: sclera anicteric, moist mucus membranes,no nystagmus Neck: supple Lungs: clear to auscultation bilaterally Heart: regular rate and rhythm, no murmurs Abd: soft, non-tender, non-distended, bowel sounds audible Ext: no edema Skin: warm/well-perfused Neuro: alert and oriented x3, no focal findings Psych: appropriate affect Objective Data Active Medications Acetaminophen (Acetaminophen 325 Mg Tablet) 650 mg PO Q6H PRN PRN Reason: Pain, Mild (Pain Scale 1-3) Amlodipine Besylate (Amlodipine Besylate 5 Mg Tablet) 5 mg PO DAILY [facility]; Protocol Last Admin: 06/23/23 08:10 Dose: 5 mg Documented By: PODMORP Aspirin (Aspirin Enteric Coated 81 Mg Tablet.) 81 mg PO DAILY [facility] Last Admin: 06/23/23 09:43 Dose: 81 mg Documented By: PODMORP Atorvastatin Calcium (Atorvastatin Calcium 80 Mg Tablet) 80 mg PO DAILY [facility] Last Admin: 06/23/23 08:10 Dose: 80 mg Documented By: MASONMORP Dextrose (Dextrose 50 % 25 Gm/50 Ml Syringe) 25 gm IVPUSH Q15M PRN; Protocol PRN Reason: per Hypoglycemia Standing Ord. Enoxaparin Sodium (Enoxaparin Sodium 40 Mg/0.4 Ml Syringe) 40 mg SUBCUT Q24H [facility] Last Admin: 06/23/23 08:10 Dose: 40 mg Documented By: PODMORP Glucose (Glucose Gel 15 Gm Gel..Gram.) 15 gm PO Q15M PRN; Protocol PRN Reason: per Hypoglycemia Standing Ord. Sodium Chloride (Ns) 1,000 mls @ 100 mls/hr IVCONT .Q10H [facility] Last Admin: 06/22/23 21:53 Dose: 100 mls/hr Documented By: VISHNU Insulin Glargine (Insulin Glargine,Hum.Rec.Anlog 100 Unit/Ml 10 Ml Vial) 15 unit SUBCUT BEDTIME [facility] Last Admin: 06/22/23 21:54 Dose: 15 unit Documented By: VISHNU Insulin Human Lispro (Insulin Lispro 100 Unit/Ml 3 Ml Vial) 0 unit SUBCUT QIDACHS [facility]; Protocol Last Admin: 06/23/23 08:09 Dose: 2 unit Documented By: PODMORP Ondansetron HCl (Ondansetron Hcl 4 Mg/2 Ml Vial) 4 mg IVPUSH Q8H PRN PRN Reason: Nausea and Vomiting Labs 06/21/23 06:15 06/22/23 07:04 Labs: Laboratory Results - last 24 hr 06/22/23 06/22/23 06/22/23 11:17 16:11 20:07 POC Glucose 296 H 323 H 228 H 06/23/23 07:14 POC Glucose 165 H Assessment and Plan (1) Acute kidney injury: Status: Acute (2) Hypokalemia: Status: Acute Plan 53yo with HTN, DM2, hx orthostatic hypotension, and hx ESBL UTI presenting with presyncope and found to have supine hypertension with orthostatic hypotension. Also hypokalemic Supine hypertension/orthostatic hypotension Complaining of intermittent dizziness lasting for short duration Follow orthostatic BP, Stopped lisinopril. Continue amlodipine. Continue teds/recommend to get up slowly from sitting position Will DC IV fluids,Suspect autonomic insufficiency from DM2 but cortisol is surprisingly low at 2. ACTH stim test pending. Encourage out of bed to chair DILLON - SCr improved with IV fluids and stopping lisinopril, follow BMP. hypokalemia - repleted Klebsiella pneumonia UTI will treat with IV ceftriaxone. hCG elevated - initial 4, repeat @ 36 hr 3; per discussion OB-[employer] likely false elevation due to high LH from meonpause DM2 stable blood sugars continue basal-bolus insulin VTE ppx - LMWH dispo - anticipate home with VNA/seen by Physical therapy they recommend home PT to maximize function and safety. In my clinical judgment, the patient requires continued inpatient hospitalization for the following reasons: orthostasis on IV fluids, ACTH stim test. Quality Stroke Does the patient have a stroke diagnosis?: No VTE Prior VTE?: No VTE Risk Level:: Medical - moderate - high VTE Device Contraindication: N/A - Device Ordered VTE Drug Contraindication: N/A - Med Ordered
[2023-06-23 11:31] LABS: Glucose, Whole Blood 239 mg/dL (60-115)
[2023-06-23] MEDS: 0.9 % Sodium Chloride 1,000 ML 100 ML IVCONT (11:35)
[2023-06-23] MEDS: cefTRIAXone sodium 1 GM in 0.9 % Sodium Chloride 50 ML IV (13:29)
[2023-06-23 16:30] LABS: Glucose, Whole Blood 384 mg/dL (60-115)
[2023-06-23 21:52] LABS: Glucose, Whole Blood 272 mg/dL (60-115)
[2023-06-23] MEDS: Insulin Glargine,Hum.rec.anlog 100 UNIT/ML 10 ML VIAL 15 UNIT SUBCUT (21:56)
[2023-06-24] VITALS (13 sets, daily range): BP systolic 64–186; BP diastolic 42–84; PULSE 74–100; RESP 18–20; TEMP 36.1–37.7; O2SAT 97–100
[2023-06-24 07:15] LABS: Cholesterol 113 mg/dL (<200); HDL Cholesterol 41 mg/dL (>40); LDL Cholesterol Calculated 55 mg/dL (<100); Triglycerides 89 mg/dL (<150)
[2023-06-24 07:47] LABS: Glucose, Whole Blood 149 mg/dL (60-115)
[2023-06-24 08:48] LABS: Cortisol 30 Minute 21.8 mcg/dL; Cortisol 60 Minute 26.6 mcg/dL; Cortisol Baseline 12.6 mcg/dL
[2023-06-24] MEDS: Aspirin Enteric Coated 81 MG TABLET.DR PO (11:19)
[2023-06-24] MEDS: amLODIPine Besylate 5 MG TABLET PO (11:19)
[2023-06-24] MEDS: Atorvastatin Calcium 80 MG TABLET PO (11:19)
[2023-06-24] MEDS: Enoxaparin Sodium 40 MG/0.4 ML SYRINGE SUBCUT (11:20)
[2023-06-24] MEDS: cefTRIAXone sodium 1 GM in 0.9 % Sodium Chloride 50 ML IV (11:20)
--- NOTE | 2023-06-24 12:27 | HO.PM.IMPN ---
Subjective Subjective Date of Service: 06/24/23 Interval History: Complaining of persistent dizziness she described it as room spinning with change in position mostly sitting up from lying position noted to have significantly positive orthostatic BP is this morning dizziness started 1 month ago last for few minutes, denies earache, no sinus pressure no fevers, no chills has chronic visual symptoms of decreased vision. Denies nausea vomiting, no abdominal pain, no diarrhea, no urinary symptoms. Review of Systems All other system reviewed and negative Physical Exam Vital Signs: Vital Signs: Last Vital Signs Temp 97.8 F 06/24/23 11:41 Pulse 99 06/24/23 11:41 Resp 20 06/24/23 11:41 BP 64/42 L 06/24/23 11:41 Pulse Ox 100 06/24/23 11:41 O2 Del Method Room Air 06/24/23 11:41 BMI result Body Mass Index 22.6 Const: Other: Gen: in no acute distress HEENT: sclera anicteric, moist mucus membranes,no nystagmus Neck: supple Lungs: clear to auscultation bilaterally Heart: regular rate and rhythm, no murmurs Abd: soft, non-tender, non-distended, bowel sounds audible Ext: no edema Skin: warm/well-perfused Neuro: alert and oriented x3, no focal findings Psych: appropriate affect Objective Data Active Medications Acetaminophen (Acetaminophen 325 Mg Tablet) 650 mg PO Q6H PRN PRN Reason: Pain, Mild (Pain Scale 1-3) Amlodipine Besylate (Amlodipine Besylate 5 Mg Tablet) 5 mg PO DAILY [facility]; Protocol Last Admin: 06/24/23 11:19 Dose: 5 mg Documented By: POLLO Aspirin (Aspirin Enteric Coated 81 Mg Tablet.) 81 mg PO DAILY [facility] Last Admin: 06/24/23 11:19 Dose: 81 mg Documented By: POLLO Atorvastatin Calcium (Atorvastatin Calcium 80 Mg Tablet) 80 mg PO DAILY [facility] Last Admin: 06/24/23 11:19 Dose: 80 mg Documented By: POLLO Dextrose (Dextrose 50 % 25 Gm/50 Ml Syringe) 25 gm IVPUSH Q15M PRN; Protocol PRN Reason: per Hypoglycemia Standing Ord. Enoxaparin Sodium (Enoxaparin Sodium 40 Mg/0.4 Ml Syringe) 40 mg SUBCUT Q24H [facility] Last Admin: 06/24/23 11:20 Dose: 40 mg Documented By: POLLO Glucose (Glucose Gel 15 Gm Gel..Gram.) 15 gm PO Q15M PRN; Protocol PRN Reason: per Hypoglycemia Standing Ord. Ceftriaxone Sodium 1 gm/ (Sodium Chloride) 50 mls @ 100 mls/hr IV Q24H [facility] Last Admin: 06/24/23 11:20 Dose: 100 mls/hr Documented By: POLLO Insulin Glargine (Insulin Glargine,Hum.Rec.Anlog 100 Unit/Ml 10 Ml Vial) 15 unit SUBCUT BEDTIME [facility] Last Admin: 06/23/23 21:56 Dose: 15 unit Documented By: CELESTE Insulin Human Lispro (Insulin Lispro 100 Unit/Ml 3 Ml Vial) 0 unit SUBCUT QIDACHS [facility]; Protocol Last Admin: 06/23/23 21:55 Dose: 6 unit Documented By: CELESTE Ondansetron HCl (Ondansetron Hcl 4 Mg/2 Ml Vial) 4 mg IVPUSH Q8H PRN PRN Reason: Nausea and Vomiting Labs 06/21/23 06:15 06/22/23 07:04 Labs: Laboratory Results - last 24 hr 06/23/23 06/23/23 06/23/23 08:02 16:27 21:47 POC Glucose 384 H* 272 H Triglycerides Cholesterol LDL Cholesterol, Calc HDL Cholesterol TSH Cortisol Baseline 12.6 Cortisol 30 Minute 21.8 Cortisol 60 Minute 26.6 ACTH Resp to Cosyntrop 08:03 Cortisol Petros Time 1 08:02 Cortisol Petros Time 2 09:00 Cortisol Petros Time 3 09:30 ACTH Comment See Below 06/24/23 06/24/23 06:12 07:32 POC Glucose 149 H Triglycerides 89 Cholesterol 113 LDL Cholesterol, Calc 55 HDL Cholesterol 41 TSH 1.00 Cortisol Baseline Cortisol 30 Minute Cortisol 60 Minute ACTH Resp to Cosyntrop Cortisol Petros Time 1 Cortisol Petros Time 2 Cortisol Petros Time 3 ACTH Comment Assessment and Plan (1) Acute kidney injury: Status: Acute (2) Hypokalemia: Status: Acute Plan 53yo with HTN, DM2, hx orthostatic hypotension, and hx ESBL UTI presenting with presyncope and found to have supine hypertension with orthostatic hypotension. Also hypokalemic Supine hypertension/orthostatic hypotension Complaining of intermittent dizziness lasting for short duration persistent orthostatic BP, significant drop in blood pressure with standing All Stopped lisinopril. Continue amlodipine. Continue teds/recommend to get up slowly from sitting position s/p IV fluids,Suspect autonomic insufficiency from DM2 but cortisol is surprisingly low at 2. follow ACTH stim test results Encourage out of bed to chair,push po fluids Will discuss further treatment plan with Nephrology Will DC Lipitor that can also cause dizziness Hyperlipidemia, LDL 55 total cholesterol 113 will DC Lipitor DILLON - SCr improved with IV fluids and stopping lisinopril, follow BMP. hypokalemia - repleted Klebsiella pneumonia UTI on IV ceftriaxone day2/. hCG elevated - initial 4, repeat @ 36 hr 3; per discussion [employer] likely false elevation due to high LH from meonpause DM2 stable blood sugars continue basal-bolus insulin VTE ppx - LMWH dispo - anticipate home with VNA/seen by Physical therapy they recommend home PT to maximize function and safety. In my clinical judgment, the patient requires continued inpatient hospitalization for the following reasons: orthostasis on IV fluids, ACTH stim test. Quality Stroke Does the patient have a stroke diagnosis?: No VTE Prior VTE?: No VTE Risk Level:: Medical - moderate - high VTE Device Contraindication: N/A - Device Ordered VTE Drug Contraindication: N/A - Med Ordered
[2023-06-24 12:29] LABS: Glucose, Whole Blood 220 mg/dL (60-115)
[2023-06-24] MEDS: Insulin Lispro 100 UNIT/ML 3 ML VIAL SUBCUT ×3 (12:59→20:54)
[2023-06-24 16:24] LABS: Glucose, Whole Blood 213 mg/dL (60-115)
[2023-06-24 20:25] LABS: Glucose, Whole Blood 231 mg/dL (60-115)
[2023-06-24] MEDS: Insulin Glargine,Hum.rec.anlog 100 UNIT/ML 10 ML VIAL 15 UNIT SUBCUT (20:54)
[2023-06-25] VITALS (10 sets, daily range): BP systolic 66–149; BP diastolic 40–76; PULSE 73–88; RESP 18; TEMP 36.3–37.1; O2SAT 98–100
[2023-06-25 07:49] LABS: Glucose, Whole Blood 154 mg/dL (60-115)
[2023-06-25] MEDS: Enoxaparin Sodium 40 MG/0.4 ML SYRINGE SUBCUT (09:13)
[2023-06-25] MEDS: Insulin Lispro 100 UNIT/ML 3 ML VIAL SUBCUT ×2 (09:13→11:48)
[2023-06-25] MEDS: cefTRIAXone sodium 1 GM in 0.9 % Sodium Chloride 50 ML IV (09:14)
[2023-06-25] MEDS: Aspirin Enteric Coated 81 MG TABLET.DR PO (09:14)
--- NOTE | 2023-06-25 10:15 | P.DS_ITS ---
DS: Providers Provider Date of Service: 06/25/23 Date of admission: 06/20/23 08:47 Primary care physician: Rowan Feldman NP Consults: 06/20/23 08:16 Consult to Nephrology Routine Consulting Provider: [facility] Reason for consultation: sever orthostatic hypotension DS: Diagnosis Discharge Diagnosis (1) Acute kidney injury: Status: Acute (2) Hypokalemia: Status: Acute DS: Summary Hospital Course Hospital Course: History of present illness: Date of Service: 06/20/23 Chief Complaint: dizzines 53yo with HTN, DM2, hx orthostatic hypotension, and hx ESBL UTI presenting with 1d of dizziness and lightheadedness. She felt she was going to faint but no syncope. No recent vomiting or diarrhea. No fever. No dysuria or hematuria and no flank pain. No changes to antihypertensives, which are amlodipine and lisinopril. Home SBPs in the 110s, which for her is low. In the ED, initial BP was 151/61 and jay to 200/75. She was given 10 mg of IV labetalol. Orthostatics were floirldy positive, with supine BP of 176/70, sitting BP of 114/59, and standing BP of 76/38. She was also noted to have low K at 2.7. Serum creatinine was 1.49, compared to 1.36 on 04/11/23 and 0.76 on 01/24/23. She was given 40 mEq of KCl IV and another 40 mEq of KCl PO. She was also given 1L of normal saline. Cefuroxime was started due to pyuria/bacteruria; however, the patient denies any urinary symtpoms. This history was taken in Nepali from the patient. Hospital course: 53yo with HTN, DM2, hx orthostatic hypotension, and hx ESBL UTI presenting with presyncope and found to have supine hypertension with orthostatic hypotension. Also hypokalemic Supine hypertension/orthostatic hypotension, admitted to medical floor noted to have orthostatic blood pressures treated with IV fluids Danilo stockings , noted to have low cortisol level therefore ACTH stimulation test was obtained that is within normal range, has normal TSH, lipid profile showed an LDL of 55 total cholesterol 113 therefore Lipitor discontinued, lisinopril discontinued patient repeat orthostatic blood pressures remains positive but significantly improved patient ambulated well with physical therapy they recommending home PT patient is now being discharged home with recommendations to use Danilo stockings, get up slowly from sitting position recommend to add salt in diet patient was evaluated by health tech Dr. Retana recommend to follow up with him in 1-2 weeks, patient was also noted to have acute kidney injury that improved with IV hydration, hypokalemia was repleted. Klebsiella pneumonia UTI treated with IV ceftriaxone and will discharge home on 2 more days of by mouth Ceftin. 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 Time Attestation Discharge coordination time: Greater than 30 minutes Quality: Safe Use of Opioids Does Pt have an Active Cancer Diagnosis on the Problem List?: No Quality: Stroke Does the patient have a stroke diagnosis?: No Physical Exam Vital Signs: Vital Signs: Last Vital Signs Temp 97.6 F 06/25/23 08:00 Pulse 76 06/25/23 08:00 Resp 18 06/25/23 08:00 BP 93/57 L 06/25/23 09:47 Pulse Ox 98 06/25/23 08:00 O2 Del Method Room Air 06/25/23 08:00 BMI result Body Mass Index 22.6 Const: Other: Gen: in no acute distress HEENT: sclera anicteric, moist mucus membranes,no nystagmus Neck: supple Lungs: clear to auscultation bilaterally Heart: regular rate and rhythm, no murmurs Abd: soft, non-tender, non-distended, bowel sounds audible Ext: no edema Skin: warm/well-perfused Neuro: alert and oriented x3, no focal findings Psych: appropriate affect DS: Data Data Completed and Pending Completed studies during hospitalization [Text1]: Procedures Transfusion of Nonautologous Red Blood Cells into Peripheral Vein, Percutaneous Approach (12/17/22) Labs on day of discharge: Laboratory Results - last 24 hr 06/24/23 06/24/23 06/24/23 11:35 16:16 20:11 POC Glucose 220 H 213 H 231 H 06/25/23 07:18 POC Glucose 154 H Discharge Plan Discharge Anticipated Discharge Date/Time: 06/22/23 11:41 Patient Disposition: Home Health Service Discharge Diagnosis: Orthostatic hypotension Acute kidney injury Referrals: [facility] [Outside] - 1 Day (HOME PHYSICAL THERAPY) Alberto Mills MD [Physician] - 1 Week Rowan Feldman NP [Primary Care Provider] - 1 Week Discharge Medications: New cefuroxime axetil 250 mg tablet 250 mg PO BID Qty: 4 0RF Continued aspirin 81 mg tablet,delayed release (DR/EC) 1 tab PO DAILY insulin lispro 100 unit/mL insulin pen See Protocol subcut TIDAC Protocol: Insulin Correction Scale Less than or equal to 110 ---- Give (units): 0 111 to 150 Give (units): 0 151 to 200 Give (units): 10 201 to 250 Give (units): 12 251 to 300 Give (units): 14 301 to 350 Give (units): 16 Greater than 350 Give (units): 18 Call MD if Blood Glucose > : 350 insulin glargine [Lantus Solostar U-100 Insulin] 100 unit/mL (3 mL) insulin pen 15 unit subcut BEDTIME (DME) FreeStyle Test Strip See Rx Instructions .Route Qty: 100 0RF Rx Instructions: As directed Discontinued rosuvastatin 40 mg tablet 40 mg PO QAM Discharge Orders: Discharge Order (Routine); Ordered 06/25/23 Ordered By: Lenora Mcintosh Diet: Diabetic diet Activity on Discharge: As tolerated Stand Alone Forms: Patient Portal Discharge page Care Plan Goals: treatment of orthostatic hypotension Health Concerns: orthostatic hypotension Plan of Treatment: stop lisinopril Monitor blood pressure if elevated blood pressures inform PCP and Nephrology and consider Norvasc at night. wear stockings to legs follow up with Dr Mills from [facility] in 1-2 weeks Please follow up with your primary care doctor within 1 week. Return to the hospital if you experience recurrent or worsening symptoms. Stop Crestor noted to have LDL 55 recheck lipid profile in 3-4 months and if needed resume low-dose Crestor Assessment: See Discharge Summary.
--- NOTE | 2023-06-25 10:24 | MHC.CM.PN ---
Addendum entered by Cinthya Ferrell RN 06/25/23 16:12: CM CONTACTED PT'S SON RAÚL AT NUMBER ON FILE HE WAS SUPPOSED TO PICK PT UP AT 3PM, RAÚL REPORTS SOMETHING CAME UP AND HE WILL BE HERE BY 5PM AT THE LATEST AND PROBABLY SOONER, NSG AWARE Original Note: PT MEDICALLY CLEARED FOR DC HOME W/NEW [facility] FOR SN/PT, PT'S SON RAÚL FOR TRANSPORT.
--- NOTE | 2023-06-25 10:34 | W.MHC.F2F ---
Service Date Service Date: 06/25/23 Encounter Date of encounter: 06/25/23 Reasons for Services Signs and symptoms assessed: dizziness , blood pressure and blood sugar monitoring Reason for intermediate: diabetic teaching, medication management and other Reason for physical therapy: home safety and mobility Homebound: Leaving the home is medically contraindicated at this time without the asist of a device and/or another person due th the listed conditions above and below. Reason homebound: fall risk related to blood pressure changes Certification: Based on the above findings, I certify that this patient is confined to the home and needs intermittent intermediate care, physical therapy and/or speech therapy, or continues to need occupational therapy. The patient is under my care, and I have initiated the establishment of the plan of care. The patient will be followed by a physician who will periodically review the plan of care. Time Spent With Patient Time: Total time managing care of this patient today ____ minutes.
[2023-06-25 11:31] LABS: Glucose, Whole Blood 235 mg/dL (60-115)
[2023-06-25 14:43] LABS: Glucose, Whole Blood 185 mg/dL (60-115)
== END 2023-06-25 17:27 | disposition home health service (06) | DRG 204 ==
LOC: HO.ED 06-20 08:22 → HO.EDOVER 06-20 08:55 → HO.IMC 06-20 17:39
PROVIDERS: Internal Medicine Nephrology; Registered Nurse Emergency; Admitting Provider Family Medicine; Emergency Provider Emergency Medicine Emergency Medical Services; PCP Nurse Practitioner Primary Care; Visit Provider Hospitalist
DX: I95.1 Orthostatic hypotension (principal); N17.9 Acute kidney failure, unspecified; E11.9 Type 2 diabetes mellitus without complications; E87.6 Hypokalemia; E86.0 Dehydration; B96.1 Klebsiella pneumoniae [K. pneumoniae] as the cause of diseases classified elsewhere; N39.0 Urinary tract infection, site not specified; I10 Essential (primary) hypertension; Z20.822 Contact with and (suspected) exposure to COVID-19; Z87.440 Personal history of urinary (tract) infections; Z79.4 Long term (current) use of insulin; Z79.82 Long term (current) use of aspirin; Z79.899 Other long term (current) drug therapy
CPT/HCPCS: 36415; 71046; 80048; 80053; 80061; 81001; 82533; 82607; 82728; 82746; 82947; 83036; 83540; 83615; 83735; 84443; 84484; 84702; 85025; 85027; 85045; 85610; 87086; 87088; 87186; 87502; 87635; 93005; 97116; 97162; 99285; J0696; J0834; J1650; J1920; J3480

== ENCOUNTER → 2023-06-19 15:15 | Outpatient (BNV) | payer MEDICAID, SELFPAY | PROVIDERS: Emergency Provider Emergency Medicine Emergency Medical Services; Visit Provider Internal Medicine Cardiovascular Disease | DX: R94.31 Abnormal electrocardiogram [ECG] [EKG] (principal) | CPT/HCPCS: 93010 ==

== ENCOUNTER → 2023-06-20 08:47 | Outpatient (BNV) | payer MEDICAID, SELFPAY | PROVIDERS: Admitting Provider Family Medicine; Emergency Provider Emergency Medicine Emergency Medical Services; PCP Nurse Practitioner Primary Care; Visit Provider Internal Medicine Nephrology | DX: N17.9 Acute kidney failure, unspecified (principal) | CPT/HCPCS: 99223; 99232 ==

== ENCOUNTER → 2023-06-20 08:47 | Outpatient (BNV) | payer MEDICAID, SELFPAY | PROVIDERS: Admitting Provider Family Medicine; Emergency Provider Emergency Medicine Emergency Medical Services; Visit Provider Family Medicine | DX: N17.9 Acute kidney failure, unspecified (principal); E87.6 Hypokalemia; I95.1 Orthostatic hypotension | CPT/HCPCS: 99223; 99232; 99233; 99238 ==

== ENCOUNTER 2023-06-27 14:59 | Inpatient (IN) | payer MEDICAID, SELFPAY ==
[2023-06-27] VITALS (11 sets, daily range): BP systolic 58–141; BP diastolic 33–70; PULSE 59–100; RESP 13–18; TEMP 36.7–37.1; O2SAT 96–98; BMI 22.0
--- NOTE | 2023-06-27 15:04 | ED.NAVMDI ---
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 She endorses epigastric abdominal pain that began after a few episodes of vomiting. States that she has not been able to stand today as this makes her dizzy. She has not been able to keep food or drink down. States my stomach wont let me . 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 Per EMS, POC glucose was 145 on arrival. EMS also states that patient was orthostatic during transfer. Denies known sick contacts. Denies fever, chills, blurred vision, chest pain, palpitations, shortness of breath, dysuria, hematuria. She was seen [place] [facility] [place] ago for same symptoms. She was admitted for hypokalemia, DILLON and severe orthostatic hypotension. Additionally, she was noted to have Klebsiella pneumoniae UTI and discharged home 2 days ago with p.o. Ceftin. She states that she has been taking this as prescribed. transfer and pumphouse operator chief utilized during this visit to communicate with patient. Related Data Home Medications Medication Instructions Recorded Confirmed aspirin 81 mg tablet,delayed 1 tab PO DAILY 07/21/22 06/27/23 release insulin glargine 100 unit/mL (3 15 unit subcut BEDTIME 07/21/22 06/27/23 mL) subcutaneous pen (Lantus Solostar U-100 Insulin) insulin lispro 100 unit/mL See Protocol subcut TIDAC 07/21/22 06/27/23 subcutaneous pen amlodipine 5 mg tablet 5 mg PO DAILY 06/27/23 06/27/23 Previous Rx's Medication Instructions Recorded blood sugar diagnostic (FreeStyle #100 ea 10/02/22 Test strips) cefuroxime axetil 250 mg tablet 250 mg PO BID #4 tabs 06/25/23 Allergies Allergy/AdvReac Type Severity Reaction Status Date / Time shrimp Allergy Swelling Verified 06/19/23 14:37 Review of Systems Review of Systems: Constitutional: No fever, chills, fatigue, night sweats, weight changes ENT/Mouth: No ear pain, hearing loss, nasal congestion, sinus pain, rhinorrhea, sore throat Eyes: No eye pain, swelling, redness, vision changes, discharge Cardio: No chest pain, palpitations, VICENTE, orthopnea, peripheral edema Pulm: No SOB, cough, sputum, wheezing, dyspnea, hemoptysis GI: No hematemesis, abdominal pain, diarrhea, constipation, hematochezia, melena, +nausea, +vomiting : No irregular bleeding, dysuria, frequency, urgency, hesitancy, hematuria, flank pain, urinary flow changes, urinary incontinence or retention MSK: No back pain, neck pain, joint pain, myalgias Skin: No lesions, rashes Neuro: No weakness, numbness, paresthesias, LOC, dizziness, headache Psych: No anxiety/panic, depression, SI/HI, AH/VH All other systems reviewed and are negative. [facility] Past Medical History Attestation statement: The following information was validated with the patient. Source: old records reviewed and nursing notes reviewed Medical History Symptomatic anemia Hypertension Brain lesion Iron deficiency anemia HLD (hyperlipidemia) Anemia Depression Type 2 diabetes mellitus Family History Family History Other Hypertension Social History Social History Household Members: Family Household Members Other:: Daughter Housing: Apartment Do you presently have visiting nurse or other home services: Yes Unable to assess alcohol history related to: Unable to respond Alcohol intake: never Patient Tobacco Use Status: Never used Tobacco Smoked in Last 30 Days: No e-Cigarette/Vaping Use: Never Used Second Hand Smoke Exposure: No Use of substances other than those prescribed or required for medical reasons: No Advance Directives: Yes Advance Directives on File: Yes Advance Directives Date on File: 06/19/21 Nutrition Risks: No Nutritional Risk Patient : No service: No Current occupational status: unemployed Physical Exam Vital Signs: Vital Signs: Last Vital Signs Temp 98.0 F 06/28/23 12:50 Pulse 77 06/28/23 12:50 Resp 17 06/28/23 12:50 BP 154/54 H 06/28/23 12:50 Pulse Ox 96 06/28/23 12:50 O2 Del Method Room Air 06/28/23 12:50 BMI result Body Mass Index 22.0 Blood pressure soft at 112/50. Vitals otherwise WNL Const: General: cooperative, comfortable and ill appearing Orientation/consciousness: patient oriented x3 Limitations: no limitations HEENT: Head: Yes normal to inspection, Yes No palpable skull fracture present, Yes normocephalic and Yes atraumatic Mouth: Normal oral and palatal mucosa present Eyes: General: appearance normal, both eyes and all related structures Conjunctivae: conjunctivae normal Sclerae: sclerae normal Pupils: Equal, round and reactive pupils present Neck: Neck: Yes normal visual inspection and Yes no lymphadenopathy Resp: Effort & Inspection: normal respiratory effort and able to speak in complete sentences Auscultation: clear to auscultation bilaterally Cardio: Other: 2+ radial pulses. No peripheral edema. Rate: regular rate Rhythm: regular rhythm GI: Other: + abdomen soft, tender to palpation of the epigastrium, no rebound or guarding. Normoactive bowel sounds x4. : General: Yes no CVA tenderness Back/Spine/Pelvis: Back: no CVA tenderness Skin: General skin exam: no rashes or lesions noted Neuro: General: patient oriented x3 and Unable to assess gait Cranial nerves: Yes Equal, round and reactive pupils present Gait exam (Neuro): Unable to assess gait Course Course Course Narrative: 1891-- Patient signed out to my colleague, Simon MAC at the end of my shift pending labs/ EKG/ IVF and suspected admission. Patient stable. Reevaluation(s) Reevaluation #1: Patient received in sign-out at change of shift pending re-evaluation. The patient's fluids have finally finished, repeat orthostatics were the patient is still significantly orthostatic upon standing. Her blood pressure standing was 140/66, however upon sitting a drop to 80/48 and upon standing to 77/33. Will discuss with the hospitalist for admission due to severe orthostatic hypotension. Considered abdominal CT scan, the patient is minimally tender so this was deferred at this time. Will discuss with the hospitalist for admission Time: 21:13 Medications Administered Generic Name Dose Route Start Last Admin Trade Name Freq PRN Reason Stop Dose Admin Heparin Sodium (Porcine) 5,000 unit 06/28/23 09:00 06/28/23 11:04 Heparin Sodium,Porcine 5,000 Unit/Ml Vial SUBCUT Not Given Q8H JM Sodium Chloride 1,000 mls @ 150 mls/hr 06/27/23 21:45 06/28/23 11:49 Ns IVCONT 150 mls/hr .Q6H40M JM Administration Insulin Human Lispro 0 unit 06/28/23 00:00 06/28/23 12:29 Insulin Lispro 100 Unit/Ml 3 Ml Vial SUBCUT Not Given Q6H [facility] Protocol Sodium Chloride 3 ml 06/28/23 00:00 06/28/23 08:57 0.9 % Sodium Chloride Flush 3 Ml Syringe IVFLUSH Not Given QSHIFT [facility] Discontinued Medications Generic Name Dose Route Start Last Admin Trade Name Freq PRN Reason Stop Dose Admin Sodium Chloride 1,000 mls @ 999 mls/hr 06/27/23 15:15 06/27/23 20:50 Ns IV 06/27/23 16:15 Infused .Q1H1M JM Infusion Sodium Chloride 1,000 mls @ 999 mls/hr 06/27/23 15:45 06/27/23 20:50 Ns IV 06/27/23 16:45 Infused .Q1H1M JM Infusion Ondansetron HCl 4 mg 06/27/23 15:08 06/27/23 15:42 Ondansetron Hcl 4 Mg/2 Ml Vial IVPUSH 06/27/23 15:09 4 mg ONCE ONE Administration Prochlorperazine Edisylate 10 mg 06/27/23 21:37 06/27/23 22:45 Prochlorperazine Edisylate 10 Mg/2 Ml Vial IVPUSH 06/27/23 21:38 10 mg ONCE STA Administration Medical Decision Making Medical Decision Making MDM Narrative: 53 year old female with pmhx significant for HTN, T2DM, anemia, depression presents to the ED today via EMS for evaluation of nausea, vomiting and dizziness that began yesterday. Patient's blood pressure soft on arrival at 112/50. She became severely orthostatic when obtaining orthostatic vital signs. BP dropped to 58/35 and patient endorsed dizziness. She is AOX3. PERRLA. Unable to assess gait secondary to symptomatic hypotension. RRR. Lungs CTA bilaterally. Abdomen slightly tender to palpation over the epigastrium. No rebound or guarding. Normoactive bowel sounds x4. Clinical concern for dehydration, arrhythmia, hyperglycemia, orthostatic hypotension, gastroenteritis, DILLON. Lower suspicion for ACS, dissection, DKA, hypertensive urgency or emergency. Plan for labs, UA, EKG, poc glucose, IVF, and re-evaluation. Differential Diagnosis Differential Diagnoses: The differential diagnosis associated with the presentation includes As above Admission/Observation Consideration of admission/observation: Escalation of care including admission/observation considered Patient to be admitted to medicine for orthostatic hypotension. Consult Healthcare Provider Management of the patient was discussed with: Hospitalist Lab Data MDM Lab Attestation statement: I reviewed the patient's lab results. As above 06/28/23 04:56 06/28/23 04:56 Labs: Lab Results 06/27/23 06/27/23 06/27/23 Range/Units 15:20 15:47 21:03 WBC 11.8 H (4.8-10.8) X10*3/uL RBC 3.20 L (4.20-5.50) X10*6/uL Hgb 9.7 L (12.0-16.0) g/dl Hct 28.8 L (37.0-47.0) % MCV 90.0 (80.0-98.0) fL MCH 30.3 (27.0-33.0) pg MCHC 33.7 (31.0-35.0) g/dl RDW 12.9 (11.0-16.0) % Plt Count 140 L (160-400) X10*3/uL MPV 8.5 L (9.4-12.3) fL Immature Gran % (Auto) 0.3 (0.0-0.4) % Neut % (Auto) 85.2 H (45-73) % Lymph % (Auto) 9.0 L (20-40) % [place] % (Auto) 5.0 (2-11) % Eos % (Auto) 0.3 (0-4) % Baso % (Auto) 0.2 (0-2) % Lymph # (Auto) 1.1 L (1.2-4.9) X10*3/uL [place] # (Auto) 0.6 (0.1-1.2) X10*3/uL Eos # (Auto) 0.0 (0.0-0.4) X10*3/uL Baso # (Auto) 0.0 (0.0-0.2) X10*3/uL Abs Immat Gran (auto) 0.04 H (0.00-0.03) X10*3/uL Absolute Neuts (auto) 10.0 H (2.0-8.3) x10*3/uL Absolute Nucleated RBC 0.000 (0.0-0.012) X10*3/uL Nucleated RBC % (auto) 0.0 (0.0-0.2) /100WBC Sodium 136 (135-145) mmol/L Potassium 4.0 (3.3-5.1) mmol/L Chloride 100 (96-108) mmol/L Carbon Dioxide 27 (22-29) mmol/L Anion Gap 13 (12-20) BUN 40 H (9-16) mg/dL Creatinine 1.47 H (0.5-1.4) mg/dL Estim Creat Clear Calc 40.9 Estimated GFR 37 POC Glucose 167 H (60-115) mg/dL Random Glucose 180 H (60-115) mg/dL Calcium 9.8 (8.4-10.2) mg/dL Magnesium 2.4 (1.6-2.6) mg/dL Total Bilirubin 0.4 (0.0-1.0) mg/dL AST 17 (5-31) U/L ALT 17 (0-31) U/L Alkaline Phosphatase 88 (39-117) U/L Total Protein 7.9 (6.5-8.0) g/dL Albumin 4.0 (3.5-5.0) g/dL Lipase 28 (8-78) U/L Beta HCG, Quant 4 mIU/mL Urine Color Yellow Urine Appearance Cloudy Urine pH 5.5 (5.0-9.0) Ur Specific [place] 1.010 (1.005-1.025) Urine Protein 300 (3+) H (Neg-Trace) mg/dL Urine Glucose (UA) 250 H (Negative) mg/dL Urine Ketones Negative (Negative) mg/dL Urine Blood Small (1+) H (Negative) Urine Nitrite Negative (Negative) Ur Leukocyte Esterase Negative (Negative) Urine RBC 0-2 (0-2) /HPF Urine WBC 6-10 H (0-5) /HPF Ur Squamous Epith Cells 6-10 (0-2) /HPF Urine Bacteria None Seen (None Seen) Hyaline Casts >20 (0-2) /LPF Independent Interpretation I performed an independent interpretation of an: EKG Interpretation: EKG showing NSR with a rate of 91 beats per minute, QT 380, QTC 467, no acute ischemic changes or ST elevations. Of note QT has lengthened since prior. Independent Historian Clinical information obtained from an independent historian. History obtained from or confirmed by: EMS External Record Review External record reviewed: Inpatient record, Office record, Outpatient record, Prior outpatient labs, Prior outpatient radiology, Primary care record and Outside ED record Prescription Management I considered prescription management with: Other (antiemetic) Chronic Conditions Patient?s care impacted by: Other (hyperglycemia) Critical Care Time Critical Care Time Critical Care Time: Yes Total Critical Care Time: 31 Attestation: Critical care time in the amount of 31 minutes has been provided to the patient in terms of direct patient care, frequent reevaluation, review and interpretation of medical data and results, and management of potentially life-threatening conditions. This is all outside of any medical procedures. Discharge Plan Discharge Clinical Impression: Orthostatic hypotension Patient Disposition: Admitted As Inpatient
[2023-06-27 15:23] LABS: Glucose, Whole Blood 167 mg/dL (60-115)
--- NOTE | 2023-06-27 15:35 | ECG_ITS ---
Test Reason : VOMITTING Blood Pressure : / mmHG Vent. Rate : 091 BPM Atrial Rate : 091 BPM P-R Int : 142 ms QRS Dur : 072 ms QT Int : 380 ms P-R-T Axes : 064 013 077 degrees QTc Int : 467 ms Normal sinus rhythm Normal ECG When compared with ECG of 19-JUN-2023 15:27, Criteria for Septal infarct are no longer Present Nonspecific T wave abnormality no longer evident in Inferior leads Nonspecific T wave abnormality, improved in Lateral leads QT has lengthened Referred By: Ilsa Bhardwaj Electronically Signed By:JAYA STOLL MD
--- NOTE | 2023-06-27 15:35 | PC.NURSE ---
BS HYPOACTIVE IN ALL 4 QUADS. MLP (GRACIE) AWARE
[2023-06-27] MEDS: ondansetron HCL 4 MG/2 ML VIAL IVPUSH (15:42)
[2023-06-27] MEDS: 0.9 % Sodium Chloride 1,000 ML 999 ML IV ×2 (15:43→16:43)
[2023-06-27 15:51] LABS: MANUAL DIFF FLAG NO
[2023-06-27 15:54] LABS: Basophils Percent Auto 0.2 % (0-2); Eosinophils Percent Auto 0.3 % (0-4); Hematocrit 28.8 % (37.0-47.0); Hemoglobin 9.7 g/dl (12.0-16.0); Imm Gran Abs Auto 0.04 X10*3/uL (0.00-0.03); Imm Gran Pct Auto 0.3 % (0.0-0.4); Lymphocytes Absolute Auto 1.1 X10*3/uL (1.2-4.9); Mean Corpuscular HGB Conc 33.7 g/dl (31.0-35.0); Mean Corpuscular Hemoglobin 30.3 pg (27.0-33.0); Mean Platelet Volume 8.5 fL (9.4-12.3); Monocytes Absolute Auto 0.6 X10*3/uL (0.1-1.2); Neutrophils Percent Auto 85.2 % (45-73); Platelet Count 140 X10*3/uL (160-400); Red Cell Distribution Width 12.9 % (11.0-16.0); White Blood Count 11.8 X10*3/uL (4.8-10.8)
[2023-06-27 16:10] LABS: Alanine Aminotransferase 17 U/L (0-31); Alkaline Phosphatase 88 U/L (39-117); Anion Gap 13 (12-20); Aspartate Amino Transferase 17 U/L (5-31); Bilirubin Total 0.4 mg/dL (0.0-1.0); Blood Urea Nitrogen 40 mg/dL (9-16); Calcium 9.8 mg/dL (8.4-10.2); Carbon Dioxide 27 mmol/L (22-29); Chloride 100 mmol/L (96-108); Creatinine Clr Calc Pharmacy 40.9; Estimated Glomerular Filt Rate 37; Glucose Random 180 mg/dL (60-115); Lipase 28 U/L (8-78); Magnesium 2.4 mg/dL (1.6-2.6); Sodium 136 mmol/L (135-145); Total Protein 7.9 g/dL (6.5-8.0)
[2023-06-27 17:20] LABS: HCG Quantitative 4 mIU/mL
--- NOTE | 2023-06-27 21:00 | PC.NURSE ---
ivf infused pt + for othostatics. Simon AREVALO notified.
--- NOTE | 2023-06-27 21:08 | MHC.EDTECH ---
Orthostatic vitals done and reported to RN and Provider. Pt assisted to bathroom and pt voided a total of 9ooml urine. Sample sent to lab and RN aware.
[2023-06-27 21:17] LABS: Appearance Urine Cloudy; Color Urine Yellow; Glucose Urine UA 250 mg/dL (Negative); Leukocyte Esterase Urine Negative (Negative); Nitrite Urine Negative (Negative); PH 5.5 (5.0-9.0); UMIC TRIGGER UACC YES; Urine Blood Small (1+) (Negative); Urine Ketones Negative (Negative); Urine Protein 300 (3+) mg/dL (Neg-Trace)
[2023-06-27 21:40] LABS: Bacteria Urine None Seen (None Seen); Hyaline Casts Urine >20 /LPF (0-2); RBC Urine 0-2 /HPF (0-2); UACC Culture Trigger YES
--- NOTE | 2023-06-27 21:46 | P.HPHOSP_ITS ---
History of Present Illness Date of Service: 06/27/23 Attending physician on admission: Mickie Gómez Chief Complaint: Nausea and vomiting Queta Loya is a 53 years old woman with past medical history significant for type 2 diabetes mellitus on insulin, hyperlipidemia, hypertension and depression presents to the emergency department complaining of persistent episodes nonbloody vomiting and watery nonbloody diarrhea since yesterday. She does complain of nausea but denied significant abdominal pain. She also mentioned feeling very dizzy and fatigued. She denied any headache, fever, chills, chest pain or shortness on breath. She denied any acute genitourinary symptoms. She denied alcohol abuse, tobacco smoking or illicit drug use. Patient was recently discharged from the hospital after she was admitted with similar symptoms. At that time she was found to have orthostatic hypotension and was treated with IV fluids. She was discharged to complete a course of cefuroxime (she only took 1 pill) for Klebsiella UTI (she initially received therapy with ceftriaxone IV). She was found to have low cortisol level. ACTH stimulation test was normal. She was also found to have normal TSH an LDH of 55 (atorvastatin was discontinued). She was also found to have Klebsiella UTI received treatment with IV ceftriaxone. In the ED, she was found to have orthostatic vital signs. Blood workup is remarkable for mild leukocytosis, 11.8. There are no significant electrolyte imbalances. Creatinine was 1.47 (it was 1.1 on discharge). LFTs and lipase are known. Beta hCG is 4 (presumed false elevation secondary to elevated LH surge 2/2 menopause, she is to follow up with Gynecology as an outpatient). ED tx: Zofran 4 mg IV, NS 2 L bolus. Review of Systems 2 Review of Systems: All 12 systems were reviewed and normal except as noted in HPI. [facility] Medical History Symptomatic anemia Hypertension Brain lesion Iron deficiency anemia HLD (hyperlipidemia) Anemia Depression Type 2 diabetes mellitus Family History Other Hypertension Social History Household Members: Family Household Members Other:: Daughter Housing: Apartment Do you presently have visiting nurse or other home services: Yes Unable to assess alcohol history related to: Unable to respond Alcohol intake: never Patient Tobacco Use Status: Never used Tobacco Smoked in Last 30 Days: No e-Cigarette/Vaping Use: Never Used Second Hand Smoke Exposure: No Use of substances other than those prescribed or required for medical reasons: No Advance Directives: Yes Advance Directives on File: Yes Advance Directives Date on File: 06/19/21 Patient : No service: No Current occupational status: unemployed Meds Allergies Allergy/AdvReac Type Severity Reaction Status Date / Time shrimp Allergy Swelling Verified 06/19/23 14:37 Active Medications: Current Medications Acetaminophen (Acetaminophen 325 Mg Tablet) 975 mg PO Q6H PRN PRN Reason: Pain, Mild (Pain Scale 1-3) Dextrose (Dextrose 50 % 25 Gm/50 Ml Syringe) 25 gm IVPUSH Q15M PRN; Protocol PRN Reason: per Hypoglycemia Standing Ord. Glucose (Glucose Gel 15 Gm Gel..Gram.) 15 gm PO Q15M PRN; Protocol PRN Reason: per Hypoglycemia Standing Ord. Heparin Sodium (Porcine) (Heparin Sodium,Porcine 5,000 Unit/Ml Vial) 5,000 unit SUBCUT Q8H [facility] Sodium Chloride (Ns) 1,000 mls @ 150 mls/hr IVCONT .Q6H40M [facility] Insulin Human Lispro (Insulin Lispro 100 Unit/Ml 3 Ml Vial) 0 unit SUBCUT Q6H [facility]; Protocol Prochlorperazine Edisylate (Prochlorperazine Edisylate 10 Mg/2 Ml Vial) 5 mg IVPUSH Q6H PRN PRN Reason: Nausea and Vomiting Sodium Chloride (0.9 % Sodium Chloride Flush 3 Ml Syringe) 3 ml IVFLUSH QSHIFT [facility] Home Medications Medication Instructions Recorded Confirmed Last Taken Type aspirin 81 mg tablet,delayed 1 tab PO DAILY 07/21/22 06/27/23 06/25/23 History release insulin glargine 100 unit/mL (3 15 unit subcut BEDTIME 07/21/22 06/27/23 06/25/23 History mL) subcutaneous pen (Lantus Solostar U-100 Insulin) insulin lispro 100 unit/mL See Protocol subcut TIDAC 07/21/22 06/27/23 06/25/23 History subcutaneous pen amlodipine 5 mg tablet 5 mg PO DAILY 06/27/23 06/27/23 06/25/23 History Physical Exam 2 Vital Signs and Narrative: Vital Signs: Last Vital Signs Temp 98.7 F 06/27/23 21:07 Pulse 93 06/27/23 21:07 Resp 18 06/27/23 21:07 BP 128/61 06/27/23 21:07 Pulse Ox 98 06/27/23 21:07 O2 Del Method Room Air 06/27/23 21:07 BMI result Body Mass Index 22.0 Constitutional - Awake and Alert. Patient looks quite uncomfortable acute ill. Cooperative. HEENT - Pupils equally round. No scleral icterus. Dry oral mucosa. Heart - RRR. No murmur. Lungs - Normal lung expansion, Normal respiratory effort, No respiratory distress, CTA bilaterally Abdomen - NT / ND; increased BS; No rebound or guarding - No CVA tenderness Extremities - No calf tenderness bilaterally, no swelling Musculoskeletal - Normal inspection, normal ROM Skin - Warm/Dry Neurological - Alert & oriented x3. No focal weakness grossly noted. Normal speech. Psychological - Depressed affect Results Labs 06/27/23 15:47 06/27/23 15:47 Labs: Laboratory Results - last 24 hr 06/27/23 06/27/23 06/27/23 15:20 15:47 21:03 MCV 90.0 MCH 30.3 MCHC 33.7 RDW 12.9 Plt Count 140 L MPV 8.5 L Immature Gran % (Auto) 0.3 Neut % (Auto) 85.2 H Lymph % (Auto) 9.0 L [place] % (Auto) 5.0 Eos % (Auto) 0.3 Baso % (Auto) 0.2 Lymph # (Auto) 1.1 L [place] # (Auto) 0.6 Eos # (Auto) 0.0 Baso # (Auto) 0.0 Abs Immat Gran (auto) 0.04 H Absolute Neuts (auto) 10.0 H Absolute Nucleated RBC 0.000 Nucleated RBC % (auto) 0.0 Anion Gap 13 Estim Creat Clear Calc 40.9 Estimated GFR 37 POC Glucose 167 H Random Glucose 180 H Calcium 9.8 Magnesium 2.4 Total Bilirubin 0.4 AST 17 ALT 17 Alkaline Phosphatase 88 Total Protein 7.9 Albumin 4.0 Lipase 28 Beta HCG, Quant 4 Urine Color Yellow Urine Appearance Cloudy Urine pH 5.5 Ur Specific [place] 1.010 Urine Protein 300 (3+) H Urine Glucose (UA) 250 H Urine Ketones Negative Urine Blood Small (1+) H Urine Nitrite Negative Ur Leukocyte Esterase Negative Urine RBC 0-2 Urine WBC 6-10 H Ur Squamous Epith Cells 6-10 Urine Bacteria None Seen Hyaline Casts >20 Assessment and Plan (1) Orthostatic hypotension: Status: Acute (2) Acute kidney injury: Status: Acute Plan Queta Loya is a 53 years old woman admitted with: * Orthostatic hypotension likely secondary to dehydration due to vomiting and diarrhea. Admit to hospitalist service. Keep NPO. Continue symptomatic therapy with IV fluids and antiemetics. Check orthostatic vital signs with every shift. As the patient recently received treatment with antibiotics we will assess for C diff infection (however patient has no abdominal pain). * Acute kidney injury secondary to dehydration/nausea/vomiting. Continue IV fluids. Continue to monitor renal function. Avoid nephrotoxic agents. * Type 2 diabetes mellitus. Blood glucose monitoring every 6 hours while NPO. Her glucose control with insulin sliding scale. * Hyperlipidemia. Statin recently discontinued -low LDL). * Essential hypertension. Discontinue amlodipine -orthostatic hypotension. * Slight elevation of hCG. Possible 2/2 to menopause. Referred to follow with gynecology as an outpatient. DVT prophylaxis: Heparin subcut Code status: Full Patient will need hospitalization for at least 2 midnights for orthostatic hypotension evaluation and treatment with IV fluids and close monitoring of vital signs. Quality Stroke Does the patient have a stroke diagnosis?: No VTE Prior VTE?: No VTE Risk Level:: Medical - moderate - high VTE Device Contraindication: Treatment Not Indicated VTE Drug Contraindication: N/A - Med Ordered
--- NOTE | 2023-06-27 21:58 | PHA.MEDREC ---
Pharmacy Consult ? Medication Reconciliation Pharmacy has completed the medication reconciliation. Patient unable to tell me what her medications are even with help of materials engineer. Called son at home and he confirmed these medications. Reports that Rosuvastain was D/C. Also reports that she hasn't. taken her medication in 2 days
--- NOTE | 2023-06-27 22:09 | PC.NURSE ---
pt denies n/v at this time refused compazine. will reasses through the night.
[2023-06-27] MEDS: 0.9 % Sodium Chloride 1,000 ML 150 ML IVCONT (22:44)
[2023-06-27] MEDS: Prochlorperazine Edisylate 10 MG/2 ML VIAL IVPUSH (22:45)
[2023-06-28] VITALS (11 sets, daily range): BP systolic 63–189; BP diastolic 38–79; PULSE 77–99; RESP 17–20; TEMP 36.6–37.2; O2SAT 96–97; BMI 21.7
[2023-06-28 01:01] LABS: Glucose, Whole Blood 146 mg/dL (60-115)
--- NOTE | 2023-06-28 03:28 | PC.NURSE ---
+orthos this am. pt reports dizziness upon standing however ambulatory with steady gait to bathroom with minimal assist. pt denies n/v. nad. pt helped back into bed. call sampson within reach.
[2023-06-28 05:35] LABS: MANUAL DIFF FLAG NO
[2023-06-28 05:39] LABS: Basophils Percent Auto 0.1 % (0-2); Eosinophils Absolute Auto 0.1 X10*3/uL (0.0-0.4); Eosinophils Percent Auto 0.8 % (0-4); Hematocrit 26.2 % (37.0-47.0); Hemoglobin 8.7 g/dl (12.0-16.0); Imm Gran Abs Auto 0.02 X10*3/uL (0.00-0.03); Imm Gran Pct Auto 0.3 % (0.0-0.4); Lymphocytes Absolute Auto 2.2 X10*3/uL (1.2-4.9); Lymphocytes Percent Auto 28.4 % (20-40); Mean Corpuscular HGB Conc 33.2 g/dl (31.0-35.0); Mean Corpuscular Hemoglobin 30.5 pg (27.0-33.0); Mean Corpuscular Volume 91.9 fL (80.0-98.0); Mean Platelet Volume 8.7 fL (9.4-12.3); Monocytes Absolute Auto 0.5 X10*3/uL (0.1-1.2); Monocytes Percent Auto 6.9 % (2-11); Neutrophils Percent Auto 63.5 % (45-73); Platelet Count 134 X10*3/uL (160-400); Red Blood Count 2.85 X10*6/uL (4.20-5.50); Red Cell Distribution Width 12.7 % (11.0-16.0); White Blood Count 7.9 X10*3/uL (4.8-10.8)
[2023-06-28 06:03] LABS: Anion Gap 12 (12-20); Blood Urea Nitrogen 28 mg/dL (9-16); Calcium 8.5 mg/dL (8.4-10.2); Carbon Dioxide 23 mmol/L (22-29); Chloride 110 mmol/L (96-108); Creatinine Clr Calc Pharmacy 55.7; Estimated Glomerular Filt Rate 53; Glucose Random 132 mg/dL (60-115); Magnesium 2.4 mg/dL (1.6-2.6); Potassium 3.9 mmol/L (3.3-5.1); Sodium 141 mmol/L (135-145)
[2023-06-28 06:24] LABS: Glucose, Whole Blood 138 mg/dL (60-115)
--- NOTE | 2023-06-28 08:09 | PC.NURSE ---
Resumed care of patient, IVF currently running,all needs met at this time, call sampson within reach, awaiting bed placement at this time
[2023-06-28] MEDS: 0.9 % Sodium Chloride 1,000 ML 150 ML IVCONT ×2 (11:49→19:47)
[2023-06-28 12:06] LABS: Glucose, Whole Blood 135 mg/dL (60-115)
--- NOTE | 2023-06-28 14:05 | P.PNIM_ITS ---
Subjective Subjective Date of Service: 06/28/23 Interval History: Seen and examined this morning History obtained with the assistance of a construction project engineer Follow-up for orthostatic hypotension, vomiting, diarrhea Patient reports resolution of vomiting, denies any abdominal pain. Currently not dizzy Review of Systems Review of Systems: Yes all other systems are reviewed and are negative Constitutional Constitutional: Denies chills and Denies fever(s) Cardiovascular Cardiovascular: Denies chest pain Gastrointestinal Gastrointestinal: Denies abdominal pain, Denies nausea and Denies vomiting Physical Exam 2 Vital Signs: Vital Signs: Last Vital Signs Temp 98.0 F 06/28/23 12:50 Pulse 77 06/28/23 12:50 Resp 17 06/28/23 12:50 BP 154/54 H 06/28/23 12:50 Pulse Ox 96 06/28/23 12:50 O2 Del Method Room Air 06/28/23 12:50 BMI result Body Mass Index 22.0 Const: General: cooperative, comfortable, no acute distress, alert and awake Nutritional Appearance: average body habitus Orientation/consciousness: p atient oriented x3 Resp: Effort & Inspection: normal respiratory effort, able to speak in complete sentences, no respiratory distress and no use of accessory muscles Cardio: Rate: regular rate GI: Inspection: No distended Palpation (GI): Soft to palpation and nontender Neuro: Other: grossly nonfocal General: patient oriented x3 Extrem: General: Yes no pedal edema Objective Data Active Medications Acetaminophen (Acetaminophen 325 Mg Tablet) 975 mg PO Q6H PRN PRN Reason: Pain, Mild (Pain Scale 1-3) Dextrose (Dextrose 50 % 25 Gm/50 Ml Syringe) 25 gm IVPUSH Q15M PRN; Protocol PRN Reason: per Hypoglycemia Standing Ord. Glucose (Glucose Gel 15 Gm Gel..Gram.) 15 gm PO Q15M PRN; Protocol PRN Reason: per Hypoglycemia Standing Ord. Heparin Sodium (Porcine) (Heparin Sodium,Porcine 5,000 Unit/Ml Vial) 5,000 unit SUBCUT Q8H [facility] Last Admin: 06/28/23 11:04 Dose: Not Given Documented By: JUANCHO Non-Admin Reason: Patient Refused Sodium Chloride (Ns) 1,000 mls @ 150 mls/hr IVCONT .Q6H40M [facility] Last Admin: 06/28/23 11:49 Dose: 150 mls/hr Documented By: JUANCHO Insulin Human Lispro (Insulin Lispro 100 Unit/Ml 3 Ml Vial) 0 unit SUBCUT Q6H [facility]; Protocol Last Admin: 06/28/23 12:29 Dose: Not Given Documented By: JUANCHO Non-Admin Reason: No Insulin Coverage Prochlorperazine Edisylate (Prochlorperazine Edisylate 10 Mg/2 Ml Vial) 5 mg IVPUSH Q6H PRN PRN Reason: Nausea and Vomiting Sodium Chloride (0.9 % Sodium Chloride Flush 3 Ml Syringe) 3 ml IVFLUSH QSHIFT [facility] Last Admin: 06/28/23 08:57 Dose: Not Given Documented By: JUANCHO Non-Admin Reason: IV Running Labs 06/28/23 04:56 06/28/23 04:56 Labs: Laboratory Results - last 24 hr 06/27/23 06/27/23 06/27/23 15:20 15:47 21:03 MCV 90.0 MCH 30.3 MCHC 33.7 RDW 12.9 Plt Count 140 L MPV 8.5 L Immature Gran % (Auto) 0.3 Neut % (Auto) 85.2 H Lymph % (Auto) 9.0 L [place] % (Auto) 5.0 Eos % (Auto) 0.3 Baso % (Auto) 0.2 Lymph # (Auto) 1.1 L [place] # (Auto) 0.6 Eos # (Auto) 0.0 Baso # (Auto) 0.0 Abs Immat Gran (auto) 0.04 H Absolute Neuts (auto) 10.0 H Absolute Nucleated RBC 0.000 Nucleated RBC % (auto) 0.0 Anion Gap 13 Estim Creat Clear Calc 40.9 Estimated GFR 37 POC Glucose 167 H Random Glucose 180 H Calcium 9.8 Magnesium 2.4 Total Bilirubin 0.4 AST 17 ALT 17 Alkaline Phosphatase 88 Total Protein 7.9 Albumin 4.0 Lipase 28 Beta HCG, Quant 4 Urine Color Yellow Urine Appearance Cloudy Urine pH 5.5 Ur Specific Peck 1.010 Urine Protein 300 (3+) H Urine Glucose (UA) 250 H Urine Ketones Negative Urine Blood Small (1+) H Urine Nitrite Negative Ur Leukocyte Esterase Negative Urine RBC 0-2 Urine WBC 6-10 H Ur Squamous Epith Cells 6-10 Urine Bacteria None Seen Hyaline Casts >20 06/28/23 06/28/23 06/28/23 00:57 04:56 06:19 MCV 91.9 MCH 30.5 MCHC 33.2 RDW 12.7 Plt Count 134 L MPV 8.7 L Immature Gran % (Auto) 0.3 Neut % (Auto) 63.5 Lymph % (Auto) 28.4 Sp[place]ding % (Auto) 6.9 Eos % (Auto) 0.8 Baso % (Auto) 0.1 Lymph # (Auto) 2.2 Sp[place] # (Auto) 0.5 Eos # (Auto) 0.1 Baso # (Auto) 0.0 Abs Immat Gran (auto) 0.02 Absolute Neuts (auto) 5.0 Absolute Nucleated RBC 0.000 Nucleated RBC % (auto) 0.0 Anion Gap 12 Estim Creat Clear Calc 55.7 Estimated GFR 53 POC Glucose 146 H 138 H Random Glucose 132 H Calcium 8.5 D Magnesium 2.4 Total Bilirubin AST ALT Alkaline Phosphatase Total Protein Albumin Lipase Beta HCG, Quant Urine Color Urine Appearance Urine pH Ur Specific Peck Urine Protein Urine Glucose (UA) Urine Ketones Urine Blood Urine Nitrite Ur Leukocyte Esterase Urine RBC Urine WBC Ur Squamous Epith Cells Urine Bacteria Hyaline Casts 06/28/23 12:01 MCV MCH MCHC RDW Plt Count MPV Immature Gran % (Auto) Neut % (Auto) Lymph % (Auto) Spalding % (Auto) Eos % (Auto) Baso % (Auto) Lymph # (Auto) Spalding # (Auto) Eos # (Auto) Baso # (Auto) Abs Immat Gran (auto) Absolute Neuts (auto) Absolute Nucleated RBC Nucleated RBC % (auto) Anion Gap Estim Creat Clear Calc Estimated GFR POC Glucose 135 H Random Glucose Calcium Magnesium Total Bilirubin AST ALT Alkaline Phosphatase Total Protein Albumin Lipase Beta HCG, Quant Urine Color Urine Appearance Urine pH Ur Specific Peck Urine Protein Urine Glucose (UA) Urine Ketones Urine Blood Urine Nitrite Ur Leukocyte Esterase Urine RBC Urine WBC Ur Squamous Epith Cells Urine Bacteria Hyaline Casts Assessment and Plan (1) Orthostatic hypotension: Status: Acute (2) Acute kidney injury: Status: Acute Plan This is a 53 year old female with recent admission for UTI and orthostatic hypotension who presents with nausea and vomiting Orthostatic hypotension likely secondary to dehydration from vomiting and diarrhea Continue IVF Check orthostatic vital signs daily seen by nephrology on last admission Diarrhea As the patient recently received treatment with antibiotics we will assess for C diff infection N/V improving continue IVF, supportive care advance to full liquid diet Acute kidney injury secondary to dehydration/nausea/vomiting. resolved with IVF acute on chronic normocytic anemia above transfusion threshold likely component of dilution follow CBC thrombocytopenia chronic follow CBC recent UTI completed ceftin as outpatient repeat urine culture pending Type 2 diabetes mellitus. follow SSI, POCs. resume lantus Hyperlipidemia. Statin recently discontinued -low LDL Essential hypertension. hold amlodipine for now due to orthostatic hypotension follow bp closely Slight elevation of hCG. likely due to false elevation due to high LH from menopause as documented on previous admission DVT prophylaxis: Heparin subcut Code status: Full Patient will need hospitalization for at least 2 midnights for orthostatic hypotension evaluation and treatment with IV fluids and close monitoring of vital signs. Quality Stroke Does the patient have a stroke diagnosis?: No VTE Prior VTE?: No VTE Risk Level:: Medical - moderate - high VTE Device Contraindication: Treatment Not Indicated VTE Drug Contraindication: N/A - Med Ordered
[2023-06-28 17:33] LABS: Glucose, Whole Blood 135 mg/dL (60-115)
[2023-06-28 18:59] LABS: Glucose, Whole Blood 136 mg/dL (60-115)
[2023-06-29] VITALS (13 sets, daily range): BP systolic 91–207; BP diastolic 47–94; PULSE 80–102; RESP 16–20; TEMP 36–36.6; O2SAT 95–98
[2023-06-29] MEDS: 0.9 % Sodium Chloride 1,000 ML 150 ML IVCONT ×2 (01:30→09:42)
[2023-06-29] MEDS: Heparin Sodium,Porcine 5,000 UNIT/ML VIAL 5000 UNIT SUBCUT ×3 (01:33→17:03)
[2023-06-29 05:33] LABS: Glucose, Whole Blood 105 mg/dL (60-115)
[2023-06-29 07:49] LABS: Glucose, Whole Blood 101 mg/dL (60-115)
[2023-06-29 08:22] LABS: Hematocrit 27.8 % (37.0-47.0); Hemoglobin 9.5 g/dl (12.0-16.0); Mean Corpuscular HGB Conc 34.2 g/dl (31.0-35.0); Mean Corpuscular Hemoglobin 30.3 pg (27.0-33.0); Mean Corpuscular Volume 88.5 fL (80.0-98.0); Platelet Count 122 X10*3/uL (160-400); Red Blood Count 3.14 X10*6/uL (4.20-5.50); Red Cell Distribution Width 12.3 % (11.0-16.0); White Blood Count 6.6 X10*3/uL (4.8-10.8)
[2023-06-29] MEDS: 0.9 % Sodium Chloride Flush 3 ML SYRINGE IVFLUSH ×3 (09:42→21:10)
[2023-06-29] MEDS: Aspirin Enteric Coated 81 MG TABLET.DR PO (09:42)
--- NOTE | 2023-06-29 11:14 | HO.PM.IMPN ---
Subjective Subjective Date of Service: 06/29/23 Interval History: seen and examined this morning follow up for n/v, gregory, orthostasis no further nausea or vomiting one episode of loose stool this am Review of Systems Review of Systems: Yes all other systems are reviewed and are negative Constitutional Constitutional: Denies chills and Denies fever(s) Cardiovascular Cardiovascular: Denies chest pain, Denies palpitations and Denies dyspnea Respiratory Respiratory: Denies cough and Denies dyspnea Gastrointestinal Gastrointestinal: Denies abdominal pain Endocrine Endocrine: Denies palpitations Physical Exam Vital Signs: Vital Signs: Last Vital Signs Temp 97.5 F 06/29/23 10:50 Pulse 84 06/29/23 10:50 Resp 20 06/29/23 10:50 BP 168/72 H 06/29/23 10:50 Pulse Ox 97 06/29/23 10:50 O2 Del Method Room Air 06/29/23 10:50 BMI result Body Mass Index 21.7 Const: Other: intermittently tearful General: cooperative, comfortable, no acute distress, alert and awake Nutritional Appearance: average body habitus Orientation/consciousness: patient oriented x3 Resp: Effort & Inspection: normal respiratory effort, able to speak in complete sentences, no respiratory distress and no use of accessory muscles Cardio: Rate: regular rate GI: Inspection: No distended Palpation (GI): Soft to palpation and nontender Neuro: Other: grossly nonfocal General: patient oriented x3 Extrem: General: Yes no pedal edema Objective Data Active Medications Acetaminophen (Acetaminophen 325 Mg Tablet) 975 mg PO Q6H PRN PRN Reason: Pain, Mild (Pain Scale 1-3) Aspirin (Aspirin Enteric Coated 81 Mg Tablet.) 81 mg PO DAILY [facility] Last Admin: 06/29/23 09:42 Dose: 81 mg Documented By: GREGORIA Dextrose (Dextrose 50 % 25 Gm/50 Ml Syringe) 25 gm IVPUSH Q15M PRN; Protocol PRN Reason: per Hypoglycemia Standing Ord. Glucose (Glucose Gel 15 Gm Gel..Gram.) 15 gm PO Q15M PRN; Protocol PRN Reason: per Hypoglycemia Standing Ord. Heparin Sodium (Porcine) (Heparin Sodium,Porcine 5,000 Unit/Ml Vial) 5,000 unit SUBCUT Q8H [facility] Last Admin: 06/29/23 09:41 Dose: 5,000 unit Documented By: GREGORIA Sodium Chloride (Ns) 1,000 mls @ 150 mls/hr IVCONT .Q6H40M [facility] Last Admin: 06/29/23 09:42 Dose: 150 mls/hr Documented By: GREGORIA Insulin Glargine (Insulin Glargine,Hum.Rec.Anlog 100 Unit/Ml 10 Ml Vial) 15 unit SUBCUT BEDTIME [facility] Last Admin: 06/29/23 01:18 Dose: Not Given Documented By: MATTIE Non-Admin Reason: hold per MD order Insulin Human Lispro (Insulin Lispro 100 Unit/Ml 3 Ml Vial) 0 unit SUBCUT Q6H [facility]; Protocol Last Admin: 06/29/23 06:39 Dose: Not Given Documented By: MATTIE Non-Admin Reason: pOC WNL Prochlorperazine Edisylate (Prochlorperazine Edisylate 10 Mg/2 Ml Vial) 5 mg IVPUSH Q6H PRN PRN Reason: Nausea and Vomiting Sodium Chloride (0.9 % Sodium Chloride Flush 3 Ml Syringe) 3 ml IVFLUSH QSHIFT [facility] Last Admin: 06/29/23 09:42 Dose: 3 ml Documented By: GREGORIA Labs 06/29/23 08:16 06/28/23 04:56 Labs: Laboratory Results - last 24 hr 06/28/23 06/28/23 06/28/23 12:01 17:30 18:54 MCV MCH MCHC RDW Plt Count MPV Absolute Nucleated RBC Nucleated RBC % (auto) POC Glucose 135 H 135 H 136 H 06/29/23 06/29/23 06/29/23 05:29 07:09 08:16 MCV 88.5 MCH 30.3 MCHC 34.2 RDW 12.3 Plt Count 122 L MPV 8.0 L Absolute Nucleated RBC 0.000 Nucleated RBC % (auto) 0.0 POC Glucose 105 101 Microbiology Microbiology Results: Microbiology 06/27/23 21:40 Urine Culture - Preliminary Urine clean catch - Urine tlyer top Culture too young to evaluate. Assessment and Plan (1) Orthostatic hypotension: Status: Acute Plan This is a 53 year old female with recent admission for UTI and orthostatic hypotension who presents with nausea and vomiting Orthostatic hypotension likely secondary to dehydration from vomiting and diarrhea Continue IVF orthostatics still positive but improving; was orthostatic on last admission seen by nephrology on last admission - plan for outpatient follow up teds, orthostatic precautions Diarrhea As the patient recently received treatment with antibiotics we will assess for C diff infection cdif pending N/V improving continue IVF, supportive care advance diet Acute kidney injury secondary to dehydration/nausea/vomiting resolved with IVF acute on chronic normocytic anemia above transfusion threshold likely component of dilution H/H stable thrombocytopenia chronic recent UTI completed ceftin as outpatient repeat urine culture pending Type 2 diabetes mellitus. follow SSI, POCs. resume lantus Hyperlipidemia. Statin recently discontinued -low LDL Essential hypertension. hold amlodipine for now due to orthostatic hypotension follow bp closely Slight elevation of hCG. likely due to false elevation due to high LH from menopause as documented on previous admission DVT prophylaxis: Heparin subcut Code status: Full Requires ongoing stay for persistent orthostatic hypotension, treatment with IV fluids and close monitoring of vital signs. Quality Stroke Does the patient have a stroke diagnosis?: No VTE Prior VTE?: No VTE Risk Level:: Medical - moderate - high VTE Device Contraindication: Treatment Not Indicated VTE Drug Contraindication: N/A - Med Ordered
[2023-06-29 11:48] LABS: Glucose, Whole Blood 275 mg/dL (60-115)
[2023-06-29] MEDS: Insulin Lispro 100 UNIT/ML 3 ML VIAL SUBCUT ×3 (12:08→21:28)
--- NOTE | 2023-06-29 16:05 | MHC.CM.PN ---
CM ATTEMPTED TO MEET WITH PT PT USING [facility] TO REVISIT
[2023-06-29 16:55] LABS: Glucose, Whole Blood 197 mg/dL (60-115)
[2023-06-29 21:27] LABS: Glucose, Whole Blood 189 mg/dL (60-115)
[2023-06-29] MEDS: Insulin Glargine,Hum.rec.anlog 100 UNIT/ML 10 ML VIAL 15 UNIT SUBCUT (21:28)
[2023-06-30] VITALS (8 sets, daily range): BP systolic 81–204; BP diastolic 50–88; PULSE 78–98; RESP 16–18; TEMP 36.4–37.2; O2SAT 95–99
[2023-06-30] MEDS: 0.9 % Sodium Chloride 1,000 ML 999 ML IV
[2023-06-30] MEDS: Heparin Sodium,Porcine 5,000 UNIT/ML VIAL 5000 UNIT SUBCUT ×3 (02:01→17:52)
[2023-06-30 07:13] LABS: Glucose, Whole Blood 169 mg/dL (60-115)
[2023-06-30] MEDS: Insulin Lispro 100 UNIT/ML 3 ML VIAL SUBCUT ×3 (08:26→20:37)
[2023-06-30] MEDS: Aspirin Enteric Coated 81 MG TABLET.DR PO (08:27)
--- NOTE | 2023-06-30 10:18 | MHC.CM.PN ---
CM MET WITH PT WITH THE ASSISTANCE OF A CASHIER COURTESY BOOTH PT REPORTS SHE LIVES WITH HER SON WHO ASSISTS HER NEEDED SHE HAS NO SERVICES AND NO DME PCP: SHRUTHI YOUNG PT DECLINES TO COMPLETE A HCP DCP: HOME NO SERVICES SON TO TRANSPORT
[2023-06-30] MEDS: Lactated Ringers 1,000 ML 125 ML IVCONT (10:44)
[2023-06-30 11:12] LABS: Glucose, Whole Blood 232 mg/dL (60-115)
--- NOTE | 2023-06-30 11:41 | HO.PM.IMPN ---
Subjective Subjective Date of Service: 06/30/23 Interval History: seen and examined this morning follow up for orthostatic hypotension patient remains orthostatic, reporting ongoing dizziness no further vomiting or diarrhea Review of Systems Review of Systems: Yes all other systems are reviewed and are negative Constitutional Constitutional: Denies chills and Denies fever(s) ENT Ears, Nose, Mouth, and Throat: Reports dizziness Cardiovascular Cardiovascular: Denies chest pain and Denies dyspnea Respiratory Respiratory: Denies cough and Denies dyspnea Gastrointestinal Gastrointestinal: Denies abdominal pain Neurologic Neurologic: Reports dizziness Physical Exam Vital Signs: Vital Signs: Last Vital Signs Temp 98.8 F 06/30/23 11:10 Pulse 81 06/30/23 11:10 Resp 18 06/30/23 11:10 BP 199/88 H 06/30/23 11:10 Pulse Ox 97 06/30/23 11:10 O2 Del Method Room Air 06/30/23 11:10 BMI result Body Mass Index 21.7 Const: Other: intermittently tearful General: cooperative, comfortable, no acute distress, alert and awake Nutritional Appearance: average body habitus Orientation/consciousness: patient oriented x3 Resp: Effort & Inspection: normal respiratory effort, able to speak in complete sentences, no respiratory distress and no use of accessory muscles Auscultation: clear to auscultation bilaterally Cardio: Rate: regular rate GI: Inspection: No distended Palpation (GI): Soft to palpation and nontender Neuro: Other: grossly nonfocal General: patient oriented x3, moves all extremities and CN's II-XI intact bilaterally Extrem: General: Yes no pedal edema Objective Data Active Medications Acetaminophen (Acetaminophen 325 Mg Tablet) 975 mg PO Q6H PRN PRN Reason: Pain, Mild (Pain Scale 1-3) Aspirin (Aspirin Enteric Coated 81 Mg Tablet.) 81 mg PO DAILY [facility] Last Admin: 06/30/23 08:27 Dose: 81 mg Documented By: KENRICK Dextrose (Dextrose 50 % 25 Gm/50 Ml Syringe) 25 gm IVPUSH Q15M PRN; Protocol PRN Reason: per Hypoglycemia Standing Ord. Glucose (Glucose Gel 15 Gm Gel..Gram.) 15 gm PO Q15M PRN; Protocol PRN Reason: per Hypoglycemia Standing Ord. Heparin Sodium (Porcine) (Heparin Sodium,Porcine 5,000 Unit/Ml Vial) 5,000 unit SUBCUT Q8H [facility] Last Admin: 06/30/23 08:32 Dose: 5,000 unit Documented By: KENRICK Insulin Glargine (Insulin Glargine,Hum.Rec.Anlog 100 Unit/Ml 10 Ml Vial) 15 unit SUBCUT BEDTIME [facility] Last Admin: 06/29/23 21:28 Dose: 15 unit Documented By: MATTIE Insulin Human Lispro (Insulin Lispro 100 Unit/Ml 3 Ml Vial) 0 unit SUBCUT QIDACHS [facility]; Protocol Last Admin: 06/30/23 08:26 Dose: 2 unit Documented By: KENRICK Midodrine (Midodrine Hcl 2.5 Mg Tablet) 2.5 mg PO TID [facility] Prochlorperazine Edisylate (Prochlorperazine Edisylate 10 Mg/2 Ml Vial) 5 mg IVPUSH Q6H PRN PRN Reason: Nausea and Vomiting Sodium Chloride (0.9 % Sodium Chloride Flush 3 Ml Syringe) 3 ml IVFLUSH QSHIFT [facility] Last Admin: 06/30/23 07:12 Dose: Not Given Documented By: KENRICK Non-Admin Reason: See Note Labs 06/29/23 08:16 06/28/23 04:56 Labs: Laboratory Results - last 24 hr 06/29/23 06/29/23 06/29/23 11:02 16:45 21:16 POC Glucose 275 H 197 H 189 H 06/30/23 06/30/23 07:01 11:04 POC Glucose 169 H 232 H Microbiology Microbiology Results: Microbiology 06/27/23 21:40 Urine Culture - Final Urine clean catch - Urine tyler top Assessment and Plan (1) Orthostatic hypotension: Status: Acute Plan This is a 53 year old female with recent admission for UTI and orthostatic hypotension who presents with nausea and vomiting Orthostatic hypotension with supine hypertension persistent despite resolution of vomiting and diarrhea likely autonomic dysfunction from DM, ACTH stim test normal on last admission as well as normal TSH reports persistent dizziness teds, orthostatic precautions start low dose midodrine seen by nephrology on last admission, will need outpatient nephrology follow up lisinopril d/c on previous admission, will reduce norvasc to 2.5 mg. adjust as needed N/V/D resolved Acute kidney injury secondary to dehydration/nausea/vomiting resolved acute on chronic normocytic anemia above transfusion threshold likely component of dilution H/H stable thrombocytopenia chronic recent UTI completed ceftin as outpatient repeat urine culture pending Type 2 diabetes mellitus. follow SSI, POCs. continue lantus Hyperlipidemia. Statin recently discontinued -low LDL Essential hypertension. resume norvasc low dose 2.5 and follow bp closely Slight elevation of hCG. likely due to false elevation due to high LH from menopause as documented on previous admission DVT prophylaxis: Heparin subcut Code status: Full Requires ongoing stay for persistent orthostatic hypotension, treatment with IV fluids and close monitoring of vital signs. Quality Stroke Does the patient have a stroke diagnosis?: No VTE Prior VTE?: No VTE Risk Level:: Medical - moderate - high VTE Device Contraindication: Treatment Not Indicated VTE Drug Contraindication: N/A - Med Ordered
[2023-06-30] MEDS: amLODIPine Besylate 2.5 MG TABLET PO (11:45)
--- NOTE | 2023-06-30 11:50 | PC.NURSE ---
informed of pt's BP
[2023-06-30] MEDS: Midodrine HCl 2.5 MG TABLET PO ×2 (15:29→20:37)
[2023-06-30] MEDS: 0.9 % Sodium Chloride Flush 3 ML SYRINGE IVFLUSH (15:29)
[2023-06-30 16:46] LABS: Glucose, Whole Blood 145 mg/dL (60-115)
[2023-06-30 20:31] LABS: Glucose, Whole Blood 256 mg/dL (60-115)
[2023-06-30] MEDS: Insulin Glargine,Hum.rec.anlog 100 UNIT/ML 10 ML VIAL 15 UNIT SUBCUT (20:38)
[2023-07-01] VITALS (10 sets, daily range): BP systolic 69–187; BP diastolic 44–79; PULSE 76–101; RESP 16–20; TEMP 36.1–37.4; O2SAT 96–98
[2023-07-01] MEDS: 0.9 % Sodium Chloride Flush 3 ML SYRINGE IVFLUSH ×4 (00:07→20:47)
[2023-07-01] MEDS: Heparin Sodium,Porcine 5,000 UNIT/ML VIAL 5000 UNIT SUBCUT ×3 (00:07→15:48)
--- NOTE | 2023-07-01 06:22 | PC.NURSE ---
Low BP at 0600 d/t orthostatic hypotension. notified
[2023-07-01 08:13] LABS: Glucose, Whole Blood 227 mg/dL (60-115)
[2023-07-01] MEDS: Aspirin Enteric Coated 81 MG TABLET.DR PO (09:15)
[2023-07-01] MEDS: Insulin Lispro 100 UNIT/ML 3 ML VIAL SUBCUT ×4 (09:15→21:00)
[2023-07-01] MEDS: Midodrine HCl 2.5 MG TABLET PO (09:15)
--- NOTE | 2023-07-01 10:12 | MHC.CM.PN ---
Per ROUNDS discussion, Patient is not yet medically cleared for dc (persistent Orthostatic Hypotension);home is the goal and CM will continue to follow.
[2023-07-01 11:35] LABS: Glucose, Whole Blood 280 mg/dL (60-115)
--- NOTE | 2023-07-01 12:14 | HO.PM.IMPN ---
Subjective Subjective Date of Service: 07/01/23 Interval History: Complaining of dizziness like spinning of room symptoms going on for greater than 1 month prior to that had no issues with dizziness, complaining of blurred vision chronically for greater than 1 year denies headache, no earache, no sinus pressure, no weakness, no numbness, no nausea, no vomiting,, orthostatic blood pressures remains positive significant drop in systolic blood pressure with standing but improved from before ,no urinary symptoms . Review of Systems All other system reviewed and negative. Physical Exam Vital Signs: Vital Signs: Last Vital Signs Temp 98.2 F 07/01/23 11:48 Pulse 80 07/01/23 11:48 Resp 16 07/01/23 11:48 BP 166/76 H 07/01/23 11:48 Pulse Ox 97 07/01/23 11:48 O2 Del Method Room Air 07/01/23 11:48 BMI result Body Mass Index 21.7 Const: Other: Gen: in no acute distress HEENT: sclera anicteric, moist mucus membranes,no nystagmus Neck: supple Lungs: clear to auscultation bilaterally Heart: regular rate and rhythm, no murmurs Abd: soft, non-tender, non-distended, bowel sounds audible Ext: no edema/teds Skin: warm/well-perfused Neuro: alert and oriented x3, no focal findings Psych: appropriate affect Objective Data Active Medications Acetaminophen (Acetaminophen 325 Mg Tablet) 975 mg PO Q6H PRN PRN Reason: Pain, Mild (Pain Scale 1-3) Aspirin (Aspirin Enteric Coated 81 Mg Tablet.) 81 mg PO DAILY [facility] Last Admin: 07/01/23 09:15 Dose: 81 mg Documented By: GREGORIA Dextrose (Dextrose 50 % 25 Gm/50 Ml Syringe) 25 gm IVPUSH Q15M PRN; Protocol PRN Reason: per Hypoglycemia Standing Ord. Glucose (Glucose Gel 15 Gm Gel..Gram.) 15 gm PO Q15M PRN; Protocol PRN Reason: per Hypoglycemia Standing Ord. Heparin Sodium (Porcine) (Heparin Sodium,Porcine 5,000 Unit/Ml Vial) 5,000 unit SUBCUT Q8H [facility] Last Admin: 07/01/23 09:15 Dose: 5,000 unit Documented By: GREGORIA Insulin Glargine (Insulin Glargine,Hum.Rec.Anlog 100 Unit/Ml 10 Ml Vial) 15 unit SUBCUT BEDTIME [facility] Last Admin: 06/30/23 20:38 Dose: 15 unit Documented By: JHONNY Insulin Human Lispro (Insulin Lispro 100 Unit/Ml 3 Ml Vial) 0 unit SUBCUT QIDACHS [facility]; Protocol Last Admin: 07/01/23 12:08 Dose: 6 unit Documented By: GREGORIA Midodrine (Midodrine Hcl 5 Mg Tablet) 5 mg PO TID [facility] Prochlorperazine Edisylate (Prochlorperazine Edisylate 10 Mg/2 Ml Vial) 5 mg IVPUSH Q6H PRN PRN Reason: Nausea and Vomiting Sodium Chloride (0.9 % Sodium Chloride Flush 3 Ml Syringe) 3 ml IVFLUSH QSHIFT [facility] Last Admin: 07/01/23 09:16 Dose: 3 ml Documented By: GREGORIA Labs 06/29/23 08:16 06/28/23 04:56 Labs: Laboratory Results - last 24 hr 06/30/23 06/30/23 07/01/23 15:55 19:57 07:22 POC Glucose 145 H 256 H 227 H 07/01/23 10:50 POC Glucose 280 H Assessment and Plan (1) Orthostatic hypotension: Status: Acute Plan This is a 53 year old female with recent admission for UTI and orthostatic hypotension who presents with nausea and vomiting Orthostatic hypotension with supine hypertension persistent despite resolution of vomiting and diarrhea likely autonomic dysfunction from DM, ACTH stim test normal on last admission as well as normal TSH reports persistent dizziness teds, orthostatic precautions Will increase dose of midodrine to 5 mg t.i.d. /give additional 2 L of fluids Reconsult Nephrology due to persistent symptoms Recommend to get up slowly from sitting position, Will give antihypertensive norvasc 2.5 mg at bedtime only. N/V/D resolved was likely due to antibiotics Acute kidney injury secondary to dehydration/nausea/vomiting resolved acute on chronic normocytic anemia above transfusion threshold likely component of dilution H/H stable thrombocytopenia chronic recent UTI completed ceftin as outpatient repeat urine culture grew mixed bacterial naz Type 2 diabetes mellitus. Continue home dose of Lantus, follow SSI, POCs. Hyperlipidemia. Statin recently discontinued -low LDL Essential hypertension. resume norvasc low dose 2.5 at HS and follow bp closely Slight elevation of hCG. likely due to false elevation due to high LH from menopause as documented on previous admission DVT prophylaxis: Heparin subcut Code status: Full Requires ongoing stay for persistent orthostatic hypotension, requiring expert consultation Quality Stroke Does the patient have a stroke diagnosis?: No VTE Prior VTE?: No VTE Risk Level:: Medical - moderate - high VTE Device Contraindication: Treatment Not Indicated VTE Drug Contraindication: N/A - Med Ordered
[2023-07-01 15:42] LABS: Glucose, Whole Blood 231 mg/dL (60-115)
[2023-07-01] MEDS: 0.9 % Sodium Chloride 1,000 ML 100 ML IVCONT (15:46)
[2023-07-01] MEDS: Midodrine HCl 5 MG TABLET PO (15:48)
[2023-07-01] MEDS: amLODIPine Besylate 2.5 MG TABLET PO (20:49)
[2023-07-01] MEDS: Insulin Glargine,Hum.rec.anlog 100 UNIT/ML 10 ML VIAL 15 UNIT SUBCUT (21:00)
[2023-07-01 21:03] LABS: Glucose, Whole Blood 216 mg/dL (60-115)
[2023-07-02] MEDS: Heparin Sodium,Porcine 5,000 UNIT/ML VIAL 5000 UNIT SUBCUT ×2 (00:39→09:07)
[2023-07-02] MEDS: 0.9 % Sodium Chloride 1,000 ML 100 ML IVCONT (01:47)
[2023-07-02 04:00] VITALS: PULSE 80; RESP 16; TEMP 36.4; O2SAT 98
[2023-07-02 05:11] VITALS: BP 118/59; BP 184/81; PULSE 80; PULSE 83
[2023-07-02 05:13] VITALS: BP 83/51; PULSE 88
[2023-07-02] MEDS: Prochlorperazine Edisylate 10 MG/2 ML VIAL 5 MG IVPUSH (05:21)
[2023-07-02 07:00] VITALS: BP 190/77; PULSE 87
[2023-07-02 07:06] VITALS: BP 170/90; PULSE 79; RESP 16; TEMP 36.6; O2SAT 98
[2023-07-02 07:11] LABS: Glucose, Whole Blood 108 mg/dL (60-115)
[2023-07-02] MEDS: Midodrine HCl 5 MG TABLET PO (09:07)
[2023-07-02] MEDS: Aspirin Enteric Coated 81 MG TABLET.DR PO (09:07)
[2023-07-02 09:26] VITALS: BP 112/55; BP 171/71; PULSE 84; PULSE 87
--- NOTE | 2023-07-02 10:53 | MHC.CM.PN ---
Addendum entered by Elida Ann 07/02/23 12:36: SON IS UNABLE TO TRANSPORT HOME, WILL NEED BLS. BOOKED FOR 3:30 PM VIA [place]. SON [facility]. Original Note: DP: PT HAS BEEN MEDICALLY CLEARED FOR DC HOME WITH RESUMPTION OF [facility] SERVICES. [facility] NOTIFIED OF TODAY'S DC. SON WILL TRANSPORT
[2023-07-02 11:15] LABS: Glucose, Whole Blood 226 mg/dL (60-115)
[2023-07-02] MEDS: Insulin Lispro 100 UNIT/ML 3 ML VIAL SUBCUT (12:20)
--- NOTE | 2023-07-02 13:15 | P.PNNP_ITS ---
Subjective Subjective Date of Service: 07/02/23 Interval history: Events noted. All recent data reviewed; D/W Hospitalist Physical Exam 2 Vital Signs: Vital Signs: Last Vital Signs Temp 98 F 07/02/23 07:06 Pulse 87 07/02/23 09:26 Resp 16 07/02/23 07:06 BP 112/55 L 07/02/23 09:26 Pulse Ox 98 07/02/23 07:06 O2 Del Method Room Air 07/02/23 07:06 BMI result Body Mass Index 21.7 Const: General: comfortable and no acute distress O rientation/consciousness: patient oriented x3 HEENT: Head: Yes normocephalic Mouth: Normal oral and palatal mucosa present Eyes: EOM: EOMs intact bilaterally Neck: Neck: Yes supple Resp: Auscultation: clear to auscultation bilaterally Cardio: Jugular venous distension: no JVD Rate: regular rate GI: Palpation (GI): Soft to palpation Auscultation: normal bowel sounds : General: Yes no CVA tenderness Back/Spine/Pelvis: Back: no CVA tenderness Skin: General skin exam: no rashes or lesions noted Neuro: General: patient oriented x3 and moves all extremities Extrem: General: Yes no pedal edema Objective Data Labs 06/29/23 08:16 06/28/23 04:56 Labs: Laboratory Results - last 24 hr 07/01/23 07/01/23 07/02/23 15:35 20:52 07:05 POC Glucose 231 H 216 H 108 07/02/23 11:11 POC Glucose 226 H Microbiology Microbiology Results: Microbiology 06/27/23 21:40 Urine clean catch - Urine tyler top Urine Culture - Final Procedures Date of Service Date of Service: 07/02/23 Assessment & Plan Assessment and plan (1) Orthostatic hypotension: Status: Acute (2) Hypertension: Status: Acute Plan BP control better; She has orthostasis. Shall c/w midodrine and amlodipine . Was given intravenous fluids. Her urine output is good. I will arrange her to follow-up with me in the office once she gets discharged Progress Note: Quality Stroke Does the patient have a stroke diagnosis?: No
--- NOTE | 2023-07-02 14:30 | PM.DS ---
DS: Providers Provider Date of Service: 07/02/23 Date of admission: 06/27/23 21:37 Primary care physician: Rowan Feldman NP Consults: 07/01/23 08:15 Consult to Nephrology Routine Consulting Provider: [facility] Reason for consultation: orthostatic bp recurrent admission Has provider been notified: No DS: Diagnosis Discharge Diagnosis (1) Orthostatic hypotension: Status: Acute (2) Hypertension: Status: Acute DS: Summary Hospital Course Hospital Course: History of presenting illness: Date of Service: 06/27/23 Attending physician on admission: Mickie Gómez Chief Complaint: Nausea and vomiting Queta Loya is a 53 years old woman with past medical history significant for type 2 diabetes mellitus on insulin, hyperlipidemia, hypertension and depression presents to the emergency department complaining of persistent episodes nonbloody vomiting and watery nonbloody diarrhea since yesterday. She does complain of nausea but denied significant abdominal pain. She also mentioned feeling very dizzy and fatigued. She denied any headache, fever, chills, chest pain or shortness on breath. She denied any acute genitourinary symptoms. She denied alcohol abuse, tobacco smoking or illicit drug use. Patient was recently discharged from the hospital after she was admitted with similar symptoms. At that time she was found to have orthostatic hypotension and was treated with IV fluids. She was discharged to complete a course of cefuroxime (she only took 1 pill) for Klebsiella UTI (she initially received therapy with ceftriaxone IV). She was found to have low cortisol level. ACTH stimulation test was normal. She was also found to have normal TSH an LDH of 55 (atorvastatin was discontinued). She was also found to have Klebsiella UTI received treatment with IV ceftriaxone. In the ED, she was found to have orthostatic vital signs. Blood workup is remarkable for mild leukocytosis, 11.8. There are no significant electrolyte imbalances. Creatinine was 1.47 (it was 1.1 on discharge). LFTs and lipase are known. Beta hCG is 4 (presumed false elevation secondary to elevated LH surge 2/2 menopause, she is to follow up with Gynecology as an outpatient). ED tx: Zofran 4 mg IV, NS 2 L bolus. Hospital course: 53 year old female with recent admission for UTI and orthostatic hypotension who presents with nausea and vomiting and noted to have persistent orthostatic hypotension therefore admitted to [facility] with following diagnosis. Acute nausea, vomiting, and diarrhea likely related to and antibiotics resolved with supportive care, with no recurrence of symptoms patient tolerating diet also noted to have acute kidney injury due to GI loss improved with IV fluids. Chronic Orthostatic hypotension with supine hypertension , patient recently discharged from hospital after extensive workup that was unremarkable including negative ACTH stimulation test, normal TSH, was evaluated by Nephrology and was felt to have autonomic dysfunction from DM, patient treated with IV fluids placed on midodrine and Danilo stockings orthostatic blood pressures improved patient less dizzy therefore being discharged home on Norvasc 2.5 mg at bedtime and recommended to continue meds and follow-up with Nephrology. acute on chronic normocytic anemia likely dilutional hematocrit above transfusion threshold recommend outpatient monitoring. Chronic thrombocytopenia stable platelets recent UTI completed course of Ceftin repeat cultures grew mixed bacterial naz. Type 2 diabetes mellitus, recommend to continue home medications Lantus and insulin sliding scale. Hyperlipidemia. Statin recently discontinued -low LDL Time Attestation Discharge coordination time: Greater than 30 minutes Quality: Safe Use of Opioids Does Pt have an Active Cancer Diagnosis on the Problem List?: No Quality: Stroke Does the patient have a stroke diagnosis?: No Physical Exam Vital Signs: Vital Signs: Last Vital Signs Temp 98 F 07/02/23 07:06 Pulse 87 07/02/23 09:26 Resp 16 07/02/23 07:06 BP 112/55 L 07/02/23 09:26 Pulse Ox 98 07/02/23 07:06 O2 Del Method Room Air 07/02/23 07:06 BMI result Body Mass Index 21.7 Const: Other: Gen: Awake alert, in no acute distress HEENT: sclera anicteric, moist mucus membranes,no nystagmus Neck: supple Lungs: clear to auscultation bilaterally Heart: regular rate and rhythm, no murmurs Abd: soft, non-tender, non-distended, bowel sounds audible Ext: no edema/teds Skin: warm/well-perfused Neuro: alert and oriented x3, no focal findings Psych: appropriate affect DS: Data Data Completed and Pending Completed studies during hospitalization [Text1]: Procedures Transfusion of Nonautologous Red Blood Cells into Peripheral Vein, Percutaneous Approach (12/17/22) Labs on day of discharge: Laboratory Results - last 24 hr 07/01/23 07/01/23 07/02/23 15:35 20:52 07:05 POC Glucose 231 H 216 H 108 07/02/23 11:11 POC Glucose 226 H Discharge Plan Discharge Anticipated Discharge Date/Time: 07/02/23 09:43 Patient Disposition: Home Health Service Discharge Diagnosis: Orthostatic hypotension Acute kidney injury Nausea and vomiting Referrals: [facility] [Outside] - 3-5 Days ([facility]- A NURSE WILL CALL YOU TO SET UP VISIT) Rowan Feldman [employer] [Primary Care Provider] - 1 Week Discharge Medications: New midodrine 2.5 mg tablet 2.5 mg PO TID Qty: 90 0RF Rx Instructions: do not give last dose of day after 6PM or within 4 hrs of bedtime Continued aspirin 81 mg tablet,delayed release (DR/EC) 1 tab PO DAILY insulin lispro 100 unit/mL insulin pen See Protocol subcut TIDAC Protocol: Insulin Correction Scale Less than or equal to 110 ---- Give (units): 0 111 to 150 Give (units): 0 151 to 200 Give (units): 10 201 to 250 Give (units): 12 251 to 300 Give (units): 14 301 to 350 Give (units): 16 Greater than 350 Give (units): 18 Call MD if Blood Glucose > : 350 insulin glargine [Lantus Solostar U-100 Insulin] 100 unit/mL (3 mL) insulin pen 15 unit subcut BEDTIME (DME) FreeStyle Test Strip See Rx Instructions .Route Qty: 100 0RF Rx Instructions: As directed Changed amlodipine 5 mg tablet 2.5 mg PO DAILY Qty: 30 0RF Discontinued cefuroxime axetil 250 mg tablet 250 mg PO BID Qty: 4 0RF Discharge Orders: Discharge Order (Routine); Ordered 07/02/23 Ordered By: Lenora Mcintosh Diet: Diabetic diet Activity on Discharge: As tolerated Stand Alone Forms: Patient Portal Discharge page Care Plan Goals: Orthostatic hypotension recommend to get up slowly from sitting position Take Norvasc 2.5 mg(half tab of 5 mg) at 21:00 daily Continue Danilo stockings Drink plenty of fluids Health Concerns: Monitor blood sugars closely, follow diabetic diet Plan of Treatment: Outpatient follow-up with primary care physician Outpatient follow-up with Ophthalmology call for appointment Outpatient follow-up with Nephrology Dr. Gene Dominguez call for appointment for dizziness/orthostatic hypotension Assessment: As above
== END 2023-07-02 15:53 | disposition home health service (06) | DRG 204 ==
LOC: HO.ED 21:34 → HO.EDOVER 21:44 → HO.IMC 06-28 17:37 → HO.S3 07-01 17:40
PROVIDERS: Physician Assistant; Physician Assistant Medical; Admitting Provider Internal Medicine; Emergency Provider Emergency Medicine; PCP Nurse Practitioner Primary Care; Visit Provider Hospitalist
DX: I95.1 Orthostatic hypotension (principal); N17.9 Acute kidney failure, unspecified; D69.6 Thrombocytopenia, unspecified; E86.0 Dehydration; E11.9 Type 2 diabetes mellitus without complications; E78.5 Hyperlipidemia, unspecified; I10 Essential (primary) hypertension; Z79.4 Long term (current) use of insulin; Z79.82 Long term (current) use of aspirin; Z79.899 Other long term (current) drug therapy
CPT/HCPCS: 36415; 80048; 80053; 81001; 82947; 83690; 83735; 84702; 85025; 85027; 87086; 93005; 99285; J0737; J1644; J2405; J7120

== ENCOUNTER → 2023-06-27 15:35 | Outpatient (BNV) | payer MEDICAID, SELFPAY | PROVIDERS: Admitting Provider Internal Medicine; Emergency Provider Emergency Medicine; PCP Nurse Practitioner Primary Care; Visit Provider Internal Medicine Cardiovascular Disease | DX: R11.10 Vomiting, unspecified (principal) | CPT/HCPCS: 93010 ==

== ENCOUNTER → 2023-06-27 21:37 | Outpatient (BNV) | payer MEDICAID, SELFPAY | PROVIDERS: Admitting Provider Internal Medicine; Emergency Provider Emergency Medicine; PCP Nurse Practitioner Primary Care; Visit Provider Internal Medicine | DX: I95.1 Orthostatic hypotension (principal); E11.59 Type 2 diabetes mellitus with other circulatory complications; I10 Essential (primary) hypertension | CPT/HCPCS: 99223; 99232; 99233; 99238 ==

== ENCOUNTER → 2023-06-27 21:37 | Outpatient (BNV) | payer MEDICAID, SELFPAY | PROVIDERS: Admitting Provider Internal Medicine; Emergency Provider Emergency Medicine; PCP Nurse Practitioner Primary Care; Visit Provider Internal Medicine Nephrology | DX: I95.1 Orthostatic hypotension (principal); I10 Essential (primary) hypertension | CPT/HCPCS: 99231 ==

== ENCOUNTER 2023-07-05 12:59 | Outpatient (AMB) | payer MEDICAID, SELFPAY ==
[2023-07-05 13:25] VITALS: BP 110/60; PULSE 86; O2SAT 100; BMI 18.4
--- NOTE | 2023-07-05 13:25 | HO.NEPHOV_ITS ---
HPI HPI Comments History of Present Illness Details Queta Loya is a 53 years old woman with past medical history significant for type 2 diabetes mellitus on insulin, hyperlipidemia, hypertension and depression who recently had 2 hospitalizations. She was found to be orthostatic on both those occasions. She was accompanied by her son during this office visit. She denied any headache, fever, chills, chest pain or shortness on breath. She continues to have orthostatic symptoms when she does not take her midodrine. She denied any acute genitourinary symptoms. She denied alcohol abuse, tobacco smoking or illicit drug use. She was found to have low cortisol level. ACTH stimulation test was normal. She was also found to have normal TSH . She was also found to have Klebsiella UTI recently and received treatment with IV ceftriaxone. She has been ambulating at home. [facility] Medical History (Updated 07/05/23 @ 14:29 by Alberto Mills MD) Hypertension Symptomatic anemia Brain lesion Iron deficiency anemia HLD (hyperlipidemia) Anemia Depression Type 2 diabetes mellitus Family History Other Hypertension Social History Household Members: Caregiver Household Members Other:: Daughter Housing: Apartment Do you presently have visiting nurse or other home services: Yes (Son is caregiver and provides her with home services.) Unable to assess alcohol history related to: Unable to respond Alcohol intake: never Patient Tobacco Use Status: Never used Tobacco e-Cigarette/Vaping Use: Never Used Second Hand Smoke Exposure: No Advance Directives Date on File: 06/19/21 service: No Current occupational status: unemployed Vital Signs 07/05/23 13:25 Height 6 ft Weight 135 lb 8 oz BMI 18.4 BP 110/60 Blood Pressure Location Lt brachial Position Sitting Pulse 86 Pulse Source Pulse Oximeter Pulse Oximetry (%) 100 Oxygen Delivery Method Room Air Physical Exam Vital Signs: Last Vital Signs Pulse 86 07/05/23 13:25 BP 70/50 L 07/05/23 13:25 Pulse Ox 100 07/05/23 13:25 Oxygen Delivery Method Room Air 07/05/23 13:25 BMI result Body Mass Index 18.4 Const General: comfortable and no acute distress Orientation/consciousness: patient oriented x3 HEENT Head: Yes normocephalic Mouth: Normal oral and palatal mucosa present Eyes EOM: EOMs intact bilaterally Neck Neck: Yes supple Resp Auscultation: clear to auscultation bilaterally Cardio Jugular venous distension: no JVD Rate: regular rate GI Palpation (GI): Soft to palpation Auscultation: normal bowel sounds General: Yes no CVA tenderness Back/Spine/Pelvis Back: no CVA tenderness Skin General skin exam: no rashes or lesions noted Neuro General: patient oriented x3 and moves all extremities Extrem General: Yes no pedal edema Assessment & Plan Assessment & Plan (1) Orthostatic hypotension: Code(s): I95.1 - Orthostatic hypotension (2) Hypertension: Code(s): I10 - Essential (primary) hypertension Plan Queta continues to have orthostatic hypotension especially when she does not take midodrine. She denies postprandial hypotension. I increased the midodrine to 5 mg 3 times a day. Given her low cortisol in the past, even with normal AC TH stimulation test, I may consider starting her on low-dose prednisone and fludrocortisone at the next visit. She may benefit from an endocrinology and cardiology consultation. She continues to wear Danilo stockings all the time. She is going to follow with me for continued care. I answered all her and her son's questions. Follow-up appointment given. Medications: Changed From midodrine do not give last dose of day after 6PM or within 4 hrs of bedtime 2.5 mg PO TID 90 tabs 0RF To midodrine 5 mg PO TID 90 tabs 3RF Coding Level of Care Code Est Pt Level 4 (35461) Diagnoses Orthostatic hypotension I95.1 Hypertension I10 Results Reviewed Nephrology Results: Hgb 9.5 g/dl (12.0-16.0) L 06/29/23 WBC 6.6 X10*3/uL (4.8-10.8) 06/29/23 Plt Count 122 X10*3/uL (160-400) L 06/29/23 Sodium 141 mmol/L (135-145) 06/28/23 Potassium 3.9 mmol/L (3.3-5.1) 06/28/23 Chloride 110 mmol/L (96-108) H 06/28/23 Carbon Dioxide 23 mmol/L (22-29) 06/28/23 BUN 28 mg/dL (9-16) H 06/28/23 Creatinine 1.08 mg/dL (0.5-1.4) 06/28/23 Calcium 8.5 mg/dL (8.4-10.2) 06/28/23 Urine Protein 300 (3+) mg/dL (Neg-Trace) H 06/27/23
== END 2023-07-05 16:43 | disposition home or self-care (01) ==
PROVIDERS: PCP Nurse Practitioner Primary Care; Visit Provider Internal Medicine Nephrology
DX: I95.1 Orthostatic hypotension (principal); I10 Essential (primary) hypertension
CPT/HCPCS: 99214

== ENCOUNTER → 2023-07-05 12:59 | Outpatient (BNVA) | payer MEDICAID, SELFPAY | PROVIDERS: PCP Nurse Practitioner Primary Care; Visit Provider Internal Medicine Nephrology | DX: I95.1 Orthostatic hypotension (principal); I10 Essential (primary) hypertension | CPT/HCPCS: 99212 ==

== ENCOUNTER 2023-08-28 17:20 | Emergency (ER) | payer MEDICAID, SELFPAY ==
--- NOTE | ~2023-08-28 | CT_ITS ---
EXAMINATION: CT HEAD WITHOUT CONTRAST CLINICAL INFORMATION: Altered mental status. COMPARISON: CT head 07/21/2022. MR brain 07/23/2022. TECHNIQUE: Contiguous axial imaging was performed from the skull base to vertex without intravenous administration of contrast. This CT examination was performed using dose optimization techniques as appropriate, variously including the following: *Automated exposure control *Adjustment of mA and/or kV according to patient size (this includes techniques or standardized protocols for targeted exams where dose is matched to indication/reason for exam; i.e. extremities or head) *Use of iterative reconstruction technique DLP: 581 mGy-cm FINDINGS: Stable asymmetric loss of parenchymal volume within the left anterior temporal lobe with corresponding ex vacuo enlargement of the left temporal horn. There is no evidence of acute intracranial hemorrhage or edematous territorial infarction. No abnormal mass effect or midline shift. No extra-axial fluid collections. No acute soft tissue or osseous abnormalities. Moderate mucoperiosteal thickening of the paranasal sinuses. No air-fluid levels. The mastoids and middle ear cavities are clear. CT/CT head/brain wo IV con IMPRESSION: 1. No evidence of acute intracranial hemorrhage or edematous territorial infarction. 2. Stable asymmetric loss of parenchymal volume within the left anterior temporal lobe.
--- NOTE | ~2023-08-28 | XR_ITS ---
EXAMINATION: XR CHEST CLINICAL INFORMATION: Weakness. COMPARISON: Chest radiograph 06/19/2023. TECHNIQUE: Frontal view of the chest was obtained. FINDINGS: Normal appearance of the cardiomediastinal silhouette. Increased interstitial markings with new small bilateral pleural effusions. No pneumothorax. No acute osseous findings. XR/XR chest 1V IMPRESSION: Increased interstitial markings with new small bilateral pleural effusions. Findings are indeterminate and could be related with an atypical infectious/inflammatory process and some degree of pulmonary edema. Recommend short-term follow-up.
[2023-08-28 17:31] VITALS: BP 180/86; PULSE 89; O2SAT 94
--- NOTE | 2023-08-28 17:52 | ED_ITS ---
HPI - General Adult General Chief complaint: General Medical Stated complaint: PEDAL EDEMA, FACE SWELLING Time Seen by Provider: 08/28/23 18:11 Source: patient, RN notes reviewed, old records reviewed and hide handler Mode of arrival: EMS Limitations: language barrier and other (Patient is a very poor historian) History of Present Illness HPI narrative: 53-year-old female with past medical history significant for type 2 diabetes on insulin, hyperlipidemia, hypertension, depression, orthostatic hypotension presents for evaluation of multiple complaints. Patient reports ?I do not know, they just sent me here when I asked why she was in the hospital today. She does complain of leg swelling and blurry vision She reports that her vision has been blurry for ?at least 4 months. ? She states that she tries to check her sugars but ?I can not see the numbers. ? Patient denies any pain anywhere She was admitted here on 06/27/2023 for orthostatic hypotension She reports that she has been living at home since Related Data Home Medications ?Medication ?Instructions ?Recorded ?Confirmed aspirin 81 mg tablet,delayed 1 tab PO DAILY 07/21/22 06/27/23 release insulin glargine 100 unit/mL (3 15 unit subcut BEDTIME 07/21/22 06/27/23 mL) subcutaneous pen (Lantus Solostar U-100 Insulin) insulin lispro 100 unit/mL See Protocol subcut TIDAC 07/21/22 06/27/23 subcutaneous pen Previous Rx's ?Medication ?Instructions ?Recorded blood sugar diagnostic (FreeStyle #100 ea 10/02/22 Test strips) amlodipine 5 mg tablet 2.5 mg (1/2 x 5 mg) PO DAILY #30 07/02/23 tabs midodrine 5 mg tablet 5 mg PO TID #90 tabs 07/05/23 Allergies Allergy/AdvReac Type Severity Reaction Status Date / Time shrimp Allergy Swelling Verified 08/28/23 17:59 Review of Systems 2 Constitutional: Constitutional: Denies body ache(s), Denies chills and Denies headache(s) Eyes: Eyes: Reports blurry vision ENT: Denies headache(s) and Denies sore throat Cardiovascular: Cardiovascular: Denies chest pain, Reports leg edema and Denies dyspnea Respiratory: Respiratory: Denies cough and Denies dyspnea Gastrointestinal: Gastrointestinal: Denies abdominal pain, Denies nausea and Denies vomiting Musculoskeletal: Musculoskeletal: Denies back pain Integumentary/Breasts: Skin/Breast: Denies rash Neurologic: Denies headache(s) [facility] Past Medical History Medical History (Updated 08/29/23 @ 00:53 by Gene Jenkins) Hypertension Symptomatic anemia Brain lesion Iron deficiency anemia HLD (hyperlipidemia) Anemia Depression Type 2 diabetes mellitus Family History Family History Other Hypertension Social History Social History Household Members: Caregiver Household Members Other:: Daughter Housing: Apartment Do you presently have visiting nurse or other home services: Yes (Son is caregiver and provides her with home services.) Unable to assess alcohol history related to: Unable to respond Alcohol intake: never Patient Tobacco Use Status: Never used Tobacco Smoked in Last 30 Days: No e-Cigarette/Vaping Use: Never Used Second Hand Smoke Exposure: No Use of substances other than those prescribed or required for medical reasons: No Advance Directives: Yes Advance Directives on File: Yes Advance Directives Date on File: 06/19/21 Do you have a plan to hurt others: No Plan service: No Current occupational status: unemployed Physical Exam ED Vital Signs: Vital Signs - 24 hr 08/28/23 17:54 08/28/23 22:32 08/28/23 23:40 Temperature 97.8 F 97.9 F Pulse Rate 89 90 87 Respiratory Rate 18 18 Blood Pressure 221/94 H 195/78 H 198/87 H Pulse Oximetry 97 98 Oxygen Delivery Method Room Air Room Air 08/28/23 23:41 08/29/23 00:24 Temperature Pulse Rate 83 Respiratory Rate 16 Blood Pressure 198/87 H 182/74 H Pulse Oximetry 96 Oxygen Delivery Method Room Air BMI result Body Mass Index 27.4 Const General: healthy appearing, comfortable, no acute distress, alert and awake Nutritional Appearance: well nourished Orientation/consciousness: oriented to person, oriented to place and No oriented to time HENMT Head: Yes normocephalic and Yes atraumatic Eyes Eyelids: Yes eyelids normal Conjunctivae: conjunctivae normal Sclerae: sclerae normal Corneas: corneas normal Pupils: Equal, round and reactive pupils present EOM: EOMs intact bilaterally Direct Ophthalmoscopy: normal light reflex and no photophobia Neck Neck: Yes full ROM Resp Effort & Inspection: normal respiratory effort, able to speak in complete sentences, no audible wheezes and not labored Auscultation: clear to auscultation bilaterally Cardio Other: 1+ bilateral pitting edema to lower extremities Rate: regular rate Rhythm: regular rhythm GI Inspection: No distended Palpation (GI): Soft to palpation, not firm, nontender, no guarding and not rigid Skin General skin exam: elasticity normal Neuro General: oriented to person, oriented to place and No oriented to time Cranial nerves: Yes Equal, round and reactive pupils present and Yes Bilaterally intact EOM present Cognition (Neuro): normal cognition Extrem Other: Moving all extremities well without any obvious deformities Course Course Course Narrative: This is an RME: Additional HPI, ROS, PE not included below will be deferred to primary provider. 53 yo f with pmhx of HTN presents with numbness to legs and unable to see b/l Reevaluation(s) Reevaluation #1: Patient re-evaluated, she reports that she still has bilateral foot pain. There are no rashes edema, wounds. This may be related to neuropathy. Patient's chest x-ray shows increased interstitial markings with new small bilateral pleural effusions. Findings are indeterminate and could be related to atypical infectious/inflammatory process and some degree of pulmonary edema. I feel that pulmonary edema is more likely. The patient denies any fevers, cough, shortness breath. I did give her a dose of Lasix. The patient reiterates that she has bilateral eye pain. She tells me that she is seen the eye doctor on Saturday09/03/2023. I did check her intra-ocular pressures that was 20 mmHg on the right and 13 mm Hg on the left. Again despite the complaints of eye pain and blurry vision, she reports these symptoms have been going on for quite some time. She reports at least a few months. She can wait for her outpatient appointment Time: 00:37 Medications Administered Discontinued Medications Generic Name Dose Route Start Last Admin Trade Name Emiliana PRN Reason Stop Dose Admin Furosemide 20 mg 08/28/23 20:46 08/28/23 23:41 Furosemide 20 Mg/2 Ml Vial IVPUSH 08/28/23 20:47 20 mg ONCE ONE Administration Protocol Labetalol HCl 5 mg 08/28/23 20:46 08/28/23 23:40 Labetalol Hcl 100 Mg/20 Ml Vial IVPUSH 08/28/23 20:47 5 mg ONCE ONE Administration Medical Decision Making Medical Decision Making [facility] Narrative: 53-year-old female with past medical history as documented above presents for evaluation of leg swelling and blurry vision. She denies any chest pain shortness breath, headaches. She states that the blurry vision has been going on for several months. Her legs appear mildly swollen. Her lungs are clear to auscultation, low suspicion for acute CHF exacerbation. The patient's vital signs are significant for hypertension 221/94. She is afebrile, she has not hypoxic. She appears comfortable at rest. Plan for workup including CT scan of the brain, labs, chest x-ray to evaluate for CHF. Differential Diagnosis Differential Diagnoses: The differential diagnosis associated with the presentation includes Hyperglycemia Medication noncompliance Hypertension Hypertensive urgency Macular degeneration Dependent edema Lab Data [facility] Lab Attestation statement: I reviewed the patient's lab results. No leukocytosis. The patient does have anemia with a hemoglobin 8.5 and hematocrit 25.3. She does have a history of chronic anemia. Patient's electrolytes are within normal limits, CO2 is elevated to 30, BUN is seen elevated to 18 but a normal creatinine of 1.01 patient's glucose is elevated to 180 but no evidence of DKA 08/28/23 18:34 08/28/23 18:34 Labs: Lab Results 08/28/23 08/28/23 08/28/23 Range/Units 18:34 20:23 22:36 WBC 8.0 (4.8-10.8) X10*3/uL RBC 2.88 L (4.20-5.50) X10*6/uL Hgb 8.5 L (12.0-16.0) g/dl Hct 25.3 L (37.0-47.0) % MCV 87.8 (80.0-98.0) fL MCH 29.5 (27.0-33.0) pg MCHC 33.6 (31.0-35.0) g/dl RDW 13.5 (11.0-16.0) % Plt Count 133 L (160-400) X10*3/uL MPV 7.8 L (9.4-12.3) fL Immature Gran % (Auto) 0.4 (0.0-0.4) % Neut % (Auto) 57.5 (45-73) % Lymph % (Auto) 35.4 (20-40) % Nelson % (Auto) 4.1 (2-11) % Eos % (Auto) 2.3 (0-4) % Baso % (Auto) 0.3 (0-2) % Lymph # (Auto) 2.8 (1.2-4.9) X10*3/uL Nelson # (Auto) 0.3 (0.1-1.2) X10*3/uL Eos # (Auto) 0.2 (0.0-0.4) X10*3/uL Baso # (Auto) 0.0 (0.0-0.2) X10*3/uL Abs Immat Gran (auto) 0.03 (0.00-0.03) X10*3/uL Absolute Neuts (auto) 4.6 (2.0-8.3) x10*3/uL Absolute Nucleated RBC 0.000 (0.0-0.012) X10*3/uL Nucleated RBC % (auto) 0.0 (0.0-0.2) /100WBC PT 11.1 (11.1-13.3) SEC INR 0.9 (0.9-1.1) Sodium 142 (135-145) mmol/L Potassium 4.3 (3.3-5.1) mmol/L Chloride 107 (96-108) mmol/L Carbon Dioxide 30 H (22-29) mmol/L Anion Gap 9 L (12-20) BUN 18 H (9-16) mg/dL Creatinine 1.01 (0.5-1.4) mg/dL Estim Creat Clear Calc 66.7 Estimated GFR 57 Random Glucose 180 H (60-115) mg/dL Calcium 9.5 D (8.4-10.2) mg/dL Magnesium 2.2 (1.6-2.6) mg/dL Total Bilirubin 0.4 (0.0-1.0) mg/dL AST 16 (5-31) U/L ALT 17 (0-31) U/L Alkaline Phosphatase 94 (39-117) U/L Troponin I High Sens < 2.7 D (<3.5-17.0) ng/L B-Natriuretic Peptide 64 (<100) pg/mL Total Protein 7.6 (6.5-8.0) g/dL Albumin 3.4 L (3.5-5.0) g/dL Beta-Hydroxybutyrate 0.05 (0.02-0.27) mmol/L Urine Color Yellow Urine Appearance Cloudy Urine pH 5.5 (5.0-9.0) Ur Specific [place] 1.025 (1.005-1.025) Urine Protein 300 (3+) H (Neg-Trace) mg/dL Urine Glucose (UA) Negative (Negative) mg/dL Urine Ketones Negative (Negative) mg/dL Urine Blood Moderate (2+) H (Negative) Urine Nitrite Negative (Negative) Ur Leukocyte Esterase Moderate (2+) H (Negative) Urine RBC 6-10 H (0-2) /HPF Urine WBC >50 H (0-5) /HPF Ur Squamous Epith Cells 3-5 (0-2) /HPF Urine Bacteria 4+ (None Seen) Hyaline Casts 6-10 (0-2) /LPF Radiology Impression Discussion of test interpretation with radiology: I have reviewed the radiologist's reading. Radiologist Impression: Increased interstitial markings with new small bilateral pleural effusions. Findings are indeterminate and could be related with an atypical infectious/inflammatory process and some degree of pulmonary edema. Recommend short-term follow-up. Discharge Plan Discharge Clinical Impression: Acute eye pain, Hypertension, Bilateral foot pain, UTI (urinary tract infection) Patient Disposition: Home, Self-Care Additional Instructions: Your workup in the ER today was reassuring. You do have evidence of a urinary tract infection Take the antibiotic as prescribed Your blood pressure was severely elevated and required medication to control this It is important to follow-up with her eye doctor appointment as soon as possible Return for new or worsening symptoms Return if you develop cough, shortness of breath or chest pain Prescriptions: No Action aspirin 81 mg tablet,delayed release (DR/EC) 1 tab PO DAILY insulin lispro 100 unit/mL insulin pen See Protocol subcut TIDA Protocol: Insulin Correction Scale Less than or equal to 110 ---- Give (units): 0 111 to 150 Give (units): 0 151 to 200 Give (units): 10 201 to 250 Give (units): 12 251 to 300 Give (units): 14 301 to 350 Give (units): 16 Greater than 350 Give (units): 18 Call MD if Blood Glucose > : 350 insulin glargine [Lantus Solostar U-100 Insulin] 100 unit/mL (3 mL) insulin pen 15 unit subcut BEDTIME (DME) FreeStyle Test Strip See Rx Instructions .Route Qty: 100 0RF Rx Instructions: As directed amlodipine 5 mg tablet 2.5 mg PO DAILY Qty: 30 0RF midodrine 5 mg tablet 5 mg PO TID Qty: 90 3RF Interventions: LWBS Worksheet Last Done: 08/28/23 18:01 Print Language: [place]
[2023-08-28 17:54] VITALS: BP 221/94; PULSE 89; RESP 18; TEMP 36.6; O2SAT 97; BMI 27.4
--- NOTE | 2023-08-28 17:55 | ECG_ITS ---
Test Reason : WEAKNESS Blood Pressure : / mmHG Vent. Rate : 087 BPM Atrial Rate : 087 BPM P-R Int : 150 ms QRS Dur : 066 ms QT Int : 376 ms P-R-T Axes : 047 006 006 degrees QTc Int : 452 ms Normal sinus rhythm Normal ECG When compared with ECG of 27-JUN-2023 16:12, Nonspecific T wave abnormality now evident in Inferior leads Nonspecific T wave abnormality no longer evident in Lateral leads Referred By: Tonio Vicente Electronically Signed By:JAYA STOLL MD
[2023-08-28 18:39] LABS: MANUAL DIFF FLAG NO
[2023-08-28 18:46] LABS: Basophils Percent Auto 0.3 % (0-2); Eosinophils Absolute Auto 0.2 X10*3/uL (0.0-0.4); Eosinophils Percent Auto 2.3 % (0-4); Hematocrit 25.3 % (37.0-47.0); Hemoglobin 8.5 g/dl (12.0-16.0); Imm Gran Abs Auto 0.03 X10*3/uL (0.00-0.03); Imm Gran Pct Auto 0.4 % (0.0-0.4); Lymphocytes Absolute Auto 2.8 X10*3/uL (1.2-4.9); Lymphocytes Percent Auto 35.4 % (20-40); Mean Corpuscular HGB Conc 33.6 g/dl (31.0-35.0); Mean Corpuscular Hemoglobin 29.5 pg (27.0-33.0); Mean Corpuscular Volume 87.8 fL (80.0-98.0); Mean Platelet Volume 7.8 fL (9.4-12.3); Monocytes Absolute Auto 0.3 X10*3/uL (0.1-1.2); Monocytes Percent Auto 4.1 % (2-11); Neutrophils Absolute Auto 4.6 x10*3/uL (2.0-8.3); Neutrophils Percent Auto 57.5 % (45-73); Platelet Count 133 X10*3/uL (160-400); Red Blood Count 2.88 X10*6/uL (4.20-5.50); Red Cell Distribution Width 13.5 % (11.0-16.0)
[2023-08-28 18:47] LABS: INTERNATIONAL NORM RATIO 0.9 (0.9-1.1); Prothrombin Time 11.1 SEC (11.1-13.3)
[2023-08-28 19:04] LABS: Alanine Aminotransferase 17 U/L (0-31); Albumin Level 3.4 g/dL (3.5-5.0); Alkaline Phosphatase 94 U/L (39-117); Anion Gap 9 (12-20); Aspartate Amino Transferase 16 U/L (5-31); Bilirubin Total 0.4 mg/dL (0.0-1.0); Blood Urea Nitrogen 18 mg/dL (9-16); Calcium 9.5 mg/dL (8.4-10.2); Carbon Dioxide 30 mmol/L (22-29); Chloride 107 mmol/L (96-108); Creatinine Clr Calc Pharmacy 66.7; Estimated Glomerular Filt Rate 57; Glucose Random 180 mg/dL (60-115); Magnesium 2.2 mg/dL (1.6-2.6); Potassium 4.3 mmol/L (3.3-5.1); Sodium 142 mmol/L (135-145); Total Protein 7.6 g/dL (6.5-8.0)
[2023-08-28 19:12] LABS: Troponin-I High Sensitivity < 2.7 ng/L (<3.5-17.0)
[2023-08-28 19:37] LABS: B Type Natriuretic Peptide 64 pg/mL (<100)
[2023-08-28 20:43] LABS: Beta-Hydroxybutyrate 0.05 mmol/L (0.02-0.27)
[2023-08-28 22:32] VITALS: BP 195/78; PULSE 90; RESP 18; TEMP 36.6; O2SAT 98
[2023-08-28 22:42] LABS: Appearance Urine Cloudy; Color Urine Yellow; Glucose Urine UA Negative (Negative); Leukocyte Esterase Urine Moderate (2+) (Negative); Nitrite Urine Negative (Negative); PH 5.5 (5.0-9.0); Specific Gravity - Urine 1.025 (1.005-1.025); UMIC TRIGGER UACC YES; Urine Blood Moderate (2+) (Negative); Urine Ketones Negative (Negative); Urine Protein 300 (3+) mg/dL (Neg-Trace)
[2023-08-28 22:52] LABS: Bacteria Urine 4+ (None Seen); UACC Culture Trigger YES; WBC Urine >50 /HPF (0-5)
[2023-08-28 23:40] VITALS: BP 198/87; PULSE 87
[2023-08-28] MEDS: Labetalol HCL 100 MG/20 ML VIAL IVPUSH (23:40)
[2023-08-28 23:41] VITALS: BP 198/87
[2023-08-28] MEDS: Furosemide 20 MG/2 ML VIAL IVPUSH (23:41)
[2023-08-29 00:24] VITALS: BP 182/74; PULSE 83; RESP 16; O2SAT 96
[2023-08-29] MEDS: cefuroxime axetiL 250 MG TABLET PO (00:57)
--- NOTE | 2023-08-29 01:36 | PC.NURSE ---
Discharge instructions discussed with patient-patient verbalized understanding. Patient does not have a ride home, she reports her son does not have a car. This RN attempted to contact Bin, patient's son by phone, no answer's to phone calls. Plan for patient to stay at ED until morning, when her son would be able to come to ED to and assist patient to return home by a bus or shuttle. Patient verbalized understanding and in agreement.
[2023-08-29 02:34] VITALS: BP 189/85; PULSE 87; RESP 18; TEMP 36.7; O2SAT 96
--- NOTE | 2023-08-29 02:56 | PC.NURSE ---
Dr. Matson made aware of high BP's 180's-190'/76-85, P 82-87, asymptomatic: denies headache, SOB/chest pain, chronic blurry vision x4 month. Per MD no new orders at this time.
[2023-08-29 04:46] VITALS: BP 170/80; PULSE 77; RESP 18; TEMP 36.6; O2SAT 96
--- NOTE | 2023-08-29 05:18 | MHC.EDTECH ---
Patient ambulated with a 1 assist to the bathroom
[2023-08-29 06:00] VITALS: BP 202/85; PULSE 83; RESP 18; TEMP 36.6; O2SAT 96
[2023-08-29 06:14] VITALS: BP 202/85
[2023-08-29] MEDS: amLODIPine Besylate 5 MG TABLET PO (06:14)
[2023-08-29 08:04] VITALS: BP 202/85; PULSE 83; RESP 18; TEMP 36.6; O2SAT 96
== END 2023-08-29 07:45 | disposition home or self-care (01) ==
PROVIDERS: Physician Assistant; Emergency Provider Emergency Medicine Emergency Medical Services
DX: M79.672 Pain in left foot (principal); M79.671 Pain in right foot; H57.13 Ocular pain, bilateral; N39.0 Urinary tract infection, site not specified; I10 Essential (primary) hypertension; E11.65 Type 2 diabetes mellitus 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; Z79.4 Long term (current) use of insulin
CPT/HCPCS: 36415; 70450; 71045; 80053; 81001; 82010; 83735; 83880; 84484; 85025; 85610; 87086; 87088; 87186; 93005; 96374; 96375; 99284; 99285; J1920; J1940

== ENCOUNTER → 2023-08-28 17:55 | Outpatient (BNV) | payer MEDICAID, SELFPAY | PROVIDERS: Emergency Provider Emergency Medicine Emergency Medical Services; Visit Provider Internal Medicine Cardiovascular Disease | DX: R53.1 Weakness (principal) | CPT/HCPCS: 93010 ==

== ENCOUNTER 2023-09-16 01:42 | Inpatient (IN) | payer MEDICAID, SELFPAY ==
[2023-09-16] VITALS (15 sets, daily range): BP systolic 153–220; BP diastolic 71–143; PULSE 86–99; RESP 13–22; TEMP 36.4–37.1; O2SAT 85–100; BMI 31.2
--- NOTE | 2023-09-16 | ECG_ITS ---
Test Reason : DYSPNEA Blood Pressure : / mmHG Vent. Rate : 099 BPM Atrial Rate : 099 BPM P-R Int : 146 ms QRS Dur : 072 ms QT Int : 376 ms P-R-T Axes : 071 026 024 degrees QTc Int : 482 ms Normal sinus rhythm Possible Anterior infarct , age undetermined Abnormal ECG When compared with ECG of 28-AUG-2023 18:38, No significant change was found Referred By: Generic ED Physician Electronically Signed By:JAYA STOLL MD
--- NOTE | ~2023-09-16 | US_ITS ---
EXAMINATION: US VENOUS ULTRASOUND WITH DOPPLER LOWER EXTREMITY, BILATERAL CLINICAL INFORMATION: Bilateral lower extremity swelling. COMPARISON: None available. TECHNIQUE: Ultrasound of the deep veins is performed from the hip to the calf with compression sonography and color and pulse Doppler assessment. Spectral analysis with color-flow imaging is performed. FINDINGS: RIGHT: There is normal venous compression and respiratory variation and augmented flow. The visualized common femoral vein, superficial femoral vein, profunda femoral vein, popliteal vein, and the trifurcation region shows no evidence of deep venous thrombosis. LEFT: There is normal venous compression and respiratory variation and augmented flow. The visualized common femoral vein, superficial femoral vein, profunda femoral vein, popliteal vein, and the trifurcation region shows no evidence of deep venous thrombosis. If the patient's symptoms persist, followup ultrasound in 5 days 7 days might be of value to exclude proximal propagation from a non-visualized calf vein. There are bilateral benign-appearing inguinal lymph nodes with the largest on the right measuring 2.1 x 0.6 x 1.3 cm. There is a thin cortex with prominent fatty hilum. Right popliteal fossa fluid collection measures 3.0 x 0.6 x 1.8 cm. No internal color Doppler flow. US/US venous duplex LE BI IMPRESSION: No DVT demonstrated in the bilateral lower extremities. Right popliteal fossa fluid collection measuring 2.0 x 0.6 x 1.8 cm.
--- NOTE | ~2023-09-16 | NM_ITS ---
Lexiscan Myocardial perfusion study Indication: Congestive heart failure, assess for coronary disease and ischemia Technique: The patient was brought in for a Lexiscan perfusion study on 09/18/2023 and was injected 0.4 mg of Lexiscan intravenously. Within a minute of this injection 25 mCi of sestamibi was given intravenously. Images were obtained using the SPECT gamma camera interlaced with the gating device. Images were obtained in supine position. Resting perfusion study was performed on 09/17/2023. Patient was administered 25 mCi of sestamibi intravenously at rest. Images were then obtained in supine position. Images were processed with the software and compared side to side in short axis, horizontal long axis and vertical long axis views. Total DLP 95mGy-cm. Findings: Raw acquisition reviewed. The stress perfusion study showed no significant perfusion abnormality. Both uncorrected as well as CT attenuation corrected images were reviewed. The gated study shows mildly diminished LV systolic function with calculated LVEF of 50%. LV cavity is normal in size. The gated study shows globally reduced wall thickening and contraction of segments. Resting study shows no significant perfusion abnormality. Gating at rest reveals normal wall motion with ejection fraction at 51%. The findings are consistent with no clear reversible or fixed perfusion abnormality. NM/NM joaquina perf SPECT rest & str Impression: 1. Myocardial perfusion imaging study shows normal myocardial perfusion. 2. Gated LVEF is 50% during stress and 51% during rest. 3. Transient ischemic dilatation not present. EKG component of the test reported separately.
--- NOTE | ~2023-09-16 | US_ITS ---
EXAMINATION: ULTRASOUND RENAL WITH DOPPLER CLINICAL INFORMATION: Resistant hypertension. COMPARISON: CT abdomen and pelvis 01/21/2023 and 12/07/2022. TECHNIQUE: Real-time grayscale, color Doppler, and duplex Doppler evaluation of the kidneys and renal vasculature was performed. FINDINGS: RENAL MEASUREMENTS: Right: 10.8 x 5.4 x 5.5 cm (Sag x AP x TV) Left: 11.1 x 6.2 x 5.3 cm (Sag x AP x TV) The renal parenchyma appears normal. No hydronephrosis or nephrolithiasis. Upon review of recent CT scans, there is no significant atherosclerosis of the renal artery origins visible. DOPPLER INTERROGATION: AORTA: Mid aorta: 148 cm/sec RIGHT MAIN RENAL ARTERY: Proximal: 53 cm/sec Mid: 75 cm/sec Distal: Not visible. LEFT MAIN RENAL ARTERY: Proximal: 83 cm/sec Mid: 99 cm/sec Distal: 141 cm/sec RENAL-AORTIC RATIO (RAR): Right: Not calculated due to mid aortic velocity outside of range 40-100 cm/s making RAR inaccurate. Left: Not calculated due to mid aortic velocity outside of range 40-100 cm/s making RAR inaccurate. SEGMENTAL RESISTIVE INDICES: Right: 0.79-0.83 Left: 0.75-0.83 RENAL VEINS: Right: Patent with normal waveform. Left: Patent with normal waveform. US/US renal doppler IMPRESSION: No evidence of hemodynamically significant renal artery stenosis. Mildly elevated resistive indices bilaterally consistent with chronic medical renal disease. No hydronephrosis.
--- NOTE | ~2023-09-16 | XR_ITS ---
EXAMINATION: XR CHEST CLINICAL INFORMATION: Shortness of breath COMPARISON: 08/28/2023 TECHNIQUE: Frontal view of the chest was obtained. FINDINGS: Lung volumes are symmetric. There are symmetric hazy bibasilar opacities and suspected small pleural effusions. Central vasculature appears mildly prominent. No evidence of pneumothorax. The cardiomediastinal silhouette is stable. No acute osseous findings are seen. XR/XR chest 1V IMPRESSION: Hazy bibasilar opacities and suspected small pleural effusions. Central vasculature appears mildly prominent, and overall findings suggest developing pulmonary edema in the proper clinical setting.
--- NOTE | ~2023-09-16 | US_ITS ---
EXAMINATION: ULTRASOUND RENAL WITH DOPPLER CLINICAL INFORMATION: Resistant hypertension. COMPARISON: CT abdomen and pelvis 01/21/2023 and 12/07/2022. TECHNIQUE: Real-time grayscale, color Doppler, and duplex Doppler evaluation of the kidneys and renal vasculature was performed. FINDINGS: RENAL MEASUREMENTS: Right: 10.8 x 5.4 x 5.5 cm (Sag x AP x TV) Left: 11.1 x 6.2 x 5.3 cm (Sag x AP x TV) The renal parenchyma appears normal. No hydronephrosis or nephrolithiasis. Upon review of recent CT scans, there is no significant atherosclerosis of the renal artery origins visible. DOPPLER INTERROGATION: AORTA: Mid aorta: 148 cm/sec RIGHT MAIN RENAL ARTERY: Proximal: 53 cm/sec Mid: 75 cm/sec Distal: Not visible. LEFT MAIN RENAL ARTERY: Proximal: 83 cm/sec Mid: 99 cm/sec Distal: 141 cm/sec RENAL-AORTIC RATIO (RAR): Right: Not calculated due to mid aortic velocity outside of range 40-100 cm/s making RAR inaccurate. Left: Not calculated due to mid aortic velocity outside of range 40-100 cm/s making RAR inaccurate. SEGMENTAL RESISTIVE INDICES: Right: 0.79-0.83 Left: 0.75-0.83 RENAL VEINS: Right: Patent with normal waveform. Left: Patent with normal waveform. US/US renal BI IMPRESSION: No evidence of hemodynamically significant renal artery stenosis. Mildly elevated resistive indices bilaterally consistent with chronic medical renal disease. No hydronephrosis.
[2023-09-16 01:57] LABS: Glucose, Whole Blood 381 mg/dL (60-115)
[2023-09-16 02:14] LABS: Basophils Percent Auto 0.4 % (0-2); Eosinophils Absolute Auto 0.1 X10*3/uL (0.0-0.4); Eosinophils Percent Auto 1.8 % (0-4); Hematocrit 23.5 % (37.0-47.0); Hemoglobin 7.7 g/dl (12.0-16.0); Imm Gran Abs Auto 0.03 X10*3/uL (0.00-0.03); Imm Gran Pct Auto 0.4 % (0.0-0.4); Lymphocytes Absolute Auto 2.3 X10*3/uL (1.2-4.9); Lymphocytes Percent Auto 29.2 % (20-40); MANUAL DIFF FLAG NO; Mean Corpuscular HGB Conc 32.8 g/dl (31.0-35.0); Mean Corpuscular Volume 91.4 fL (80.0-98.0); Mean Platelet Volume 8.4 fL (9.4-12.3); Monocytes Absolute Auto 0.4 X10*3/uL (0.1-1.2); Monocytes Percent Auto 5.4 % (2-11); Neutrophils Percent Auto 62.8 % (45-73); Platelet Count 122 X10*3/uL (160-400); Red Blood Count 2.57 X10*6/uL (4.20-5.50); Red Cell Distribution Width 15.3 % (11.0-16.0); White Blood Count 7.9 X10*3/uL (4.8-10.8)
[2023-09-16 02:36] LABS: Troponin-I High Sensitivity 7.6 ng/L (<3.5-17.0)
[2023-09-16 02:38] LABS: Alanine Aminotransferase 21 U/L (0-31); Alkaline Phosphatase 92 U/L (39-117); Anion Gap 11 (12-20); Aspartate Amino Transferase 25 U/L (5-31); Bilirubin Total 0.2 mg/dL (0.0-1.0); Blood Urea Nitrogen 17 mg/dL (9-16); Calcium 8.6 mg/dL (8.4-10.2); Carbon Dioxide 26 mmol/L (22-29); Chloride 106 mmol/L (96-108); Creatinine Clr Calc Pharmacy 50.1; Estimated Glomerular Filt Rate 50; Glucose Random 400 mg/dL (60-115); Magnesium 2.2 mg/dL (1.6-2.6); Potassium 4.2 mmol/L (3.3-5.1); Sodium 139 mmol/L (135-145); Total Protein 6.9 g/dL (6.5-8.0)
--- NOTE | 2023-09-16 02:46 | MHC.EDTECH ---
purewick in place for pt to use for bathroom per request of RN, pt O2 sats decrease with movement/ambulation
[2023-09-16 02:51] LABS: Influenza A PCR NEGATIVE (Negative); Influenza B PCR NEGATIVE (Negative); Resp Syncy Virus RNA Qual PCR NEGATIVE (Negative); SARS COV2 PCR INHOUSE NEGATIVE (Negative)
[2023-09-16 02:57] LABS: B Type Natriuretic Peptide 175 pg/mL (<100)
--- NOTE | 2023-09-16 03:11 | ED.SOB ---
HPI - SOB/Dyspnea General Chief Complaint: Dyspnea Stated Complaint: SOB Time Seen by Provider: 09/16/23 02:49 History of Present Illness HPI Narrative: Patient is a 53-year-old female with a history of diabetes, hyperlipidemia, hypertension, depression presents today with coughing upper respiratory symptoms generalized malaise. Patient from home. Was noted to have a decreased oxygenation of 85% on room air. No history of congestive heart failure in the past. Never had a heart attack [place] stroke. Related Data Home Medications ?Medication ?Instructions ?Recorded ?Confirmed aspirin 81 mg tablet,delayed 1 tab PO DAILY 07/21/22 06/27/23 release insulin glargine 100 unit/mL (3 15 unit subcut BEDTIME 07/21/22 06/27/23 mL) subcutaneous pen (Lantus Solostar U-100 Insulin) insulin lispro 100 unit/mL See Protocol subcut TIDAC 07/21/22 06/27/23 subcutaneous pen Previous Rx's ?Medication ?Instructions ?Recorded blood sugar diagnostic (FreeStyle #100 ea 10/02/22 Test strips) amlodipine 5 mg tablet 2.5 mg (1/2 x 5 mg) PO DAILY #30 07/02/23 tabs midodrine 5 mg tablet 5 mg PO TID #90 tabs 07/05/23 cefuroxime axetil 250 mg tablet 250 mg PO Q12H #14 tabs 08/29/23 Allergies Allergy/AdvReac Type Severity Reaction Status Date / Time shrimp Allergy Swelling Verified 09/16/23 01:57 Review of Systems Review of Systems: Positive generalized malaise positive coughing positive upper respiratory symptoms Yes all other systems are reviewed and are negative PMFSH Past Medical History Attestation statement: The following information was validated with the patient. Medical History Hypertension Symptomatic anemia Brain lesion Iron deficiency anemia HLD (hyperlipidemia) Anemia Depression Type 2 diabetes mellitus Family History Family History Other Hypertension Social History Social History Household Members: Caregiver Household Members Other:: Daughter Housing: Apartment Do you presently have visiting nurse or other home services: Yes (Son is caregiver and provides her with home services.) Unable to assess alcohol history related to: Unable to respond Alcohol intake: never Patient Tobacco Use Status: Never used Tobacco Smoked in Last 30 Days: No e-Cigarette/Vaping Use: Never Used Second Hand Smoke Exposure: No Advance Directives: Yes Advance Directives on File: Yes Advance Directives Date on File: 06/19/21 Do you have a plan to hurt others: No Plan Nutrition Risks: No Nutritional Risk Patient : No service: No Current occupational status: unemployed Physical Exam Vital Signs: Vital Signs: Last Vital Signs Temp 98.4 F 09/16/23 06:07 Pulse 89 09/16/23 06:09 Resp 17 09/16/23 06:09 BP 189/80 H 09/16/23 06:09 Pulse Ox 97 09/16/23 06:09 O2 Del Method Nasal Cannula 09/16/23 06:09 O2 Flow Rate 2 09/16/23 06:09 BMI result Body Mass Index 31.2 Medications Administered Generic Name Dose Route Start Last Admin Trade Name Freq PRN Reason Stop Dose Admin Enoxaparin Sodium 40 mg 09/16/23 06:00 09/16/23 06:04 Enoxaparin Sodium 40 Mg/0.4 Ml Syringe SUBCUT 40 mg Q24H JM Administration Insulin Glargine 12 unit 09/16/23 06:00 09/16/23 06:04 Insulin Glargine,Hum.Rec.Anlog 100 Unit/Ml 10 Ml Vial SUBCUT 12 unit BEDTIME JM Administration Discontinued Medications Generic Name Dose Route Start Last Admin Trade Name Freq PRN Reason Stop Dose Admin Albuterol Sulfate 2.5 mg 09/16/23 03:15 09/16/23 03:28 Albuterol Sulfate (0.083%) 2.5 Mg/3 Ml Vial.Neb INHALE 09/16/23 03:16 2.5 mg ONCE ONE Administration Azithromycin 500 mg 09/16/23 03:05 09/16/23 03:46 Azithromycin 500 Mg Tablet PO 09/16/23 03:06 500 mg ONCE ONE Administration Furosemide 40 mg 09/16/23 04:06 09/16/23 04:16 Furosemide 40 Mg/4 Ml Vial IVPUSH 09/16/23 04:07 40 mg ONCE ONE Administration Protocol Sodium Chloride 1,000 mls @ 999 mls/hr 09/16/23 03:15 09/16/23 03:48 Ns IV 09/16/23 04:15 Not Given .Q1H1M JM Ceftriaxone Sodium 1 gm/ 50 mls @ 100 mls/hr 09/16/23 03:05 09/16/23 03:47 Sodium Chloride IV 09/16/23 03:34 Infused ONCE ONE Infusion Labetalol HCl 10 mg 09/16/23 05:30 09/16/23 06:02 Labetalol Hcl 100 Mg/20 Ml Vial IVPUSH 09/16/23 05:31 10 mg ONCE ONE Administration Nitroglycerin 1 inch 09/16/23 04:57 09/16/23 05:03 Nitroglycerin 2 % Oint 1 Gm Packet TRANSDERMA 09/16/23 04:58 1 inch ONCE ONE Administration Medical Decision Making Medical Decision Making [facility] Narrative: Patient is a 53-year-old female presents today with having shortness of breath. Feeling like she is drowning. She is resting suddenly felt short of breath. Did not have any chest pain. Feels a sugar was elevated patient has a long history of diabetes normally takes insulin. Patient's chest x-ray showed bilateral infiltrates by my interpretation consistent with possibly CHF. My interpretation patient's EKG showed a sinus rhythm heart rate is 100 LA QRS QTC within normal limits is no acute ST segment elevation. Differential includes pneumonia. Antibiotic was empirically started. However when white count came back normal felt patient's risk of pneumonia is low. More likely patient has congestive heart failure. Lasix was given. Nitroglycerin was given as patient has an extremely elevated blood pressure of 200 over 100. Symptomatically patient improving. Patient's white count is normal hemoglobin is 7.7 this suggests slightly lower than previous of 8 point 5. Rectal exam was done with nursing present it was heme negative brown stool patient's flu COVID RSV were all negative. Case discussed with hospitalist team. Will admit patient for further evaluation of congestive heart failure Differential Diagnosis Differential Diagnoses: The differential diagnosis associated with the presentation includes CHF, pneumonia, anemia Admission/Observation Consideration of admission/observation: Escalation of care including admission/observation considered Consult Healthcare Provider Management of the patient was discussed with: Hospitalist Lab Data [facility] Lab Attestation statement: I reviewed the patient's lab results. 09/16/23 02:09 09/16/23 02:09 Labs: Lab Results 09/16/23 09/16/23 09/16/23 Range/Units 01:54 02:09 03:15 WBC 7.9 (4.8-10.8) X10*3/uL RBC 2.57 L (4.20-5.50) X10*6/uL Hgb 7.7 L (12.0-16.0) g/dl Hct 23.5 L (37.0-47.0) % MCV 91.4 (80.0-98.0) fL MCH 30.0 (27.0-33.0) pg MCHC 32.8 (31.0-35.0) g/dl RDW 15.3 (11.0-16.0) % Plt Count 122 L (160-400) X10*3/uL MPV 8.4 L (9.4-12.3) fL Immature Gran % (Auto) 0.4 (0.0-0.4) % Neut % (Auto) 62.8 (45-73) % Lymph % (Auto) 29.2 (20-40) % [place] % (Auto) 5.4 (2-11) % Eos % (Auto) 1.8 (0-4) % Baso % (Auto) 0.4 (0-2) % Lymph # (Auto) 2.3 (1.2-4.9) X10*3/uL [place] # (Auto) 0.4 (0.1-1.2) X10*3/uL Eos # (Auto) 0.1 (0.0-0.4) X10*3/uL Baso # (Auto) 0.0 (0.0-0.2) X10*3/uL Abs Immat Gran (auto) 0.03 (0.00-0.03) X10*3/uL Absolute Neuts (auto) 5.0 (2.0-8.3) x10*3/uL Absolute Nucleated RBC 0.000 (0.0-0.012) X10*3/uL Nucleated RBC % (auto) 0.0 (0.0-0.2) /100WBC Sodium 139 (135-145) mmol/L Potassium 4.2 (3.3-5.1) mmol/L Chloride 106 (96-108) mmol/L Carbon Dioxide 26 (22-29) mmol/L Anion Gap 11 L (12-20) BUN 17 H (9-16) mg/dL Creatinine 1.14 (0.5-1.4) mg/dL Estim Creat Clear Calc 50.1 Estimated GFR 50 POC Glucose 381 H* (60-115) mg/dL Random Glucose 400 H* (60-115) mg/dL Lactic Acid 1.2 (0.5-2.0) mmol/L Calcium 8.6 D (8.4-10.2) mg/dL Magnesium 2.2 (1.6-2.6) mg/dL Total Bilirubin 0.2 (0.0-1.0) mg/dL AST 25 (5-31) U/L ALT 21 (0-31) U/L Alkaline Phosphatase 92 (39-117) U/L Troponin I High Sens 7.6 D (<3.5-17.0) ng/L B-Natriuretic Peptide 175 H (<100) pg/mL Total Protein 6.9 (6.5-8.0) g/dL Albumin 3.0 L (3.5-5.0) g/dL Stool Occult Blood NEGATIVE (NEGATIVE) Influenza Type A (PCR) NEGATIVE (Negative) Influenza Type B (PCR) NEGATIVE (Negative) RSV RNA Qual (PCR) NEGATIVE (Negative) SARS-CoV-2 RNA (RT-PCR) NEGATIVE (Negative) 09/16/23 Range/Units 05:53 WBC (4.8-10.8) X10*3/uL RBC (4.20-5.50) X10*6/uL Hgb (12.0-16.0) g/dl Hct (37.0-47.0) % MCV (80.0-98.0) fL MCH (27.0-33.0) pg MCHC (31.0-35.0) g/dl RDW (11.0-16.0) % Plt Count (160-400) X10*3/uL MPV (9.4-12.3) fL Immature Gran % (Auto) (0.0-0.4) % Neut % (Auto) (45-73) % Lymph % (Auto) (20-40) % [place] % (Auto) (2-11) % Eos % (Auto) (0-4) % Baso % (Auto) (0-2) % Lymph # (Auto) (1.2-4.9) X10*3/uL [place] # (Auto) (0.1-1.2) X10*3/uL Eos # (Auto) (0.0-0.4) X10*3/uL Baso # (Auto) (0.0-0.2) X10*3/uL Abs Immat Gran (auto) (0.00-0.03) X10*3/uL Absolute Neuts (auto) (2.0-8.3) x10*3/uL Absolute Nucleated RBC (0.0-0.012) X10*3/uL Nucleated RBC % (auto) (0.0-0.2) /100WBC Sodium (135-145) mmol/L Potassium (3.3-5.1) mmol/L Chloride (96-108) mmol/L Carbon Dioxide (22-29) mmol/L Anion Gap (12-20) BUN (9-16) mg/dL Creatinine (0.5-1.4) mg/dL Estim Creat Clear Calc Estimated GFR POC Glucose 273 H (60-115) mg/dL Random Glucose (60-115) mg/dL Lactic Acid (0.5-2.0) mmol/L Calcium (8.4-10.2) mg/dL Magnesium (1.6-2.6) mg/dL Total Bilirubin (0.0-1.0) mg/dL AST (5-31) U/L ALT (0-31) U/L Alkaline Phosphatase (39-117) U/L Troponin I High Sens (<3.5-17.0) ng/L B-Natriuretic Peptide (<100) pg/mL Total Protein (6.5-8.0) g/dL Albumin (3.5-5.0) g/dL Stool Occult Blood (NEGATIVE) Influenza Type A (PCR) (Negative) Influenza Type B (PCR) (Negative) RSV RNA Qual (PCR) (Negative) SARS-CoV-2 RNA (RT-PCR) (Negative) Independent Interpretation I performed an independent interpretation of an: EKG (Sinus heart rate is 100 LA QRS QTC normal no acute ST segment elevation) and Rhythm Strip Interpretation: Sinus heart rate is 100 Radiology Impression Discussion of test interpretation with radiology: I have reviewed the radiologist's reading. (Of the chest x-ray) External Record Review External record reviewed: Inpatient record Chronic Conditions Patient?s care impacted by: Diabetes and Hypertension Critical Care Time Critical Care Time Critical Care Time: Yes Total Critical Care Time: 40 Attestation: I have personally provided 40 minutes of critical care time exclusive of time spent on separately billable procedures. ?Time includes review of lab data, radiology results, discussion with consultants, and monitoring for potential decompensation. ?Interventions were performed as documented above Discharge Plan Discharge Clinical Impression: Congestive heart failure Patient Disposition: Admitted As Inpatient Prescriptions: No Action aspirin 81 mg tablet,delayed release (DR/EC) 1 tab PO DAILY insulin lispro 100 unit/mL insulin pen See Protocol subcut TIDAC Protocol: Insulin Correction Scale Less than or equal to 110 ---- Give (units): 0 111 to 150 Give (units): 0 151 to 200 Give (units): 10 201 to 250 Give (units): 12 251 to 300 Give (units): 14 301 to 350 Give (units): 16 Greater than 350 Give (units): 18 Call MD if Blood Glucose > : 350 insulin glargine [Lantus Solostar U-100 Insulin] 100 unit/mL (3 mL) insulin pen 15 unit subcut BEDTIME (DME) FreeStyle Test Strip See Rx Instructions .Route Qty: 100 0RF Rx Instructions: As directed amlodipine 5 mg tablet 2.5 mg PO DAILY Qty: 30 0RF cefuroxime axetil 250 mg tablet 250 mg PO Q12H Qty: 14 0RF midodrine 5 mg tablet 5 mg PO TID Qty: 90 3RF Print Language: Persian
[2023-09-16 03:24] LABS: OBS Int Ctl Valid YES; OBS1 NEGATIVE (NEGATIVE)
[2023-09-16] MEDS: cefTRIAXone sodium 1 GM in 0.9 % Sodium Chloride 50 ML IV (03:26)
[2023-09-16] MEDS: Albuterol Sulfate (0.083%) 2.5 MG/3 ML VIAL.NEB INHALE (03:28)
[2023-09-16 03:31] LABS: Lactic Acid 1.2 mmol/L (0.5-2.0)
[2023-09-16] MEDS: Azithromycin 500 MG TABLET PO (03:46)
[2023-09-16] MEDS: Furosemide 40 MG/4 ML VIAL IVPUSH ×2 (04:16→08:55)
[2023-09-16] MEDS: Nitroglycerin 2 % Oint 1 GM Packet 1 INCH TRANSDERMA (05:03)
--- NOTE | 2023-09-16 05:32 | PM.IMHP ---
History of Present Illness Date of Service: 09/16/23 Chief Complaint: Dyspnea This is a 53-year-old female with pertinent history of insulin-dependent diabetes mellitus, hyperlipidemia, hypertension, mood disorder who presents to the emergency department for evaluation of dyspnea. Patient states her symptoms started on the day of presentation. She has been having dyspnea which is worse with laying down. Also complains of intermittent dry cough and swelling of bilateral lower extremities. No fever, chills or sputum production. No sick contacts. No chest pain, palpitations, abdominal pain, changes in urinary or bowel habits. History obtained with the help of motor vehicle parts interpreter. In the emergency department, patient's blood pressure found to be elevated. Imaging concerning for pulmonary edema and patient was satting 85% on room air Review of Systems Constitutional: Constitutional: Reports fatigue Cardiovascular: Cardiovascular: Reports dyspnea on exertion and Reports orthopnea Respiratory: Respiratory: Reports dyspnea on exertion Gastrointestinal: Gastrointestinal: Reports no additional gastrointestinal complaints Genitourinary: Genitourinary: Reports no additional female genitourinary complaints Endocrine: Endocrine: Reports fatigue [facility] Medical History Hypertension Symptomatic anemia Brain lesion Iron deficiency anemia HLD (hyperlipidemia) Anemia Depression Type 2 diabetes mellitus Family History Other Hypertension Social History Household Members: Caregiver Household Members Other:: Daughter Housing: Apartment Do you presently have visiting nurse or other home services: Yes (Son is caregiver and provides her with home services.) Unable to assess alcohol history related to: Unable to respond Alcohol intake: never Patient Tobacco Use Status: Never used Tobacco Smoked in Last 30 Days: No e-Cigarette/Vaping Use: Never Used Second Hand Smoke Exposure: No Advance Directives: Yes Advance Directives on File: Yes Advance Directives Date on File: 06/19/21 Do you have a plan to hurt others: No Plan Patient : No service: No Current occupational status: unemployed Meds Allergies Allergy/AdvReac Type Severity Reaction Status Date / Time shrimp Allergy Swelling Verified 09/16/23 01:57 Active Medications: Current Medications Labetalol HCl (Labetalol Hcl 100 Mg/20 Ml Vial) 10 mg IVPUSH ONCE ONE Stop: 09/16/23 05:31 Home Medications ?Medication ?Instructions ?Recorded ?Confirmed ?Last Taken ?Type aspirin 81 mg tablet,delayed 1 tab PO DAILY 07/21/22 06/27/23 06/25/23 History release insulin glargine 100 unit/mL (3 15 unit subcut BEDTIME 07/21/22 06/27/23 06/25/23 History mL) subcutaneous pen (Lantus Solostar U-100 Insulin) insulin lispro 100 unit/mL See Protocol subcut TIDAC 07/21/22 06/27/23 06/25/23 History subcutaneous pen Physical Exam Vital Signs and Narrative: Vital Signs: Last Vital Signs Temp 97.6 F 09/16/23 01:58 Pulse 97 09/16/23 03:28 Resp 22 H 09/16/23 03:28 BP 161/94 H 09/16/23 03:09 Pulse Ox 94 09/16/23 03:09 O2 Del Method Nasal Cannula 09/16/23 03:09 O2 Flow Rate 2 09/16/23 03:09 BMI result Body Mass Index 31.2 Elderly female lying in bed in distress on supplemental oxygen Neck supple, + JVD Regular rate and rhythm, S1-S2 heard Bilateral crackles present Abdomen soft nontender, no guarding, no rigidity Patient is awake, alert and oriented to self, place, time and person ; no focal motor deficit Psych: Normal mood Bilateral pedal edema present Results Labs 09/16/23 02:09 09/16/23 02:09 Labs: Laboratory Results - last 24 hr 09/16/23 09/16/23 09/16/23 01:54 02:09 03:15 MCV 91.4 MCH 30.0 MCHC 32.8 RDW 15.3 Plt Count 122 L MPV 8.4 L Immature Gran % (Auto) 0.4 Neut % (Auto) 62.8 Lymph % (Auto) 29.2 [place] % (Auto) 5.4 Eos % (Auto) 1.8 Baso % (Auto) 0.4 Lymph # (Auto) 2.3 [place] # (Auto) 0.4 Eos # (Auto) 0.1 Baso # (Auto) 0.0 Abs Immat Gran (auto) 0.03 Absolute Neuts (auto) 5.0 Absolute Nucleated RBC 0.000 Nucleated RBC % (auto) 0.0 Anion Gap 11 L Estim Creat Clear Calc 50.1 Estimated GFR 50 POC Glucose 381 H* Random Glucose 400 H* Lactic Acid 1.2 Calcium 8.6 D Magnesium 2.2 Total Bilirubin 0.2 AST 25 ALT 21 Alkaline Phosphatase 92 Troponin I High Sens 7.6 D B-Natriuretic Peptide 175 H Total Protein 6.9 Albumin 3.0 L Stool Occult Blood NEGATIVE Influenza Type A (PCR) NEGATIVE Influenza Type B (PCR) NEGATIVE RSV RNA Qual (PCR) NEGATIVE SARS-CoV-2 RNA (RT-PCR) NEGATIVE Imaging Radiologist's Impressions: Impressions Chest X-Ray 09/16/23 02:13 IMPRESSION: Hazy bibasilar opacities and suspected small pleural effusions. Central vasculature appears mildly prominent, and overall findings suggest developing pulmonary edema in the proper clinical setting. Assessment and Plan (1) Hypoxia: Status: Acute (2) CHF (congestive heart failure): Status: Acute Plan This is a 53-year-old female with pertinent history of insulin-dependent diabetes mellitus, hyperlipidemia, hypertension, mood disorder who presents to the emergency department for evaluation of dyspnea. #. Acute hypoxemic respiratory failure due to decompensated congestive heart failure in the setting of hypertensive emergency: Will admit patient and initiate IV diuresis. Strict I's and O's. Low-salt diet. Obtaining transthoracic echocardiogram. IV labetalol given in the ER with appropriate lowering of blood pressure, continue to monitor blood pressure and titrate antihypertensives. Has a history of orthostatic hypotension #. Insulin-dependent diabetes mellitus 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: Initiating basal plus insulin regimen #. Normocytic anemia thrombocytopenia-chronic. Above transfusion threshold Med rec pending DVT prophylaxis: Lovenox Full code. Discussed with patient at bedside Admit as inpatient and will require two night minimum hospital stay for supplemental oxygen, IV diuresis (as above), which is not possible in a lesser acute setting. Quality Stroke Does the patient have a stroke diagnosis?: No VTE Prior VTE?: No VTE Risk Level:: Medical - moderate - high VTE Device Contraindication: Treatment Not Indicated VTE Drug Contraindication: N/A - Med Ordered
[2023-09-16 05:57] LABS: Glucose, Whole Blood 273 mg/dL (60-115)
[2023-09-16] MEDS: Labetalol HCL 100 MG/20 ML VIAL 10 MG IVPUSH (06:02)
[2023-09-16] MEDS: Enoxaparin Sodium 40 MG/0.4 ML SYRINGE SUBCUT (06:04)
[2023-09-16] MEDS: Insulin Glargine,Hum.rec.anlog 100 UNIT/ML 10 ML VIAL 12 UNIT SUBCUT ×2 (06:04→22:10)
--- NOTE | 2023-09-16 07:00 | CA_ITS ---
Transthoracic Echocardiogram Patient (Last, First, Middle): Queta Loya, Gender: Female Date of : 1970 Age: 53 Procedure Date: 09/16/2023 Procedure Type: Transthoracic Echocardiogram Location: ER Height: 152.4 cm Weight: 72.12 kg BSA: 1.69 m2 Heart Rate: 90 bpm BP: 163 / 73 mmHg Business Process Expert: BRYAN Brown MD: Sherry Douglass MD Ice Cream Freezer: Yohannes Troncoso MD Symptoms: CHF Study Quality: Adequate ECG Rhythm: Sinus Conclusions: - 1. Normal LV ejection fraction 55-60% with mild LVH with impaired relaxation filling pattern and elevated filling pressures 2. Mildly dilated left atrium 3. Normal cardiac valvular Dopplers 4. Normal RV systolic pressure and normal right atrial pressures 5. No significant pericardial effusion Findings Left Ventricle Normal left ventricular size and systolic function. There is mildly increased left ventricular wall thickness. The visually estimated ejection fraction is between 55-60%. Spectral Doppler is indicative of an impaired relaxation filling pattern. Elevated filling pressures. E/E prime ratio is >15, consistent with elevated filling pressures. Right Ventricle Normal right ventricular cavity size and systolic function. Atria The left atrium is mildly dilated. There is no evidence of interatrial shunt. The right atrium is normal in size. Aortic Valve Normal aortic valve structure and function. There is mild calcification of the aortic valve. There is no aortic valve stenosis. There is no aortic valve regurgitation. Mitral Valve There is mild anterior and posterior mitral leaflet thickening. There is trace mitral valve regurgitation. There is no mitral valve stenosis. Pulmonic Valve The pulmonic valve was not well visualized. Tricuspid Valve Likely normal tricuspid valve structure and function. There is mild tricuspid valve regurgitation. The right ventricular systolic pressure is normal. The right ventricular systolic pressure is 20 mmHg. Normal right atrial pressure. There is no evidence of pulmonary hypertension. Great Vessels All visible segments of the aorta are normal in size. The pulmonary artery was not well visualized. Venous The inferior vena cava is normal in size and collapses greater than 50% with inspiration. Pericardium/Pleural There is no evidence of pericardial effusion. There is a moderate left sided pleural effusion. Prior Study Comparison No prior study available for comparison. Measurements 2D Linear Measurements IVSd: 1.17 0.6-0.9/0.6-1.0 cm LVIDd: 4.17 3.9-5.3/4.2-5.9 cm LVIDd Index: 2.47 2.4-3.2/2.2-3.1 cm/m2 LVIDs: 2.96 2.0-3.6 cm LVPWd: 1.17 0.7-1.1 cm LA Diam: 3.40 2.7-3.8/3.0-4.0 cm LAIDs Index: 2.01 1.5-2.3 cm/m2 LV Mass: 211.52 67-162/88-224 g LV Mass Index: 125.16 43-95/49-115 g/m2 LVOT Diam: 2.00 3.0+(-)1.3 cm 2D Systolic Function EF 4C: 61.10 >55% EF 2C: 58.50 >55% EF BiP: 57.90 >55% Mitral Valve MV Pk E: 1.03 MV PK A: 1.16 MV Decel Time: 226.00 E/A: 0.90 E'Lateral: 6.74 E'Medial: 5.98 E/E' Med: 17.20 E/E' Lat: 15.30 PHT: 66.00 MVA PHT: 3.33 Decel [place]: 4.58 Aortic Valve AoV Pk Nathan: 1.28 AoV Mn Nathan: 0.93 AoV VTI: 0.28 AoV Pk Grad: 7.00 Aov Mn Grad: 4.00 MARY JANE Cont.VTI: 2.51 LVOT LVOT Pk Nathan: 0.98 LVOT Mn Nathan: 0.75 LVOT VTI: 0.22 LVOT Pk Grad: 4.00 LVOT Mn Grad: 2.00 LVOT Diam: 2.00 LVOT Area: 3.14 Diastolic Function MV Pk E: 1.03 MV Pk A: 1.16 E/A: 0.90 E'Medial: 5.98 E/E' Med: 17.20 E' Laterial: 6.74 E/E' Lat: 15.30 Right Ventricle TAPSE (mm): 22.20 TVS' Nathan: 11.20 Tricuspid Valve TR Pk Nathan: 2.05 TR Pk Grad: 17.00 RA Press: 3.00 RVSP: 20.00 Great Vessels Aorta Sinus of Valsalva: 2.60 2.0-3.5 cm Ao Asc: 2.80 2.1-3.4 cm Pulmonary Valve PV Pk Nathan: 1.06 Peak PV Grad: 4.00 Updated in Other Vendor System with Status of Final Yohannes Trocnoso MD electronically signed on 09/16/2023 11:52:59 AM with status of Final
[2023-09-16 07:30] LABS: Glucose, Whole Blood 235 mg/dL (60-115)
[2023-09-16 08:21] LABS: Immature Retic Fraction 31.2 % (3.0-15.9); Retic HGB Equivalent 31.5 pg (30.0-35.0); Reticulocyte Percent 5.8 % (0.5-1.8); Reticulocytes Absolute 0.148 X10*6/uL (0.026-0.095)
[2023-09-16 08:31] LABS: Iron 52 mcg/dL (30-160); Lactate Dehydrogenase 362 U/L (122-220); Percent Iron Saturation 25 % (15-50); Total Iron Binding Capacity 208 mcg/dL (228-428); Unsaturated Iron Binding 156 ug/dL
[2023-09-16 08:52] LABS: Ferritin 202 ng/mL (10-250)
[2023-09-16] MEDS: Insulin Lispro 100 UNIT/ML 3 ML VIAL SUBCUT ×3 (08:53→22:11)
[2023-09-16] MEDS: 0.9 % Sodium Chloride Flush 3 ML SYRINGE IVFLUSH ×2 (08:55→22:11)
--- NOTE | 2023-09-16 09:01 | MHC.CM.PN ---
CM MET WITH PT WITH PRODUCTION INSPECTOR PT LIVES WITH HER SON AND IS INDEPENDENT WITH CARE SHE HAS A WALKER FOR DME AND NO SERVICES PT REPORTS SHE DOES NOT USE OXYGEN AT HOME, BUT FEELS SHE NEEDS IT PT DECLINES TO COMPLETE A HCP PT DOES NOT KNOW THE NAME OF HER PCP, BUT GOES TO THE [facility] DCP: HOME WITH NO SERVICES PT SAYS HER SON WILL ARRANGE TRANSPORT
--- NOTE | 2023-09-16 11:10 | P.CONCA_ITS ---
History of Present Illness History of Present Illness Date of Service: 09/16/23 Requesting physician: Javan Cardenas Consult reason: congestive heart failure Chief complaint: Dyspnea Narrative: I was consulted to see Queta in cardiology consultation today for acute congestive heart failure. Patient is 53-year-old female, history obtained with help of conference interpreter at bedside. Patient came to the hospital with sudden-onset shortness of breath. She says day before yesterday she was doing well had no unusual diet or any changes in her health. She had no associated chest pain. Yesterday she suddenly became short of breath associated with chest pressure came to the hospital was noted to be in congestive heart failure and hypertensive urgency. She was treated for both. Today she says her breathing is better although says this is because of oxygen. She has not had any exertional chest pain recently. Denies any prior history of CAD or myocardial infarction. Denies any prior history of renal artery stenosis. She does have history of prior orthostatic hypertension seems like she is on possibly midodrine at home. She is longstanding history of diabetes which as per her is well controlled although this is unclear. She also says she is markedly labile blood pressure at home. She is amlodipine on home as well. She follows with primary care physician at [facility]. Her creatinine on admission appears stable although she has evidence of CKD. She also has significant anemia of unclear etiology although she denies any recent significant bleeding. Blood pressure this morning is still 180. Review of Systems 2 Constitutional: Constitutional: Reports no additional constitutional complaints Eyes: Eyes: Reports no additional eye complaints Cardiovascular: Cardiovascular: Reports chest pain at rest, Denies syncope, Reports leg edema, Reports lightheadedness, Denies Loss of Consciousness, Denies palpitations and Reports dyspnea Respiratory: Respiratory: Reports no additional respiratory complaints and Reports dyspnea Gastrointestinal: Gastrointestinal: Reports no additional gastrointestinal complaints Genitourinary: Genitourinary: Reports no additional female genitourinary complaints Musculoskeletal: Musculoskeletal: Reports no additional musculoskeletal complaints Integumentary/Breasts: Skin/Breast: Reports system reviewed and no additional complaints, except as docu Neurologic: Reports system reviewed and no additional complaints, except as documented and Denies syncope Endocrine: Endocrine: Denies palpitations PMFSH Past Medical History Medical History Hypertension Symptomatic anemia Brain lesion Iron deficiency anemia HLD (hyperlipidemia) Anemia Depression Type 2 diabetes mellitus Family History Family History Other Hypertension Social History Social History Household Members: Caregiver Household Members Other:: Daughter Housing: Apartment Do you presently have visiting nurse or other home services: Yes (Son is caregiver and provides her with home services.) Unable to assess alcohol history related to: Unable to respond Alcohol intake: never Patient Tobacco Use Status: Never used Tobacco Smoked in Last 30 Days: No e-Cigarette/Vaping Use: Never Used Second Hand Smoke Exposure: No Advance Directives: Yes Advance Directives on File: Yes Advance Directives Date on File: 06/19/21 Do you have a plan to hurt others: No Plan Nutrition Risks: No Nutritional Risk Patient : No service: No Current occupational status: unemployed Meds Allergies Allergy/AdvReac Type Severity Reaction Status Date / Time shrimp Allergy Swelling Verified 09/16/23 01:57 Active Medications: Current Medications Acetaminophen (Acetaminophen 325 Mg Tablet) 650 mg PO Q6H PRN PRN Reason: Pain, Mild (Pain Scale 1-3) Enoxaparin Sodium (Enoxaparin Sodium 40 Mg/0.4 Ml Syringe) 40 mg SUBCUT Q24H JM Last Admin: 09/16/23 06:04 Dose: 40 mg Furosemide (Furosemide 40 Mg/4 Ml Vial) 40 mg IVPUSH DAILY JM; Protocol Last Admin: 09/16/23 08:55 Dose: 40 mg Glucose (Glucose Gel 15 Gm Gel..Gram.) 15 gm PO Q15M PRN; Protocol PRN Reason: per Hypoglycemia Standing Ord. Dextrose (D10) 250 mls @ 750 mls/hr IV Q15M PRN; Protocol PRN Reason: per Hypoglycemia Standing Ord. Insulin Glargine (Insulin Glargine,Hum.Rec.Anlog 100 Unit/Ml 10 Ml Vial) 12 unit SUBCUT BEDTIME JM Last Admin: 09/16/23 06:04 Dose: 12 unit Insulin Human Lispro (Insulin Lispro 100 Unit/Ml 3 Ml Vial) 0 unit SUBCUT QIDACHS JM; Protocol Last Admin: 09/16/23 08:53 Dose: 1 unit Melatonin (Melatonin 3 Mg Tablet) 6 mg PO BEDTIME PRN PRN Reason: Insomnia Ondansetron HCl (Ondansetron Hcl 4 Mg/2 Ml Vial) 4 mg IVPUSH Q8H PRN PRN Reason: Nausea and Vomiting Sodium Chloride (0.9 % Sodium Chloride Flush 3 Ml Syringe) 3 [facility] Last Admin: 09/16/23 08:55 Dose: 3 ml Home Medications ?Medication ?Instructions ?Recorded ?Confirmed ?Last Taken ?Type aspirin 81 mg tablet,delayed 1 tab PO DAILY 07/21/22 06/27/23 06/25/23 History release insulin glargine 100 unit/mL (3 15 unit subcut BEDTIME 07/21/22 06/27/23 06/25/23 History mL) subcutaneous pen (Lantus Solostar U-100 Insulin) insulin lispro 100 unit/mL See Protocol subcut TIDAC 07/21/22 06/27/23 06/25/23 History subcutaneous pen Physical Exam 2 Vital Signs: Vital Signs: Last Vital Signs Temp 98.8 F 09/16/23 10:15 Pulse 89 09/16/23 10:15 Resp 18 09/16/23 10:15 BP 163/73 H 09/16/23 10:15 Pulse Ox 96 09/16/23 10:15 O2 Del Method Nasal Cannula 09/16/23 10:15 O2 Flow Rate 2 09/16/23 10:15 BMI result Body Mass Index 31.2 Const: General: cooperative, comfortable, no acute distress, alert and awake Nutritional Appearance: overweight Orientation/consciousness: patient oriented x3 Limitations: no limitations HEENT: Head: Yes normocephalic and Yes atraumatic Neck: Neck: Yes trachea midline, Yes supple and Yes no JVD Resp: Effort & Inspection: normal respiratory effort Auscultation: no rales, no wheezes and diminished lung sounds Cardio: Jugular venous distension: no JVD Rate: regular rate Rhythm: r egular rhythm Heart sounds: S1 normal heart sound present, S2 normal heart sound present, no click, no gallops, no murmurs and no rubs GI: Auscultation: normal bowel sounds Skin: General skin exam: no rashes or lesions noted Neuro: General: patient oriented x3 and no focal motor deficits Extrem: General: No clubbing, No cyanosis and No edema Objective Labs and Meds 05/13/24 02:09 09/16/23 02:09 Lab results: Laboratory Results - last 24 hr 09/16/23 09/16/23 09/16/23 01:54 02:09 03:15 WBC 7.9 RBC 2.57 L Hgb 7.7 L Hct 23.5 L MCV 91.4 MCH 30.0 MCHC 32.8 RDW 15.3 Plt Count 122 L MPV 8.4 L Immature Gran % (Auto) 0.4 Neut % (Auto) 62.8 Lymph % (Auto) 29.2 [place] % (Auto) 5.4 Eos % (Auto) 1.8 Baso % (Auto) 0.4 Lymph # (Auto) 2.3 [place] # (Auto) 0.4 Eos # (Auto) 0.1 Baso # (Auto) 0.0 Abs Immat Gran (auto) 0.03 Absolute Neuts (auto) 5.0 Absolute Nucleated RBC 0.000 Nucleated RBC % (auto) 0.0 Absolute Retic 0.148 H Percent Retic 5.8 H Immature Retic Fraction 31.2 H Retic Hgb Equivalent 31.5 Sodium 139 Potassium 4.2 Chloride 106 Carbon Dioxide 26 Anion Gap 11 L BUN 17 H Creatinine 1.14 Estim Creat Clear Calc 50.1 Estimated GFR 50 POC Glucose 381 H* Random Glucose 400 H* Lactic Acid 1.2 Calcium 8.6 D Magnesium 2.2 Iron 52 TIBC 208 L % Saturation 25 Unsat Iron Binding 156 Ferritin 202 Total Bilirubin 0.2 AST 25 ALT 21 Alkaline Phosphatase 92 Lactate Dehydrogenase 362 H Troponin I High Sens 7.6 D B-Natriuretic Peptide 175 H Total Protein 6.9 Albumin 3.0 L Stool Occult Blood NEGATIVE Influenza Type A (PCR) NEGATIVE Influenza Type B (PCR) NEGATIVE RSV RNA Qual (PCR) NEGATIVE SARS-CoV-2 RNA (RT-PCR) NEGATIVE 09/16/23 09/16/23 05:53 07:25 WBC RBC Hgb Hct MCV MCH MCHC RDW Plt Count MPV Immature Gran % (Auto) Neut % (Auto) Lymph % (Auto) [place] % (Auto) Eos % (Auto) Baso % (Auto) Lymph # (Auto) [place] # (Auto) Eos # (Auto) Baso # (Auto) Abs Immat Gran (auto) Absolute Neuts (auto) Absolute Nucleated RBC Nucleated RBC % (auto) Absolute Retic Percent Retic Immature Retic Fraction Retic Hgb Equivalent Sodium Potassium Chloride Carbon Dioxide Anion Gap BUN Creatinine Estim Creat Clear Calc Estimated GFR POC Glucose 273 H 235 H Random Glucose Lactic Acid Calcium Magnesium Iron TIBC % Saturation Unsat Iron Binding Ferritin Total Bilirubin AST ALT Alkaline Phosphatase Lactate Dehydrogenase Troponin I High Sens B-Natriuretic Peptide Total Protein Albumin Stool Occult Blood Influenza Type A (PCR) Influenza Type B (PCR) RSV RNA Qual (PCR) SARS-CoV-2 RNA (RT-PCR) Imaging Radiologist's impression: Impressions Chest X-Ray 09/16/23 02:13 IMPRESSION: Hazy bibasilar opacities and suspected small pleural effusions. Central vasculature appears mildly prominent, and overall findings suggest developing pulmonary edema in the proper clinical setting. Venous Duplex 09/16/23 07:40 IMPRESSION: No DVT demonstrated in the bilateral lower extremities. Right popliteal fossa fluid collection measuring 2.0 x 0.6 x 1.8 cm. Assessment and Plan (1) Acute congestive heart failure: Status: Acute Acute congestive heart failure in this middle-aged woman with longstanding diabetes multiple comorbidities including severe anemia as well as chronic kidney disease and markedly labile blood pressure came in with hypertensive urgency. Possibilities include renal artery stenosis causing acute pulmonary edema with acute hypertension. Myocardial ischemia is also highly likely and can cause acute pulmonary edema which rapidly improves with diuresis. Possibility of dysautonomia given her diabetic retinopathy, neuropathy is highly likely and can cause acute hypertension and pulmonary edema as well. Requires echocardiogram. Will suggest also renal duplex. Clinically appears to be euvolemic. Her blood pressure is significantly elevated but she has prior history of orthostatic hypotension which will present a unique and significant clinical challenge to manage her blood pressure. Target goal blood pressure up to systolic 150. Check for renal artery stenosis as above. Once she is improved from hypoxemic perspective will schedule her for a vasodilating myocardial perfusion imaging. Continue to monitor closely. Continue oxygen supplementation therapy. Needs more aggressive outpatient diabetes control. Consider statin therapy to target goal LDL less than 70 mg/dL. Continue low- dose aspirin therapy. Will follow with you Procedures Date of Service Date of Service: 09/16/23
--- NOTE | 2023-09-16 12:15 | PM.EVENT ---
Event Note Date of Service: 09/16/23 Event Note: Day hospitalist update S: This history was taken in [place]ian from the patient. Dyspnea improving. Negative 1250mL thus far. Denies chest pain. O: Temp Pulse Resp BP Pulse Ox O2 Del Method O2 Flow Rate 98.8 F 89 18 163/73 H 96 Nasal Cannula 2 09/16/23 10:15 09/16/23 10:15 09/16/23 10:15 09/16/23 10:15 09/16/23 10:15 09/16/23 10:15 09/16/23 10:15 Gen: in no acute distress HEENT: sclera anicteric, moist mucus membranes Neck: supple Lungs: diminished Heart: regular rate and rhythm, no murmurs Abd: soft, non-tender, non-distended Ext: trace bilateral leg edema Skin: warm/well-perfused Neuro: alert and oriented x3, no focal findings Psych: appropriate affect A/P: d1 53yo F with DM2, HLD, HTN, orthostatic hypotension presenting with dyspnea, admitted for CHF exacerbation + HTN urgency AHRF due to ADHF - continue IV diuresis with furosemide, monitor BNP/BMP/Mg + I+O/wt. TTE: 1. Normal LV ejection fraction 55-60% with mild LVH with impaired relaxation filling pattern and elevated filling pressures 2. Mildly dilated left atrium 3. Normal cardiac valvular Dopplers 4. Normal RV systolic pressure and normal right atrial pressures 5. No significant pericardial effusion - wean O2 as tolerated - Cardiology to arrange MPS HTN urgency - resume amlodipine with goal SBP <150 given orthostasis; also check renal artery doppler per Cardiology normocytic anemia - check FOBT, iron studies, B12/FA, LDH/retics/hapto/RISHI; monitor CBC; transfuse if Hb <7 DM2 - basal-bolus insulin VTE ppx - LMWH dispo - TBD In my clinical judgment, the patient requires continued hospitalization for the following reasons: hypoxia, IV diuresis Time Spent With Patient Time: Total time managing care of this patient today ____ minutes.
[2023-09-16 13:50] LABS: Glucose, Whole Blood 194 mg/dL (60-115)
[2023-09-16 13:54] LABS: Troponin-I High Sensitivity 65.1 ng/L (<3.5-17.0)
[2023-09-16] MEDS: amLODIPine Besylate 5 MG TABLET PO (14:02)
[2023-09-16 15:39] LABS: Glucose, Whole Blood 125 mg/dL (60-115)
--- NOTE | 2023-09-16 20:42 | PHA.MEDREC ---
Pharmacy Consult ? Medication Reconciliation Pharmacy has completed the medication reconciliation. Spoke to son Bin via phone and confirmed patient's medications. He said she is only taking aspirin 81 mg in the morning, lantus 15 units at bedtime, insulin Lispro per sliding scale tid and mirtazapine 15 mg at bedtime. He can confirm that she got her insulin doses yesterday but not sure about the other medications. He said she's not very adherent with taking her medications.
[2023-09-16 21:33] LABS: Glucose, Whole Blood 172 mg/dL (60-115)
[2023-09-17] VITALS (9 sets, daily range): BP systolic 122–170; BP diastolic 57–76; PULSE 81–90; RESP 16–20; TEMP 36.4–37.4; O2SAT 94–98
[2023-09-17] MEDS: Enoxaparin Sodium 40 MG/0.4 ML SYRINGE SUBCUT (06:20)
[2023-09-17 06:45] LABS: MANUAL DIFF FLAG NO
[2023-09-17 06:49] LABS: Basophils Percent Auto 0.3 % (0-2); Eosinophils Absolute Auto 0.2 X10*3/uL (0.0-0.4); Eosinophils Percent Auto 2.1 % (0-4); Hemoglobin 7.4 g/dl (12.0-16.0); Imm Gran Abs Auto 0.03 X10*3/uL (0.00-0.03); Imm Gran Pct Auto 0.4 % (0.0-0.4); Lymphocytes Absolute Auto 2.8 X10*3/uL (1.2-4.9); Lymphocytes Percent Auto 34.5 % (20-40); Mean Corpuscular HGB Conc 33.6 g/dl (31.0-35.0); Mean Corpuscular Hemoglobin 30.2 pg (27.0-33.0); Mean Corpuscular Volume 89.8 fL (80.0-98.0); Mean Platelet Volume 9.3 fL (9.4-12.3); Monocytes Absolute Auto 0.4 X10*3/uL (0.1-1.2); Monocytes Percent Auto 5.5 % (2-11); Neutrophils Absolute Auto 4.6 x10*3/uL (2.0-8.3); Neutrophils Percent Auto 57.2 % (45-73); Platelet Count 132 X10*3/uL (160-400); Red Blood Count 2.45 X10*6/uL (4.20-5.50); Red Cell Distribution Width 14.9 % (11.0-16.0)
[2023-09-17 07:02] LABS: Anion Gap 13 (12-20); Blood Urea Nitrogen 20 mg/dL (9-16); Carbon Dioxide 30 mmol/L (22-29); Chloride 105 mmol/L (96-108); Creatinine Clr Calc Pharmacy 64.9; Estimated Glomerular Filt Rate > 60; Glucose Random 67 mg/dL (60-115); Magnesium 2.2 mg/dL (1.6-2.6); Potassium 4.4 mmol/L (3.3-5.1); Sodium 144 mmol/L (135-145)
[2023-09-17 07:08] LABS: B Type Natriuretic Peptide 133 pg/mL (<100)
[2023-09-17 07:13] LABS: Glucose, Whole Blood 75 mg/dL (60-115)
[2023-09-17 07:51] LABS: Folate 13.3 ng/mL (> or = 4.0); Vitamin B12 282 pg/mL (200-900)
--- NOTE | 2023-09-17 09:02 | PM.HEMONCCN ---
Subjective - Subjective Chief complaint: Dizziness Patient: new to practice Consult date: 09/18/23 Primary Care Provider: Neelima Gómez MD HPI - Consult Narrative Reason for consult: Anemia Narrative: Queta Loya is a 53 year old female with multiple medical problems including insulin-dependent diabetes mellitus, hypertension and chronic anemia presenting with symptoms of dyspnea and dizziness. Patient also has congestive heart failure and she was found to be in heart failure based on imaging studies. She also has chronic normocytic anemia, she has history of blood transfusion last year. She was never diagnosed with cause of anemia. No symptoms to suggest acute or chronic GI bleed. She does not have iron deficiency. A year ago she was found to have elevated methylmalonic acid with slightly decreased vitamin B12 level. She has not been on any supplementation. She denies loss of appetite, weight loss, recent infection or changes to her medication. She has never been diagnosed with any malignancy. She has 5 siblings. One of her brother is being treated for cancer, she does not know what kind. She has never had a screening colonoscopy. CT abdomen/pelvis in January 2023 did not show hepatosplenomegaly or lymphadenopathy. She is currently being treated for congestive heart failure and hypertension. Review of Systems - Constitutional Reports as per HPI, Reports lack of energy, Reports malaise, Reports weakness, Denies weight loss - Cardiovascular Reports no additional cardiovascular complaints - Respiratory Reports no additional respiratory complaints - Gastrointestinal Denies change in stools, Denies coffee ground vomit, Denies constipation, Denies difficulty swallowing - Genitourinary Reports no additional female genitourinary complaints - Neurologic Reports no additional neurologic complaints, Denies syncope [facility] Medical History: Medical History (Last Reviewed 09/17/23 @ 13:18 by Nallely Simpson PT) Anemia Brain lesion Depression HLD (hyperlipidemia) Hypertension Iron deficiency anemia Symptomatic anemia Type 2 diabetes mellitus Family History: Family History (Last Reviewed 09/16/23 @ 11:15 by Yohannes Troncoso MD) Other Hypertension Social History: Social History (Last Reviewed 09/16/23 @ 11:15 by Yohannes Troncoso MD) Living Situation History: Household Members: Children Household Members Other:: Daughter Housing: Apartment Do you presently have visiting nurse or other home services: No Alcohol History: Unable to assess alcohol history related to: Unable to respond Tobacco History: Patient Tobacco Use Status: Never used Tobacco e-Cigarette/Vaping Use: Never Used Second Hand Smoke Exposure: No Advance Directives: Advance Directives Date on File: 06/19/21 Occupation Assessmet: service: No Current occupational status: unemployed Home Medications and Allergies Current Medications: Current Medications Acetaminophen (Acetaminophen 325 Mg Tablet) 650 mg PO Q6H PRN PRN Reason: Pain, Mild (Pain Scale 1-3) Amlodipine Besylate (Amlodipine Besylate 10 Mg Tablet) 10 mg PO DAILY [facility]; Protocol Aspirin (Aspirin Enteric Coated 81 Mg Tablet.Dr) 81 mg PO DAILY [facility] Atorvastatin Calcium (Atorvastatin Calcium 40 Mg Tablet) 40 mg PO BEDTIME MJ Enoxaparin Sodium (Enoxaparin Sodium 40 Mg/0.4 Ml Syringe) 40 mg SUBCUT Q24H [facility] Last Admin: 09/17/23 06:20 Dose: 40 mg Furosemide (Furosemide 40 Mg Tablet) 40 mg PO DAILY [facility]; Protocol Glucose (Glucose Gel 15 Gm Gel..Gram.) 15 gm PO Q15M PRN; Protocol PRN Reason: per Hypoglycemia Standing Ord. Dextrose (D10) 250 mls @ 750 mls/hr IV Q15M PRN; Protocol PRN Reason: per Hypoglycemia Standing Ord. Insulin Glargine (Insulin Glargine,Hum.Rec.Anlog 100 Unit/Ml 10 Ml Vial) 16 unit SUBCUT BEDTIME [facility] Insulin Human Lispro (Insulin Lispro 100 Unit/Ml 3 Ml Vial) 0 unit SUBCUT QIDACHS [facility]; Protocol Last Admin: 09/17/23 07:53 Dose: Not Given Melatonin (Melatonin 3 Mg Tablet) 6 mg PO BEDTIME PRN PRN Reason: Insomnia Mirtazapine (Mirtazapine 15 Mg Tablet) 15 mg PO BEDTIME [facility] Ondansetron HCl (Ondansetron Hcl 4 Mg/2 Ml Vial) 4 mg IVPUSH Q8H PRN PRN Reason: Nausea and Vomiting Sodium Chloride (0.9 % Sodium Chloride Flush 3 Ml Syringe) [facility] Last Admin: 09/16/23 22:11 Dose: 3 ml Home Medications ?Medication ?Instructions ?Recorded ?Confirmed ?Type aspirin 81 mg tablet,delayed 1 tab PO DAILY@0900 07/21/22 09/16/23 History release insulin glargine 100 unit/mL (3 15 unit subcut BEDTIME 07/21/22 09/16/23 History mL) subcutaneous pen (Lantus Solostar U-100 Insulin) insulin lispro 100 unit/mL See Protocol subcut TIDAC 07/21/22 09/16/23 History subcutaneous pen mirtazapine 15 mg tablet 15 mg PO BEDTIME 09/16/23 09/16/23 History Allergies Allergy/AdvReac Type Severity Reaction Status Date / Time shrimp Allergy Swelling Verified 09/16/23 01:57 Physical Exam Vital signs: Vital Signs Temp 98.9 F 09/17/23 07:28 Pulse 90 09/17/23 07:28 Resp 20 09/17/23 07:28 BP 170/76 H 09/17/23 07:28 Pulse Ox 95 09/17/23 07:28 O2 Del Method Nasal Cannula 09/17/23 07:28 O2 Flow Rate 3 09/17/23 07:28 Intake & Output 09/16/23 09/17/23 09/17/23 18:59 06:59 18:59 Output Total 900 / 900 Balance -900 / -900 Urine Output (Average ml/kg/hr) 1.04 Output: Output, Urine Amount 900 / 900 Other: Meal Refused No NPO No Breakfast % Eaten 100% Last Bowel Movement 09/15/23 09/15/23 Weight 72.4 kg - Constitutional Present: no acute distress - Routine HEENT Exam Head: Present: normal inspection Eye: Present: EOMI - Routine Neck Exam Present: supple. Absent: lymphadenopathy - Routine Respiratory Exam Present: CTAB - Routine Cardiovascular Exam Cardiovascular: Present: RRR, S1, S2 - Routine Abdominal Exam Present: soft - Routine Extremities Exam Absent: calf tenderness - Routine Skin Exam Present: intact Hem/Onc Consult Result - Labs CBC & Chem 7: 09/18/23 06:07 09/17/23 06:35 Labs: Short CBC 09/17/23 Range/Units 06:35 WBC 8.0 (4.8-10.8) X10*3/uL Hgb 7.4 L (12.0-16.0) g/dl Hct 22.0 L (37.0-47.0) % Plt Count 132 L (160-400) X10*3/uL BMP 09/17/23 06:35 Sodium 144 Potassium 4.4 Chloride 105 Carbon Dioxide 30 H BUN 20 H Creatinine 0.88 Calcium 9.0 Assessment and Plan Patient Active problem list reviewed?: Yes (1) Symptomatic anemia Status: Acute Assessment and plan: 1. This is a 53-year-old woman with worsening of chronic normocytic anemia. She does not have any hematinic deficiencies or evidence of gastrointestinal or genitourinary blood losses. No diagnosis of underlying malignancy, imaging in January 2023 showed no hepatosplenomegaly or lymphadenopathy. She does not have any constitutional symptoms. She is currently admitted for weakness, shortness of breath and dizziness. She has been diagnosed with hypertensive urgency and decompensated congestive heart failure. She also has worsening of chronic anemia. She received a blood transfusion in December 2022 for for hemoglobin of 6.8 gram/dL. She has not had any prior workup but her vitamin B12 level is in the low range of normal with elevated methylmalonic acid in the past. She has not been on vitamin B12 supplementation. I recommend checking methylmalonic acid level, if elevated it confirms vitamin B12 deficiency. In the meantime she can be started on parenteral vitamin B12. If she does not respond to this, further evaluation with bone marrow aspiration/biopsy will be necessary. Further hematological workup to rule out plasma cell dyscrasia/myeloma has been submitted. She does not have renal dysfunction, no evidence of hyperbilirubinemia, haptoglobin level is pending. All of the above was explained to patient with the help of customer operations intern. She need a follow-up with Hematology upon discharge. I thank you for this consultation. - Time Spent With Patient Time Spent with Patient (in minutes): 20
[2023-09-17] MEDS: amLODIPine Besylate 10 MG TABLET PO (09:11)
[2023-09-17] MEDS: 0.9 % Sodium Chloride Flush 3 ML SYRINGE IVFLUSH ×2 (09:12→22:45)
[2023-09-17] MEDS: Aspirin Enteric Coated 81 MG TABLET.DR PO (09:12)
--- NOTE | 2023-09-17 10:55 | P.PNCA_ITS ---
Subjective Subjective Date of Service: 09/17/23 Principal diagnosis: Decompensated CHF Interval history: Patient with labile blood pressure with prior history of orthostatic hypertension. No evidence of renal artery stenosis by renal duplex. Echocardiogram shows normal LV ejection fraction. Clinically she feels well. History obtained with help of manager educational. Review of Systems Review of Systems Yes all other systems are reviewed and are negative Physical Exam Vital Signs: Last Vital Signs Temp 98.9 F 09/17/23 07:28 Pulse 90 09/17/23 07:28 Resp 20 09/17/23 07:28 BP 170/76 H 09/17/23 09:11 Pulse Ox 95 09/17/23 07:28 O2 Del Method Nasal Cannula 09/17/23 07:28 O2 Flow Rate 3 09/17/23 07:28 BMI result Body Mass Index 31.2 Const General: cooperative, comfortable, no acute distress, alert and awake Nutritional Appearance: overweight Orientation/consciousness: patient oriented x3 Limitations: no limitations HEENT Head: Yes normocephalic and Yes atraumatic Neck Neck: Yes trachea midline, Yes supple and Yes no JVD Resp Effort & Inspection: normal respiratory effort Auscultation: no rales, no wheezes and diminished lung sounds Cardio Jugular venous distension: no JVD Rate: regular rate Rhythm: regular rhythm Heart sounds: S1 normal heart sound present, S2 normal heart sound present, no click, no gallops, no murmurs and no rubs GI Auscultation: normal bowel sounds Skin General skin exam: no rashes or lesions noted Neuro General: patient oriented x3 and no focal motor deficits Extrem General: No clubbing, No cyanosis and No edema Objective Labs and Meds 09/17/23 06:35 09/17/23 06:35 Lab results: Laboratory Results - last 24 hr 09/16/23 09/16/23 09/16/23 12:37 13:46 15:26 WBC RBC Hgb Hct MCV MCH MCHC RDW Plt Count MPV Immature Gran % (Auto) Neut % (Auto) Lymph % (Auto) [place] % (Auto) Eos % (Auto) Baso % (Auto) Lymph # (Auto) [place] # (Auto) Eos # (Auto) Baso # (Auto) Abs Immat Gran (auto) Absolute Neuts (auto) Absolute Nucleated RBC Nucleated RBC % (auto) Sodium Potassium Chloride Carbon Dioxide Anion Gap BUN Creatinine Estim Creat Clear Calc Estimated GFR POC Glucose 194 H 125 H Random Glucose Calcium Magnesium Troponin I High Sens 65.1 H* D B-Natriuretic Peptide Vitamin B12 Folate RISHI, Polyspecific NEGATIVE Positive RISHI Work-up TNP 09/16/23 09/17/23 09/17/23 21:26 06:35 07:06 WBC 8.0 RBC 2.45 L Hgb 7.4 L Hct 22.0 L MCV 89.8 MCH 30.2 MCHC 33.6 RDW 14.9 Plt Count 132 L MPV 9.3 L Immature Gran % (Auto) 0.4 Neut % (Auto) 57.2 Lymph % (Auto) 34.5 [place] % (Auto) 5.5 Eos % (Auto) 2.1 Baso % (Auto) 0.3 Lymph # (Auto) 2.8 [place] # (Auto) 0.4 Eos # (Auto) 0.2 Baso # (Auto) 0.0 Abs Immat Gran (auto) 0.03 Absolute Neuts (auto) 4.6 Absolute Nucleated RBC 0.000 Nucleated RBC % (auto) 0.0 Sodium 144 Potassium 4.4 Chloride 105 Carbon Dioxide 30 H Anion Gap 13 BUN 20 H Creatinine 0.88 Estim Creat Clear Calc 64.9 Estimated GFR > 60 POC Glucose 172 H 75 Random Glucose 67 Calcium 9.0 Magnesium 2.2 Troponin I High Sens B-Natriuretic Peptide 133 H Vitamin B12 282 Folate 13.3 RISHI, Polyspecific Positive RISHI Work-up Imaging Radiologist's impression: Impressions Renal Ultrasound 09/16/23 15:03 IMPRESSION: No evidence of hemodynamically significant renal artery stenosis. Mildly elevated resistive indices bilaterally consistent with chronic medical renal disease. No hydronephrosis. Renal Ultrasound 09/16/23 15:03 IMPRESSION: No evidence of hemodynamically significant renal artery stenosis. Mildly elevated resistive indices bilaterally consistent with chronic medical renal disease. No hydronephrosis. Progress Note: A&P Assessment and plan (1) Acute congestive heart failure: Status: Acute Assessment and Plan: Acute CHF, does not appear to be in heart failure anymore. Can use Lasix on a p.r.n. basis at home although her heart failure episode was pretty sudden without any clear evidence of volume overload prior to the episode. Ischemia needs to be ruled out. There is no evidence of renal artery stenosis. Avoidance of salt loading was discussed with her. Myocardial perfusion imaging today and tomorrow, resting today and stress tomorrow. Further treatment based on the finding. Agree with amlodipine for antihypertensive regimen. Overall management is going to be difficult given her significantly labile blood pressure. Echocardiogram showed normal right atrial pressures yesterday. Can switch to 20 mg of Lasix p.o.. Will continue to follow with you Time Spent With Patient Time: Total time managing care of this patient today ____ minutes. Progress Note: Quality Stroke Does the patient have a stroke diagnosis?: No Procedures Date of Service Date of Service: 09/17/23
[2023-09-17 10:56] LABS: Glucose, Whole Blood 151 mg/dL (60-115)
[2023-09-17] MEDS: Insulin Lispro 100 UNIT/ML 3 ML VIAL SUBCUT ×2 (11:55→22:45)
--- NOTE | 2023-09-17 12:49 | P.PNIM_ITS ---
Subjective Subjective Date of Service: 09/17/23 Interval History: This history was taken in [place] from the patient. Dyspnea improved no chest pain Review of Systems Review of Systems: Yes all other systems are reviewed and are negative Physical Exam 2 Vital Signs: Vital Signs: Last Vital Signs Temp 99.4 F 09/17/23 11:03 Pulse 87 09/17/23 11:03 Resp 20 09/17/23 11:03 BP 153/69 H 09/17/23 11:03 Pulse Ox 94 09/17/23 11:03 O2 Del Method Nasal Cannula 09/17/23 11:03 O2 Flow Rate 3 09/17/23 11:03 BMI result Body Mass Index 31.2 Gen: in no acute distress HEENT: sclera anicteric, moist mucus membranes Neck: supple Lungs: diminished Heart: regular rate and rhythm, no murmurs Abd: soft, non-tender, non-distended Ext: no edema Skin: warm/well-perfused Neuro: alert and oriented x3, no focal findings Psych: appropriate affect Objective Data Active Medications Acetaminophen (Acetaminophen 325 Mg Tablet) 650 mg PO Q6H PRN PRN Reason: Pain, Mild (Pain Scale 1-3) Amlodipine Besylate (Amlodipine Besylate 10 Mg Tablet) 10 mg PO DAILY [facility]; Protocol Last Admin: 09/17/23 09:11 Dose: 10 mg Documented By: KAUR Aspirin (Aspirin Enteric Coated 81 Mg Tablet.) 81 mg PO DAILY [facility] Last Admin: 09/17/23 09:12 Dose: 81 mg Documented By: KAUR Atorvastatin Calcium (Atorvastatin Calcium 40 Mg Tablet) 40 mg PO BEDTIME [facility] Enoxaparin Sodium (Enoxaparin Sodium 40 Mg/0.4 Ml Syringe) 40 mg SUBCUT Q24H [facility] Last Admin: 09/17/23 06:20 Dose: 40 mg Documented By: MATTIE Furosemide (Furosemide 20 Mg Tablet) 20 mg PO DAILY [facility]; Protocol Glucose (Glucose Gel 15 Gm Gel..Gram.) 15 gm PO Q15M PRN; Protocol PRN Reason: per Hypoglycemia Standing Ord. Dextrose (D10) 250 mls @ 750 mls/hr IV Q15M PRN; Protocol PRN Reason: per Hypoglycemia Standing Ord. Insulin Glargine (Insulin Glargine,Hum.Rec.Anlog 100 Unit/Ml 10 Ml Vial) 16 unit SUBCUT BEDTIME [facility] Insulin Human Lispro (Insulin Lispro 100 Unit/Ml 3 Ml Vial) 0 unit SUBCUT QIDACHS [facility]; Protocol Last Admin: 09/17/23 11:55 Dose: 4 unit Documented By: KAUR Melatonin (Melatonin 3 Mg Tablet) 6 mg PO BEDTIME PRN PRN Reason: Insomnia Mirtazapine (Mirtazapine 15 Mg Tablet) 15 mg PO BEDTIME [facility] Ondansetron HCl (Ondansetron Hcl 4 Mg/2 Ml Vial) 4 mg IVPUSH Q8H PRN PRN Reason: Nausea and Vomiting Sodium Chloride (0.9 % Sodium Chloride Flush 3 Ml Syringe) 3 ml IVFLUSH QSHIFT [facility] Last Admin: 09/17/23 09:12 Dose: 3 ml Documented By: KAUR Labs 09/17/23 06:35 09/17/23 06:35 Labs: Laboratory Results - last 24 hr 09/16/23 09/16/23 09/16/23 12:37 13:46 15:26 MCV MCH MCHC RDW Plt Count MPV Immature Gran % (Auto) Neut % (Auto) Lymph % (Auto) [place] % (Auto) Eos % (Auto) Baso % (Auto) Lymph # (Auto) [place] # (Auto) Eos # (Auto) Baso # (Auto) Abs Immat Gran (auto) Absolute Neuts (auto) Absolute Nucleated RBC Nucleated RBC % (auto) Smear Path Review Anion Gap Estim Creat Clear Calc Estimated GFR POC Glucose 194 H 125 H Random Glucose Calcium Magnesium Troponin I High Sens 65.1 H* D B-Natriuretic Peptide Vitamin B12 Folate RISHI, Polyspecific NEGATIVE Positive RISHI Work-up TNP 09/16/23 09/17/23 09/17/23 21:26 06:35 07:06 MCV 89.8 MCH 30.2 MCHC 33.6 RDW 14.9 Plt Count 132 L MPV 9.3 L Immature Gran % (Auto) 0.4 Neut % (Auto) 57.2 Lymph % (Auto) 34.5 [place] % (Auto) 5.5 Eos % (Auto) 2.1 Baso % (Auto) 0.3 Lymph # (Auto) 2.8 [place] # (Auto) 0.4 Eos # (Auto) 0.2 Baso # (Auto) 0.0 Abs Immat Gran (auto) 0.03 Absolute Neuts (auto) 4.6 Absolute Nucleated RBC 0.000 Nucleated RBC % (auto) 0.0 Smear Path Review Anion Gap 13 Estim Creat Clear Calc 64.9 Estimated GFR > 60 POC Glucose 172 H 75 Random Glucose 67 Calcium 9.0 Magnesium 2.2 Troponin I High Sens B-Natriuretic Peptide 133 H Vitamin B12 282 Folate 13.3 RISHI, Polyspecific Positive RISHI Work-up 09/17/23 09/17/23 08:18 10:47 MCV MCH MCHC RDW Plt Count MPV Immature Gran % (Auto) Neut % (Auto) Lymph % (Auto) [place] % (Auto) Eos % (Auto) Baso % (Auto) Lymph # (Auto) [place] # (Auto) Eos # (Auto) Baso # (Auto) Abs Immat Gran (auto) Absolute Neuts (auto) Absolute Nucleated RBC Nucleated RBC % (auto) Smear Path Review Cancelled Anion Gap Estim Creat Clear Calc Estimated GFR POC Glucose 151 H Random Glucose Calcium Magnesium Troponin I High Sens B-Natriuretic Peptide Vitamin B12 Folate RISHI, Polyspecific Positive RISHI Work-up Impressions Renal Ultrasound 09/16/23 15:03 IMPRESSION: No evidence of hemodynamically significant renal artery stenosis. Mildly elevated resistive indices bilaterally consistent with chronic medical renal disease. No hydronephrosis. Renal Ultrasound 09/16/23 15:03 IMPRESSION: No evidence of hemodynamically significant renal artery stenosis. Mildly elevated resistive indices bilaterally consistent with chronic medical renal disease. No hydronephrosis. Microbiology Microbiology Results: Microbiology 09/16/23 03:22 Blood Culture - Preliminary Blood - Venous No growth after 24 hours. 09/16/23 03:15 Blood Culture - Preliminary Blood - Venous No growth after 24 hours. Assessment and Plan (1) Acute congestive heart failure: Status: Acute Plan d2 53yo F with DM2, HLD, HTN, orthostatic hypotension presenting with dyspnea, admitted for CHF exacerbation + HTN urgency AHRF due to acute HFpEF - negative 2150 mL and appears euvolemic; change to PO furosemide - TTE 09/16/23: 1. Normal LV ejection fraction 55-60% with mild LVH with impaired relaxation filling pattern and elevated filling pressures 2. Mildly dilated left atrium 3. Normal cardiac valvular Dopplers 4. Normal RV systolic pressure and normal right atrial pressures 5. No significant pericardial effusion - wean O2 as tolerated - Cardiology to arrange MPS- rest today, stress tomorrow HTN urgency - increase amlodipine with goal SBP <150 given orthostasis; renal artery doppler normal normocytic anemia - B12 low-normal but MMA high in past; per Hematology consult, will give IM B12 DM2 - basal-bolus insulin VTE ppx - LMWH dispo - PT eval In my clinical judgment, the patient requires continued hospitalization for the following reasons: hypoxia, cardiac workup Total time managing care of this patient today: 35 minutes. Quality Stroke Does the patient have a stroke diagnosis?: No VTE Prior VTE?: No VTE Risk Level:: Medical - moderate - high VTE Device Contraindication: Treatment Not Indicated VTE Drug Contraindication: N/A - Med Ordered
[2023-09-17] MEDS: Cyanocobalamin (Vitamin B-12) 1,000 MCG/ML VIAL 1000 MCG IM (13:46)
--- NOTE | 2023-09-17 14:02 | P.CDIM_ITS ---
PROVIDER RESPONSE TEXT: To clarify, the appropriate diagnosis supported by the clinical indicators: Clinically unable to determine (explain): not yet able to call CKD QUERY TEXT: PHYSICIAN'S DOCUMENTATION REQUEST Date of Query: 09/17/2023 08:54 AM EDT Patient Name: Queta Loya Admit Date: 09/16/2023 Dear Javan Cardenas, A review of the medical record indicates additional documentation may be needed. Please review below and update the documentation accordingly. Clinical Indicators: Cardiology note dated 09/15 - Patient with multiple cormorbidities including severe anemia as well as Chronic kidney disease. Please clarify which of the following accurately represents the patient's renal status: CKD, please provide stage Other Other (explain) Clinically unable to determine (explain) Thank you, Brianna Nichole, CCS, CDIS Use of terms such as suspected, likely, concern for, or probable (associated with a specific diagnosi s that is being evaluated, monitored, or treated as if it exists) are acceptable and can be coded in the inpatient se tting, when documented at the time of discharge. Please use your independent medical judgment in providing your response. THIS QUERY IS PART OF THE PERMANENT MEDICAL RECORD
[2023-09-17 17:17] LABS: Glucose, Whole Blood 138 mg/dL (60-115)
[2023-09-17 21:04] LABS: Glucose, Whole Blood 170 mg/dL (60-115)
[2023-09-17] MEDS: Insulin Glargine,Hum.rec.anlog 100 UNIT/ML 10 ML VIAL 16 UNIT SUBCUT (22:45)
[2023-09-17] MEDS: Atorvastatin Calcium 40 MG TABLET PO (22:45)
[2023-09-17] MEDS: Mirtazapine 15 MG TABLET PO (22:45)
[2023-09-18 03:27] VITALS: BP 148/66; PULSE 85; RESP 18; TEMP 36.6; O2SAT 95
[2023-09-18] MEDS: Enoxaparin Sodium 40 MG/0.4 ML SYRINGE SUBCUT (06:11)
[2023-09-18 06:31] LABS: Baso%MD 0.3 %; Eos%MD 2.7 %; Hematocrit 22.5 % (37.0-47.0); Hemoglobin 7.4 g/dl (12.0-16.0); IG%MD 0.4 %; Mean Corpuscular HGB Conc 32.9 g/dl (31.0-35.0); Mean Corpuscular Hemoglobin 29.6 pg (27.0-33.0); Mean Platelet Volume 8.8 fL (9.4-12.3); Mono%MD 6.3 %; Neut%MD 56.3 %; Platelet Count 143 X10*3/uL (160-400); Red Cell Distribution Width 14.8 % (11.0-16.0); White Blood Count 6.8 X10*3/uL (4.8-10.8)
[2023-09-18 06:52] LABS: Cholesterol 189 mg/dL (<200); HDL Cholesterol 55 mg/dL (>40); LDL Cholesterol Calculated 118 mg/dL (<100); Triglycerides 81 mg/dL (<150)
[2023-09-18 07:05] VITALS: BP 184/82; PULSE 87; RESP 18; TEMP 36.4; O2SAT 96
[2023-09-18 07:06] LABS: Glucose, Whole Blood 65 mg/dL (60-115)
[2023-09-18 07:11] LABS: Reflex LDLD? No
[2023-09-18 07:44] LABS: Atypical Lymph Absolute Manual 0.1 x10*3/uL; Atypical Lymphs Percent Manual 1 % (0-6); Band Neutrophils Percent 0 % (3-5); Basophils Abs Manual 0.1 X10*3/uL (0.0-0.2); Basophils Percent Manual 1 % (0-2); Eosinophils Absolute Manual 0.2 X10*3/uL (0.0-0.4); Eosinophils Percent Manual 3 % (0-4); Lymphocytes Absolute Manual 2.2 X10*3/uL (1.2-4.9); Lymphocytes Percent Manual 32 % (20-40); Monocytes Absolute Manual 0.5 X10*3/uL (0.1-1.2); Monocytes Percent Manual 8 % (2-11); Neutrophils Absolute Manual 3.7 X10*3/uL (2.0-8.3); Neutrophils Percent Manual 55 % (45-73)
[2023-09-18 07:46] LABS: Hypochromasia 1+ (5-14) /OIF; Platelet Estimate SLIGHTLY DECREASED (NORMAL); Platelet Morphology Comment NORMAL; RBC Morphology NOTED; Schistocytes 1+ (0-2) /OIF
[2023-09-18] MEDS: Cyanocobalamin (Vitamin B-12) 1,000 MCG/ML VIAL 1000 MCG IM (07:57)
[2023-09-18] MEDS: Aspirin Enteric Coated 81 MG TABLET.DR PO (07:57)
[2023-09-18] MEDS: Furosemide 20 MG TABLET PO (07:57)
[2023-09-18] MEDS: amLODIPine Besylate 10 MG TABLET PO (07:57)
[2023-09-18] MEDS: 0.9 % Sodium Chloride Flush 3 ML SYRINGE IVFLUSH ×2 (07:58→16:15)
[2023-09-18 09:15] LABS: Lactate Dehydrogenase 258 U/L (122-220)
--- NOTE | 2023-09-18 10:24 | P.PNCA_ITS ---
Subjective Subjective Date of Service: 09/18/23 Principal diagnosis: Decompensated CHF Interval history: Patient having no chest pain. No shortness of breath. No lightheadedness, syncope. Blood pressure is significantly elevated. Review of Systems Review of Systems Yes all other systems are reviewed and are negative Physical Exam Vital Signs: Last Vital Signs Temp 97.5 F 09/18/23 07:05 Pulse 87 09/18/23 07:05 Resp 18 09/18/23 07:05 BP 184/82 H 09/18/23 07:05 Pulse Ox 96 09/18/23 07:05 O2 Del Method Nasal Cannula 09/18/23 07:05 O2 Flow Rate 3 09/18/23 07:05 BMI result Body Mass Index 31.2 Const General: cooperative, comfortable, no acute distress, alert and awake Nutritional Appearance: overweight Orientation/consciousness: patient oriented x3 Limitations: no limitations HEENT Head: Yes normocephalic and Yes atraumatic Neck Neck: Yes trachea midline, Yes supple and Yes no JVD Resp Effort & Inspection: normal respiratory effort Auscultation: no rales, no wheezes and diminished lung sounds Cardio Jugular venous distension: no JVD Rate: regular rate Rhythm: regular rhythm Heart sounds: S1 normal heart sound present, S2 normal heart sound present, no click, no gallops, no murmurs and no rubs GI Auscultation: normal bowel sounds Skin General skin exam: no rashes or lesions noted Neuro General: patient oriented x3 and no focal motor deficits Extrem General: No clubbing, No cyanosis and No edema Objective Labs and Meds 09/18/23 06:07 09/17/23 06:35 Lab results: Laboratory Results - last 24 hr 09/17/23 09/17/23 09/17/23 06:35 08:18 10:47 WBC RBC Hgb Hct MCV MCH MCHC RDW Plt Count MPV Absolute Nucleated RBC Nucleated RBC % (auto) Neutrophils % (Manual) Band Neutrophils % Lymphocytes % (Manual) Atypical Lymphs % (Man) Monocytes % (Manual) Eosinophils % (Manual) Basophils % (Manual) Abs Neuts (Manual) Lymphocytes # (Manual) Atyp Lymphs # (Manual) Monocytes # (Manual) Eosinophils # (Manual) Basophils # (Manual) Platelet Estimate Plt Morphology Comment RBC Morphology Hypochromasia Schistocytes Smear Path Review SEE NOTE Cancelled POC Glucose 151 H Lactate Dehydrogenase Triglycerides Cholesterol LDL Cholesterol, Calc HDL Cholesterol 09/17/23 09/17/23 09/18/23 17:10 20:56 06:07 WBC 6.8 RBC 2.50 L Hgb 7.4 L Hct 22.5 L MCV 90.0 MCH 29.6 MCHC 32.9 RDW 14.8 Plt Count 143 L MPV 8.8 L Absolute Nucleated RBC 0.000 Nucleated RBC % (auto) 0.0 Neutrophils % (Manual) 55 Band Neutrophils % 0 L Lymphocytes % (Manual) 32 Atypical Lymphs % (Man) 1 Monocytes % (Manual) 8 Eosinophils % (Manual) 3 Basophils % (Manual) 1 Abs Neuts (Manual) 3.7 Lymphocytes # (Manual) 2.2 Atyp Lymphs # (Manual) 0.1 Monocytes # (Manual) 0.5 Eosinophils # (Manual) 0.2 Basophils # (Manual) 0.1 Platelet Estimate SLIGHTLY DECREASED Plt Morphology Comment NORMAL RBC Morphology NOTED Hypochromasia 1+ (5-14) Schistocytes 1+ (0-2) Smear Path Review POC Glucose 138 H 170 H Lactate Dehydrogenase 258 H Triglycerides 81 Cholesterol 189 LDL Cholesterol, Calc 118 H HDL Cholesterol 55 09/18/23 06:56 WBC RBC Hgb Hct MCV MCH MCHC RDW Plt Count MPV Absolute Nucleated RBC Nucleated RBC % (auto) Neutrophils % (Manual) Band Neutrophils % Lymphocytes % (Manual) Atypical Lymphs % (Man) Monocytes % (Manual) Eosinophils % (Manual) Basophils % (Manual) Abs Neuts (Manual) Lymphocytes # (Manual) Atyp Lymphs # (Manual) Monocytes # (Manual) Eosinophils # (Manual) Basophils # (Manual) Platelet Estimate Plt Morphology Comment RBC Morphology Hypochromasia Schistocytes Smear Path Review POC Glucose 65 Lactate Dehydrogenase Triglycerides Cholesterol LDL Cholesterol, Calc HDL Cholesterol Progress Note: A&P Assessment and plan (1) Acute congestive heart failure: Status: Acute Assessment and Plan: Acute congestive heart setting of markedly elevated blood pressure. There is no evidence of renal artery stenosis by renal duplex. Myocardial ischemia needs to be ruled out. Stress test to be performed today. Further treatment based on the findings. Could be related to just labile blood pressure related to autonomic dysfunction. Advised to avoid salt loading. Will need better control blood pressure. Discontinue midodrine therapy for now. Increase amlodipine to 5 mg. Difficulty in managing a blood pressure is likely and further cardiac complications likely as well. Continue aggressive diabetes management. Low- dose Lasix therapy 20 mg daily. Will follow with you Time Spent With Patient Time: Total time managing care of this patient today ____ minutes. Progress Note: Quality Stroke Does the patient have a stroke diagnosis?: No Procedures Date of Service Date of Service: 09/18/23
--- NOTE | 2023-09-18 10:39 | MHC.CM.PN ---
EMR REVIEWED, PT WILL HAVE PART 2 OF STRESS TEST TODAY AND ANTIC WILL BE MEDICALLY CLEARED FOR DC TOMORROW, P.T. RECOMMENDING HOME PT, REF PLACED TO NA, CM WILL CONT TO FOLLOW DC NEEDS.
--- NOTE | 2023-09-18 10:56 | CA_ITS ---
Acquisition Time: 2023-09-18 10:51:39 Total Exercise Time: 00:02:00 Test Indications: HEART FAILURE Medications: Protocol: LEXISCAN Max HR: 210 BPM 126% of Pred: 166 BPM Max BP: 120/068 mmHG Max Work Load: 1.0 METS Pharmacological stress test with Lexiscan injection while sitting and kicking her legs, with mild SOB, no chest discomfort, without arrhythmias, with normotensive response to injection, with nondiagnoisitic EKGs. Aminophylline 75mg IVP given to reverse Lexiscan. Nuclear imaging pending. Test reviewed with Dr. Troncoso [place] in leads2, 3, aVF, V3-V6 resolved when limb leads used. Returned with stress set-up Referred By: Yohannes Troncoso Overread By: Zeenat Elena
[2023-09-18 12:00] VITALS: BP 152/60; PULSE 95; RESP 18; TEMP 36.3; O2SAT 93
[2023-09-18] MEDS: Insulin Lispro 100 UNIT/ML 3 ML VIAL SUBCUT ×2 (12:02→22:11)
[2023-09-18 12:03] LABS: Glucose, Whole Blood 220 mg/dL (60-115)
--- NOTE | 2023-09-18 12:14 | P.PNIM_ITS ---
Subjective Subjective Date of Service: 09/18/23 Interval History: no chest pain dyspnea improved This history was taken in [place] from the patient. Review of Systems Review of Systems: Yes all other systems are reviewed and are negative Physical Exam 2 Vital Signs: Vital Signs: Last Vital Signs Temp 97.4 F 09/18/23 12:00 Pulse 95 09/18/23 12:00 Resp 18 09/18/23 12:00 BP 152/60 H 09/18/23 12:00 Pulse Ox 93 09/18/23 12:00 O2 Del Method Nasal Cannula 09/18/23 12:00 O2 Flow Rate 3 09/18/23 12:00 BMI result Body Mass Index 31.2 Gen: in no acute distress HEENT: sclera anicteric, moist mucus membranes Neck: supple Lungs: diminished Heart: regular rate and rhythm, no murmurs Abd: soft, non-tender, non-distended Ext: no edema Skin: warm/well-perfused Neuro: alert and oriented x3, no focal findings Psych: appropriate affect Objective Data Active Medications Acetaminophen (Acetaminophen 325 Mg Tablet) 650 mg PO Q6H PRN PRN Reason: Pain, Mild (Pain Scale 1-3) Amlodipine Besylate (Amlodipine Besylate 10 Mg Tablet) 10 mg PO DAILY [facility]; Protocol Last Admin: 09/18/23 07:57 Dose: 10 mg Documented By: MICKIE Aspirin (Aspirin Enteric Coated 81 Mg Tablet.) 81 mg PO DAILY [facility] Last Admin: 09/18/23 07:57 Dose: 81 mg Documented By: MICKIE Atorvastatin Calcium (Atorvastatin Calcium 40 Mg Tablet) 40 mg PO BEDTIME [facility] Last Admin: 09/17/23 22:45 Dose: 40 mg Documented By: JIGNA Cyanocobalamin (Cyanocobalamin (Vitamin B-12) 1,000 Mcg/Ml Vial) 1,000 mcg IM DAILY [facility] Stop: 09/20/23 09:01 Last Admin: 09/18/23 07:57 Dose: 1,000 mcg Documented By: MICKIE Enoxaparin Sodium (Enoxaparin Sodium 40 Mg/0.4 Ml Syringe) 40 mg SUBCUT Q24H [facility] Last Admin: 09/18/23 06:11 Dose: 40 mg Documented By: JIGNA Furosemide (Furosemide 20 Mg Tablet) 20 mg PO DAILY [facility]; Protocol Last Admin: 09/18/23 07:57 Dose: 20 mg Documented By: MICKIE Glucose (Glucose Gel 15 Gm Gel..Gram.) 15 gm PO Q15M PRN; Protocol PRN Reason: per Hypoglycemia Standing Ord. Dextrose (D10) 250 mls @ 750 mls/hr IV Q15M PRN; Protocol PRN Reason: per Hypoglycemia Standing Ord. Insulin Glargine (Insulin Glargine,Hum.Rec.Anlog 100 Unit/Ml 10 Ml Vial) 16 unit SUBCUT BEDTIME [facility] Last Admin: 09/17/23 22:45 Dose: 16 unit Documented By: JIGNA Insulin Human Lispro (Insulin Lispro 100 Unit/Ml 3 Ml Vial) 0 unit SUBCUT QIDACHS [facility]; Protocol Last Admin: 09/18/23 12:02 Dose: 6 unit Documented By: MICKIE Melatonin (Melatonin 3 Mg Tablet) 6 mg PO BEDTIME PRN PRN Reason: Insomnia Mirtazapine (Mirtazapine 15 Mg Tablet) 15 mg PO BEDTIME [facility] Last Admin: 09/17/23 22:45 Dose: 15 mg Documented By: JIGNA Ondansetron HCl (Ondansetron Hcl 4 Mg/2 Ml Vial) 4 mg IVPUSH Q8H PRN PRN Reason: Nausea and Vomiting Sodium Chloride (0.9 % Sodium Chloride Flush 3 Ml Syringe) 3 ml IVFLUSH QSHIFT [facility] Last Admin: 09/18/23 07:58 Dose: 3 ml Documented By: MICKIE Labs 09/18/23 06:07 09/17/23 06:35 Labs: Laboratory Results - last 24 hr 09/17/23 09/17/23 09/17/23 06:35 17:10 20:56 MCV MCH MCHC RDW Plt Count MPV Absolute Nucleated RBC Nucleated RBC % (auto) Neutrophils % (Manual) Band Neutrophils % Lymphocytes % (Manual) Atypical Lymphs % (Man) Monocytes % (Manual) Eosinophils % (Manual) Basophils % (Manual) Abs Neuts (Manual) Lymphocytes # (Manual) Atyp Lymphs # (Manual) Monocytes # (Manual) Eosinophils # (Manual) Basophils # (Manual) Platelet Estimate Plt Morphology Comment RBC Morphology Hypochromasia Schistocytes Smear Path Review SEE NOTE POC Glucose 138 H 170 H Lactate Dehydrogenase Triglycerides Cholesterol LDL Cholesterol, Calc HDL Cholesterol 09/18/23 09/18/23 09/18/23 06:07 06:56 12:00 MCV 90.0 MCH 29.6 MCHC 32.9 RDW 14.8 Plt Count 143 L MPV 8.8 L Absolute Nucleated RBC 0.000 Nucleated RBC % (auto) 0.0 Neutrophils % (Manual) 55 Band Neutrophils % 0 L Lymphocytes % (Manual) 32 Atypical Lymphs % (Man) 1 Monocytes % (Manual) 8 Eosinophils % (Manual) 3 Basophils % (Manual) 1 Abs Neuts (Manual) 3.7 Lymphocytes # (Manual) 2.2 Atyp Lymphs # (Manual) 0.1 Monocytes # (Manual) 0.5 Eosinophils # (Manual) 0.2 Basophils # (Manual) 0.1 Platelet Estimate SLIGHTLY DECREASED Plt Morphology Comment NORMAL RBC Morphology NOTED Hypochromasia 1+ (5-14) Schistocytes 1+ (0-2) Smear Path Review POC Glucose 65 220 H Lactate Dehydrogenase 258 H Triglycerides 81 Cholesterol 189 LDL Cholesterol, Calc 118 H HDL Cholesterol 55 Microbiology Microbiology Results: Microbiology 09/16/23 03:22 Blood Culture - Preliminary Blood - Venous No growth after 48 hours. 09/16/23 03:15 Blood Culture - Preliminary Blood - Venous No growth after 48 hours. Assessment and Plan (1) Acute congestive heart failure: Status: Acute Plan d3 53yo F with DM2, HLD, HTN, orthostatic hypotension presenting with dyspnea, admitted for CHF exacerbation + HTN urgency AHRF due to acute HFpEF - negative 2450 mL cumulatively; changed IV to PO furosemide yeserday - TTE 09/16/23: 1. Normal LV ejection fraction 55-60% with mild LVH with impaired relaxation filling pattern and elevated filling pressures 2. Mildly dilated left atrium 3. Normal cardiac valvular Dopplers 4. Normal RV systolic pressure and normal right atrial pressures 5. No significant pericardial effusion - wean O2 as tolerated - MPS per Cardiology: rest yesterday, stress today HTN urgency - increased amlodipine with goal SBP <150 given orthostasis; renal artery doppler normal normocytic anemia - B12 low-normal but MMA high in past; per Hematology consult, will give IM B12 - repeat MMA pending along with DENNIS - will need outpt Hematology f/u; if no response to B12, will need BM biopsy DM2 - basal-bolus insulin VTE ppx - LMWH dispo - PT eval: plan home with [facility]NA In my clinical judgment, the patient requires continued hospitalization for the following reasons: hypoxia, cardiac workup Total time managing care of this patient today: 35 minutes. Quality Stroke Does the patient have a stroke diagnosis?: No VTE Prior VTE?: No VTE Risk Level:: Medical - moderate - high VTE Device Contraindication: Treatment Not Indicated VTE Drug Contraindication: N/A - Med Ordered
[2023-09-18 14:44] LABS: Haptoglobin 18 mg/dL (43-212)
[2023-09-18 16:00] VITALS: BP 122/59; PULSE 85; RESP 20; TEMP 37; O2SAT 98
[2023-09-18 16:15] LABS: Glucose, Whole Blood 107 mg/dL (60-115)
[2023-09-18 20:00] VITALS: BP 147/67; PULSE 84; RESP 18; TEMP 36.6; O2SAT 98
[2023-09-18 20:45] LABS: Glucose, Whole Blood 151 mg/dL (60-115)
[2023-09-18] MEDS: Atorvastatin Calcium 40 MG TABLET PO (22:11)
[2023-09-18] MEDS: Mirtazapine 15 MG TABLET PO (22:11)
[2023-09-18] MEDS: Insulin Glargine,Hum.rec.anlog 100 UNIT/ML 10 ML VIAL 16 UNIT SUBCUT (22:11)
[2023-09-18 23:40] VITALS: BP 148/67; PULSE 85; RESP 18; TEMP 36.6; O2SAT 95
[2023-09-19] VITALS (7 sets, daily range): BP systolic 137–186; BP diastolic 55–80; PULSE 84–103; RESP 16–20; TEMP 36.3–36.6; O2SAT 84–97
[2023-09-19 02:40] LABS: Glucose, Whole Blood 35 mg/dL (60-115)
[2023-09-19] MEDS: Glucose Gel 15 GM GEL..GRAM. PO (02:45)
[2023-09-19 03:04] LABS: Glucose, Whole Blood 90 mg/dL (60-115)
[2023-09-19] MEDS: Enoxaparin Sodium 40 MG/0.4 ML SYRINGE SUBCUT (05:30)
[2023-09-19 07:08] LABS: Glucose, Whole Blood 140 mg/dL (60-115)
[2023-09-19] MEDS: Furosemide 20 MG TABLET PO (08:13)
[2023-09-19] MEDS: Aspirin Enteric Coated 81 MG TABLET.DR PO (08:13)
[2023-09-19] MEDS: 0.9 % Sodium Chloride Flush 3 ML SYRINGE IVFLUSH ×2 (08:14→17:05)
[2023-09-19] MEDS: amLODIPine Besylate 10 MG TABLET PO (08:14)
[2023-09-19] MEDS: Cyanocobalamin (Vitamin B-12) 1,000 MCG/ML VIAL 1000 MCG IM (08:14)
[2023-09-19 08:25] LABS: Hematocrit 24.4 % (37.0-47.0); Hemoglobin 8.1 g/dl (12.0-16.0); Mean Corpuscular HGB Conc 33.2 g/dl (31.0-35.0); Mean Corpuscular Hemoglobin 29.8 pg (27.0-33.0); Mean Corpuscular Volume 89.7 fL (80.0-98.0); Mean Platelet Volume 9.9 fL (9.4-12.3); Platelet Count 178 X10*3/uL (160-400); Red Blood Count 2.72 X10*6/uL (4.20-5.50); Red Cell Distribution Width 14.8 % (11.0-16.0)
[2023-09-19 08:39] LABS: Anion Gap 12 (12-20); Blood Urea Nitrogen 26 mg/dL (9-16); Calcium 9.3 mg/dL (8.4-10.2); Carbon Dioxide 31 mmol/L (22-29); Chloride 102 mmol/L (96-108); Creatinine Clr Calc Pharmacy 47.9; Estimated Glomerular Filt Rate 47; Glucose Random 112 mg/dL (60-115); Potassium 5.3 mmol/L (3.3-5.1); Sodium 140 mmol/L (135-145)
[2023-09-19 08:46] LABS: B Type Natriuretic Peptide 59 pg/mL (<100)
--- NOTE | 2023-09-19 10:53 | MHC.CM.PN ---
Addendum entered by Cinthya Ferrell RN 09/19/23 13:34: son unable to transport d/t no vehicle, [facility] Addendum entered by Cinthya Ferrell RN 09/19/23 10:55: PT WILL LIKELY QUALIFY FOR HOME O2, [place] Original Note: per hospitalist pt to be medically cleared today w/new [facility] for sn/pt, per pt son to arrange transport
[2023-09-19 10:59] LABS: Glucose, Whole Blood 177 mg/dL (60-115)
[2023-09-19] MEDS: Sodium Zirconium Cyclosilicate 10 GM POWD.PACK PO (11:45)
[2023-09-19] MEDS: Insulin Lispro 100 UNIT/ML 3 ML VIAL SUBCUT ×2 (11:45→17:05)
--- NOTE | 2023-09-19 12:54 | W.MHC.F2F ---
Service Date Service Date: 09/19/23 Encounter Date of encounter: 09/19/23 Reasons for Services Signs and symptoms assessed: Dyspnea on Exertion,Gross Deconditioning, Impaired Standing Balance,Muscle Weakness Reason for nursing home: medication management, medication treatment, teach disease management and other (CHF teaching/monitoring, B12 injections) Reason for physical therapy: home safety and mobility, therapeutic exercises, gait/transfer training, assess need for DME, ADL training and energy conservation MD Overseeing Care: Neelima Gómez Homebound: Leaving the home is medically contraindicated at this time without the asist of a device and/or another person due th the listed conditions above and below. Reason homebound: unsteady gait / fall risk and weakness related to hospital stay Homebound supporting statement: -Frequency/ Duration 2-3 VISITS -Goals 2-3 VISITS 1. GAIT X 150' W/ FWW AND SUPERVISION 2. PLB'ING W/ GOOD FORM WHEN DYSPNEIC 3. INDEPENDENT W/ LE HEP -Treatment Plan Gait Training, Therapeutic Activities, Therapeutic Exercise, Patient Education, Safety,Balance Certification: Based on the above findings, I certify that this patient is confined to the home and needs intermittent nursing home care, physical therapy and/or speech therapy, or continues to need occupational therapy. The patient is under my care, and I have initiated the establishment of the plan of care. The patient will be followed by a physician who will periodically review the plan of care. Time Spent With Patient Time: Total time managing care of this patient today ____ minutes.
--- NOTE | 2023-09-19 13:04 | PM.DS ---
DS: Providers Provider Date of Service: 09/19/23 Date of admission: 09/16/23 05:30 Date of discharge: 09/19/23 Primary care physician: Neelima Gómez MD Consults: 09/16/23 07:57 Consult to Cardiology Routine Consulting Provider: [facility] [place] Cardiovascular Services Reason for consultation: new hf 09/17/23 07:58 Consult to Hematology / Oncology Routine Consulting Provider: [facility] [place] Oncology/Hematology Reason for consultation: normocytic anemia, 5.8% retics, LDH a little high DS: Diagnosis Discharge Diagnosis (1) Acute on chronic heart failure with preserved ejection fraction (HFpEF): Status: Acute (2) Hypertensive urgency: Status: Acute (3) Anemia, B12 deficiency: Status: Acute (4) Orthostatic hypotension: Status: Acute (5) Acute hypoxic respiratory failure: Status: Acute DS: Summary Hospital Course Hospital Course: From the history and physical by the admitting hospitalist, Steffany Douglass MD 09/16/23: This is a 53-year-old female with pertinent history of insulin-dependent diabetes mellitus, hyperlipidemia, hypertension, mood disorder who presents to the emergency department for evaluation of dyspnea. Patient states her symptoms started on the day of presentation. She has been having dyspnea which is worse with laying down. Also complains of intermittent dry cough and swelling of bilateral lower extremities. No fever, chills or sputum production. No sick contacts. No chest pain, palpitations, abdominal pain, changes in urinary or bowel habits. History obtained with the help of automobile spring repairer. In the emergency department, patient's blood pressure found to be elevated. Imaging concerning for pulmonary edema and patient was satting 85% on room air 53yo F with DM2, HLD, HTN, and hx of orthostatic hypotension presenting with dyspnea. She was admitted to the telemetry unit for CHF exacerbation + HTN urgency. Hospital course by problem: acute hypoxic respiratory failure due to acute HFpEF - diuresed with IV furosemide 2.4L cumulatively; changed IV to PO furosemide and discharged on 20 mg daily - TTE 09/16/23: 1. Normal LV ejection fraction 55-60% with mild LVH with impaired relaxation filling pattern and elevated filling pressures 2. Mildly dilated left atrium 3. Normal cardiac valvular Dopplers 4. Normal RV systolic pressure and normal right atrial pressures 5. No significant pericardial effusion - Cardiology consulted and recommended stress test. Lexican stress test was normal. - weaned to 1L O2 and qualified for home O2 1L at all times. HTN urgency - started on amlodipine and titrated to 10 mg daily with goal SBP <150 given history of orthostasis; renal artery dopplers normal normocytic anemia - B12 low-normal but MMA high in past; per Hematology consultation, started on IM B12 - repeat MMA pending along with immunofixation electrophoresis - discharged on IM B12 1000 mcg weekly x 4 doses and should repeat CBC in 3-4 weeks; to follow up with Hematology [Dr Ling] in 1 month. If no response to B12, will need bone marrow biopsy DM2 - Nocturnal hypoglycemia prompted dose reduction of Lantus from 15 to 8 units qhs. Time Attestation Discharge Coordination Time (in mins): 40 Quality: Safe Use of Opioids Does Pt have an Active Cancer Diagnosis on the Problem List?: No Quality: Stroke Does the patient have a stroke diagnosis?: No Physical Exam Vital Signs: Vital Signs: Last Vital Signs Temp 97.9 F 09/19/23 11:07 Pulse 93 09/19/23 11:07 Resp 20 09/19/23 11:07 BP 186/80 H 09/19/23 11:07 Pulse Ox 96 09/19/23 11:07 O2 Del Method Nasal Cannula 09/19/23 11:07 O2 Flow Rate 2 09/19/23 11:07 BMI result Body Mass Index 31.2 Gen: in no acute distress HEENT: sclera anicteric, moist mucus membranes Neck: supple Lungs: diminished Heart: regular rate and rhythm, no murmurs Abd: soft, non-tender, non-distended Ext: no edema Skin: warm/well-perfused Neuro: alert and oriented x3, no focal findings Psych: appropriate affect DS: Data Data Completed and Pending Completed studies during hospitalization [Text1]: Laboratory Results WBC 7.0 X10*3/uL (4.8-10.8) 09/19/23 07:46 RBC 2.72 X10*6/uL (4.20-5.50) L 09/19/23 07:46 Hgb 8.1 g/dl (12.0-16.0) L 09/19/23 07:46 Hct 24.4 % (37.0-47.0) L 09/19/23 07:46 MCV 89.7 fL (80.0-98.0) 09/19/23 07:46 MCH 29.8 pg (27.0-33.0) 09/19/23 07:46 MCHC 33.2 g/dl (31.0-35.0) 09/19/23 07:46 RDW 14.8 % (11.0-16.0) 09/19/23 07:46 Plt Count 178 X10*3/uL (160-400) 09/19/23 07:46 MPV 9.9 fL (9.4-12.3) 09/19/23 07:46 Immature Gran % (Auto) 0.4 % (0.0-0.4) 09/17/23 06:35 Neut % (Auto) 57.2 % (45-73) 09/17/23 06:35 Lymph % (Auto) 34.5 % (20-40) 09/17/23 06:35 [place] % (Auto) 5.5 % (2-11) 09/17/23 06:35 Eos % (Auto) 2.1 % (0-4) 09/17/23 06:35 Baso % (Auto) 0.3 % (0-2) 09/17/23 06:35 Lymph # (Auto) 2.8 X10*3/uL (1.2-4.9) 09/17/23 06:35 [place] # (Auto) 0.4 X10*3/uL (0.1-1.2) 09/17/23 06:35 Eos # (Auto) 0.2 X10*3/uL (0.0-0.4) 09/17/23 06:35 Baso # (Auto) 0.0 X10*3/uL (0.0-0.2) 09/17/23 06:35 Abs Immat Gran (auto) 0.03 X10*3/uL (0.00-0.03) 09/17/23 06:35 Absolute Neuts (auto) 4.6 x10*3/uL (2.0-8.3) 09/17/23 06:35 Absolute Nucleated RBC 0.000 X10*3/uL (0.0-0.012) 09/19/23 07:46 Nucleated RBC % (auto) 0.0 /100WBC (0.0-0.2) 09/19/23 07:46 Neutrophils % (Manual) 55 % (45-73) 09/18/23 06:07 Band Neutrophils % 0 % (3-5) L 09/18/23 06:07 Lymphocytes % (Manual) 32 % (20-40) 09/18/23 06:07 Atypical Lymphs % (Man) 1 % (0-6) 09/18/23 06:07 Monocytes % (Manual) 8 % (2-11) 09/18/23 06:07 Eosinophils % (Manual) 3 % (0-4) 09/18/23 06:07 Basophils % (Manual) 1 % (0-2) 09/18/23 06:07 Abs Neuts (Manual) 3.7 X10*3/uL (2.0-8.3) 09/18/23 06:07 Lymphocytes # (Manual) 2.2 X10*3/uL (1.2-4.9) 09/18/23 06:07 Atyp Lymphs # (Manual) 0.1 x10*3/uL 09/18/23 06:07 Monocytes # (Manual) 0.5 X10*3/uL (0.1-1.2) 09/18/23 06:07 Eosinophils # (Manual) 0.2 X10*3/uL (0.0-0.4) 09/18/23 06:07 Basophils # (Manual) 0.1 X10*3/uL (0.0-0.2) 09/18/23 06:07 Platelet Estimate SLIGHTLY DECREASED (NORMAL) 09/18/23 06:07 Plt Morphology Comment NORMAL 09/18/23 06:07 RBC Morphology NOTED 09/18/23 06:07 Hypochromasia 1+ (5-14) /OIF 09/18/23 06:07 Schistocytes 1+ (0-2) /OIF 09/18/23 06:07 Smear Path Review Cancelled 09/17/23 08:18 Absolute Retic 0.148 X10*6/uL (0.026-0.095) H 09/16/23 02:09 Percent Retic 5.8 % (0.5-1.8) H 09/16/23 02:09 Immature Retic Fraction 31.2 % (3.0-15.9) H 09/16/23 02:09 Retic Hgb Equivalent 31.5 pg (30.0-35.0) 09/16/23 02:09 Haptoglobin 18 mg/dL (43-212) L 09/16/23 12:37 Sodium 140 mmol/L (135-145) 09/19/23 07:46 Potassium 5.3 mmol/L (3.3-5.1) H D 09/19/23 07:46 Chloride 102 mmol/L (96-108) 09/19/23 07:46 Carbon Dioxide 31 mmol/L (22-29) H 09/19/23 07:46 Anion Gap 12 (12-20) 09/19/23 07:46 BUN 26 mg/dL (9-16) H 09/19/23 07:46 Creatinine 1.19 mg/dL (0.5-1.4) 09/19/23 07:46 Estim Creat Clear Calc 47.9 09/19/23 07:46 Estimated GFR 47 09/19/23 07:46 POC Glucose 177 mg/dL (60-115) H 09/19/23 10:50 Random Glucose 112 mg/dL (60-115) 09/19/23 07:46 Lactic Acid 1.2 mmol/L (0.5-2.0) 09/16/23 03:15 Calcium 9.3 mg/dL (8.4-10.2) 09/19/23 07:46 Magnesium 2.2 mg/dL (1.6-2.6) 09/17/23 06:35 Iron 52 mcg/dL (30-160) 09/16/23 02:09 TIBC 208 mcg/dL (228-428) L 09/16/23 02:09 % Saturation 25 % (15-50) 09/16/23 02:09 Unsat Iron Binding 156 ug/dL 09/16/23 02:09 Ferritin 202 ng/mL (10-250) 09/16/23 02:09 Total Bilirubin 0.2 mg/dL (0.0-1.0) 09/16/23 02:09 AST 25 U/L (5-31) 09/16/23 02:09 ALT 21 U/L (0-31) 09/16/23 02:09 Alkaline Phosphatase 92 U/L (39-117) 09/16/23 02:09 Lactate Dehydrogenase 258 U/L (122-220) H 09/18/23 06:07 Troponin I High Sens 65.1 ng/L (<3.5-17.0) H* D 09/16/23 12:37 B-Natriuretic Peptide 59 pg/mL (<100) 09/19/23 07:46 Total Protein 6.9 g/dL (6.5-8.0) 09/16/23 02:09 Albumin 3.0 g/dL (3.5-5.0) L 09/16/23 02:09 Triglycerides 81 mg/dL (<150) 09/18/23 06:07 Cholesterol 189 mg/dL (<200) 09/18/23 06:07 LDL Cholesterol, Calc 118 mg/dL (<100) H 09/18/23 06:07 HDL Cholesterol 55 mg/dL (>40) 09/18/23 06:07 Vitamin B12 282 pg/mL (200-900) 09/17/23 06:35 Folate 13.3 ng/mL (> or = 4.0) 09/17/23 06:35 Stool Occult Blood NEGATIVE (NEGATIVE) 09/16/23 03:15 Influenza Type A (PCR) NEGATIVE (Negative) 09/16/23 02:09 Influenza Type B (PCR) NEGATIVE (Negative) 09/16/23 02:09 RSV RNA Qual (PCR) NEGATIVE (Negative) 09/16/23 02:09 SARS-CoV-2 RNA (RT-PCR) NEGATIVE (Negative) 09/16/23 02:09 RISHI, Polyspecific NEGATIVE 09/16/23 12:37 Positive RISHI Work-up TNP 09/16/23 12:37 Impressions Chest X-Ray 09/16/23 02:13 IMPRESSION: Hazy bibasilar opacities and suspected small pleural effusions. Central vasculature appears mildly prominent, and overall findings suggest developing pulmonary edema in the proper clinical setting. Venous Duplex 09/16/23 07:40 IMPRESSION: No DVT demonstrated in the bilateral lower extremities. Right popliteal fossa fluid collection measuring 2.0 x 0.6 x 1.8 cm. Renal Ultrasound 09/16/23 15:03 IMPRESSION: No evidence of hemodynamically significant renal artery stenosis. Mildly elevated resistive indices bilaterally consistent with chronic medical renal disease. No hydronephrosis. Myocardial Perfusion Scan Nuc Med 09/18/23 12:25 Impression: 1. Myocardial perfusion imaging study shows normal myocardial perfusion. 2. Gated LVEF is 50% during stress and 51% during rest. 3. Transient ischemic dilatation not present. EKG component of the test reported separately. Discharge Plan Discharge Anticipated Discharge Date/Time: 09/19/23 12:56 Patient Disposition: Home Health Service Discharge Diagnosis: hypoxia due to CHF exacerbation hypertensive urgency anemia suspected due to B12 deficiency Referrals: [facility] ARCHIBALD [Outside] - 1 Week (HALFWAY AND HOME PT) Neelima Brown MD [Primary Care Provider] - 1 Week Adilene Ling MD [Physician] - 1 Month Yohannes Troncoso MD [Physician] - 2 Weeks Discharge Medications: New atorvastatin 40 mg Tablet 40 mg PO BEDTIME Qty: 30 0RF insulin glargine [Lantus U-100 Insulin] 100 unit/mL Solution 8 unit subcut BEDTIME Qty: 10 0RF amlodipine 10 mg Tablet 10 mg PO DAILY Qty: 30 0RF Protocol: Hold for SBP< HOLD for SBP < : 90 furosemide 20 mg Tablet 20 mg PO DAILY Qty: 30 0RF Protocol: Hold for SBP< HOLD for SBP < : 90 cyanocobalamin (vitamin B-12) 1,000 mcg/mL solution 1,000 mcg IM QWEEK Qty: 4 0RF Continued aspirin 81 mg tablet,delayed release (DR/EC) 1 tab PO DAILY@0900 insulin lispro 100 unit/mL insulin pen See Protocol subcut TIDAC Protocol: Insulin Correction Scale Less than or equal to 110 ---- Give (units): 0 111 to 150 Give (units): 0 151 to 200 Give (units): 10 201 to 250 Give (units): 12 251 to 300 Give (units): 14 301 to 350 Give (units): 16 Greater than 350 Give (units): 18 Call MD if Blood Glucose > : 350 mirtazapine 15 mg tablet 15 mg PO BEDTIME Discontinued insulin glargine [Lantus Solostar U-100 Insulin] 100 unit/mL (3 mL) insulin pen 15 unit subcut BEDTIME No Action (DME) FreeStyle Test Strip See Rx Instructions .Route Qty: 100 0RF Rx Instructions: As directed Discharge Orders: Discharge Order (Routine); Ordered 09/19/23 Ordered By: Javan Cardenas Diet: Low salt diet Activity on Discharge: As tolerated Stand Alone Forms: Patient Portal Discharge page Print Language: Yoruba Other Ambulatory Orders: Complete Blood Count Auto Diff (Routine) Timeframe: 3 Weeks Facility: [facility] - Location: Laboratory Ordered By: Javan Cardenas Care Plan Goals: cardiac health Health Concerns: hypoxia due to CHF exacerbation hypertensive urgency anemia suspected due to B12 deficiency Plan of Treatment: furosemide 20 mg daily Low-sodium diet: less than 2000 mg of sodium daily. Weigh yourself daily and call your doctor if your weight goes up by more than 3 lb/day or 5 lb/week. oxygen 1L at all times take amlodipine 10 mg daily; goal BP 150 or less continue aspirin and take atorvastatin 40 mg daily follow up with Cardiology at [facility] [place] in 2 weeks B12 injections 1000 mcg IM weekly x 4 weeks follow up with Hematology at [facility] [place] in 4 weeks; repeat CBC in 3 weeks reduce Lantus from 15 to 8 units due to low blood sugar at night Please follow up with your primary care doctor within 1 week. Return to the hospital if you experience recurrent or worsening symptoms. Assessment: See Discharge Summary.
[2023-09-19 15:21] LABS: Anion Gap 13 (12-20); Blood Urea Nitrogen 27 mg/dL (9-16); Carbon Dioxide 33 mmol/L (22-29); Chloride 100 mmol/L (96-108); Creatinine Clr Calc Pharmacy 51.4; Estimated Glomerular Filt Rate 51; Glucose Random 154 mg/dL (60-115); Potassium 4.6 mmol/L (3.3-5.1); Sodium 141 mmol/L (135-145)
[2023-09-19 17:13] LABS: Glucose, Whole Blood 147 mg/dL (60-115)
[2023-09-20 12:08] LABS: Methylmalonic Acid 603 nmol/L (87-318)
[2023-09-25 11:52] LABS: IgA 301 mg/dL (47-310); IgG 1445 mg/dL (600-1640); IgM 111 mg/dL (50-300)
== END 2023-09-19 18:44 | disposition home health service (06) | DRG 199 ==
LOC: HO.ED 06:41 → HO.EDOVER 06:46 → HO.IMC 12:30
PROVIDERS: Internal Medicine; Admitting Provider Student in an Organized Health Care Education/Training Program; Emergency Provider Emergency Medicine Emergency Medical Services; PCP Internal Medicine; Visit Provider Family Medicine
DX: I16.1 Hypertensive emergency (principal); J96.01 Acute respiratory failure with hypoxia; I50.33 Acute on chronic diastolic (congestive) heart failure; I11.0 Hypertensive heart disease with heart failure; I95.1 Orthostatic hypotension; E78.5 Hyperlipidemia, unspecified; D51.9 Vitamin B12 deficiency anemia, unspecified; D69.6 Thrombocytopenia, unspecified; Z20.822 Contact with and (suspected) exposure to COVID-19; Z79.4 Long term (current) use of insulin; Z79.82 Long term (current) use of aspirin; Z79.899 Other long term (current) drug therapy
CPT/HCPCS: 0241U; 36415; 71045; 76775; 78452; 80048; 80053; 80061; 82272; 82607; 82728; 82746; 82784; 82947; 83010; 83540; 83605; 83615; 83735; 83880; 83921; 84484; 85007; 85025; 85027; 85045; 86334; 86880; 87040; 93005; 93017; 93306; 93970; 93975; 94640; 97162; 99285; A9500; J0280; J0696; J1650; J1920; J1940; J2785; J3420; Q9957

== ENCOUNTER → 2023-09-16 02:08 | Outpatient (BNV) | payer MEDICAID, SELFPAY | PROVIDERS: Admitting Provider Student in an Organized Health Care Education/Training Program; Emergency Provider Emergency Medicine Emergency Medical Services; Visit Provider Internal Medicine Cardiovascular Disease | DX: I50.9 Heart failure, unspecified (principal); R06.00 Dyspnea, unspecified; R94.31 Abnormal electrocardiogram [ECG] [EKG] | CPT/HCPCS: 93010; 93306 ==

== ENCOUNTER → 2023-09-16 02:12 | Outpatient (BNV) | payer MEDICAID, SELFPAY | PROVIDERS: Emergency Provider Emergency Medicine Emergency Medical Services; Visit Provider Student in an Organized Health Care Education/Training Program | DX: I50.33 Acute on chronic diastolic (congestive) heart failure (principal); I16.0 Hypertensive urgency; I95.1 Orthostatic hypotension; D51.9 Vitamin B12 deficiency anemia, unspecified; J96.01 Acute respiratory failure with hypoxia | CPT/HCPCS: 99223; 99232; 99239; 99499 ==

== ENCOUNTER 2023-09-16 05:30 | Outpatient (BNV) | payer MEDICAID, SELFPAY | END 2023-09-18 10:56 | PROVIDERS: Admitting Provider Student in an Organized Health Care Education/Training Program; Emergency Provider Emergency Medicine Emergency Medical Services; PCP Internal Medicine; Visit Provider Nurse Practitioner | DX: R06.02 Shortness of breath (principal); I50.9 Heart failure, unspecified | CPT/HCPCS: 93016; 93018 ==

== ENCOUNTER 2023-09-16 05:30 | Outpatient (BNV) | payer MEDICAID, SELFPAY | END 2023-09-17 13:56 | PROVIDERS: Admitting Provider Student in an Organized Health Care Education/Training Program; Emergency Provider Emergency Medicine Emergency Medical Services; PCP Internal Medicine; Visit Provider Internal Medicine | DX: I50.9 Heart failure, unspecified (principal) | CPT/HCPCS: 78452 ==

== ENCOUNTER → 2023-09-16 05:30 | Outpatient (BNV) | payer MEDICAID, SELFPAY | PROVIDERS: Admitting Provider Student in an Organized Health Care Education/Training Program; Emergency Provider Emergency Medicine Emergency Medical Services; Visit Provider Internal Medicine Cardiovascular Disease | DX: I50.9 Heart failure, unspecified (principal) | CPT/HCPCS: 99222; 99233 ==

== ENCOUNTER → 2023-09-16 05:30 | Outpatient (BNV) | payer MEDICAID, SELFPAY | PROVIDERS: Admitting Provider Student in an Organized Health Care Education/Training Program; Emergency Provider Emergency Medicine Emergency Medical Services; PCP Internal Medicine; Visit Provider Internal Medicine | DX: D64.9 Anemia, unspecified (principal) | CPT/HCPCS: 99222 ==

== ENCOUNTER 2023-10-15 10:51 | Outpatient (REF) | payer MEDICAID, SELFPAY ==
[2023-10-15 10:54] LABS: MANUAL DIFF FLAG NO
[2023-10-15 10:59] LABS: Basophils Absolute Auto 0.1 X10*3/uL (0.0-0.2); Basophils Percent Auto 0.5 % (0-2); Eosinophils Absolute Auto 0.3 X10*3/uL (0.0-0.4); Eosinophils Percent Auto 2.9 % (0-4); Hematocrit 25.8 % (37.0-47.0); Hemoglobin 9.1 g/dl (12.0-16.0); Imm Gran Abs Auto 0.03 X10*3/uL (0.00-0.03); Imm Gran Pct Auto 0.3 % (0.0-0.4); Lymphocytes Absolute Auto 3.6 X10*3/uL (1.2-4.9); Lymphocytes Percent Auto 36.9 % (20-40); Mean Corpuscular HGB Conc 35.3 g/dl (31.0-35.0); Mean Corpuscular Hemoglobin 29.2 pg (27.0-33.0); Mean Corpuscular Volume 82.7 fL (80.0-98.0); Monocytes Absolute Auto 0.5 X10*3/uL (0.1-1.2); Neutrophils Absolute Auto 5.3 x10*3/uL (2.0-8.3); Neutrophils Percent Auto 54.4 % (45-73); Platelet Count 163 X10*3/uL (160-400); Red Blood Count 3.12 X10*6/uL (4.20-5.50); Red Cell Distribution Width 13.2 % (11.0-16.0); White Blood Count 9.8 X10*3/uL (4.8-10.8)
== END 2023-10-15 10:52 | disposition home or self-care (01) ==
LOC: HO.HVNA 10:51
PROVIDERS: Visit Provider Internal Medicine
DX: D51.9 Vitamin B12 deficiency anemia, unspecified (principal)
CPT/HCPCS: 36415; 85025

== ENCOUNTER 2024-01-13 11:53 | Observation (INO) | payer MEDICAID, SELFPAY ==
[2024-01-13] VITALS (13 sets, daily range): BP systolic 147–227; BP diastolic 62–107; PULSE 82–94; RESP 13–18; TEMP 36.6–37.1; O2SAT 93–98; BMI 22.0
--- NOTE | ~2024-01-13 | CT_ITS ---
EXAMINATION: CT HEAD WITHOUT CONTRAST CLINICAL INFORMATION: Hypertension COMPARISON: CT head August 28, 2023 TECHNIQUE: Contiguous axial imaging was performed from the skull base to vertex without intravenous administration of contrast. Coronal and sagittal reformatted images are performed at the CT scanner. This CT examination was performed using dose optimization techniques as appropriate, variously including the following: *Automated exposure control *Adjustment of mA and/or kV according to patient size (this includes techniques or standardized protocols for targeted exams where dose is matched to indication/reason for exam; i.e. extremities or head) *Use of iterative reconstruction technique DLP: 575 mGy-cm. FINDINGS: There is no evidence of acute intracranial hemorrhage or territorial infarction. No abnormal mass-effect or midline shift is seen. Hardy to white matter differentiation is well preserved. No extra-axial fluid collections are identified. Stable ex vacuo enlargement of the left lateral ventricle temporal horn. Stable asymmetric volume loss of the left anterior temporal horn. No hydrocephalus. There is no abnormal attenuation within the brain parenchyma. There is no osseous abnormality. The mastoid air cells and visualized portions of the paranasal sinuses are well-aerated. CT/CT head/brain wo IV con IMPRESSION: No acute intracranial pathology. Electronically signed by: Everardo Shin MD 01/13/2024 03:31 PM EDT
--- NOTE | 2024-01-13 12:11 | ECG_ITS ---
Test Reason : HTN Blood Pressure : / mmHG Vent. Rate : 087 BPM Atrial Rate : 087 BPM P-R Int : 154 ms QRS Dur : 080 ms QT Int : 394 ms P-R-T Axes : 000 169 133 degrees QTc Int : 474 ms Suspect limb lead reversal, interpretation assumes no reversal Normal sinus rhythm Right axis deviation Nonspecific T wave abnormality Prolonged QT Abnormal ECG When compared with ECG of 16-SEP-2023 02:08, QRS axis Shifted right Nonspecific T wave abnormality is now Present Referred By: Tonio Vicente Electronically Signed By:CRISTA OWEN
[2024-01-13] MEDS: amLODIPine Besylate 10 MG TABLET PO (12:22)
--- NOTE | 2024-01-13 12:22 | ED.GENADULT ---
HPI - General Adult General Chief complaint: General Medical Stated complaint: DIZZY,HIGH BP 187/74,NOT MED COMP PER EMS Time Seen by Provider: 01/13/24 12:22 Source: patient and EMS Mode of arrival: EMS Limitations: other (Poor historian) History of Present Illness ED Provider: Scott MAC HPI narrative: This is a 53-year-old female history of anemia, hypertensive urgency, heart failure, hypertension, orthostatic hypotension, depression presenting to the emergency department with complaints of high blood pressure, failure to thrive, fatigue, malaise, myalgias ongoing for the past few days worsening. Patient is not med compliant with any of her home meds. Patient denies headache, vision changes, weakness, nausea, vomiting, abdominal pain, chest pain or shortness of breath. She lives at home with her son who does not help her much with her home meds. Related Data Home Medications ?Medication ?Instructions ?Recorded ?Confirmed aspirin 81 mg tablet,delayed 1 tab PO DAILY@0900 07/21/22 09/16/23 release insulin lispro 100 unit/mL See Protocol subcut TIDAC 07/21/22 09/16/23 subcutaneous pen mirtazapine 15 mg tablet 15 mg PO BEDTIME 09/16/23 09/16/23 Previous Rx's ?Medication ?Instructions ?Recorded blood sugar diagnostic (FreeStyle #100 ea 10/02/22 Test strips) amlodipine 10 mg tablet 10 mg PO DAILY #30 tabs 09/19/23 atorvastatin 40 mg tablet 40 mg PO BEDTIME #30 tabs 09/19/23 cyanocobalamin (vitamin B-12) 1,000 mcg IM QWEEK #4 mL 09/19/23 1,000 mcg/mL injection solution furosemide 20 mg tablet 20 mg PO DAILY #30 tabs 09/19/23 insulin glargine 100 unit/mL 8 unit (0.08 mL) subcut BEDTIME 09/19/23 subcutaneous solution (Lantus #10 mL U-100 Insulin) Allergies Allergy/AdvReac Type Severity Reaction Status Date / Time shrimp Allergy Swelling Verified 01/13/24 12:09 Review of Systems Review of Systems: Yes all other systems are reviewed and are negative PMFSH Past Medical History Attestation statement: The following information was validated with the patient. Source: old records reviewed and nursing notes reviewed Medical History Hypertension Symptomatic anemia Brain lesion Iron deficiency anemia HLD (hyperlipidemia) Anemia Depression Type 2 diabetes mellitus Family History Family History Other Hypertension Social History Social History Household Members: Children Household Members Other:: Daughter Housing: Apartment Do you presently have visiting nurse or other home services: No Unable to assess alcohol history related to: Unable to respond Alcohol intake: never Patient Tobacco Use Status: Never used Tobacco Smoked in Last 30 Days: No e-Cigarette/Vaping Use: Never Used Second Hand Smoke Exposure: No Use of substances other than those prescribed or required for medical reasons: No Advance Directives: Yes Advance Directives on File: Yes Advance Directives Date on File: 06/19/21 service: No Current occupational status: unemployed Physical Exam ED Vital Signs: Vital Signs - 24 hr 01/13/24 12:07 01/13/24 13:18 01/13/24 13:30 Temperature 98.4 F Pulse Rate 84 84 82 Respiratory Rate 18 Blood Pressure 218/94 H 223/106 H 227/107 H Pulse Oximetry 96 98 Oxygen Delivery Method Room Air Room Air Oxygen Flow Rate 01/13/24 13:49 01/13/24 14:14 01/13/24 14:30 Temperature Pulse Rate 84 84 82 Respiratory Rate 18 18 Blood Pressure 180/70 H 205/88 H 182/75 H Pulse Oximetry 96 Oxygen Delivery Method Room Air Oxygen Flow Rate 97 01/13/24 15:43 Temperature 98.7 F Pulse Rate 87 Respiratory Rate 18 Blood Pressure 173/67 H Pulse Oximetry 98 Oxygen Delivery Method Room Air Oxygen Flow Rate BMI result Body Mass Index 22.0 Patient is significantly hypertensive Appearance: Alert.? Oriented X3.? No acute distress.? Head: Normocephalic, atraumatic, no step-offs or deformities Eyes: Pupils equal, round and reactive to light.? ENT: Pharynx normal.? Neck: Normal inspection.? Neck supple.? CVS: Normal heart rate and rhythm.? Pulses normal.? Respiratory: No respiratory distress.? Breath sounds normal.? Abdomen: Soft and nontender.? Skin: Skin warm and dry.? Normal skin color.? Normal skin turgor.? Extremities: No lower extremity edema.? No calf ttp. 5/5 strength to bilateral upper and lower extremities Neuro: Oriented X 3.? No motor deficit.? No sensory deficit. CN 2-12 intact Course Reevaluation(s) Reevaluation #1: Patient with baseline normocytic anemia as well as thrombocytopenia. Chemistry with low potassium 2.6 oral potassium and IV potassium ordered. Patient noted to have a troponin of 23.8 likely secondary to demand ischemia/type B injury. Will repeat at the 3 hour ashwini. Home meds did not help bring the blood pressure down enough, IV labetalol initiated with good effect. CT head still pending. Patient without headache, vision changes or dizziness. Time: 14:03 Reevaluation #2: Sing out to Melisa, BP improved. Second trop pending & head CT . Suspect hospital admission. Time: 14:07 Reevaluation #3: Patient was given to me via sign-out from my colleague. Patient's blood pressure has improved however given hypertensive urgency, patient would benefit from hospitalization, discussed with hospitalist for possible admission. Second troponin is flat, and CT head unremarkable. Time: 16:22 Medications Administered Discontinued Medications Generic Name Dose Route Start Last Admin Trade Name Freq PRN Reason Stop Dose Admin Amlodipine Besylate 10 mg 01/13/24 12:11 01/13/24 12:22 Amlodipine Besylate 10 Mg Tablet PO 01/13/24 12:12 10 mg ONCE ONE Administration Protocol Potassium Chloride 10 meq in 100 mls @ 100 mls/hr 01/13/24 14:15 01/13/24 15:43 Potassium Chloride/H20 IV 01/13/24 16:14 100 mls/hr Q1H JM Administration Labetalol HCl 10 mg 01/13/24 13:27 01/13/24 13:30 Labetalol Hcl 100 Mg/20 Ml Vial IVPUSH 01/13/24 13:28 10 mg ONCE ONE Administration Potassium Chloride 40 meq 01/13/24 14:05 01/13/24 14:32 Potassium Chloride Packet 20 Meq Packet PO 01/13/24 14:06 40 meq ONCE ONE Administration Medical Decision Making Medical Decision Making [facility] Narrative: 1224 53 year old male presents with high blood pressure, not taking BP meds at home, fatigue, malaise and myalgias all so reported. On exam patient has significantly high blood pressure likely secondary to non med compliance. No focal neuro deficits. NIH stroke scale 0. Concerns for hypertensive urgency versus emergency. Will rule out intracranial hemorrhage although unlikely. I do not suspect stroke or posterior stroke. Will rule out metabolic derangements Plan - labs, imaging Differential Diagnosis Differential Diagnoses: The differential diagnosis associated with the presentation includes Concerns for hypertensive urgency versus emergency. Will rule out intracranial hemorrhage although unlikely. I do not suspect stroke or posterior stroke. Will rule out metabolic derangements Admission/Observation Consideration of admission/observation: Escalation of care including admission/observation considered possible Lab Data MDM Lab Attestation statement: I reviewed the patient's lab results. 01/13/24 12:20 01/13/24 12:20 Labs: Lab Results 01/13/24 01/13/24 Range/Units 12:20 15:30 WBC 7.7 (4.8-10.8) X10*3/uL RBC 2.78 L (4.20-5.50) X10*6/uL Hgb 8.2 L (12.0-16.0) g/dl Hct 23.6 L (37.0-47.0) % MCV 84.9 (80.0-98.0) fL MCH 29.5 (27.0-33.0) pg MCHC 34.7 (31.0-35.0) g/dl RDW 15.2 (11.0-16.0) % Plt Count 112 L D (160-400) X10*3/uL MPV 8.6 L (9.4-12.3) fL Immature Gran % (Auto) 0.5 H (0.0-0.4) % Neut % (Auto) 52.8 (45-73) % Lymph % (Auto) 35.2 (20-40) % [place] % (Auto) 5.7 (2-11) % Eos % (Auto) 5.5 H (0-4) % Baso % (Auto) 0.3 (0-2) % Lymph # (Auto) 2.7 (1.2-4.9) X10*3/uL [place] # (Auto) 0.4 (0.1-1.2) X10*3/uL Eos # (Auto) 0.4 (0.0-0.4) X10*3/uL Baso # (Auto) 0.0 (0.0-0.2) X10*3/uL Abs Immat Gran (auto) 0.04 H (0.00-0.03) X10*3/uL Absolute Neuts (auto) 4.0 (2.0-8.3) x10*3/uL Absolute Nucleated RBC 0.000 (0.0-0.012) X10*3/uL Nucleated RBC % (auto) 0.0 (0.0-0.2) /100WBC Sodium 143 (135-145) mmol/L Potassium 2.6 L* D (3.3-5.1) mmol/L Chloride 103 (96-108) mmol/L Carbon Dioxide 30 H (22-29) mmol/L Anion Gap 13 (12-20) BUN 9 (9-16) mg/dL Creatinine 1.07 (0.5-1.4) mg/dL Estim Creat Clear Calc 56.2 Estimated GFR 53 Random Glucose 203 H (60-115) mg/dL Calcium 8.8 (8.4-10.2) mg/dL Magnesium 2.0 (1.6-2.6) mg/dL Total Bilirubin 0.6 (0.0-1.0) mg/dL AST 14 (5-31) U/L ALT 8 (0-31) U/L Alkaline Phosphatase 72 (39-117) U/L Troponin I High Sens 23.8 H D 23.1 H (<3.5-17.0) ng/L Total Protein 6.3 L (6.5-8.0) g/dL Albumin 2.7 L (3.5-5.0) g/dL Independent Interpretation I performed an independent interpretation of an: CT Scan Radiology Impression Discussion of test interpretation with radiology: I have reviewed the radiologist's reading. External Record Review External record reviewed: Inpatient record, Office record, Outpatient record, Prior outpatient labs, Prior outpatient radiology, Primary care record and Outside ED record Chronic Conditions Patient?s care impacted by: Hypertension and Other (chf ) Critical Care Time Critical Care Time Critical Care Time: Yes Total Critical Care Time: 35 Attestation: I attest to this time spent taking care of the patient, obtaining history, physical, reviewing labs, imaging, treatment of patients condition +/- specialist/hospitalist consult Discharge Plan Discharge Clinical Impression: Hypertensive urgency Patient Disposition: Still a Patient Prescriptions: No Action aspirin 81 mg tablet,delayed release (DR/EC) 1 tab PO DAILY@0900 insulin lispro 100 unit/mL insulin pen See Protocol subcut TIDAC Protocol: Insulin Correction Scale Less than or equal to 110 ---- Give (units): 0 111 to 150 Give (units): 0 151 to 200 Give (units): 10 201 to 250 Give (units): 12 251 to 300 Give (units): 14 301 to 350 Give (units): 16 Greater than 350 Give (units): 18 Call MD if Blood Glucose > : 350 (DME) FreeStyle Test Strip See Rx Instructions .Route Qty: 100 0RF Rx Instructions: As directed mirtazapine 15 mg tablet 15 mg PO BEDTIME atorvastatin 40 mg Tablet 40 mg PO BEDTIME Qty: 30 0RF insulin glargine [Lantus U-100 Insulin] 100 unit/mL Solution 8 unit subcut BEDTIME Qty: 10 0RF amlodipine 10 mg Tablet 10 mg PO DAILY Qty: 30 0RF Protocol: Hold for SBP< HOLD for SBP < : 90 furosemide 20 mg Tablet 20 mg PO DAILY Qty: 30 0RF Protocol: Hold for SBP< HOLD for SBP < : 90 cyanocobalamin (vitamin B-12) 1,000 mcg/mL solution 1,000 mcg IM QWEEK Qty: 4 0RF Print Language: Turkmen
[2024-01-13 12:23] LABS: MANUAL DIFF FLAG NO
[2024-01-13 12:26] LABS: Basophils Percent Auto 0.3 % (0-2); Eosinophils Absolute Auto 0.4 X10*3/uL (0.0-0.4); Eosinophils Percent Auto 5.5 % (0-4); Hematocrit 23.6 % (37.0-47.0); Hemoglobin 8.2 g/dl (12.0-16.0); Imm Gran Abs Auto 0.04 X10*3/uL (0.00-0.03); Imm Gran Pct Auto 0.5 % (0.0-0.4); Lymphocytes Absolute Auto 2.7 X10*3/uL (1.2-4.9); Lymphocytes Percent Auto 35.2 % (20-40); Mean Corpuscular HGB Conc 34.7 g/dl (31.0-35.0); Mean Corpuscular Hemoglobin 29.5 pg (27.0-33.0); Mean Corpuscular Volume 84.9 fL (80.0-98.0); Mean Platelet Volume 8.6 fL (9.4-12.3); Monocytes Absolute Auto 0.4 X10*3/uL (0.1-1.2); Monocytes Percent Auto 5.7 % (2-11); Neutrophils Percent Auto 52.8 % (45-73); Platelet Count 112 X10*3/uL (160-400); Red Blood Count 2.78 X10*6/uL (4.20-5.50); Red Cell Distribution Width 15.2 % (11.0-16.0); White Blood Count 7.7 X10*3/uL (4.8-10.8)
[2024-01-13 12:46] LABS: Troponin-I High Sensitivity 23.8 ng/L (<3.5-17.0)
[2024-01-13 12:53] LABS: Alanine Aminotransferase 8 U/L (0-31); Albumin Level 2.7 g/dL (3.5-5.0); Alkaline Phosphatase 72 U/L (39-117); Aspartate Amino Transferase 14 U/L (5-31); Bilirubin Total 0.6 mg/dL (0.0-1.0); Blood Urea Nitrogen 9 mg/dL (9-16); Calcium 8.8 mg/dL (8.4-10.2); Creatinine Clr Calc Pharmacy 56.2; Estimated Glomerular Filt Rate 53; Glucose Random 203 mg/dL (60-115); Total Protein 6.3 g/dL (6.5-8.0)
[2024-01-13 13:00] LABS: Anion Gap 13 (12-20); Carbon Dioxide 30 mmol/L (22-29); Chloride 103 mmol/L (96-108); Potassium 2.6 mmol/L (3.3-5.1); Sodium 143 mmol/L (135-145)
--- NOTE | 2024-01-13 13:20 | PC.NURSE ---
Provider notified of continued high BP`s
[2024-01-13] MEDS: Labetalol HCL 100 MG/20 ML VIAL 10 MG IVPUSH (13:30)
--- NOTE | 2024-01-13 13:41 | ECG_ITS ---
Test Reason : repeat Blood Pressure : / mmHG Vent. Rate : 085 BPM Atrial Rate : 085 BPM P-R Int : 146 ms QRS Dur : 076 ms QT Int : 398 ms P-R-T Axes : 000 -23 143 degrees QTc Int : 473 ms Normal sinus rhythm Nonspecific T wave abnormality Prolonged QT Abnormal ECG When compared with ECG of 13-JAN-2024 12:18, Questionable change in QRS axis Referred By: Tonio Vicente Electronically Signed By:CRISTA OWEN
[2024-01-13] MEDS: Potassium Chloride Packet 20 MEQ PACKET 40 MEQ PO ×3 (14:32→21:13)
[2024-01-13] MEDS: Potassium Chloride/H20 10 MEQ/100 ML PIGGYBACK 100 MEQ IV ×2 (14:33→15:43)
--- NOTE | 2024-01-13 15:32 | ECG_ITS ---
Test Reason : hypertention Blood Pressure : / mmHG Vent. Rate : 081 BPM Atrial Rate : 081 BPM P-R Int : 152 ms QRS Dur : 090 ms QT Int : 416 ms P-R-T Axes : 055 010 074 degrees QTc Int : 483 ms Normal sinus rhythm Cannot rule out Anterior infarct , age undetermined Abnormal ECG When compared with ECG of 13-JAN-2024 12:42, Nonspecific T wave abnormality no longer evident in Inferior leads Referred By: Kamlesh Matson Electronically Signed By:CRISTA OWEN
[2024-01-13 16:01] LABS: Troponin-I High Sensitivity 23.1 ng/L (<3.5-17.0)
--- NOTE | 2024-01-13 17:32 | PM.IMHP ---
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 she tried her home medicaitons but did not feel much better. No chest pain, palpitations, SOB, nausea, diarrhea or urinary symptoms. In ED found to have high BP readings of 217/100 responded partially to Labetaolol. K of 2.6. Admitted for further work up and treatment. Review of Systems Review of Systems: No fever, chills but has generalized weakness No chest pain, palpitation No shortness of breath or coughing No abdominal pain, had nausea but no vomiting No urinary symptoms PMFSH Medical History Hypertension Symptomatic anemia Brain lesion Iron deficiency anemia HLD (hyperlipidemia) Anemia Depression Type 2 diabetes mellitus Family History Other Hypertension Social History Household Members: Children Household Members Other:: Daughter Housing: Apartment Do you presently have visiting nurse or other home services: No Unable to assess alcohol history related to: Unable to respond Alcohol intake: never Patient Tobacco Use Status: Never used Tobacco Smoked in Last 30 Days: No e-Cigarette/Vaping Use: Never Used Second Hand Smoke Exposure: No Use of substances other than those prescribed or required for medical reasons: No Advance Directives: Yes Advance Directives on File: Yes Advance Directives Date on File: 06/19/21 service: No Current occupational status: unemployed Meds Allergies Allergy/AdvReac Type Severity Reaction Status Date / Time shrimp Allergy Swelling Verified 01/13/24 12:09 Active Medications: Current Medications Acetaminophen (Acetaminophen 325 Mg Tablet) 650 mg PO Q6H PRN PRN Reason: Pain, Mild (Pain Scale 1-3), fever or headache Amlodipine Besylate (Amlodipine Besylate 10 Mg Tablet) 10 mg PO DAILY JM; Protocol Aspirin (Aspirin Enteric Coated 81 Mg Tablet.Dr) 81 mg PO DAILY JM Atorvastatin Calcium (Atorvastatin Calcium 40 Mg Tablet) 40 mg PO BEDTIME JM Calcium Carbonate (Calcium Carbonate 750 Mg Tab.Chew) 750 mg PO Q4H PRN PRN Reason: Heartburn Enoxaparin Sodium (Enoxaparin Sodium 40 Mg/0.4 Ml Syringe) 40 mg SUBCUT Q24H JM Furosemide (Furosemide 20 Mg Tablet) 20 mg PO DAILY JM; Protocol Gabapentin (Gabapentin 100 Mg Capsule) 100 mg PO BEDTIME JM Insulin Glargine (Insulin Glargine,Hum.Rec.Anlog 100 Unit/Ml 10 Ml Vial) 5 unit SUBCUT BEDTIME JM Insulin Human Lispro (Insulin Lispro 100 Unit/Ml 3 Ml Vial) 0 unit SUBCUT QIDACHS JM; Protocol Magnesium Hydroxide (Milk Of Magnesia 30 Ml Oral.Susp) 30 ml PO DAILY PRN PRN Reason: Constipation Melatonin (Melatonin 3 Mg Tablet) 6 mg PO BEDTIME PRN PRN Reason: Insomnia Mirtazapine (Mirtazapine 15 Mg Tablet) 15 mg PO BEDTIME JM Ondansetron HCl (Ondansetron Hcl 4 Mg/2 Ml Vial) 4 mg IVPUSH Q8H PRN PRN Reason: Nausea and Vomiting Potassium Chloride (Potassium Chloride Er 20 Meq Tab.Er.Prt) 40 meq PO ONCE ONE Stop: 01/13/24 19:25 Sodium Chloride (0.9 % Sodium Chloride Flush 3 Ml Syringe) 3 ml IVFLUSH QSHIFT [facility] Home Medications ?Medication ?Instructions ?Recorded ?Confirmed ?Last Taken ?Type aspirin 81 mg tablet,delayed 1 tab PO DAILY@0900 07/21/22 09/16/23 06/25/23 History release insulin lispro 100 unit/mL See Protocol subcut TIDAC 07/21/22 09/16/23 09/15/23 History subcutaneous pen mirtazapine 15 mg tablet 15 mg PO BEDTIME 09/16/23 09/16/23 Unknown History Physical Exam Vital Signs and Narrative: Vital Signs: Last Vital Signs Temp 98 F 01/13/24 16:00 Pulse 90 01/13/24 16:00 Resp 18 01/13/24 16:00 BP 168/84 H 01/13/24 16:00 Pulse Ox 96 01/13/24 16:00 O2 Del Method Room Air 01/13/24 16:00 O2 Flow Rate 97 01/13/24 14:30 BMI result Body Mass Index 22.0 Const: Other: Constitutional : Awake, interactive, not in distress Neck : Normal inspection, Supple Cardiovascular : RRR, no JVP, no lower extremity edema Respiratory : good bilateral air entry, no crackles, wheezes or rhonchi Gastrointestinal: soft, lax, Normal bowel sounds, Non tender Skin : Warm, Dry Neurological : Alert & oriented to self and place, No focal deficit but bilateral decrease sensation in LEs. Results Labs 01/13/24 12:20 01/13/24 12:20 Labs: Laboratory Results - last 24 hr 01/13/24 01/13/24 12:20 15:30 MCV 84.9 MCH 29.5 MCHC 34.7 RDW 15.2 Plt Count 112 L D MPV 8.6 L Immature Gran % (Auto) 0.5 H Neut % (Auto) 52.8 Lymph % (Auto) 35.2 [place] % (Auto) 5.7 Eos % (Auto) 5.5 H Baso % (Auto) 0.3 Lymph # (Auto) 2.7 [place] # (Auto) 0.4 Eos # (Auto) 0.4 Baso # (Auto) 0.0 Abs Immat Gran (auto) 0.04 H Absolute Neuts (auto) 4.0 Absolute Nucleated RBC 0.000 Nucleated RBC % (auto) 0.0 Anion Gap 13 Estim Creat Clear Calc 56.2 Estimated GFR 53 Random Glucose 203 H Calcium 8.8 Magnesium 2.0 Total Bilirubin 0.6 AST 14 ALT 8 Alkaline Phosphatase 72 Troponin I High Sens 23.8 H D 23.1 H Total Protein 6.3 L Albumin 2.7 L Imaging Radiologist's Impressions: Impressions Head CT 01/13/24 12:51 IMPRESSION: No acute intracranial pathology. 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
[2024-01-13] MEDS: Enoxaparin Sodium 40 MG/0.4 ML SYRINGE SUBCUT (18:04)
--- NOTE | 2024-01-13 19:21 | PC.NURSE ---
home meds pending verification, unable to give ordered med at this time
[2024-01-13] MEDS: Atorvastatin Calcium 40 MG TABLET PO (20:39)
[2024-01-13] MEDS: Melatonin 3 MG TABLET 6 MG PO (20:39)
--- NOTE | 2024-01-13 20:50 | PHA.MEDREC ---
Pharmacy Consult ? Medication Reconciliation Pharmacy has completed the medication reconciliation. Tried to talk to patient via fashion journalist for med rec but she doesn't know what she takes, she takes whatever is in the med box . Tried to call son but phone kept ringing then hung up. Notified Dr. Adams that pt hasn't picked up her meds since September (30 day supply) and that the last time she filled insulin glargine and insulin lispro was in July.
[2024-01-13] MEDS: Gabapentin 100 MG CAPSULE PO (21:00)
[2024-01-13] MEDS: Mirtazapine 15 MG TABLET PO (21:06)
[2024-01-13 21:12] LABS: Glucose, Whole Blood 226 mg/dL (60-115)
[2024-01-13] MEDS: Insulin Glargine,Hum.rec.anlog 100 UNIT/ML 10 ML VIAL SUBCUT (21:16)
[2024-01-13] MEDS: Insulin Lispro 100 UNIT/ML 3 ML VIAL SUBCUT (21:17)
[2024-01-13] MEDS: ondansetron HCL 4 MG/2 ML VIAL IVPUSH (21:40)
--- NOTE | 2024-01-13 22:25 | PC.NURSE ---
Patient remains hypertensive at this time, Dr. Douglass aware and ordered Labetalol 20mg
--- NOTE | 2024-01-13 22:33 | PC.NURSE ---
Held labetalol as patient pressure dropped to 148/73. Dr. Douglass aware
[2024-01-14] VITALS (7 sets, daily range): BP systolic 126–174; BP diastolic 64–80; PULSE 77–89; RESP 18–20; TEMP 36.2–36.8; O2SAT 94–99; BMI 22.2
[2024-01-14] MEDS: 0.9 % Sodium Chloride Flush 3 ML SYRINGE IVFLUSH ×3 (01:10→16:42)
[2024-01-14] MEDS: Labetalol HCL 100 MG/20 ML VIAL 10 MG IVPUSH (01:28)
[2024-01-14 05:28] LABS: Estimated Average Glucose 189 mg/dL; Hemoglobin A1c % 8.2 % (<6.0)
[2024-01-14 06:18] LABS: Anion Gap 8 (12-20); Blood Urea Nitrogen 11 mg/dL (9-16); Calcium 8.5 mg/dL (8.4-10.2); Carbon Dioxide 31 mmol/L (22-29); Chloride 108 mmol/L (96-108); Creatinine Clr Calc Pharmacy 51.9; Estimated Glomerular Filt Rate 49; Glucose Random 125 mg/dL (60-115); Potassium 3.7 mmol/L (3.3-5.1); Sodium 143 mmol/L (135-145)
[2024-01-14 08:38] LABS: Glucose, Whole Blood 98 mg/dL (60-115)
[2024-01-14] MEDS: Furosemide 20 MG TABLET PO (09:17)
[2024-01-14] MEDS: Aspirin Enteric Coated 81 MG TABLET.DR PO (09:17)
[2024-01-14] MEDS: Losartan Potassium 25 MG TABLET PO (09:17)
[2024-01-14] MEDS: amLODIPine Besylate 10 MG TABLET PO (09:17)
[2024-01-14] MEDS: Acetaminophen 325 MG TABLET 650 MG PO (09:17)
--- NOTE | 2024-01-14 09:21 | MHC.CM.PN ---
MARTA 01/14/24, Pt lives with her dtr, HCP is on file and confirmed, names [facility]. PCP, pt could not remember the name of her PCP, said she goes to [facility]. For DME she uses a walker. DCP: home, self care. Pt said she will need an ambulance to bring her home. CM will follow and assist with DC plan.
[2024-01-14 11:34] LABS: Glucose, Whole Blood 151 mg/dL (60-115)
--- NOTE | 2024-01-14 12:05 | PM.DS ---
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 she tried her home medicaitons but did not feel much better. No chest pain, palpitations, SOB, nausea, diarrhea or urinary symptoms. In ED found to have high BP readings of 217/100 responded partially to Labetaolol. K of 2.6. Admitted for further work up and treatment. Hospital course The patient was evaluated and treated for: # Hypertensive urgency Presented with BP of 218/100. responded well to IV Labetalol multiple doses. Likely related to her being non-adherent to her medications at home according to family. restarted home Amlodipine and lasix with addition of Losartan 25 mg daily with better control blood pressure. to be followed by PCP for further alteration of home medications. # Acute hypokalemia K of 2.6 on presentation. improved to 3.7 after replacement given. to repeat BMP as outpatient. # Type 2 DM w Hyperglycemia HbA1c of 8.2. Advised better diet control, stick with diabetic diet. increase Lantus to 10 units, SSI and diabetic diet and needs opthalmology evaluation. Discharge plan Increase Lantus to 10 units Follow with Ophthalmology as outpatient Take your medications at home as prescribed Start Losartan 25 mg daily Monitor blood pressure at home and report readings of 1 week to PCP for further alteration of home medications Gabapentin for peripheral neuropathy Repeat BMP as outpatient Time Attestation Discharge Coordination Time (in mins): 26 Quality: Safe Use of Opioids Does Pt have an Active Cancer Diagnosis on the Problem List?: No Quality: Stroke Does the patient have a stroke diagnosis?: No Physical Exam Vital Signs: Vital Signs: Last Vital Signs Temp 97.3 F 01/14/24 11:47 Pulse 89 01/14/24 11:47 Resp 20 01/14/24 11:47 BP 166/80 H 01/14/24 11:47 Pulse Ox 96 01/14/24 11:47 O2 Del Method Room Air 01/14/24 11:47 O2 Flow Rate 97 01/13/24 14:30 BMI result Body Mass Index 22.2 Const: Other: Constitutional : Awake, interactive, not in distress Neck : Normal inspection, Supple Cardiovascular : RRR, no JVP, no lower extremity edema Respiratory : good bilateral air entry, no crackles, wheezes or rhonchi Gastrointestinal: soft, lax, Normal bowel sounds, Non tender Skin : Warm, Dry Neurological : Alert & oriented to self and place, No focal deficit but bilateral decrease sensation in LEs. DS: Data Data Completed and Pending Completed studies during hospitalization [Text1]: Procedures Transfusion of Nonautologous Red Blood Cells into Peripheral Vein, Percutaneous Approach (12/17/22) Labs on day of discharge: Laboratory Results - last 24 hr 01/13/24 01/13/24 01/13/24 12:20 15:30 21:09 WBC 7.7 RBC 2.78 L Hgb 8.2 L Hct 23.6 L MCV 84.9 MCH 29.5 MCHC 34.7 RDW 15.2 Plt Count 112 L D MPV 8.6 L Immature Gran % (Auto) 0.5 H Neut % (Auto) 52.8 Lymph % (Auto) 35.2 [place] % (Auto) 5.7 Eos % (Auto) 5.5 H Baso % (Auto) 0.3 Lymph # (Auto) 2.7 [place] # (Auto) 0.4 Eos # (Auto) 0.4 Baso # (Auto) 0.0 Abs Immat Gran (auto) 0.04 H Absolute Neuts (auto) 4.0 Absolute Nucleated RBC 0.000 Nucleated RBC % (auto) 0.0 Hold Purple Top Sodium 143 Potassium 2.6 L* D Chloride 103 Carbon Dioxide 30 H Anion Gap 13 BUN 9 Creatinine 1.07 Estim Creat Clear Calc 56.2 Estimated GFR 53 POC Glucose 226 H Random Glucose 203 H Estimat Average Glucose 189 Hemoglobin A1c % 8.2 H Calcium 8.8 Magnesium 2.0 Total Bilirubin 0.6 AST 14 ALT 8 Alkaline Phosphatase 72 Troponin I High Sens 23.8 H D 23.1 H Total Protein 6.3 L Albumin 2.7 L 01/14/24 01/14/24 01/14/24 05:37 08:34 11:31 WBC RBC Hgb Hct MCV MCH MCHC RDW Plt Count MPV Immature Gran % (Auto) Neut % (Auto) Lymph % (Auto) [place] % (Auto) Eos % (Auto) Baso % (Auto) Lymph # (Auto) [place] # (Auto) Eos # (Auto) Baso # (Auto) Abs Immat Gran (auto) Absolute Neuts (auto) Absolute Nucleated RBC Nucleated RBC % (auto) Hold Purple Top SEE NOTE Sodium 143 Potassium 3.7 D Chloride 108 Carbon Dioxide 31 H Anion Gap 8 L BUN 11 Creatinine 1.16 Estim Creat Clear Calc 51.9 Estimated GFR 49 POC Glucose 98 151 H Random Glucose 125 H Estimat Average Glucose Hemoglobin A1c % Calcium 8.5 Magnesium Total Bilirubin AST ALT Alkaline Phosphatase Troponin I High Sens Total Protein Albumin Imaging Chest x-ray: Radiologist's impression: ITS Impressions Head CT 01/13/24 12:51 IMPRESSION: No acute intracranial pathology. Electronically signed by: Everardo Shin MD 01/13/2024 03:31 PM EDT RP Discharge Plan Discharge Anticipated Discharge Date/Time: 01/14/24 12:00 Patient Disposition: Home, Self-Care Discharge Diagnosis: Uncontrolled hypertension Referrals: Neelima Brown MD [Primary Care Provider] - 1 Week Discharge Medications: New losartan 25 mg Tablet 25 mg PO DAILY Qty: 90 0RF Protocol: Hold for SBP< HOLD for SBP < : 90 gabapentin 100 mg Capsule 100 mg PO BEDTIME Qty: 90 0RF Continued aspirin 81 mg tablet,delayed release (DR/EC) 1 tab PO DAILY@0900 insulin lispro 100 unit/mL insulin pen See Protocol subcut TIDA Protocol: Insulin Correction Scale Less than or equal to 110 ---- Give (units): 0 111 to 150 Give (units): 0 151 to 200 Give (units): 10 201 to 250 Give (units): 12 251 to 300 Give (units): 14 301 to 350 Give (units): 16 Greater than 350 Give (units): 18 Call MD if Blood Glucose > : 350 (DME) FreeStyle Test Strip See Rx Instructions .Route Qty: 100 0RF Rx Instructions: As directed mirtazapine 15 mg tablet 15 mg PO BEDTIME atorvastatin 40 mg Tablet 40 mg PO BEDTIME Qty: 30 0RF amlodipine 10 mg Tablet 10 mg PO DAILY Qty: 30 0RF Protocol: Hold for SBP< HOLD for SBP < : 90 furosemide 20 mg Tablet 20 mg PO DAILY Qty: 30 0RF Protocol: Hold for SBP< HOLD for SBP < : 90 cyanocobalamin (vitamin B-12) 1,000 mcg/mL solution 1,000 mcg IM QWEEK Qty: 4 0RF rosuvastatin 40 mg tablet 40 mg PO QAM Changed insulin glargine [Lantus U-100 Insulin] 100 unit/mL Solution 10 unit subcut BEDTIME Qty: 10 0RF Discharge Orders: Discharge Order (Routine); Ordered 01/14/24 Ordered By: Saji Adams Diet: Advance to usual diet Activity on Discharge: As tolerated Stand Alone Forms: Patient Portal Discharge page Print Language: Hungarian Other Ambulatory Orders: Basic Metabolic Panel (Routine) Timeframe: 5 Days Facility: [facility] - Location: Laboratory Ordered By: Saji Adams Care Plan Goals: You were treated for elevated blood pressure readings with IV and oral medications with good response. Increase Lantus to 10 units Follow with Ophthalmology as outpatient Take your medications at home as prescribed Start Losartan 25 mg daily Monitor blood pressure at home and report readings of 1 week to PCP for further alteration of home medications Gabapentin for peripheral neuropathy Repeat BMP as outpatient Health Concerns: Read below Plan of Treatment: Read below Assessment: Read below
--- NOTE | 2024-01-14 12:20 | MHC.CM.PN ---
Pt has been medically cleared for DC. She will go home this afternoon via BLS, plan is self care.
[2024-01-14] MEDS: Insulin Lispro 100 UNIT/ML 3 ML VIAL SUBCUT (12:27)
[2024-01-14 16:40] LABS: Glucose, Whole Blood 142 mg/dL (60-115)
[2024-01-14] MEDS: Enoxaparin Sodium 40 MG/0.4 ML SYRINGE SUBCUT (16:42)
== END 2024-01-14 18:27 | disposition home or self-care (01) ==
LOC: HO.ED 14:07 → HO.EDOVER 17:33 → HO.IMC 22:06
PROVIDERS: Physician Assistant; Admitting Provider Student in an Organized Health Care Education/Training Program; Emergency Provider Emergency Medicine Emergency Medical Services; PCP Internal Medicine; Visit Provider Student in an Organized Health Care Education/Training Program
DX: I16.0 Hypertensive urgency (principal); E87.6 Hypokalemia; E11.65 Type 2 diabetes mellitus 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; R51.9 Headache, unspecified; R53.81 Other malaise; R11.0 Nausea; D64.9 Anemia, unspecified; D69.6 Thrombocytopenia, unspecified; I11.0 Hypertensive heart disease with heart failure; I50.30 Unspecified diastolic (congestive) heart failure; I25.10 Atherosclerotic heart disease of native coronary artery without angina pectoris; G62.9 Polyneuropathy, unspecified; Z79.899 Other long term (current) drug therapy
CPT/HCPCS: 36415; 70450; 80048; 80053; 82947; 83036; 83735; 84484; 85025; 93005; 96365; 96372; 96375; 96376; 97161; 99222; 99285; J1650; J1920; J2405; J3480

== ENCOUNTER → 2024-01-13 17:24 | Outpatient (BNV) | payer MEDICAID, SELFPAY | PROVIDERS: Admitting Provider Student in an Organized Health Care Education/Training Program; Emergency Provider Emergency Medicine Emergency Medical Services; Visit Provider Student in an Organized Health Care Education/Training Program | DX: I16.0 Hypertensive urgency (principal); E87.6 Hypokalemia | CPT/HCPCS: 99223; 99238 ==

== ENCOUNTER 2024-01-25 14:22 | Emergency (ER) | payer MEDICAID, SELFPAY ==
[2024-01-25] VITALS (7 sets, daily range): BP systolic 138–204; BP diastolic 57–92; PULSE 83–94; RESP 15–20; TEMP 36.2–37.1; O2SAT 94–98; BMI 24.2
--- NOTE | ~2024-01-25 | XR_ITS ---
EXAMINATION: XR CHEST 2 VIEWS CLINICAL INFORMATION: dyspnea COMPARISON: Prior chest x-ray September 16, 2023 TECHNIQUE: XR CHEST 2 VIEWS, 2 Views Lungs and Sunitha: Opacity at left lung base suggesting infiltrate and/or atelectasis. Pleura: Bilateral subpulmonic pleural effusions right more than left. Heart: The heart is normal in size. Mediastinum: The mediastinum is within normal limits.. Bones: Skeletal structures included are normal for patient's age. XR/XR chest 2V IMPRESSION: 1. Infiltrate/atelectasis at left lung base. 2. Bilateral subpulmonic pleural effusions right more than left. 3. Follow-up recommended to ensure complete clearance and exclude underlying pathology. Electronically signed by: Radha Ortiz MD 01/25/2024 03:30 PM EDT
--- NOTE | 2024-01-25 14:32 | ED.GENADULT ---
HPI - General Adult General Chief complaint: Chest Pain Stated complaint: WEAKNESS,HIGH BP 190/76 PER EMS Time Seen by Provider: 01/25/24 18:09 History of Present Illness ED Provider: iain KELLER narrative: Patient is 53 years old with history of diabetes type 2, hypertension, diastolic heart failure, postural hypotension just discharged on 01/13 for hypokalemia and uncontrolled hypertension patient comes back as she not feeling well with weakness and dizziness noted to have blood pressure 190/76 with any significant shortness a breath odor to have potassium of 2.8 again patient is not on any supplemental potassium although she is taking furosemide 20 mg daily Related Data Home Medications ?Medication ?Instructions ?Recorded ?Confirmed aspirin 81 mg tablet,delayed 1 tab PO DAILY@0900 07/21/22 01/13/24 release insulin lispro 100 unit/mL See Protocol subcut TIDAC 07/21/22 01/13/24 subcutaneous pen mirtazapine 15 mg tablet 15 mg PO BEDTIME 09/16/23 01/13/24 rosuvastatin 40 mg tablet 40 mg PO QAM 01/13/24 01/13/24 Previous Rx's ?Medication ?Instructions ?Recorded blood sugar diagnostic (FreeStyle #100 ea 10/02/22 Test strips) amlodipine 10 mg tablet 10 mg PO DAILY #30 tabs 09/19/23 atorvastatin 40 mg tablet 40 mg PO BEDTIME #30 tabs 09/19/23 cyanocobalamin (vitamin B-12) 1,000 mcg IM QWEEK #4 mL 09/19/23 1,000 mcg/mL injection solution furosemide 20 mg tablet 20 mg PO DAILY #30 tabs 09/19/23 gabapentin 100 mg capsule 100 mg PO BEDTIME #90 caps 01/14/24 insulin glargine 100 unit/mL 10 unit (0.1 mL) subcut BEDTIME 01/14/24 subcutaneous solution (Lantus #10 mL U-100 Insulin) losartan 25 mg tablet 25 mg PO DAILY #90 tabs 01/14/24 potassium chloride 20 mEq 20 meq PO DAILY #20 tabs 01/26/24 tablet,extended release (K-Tab) Allergies Allergy/AdvReac Type Severity Reaction Status Date / Time shrimp Allergy Swelling Verified 01/25/24 14:30 Review of Systems Review of Systems: Yes all other systems are reviewed and are negative PMFSH Past Medical History Medical History Hypertension Symptomatic anemia Brain lesion Iron deficiency anemia HLD (hyperlipidemia) Anemia Depression Type 2 diabetes mellitus Family History Family History Other Hypertension Social History Social History Household Members: Children Household Members Other:: Daughter Housing: Apartment Do you presently have visiting nurse or other home services: No Unable to assess alcohol history related to: Unable to respond Alcohol intake: never Patient Tobacco Use Status: Never used Tobacco Smoked in Last 30 Days: No e-Cigarette/Vaping Use: Never Used Second Hand Smoke Exposure: No Use of substances other than those prescribed or required for medical reasons: No Advance Directives: Yes Advance Directives on File: Yes Advance Directives Date on File: 06/19/21 Do you have a plan to hurt others: No Plan service: No Current occupational status: unemployed Physical Exam ED Vital Signs: Vital Signs - 24 hr 01/25/24 14:28 01/25/24 16:45 01/25/24 17:58 Temperature 97.4 F 98.7 F 98.6 F Pulse Rate 89 87 83 Respiratory Rate 18 15 15 Blood Pressure 193/74 H 204/92 H 198/85 H Pulse Oximetry 98 94 94 Oxygen Delivery Method Room Air Room Air Room Air 01/25/24 19:20 01/25/24 19:47 01/25/24 21:07 Temperature 97.2 F 98.3 F Pulse Rate 94 85 Respiratory Rate 20 17 Blood Pressure 186/75 H 191/77 H 142/57 H Pulse Oximetry 97 94 Oxygen Delivery Method Room Air Room Air 01/25/24 22:27 01/26/24 00:52 Temperature 98.5 F 98.0 F Pulse Rate 87 83 Respiratory Rate 16 16 Blood Pressure 189/89 H 175/80 H Pulse Oximetry 94 96 Oxygen Delivery Method Room Air Room Air BMI result Body Mass Index 24.2 Appearance: Alert. Oriented X3. No acute distress. Eyes: No pallor or icterus ENT: Pharynx normal. Oral Mucosa moist Neck: Normal inspection. Neck supple. CVS: Normal heart rate and rhythm. Pulses normal. Respiratory: No respiratory distress. Equal air entry bilateral, no wheezing/rales/rhonchi Abdomen: Soft and nontender. Bowel sounds are present, no mass palpable, no CVA tenderness Skin: Skin warm and dry. Normal skin color. Normal skin turgor. Extremities: 1+ lower extremity edema. No calf tenderness Neuro: Oriented X 3. No motor deficit. No sensory deficit.No cerebellar signs , cranial nerves II-XII intact Course Course Course Narrative: This is a rapid medical exam performed by Lizandro Galdamez NP: Additional HPI, ROS, PE not included below will be deferred to primary provider. Patient is a 53-year-old Dominican speaking female with history of HTN, CHF, anemia presenting with complaint of high blood pressure and dizziness, leg pain. Complains of dyspnea, denies chest pain, reports generalized body aches. States she is not on BP medications. Plan: EKG, labs Medications Administered Discontinued Medications Generic Name Dose Route Start Last Admin Trade Name Freq PRN Reason Stop Dose Admin Acetaminophen 975 mg 01/25/24 19:37 01/25/24 19:44 Acetaminophen 325 Mg Tablet PO 01/25/24 19:38 975 mg ONCE ONE Administration Sodium Chloride 1,000 mls @ 999 mls/hr 01/25/24 18:12 01/25/24 19:48 Ns IV 01/25/24 19:12 Infused .Q1H1M ONE Infusion Potassium Chloride 10 meq in 100 mls @ 100 mls/hr 01/25/24 18:12 01/25/24 19:38 Potassium Chloride/H20 IV 01/25/24 19:11 Infused ONCE ONE Infusion Losartan Potassium 50 mg 01/25/24 18:59 01/25/24 19:20 Losartan Potassium 50 Mg Tablet PO 01/25/24 19:00 50 mg ONCE ONE Administration Protocol Potassium Bicarbonate 50 meq 01/25/24 18:12 01/25/24 18:25 Potassium Bicarbonate/Cit Ac 25 Meq Tablet.Eff PO 01/25/24 18:13 50 meq ONCE ONE Administration Medical Decision Making Medical Decision Making MDM Narrative: Patient is 53 years old with history of diabetes type 2, hypertension, diastolic heart failure, postural hypotension just discharged on 01/13 for hypokalemia and uncontrolled hypertension patient comes back as she not feeling well noted to have which responded to losartan will increase the dose of losartan to 50 mg daily potassium level was 2.8 which improved after p.o. potassium and IV potassium patient not on any potassium supplement will give a potassium supplement. Differential Diagnosis Differential Diagnoses: The differential diagnosis associated with the presentation includes Hypokalemia/ hypomagnesemia/ UTI Lab Data MDM Lab Attestation statement: I reviewed the patient's lab results. 01/25/24 14:45 01/26/24 00:18 Labs: Lab Results 01/25/24 01/25/24 01/25/24 Range/Units 14:45 17:03 17:07 WBC 7.7 (4.8-10.8) X10*3/uL RBC 2.89 L (4.20-5.50) X10*6/uL Hgb 8.4 L (12.0-16.0) g/dl Hct 24.5 L (37.0-47.0) % MCV 84.8 (80.0-98.0) fL MCH 29.1 (27.0-33.0) pg MCHC 34.3 (31.0-35.0) g/dl RDW 14.6 (11.0-16.0) % Plt Count 227 D (160-400) X10*3/uL MPV 8.6 L (9.4-12.3) fL Immature Gran % (Auto) 0.4 (0.0-0.4) % Neut % (Auto) 66.1 (45-73) % Lymph % (Auto) 23.0 (20-40) % [place] % (Auto) 4.4 (2-11) % Eos % (Auto) 5.7 H (0-4) % Baso % (Auto) 0.4 (0-2) % Lymph # (Auto) 1.8 (1.2-4.9) X10*3/uL [place] # (Auto) 0.3 (0.1-1.2) X10*3/uL Eos # (Auto) 0.4 (0.0-0.4) X10*3/uL Baso # (Auto) 0.0 (0.0-0.2) X10*3/uL Abs Immat Gran (auto) 0.03 (0.00-0.03) X10*3/uL Absolute Neuts (auto) 5.1 (2.0-8.3) x10*3/uL Absolute Nucleated RBC 0.000 (0.0-0.012) X10*3/uL Nucleated RBC % (auto) 0.0 (0.0-0.2) /100WBC PT 10.8 L (10.9-12.4) SEC INR 0.9 (0.9-1.1) Sodium 141 (135-145) mmol/L Potassium 2.8 L* D (3.3-5.1) mmol/L Chloride 104 (96-108) mmol/L Carbon Dioxide 28 (22-29) mmol/L Anion Gap 12 (12-20) BUN 14 (9-16) mg/dL Creatinine 1.34 (0.5-1.4) mg/dL Estim Creat Clear Calc 41.4 Estimated GFR 41 POC Glucose 127 H (60-115) mg/dL Random Glucose 124 H (60-115) mg/dL Calcium 9.0 (8.4-10.2) mg/dL Magnesium 2.1 (1.6-2.6) mg/dL Total Bilirubin 0.3 (0.0-1.0) mg/dL AST 12 (5-31) U/L ALT 7 (0-31) U/L Alkaline Phosphatase 88 (39-117) U/L Troponin I High Sens 14.4 14.8 (<3.5-17.0) ng/L B-Natriuretic Peptide 753 H (<100) pg/mL Total Protein 7.1 (6.5-8.0) g/dL Albumin 2.8 L (3.5-5.0) g/dL Influenza Type A (PCR) NEGATIVE (Negative) Influenza Type B (PCR) NEGATIVE (Negative) RSV RNA Qual (PCR) NEGATIVE (Negative) SARS-CoV-2 RNA (RT-PCR) NEGATIVE (Negative) 01/26/24 Range/Units 00:18 WBC (4.8-10.8) X10*3/uL RBC (4.20-5.50) X10*6/uL Hgb (12.0-16.0) g/dl Hct (37.0-47.0) % MCV (80.0-98.0) fL MCH (27.0-33.0) pg MCHC (31.0-35.0) g/dl RDW (11.0-16.0) % Plt Count (160-400) X10*3/uL MPV (9.4-12.3) fL Immature Gran % (Auto) (0.0-0.4) % Neut % (Auto) (45-73) % Lymph % (Auto) (20-40) % [place] % (Auto) (2-11) % Eos % (Auto) (0-4) % Baso % (Auto) (0-2) % Lymph # (Auto) (1.2-4.9) X10*3/uL [place] # (Auto) (0.1-1.2) X10*3/uL Eos # (Auto) (0.0-0.4) X10*3/uL Baso # (Auto) (0.0-0.2) X10*3/uL Abs Immat Gran (auto) (0.00-0.03) X10*3/uL Absolute Neuts (auto) (2.0-8.3) x10*3/uL Absolute Nucleated RBC (0.0-0.012) X10*3/uL Nucleated RBC % (auto) (0.0-0.2) /100WBC PT (10.9-12.4) SEC INR (0.9-1.1) Sodium 142 (135-145) mmol/L Potassium 3.4 D (3.3-5.1) mmol/L Chloride 108 (96-108) mmol/L Carbon Dioxide 28 (22-29) mmol/L Anion Gap 9 L (12-20) BUN 13 (9-16) mg/dL Creatinine 1.15 (0.5-1.4) mg/dL Estim Creat Clear Calc 48.3 Estimated GFR 49 POC Glucose (60-115) mg/dL Random Glucose 109 (60-115) mg/dL Calcium 8.0 L D (8.4-10.2) mg/dL Magnesium (1.6-2.6) mg/dL Total Bilirubin (0.0-1.0) mg/dL AST (5-31) U/L ALT (0-31) U/L Alkaline Phosphatase (39-117) U/L Troponin I High Sens (<3.5-17.0) ng/L B-Natriuretic Peptide (<100) pg/mL Total Protein (6.5-8.0) g/dL Albumin (3.5-5.0) g/dL Influenza Type A (PCR) (Negative) Influenza Type B (PCR) (Negative) RSV RNA Qual (PCR) (Negative) SARS-CoV-2 RNA (RT-PCR) (Negative) Discharge Plan Discharge Clinical Impression: Hypokalemia, Hypertension, CHF (congestive heart failure) Patient Disposition: Home, Self-Care Instructions: Heart Failure (ED), Potassium Content of Foods List (ED), Hypokalemia (ED), Chronic Hypertension (ED) Additional Instructions: Increase the dose of losartan to 50 mg daily and continue furosemide 20 mg daily Will add potassium tablets 1 tablet daily for low potassium because of use of Lasix Follow with your PCP Prescriptions: New potassium chloride [K-Tab] 20 mEq tablet extended release 20 meq PO DAILY Qty: 20 0RF No Action aspirin 81 mg tablet,delayed release (DR/EC) 1 tab PO DAILY@0900 insulin lispro 100 unit/mL insulin pen See Protocol subcut TIDAC Protocol: Insulin Correction Scale Less than or equal to 110 ---- Give (units): 0 111 to 150 Give (units): 0 151 to 200 Give (units): 10 201 to 250 Give (units): 12 251 to 300 Give (units): 14 301 to 350 Give (units): 16 Greater than 350 Give (units): 18 Call MD if Blood Glucose > : 350 (DME) FreeStyle Test Strip See Rx Instructions .Route Qty: 100 0RF Rx Instructions: As directed mirtazapine 15 mg tablet 15 mg PO BEDTIME atorvastatin 40 mg Tablet 40 mg PO BEDTIME Qty: 30 0RF amlodipine 10 mg Tablet 10 mg PO DAILY Qty: 30 0RF Protocol: Hold for SBP< HOLD for SBP < : 90 furosemide 20 mg Tablet 20 mg PO DAILY Qty: 30 0RF Protocol: Hold for SBP< HOLD for SBP < : 90 cyanocobalamin (vitamin B-12) 1,000 mcg/mL solution 1,000 mcg IM QWEEK Qty: 4 0RF rosuvastatin 40 mg tablet 40 mg PO QAM losartan 25 mg Tablet 25 mg PO DAILY Qty: 90 0RF Protocol: Hold for SBP< HOLD for SBP < : 90 gabapentin 100 mg Capsule 100 mg PO BEDTIME Qty: 90 0RF insulin glargine [Lantus U-100 Insulin] 100 unit/mL Solution 10 unit subcut BEDTIME Qty: 10 0RF Print Language: Dominican
--- NOTE | 2024-01-25 14:34 | ECG_ITS ---
Test Reason : HTN, DIZZY Blood Pressure : / mmHG Vent. Rate : 088 BPM Atrial Rate : 088 BPM P-R Int : 148 ms QRS Dur : 068 ms QT Int : 398 ms P-R-T Axes : 056 011 013 degrees QTc Int : 481 ms Normal sinus rhythm Nonspecific T wave abnormality Prolonged QT Abnormal ECG When compared with ECG of 13-JAN-2024 13:49, No significant change was found Referred By: Alysha Galdamez Electronically Signed By:CRISTA OWEN
[2024-01-25 14:50] LABS: MANUAL DIFF FLAG NO
[2024-01-25 14:56] LABS: Basophils Percent Auto 0.4 % (0-2); Eosinophils Absolute Auto 0.4 X10*3/uL (0.0-0.4); Eosinophils Percent Auto 5.7 % (0-4); Hematocrit 24.5 % (37.0-47.0); Hemoglobin 8.4 g/dl (12.0-16.0); Imm Gran Abs Auto 0.03 X10*3/uL (0.00-0.03); Imm Gran Pct Auto 0.4 % (0.0-0.4); Lymphocytes Absolute Auto 1.8 X10*3/uL (1.2-4.9); Mean Corpuscular HGB Conc 34.3 g/dl (31.0-35.0); Mean Corpuscular Hemoglobin 29.1 pg (27.0-33.0); Mean Corpuscular Volume 84.8 fL (80.0-98.0); Mean Platelet Volume 8.6 fL (9.4-12.3); Monocytes Absolute Auto 0.3 X10*3/uL (0.1-1.2); Monocytes Percent Auto 4.4 % (2-11); Neutrophils Absolute Auto 5.1 x10*3/uL (2.0-8.3); Neutrophils Percent Auto 66.1 % (45-73); Platelet Count 227 X10*3/uL (160-400); Red Blood Count 2.89 X10*6/uL (4.20-5.50); Red Cell Distribution Width 14.6 % (11.0-16.0); White Blood Count 7.7 X10*3/uL (4.8-10.8)
[2024-01-25 15:09] LABS: Alanine Aminotransferase 7 U/L (0-31); Albumin Level 2.8 g/dL (3.5-5.0); Alkaline Phosphatase 88 U/L (39-117); Anion Gap 12 (12-20); Aspartate Amino Transferase 12 U/L (5-31); Bilirubin Total 0.3 mg/dL (0.0-1.0); Blood Urea Nitrogen 14 mg/dL (9-16); Carbon Dioxide 28 mmol/L (22-29); Chloride 104 mmol/L (96-108); Creatinine Clr Calc Pharmacy 41.4; Estimated Glomerular Filt Rate 41; Glucose Random 124 mg/dL (60-115); Magnesium 2.1 mg/dL (1.6-2.6); Potassium 2.8 mmol/L (3.3-5.1); Sodium 141 mmol/L (135-145); Total Protein 7.1 g/dL (6.5-8.0)
[2024-01-25 15:11] LABS: B Type Natriuretic Peptide 753 pg/mL (<100)
[2024-01-25 15:14] LABS: Troponin-I High Sensitivity 14.4 ng/L (<3.5-17.0)
[2024-01-25 15:15] LABS: INTERNATIONAL NORM RATIO 0.9 (0.9-1.1); Prothrombin Time 10.8 SEC (10.9-12.4)
[2024-01-25 15:29] LABS: Influenza A PCR NEGATIVE (Negative); Influenza B PCR NEGATIVE (Negative); Resp Syncy Virus RNA Qual PCR NEGATIVE (Negative); SARS COV2 PCR INHOUSE NEGATIVE (Negative)
[2024-01-25 17:20] LABS: Glucose, Whole Blood 127 mg/dL (60-115)
[2024-01-25 17:30] LABS: Troponin-I High Sensitivity 14.8 ng/L (<3.5-17.0)
[2024-01-25] MEDS: Potassium Chloride/H20 10 MEQ/100 ML PIGGYBACK 100 MEQ IV (18:22)
[2024-01-25] MEDS: 0.9 % Sodium Chloride 1,000 ML 999 ML IV (18:24)
[2024-01-25] MEDS: Potassium Bicarbonate/Cit AC 25 MEQ TABLET.EFF 50 MEQ PO (18:25)
--- NOTE | 2024-01-25 19:10 | PC.NURSE ---
Assumed care of pt. Pt lyoing on stretcher, endoring headache, denies CP/SOB at this time.
[2024-01-25] MEDS: Losartan Potassium 50 MG TABLET PO (19:20)
[2024-01-25] MEDS: Acetaminophen 325 MG TABLET 975 MG PO (19:44)
--- NOTE | 2024-01-25 22:28 | MHC.EDTECH ---
Patient had a tuna fish sandwich and orange juice for snack .
[2024-01-26 00:45] LABS: Anion Gap 9 (12-20); Blood Urea Nitrogen 13 mg/dL (9-16); Carbon Dioxide 28 mmol/L (22-29); Chloride 108 mmol/L (96-108); Creatinine Clr Calc Pharmacy 48.3; Estimated Glomerular Filt Rate 49; Glucose Random 109 mg/dL (60-115); Potassium 3.4 mmol/L (3.3-5.1); Sodium 142 mmol/L (135-145)
[2024-01-26 00:52] VITALS: BP 175/80; PULSE 83; RESP 16; TEMP 36.7; O2SAT 96
--- NOTE | 2024-01-26 01:23 | MHC.EDTECH ---
This tech took over care of patient at 0040,rounds and vitals completed,patient is resting quietly,call sampson in reach
[2024-01-26 03:56] VITALS: BP 169/80; PULSE 79; RESP 18; TEMP 36.7; O2SAT 97
[2024-01-26 03:58] VITALS: BP 169/80; PULSE 79; RESP 18; TEMP 36.7; O2SAT 97
== END 2024-01-26 03:59 | disposition home or self-care (01) ==
PROVIDERS: Registered Nurse Emergency; Emergency Provider Internal Medicine
DX: E87.6 Hypokalemia (principal); I11.0 Hypertensive heart disease with heart failure; I50.30 Unspecified diastolic (congestive) heart failure; R06.02 Shortness of breath; E11.9 Type 2 diabetes mellitus without complications; Z79.899 Other long term (current) drug therapy; Z03.818 Encounter for observation for suspected exposure to other biological agents ruled out
CPT/HCPCS: 0241U; 36415; 71046; 80048; 80053; 82947; 83735; 83880; 84484; 85025; 85610; 93005; 96365; 96366; 99285; J3480

== ENCOUNTER 2024-02-07 17:22 | Inpatient (IN) | payer MEDICAID, SELFPAY ==
[2024-02-07] VITALS (12 sets, daily range): BP systolic 146–167; BP diastolic 58–75; PULSE 99–110; RESP 13–31; TEMP 36.8–37.6; O2SAT 87–95; BMI 25.7
--- NOTE | ~2024-02-07 | CT_ITS ---
EXAMINATION: CT CHEST WITHOUT CONTRAST CLINICAL INFORMATION: SOB, hypoxia, CHF v. PNA v. mass COMPARISON: Chest radiograph earlier this afternoon: Interval worsening of large bilateral pleural effusions with bibasilar atelectasis CT chest 07/21/2022 TECHNIQUE: Multidetector volumetric CT imaging of the chest was done. Axial MIP volume rendering provided. Sagittal and coronal reformatted images were obtained. This CT examination was performed using dose optimization techniques as appropriate, variously including the following: *Automated exposure control *Adjustment of mA and/or kV according to patient size (this includes techniques or standardized protocols for targeted exams where dose is matched to indication/reason for exam; i.e. extremities or head) *Use of iterative reconstruction technique DLP: 408 mGy-cm FINDINGS: LUNGS AND PLEURA: There are large bilateral pleural effusions with collapse/consolidation of the lower lobes as well as the right middle lobe and lingula. Only the upper lobes are aerated. There are groundglass infiltrates present in both upper lobes. MEDIASTINUM: There is mild cardiac enlargement. A tiny pericardial effusion is present. No aortic aneurysm. No mediastinal or hilar lymphadenopathy. CORONARY ARTERY CALCIFICATION: None visualized on this study. AXILLA: No lymphadenopathy. CHEST WALL: There is mild anasarca. UPPER ABDOMEN: Status post cholecystectomy. OSSEOUS STRUCTURES: Mild degenerative changes are present in the spine. No bony destruction. CT/CT chest wo IV con IMPRESSION: 1. Large bilateral pleural effusions with collapse/consolidation of the lower lobes as well as the right middle lobe and lingula. 2. Groundglass infiltrates in both upper lobes. 3. Mild cardiomegaly with tiny pericardial effusion. 4. Mild anasarca. Fleischner guidelines were followed. Electronically signed by: Ric Pat MD 02/07/2024 10:59 PM EDT
--- NOTE | ~2024-02-07 | XR_ITS ---
EXAMINATION: XR CHEST CLINICAL INFORMATION: Worsening dyspnea COMPARISON: 02/07/2024 CT. 02/08/2024 chest x-ray. TECHNIQUE: Frontal view of the chest was obtained. FINDINGS: Similar moderate left pleural effusion and increasing small right pleural effusion with patchy basilar opacities. Stable cardiomediastinal silhouette. XR/XR chest 1V IMPRESSION: Similar moderate left pleural effusion and increasing small right pleural effusion with patchy basilar opacities. Electronically signed by: Brando Johnson MD 02/08/2024 07:43 AM EDT
--- NOTE | ~2024-02-07 | XR_ITS ---
EXAMINATION: XR CHEST CLINICAL INFORMATION: Chest pain and shortness of breath COMPARISON: 01/25/2024 TECHNIQUE: Frontal view of the chest was obtained. FINDINGS: Low lung volumes. Interval worsening of bilateral pleural effusions with bibasilar atelectasis. Heart is unremarkable. XR/XR chest 1V IMPRESSION: Interval worsening of large bilateral pleural effusions with bibasilar atelectasis Electronically signed by: Tim Wolff MD 02/07/2024 08:01 PM EDT
--- NOTE | ~2024-02-07 | US_ITS ---
PROCEDURE: Ultrasound-guided left thoracentesis History: Left pleural effusion Specimen: None Access: 5 [place] Yueh catheter Medications: 10 mL 1% lidocaine TECHNIQUE/FINDINGS Appropriate preprocedural clinical history and imaging studies were reviewed. The patient was brought to the department and placed in the seated position. Ultrasound images of the left thorax were obtained to localize a moderate pleural effusion. Permanent ultrasound images were saved. Risks and benefits and possible complications were discussed with the patient and consent form was signed. An area of the patient's left back was prepped and draped in usual sterile fashion. 10 mL of 1% lidocaine was used to obtain local anesthesia of the skin and deeper tissues. A standard small bore needle was introduced to sample pleural fluid and demonstrate a safe access route. A 5 [place] Yueh catheter was then used to access the pleural cavity. 500 ml of yellow fluid was removed passively. The catheter was then removed. A dressing was applied. A postprocedure chest x-ray will be performed and will be dictated separately. There were no immediate complications. The procedure was performed by Gene Linares PA-C and supervised by Dr. Elena US/US thoracentesis Impression: Ultrasound-guided left thoracentesis Electronically signed by: Duane Elena MD 02/10/2024 05:09 PM EDT
--- NOTE | ~2024-02-07 | XR_ITS ---
EXAMINATION: XR CHEST CLINICAL INFORMATION: Status post right thoracentesis COMPARISON: CT chest 02/07/2024. Chest radiograph 02/07/2024. TECHNIQUE: Frontal view of the chest was obtained. FINDINGS: Normal appearance of the cardiomediastinal structures. No pneumothoraces identified. Moderate blunting of left costophrenic sulcus. Left base airspace opacification. Cholecystectomy clips. XR/XR chest 1V IMPRESSION: *No pneumothoraces. *Interval resolution of the previous noted right pleural effusion. *Small left pleural effusion and left base atelectasis and/or consolidation. Electronically signed by: Osei Alexander MD 02/08/2024 02:12 AM EDT
--- NOTE | ~2024-02-07 | XR_ITS ---
EXAMINATION: XR CHEST CLINICAL INFORMATION: Status post left thoracentesis COMPARISON: Chest 02/09/2024 TECHNIQUE: AP upright portable view of the chest was obtained. 10:15 AM FINDINGS: Significant interval decrease in right pleural effusion. No pneumothorax. Mild hazy opacity at the right lung base may be due to slight remain pleural effusion and underlying atelectasis and/or infiltrate. Interval decrease in left lower lobe retrocardiac infiltrate. Heart size is borderline normal. Pulmonary vascularity is normal. No acute bony abnormality. XR/XR chest 1V IMPRESSION: 1. Significant interval decrease in right pleural effusion. No pneumothorax. 2. Interval decrease in left lower lobe retrocardiac infiltrate. Electronically signed by: Gwendolyn Leslie MD 02/10/2024 03:02 PM EDT
--- NOTE | ~2024-02-07 | XR_ITS ---
EXAMINATION: XR CHEST CLINICAL INFORMATION: Hypoxia. Follow-up pneumonia versus CHF COMPARISON: Chest 02/08/2024 at 4:34 AM. TECHNIQUE: Frontal view of the chest was obtained. FINDINGS: There is moderate haziness in the right lung base likely from pleural effusion and underlying atelectasis/consolidation. There is a left lower lobe retrocardiac consolidation. There is no visible pneumothorax. The heart size is borderline normal. Pulmonary vascularity is normal. No gross bony abnormality seen. XR/XR chest 1V IMPRESSION: 1. Moderate right pleural effusion with underlying atelectasis/consolidation. 2. Left lower lobe retrocardiac consolidation. Electronically signed by: Jeremiah Farr MD 02/09/2024 08:56 AM EDT
--- NOTE | 2024-02-07 17:52 | ECG_ITS ---
Test Reason : CHEST PAIN Blood Pressure : / mmHG Vent. Rate : 103 BPM Atrial Rate : 000 BPM P-R Int : 000 ms QRS Dur : 070 ms QT Int : 350 ms P-R-T Axes : 000 019 -05 degrees QTc Int : 458 ms Sinus tachycardia Anterior infarct , age undetermined Nonspecific T wave abnormality Abnormal ECG When compared with ECG of 25-JAN-2024 14:32, Nonspecific T wave abnormality, worse in Inferior leads QT has shortened Referred By: Rand Dumas Electronically Signed By:CRISTA OWEN
--- NOTE | 2024-02-07 18:04 | ED_ITS ---
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 Onset of symptoms was ?a while ago?, reported to EMS symptom onset 5 days ago. She has chronic hypoxic respiratory failure for which she uses supplemental oxygen at 2 L via nasal cannula at baseline. Denies any fevers. Denies any known sick contacts. When asked whether she takes any diuretics she is uncertain Related Data Home Medications ?Medication ?Instructions ?Recorded ?Confirmed aspirin 81 mg tablet,delayed 1 tab PO DAILY@0900 07/21/22 01/13/24 release insulin lispro 100 unit/mL See Protocol subcut TIDAC 07/21/22 01/13/24 subcutaneous pen mirtazapine 15 mg tablet 15 mg PO BEDTIME 09/16/23 01/13/24 rosuvastatin 40 mg tablet 40 mg PO QAM 01/13/24 01/13/24 Previous Rx's ?Medication ?Instructions ?Recorded blood sugar diagnostic (FreeStyle #100 ea 10/02/22 Test strips) amlodipine 10 mg tablet 10 mg PO DAILY #30 tabs 09/19/23 atorvastatin 40 mg tablet 40 mg PO BEDTIME #30 tabs 09/19/23 cyanocobalamin (vitamin B-12) 1,000 mcg IM QWEEK #4 mL 09/19/23 1,000 mcg/mL injection solution furosemide 20 mg tablet 20 mg PO DAILY #30 tabs 09/19/23 gabapentin 100 mg capsule 100 mg PO BEDTIME #90 caps 01/14/24 insulin glargine 100 unit/mL 10 unit (0.1 mL) subcut BEDTIME 01/14/24 subcutaneous solution (Lantus #10 mL U-100 Insulin) losartan 25 mg tablet 25 mg PO DAILY #90 tabs 01/14/24 potassium chloride 20 mEq 20 meq PO DAILY #20 tabs 01/26/24 tablet,extended release (K-Tab) Allergies Allergy/AdvReac Type Severity Reaction Status Date / Time shrimp Allergy Swelling Verified 02/07/24 17:47 Review of Systems 2 Review of Systems: Yes all other systems are reviewed and are negative [facility] Past Medical History Attestation statement: The following information was validated with the patient. Source: old records reviewed Medical History Hypertension Symptomatic anemia Brain lesion Iron deficiency anemia HLD (hyperlipidemia) Anemia Depression Type 2 diabetes mellitus Family History Family History Other Hypertension Social History Social History Household Members: Children Household Members Other:: Daughter Housing: Apartment Do you presently have visiting nurse or other home services: No Unable to assess alcohol history related to: Unable to respond Alcohol intake: former Patient Tobacco Use Status: Never used Tobacco Smoked in Last 30 Days: No e-Cigarette/Vaping Use: Never Used Second Hand Smoke Exposure: No Use of substances other than those prescribed or required for medical reasons: No Advance Directives: Yes Advance Directives on File: Yes Advance Directives Date on File: 06/19/21 Do you have a plan to hurt others: No Plan service: No Current occupational status: unemployed Physical Exam ED Vital Signs: Vital Signs - 24 hr 02/07/24 18:08 02/07/24 18:21 02/07/24 18:38 Temperature 98.3 F 99.6 F Pulse Rate 107 H 106 H Respiratory Rate 31 H 18 Blood Pressure 153/75 H 153/75 H 153/75 H Pulse Oximetry 88 L 87 L Oxygen Delivery Method Nasal Cannula Oxymask Oxygen Flow Rate 3 10 Fraction of Inspired Oxygen 02/07/24 18:53 02/07/24 18:54 02/07/24 19:17 Temperature 99.4 F Pulse Rate 110 H 104 H Respiratory Rate 30 H 16 13 Blood Pressure 167/63 H 146/70 H Pulse Oximetry 94 95 Oxygen Delivery Method BiPAP BiPAP Oxygen Flow Rate Fraction of Inspired Oxygen 40 02/07/24 19:28 02/07/24 20:14 02/07/24 20:27 Temperature Pulse Rate 100 Respiratory Rate 23 H 15 Blood Pressure 155/66 H 151/69 H Pulse Oximetry 93 Oxygen Delivery Method BiPAP Oxygen Flow Rate Fraction of Inspired Oxygen 40 02/07/24 21:02 02/07/24 22:11 Temperature 98.9 F Pulse Rate 103 H 99 Respiratory Rate 17 18 Blood Pressure 165/58 H 152/68 H Pulse Oximetry 94 92 Oxygen Delivery Method Oxymask Oxymask Oxygen Flow Rate 7 5 Fraction of Inspired Oxygen BMI result Body Mass Index 25.7 Appearance: Alert.?Oriented to person, place and time. No acute distress.?Normal affect. Eyes: Pupils equal, round and reactive to light.? ENT: Pharynx normal.?? Neck: Normal inspection.? Neck supple.?? CVS: Heart sounds normal. Tachycardic Pulses normal.?? Respiratory: Tachypneic, increased work of breathing, rales throughout on the right, rales to the left lower lobe, no wheezing Abdomen: Soft and non-tender. Normoactive bowel sounds. Skin: Skin warm and dry.? Appears? Extremities: 2+ bilateral lower extremity pitting edema.? No calf ttp? Neuro: Moves all extremities spontaneously. Sensation intact bilaterally.No focal neuro deficits. Ambulates with normal steady gait. Course Reevaluation(s) Reevaluation #1: Hypoxic down to 86% on 6 L via nasal cannula, placed on OxyMask, O2 saturation remaining at 88%, respiratory called, albuterol 7.5 mg, will place on BiPAP, CXR with bilateral large pleural effusion, Lasix ordered. Concern for possible pneumonia, given hypoxia tachycardia and tachypnea meeting SIRS criteria, given history of CHF, patient receive normal saline 150 mL Time: 18:20 Reevaluation #2: Review of records, had a CT chest July of 2022 moderate left pleural effusion dense consolidation in the left lower lobe and lingula, patchy ground-glass and sub solid nodular opacities throughout the left lung suspicious for multifocal pneumonia. Patient is able to be weaned off of BiPAP around 20:30, tolerating an OxyMask at 3 L with O2 saturation 95%, chest CT was able to be obtained revealing large bilateral effusions, consolidation of the lower lungs, right middle lobe, ground-glass infiltrates in both of the upper lobes. Spoke hospitalist, Dr. John Gómez, she was admitted to medicine service. ED attending Dr. Guadalupe performed bedside thoracentesis removing 1,200 mL, tolerated procedure well, post procedural x-ray without evidence of pneumothorax or complication. Medications Administered Discontinued Medications Generic Name Dose Route Start Last Admin Trade Name Freq PRN Reason Stop Dose Admin Acetaminophen 975 mg 02/07/24 17:51 02/07/24 18:22 Acetaminophen 325 Mg Tablet PO 02/07/24 17:52 975 mg ONCE ONE Administration Albuterol Sulfate 7.5 mg 02/07/24 18:37 02/07/24 18:58 Albuterol Sulfate (0.083%) 2.5 Mg/3 Ml Vial.Neb INHALE 02/07/24 18:38 7.5 mg ONCE ONE Administration Furosemide 40 mg 02/07/24 18:25 02/07/24 18:38 Furosemide 40 Mg/4 Ml Vial IVPUSH 02/07/24 18:26 40 mg STAT STA Administration Protocol Furosemide 40 mg 02/07/24 20:14 02/07/24 20:27 Furosemide 40 Mg/4 Ml Vial IVPUSH 02/07/24 20:15 40 mg ONCE ONE Administration Protocol Ceftriaxone Sodium 1 gm/ 50 mls @ 100 mls/hr 02/07/24 18:12 02/07/24 19:10 Sodium Chloride IV 02/07/24 18:41 Infused ONCE ONE Infusion Sodium Chloride 250 mls @ 150 mls/hr 02/07/24 18:45 02/07/24 19:50 Ns IVCONT 02/07/24 19:44 Not Given .Q1H40M JM Sodium Chloride 250 mls @ 150 mls/hr 02/07/24 19:30 02/07/24 20:10 Ns IVCONT 02/07/24 20:29 Infused .Q1H40M JM Infusion Ibuprofen 600 mg 02/07/24 17:51 02/07/24 18:22 Ibuprofen 600 Mg Tablet PO 02/07/24 17:52 600 mg ONCE ONE Administration Procedures Procedure Narrative Procedure Narrative: Right thoracentesis: Indication hypoxia pleural effusion Under aseptic condition after local infiltration of 1% lidocaine 2 cc in right mid scapular line in 8th intercostal space which was checked by percussion and ultrasound 7 Nepali needle was inserted and 1200 cc of straw-colored fluid during procedure successful patient felt much better saturating 99% will check the chest x-ray Medical Decision Making Medical Decision Making MDM Narrative: Patient is a 53 year old female with past medical history of type 2 diabetes, hypertension, hyperlipidemia, iron deficiency anemia, depression, postural hypotension, diastolic heart failure, EF 55-60% in September of 2023 presenting for evaluation of cough, shortness breath, chest pain, and myalgias as per HPI. She arrives tachypneic with increased work of breathing, significant rales to the right side and left lower lobe, concerning for CHF exacerbation, has 2+ pitting edema bilaterally to the lower extremities. Will obtain CBC to evaluate for leukocytosis/ anemia, CMP and lipase to evaluate for abnormal electrolytes /abnormal renal function/ abnormal hepatic/biliary function, EKG and troponin to evaluate for ischemia/ACS. Chest x-ray to evaluate for consolidation/ infiltrate/ mass/ pulmonary congestion and Urinalysis. Differential Diagnosis Differential Diagnoses: The differential diagnosis associated with the presentation includes (ACS, CHF exacerbation, viral syndrome, pneumonia,) Admission/Observation Consideration of admission/observation: Escalation of care including admission/observation considered Lab Data MDM Lab Attestation statement: I reviewed the patient's lab results. 02/07/24 18:39 02/07/24 18:39 Labs: Lab Results 02/07/24 02/07/24 Range/Units 18:39 18:42 WBC 13.8 H (4.8-10.8) X10*3/uL RBC 2.96 L (4.20-5.50) X10*6/uL Hgb 8.5 L (12.0-16.0) g/dl Hct 25.5 L (37.0-47.0) % MCV 86.1 (80.0-98.0) fL MCH 28.7 (27.0-33.0) pg MCHC 33.3 (31.0-35.0) g/dl RDW 14.9 (11.0-16.0) % Plt Count 294 D (160-400) X10*3/uL MPV 8.5 L (9.4-12.3) fL Immature Gran % (Auto) 0.5 H (0.0-0.4) % Neut % (Auto) 86.0 H (45-73) % Lymph % (Auto) 7.8 L (20-40) % Freestone % (Auto) 3.6 (2-11) % Eos % (Auto) 1.6 (0-4) % Baso % (Auto) 0.5 (0-2) % Lymph # (Auto) 1.1 L (1.2-4.9) X10*3/uL [place] # (Auto) 0.5 (0.1-1.2) X10*3/uL Eos # (Auto) 0.2 (0.0-0.4) X10*3/uL Baso # (Auto) 0.1 (0.0-0.2) X10*3/uL Abs Immat Gran (auto) 0.07 H (0.00-0.03) X10*3/uL Absolute Neuts (auto) 11.8 H (2.0-8.3) x10*3/uL Absolute Nucleated RBC 0.000 (0.0-0.012) X10*3/uL Nucleated RBC % (auto) 0.0 (0.0-0.2) /100WBC PT 10.8 L (10.9-12.4) SEC INR 0.9 (0.9-1.1) VBG pH 7.37 (7.32-7.43) VBG pCO2 49 mmHg VBG pO2 49 mmHg VBG HCO3 28 H (22-26) mmol/L VBG O2 Saturation 73.0 % VBG Base Excess 2.8 mmol/L Sodium 131 L (135-145) mmol/L Potassium 4.5 D (3.3-5.1) mmol/L Chloride 99 (96-108) mmol/L Carbon Dioxide 25 (22-29) mmol/L Anion Gap 12 (12-20) BUN 20 H (9-16) mg/dL Creatinine 1.61 H (0.5-1.4) mg/dL Estim Creat Clear Calc 37.8 Estimated GFR 33 Random Glucose 148 H (60-115) mg/dL Lactic Acid 1.2 (0.5-2.0) mmol/L Calcium 8.9 D (8.4-10.2) mg/dL Magnesium 2.6 (1.6-2.6) mg/dL Total Bilirubin 0.3 (0.0-1.0) mg/dL AST 20 (5-31) U/L ALT 12 (0-31) U/L Alkaline Phosphatase 97 (39-117) U/L Troponin I High Sens 8.2 (<3.5-17.0) ng/L B-Natriuretic Peptide 334 H (<100) pg/mL Total Protein 7.8 (6.5-8.0) g/dL Albumin 3.3 L (3.5-5.0) g/dL Influenza Type A (PCR) NEGATIVE (Negative) Influenza Type B (PCR) NEGATIVE (Negative) RSV RNA Qual (PCR) NEGATIVE (Negative) SARS-CoV-2 RNA (RT-PCR) NEGATIVE (Negative) Radiology Impression Discussion of test interpretation with radiology: I have reviewed the radiologist's reading. Radiologist Impression: XR/XR chest 1V IMPRESSION: Interval worsening of large bilateral pleural effusions with bibasilar atelectasis CT/CT chest wo IV con IMPRESSION: 1. Large bilateral pleural effusions with collapse/consolidation of the lower lobes as well as the right middle lobe and lingula. 2. Groundglass infiltrates in both upper lobes. 3. Mild cardiomegaly with tiny pericardial effusion. 4. Mild anasarca. Independent Historian Clinical information obtained from an independent historian. History obtained from or confirmed by: EMS External Record Review External record reviewed: Inpatient record and Outpatient record Critical Care Time Critical Care Time Critical Care Time: Yes Total Critical Care Time: 65 Attestation: I personally attest to this critical care time spent taking care of the patient exclusive of all other billable procedures was approximately 65 minutes including initial evaluation of patient, ordering tests, x-ray interpretation, CT interpretation, thoracentesis, acute hypoxic respiratory failure requiring BiPAP, CHF exacerbation EKG interpretation, medical consultation, documentation, re-evaluation. Discharge Plan Discharge Clinical Impression: Acute hypoxic respiratory failure, Acute on chronic heart failure with preserved ejection fraction (HFpEF), Bilateral pleural effusion Patient Disposition: Admitted As Inpatient
[2024-02-07] MEDS: Ibuprofen 600 MG TABLET PO (18:22)
[2024-02-07] MEDS: Acetaminophen 325 MG TABLET 975 MG PO (18:22)
[2024-02-07] MEDS: 0.9 % Sodium Chloride 250 ML 150 ML IVCONT (18:25)
[2024-02-07] MEDS: Furosemide 40 MG/4 ML VIAL IVPUSH ×2 (18:38→20:27)
[2024-02-07] MEDS: cefTRIAXone sodium 1 GM in 0.9 % Sodium Chloride 50 ML IV (18:38)
--- NOTE | 2024-02-07 18:40 | PC.NURSE ---
Blood cultures obtained prior to start of abt, d/t scanning issues blood cultures saved in computer after abt scanned
[2024-02-07 18:43] LABS: MANUAL DIFF FLAG NO
[2024-02-07 18:44] LABS: Venous Blood Gas Refer to POC result
[2024-02-07 18:45] LABS: Basophils Absolute Auto 0.1 X10*3/uL (0.0-0.2); Basophils Percent Auto 0.5 % (0-2); Eosinophils Absolute Auto 0.2 X10*3/uL (0.0-0.4); Eosinophils Percent Auto 1.6 % (0-4); Hematocrit 25.5 % (37.0-47.0); Hemoglobin 8.5 g/dl (12.0-16.0); Imm Gran Abs Auto 0.07 X10*3/uL (0.00-0.03); Imm Gran Pct Auto 0.5 % (0.0-0.4); Lymphocytes Absolute Auto 1.1 X10*3/uL (1.2-4.9); Lymphocytes Percent Auto 7.8 % (20-40); Mean Corpuscular HGB Conc 33.3 g/dl (31.0-35.0); Mean Corpuscular Hemoglobin 28.7 pg (27.0-33.0); Mean Corpuscular Volume 86.1 fL (80.0-98.0); Mean Platelet Volume 8.5 fL (9.4-12.3); Monocytes Absolute Auto 0.5 X10*3/uL (0.1-1.2); Monocytes Percent Auto 3.6 % (2-11); Neutrophils Absolute Auto 11.8 x10*3/uL (2.0-8.3); Platelet Count 294 X10*3/uL (160-400); Red Blood Count 2.96 X10*6/uL (4.20-5.50); Red Cell Distribution Width 14.9 % (11.0-16.0); White Blood Count 13.8 X10*3/uL (4.8-10.8)
[2024-02-07 18:45] LABS: VBG Base Excess 2.8 mmol/L; VBG HCO3 28 mmol/L (22-26); VBG pCO2 49 mmHg; VBG pH 7.37 (7.32-7.43); VBG pO2 49 mmHg
--- NOTE | 2024-02-07 18:48 | PC.NURSE ---
Bipap /6 @ 40%. Patient tolerating well
[2024-02-07 18:54] LABS: INTERNATIONAL NORM RATIO 0.9 (0.9-1.1); Prothrombin Time 10.8 SEC (10.9-12.4)
[2024-02-07 18:58] LABS: Lactic Acid 1.2 mmol/L (0.5-2.0)
[2024-02-07] MEDS: Albuterol Sulfate (0.083%) 2.5 MG/3 ML VIAL.NEB 7.5 MG INHALE (18:58)
[2024-02-07 19:02] LABS: Alanine Aminotransferase 12 U/L (0-31); Albumin Level 3.3 g/dL (3.5-5.0); Alkaline Phosphatase 97 U/L (39-117); Anion Gap 12 (12-20); Aspartate Amino Transferase 20 U/L (5-31); Bilirubin Total 0.3 mg/dL (0.0-1.0); Blood Urea Nitrogen 20 mg/dL (9-16); Calcium 8.9 mg/dL (8.4-10.2); Carbon Dioxide 25 mmol/L (22-29); Chloride 99 mmol/L (96-108); Creatinine Clr Calc Pharmacy 37.8; Estimated Glomerular Filt Rate 33; Glucose Random 148 mg/dL (60-115); Magnesium 2.6 mg/dL (1.6-2.6); Potassium 4.5 mmol/L (3.3-5.1); Sodium 131 mmol/L (135-145); Total Protein 7.8 g/dL (6.5-8.0)
--- NOTE | 2024-02-07 19:08 | PC.NURSE ---
sepsis fluids 150mls started at 1825. Per provider d/t possible chf give fluids slowly. d/t charting issues unable to scan 150ml dose of fluids.
[2024-02-07 19:09] LABS: Troponin-I High Sensitivity 8.2 ng/L (<3.5-17.0)
[2024-02-07 19:21] LABS: Influenza A PCR NEGATIVE (Negative); Influenza B PCR NEGATIVE (Negative); Resp Syncy Virus RNA Qual PCR NEGATIVE (Negative); SARS COV2 PCR INHOUSE NEGATIVE (Negative)
--- NOTE | 2024-02-07 19:44 | PC.NURSE ---
report received and care assumed at 1900. Pt only had the 100ml bag up and running to gravity, but noticeably slow (as per the DEAL ARCHITECT's direction). RN consulted pharmacy as previous RN has been unable to scan the pt's 150ml NS fluid administration and per pharmacy it was related to the bag volume being ordered as 1000 but only for staff to give 150ml. Pharmacy was able to fix this. Once the issue was resolved this RN consulted DEAL ARCHITECT Piter to ask how fast she wanted the fluids to be administered and she said over the hour. This RN hung/connected the patient's 50ml bag (which together with the already infusing 100ml bag makes the total 150mls). VSS are cycling, pt is stable and without issues/concerns at this time. BiPap remains in place with settings of 12/6 @ 40% and she is tolerating this well. Purewick placed for comfort, to decrease increased O2 demand with transfers, and I&O monitoring. She has the call sampson in place
[2024-02-07 19:47] LABS: B Type Natriuretic Peptide 334 pg/mL (<100)
--- NOTE | 2024-02-07 21:00 | PC.NURSE ---
CT to bedside as they are ready for the patient and inquired as to whether or not respiratory needed to be called to assist as the pt was still in BiPap. RN consulted MAXIMO Dumas to determine her comfortability and/or preference. Per MAXIMO Dumas, pt to be trial on an oxymask while laying supine in her room, before the transition to CT as we want to ensure she can tolerate the position and her O2 maintain. Pt tolerating well. O2 sat of 94% on 7LPM via oxymask while supine. CT to be made aware as patient maintaining
[2024-02-08] VITALS (13 sets, daily range): BP systolic 120–157; BP diastolic 57–78; PULSE 80–114; RESP 13–28; TEMP 36.8–37.8; O2SAT 80–100
--- NOTE | 2024-02-08 01:03 | P.HPHOSP_ITS ---
History of Present Illness Date of Service: 02/08/24 Attending physician on admission: Mickie Gómez Chief Complaint: Shortness of breaths Queta Loya is a 53 years old woman with past medical history significant for HFpEF, type 2 diabetes mellitus, COPD -home O2 2L/min and postural hypotension presents to the emergency department complaining of worsening shortness on breath since morning associated with productive cough and dizziness. She does have worsening swelling to the lower extremities. Patient is a very poor historian and seems to have some degree of confusion. She did not report chest pain, palpitations, fevers chills. She did not report any acute gastrointestinal or genitourinary symptom. Patient was hospitalized on January 22 with diagnosis of hypertensive urgency. In the ED, she was found to have tachypnea, low O2 sats while receiving supplemental oxygen 10 liters/minutes via OxyMask. She was placed on BiPAP for several hours. Her blood workup is remarkable for leukocytosis of 13.8, hemoglobin of 8.5 and normal platelets. Venous blood gas showed no respiratory acidosis. There is mild hyponatremia, creatinine is 1.61 and BUN 20. LFTs are normal and BNP is 334. Viral testing for COVID-19, influenza and RSV is negative. Chest CTA showed large bilateral pleural effusion with collapse/consolidation of lower lobes as well as right middle lobe and lingula, ground-glass infiltrates in both upper lobes, cardiomegaly with tiny pleural effusion and mild anasarca. ECG showed accelerated junctional rhythm. ED tx: Acetaminophen 975 mg p.o., ibuprofen 600 mg p.o., ceftriaxone 1 g IV, Lasix 80 mg IV, albuterol 7.5 mg inhaled, Review of Systems 2 Review of Systems: Yes Unobtainable due to mental condition and Unobtainable due to mental status [facility] Medical History Hypertension Symptomatic anemia Brain lesion Iron deficiency anemia HLD (hyperlipidemia) Anemia Depression Type 2 diabetes mellitus Family History Other Hypertension Social History Household Members: Children Household Members Other:: Daughter Housing: Apartment Do you presently have visiting nurse or other home services: No Unable to assess alcohol history related to: Unable to respond Alcohol intake: former Patient Tobacco Use Status: Never used Tobacco Smoked in Last 30 Days: No e-Cigarette/Vaping Use: Never Used Second Hand Smoke Exposure: No Use of substances other than those prescribed or required for medical reasons: No Advance Directives: Yes Advance Directives on File: Yes Advance Directives Date on File: 06/19/21 Do you have a plan to hurt others: No Plan service: No Current occupational status: unemployed Meds Allergies Allergy/AdvReac Type Severity Reaction Status Date / Time shrimp Allergy Swelling Verified 02/07/24 17:47 Active Medications: Current Medications Acetaminophen (Acetaminophen 325 Mg Tablet) 975 mg PO Q6H PRN PRN Reason: Pain, Mild (Pain Scale 1-3), fever or headache Furosemide (Furosemide 100 Mg/10 Ml Vial) 60 mg IVPUSH Q12H JM; Protocol Magnesium Hydroxide (Milk Of Magnesia 30 Ml Oral.Susp) 30 ml PO DAILY PRN PRN Reason: Constipation Ondansetron HCl (Ondansetron Hcl 4 Mg/2 Ml Vial) 4 mg IVPUSH Q8H PRN PRN Reason: Nausea and Vomiting Sodium Chloride (0.9 % Sodium Chloride Flush 3 Ml Syringe) 3 ml IVFLUSH QSHIFT [facility] Home Medications ?Medication ?Instructions ?Recorded ?Confirmed ?Last Taken ?Type aspirin 81 mg tablet,delayed 1 tab PO DAILY@0900 07/21/22 01/13/24 06/25/23 History release insulin lispro 100 unit/mL See Protocol subcut TIDAC 07/21/22 01/13/24 09/15/23 History subcutaneous pen mirtazapine 15 mg tablet 15 mg PO BEDTIME 09/16/23 01/13/24 Unknown History rosuvastatin 40 mg tablet 40 mg PO QAM 01/13/24 01/13/24 Unknown History Physical Exam 2 Vital Signs and Narrative: Vital Signs: Last Vital Signs Temp 98.9 F 02/07/24 21:02 Pulse 99 02/07/24 22:11 Resp 18 02/07/24 22:11 BP 152/68 H 02/07/24 22:11 Pulse Ox 92 02/07/24 22:11 O2 Del Method Oxymask 02/07/24 22:11 O2 Flow Rate 5 02/07/24 22:11 FiO2 40 02/07/24 20:14 BMI result Body Mass Index 25.7 Constitutional - Awake and Alert. Looks confused. On OxyMask 3L/min. HEENT - PERRL, EOMI Heart - S1S2, RRR, no murmurs. Lungs - Normal lung expansion, Normal respiratory effort, No respiratory distress. Tachypnea. Decreased breath sounds bilateral. No crackles. No wheezing. Abdomen - NT / ND; +BS; No rebound or guarding Extremities - Bilateral pitting edema to the lower extremities. Musculoskeletal - Normal inspection, normal ROM Skin - Warm/Dry Neurological - Alert & oriented x2 (unable to say current year). No speech difficulty. Psychological - Depressed affect Results Labs 02/07/24 18:39 02/07/24 18:39 Labs: Laboratory Results - last 24 hr 02/07/24 02/07/24 18:39 18:42 MCV 86.1 MCH 28.7 MCHC 33.3 RDW 14.9 Plt Count 294 D MPV 8.5 L Immature Gran % (Auto) 0.5 H Neut % (Auto) 86.0 H Lymph % (Auto) 7.8 L Sebastian % (Auto) 3.6 Eos % (Auto) 1.6 Baso % (Auto) 0.5 Lymph # (Auto) 1.1 L Sebastian # (Auto) 0.5 Eos # (Auto) 0.2 Baso # (Auto) 0.1 Abs Immat Gran (auto) 0.07 H Absolute Neuts (auto) 11.8 H Absolute Nucleated RBC 0.000 Nucleated RBC % (auto) 0.0 PT 10.8 L INR 0.9 VBG pH 7.37 VBG pCO2 49 VBG pO2 49 VBG HCO3 28 H VBG O2 Saturation 73.0 VBG Base Excess 2.8 Anion Gap 12 Estim Creat Clear Calc 37.8 Estimated GFR 33 Random Glucose 148 H Lactic Acid 1.2 Calcium 8.9 D Magnesium 2.6 Total Bilirubin 0.3 AST 20 ALT 12 Alkaline Phosphatase 97 Troponin I High Sens 8.2 B-Natriuretic Peptide 334 H Total Protein 7.8 Albumin 3.3 L Influenza Type A (PCR) NEGATIVE Influenza Type B (PCR) NEGATIVE RSV RNA Qual (PCR) NEGATIVE SARS-CoV-2 RNA (RT-PCR) NEGATIVE Imaging Radiologist's Impressions: Impressions Chest X-Ray 02/07/24 17:51 IMPRESSION: Interval worsening of large bilateral pleural effusions with bibasilar atelectasis Electronically signed by: Tim Wolff MD 02/07/2024 08:01 PM EDT RP Chest CT 02/07/24 20:14 IMPRESSION: 1. Large bilateral pleural effusions with collapse/consolidation of the lower lobes as well as the right middle lobe and lingula. 2. Groundglass infiltrates in both upper lobes. 3. Mild cardiomegaly with tiny pericardial effusion. 4. Mild anasarca. Fleischner guidelines were followed. Electronically signed by: Ric Pat MD 02/07/2024 10:59 PM EDT RP Assessment and Plan (1) Acute hypoxic respiratory failure: Status: Acute (2) Acute on chronic diastolic (congestive) heart failure: Status: Acute (3) Bilateral pleural effusion: Status: Acute Plan Queta Loya is a 53 y/o woman w/ PMHx significant for COPD -home O2 2L/min admitted with: * Acute on chronic hypoxic respiratory failure, multifactorial: Acute on chronic diastolic CHF, large bilateral pleural effusions, multilevel lung pneumonia and tiny pericardial effusion. Admit to hospitalist service. Supplemental O2 to keep O2 sats > 90%. Continue Lasix 60 mg IV twice daily. Continue empiric IV antibiotic therapy with Zosyn. Check TTE. s/p unilateral thoracentesis by ED -1,200 ml (clear yellow fluids removed). Thoracic surgery consult. * Acute kidney injury, multifactorial: Acute CHF, diuretics. Avoid nephrotoxic agents. Continue to monitor renal function. * Hyponatremia, likely secondary to fluid overload. Continue Lasix. Continue to monitor Na+ level. * Essential hypertension. Continue amlodipine. Losartan on hold due to elevated creatinine. * Type 2 diabetes mellitus. Blood glucose checks every 6 hours. Insulin sliding scale while NPO. * Hyperlipidemia. Continue statin. * Chronic anemia. Hemoglobin at baseline. Continue to monitor. DVT prophylaxis: Lovenox Code status: Full Patient will need hospitalization for at least 2 midnights for acute on chronic hypoxic respiratory failure treatment with supplemental oxygen, IV antibiotic therapy and diuresis. Patient will also need intrathoracic procedure. Quality Stroke Does the patient have a stroke diagnosis?: No VTE Prior VTE?: No VTE Risk Level:: Medical - moderate - high VTE Device Contraindication: Treatment Not Indicated VTE Drug Contraindication: N/A - Med Ordered
[2024-02-08 02:15] LABS: MN% 77.9 %; PMN% 22.1 %; WBC Pleural Fluid 0.162 X10*3/uL
[2024-02-08 02:19] LABS: RBC Pleural Fluid < 0.002 X10*6/uL
[2024-02-08 03:58] LABS: BF Shift QC OK YES; Lymphocytes Pleural Fluid 59 %; Monocytes Pleural Fluid 18 %; Neutrophils Pleural Fluid 23 %
[2024-02-08 04:37] LABS: Venous Blood Gas Refer to POC result
[2024-02-08 04:37] LABS: VBG Base Excess 6.5 mmol/L; VBG HCO3 30 mmol/L (22-26); VBG pCO2 39 mmHg; VBG pH 7.49 (7.32-7.43); VBG pO2 163 mmHg
[2024-02-08] MEDS: Piperacillin Sodium/Tazobactam 3.375 GM in 0.9 % Sodium Chloride 50 ML IV ×3 (04:48→17:32)
--- NOTE | 2024-02-08 04:55 | PC.NURSE ---
at approximately 0430 this morning, the pt was noted to desat down to 86% on her 4lpm via NC that she has been on/receiving, observed to be laying in the bed on her right side with intermittent moaning noted. The pt was awake and alert, felt warm to the touch and endorsed being cold. This RN began to titrate the pt's LPM up via oxymask to try to assist with her hypoxia without much affect even up to 7lpm. RN consulted hospitalist to make her aware and request that she come and reassess the patient during which time the patient was briefly placed on a nonrebreather mask. The pt offered no complaints at that time related to shortness of breath or chest pain, only reports feeling weak and dizzy to the hospitalist once at bedside. A repeat chest x ray was obtained to ensure there wasn't a collapsed lung or re-accumulation of fluid s/p thoracentesis. While hospitalist at bedside, pt noted to go up to the mid to high 90s on the nonrebreather at 15lpm. Hospitalist advised that we titrate the pt's O2 and return her back to an oxymask as she was not in any acute/apparent distress. According to the hospitalist, she is okay with the patient remaining between 90-92%. Pt's parks catheter continues to drain clear yellow urine and she is afebrile according to the rectal temperature obtained. Pt currently at 6lpm via oxymask with an O2 sat of 91%
[2024-02-08 05:14] LABS: MANUAL DIFF FLAG NO
[2024-02-08 05:17] LABS: Basophils Percent Auto 0.2 % (0-2); Eosinophils Percent Auto 0.4 % (0-4); Hematocrit 23.8 % (37.0-47.0); Hemoglobin 7.9 g/dl (12.0-16.0); Imm Gran Abs Auto 0.05 X10*3/uL (0.00-0.03); Imm Gran Pct Auto 0.5 % (0.0-0.4); Lymphocytes Absolute Auto 0.9 X10*3/uL (1.2-4.9); Lymphocytes Percent Auto 8.8 % (20-40); Mean Corpuscular HGB Conc 33.2 g/dl (31.0-35.0); Mean Corpuscular Hemoglobin 28.8 pg (27.0-33.0); Mean Corpuscular Volume 86.9 fL (80.0-98.0); Mean Platelet Volume 8.2 fL (9.4-12.3); Monocytes Absolute Auto 0.3 X10*3/uL (0.1-1.2); Monocytes Percent Auto 3.3 % (2-11); Neutrophils Absolute Auto 8.8 x10*3/uL (2.0-8.3); Neutrophils Percent Auto 86.8 % (45-73); Platelet Count 220 X10*3/uL (160-400); Red Blood Count 2.74 X10*6/uL (4.20-5.50); Red Cell Distribution Width 14.9 % (11.0-16.0); White Blood Count 10.1 X10*3/uL (4.8-10.8)
[2024-02-08 05:31] LABS: Anion Gap 11 (12-20); Blood Urea Nitrogen 23 mg/dL (9-16); Calcium 8.6 mg/dL (8.4-10.2); Carbon Dioxide 26 mmol/L (22-29); Chloride 100 mmol/L (96-108); Creatinine Clr Calc Pharmacy 36.9; Estimated Glomerular Filt Rate 32; Glucose Random 161 mg/dL (60-115); Magnesium 2.3 mg/dL (1.6-2.6); Potassium 4.4 mmol/L (3.3-5.1); Sodium 133 mmol/L (135-145)
[2024-02-08 05:47] LABS: Glucose, Whole Blood 138 mg/dL (60-115)
[2024-02-08] MEDS: Furosemide 100 MG/10 ML VIAL 60 MG IVPUSH ×2 (06:47→17:38)
--- NOTE | 2024-02-08 07:26 | PC.NURSE ---
Care of Pt assumed at change of shift. NIX (Permethrin) delivered from pharmacy. At this time, unable to administer treatment d/t ED inability to adequately wash Pts hair to deliver effective treatment. Additionally, Pt unable to meet physical demands of treatment delivery at this time. Medication will remain with Pt chart and can be administered when more appropriate means of delivery is available.
--- NOTE | 2024-02-08 08:30 | PHA.MEDREC ---
Addendum entered by Leo Whipple 02/08/24 08:50: reviewed Addendum entered by Dixon Dean 02/08/24 08:34: Per son Bin, patient only on amlodipine, aspirin, potassium, gabapentin, and insulin (lantus) Original Note: Pharmacy Consult ? Medication Reconciliation Pharmacy has completed the medication reconciliation. Pt recently discharged on 01/25. Utilized discharge packet and what patient could confirm to confirm med rec. Patient poor historian.
--- NOTE | 2024-02-08 08:34 | MHC.CM.PN ---
Patient lives in an apartment with her Daughter ,uses a walker to assist with mobility, and is on 2L home O2. Home/resume home O2 and ? of new HVNA (had them in the past)is the tentative plan; CM has initiated and will follow for dc planning. Patient's PCP is from [facility] and she will likely require BLS transport to home.
[2024-02-08] MEDS: Permethrin 1 % Lotion 59 ML BTL 1 APPL TOPICAL (10:35)
[2024-02-08] MEDS: amLODIPine Besylate 5 MG TABLET PO (10:35)
[2024-02-08] MEDS: Heparin Sodium,Porcine 5,000 UNIT/ML VIAL 5000 UNIT SUBCUT (10:35)
[2024-02-08] MEDS: Aspirin Enteric Coated 81 MG TABLET.DR PO (10:35)
[2024-02-08] MEDS: 0.9 % Sodium Chloride Flush 3 ML SYRINGE IVFLUSH (10:36)
--- NOTE | 2024-02-08 11:14 | PM.EVENT ---
Event Note Date of Service: 02/08/24 Event Note: The patient seen and evaluated Looks distyressed with SOB and dyspnea requiring increased O2 supplement. BiPAP support for now Continue IV lasix Iv Zosyn PEnding cultures and weaning down O2 Time Spent With Patient Time: Total time managing care of this patient today ____ minutes.
--- NOTE | 2024-02-08 11:16 | PC.RT ---
RT called to bedsdie. Pt in respiratory distress, RR >30, SATs 84% on 15L oxymask. Lung sounds wheezy and rhonchi bilateral. MD called to bedside. RT placed pt on bipap and gave albuterol tx. Pt has improvement in WOB on bipap. Will continue to monitor.
[2024-02-08] MEDS: Albuterol/Iprat 2.5/0.5MG 3 ML AMPUL.NEB INHALE (11:18)
[2024-02-08 12:00] LABS: Glucose, Whole Blood 148 mg/dL (60-115)
[2024-02-08] MEDS: vancomycin HCL 1,000 MG, vancomycin HCL 750 MG in 0.9 % Sodium Chloride 500 ML 267.5 MG IV (15:04)
[2024-02-08 16:08] LABS: Glucose, Whole Blood 115 mg/dL (60-115)
--- NOTE | 2024-02-08 16:36 | HO.THORCON_ITS ---
History of Present Illness Consult details Consult date: 02/08/24 Narrative: Patient is a 53-year-old female minimally communicative who presented with bilateral pleural effusions and significant respiratory distress. Patient has a very intracranial and complex past medical history. She is status post right thoracentesis with significant pleural effusion drained. She also has moderately sized left pleural effusion. Chart was reviewed and patient evaluated PMFSH Past Medical History Medical History Hypertension Symptomatic anemia Brain lesion Iron deficiency anemia HLD (hyperlipidemia) Anemia Depression Type 2 diabetes mellitus Family History Family History Other Hypertension Social History Social History Household Members: Children Household Members Other:: Daughter Housing: Apartment Do you presently have visiting nurse or other home services: No Unable to assess alcohol history related to: Unable to respond Alcohol intake: former Patient Tobacco Use Status: Never used Tobacco Smoked in Last 30 Days: No e-Cigarette/Vaping Use: Never Used Second Hand Smoke Exposure: No Use of substances other than those prescribed or required for medical reasons: No Advance Directives: Yes Advance Directives on File: Yes Advance Directives Date on File: 06/19/21 Do you have a plan to hurt others: No Plan service: No Current occupational status: unemployed Meds Allergies Allergy/AdvReac Type Severity Reaction Status Date / Time shrimp Allergy Swelling Verified 02/07/24 17:47 Active Medications: Current Medications Acetaminophen (Acetaminophen 325 Mg Tablet) 975 mg PO Q6H PRN PRN Reason: Pain, Mild (Pain Scale 1-3), fever or headache Albuterol/Ipratropium (Albuterol/Iprat 2.5/0.5mg 3 Ml Ampul.Neb) 3 ml INHALE Q4H PRN PRN Reason: wheezing Last Admin: 02/08/24 11:18 Dose: 3 ml Amlodipine Besylate (Amlodipine Besylate 5 Mg Tablet) 5 mg PO DAILY [facility]; Protocol Last Admin: 02/08/24 10:35 Dose: 5 mg Aspirin (Aspirin Enteric Coated 81 Mg Tablet.) 81 mg PO DAILY@0900 [facility] Last Admin: 02/08/24 10:35 Dose: 81 mg Furosemide (Furosemide 100 Mg/10 Ml Vial) 60 mg IVPUSH Q12H [facility]; Protocol Last Admin: 02/08/24 06:47 Dose: 60 mg Gabapentin (Gabapentin 100 Mg Capsule) 100 mg PO BEDTIME JM Glucose (Glucose Gel 15 Gm Gel..Gram.) 15 gm PO Q15M PRN; Protocol PRN Reason: per Hypoglycemia Standing Ord. Dextrose (D10) 250 mls @ 750 mls/hr IV Q15M PRN; Protocol PRN Reason: per Hypoglycemia Standing Ord. Piperacillin Sod/Tazobactam (Sod 3.375 gm/ Sodium Chloride) 50 mls @ 100 mls/hr IV Q6H [facility] Last Infusion: 02/08/24 12:53 Dose: Infused Vancomycin HCl 1,000 mg/ (Sodium Chloride) 270 mls @ 270 mls/hr IV Q12H [facility] Insulin Glargine (Insulin Glargine,Hum.Rec.Anlog 100 Unit/Ml 10 Ml Vial) 5 unit SUBCUT BEDTIME [facility] Insulin Human Lispro (Insulin Lispro 100 Unit/Ml 3 Ml Vial) 0.1 - 10 unit SUBCUT Q6H [facility]; Protocol Last Admin: 02/08/24 12:59 Dose: Not Given Magnesium Hydroxide (Milk Of Magnesia 30 Ml Oral.Susp) 30 ml PO DAILY PRN PRN Reason: Constipation Ondansetron HCl (Ondansetron Hcl 4 Mg/2 Ml Vial) 4 mg IVPUSH Q8H PRN PRN Reason: Nausea and Vomiting Pharmacy Consult (Consult Rx Vancomycin Dosing) 1 each MISCELLANE DAILY PRN PRN Reason: Consult order Sodium Chloride (0.9 % Sodium Chloride Flush 3 Ml Syringe) 3 ml IVFLUSH QSHIFT [facility] Last Admin: 02/08/24 10:36 Dose: 3 ml Home Medications ?Medication ?Instructions ?Recorded ?Confirmed ?Last Taken ?Type aspirin 81 mg tablet,delayed 1 tab PO DAILY@0900 07/21/22 02/08/24 02/07/24 History release Physical Exam 2 Vital Signs: Vital Signs: Last Vital Signs Temp 100.0 F 02/08/24 16:00 Pulse 102 H 02/08/24 16:00 Resp 20 02/08/24 16:00 BP 157/68 H 02/08/24 16:00 Pulse Ox 98 02/08/24 16:00 O2 Del Method BiPAP 02/08/24 16:00 O2 Flow Rate 6 02/08/24 09:05 FiO2 40 02/07/24 20:14 BMI result Body Mass Index 25.7 Const: Other: Patient currently somewhat confused on BiPAP. Minimally communicative Chest: Other: Chest x-ray findings demonstrated status post right thoracentesis patchy infiltrate in the right and moderate left pleural effusion persists. Results Labs 02/08/24 05:08 02/08/24 05:08 Labs: Abnormal lab results 02/07/24 02/07/24 02/08/24 Range/Units 18:39 18:42 04:35 WBC 13.8 H (4.8-10.8) X10*3/uL RBC 2.96 L (4.20-5.50) X10*6/uL Hgb 8.5 L (12.0-16.0) g/dl Hct 25.5 L (37.0-47.0) % MPV 8.5 L (9.4-12.3) fL Immature Gran % (Auto) 0.5 H (0.0-0.4) % Neut % (Auto) 86.0 H (45-73) % Lymph % (Auto) 7.8 L (20-40) % Lymph # (Auto) 1.1 L (1.2-4.9) X10*3/uL Abs Immat Gran (auto) 0.07 H (0.00-0.03) X10*3/uL Absolute Neuts (auto) 11.8 H (2.0-8.3) x10*3/uL PT 10.8 L (10.9-12.4) SEC VBG pH 7.49 H (7.32-7.43) VBG HCO3 28 H 30 H (22-26) mmol/L Sodium 131 L (135-145) mmol/L Anion Gap (12-20) BUN 20 H (9-16) mg/dL Creatinine 1.61 H (0.5-1.4) mg/dL POC Glucose (60-115) mg/dL Random Glucose 148 H (60-115) mg/dL B-Natriuretic Peptide 334 H (<100) pg/mL Albumin 3.3 L (3.5-5.0) g/dL 02/08/24 02/08/2424 Range/Units 05:08 05:43 11:39 WBC (4.8-10.8) X10*3/uL RBC 2.74 L (4.20-5.50) X10*6/uL Hgb 7.9 L (12.0-16.0) g/dl Hct 23.8 L (37.0-47.0) % MPV 8.2 L (9.4-12.3) fL Immature Gran % (Auto) 0.5 H (0.0-0.4) % Neut % (Auto) 86.8 H (45-73) % Lymph % (Auto) 8.8 L (20-40) % Lymph # (Auto) 0.9 L (1.2-4.9) X10*3/uL Abs Immat Gran (auto) 0.05 H (0.00-0.03) X10*3/uL Absolute Neuts (auto) 8.8 H (2.0-8.3) x10*3/uL PT (10.9-12.4) SEC VBG pH (7.32-7.43) VBG HCO3 (22-26) mmol/L Sodium 133 L (135-145) mmol/L Anion Gap 11 L (12-20) BUN 23 H (9-16) mg/dL Creatinine 1.65 H (0.5-1.4) mg/dL POC Glucose 138 H 148 H (60-115) mg/dL Random Glucose 161 H (60-115) mg/dL B-Natriuretic Peptide (<100) pg/mL Albumin (3.5-5.0) g/dL Short CBC 02/07/24 02/08/24 Range/Units 18:39 05:08 WBC 13.8 H 10.1 (4.8-10.8) X10*3/uL Hgb 8.5 L 7.9 L (12.0-16.0) g/dl Hct 25.5 L 23.8 L (37.0-47.0) % Plt Count 294 D 220 D (160-400) X10*3/uL BMP 02/07/24 02/08/24 18:39 05:08 Sodium 131 L 133 L Potassium 4.5 D 4.4 Chloride 99 100 Carbon Dioxide 25 26 BUN 20 H 23 H Creatinine 1.61 H 1.65 H Calcium 8.9 D 8.6 Liver Function 02/07/24 Range/Units 18:39 Total Bilirubin 0.3 (0.0-1.0) mg/dL AST 20 (5-31) U/L ALT 12 (0-31) U/L Alkaline Phosphatase 97 (39-117) U/L Albumin 3.3 L (3.5-5.0) g/dL All other labs normal. Assessment and Plan (1) Bilateral pleural effusion: Status: Acute (2) Acute on chronic diastolic (congestive) heart failure: Status: Acute (3) Acute hypoxic respiratory failure: Status: Acute (4) Acute congestive heart failure: Status: Acute (5) Hypoxia: Status: Acute Plan Patient was status post right thoracentesis. Would consult IR for left thoracentesis as well. This maneuver may improve patient's respiratory status. At present no need for tube thoracostomy. If can wean BiPAP, encourage incentive spirometry, out of bed, respiratory therapy Procedures Date of Service Date of Service: 02/08/24
[2024-02-08] MEDS: Acetaminophen 325 MG TABLET 975 MG PO (17:37)
[2024-02-08] MEDS: Gabapentin 100 MG CAPSULE PO (21:03)
[2024-02-08] MEDS: Insulin Glargine,Hum.rec.anlog 100 UNIT/ML 10 ML VIAL SUBCUT (23:29)
[2024-02-08 23:46] LABS: Glucose, Whole Blood 90 mg/dL (60-115)
[2024-02-09] VITALS (9 sets, daily range): BP systolic 125–170; BP diastolic 54–79; PULSE 84–118; RESP 16–23; TEMP 36.6–37.9; O2SAT 88–100
[2024-02-09] MEDS: 0.9 % Sodium Chloride Flush 3 ML SYRINGE IVFLUSH ×3 (00:10→15:34)
[2024-02-09] MEDS: Piperacillin Sodium/Tazobactam 3.375 GM in 0.9 % Sodium Chloride 50 ML IV ×4 (00:39→22:32)
[2024-02-09] MEDS: vancomycin HCL 1,000 MG in 0.9 % Sodium Chloride 250 ML 270 MG IV (03:26)
[2024-02-09] MEDS: Acetaminophen 325 MG TABLET 975 MG PO ×2 (03:26→22:31)
[2024-02-09] MEDS: Albuterol/Iprat 2.5/0.5MG 3 ML AMPUL.NEB INHALE (04:06)
[2024-02-09] MEDS: Furosemide 100 MG/10 ML VIAL 60 MG IVPUSH ×2 (05:42→17:47)
[2024-02-09 06:39] LABS: Glucose, Whole Blood 122 mg/dL (60-115)
[2024-02-09 07:11] LABS: Anion Gap 16 (12-20); Blood Urea Nitrogen 23 mg/dL (9-16); Carbon Dioxide 25 mmol/L (22-29); Chloride 100 mmol/L (96-108); Creatinine Clr Calc Pharmacy 37.1; Estimated Glomerular Filt Rate 33; Glucose Random 123 mg/dL (60-115); Mean Corpuscular HGB Conc 32.5 g/dl (31.0-35.0); Mean Corpuscular Hemoglobin 28.6 pg (27.0-33.0); Mean Corpuscular Volume 87.8 fL (80.0-98.0); Mean Platelet Volume 10.3 fL (9.4-12.3); Platelet Count 183 X10*3/uL (160-400); Potassium 3.7 mmol/L (3.3-5.1); Red Blood Count 2.38 X10*6/uL (4.20-5.50); Red Cell Distribution Width 15.1 % (11.0-16.0); Sodium 137 mmol/L (135-145); White Blood Count 9.9 X10*3/uL (4.8-10.8)
[2024-02-09 07:36] LABS: Hemoglobin 6.8 g/dl (12.0-16.0)
[2024-02-09 07:37] LABS: Hematocrit 20.9 % (37.0-47.0)
[2024-02-09 08:09] LABS: Iron 11 mcg/dL (30-160); Percent Iron Saturation 8 % (15-50); Total Iron Binding Capacity 143 mcg/dL (228-428); Unsaturated Iron Binding 132 ug/dL
[2024-02-09] MEDS: Aspirin Enteric Coated 81 MG TABLET.DR PO (09:03)
[2024-02-09] MEDS: amLODIPine Besylate 5 MG TABLET PO (09:03)
--- NOTE | 2024-02-09 10:47 | HO.PM.IMPN ---
Subjective Subjective Date of Service: 02/09/24 Interval History: Seen and evaluated this morning Feels better overall, decrease O2 supplement reports weakness Drop in Hb to 6.7 No other events overnight Review of Systems Review of Systems: Yes all other systems are reviewed and are negative Physical Exam Vital Signs: Vital Signs: Last Vital Signs Temp 98.9 F 02/09/24 07:51 Pulse 92 02/09/24 07:51 Resp 16 02/09/24 07:51 BP 140/63 H 02/09/24 09:03 Pulse Ox 95 02/09/24 07:51 O2 Del Method Room Air 02/09/24 07:51 O2 Flow Rate 4 02/09/24 03:23 FiO2 40 02/07/24 20:14 BMI result Body Mass Index 25.7 Const: Other: Constitutional : Awake, interactive, not in distress Neck : Normal inspection, Supple Cardiovascular : RRR, no JVP, trace lower extremity edema Respiratory : fair bilateral air entry, basal crackles, no wheezing , On O2 supplement Gastrointestinal: soft, lax, Normal bowel sounds, Non tender Skin : Warm, Dry Neurological : Alert & oriented x3, No focal deficit Objective Data Active Medications Acetaminophen (Acetaminophen 325 Mg Tablet) 975 mg PO Q6H PRN PRN Reason: Pain, Mild (Pain Scale 1-3), fever or headache Last Admin: 02/09/24 03:26 Dose: 975 mg Documented By: JUAN JOSÉ Albuterol/Ipratropium (Albuterol/Iprat 2.5/0.5mg 3 Ml Ampul.Neb) 3 ml INHALE Q4H PRN PRN Reason: wheezing Last Admin: 02/09/24 04:06 Dose: 3 ml Documented By: ELIDIA Amlodipine Besylate (Amlodipine Besylate 5 Mg Tablet) 5 mg PO DAILY [facility]; Protocol Last Admin: 02/09/24 09:03 Dose: 5 mg Documented By: LOIS Aspirin (Aspirin Enteric Coated 81 Mg Tablet.) 81 mg PO DAILY@0900 [facility] Last Admin: 02/09/24 09:03 Dose: 81 mg Documented By: LOIS Furosemide (Furosemide 100 Mg/10 Ml Vial) 60 mg IVPUSH Q12H [facility]; Protocol Last Admin: 02/09/24 05:42 Dose: 60 mg Documented By: JUAN JOSÉ Gabapentin (Gabapentin 100 Mg Capsule) 100 mg PO BEDTIME [facility] Last Admin: 02/08/24 21:03 Dose: 100 mg Documented By: JUAN JOSÉ Glucose (Glucose Gel 15 Gm Gel..Gram.) 15 gm PO Q15M PRN; Protocol PRN Reason: per Hypoglycemia Standing Ord. Dextrose (D10) 250 mls @ 750 mls/hr IV Q15M PRN; Protocol PRN Reason: per Hypoglycemia Standing Ord. Piperacillin Sod/Tazobactam (Sod 3.375 gm/ Sodium Chloride) 50 mls @ 100 mls/hr IV Q6H [facility] Last Infusion: 02/09/24 06:12 Dose: Infused Documented By: JUAN JOSÉ Vancomycin HCl 1,000 mg/ (Sodium Chloride) 270 mls @ 270 mls/hr IV Q12H [facility] Last Infusion: 02/09/24 04:26 Dose: Infused Documented By: JUAN JOSÉ Insulin Glargine (Insulin Glargine,Hum.Rec.Anlog 100 Unit/Ml 10 Ml Vial) 5 unit SUBCUT BEDTIME [facility] Last Admin: 02/08/24 23:29 Dose: 5 unit Documented By: JUAN JOSÉ Insulin Human Lispro (Insulin Lispro 100 Unit/Ml 3 Ml Vial) 0.1 - 10 unit SUBCUT Q6H [facility]; Protocol Last Admin: 02/09/24 06:37 Dose: Not Given Documented By: JUAN JOSÉ Non-Admin Reason: under perameters Magnesium Hydroxide (Milk Of Magnesia 30 Ml Oral.Susp) 30 ml PO DAILY PRN PRN Reason: Constipation Ondansetron HCl (Ondansetron Hcl 4 Mg/2 Ml Vial) 4 mg IVPUSH Q8H PRN PRN Reason: Nausea and Vomiting Pharmacy Consult (Consult Rx Vancomycin Dosing) 1 each MISCELLANE DAILY PRN PRN Reason: Consult order Sodium Chloride (0.9 % Sodium Chloride Flush 3 Ml Syringe) 3 ml IVFLUSH QSHIFT [facility] Last Admin: 02/09/24 09:03 Dose: 3 ml Documented By: LOIS Labs 02/09/24 06:04 02/09/24 06:04 Labs: Laboratory Results - last 24 hr 02/08/24 02/08/24 02/08/24 11:39 16:04 23:42 MCV MCH MCHC RDW Plt Count MPV Absolute Nucleated RBC Nucleated RBC % (auto) Anion Gap Estim Creat Clear Calc Estimated GFR POC Glucose 148 H 115 90 Random Glucose Calcium Iron TIBC % Saturation Unsat Iron Binding Blood Type Antibody Screen Crossmatch 02/09/24 02/09/24 02/09/24 06:04 06:25 09:21 MCV 87.8 MCH 28.6 MCHC 32.5 RDW 15.1 Plt Count 183 MPV 10.3 Absolute Nucleated RBC 0.000 Nucleated RBC % (auto) 0.0 Anion Gap 16 Estim Creat Clear Calc 37.1 Estimated GFR 33 POC Glucose 122 H Random Glucose 123 H Calcium 8.0 L D Iron 11 L TIBC 143 L % Saturation 8 L Unsat Iron Binding 132 Blood Type A Positive Antibody Screen NEGATIVE Crossmatch See Detail Microbiology Microbiology Results: Microbiology 02/08/24 01:59 Gram Stain - Final Thoracentesis Fluid Routine Culture - Preliminary No growth to date. Anaerobic Culture - Preliminary No growth to date. 02/07/24 18:39 Blood Culture - Preliminary Blood - Venous Staphylococcus species 02/07/24 18:39 Blood Culture - Preliminary Blood - Venous Staphylococcus species Assessment and Plan (1) Acute on chronic anemia: Status: Acute (2) Bilateral pleural effusion: Status: Acute (3) Acute on chronic diastolic (congestive) heart failure: Status: Acute (4) Acute hypoxic respiratory failure: Status: Acute (5) Pneumonia: Status: Acute (6) Acute hyponatremia: Status: Acute Plan Queta Loya is a 53 y/o woman w/ PMHx significant for COPD -home O2 2L/min admitted with: # Acute on chronic hypoxic respiratory failure 2/2 Acute on chronic diastolic CHF, large bilateral pleural effusions, multilevel lung pneumonia Complicated with Staph Bacteremia Improving slowly blood cultures growing Staph repeat blood Cx Continue Lasix 60 mg IV twice daily Continue IV Zosyn and Vancomycin Check TTE ID consult s/p unilateral thoracentesis by ED -1,200 ml Right side Thoracic surgery consult, Left side thora # Acute on chronic anemia Hb 6.8 check occult and iron profile give 1 unit transfusion # Acute kidney injury Improving Avoid nephrotoxic agents Follow BMP # Acute Hyponatremia, corrected # Essential hypertension. Continue amlodipine. Hold Losartan due to [place] # Type 2 diabetes mellitus. SSI, POC # Hyperlipidemia. Continue statin. DVT prophylaxis: Lovenox Code status: Full Patient will need hospitalization overnight for acute on chronic hypoxic respiratory failure treatment with supplemental oxygen, IV antibiotic therapy, blood transfusion and diuresis. Quality Stroke Does the patient have a stroke diagnosis?: No VTE Prior VTE?: No VTE Risk Level:: Medical - moderate - high VTE Device Contraindication: Treatment Not Indicated VTE Drug Contraindication: N/A - Med Ordered
[2024-02-09 12:23] LABS: Glucose, Whole Blood 172 mg/dL (60-115)
[2024-02-09] MEDS: Insulin Lispro 100 UNIT/ML 3 ML VIAL SUBCUT ×2 (12:45→22:33)
--- NOTE | 2024-02-09 13:24 | PM.PNTS ---
Subjective Subjective Date of Service: 02/09/24 Interval history: Patient much clinically improved from respiratory standpoint. Off CPAP. Tolerating a diet. Able to communicate.. Patient receiving blood transfusion. White count down to 9.9 Physical Exam Vital Signs: Vital Signs: Last Vital Signs Temp 97.9 F 02/09/24 11:41 Pulse 85 02/09/24 11:41 Resp 17 02/09/24 11:41 BP 144/66 H 02/09/24 11:41 Pulse Ox 95 02/09/24 07:51 O2 Del Method Room Air 02/09/24 07:51 O2 Flow Rate 4 02/09/24 03:23 FiO2 40 02/07/24 20:14 BMI result Body Mass Index 25.7 Chest: Other: Diminished breath sounds right. GI: Other: Abdomen soft Procedures Date of Service Date of Service: 02/09/24 Progress Note: A&P Assessment and plan (1) Pneumonia: Status: Acute (2) Acute on chronic anemia: Status: Acute Plan Left lung field much improved. Patient has persistent right pleural effusion. Consider repeat thoracentesis or IR chest tube if symptoms progress or pleural effusion enlarges. Time Spent With Patient Time: Total time managing care of this patient today ____ minutes. Quality Stroke Does the patient have a stroke diagnosis?: No VTE Prior VTE?: No VTE Risk Level:: Medical - moderate - high VTE Device Contraindication: Treatment Not Indicated VTE Drug Contraindication: N/A - Med Ordered
[2024-02-09 15:28] LABS: Glucose, Whole Blood 121 mg/dL (60-115)
[2024-02-09 22:22] LABS: Vancomycin Random 29.7 mcg/mL (15-20)
[2024-02-09 22:24] LABS: Glucose, Whole Blood 243 mg/dL (60-115)
[2024-02-09] MEDS: Gabapentin 100 MG CAPSULE PO (22:31)
[2024-02-09] MEDS: Insulin Glargine,Hum.rec.anlog 100 UNIT/ML 10 ML VIAL SUBCUT (22:32)
[2024-02-10] VITALS (8 sets, daily range): BP systolic 124–150; BP diastolic 54–70; PULSE 59–88; RESP 16–20; TEMP 36.1–37.8; O2SAT 99–100
[2024-02-10] MEDS: 0.9 % Sodium Chloride Flush 3 ML SYRINGE IVFLUSH ×3 (00:24→16:10)
[2024-02-10] MEDS: Piperacillin Sodium/Tazobactam 3.375 GM in 0.9 % Sodium Chloride 50 ML IV ×2 (03:33→08:33)
[2024-02-10] MEDS: Furosemide 100 MG/10 ML VIAL 60 MG IVPUSH (05:26)
[2024-02-10 05:29] LABS: Glucose, Whole Blood 69 mg/dL (60-115)
[2024-02-10 06:31] LABS: Hematocrit 29.1 % (37.0-47.0); Hemoglobin 9.8 g/dl (12.0-16.0); Mean Corpuscular HGB Conc 33.7 g/dl (31.0-35.0); Mean Corpuscular Volume 86.1 fL (80.0-98.0); Mean Platelet Volume 8.8 fL (9.4-12.3); Platelet Count 190 X10*3/uL (160-400); Red Blood Count 3.38 X10*6/uL (4.20-5.50); Red Cell Distribution Width 14.6 % (11.0-16.0); White Blood Count 8.7 X10*3/uL (4.8-10.8)
[2024-02-10 06:47] LABS: Anion Gap 9 (12-20); Blood Urea Nitrogen 19 mg/dL (9-16); Calcium 8.2 mg/dL (8.4-10.2); Carbon Dioxide 34 mmol/L (22-29); Chloride 99 mmol/L (96-108); Creatinine Clr Calc Pharmacy 37.6; Estimated Glomerular Filt Rate 33; Glucose Random 99 mg/dL (60-115); Potassium 3.1 mmol/L (3.3-5.1); Sodium 139 mmol/L (135-145)
--- NOTE | 2024-02-10 07:00 | CA_ITS ---
Transthoracic Echocardiogram Patient (Last, First, Middle): Queta Loya, Gender: Female Date of : 1970 Age: 53 Procedure Date: 02/10/2024 Procedure Type: Transthoracic Echocardiogram Location: [facility] [place] Height: 162.56 cm Weight: 68.04 kg BSA: 1.73 m2 Heart Rate: 76 bpm BP: 145 / 78 mmHg [place] Stitcher: SB Referring MD: Mickie Gómez MD Freight Brake Operator: Yohannes Troncoso MD Symptoms: Bilateral pleural effusion, pericardial effusion Study Quality: Fair but adequate apical images ECG Rhythm: Sinus Conclusions: - 1. Mildly reduced LV ejection fraction 45-50% with elevated filling pressures 2. Cardiac valvular Doppler was within normal limits 3. Trivial pericardial effusion Findings Left Ventricle Normal left ventricular cavity size. There is normal left ventricular wall thickness. The left ventricular systolic function is mildly decreased. The visually estimated ejection fraction is between 45-50%. Spectral Doppler is indicative of an impaired relaxation filling pattern. Elevated filling pressures. E/E prime ratio is >15, consistent with elevated filling pressures. Right Ventricle Normal right ventricular cavity size and systolic function. Atria The left atrium is likely dilated. There is no evidence of interatrial shunt. The right atrium is normal in size. Aortic Valve Normal aortic valve structure and function. There is no aortic valve stenosis. There is no aortic valve regurgitation. Mitral Valve Likely normal mitral valve structure and function. There is trace mitral valve regurgitation. There is no mitral valve stenosis. Pulmonic Valve The pulmonic valve was not well visualized. Tricuspid Valve Normal tricuspid valve structure. Tricuspid regurgitation envelope is inadequate for calculation of right ventricular systolic pressure. Normal right atrial pressure. Great Vessels All visible segments of the aorta are normal in size. The pulmonary artery was not well visualized. There is no dilatation of the ascending aorta measuring 2.50 cm. Venous The inferior vena cava is normal in size and collapses greater than 50% with inspiration. Pericardium/Pleural There is a trivial pericardial effusion. Measurements 2D Linear Measurements IVSd: 0.96 0.6-0.9/0.6-1.0 cm LVIDd: 4.73 3.9-5.3/4.2-5.9 cm LVIDd Index: 2.73 2.4-3.2/2.2-3.1 cm/m2 LVIDs: 3.89 2.0-3.6 cm LVPWd: 0.86 0.7-1.1 cm LA Diam: 3.50 2.7-3.8/3.0-4.0 cm LAIDs Index: 2.02 1.5-2.3 cm/m2 LV Mass: 181.13 67-162/88-224 g LV Mass Index: 104.70 43-95/49-115 g/m2 LVOT Diam: 2.00 3.0+(-)1.3 cm 2D Systolic Function EF 4C: 46.70 >55% EF 2C: 49.70 >55% EF BiP: 46.30 >55% Mitral Valve MV Pk E: 0.91 MV PK A: 0.94 MV Decel Time: 225.00 E/A: 1.00 E'Lateral: 4.13 E'Medial: 4.46 E/E' Med: 20.40 E/E' Lat: 22.00 PHT: 66.00 MVA PHT: 3.33 Decel [place]: 4.04 Aortic Valve AoV Pk Nathan: 1.00 AoV Pk Grad: 4.00 MARY JANE: 2.19 LVOT LVOT Pk Nathan: 0.65 LVOT Mn Nathan: 0.53 LVOT VTI: 0.17 LVOT Pk Grad: 2.00 LVOT Mn Grad: 1.00 LVOT Diam: 2.00 LVOT Area: 3.14 Diastolic Function MV Pk E: 0.91 MV Pk A: 0.94 E/A: 1.00 E'Medial: 4.46 E/E' Med: 20.40 E' Laterial: 4.13 E/E' Lat: 22.00 Right Ventricle TAPSE (mm): 22.20 TVS' Nathan: 8.00 Tricuspid Valve RA Press: 3.00 Great Vessels Aorta Sinus of Valsalva: 2.30 2.0-3.5 cm Ao Asc: 2.50 2.1-3.4 cm Ao Arch: 2.40 Pulmonary Valve PV Pk Nathan: 0.70 Peak PV Grad: 2.00 Updated in Other Vendor System with Status of Final Yohannes Troncoso MD electronically signed on 02/10/2024 12:16:03 PM with status of Final
[2024-02-10 08:08] LABS: Glucose, Whole Blood 134 mg/dL (60-115)
[2024-02-10] MEDS: Aspirin Enteric Coated 81 MG TABLET.DR PO (08:16)
[2024-02-10] MEDS: Potassium Chloride ER 20 MEQ TAB.ER.PRT 40 MEQ PO (08:16)
[2024-02-10] MEDS: amLODIPine Besylate 5 MG TABLET PO (08:16)
[2024-02-10] MEDS: Furosemide 100 MG/10 ML VIAL 40 MG IVPUSH (08:17)
--- NOTE | 2024-02-10 09:49 | P.CDIM_ITS ---
PROVIDER RESPONSE TEXT: To clarify, the appropriate diagnosis supported by the clinical indicators: Iron deficiency anemia due to chronic blood loss QUERY TEXT: PHYSICIAN'S DOCUMENTATION REQUEST Date of Query: 02/10/2024 07:55 AM EDT Patient Name: Queta Loya Admit Date: 02/08/2024 Dear Saji Adams MD, A review of the medical record indicates additional documentation may be needed. Please review below and update the documentation accordingly. Clinical Indicators: LABS: Iron 11 L H/H 6.8 20.9 Transfuse 1 unit PRBC BP 125/54 L Based on the above, could you clarify which of the following is the most likely type of anemia you ar e evaluating, treating, and/or monitoring? Iron deficiency anemia due to chronic blood loss Iron deficiency anemia due to/associated with acute and chronic blood loss (specify type) Anemia of chronic disease indicate if neoplastic disease, CKD, or other Chronic iron deficiency anemia due to blood loss Acute blood loss anemia possible, probable, unknown source, suspected etc. Other (explain) Clinically unable to determine (explain) Thank you, Brianna Nichole, CCS, CDIS Use of terms such as suspected, likely, concern for, or probable (associated with a specific diagnosi s that is being evaluated, monitored, or treated as if it exists) are acceptable and can be coded in the inpatient se tting, when documented at the time of discharge. Please use your independent medical judgment in providing your response. THIS QUERY IS PART OF THE PERMANENT MEDICAL RECORD
[2024-02-10] MEDS: Lidocaine HCl 1 % MPF 5 ML VIAL 10 ML SUBCUT (10:26)
--- NOTE | 2024-02-10 10:27 | PM.PROC ---
Brief Operative Note Date of procedure: 02/10/24 Pre-op diagnosis: Left pleural effusion Post-op diagnosis: same Procedure: US left thoracentesis 500 cc yellow fluid removed. No immediate complications Anesthesia: local
[2024-02-10 11:00] LABS: Vancomycin Random 23.2 mcg/mL (15-20)
[2024-02-10 11:07] LABS: Glucose, Whole Blood 196 mg/dL (60-115)
[2024-02-10] MEDS: Insulin Lispro 100 UNIT/ML 3 ML VIAL SUBCUT ×3 (11:18→21:25)
[2024-02-10] MEDS: Sodium Ferric Gluconat/Sucrose 125 MG in 0.9 % Sodium Chloride 100 ML 100 MG IV (11:23)
--- NOTE | 2024-02-10 11:40 | MHC.CM.PN ---
Pt has not been medically cleared. She requires treatment for acute on chronic hypoxic respiratory failure, treatment with supplemental O2, IV ABX, blood transfusion and diuresis.
--- NOTE | 2024-02-10 15:05 | HO.PM.IMPN ---
Subjective Subjective Date of Service: 02/10/24 Interval History: Seen and evaluated this morning feels better, still dyspneic Hb improved to 9.8 after transfusion Plan for thoracentesis today No other events overnight Review of Systems Review of Systems: Yes all other systems are reviewed and are negative Physical Exam Vital Signs: Vital Signs: Last Vital Signs Temp 97.2 F 02/10/24 11:30 Pulse 61 02/10/24 11:30 Resp 20 02/10/24 11:30 BP 148/68 H 02/10/24 11:30 Pulse Ox 100 02/10/24 11:30 O2 Del Method Nasal Cannula 02/10/24 11:30 O2 Flow Rate 2 02/10/24 11:30 FiO2 40 02/07/24 20:14 BMI result Body Mass Index 25.7 Const: Other: Constitutional : Awake, interactive, not in distress Neck : Normal inspection, Supple Cardiovascular : RRR, no JVP, trace lower extremity edema Respiratory : fair bilateral air entry decreased at the bases, basal crackles, no wheezing , On O2 supplement Gastrointestinal: soft, lax, Normal bowel sounds, Non tender Skin : Warm, Dry Neurological : Alert & oriented x3, No focal deficit Objective Data Active Medications Acetaminophen (Acetaminophen 325 Mg Tablet) 975 mg PO Q6H PRN PRN Reason: Pain, Mild (Pain Scale 1-3), fever or headache Last Admin: 02/09/24 22:31 Dose: 975 mg Documented By: MARIA FERNANDA Albuterol/Ipratropium (Albuterol/Iprat 2.5/0.5mg 3 Ml Ampul.Neb) 3 ml INHALE Q4H PRN PRN Reason: wheezing Last Admin: 02/09/24 04:06 Dose: 3 ml Documented By: ELIDIA Amlodipine Besylate (Amlodipine Besylate 5 Mg Tablet) 5 mg PO DAILY [facility]; Protocol Last Admin: 02/10/24 08:16 Dose: 5 mg Documented By: BRUNO Aspirin (Aspirin Enteric Coated 81 Mg Tablet.) 81 mg PO DAILY@0900 [facility] Last Admin: 02/10/24 08:16 Dose: 81 mg Documented By: BRUNO Furosemide (Furosemide 100 Mg/10 Ml Vial) 40 mg IVPUSH DAILY [facility]; Protocol Last Admin: 02/10/24 08:17 Dose: 40 mg Documented By: BRUNO Gabapentin (Gabapentin 100 Mg Capsule) 100 mg PO BEDTIME [facility] Last Admin: 02/09/24 22:31 Dose: 100 mg Documented By: MARIA FERNANDA Glucose (Glucose Gel 15 Gm Gel..Gram.) 15 gm PO Q15M PRN; Protocol PRN Reason: per Hypoglycemia Standing Ord. Dextrose (D10) 250 mls @ 750 mls/hr IV Q15M PRN; Protocol PRN Reason: per Hypoglycemia Standing Ord. Vancomycin HCl 750 mg/ Sodium (Chloride) 265 mls @ 265 mls/hr IV Q24H [facility] Piperacillin Sod/Tazobactam (Sod 3.375 gm/ Sodium Chloride) 50 mls @ 100 mls/hr IV Q6H [facility] Last Infusion: 02/10/24 09:03 Dose: Infused Documented By: BRUNO Ferric Sodium Gluconate Complex 125 mg/ Sodium Chloride 110 mls @ 100 mls/hr IV DAILY [facility] Stop: 02/12/24 10:05 Last Infusion: 02/10/24 12:29 Dose: Infused Documented By: BRUNO Insulin Glargine (Insulin Glargine,Hum.Rec.Anlog 100 Unit/Ml 10 Ml Vial) 5 unit SUBCUT BEDTIME [facility] Last Admin: 02/09/24 22:32 Dose: 5 unit Documented By: MARIA FERNANDA Insulin Human Lispro (Insulin Lispro 100 Unit/Ml 3 Ml Vial) 0.1 - 10 unit SUBCUT Q6H [facility]; Protocol Last Admin: 02/10/24 11:18 Dose: 2 unit Documented By: BRUNO Magnesium Hydroxide (Milk Of Magnesia 30 Ml Oral.Susp) 30 ml PO DAILY PRN PRN Reason: Constipation Ondansetron HCl (Ondansetron Hcl 4 Mg/2 Ml Vial) 4 mg IVPUSH Q8H PRN PRN Reason: Nausea and Vomiting Pharmacy Consult (Consult Rx Vancomycin Dosing) 1 each MISCELLANE DAILY PRN PRN Reason: Consult order Sodium Chloride (0.9 % Sodium Chloride Flush 3 Ml Syringe) 3 ml IVFLUSH QSHIFT [facility] Last Admin: 02/10/24 08:24 Dose: 3 ml Documented By: BRUNO Labs 02/10/24 06:03 02/10/24 06:03 Labs: Laboratory Results - last 24 hr 10/10/2702/09/24 02/09/24 09:21 15:19 21:48 MCV MCH MCHC RDW Plt Count MPV Absolute Nucleated RBC Nucleated RBC % (auto) Anion Gap Estim Creat Clear Calc Estimated GFR POC Glucose 121 H Random Glucose Calcium Random Vancomycin 29.7 H* Crossmatch See Detail 02/09/24 02/10/24 02/10/24 22:19 05:25 06:03 MCV 86.1 MCH 29.0 MCHC 33.7 RDW 14.6 Plt Count 190 MPV 8.8 L Absolute Nucleated RBC 0.000 Nucleated RBC % (auto) 0.0 Anion Gap 9 L Estim Creat Clear Calc 37.6 Estimated GFR 33 POC Glucose 243 H 69 Random Glucose 99 Calcium 8.2 L Random Vancomycin Crossmatch 02/10/24 02/10/24 02/10/24 07:43 10:41 11:03 MCV MCH MCHC RDW Plt Count MPV Absolute Nucleated RBC Nucleated RBC % (auto) Anion Gap Estim Creat Clear Calc Estimated GFR POC Glucose 134 H 196 H Random Glucose Calcium Random Vancomycin 23.2 H Crossmatch Microbiology Microbiology Results: Microbiology 02/07/24 18:39 Blood Culture - Final Blood - Venous Staphylococcus aureus 02/07/24 18:39 Blood Culture - Final Blood - Venous Staphylococcus aureus 02/08/24 01:59 Gram Stain - Final Thoracentesis Fluid Routine Culture - Final No growth after 2 days Anaerobic Culture - Preliminary No growth to date. 02/08/24 16:24 Blood Culture - Preliminary Blood - Venous No growth after 24 hours. 02/08/24 16:24 Blood Culture - Preliminary Blood - Venous No growth after 24 hours. Assessment and Plan (1) MSSA bacteremia: Status: Acute (2) Acute hypokalemia: Status: Acute (3) Acute hyponatremia: Status: Acute (4) Pneumonia: Status: Acute (5) Acute on chronic anemia: Status: Acute (6) Bilateral pleural effusion: Status: Acute (7) Acute on chronic diastolic (congestive) heart failure: Status: Acute Plan Queta Loya is a 53 y/o woman w/ PMHx significant for COPD -home O2 2L/min admitted with: # Acute on chronic hypoxic respiratory failure 2/2 Acute on chronic diastolic CHF, large bilateral pleural effusions, multilevel lung pneumonia Complicated with MSSA Bacteremia Improving slowly blood cultures growing MSSA repeat blood Cx pending Decrease Lasix to 40 IV daily dc IV Zosyn and Vancomycin , start Cefazoline TTE showing mild reduction in EF 45-50% with no vegetations ID input appreciated s/p unilateral thoracentesis by ED -1,200 ml Right side Thoracic surgery consult, Left side thora # Elevated Vancomycin trough level of 38, Vancomycin Dcd trending down to 23 today # Acute on chronic anemia Hb improved to 9.8 post 1 unit PRBCs check occult normal iron profile # Acute kidney injury stable at 1.6 Avoid nephrotoxic agents Follow BMP # Acute hypokalemia replacement given follow BMP # Acute Hyponatremia, corrected # Essential hypertension. Continue amlodipine. DC Losartan. Start Labetalol # Type 2 diabetes mellitus. SSI, POC # Hyperlipidemia. Continue statin. DVT prophylaxis: Lovenox Code status: Full Patient will need hospitalization overnight for acute on chronic hypoxic respiratory failure treatment with supplemental oxygen, IV antibiotic therapy, blood transfusion and diuresis. Quality Stroke Does the patient have a stroke diagnosis?: No VTE Prior VTE?: No VTE Risk Level:: Medical - moderate - high VTE Device Contraindication: Treatment Not Indicated VTE Drug Contraindication: N/A - Med Ordered
[2024-02-10] MEDS: ceFAZolin Sodium/Dextrose,Iso 2 GM/50 ML PIGGYBACK IV (16:15)
[2024-02-10 16:58] LABS: Glucose, Whole Blood 189 mg/dL (60-115)
--- NOTE | 2024-02-10 17:35 | PC.NURSE ---
per MD st, charly HUSSEIN at 1730, . pt d/t void at [id number].
[2024-02-10 20:46] LABS: Glucose, Whole Blood 196 mg/dL (60-115)
[2024-02-10] MEDS: Insulin Glargine,Hum.rec.anlog 100 UNIT/ML 10 ML VIAL SUBCUT (21:23)
[2024-02-10] MEDS: Gabapentin 100 MG CAPSULE PO (21:25)
[2024-02-10] MEDS: Acetaminophen 325 MG TABLET 975 MG PO (21:25)
[2024-02-11] MEDS: ceFAZolin Sodium/Dextrose,Iso 2 GM/50 ML PIGGYBACK IV ×4 (02:00→23:16)
[2024-02-11 03:51] VITALS: BP 146/62; PULSE 74; RESP 16; TEMP 36.6; O2SAT 100
[2024-02-11 06:37] LABS: Hematocrit 31.1 % (37.0-47.0); Hemoglobin 10.4 g/dl (12.0-16.0); Mean Corpuscular HGB Conc 33.4 g/dl (31.0-35.0); Mean Corpuscular Hemoglobin 28.7 pg (27.0-33.0); Mean Corpuscular Volume 85.9 fL (80.0-98.0); Mean Platelet Volume 9.2 fL (9.4-12.3); Platelet Count 185 X10*3/uL (160-400); Red Blood Count 3.62 X10*6/uL (4.20-5.50); Red Cell Distribution Width 14.1 % (11.0-16.0); White Blood Count 7.2 X10*3/uL (4.8-10.8)
[2024-02-11 06:50] LABS: Anion Gap 12 (12-20); Blood Urea Nitrogen 23 mg/dL (9-16); Calcium 8.8 mg/dL (8.4-10.2); Carbon Dioxide 36 mmol/L (22-29); Chloride 96 mmol/L (96-108); Creatinine Clr Calc Pharmacy 39.5; Estimated Glomerular Filt Rate 35; Glucose Random 104 mg/dL (60-115); Potassium 3.7 mmol/L (3.3-5.1); Sodium 140 mmol/L (135-145)
[2024-02-11 06:53] LABS: Glucose, Whole Blood 110 mg/dL (60-115)
[2024-02-11 07:52] LABS: Glucose, Whole Blood 93 mg/dL (60-115)
[2024-02-11 08:00] VITALS: BP 170/85; PULSE 78; RESP 20; TEMP 36.1; O2SAT 100
--- NOTE | 2024-02-11 10:10 | PM.CNNEP ---
History of Present Illness Reason for Consult Consult date: 02/11/24 Chief Complaint Chief complaint: Hypoxic respiratory failure History of Present Illness Narrative: Pt is a 53 y/o primarily Upper Sorbian-speaking female with a PMH of HFpEF, DMII (with lower extremity neuropathy), COPD (on home O2 2L NC), postural hypotension. admit 02/07 for multifactorial acute on chronic respiratory failure- PNA, pericardial effusion, acute on chronic diastolic HF pt had DILLON on admission- baseline creatinine 1.15, on admission 1.61 creatinine has persisted at 1.6 over last few days, though down slightly to 1.54 today low sodium on admission (131)- yesterday 139, today 140 vanco troughs are elevated but trending down (vanco d/c'd and switched to cefazolin) at home she takes amlodipine 10mg for blood pressure control- currently prescribed amlodipine 5mg daily and furosemide 40mg IVP once daily; blood pressures elevated, 140s-150s this a.m. pt reports she is urinating comfortably without difficulty, denies flank pain (1800mL output over last 24 hours) she denies regular use of nsaids prior to admission reports her breathing feels better than it did a few days ago but still feels more difficult than her baseline she denies chest pain, dizziness, headache she denies abdominal pain denies new rash, joint pain Review of Systems Constitutional: Denies anorexia and Denies fever(s) Cardiovascular: Denies no additional cardiovascular complaints, Denies chest pain and Reports dyspnea (reports improving but still not her normal baseline) Respiratory: Reports no additional respiratory complaints and Reports dyspnea (reports improving but still not her normal baseline) Gastrointestinal: Denies abdominal pain and Denies diarrhea Genitourinary: Denies hematuria, Denies difficulty voiding, Denies dysuria, Denies pelvic pain, Denies flank pain and Denies urinary incontinence Musculoskeletal: Denies arthralgias, Denies muscle cramps and Reports numbness (reports chronic BLE numbness, unchanged. ) Skin/Breast: Denies rash Denies focal weakness, Reports numbness (reports chronic BLE numbness, unchanged. ) and Denies tremor(s) [facility] Past Medical History Medical History Hypertension Symptomatic anemia Brain lesion Iron deficiency anemia HLD (hyperlipidemia) Anemia Depression Type 2 diabetes mellitus Family History Family History Other Hypertension Social History Social History Household Members: Family Household Members Other:: Daughter Housing: Apartment Do you presently have visiting nurse or other home services: No Unable to assess alcohol history related to: Unable to respond Alcohol intake: former Patient Tobacco Use Status: Never used Tobacco e-Cigarette/Vaping Use: Never Used Second Hand Smoke Exposure: No Advance Directives Date on File: 06/19/21 service: No Current occupational status: unemployed Meds Allergies Allergy/AdvReac Type Severity Reaction Status Date / Time shrimp Allergy Swelling Verified 02/07/24 17:47 Active Medications: Current Medications Acetaminophen (Acetaminophen 325 Mg Tablet) 975 mg PO Q6H PRN PRN Reason: Pain, Mild (Pain Scale 1-3), fever or headache Last Admin: 02/10/24 21:25 Dose: 975 mg Albuterol/Ipratropium (Albuterol/Iprat 2.5/0.5mg 3 Ml Ampul.Neb) 3 ml INHALE Q4H PRN PRN Reason: wheezing Last Admin: 02/09/24 04:06 Dose: 3 ml Amlodipine Besylate (Amlodipine Besylate 5 Mg Tablet) 5 mg PO DAILY [facility]; Protocol Last Admin: 02/10/24 08:16 Dose: 5 mg Aspirin (Aspirin Enteric Coated 81 Mg Tablet.Dr) 81 mg PO DAILY@0900 JM Last Admin: 02/10/24 08:16 Dose: 81 mg Furosemide (Furosemide 100 Mg/10 Ml Vial) 40 mg IVPUSH DAILY [facility]; Protocol Last Admin: 02/10/24 08:17 Dose: 40 mg Gabapentin (Gabapentin 100 Mg Capsule) 100 mg PO BEDTIME JM Last Admin: 02/10/24 21:25 Dose: 100 mg Glucose (Glucose Gel 15 Gm Gel..Gram.) 15 gm PO Q15M PRN; Protocol PRN Reason: per Hypoglycemia Standing Ord. Dextrose (D10) 250 mls @ 750 mls/hr IV Q15M PRN; Protocol PRN Reason: per Hypoglycemia Standing Ord. Ferric Sodium Gluconate Complex 125 mg/ Sodium Chloride 110 mls @ 100 mls/hr IV DAILY [facility] Stop: 02/12/24 10:05 Last Infusion: 10/07/24 12:29 Dose: Infused Cefazolin Sodium/Dextrose (Ancef) 2 gm in 50 mls @ 100 mls/hr IV Q8H [facility] Last Infusion: 02/11/24 02:30 Dose: Infused Insulin Glargine (Insulin Glargine,Hum.Rec.Anlog 100 Unit/Ml 10 Ml Vial) 5 unit SUBCUT BEDTIME [facility] Last Admin: 02/10/24 21:23 Dose: 5 unit Insulin Human Lispro (Insulin Lispro 100 Unit/Ml 3 Ml Vial) 0.1 - 10 unit SUBCUT Q6H [facility]; Protocol Last Admin: 02/11/24 05:00 Dose: Not Given Magnesium Hydroxide (Milk Of Magnesia 30 Ml Oral.Susp) 30 ml PO DAILY PRN PRN Reason: Constipation Ondansetron HCl (Ondansetron Hcl 4 Mg/2 Ml Vial) 4 mg IVPUSH Q8H PRN PRN Reason: Nausea and Vomiting Sodium Chloride (0.9 % Sodium Chloride Flush 3 Ml Syringe) 3 ml IVFLUSH QSHIFT [facility] Last Admin: 02/11/24 00:00 Dose: 3 ml Home Medications ?Medication ?Instructions ?Recorded ?Confirmed ?Last Taken ?Type aspirin 81 mg tablet,delayed 1 tab PO DAILY@0900 07/21/22 02/08/24 02/07/24 History release Physical Exam Vital Signs: Last Vital Signs Temp 97.0 F 02/11/24 08:00 Pulse 78 02/11/24 08:00 Resp 20 02/11/24 08:00 BP 170/85 H 02/11/24 08:00 Pulse Ox 100 02/11/24 08:00 O2 Del Method Nasal Cannula 02/11/24 08:00 O2 Flow Rate 2 02/11/24 08:00 FiO2 40 02/07/24 20:14 BMI result Body Mass Index 25.7 Const General: comfortable and no acute distress Orientation/consciousness: oriented to person, oriented to place and oriented to time Neck Neck: Yes no JVD Resp Effort & Inspection: able to speak in complete sentences Auscultation: clear to auscultation bilaterally Cardio Jugular venous distension: no JVD Rate: regular rate Rhythm: regular rhythm Heart sounds: S1 normal heart sound present and S2 normal heart sound present GI Palpation (GI): Soft to palpation Rectal Exam - Female: No tenderness General: Yes no CVA tenderness Back/Spine/Pelvis Back: no CVA tenderness Skin Rashes: no rashes Neuro General: oriented to person, oriented to place and oriented to time Extrem General: Yes normal to inspection, No edema and No pedal edema Results Lab Results 02/11/24 06:07 02/11/24 06:07 Lab results: Chemistry 02/09/24 02/10/24 02/11/24 06:04 06:03 06:07 Sodium 137 139 140 Potassium 3.7 3.1 L 3.7 Carbon Dioxide 25 34 H 36 H BUN 23 H 19 H 23 H Creatinine 1.64 H 1.62 H 1.54 H Calcium 8.0 L D 8.2 L 8.8 D Hematology 02/09/24 02/10/24 02/11/24 06:04 06:03 06:07 WBC 9.9 8.7 7.2 Hgb 6.8 L* 9.8 L D 10.4 L Plt Count 183 190 185 Assessment and Plan (1) Acute kidney injury: Status: Resolved (2) Hypertension: Qualifiers: Hypertension type: primary hypertension Qualified Code(s): I10 - Essential (primary) hypertension Status: Acute (3) Acute on chronic heart failure with preserved ejection fraction (HFpEF): Status: Acute Plan DILLON likely tubular injury secondary to hypoperfusion from CHF exacerbation (likely precipitated by PNA) recommend increasing her lasix to 40mg BID as patient continues to have dyspnea worse than her baseline and blood pressures are elevated recommend continue to monitor renal function, electrolytes, blood pressures Will continue to follow Discussed with Dr Gene Keith Date of Service Date of Service: 02/11/24
--- NOTE | 2024-02-11 10:12 | P.PNIM_ITS ---
Subjective Subjective Date of Service: 02/11/24 Interval History: Seen and evaluated this morning feels better, still dyspneic on O2 supplement Hb stable at 10.4 after transfusion No other events overnight Review of Systems Review of Systems: Yes all other systems are reviewed and are negative Physical Exam 2 Vital Signs: Vital Signs: Last Vital Signs Temp 97.0 F 02/11/24 08:00 Pulse 78 02/11/24 08:00 Resp 20 02/11/24 08:00 BP 170/85 H 02/11/24 08:00 Pulse Ox 100 02/11/24 08:00 O2 Del Method Nasal Cannula 02/11/24 08:00 O2 Flow Rate 2 02/11/24 08:00 FiO2 40 02/07/24 20:14 BMI result Body Mass Index 25.7 Const: Other: Constitutional : Awake, interactive, not in distress Neck : Normal inspection, Supple Cardiovascular : RRR, no JVP, trace lower extremity edema Respiratory : fair bilateral air entry decreased at the bases, basal crackles, no wheezing , On O2 supplement Gastrointestinal: soft, lax, Normal bowel sounds, Non tender Skin : Warm, Dry Neurological : Alert & oriented x3, No focal deficit Objective Data Active Medications Acetaminophen (Acetaminophen 325 Mg Tablet) 975 mg PO Q6H PRN PRN Reason: Pain, Mild (Pain Scale 1-3), fever or headache Last Admin: 02/10/24 21:25 Dose: 975 mg Documented By: MARIA FERNANDA Albuterol/Ipratropium (Albuterol/Iprat 2.5/0.5mg 3 Ml Ampul.Neb) 3 ml INHALE Q4H PRN PRN Reason: wheezing Last Admin: 02/09/24 04:06 Dose: 3 ml Documented By: ELIDIA Amlodipine Besylate (Amlodipine Besylate 5 Mg Tablet) 5 mg PO DAILY [facility]; Protocol Last Admin: 02/10/24 08:16 Dose: 5 mg Documented By: BRUNO Aspirin (Aspirin Enteric Coated 81 Mg Tablet.) 81 mg PO DAILY@0900 [facility] Last Admin: 02/10/24 08:16 Dose: 81 mg Documented By: BRUNO Furosemide (Furosemide 100 Mg/10 Ml Vial) 40 mg IVPUSH BID@0900,1800 [facility]; Protocol Gabapentin (Gabapentin 100 Mg Capsule) 100 mg PO BEDTIME [facility] Last Admin: 02/10/24 21:25 Dose: 100 mg Documented By: MARIA FERNANDA Glucose (Glucose Gel 15 Gm Gel..Gram.) 15 gm PO Q15M PRN; Protocol PRN Reason: per Hypoglycemia Standing Ord. Dextrose (D10) 250 mls @ 750 mls/hr IV Q15M PRN; Protocol PRN Reason: per Hypoglycemia Standing Ord. Ferric Sodium Gluconate Complex 125 mg/ Sodium Chloride 110 mls @ 100 mls/hr IV DAILY JM Stop: 02/12/24 10:05 Last Infusion: 02/10/24 12:29 Dose: Infused Documented By: BRUNO Cefazolin Sodium/Dextrose (Ancef) 2 gm in 50 mls @ 100 mls/hr IV Q8H [facility] Last Infusion: 02/11/24 02:30 Dose: Infused Documented By: MARIA FERNANDA Insulin Glargine (Insulin Glargine,Hum.Rec.Anlog 100 Unit/Ml 10 Ml Vial) 5 unit SUBCUT BEDTIME [facility] Last Admin: 02/10/24 21:23 Dose: 5 unit Documented By: MARIA FERNANDA Insulin Human Lispro (Insulin Lispro 100 Unit/Ml 3 Ml Vial) 0.1 - 10 unit SUBCUT Q6H [facility]; Protocol Last Admin: 02/11/24 05:00 Dose: Not Given Documented By: MARIA FERNANDA Non-Admin Reason: No Insulin Coverage Magnesium Hydroxide (Milk Of Magnesia 30 Ml Oral.Susp) 30 ml PO DAILY PRN PRN Reason: Constipation Ondansetron HCl (Ondansetron Hcl 4 Mg/2 Ml Vial) 4 mg IVPUSH Q8H PRN PRN Reason: Nausea and Vomiting Sodium Chloride (0.9 % Sodium Chloride Flush 3 Ml Syringe) 3 ml IVFLUSH QSHIFT [facility] Last Admin: 02/11/24 00:00 Dose: 3 ml Documented By: MARIA FERNANDA Labs 02/11/24 06:07 02/11/24 06:07 Labs: Laboratory Results - last 24 hr 02/10/24 02/10/24 02/10/24 10:41 11:03 15:31 MCV MCH MCHC RDW Plt Count MPV Absolute Nucleated RBC Nucleated RBC % (auto) Anion Gap Estim Creat Clear Calc Estimated GFR POC Glucose 196 H Random Glucose Calcium Random Vancomycin 23.2 H 21.0 H 02/10/24 02/10/24 02/11/24 16:53 20:38 06:07 MCV 85.9 MCH 28.7 MCHC 33.4 RDW 14.1 Plt Count 185 MPV 9.2 L Absolute Nucleated RBC 0.000 Nucleated RBC % (auto) 0.0 Anion Gap 12 Estim Creat Clear Calc 39.5 Estimated GFR 35 POC Glucose 189 H 196 H Random Glucose 104 Calcium 8.8 D Random Vancomycin 02/11/24 02/11/24 06:37 07:48 MCV MCH MCHC RDW Plt Count MPV Absolute Nucleated RBC Nucleated RBC % (auto) Anion Gap Estim Creat Clear Calc Estimated GFR POC Glucose 110 93 Random Glucose Calcium Random Vancomycin Microbiology Microbiology Results: Microbiology 02/08/24 01:59 Gram Stain - Final Thoracentesis Fluid Routine Culture - Final No growth after 2 days Anaerobic Culture - Preliminary No growth to date. 02/08/24 16:24 Blood Culture - Preliminary Blood - Venous No growth after 48 hours. 02/08/24 16:24 Blood Culture - Preliminary Blood - Venous No growth after 48 hours. 02/07/24 18:39 Blood Culture - Final Blood - Venous Staphylococcus aureus 02/07/24 18:39 Blood Culture - Final Blood - Venous Staphylococcus aureus Assessment and Plan (1) Acute hypokalemia: Status: Acute (2) MSSA bacteremia: Status: Acute (3) Acute hyponatremia: Status: Acute (4) Pneumonia: Status: Acute (5) Acute on chronic anemia: Status: Acute Plan Queta Loya is a 53 y/o woman w/ PMHx significant for COPD -home O2 2L/min admitted with: # Acute on chronic hypoxic respiratory failure 2/2 Acute on chronic diastolic CHF, large bilateral pleural effusions, multilevel lung pneumonia Complicated with MSSA Bacteremia Improving slowly blood cultures growing MSSA repeat blood Cx pending Increase Lasix to 40 IV bid dc IV Zosyn and Vancomycin , start Cefazoline (Neg Cx 02/07) TTE showing mild reduction in EF 45-50% with no vegetations ID input appreciated , 2 weeks Cefazolin Right sided thoracentesis by ED -1,200 ml IR removed 500 cc from left side effusion Thoracic surgery consult, Left side thora Place Midline PT eval # Elevated Vancomycin trough level of 38, Vancomycin Dcd trending down to 21 today # Acute on chronic anemia Hb improved to 10.4 post 1 unit PRBCs check occult normal iron profile # Acute kidney injury on CKD3 stable at 1.6 Avoid nephrotoxic agents Follow BMP Nephrology following # Acute hypokalemia replacement given follow BMP # Acute Hyponatremia, corrected # Essential hypertension. Continue amlodipine. DC Losartan. Start Labetalol # Type 2 diabetes mellitus. SSI, POC # Hyperlipidemia. Continue statin. DVT prophylaxis: Lovenox Code status: Full Patient will need hospitalization overnight for acute on chronic hypoxic respiratory failure treatment with supplemental oxygen, IV antibiotic therapy, blood transfusion and diuresis. Quality Stroke Does the patient have a stroke diagnosis?: No VTE Prior VTE?: No VTE Risk Level:: Medical - moderate - high VTE Device Contraindication: Treatment Not Indicated VTE Drug Contraindication: N/A - Med Ordered
[2024-02-11] MEDS: Aspirin Enteric Coated 81 MG TABLET.DR PO (11:03)
[2024-02-11] MEDS: 0.9 % Sodium Chloride Flush 3 ML SYRINGE IVFLUSH ×3 (11:09→17:30)
--- NOTE | 2024-02-11 11:11 | HO.MIDLINE_ITS ---
Midline Insertion MIDLINE INSERTION Diagnosis: Bacteremia Pneumonia, UTI Indication: 2 weeks of antibiotics Pertinent Labs: Reviewed Technique: Using sterile technique including cap and mask, glove and drape, the left arm was prepped and draped in the usual sterile fashion of full barrier technique with CHG. Using ultrasound guidance, the left cephalic vein was accessed on a second attempt by this RN followed by 2 attempts by Lizandro Wall RN vein access was obtained . a 4 slovenian 10 cm Non- PASC Midline was positioned. The procedure was performed in 462. Ultrasound was used to document vein patency and for needle entry. A formal ultrasound picture was recorded. [facility] [employer] Manager has released the line for use and it is currently dressed with a StatLock, Tegaderm, and CHG disc. Verification has been performed for blood return and line patency. Arm Circumference: 25.5 cm Equipment: BARD Power Midline Catheter Catheter Type: 4 slovenian 10 cm Non-PASV Midline Lot #: [id number]
[2024-02-11] MEDS: Insulin Lispro 100 UNIT/ML 3 ML VIAL SUBCUT ×2 (11:18→23:16)
[2024-02-11 11:23] LABS: Glucose, Whole Blood 217 mg/dL (60-115)
[2024-02-11 11:49] VITALS: BP 177/86; PULSE 86; RESP 20; TEMP 36.3; O2SAT 100
[2024-02-11 12:28] LABS: LDH Pleural Fluid 71
[2024-02-11] MEDS: Sodium Ferric Gluconat/Sucrose 125 MG in 0.9 % Sodium Chloride 100 ML 100 MG IV (12:34)
[2024-02-11] MEDS: amLODIPine Besylate 5 MG TABLET PO (12:38)
--- NOTE | 2024-02-11 13:03 | P.CNID_ITS ---
History of Present Illness Data of Consult Service Date: 02/10/24 Requesting physician: Saji Adams Primary Care Provider: Neelima Gómez MD HPI Reason for consult: MSSA bacteremia She presents with shortness of breath ,present over last week and worsening. She has MSSA bacteremia as well as thoracentesis due to large pleural effusion which is negative for empyema. She has head lice reported as well. SHe has chronic respiratory failure and CHF. TTE unremarkable. Review of Systems 2 Review of Systems: Yes all other systems are reviewed and are negative PMFSH Past Medical History Medical History Hypertension Symptomatic anemia Brain lesion Iron deficiency anemia HLD (hyperlipidemia) Anemia Depression Type 2 diabetes mellitus Family History Family History Other Hypertension Family history: reviewed and not pertinent Social History Social History Household Members: Family Household Members Other:: Daughter Housing: Apartment Do you presently have visiting nurse or other home services: No Unable to assess alcohol history related to: Unable to respond Alcohol intake: former Patient Tobacco Use Status: Never used Tobacco e-Cigarette/Vaping Use: Never Used Second Hand Smoke Exposure: No Advance Directives Date on File: 06/19/21 service: No Current occupational status: unemployed Meds Allergies Allergy/AdvReac Type Severity Reaction Status Date / Time shrimp Allergy Swelling Verified 02/07/24 17:47 Active Medications: Current Medications Acetaminophen (Acetaminophen 325 Mg Tablet) 975 mg PO Q6H PRN PRN Reason: Pain, Mild (Pain Scale 1-3), fever or headache Last Admin: 02/10/24 21:25 Dose: 975 mg Albuterol/Ipratropium (Albuterol/Iprat 2.5/0.5mg 3 Ml Ampul.Neb) 3 ml INHALE Q4H PRN PRN Reason: wheezing Last Admin: 02/09/24 04:06 Dose: 3 ml Amlodipine Besylate (Amlodipine Besylate 10 Mg Tablet) 10 mg PO DAILY JM; Protocol Aspirin (Aspirin Enteric Coated 81 Mg Tablet.) 81 mg PO DAILY@0900 [facility] Last Admin: 02/11/24 11:03 Dose: 81 mg Furosemide (Furosemide 100 Mg/10 Ml Vial) 40 mg IVPUSH BID@0900,1800 [facility]; Protocol Gabapentin (Gabapentin 100 Mg Capsule) 100 mg PO BEDTIME [facility] Last Admin: 02/10/24 21:25 Dose: 100 mg Glucose (Glucose Gel 15 Gm Gel..Gram.) 15 gm PO Q15M PRN; Protocol PRN Reason: per Hypoglycemia Standing Ord. Dextrose (D10) 250 mls @ 750 mls/hr IV Q15M PRN; Protocol PRN Reason: per Hypoglycemia Standing Ord. Ferric Sodium Gluconate Complex 125 mg/ Sodium Chloride 110 mls @ 100 mls/hr IV DAILY [facility] Stop: 02/12/24 10:05 Last Admin: 02/11/24 12:34 Dose: 100 mls/hr Cefazolin Sodium/Dextrose (Ancef) 2 gm in 50 mls @ 100 mls/hr IV Q8H [facility] Last Infusion: 02/11/24 11:38 Dose: Infused Insulin Glargine (Insulin Glargine,Hum.Rec.Anlog 100 Unit/Ml 10 Ml Vial) 5 unit SUBCUT BEDTIME [facility] Last Admin: 02/10/24 21:23 Dose: 5 unit Insulin Human Lispro (Insulin Lispro 100 Unit/Ml 3 Ml Vial) 0.1 - 10 unit SUBCUT Q6H [facility]; Protocol Last Admin: 02/11/24 11:18 Dose: 4 unit Magnesium Hydroxide (Milk Of Magnesia 30 Ml Oral.Susp) 30 ml PO DAILY PRN PRN Reason: Constipation Ondansetron HCl (Ondansetron Hcl 4 Mg/2 Ml Vial) 4 mg IVPUSH Q8H PRN PRN Reason: Nausea and Vomiting Sodium Chloride (0.9 % Sodium Chloride Flush 3 Ml Syringe) 3 ml IVFLUSH QSHIFT [facility] Last Admin: 02/11/24 11:09 Dose: 3 ml Sodium Chloride (0.9 % Sodium Chloride Flush 10 Ml Syringe) 5 ml IVFLUSH TID [facility] Home Medications ?Medication ?Instructions ?Recorded ?Confirmed ?Last Taken ?Type aspirin 81 mg tablet,delayed 1 tab PO DAILY@0900 07/21/22 02/08/24 02/07/24 History release Physical Exam 2 Vital Signs: Vital Signs: Last Vital Signs Temp 97.3 F 02/11/24 11:49 Pulse 86 02/11/24 11:49 Resp 20 02/11/24 11:49 BP 177/86 H 02/11/24 11:49 Pulse Ox 100 02/11/24 11:49 O2 Del Method Nasal Cannula 02/11/24 11:49 O2 Flow Rate 2 02/11/24 11:49 FiO2 40 02/07/24 20:14 BMI result Body Mass Index 25.7 Const: General: cooperative HEENT: Head: Yes normal to inspection Face and sinus: Yes normal facial exam Eyes: General: appearance normal, both eyes and all related structures P upils: Equal, round and reactive pupils present Resp: Effort & Inspection: normal respiratory effort Cardio: Rate: regular rate Rhythm: regular rhythm GI: Palpation (GI): Soft to palpation and nontender : General: Yes no CVA tenderness Back/Spine/Pelvis: Back: no CVA tenderness Skin: General skin exam: no rashes or lesions noted Neuro: General: moves all extremities Cranial nerves: Yes Equal, round and reactive pupils present Extrem: General: Yes normal to inspection Psych: Appearance: grossly normal Results Labs 02/11/24 06:07 02/11/24 06:07 Labs: Short CBC 02/11/24 Range/Units 06:07 WBC 7.2 (4.8-10.8) X10*3/uL Hgb 10.4 L (12.0-16.0) g/dl Hct 31.1 L (37.0-47.0) % Plt Count 185 (160-400) X10*3/uL BMP 02/11/24 06:07 Sodium 140 Potassium 3.7 Chloride 96 Carbon Dioxide 36 H BUN 23 H Creatinine 1.54 H Calcium 8.8 D Microbiology Microbiology Results: Microbiology 02/08/24 01:59 Thoracentesis Fluid Gram Stain - Final 02/08/24 01:59 Thoracentesis Fluid Routine Culture - Final No growth after 2 days 02/08/24 01:59 Thoracentesis Fluid Anaerobic Culture - Preliminary No growth to date. 02/08/24 16:24 Blood - Venous Blood Culture - Preliminary No growth after 48 hours. 02/08/24 16:24 Blood - Venous Blood Culture - Preliminary No growth after 48 hours. 02/07/24 18:39 Blood - Venous Blood Culture - Final Staphylococcus aureus 02/07/24 18:39 Blood - Venous Blood Culture - Final Staphylococcus aureus Assessment and Plan (1) MSSA bacteremia: Status: Acute (2) Pneumonia: Status: Acute Plan Would give IV Kefzol for four weeks, renal dose adjust.
[2024-02-11 15:58] VITALS: BP 173/80; PULSE 81; RESP 18; TEMP 36.9; O2SAT 100
[2024-02-11 17:03] LABS: Glucose, Whole Blood 137 mg/dL (60-115)
[2024-02-11] MEDS: Furosemide 100 MG/10 ML VIAL 40 MG IVPUSH (17:30)
[2024-02-11] MEDS: 0.9 % Sodium Chloride Flush 10 ML SYRINGE 5 ML IVFLUSH ×2 (17:32→23:17)
[2024-02-11 20:00] VITALS: BP 168/75; PULSE 85; RESP 20; TEMP 36.9; O2SAT 98
[2024-02-11 22:22] LABS: Glucose, Whole Blood 210 mg/dL (60-115)
[2024-02-11] MEDS: Acetaminophen 325 MG TABLET 975 MG PO (23:16)
[2024-02-11] MEDS: Gabapentin 100 MG CAPSULE PO (23:16)
[2024-02-11] MEDS: Insulin Glargine,Hum.rec.anlog 100 UNIT/ML 10 ML VIAL SUBCUT (23:17)
[2024-02-12] VITALS: BP 169/81; PULSE 86; RESP 16; TEMP 36.9; O2SAT 100
[2024-02-12 01:26] LABS: Appearance Urine Clear; Color Urine Yellow; Glucose Urine UA 100 mg/dL (Negative); Leukocyte Esterase Urine Trace (Negative); Nitrite Urine Negative (Negative); UMIC TRIGGER UACC YES; Urine Blood Negative (Negative); Urine Ketones Negative (Negative); Urine Protein 100 (2+) mg/dL (Neg-Trace)
[2024-02-12 01:46] LABS: Bacteria Urine None Seen (None Seen); Hyaline Casts Urine 0-2 /LPF (0-2); RBC Urine 0-2 /HPF (0-2); Squamous Epithelial Cell Urine 0-2 /HPF (0-2); WBC Urine 0-5 /HPF (0-5)
[2024-02-12 04:00] VITALS: BP 159/77; PULSE 79; RESP 16; TEMP 36.7; O2SAT 100
[2024-02-12 07:00] LABS: Hematocrit 30.6 % (37.0-47.0); Hemoglobin 10.1 g/dl (12.0-16.0); Mean Corpuscular Hemoglobin 28.7 pg (27.0-33.0); Mean Corpuscular Volume 86.9 fL (80.0-98.0); Mean Platelet Volume 9.1 fL (9.4-12.3); Platelet Count 206 X10*3/uL (160-400); Red Blood Count 3.52 X10*6/uL (4.20-5.50); Red Cell Distribution Width 14.3 % (11.0-16.0); White Blood Count 6.8 X10*3/uL (4.8-10.8)
[2024-02-12 07:14] LABS: Anion Gap 11 (12-20); Blood Urea Nitrogen 26 mg/dL (9-16); Calcium 8.6 mg/dL (8.4-10.2); Carbon Dioxide 34 mmol/L (22-29); Chloride 97 mmol/L (96-108); Creatinine Clr Calc Pharmacy 39.5; Estimated Glomerular Filt Rate 35; Glucose Random 92 mg/dL (60-115); Potassium 3.9 mmol/L (3.3-5.1); Sodium 138 mmol/L (135-145)
[2024-02-12 07:55] VITALS: BP 177/79; PULSE 87; RESP 17; TEMP 36.7; O2SAT 100
[2024-02-12 08:00] LABS: Glucose, Whole Blood 90 mg/dL (60-115)
[2024-02-12] MEDS: Furosemide 100 MG/10 ML VIAL 40 MG IVPUSH (08:53)
[2024-02-12] MEDS: Aspirin Enteric Coated 81 MG TABLET.DR PO (08:53)
[2024-02-12] MEDS: Enoxaparin Sodium 40 MG/0.4 ML SYRINGE SUBCUT (08:54)
[2024-02-12] MEDS: 0.9 % Sodium Chloride Flush 10 ML SYRINGE 5 ML IVFLUSH ×3 (08:54→21:41)
[2024-02-12] MEDS: 0.9 % Sodium Chloride Flush 3 ML SYRINGE IVFLUSH ×2 (08:54→16:56)
[2024-02-12] MEDS: Sodium Ferric Gluconat/Sucrose 125 MG in 0.9 % Sodium Chloride 100 ML 100 MG IV (08:56)
[2024-02-12] MEDS: Acetaminophen 325 MG TABLET 975 MG PO (09:07)
--- NOTE | 2024-02-12 09:20 | P.PNNP_ITS ---
Subjective Subjective Date of Service: 02/12/24 Interval history: Pt is a 53 y/o primarily Swedish-speaking female with a PMH of HFpEF, DMII (with lower extremity neuropathy), COPD (on home O2 2L NC), postural hypotension. admit 02/07 for multifactorial acute on chronic respiratory failure- PNA, pericardial effusion, acute on chronic diastolic HF pt had DILLON on admission- baseline creatinine 1.15, on admission 1.61 creatinine has come down slightly to 1.54 yesterday and today low sodium on admission (131)- yesterday 139, today 140 vanco troughs are elevated but trending down (vanco d/c'd and switched to cefazolin) at home she takes amlodipine 10mg for blood pressure control- currently prescribed amlodipine 5mg daily and furosemide 40mg IVP once daily; blood pressures elevated, 140s-150s this a.m. pt reports she is urinating comfortably without difficulty, denies flank pain (1850mL output over last 24 hours) she denies regular use of nsaids prior to admission reports her breathing continues to gradually improve she denies chest pain, dizziness, headache she denies abdominal pain denies new rash, joint pain Physical Exam 2 Vital Signs: Vital Signs: Last Vital Signs Temp 98.0 F 02/12/24 07:55 Pulse 87 02/12/24 07:55 Resp 17 02/12/24 07:55 BP 177/79 H 02/12/24 07:55 Pulse Ox 100 02/12/24 07:55 O2 Del Method Room Air 02/12/24 07:55 O2 Flow Rate 2 02/12/24 07:55 FiO2 40 02/07/24 20:14 BMI result Body Mass Index 25.7 Const: General: comfortable and no acute distress O rientation/consciousness: oriented to person, oriented to place and oriented to time Neck: Neck: Yes no JVD Resp: Effort & Inspection: able to speak in complete sentences A uscultation: crackles (bilateral mild crackles at posterior lung bases ) Cardio: Jugular venous distension: no JVD Rate: regular rate Rhythm: r egular rhythm Heart sounds: S1 normal heart sound present and S2 normal heart sound present GI: Palpation (GI): Soft to palpation Rectal Exam - Female: No tenderness : General: Yes no CVA tenderness Back/Spine/Pelvis: Back: no CVA tenderness Skin: Rashes: no rashes Neuro: General: oriented to person, oriented to place and oriented to time Extrem: General: Yes normal to inspection, No edema and No pedal edema Objective Data Labs 02/12/24 06:08 02/12/24 06:08 Labs: Laboratory Results - last 24 hr 02/08/24 02/11/24 02/11/24 01:59 11:14 16:59 WBC RBC Hgb Hct MCV MCH MCHC RDW Plt Count MPV Absolute Nucleated RBC Nucleated RBC % (auto) Sodium Potassium Chloride Carbon Dioxide Anion Gap BUN Creatinine Estim Creat Clear Calc Estimated GFR POC Glucose 217 H 137 H Random Glucose Calcium Urine Color Urine Appearance Urine pH Ur Specific [place] Urine Protein Urine Glucose (UA) Urine Ketones Urine Blood Urine Nitrite Ur Leukocyte Esterase Urine RBC Urine WBC Ur Squamous Epith Cells Urine Bacteria Hyaline Casts Urine Yeast Pleural LDH 71 02/11/24 02/12/24 02/12/24 22:15 01:15 06:08 WBC 6.8 RBC 3.52 L Hgb 10.1 L Hct 30.6 L MCV 86.9 MCH 28.7 MCHC 33.0 RDW 14.3 Plt Count 206 MPV 9.1 L Absolute Nucleated RBC 0.000 Nucleated RBC % (auto) 0.0 Sodium 138 Potassium 3.9 Chloride 97 Carbon Dioxide 34 H Anion Gap 11 L BUN 26 H Creatinine 1.54 H Estim Creat Clear Calc 39.5 Estimated GFR 35 POC Glucose 210 H Random Glucose 92 Calcium 8.6 Urine Color Yellow Urine Appearance Clear Urine pH 7.0 Ur Specific [place] 1.010 Urine Protein 100 (2+) H Urine Glucose (UA) 100 H Urine Ketones Negative Urine Blood Negative Urine Nitrite Negative Ur Leukocyte Esterase Trace H Urine RBC 0-2 Urine WBC 0-5 Ur Squamous Epith Cells 0-2 Urine Bacteria None Seen Hyaline Casts 0-2 Urine Yeast Present Pleural LDH 02/12/24 07:54 WBC RBC Hgb Hct MCV MCH MCHC RDW Plt Count MPV Absolute Nucleated RBC Nucleated RBC % (auto) Sodium Potassium Chloride Carbon Dioxide Anion Gap BUN Creatinine Estim Creat Clear Calc Estimated GFR POC Glucose 90 Random Glucose Calcium Urine Color Urine Appearance Urine pH Ur Specific [place] Urine Protein Urine Glucose (UA) Urine Ketones Urine Blood Urine Nitrite Ur Leukocyte Esterase Urine RBC Urine WBC Ur Squamous Epith Cells Urine Bacteria Hyaline Casts Urine Yeast Pleural LDH Microbiology Microbiology Results: Microbiology 02/08/24 01:59 Thoracentesis Fluid Gram Stain - Final 02/08/24 01:59 Thoracentesis Fluid Routine Culture - Final No growth after 2 days 02/08/24 01:59 Thoracentesis Fluid Anaerobic Culture - Preliminary No growth to date. 02/08/24 16:24 Blood - Venous Blood Culture - Preliminary No growth after 48 hours. 02/08/24 16:24 Blood - Venous Blood Culture - Preliminary No growth after 48 hours. 02/07/24 18:39 Blood - Venous Blood Culture - Final Staphylococcus aureus 02/07/24 18:39 Blood - Venous Blood Culture - Final Staphylococcus aureus Procedures Date of Service Date of Service: 02/12/24 Assessment & Plan Assessment and plan (1) Acute kidney injury: Status: Acute (2) Hypertension: Status: Acute (3) Acute on chronic heart failure with preserved ejection fraction (HFpEF): Status: Acute Plan DILLON likely tubular injury secondary to hypoperfusion from CHF exacerbation (likely precipitated by PNA) renal function has improved slightly she should be seen by nephrology outpatient in the next few weeks for continued monitoring recommend continue to monitor renal function, electrolytes, blood pressures optimize blood pressures- agree with increase to 10mg amlodipine daily today avoid nephrotoxic medications Will continue to follow Discussed with Dr Mills Time Spent With Patient Time: Total time managing care of this patient today ____ minutes. Progress Note: Quality Stroke Does the patient have a stroke diagnosis?: No
[2024-02-12] MEDS: amLODIPine Besylate 10 MG TABLET PO (09:53)
[2024-02-12] MEDS: ceFAZolin Sodium/Dextrose,Iso 2 GM/50 ML PIGGYBACK IV ×2 (09:58→16:55)
--- NOTE | 2024-02-12 10:53 | HO.PM.IMPN ---
Subjective Subjective Date of Service: 02/12/24 Interval History: sob improved Physical Exam Vital Signs: Vital Signs: Last Vital Signs Temp 98.0 F 02/12/24 07:55 Pulse 87 02/12/24 07:55 Resp 17 02/12/24 07:55 BP 177/79 H 02/12/24 07:55 Pulse Ox 100 02/12/24 07:55 O2 Del Method Room Air 02/12/24 07:55 O2 Flow Rate 2 02/12/24 07:55 FiO2 40 02/07/24 20:14 BMI result Body Mass Index 25.7 Const: General: comfortable and no acute distress Orientation/consciousness: oriented to person, oriented to place and oriented to time Neck: Neck: Yes no JVD Resp: Effort & Inspection: able to speak in complete sentences Auscultation: crackles (bilateral crackles at posterior lung bases ) Cardio: Jugular venous distension: no JVD Rate: regular rate Rhythm: regular rhythm Heart sounds: S1 normal heart sound present and S2 normal heart sound present GI: Palpation (GI): Soft to palpation Rectal Exam - Female: No tenderness : General: Yes no CVA tenderness Back/Spine/Pelvis: Back: no CVA tenderness Skin: Rashes: no rashes Neuro: General: oriented to person, oriented to place and oriented to time Extrem: General: Yes normal to inspection, No edema and No pedal edema Objective Data Active Medications Acetaminophen (Acetaminophen 325 Mg Tablet) 975 mg PO Q6H PRN PRN Reason: Pain, Mild (Pain Scale 1-3), fever or headache Last Admin: 02/12/24 09:07 Dose: 975 mg Documented By: BRUNO Albuterol/Ipratropium (Albuterol/Iprat 2.5/0.5mg 3 Ml Ampul.Neb) 3 ml INHALE Q4H PRN PRN Reason: wheezing Last Admin: 02/09/24 04:06 Dose: 3 ml Documented By: ELIDIA Amlodipine Besylate (Amlodipine Besylate 10 Mg Tablet) 10 mg PO DAILY [facility]; Protocol Last Admin: 02/12/24 09:53 Dose: 10 mg Documented By: BRUNO Aspirin (Aspirin Enteric Coated 81 Mg Tablet.Dr) 81 mg PO DAILY@0900 [facility] Last Admin: 02/12/24 08:53 Dose: 81 mg Documented By: BRUNO Enoxaparin Sodium (Enoxaparin Sodium 40 Mg/0.4 Ml Syringe) 40 mg SUBCUT Q24H [facility] Last Admin: 02/12/24 08:54 Dose: 40 mg Documented By: BRUNO Furosemide (Furosemide 100 Mg/10 Ml Vial) 40 mg IVPUSH BID@0900,1800 [facility]; Protocol Last Admin: 02/12/24 08:53 Dose: 40 mg Documented By: BRUNO Gabapentin (Gabapentin 100 Mg Capsule) 100 mg PO BEDTIME [facility] Last Admin: 02/11/24 23:16 Dose: 100 mg Documented By: MARIA FERNANDA Glucose (Glucose Gel 15 Gm Gel..Gram.) 15 gm PO Q15M PRN; Protocol PRN Reason: per Hypoglycemia Standing Ord. Dextrose (D10) 250 mls @ 750 mls/hr IV Q15M PRN; Protocol PRN Reason: per Hypoglycemia Standing Ord. Cefazolin Sodium/Dextrose (Ancef) 2 gm in 50 mls @ 100 mls/hr IV Q8H [facility] Last Infusion: 02/12/24 10:28 Dose: Infused Documented By: BRUNO Insulin Glargine (Insulin Glargine,Hum.Rec.Anlog 100 Unit/Ml 10 Ml Vial) 5 unit SUBCUT BEDTIME [facility] Last Admin: 02/11/24 23:17 Dose: 5 unit Documented By: MARIA FERNANDA Insulin Human Lispro (Insulin Lispro 100 Unit/Ml 3 Ml Vial) 0.1 - 10 unit SUBCUT Q6H [facility]; Protocol Last Admin: 02/12/24 05:00 Dose: Not Given Documented By: MARIA FERNANDA Non-Admin Reason: See Note Magnesium Hydroxide (Milk Of Magnesia 30 Ml Oral.Susp) 30 ml PO DAILY PRN PRN Reason: Constipation Ondansetron HCl (Ondansetron Hcl 4 Mg/2 Ml Vial) 4 mg IVPUSH Q8H PRN PRN Reason: Nausea and Vomiting Sodium Chloride (0.9 % Sodium Chloride Flush 3 Ml Syringe) 3 ml IVFLUSH QSHIFT [facility] Last Admin: 02/12/24 08:54 Dose: 3 ml Documented By: BRUNO Sodium Chloride (0.9 % Sodium Chloride Flush 10 Ml Syringe) 5 ml IVFLUSH TID [facility] Last Admin: 02/12/24 08:54 Dose: 5 ml Documented By: CANNLYM Labs 02/12/24 06:08 02/12/24 06:08 Labs: Laboratory Results - last 24 hr 02/08/24 02/11/24 02/11/24 01:59 11:14 16:59 MCV MCH MCHC RDW Plt Count MPV Absolute Nucleated RBC Nucleated RBC % (auto) Anion Gap Estim Creat Clear Calc Estimated GFR POC Glucose 217 H 137 H Random Glucose Calcium Urine Color Urine Appearance Urine pH Ur Specific [place] Urine Protein Urine Glucose (UA) Urine Ketones Urine Blood Urine Nitrite Ur Leukocyte Esterase Urine RBC Urine WBC Ur Squamous Epith Cells Urine Bacteria Hyaline Casts Urine Yeast Pleural LDH 71 02/11/24 02/12/24 02/12/24 22:15 01:15 06:08 MCV 86.9 MCH 28.7 MCHC 33.0 RDW 14.3 Plt Count 206 MPV 9.1 L Absolute Nucleated RBC 0.000 Nucleated RBC % (auto) 0.0 Anion Gap 11 L Estim Creat Clear Calc 39.5 Estimated GFR 35 POC Glucose 210 H Random Glucose 92 Calcium 8.6 Urine Color Yellow Urine Appearance Clear Urine pH 7.0 Ur Specific [place] 1.010 Urine Protein 100 (2+) H Urine Glucose (UA) 100 H Urine Ketones Negative Urine Blood Negative Urine Nitrite Negative Ur Leukocyte Esterase Trace H Urine RBC 0-2 Urine WBC 0-5 Ur Squamous Epith Cells 0-2 Urine Bacteria None Seen Hyaline Casts 0-2 Urine Yeast Present Pleural LDH 02/12/24 07:54 MCV MCH MCHC RDW Plt Count MPV Absolute Nucleated RBC Nucleated RBC % (auto) Anion Gap Estim Creat Clear Calc Estimated GFR POC Glucose 90 Random Glucose Calcium Urine Color Urine Appearance Urine pH Ur Specific [place] Urine Protein Urine Glucose (UA) Urine Ketones Urine Blood Urine Nitrite Ur Leukocyte Esterase Urine RBC Urine WBC Ur Squamous Epith Cells Urine Bacteria Hyaline Casts Urine Yeast Pleural LDH Microbiology Microbiology Results: Microbiology 02/08/24 01:59 Gram Stain - Final Thoracentesis Fluid Routine Culture - Final No growth after 2 days Anaerobic Culture - Preliminary No growth to date. Assessment and Plan (1) Acute hypokalemia: Status: Acute (2) MSSA bacteremia: Status: Acute (3) Acute hyponatremia: Status: Acute (4) Pneumonia: Status: Acute (5) Acute on chronic anemia: Status: Acute Plan 53F PMH COPD, - prn home O2 2L/min HFrEF, type 2 diabetes mellitus presented with sob Acute on chronic hypoxic respiratory failure 2/2 Acute on chronic systolic CHF, large bilateral pleural effusions, multilevel lung pneumonia Complicated with MSSA Bacteremia Improving blood cultures growing MSSA dc IV Zosyn and Vancomycin , start Cefazoline (Neg Cx 02/07) TTE showing mild reduction in EF 45-50% with no vegetations ID input appreciated , 2 weeks Cefazolin Right sided thoracentesis by ED -1,200 ml IR removed 500 cc from left side effusion Thoracic surgery consult, Left side thora Placed Midline PT recommending STR Acute on chronic anemia Hb improved to 10.4 post 1 unit PRBCs inflammatory and iron deficiency Acute kidney injury on CKD3 stable at 1.6 Avoid nephrotoxic agents [place] [facility] [place] following Acute hypokalemia replacement given [place] [facility] [place] will order second dose of premitherin Essential hypertension Continue amlodipine Type 2 diabetes mellitus SSI, POC DVT prophylaxis: Lovenox Code status: Full reason for continued hospitalization:awaiting placement Quality Stroke Does the patient have a stroke diagnosis?: No VTE Prior VTE?: No VTE Risk Level:: Medical - moderate - high VTE Device Contraindication: Treatment Not Indicated VTE Drug Contraindication: N/A - Med Ordered
--- NOTE | 2024-02-12 11:09 | MHC.CM.PN ---
Per MD rounds, patient will receive another treatment for Lice today. PT evaluation recommendation is STR. [facility] and [facility] are following for completed treatment of Lice. A message has been sent to the facilities. They have been notified of additional RX. DP STR via BLS.
[2024-02-12 11:50] LABS: Glucose, Whole Blood 211 mg/dL (60-115)
[2024-02-12 11:51] VITALS: BP 142/76; PULSE 78; RESP 18; TEMP 36.2; O2SAT 95
[2024-02-12] MEDS: Insulin Lispro 100 UNIT/ML 3 ML VIAL SUBCUT (12:17)
[2024-02-12] MEDS: Permethrin 1 % Lotion 59 ML BTL 1 APPL TOPICAL (12:17)
[2024-02-12 15:34] VITALS: BP 152/84; PULSE 83; RESP 19; TEMP 36.8; O2SAT 96
[2024-02-12 17:03] LABS: Glucose, Whole Blood 141 mg/dL (60-115)
[2024-02-12 20:03] VITALS: BP 162/82; PULSE 89; RESP 20; TEMP 36.9; O2SAT 95
[2024-02-12 21:27] LABS: Glucose, Whole Blood 241 mg/dL (60-115)
[2024-02-12] MEDS: Insulin Glargine,Hum.rec.anlog 100 UNIT/ML 10 ML VIAL SUBCUT (21:40)
[2024-02-12] MEDS: Gabapentin 100 MG CAPSULE PO (21:40)
[2024-02-13] VITALS (8 sets, daily range): BP systolic 140–174; BP diastolic 70–87; PULSE 81–92; RESP 18–20; TEMP 36.2–36.7; O2SAT 94–98
[2024-02-13 00:34] LABS: Glucose, Whole Blood 196 mg/dL (60-115)
[2024-02-13] MEDS: Insulin Lispro 100 UNIT/ML 3 ML VIAL SUBCUT ×3 (01:02→17:06)
[2024-02-13] MEDS: ceFAZolin Sodium/Dextrose,Iso 2 GM/50 ML PIGGYBACK IV ×3 (01:02→17:07)
[2024-02-13 05:50] LABS: Glucose, Whole Blood 97 mg/dL (60-115)
[2024-02-13 07:12] LABS: Hematocrit 30.2 % (37.0-47.0); Hemoglobin 9.8 g/dl (12.0-16.0); Mean Corpuscular HGB Conc 32.5 g/dl (31.0-35.0); Mean Corpuscular Hemoglobin 28.1 pg (27.0-33.0); Mean Corpuscular Volume 86.5 fL (80.0-98.0); Mean Platelet Volume 8.3 fL (9.4-12.3); Platelet Count 189 X10*3/uL (160-400); Red Blood Count 3.49 X10*6/uL (4.20-5.50); Red Cell Distribution Width 13.9 % (11.0-16.0); White Blood Count 6.5 X10*3/uL (4.8-10.8)
[2024-02-13 07:32] LABS: Anion Gap 10 (12-20); Blood Urea Nitrogen 32 mg/dL (9-16); Calcium 8.8 mg/dL (8.4-10.2); Carbon Dioxide 34 mmol/L (22-29); Chloride 97 mmol/L (96-108); Creatinine Clr Calc Pharmacy 35.2; Estimated Glomerular Filt Rate 31; Glucose Fasting 95 mg/dL (60-99); Potassium 3.8 mmol/L (3.3-5.1); Sodium 137 mmol/L (135-145)
--- NOTE | 2024-02-13 09:45 | HO.PM.IMPN ---
Subjective Subjective Date of Service: 02/13/24 Interval History: Feels well Physical Exam Vital Signs: Vital Signs: Last Vital Signs Temp 98.1 F 02/13/24 08:00 Pulse 91 02/13/24 08:00 Resp 19 02/13/24 08:00 BP 162/87 H 02/13/24 08:00 Pulse Ox 95 02/13/24 08:00 O2 Del Method Room Air 02/13/24 04:00 O2 Flow Rate 2 02/12/24 07:55 FiO2 40 02/07/24 20:14 BMI result Body Mass Index 25.7 Const: General: comfortable and no acute distress Orientation/consciousness: oriented to person, oriented to place and oriented to time Neck: Neck: Yes no JVD Resp: Effort & Inspection: able to speak in complete sentences Auscultation: crackles (bilateral crackles at posterior lung bases ) Cardio: Jugular venous distension: no JVD Rate: regular rate Rhythm: regular rhythm Heart sounds: S1 normal heart sound present and S2 normal heart sound present GI: Palpation (GI): Soft to palpation Rectal Exam - Female: No tenderness : General: Yes no CVA tenderness Back/Spine/Pelvis: Back: no CVA tenderness Skin: Rashes: no rashes Neuro: General: oriented to person, oriented to place and oriented to time Extrem: General: Yes normal to inspection, No edema and No pedal edema Objective Data Active Medications Acetaminophen (Acetaminophen 325 Mg Tablet) 975 mg PO Q6H PRN PRN Reason: Pain, Mild (Pain Scale 1-3), fever or headache Last Admin: 02/12/24 09:07 Dose: 975 mg Documented By: BRUNO Albuterol/Ipratropium (Albuterol/Iprat 2.5/0.5mg 3 Ml Ampul.Neb) 3 ml INHALE Q4H PRN PRN Reason: wheezing Last Admin: 02/09/24 04:06 Dose: 3 ml Documented By: ELIDIA Amlodipine Besylate (Amlodipine Besylate 10 Mg Tablet) 10 mg PO DAILY [facility]; Protocol Last Admin: 02/12/24 09:53 Dose: 10 mg Documented By: BRUNO Aspirin (Aspirin Enteric Coated 81 Mg Tablet.Dr) 81 mg PO DAILY@0900 [facility] Last Admin: 02/12/24 08:53 Dose: 81 mg Documented By: BRUNO Enoxaparin Sodium (Enoxaparin Sodium 40 Mg/0.4 Ml Syringe) 40 mg SUBCUT Q24H [facility] Last Admin: 02/12/24 08:54 Dose: 40 mg Documented By: BRUNO Furosemide (Furosemide 20 Mg Tablet) 20 mg PO DAILY [facility]; Protocol Gabapentin (Gabapentin 100 Mg Capsule) 100 mg PO BEDTIME [facility] Last Admin: 02/12/24 21:40 Dose: 100 mg Documented By: MIRANDA Glucose (Glucose Gel 15 Gm Gel..Gram.) 15 gm PO Q15M PRN; Protocol PRN Reason: per Hypoglycemia Standing Ord. Dextrose (D10) 250 mls @ 750 mls/hr IV Q15M PRN; Protocol PRN Reason: per Hypoglycemia Standing Ord. Cefazolin Sodium/Dextrose (Ancef) 2 gm in 50 mls @ 100 mls/hr IV Q8H [facility] Last Infusion: 02/13/24 02:45 Dose: Infused Documented By: MIRANDA Insulin Glargine (Insulin Glargine,Hum.Rec.Anlog 100 Unit/Ml 10 Ml Vial) 5 unit SUBCUT BEDTIME [facility] Last Admin: 02/12/24 21:40 Dose: 5 unit Documented By: MIRANDA Insulin Human Lispro (Insulin Lispro 100 Unit/Ml 3 Ml Vial) 0.1 - 10 unit SUBCUT Q6H [facility]; Protocol Last Admin: 02/13/24 06:19 Dose: Not Given Documented By: MIRANDA Non-Admin Reason: No Insulin Coverage Magnesium Hydroxide (Milk Of Magnesia 30 Ml Oral.Susp) 30 ml PO DAILY PRN PRN Reason: Constipation Ondansetron HCl (Ondansetron Hcl 4 Mg/2 Ml Vial) 4 mg IVPUSH Q8H PRN PRN Reason: Nausea and Vomiting Sodium Chloride (0.9 % Sodium Chloride Flush 3 Ml Syringe) 3 ml IVFLUSH QSHIFT [facility] Last Admin: 02/12/24 21:41 Dose: Not Given Documented By: MIRANDA Non-Admin Reason: Duplicate Order Sodium Chloride (0.9 % Sodium Chloride Flush 10 Ml Syringe) 5 ml IVFLUSH TID [facility] Last Admin: 02/12/24 21:41 Dose: 5 ml Documented By: MIRANDA Labs 02/13/24 06:14 02/13/24 06:14 Labs: Laboratory Results - last 24 hr 02/12/24 02/12/24 02/12/24 11:47 16:59 21:11 MCV MCH MCHC RDW Plt Count MPV Absolute Nucleated RBC Nucleated RBC % (auto) Anion Gap Estim Creat Clear Calc Estimated GFR POC Glucose 211 H 141 H 241 H Fasting Glucose Calcium 02/13/24 02/13/24 02/13/24 00:30 05:46 06:14 MCV 86.5 MCH 28.1 MCHC 32.5 RDW 13.9 Plt Count 189 MPV 8.3 L Absolute Nucleated RBC 0.000 Nucleated RBC % (auto) 0.0 Anion Gap 10 L Estim Creat Clear Calc 35.2 Estimated GFR 31 POC Glucose 196 H 97 Fasting Glucose 95 Calcium 8.8 Microbiology Microbiology Results: Microbiology 02/08/24 01:59 Gram Stain - Final Thoracentesis Fluid Routine Culture - Final No growth after 2 days Anaerobic Culture - Preliminary No growth to date. Assessment and Plan (1) Acute hypokalemia: Status: Acute (2) MSSA bacteremia: Status: Acute (3) Acute hyponatremia: Status: Acute (4) Pneumonia: Status: Acute (5) Acute on chronic anemia: Status: Acute Plan 53F PMH COPD, - prn home O2 2L/min HFrEF, type 2 diabetes mellitus presented with sob Acute on chronic hypoxic respiratory failure 2/2 Acute on chronic systolic CHF, large bilateral pleural effusions, multilevel lung pneumonia Complicated with MSSA Bacteremia Improving blood cultures growing MSSA Cefazoline (Neg Cx 02/07) , end 03/06/2024 TTE showing mild reduction in EF 45-50% with no vegetations ID input appreciated , 2 weeks Cefazolin Right sided thoracentesis by ED -1,200 ml IR removed 500 cc from left side effusion Thoracic surgery consult, Left side thora Placed Midline PT recommending STR Acute on chronic anemia Hb improved to 10.4 post 1 unit PRBCs inflammatory and iron deficiency Acute kidney injury on CKD3 stable around 1.5-2 Avoid nephrotoxic agents Follow [facility] following Acute hypokalemia replacement given follow [facility] Lice will order 3rd dose of premitherin Essential hypertension Continue amlodipine Type 2 diabetes mellitus SSI, POC DVT prophylaxis: Lovenox Code status: Full reason for continued hospitalization:awaiting placement Quality Stroke Does the patient have a stroke diagnosis?: No VTE Prior VTE?: No VTE Risk Level:: Medical - moderate - high VTE Device Contraindication: Treatment Not Indicated VTE Drug Contraindication: N/A - Med Ordered
--- NOTE | 2024-02-13 09:58 | P.PNNP_ITS ---
Subjective Subjective Date of Service: 02/13/24 Interval history: Pt is a 53 y/o primarily Bengali-speaking female with a PMH of HFpEF, DMII (with lower extremity neuropathy), COPD (on home O2 2L NC), postural hypotension. admit 02/07 for multifactorial acute on chronic respiratory failure- PNA, pericardial effusion, acute on chronic diastolic HF pt had DILLON on admission- baseline creatinine 1.15, on admission 1.61 creatinine has been between 1.54 and 1.74 since admission (slight bump from 1.54 yesterday to 1.74 today) low sodium on admission (131), since remains within normal limits, today 137 vanco troughs are elevated but trending down (vanco d/c'd and switched to cefazolin) taking 10mg amlodipine and 20mg PO furosemide (furosemide restarted today); BP 162/87 this a.m. pt reports she is urinating comfortably without difficulty, denies flank pain (1140mL output over last 24 hours) she denies regular use of nsaids prior to admission reports her breathing continues to gradually improve she denies chest pain, dizziness, headache she denies abdominal pain denies new rash, joint pain Physical Exam 2 Vital Signs: Vital Signs: Last Vital Signs Temp 98.1 F 02/13/24 08:00 Pulse 91 02/13/24 08:00 Resp 19 02/13/24 08:00 BP 162/87 H 02/13/24 08:00 Pulse Ox 95 02/13/24 08:00 O2 Del Method Room Air 02/13/24 04:00 O2 Flow Rate 2 02/12/24 07:55 FiO2 40 02/07/24 20:14 BMI result Body Mass Index 25.7 Const: General: comfortable and no acute distress O rientation/consciousness: oriented to person, oriented to place and oriented to time Neck: Neck: Yes no JVD Resp: Effort & Inspection: able to speak in complete sentences A uscultation: crackles (bilateral mild crackles at posterior lung bases ) Cardio: Jugular venous distension: no JVD Rate: regular rate Rhythm: r egular rhythm Heart sounds: S1 normal heart sound present and S2 normal heart sound present GI: Palpation (GI): Soft to palpation Rectal Exam - Female: No tenderness : General: Yes no CVA tenderness Back/Spine/Pelvis: Back: no CVA tenderness Skin: Rashes: no rashes Neuro: General: oriented to person, oriented to place and oriented to time Extrem: General: Yes normal to inspection, No edema and No pedal edema Objective Data Labs 02/13/24 06:14 02/13/24 06:14 Labs: Laboratory Results - last 24 hr 02/12/24 02/12/24 02/12/24 11:47 16:59 21:11 WBC RBC Hgb Hct MCV MCH MCHC RDW Plt Count MPV Absolute Nucleated RBC Nucleated RBC % (auto) Sodium Potassium Chloride Carbon Dioxide Anion Gap BUN Creatinine Estim Creat Clear Calc Estimated GFR POC Glucose 211 H 141 H 241 H Fasting Glucose Calcium 02/13/24 02/13/24 02/13/24 00:30 05:46 06:14 WBC 6.5 RBC 3.49 L Hgb 9.8 L Hct 30.2 L MCV 86.5 MCH 28.1 MCHC 32.5 RDW 13.9 Plt Count 189 MPV 8.3 L Absolute Nucleated RBC 0.000 Nucleated RBC % (auto) 0.0 Sodium 137 Potassium 3.8 Chloride 97 Carbon Dioxide 34 H Anion Gap 10 L BUN 32 H Creatinine 1.73 H Estim Creat Clear Calc 35.2 Estimated GFR 31 POC Glucose 196 H 97 Fasting Glucose 95 Calcium 8.8 Microbiology Microbiology Results: Microbiology 02/08/24 01:59 Thoracentesis Fluid Gram Stain - Final 02/08/24 01:59 Thoracentesis Fluid Routine Culture - Final No growth after 2 days 02/08/24 01:59 Thoracentesis Fluid Anaerobic Culture - Preliminary No growth to date. 02/08/24 16:24 Blood - Venous Blood Culture - Preliminary No growth after 48 hours. 02/08/24 16:24 Blood - Venous Blood Culture - Preliminary No growth after 48 hours. 02/07/24 18:39 Blood - Venous Blood Culture - Final Staphylococcus aureus 02/07/24 18:39 Blood - Venous Blood Culture - Final Staphylococcus aureus Procedures Date of Service Date of Service: 02/13/24 Assessment & Plan Assessment and plan (1) Acute kidney injury: Status: Acute (2) Hypertension: Status: Acute (3) Acute on chronic heart failure with preserved ejection fraction (HFpEF): Status: Acute Plan DILLON likely tubular injury secondary to hypoperfusion from CHF exacerbation (likely precipitated by PNA); also likely vanco-induced tubular injury renal function remains stable she should be seen by nephrology outpatient in the next few weeks for continued monitoring recommend continue to monitor renal function, electrolytes, blood pressures optimize blood pressures- agree with furosemide 20mg daily in addition to amlodipine 10mg daily recommend avoiding IVP blood pressure medication as mild creatinine bump may have been due to recent aggressive diuresis with IVP medication avoid nephrotoxic medications Discussed with Dr Whittington Time Spent With Patient Time: Total time managing care of this patient today ____ minutes. Progress Note: Quality Stroke Does the patient have a stroke diagnosis?: No
[2024-02-13] MEDS: Permethrin 1 % Lotion 59 ML BTL 1 APPL TOPICAL (10:50)
[2024-02-13] MEDS: Enoxaparin Sodium 40 MG/0.4 ML SYRINGE SUBCUT (10:50)
[2024-02-13] MEDS: Furosemide 20 MG TABLET PO (10:51)
[2024-02-13] MEDS: amLODIPine Besylate 10 MG TABLET PO (10:51)
[2024-02-13] MEDS: Aspirin Enteric Coated 81 MG TABLET.DR PO (10:51)
[2024-02-13] MEDS: 0.9 % Sodium Chloride Flush 10 ML SYRINGE 5 ML IVFLUSH ×3 (10:52→21:44)
[2024-02-13] MEDS: 0.9 % Sodium Chloride Flush 3 ML SYRINGE IVFLUSH ×2 (10:52→17:06)
[2024-02-13 12:37] LABS: Glucose, Whole Blood 193 mg/dL (60-115)
[2024-02-13 17:01] LABS: Glucose, Whole Blood 314 mg/dL (60-115)
[2024-02-13] MEDS: Gabapentin 100 MG CAPSULE PO (21:32)
[2024-02-13] MEDS: Insulin Glargine,Hum.rec.anlog 100 UNIT/ML 10 ML VIAL SUBCUT (21:32)
[2024-02-13 23:50] LABS: Glucose, Whole Blood 280 mg/dL (60-115)
[2024-02-14] MEDS: Insulin Lispro 100 UNIT/ML 3 ML VIAL SUBCUT ×2 (00:45→12:40)
[2024-02-14] MEDS: 0.9 % Sodium Chloride Flush 3 ML SYRINGE IVFLUSH ×3 (00:45→12:40)
[2024-02-14] MEDS: ceFAZolin Sodium/Dextrose,Iso 2 GM/50 ML PIGGYBACK IV ×2 (00:45→08:09)
[2024-02-14 03:34] VITALS: BP 141/67; PULSE 83; RESP 18; TEMP 36.1; O2SAT 99
[2024-02-14 06:48] LABS: Glucose, Whole Blood 160 mg/dL (60-115)
[2024-02-14 06:53] LABS: Creatinine Clr Calc Pharmacy 35.4; Estimated Glomerular Filt Rate 31
[2024-02-14 07:36] VITALS: BP 149/71; PULSE 81; RESP 18; TEMP 36.4; O2SAT 99
[2024-02-14] MEDS: Enoxaparin Sodium 40 MG/0.4 ML SYRINGE SUBCUT (08:00)
[2024-02-14] MEDS: amLODIPine Besylate 10 MG TABLET PO (08:01)
[2024-02-14] MEDS: Aspirin Enteric Coated 81 MG TABLET.DR PO (08:01)
[2024-02-14] MEDS: Furosemide 20 MG TABLET PO (08:01)
--- NOTE | 2024-02-14 08:25 | P.PNNP_ITS ---
Subjective Subjective Date of Service: 02/14/24 Interval history: Pt is a 53 y/o primarily Turkish-speaking female with a PMH of HFpEF, DMII (with lower extremity neuropathy), COPD (on home O2 2L NC), postural hypotension. admit 02/07 for multifactorial acute on chronic respiratory failure- PNA, pericardial effusion, acute on chronic diastolic HF pt had DILLON on admission- baseline creatinine 1.15, on admission 1.61 creatinine has been fairly stable since admission, most recent 1..72 today (1.73 yesterday) low sodium on admission (131), since remains within normal limits, today 137 vanco troughs are elevated but trending down (vanco d/c'd and switched to cefazolin) taking 10mg amlodipine and 20mg PO furosemide (furosemide restarted today); BP 149/71 this a.m. pt reports she is urinating comfortably without difficulty, denies flank pain (1140mL output over last 24 hours) she denies regular use of nsaids prior to admission reports her breathing continues to gradually improve she denies chest pain, dizziness, headache she denies abdominal pain denies new rash, joint pain Physical Exam 2 Vital Signs: Vital Signs: Last Vital Signs Temp 97.5 F 02/14/24 07:36 Pulse 81 02/14/24 07:36 Resp 18 02/14/24 07:36 BP 149/71 H 02/14/24 07:36 Pulse Ox 99 02/14/24 07:36 O2 Del Method Room Air 02/14/24 07:36 O2 Flow Rate 2 02/12/24 07:55 FiO2 40 02/07/24 20:14 BMI result Body Mass Index 25.7 Const: General: comfortable and no acute distress O rientation/consciousness: oriented to person, oriented to place and oriented to time Neck: Neck: Yes no JVD Resp: Effort & Inspection: able to speak in complete sentences A uscultation: crackles (bilateral mild crackles at posterior lung bases ) Cardio: Jugular venous distension: no JVD Rate: regular rate Rhythm: r egular rhythm Heart sounds: S1 normal heart sound present and S2 normal heart sound present GI: Palpation (GI): Soft to palpation Rectal Exam - Female: No tenderness : General: Yes no CVA tenderness Back/Spine/Pelvis: Back: no CVA tenderness Skin: Rashes: no rashes Neuro: General: oriented to person, oriented to place and oriented to time Extrem: General: Yes normal to inspection, No edema and No pedal edema Objective Data Labs 02/13/24 06:14 02/14/24 05:45 Labs: Laboratory Results - last 24 hr 02/13/24 02/13/24 02/13/24 12:21 16:52 23:44 Creatinine Estim Creat Clear Calc Estimated GFR POC Glucose 193 H 314 H 280 H 02/14/24 02/14/24 05:45 06:44 Creatinine 1.72 H Estim Creat Clear Calc 35.4 Estimated GFR 31 POC Glucose 160 H Microbiology Microbiology Results: Microbiology 02/08/24 16:24 Blood - Venous Blood Culture - Final No growth after 5 days. 02/08/24 16:24 Blood - Venous Blood Culture - Final No growth after 5 days. 02/08/24 01:59 Thoracentesis Fluid Gram Stain - Final 02/08/24 01:59 Thoracentesis Fluid Routine Culture - Final No growth after 2 days 02/08/24 01:59 Thoracentesis Fluid Anaerobic Culture - Final NO GROWTH AFTER 5 DAYS 02/07/24 18:39 Blood - Venous Blood Culture - Final Staphylococcus aureus 02/07/24 18:39 Blood - Venous Blood Culture - Final Staphylococcus aureus Procedures Date of Service Date of Service: 02/14/24 Assessment & Plan Assessment and plan (1) Acute kidney injury: Status: Acute (2) Hypertension: Status: Acute (3) Acute on chronic heart failure with preserved ejection fraction (HFpEF): Status: Acute Plan DILLON likely tubular injury secondary to hypoperfusion from CHF exacerbation (likely precipitated by PNA); also likely vanco-induced tubular injury renal function remains stable she should be seen by nephrology outpatient in the next few weeks for continued monitoring recommend continue to monitor renal function, electrolytes, blood pressures optimize blood pressures- agree with current blood pressure medication regimen, she should follow up outpatient for continued optimization recommend avoiding IVP blood pressure medication as mild creatinine bump may have been due to recent aggressive diuresis with IVP medication avoid nephrotoxic medications Discussed with Dr Whittington Time Spent With Patient Time: Total time managing care of this patient today ____ minutes. Progress Note: Quality Stroke Does the patient have a stroke diagnosis?: No
--- NOTE | 2024-02-14 08:54 | HO.PM.IMPN ---
Subjective Subjective Date of Service: 02/14/24 Interval History: Feels well Physical Exam Vital Signs: Vital Signs: Last Vital Signs Temp 97.5 F 02/14/24 07:36 Pulse 81 02/14/24 07:36 Resp 18 02/14/24 07:36 BP 149/71 H 02/14/24 07:36 Pulse Ox 99 02/14/24 07:36 O2 Del Method Room Air 02/14/24 07:36 O2 Flow Rate 2 02/12/24 07:55 FiO2 40 02/07/24 20:14 BMI result Body Mass Index 25.7 Const: General: comfortable and no acute distress Orientation/consciousness: oriented to person, oriented to place and oriented to time Neck: Neck: Yes no JVD Resp: Effort & Inspection: able to speak in complete sentences Cardio: Jugular venous distension: no JVD Rate: regular rate Rhythm: regular rhythm Heart sounds: S1 normal heart sound present and S2 normal heart sound present GI: Palpation (GI): Soft to palpation Rectal Exam - Female: No tenderness : General: Yes no CVA tenderness Back/Spine/Pelvis: Back: no CVA tenderness Skin: Rashes: no rashes Neuro: General: oriented to person, oriented to place and oriented to time Extrem: General: Yes normal to inspection, No edema and No pedal edema Objective Data Active Medications Acetaminophen (Acetaminophen 325 Mg Tablet) 975 mg PO Q6H PRN PRN Reason: Pain, Mild (Pain Scale 1-3), fever or headache Last Admin: 02/12/24 09:07 Dose: 975 mg Albuterol/Ipratropium (Albuterol/Iprat 2.5/0.5mg 3 Ml Ampul.Neb) 3 ml INHALE Q4H PRN PRN Reason: wheezing Last Admin: 02/09/24 04:06 Dose: 3 ml Documented By: ELIDIA Amlodipine Besylate (Amlodipine Besylate 10 Mg Tablet) 10 mg PO DAILY [facility]; Protocol Last Admin: 02/14/24 08:01 Dose: 10 mg Documented By: POLLO Aspirin (Aspirin Enteric Coated 81 Mg Tablet.) 81 mg PO DAILY@0900 [facility] Last Admin: 02/14/24 08:01 Dose: 81 mg Documented By: POLLO Enoxaparin Sodium (Enoxaparin Sodium 40 Mg/0.4 Ml Syringe) 40 mg SUBCUT Q24H [facility] Last Admin: 02/14/24 08:00 Dose: 40 mg Documented By: POLLO Furosemide (Furosemide 20 Mg Tablet) 20 mg PO DAILY [facility]; Protocol Last Admin: 02/14/24 08:01 Dose: 20 mg Documented By: POLLO Gabapentin (Gabapentin 100 Mg Capsule) 100 mg PO BEDTIME [facility] Last Admin: 02/13/24 21:32 Dose: 100 mg Documented By: MIRANDA Glucose (Glucose Gel 15 Gm Gel..Gram.) 15 gm PO Q15M PRN; Protocol PRN Reason: per Hypoglycemia Standing Ord. Dextrose (D10) 250 mls @ 750 mls/hr IV Q15M PRN; Protocol PRN Reason: per Hypoglycemia Standing Ord. Cefazolin Sodium/Dextrose (Ancef) 2 gm in 50 mls @ 100 mls/hr IV Q8H [facility] Last Admin: 02/14/24 08:09 Dose: 100 mls/hr Documented By: POLLO Insulin Glargine (Insulin Glargine,Hum.Rec.Anlog 100 Unit/Ml 10 Ml Vial) 5 unit SUBCUT BEDTIME [facility] Last Admin: 02/13/24 21:32 Dose: 5 unit Documented By: MIRANDA Insulin Human Lispro (Insulin Lispro 100 Unit/Ml 3 Ml Vial) 0.1 - 10 unit SUBCUT Q6H [facility]; Protocol Last Admin: 02/14/24 06:19 Dose: Not Given Documented By: MIRANDA Non-Admin Reason: No Insulin Coverage Magnesium Hydroxide (Milk Of Magnesia 30 Ml Oral.Susp) 30 ml PO DAILY PRN PRN Reason: Constipation Ondansetron HCl (Ondansetron Hcl 4 Mg/2 Ml Vial) 4 mg IVPUSH Q8H PRN PRN Reason: Nausea and Vomiting Sodium Chloride (0.9 % Sodium Chloride Flush 3 Ml Syringe) 3 ml IVFLUSH QSHIFT [facility] Last Admin: 02/14/24 08:09 Dose: 3 ml Documented By: POLLO Sodium Chloride (0.9 % Sodium Chloride Flush 10 Ml Syringe) 5 ml IVFLUSH TID [facility] Last Admin: 02/13/24 21:44 Dose: 5 ml Documented By: MIRANDA Labs 02/13/24 06:14 02/14/24 05:45 Labs: Laboratory Results - last 24 hr 02/13/24 02/13/24 02/13/24 12:21 16:52 23:44 Estim Creat Clear Calc Estimated GFR POC Glucose 193 H 314 H 280 H 02/14/24 02/14/24 05:45 06:44 Estim Creat Clear Calc 35.4 Estimated GFR 31 POC Glucose 160 H Microbiology Microbiology Results: Microbiology 02/08/24 16:24 Blood Culture - Final Blood - Venous No growth after 5 days. 02/08/24 16:24 Blood Culture - Final Blood - Venous No growth after 5 days. 02/08/24 01:59 Gram Stain - Final Thoracentesis Fluid Routine Culture - Final No growth after 2 days Anaerobic Culture - Final NO GROWTH AFTER 5 DAYS Assessment and Plan (1) Acute hypokalemia: Status: Acute (2) MSSA bacteremia: Status: Acute (3) Acute hyponatremia: Status: Acute (4) Pneumonia: Status: Acute (5) Acute on chronic anemia: Status: Acute Plan 53F PMH COPD, - prn home O2 2L/min HFrEF, type 2 diabetes mellitus presented with sob Acute on chronic hypoxic respiratory failure 2/2 Acute on chronic systolic CHF, large bilateral pleural effusions, multilevel lung pneumonia Complicated with MSSA Bacteremia Improved blood cultures growing MSSA Cefazoline (Neg Cx 02/07) , end 03/06/2024 TTE showing mild reduction in EF 45-50% with no vegetations ID input appreciated , 4 weeks Cefazolin Right sided thoracentesis by ED -1,200 ml - no growth, likely transudate IR removed 500 cc from left side effusion Placed Midline PT recommending STR Acute on chronic anemia Hb improved to 10.4 post 1 unit PRBCs inflammatory and iron deficiency Acute kidney injury on CKD3 stable around 1.5-2 Avoid nephrotoxic agents Follow BMP Nephrology following Acute hypokalemia replacement given follow BMP Lice s/p 3 doses of premitherin no further lice seen Essential hypertension Continue amlodipine Type 2 diabetes mellitus SSI, POC DVT prophylaxis: Lovenox Code status: Full reason for continued hospitalization:awaiting placement Quality Stroke Does the patient have a stroke diagnosis?: No VTE Prior VTE?: No VTE Risk Level:: Medical - moderate - high VTE Device Contraindication: Treatment Not Indicated VTE Drug Contraindication: N/A - Med Ordered
--- NOTE | 2024-02-14 09:15 | P.DS_ITS ---
DS: Providers Provider Date of Service: 02/14/24 Date of admission: 02/08/24 00:16 Date of discharge: 02/14/24 Primary care physician: Neelima Gómez MD Consults: 02/08/24 07:00 Consult to Thoracic Surgery Routine Consulting Provider: Nicanor Reid Reason for consultation: Bilateral large pleural effusions s/p unilateral thoracentesis Has provider been notified: No 02/09/24 11:06 Consult to Infectious Diseases Routine Consulting Provider: [facility] Reason for consultation: Staph Bacteremia 02/11/24 07:54 Consult to Nephrology Routine Consulting Provider: [facility] Reason for consultation: DILLON on CKD, DS: Diagnosis Discharge Diagnosis (1) Acute hypokalemia: Status: Acute (2) MSSA bacteremia: Status: Acute (3) Acute hyponatremia: Status: Acute (4) Pneumonia: Status: Acute (5) Acute on chronic anemia: Status: Acute DS: Summary Hospital Course Hospital Course: from initial hpi: 53 years old woman with past medical history significant for HFpEF, type 2 diabetes mellitus, COPD -home O2 2L/min and postural hypotension presents to the emergency department complaining of worsening shortness on breath since morning associated with productive cough and dizziness. She does have worsening swelling to the lower extremities. Patient is a very poor historian and seems to have some degree of confusion. She did not report chest pain, palpitations, fevers chills. She did not report any acute gastrointestinal or genitourinary symptom. Patient was hospitalized on January 22 with diagnosis of hypertensive urgency. In the ED, she was found to have tachypnea, low O2 sats while receiving supplemental oxygen 10 liters/minutes via OxyMask. She was placed on BiPAP for several hours. Her blood workup is remarkable for leukocytosis of 13.8, h emoglobin of 8.5 and normal platelets. Venous blood gas showed no respiratory acidosis. There is mild hyponatremia, creatinine is 1.61 and BUN 20. LFTs are normal and BNP is 334. Viral testing for COVID-19, influenza and RSV is negative. Chest CTA showed large bilateral pleural effusion with collapse/consolidation of lower lobes as well as right middle lobe and lingula, ground-glass infiltrates in both upper lobes, cardiomegaly with tiny pleural effusion and mild anasarca. ECG showed accelerated junctional rhythm. ED tx: Acetaminophen 975 mg p.o., ibuprofen 600 mg p.o., ceftriaxone 1 g IV, Lasix 80 mg IV, albuterol 7.5 mg inhaled, hospital course: Patient was admitted for acute on chronic hypoxic respiratory failure secondary to acute on chronic systolic CHF and large bilateral pleural effusions further complicated by multilobar pneumonia and MSSA bacteremia. Patient was treated with cefazolin, cultures cleared on 02/08/2024 and will continue cefazolin 2 g Q 8 until 03/06/2024. Echo showed EF of 45-50% with no vegetations. Patient underwent bilateral thoracentesis with no growth, likely transudate. Patient was weaned to room air. Midline placed. Seen by physical therapy recommended short-term rehab. Course complicated by acute on chronic anemia likely combination of inflammatory and chronic iron deficiency anemia. Hemoglobin improved and remained stable after 1 unit of PRBC. For acute kidney injury on CKD 3 she returned to baseline of a creatinine around 1.5-2. For acute hypokalemia received replacement. On presentation patient noted to have lice. Underwent 3 treatments with permethrin and no further lice seen. For hypertension was continued on amlodipine. For diabetes was continued on insulin sliding scale. Time Attestation Discharge Coordination Time (in mins): 33 Quality: Safe Use of Opioids Does Pt have an Active Cancer Diagnosis on the Problem List?: No Quality: Stroke Does the patient have a stroke diagnosis?: No Physical Exam Vital Signs: Vital Signs: Last Vital Signs Temp 97.5 F 02/14/24 07:36 Pulse 81 02/14/24 07:36 Resp 18 02/14/24 07:36 BP 149/71 H 02/14/24 07:36 Pulse Ox 99 02/14/24 07:36 O2 Del Method Room Air 02/14/24 07:36 O2 Flow Rate 2 02/12/24 07:55 FiO2 40 02/07/24 20:14 BMI result Body Mass Index 25.7 General: AO X 3, no acute distress Resp: CTA bilateral, no accessory muscles used CVS: S1,S2,RRR GI: soft, non tender, non distended Neuro: motor grossly intact, alert Psych: appropriate affect, appropriate insight DS: Data Data Completed and Pending Completed studies during hospitalization [Text1]: Procedures Transfusion of Nonautologous Red Blood Cells into Peripheral Vein, Percutaneous Approach (12/17/22) Labs on day of discharge: Laboratory Results - last 24 hr 02/13/24 02/13/24 02/13/24 12:21 16:52 23:44 Creatinine Estim Creat Clear Calc Estimated GFR POC Glucose 193 H 314 H 280 H 02/14/24 02/14/24 05:45 06:44 Creatinine 1.72 H Estim Creat Clear Calc 35.4 Estimated GFR 31 POC Glucose 160 H Discharge Plan Discharge Anticipated Discharge Date/Time: 02/14/24 09:11 Patient Disposition: Xfer SNF Discharge Diagnosis: chf, pna, mssa bacteremia Referrals: [facility] [Outside[facility] - [facility] - 1 Week Discharge Medications: New furosemide 20 mg Tablet 20 mg PO DAILY Qty: 0 0RF Protocol: Hold for SBP< HOLD for SBP < : 90 cefazolin in dextrose (iso-os) 2 gram/50 mL Piggyback 50 ml IV Q8H Qty: 0 0RF Rx Instructions: end mar 06, 2024 Continued aspirin 81 mg tablet,delayed release (DR/EC) 1 tab PO DAILY@0900 (DME) FreeStyle Test Strip See Rx Instructions .Route Qty: 100 0RF Rx Instructions: As directed amlodipine 10 mg Tablet 10 mg PO DAILY Qty: 30 0RF Protocol: Hold for SBP< HOLD for SBP < : 90 gabapentin 100 mg Capsule 100 mg PO BEDTIME Qty: 90 0RF insulin glargine [Lantus U-100 Insulin] 100 unit/mL Solution 10 unit subcut BEDTIME Qty: 10 0RF potassium chloride [K-Tab] 20 mEq tablet extended release 20 meq PO DAILY Qty: 20 0RF Discharge Orders: Discharge Order (Routine); Ordered 02/14/24 Ordered By: Azeem Kaet Diet: Advance to usual diet Activity on Discharge: As tolerated Stand Alone Forms: Patient Portal Discharge page Print Language: Northern Irish Care Plan Goals: recovery Health Concerns: Bacteremia Plan of Treatment: IV cefazolin 2 g q.8 until 03/06/2024 Assessment: See above
--- NOTE | 2024-02-14 10:28 | MHC.CM.PN ---
Per ROUNDS discussion, Patient is medically cleared for dc to SNF/STR today. [facility] is checking for female bed availability and 5 more referrals have been added. CM will follow.
[2024-02-14 11:01] LABS: Glucose, Whole Blood 272 mg/dL (60-115)
--- NOTE | 2024-02-14 11:18 | MHC.CM.PN ---
Patient has been medically cleared for dc to SNF/STR today. CM met with Patient at bedside, with the assist of a [facility] Public Address Servicer and Patient has accepted a bed offer from [facility]. CM also spoke with Son/Bin @ [phone], and informed him of the dc plan. Patient will dc to [facility] today at 2:30, via [facility].
[2024-02-14 11:28] VITALS: BP 154/70; PULSE 93; RESP 18; TEMP 36.7; O2SAT 95
[2024-02-14] MEDS: 0.9 % Sodium Chloride Flush 10 ML SYRINGE 5 ML IVFLUSH (12:41)
== END 2024-02-14 15:10 | disposition skilled nursing facility (03) | DRG 194 ==
LOC: HO.ED 18:52 → HO.EDOVER 02-08 02:02 → HO.IMC 02-08 07:32
PROVIDERS: Nurse Practitioner Family; Physician Assistant Surgical; Student in an Organized Health Care Education/Training Program; Admitting Provider Internal Medicine; Emergency Provider Internal Medicine; PCP Internal Medicine; Referring Provider Nurse Practitioner Primary Care; Visit Provider Internal Medicine
DX: I13.0 Hypertensive heart and chronic kidney disease with heart failure and stage 1 through stage 4 chronic kidney disease, or unspecified chronic kidney disease (principal); J96.21 Acute and chronic respiratory failure with hypoxia; N17.0 Acute kidney failure with tubular necrosis; J18.9 Pneumonia, unspecified organism; R78.81 Bacteremia; J91.8 Pleural effusion in other conditions classified elsewhere; E87.1 Hypo-osmolality and hyponatremia; J44.0 Chronic obstructive pulmonary disease with (acute) lower respiratory infection; E11.22 Type 2 diabetes mellitus with diabetic chronic kidney disease; E11.40 Type 2 diabetes mellitus with diabetic neuropathy, unspecified; Z99.81 Dependence on supplemental oxygen; I50.33 Acute on chronic diastolic (congestive) heart failure; E87.6 Hypokalemia; T36.8X5A Adverse effect of other systemic antibiotics, initial encounter; B85.0 Pediculosis due to Pediculus humanus capitis; E78.5 Hyperlipidemia, unspecified; N18.30 Chronic kidney disease, stage 3 unspecified; D50.0 Iron deficiency anemia secondary to blood loss (chronic); B95.61 Methicillin susceptible Staphylococcus aureus infection as the cause of diseases classified elsewhere; Z20.822 Contact with and (suspected) exposure to COVID-19; Z79.4 Long term (current) use of insulin; Z79.82 Long term (current) use of aspirin; Z79.899 Other long term (current) drug therapy
CPT/HCPCS: 0241U; 32555; 36410; 36415; 71045; 71250; 80048; 80053; 80202; 81001; 82565; 82803; 82947; 83540; 83605; 83615; 83735; 83880; 84484; 85025; 85027; 85610; 86850; 86900; 86901; 86923; 87040; 87070; 87073; 87077; 87186; 87205; 89051; 93005; 93306; 94640; 94660; 97162; 99285; C1751; C1758; C1894; J0690; J0696; J1644; J1650; J1940; J2003; J2543; J2916; J3370; P9016; Q9957

== ENCOUNTER → 2024-02-07 18:51 | Outpatient (BNV) | payer MEDICAID, SELFPAY | PROVIDERS: Emergency Provider Internal Medicine; Visit Provider Internal Medicine | DX: E87.6 Hypokalemia (principal); R78.81 Bacteremia; B95.61 Methicillin susceptible Staphylococcus aureus infection as the cause of diseases classified elsewhere; E87.1 Hypo-osmolality and hyponatremia | CPT/HCPCS: 99223; 99232; 99233; 99239; 99499 ==

== ENCOUNTER 2024-02-08 00:16 | Outpatient (BNV) | payer MEDICAID, SELFPAY | END 2024-02-10 08:00 | PROVIDERS: Admitting Provider Internal Medicine; Emergency Provider Internal Medicine; PCP Internal Medicine; Visit Provider Radiology Diagnostic Radiology | DX: J90 Pleural effusion, not elsewhere classified (principal) | CPT/HCPCS: 32555 ==

== ENCOUNTER 2024-02-08 00:16 | Outpatient (BNV) | payer MEDICAID, SELFPAY | END 2024-02-10 07:00 | PROVIDERS: Admitting Provider Internal Medicine; Emergency Provider Internal Medicine; PCP Internal Medicine; Visit Provider Internal Medicine Cardiovascular Disease | DX: I50.33 Acute on chronic diastolic (congestive) heart failure (principal) | CPT/HCPCS: 93306 ==

== ENCOUNTER → 2024-02-08 00:16 | Outpatient (BNV) | payer MEDICAID, SELFPAY | PROVIDERS: Admitting Provider Internal Medicine; Emergency Provider Internal Medicine; PCP Internal Medicine; Visit Provider Internal Medicine | DX: R78.81 Bacteremia (principal); B95.61 Methicillin susceptible Staphylococcus aureus infection as the cause of diseases classified elsewhere; J18.9 Pneumonia, unspecified organism | CPT/HCPCS: 99222 ==

== ENCOUNTER → 2024-02-08 00:16 | Outpatient (BNV) | payer MEDICAID, SELFPAY | PROVIDERS: Admitting Provider Internal Medicine; Emergency Provider Internal Medicine; PCP Internal Medicine; Visit Provider Nurse Practitioner Family | DX: N17.9 Acute kidney failure, unspecified (principal); I11.0 Hypertensive heart disease with heart failure; I50.33 Acute on chronic diastolic (congestive) heart failure | CPT/HCPCS: 99222; 99232 ==

== ENCOUNTER → 2024-02-08 00:16 | Outpatient (BNV) | payer MEDICAID, SELFPAY | PROVIDERS: Admitting Provider Internal Medicine; Emergency Provider Internal Medicine; Visit Provider Surgery | DX: J18.9 Pneumonia, unspecified organism (principal); D64.9 Anemia, unspecified | CPT/HCPCS: 99223; 99232 ==

== ENCOUNTER 2024-03-20 13:55 | Outpatient (REF) | payer MEDICAID, SELFPAY ==
[2024-03-20 16:14] LABS: Anion Gap 13 (12-20); Blood Urea Nitrogen 21 mg/dL (9-16); Calcium 9.2 mg/dL (8.4-10.2); Carbon Dioxide 23 mmol/L (22-29); Chloride 107 mmol/L (96-108); Estimated Glomerular Filt Rate 35; Glucose Random 192 mg/dL (60-115); Potassium 3.7 mmol/L (3.3-5.1); Sodium 139 mmol/L (135-145)
== END 2024-03-20 13:56 | disposition home or self-care (01) ==
LOC: HO.HHCL 13:55
PROVIDERS: Visit Provider Internal Medicine
DX: E87.5 Hyperkalemia (principal)
CPT/HCPCS: 36415; 80048

== ENCOUNTER 2024-03-25 22:40 | Emergency (ER) | payer MEDICAID, SELFPAY ==
[2024-03-25 23:03] VITALS: BP 128/82; PULSE 88; O2SAT 95
[2024-03-25 23:07] VITALS: BP 149/64; PULSE 87; RESP 13; TEMP 36.8; O2SAT 95; BMI 24.9
--- NOTE | 2024-03-25 23:21 | MHC.EDTECH ---
Patient was biba from home ,vitals taken ,Patient was hooked up to school bus monitor ,and change into hospital attire ,All safety measure in Place .
[2024-03-25 23:27] VITALS: BP 148/75; PULSE 86; RESP 16; TEMP 36.8; O2SAT 93
--- NOTE | 2024-03-25 23:41 | MHC.EDTECH ---
Labs drawn and sent to lab .
[2024-03-25 23:43] LABS: Basophils Percent Auto 0.4 % (0-2); Eosinophils Absolute Auto 0.1 X10*3/uL (0.0-0.4); Eosinophils Percent Auto 1.4 % (0-4); Hematocrit 26.2 % (37.0-47.0); Hemoglobin 9.3 g/dl (12.0-16.0); Imm Gran Abs Auto 0.03 X10*3/uL (0.00-0.03); Imm Gran Pct Auto 0.4 % (0.0-0.4); Lymphocytes Absolute Auto 2.1 X10*3/uL (1.2-4.9); Lymphocytes Percent Auto 24.1 % (20-40); MANUAL DIFF FLAG NO; Mean Corpuscular HGB Conc 35.5 g/dl (31.0-35.0); Mean Corpuscular Hemoglobin 28.4 pg (27.0-33.0); Mean Corpuscular Volume 80.1 fL (80.0-98.0); Mean Platelet Volume 8.6 fL (9.4-12.3); Monocytes Absolute Auto 0.4 X10*3/uL (0.1-1.2); Monocytes Percent Auto 4.3 % (2-11); Neutrophils Percent Auto 69.4 % (45-73); Platelet Count 178 X10*3/uL (160-400); Red Blood Count 3.27 X10*6/uL (4.20-5.50); Red Cell Distribution Width 14.6 % (11.0-16.0); White Blood Count 8.6 X10*3/uL (4.8-10.8)
[2024-03-25 23:58] LABS: Anion Gap 15 (12-20); Blood Urea Nitrogen 19 mg/dL (9-16); Calcium 8.6 mg/dL (8.4-10.2); Carbon Dioxide 23 mmol/L (22-29); Chloride 98 mmol/L (96-108); Creatinine Clr Calc Pharmacy 42.2; Estimated Glomerular Filt Rate 39; Glucose Random 166 mg/dL (60-115); Potassium 3.8 mmol/L (3.3-5.1); Sodium 132 mmol/L (135-145)
[2024-03-26 00:06] LABS: Appearance Urine Cloudy; Color Urine Yellow; Glucose Urine UA 100 mg/dL (Negative); Leukocyte Esterase Urine Large (3+) (Negative); Nitrite Urine Negative (Negative); PH 5.5 (5.0-9.0); Specific Gravity - Urine <= 1.005 (1.005-1.025); UMIC TRIGGER UACC YES; Urine Blood Small (1+) (Negative); Urine Ketones Negative (Negative); Urine Protein 300 (3+) mg/dL (Neg-Trace)
[2024-03-26 00:11] LABS: Bacteria Urine 4+ (None Seen); UACC Culture Trigger YES; WBC Urine >50 /HPF (0-5)
[2024-03-26 01:54] VITALS: BP 163/76; PULSE 90; RESP 16; TEMP 36.6; O2SAT 94
--- NOTE | 2024-03-26 01:58 | PC.NURSE ---
pt reporting increased abdominal pain. Awaiting ED provider
--- NOTE | 2024-03-26 03:09 | ED_ITS ---
HPI - Abdominal Pain General Chief Complaint: Abdominal Pain Stated Complaint: Lower abd pain, const x4 days, hx HTN Time Seen by Provider: 03/26/24 03:08 Source: patient Mode of arrival: EMS Limitations: language barrier ( patient's 1st language is Yi, she does understands some [place], iPad landscape drafter was used) History of Present Illness ED Provider: Dr. Kamlesh Matson HPI narrative: 53-year-old female history of anemia, hypertensive urgency, heart failure, hypertension, orthostatic hypotension, depression who presents emergency department for evaluation lower abdominal pain, nausea, vomiting x2 days and no bowel movement times 10 days. Patient states she has had multiple episodes of emesis. She states she is constant nausea is having difficulty eating secondary to her nausea. Patient points to her left lower quadrant when asked to localize her abdominal pain. She describes his pain is a constant pressure-like pain which is 9/10 at its worst. She states she has had similar pain in the past. She denied fever, chills, chest pain, shortness of breath, frequency, urgency, dysuria. Related Data Home Medications ?Medication ?Instructions ?Recorded ?Confirmed aspirin 81 mg tablet,delayed 1 tab PO DAILY@0900 07/21/22 02/08/24 release Previous Rx's ?Medication ?Instructions ?Recorded blood sugar diagnostic (FreeStyle #100 ea 10/02/22 Test strips) amlodipine 10 mg tablet 10 mg PO DAILY #30 tabs 09/19/23 gabapentin 100 mg capsule 100 mg PO BEDTIME #90 caps 01/14/24 insulin glargine 100 unit/mL 10 unit (0.1 mL) subcut BEDTIME 01/14/24 subcutaneous solution (Lantus #10 mL U-100 Insulin) potassium chloride 20 mEq 20 meq PO DAILY #20 tabs 01/26/24 tablet,extended release (K-Tab) cefazolin 2 gram/50 mL in dextrose 50 ml IV Q8H #0 ea 02/14/24 (iso-osmotic) intravenous piggyback furosemide 20 mg tablet 20 mg PO DAILY #0 tabs 02/14/24 lactulose 10 gram/15 mL oral 10 g (15 mL) PO BID PRN 03/26/24 solution constipation #473 mL ondansetron 4 mg disintegrating 4 mg PO Q6-8H PRN nausea and 03/26/24 tablet vomiting #14 tabs Allergies Allergy/AdvReac Type Severity Reaction Status Date / Time shrimp Allergy Swelling Verified 03/25/24 23:07 Review of Systems Review of Systems Yes all other systems are reviewed and are negative [facility] Past Medical History Medical History Hypertension Symptomatic anemia Brain lesion Iron deficiency anemia HLD (hyperlipidemia) Anemia Depression Type 2 diabetes mellitus Family History Family History Other Hypertension Social History Social History Household Members: Family Household Members Other:: Daughter Housing: Apartment Do you presently have visiting nurse or other home services: No Unable to assess alcohol history related to: Unable to respond Alcohol intake: former Patient Tobacco Use Status: Never used Tobacco Smoked in Last 30 Days: No e-Cigarette/Vaping Use: Never Used Second Hand Smoke Exposure: No Advance Directives: Yes Advance Directives on File: Yes Advance Directives Date on File: 06/19/21 Do you have a plan to hurt others: No Plan service: No Current occupational status: unemployed Physical Exam ED Vital Signs: Vital Signs - 24 hr 03/25/24 23:07 03/25/24 23:27 03/26/24 01:54 Temperature 98.2 F 98.3 F 97.9 F Pulse Rate 87 86 90 Respiratory Rate 13 16 16 Blood Pressure 149/64 H 148/75 H 163/76 H Pulse Oximetry 95 93 94 Oxygen Delivery Method Room Air Room Air Room Air 03/26/24 03:53 03/26/24 06:30 03/26/24 07:43 Temperature 98.6 F 98.3 F 98.3 F Pulse Rate 92 91 91 Respiratory Rate 16 16 16 Blood Pressure 158/78 H 159/72 H 159/72 H Pulse Oximetry 93 94 94 Oxygen Delivery Method Room Air Room Air Room Air BMI result Body Mass Index 24.9 vital signs revealed elevated blood pressures otherwise unremarkable. Exam: General: Awake, alert in no distress Head: Normocephalic, atraumatic EENT: PERRL, Lids normal, sclera normal, conjunctiva normal, nose normal , ears normal, throat without erythema or exudates Neck: Supple, no adenopathy Lung: breath sounds symmetric, no wheezing, rales or rhonchi Chest: symmetric movement, nontender Heart: regular rate and rhythm, normal S1, S2 no murmurs or rubs Abdomen: soft, moderate left lower quadrant tenderness, mild diffuse tenderness, no rebound, nondistended, normal bowel sounds rectal: Soft brown stool, no impaction, stool was Hemoccult negative Back: no vertebral tenderness, no CVAT Extremities: Trace to 1+ pitting edema, bilaterally symmetric, patient is able to lift her legs up against gravity but does have weakness which she states is chronic Neuro: Awake, alert, oriented, normal speech, cranial nerves intact, moves all extremities symmetrically Psych: Pleasant, cooperative Medical Decision Making Medical Decision Making [facility] Narrative: 53-year-old female history of anemia, hypertensive urgency, heart failure, hypertension, orthostatic hypotension, depression who presents emergency department for evaluation lower abdominal pain, nausea, vomiting x2 days and no bowel movement times 10 days. vital signs revealed elevated blood pressures otherwise unremarkable. Physical examination did reveal moderate right lower quadrant tenderness with mild diffuse tenderness. Rectal exam revealed no impaction, she had brown stool which was Hemoccult negative. Differential diagnosis: Includes but is not limited to pancreatitis, diverticulitis, constipation, urinary tract infection, anemia, electrolyte abnormalities Course: do My interpretation patient's laboratory evaluation is as follows: normal sick anemia with an H&H of 9.3 and 26.2 -this is chronic. Sodium low 132. Creatinine elevated 1.59-chronic. Glucose elevated 166. Patient's pain is consistent with constipation. She was given a soapsuds enema with only minimal bowel movement but she is feeling better. She was prescribed lactulose 15 mL b.i.d. as needed for constipation. She was also prescribe Zofran 4 mg ODT every 6 hours as needed for nausea and vomiting. She was given Toradol 15 mg IV and Zofran 4 mg IV with improvement of her pain. She did have a brief episode of hypoxia and was given oxygen but did not require oxygen at the time of discharge. Admission/Observation Consideration of admission/observation: Escalation of care including admission/observation considered ( yes) Lab Data [facility] Lab Attestation statement: I reviewed the patient's lab results. 03/25/24 23:40 03/25/24 23:40 Labs: Lab Results 03/25/24 03/25/24 03/26/24 Range/Units 23:40 23:49 03:52 WBC 8.6 (4.8-10.8) X10*3/uL RBC 3.27 L (4.20-5.50) X10*6/uL Hgb 9.3 L (12.0-16.0) g/dl Hct 26.2 L (37.0-47.0) % MCV 80.1 (80.0-98.0) fL MCH 28.4 (27.0-33.0) pg MCHC 35.5 H (31.0-35.0) g/dl RDW 14.6 (11.0-16.0) % Plt Count 178 (160-400) X10*3/uL MPV 8.6 L (9.4-12.3) fL Immature Gran % (Auto) 0.4 (0.0-0.4) % Neut % (Auto) 69.4 (45-73) % Lymph % (Auto) 24.1 (20-40) % Hughes % (Auto) 4.3 (2-11) % Eos % (Auto) 1.4 (0-4) % Baso % (Auto) 0.4 (0-2) % Lymph # (Auto) 2.1 (1.2-4.9) X10*3/uL Hughes # (Auto) 0.4 (0.1-1.2) X10*3/uL Eos # (Auto) 0.1 (0.0-0.4) X10*3/uL Baso # (Auto) 0.0 (0.0-0.2) X10*3/uL Abs Immat Gran (auto) 0.03 (0.00-0.03) X10*3/uL Absolute Neuts (auto) 6.0 (2.0-8.3) x10*3/uL Absolute Nucleated RBC 0.000 (0.0-0.012) X10*3/uL Nucleated RBC % (auto) 0.0 (0.0-0.2) /100WBC Sodium 132 L (135-145) mmol/L Potassium 3.8 (3.3-5.1) mmol/L Chloride 98 (96-108) mmol/L Carbon Dioxide 23 (22-29) mmol/L Anion Gap 15 (12-20) BUN 19 H (9-16) mg/dL Creatinine 1.42 H (0.5-1.4) mg/dL Estim Creat Clear Calc 42.2 Estimated GFR 39 POC Glucose (60-115) mg/dL Random Glucose 166 H (60-115) mg/dL Calcium 8.6 D (8.4-10.2) mg/dL Total Bilirubin 0.3 (0.0-1.0) mg/dL Direct Bilirubin 0.1 (0.0-0.5) mg/dL AST 18 (5-31) U/L ALT < 6 (0-31) U/L Alkaline Phosphatase 77 (39-117) U/L Total Protein 6.9 (6.5-8.0) g/dL Albumin 3.2 L (3.5-5.0) g/dL Lipase 22 (8-78) U/L Urine Color Yellow Urine Appearance Cloudy Urine pH 5.5 (5.0-9.0) Ur Specific [place] <= 1.005 (1.005-1.025) Urine Protein 300 (3+) H (Neg-Trace) mg/dL Urine Glucose (UA) 100 H (Negative) mg/dL Urine Ketones Negative (Negative) mg/dL Urine Blood Small (1+) H (Negative) Urine Nitrite Negative (Negative) Ur Leukocyte Esterase Large (3+) H (Negative) Urine RBC 6-10 H (0-2) /HPF Urine WBC >50 H (0-5) /HPF Ur Squamous Epith Cells 6-10 (0-2) /HPF Urine Bacteria 4+ (None Seen) Hyaline Casts 3-5 (0-2) /LPF Stool Occult Blood NEGATIVE (NEGATIVE) 03/26/24 Range/Units 07:10 WBC (4.8-10.8) X10*3/uL RBC (4.20-5.50) X10*6/uL Hgb (12.0-16.0) g/dl Hct (37.0-47.0) % MCV (80.0-98.0) fL MCH (27.0-33.0) pg MCHC (31.0-35.0) g/dl RDW (11.0-16.0) % Plt Count (160-400) X10*3/uL MPV (9.4-12.3) fL Immature Gran % (Auto) (0.0-0.4) % Neut % (Auto) (45-73) % Lymph % (Auto) (20-40) % Hughes % (Auto) (2-11) % Eos % (Auto) (0-4) % Baso % (Auto) (0-2) % Lymph # (Auto) (1.2-4.9) X10*3/uL Hughes # (Auto) (0.1-1.2) X10*3/uL Eos # (Auto) (0.0-0.4) X10*3/uL Baso # (Auto) (0.0-0.2) X10*3/uL Abs Immat Gran (auto) (0.00-0.03) X10*3/uL Absolute Neuts (auto) (2.0-8.3) x10*3/uL Absolute Nucleated RBC (0.0-0.012) X10*3/uL Nucleated RBC % (auto) (0.0-0.2) /100WBC Sodium (135-145) mmol/L Potassium (3.3-5.1) mmol/L Chloride (96-108) mmol/L Carbon Dioxide (22-29) mmol/L Anion Gap (12-20) BUN (9-16) mg/dL Creatinine (0.5-1.4) mg/dL Estim Creat Clear Calc Estimated GFR POC Glucose 118 H (60-115) mg/dL Random Glucose (60-115) mg/dL Calcium (8.4-10.2) mg/dL Total Bilirubin (0.0-1.0) mg/dL Direct Bilirubin (0.0-0.5) mg/dL AST (5-31) U/L ALT (0-31) U/L Alkaline Phosphatase (39-117) U/L Total Protein (6.5-8.0) g/dL Albumin (3.5-5.0) g/dL Lipase (8-78) U/L Urine Color Urine Appearance Urine pH (5.0-9.0) Ur Specific [place] (1.005-1.025) Urine Protein (Neg-Trace) mg/dL Urine Glucose (UA) (Negative) mg/dL Urine Ketones (Negative) mg/dL Urine Blood (Negative) Urine Nitrite (Negative) Ur Leukocyte Esterase (Negative) Urine RBC (0-2) /HPF Urine WBC (0-5) /HPF Ur Squamous Epith Cells (0-2) /HPF Urine Bacteria (None Seen) Hyaline Casts (0-2) /LPF Stool Occult Blood (NEGATIVE) Prescription Management I considered prescription management with: Other ( lactulose, Zofran) Chronic Conditions Patient?s care impacted by: Hypertension Medications Administered Discontinued Medications Generic Name Dose Route Start Last Admin Trade Name Freq PRN Reason Stop Dose Admin Ketorolac Tromethamine 15 mg 03/26/24 03:28 03/26/24 03:45 Ketorolac Tromethamine 15 Mg/Ml Vial IVPUSH 03/26/24 03:29 15 mg ONCE STA Administration Ondansetron HCl 4 mg 03/26/24 03:28 03/26/24 03:45 Ondansetron Hcl 4 Mg/2 Ml Vial IVPUSH 03/26/24 03:29 4 mg ONCE ONE Administration Discharge Plan Discharge Clinical Impression: Peripheral edema Abdominal pain Qualifiers: Abdominal location: left lower quadrant Qualified Code(s): R10.32 - Left lower quadrant pain Constipation Qualifiers: Constipation type: unspecified constipation type Qualified Code(s): K59.00 - Constipation, unspecified Vomiting Qualifiers: Migraine intractability: nonintractable Patient Disposition: Home, Self-Care Instructions: Constipation (ED), Abdominal Pain (ED) Additional Instructions: Your blood work was unremarkable. At this time I believe that your pain is due to constipation. Take lactulose Prescriptions: New lactulose 10 gram/15 mL solution 10 g PO BID PRN (Reason: constipation) Qty: 473 0RF ondansetron 4 mg tablet,disintegrating 4 mg PO Q6-8H PRN (Reason: nausea and vomiting) Qty: 14 0RF No Action aspirin 81 mg tablet,delayed release (DR/EC) 1 tab PO DAILY@0900 (DME) FreeStyle Test Strip See Rx Instructions .Route Qty: 100 0RF Rx Instructions: As directed amlodipine 10 mg Tablet 10 mg PO DAILY Qty: 30 0RF Protocol: Hold for SBP< HOLD for SBP < : 90 gabapentin 100 mg Capsule 100 mg PO BEDTIME Qty: 90 0RF insulin glargine [Lantus U-100 Insulin] 100 unit/mL Solution 10 unit subcut BEDTIME Qty: 10 0RF potassium chloride [K-Tab] 20 mEq tablet extended release 20 meq PO DAILY Qty: 20 0RF furosemide 20 mg Tablet 20 mg PO DAILY Qty: 0 0RF Protocol: Hold for SBP< HOLD for SBP < : 90 cefazolin in dextrose (iso-os) 2 gram/50 mL Piggyback 50 ml IV Q8H Qty: 0 0RF Rx Instructions: end mar 06, 2024 Interventions: ED Discharge Assessment Last Done: 03/26/24 07:43 Discharge Date/Time: 03/26/24 07:44 Print Language: Yi
[2024-03-26 03:42] LABS: Alanine Aminotransferase < 6 U/L (0-31); Albumin Level 3.2 g/dL (3.5-5.0); Alkaline Phosphatase 77 U/L (39-117); Aspartate Amino Transferase 18 U/L (5-31); Bilirubin Direct 0.1 mg/dL (0.0-0.5); Bilirubin Total 0.3 mg/dL (0.0-1.0); Lipase 22 U/L (8-78); Total Protein 6.9 g/dL (6.5-8.0)
[2024-03-26] MEDS: ondansetron HCL 4 MG/2 ML VIAL IVPUSH (03:45)
[2024-03-26] MEDS: Ketorolac Tromethamine 15 MG/ML VIAL IVPUSH (03:45)
[2024-03-26 03:53] VITALS: BP 158/78; PULSE 92; RESP 16; TEMP 37; O2SAT 93
--- NOTE | 2024-03-26 03:55 | MHC.EDTECH ---
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
[2024-03-26 03:57] LABS: OBS Int Ctl Valid YES; OBS1 NEGATIVE (NEGATIVE)
[2024-03-26 06:30] VITALS: BP 159/72; PULSE 91; RESP 16; TEMP 36.8; O2SAT 94
--- NOTE | 2024-03-26 06:32 | MHC.EDTECH ---
0600 rounding done ,vitals taken ,Patient was incontinent of urine care given ,all safety measure in Place .
--- NOTE | 2024-03-26 07:12 | PC.NURSE ---
Resumed care of patient at 0700, pt is awaiting transport at this time. Pt called nurse in to report she was feeling dizzy, she is a DM, POC checked and was 118.
[2024-03-26 07:13] LABS: Glucose, Whole Blood 118 mg/dL (60-115)
[2024-03-26 07:43] VITALS: BP 159/72; PULSE 91; RESP 16; TEMP 36.8; O2SAT 94
== END 2024-03-26 07:44 | disposition home or self-care (01) ==
PROVIDERS: Emergency Provider Emergency Medicine Emergency Medical Services
DX: N39.0 Urinary tract infection, site not specified (principal); K59.00 Constipation, unspecified; R10.32 Left lower quadrant pain; G43.909 Migraine, unspecified, not intractable, without status migrainosus; R60.0 Localized edema; J96.01 Acute respiratory failure with hypoxia; I13.0 Hypertensive heart and chronic kidney disease with heart failure and stage 1 through stage 4 chronic kidney disease, or unspecified chronic kidney disease; I50.9 Heart failure, unspecified; N18.9 Chronic kidney disease, unspecified; Z79.899 Other long term (current) drug therapy
CPT/HCPCS: 36415; 80048; 80076; 81001; 81003; 82272; 82947; 83690; 85025; 87086; 87088; 87186; 96374; 96375; 99285; J1885; J2405

== ENCOUNTER 2024-04-07 10:31 | Inpatient (IN) | payer MEDICAID, SELFPAY ==
[2024-04-07] VITALS (7 sets, daily range): BP systolic 143–196; BP diastolic 71–93; PULSE 88–106; RESP 15–20; TEMP 36.8–38.6; O2SAT 92–96; BMI 27.3
--- NOTE | ~2024-04-07 | US_ITS ---
EXAMINATION: US RETROPERITONEAL LIMITED (RENAL ONLY) CLINICAL INFORMATION: Acute kidney injury. COMPARISON: CT abdomen and pelvis 04/07/2024. Renal ultrasound 09/16/2023. MRI MRCP 09/17/2022. TECHNIQUE: Real-time imaging of the kidneys. FINDINGS: RIGHT KIDNEY: 10.0 x 3.5 x 4.0 cm (SAG x AP x TRV). The kidney is normal in size, contour, and echogenicity. Renal cortical thickness is normal. No calculi or focal parenchymal lesions. No hydronephrosis but renal pelvic fullness is seen. LEFT KIDNEY: 11.5 x 5.7 x 4.0 cm (SAG x AP x TRV). The kidney is normal in size, contour, and echogenicity. Renal cortical thickness is normal. No calculi or focal parenchymal lesions. No hydronephrosis. US/US renal BI IMPRESSION: Right renal pelvic fullness. Electronically signed by: Cesia Mayen MD 04/21/2024 04:14 PM MAUDE
--- NOTE | ~2024-04-07 | XR_ITS ---
EXAMINATION: XR CHEST CLINICAL INFORMATION: s/p right thoracentesis COMPARISON: X-ray dated April 07, 2024 TECHNIQUE: Frontal view of the chest was obtained. FINDINGS: No gross pneumothorax. Improved aeration right lung. Decreased mainly resolved right-sided pleural effusion. Meniscal shaped opacity left lower hemithorax. Indistinct margins in the perihilar regions and prominence of the interstitial markings. Cardiomegaly versus pericardial effusion. XR/XR chest 1V IMPRESSION: No gross pneumothorax. Resolved right-sided pleural effusion. Pulmonary edema. Left-sided pleural effusion, moderate to large volume. Electronically signed by: Farzad Castillo MD 04/08/2024 03:15 PM EST
--- NOTE | ~2024-04-07 | US_ITS ---
PROCEDURE: Ultrasound-guided right thoracentesis History: Right pleural effusion Specimen: None Access: 5 [place] Yueh catheter Medications: 10 mL 1% lidocaine TECHNIQUE/FINDINGS Appropriate preprocedural clinical history and imaging studies were reviewed. The patient was brought to the department and placed in the seated position. Ultrasound images of the right thorax were obtained to localize a large pleural effusion. Permanent ultrasound images were saved. Risks and benefits and possible complications were discussed with the patient and consent form was signed. An area of the patient's right back was prepped and draped in usual sterile fashion. 10 mL of 1% lidocaine was used to obtain local anesthesia of the skin and deeper tissues. A standard small bore needle was introduced to sample pleural fluid and demonstrate a safe access route. A 5 [place] Yueh catheter was then used to access the pleural cavity. 1100 ml of yellow fluid was removed passively. The catheter was then removed. A dressing was applied. A postprocedure chest x-ray will be performed and will be dictated separately. There were no immediate complications. The procedure was performed by Gene Linares PA-C and supervised by Dr. Elena US/US thoracentesis Impression: Ultrasound-guided right thoracentesis Electronically signed by: Duane Elena MD 05/14/2024 10:46 AM [facility]
--- NOTE | ~2024-04-07 | US_ITS ---
PROCEDURE: Ultrasound-guided left thoracentesis History: Left pleural effusion Access: 5 [place] Yueh catheter Medications: 10 mL 1% lidocaine TECHNIQUE/FINDINGS Appropriate preprocedural clinical history and imaging studies were reviewed. The patient was brought to the department and placed in the seated position. Ultrasound images of the left thorax were obtained to localize a moderate pleural effusion. Permanent ultrasound images were saved. Risks and benefits and possible complications were discussed with the patient and consent form was signed. An area of the patient's left back was prepped and draped in usual sterile fashion. 10 mL of 1% lidocaine was used to obtain local anesthesia of the skin and deeper tissues. A 5 [place] Yueh catheter was then used to access the pleural cavity. 800 ml of serous fluid was removed passively. The catheter was then removed. A dressing was applied. There were no immediate complications. US/US thoracentesis Impression: Ultrasound-guided left thoracentesis Electronically signed by: Akash Raymond MD 04/09/2024 01:40 PM MAU[facility]
--- NOTE | ~2024-04-07 | XR_ITS ---
EXAMINATION: XR CHEST CLINICAL INFORMATION: SOB. COMPARISON: 02/10/2024. TECHNIQUE: 2 views of the chest were obtained. FINDINGS: Lung volumes are low. There is no gross pneumothorax. Diffuse interstitial opacities and increased perihilar markings. Increased bilateral moderate pleural effusions and bibasilar consolidations, right greater than left. Degenerative changes in the thoracic spine. XR/XR chest 2V IMPRESSION: Increased bilateral moderate pleural effusions and bibasilar consolidations, right greater than left. Electronically signed by: Argentina Hampton MD 04/07/2024 12:43 PM EST
--- NOTE | ~2024-04-07 | CT_ITS ---
EXAMINATION: CT ABDOMEN AND PELVIS WITHOUT CONTRAST CLINICAL INFORMATION: Periumbilical abdominal pain. Nausea. Vomiting. COMPARISON: CT dated January 21, 2023 TECHNIQUE: Multidetector volumetric imaging was performed from the superior aspect of the liver through the pubic symphysis. Sagittal and coronal reformatted images were obtained on the technologist's workstation. This CT examination was performed using dose optimization techniques as appropriate, variously including the following: *Automated exposure control *Adjustment of mA and/or kV according to patient size (this includes techniques or standardized protocols for targeted exams where dose is matched to indication/reason for exam; i.e. extremities or head) *Use of iterative reconstruction technique DLP: 474 mGy-cm FINDINGS: Limited evaluation of the intra-abdominal organs and vascular structures due to lack of IV contrast. LUNG BASES: Bilateral pleural effusions, large volume. Atelectasis versus infiltrate, lung bases and lingula. LIVER, GALLBLADDER, AND BILIARY TREE: Liver measures 16 cm. Status post cholecystectomy likely laparoscopic. Cluster of 3 mm calcifications in the distal common bile duct. Mild prominence of the intra and extrahepatic biliary ductal system the common bile duct measures 7 mm. PANCREAS: No peripancreatic fluid collection. No main pancreatic ductal dilatation. SPLEEN: 8 cm. ADRENAL GLANDS: No nodular lesions. KIDNEYS AND URETERS: No hydronephrosis. No nephrolithiasis. BLADDER: Fluid-filled with questionable wall thickening. GASTROINTESTINAL TRACT: Abundant stool. No intestinal obstruction pattern. Appendix is normal. Ascites, small to moderate volume in the cul-de-sac. No pneumoperitoneum. No pneumatosis intestinalis. ABDOMINAL WALL: Thickened umbilicals. No gross hernia small tiny fat-containing epigastric hernia cannot be entirely excluded. LYMPH NODES: Nonspecific prominent retroperitoneal lymph nodes. VASCULAR: No aneurysm, thoracic aorta. Calcified plaques in the splenic artery, the mesenteric arteries, abdominal aorta PELVIC VISCERA: Calcifications, peripheral uterus and adnexa. OSSEOUS STRUCTURES: Multilevel thoracolumbar spondylosis more conspicuous at T12-L1. Old superior endplate compression deformity representing 30% volume loss, L1 vertebra. Probable central disc herniation L5-S1. CT/CT abdomen pelvis wo IV con IMPRESSION: Bilateral pleural effusions, large volume with atelectasis versus infiltrates, new since prior exam. Concerning choledocholithiasis. No intestinal obstruction pattern. Ascites, small to moderate volume. Fleischner guidelines were followed. Electronically signed by: Farzad Castillo MD 04/07/2024 02:28 PM [facility]
--- NOTE | ~2024-04-07 | CT_ITS ---
EXAMINATION: CT CHEST WITHOUT CONTRAST CLINICAL INFORMATION: Bilateral pleural effusions. Shortness of breath. Hypoxia. COMPARISON: CT chest dated February 07, 2024. TECHNIQUE: Multidetector volumetric CT imaging of the chest was done. Axial MIP volume rendering provided. Sagittal and coronal reformatted images were obtained. This CT examination was performed using dose optimization techniques as appropriate, variously including the following: *Automated exposure control *Adjustment of mA and/or kV according to patient size (this includes techniques or standardized protocols for targeted exams where dose is matched to indication/reason for exam; i.e. extremities or head) *Use of iterative reconstruction technique DLP: 247. mGy-cm FINDINGS: AGRICULTURAL MECHANIC: Bilateral pleural effusions, large volume. Bilateral multifocal patchy pulmonary groundglass extending from the perihilar into the periphery of the lungs. No pneumothorax. No gross pericardial effusion. Multilevel cervical thoracic spondylosis. No acute fracture or listhesis. Multilevel Schmorl nodes throughout the axial skeleton No bronchiectasis. No honeycombing. . CT/CT chest wo IV con IMPRESSION: Pulmonary edema and bilateral pleural effusions, large volume. Cardiogenic versus nephrogenic among other etiologies. Fleischner guidelines were followed. Electronically signed by: Farzad Castillo MD 04/07/2024 12:59 PM [facility]
--- NOTE | 2024-04-07 10:50 | PC.NURSE ---
Pt. states that she has not been taking her HTN medication due to N/V.
--- NOTE | 2024-04-07 10:53 | ED.ABDPAIN ---
HPI - Abdominal Pain General Chief Complaint: Abdominal Pain Stated Complaint: ABDOMINAL PAIN Time Seen by Provider: 04/07/24 10:44 Source: patient, EMS and physical therapist ([place] citizen) Mode of arrival: EMS Limitations: language barrier ([place] citizen speaking) History of Present Illness ED Provider: GRACIE BARON PA-C HPI narrative: 53 year old Macedonian speaking female with pmhx significant for HFrEF, T2DM, COPD on home 2L NC, postural hypotension, HTN med noncompliant, hypertensive urgency, anemia, and depression presents to the ED today via EMS from home for evaluation of periumbilical abdominal pain since x4 days. No radiation. Admits to associated nausea without vomiting. States she feels generally weak. She currently lives with her son however is not aware of any known sick contacts. She was evaluated at [facility] on 03/29/24 for abdominal pain (10 days ago). She was diagnosed with constipation, treated with an enema with improvement and discharged home with lactulose. It is unclear if she has been taking this. She also reports feeling more short of breath than usual. Patient has chronic hypoxic respiratory failure for which she uses supplemental oxygen 2 L via nasal cannula at baseline. It is unclear if she wears this as directed at home. It is also unclear if she takes her diuretic as prescribed. She states that her son typically administers her medications. Patient is overall poor historian. 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 Related Data Home Medications ?Medication ?Instructions ?Recorded ?Confirmed aspirin 81 mg tablet,delayed 1 tab PO DAILY@0900 07/21/22 04/07/24 release ferrous sulfate 324 mg (65 mg 324 mg PO Q OTHER DAY 04/07/24 04/07/24 iron) tablet,delayed release losartan 25 mg tablet 25 mg PO DAILY 04/07/24 04/07/24 omeprazole 40 mg capsule,delayed 40 mg PO QAM 04/07/24 04/07/24 release Previous Rx's ?Medication ?Instructions ?Recorded blood sugar diagnostic (FreeStyle #100 ea 10/02/22 Test strips) amlodipine 10 mg tablet 10 mg PO DAILY #30 tabs 09/19/23 gabapentin 100 mg capsule 100 mg PO BEDTIME #90 caps 01/14/24 insulin glargine 100 unit/mL 10 unit (0.1 mL) subcut BEDTIME 01/14/24 subcutaneous solution (Lantus #10 mL U-100 Insulin) furosemide 20 mg tablet 20 mg PO DAILY #0 tabs 02/14/24 lactulose 10 gram/15 mL oral 10 g (15 mL) PO BID PRN 03/26/24 solution constipation #473 mL ondansetron 4 mg disintegrating 4 mg PO Q6-8H PRN nausea and 03/26/24 tablet vomiting #14 tabs Allergies Allergy/AdvReac Type Severity Reaction Status Date / Time shrimp Allergy Swelling Verified 04/07/24 10:49 Review of Systems Review of Systems Constitutional: No fever, chills, fatigue, night sweats, weight changes ENT/Mouth: No ear pain, hearing loss, nasal congestion, sinus pain, rhinorrhea, sore throat Eyes: No eye pain, swelling, redness, vision changes, discharge Cardio: No chest pain, palpitations, VICENTE, orthopnea, peripheral edema Pulm: No cough, sputum, wheezing, dyspnea, hemoptysis, +SOB GI: No hematemesis, constipation, hematochezia, melena, +abd pain, +nausea, +vomiting : No irregular bleeding, dysuria, frequency, urgency, hesitancy, hematuria, flank pain, urinary flow changes, urinary incontinence or retention MSK: No back pain, neck pain, joint pain, myalgias Skin: No lesions, rashes Neuro: No weakness, numbness, paresthesias, LOC, dizziness, headache Psych: No anxiety/panic, depression, SI/HI, AH/VH All other systems reviewed and are negative. COUNT INCLUDES THE [facility] Past Medical History Attestation statement: The following information was validated with the patient. Source: old records reviewed and nursing notes reviewed Medical History Hypertension Symptomatic anemia Brain lesion Iron deficiency anemia HLD (hyperlipidemia) Anemia Depression Type 2 diabetes mellitus Family History Family History Other Hypertension Social History Social History Household Members: Family Household Members Other:: Daughter Housing: Apartment Do you presently have visiting nurse or other home services: No Unable to assess alcohol history related to: Unable to respond Alcohol intake: former Patient Tobacco Use Status: Never used Tobacco e-Cigarette/Vaping Use: Never Used Second Hand Smoke Exposure: No Advance Directives: Yes Advance Directives on File: Yes Advance Directives Date on File: 06/19/21 Do you have a plan to hurt others: No Plan service: No Current occupational status: unemployed Physical Exam ED Vital Signs: Vital Signs - 24 hr 04/07/24 10:37 04/07/24 12:09 04/07/24 13:05 Temperature 99 F 101.4 F H Pulse Rate 100 103 H 106 H Respiratory Rate 16 20 16 Blood Pressure 196/93 H 178/77 H 183/86 H Pulse Oximetry 94 93 94 Oxygen Delivery Method Nasal Cannula Nasal Cannula Nasal Cannula Oxygen Flow Rate 2 2 04/07/24 15:45 Temperature 98.8 F Pulse Rate 88 Respiratory Rate 20 Blood Pressure 164/76 H Pulse Oximetry 93 Oxygen Delivery Method Nasal Cannula Oxygen Flow Rate 2 BMI result Body Mass Index 27.3 hypertensive, hypoxic to 82% on RA General: ill appearing Skin: Warm, dry, intact. No rashes or lesions. Head: Normocephalic, atraumatic. EENT: Hearing is intact b/l. Conjunctiva clear. PERRLA. EOM intact. Moist mucous membranes.? Neck: Supple without LAD Cardiac: Chest wall symmetric. RRR. No JVD. Lungs: No increased effort of breathing. No tripoding. No accessory muscle use. Breath sounds diminished bilaterally, primarily at bases. Abdomen: Obese abdomen, soft, diffusely tender to palpation without rebound tenderness or guarding. No masses. normoactive bs x4. Ext: 2+ pitting edema to b/l LEs. no overlying skin changes Neuro: AOx3. Normal speech. Psych: Appropriate mood and affect. Responds appropriately to questions. Course Course Course Narrative: 1307 -- CBC with leukocytosis to 14.4 with left shift. Normocytic anemia, H and H around baseline. Chemistry without acute electrolyte abnormality requiring intervention. Renal function around baseline. BUN 17, creatinine 1.71. Lactic WNL at 0.7. Normal liver function. BNP elevated at 912. 60 IV lasix ordered. Chest x-ray showing increased bilateral moderate pleural effusions and bibasilar consolidations, right greater than left. Chest CT showing pulmonary edema and bilateral pleural effusions, large volume. Cardiogenic versus nephrogenic among other etiologies. she is lying comfortably in bed, no respiratory distress. > rectal temp 101.4?. IV Tylenol given. At this time, infection suspected. Cefepime IV ordered. > CT a/p pending. UA pending. 1457 - CT abdomen/pelvis shows cluster of 3 mm calcifications in the distal common bile duct, mild prominence of the intra and extrahepatic biliary ductal system with common bile duct measuring 7 mm. Status post cholecystectomy. There is a small to moderate amount of ascitis. It also redemonstrates bilateral pleural effusions, large volume, with atelectasis versus infiltrates. Already being treated for pneumonia. > patient lying comfortably in bed, in no acute respiratory distress. I do not feel thoracentesis is warranted at this time. > I discussed case with general surgeon Dr. Brush who states there is no surgical intervention warranted at this time. I also reached out to GI Dr. Lima who has reviewed case. States that if patient is able to lie flat for long enough, she may benefit from MRCP. Agrees with admission to medicine for IV lasix and abx. will discuss with hospitalist. 1400 -- Dr. Mcintosh has accepted admission. Medical Decision Making Medical Decision Making MDM Narrative: 53 year old Macedonian speaking female with pmhx significant for HFrEF, T2DM, COPD on home 2L NC, postural hypotension, HTN med noncompliant, hypertensive urgency, anemia, and depression presents to the ED today via EMS from home for evaluation of periumbilical abdominal pain since x4 days. Patient initially satting 82% on RA. Placed on 2L NC with improvement to 94%. Tachy to 106. Hypertensive to 196/93, patient not compliant with home antihypertensives. Rectal temp 101.4F. No increased effort of breathing. No tripoding. No accessory muscle use. Breath sounds diminished bilaterally, primarily at bases. Obese abdomen, soft, diffusely tender to palpation without rebound tenderness or guarding. No masses. normoactive bs x4. 2+ pitting edema to b/l LEs. no overlying skin changes Differential diagnosis includes anemia, electrolyte abnormality, COPD exacerbation, pneumonia, CHF, bronchitis, pleural effusion, pericardial effusion, ACS, arrhythmia, appendicitis, diverticulitis, diverticulosis, UTI, constipation. Abdominal exam without peritoneal signs. No evidence of acute abdomen at this time. Well appearing. Low suspicion for acute hepatobiliary disease (including acute cholecystitis), acute infectious processes (pneumonia, hepatitis, pyelonephritis, PID, TOA), vascular catastrophe, bowel obstruction or viscus perforation, ovarian cyst/ rupture/ torsion, ectopic. Presentation not consistent with other acute, emergent causes of abdominal pain at this time. Plan for ekg, labs, CXR, CT chest, CT abd/pelvis, UA, re-evaluation. Differential Diagnosis Differential Diagnoses: The differential diagnosis associated with the presentation includes as above. Admission/Observation Consideration of admission/observation: Escalation of care including admission/observation considered Patient admitted to medicine for hypoxia, CHF, and bilateral pleural effusions. Consult Healthcare Provider Management of the patient was discussed with: Hospitalist (Dr. Mcintosh) and Wind Energy Technician General surgeon - Dr. Gonsalo NORTON - Dr. Lima Lab Data MDM Lab Attestation statement: I reviewed the patient's lab results. as above. 04/08/24 04:13 04/08/24 04:13 Labs: Lab Results 04/07/24 04/07/24 04/07/24 Range/Units 11:25 12:43 13:24 WBC 14.4 H (4.8-10.8) X10*3/uL RBC 3.05 L (4.20-5.50) X10*6/uL Hgb 8.7 L (12.0-16.0) g/dl Hct 25.4 L (37.0-47.0) % MCV 83.3 (80.0-98.0) fL MCH 28.5 (27.0-33.0) pg MCHC 34.3 (31.0-35.0) g/dl RDW 14.5 (11.0-16.0) % Plt Count 174 (160-400) X10*3/uL MPV 8.3 L (9.4-12.3) fL Immature Gran % (Auto) 0.5 H (0.0-0.4) % Neut % (Auto) 82.4 H (45-73) % Lymph % (Auto) 12.3 L (20-40) % [place] % (Auto) 4.5 (2-11) % Eos % (Auto) 0.1 (0-4) % Baso % (Auto) 0.2 (0-2) % Lymph # (Auto) 1.8 (1.2-4.9) X10*3/uL [place] # (Auto) 0.7 (0.1-1.2) X10*3/uL Eos # (Auto) 0.0 (0.0-0.4) X10*3/uL Baso # (Auto) 0.0 (0.0-0.2) X10*3/uL Abs Immat Gran (auto) 0.07 H (0.00-0.03) X10*3/uL Absolute Neuts (auto) 11.8 H (2.0-8.3) x10*3/uL Absolute Nucleated RBC 0.000 (0.0-0.012) X10*3/uL Nucleated RBC % (auto) 0.0 (0.0-0.2) /100WBC Sodium 135 (135-145) mmol/L Potassium 3.8 (3.3-5.1) mmol/L Chloride 102 (96-108) mmol/L Carbon Dioxide 26 (22-29) mmol/L Anion Gap 11 L (12-20) BUN 17 H (9-16) mg/dL Creatinine 1.71 H (0.5-1.4) mg/dL Estim Creat Clear Calc 33.9 Estimated GFR 31 Random Glucose 110 (60-115) mg/dL Lactic Acid 0.7 (0.5-2.0) mmol/L Calcium 8.4 (8.4-10.2) mg/dL Magnesium 2.0 (1.6-2.6) mg/dL Total Bilirubin 0.4 (0.0-1.0) mg/dL Direct Bilirubin 0.1 (0.0-0.5) mg/dL AST 23 (5-31) U/L ALT 6 (0-31) U/L Alkaline Phosphatase 103 (39-117) U/L Troponin I High Sens 8.8 (<3.5-17.0) ng/L B-Natriuretic Peptide 912 H (<100) pg/mL Total Protein 7.0 (6.5-8.0) g/dL Albumin 3.0 L (3.5-5.0) g/dL Lipase 12 (8-78) U/L Urine Color Yellow Urine Appearance Clear Urine pH 5.5 (5.0-9.0) Ur Specific [place] 1.010 (1.005-1.025) Urine Protein 300 (3+) H (Neg-Trace) mg/dL Urine Glucose (UA) 100 H (Negative) mg/dL Urine Ketones Negative (Negative) mg/dL Urine Blood Moderate (2+) H (Negative) Urine Nitrite Negative (Negative) Ur Leukocyte Esterase Trace H (Negative) Urine RBC 3-5 H (0-2) /HPF Urine WBC 11-20 (0-5) /HPF Ur Squamous Epith Cells 6-10 (0-2) /HPF Other Crystals Present Urine Bacteria 3+ (None Seen) Hyaline Casts 0-2 (0-2) /LPF Influenza Type A (PCR) NEGATIVE (Negative) Influenza Type B (PCR) NEGATIVE (Negative) RSV RNA Qual (PCR) NEGATIVE (Negative) SARS-CoV-2 RNA (RT-PCR) NEGATIVE (Negative) Independent Interpretation I performed an independent interpretation of an: EKG, Plain X-Ray and CT Scan Interpretation: EKG CXR with bilateral pleural effusions CT chest with bilateral pleural effusions CT abd without obstruction Radiology Impression Discussion of test interpretation with radiology: I have reviewed the radiologist's reading. Radiologist Impression: EXAMINATION: CT CHEST WITHOUT CONTRAST CLINICAL INFORMATION: Bilateral pleural effusions. Shortness of breath. Hypoxia. COMPARISON: CT chest dated February 07, 2024. TECHNIQUE: Multidetector volumetric CT imaging of the chest was done. Axial MIP volume rendering provided. Sagittal and coronal reformatted images were obtained. This CT examination was performed using dose optimization techniques as appropriate, variously including the following: *Automated exposure control *Adjustment of mA and/or kV according to patient size (this includes techniques or standardized protocols for targeted exams where dose is matched to indication/reason for exam; i.e. extremities or head) *Use of iterative reconstruction technique DLP: 247. 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 Bilateral multifocal patchy pulmonary groundglass extending from the perihilar into the periphery of the lungs. No pneumothorax. No gross pericardial effusion. Multilevel cervical thoracic spondylosis. No acute fracture or listhesis. Multilevel Schmorl nodes throughout the axial skeleton No bronchiectasis. No honeycombing. . CT/CT chest wo IV con IMPRESSION: Pulmonary edema and bilateral pleural effusions, large volume. Cardiogenic versus nephrogenic among other etiologies. Fleischner guidelines were followed. Electronically signed by: Farzad Castillo MD 04/07/2024 12:59 PM EST EXAMINATION: CT ABDOMEN AND PELVIS WITHOUT CONTRAST CLINICAL INFORMATION: Periumbilical abdominal pain. Nausea. Vomiting. COMPARISON: CT dated January 21, 2023 TECHNIQUE: Multidetector volumetric imaging was performed from the superior aspect of the liver through the pubic symphysis. Sagittal and coronal reformatted images were obtained on the technologist's workstation. This CT examination was performed using dose optimization techniques as appropriate, variously including the following: *Automated exposure control *Adjustment of mA and/or kV according to patient size (this includes techniques or standardized protocols for targeted exams where dose is matched to indication/reason for exam; i.e. extremities or head) *Use of iterative reconstruction technique DLP: 474 mGy-cm FINDINGS: Limited evaluation of the intra-abdominal organs and vascular structures due to lack of IV contrast. LUNG BASES: Bilateral pleural effusions, large volume. Atelectasis versus infiltrate, lung bases and lingula. LIVER, GALLBLADDER, AND BILIARY TREE: Liver measures 16 cm. Status post cholecystectomy likely laparoscopic. Cluster of 3 mm calcifications in the distal common bile duct. Mild prominence of the intra and extrahepatic biliary ductal system the common bile duct measures 7 mm. PANCREAS: No peripancreatic fluid collection. No main pancreatic ductal dilatation. SPLEEN: 8 cm. ADRENAL GLANDS: No nodular lesions. KIDNEYS AND URETERS: No hydronephrosis. No nephrolithiasis. BLADDER: Fluid-filled with questionable wall thickening. GASTROINTESTINAL TRACT: Abundant stool. No intestinal obstruction pattern. Appendix is normal. Ascites, small to moderate volume in the cul-de-sac. No pneumoperitoneum. No pneumatosis intestinalis. ABDOMINAL WALL: Thickened umbilicals. No gross hernia small tiny fat-containing epigastric hernia cannot be entirely excluded. LYMPH NODES: Nonspecific prominent retroperitoneal lymph nodes. VASCULAR: No aneurysm, thoracic aorta. Calcified plaques in the splenic artery, the mesenteric arteries, abdominal aorta PELVIC VISCERA: Calcifications, peripheral uterus and adnexa. OSSEOUS STRUCTURES: Multilevel thoracolumbar spondylosis more conspicuous at T12-L1. Old superior endplate compression deformity representing 30% volume loss, L1 vertebra. Probable central disc herniation L5-S1. CT/CT abdomen pelvis wo IV con IMPRESSION: Bilateral pleural effusions, large volume with atelectasis versus infiltrates, new since prior exam. Concerning choledocholithiasis. No intestinal obstruction pattern. Ascites, small to moderate volume. Fleischner guidelines were followed. Electronically signed by: Farzad Castillo MD 04/07/2024 02:28 PM EST RP EXAMINATION: XR CHEST CLINICAL INFORMATION: SOB. COMPARISON: 02/10/2024. TECHNIQUE: 2 views of the chest were obtained. FINDINGS: Lung volumes are low. There is no gross pneumothorax. Diffuse interstitial opacities and increased perihilar markings. Increased bilateral moderate pleural effusions and bibasilar consolidations, right greater than left. Degenerative changes in the thoracic spine. XR/XR chest 2V IMPRESSION: Increased bilateral moderate pleural effusions and bibasilar consolidations, right greater than left. Electronically signed by: Argentina Hampton MD 04/07/2024 12:43 PM EST RP Independent Historian Clinical information obtained from an independent historian. History obtained from or confirmed by: EMS External Record Review External record reviewed: Inpatient record, Office record, Outpatient record, Prior outpatient labs, Prior outpatient radiology, Primary care record and Outside ED record Prescription Management I considered prescription management with: Pain Medication and Antibiotic Chronic Conditions Patient?s care impacted by: Other (CHF, COPD) Social Determinants Patient?s care significantly limited by Social Determinants of Health including: Other Social Determinant of Health Medications Administered Generic Name Dose Route Start Last Admin Trade Name Freq PRN Reason Stop Dose Admin Amlodipine Besylate 10 mg 04/08/24 09:00 04/08/24 09:32 Amlodipine Besylate 10 Mg Tablet PO 10 mg DAILY JM Administration Protocol Aspirin 81 mg 04/08/24 09:00 04/08/24 09:32 Aspirin Enteric Coated 81 Mg Tablet. PO 81 mg DAILY@0900 JM Administration Enoxaparin Sodium 40 mg 04/07/24 17:00 04/07/24 18:06 Enoxaparin Sodium 40 Mg/0.4 Ml Syringe SUBCUT 40 mg Q24H JM Administration Ferrous Sulfate 324 mg 04/08/24 08:00 04/08/24 09:31 Ferrous Sulfate 324 Mg Tablet. PO 324 mg Q48H JM Administration Furosemide 40 mg 04/08/24 09:00 04/08/24 09:32 Furosemide 40 Mg/4 Ml Vial IVPUSH 40 mg BID@0900,1800 JM Administration Protocol Azithromycin 500 mg/ Sodium 250 mls @ 125 mls/hr 04/07/24 18:00 04/08/24 00:35 Chloride IV Infused Q24H JM Infusion Cefepime HCl 2 gm in 50 mls @ 100 mls/hr 04/08/24 08:00 04/08/24 09:24 Maxipime IV 100 mls/hr Q12H JM Administration Insulin Human Lispro 0 unit 04/07/24 21:00 04/08/24 09:06 Insulin Lispro 100 Unit/Ml 3 Ml Vial SUBCUT Not Given QIDACHS [facility] Protocol Omeprazole 40 mg 04/08/24 08:00 04/08/24 09:31 Omeprazole 40 Mg Capsule.Dr PO 40 mg DAILY@0630 [facility] Administration Sodium Chloride 3 ml 04/08/24 00:00 04/08/24 09:32 0.9 % Sodium Chloride Flush 3 Ml Syringe IVFLUSH 3 ml QSHIFT [facility] Administration Discontinued Medications Generic Name Dose Route Start Last Admin Trade Name Freq PRN Reason Stop Dose Admin Amlodipine Besylate 10 mg 04/07/24 13:07 04/07/24 13:37 Amlodipine Besylate 10 Mg Tablet PO 04/07/24 13:08 10 mg ONCE ONE Administration Protocol Ceftriaxone Sodium 1 gm 04/07/24 17:00 04/07/24 18:06 Ceftriaxone Sodium 1 Gm Vial IVPUSH 1 gm Q24H JM Administration Furosemide 40 mg 04/07/24 11:57 04/07/24 12:10 Furosemide 40 Mg/4 Ml Vial IVPUSH 04/07/24 11:58 40 mg STAT STA Administration Protocol Furosemide 20 mg 04/07/24 13:06 04/07/24 13:37 Furosemide 20 Mg/2 Ml Vial IVPUSH 04/07/24 13:07 20 mg ONCE ONE Administration Protocol Acetaminophen 1,000 mg in 100 mls @ 400 mls/hr 04/07/24 12:17 04/07/24 15:21 Ofirmev IV 04/07/24 12:31 Infused ONCE ONE Infusion Cefepime HCl 2 gm in 50 mls @ 100 mls/hr 04/07/24 13:05 04/07/24 15:21 Maxipime IV 04/07/24 13:34 Infused ONCE ONE Infusion Ondansetron HCl 4 mg 04/07/24 11:35 04/07/24 11:52 Ondansetron Odt 4 Mg Tab.Adi TRANSLINGU 04/07/24 11:36 4 mg ONCE ONE Administration Critical Care Time Critical Care Time Critical Care Time: Yes Total Critical Care Time: 45 Attestation: Critical care time in the amount of 45 minutes has been provided to the patient in terms of direct patient care, frequent reevaluation, consultation with hospitalist/ gi/ general surgery, review and interpretation of medical data and results, and management of potentially life-threatening conditions. This is all outside of any medical procedures. Discharge Plan Discharge Clinical Impression: Bilateral pleural effusion, Congestive heart failure (CHF), CAP (community acquired pneumonia), Acute hypoxic respiratory failure Patient Disposition: Admitted As Inpatient
[2024-04-07 11:30] LABS: MANUAL DIFF FLAG NO
[2024-04-07 11:34] LABS: Basophils Percent Auto 0.2 % (0-2); Eosinophils Percent Auto 0.1 % (0-4); Hematocrit 25.4 % (37.0-47.0); Hemoglobin 8.7 g/dl (12.0-16.0); Imm Gran Abs Auto 0.07 X10*3/uL (0.00-0.03); Imm Gran Pct Auto 0.5 % (0.0-0.4); Lymphocytes Absolute Auto 1.8 X10*3/uL (1.2-4.9); Lymphocytes Percent Auto 12.3 % (20-40); Mean Corpuscular HGB Conc 34.3 g/dl (31.0-35.0); Mean Corpuscular Hemoglobin 28.5 pg (27.0-33.0); Mean Corpuscular Volume 83.3 fL (80.0-98.0); Mean Platelet Volume 8.3 fL (9.4-12.3); Monocytes Absolute Auto 0.7 X10*3/uL (0.1-1.2); Monocytes Percent Auto 4.5 % (2-11); Neutrophils Absolute Auto 11.8 x10*3/uL (2.0-8.3); Neutrophils Percent Auto 82.4 % (45-73); Platelet Count 174 X10*3/uL (160-400); Red Blood Count 3.05 X10*6/uL (4.20-5.50); Red Cell Distribution Width 14.5 % (11.0-16.0); White Blood Count 14.4 X10*3/uL (4.8-10.8)
[2024-04-07 11:47] LABS: Alanine Aminotransferase 6 U/L (0-31); Alkaline Phosphatase 103 U/L (39-117); Anion Gap 11 (12-20); Aspartate Amino Transferase 23 U/L (5-31); Bilirubin Total 0.4 mg/dL (0.0-1.0); Blood Urea Nitrogen 17 mg/dL (9-16); Calcium 8.4 mg/dL (8.4-10.2); Carbon Dioxide 26 mmol/L (22-29); Chloride 102 mmol/L (96-108); Creatinine Clr Calc Pharmacy 33.9; Estimated Glomerular Filt Rate 31; Glucose Random 110 mg/dL (60-115); Lipase 12 U/L (8-78); Potassium 3.8 mmol/L (3.3-5.1); Sodium 135 mmol/L (135-145)
[2024-04-07 11:52] LABS: B Type Natriuretic Peptide 912 pg/mL (<100)
[2024-04-07] MEDS: Ondansetron ODT 4 MG TAB.RAPDIS TRANSLINGU (11:52)
--- NOTE | 2024-04-07 12:08 | PC.NURSE ---
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
[2024-04-07] MEDS: Furosemide 40 MG/4 ML VIAL IVPUSH (12:10)
[2024-04-07 12:18] LABS: Influenza A PCR NEGATIVE (Negative); Influenza B PCR NEGATIVE (Negative); Resp Syncy Virus RNA Qual PCR NEGATIVE (Negative); SARS COV2 PCR INHOUSE NEGATIVE (Negative)
--- NOTE | 2024-04-07 12:43 | PC.NURSE ---
Blood cultures x2 and Lactic drawn
--- NOTE | 2024-04-07 12:44 | ECG_ITS ---
Test Reason : abd pain Blood Pressure : / mmHG Vent. Rate : 101 BPM Atrial Rate : 101 BPM P-R Int : 150 ms QRS Dur : 072 ms QT Int : 372 ms P-R-T Axes : 051 023 001 degrees QTc Int : 482 ms Sinus tachycardia Anterior infarct (cited on or before 07-FEB-2024) Abnormal ECG When compared with ECG of 07-FEB-2024 18:11, No significant changes seen Referred By: Ilsa Bhardwaj Electronically Signed By:Elpidio Cortez
--- NOTE | 2024-04-07 12:44 | PC.NURSE ---
Pt. taken to CT scan at this time
[2024-04-07 13:07] LABS: Lactic Acid 0.7 mmol/L (0.5-2.0)
[2024-04-07 13:11] LABS: Troponin-I High Sensitivity 8.8 ng/L (<3.5-17.0)
[2024-04-07 13:32] LABS: Appearance Urine Clear; Color Urine Yellow; Glucose Urine UA 100 mg/dL (Negative); Leukocyte Esterase Urine Trace (Negative); Nitrite Urine Negative (Negative); PH 5.5 (5.0-9.0); UMIC TRIGGER UACC YES; Urine Blood Moderate (2+) (Negative); Urine Ketones Negative (Negative); Urine Protein 300 (3+) mg/dL (Neg-Trace)
[2024-04-07] MEDS: Acetaminophen 1,000 MG/100 ML PIGGYBACK 400 MG IV (13:37)
[2024-04-07] MEDS: Furosemide 20 MG/2 ML VIAL IVPUSH (13:37)
[2024-04-07] MEDS: amLODIPine Besylate 10 MG TABLET PO (13:37)
[2024-04-07] MEDS: cefEPime HCl/D5W 2 GM/50 ML PIGGYBACK IV (13:37)
[2024-04-07 14:17] LABS: Bacteria Urine 3+ (None Seen); Hyaline Casts Urine 0-2 /LPF (0-2); Other Crystals Urine Present; UACC Culture Trigger YES
[2024-04-07 15:43] LABS: Bilirubin Direct 0.1 mg/dL (0.0-0.5)
--- NOTE | 2024-04-07 15:58 | MHC.EDTECH ---
This pct assumed care pf Patient at 1500 ,vitals taken ,Patient was assisted unto bedpan ,void also was incontinent of urine ,care given and bedding change ,Patient belongings list done ,All safety measure in Place ,Plan of care continue .
--- NOTE | 2024-04-07 16:25 | P.HPHOSP_ITS ---
History of Present Illness Date of Service: 04/07/24 Chief Complaint: Pneumonia, pulm edema Queta Loya is a 53 y/o woman w/ PMHx significant for COPD -home O2 2L, DMII, HFrEF, HTN among others presenting with fever, dyspnea and hypoxia. The patient is poor historian, has poor compliance, presented with increase edema , dyspnea, shortness of breath with fever. she could not provide anymore details. No chest pain, palpitations, SOB, nausea, vomiting, diarrhea or urinary symptoms. In ED she is hypoxic with sats in 80s%, elevated BNP and negative TropI. CXR showing increased b/l moderate pleural effusions and bibasilar consolidations. CT chest showing pulmonary edema and b/l pleural effusions, large volume. received 60mg IV lasix, a dose of cefepime, home amlodipine, and IV Tylenol. Admitted for further work up and treatment. Review of Systems 2 Review of Systems: has fever, chills and weakness No chest pain, palpitation No shortness of breath or coughing No abdominal pain, nausea or vomiting No urinary symptoms PMFSH Medical History Hypertension Symptomatic anemia Brain lesion Iron deficiency anemia HLD (hyperlipidemia) Anemia Depression Type 2 diabetes mellitus Family History Other Hypertension Social History Household Members: Family Household Members Other:: Daughter Housing: Apartment Do you presently have visiting nurse or other home services: No Unable to assess alcohol history related to: Unable to respond Alcohol intake: former Patient Tobacco Use Status: Never used Tobacco e-Cigarette/Vaping Use: Never Used Second Hand Smoke Exposure: No Advance Directives: Yes Advance Directives on File: Yes Advance Directives Date on File: 06/19/21 Do you have a plan to hurt others: No Plan service: No Current occupational status: unemployed Meds Allergies Allergy/AdvReac Type Severity Reaction Status Date / Time shrimp Allergy Swelling Verified 04/07/24 10:49 Home Medications ?Medication ?Instructions ?Recorded ?Confirmed ?Last Taken ?Type aspirin 81 mg tablet,delayed 1 tab PO DAILY@0900 07/21/22 02/08/24 02/07/24 History release ferrous sulfate 324 mg (65 mg 324 mg PO Q OTHER DAY 04/07/24 Unknown History iron) tablet,delayed release losartan 25 mg tablet 25 mg PO DAILY 04/07/24 04/07/24 Unknown History omeprazole 40 mg capsule,delayed 40 mg PO QAM 04/07/24 Unknown History release Physical Exam 2 Vital Signs and Narrative: Vital Signs: Last Vital Signs Temp 98.8 F 04/07/24 15:45 Pulse 88 04/07/24 15:45 Resp 20 04/07/24 15:45 BP 164/76 H 04/07/24 15:45 Pulse Ox 93 04/07/24 15:45 O2 Del Method Nasal Cannula 04/07/24 15:45 O2 Flow Rate 2 04/07/24 15:45 Oxygen Flow Rate 2 04/07/24 10:37 BMI result Body Mass Index 27.3 Const: Other: Constitutional : Awake, interactive, not in distress Neck : Normal inspection, Supple Cardiovascular : RRR, no JVP, trace lower extremity edema Respiratory : fair bilateral air entry, basal crackles, no wheezing , On O2 supplement Gastrointestinal: soft, lax, Normal bowel sounds, Non tender Skin : Warm, Dry Neurological : Alert & oriented x3, No focal deficit Results Labs 04/07/24 11:25 04/07/24 11:25 Labs: Laboratory Results - last 24 hr 04/07/24 04/07/24 04/07/24 11:25 12:43 13:24 MCV 83.3 MCH 28.5 MCHC 34.3 RDW 14.5 Plt Count 174 MPV 8.3 L Immature Gran % (Auto) 0.5 H Neut % (Auto) 82.4 H Lymph % (Auto) 12.3 L Williamson % (Auto) 4.5 Eos % (Auto) 0.1 Baso % (Auto) 0.2 Lymph # (Auto) 1.8 Williamson # (Auto) 0.7 Eos # (Auto) 0.0 Baso # (Auto) 0.0 Abs Immat Gran (auto) 0.07 H Absolute Neuts (auto) 11.8 H Absolute Nucleated RBC 0.000 Nucleated RBC % (auto) 0.0 Anion Gap 11 L Estim Creat Clear Calc 33.9 Estimated GFR 31 Random Glucose 110 Lactic Acid 0.7 Calcium 8.4 Magnesium 2.0 Total Bilirubin 0.4 Direct Bilirubin 0.1 AST 23 ALT 6 Alkaline Phosphatase 103 Troponin I High Sens 8.8 B-Natriuretic Peptide 912 H Total Protein 7.0 Albumin 3.0 L Lipase 12 Urine Color Yellow Urine Appearance Clear Urine pH 5.5 Ur Specific [place] 1.010 Urine Protein 300 (3+) H Urine Glucose (UA) 100 H Urine Ketones Negative Urine Blood Moderate (2+) H Urine Nitrite Negative Ur Leukocyte Esterase Trace H Urine RBC 3-5 H Urine WBC 11-20 Ur Squamous Epith Cells 6-10 Other Crystals Present Urine Bacteria 3+ Hyaline Casts 0-2 Influenza Type A (PCR) NEGATIVE Influenza Type B (PCR) NEGATIVE RSV RNA Qual (PCR) NEGATIVE SARS-CoV-2 RNA (RT-PCR) NEGATIVE Imaging Radiologist's Impressions: Impressions Chest X-Ray 04/07/24 10:52 IMPRESSION: Increased bilateral moderate pleural effusions and bibasilar consolidations, right greater than left. Electronically signed by: Argentina Hampton MD 04/07/2024 12:43 PM EST RP Chest CT 04/07/24 11:29 IMPRESSION: Pulmonary edema and bilateral pleural effusions, large volume. Cardiogenic versus nephrogenic among other etiologies. Fleischner guidelines were followed. Electronically signed by: Farzad Castillo MD 04/07/2024 12:59 PM EST RP Abdomen/Pelvis CT 04/07/24 12:16 IMPRESSION: Bilateral pleural effusions, large volume with atelectasis versus infiltrates, new since prior exam. Concerning choledocholithiasis. No intestinal obstruction pattern. Ascites, small to moderate volume. Fleischner guidelines were followed. Electronically signed by: Farzad Castillo MD 04/07/2024 02:28 PM EST RP Assessment and Plan (1) CAP (community acquired pneumonia): Status: Acute (2) Congestive heart failure (CHF): Status: Acute (3) Bilateral pleural effusion: Status: Acute (4) Sepsis: Status: Acute Plan Queta Loya is a 53 y/o woman w/ PMHx significant for COPD -home O2 2L, DMII, HFrEF, HTN among others presenting with fever, dyspnea and hypoxia. # Acute on chronic hypoxic respiratory failure 2/2 Acute on chronic diastolic CHF, bilateral pleural effusions, Start IV lasix 40 bid repeat CXR and consider thoracentesis if indicated follow BNP # pneumonia Complicated with sepsis blood cultures pending IV ceftriaxone and Azithromycin # CKD3 stable Avoid nephrotoxic agents Follow BMP # Essential hypertension. Continue amlodipine. Hold Losartan for now # Type 2 diabetes mellitus. SSI, POC # Hyperlipidemia. Continue statin. DVT prophylaxis: Lovenox Code status: Full Patient will need hospitalization 2 overnight for acute on chronic hypoxic respiratory failure treatment with supplemental oxygen, IV antibiotic therapy and diuresis pending final blood cultures Quality Stroke Does the patient have a stroke diagnosis?: No VTE Prior VTE?: No VTE Risk Level:: Medical - moderate - high VTE Device Contraindication: Treatment Not Indicated VTE Drug Contraindication: N/A - Med Ordered
--- NOTE | 2024-04-07 17:00 | PHA.MEDREC ---
Pharmacy Consult ? Medication Reconciliation Pharmacy has completed the medication reconciliation. Patient is a poor historian. Made several attempts to call patients son Bin left message. Utilized claims to confirm med list. Will update med rec when/IF son calls back
[2024-04-07] MEDS: cefTRIAXone sodium 1 GM VIAL IVPUSH (18:06)
[2024-04-07] MEDS: Enoxaparin Sodium 40 MG/0.4 ML SYRINGE SUBCUT (18:06)
[2024-04-07] MEDS: Azithromycin 500 MG in 0.9 % Sodium Chloride 250 ML 125 MG IV (18:07)
[2024-04-07 18:32] LABS: Glucose, Whole Blood 88 mg/dL (60-115)
[2024-04-07 21:03] LABS: Glucose, Whole Blood 131 mg/dL (60-115)
--- NOTE | 2024-04-07 21:33 | PM.GICN ---
History of Present Illness Data of Consult Service Date: 04/07/24 Requesting physician: Ilsa Bhardwaj Primary Care Provider: Unknown Physician HPI Reason for consult: abn imaging 53 y/o woman w/ hx of COPD -home O2 2L, DMII, HFrEF, HTN who I am seeing for assessment of abdominal pain and abn imaging. Patient noted 2-3 d of severe 10/10 mid abdominal pain without radiaiton and no exacerbating or relieving factors but with nausea, no relieving or worsening factors. She denies GERD, dysphagia or diarrhea but admits to constipation for 3 d or so. she denies chest pain, palpitations, SOB, nausea, vomiting, diarrhea or urinary symptoms. No fevers or chills and no cough or sputum Imaging - CT chest, A/P- infiltrates and pl effusions, calcificiations possibly in CBD, ansarca labs:- chronic stable anemia, raised BNP, neg Trop Review of Systems Review of Systems: Constitutional : No Weight loss, No Fever, No Chills ENT/Mouth : No sore throat, No Rhinorrhea Eyes: No Swelling, No Redness Cardiovascular : No Chest Pain, No SOB, No Edema Respiratory : No Cough, No Sputum, No Wheezing Gastrointestinal : see HPI Genitourinary : NO Dysuria, No Urinary Frequency, No Hematuria, No Urgency Musculoskeletal : + joint pain, No Myalgias, No Joint Swelling Skin : No Skin Lesions, No rash Neuro : No Weakness, No Numbness, No Dizziness, No Headache Psych : No Anxiety/Panic, No Depression Heme/Lymph: No Bruising, No Lymphadenopathy Endocrine : No Polyuria, No Polydipsia All other systems reviewed and are negative. [facility] Past Medical History Medical History Hypertension Symptomatic anemia Brain lesion Iron deficiency anemia HLD (hyperlipidemia) Anemia Depression Type 2 diabetes mellitus Family History Family History Other Hypertension Pertinent family history: denies fh of liver disease Social History Social History Household Members: Family Household Members Other:: Daughter Housing: Apartment Do you presently have visiting nurse or other home services: No Unable to assess alcohol history related to: Unable to respond Alcohol intake: former Patient Tobacco Use Status: Never used Tobacco e-Cigarette/Vaping Use: Never Used Second Hand Smoke Exposure: No Advance Directives: Yes Advance Directives on File: Yes Advance Directives Date on File: 06/19/21 Do you have a plan to hurt others: No Plan Nutrition Risks: No Nutritional Risk service: No Current occupational status: unemployed Meds Allergies Allergy/AdvReac Type Severity Reaction Status Date / Time shrimp Allergy Swelling Verified 04/07/24 10:49 Active Medications: Current Medications Acetaminophen (Acetaminophen 325 Mg Tablet) 650 mg PO Q6H PRN PRN Reason: Pain, Mild (Pain Scale 1-3), fever or headache Benzonatate (Benzonatate 100 Mg Capsule) 100 mg PO TID PRN PRN Reason: Cough Calcium Carbonate (Calcium Carbonate 750 Mg Tab.Chew) 750 mg PO Q4H PRN PRN Reason: Heartburn Ceftriaxone Sodium (Ceftriaxone Sodium 1 Gm Vial) 1 gm IVPUSH Q24H [facility] Last Admin: 04/07/24 18:06 Dose: 1 gm Enoxaparin Sodium (Enoxaparin Sodium 40 Mg/0.4 Ml Syringe) 40 mg SUBCUT Q24H [facility] Last Admin: 04/07/24 18:06 Dose: 40 mg Azithromycin 500 mg/ Sodium (Chloride) 250 mls @ 125 mls/hr IV Q24H [facility] Last Admin: 04/07/24 18:07 Dose: 125 mls/hr Insulin Human Lispro (Insulin Lispro 100 Unit/Ml 3 Ml Vial) 0 unit SUBCUT QIDACHS [facility]; Protocol Last Admin: 04/07/24 21:10 Dose: Not Given Magnesium Hydroxide (Milk Of Magnesia 30 Ml Oral.Susp) 30 ml PO DAILY PRN PRN Reason: Constipation Melatonin (Melatonin 3 Mg Tablet) 6 mg PO BEDTIME PRN PRN Reason: Insomnia Ondansetron HCl (Ondansetron Hcl 4 Mg/2 Ml Vial) 4 mg IVPUSH Q8H PRN PRN Reason: Nausea and Vomiting Sodium Chloride (0.9 % Sodium Chloride Flush 3 Ml Syringe) [facility] Home Medications ?Medication ?Instructions ?Recorded ?Confirmed ?Last Taken ?Type aspirin 81 mg tablet,delayed 1 tab PO DAILY@0900 07/21/22 04/07/24 02/07/24 History release ferrous sulfate 324 mg (65 mg 324 mg PO Q OTHER DAY 04/07/24 04/07/24 Unknown History iron) tablet,delayed release losartan 25 mg tablet 25 mg PO DAILY 04/07/24 04/07/24 Unknown History omeprazole 40 mg capsule,delayed 40 mg PO QAM 04/07/24 04/07/24 Unknown History release Physical Exam Vital Signs: Vital Signs: Last Vital Signs Temp 98.2 F 04/07/24 19:57 Pulse 96 04/07/24 19:57 Resp 16 04/07/24 19:57 BP 143/71 H 04/07/24 19:57 Pulse Ox 92 04/07/24 19:57 O2 Del Method Nasal Cannula 04/07/24 19:57 O2 Flow Rate 2 04/07/24 19:57 Oxygen Flow Rate 2 04/07/24 10:37 BMI result Body Mass Index 27.3 EXAM: GENERAL: The patient is frail VITAL SIGNS:see workflow HEENT: Nonicteric sclerae, PERRLA, EOMI. Oropharynx clear. Moist mucous membranes. Conjunctivae appear well perfused. No thyroid mass. CHEST: Chest wall is nontender. HEART: Regular rate and rhythm without murmurs. LUNGS: reduced BS at bases ABDOMEN: Soft, positive bowel sounds, mildly tender mid abdomen, no organomegaly.no flank tenderness SKIN: No rash, no excessive bruising, petechiae, or purpura. NEUROLOGIC: Cranial nerves II-XII intact without motor/sensory deficit. Psych: normal affect Results Labs 04/08/24 04:13 04/08/24 04:13 Labs: Short CBC 04/07/24 Range/Units 11:25 WBC 14.4 H (4.8-10.8) X10*3/uL Hgb 8.7 L (12.0-16.0) g/dl Hct 25.4 L (37.0-47.0) % Plt Count 174 (160-400) X10*3/uL BMP 04/07/24 11:25 Sodium 135 Potassium 3.8 Chloride 102 Carbon Dioxide 26 BUN 17 H Creatinine 1.71 H Calcium 8.4 Liver Function 04/07/24 Range/Units 11:25 Total Bilirubin 0.4 (0.0-1.0) mg/dL Direct Bilirubin 0.1 (0.0-0.5) mg/dL AST 23 (5-31) U/L ALT 6 (0-31) U/L Alkaline Phosphatase 103 (39-117) U/L Albumin 3.0 L (3.5-5.0) g/dL Urine 04/07/24 Range/Units 13:24 Urine Color Yellow Urine Appearance Clear Urine pH 5.5 (5.0-9.0) Ur Specific [place] 1.010 (1.005-1.025) Urine Protein 300 (3+) H (Neg-Trace) mg/dL Urine Glucose (UA) 100 H (Negative) mg/dL Imaging CT scan - abdomen: Attestation: I personally reviewed and interpreted this imaging study as follows: (clips GB fossa, calcification possibly in line of cbd, ansarca -pl effusions, infiltrates ) My impression: cbd Assessment and Plan (1) CHF (congestive heart failure): Qualifiers: Heart failure type: unspecified Status: Acute Plan 1/ Abn imaging with abdominal pain, features more suggestive of CHF or pneumonia may have bowel edema causing her abdominal pain or 2/2 constipation. Her LFT are normal, uncertain what the calcifications are seen on CT PLAN: 1/ Work up for her elevated bnp and possible CHF vs pneumonia 2/ miralax and colace 3/ mrcp at future date -trend LFT, 4/ if ongoign abdo paint then lactate and check CTA if renal fn allows or duplex Procedures Date of Service Date of Service: 04/08/24
--- NOTE | 2024-04-07 22:58 | MHC.EDTECH ---
this tech took over care @6301, when rounding the pt was witnessed sleeping in the stretcher, w/ equal unlabored respirations present
--- NOTE | 2024-04-07 23:56 | PC.NURSE ---
cleaned and changed pt of urinary incontinence and liquid stool. Linen changed as well.
[2024-04-08] VITALS (13 sets, daily range): BP systolic 146–177; BP diastolic 59–95; PULSE 87–98; RESP 12–20; TEMP 36.8–37.3; O2SAT 92–97
[2024-04-08] MEDS: 0.9 % Sodium Chloride Flush 3 ML SYRINGE IVFLUSH ×3 (00:36→17:34)
[2024-04-08 04:46] LABS: MANUAL DIFF FLAG NO
[2024-04-08 04:48] LABS: Basophils Percent Auto 0.2 % (0-2); Eosinophils Percent Auto 0.1 % (0-4); Hematocrit 24.7 % (37.0-47.0); Hemoglobin 8.3 g/dl (12.0-16.0); Imm Gran Abs Auto 0.08 X10*3/uL (0.00-0.03); Imm Gran Pct Auto 0.6 % (0.0-0.4); Lymphocytes Absolute Auto 1.1 X10*3/uL (1.2-4.9); Lymphocytes Percent Auto 7.3 % (20-40); Mean Corpuscular HGB Conc 33.6 g/dl (31.0-35.0); Mean Corpuscular Hemoglobin 27.9 pg (27.0-33.0); Mean Corpuscular Volume 83.2 fL (80.0-98.0); Mean Platelet Volume 8.5 fL (9.4-12.3); Monocytes Absolute Auto 0.5 X10*3/uL (0.1-1.2); Monocytes Percent Auto 3.3 % (2-11); Neutrophils Absolute Auto 12.7 x10*3/uL (2.0-8.3); Neutrophils Percent Auto 88.5 % (45-73); Platelet Count 154 X10*3/uL (160-400); Red Blood Count 2.97 X10*6/uL (4.20-5.50); Red Cell Distribution Width 14.5 % (11.0-16.0); White Blood Count 14.3 X10*3/uL (4.8-10.8)
[2024-04-08 05:08] LABS: B Type Natriuretic Peptide 1174 pg/mL (<100)
[2024-04-08 05:17] LABS: Alanine Aminotransferase < 6 U/L (0-31); Albumin Level 2.6 g/dL (3.5-5.0); Anion Gap 13 (12-20); Aspartate Amino Transferase 17 U/L (5-31); Bilirubin Total 0.3 mg/dL (0.0-1.0); Blood Urea Nitrogen 18 mg/dL (9-16); Calcium 8.4 mg/dL (8.4-10.2); Carbon Dioxide 24 mmol/L (22-29); Chloride 103 mmol/L (96-108); Creatinine Clr Calc Pharmacy 32.2; Estimated Glomerular Filt Rate 29; Glucose Random 101 mg/dL (60-115); Potassium 3.4 mmol/L (3.3-5.1); Sodium 137 mmol/L (135-145); Total Protein 6.2 g/dL (6.5-8.0)
[2024-04-08 05:28] LABS: Alkaline Phosphatase 90 U/L (39-117)
--- NOTE | 2024-04-08 07:30 | PC.NURSE ---
Resumed care of pt at 0700. Pt up in bed resting quietly, respirations even and unlabored, crackles heard in lower lobes, on 2L O2 NC maintaining O2 sat 94%-97%, s1 and s2 heard, normal sinus on surveillance monitor, HR- 60s, abdomen soft, tender on palpation. Plan for thoracentesis today. Call sampson within reach, all needs met at this time.
[2024-04-08 08:10] LABS: Glucose, Whole Blood 87 mg/dL (60-115)
--- NOTE | 2024-04-08 09:00 | PC.NURSE ---
Pt cleaned up and repositioned in bed. New linens and purewick placed. Call sampson within reach, all needs met at this time.
[2024-04-08] MEDS: cefEPime HCl/D5W 2 GM/50 ML PIGGYBACK IV ×2 (09:24→20:39)
[2024-04-08] MEDS: Omeprazole 40 MG CAPSULE.DR PO (09:31)
[2024-04-08] MEDS: Ferrous Sulfate 324 MG TABLET.DR PO (09:31)
[2024-04-08] MEDS: Aspirin Enteric Coated 81 MG TABLET.DR PO (09:32)
[2024-04-08] MEDS: Furosemide 40 MG/4 ML VIAL IVPUSH ×2 (09:32→18:02)
[2024-04-08] MEDS: amLODIPine Besylate 10 MG TABLET PO (09:32)
--- NOTE | 2024-04-08 10:14 | P.PNIM_ITS ---
Subjective Subjective Date of Service: 04/08/24 Interval History: seen and evaluated this morning feels little better no other events Review of Systems Review of Systems: Yes all other systems are reviewed and are negative Physical Exam 2 Vital Signs: Vital Signs: Last Vital Signs Temp 98.9 F 04/08/24 09:42 Pulse 95 04/08/24 09:42 Resp 14 04/08/24 09:42 BP 169/64 H 04/08/24 09:42 Pulse Ox 92 04/08/24 09:42 O2 Del Method Nasal Cannula 04/08/24 09:42 O2 Flow Rate 2 04/08/24 09:42 Oxygen Flow Rate 2 04/07/24 10:37 BMI result Body Mass Index 27.3 Const: Other: Constitutional : Awake, interactive, not in distress Neck : Normal inspection, Supple Cardiovascular : RRR, no JVP, trace lower extremity edema Respiratory : fair bilateral air entry, basal crackles, no wheezing , On O2 supplement Gastrointestinal: soft, lax, Normal bowel sounds, Non tender Skin : Warm, Dry Neurological : Alert & oriented x3, No focal deficit Objective Data Active Medications Acetaminophen (Acetaminophen 325 Mg Tablet) 650 mg PO Q6H PRN PRN Reason: Pain, Mild (Pain Scale 1-3), fever or headache Amlodipine Besylate (Amlodipine Besylate 10 Mg Tablet) 10 mg PO DAILY [facility]; Protocol Last Admin: 04/08/24 09:32 Dose: 10 mg Documented By: MAXIMUS Aspirin (Aspirin Enteric Coated 81 Mg Tablet.) 81 mg PO DAILY@0900 [facility] Last Admin: 04/08/24 09:32 Dose: 81 mg Documented By: MAXIMUS Benzonatate (Benzonatate 100 Mg Capsule) 100 mg PO TID PRN PRN Reason: Cough Calcium Carbonate (Calcium Carbonate 750 Mg Tab.Chew) 750 mg PO Q4H PRN PRN Reason: Heartburn Enoxaparin Sodium (Enoxaparin Sodium 40 Mg/0.4 Ml Syringe) 40 mg SUBCUT Q24H [facility] Last Admin: 04/07/24 18:06 Dose: 40 mg Documented By: MARCY Ferrous Sulfate (Ferrous Sulfate 324 Mg Tablet.) 324 mg PO Q48H [facility] Last Admin: 04/08/24 09:31 Dose: 324 mg Documented By: MAXIMUS Furosemide (Furosemide 40 Mg/4 Ml Vial) 40 mg IVPUSH BID@0900,1800 [facility]; Protocol Last Admin: 04/08/24 09:32 Dose: 40 mg Documented By: MAXIMUS Gabapentin (Gabapentin 100 Mg Capsule) 100 mg PO BEDTIME [facility] Azithromycin 500 mg/ Sodium (Chloride) 250 mls @ 125 mls/hr IV Q24H [facility] Last Infusion: 04/08/24 00:35 Dose: Infused Documented By: MEL-KIRIT Cefepime HCl (Maxipime) 2 gm in 50 mls @ 100 mls/hr IV Q12H [facility] Last Admin: 04/08/24 09:24 Dose: 100 mls/hr Documented By: MAXIMUS Insulin Glargine (Insulin Glargine,Hum.Rec.Anlog 100 Unit/Ml 10 Ml Vial) 7 unit SUBCUT BEDTIME [facility] Insulin Human Lispro (Insulin Lispro 100 Unit/Ml 3 Ml Vial) 0 unit SUBCUT QIDACHS [facility]; Protocol Last Admin: 04/08/24 09:06 Dose: Not Given Documented By: MAXIMUS Non-Admin Reason: No Insulin Coverage Comments: POC 87, no insulin coverage. Lactulose (Lactulose 20 Gm/30 Ml Solution) 10 gm PO BID PRN PRN Reason: constipation Magnesium Hydroxide (Milk Of Magnesia 30 Ml Oral.Susp) 30 ml PO DAILY PRN PRN Reason: Constipation Melatonin (Melatonin 3 Mg Tablet) 6 mg PO BEDTIME PRN PRN Reason: Insomnia Omeprazole (Omeprazole 40 Mg Capsule.Dr) 40 mg PO DAILY@0630 [facility] Last Admin: 04/08/24 09:31 Dose: 40 mg Documented By: MAXIMUS Ondansetron HCl (Ondansetron Hcl 4 Mg/2 Ml Vial) 4 mg IVPUSH Q8H PRN PRN Reason: Nausea and Vomiting Sodium Chloride (0.9 % Sodium Chloride Flush 3 Ml Syringe) 3 ml IVFLUSH QSHIFT [facility] Last Admin: 04/08/24 09:32 Dose: 3 ml Documented By: MAXIMUS Labs 04/08/24 04:13 04/08/24 04:13 Labs: Laboratory Results - last 24 hr 04/07/24 04/07/24 04/07/24 11:25 12:43 13:24 MCV 83.3 MCH 28.5 MCHC 34.3 RDW 14.5 Plt Count 174 MPV 8.3 L Immature Gran % (Auto) 0.5 H Neut % (Auto) 82.4 H Lymph % (Auto) 12.3 L [place] % (Auto) 4.5 Eos % (Auto) 0.1 Baso % (Auto) 0.2 Lymph # (Auto) 1.8 [place] # (Auto) 0.7 Eos # (Auto) 0.0 Baso # (Auto) 0.0 Abs Immat Gran (auto) 0.07 H Absolute Neuts (auto) 11.8 H Absolute Nucleated RBC 0.000 Nucleated RBC % (auto) 0.0 Anion Gap 11 L Estim Creat Clear Calc 33.9 Estimated GFR 31 POC Glucose Random Glucose 110 Lactic Acid 0.7 Calcium 8.4 Magnesium 2.0 Total Bilirubin 0.4 Direct Bilirubin 0.1 AST 23 ALT 6 Alkaline Phosphatase 103 Troponin I High Sens 8.8 B-Natriuretic Peptide 912 H Total Protein 7.0 Albumin 3.0 L Lipase 12 Urine Color Yellow Urine Appearance Clear Urine pH 5.5 Ur Specific [place] 1.010 Urine Protein 300 (3+) H Urine Glucose (UA) 100 H Urine Ketones Negative Urine Blood Moderate (2+) H Urine Nitrite Negative Ur Leukocyte Esterase Trace H Urine RBC 3-5 H Urine WBC 11-20 Ur Squamous Epith Cells 6-10 Other Crystals Present Urine Bacteria 3+ Hyaline Casts 0-2 Influenza Type A (PCR) NEGATIVE Influenza Type B (PCR) NEGATIVE RSV RNA Qual (PCR) NEGATIVE SARS-CoV-2 RNA (RT-PCR) NEGATIVE 04/07/24 04/07/24 04/08/24 18:29 20:59 04:13 MCV 83.2 MCH 27.9 MCHC 33.6 RDW 14.5 Plt Count 154 L MPV 8.5 L Immature Gran % (Auto) 0.6 H Neut % (Auto) 88.5 H Lymph % (Auto) 7.3 L [place] % (Auto) 3.3 Eos % (Auto) 0.1 Baso % (Auto) 0.2 Lymph # (Auto) 1.1 L [place] # (Auto) 0.5 Eos # (Auto) 0.0 Baso # (Auto) 0.0 Abs Immat Gran (auto) 0.08 H Absolute Neuts (auto) 12.7 H Absolute Nucleated RBC 0.000 Nucleated RBC % (auto) 0.0 Anion Gap 13 Estim Creat Clear Calc 32.2 Estimated GFR 29 POC Glucose 88 131 H Random Glucose 101 Lactic Acid Calcium 8.4 Magnesium Total Bilirubin 0.3 Direct Bilirubin AST 17 ALT < 6 Alkaline Phosphatase 90 Troponin I High Sens B-Natriuretic Peptide 1174 H Total Protein 6.2 L Albumin 2.6 L Lipase Urine Color Urine Appearance Urine pH Ur Specific [place] Urine Protein Urine Glucose (UA) Urine Ketones Urine Blood Urine Nitrite Ur Leukocyte Esterase Urine RBC Urine WBC Ur Squamous Epith Cells Other Crystals Urine Bacteria Hyaline Casts Influenza Type A (PCR) Influenza Type B (PCR) RSV RNA Qual (PCR) SARS-CoV-2 RNA (RT-PCR) 04/08/24 08:06 MCV MCH MCHC RDW Plt Count MPV Immature Gran % (Auto) Neut % (Auto) Lymph % (Auto) [place] % (Auto) Eos % (Auto) Baso % (Auto) Lymph # (Auto) [place] # (Auto) Eos # (Auto) Baso # (Auto) Abs Immat Gran (auto) Absolute Neuts (auto) Absolute Nucleated RBC Nucleated RBC % (auto) Anion Gap Estim Creat Clear Calc Estimated GFR POC Glucose 87 Random Glucose Lactic Acid Calcium Magnesium Total Bilirubin Direct Bilirubin AST ALT Alkaline Phosphatase Troponin I High Sens B-Natriuretic Peptide Total Protein Albumin Lipase Urine Color Urine Appearance Urine pH Ur Specific [place] Urine Protein Urine Glucose (UA) Urine Ketones Urine Blood Urine Nitrite Ur Leukocyte Esterase Urine RBC Urine WBC Ur Squamous Epith Cells Other Crystals Urine Bacteria Hyaline Casts Influenza Type A (PCR) Influenza Type B (PCR) RSV RNA Qual (PCR) SARS-CoV-2 RNA (RT-PCR) Microbiology Microbiology Results: Microbiology 04/07/24 12:43 Blood Culture - Preliminary Blood - Venous Prelim: GNR Gram Stain only 04/07/24 12:43 Blood Culture - Preliminary Blood - Venous Prelim: GNR Gram Stain only Assessment and Plan (1) Acute hypoxic respiratory failure: Status: Acute (2) Sepsis: Status: Acute (3) CAP (community acquired pneumonia): Status: Acute (4) Congestive heart failure (CHF): Status: Acute (5) Bilateral pleural effusion: Status: Acute Plan Queta Loya is a 53 y/o woman w/ PMHx significant for COPD -home O2 2L, DMII, HFrEF, HTN among others presenting with fever, dyspnea and hypoxia. # Acute on chronic hypoxic respiratory failure 2/2 Acute on chronic diastolic CHF, bilateral pleural effusions, improving Continue IV lasix 40 IV bid, decrease if better by tomorrow CT scan showing large effusions bilaterally To do thoracentesis follow BNP # pneumonia Complicated with sepsis blood cultures pending IV ceftriaxone and Azithromycin # CKD3 mildly worse Avoid nephrotoxic agents Follow BMP # Essential hypertension. Continue amlodipine. Hold Losartan for now # Type 2 diabetes mellitus. SSI, POC # Hyperlipidemia. Continue statin. DVT prophylaxis: Lovenox Code status: Full Patient will need hospitalization overnight for acute on chronic hypoxic respiratory failure treatment with supplemental oxygen, IV antibiotic therapy and diuresis pending final blood cultures Quality Stroke Does the patient have a stroke diagnosis?: No VTE Prior VTE?: No VTE Risk Level:: Medical - moderate - high VTE Device Contraindication: Treatment Not Indicated VTE Drug Contraindication: N/A - Med Ordered
--- NOTE | 2024-04-08 11:30 | PC.NURSE ---
This RN at bedside with IR PAs for thoracentesis. Pt tolerated procedure well, 1.1 L of yellow fluid removed. DSD placed. Pt repositioned back in bed, resting quietly at this time, call sampson within reach.
[2024-04-08] MEDS: Lidocaine HCl 1 % 20 ML VIAL 5 ML SUBCUT (12:16)
--- NOTE | 2024-04-08 12:46 | PM.PROC ---
Brief Operative Note Date of procedure: 04/08/24 Pre-op diagnosis: Bilateral pleural effusions R>L. Post-op diagnosis: same Procedure: US right thoracentesis 1.1L yellow fluid removed. No immediate complications. Anesthesia: local
[2024-04-08 13:24] LABS: Glucose, Whole Blood 79 mg/dL (60-115)
[2024-04-08 17:24] LABS: Glucose, Whole Blood 88 mg/dL (60-115)
[2024-04-08] MEDS: Enoxaparin Sodium 40 MG/0.4 ML SYRINGE SUBCUT (18:01)
[2024-04-08] MEDS: Azithromycin 500 MG in 0.9 % Sodium Chloride 250 ML 125 MG IV (18:01)
--- NOTE | 2024-04-08 18:36 | PC.NURSE ---
Pt incontinent of urine/stool. Cleaned up, new purewick, all new linens. Call sampson within reach, all needs met at this time.
[2024-04-08 20:24] LABS: Glucose, Whole Blood 81 mg/dL (60-115)
[2024-04-08] MEDS: Gabapentin 100 MG CAPSULE PO (20:38)
[2024-04-08] MEDS: Insulin Glargine,Hum.rec.anlog 100 UNIT/ML 10 ML VIAL 7 UNIT SUBCUT (20:39)
[2024-04-08 23:15] LABS: Glucose, Whole Blood 92 mg/dL (60-115)
[2024-04-09] VITALS (11 sets, daily range): BP systolic 112–161; BP diastolic 60–80; PULSE 77–93; RESP 14–20; TEMP 36.2–36.7; O2SAT 96–100
[2024-04-09] MEDS: Omeprazole 40 MG CAPSULE.DR PO (05:07)
[2024-04-09] MEDS: 0.9 % Sodium Chloride Flush 3 ML SYRINGE IVFLUSH ×4 (05:14→21:25)
[2024-04-09 07:10] LABS: Glucose, Whole Blood 48 mg/dL (60-115)
[2024-04-09 07:31] LABS: Glucose, Whole Blood 95 mg/dL (60-115)
--- NOTE | 2024-04-09 07:33 | PC.NURSE ---
POC 48 at 6:59 , pt asymptomatic, hypoglycemia protocol initiated , MD Adams notified , repeat blood sugar 95 at 7:28
[2024-04-09 07:38] LABS: MANUAL DIFF FLAG NO
[2024-04-09] MEDS: cefEPime HCl/D5W 2 GM/50 ML PIGGYBACK IV ×2 (07:53→21:04)
[2024-04-09 08:01] LABS: Basophils Percent Auto 0.2 % (0-2); Eosinophils Absolute Auto 0.1 X10*3/uL (0.0-0.4); Eosinophils Percent Auto 1.2 % (0-4); Hematocrit 23.8 % (37.0-47.0); Hemoglobin 8.1 g/dl (12.0-16.0); Imm Gran Abs Auto 0.05 X10*3/uL (0.00-0.03); Imm Gran Pct Auto 0.5 % (0.0-0.4); Lymphocytes Absolute Auto 1.5 X10*3/uL (1.2-4.9); Lymphocytes Percent Auto 13.7 % (20-40); Mean Corpuscular Hemoglobin 28.2 pg (27.0-33.0); Mean Corpuscular Volume 82.9 fL (80.0-98.0); Mean Platelet Volume 9.2 fL (9.4-12.3); Monocytes Absolute Auto 0.6 X10*3/uL (0.1-1.2); Monocytes Percent Auto 5.6 % (2-11); Neutrophils Absolute Auto 8.3 x10*3/uL (2.0-8.3); Neutrophils Percent Auto 78.8 % (45-73); Platelet Count 176 X10*3/uL (160-400); Red Blood Count 2.87 X10*6/uL (4.20-5.50); Red Cell Distribution Width 14.6 % (11.0-16.0); White Blood Count 10.6 X10*3/uL (4.8-10.8)
[2024-04-09] MEDS: amLODIPine Besylate 10 MG TABLET PO (08:07)
[2024-04-09] MEDS: Aspirin Enteric Coated 81 MG TABLET.DR PO (08:07)
[2024-04-09] MEDS: Furosemide 40 MG/4 ML VIAL IVPUSH ×2 (08:07→17:57)
[2024-04-09 08:18] LABS: B Type Natriuretic Peptide 634 pg/mL (<100)
--- NOTE | 2024-04-09 08:25 | MHC.CM.PN ---
Patient recently dc'd from [facility] to [facility] for STR, but is admitted again, now from home. Patient is documented to require a 2 assist transfer and may benefit from a PT Eval to assist with disposition. CM has initiated and will follow for dc planning. Patient uses home O2, a walker and her PCP is Dr. Neelima Al. HCP on file indicates that Dave is the HCP.
[2024-04-09 08:54] LABS: Anion Gap 13 (12-20); Blood Urea Nitrogen 20 mg/dL (9-16); Calcium 8.5 mg/dL (8.4-10.2); Carbon Dioxide 27 mmol/L (22-29); Chloride 102 mmol/L (96-108); Creatinine Clr Calc Pharmacy 35.4; Estimated Glomerular Filt Rate 33; Potassium 2.9 mmol/L (3.3-5.1); Sodium 139 mmol/L (135-145)
[2024-04-09 08:58] LABS: Glucose Random 45 mg/dL (60-115)
[2024-04-09] MEDS: Potassium Chloride Packet 20 MEQ PACKET 40 MEQ PO ×2 (09:12→11:19)
[2024-04-09] MEDS: Potassium Chloride/H20 10 MEQ/100 ML PIGGYBACK 100 MEQ IV ×2 (09:36→11:19)
--- NOTE | 2024-04-09 10:27 | MHC.CM.PN ---
PT is recommending STR; CM will follow.
[2024-04-09 11:06] LABS: Glucose, Whole Blood 161 mg/dL (60-115)
--- NOTE | 2024-04-09 12:24 | HO.PM.IMPN ---
Subjective Subjective Date of Service: 04/09/24 Interval History: seen and evaluated this morning feels better post Thoracentesis , decrease O2 requiriments blood cultures positive for Serratia no other events Review of Systems Review of Systems: Yes all other systems are reviewed and are negative Physical Exam Vital Signs: Vital Signs: Last Vital Signs Temp 97.1 F 04/09/24 11:04 Pulse 92 04/09/24 11:04 Resp 18 04/09/24 11:04 BP 161/77 H 04/09/24 11:04 Pulse Ox 96 04/09/24 11:04 O2 Del Method Nasal Cannula 04/09/24 11:04 O2 Flow Rate 2 04/09/24 11:04 Oxygen Flow Rate 2 04/07/24 10:37 BMI result Body Mass Index 27.3 Const: Other: Constitutional : Awake, interactive, not in distress Neck : Normal inspection, Supple Cardiovascular : RRR, no JVP, trace lower extremity edema Respiratory : decrease bilateral air entry on left side, basal crackles, no wheezing , On O2 supplement Gastrointestinal: soft, lax, Normal bowel sounds, Non tender Skin : Warm, Dry Neurological : Alert & oriented x3, No focal deficit Objective Data Active Medications Acetaminophen (Acetaminophen 325 Mg Tablet) 650 mg PO Q6H PRN PRN Reason: Pain, Mild (Pain Scale 1-3), fever or headache Amlodipine Besylate (Amlodipine Besylate 10 Mg Tablet) 10 mg PO DAILY [facility]; Protocol Last Admin: 04/09/24 08:07 Dose: 10 mg Documented By: JHONNY Aspirin (Aspirin Enteric Coated 81 Mg Tablet.) 81 mg PO DAILY@0900 [facility] Last Admin: 04/09/24 08:07 Dose: 81 mg Documented By: JHONNY Benzonatate (Benzonatate 100 Mg Capsule) 100 mg PO TID PRN PRN Reason: Cough Calcium Carbonate (Calcium Carbonate 750 Mg Tab.Chew) 750 mg PO Q4H PRN PRN Reason: Heartburn Enoxaparin Sodium (Enoxaparin Sodium 40 Mg/0.4 Ml Syringe) 40 mg SUBCUT Q24H [facility] Last Admin: 04/08/24 18:01 Dose: 40 mg Documented By: MAXIMUS Ferrous Sulfate (Ferrous Sulfate 324 Mg Tablet.) 324 mg PO Q48H [facility] Last Admin: 04/08/24 09:31 Dose: 324 mg Documented By: MAXIMUS Furosemide (Furosemide 40 Mg/4 Ml Vial) 40 mg IVPUSH BID@0900,1800 [facility]; Protocol Last Admin: 04/09/24 08:07 Dose: 40 mg Documented By: JHONNY Gabapentin (Gabapentin 100 Mg Capsule) 100 mg PO BEDTIME [facility] Last Admin: 04/08/24 20:38 Dose: 100 mg Documented By: QUEENIE Cefepime HCl (Maxipime) 2 gm in 50 mls @ 100 mls/hr IV Q12H [facility] Last Infusion: 04/09/24 08:25 Dose: Infused Documented By: JHONNY Insulin Glargine (Insulin Glargine,Hum.Rec.Anlog 100 Unit/Ml 10 Ml Vial) 7 unit SUBCUT BEDTIME [facility] Last Admin: 04/08/24 20:39 Dose: 7 unit Documented By: QUEENIE Insulin Human Lispro (Insulin Lispro 100 Unit/Ml 3 Ml Vial) 0 unit SUBCUT QIDACHS [facility]; Protocol Last Admin: 04/09/24 07:53 Dose: Not Given Documented By: JHONNY Non-Admin Reason: No Insulin Coverage Lactulose (Lactulose 20 Gm/30 Ml Solution) 10 gm PO BID PRN PRN Reason: constipation Magnesium Hydroxide (Milk Of Magnesia 30 Ml Oral.Susp) 30 ml PO DAILY PRN PRN Reason: Constipation Melatonin (Melatonin 3 Mg Tablet) 6 mg PO BEDTIME PRN PRN Reason: Insomnia Morphine Sulfate (Morphine Sulfate 2 Mg/Ml Cartridge) 2 mg IVPUSH Q4H PRN; Protocol PRN Reason: Pain, Severe (Pain Scale 7-10) Omeprazole (Omeprazole 40 Mg Capsule.Dr) 40 mg PO DAILY@0630 [facility] Last Admin: 04/09/24 05:07 Dose: 40 mg Documented By: CELESTE Ondansetron HCl (Ondansetron Hcl 4 Mg/2 Ml Vial) 4 mg IVPUSH Q8H PRN PRN Reason: Nausea and Vomiting Sodium Chloride (0.9 % Sodium Chloride Flush 3 Ml Syringe) 3 ml IVFLUSH QSHIFT [facility] Last Admin: 04/09/24 07:53 Dose: 3 ml Documented By: JHONNY Labs 04/09/24 06:50 04/09/24 06:50 Labs: Laboratory Results - last 24 hr 04/08/24 04/08/24 04/08/24 13:18 17:20 20:16 MCV MCH MCHC RDW Plt Count MPV Immature Gran % (Auto) Neut % (Auto) Lymph % (Auto) [place] % (Auto) Eos % (Auto) Baso % (Auto) Lymph # (Auto) [place] # (Auto) Eos # (Auto) Baso # (Auto) Abs Immat Gran (auto) Absolute Neuts (auto) Absolute Nucleated RBC Nucleated RBC % (auto) Anion Gap Estim Creat Clear Calc Estimated GFR POC Glucose 79 88 81 Random Glucose Calcium B-Natriuretic Peptide 04/08/24 04/09/24 04/09/24 23:07 06:50 06:59 MCV 82.9 MCH 28.2 MCHC 34.0 RDW 14.6 Plt Count 176 MPV 9.2 L Immature Gran % (Auto) 0.5 H Neut % (Auto) 78.8 H Lymph % (Auto) 13.7 L [place] % (Auto) 5.6 Eos % (Auto) 1.2 Baso % (Auto) 0.2 Lymph # (Auto) 1.5 [place] # (Auto) 0.6 Eos # (Auto) 0.1 Baso # (Auto) 0.0 Abs Immat Gran (auto) 0.05 H Absolute Neuts (auto) 8.3 Absolute Nucleated RBC 0.000 Nucleated RBC % (auto) 0.0 Anion Gap 13 Estim Creat Clear Calc 35.4 Estimated GFR 33 POC Glucose 92 48 L* Random Glucose 45 L* Calcium 8.5 B-Natriuretic Peptide 634 H 04/09/24 04/09/24 07:27 11:03 MCV MCH MCHC RDW Plt Count MPV Immature Gran % (Auto) Neut % (Auto) Lymph % (Auto) [place] % (Auto) Eos % (Auto) Baso % (Auto) Lymph # (Auto) [place] # (Auto) Eos # (Auto) Baso # (Auto) Abs Immat Gran (auto) Absolute Neuts (auto) Absolute Nucleated RBC Nucleated RBC % (auto) Anion Gap Estim Creat Clear Calc Estimated GFR POC Glucose 95 161 H Random Glucose Calcium B-Natriuretic Peptide Microbiology Microbiology Results: Microbiology 04/07/24 12:43 Blood Culture - Preliminary Blood - Venous Gram negative savi 04/07/24 12:43 Blood Culture - Preliminary Blood - Venous Gram negative savi 04/07/24 Unknown Urine Culture - Final Urine clean catch - Clean Catch Midstream Serratia marcescens Assessment and Plan (1) Acute hypoxic respiratory failure: Status: Acute (2) Sepsis: Status: Acute (3) CAP (community acquired pneumonia): Status: Acute (4) Bacterial infection due to Serratia: Status: Acute (5) UTI (urinary tract infection): Status: Acute Plan Queta Loya is a 53 y/o woman w/ PMHx significant for COPD -home O2 2L, DMII, HFrEF, HTN among others presenting with fever, dyspnea and hypoxia. # Acute on chronic hypoxic respiratory failure 2/2 Acute on chronic diastolic CHF, bilateral pleural effusions, improving Continue IV lasix 40 IV bid, decrease if better by tomorrow CT scan showing large effusions bilaterally Rt side Thora done, 1L removed To do thoracentesis Left side today follow BNP Wean O2 down as tolerated # Sepsis 2/2 Serratia UTI and Bacteremia with Atelactasis\pneumonia blood cultures positive DC Azithromycin, on Cefepime ID consult # Physical deconditionigp PT eval # CKD3 mildly worse Avoid nephrotoxic agents Follow BMP # Essential hypertension. Continue amlodipine. Hold Losartan for now # Type 2 diabetes mellitus. SSI, POC # Hyperlipidemia. Continue statin. DVT prophylaxis: Lovenox Code status: Full Patient will need hospitalization overnight for acute on chronic hypoxic respiratory failure treatment with supplemental oxygen, IV antibiotic therapy and diuresis pending final blood cultures Quality Stroke Does the patient have a stroke diagnosis?: No VTE Prior VTE?: No VTE Risk Level:: Medical - moderate - high VTE Device Contraindication: Treatment Not Indicated VTE Drug Contraindication: N/A - Med Ordered
[2024-04-09] MEDS: Lidocaine HCl 1 % MPF 5 ML VIAL SUBCUT (13:02)
[2024-04-09 16:27] LABS: Glucose, Whole Blood 150 mg/dL (60-115)
[2024-04-09] MEDS: Enoxaparin Sodium 40 MG/0.4 ML SYRINGE SUBCUT (17:57)
[2024-04-09 20:53] LABS: Glucose, Whole Blood 244 mg/dL (60-115)
[2024-04-09] MEDS: Insulin Lispro 100 UNIT/ML 3 ML VIAL SUBCUT (21:03)
[2024-04-09] MEDS: Gabapentin 100 MG CAPSULE PO (21:03)
[2024-04-10 03:08] VITALS: BP 154/67; PULSE 88; RESP 20; TEMP 36.4; O2SAT 99
[2024-04-10] MEDS: Omeprazole 40 MG CAPSULE.DR PO (05:12)
[2024-04-10 06:48] LABS: MANUAL DIFF FLAG NO
[2024-04-10 07:06] LABS: Basophils Percent Auto 0.2 % (0-2); Eosinophils Absolute Auto 0.3 X10*3/uL (0.0-0.4); Eosinophils Percent Auto 2.7 % (0-4); Hemoglobin 8.6 g/dl (12.0-16.0); Imm Gran Abs Auto 0.05 X10*3/uL (0.00-0.03); Imm Gran Pct Auto 0.5 % (0.0-0.4); Lymphocytes Absolute Auto 2.1 X10*3/uL (1.2-4.9); Lymphocytes Percent Auto 21.8 % (20-40); Mean Corpuscular HGB Conc 33.1 g/dl (31.0-35.0); Mean Corpuscular Hemoglobin 27.8 pg (27.0-33.0); Mean Corpuscular Volume 84.1 fL (80.0-98.0); Mean Platelet Volume 8.6 fL (9.4-12.3); Monocytes Absolute Auto 0.8 X10*3/uL (0.1-1.2); Monocytes Percent Auto 8.2 % (2-11); Neutrophils Absolute Auto 6.5 x10*3/uL (2.0-8.3); Neutrophils Percent Auto 66.6 % (45-73); Platelet Count 204 X10*3/uL (160-400); Red Blood Count 3.09 X10*6/uL (4.20-5.50); Red Cell Distribution Width 14.8 % (11.0-16.0); White Blood Count 9.8 X10*3/uL (4.8-10.8)
[2024-04-10 07:17] LABS: Glucose, Whole Blood 179 mg/dL (60-115)
[2024-04-10 07:20] LABS: Anion Gap 14 (12-20); Blood Urea Nitrogen 24 mg/dL (9-16); Calcium 8.8 mg/dL (8.4-10.2); Carbon Dioxide 28 mmol/L (22-29); Chloride 99 mmol/L (96-108); Creatinine Clr Calc Pharmacy 30.9; Estimated Glomerular Filt Rate 28; Glucose Random 203 mg/dL (60-115); Potassium 4.9 mmol/L (3.3-5.1); Sodium 136 mmol/L (135-145)
[2024-04-10 07:28] VITALS: BP 156/76; PULSE 87; RESP 20; TEMP 36.5; O2SAT 99
[2024-04-10] MEDS: Insulin Lispro 100 UNIT/ML 3 ML VIAL SUBCUT ×4 (08:17→21:46)
[2024-04-10] MEDS: Ferrous Sulfate 324 MG TABLET.DR PO (08:17)
[2024-04-10] MEDS: Aspirin Enteric Coated 81 MG TABLET.DR PO (08:17)
[2024-04-10] MEDS: amLODIPine Besylate 10 MG TABLET PO (08:17)
[2024-04-10] MEDS: Furosemide 40 MG/4 ML VIAL IVPUSH ×2 (08:18→17:11)
[2024-04-10] MEDS: 0.9 % Sodium Chloride Flush 3 ML SYRINGE IVFLUSH ×3 (08:18→21:45)
[2024-04-10] MEDS: cefTRIAXone sodium 2 GM VIAL IVPUSH (08:35)
[2024-04-10 09:19] LABS: Glucose, Whole Blood 179 mg/dL (60-115)
--- NOTE | 2024-04-10 10:29 | MHC.CM.PN ---
Per ROUNDS discussion, Patient is not yet medically cleared for dc (pending ID); PT is recommending STR and CM will continue to follow.
[2024-04-10 11:01] LABS: Glucose, Whole Blood 169 mg/dL (60-115)
[2024-04-10 11:12] VITALS: BP 155/76; PULSE 86; RESP 20; TEMP 36.3; O2SAT 100
--- NOTE | 2024-04-10 12:21 | P.PNIM_ITS ---
Subjective Subjective Date of Service: 04/10/24 Interval History: denies fever/chills denies dysuria dyspnea improved This history was taken in Syriac from the patient. Review of Systems Review of Systems: Yes all other systems are reviewed and are negative Physical Exam 2 Vital Signs: Vital Signs: Last Vital Signs Temp 97.4 F 04/10/24 11:12 Pulse 86 04/10/24 11:12 Resp 20 04/10/24 11:12 BP 155/76 H 04/10/24 11:12 Pulse Ox 100 04/10/24 11:12 O2 Del Method Nasal Cannula 04/10/24 11:12 O2 Flow Rate 2 04/10/24 11:12 Oxygen Flow Rate 2 04/07/24 10:37 BMI result Body Mass Index 27.3 Gen: in no acute distress HEENT: sclera anicteric, moist mucus membranes Neck: supple Lungs: diminished bilaterally Heart: regular rate and rhythm, no murmurs Abd: soft, non-tender, non-distended Ext: trace bilateral leg edema Skin: warm/well-perfused Neuro: alert and oriented x3, no focal findings Psych: appropriate affect Objective Data Active Medications Acetaminophen (Acetaminophen 325 Mg Tablet) 650 mg PO Q6H PRN PRN Reason: Pain, Mild (Pain Scale 1-3), fever or headache Amlodipine Besylate (Amlodipine Besylate 10 Mg Tablet) 10 mg PO DAILY [facility]; Protocol Last Admin: 04/10/24 08:17 Dose: 10 mg Documented By: TARUN Aspirin (Aspirin Enteric Coated 81 Mg Tablet.Dr) 81 mg PO DAILY@0900 [facility] Last Admin: 04/10/24 08:17 Dose: 81 mg Documented By: TARUN Benzonatate (Benzonatate 100 Mg Capsule) 100 mg PO TID PRN PRN Reason: Cough Calcium Carbonate (Calcium Carbonate 750 Mg Tab.Chew) 750 mg PO Q4H PRN PRN Reason: Heartburn Ceftriaxone Sodium (Ceftriaxone Sodium 2 Gm Vial) 2 gm IVPUSH Q24H [facility] Last Admin: 04/10/24 08:35 Dose: 2 gm Documented By: TRAUN Enoxaparin Sodium (Enoxaparin Sodium 40 Mg/0.4 Ml Syringe) 40 mg SUBCUT Q24H [facility] [place] Last Admin: 04/09/24 17:57 Dose: 40 mg Documented By: JHONNY Ferrous Sulfate (Ferrous Sulfate 324 Mg Tablet.) 324 mg PO Q48H [facility] [place] Last Admin: 04/10/24 08:17 Dose: 324 mg Documented By: TARUN Furosemide (Furosemide 40 Mg/4 Ml Vial) 40 mg IVPUSH BID@0900,1800 [facility]; Protocol Last Admin: 04/10/24 08:18 Dose: 40 mg Documented By: TARUN Gabapentin (Gabapentin 100 Mg Capsule) 100 mg PO BEDTIME [facility] [place] Last Admin: 04/09/24 21:03 Dose: 100 mg Documented By: CELESTE Insulin Glargine (Insulin Glargine,Hum.Rec.Anlog 100 Unit/Ml 10 Ml Vial) 7 unit SUBCUT BEDTIME [facility] [place] Last Admin: 04/09/24 22:02 Dose: Not Given Documented By: CELESTE Non-Admin Reason: pt reporting no appetite Insulin Human Lispro (Insulin Lispro 100 Unit/Ml 3 Ml Vial) 0 unit SUBCUT QIDACHS [facility] [place]; Protocol Last Admin: 04/10/24 11:17 Dose: 2 unit Documented By: TARUN Lactulose (Lactulose 20 Gm/30 Ml Solution) 10 gm PO BID PRN PRN Reason: constipation Magnesium Hydroxide (Milk Of Magnesia 30 Ml Oral.Susp) 30 ml PO DAILY PRN PRN Reason: Constipation Melatonin (Melatonin 3 Mg Tablet) 6 mg PO BEDTIME PRN PRN Reason: Insomnia Morphine Sulfate (Morphine Sulfate 2 Mg/Ml Cartridge) 2 mg IVPUSH Q4H PRN; Protocol PRN Reason: Pain, Severe (Pain Scale 7-10) Omeprazole (Omeprazole 40 Mg Capsule.) 40 mg PO DAILY@0630 [facility] [place] Last Admin: 04/10/24 05:12 Dose: 40 mg Documented By: CELESTE Ondansetron HCl (Ondansetron Hcl 4 Mg/2 Ml Vial) 4 mg IVPUSH Q8H PRN PRN Reason: Nausea and Vomiting Sodium Chloride (0.9 % Sodium Chloride Flush 3 Ml Syringe) 3 ml IVFLUSH QSHIFT [facility] [place] Last Admin: 04/10/24 08:18 Dose: 3 ml Documented By: TARUN Labs 04/10/24 05:56 04/10/24 05:56 Labs: Laboratory Results - last 24 hr 1204/09/24 04/10/24 16:24 20:49 05:56 MCV 84.1 MCH 27.8 MCHC 33.1 RDW 14.8 Plt Count 204 MPV 8.6 L Immature Gran % (Auto) 0.5 H Neut % (Auto) 66.6 Lymph % (Auto) 21.8 [place] % (Auto) 8.2 Eos % (Auto) 2.7 Baso % (Auto) 0.2 Lymph # (Auto) 2.1 [place] # (Auto) 0.8 Eos # (Auto) 0.3 Baso # (Auto) 0.0 Abs Immat Gran (auto) 0.05 H Absolute Neuts (auto) 6.5 Absolute Nucleated RBC 0.000 Nucleated RBC % (auto) 0.0 Anion Gap 14 Estim Creat Clear Calc 30.9 Estimated GFR 28 POC Glucose 150 H 244 H Random Glucose 203 H Calcium 8.8 04/10/24 04/10/24 04/10/24 07:08 09:12 10:58 MCV MCH MCHC RDW Plt Count MPV Immature Gran % (Auto) Neut % (Auto) Lymph % (Auto) [place] % (Auto) Eos % (Auto) Baso % (Auto) Lymph # (Auto) [place] # (Auto) Eos # (Auto) Baso # (Auto) Abs Immat Gran (auto) Absolute Neuts (auto) Absolute Nucleated RBC Nucleated RBC % (auto) Anion Gap Estim Creat Clear Calc Estimated GFR POC Glucose 179 H 179 H 169 H Random Glucose Calcium Microbiology Microbiology Results: Microbiology 04/07/24 12:43 Blood Culture - Final Blood - Venous Serratia marcescens 04/07/24 12:43 Blood Culture - Final Blood - Venous Serratia marcescens 04/07/24 Unknown Urine Culture - Final Urine clean catch - Clean Catch Midstream Serratia marcescens Assessment and Plan (1) Acute hypoxic respiratory failure: Status: Acute (2) Sepsis: Status: Acute (3) CAP (community acquired pneumonia): Status: Acute (4) Bacterial infection due to Serratia: Status: Acute (5) UTI (urinary tract infection): Status: Acute Plan d4 for 53yo M with COPD on home O2 2L, DM2, HFrEF, HTN who presented with fever, dyspnea, and hypoxia and was found to be septic from bacteremia/UTI acute/chronic hypoxic resp failure due to acute/chronic HFpEF with bilateral pleural effusions - R-sided thoracentesis done 04/08 with 1100 mL fluid removed - L-sided thoracentesis done 04/09 with 800 mL fluid removed - continue IV furosemide 1 more day, trend BNP, monitor I/O + BMP/Mg - on home O2 2L Serratia marcescens UTI/bacteremia - cefepime 04/07-04/10, change to ceftriaxone 04/10- - ID consult pending DILLON/CKD3 - monitor Cr with diuresis; baseline around 1.4; hold losartan CBD dilation with calcifications - likely chronic; per GI, consider outpt MRCP HTN - continue amlodipine; hold losartan DM2 - basal/bolus insulin HLD - statin VTE ppx - enoxaparin dispo - STR In my clinical judgment, the patient requires continued inpatient hospitalization for the following reasons: IV ABX, IV diuresis, specialty consultation Total time managing care of this patient today: 40 minutes. Quality Stroke Does the patient have a stroke diagnosis?: No VTE Prior VTE?: No VTE Risk Level:: Medical - moderate - high VTE Device Contraindication: Treatment Not Indicated VTE Drug Contraindication: N/A - Med Ordered
[2024-04-10 15:05] LABS: Glucose, Whole Blood 185 mg/dL (60-115)
[2024-04-10 16:00] VITALS: BP 153/74; PULSE 87; RESP 18; TEMP 36.7; O2SAT 100
[2024-04-10 17:09] LABS: Glucose, Whole Blood 169 mg/dL (60-115)
[2024-04-10] MEDS: Enoxaparin Sodium 40 MG/0.4 ML SYRINGE SUBCUT (17:10)
[2024-04-10 20:00] VITALS: BP 148/69; PULSE 84; RESP 14; TEMP 36.6; O2SAT 100
[2024-04-10 20:14] LABS: Glucose, Whole Blood 212 mg/dL (60-115)
[2024-04-10] MEDS: Insulin Glargine,Hum.rec.anlog 100 UNIT/ML 10 ML VIAL 7 UNIT SUBCUT (21:45)
[2024-04-10] MEDS: Gabapentin 100 MG CAPSULE PO (21:45)
--- NOTE | 2024-04-10 22:49 | P.CNID_ITS ---
History of Present Illness Data of Consult Service Date: 04/10/24 Requesting physician: Javan Cardenas Primary Care Provider: Neelima Gómez MD HPI Reason for consult: bactermia,serratia She presents with weakness and chills. She had abdominal disomfort over last day w [id number] Review of Systems 2 Review of Systems: Yes all other systems are reviewed and are negative PMFSH Past Medical History Medical History Urinary tract infection Hypertension Symptomatic anemia Brain lesion Iron deficiency anemia HLD (hyperlipidemia) Anemia Depression Type 2 diabetes mellitus Family History Family History Other Hypertension Social History Social History Household Members: Children Household Members Other:: Daughter Housing: Apartment Do you presently have visiting nurse or other home services: Yes Unable to assess alcohol history related to: Unable to respond Alcohol intake: former Patient Tobacco Use Status: Never used Tobacco e-Cigarette/Vaping Use: Never Used Second Hand Smoke Exposure: No Advance Directives Date on File: 06/19/21 service: No Current occupational status: unemployed Meds Allergies Allergy/AdvReac Type Severity Reaction Status Date / Time shrimp Allergy Swelling Verified 04/07/24 10:49 Active Medications: Current Medications Acetaminophen (Acetaminophen 325 Mg Tablet) 650 mg PO Q6H PRN PRN Reason: Pain, Mild (Pain Scale 1-3), fever or headache Amlodipine Besylate (Amlodipine Besylate 10 Mg Tablet) 10 mg PO DAILY [facility]; Protocol Last Admin: 04/10/24 08:17 Dose: 10 mg Aspirin (Aspirin Enteric Coated 81 Mg Tablet.) 81 mg PO DAILY@0900 [facility] Last Admin: 04/10/24 08:17 Dose: 81 mg Benzonatate (Benzonatate 100 Mg Capsule) 100 mg PO TID PRN PRN Reason: Cough Calcium Carbonate (Calcium Carbonate 750 Mg Tab.Chew) 750 mg PO Q4H PRN PRN Reason: Heartburn Enoxaparin Sodium (Enoxaparin Sodium 40 Mg/0.4 Ml Syringe) 40 mg SUBCUT Q24H [facility] Last Admin: 04/10/24 17:10 Dose: 40 mg Ferrous Sulfate (Ferrous Sulfate 324 Mg Tablet.) 324 mg PO Q48H [facility] Last Admin: 04/10/24 08:17 Dose: 324 mg Furosemide (Furosemide 40 Mg/4 Ml Vial) 40 mg IVPUSH BID@0900,1800 [facility]; Protocol Last Admin: 04/10/24 17:11 Dose: 40 mg Gabapentin (Gabapentin 100 Mg Capsule) 100 mg PO BEDTIME [facility] Last Admin: 04/10/24 21:45 Dose: 100 mg Insulin Glargine (Insulin Glargine,Hum.Rec.Anlog 100 Unit/Ml 10 Ml Vial) 7 unit SUBCUT BEDTIME [facility] Last Admin: 04/10/24 21:45 Dose: 7 unit Insulin Human Lispro (Insulin Lispro 100 Unit/Ml 3 Ml Vial) 0 unit SUBCUT QIDACHS [facility]; Protocol Last Admin: 04/10/24 21:46 Dose: 4 unit Lactulose (Lactulose 20 Gm/30 Ml Solution) 10 gm PO BID PRN PRN Reason: constipation Levofloxacin (Levofloxacin 750 Mg Tablet) 750 mg PO Q24H [facility] Magnesium Hydroxide (Milk Of Magnesia 30 Ml Oral.Susp) 30 ml PO DAILY PRN PRN Reason: Constipation Melatonin (Melatonin 3 Mg Tablet) 6 mg PO BEDTIME PRN PRN Reason: Insomnia Morphine Sulfate (Morphine Sulfate 2 Mg/Ml Cartridge) 2 mg IVPUSH Q4H PRN; Protocol PRN Reason: Pain, Severe (Pain Scale 7-10) Omeprazole (Omeprazole 40 Mg Capsule.) 40 mg PO DAILY@0630 [facility] Last Admin: 04/10/24 05:12 Dose: 40 mg Ondansetron HCl (Ondansetron Hcl 4 Mg/2 Ml Vial) 4 mg IVPUSH Q8H PRN PRN Reason: Nausea and Vomiting Sodium Chloride (0.9 % Sodium Chloride Flush 3 Ml Syringe) 3 ml IVFLUSH QSHIFT [facility] Last Admin: 04/10/24 21:45 Dose: 3 ml Home Medications ?Medication ?Instructions ?Recorded ?Confirmed ?Last Taken ?Type aspirin 81 mg tablet,delayed 1 tab PO DAILY@0900 07/21/22 04/07/24 02/07/24 History release ferrous sulfate 324 mg (65 mg 324 mg PO Q OTHER DAY 04/07/24 04/07/24 Unknown History iron) tablet,delayed release losartan 25 mg tablet 25 mg PO DAILY 04/07/24 04/07/24 Unknown History omeprazole 40 mg capsule,delayed 40 mg PO QAM 04/07/24 04/07/24 Unknown History release Physical Exam 2 Vital Signs: Vital Signs: Last Vital Signs Temp 97.9 F 04/10/24 20:00 Pulse 84 04/10/24 20:00 Resp 14 04/10/24 20:00 BP 148/69 H 04/10/24 20:00 Pulse Ox 100 04/10/24 20:00 O2 Del Method Room Air 04/10/24 20:00 O2 Flow Rate 2 04/10/24 16:00 Oxygen Flow Rate 2 04/07/24 10:37 BMI result Body Mass Index 27.3 Const: General: cooperative HEENT: Head: Yes normal to inspection Face and sinus: Yes normal facial exam Mouth: Normal oral and palatal mucosa present Teeth and gingiva: d entition normal Eyes: General: appearance normal, both eyes and all related structures P upils: Equal, round and reactive pupils present Resp: Effort & Inspection: normal respiratory effort Cardio: Rate: regular rate Rhythm: regular rhythm GI: Palpation (GI): Soft to palpation and nontender : General: Yes no CVA tenderness Back/Spine/Pelvis: Back: no CVA tenderness Skin: General skin exam: no rashes or lesions noted Neuro: General: moves all extremities Cranial nerves: Yes Equal, round and reactive pupils present Extrem: General: Yes normal to inspection Psych: Appearance: grossly normal Results Labs 04/10/24 05:56 04/10/24 05:56 Labs: Short CBC 04/10/24 Range/Units 05:56 WBC 9.8 (4.8-10.8) X10*3/uL Hgb 8.6 L (12.0-16.0) g/dl Hct 26.0 L (37.0-47.0) % Plt Count 204 (160-400) X10*3/uL BMP 04/10/24 05:56 Sodium 136 Potassium 4.9 D Chloride 99 Carbon Dioxide 28 BUN 24 H Creatinine 1.88 H Calcium 8.8 Microbiology Microbiology Results: Microbiology 04/07/24 12:43 Blood - Venous Blood Culture - Final Serratia marcescens 04/07/24 12:43 Blood - Venous Blood Culture - Final Serratia marcescens 04/07/24 Unknown Urine clean catch - Clean Catch Midstream Urine Culture - Final Serratia marcescens Assessment and Plan (1) Bacterial infection due to Serratia: Status: Acute Plan SINCE cephalosporins develop resistance quickly change to po Levaquin fo 14 d from first negative blood culture `
[2024-04-11] VITALS (7 sets, daily range): BP systolic 132–154; BP diastolic 56–84; PULSE 83–94; RESP 17–20; TEMP 36.2–37.3; O2SAT 94–100
[2024-04-11] MEDS: levoFLOXacin 750 MG TABLET PO ×2 (02:11→21:04)
[2024-04-11] MEDS: Omeprazole 40 MG CAPSULE.DR PO (05:09)
[2024-04-11 05:15] LABS: Glucose, Whole Blood 124 mg/dL (60-115)
[2024-04-11 07:22] LABS: Glucose, Whole Blood 177 mg/dL (60-115)
[2024-04-11 08:06] LABS: B Type Natriuretic Peptide 375 pg/mL (<100)
[2024-04-11] MEDS: Furosemide 40 MG/4 ML VIAL IVPUSH (08:13)
[2024-04-11 08:14] LABS: Anion Gap 12 (12-20); Blood Urea Nitrogen 28 mg/dL (9-16); Calcium 8.8 mg/dL (8.4-10.2); Carbon Dioxide 33 mmol/L (22-29); Chloride 98 mmol/L (96-108); Creatinine Clr Calc Pharmacy 35.1; Estimated Glomerular Filt Rate 32; Glucose Random 198 mg/dL (60-115); Magnesium 1.9 mg/dL (1.6-2.6); Potassium 4.3 mmol/L (3.3-5.1); Sodium 139 mmol/L (135-145)
[2024-04-11] MEDS: amLODIPine Besylate 10 MG TABLET PO (08:14)
[2024-04-11] MEDS: 0.9 % Sodium Chloride Flush 3 ML SYRINGE IVFLUSH ×2 (08:14→17:11)
[2024-04-11] MEDS: Aspirin Enteric Coated 81 MG TABLET.DR PO (08:14)
[2024-04-11] MEDS: Insulin Lispro 100 UNIT/ML 3 ML VIAL SUBCUT ×2 (08:14→21:00)
[2024-04-11 11:43] LABS: Glucose, Whole Blood 108 mg/dL (60-115)
--- NOTE | 2024-04-11 13:46 | HO.PM.IMPN ---
Subjective Subjective Date of Service: 04/11/24 Interval History: This history was taken in Frisian from the patient. A little dizzy No fever No cough Review of Systems Review of Systems: Yes all other systems are reviewed and are negative Physical Exam Vital Signs: Vital Signs: Last Vital Signs Temp 99.2 F 04/11/24 11:17 Pulse 88 04/11/24 11:17 Resp 18 04/11/24 11:17 BP 154/73 H 04/11/24 11:17 Pulse Ox 100 04/11/24 11:17 O2 Del Method Nasal Cannula 04/11/24 11:17 O2 Flow Rate 2 04/11/24 11:17 Oxygen Flow Rate 2 04/07/24 10:37 BMI result Body Mass Index 27.3 Gen: in no acute distress HEENT: sclera anicteric, moist mucus membranes Neck: supple Lungs: diminished bilaterally Heart: regular rate and rhythm, no murmurs Abd: soft, non-tender, non-distended Ext: trace bilateral leg edema Skin: warm/well-perfused Neuro: alert and oriented x3, no focal findings Psych: appropriate affect Objective Data Active Medications Acetaminophen (Acetaminophen 325 Mg Tablet) 650 mg PO Q6H PRN PRN Reason: Pain, Mild (Pain Scale 1-3), fever or headache Amlodipine Besylate (Amlodipine Besylate 10 Mg Tablet) 10 mg PO DAILY [facility]; Protocol Last Admin: 04/11/24 08:14 Dose: 10 mg Documented By: TORIN Aspirin (Aspirin Enteric Coated 81 Mg Tablet.) 81 mg PO DAILY@0900 [facility] Last Admin: 04/11/24 08:14 Dose: 81 mg Documented By: TORIN Benzonatate (Benzonatate 100 Mg Capsule) 100 mg PO TID PRN PRN Reason: Cough Calcium Carbonate (Calcium Carbonate 750 Mg Tab.Chew) 750 mg PO Q4H PRN PRN Reason: Heartburn Enoxaparin Sodium (Enoxaparin Sodium 40 Mg/0.4 Ml Syringe) 40 mg SUBCUT Q24H [facility] Last Admin: 04/10/24 17:10 Dose: 40 mg Documented By: JHONNY Ferrous Sulfate (Ferrous Sulfate 324 Mg Tablet.) 324 mg PO Q48H [facility] Last Admin: 04/10/24 08:17 Dose: 324 mg Documented By: TARUN Furosemide (Furosemide 40 Mg Tablet) 40 mg PO DAILY [facility]; Protocol Gabapentin (Gabapentin 100 Mg Capsule) 100 mg PO BEDTIME [facility] Last Admin: 04/10/24 21:45 Dose: 100 mg Documented By: MATTIE Insulin Glargine (Insulin Glargine,Hum.Rec.Anlog 100 Unit/Ml 10 Ml Vial) 7 unit SUBCUT BEDTIME [facility] Last Admin: 04/10/24 21:45 Dose: 7 unit Documented By: MATTIE Insulin Human Lispro (Insulin Lispro 100 Unit/Ml 3 Ml Vial) 0 unit SUBCUT QIDACHS [facility]; Protocol Last Admin: 04/11/24 12:36 Dose: Not Given Documented By: TORIN Non-Admin Reason: poc= 108 Lactulose (Lactulose 20 Gm/30 Ml Solution) 10 gm PO BID PRN PRN Reason: constipation Levofloxacin (Levofloxacin 750 Mg Tablet) 750 mg PO Q24H [facility] Last Admin: 04/11/24 02:11 Dose: 750 mg Documented By: MATTIE Magnesium Hydroxide (Milk Of Magnesia 30 Ml Oral.Susp) 30 ml PO DAILY PRN PRN Reason: Constipation Melatonin (Melatonin 3 Mg Tablet) 6 mg PO BEDTIME PRN PRN Reason: Insomnia Morphine Sulfate (Morphine Sulfate 2 Mg/Ml Cartridge) 2 mg IVPUSH Q4H PRN; Protocol PRN Reason: Pain, Severe (Pain Scale 7-10) Omeprazole (Omeprazole 40 Mg Capsule.Dr) 40 mg PO DAILY@0630 [facility] Last Admin: 04/11/24 05:09 Dose: 40 mg Documented By: MATTIE Ondansetron HCl (Ondansetron Hcl 4 Mg/2 Ml Vial) 4 mg IVPUSH Q8H PRN PRN Reason: Nausea and Vomiting Sodium Chloride (0.9 % Sodium Chloride Flush 3 Ml Syringe) 3 ml IVFLUSH QSHIFT [facility] Last Admin: 04/11/24 08:14 Dose: 3 ml Documented By: TORIN Labs 04/10/24 05:56 04/11/24 07:12 Labs: Laboratory Results - last 24 hr 04/10/24 04/10/24 04/10/24 14:59 17:05 20:06 Hold Purple Top Anion Gap Estim Creat Clear Calc Estimated GFR POC Glucose 185 H 169 H 212 H Random Glucose Calcium Magnesium B-Natriuretic Peptide 04/11/24 04/11/24 04/11/24 05:10 07:12 07:13 Hold Purple Top SEE NOTE Anion Gap 12 Estim Creat Clear Calc 35.1 Estimated GFR 32 POC Glucose 124 H 177 H Random Glucose 198 H Calcium 8.8 Magnesium 1.9 B-Natriuretic Peptide 375 H 04/11/24 11:23 Hold Purple Top Anion Gap Estim Creat Clear Calc Estimated GFR POC Glucose 108 Random Glucose Calcium Magnesium B-Natriuretic Peptide Assessment and Plan (1) Acute hypoxic respiratory failure: Status: Acute (2) Sepsis: Status: Acute (3) CAP (community acquired pneumonia): Status: Acute (4) Bacterial infection due to Serratia: Status: Acute (5) UTI (urinary tract infection): Status: Acute Plan d45for 53yo M with COPD on home O2 2L, DM2, HFrEF, HTN who presented with fever, dyspnea, and hypoxia and was found to be septic from bacteremia/UTI acute/chronic hypoxic resp failure due to acute/chronic HFpEF with bilateral pleural effusions - R-sided thoracentesis done 04/08 with 1100 mL fluid removed - L-sided thoracentesis done 04/09 with 800 mL fluid removed - appears euvolemic after diuresing 2100 mL with IV furosemide; will change to PO furosemide - on home O2 2L Serratia marcescens UTI/bacteremia - cefepime 04/07-04/10, changed to ceftriaxone 04/10. ID consulted, changed to levofloxacin 04/10- and plan 14 days from 1st negative BCx, which were drawn 04/11 DILLON/CKD3 - monitor Cr with diuresis; perhaps was cardiorenal as SCr now improved CBD dilation with calcifications - likely chronic; per GI, consider outpt MRCP HTN - continue amlodipine; hold losartan DM2 - basal/bolus insulin HLD - statin VTE ppx - enoxaparin dispo - STR In my clinical judgment, the patient requires continued inpatient hospitalization for the following reasons: IV ABX, bacteremia Total time managing care of this patient today: 40 minutes. Quality Stroke Does the patient have a stroke diagnosis?: No VTE Prior VTE?: No VTE Risk Level:: Medical - moderate - high VTE Device Contraindication: Treatment Not Indicated VTE Drug Contraindication: N/A - Med Ordered
[2024-04-11 16:22] LABS: Glucose, Whole Blood 130 mg/dL (60-115)
[2024-04-11] MEDS: Enoxaparin Sodium 40 MG/0.4 ML SYRINGE SUBCUT (17:09)
[2024-04-11 20:33] LABS: Glucose, Whole Blood 207 mg/dL (60-115)
[2024-04-11] MEDS: Insulin Glargine,Hum.rec.anlog 100 UNIT/ML 10 ML VIAL 7 UNIT SUBCUT (21:00)
[2024-04-11] MEDS: Gabapentin 100 MG CAPSULE PO (21:00)
[2024-04-12] MEDS: ondansetron HCL 4 MG/2 ML VIAL IVPUSH (01:11)
[2024-04-12] MEDS: Milk of Magnesia 30 ML ORAL.SUSP PO (01:17)
[2024-04-12 04:00] VITALS: BP 130/76; PULSE 72; RESP 18; TEMP 36.2; O2SAT 93
[2024-04-12] MEDS: 0.9 % Sodium Chloride Flush 3 ML SYRINGE IVFLUSH ×4 (06:31→21:57)
[2024-04-12] MEDS: Omeprazole 40 MG CAPSULE.DR PO (07:27)
[2024-04-12 07:51] VITALS: BP 138/63; PULSE 82; RESP 17; TEMP 36.4; O2SAT 100
[2024-04-12 07:58] LABS: Glucose, Whole Blood 83 mg/dL (60-115)
[2024-04-12] MEDS: Aspirin Enteric Coated 81 MG TABLET.DR PO (09:18)
[2024-04-12] MEDS: Ferrous Sulfate 324 MG TABLET.DR PO (09:18)
[2024-04-12] MEDS: Furosemide 40 MG TABLET PO (09:19)
[2024-04-12] MEDS: amLODIPine Besylate 10 MG TABLET PO (09:19)
[2024-04-12] MEDS: Lactulose 20 GM/30 ML SOLUTION 10 GM PO ×2 (09:22→21:55)
[2024-04-12] MEDS: Gabapentin 100 MG CAPSULE PO ×3 (09:30→21:55)
[2024-04-12] MEDS: Lidocaine 4 % Patch ADH..PATCH 1 PATCH TRANSDERMA (09:32)
--- NOTE | 2024-04-12 10:38 | P.PNIM_ITS ---
Subjective Subjective Date of Service: 04/12/24 Interval History: This history was taken in Swedish from the patient. C/o bilateral foot burning pain, back pain No fever/chills No dyspnea Review of Systems Review of Systems: Yes all other systems are reviewed and are negative Physical Exam 2 Vital Signs: Vital Signs: Last Vital Signs Temp 97.6 F 04/12/24 07:51 Pulse 82 04/12/24 07:51 Resp 17 04/12/24 07:51 BP 138/63 04/12/24 07:51 Pulse Ox 100 04/12/24 07:51 O2 Del Method Nasal Cannula 04/12/24 07:51 O2 Flow Rate 2 04/12/24 07:51 Oxygen Flow Rate 2 04/07/24 10:37 BMI result Body Mass Index 27.3 Gen: in no acute distress HEENT: sclera anicteric, moist mucus membranes Neck: supple Lungs: diminished bilaterally Heart: regular rate and rhythm, no murmurs Abd: soft, non-tender, non-distended Ext: trace bilateral leg edema Skin: warm/well-perfused Neuro: alert and oriented x3, no focal findings Psych: appropriate affect Objective Data Active Medications Acetaminophen (Acetaminophen 325 Mg Tablet) 650 mg PO Q6H PRN PRN Reason: Pain, Mild (Pain Scale 1-3), fever or headache Amlodipine Besylate (Amlodipine Besylate 10 Mg Tablet) 10 mg PO DAILY [facility]; Protocol Last Admin: 04/12/24 09:19 Dose: 10 mg Documented By: BRUNO Aspirin (Aspirin Enteric Coated 81 Mg Tablet.) 81 mg PO DAILY@0900 [facility] Last Admin: 04/12/24 09:18 Dose: 81 mg Documented By: BRUNO Benzonatate (Benzonatate 100 Mg Capsule) 100 mg PO TID PRN PRN Reason: Cough Calcium Carbonate (Calcium Carbonate 750 Mg Tab.Chew) 750 mg PO Q4H PRN PRN Reason: Heartburn Enoxaparin Sodium (Enoxaparin Sodium 40 Mg/0.4 Ml Syringe) 40 mg SUBCUT Q24H [facility] Last Admin: 04/11/24 17:09 Dose: 40 mg Documented By: TORIN Ferrous Sulfate (Ferrous Sulfate 324 Mg Tablet.) 324 mg PO Q48H [facility] Last Admin: 04/12/24 09:18 Dose: 324 mg Documented By: BRUNO Furosemide (Furosemide 40 Mg Tablet) 40 mg PO DAILY [facility]; Protocol Last Admin: 04/12/24 09:19 Dose: 40 mg Documented By: BRUNO Gabapentin (Gabapentin 100 Mg Capsule) 100 mg PO TID [facility] Last Admin: 04/12/24 09:30 Dose: 100 mg Documented By: BRUNO Insulin Glargine (Insulin Glargine,Hum.Rec.Anlog 100 Unit/Ml 10 Ml Vial) 7 unit SUBCUT BEDTIME [facility] Last Admin: 04/11/24 21:00 Dose: 7 unit Documented By: TORIN Insulin Human Lispro (Insulin Lispro 100 Unit/Ml 3 Ml Vial) 0 unit SUBCUT QIDACHS [facility]; Protocol Last Admin: 04/12/24 09:16 Dose: Not Given Documented By: BRUNO Non-Admin Reason: No Insulin Coverage Lactulose (Lactulose 20 Gm/30 Ml Solution) 10 gm PO BID PRN PRN Reason: constipation Last Admin: 04/12/24 09:22 Dose: 10 gm Documented By: BRUNO Levofloxacin (Levofloxacin 750 Mg Tablet) 750 mg PO Q24H [facility] Last Admin: 04/11/24 21:04 Dose: 750 mg Documented By: TORIN Lidocaine (Lidocaine 4 % Patch Adh..Patch) 1 patch TRANSDERMA DAILY [facility]; Protocol Last Admin: 04/12/24 09:32 Dose: 1 patch Documented By: BRUNO Magnesium Hydroxide (Milk Of Magnesia 30 Ml Oral.Susp) 30 ml PO DAILY PRN PRN Reason: Constipation Last Admin: 04/12/24 01:17 Dose: 30 ml Documented By: MERARI Melatonin (Melatonin 3 Mg Tablet) 6 mg PO BEDTIME PRN PRN Reason: Insomnia Morphine Sulfate (Morphine Sulfate 2 Mg/Ml Cartridge) 2 mg IVPUSH Q4H PRN; Protocol PRN Reason: Pain, Severe (Pain Scale 7-10) Omeprazole (Omeprazole 40 Mg Capsule.Dr) 40 mg PO DAILY@0630 [facility] Last Admin: 04/12/24 07:27 Dose: 40 mg Documented By: MERARI Ondansetron HCl (Ondansetron Hcl 4 Mg/2 Ml Vial) 4 mg IVPUSH Q8H PRN PRN Reason: Nausea and Vomiting Last Admin: 04/12/24 01:11 Dose: 4 mg Documented By: MERARI Sodium Chloride (0.9 % Sodium Chloride Flush 3 Ml Syringe) 3 ml IVFLUSH QSHIFT [facility] Last Admin: 04/12/24 09:26 Dose: 3 ml Documented By: PHANLYM Labs 04/10/24 05:56 04/11/24 07:12 Labs: Laboratory Results - last 24 hr 04/11/24 04/11/24 04/11/24 11:23 16:17 20:30 POC Glucose 108 130 H 207 H 04/12/24 07:51 POC Glucose 83 Microbiology Microbiology Results: Microbiology 04/11/24 08:10 Blood Culture - Preliminary Blood - Venous No growth after 24 hours. 04/11/24 08:10 Blood Culture - Preliminary Blood - Venous No growth after 24 hours. Assessment and Plan (1) Acute hypoxic respiratory failure: Status: Acute (2) Sepsis: Status: Acute (3) CAP (community acquired pneumonia): Status: Acute (4) Bacterial infection due to Serratia: Status: Acute (5) UTI (urinary tract infection): Status: Acute Plan d6 for 53yo M with COPD on home O2 2L, DM2, HFrEF, HTN who presented with fever, dyspnea, and hypoxia and was found to be septic from bacteremia/UTI acute/chronic hypoxic resp failure due to acute/chronic HFpEF with bilateral pleural effusions - R-sided thoracentesis done 04/08 with 1100 mL fluid removed - L-sided thoracentesis done 04/09 with 800 mL fluid removed - appears euvolemic after diuresing with IV furosemide; changed to PO furosemide; neg 3500 mL this admission - on home O2 2L Serratia marcescens UTI/bacteremia - cefepime 04/07-04/10, changed to ceftriaxone 04/10. ID consulted, changed to levofloxacin 04/10- and plan 14 days from 1st negative BCx, which were drawn 04/11 DILLON/CKD3 - monitor Cr with diuresis; perhaps was cardiorenal as SCr now improved CBD dilation with calcifications - likely chronic; per GI, consider outpt MRCP HTN - continue amlodipine; hold losartan DM2 - basal/bolus insulin neuropathy - increase gabapentin to 100 mg tid HLD - statin VTE ppx - enoxaparin dispo - STR declined; so plan home with VNA if BCx negative 04/13 In my clinical judgment, the patient requires continued inpatient hospitalization for the following reasons: bacteremia Total time managing care of this patient today: 40 minutes. Quality Stroke Does the patient have a stroke diagnosis?: No VTE Prior VTE?: No VTE Risk Level:: Medical - moderate - high VTE Device Contraindication: Treatment Not Indicated VTE Drug Contraindication: N/A - Med Ordered
[2024-04-12 11:36] VITALS: BP 145/71; PULSE 86; RESP 17; TEMP 36.3; O2SAT 100
[2024-04-12 11:42] LABS: Glucose, Whole Blood 131 mg/dL (60-115)
[2024-04-12 15:47] VITALS: BP 135/80; PULSE 89; RESP 17; TEMP 36.3; O2SAT 100
[2024-04-12] MEDS: Enoxaparin Sodium 40 MG/0.4 ML SYRINGE SUBCUT (15:54)
[2024-04-12] MEDS: Acetaminophen 325 MG TABLET 650 MG PO ×2 (16:04→21:54)
[2024-04-12 16:14] LABS: Glucose, Whole Blood 153 mg/dL (60-115)
[2024-04-12] MEDS: Insulin Lispro 100 UNIT/ML 3 ML VIAL SUBCUT ×2 (16:49→21:56)
[2024-04-12 20:00] VITALS: BP 149/73; PULSE 83; RESP 20; TEMP 36.6; O2SAT 100
[2024-04-12 20:48] LABS: Glucose, Whole Blood 238 mg/dL (60-115)
[2024-04-12] MEDS: levoFLOXacin 750 MG TABLET PO (21:55)
[2024-04-12] MEDS: Insulin Glargine,Hum.rec.anlog 100 UNIT/ML 10 ML VIAL 7 UNIT SUBCUT (21:56)
[2024-04-13] VITALS (8 sets, daily range): BP systolic 120–156; BP diastolic 57–79; PULSE 75–89; RESP 16–20; TEMP 36.1–36.8; O2SAT 96–100
[2024-04-13] MEDS: ondansetron HCL 4 MG/2 ML VIAL IVPUSH (05:53)
[2024-04-13 08:03] LABS: Glucose, Whole Blood 95 mg/dL (60-115)
[2024-04-13] MEDS: Aspirin Enteric Coated 81 MG TABLET.DR PO (08:43)
[2024-04-13] MEDS: Gabapentin 100 MG CAPSULE PO ×3 (08:43→21:36)
[2024-04-13] MEDS: Furosemide 40 MG TABLET PO (08:43)
[2024-04-13] MEDS: amLODIPine Besylate 10 MG TABLET PO (08:43)
[2024-04-13] MEDS: Lidocaine 4 % Patch ADH..PATCH 1 PATCH TRANSDERMA (08:44)
[2024-04-13] MEDS: 0.9 % Sodium Chloride Flush 3 ML SYRINGE IVFLUSH ×2 (08:44→16:18)
[2024-04-13 11:55] LABS: Glucose, Whole Blood 183 mg/dL (60-115)
[2024-04-13] MEDS: Insulin Lispro 100 UNIT/ML 3 ML VIAL SUBCUT ×3 (12:01→21:37)
--- NOTE | 2024-04-13 12:02 | MHC.CM.PN ---
CM met with Patient at bedside to discuss dc planning.Patient has chosen [facility]. CM will follow.
--- NOTE | 2024-04-13 13:05 | PC.NURSE ---
pt scalp and hairs accessed thoroughly ,no lice was seen on the pt's hair or scalp or the linens, no lice eggs noted on the pt's hair,
--- NOTE | 2024-04-13 13:30 | P.PNIM_ITS ---
Subjective Subjective Date of Service: 04/13/24 Interval History: Complaining of dry skin both legs, pain in feet Denies shortness of breath, no fevers, no chills, no urinary symptoms. Review of Systems All other system reviewed and are negative. Physical Exam 2 Vital Signs: Vital Signs: Last Vital Signs Temp 97.2 F 04/13/24 11:50 Pulse 89 04/13/24 11:50 Resp 20 04/13/24 11:50 BP 154/73 H 04/13/24 11:50 Pulse Ox 100 04/13/24 11:50 O2 Del Method Nasal Cannula 04/13/24 11:50 O2 Flow Rate 2 04/13/24 11:50 Oxygen Flow Rate 2 04/07/24 10:37 BMI result Body Mass Index 27.3 Const: Other: Gen: in no acute distress HEENT: sclera anicteric, moist mucus membranes Neck: supple,no jvd Lungs: diminished bilaterally Heart: regular rate and rhythm, no murmurs Abd: soft, non-tender, non-distended Ext: trace bilateral leg edema Skin: warm/well-perfused Neuro: alert and oriented x3, no focal findings Psych: appropriate affect Hair no lice noted, dry scab right frontal scalp Objective Data Active Medications Acetaminophen (Acetaminophen 325 Mg Tablet) 650 mg PO Q6H PRN PRN Reason: Pain, Mild (Pain Scale 1-3), fever or headache Last Admin: 04/12/24 21:54 Dose: 650 mg Documented By: MATTIE Amlodipine Besylate (Amlodipine Besylate 10 Mg Tablet) 10 mg PO DAILY [facility]; Protocol Last Admin: 04/13/24 08:43 Dose: 10 mg Documented By: JHONNY Aspirin (Aspirin Enteric Coated 81 Mg Tablet.) 81 mg PO DAILY@0900 [facility] Last Admin: 04/13/24 08:43 Dose: 81 mg Documented By: JHONNY Benzonatate (Benzonatate 100 Mg Capsule) 100 mg PO TID PRN PRN Reason: Cough Calcium Carbonate (Calcium Carbonate 750 Mg Tab.Chew) 750 mg PO Q4H PRN PRN Reason: Heartburn Enoxaparin Sodium (Enoxaparin Sodium 40 Mg/0.4 Ml Syringe) 40 mg SUBCUT Q24H [facility] Last Admin: 04/12/24 15:54 Dose: 40 mg Documented By: BRUNO Ferrous Sulfate (Ferrous Sulfate 324 Mg Tablet.) 324 mg PO Q48H [facility] Last Admin: 04/12/24 09:18 Dose: 324 mg Documented By: BRUNO Furosemide (Furosemide 40 Mg Tablet) 40 mg PO DAILY [facility]; Protocol Last Admin: 04/13/24 08:43 Dose: 40 mg Documented By: JHONNY Gabapentin (Gabapentin 100 Mg Capsule) 100 mg PO TID [facility] Last Admin: 04/13/24 08:43 Dose: 100 mg Documented By: JHONNY Insulin Glargine (Insulin Glargine,Hum.Rec.Anlog 100 Unit/Ml 10 Ml Vial) 7 unit SUBCUT BEDTIME [facility] Last Admin: 04/12/24 21:56 Dose: 7 unit Documented By: MATTIE Insulin Human Lispro (Insulin Lispro 100 Unit/Ml 3 Ml Vial) 0 unit SUBCUT QIDACHS [facility]; Protocol Last Admin: 04/13/24 12:01 Dose: 2 unit Documented By: JHONNY Lactulose (Lactulose 20 Gm/30 Ml Solution) 10 gm PO BID PRN PRN Reason: constipation Last Admin: 04/12/24 21:55 Dose: 10 gm Documented By: MATTIE Comments: requested for constipation Levofloxacin (Levofloxacin 750 Mg Tablet) 750 mg PO Q24H [facility] Last Admin: 04/12/24 21:55 Dose: 750 mg Documented By: MATTIE Lidocaine (Lidocaine 4 % Patch Adh..Patch) 1 patch TRANSDERMA DAILY [facility]; Protocol Last Admin: 04/13/24 08:44 Dose: 1 patch Documented By: JHONNY Magnesium Hydroxide (Milk Of Magnesia 30 Ml Oral.Susp) 30 ml PO DAILY PRN PRN Reason: Constipation Last Admin: 04/12/24 01:17 Dose: 30 ml Documented By: MERARI Melatonin (Melatonin 3 Mg Tablet) 6 mg PO BEDTIME PRN PRN Reason: Insomnia Omeprazole (Omeprazole 40 Mg Capsule.) 40 mg PO DAILY@0630 [facility] Last Admin: 04/13/24 05:53 Dose: Not Given Documented By: MATTIE Non-Admin Reason: Patient Refused Ondansetron HCl (Ondansetron Hcl 4 Mg/2 Ml Vial) 4 mg IVPUSH Q8H PRN PRN Reason: Nausea and Vomiting Last Admin: 04/13/24 05:53 Dose: 4 mg Documented By: MATTIE Sodium Chloride (0.9 % Sodium Chloride Flush 3 Ml Syringe) [facility] Last Admin: 04/13/24 08:44 Dose: 3 ml Documented By: JHONNY Labs 04/10/24 05:56 04/11/24 07:12 Labs: Laboratory Results - last 24 hr 04/12/24 04/12/24 04/13/24 16:07 20:32 07:54 POC Glucose 153 H 238 H 95 04/13/24 11:47 POC Glucose 183 H Microbiology Microbiology Results: Microbiology 04/11/24 08:10 Blood Culture - Preliminary Blood - Venous No growth after 48 hours. 04/11/24 08:10 Blood Culture - Preliminary Blood - Venous No growth after 48 hours. Assessment and Plan (1) Acute hypoxic respiratory failure: Status: Acute (2) Congestive heart failure (CHF): Status: Acute Plan 53yo M with COPD on home O2 2L, DM2, HFrEF, HTN who presented with fever, dyspnea, and hypoxia and was found to be septic from bacteremia/UTI acute/chronic hypoxic resp failure due to acute/chronic HFpEF with bilateral pleural effusions - R-sided thoracentesis done 04/08 with 1100 mL fluid removed - L-sided thoracentesis done 04/09 with 800 mL fluid removed - echo 02/09 showed EF 45-50%, - appears euvolemic after diuresing with IV furosemide; changed to PO furosemide 40 mg (home dose 20 mg) neg 3500 mL this admission - on home O2 2L Serratia marcescens UTI/bacteremia - cefepime 04/07-04/10, changed to ceftriaxone 04/10. ID consulted, changed to levofloxacin 04/10- and plan 14 days from 1st negative BCx, which were drawn 04/11, blood culture negative times 48 hours DILLON/CKD3 - monitor Cr with diuresis; perhaps was cardiorenal as SCr now improved CBD dilation with calcifications - likely chronic; per GI, consider outpt MRCP, normal LFTs, no abdominal pain HTN - continue amlodipine; losartan held follow BP DM2 - stable blood sugars, basal/bolus insulin neuropathy - gabapentin dose increased to 100 mg tid on 04/12 HLD - statin History of head lice no lice noted on this admission, was treated with 3 doses of permethrin during last hospitalization on February. VTE ppx - enoxaparin dispo - to short-term rehab patient agreed In my clinical judgment, the patient requires continued inpatient hospitalization for the following reasons: bacteremia/medication adjustment. Quality Stroke Does the patient have a stroke diagnosis?: No VTE Prior VTE?: No VTE Risk Level:: Medical - moderate - high VTE Device Contraindication: Treatment Not Indicated VTE Drug Contraindication: N/A - Med Ordered
[2024-04-13 16:06] LABS: Glucose, Whole Blood 178 mg/dL (60-115)
[2024-04-13] MEDS: Enoxaparin Sodium 40 MG/0.4 ML SYRINGE SUBCUT (17:34)
[2024-04-13 20:53] LABS: Glucose, Whole Blood 220 mg/dL (60-115)
[2024-04-13] MEDS: levoFLOXacin 750 MG TABLET PO (21:36)
[2024-04-13] MEDS: Insulin Glargine,Hum.rec.anlog 100 UNIT/ML 10 ML VIAL 7 UNIT SUBCUT (21:37)
[2024-04-14 00:49] LABS: Glucose, Whole Blood 147 mg/dL (60-115)
[2024-04-14] MEDS: 0.9 % Sodium Chloride Flush 3 ML SYRINGE IVFLUSH ×4 (01:18→19:41)
[2024-04-14 03:24] VITALS: BP 153/68; PULSE 80; RESP 16; TEMP 36.3; O2SAT 100
[2024-04-14] MEDS: Omeprazole 40 MG CAPSULE.DR PO (06:26)
[2024-04-14] MEDS: Milk of Magnesia 30 ML ORAL.SUSP PO (06:31)
[2024-04-14 07:23] LABS: Glucose, Whole Blood 124 mg/dL (60-115)
[2024-04-14 07:45] VITALS: BP 157/69; PULSE 90; RESP 18; TEMP 36.4; O2SAT 98
[2024-04-14 08:41] LABS: Anion Gap 14 (12-20); Blood Urea Nitrogen 35 mg/dL (9-16); Calcium 9.1 mg/dL (8.4-10.2); Carbon Dioxide 32 mmol/L (22-29); Chloride 93 mmol/L (96-108); Creatinine Clr Calc Pharmacy 27.2; Estimated Glomerular Filt Rate 24; Glucose Random 119 mg/dL (60-115); Sodium 134 mmol/L (135-145)
[2024-04-14] MEDS: Furosemide 40 MG TABLET PO (09:08)
[2024-04-14] MEDS: Ferrous Sulfate 324 MG TABLET.DR PO (09:08)
[2024-04-14] MEDS: amLODIPine Besylate 10 MG TABLET PO (09:08)
[2024-04-14] MEDS: Aspirin Enteric Coated 81 MG TABLET.DR PO (09:08)
[2024-04-14] MEDS: Gabapentin 100 MG CAPSULE PO ×3 (09:10→19:40)
[2024-04-14] MEDS: Lidocaine 4 % Patch ADH..PATCH 1 PATCH TRANSDERMA (09:10)
[2024-04-14 11:29] VITALS: BP 147/68; PULSE 91; RESP 16; TEMP 36.3; O2SAT 100
[2024-04-14 11:52] LABS: Glucose, Whole Blood 155 mg/dL (60-115)
--- NOTE | 2024-04-14 13:39 | HO.PM.IMPN ---
Subjective Subjective Date of Service: 04/14/24 Interval History: Offers no acute complaints of shortness of breath, no lightheadedness, no dizziness, continued to have bilateral leg pain, denies fever, no chills no acute events overnight. Review of Systems All other system reviewed and are negative. Physical Exam Vital Signs: Vital Signs: Last Vital Signs Temp 97.4 F 04/14/24 11:29 Pulse 91 04/14/24 11:29 Resp 16 04/14/24 11:29 BP 147/68 H 04/14/24 11:29 Pulse Ox 100 04/14/24 11:29 O2 Del Method Nasal Cannula 04/14/24 11:29 O2 Flow Rate 1 04/14/24 11:29 Oxygen Flow Rate 2 04/07/24 10:37 BMI result Body Mass Index 27.3 Const: Other: Gen: in no acute distress HEENT: sclera anicteric, moist mucus membranes Neck: supple,no jvd Lungs: diminished bilaterally, no wheeze, no crackles Heart: regular rate and rhythm, no murmurs Abd: soft, non-tender, non-distended Ext: no edema Skin: warm/well-perfused Neuro: alert and oriented x3, no focal findings Psych: appropriate affect Objective Data Active Medications Acetaminophen (Acetaminophen 325 Mg Tablet) 650 mg PO Q6H PRN PRN Reason: Pain, Mild (Pain Scale 1-3), fever or headache Last Admin: 04/12/24 21:54 Dose: 650 mg Documented By: MTATIE Amlodipine Besylate (Amlodipine Besylate 10 Mg Tablet) 10 mg PO DAILY [facility]; Protocol Last Admin: 04/14/24 09:08 Dose: 10 mg Documented By: JHONNY Aspirin (Aspirin Enteric Coated 81 Mg Tablet.) 81 mg PO DAILY@0900 [facility] Last Admin: 04/14/24 09:08 Dose: 81 mg Documented By: JHONNY Benzonatate (Benzonatate 100 Mg Capsule) 100 mg PO TID PRN PRN Reason: Cough Calcium Carbonate (Calcium Carbonate 750 Mg Tab.Chew) 750 mg PO Q4H PRN PRN Reason: Heartburn Enoxaparin Sodium (Enoxaparin Sodium 30 Mg/0.3 Ml Syringe) 30 mg SUBCUT Q24H [facility] Ferrous Sulfate (Ferrous Sulfate 324 Mg Tablet.) 324 mg PO Q48H [facility] Last Admin: 04/14/24 09:08 Dose: 324 mg Documented By: JHONNY Gabapentin (Gabapentin 100 Mg Capsule) 100 mg PO TID [facility] Last Admin: 04/14/24 09:10 Dose: 100 mg Documented By: JHONNY Insulin Glargine (Insulin Glargine,Hum.Rec.Anlog 100 Unit/Ml 10 Ml Vial) 7 unit SUBCUT BEDTIME [facility] Last Admin: 04/13/24 21:37 Dose: 7 unit Documented By: AXEL Insulin Human Lispro (Insulin Lispro 100 Unit/Ml 3 Ml Vial) 0 unit SUBCUT QIDACHS [facility]; Protocol Last Admin: 04/14/24 12:34 Dose: Not Given Documented By: JHONNY Non-Admin Reason: Patient Refused Lactulose (Lactulose 20 Gm/30 Ml Solution) 10 gm PO BID PRN PRN Reason: constipation Last Admin: 04/12/24 21:55 Dose: 10 gm Documented By: MATTIE Comments: requested for constipation Levofloxacin (Levofloxacin 750 Mg Tablet) 750 mg PO Q48H [facility] Lidocaine (Lidocaine 4 % Patch Adh..Patch) 1 patch TRANSDERMA DAILY [facility]; Protocol Last Admin: 04/14/24 09:10 Dose: 1 patch Documented By: JHONNY Magnesium Hydroxide (Milk Of Magnesia 30 Ml Oral.Susp) 30 ml PO DAILY PRN PRN Reason: Constipation Last Admin: 04/14/24 06:31 Dose: 30 ml Documented By: MATTIE Melatonin (Melatonin 3 Mg Tablet) 6 mg PO BEDTIME PRN PRN Reason: Insomnia Omeprazole (Omeprazole 40 Mg Mandi.) 40 mg PO DAILY@0630 [facility] Last Admin: 04/14/24 06:26 Dose: 40 mg Documented By: MATTIE Ondansetron HCl (Ondansetron Hcl 4 Mg/2 Ml Vial) 4 mg IVPUSH Q8H PRN PRN Reason: Nausea and Vomiting Last Admin: 04/13/24 05:53 Dose: 4 mg Documented By: MATTIE Sodium Chloride (0.9 % Sodium Chloride Flush 3 Ml Syringe) [facility] Last Admin: 04/14/24 09:09 Dose: 3 ml Documented By: JHONNY Labs 04/10/24 05:56 04/14/24 07:32 Labs: Laboratory Results - last 24 hr 04/13/24 04/13/24 04/14/24 16:02 20:46 00:46 Hold Purple Top Anion Gap Estim Creat Clear Calc Estimated GFR POC Glucose 178 H 220 H 147 H Random Glucose Calcium 04/14/24 04/14/24 04/14/24 07:19 07:32 11:41 Hold Purple Top SEE NOTE Anion Gap 14 Estim Creat Clear Calc 27.2 Estimated GFR 24 POC Glucose 124 H 155 H Random Glucose 119 H Calcium 9.1 Microbiology Microbiology Results: Microbiology 04/11/24 08:10 Blood Culture - Preliminary Blood - Venous No growth after 48 hours. 04/11/24 08:10 Blood Culture - Preliminary Blood - Venous No growth after 48 hours. Assessment and Plan (1) Bacterial infection due to Serratia: Status: Acute (2) Congestive heart failure (CHF): Status: Acute Plan 53yo M with COPD on home O2 2L, DM2, HFrEF, HTN who presented with fever, dyspnea, and hypoxia and was found to be septic from bacteremia/UTI acute/chronic hypoxic resp failure due to acute/chronic HFpEF with bilateral pleural effusions - R-sided thoracentesis done 04/08 with 1100 mL fluid removed - L-sided thoracentesis done 04/09 with 800 mL fluid removed - echo 02/09 showed EF 45-50%, - appears euvolemic after diuresing with IV furosemide; now on PO furosemide 40 mg (home dose 20 mg) neg > 3 L neg - creatinine bumped from 1.65-2.13, will hold Lasix follow BMP - on home O2 2L Serratia marcescens UTI/bacteremia - cefepime 04/07-04/10, changed to ceftriaxone 04/10. ID consulted, changed to levofloxacin 04/10- and plan 14 days from 1st negative BCx, which were drawn 04/11, blood culture negative times 48 hours Will renally adjust dose of Levaquin. DILLON/CKD3 - creatinine bumped today likely due to over-diuresis , no hypotension, will hold Lasix and continue to hold losartan,give ivf, follow BMP CBD dilation with calcifications - likely chronic; per GI, consider outpt MRCP, normal LFTs, no abdominal pain HTN - continue amlodipine; losartan held for worsening renal function DM2 - stable blood sugars, basal/bolus insulin neuropathy - gabapentin dose increased to 100 mg tid on 04/12 HLD - statin History of head lice no lice noted on this admission, was treated with 3 doses of permethrin during last hospitalization on February. VTE ppx - enoxaparin dispo - to short-term rehab patient agreed In my clinical judgment, the patient requires continued inpatient hospitalization for the following reasons: bacteremia/medication adjustment. Quality Stroke Does the patient have a stroke diagnosis?: No VTE Prior VTE?: No VTE Risk Level:: Medical - moderate - high VTE Device Contraindication: Treatment Not Indicated VTE Drug Contraindication: N/A - Med Ordered
--- NOTE | 2024-04-14 15:13 | MHC.CM.PN ---
Approval given from [facility]. Pt is now not medically cleared for discharge due to monitoring renal function/labs, [facility] aware and plan will be for pt to discharge to [facility] tomorrow 04/15.
[2024-04-14 15:26] VITALS: BP 148/67; PULSE 96; RESP 16; TEMP 36.3; O2SAT 100
[2024-04-14] MEDS: 0.9 % Sodium Chloride 250 ML 80 ML IVCONT ×3 (15:37→23:01)
[2024-04-14 16:40] LABS: Glucose, Whole Blood 202 mg/dL (60-115)
[2024-04-14] MEDS: Insulin Lispro 100 UNIT/ML 3 ML VIAL SUBCUT ×2 (16:54→20:45)
[2024-04-14] MEDS: Enoxaparin Sodium 30 MG/0.3 ML SYRINGE SUBCUT (16:55)
[2024-04-14 19:17] VITALS: BP 123/58; PULSE 88; RESP 16; TEMP 36; O2SAT 100
[2024-04-14 20:38] LABS: Glucose, Whole Blood 222 mg/dL (60-115)
[2024-04-14] MEDS: Insulin Glargine,Hum.rec.anlog 100 UNIT/ML 10 ML VIAL 7 UNIT SUBCUT (20:45)
[2024-04-14] MEDS: levoFLOXacin 750 MG TABLET PO (21:58)
[2024-04-15] VITALS (7 sets, daily range): BP systolic 121–150; BP diastolic 58–71; PULSE 85–96; RESP 12–20; TEMP 36.1–36.7; O2SAT 98–100; BMI 32.1
[2024-04-15] MEDS: Lactulose 20 GM/30 ML SOLUTION 10 GM PO (01:35)
[2024-04-15] MEDS: ondansetron HCL 4 MG/2 ML VIAL IVPUSH (05:14)
[2024-04-15] MEDS: Omeprazole 40 MG CAPSULE.DR PO (05:14)
--- NOTE | 2024-04-15 05:23 | PC.NURSE ---
CARE ASSUMED 7PM..ALERT..ORIENTED X3 VIA SYSTEM TRAINER...NS 0.9% 750ml TOTAL INFUSED PER MAR PER SHIFT REPORT FOR ELEVATED CREATININE. FOR AM CHEMISTRY FOLLOW-UP...C/O URGE FOR BM...NO BM DOCUMENTED SINCE ADMIT...LACTULOSE GIVEN PER PATIENT REQUEST..NO BM OVERNIGHT...REQUESTED PRN MOM BUT C/O NAUSEA PRIOR TO RECEIPT..PRN ZOFRAN GIVEN,,,FOR MOM WHEN NAUSEA RESOLVES..PURWIK EXTERNAL CATHETER CATHETER COLLECTING YELLOW URINE...NSR..NO ECTOPY
[2024-04-15] MEDS: Milk of Magnesia 30 ML ORAL.SUSP PO (05:50)
[2024-04-15 06:35] LABS: Anion Gap 13 (12-20); Blood Urea Nitrogen 43 mg/dL (9-16); Calcium 8.7 mg/dL (8.4-10.2); Carbon Dioxide 28 mmol/L (22-29); Chloride 96 mmol/L (96-108); Creatinine Clr Calc Pharmacy 24.6; Estimated Glomerular Filt Rate 21; Glucose Random 174 mg/dL (60-115); Potassium 5.6 mmol/L (3.3-5.1); Sodium 131 mmol/L (135-145)
[2024-04-15 07:26] LABS: Glucose, Whole Blood 128 mg/dL (60-115)
[2024-04-15] MEDS: Lidocaine 4 % Patch ADH..PATCH 1 PATCH TRANSDERMA (08:35)
[2024-04-15] MEDS: Aspirin Enteric Coated 81 MG TABLET.DR PO (08:35)
[2024-04-15] MEDS: amLODIPine Besylate 10 MG TABLET PO (08:35)
[2024-04-15] MEDS: Gabapentin 100 MG CAPSULE PO ×3 (08:36→21:56)
[2024-04-15] MEDS: 0.9 % Sodium Chloride Flush 3 ML SYRINGE IVFLUSH (08:36)
--- NOTE | 2024-04-15 10:52 | MHC.CM.PN ---
Per [facility], Patient is not yet medically cleared for dc; CM has informed [facility] and will continue to follow.
[2024-04-15 11:02] LABS: Glucose, Whole Blood 180 mg/dL (60-115)
[2024-04-15] MEDS: Insulin Lispro 100 UNIT/ML 3 ML VIAL SUBCUT ×3 (11:16→22:00)
[2024-04-15] MEDS: Calcium Carbonate 750 MG TAB.CHEW PO (11:16)
--- NOTE | 2024-04-15 15:06 | HO.PM.IMPN ---
Subjective Subjective Date of Service: 04/15/24 Interval History: Complaining of abdominal discomfort and constipation, no bowel movement in last several days, tolerating diet no nausea, no vomiting, denies headache no lightheadedness, no dizziness noted to have worsening creatinine. Review of Systems All other system reviewed and are negative. Physical Exam Vital Signs: Vital Signs: Last Vital Signs Temp 97.0 F 04/15/24 11:47 Pulse 85 04/15/24 11:47 Resp 12 04/15/24 11:47 BP 150/71 H 04/15/24 11:47 Pulse Ox 100 04/15/24 11:47 O2 Del Method Nasal Cannula 04/15/24 11:47 O2 Flow Rate 2 04/15/24 11:47 Oxygen Flow Rate 2 04/07/24 10:37 BMI result Body Mass Index 27.3 Const: Other: Gen: in no acute distress HEENT: sclera anicteric Neck: supple,no jvd Lungs: diminished bilaterally, no wheeze, no crackles Heart: regular rate and rhythm, no murmurs Abd: soft, mild distention non-tender, bowel sounds audible Ext: no edema Skin: warm/well-perfused Neuro: alert and oriented x3, no focal findings Psych: appropriate affect Objective Data Active Medications Acetaminophen (Acetaminophen 325 Mg Tablet) 650 mg PO Q6H PRN PRN Reason: Pain, Mild (Pain Scale 1-3), fever or headache Last Admin: 04/12/24 21:54 Dose: 650 mg Documented By: MATTIE Amlodipine Besylate (Amlodipine Besylate 10 Mg Tablet) 10 mg PO DAILY [facility]; Protocol Last Admin: 04/15/24 08:35 Dose: 10 mg Documented By: RAFAEL Aspirin (Aspirin Enteric Coated 81 Mg Tablet.) 81 mg PO DAILY@0900 [facility] Last Admin: 04/15/24 08:35 Dose: 81 mg Documented By: RAFAEL Benzonatate (Benzonatate 100 Mg Capsule) 100 mg PO TID PRN PRN Reason: Cough Calcium Carbonate (Calcium Carbonate 750 Mg Tab.Chew) 750 mg PO Q4H PRN PRN Reason: Heartburn Last Admin: 04/15/24 11:16 Dose: 750 mg Documented By: RAFAEL Enoxaparin Sodium (Enoxaparin Sodium 30 Mg/0.3 Ml Syringe) 30 mg SUBCUT Q24H [facility] Last Admin: 04/14/24 16:55 Dose: 30 mg Documented By: JHONNY Ferrous Sulfate (Ferrous Sulfate 324 Mg Tablet.) 324 mg PO Q48H [facility] Last Admin: 04/14/24 09:08 Dose: 324 mg Documented By: JHONNY Gabapentin (Gabapentin 100 Mg Capsule) 100 mg PO TID [facility] Last Admin: 04/15/24 08:36 Dose: 100 mg Documented By: RAFAEL Insulin Glargine (Insulin Glargine,Hum.Rec.Anlog 100 Unit/Ml 10 Ml Vial) 7 unit SUBCUT BEDTIME [facility] Last Admin: 04/14/24 20:45 Dose: 7 unit Documented By: NIKKI Insulin Human Lispro (Insulin Lispro 100 Unit/Ml 3 Ml Vial) 0 unit SUBCUT QIDACHS [facility]; Protocol Last Admin: 04/15/24 11:16 Dose: 2 unit Documented By: RAFAEL Lactulose (Lactulose 20 Gm/30 Ml Solution) 10 gm PO BID PRN PRN Reason: constipation Last Admin: 04/15/24 01:35 Dose: 10 gm Documented By: NIKKI Levofloxacin (Levofloxacin 750 Mg Tablet) 750 mg PO Q48H [facility] Last Admin: 04/14/24 21:58 Dose: 750 mg Documented By: NIKKI Lidocaine (Lidocaine 4 % Patch Adh..Patch) 1 patch TRANSDERMA DAILY [facility]; Protocol Last Admin: 04/15/24 08:35 Dose: 1 patch Documented By: RAFAEL Magnesium Hydroxide (Milk Of Magnesia 30 Ml Oral.Susp) 30 ml PO DAILY PRN PRN Reason: Constipation Last Admin: 04/15/24 05:50 Dose: 30 ml Documented By: NIKKI Melatonin (Melatonin 3 Mg Tablet) 6 mg PO BEDTIME PRN PRN Reason: Insomnia Omeprazole (Omeprazole 40 Mg Capsule.) 40 mg PO DAILY@0630 [facility] Last Admin: 04/15/24 05:14 Dose: 40 mg Documented By: NIKKI Ondansetron HCl (Ondansetron Hcl 4 Mg/2 Ml Vial) 4 mg IVPUSH Q8H PRN PRN Reason: Nausea and Vomiting Last Admin: 04/15/24 05:14 Dose: 4 mg Documented By: NIKKI Sodium Chloride (0.9 % Sodium Chloride Flush 3 Ml Syringe) 3 ml IVFLUSH QSHIFT [facility] Last Admin: 04/15/24 08:36 Dose: 3 ml Documented By: RAFAEL Labs 04/10/24 05:56 04/15/24 06:05 Labs: Laboratory Results - last 24 hr 04/14/24 04/14/24 04/15/24 16:30 20:30 06:05 Anion Gap 13 Estim Creat Clear Calc 24.6 Estimated GFR 21 POC Glucose 202 H 222 H Random Glucose 174 H Calcium 8.7 04/15/24 04/15/24 07:19 10:52 Anion Gap Estim Creat Clear Calc Estimated GFR POC Glucose 128 H 180 H Random Glucose Calcium Assessment and Plan (1) Bacterial infection due to Serratia: Status: Acute Plan 53yo M with COPD on home O2 2L, DM2, HFrEF, HTN who presented with fever, dyspnea, and hypoxia and was found to be septic from bacteremia/UTI acute/chronic hypoxic resp failure due to acute/chronic HFpEF with bilateral pleural effusions - R-sided thoracentesis done 04/08 with 1100 mL fluid removed - L-sided thoracentesis done 04/09 with 800 mL fluid removed - echo 02/09 showed EF 45-50%, - appears euvolemic after diuresing with IV furosemide; Lasix on hold due to rising creatinine - on home O2 2L, follow clinical course and BMP Serratia marcescens UTI/bacteremia - cefepime 04/07-04/10, changed to ceftriaxone 04/10. ID consulted, changed to levofloxacin 04/10- and plan 14 days from 1st negative BCx, which were drawn 04/11, blood culture negative times 48 hours On renally dosed Levaquin. DILLON/CKD3 - creatinine worsened likely due to over-diuresis , no hypotension, hold Lasix and continue to hold losartan, follow BMP, push by mouth fluids CBD dilation with calcifications - likely chronic; per GI, consider outpt MRCP, normal LFTs, no abdominal pain HTN - continue amlodipine; losartan held for worsening renal function DM2 - stable blood sugars, basal/bolus insulin neuropathy - good pain control gabapentin dose increased to 100 mg tid on 04/12 HLD - statin History of head lice no lice noted on this admission, was treated with 3 doses of permethrin during last hospitalization on February. Constipation will add stool softeners VTE ppx - enoxaparin dispo - to short-term rehab patient agreed In my clinical judgment, the patient requires continued inpatient hospitalization for the following reasons: bacteremia/dillon/medication adjustment. Quality Stroke Does the patient have a stroke diagnosis?: No VTE Prior VTE?: No VTE Risk Level:: Medical - moderate - high VTE Device Contraindication: Treatment Not Indicated VTE Drug Contraindication: N/A - Med Ordered
[2024-04-15] MEDS: Lactulose 20 GM/30 ML SOLUTION PO (15:11)
[2024-04-15] MEDS: Sodium Zirconium Cyclosilicate 5 GM POWD.PACK PO (15:50)
[2024-04-15 16:05] LABS: Glucose, Whole Blood 174 mg/dL (60-115)
[2024-04-15] MEDS: Enoxaparin Sodium 30 MG/0.3 ML SYRINGE SUBCUT (17:25)
[2024-04-15 19:38] LABS: Glucose, Whole Blood 165 mg/dL (60-115)
[2024-04-15] MEDS: Insulin Glargine,Hum.rec.anlog 100 UNIT/ML 10 ML VIAL 7 UNIT SUBCUT (22:07)
[2024-04-16] MEDS: 0.9 % Sodium Chloride Flush 3 ML SYRINGE IVFLUSH ×4 (00:25→23:37)
[2024-04-16 03:12] VITALS: BP 138/61; PULSE 85; RESP 16; TEMP 36.6; O2SAT 100
[2024-04-16] MEDS: Omeprazole 40 MG CAPSULE.DR PO (05:27)
[2024-04-16] MEDS: Milk of Magnesia 30 ML ORAL.SUSP PO (05:30)
[2024-04-16 07:43] VITALS: BP 148/75; PULSE 82; RESP 18; TEMP 36.1; O2SAT 96
[2024-04-16 07:44] LABS: Glucose, Whole Blood 117 mg/dL (60-115)
[2024-04-16 08:00] LABS: Anion Gap 15 (12-20); Blood Urea Nitrogen 50 mg/dL (9-16); Calcium 8.9 mg/dL (8.4-10.2); Carbon Dioxide 29 mmol/L (22-29); Chloride 94 mmol/L (96-108); Creatinine Clr Calc Pharmacy 26.4; Estimated Glomerular Filt Rate 21; Glucose Random 113 mg/dL (60-115); Potassium 6.1 mmol/L (3.3-5.1); Sodium 132 mmol/L (135-145)
[2024-04-16] MEDS: Sodium Zirconium Cyclosilicate 10 GM POWD.PACK PO (09:39)
[2024-04-16] MEDS: Lidocaine 4 % Patch ADH..PATCH 1 PATCH TRANSDERMA (09:41)
[2024-04-16] MEDS: amLODIPine Besylate 10 MG TABLET PO (09:41)
[2024-04-16] MEDS: Ferrous Sulfate 324 MG TABLET.DR PO (09:41)
[2024-04-16] MEDS: Aspirin Enteric Coated 81 MG TABLET.DR PO (09:41)
[2024-04-16] MEDS: Gabapentin 100 MG CAPSULE PO ×3 (09:41→23:36)
[2024-04-16 11:18] VITALS: BP 145/69; PULSE 89; RESP 16; TEMP 37; O2SAT 96
[2024-04-16 11:28] LABS: Glucose, Whole Blood 165 mg/dL (60-115)
[2024-04-16] MEDS: Insulin Lispro 100 UNIT/ML 3 ML VIAL SUBCUT ×3 (11:47→23:36)
[2024-04-16 13:15] VITALS: BMI 32.1
--- NOTE | 2024-04-16 13:21 | MHC.CLN ---
RE; CONSULT PT WITH INCREASED NUTRITION RISK R/T PRESSURE INJURY DIET RX: 1800DM 2GM NA-APPROPRIATE RECOMMEND ADDING ENSURE MAX BID TO PROMOTE WOUND HEALING SUPP TO PROVIDE 300KCALS, 60G PROTEIN MONITOR PO INTAKE AND ENCOURAGE SUPPLEMENTS SEE ALSO FULL CLINICAL NUTRITION ASSESSMENT
--- NOTE | 2024-04-16 14:45 | P.PNIM_ITS ---
Subjective Subjective Date of Service: 04/16/24 Interval History: Complaining of foot pain, offers no other complaints of headache, no lightheadedness, no dizziness, no shortness of breath tolerating 100% diet, tolerating diet with no nausea, no vomiting. Review of Systems All other system reviewed and negative. Physical Exam 2 Vital Signs: Vital Signs: Last Vital Signs Temp 98.6 F 04/16/24 11:18 Pulse 89 04/16/24 11:18 Resp 16 04/16/24 11:18 BP 145/69 H 04/16/24 11:18 Pulse Ox 96 04/16/24 11:18 O2 Del Method Nasal Cannula 04/16/24 11:18 O2 Flow Rate 2 04/16/24 11:18 Oxygen Flow Rate 2 04/07/24 10:37 BMI result Body Mass Index 32.1 Const: Other: Gen: in no acute distress HEENT: sclera anicteric Neck: supple,no jvd Lungs: diminished bilaterally, no wheeze, no crackles Heart: regular rate and rhythm, no murmurs Abd: soft, mild distention non-tender, bowel sounds audible Ext: no edema Skin: warm/well-perfused Neuro: alert and oriented x3, no focal findings Psych: appropriate affect Objective Data Active Medications Acetaminophen (Acetaminophen 325 Mg Tablet) 650 mg PO Q6H PRN PRN Reason: Pain, Mild (Pain Scale 1-3), fever or headache Last Admin: 04/12/24 21:54 Dose: 650 mg Documented By: MATTIE Amlodipine Besylate (Amlodipine Besylate 10 Mg Tablet) 10 mg PO DAILY [facility]; Protocol Last Admin: 04/16/24 09:41 Dose: 10 mg Documented By: LUDY Aspirin (Aspirin Enteric Coated 81 Mg Tablet.) 81 mg PO DAILY@0900 [facility] Last Admin: 04/16/24 09:41 Dose: 81 mg Documented By: LUDY Benzonatate (Benzonatate 100 Mg Capsule) 100 mg PO TID PRN PRN Reason: Cough Calcium Carbonate (Calcium Carbonate 750 Mg Tab.Chew) 750 mg PO Q4H PRN PRN Reason: Heartburn Last Admin: 04/15/24 11:16 Dose: 750 mg Documented By: RAFAEL Docusate Sodium (Docusate Sodium 100 Mg Capsule) 200 mg PO BEDTIME PRN PRN Reason: Constipation Enoxaparin Sodium (Enoxaparin Sodium 30 Mg/0.3 Ml Syringe) 30 mg SUBCUT Q24H [facility] Last Admin: 04/15/24 17:25 Dose: 30 mg Documented By: RAFAEL Ferrous Sulfate (Ferrous Sulfate 324 Mg Tablet.) 324 mg PO Q48H [facility] Last Admin: 04/16/24 09:41 Dose: 324 mg Documented By: LUDY Gabapentin (Gabapentin 100 Mg Capsule) 100 mg PO TID [facility] Last Admin: 04/16/24 14:35 Dose: 100 mg Documented By: LUDY Insulin Glargine (Insulin Glargine,Hum.Rec.Anlog 100 Unit/Ml 10 Ml Vial) 7 unit SUBCUT BEDTIME [facility] Last Admin: 04/15/24 22:07 Dose: 7 unit Documented By: LUDY Insulin Human Lispro (Insulin Lispro 100 Unit/Ml 3 Ml Vial) 0 unit SUBCUT QIDACHS [facility]; Protocol Last Admin: 04/16/24 11:47 Dose: 2 unit Documented By: LUDY Lactulose (Lactulose 20 Gm/30 Ml Solution) 10 gm PO BID PRN PRN Reason: constipation Last Admin: 04/15/24 01:35 Dose: 10 gm Documented By: NIKKI Levofloxacin (Levofloxacin 750 Mg Tablet) 750 mg PO Q48H [facility] Last Admin: 04/14/24 21:58 Dose: 750 mg Documented By: NIKKI Lidocaine (Lidocaine 4 % Patch Adh..Patch) 1 patch TRANSDERMA DAILY [facility]; Protocol Last Admin: 04/16/24 09:41 Dose: 1 patch Documented By: LUDY Magnesium Hydroxide (Milk Of Magnesia 30 Ml Oral.Susp) 30 ml PO DAILY PRN PRN Reason: Constipation Last Admin: 04/16/24 05:30 Dose: 30 ml Documented By: ANTMICHAEL Melatonin (Melatonin 3 Mg Tablet) 6 mg PO BEDTIME PRN PRN Reason: Insomnia Omeprazole (Omeprazole 40 Mg Capsule.) 40 mg PO DAILY@0630 [facility] Last Admin: 04/16/24 05:27 Dose: 40 mg Documented By: ROBYN Ondansetron HCl (Ondansetron Hcl 4 Mg/2 Ml Vial) 4 mg IVPUSH Q8H PRN PRN Reason: Nausea and Vomiting Last Admin: 04/15/24 05:14 Dose: 4 mg Documented By: NIKKI Sodium Chloride (0.9 % Sodium Chloride Flush 3 Ml Syringe) 3 ml IVFLUSH QSHIFT [facility] Last Admin: 04/16/24 14:40 Dose: 3 ml Documented By: FARZANEHCIAV Labs 04/10/24 05:56 04/16/24 06:53 Labs: Laboratory Results - last 24 hr 04/15/24 04/15/24 04/16/24 15:43 19:21 06:53 Hold Purple Top Anion Gap 15 Estim Creat Clear Calc 26.4 Estimated GFR 21 POC Glucose 174 H 165 H Random Glucose 113 Calcium 8.9 04/16/24 04/16/24 07:38 11:18 Hold Purple Top SEE NOTE Anion Gap Estim Creat Clear Calc Estimated GFR POC Glucose 117 H 165 H Random Glucose Calcium Microbiology Microbiology Results: Microbiology 04/11/24 08:10 Blood Culture - Final Blood - Venous No growth after 5 days. 04/11/24 08:10 Blood Culture - Final Blood - Venous No growth after 5 days. Assessment and Plan (1) Bacterial infection due to Serratia: Status: Acute Plan 53yo M with COPD on home O2 2L, DM2, HFrEF, HTN who presented with fever, dyspnea, and hypoxia and was found to be septic from bacteremia/UTI acute/chronic hypoxic resp failure due to acute/chronic HFpEF with bilateral pleural effusions - denies shortness of breath, no chest pain, no PND >3.5L neg - R-sided thoracentesis done 04/08 with 1100 mL fluid removed - L-sided thoracentesis done 04/09 with 800 mL fluid removed - echo 02/09 showed EF 45-50%, - appears euvolemic after diuresing with IV furosemide; Lasix on hold due to rising creatinine - on home O2 2L, follow clinical course and BMP Serratia marcescens UTI/bacteremia - cefepime 04/07-04/10, changed to ceftriaxone 04/10. ID consulted, changed to levofloxacin 04/10- and plan 14 days from 1st negative BCx, which were drawn 04/11, blood culture negative times 48 hours On renally dosed Levaquin end date 04/25. DILLON/CKD3 - creatinine worsened likely due to over-diuresis , no hypotension, recurrent episodes of DILLON with over-diuresis, hold Lasix and continue to hold losartan, follow BMP, s/p ivf ,will push by mouth fluids Nephrology consult CBD dilation with calcifications- likely chronic; per GI, consider outpt MRCP, normal LFTs, no abdominal pain. HTN - continue amlodipine; losartan held for worsening renal function, few high blood pressure readings were consult Nephrology for medication management DM2 - stable blood sugars, basal/bolus insulin neuropathy- good pain control gabapentin dose increased to 100 mg tid on 04/12 HLD - statin History of head lice no lice noted on this admission, was treated with 3 doses of permethrin during last hospitalization on February. Constipation resolved, continue stool softeners VTE ppx - enoxaparin dispo - to short-term rehab patient agreed In my clinical judgment, the patient requires continued inpatient hospitalization for the following reasons: bacteremia/dillon/medication adjustment. Quality Stroke Does the patient have a stroke diagnosis?: No VTE Prior VTE?: No VTE Risk Level:: Medical - moderate - high VTE Device Contraindication: Treatment Not Indicated VTE Drug Contraindication: N/A - Med Ordered
[2024-04-16 15:08] VITALS: BP 159/70; PULSE 88; RESP 15; TEMP 36; O2SAT 99
--- NOTE | 2024-04-16 15:34 | P.CONNP_ITS ---
History of Present Illness Reason for Consult Consult date: 04/16/24 Chief Complaint Chief complaint: Hypoxia History of Present Illness Narrative: Pt is a 53 y/o primarily Urdu-speaking female with a PMH of HFpEF, DMII (with lower extremity neuropathy), COPD (on home O2 2L NC), postural hypotension. She has been seen by outpatient nephrology Dr Mills earlier this year for orthostatic hypotension. presented 04/07 with dyspnea, fever, hypoxia. found to have b/l pleural effusions, right thoracentesis drained 1100mL fluid 04/08, left thoracentesis on 04/09 drained 800mL fluid. also found to have bacteremia and UTI. Nephrology consulted for DILLON. receiving lasix 40mg PO daily for treatment of acute on chronic HF with effusions due to rise in creatinine on 04/14, lasix was discontinued. creatinine 1.71 on admission (04/07/24), 1.65 on 04/11, next creatinine 04/14 was 2.13, 04/15 was 2.36, 04/16 2.38 creatinine prior to admission from last hospitalization in February on discharge was 1.72 on 02/13/24 (DILLON from vanco toxicity) but stable (prior to hospitalization was 1.15). Pt did not keep her hospital follow up appt with nephrology. CT of abd/pelvis 04/07 showed no hydronephrosis/calculi. she reports she is urinating comfortably, denies burning, difficulty emptying bladder, blood in urine, flank pain. she denies dyspnea at this time and reports she is breathing comfortably (on nasal cannula), she is sitting in recliner. She denies abdominal pain, chest pain. States she continues to have chronic lower extremity pain (neuropathy). Review of Systems Constitutional: Denies fatigue, Denies headache(s) and Denies malaise Denies dizziness and Denies headache(s) Cardiovascular: Denies chest pain, Denies leg edema, Denies lightheadedness, Denies dyspnea and Reports dyspnea on exertion Respiratory: Denies cough, Denies dyspnea and Reports dyspnea on exertion Gastrointestinal: Denies abdominal pain, Denies constipation, Denies diarrhea, Denies nausea and Denies vomiting Genitourinary: Denies hematuria, Denies difficulty voiding, Denies dysuria, Denies flank pain and Denies urinary hesitancy Musculoskeletal: Denies back pain and Denies arthralgias Skin/Breast: Denies rash Denies dizziness and Denies headache(s) Endocrine: Denies fatigue [facility] Past Medical History Medical History Urinary tract infection Hypertension Symptomatic anemia Brain lesion Iron deficiency anemia HLD (hyperlipidemia) Anemia Depression Type 2 diabetes mellitus Family History Family History Other Hypertension Social History Social History Household Members: Children Household Members Other:: Daughter Housing: Apartment Do you presently have visiting nurse or other home services: Yes Unable to assess alcohol history related to: Unable to respond Alcohol intake: former Patient Tobacco Use Status: Never used Tobacco e-Cigarette/Vaping Use: Never Used Second Hand Smoke Exposure: No Advance Directives Date on File: 06/19/21 service: No Current occupational status: unemployed Meds Allergies Allergy/AdvReac Type Severity Reaction Status Date / Time shrimp Allergy Swelling Verified 04/07/24 10:49 Active Medications: Current Medications Acetaminophen (Acetaminophen 325 Mg Tablet) 650 mg PO Q6H PRN PRN Reason: Pain, Mild (Pain Scale 1-3), fever or headache Last Admin: 04/12/24 21:54 Dose: 650 mg Amlodipine Besylate (Amlodipine Besylate 10 Mg Tablet) 10 mg PO DAILY [facility]; Protocol Last Admin: 04/16/24 09:41 Dose: 10 mg Aspirin (Aspirin Enteric Coated 81 Mg Tablet.) 81 mg PO DAILY@0900 [facility] Last Admin: 04/16/24 09:41 Dose: 81 mg Benzonatate (Benzonatate 100 Mg Capsule) 100 mg PO TID PRN PRN Reason: Cough Calcium Carbonate (Calcium Carbonate 750 Mg Tab.Chew) 750 mg PO Q4H PRN PRN Reason: Heartburn Last Admin: 04/15/24 11:16 Dose: 750 mg Docusate Sodium (Docusate Sodium 100 Mg Capsule) 200 mg PO BEDTIME PRN PRN Reason: Constipation Enoxaparin Sodium (Enoxaparin Sodium 30 Mg/0.3 Ml Syringe) 30 mg SUBCUT Q24H [facility] Last Admin: 04/15/24 17:25 Dose: 30 mg Ferrous Sulfate (Ferrous Sulfate 324 Mg Tablet.) 324 mg PO Q48H [facility] Last Admin: 04/16/24 09:41 Dose: 324 mg Gabapentin (Gabapentin 100 Mg Capsule) 100 mg PO TID [facility] Last Admin: 04/16/24 14:35 Dose: 100 mg Insulin Glargine (Insulin Glargine,Hum.Rec.Anlog 100 Unit/Ml 10 Ml Vial) 7 unit SUBCUT BEDTIME [facility] Last Admin: 04/15/24 22:07 Dose: 7 unit Insulin Human Lispro (Insulin Lispro 100 Unit/Ml 3 Ml Vial) 0 unit SUBCUT QIDACHS [facility]; Protocol Last Admin: 04/16/24 11:47 Dose: 2 unit Lactulose (Lactulose 20 Gm/30 Ml Solution) 10 gm PO BID PRN PRN Reason: constipation Last Admin: 04/15/24 01:35 Dose: 10 gm Levofloxacin (Levofloxacin 750 Mg Tablet) 750 mg PO Q48H [facility] Last Admin: 04/14/24 21:58 Dose: 750 mg Lidocaine (Lidocaine 4 % Patch Adh..Patch) 1 patch TRANSDERMA DAILY [facility]; Protocol Last Admin: 04/16/24 09:41 Dose: 1 patch Magnesium Hydroxide (Milk Of Magnesia 30 Ml Oral.Susp) 30 ml PO DAILY PRN PRN Reason: Constipation Last Admin: 04/16/24 05:30 Dose: 30 ml Melatonin (Melatonin 3 Mg Tablet) 6 mg PO BEDTIME PRN PRN Reason: Insomnia Omeprazole (Omeprazole 40 Mg Capsule.) 40 mg PO DAILY@0630 [facility] Last Admin: 04/16/24 05:27 Dose: 40 mg Ondansetron HCl (Ondansetron Hcl 4 Mg/2 Ml Vial) 4 mg IVPUSH Q8H PRN PRN Reason: Nausea and Vomiting Last Admin: 04/15/24 05:14 Dose: 4 mg Sodium Chloride (0.9 % Sodium Chloride Flush 3 Ml Syringe) 3 ml IVFLUSH QSHIFT [facility] Last Admin: 04/16/24 14:40 Dose: 3 ml Home Medications ?Medication ?Instructions ?Recorded ?Confirmed ?Last Taken ?Type aspirin 81 mg tablet,delayed 1 tab PO DAILY@0900 07/21/22 04/07/24 02/07/24 History release ferrous sulfate 324 mg (65 mg 324 mg PO Q OTHER DAY 04/07/24 04/07/24 Unknown History iron) tablet,delayed release losartan 25 mg tablet 25 mg PO DAILY 04/07/24 04/07/24 Unknown History omeprazole 40 mg capsule,delayed 40 mg PO QAM 04/07/24 04/07/24 Unknown History release Physical Exam Vital Signs: Last Vital Signs Temp 96.8 F 04/16/24 15:08 Pulse 88 04/16/24 15:08 Resp 15 04/16/24 15:08 BP 159/70 H 04/16/24 15:08 Pulse Ox 99 04/16/24 15:08 O2 Del Method Nasal Cannula 04/16/24 15:08 O2 Flow Rate 2 04/16/24 15:08 Oxygen Flow Rate 2 04/07/24 10:37 BMI result Body Mass Index 32.1 Const General: no acute distress, alert and awake Resp Effort & Inspection: normal respiratory effort and able to speak in complete sentences Auscultation: diminished lung sounds (bilateral lower lobes diminished. ) bilateral Cardio Rate: regular rate Rhythm: regular rhythm Heart sounds: S1 normal heart sound present and S2 normal heart sound present GI Palpation (GI): Soft to palpation and nontender General: Yes no CVA tenderness Back/Spine/Pelvis Back: no CVA tenderness Skin Lesions: no lesions Rashes: no rashes Extrem General: No edema Results Lab Results 04/10/24 05:56 04/16/24 06:53 Lab results: Chemistry 04/14/24 04/15/24 04/16/24 07:32 06:05 06:53 Sodium 134 L 131 L 132 L Potassium 5.0 5.6 H 6.1 H* Carbon Dioxide 32 H 28 29 BUN 35 H 43 H 50 H Creatinine 2.13 H 2.36 H 2.38 H Calcium 9.1 8.7 8.9 Assessment and Plan (1) Acute kidney injury: Status: Resolved (2) UTI (urinary tract infection): Qualifiers: Urinary tract infection type: site unspecified Hematuria presence: with hematuria Qualified Code(s): N39.0 - Urinary tract infection, site not specified; R31.9 - Hematuria, unspecified Status: Acute (3) CHF (congestive heart failure): Qualifiers: Heart failure type: diastolic Heart failure chronicity: acute on chronic Qualified Code(s): I50.33 - Acute on chronic diastolic (congestive) heart failure Status: Acute Plan DILLON most likely ATN secondary to hypovolemia from diuresis. did have renal injury in February from vanco toxicity without full recovery, may have more permanent reduced renal function at baseline unlikely AG or IN given lack of persistent proteinuria/hematuria will check urine eosinophils, will re-check UA and also serum complements recommend lokelma PRN for hyperkalemia recommend continue to hold lasix, avoid nephrotoxins recommend daily renal function and electrolyte checks recommend regular blood pressure checks, close I&O monitoring continue supportive care Discussed with Dr Whittington Procedures Date of Service Date of Service: 04/16/24
[2024-04-16 16:41] LABS: Glucose, Whole Blood 249 mg/dL (60-115)
[2024-04-16] MEDS: Enoxaparin Sodium 30 MG/0.3 ML SYRINGE SUBCUT (17:18)
[2024-04-16 19:22] VITALS: BP 133/62; PULSE 92; RESP 17; TEMP 36.8; O2SAT 99
[2024-04-16 20:49] LABS: Glucose, Whole Blood 213 mg/dL (60-115)
[2024-04-16 23:24] VITALS: BP 129/60; PULSE 85; RESP 18; TEMP 36.7; O2SAT 100
[2024-04-16] MEDS: levoFLOXacin 750 MG TABLET PO (23:36)
[2024-04-16] MEDS: Insulin Glargine,Hum.rec.anlog 100 UNIT/ML 10 ML VIAL 7 UNIT SUBCUT (23:36)
[2024-04-17 03:34] VITALS: BP 121/59; PULSE 85; RESP 18; TEMP 36.4; O2SAT 96
[2024-04-17] MEDS: Omeprazole 40 MG CAPSULE.DR PO (05:20)
[2024-04-17 07:30] LABS: Anion Gap 13 (12-20); Blood Urea Nitrogen 65 mg/dL (9-16); Calcium 8.2 mg/dL (8.4-10.2); Carbon Dioxide 28 mmol/L (22-29); Chloride 94 mmol/L (96-108); Creatinine Clr Calc Pharmacy 26.3; Estimated Glomerular Filt Rate 21; Glucose Random 197 mg/dL (60-115); Sodium 129 mmol/L (135-145)
[2024-04-17 07:56] LABS: Glucose, Whole Blood 166 mg/dL (60-115)
[2024-04-17 08:00] VITALS: BP 141/60; PULSE 95; RESP 20; TEMP 36.4; O2SAT 97
[2024-04-17] MEDS: Gabapentin 100 MG CAPSULE PO ×3 (08:10→21:31)
[2024-04-17] MEDS: Aspirin Enteric Coated 81 MG TABLET.DR PO (08:10)
[2024-04-17] MEDS: ondansetron HCL 4 MG/2 ML VIAL IVPUSH (08:10)
[2024-04-17] MEDS: Sodium Zirconium Cyclosilicate 10 GM POWD.PACK PO (08:11)
[2024-04-17] MEDS: Lidocaine 4 % Patch ADH..PATCH 1 PATCH TRANSDERMA (08:11)
[2024-04-17] MEDS: amLODIPine Besylate 10 MG TABLET PO (08:11)
[2024-04-17] MEDS: Insulin Lispro 100 UNIT/ML 3 ML VIAL SUBCUT ×3 (08:11→21:33)
[2024-04-17] MEDS: 0.9 % Sodium Chloride Flush 3 ML SYRINGE IVFLUSH ×2 (08:44→15:44)
--- NOTE | 2024-04-17 09:10 | P.PNNP_ITS ---
Subjective Subjective Date of Service: 04/17/24 Interval history: Pt is a 53 y/o primarily Kiswahili-speaking female with a PMH of HFpEF, DMII (with lower extremity neuropathy), COPD (on home O2 2L NC), postural hypotension. She has been seen by outpatient nephrology Dr Mills earlier this year for orthostatic hypotension. presented 04/07 with dyspnea, fever, hypoxia. found to have b/l pleural effusions, right thoracentesis drained 1100mL fluid 04/08, left thoracentesis on 04/09 drained 800mL fluid. also found to have bacteremia and UTI. Nephrology consulted for DILLON. receiving lasix 40mg PO daily for treatment of acute on chronic HF with effusions due to rise in creatinine on 04/14, lasix was discontinued. creatinine 1.71 on admission (04/07/24), 1.65 on 04/11, next creatinine 04/14 was 2.13, 04/15 was 2.36, 04/16 2.38 04/17 creatinine is 2.39, potassium is 6.0 creatinine prior to admission from last hospitalization in February on discharge was 1.72 on 02/13/24 (DILLON from vanco toxicity) but stable (prior to hospitalization was 1.15). Pt did not keep her hospital follow up appt with nephrology. CT of abd/pelvis 04/07 showed no hydronephrosis/calculi. she reports she is urinating comfortably, denies burning, difficulty emptying bladder, blood in urine, flank pain. she denies dyspnea at this time and reports she is breathing comfortably (osat 97% on RA, NC is under her chin), she is sitting in recliner. She denies abdominal pain, chest pain. States she continues to have chronic lower extremity pain (neuropathy). Physical Exam 2 Vital Signs: Vital Signs: Last Vital Signs Temp 97.6 F 04/17/24 08:00 Pulse 95 04/17/24 08:00 Resp 20 04/17/24 08:00 BP 141/60 H 04/17/24 08:00 Pulse Ox 97 04/17/24 08:00 O2 Del Method Room Air 04/17/24 08:00 O2 Flow Rate 2 04/17/24 03:34 Oxygen Flow Rate 2 04/07/24 10:37 BMI result Body Mass Index 32.1 Const: General: no acute distress, alert and awake Resp: Effort & Inspection: normal respiratory effort and able to speak in complete sentences Auscultation: diminished lung sounds (bilateral lower lobes diminished. ) bilateral Cardio: Rate: regular rate Rhythm: regular rhythm Heart sounds: S1 normal heart sound present and S2 normal heart sound present GI: Palpation (GI): Soft to palpation and nontender : General: Yes no CVA tenderness Back/Spine/Pelvis: Back: no CVA tenderness Skin: Lesions: no lesions Rashes: no rashes Extrem: General: No edema Objective Data Labs 04/10/24 05:56 04/17/24 06:34 Labs: Laboratory Results - last 24 hr 04/16/24 04/16/24 04/16/24 11:18 16:37 20:40 Hold Purple Top Sodium Potassium Chloride Carbon Dioxide Anion Gap BUN Creatinine Estim Creat Clear Calc Estimated GFR POC Glucose 165 H 249 H 213 H Random Glucose Calcium 04/17/24 04/17/24 06:34 07:18 Hold Purple Top SEE NOTE Sodium 129 L Potassium 6.0 H* Chloride 94 L Carbon Dioxide 28 Anion Gap 13 BUN 65 H Creatinine 2.39 H Estim Creat Clear Calc 26.3 Estimated GFR 21 POC Glucose 166 H Random Glucose 197 H Calcium 8.2 L D Microbiology Microbiology Results: Microbiology 04/11/24 08:10 Blood - Venous Blood Culture - Final No growth after 5 days. 04/11/24 08:10 Blood - Venous Blood Culture - Final No growth after 5 days. 04/07/24 12:43 Blood - Venous Blood Culture - Final Serratia marcescens 04/07/24 12:43 Blood - Venous Blood Culture - Final Serratia marcescens 04/07/24 Unknown Urine clean catch - Clean Catch Midstream Urine Culture - Final Serratia marcescens Procedures Date of Service Date of Service: 04/17/24 Assessment & Plan Assessment and plan (1) Acute kidney injury: Status: Resolved (2) UTI (urinary tract infection): Status: Acute (3) Congestive heart failure (CHF): Status: Acute Plan DILLON most likely ATN secondary to hypovolemia from diuresis did have renal injury in February from vanco toxicity without full recovery, may have more permanent reduced renal function at baseline, though anticipate will have some gradual improvement from ATN over time. unlikely AG or IN given lack of persistent proteinuria/hematuria re-check UA and also serum complements - pending recommend lokelma PRN for hyperkalemia recommend continue to hold lasix and ARB, avoid nephrotoxins recommend daily renal function and electrolyte checks recommend regular blood pressure checks, close I&O monitoring continue supportive care Discussed with patient importance of seeing outpatient nephrology for management of CKD, will arrange appt. Discussed with Dr Mills Time Spent With Patient Time: Total time managing care of this patient today ____ minutes. Progress Note: Quality Stroke Does the patient have a stroke diagnosis?: No
--- NOTE | 2024-04-17 10:08 | MHC.CLN ---
F/U PO INTAJE 75-100% PT WITH INCREASED NUTRITION RISK R/T PRESSURE INJURY DIET RX: 1800DM 2GM NA-APPROPRIATE RECEIVING ENSURE MAX BID TO PROMOTE WOUND HEALING SUPP TO PROVIDE 300KCALS, 60G PROTEIN MONITOR PO INTAKE AND ENCOURAGE SUPPLEMENTS
--- NOTE | 2024-04-17 10:13 | HO.WOUND ---
Wound Consult: Initial 53yr old female admitted [place] [facility] [place] - See progress notes and H&P for detailed history.? Wound consult placed for Sacrum.? Patient agreeable to assessment and photo documentation.? Sacrum and buttock Etiology: Bruise and chronic MASD noted Measurements: bruise 2cm x 1cm Wound Bed: blue intact tissue - not consistent color of DTI or Pressure injury - consistent with bruising Drainage / Odor: None Edges: ? well defined Gabby wound: Buttock noted for chronic MASD - dark hyperpigmentation noted ? No Induration, Fluctuance or Warmth noted Pain: denies Goals of Treatment: ? Prevention for return of active MASD and PI - barrier cream as needed and foam dressing to aid in pressure redistribution. Recommendations: 1. Turn and Reposition every 2 hours and as needed for patient comfort.? Use pillows or wedges to support off loading positions. 2. Off Load all bony prominences with use of pillows and heel boots if needed.? Apply Preventative foams where needed. ?Waffle cushion when up to chair. 3. Monitor for incontinence and moisture control, use barrier creams when needed for prevention and treatment. 4. Provide adequate and supplemental nutrition.? 5. Order low air loss mattress. 6. When applicable maintain blood glucose levels per Providers order. 7. Sacrum and buttock - Routine cleansing. Apply skin prep to sacral area apply foam dressing. Peel back and assess Q shift. Change every 5 days and PRN. Buttock - Routine cleansing, apply barrier cream twice a day and PRN. Re-consult wound care Nurse for wound deterioration or wound changes.
--- NOTE | 2024-04-17 10:32 | MHC.CM.PN ---
Per ROUNDS, Patient is not yet medically cleared for dc (DILLON);STR is the goal and CM will follow.
[2024-04-17 11:34] VITALS: BP 115/57; PULSE 87; RESP 20; TEMP 37.2; O2SAT 100
[2024-04-17 11:44] LABS: Glucose, Whole Blood 132 mg/dL (60-115)
--- NOTE | 2024-04-17 15:07 | HO.PM.IMPN ---
Subjective Subjective Date of Service: 04/17/24 Interval History: Complaining of bilateral foot pain and blurred vision for weeks since lost her eyeglasses. Had 1 episode of nausea vomiting this morning, denies abdominal pain, had large bowel movement today, denies fever chill, no acute events overnight. Review of Systems All other system reviewed and are negative Physical Exam Vital Signs: Vital Signs: Last Vital Signs Temp 98.9 F 04/17/24 11:34 Pulse 87 04/17/24 11:34 Resp 20 04/17/24 11:34 BP 115/57 L 04/17/24 11:34 Pulse Ox 100 04/17/24 11:34 O2 Del Method Nasal Cannula 04/17/24 11:34 O2 Flow Rate 2 04/17/24 11:34 Oxygen Flow Rate 2 04/07/24 10:37 BMI result Body Mass Index 32.1 Const: Other: Gen: in no acute distress HEENT: sclera anicteric Neck: supple,no jvd Lungs: diminished bilaterally, no wheeze, no crackles Heart: regular rate and rhythm, no murmurs Abd: soft, non-tender, bowel sounds audible Ext: no edema Skin: warm/well-perfused Neuro: alert and oriented x3, no focal findings Psych: appropriate affect Objective Data Active Medications Acetaminophen (Acetaminophen 325 Mg Tablet) 650 mg PO Q6H PRN PRN Reason: Pain, Mild (Pain Scale 1-3), fever or headache Last Admin: 04/12/24 21:54 Dose: 650 mg Documented By: MATTIE Amlodipine Besylate (Amlodipine Besylate 10 Mg Tablet) 10 mg PO DAILY [facility]; Protocol Last Admin: 04/17/24 08:11 Dose: 10 mg Documented By: MARU Aspirin (Aspirin Enteric Coated 81 Mg Tablet.) 81 mg PO DAILY@0900 [facility] Last Admin: 04/17/24 08:10 Dose: 81 mg Documented By: MARU Benzonatate (Benzonatate 100 Mg Capsule) 100 mg PO TID PRN PRN Reason: Cough Calcium Carbonate (Calcium Carbonate 750 Mg Tab.Chew) 750 mg PO Q4H PRN PRN Reason: Heartburn Last Admin: 04/15/24 11:16 Dose: 750 mg Documented By: RAFAEL Docusate Sodium (Docusate Sodium 100 Mg Capsule) 200 mg PO BEDTIME PRN PRN Reason: Constipation Enoxaparin Sodium (Enoxaparin Sodium 30 Mg/0.3 Ml Syringe) 30 mg SUBCUT Q24H [facility] Last Admin: 04/16/24 17:18 Dose: 30 mg Documented By: RAFAEL Ferrous Sulfate (Ferrous Sulfate 324 Mg Tablet.) 324 mg PO Q48H [facility] Last Admin: 04/16/24 09:41 Dose: 324 mg Documented By: FARZANEHCIHUEY Gabapentin (Gabapentin 100 Mg Capsule) 100 mg PO TID [facility] Last Admin: 04/17/24 14:30 Dose: 100 mg Documented By: MARU Insulin Glargine (Insulin Glargine,Hum.Rec.Anlog 100 Unit/Ml 10 Ml Vial) 10 unit SUBCUT BEDTIME [facility] Insulin Human Lispro (Insulin Lispro 100 Unit/Ml 3 Ml Vial) 0 unit SUBCUT QIDACHS [facility]; Protocol Last Admin: 04/17/24 11:52 Dose: Not Given Documented By: MARU Non-Admin Reason: No Insulin Coverage Lactulose (Lactulose 20 Gm/30 Ml Solution) 10 gm PO BID PRN PRN Reason: constipation Last Admin: 04/15/24 01:35 Dose: 10 gm Documented By: NIKKI Levofloxacin (Levofloxacin 750 Mg Tablet) 750 mg PO Q48H [facility] Last Admin: 04/16/24 23:36 Dose: 750 mg Documented By: MATTIE Lidocaine (Lidocaine 4 % Patch Adh..Patch) 1 patch TRANSDERMA DAILY [facility]; Protocol Last Admin: 04/17/24 08:11 Dose: 1 patch Documented By: MARU Magnesium Hydroxide (Milk Of Magnesia 30 Ml Oral.Susp) 30 ml PO DAILY PRN PRN Reason: Constipation Last Admin: 04/16/24 05:30 Dose: 30 ml Documented By: ANTOIC Melatonin (Melatonin 3 Mg Tablet) 6 mg PO BEDTIME PRN PRN Reason: Insomnia Omeprazole (Omeprazole 40 Mg Capsule.) 40 mg PO DAILY@0630 [facility] Last Admin: 04/17/24 05:20 Dose: 40 mg Documented By: MATTIE Ondansetron HCl (Ondansetron Hcl 4 Mg/2 Ml Vial) 4 mg IVPUSH Q8H PRN PRN Reason: Nausea and Vomiting Last Admin: 04/17/24 08:10 Dose: 4 mg Documented By: MARU Sodium Chloride (0.9 % Sodium Chloride Flush 3 Ml Syringe) 3 ml IVFLUSH QSHIFT [facility] Last Admin: 04/17/24 08:44 Dose: 3 ml Documented By: MARU Labs 04/10/24 05:56 04/17/24 06:34 Labs: Laboratory Results - last 24 hr 04/16/24 04/16/24 04/17/24 16:37 20:40 06:34 Hold Purple Top SEE NOTE Anion Gap 13 Estim Creat Clear Calc 26.3 Estimated GFR 21 POC Glucose 249 H 213 H Random Glucose 197 H Calcium 8.2 L D 04/17/24 04/17/24 07:18 11:36 Hold Purple Top Anion Gap Estim Creat Clear Calc Estimated GFR POC Glucose 166 H 132 H Random Glucose Calcium Microbiology Microbiology Results: Microbiology 04/11/24 08:10 Blood Culture - Final Blood - Venous No growth after 5 days. 04/11/24 08:10 Blood Culture - Final Blood - Venous No growth after 5 days. Assessment and Plan (1) Bacterial infection due to Serratia: Status: Acute (2) Acute hypoxic respiratory failure: Status: Acute (3) Hyperkalemia: Status: Acute (4) Acute kidney injury superimposed on CKD: Status: Acute Plan 53yo M with COPD on home O2 2L, DM2, HFrEF, HTN who presented with fever, dyspnea, and hypoxia and was found to be septic from bacteremia/UTI acute/chronic hypoxic resp failure due to acute/chronic HFpEF with bilateral pleural effusions - denies shortness of breath, no chest pain, no PND >3.5L neg - R-sided thoracentesis done 04/08 with 1100 mL fluid removed - L-sided thoracentesis done 04/09 with 800 mL fluid removed - echo 02/09 showed EF 45-50%, - appears euvolemic after diuresing with IV furosemide; Lasix on hold since 04/14 due to rising creatinine - on home O2 2L, follow clinical course and BMP Serratia marcescens UTI/bacteremia - cefepime 04/07-04/10, changed to ceftriaxone 04/10. ID consulted, changed to levofloxacin 04/10- and plan 14 days from 1st negative BCx, which were drawn 04/11, blood culture negative times 48 hours On renally dosed Levaquin end date 04/25. DILLON/CKD3 - creatinine worsened likely due to over-diuresis , no hypotension, hold Lasix and continue to hold losartan, follow BMP, s/p ivf ,will push by mouth fluids Creatinine at baseline 1.7 now jumped to 2.39 /give iv ns x 750 Nephrology agree with above treatment plan. Acute hyperkalemia Lokelma 10 mg, follow BMP, hold losartan. CBD dilation with calcifications- likely chronic; per GI, consider outpt MRCP, normal LFTs, no abdominal pain. HTN - continue amlodipine; losartan held for worsening renal function, DM2 - stable blood sugars, basal/bolus insulin neuropathy- good pain control gabapentin dose increased to 100 mg tid on 04/12 HLD - statin History of head lice no lice noted on this admission, was treated with 3 doses of permethrin during last hospitalization on February. Constipation resolved, continue prn stool softeners VTE ppx - enoxaparin dispo - to short-term rehab patient agreed In my clinical judgment, the patient requires continued inpatient hospitalization for the following reasons: bacteremia/dillon/medication adjustment. Quality Stroke Does the patient have a stroke diagnosis?: No VTE Prior VTE?: No VTE Risk Level:: Medical - moderate - high VTE Device Contraindication: Treatment Not Indicated VTE Drug Contraindication: N/A - Med Ordered
[2024-04-17 15:43] VITALS: BP 148/70; PULSE 89; RESP 12; TEMP 36.4; O2SAT 100
[2024-04-17 15:54] LABS: Osmolality Urine 280 mosm/kg (373-1093)
[2024-04-17] MEDS: 0.9 % Sodium Chloride 1,000 ML 80 ML IVCONT (16:09)
[2024-04-17 16:49] LABS: Glucose, Whole Blood 209 mg/dL (60-115)
[2024-04-17] MEDS: Enoxaparin Sodium 30 MG/0.3 ML SYRINGE SUBCUT (17:10)
[2024-04-17 19:51] VITALS: BP 126/61; PULSE 83; RESP 16; TEMP 37.5; O2SAT 99
[2024-04-17 20:12] LABS: Glucose, Whole Blood 155 mg/dL (60-115)
[2024-04-17] MEDS: Insulin Glargine,Hum.rec.anlog 100 UNIT/ML 10 ML VIAL 10 UNIT SUBCUT (21:33)
[2024-04-17 23:07] VITALS: BP 120/57; PULSE 83; RESP 16; TEMP 36.9; O2SAT 98
[2024-04-18] MEDS: 0.9 % Sodium Chloride Flush 3 ML SYRINGE IVFLUSH ×3 (01:38→23:50)
[2024-04-18 03:16] VITALS: BP 127/57; PULSE 83; RESP 14; TEMP 37.2; O2SAT 99
[2024-04-18] MEDS: Omeprazole 40 MG CAPSULE.DR PO (05:46)
[2024-04-18 07:15] LABS: Anion Gap 13 (12-20); Blood Urea Nitrogen 76 mg/dL (9-16); Calcium 8.3 mg/dL (8.4-10.2); Carbon Dioxide 25 mmol/L (22-29); Chloride 94 mmol/L (96-108); Creatinine Clr Calc Pharmacy 22.3; Estimated Glomerular Filt Rate 18; Glucose Random 288 mg/dL (60-115); Potassium 5.4 mmol/L (3.3-5.1); Sodium 127 mmol/L (135-145)
[2024-04-18 07:27] LABS: Glucose, Whole Blood 342 mg/dL (60-115)
[2024-04-18 08:00] VITALS: BP 150/74; PULSE 83; RESP 18; TEMP 36.5; O2SAT 100
[2024-04-18] MEDS: Aspirin Enteric Coated 81 MG TABLET.DR PO (08:11)
[2024-04-18] MEDS: Ferrous Sulfate 324 MG TABLET.DR PO (08:11)
[2024-04-18] MEDS: Gabapentin 100 MG CAPSULE PO ×3 (08:11→21:38)
[2024-04-18] MEDS: Insulin Lispro 100 UNIT/ML 3 ML VIAL SUBCUT ×3 (08:11→21:39)
[2024-04-18] MEDS: amLODIPine Besylate 10 MG TABLET PO (08:11)
[2024-04-18] MEDS: Lidocaine 4 % Patch ADH..PATCH 1 PATCH TRANSDERMA (08:12)
[2024-04-18] MEDS: 0.9 % Sodium Chloride 1,000 ML 80 ML IVCONT (08:24)
--- NOTE | 2024-04-18 11:20 | P.PNIM_ITS ---
Subjective Subjective Date of Service: 04/18/24 Interval History: seen and examined this AM reports no complaints - no n/v abd pain Review of Systems Negative except HPI/interval history. Physical Exam 2 Vital Signs: Vital Signs: Last Vital Signs Temp 99 F 04/18/24 03:16 Pulse 83 04/18/24 03:16 Resp 14 04/18/24 03:16 BP 127/57 L 04/18/24 03:16 Pulse Ox 99 04/18/24 03:16 O2 Del Method Nasal Cannula 04/18/24 03:16 O2 Flow Rate 2 04/18/24 03:16 Oxygen Flow Rate 2 04/07/24 10:37 BMI result Body Mass Index 32.1 Const: Other: General - no acute distress, appears comfortable Cardiovascular - regular rate and rhythm, S1-S2 Lungs - normal respiratory effort, clear to auscultation bilaterally, no wheezing Abdomen - soft, nontender, no rebound or guarding Extremities - no edema bilaterally Neuro - awake and alert, no focal deficits Objective Data Active Medications Acetaminophen (Acetaminophen 325 Mg Tablet) 650 mg PO Q6H PRN PRN Reason: Pain, Mild (Pain Scale 1-3), fever or headache Last Admin: 04/12/24 21:54 Dose: 650 mg Documented By: MATTIE Amlodipine Besylate (Amlodipine Besylate 10 Mg Tablet) 10 mg PO DAILY [facility]; Protocol Last Admin: 04/18/24 08:11 Dose: 10 mg Documented By: JHONNY Aspirin (Aspirin Enteric Coated 81 Mg Tablet.Dr) 81 mg PO DAILY@0900 [facility] Last Admin: 04/18/24 08:11 Dose: 81 mg Documented By: JHONNY Benzonatate (Benzonatate 100 Mg Capsule) 100 mg PO TID PRN PRN Reason: Cough Calcium Carbonate (Calcium Carbonate 750 Mg Tab.Chew) 750 mg PO Q4H PRN PRN Reason: Heartburn Last Admin: 04/15/24 11:16 Dose: 750 mg Documented By: RAFAEL Docusate Sodium (Docusate Sodium 100 Mg Capsule) 200 mg PO BEDTIME PRN PRN Reason: Constipation Enoxaparin Sodium (Enoxaparin Sodium 30 Mg/0.3 Ml Syringe) 30 mg SUBCUT Q24H [facility] Last Admin: 04/17/24 17:10 Dose: 30 mg Documented By: MARU Ferrous Sulfate (Ferrous Sulfate 324 Mg Tablet.) 324 mg PO Q48H [facility] Last Admin: 04/18/24 08:11 Dose: 324 mg Documented By: JHONNY Gabapentin (Gabapentin 100 Mg Capsule) 100 mg PO TID [facility] Last Admin: 04/18/24 08:11 Dose: 100 mg Documented By: JHONNY Sodium Chloride (Ns) 1,000 mls @ 80 mls/hr IVCONT .[id number] [facility] Stop: 04/18/24 20:44 Last Admin: 04/18/24 08:24 Dose: 80 mls/hr Documented By: JHONNY Insulin Glargine (Insulin Glargine,Hum.Rec.Anlog 100 Unit/Ml 10 Ml Vial) 10 unit SUBCUT BEDTIME [facility] Last Admin: 04/17/24 21:33 Dose: 10 unit Documented By: REJI Insulin Human Lispro (Insulin Lispro 100 Unit/Ml 3 Ml Vial) 0 unit SUBCUT QIDACHS [facility]; Protocol Last Admin: 04/18/24 08:11 Dose: 10 unit Documented By: JHONNY Lactulose (Lactulose 20 Gm/30 Ml Solution) 10 gm PO BID PRN PRN Reason: constipation Last Admin: 04/15/24 01:35 Dose: 10 gm Documented By: NIKKI Levofloxacin (Levofloxacin 750 Mg Tablet) 750 mg PO Q48H [facility] Last Admin: 04/16/24 23:36 Dose: 750 mg Documented By: MATTIE Lidocaine (Lidocaine 4 % Patch Adh..Patch) 1 patch TRANSDERMA DAILY [facility]; Protocol Last Admin: 04/18/24 08:12 Dose: 1 patch Documented By: JHONNY Magnesium Hydroxide (Milk Of Magnesia 30 Ml Oral.Susp) 30 ml PO DAILY PRN PRN Reason: Constipation Last Admin: 04/16/24 05:30 Dose: 30 ml Documented By: ANTOIC Melatonin (Melatonin 3 Mg Tablet) 6 mg PO BEDTIME PRN PRN Reason: Insomnia Omeprazole (Omeprazole 40 Mg Capsule.) 40 mg PO DAILY@0630 [facility] Last Admin: 04/18/24 05:46 Dose: 40 mg Documented By: REJI Ondansetron HCl (Ondansetron Hcl 4 Mg/2 Ml Vial) 4 mg IVPUSH Q8H PRN PRN Reason: Nausea and Vomiting Last Admin: 04/17/24 08:10 Dose: 4 mg Documented By: MARU Sodium Chloride (0.9 % Sodium Chloride Flush 3 Ml Syringe) 3 ml IVFLUSH QSHIFT [facility] Last Admin: 04/18/24 08:12 Dose: 3 ml Documented By: JHONNY Labs 04/10/24 05:56 04/18/24 06:26 Labs: Laboratory Results - last 24 hr 04/17/24 04/17/24 04/17/24 11:36 14:41 16:44 Hold Purple Top Anion Gap Estim Creat Clear Calc Estimated GFR POC Glucose 132 H 209 H Random Glucose Calcium Urine Osmolality 280 L Ur Random Sodium 37.0 04/17/24 04/18/24 04/18/24 20:03 06:26 07:17 Hold Purple Top SEE NOTE Anion Gap 13 Estim Creat Clear Calc 22.3 Estimated GFR 18 POC Glucose 155 H 342 H Random Glucose 288 H Calcium 8.3 L Urine Osmolality Ur Random Sodium Assessment and Plan (1) Bacterial infection due to Serratia: Status: Acute (2) Acute hypoxic respiratory failure: Status: Acute (3) Hyperkalemia: Status: Acute (4) Acute kidney injury superimposed on CKD: Status: Acute Plan 53yo M with COPD on home O2 2L, DM2, HFrEF, HTN who presented with fever, dyspnea, and hypoxia and was found to be septic from bacteremia/UTI acute/chronic hypoxic resp failure due to acute/chronic HFpEF with bilateral pleural effusions - denies shortness of breath, no chest pain, no PND >3.5L neg - R-sided thoracentesis done 04/08 with 1100 mL fluid removed - L-sided thoracentesis done 04/09 with 800 mL fluid removed - echo 02/09 showed EF 45-50%, - appears euvolemic after diuresing with IV furosemide; Lasix on hold since 04/14 due to rising creatinine - on home O2 2L, follow clinical course and BMP Serratia marcescens UTI/bacteremia - cefepime 04/07-04/10, changed to ceftriaxone 04/10. ID consulted, changed to levofloxacin 04/10- and plan 14 days from 1st negative BCx, which were drawn 04/11, blood culture negative times 48 hours On renally dosed Levaquin end date 04/25. DILLON/CKD3 - creatinine worsened likely due to over-diuresis , no hypotension, hold Lasix and continue to hold losartan, follow BMP, s/p ivf ,will push by mouth fluids Creatinine at baseline 1.7 now rising to over 2.8 -- will give an additional 1L NS today d/w Dr. Dominguez Acute hyperkalemia Lokelma 10 mg, follow BMP, hold losartan. improved CBD dilation with calcifications- likely chronic; per GI, consider outpt MRCP, normal LFTs, no abdominal pain. HTN - continue amlodipine; losartan held for worsening renal function, DM2 - stable blood sugars, basal/bolus insulin neuropathy- good pain control gabapentin dose increased to 100 mg tid on 04/12 HLD - statin History of head lice no lice noted on this admission, was treated with 3 doses of permethrin during last hospitalization on February. Constipation resolved, continue prn stool softeners VTE ppx - enoxaparin dispo - to short-term rehab patient agreed In my clinical judgment, the patient requires continued inpatient hospitalization for the following reasons: worsening renal function Quality Stroke Does the patient have a stroke diagnosis?: No VTE Prior VTE?: No VTE Risk Level:: Medical - moderate - high VTE Device Contraindication: Treatment Not Indicated VTE Drug Contraindication: N/A - Med Ordered
[2024-04-18 11:31] LABS: Glucose, Whole Blood 89 mg/dL (60-115)
[2024-04-18 11:59] VITALS: BP 145/67; PULSE 88; RESP 14; TEMP 36.5; O2SAT 99
[2024-04-18 16:00] VITALS: BP 146/74; PULSE 89; RESP 16; TEMP 36.1; O2SAT 98
[2024-04-18 16:33] LABS: Glucose, Whole Blood 181 mg/dL (60-115)
[2024-04-18] MEDS: Enoxaparin Sodium 30 MG/0.3 ML SYRINGE SUBCUT (17:41)
[2024-04-18 19:50] VITALS: BP 125/51; PULSE 94; RESP 18; TEMP 36.8; O2SAT 99
[2024-04-18 20:58] LABS: Glucose, Whole Blood 170 mg/dL (60-115)
[2024-04-18] MEDS: levoFLOXacin 750 MG TABLET PO (21:38)
[2024-04-18] MEDS: Insulin Glargine,Hum.rec.anlog 100 UNIT/ML 10 ML VIAL 10 UNIT SUBCUT (21:41)
[2024-04-18 23:58] VITALS: BP 118/54; PULSE 89; RESP 14; TEMP 36.6; O2SAT 96
[2024-04-19] VITALS (9 sets, daily range): BP systolic 109–136; BP diastolic 54–67; PULSE 81–90; RESP 14–18; TEMP 36–36.8; O2SAT 96–100
[2024-04-19] MEDS: Omeprazole 40 MG CAPSULE.DR PO (05:26)
[2024-04-19 07:51] LABS: Glucose, Whole Blood 101 mg/dL (60-115)
[2024-04-19 08:35] LABS: Mean Corpuscular HGB Conc 32.7 g/dl (31.0-35.0); Mean Corpuscular Volume 85.8 fL (80.0-98.0); Platelet Count 170 X10*3/uL (160-400); Red Blood Count 2.39 X10*6/uL (4.20-5.50); Red Cell Distribution Width 14.8 % (11.0-16.0); White Blood Count 8.3 X10*3/uL (4.8-10.8)
[2024-04-19 08:38] LABS: Hematocrit 20.5 % (37.0-47.0)
[2024-04-19 08:43] LABS: Hemoglobin 6.7 g/dl (12.0-16.0)
[2024-04-19 08:52] LABS: Alanine Aminotransferase 32 U/L (0-31); Albumin Level 2.7 g/dL (3.5-5.0); Alkaline Phosphatase 97 U/L (39-117); Anion Gap 11 (12-20); Aspartate Amino Transferase 35 U/L (5-31); Bilirubin Total 0.1 mg/dL (0.0-1.0); Blood Urea Nitrogen 88 mg/dL (9-16); Calcium 7.9 mg/dL (8.4-10.2); Carbon Dioxide 25 mmol/L (22-29); Chloride 97 mmol/L (96-108); Creatinine Clr Calc Pharmacy 23.5; Estimated Glomerular Filt Rate 19; Glucose Random 105 mg/dL (60-115); Potassium 5.4 mmol/L (3.3-5.1); Sodium 128 mmol/L (135-145); Total Protein 6.3 g/dL (6.5-8.0)
[2024-04-19] MEDS: 0.9 % Sodium Chloride Flush 3 ML SYRINGE IVFLUSH ×3 (09:57→23:15)
[2024-04-19] MEDS: Aspirin Enteric Coated 81 MG TABLET.DR PO (09:57)
[2024-04-19] MEDS: amLODIPine Besylate 10 MG TABLET PO (09:57)
[2024-04-19] MEDS: Gabapentin 100 MG CAPSULE PO ×3 (09:57→23:14)
[2024-04-19] MEDS: Lidocaine 4 % Patch ADH..PATCH 1 PATCH TRANSDERMA (09:57)
[2024-04-19] MEDS: Acetaminophen 325 MG TABLET 650 MG PO ×2 (10:03→23:13)
--- NOTE | 2024-04-19 10:13 | P.PNIM_ITS ---
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 denies bleeding breathing okay reports hip pain -- not new Physical Exam 2 Vital Signs: Vital Signs: Last Vital Signs Temp 98.2 F 04/19/24 08:00 Pulse 86 04/19/24 08:00 Resp 18 04/19/24 08:00 BP 120/59 L 04/19/24 09:57 Pulse Ox 100 04/19/24 08:00 O2 Del Method Nasal Cannula 04/19/24 08:00 O2 Flow Rate 2 04/19/24 08:00 Oxygen Flow Rate 2 04/07/24 10:37 BMI result Body Mass Index 32.1 Const: Other: General - no acute distress, appears comfortable Cardiovascular - regular rate and rhythm, S1-S2 Lungs - normal respiratory effort, clear to auscultation bilaterally, no wheezing Abdomen - soft, nontender, no rebound or guarding Extremities - no edema bilaterally Neuro - awake and alert, no focal defici Objective Data Active Medications Acetaminophen (Acetaminophen 325 Mg Tablet) 650 mg PO Q6H PRN PRN Reason: Pain, Mild (Pain Scale 1-3), fever or headache Last Admin: 04/19/24 10:03 Dose: 650 mg Documented By: SAMMI Amlodipine Besylate (Amlodipine Besylate 10 Mg Tablet) 10 mg PO DAILY [facility]; Protocol Last Admin: 04/19/24 09:57 Dose: 10 mg Documented By: SAMMI Aspirin (Aspirin Enteric Coated 81 Mg Tablet.Dr) 81 mg PO DAILY@0900 [facility] Last Admin: 04/19/24 09:57 Dose: 81 mg Documented By: SAMMI Benzonatate (Benzonatate 100 Mg Capsule) 100 mg PO TID PRN PRN Reason: Cough Calcium Carbonate (Calcium Carbonate 750 Mg Tab.Chew) 750 mg PO Q4H PRN PRN Reason: Heartburn Last Admin: 04/15/24 11:16 Dose: 750 mg Documented By: RAFAEL Docusate Sodium (Docusate Sodium 100 Mg Capsule) 200 mg PO BEDTIME PRN PRN Reason: Constipation Enoxaparin Sodium (Enoxaparin Sodium 30 Mg/0.3 Ml Syringe) 30 mg SUBCUT Q24H [facility] Last Admin: 04/18/24 17:41 Dose: 30 mg Documented By: JHONNY Ferrous Sulfate (Ferrous Sulfate 324 Mg Tablet.) 324 mg PO Q48H [facility] Last Admin: 04/18/24 08:11 Dose: 324 mg Documented By: JHONNY Gabapentin (Gabapentin 100 Mg Capsule) 100 mg PO TID [facility] Last Admin: 04/19/24 09:57 Dose: 100 mg Documented By: SAMMI Insulin Glargine (Insulin Glargine,Hum.Rec.Anlog 100 Unit/Ml 10 Ml Vial) 10 unit SUBCUT BEDTIME [facility] Last Admin: 04/18/24 21:41 Dose: 10 unit Documented By: CHARLI Insulin Human Lispro (Insulin Lispro 100 Unit/Ml 3 Ml Vial) 0 unit SUBCUT QIDACHS [facility], [facility]; Protocol Last Admin: 04/19/24 08:02 Dose: Not Given Documented By: SAMMI Non-Admin Reason: No Insulin Coverage Lactulose (Lactulose 20 Gm/30 Ml Solution) 10 gm PO BID PRN PRN Reason: constipation Last Admin: 04/15/24 01:35 Dose: 10 gm Documented By: NIKKI Levofloxacin (Levofloxacin 750 Mg Tablet) 750 mg PO Q48H [facility] Last Admin: 04/18/24 21:38 Dose: 750 mg Documented By: CHARLI Lidocaine (Lidocaine 4 % Patch Adh..Patch) 1 patch TRANSDERMA DAILY [facility], [facility]; Protocol Last Admin: 04/19/24 09:57 Dose: 1 patch Documented By: SAMMI Magnesium Hydroxide (Milk Of Magnesia 30 Ml Oral.Susp) 30 ml PO DAILY PRN PRN Reason: Constipation Last Admin: 04/16/24 05:30 Dose: 30 ml Documented By: ANTOIC Melatonin (Melatonin 3 Mg Tablet) 6 mg PO BEDTIME PRN PRN Reason: Insomnia Omeprazole (Omeprazole 40 Mg Capsule.) 40 mg PO DAILY@0630 [facility] Last Admin: 04/19/24 05:26 Dose: 40 mg Documented By: CHARLI Ondansetron HCl (Ondansetron Hcl 4 Mg/2 Ml Vial) 4 mg IVPUSH Q8H PRN PRN Reason: Nausea and Vomiting Last Admin: 04/17/24 08:10 Dose: 4 mg Documented By: MARU Sodium Chloride (0.9 % Sodium Chloride Flush 3 Ml Syringe) 3 ml IVFLUSH QSHIFT [facility] Last Admin: 04/19/24 09:57 Dose: 3 ml Documented By: SAMMI Labs 04/19/24 07:22 04/19/24 07:22 Labs: Laboratory Results - last 24 hr 04/18/24 04/18/24 04/18/24 11:24 16:23 20:51 MCV MCH MCHC RDW Plt Count MPV Absolute Nucleated RBC Nucleated RBC % (auto) Anion Gap Estim Creat Clear Calc Estimated GFR POC Glucose 89 181 H 170 H Random Glucose Calcium Total Bilirubin AST ALT Alkaline Phosphatase Total Protein Albumin Blood Type Antibody Screen Crossmatch 04/19/24 04/19/24 04/19/24 07:22 07:37 09:10 MCV 85.8 MCH 28.0 MCHC 32.7 RDW 14.8 Plt Count 170 MPV 9.0 L Absolute Nucleated RBC 0.000 Nucleated RBC % (auto) 0.0 Anion Gap 11 L Estim Creat Clear Calc 23.5 Estimated GFR 19 POC Glucose 101 Random Glucose 105 Calcium 7.9 L Total Bilirubin 0.1 AST 35 H ALT 32 H Alkaline Phosphatase 97 Total Protein 6.3 L Albumin 2.7 L Blood Type A Positive Antibody Screen NEGATIVE Crossmatch See Detail Assessment and Plan (1) Bacterial infection due to Serratia: Status: Acute (2) Acute hypoxic respiratory failure: Status: Acute (3) Hyperkalemia: Status: Acute (4) Acute kidney injury superimposed on CKD: Status: Acute Plan 53yo M with COPD on home O2 2L, DM2, HFrEF, HTN who presented with fever, dyspnea, and hypoxia and was found to be septic from bacteremia/UTI acute/chronic hypoxic resp failure due to acute/chronic HFpEF with bilateral pleural effusions - denies shortness of breath, no chest pain, no PND >3.5L neg - R-sided thoracentesis done 04/08 with 1100 mL fluid removed - L-sided thoracentesis done 04/09 with 800 mL fluid removed - echo 02/09 showed EF 45-50%, s/p IV diuresis - Lasix on hold since 04/14 due to rising creatinine - on home O2 2L, follow clinical course and BMP Serratia marcescens UTI/bacteremia - cefepime 04/07-04/10, changed to ceftriaxone 04/10. ID consulted, changed to levofloxacin 04/10- and plan 14 days from 1st negative BCx, which were drawn 04/11, blood culture negative times 48 hours On renally dosed Levaquin end date 04/25. DILLON/CKD3 - creatinine worsened likely due to over-diuresis , no hypotension, hold Lasix and continue to hold losartan, follow BMP, s/p ivf ,will push by mouth fluids Cr now slowly improving likey from over diuresis acute on chronic anemia h/h below 7 -- will give 1 unit prbc no evidence of blood loss likely due to anemia of chronic disease + acute illness Acute hyperkalemia Lokelma 10 mg, follow BMP, hold losartan. improved CBD dilation with calcifications- likely chronic; per GI, consider outpt MRCP, normal LFTs, no abdominal pain. HTN - continue amlodipine; losartan held for worsening renal function, DM2 - stable blood sugars, basal/bolus insulin neuropathy- good pain control gabapentin dose increased to 100 mg tid on 04/12 HLD - statin History of head lice no lice noted on this admission, was treated with 3 doses of permethrin during last hospitalization on February. Constipation resolved, continue prn stool softeners VTE ppx - enoxaparin dispo - to short-term rehab patient agreed In my clinical judgment, the patient requires continued inpatient hospitalization for the following reasons: DILLON + anemia requiring transfusion Quality Stroke Does the patient have a stroke diagnosis?: No VTE Prior VTE?: No VTE Risk Level:: Medical - moderate - high VTE Device Contraindication: Treatment Not Indicated VTE Drug Contraindication: N/A - Med Ordered
[2024-04-19 11:37] LABS: Glucose, Whole Blood 130 mg/dL (60-115)
[2024-04-19 16:18] LABS: Glucose, Whole Blood 134 mg/dL (60-115)
[2024-04-19] MEDS: Enoxaparin Sodium 30 MG/0.3 ML SYRINGE SUBCUT (17:21)
[2024-04-19 20:48] LABS: Glucose, Whole Blood 147 mg/dL (60-115)
[2024-04-19] MEDS: Insulin Glargine,Hum.rec.anlog 100 UNIT/ML 10 ML VIAL 10 UNIT SUBCUT (23:14)
[2024-04-19] MEDS: Docusate Sodium 100 MG CAPSULE 200 MG PO (23:27)
[2024-04-19] MEDS: Calcium Carbonate 750 MG TAB.CHEW PO (23:27)
[2024-04-20] VITALS: BP 138/66; PULSE 89; RESP 17; TEMP 36.1; O2SAT 97
[2024-04-20 03:33] VITALS: BP 126/59; PULSE 80; RESP 18; TEMP 36.4; O2SAT 98
[2024-04-20] MEDS: Omeprazole 40 MG CAPSULE.DR PO (05:54)
[2024-04-20 07:38] VITALS: BP 140/66; PULSE 88; RESP 16; TEMP 36.6; O2SAT 99
[2024-04-20 07:45] LABS: Glucose, Whole Blood 116 mg/dL (60-115)
[2024-04-20 08:30] LABS: Hematocrit 25.4 % (37.0-47.0); Hemoglobin 8.6 g/dl (12.0-16.0); Mean Corpuscular HGB Conc 33.9 g/dl (31.0-35.0); Mean Corpuscular Hemoglobin 29.3 pg (27.0-33.0); Mean Corpuscular Volume 86.4 fL (80.0-98.0); Mean Platelet Volume 8.8 fL (9.4-12.3); Platelet Count 166 X10*3/uL (160-400); Red Blood Count 2.94 X10*6/uL (4.20-5.50); Red Cell Distribution Width 15.1 % (11.0-16.0); White Blood Count 9.8 X10*3/uL (4.8-10.8)
--- NOTE | 2024-04-20 08:35 | P.PNNP_ITS ---
Subjective Subjective Date of Service: 04/20/24 Interval history: Pt is a 53 y/o primarily Armenian-speaking female with a PMH of HFpEF, DMII (with lower extremity neuropathy), COPD (on home O2 2L NC), postural hypotension. presented 04/07 with dyspnea, fever, hypoxia. found to have b/l pleural effusions, right thoracentesis drained 1100mL fluid 04/08, left thoracentesis on 04/09 drained 800mL fluid. also found to have bacteremia and UTI. Nephrology consulted for DILLON. lasix 40mg PO daily for treatment of acute on chronic HF with effusions on hold due to rise in creatinine on 04/14, which has persisted. creatinine 1.71 on admission (04/07/24), 1.65 on 04/11, next creatinine 04/14 was 2.13, 04/15 was 2.36, 04/16 2.38, 04/18 2.84, 04/19 2.67, 04/20 2.77 potassium remains elevated, receiving PRN lokelma creatinine prior to admission from last hospitalization in February on discharge was 1.72 on 02/13/24 (DILLON from vanco toxicity) but stable (prior to hospitalization was 1.15). CT of abd/pelvis 04/07 showed no hydronephrosis/calculi. she reports she is urinating comfortably, denies burning, difficulty emptying bladder, blood in urine, flank pain. she denies dyspnea at this time and reports she is breathing comfortably (osat 97% on RA, NC is under her chin), she is sitting in recliner. She denies abdominal pain, chest pain. States she continues to have chronic lower extremity pain (neuropathy). Physical Exam 2 Vital Signs: Vital Signs: Last Vital Signs Temp 97.9 F 04/20/24 07:38 Pulse 88 04/20/24 07:38 Resp 16 04/20/24 07:38 BP 140/66 H 04/20/24 07:38 Pulse Ox 99 04/20/24 07:38 O2 Del Method Nasal Cannula 04/20/24 07:38 O2 Flow Rate 2 04/20/24 07:38 Oxygen Flow Rate 2 04/07/24 10:37 BMI result Body Mass Index 32.1 Const: General: no acute distress, alert and awake Resp: Effort & Inspection: normal respiratory effort and able to speak in complete sentences Auscultation: diminished lung sounds (bilateral lower lobes diminished. ) bilateral Cardio: Rate: regular rate Rhythm: regular rhythm Heart sounds: S1 normal heart sound present and S2 normal heart sound present GI: Palpation (GI): Soft to palpation and nontender : General: Yes no CVA tenderness Back/Spine/Pelvis: Back: no CVA tenderness Skin: Lesions: no lesions Rashes: no rashes Extrem: General: No edema Objective Data Labs 04/20/24 08:08 04/20/24 08:08 Labs: Laboratory Results - last 24 hr 04/19/24 04/19/24 04/19/24 09:10 11:29 16:09 WBC RBC Hgb Hct MCV MCH MCHC RDW Plt Count MPV Absolute Nucleated RBC Nucleated RBC % (auto) Sodium Potassium Chloride Carbon Dioxide Anion Gap BUN Creatinine Estim Creat Clear Calc Estimated GFR POC Glucose 130 H 134 H Random Glucose Calcium Blood Type A Positive Antibody Screen NEGATIVE Crossmatch See Detail 04/19/24 04/20/24 04/20/24 20:44 07:40 08:08 WBC 9.8 RBC 2.94 L D Hgb 8.6 L D Hct 25.4 L D MCV 86.4 MCH 29.3 MCHC 33.9 RDW 15.1 Plt Count 166 MPV 8.8 L Absolute Nucleated RBC 0.000 Nucleated RBC % (auto) 0.0 Sodium 128 L Potassium 5.7 H Chloride 95 L Carbon Dioxide 22 Anion Gap 17 BUN 101 H Creatinine 2.77 H Estim Creat Clear Calc 22.6 Estimated GFR 18 POC Glucose 147 H 116 H Random Glucose 112 Calcium 8.7 D Blood Type Antibody Screen Crossmatch Microbiology Microbiology Results: Microbiology 04/11/24 08:10 Blood - Venous Blood Culture - Final No growth after 5 days. 04/11/24 08:10 Blood - Venous Blood Culture - Final No growth after 5 days. 04/07/24 12:43 Blood - Venous Blood Culture - Final Serratia marcescens 04/07/24 12:43 Blood - Venous Blood Culture - Final Serratia marcescens 04/07/24 Unknown Urine clean catch - Clean Catch Midstream Urine Culture - Final Serratia marcescens Procedures Date of Service Date of Service: 04/20/24 Assessment & Plan Assessment and plan (1) Acute kidney injury: Status: Resolved (2) UTI (urinary tract infection): Status: Acute (3) Congestive heart failure (CHF): Status: Acute Plan DILLON most likely ATN secondary to hypovolemia from diuresis Stable- given creatinine has plateued for some time now, will get renal ultrasound to rule out obstruction that may have developed since admission CT did have renal injury in February from vanco toxicity without full recovery, may have more permanent reduced renal function at baseline, though anticipate will have some gradual improvement from ATN over time. unlikely AG or IN given lack of persistent proteinuria/hematuria re-check UA and also serum complements - pending recommend lokelma PRN for hyperkalemia recommend continue to hold lasix and ARB, avoid nephrotoxins recommend daily renal function and electrolyte checks recommend regular blood pressure checks, close I&O monitoring continue supportive care Discussed with patient importance of seeing outpatient nephrology for management of CKD, will arrange appt. Discussed with Dr Whittington Time Spent With Patient Time: Total time managing care of this patient today ____ minutes. Progress Note: Quality Stroke Does the patient have a stroke diagnosis?: No
[2024-04-20 08:46] LABS: Anion Gap 17 (12-20); Blood Urea Nitrogen 101 mg/dL (9-16); Calcium 8.7 mg/dL (8.4-10.2); Carbon Dioxide 22 mmol/L (22-29); Chloride 95 mmol/L (96-108); Creatinine Clr Calc Pharmacy 22.6; Estimated Glomerular Filt Rate 18; Glucose Random 112 mg/dL (60-115); Potassium 5.7 mmol/L (3.3-5.1); Sodium 128 mmol/L (135-145)
[2024-04-20] MEDS: 0.9 % Sodium Chloride Flush 3 ML SYRINGE IVFLUSH ×2 (09:48→22:12)
[2024-04-20] MEDS: ondansetron HCL 4 MG/2 ML VIAL IVPUSH (09:51)
[2024-04-20] MEDS: Ferrous Sulfate 324 MG TABLET.DR PO (10:25)
[2024-04-20] MEDS: Aspirin Enteric Coated 81 MG TABLET.DR PO (10:25)
[2024-04-20] MEDS: Gabapentin 100 MG CAPSULE PO ×3 (10:25→22:11)
[2024-04-20] MEDS: Lidocaine 4 % Patch ADH..PATCH 1 PATCH TRANSDERMA (10:25)
[2024-04-20] MEDS: amLODIPine Besylate 10 MG TABLET PO (10:27)
--- NOTE | 2024-04-20 10:42 | HO.PM.IMPN ---
Subjective Subjective Date of Service: 04/20/24 Interval History: seen and examined this AM reports no complaints, no pain currently Physical Exam Vital Signs: Vital Signs: Last Vital Signs Temp 97.9 F 04/20/24 07:38 Pulse 88 04/20/24 07:38 Resp 16 04/20/24 07:38 BP 140/66 H 04/20/24 07:38 Pulse Ox 99 04/20/24 07:38 O2 Del Method Nasal Cannula 04/20/24 07:38 O2 Flow Rate 2 04/20/24 07:38 Oxygen Flow Rate 2 04/07/24 10:37 BMI result Body Mass Index 32.1 Objective Data Active Medications Acetaminophen (Acetaminophen 325 Mg Tablet) 650 mg PO Q6H PRN PRN Reason: Pain, Mild (Pain Scale 1-3), fever or headache Last Admin: 04/19/24 23:13 Dose: 650 mg Documented By: MATTIE Amlodipine Besylate (Amlodipine Besylate 10 Mg Tablet) 10 mg PO DAILY [facility]; Protocol Last Admin: 04/20/24 10:27 Dose: 10 mg Documented By: RAFAEL Aspirin (Aspirin Enteric Coated 81 Mg Tablet.) 81 mg PO DAILY@0900 [facility] Last Admin: 04/20/24 10:25 Dose: 81 mg Documented By: RAFAEL Benzonatate (Benzonatate 100 Mg Capsule) 100 mg PO TID PRN PRN Reason: Cough Calcium Carbonate (Calcium Carbonate 750 Mg Tab.Chew) 750 mg PO Q4H PRN PRN Reason: Heartburn Last Admin: 04/19/24 23:27 Dose: 750 mg Documented By: MATTIE Comments: c/o indigestion Docusate Sodium (Docusate Sodium 100 Mg Capsule) 200 mg PO BEDTIME PRN PRN Reason: Constipation Last Admin: 04/19/24 23:27 Dose: 200 mg Documented By: MATTIE Enoxaparin Sodium (Enoxaparin Sodium 30 Mg/0.3 Ml Syringe) 30 mg SUBCUT Q24H [facility] Last Admin: 04/19/24 17:21 Dose: 30 mg Documented By: SAMMI Ferrous Sulfate (Ferrous Sulfate 324 Mg Tablet.) 324 mg PO Q48H [facility] Last Admin: 04/20/24 10:25 Dose: 324 mg Documented By: RAFAEL Gabapentin (Gabapentin 100 Mg Capsule) 100 mg PO TID [facility] Last Admin: 04/20/24 10:25 Dose: 100 mg Documented By: RAFAEL Insulin Glargine (Insulin Glargine,Hum.Rec.Anlog 100 Unit/Ml 10 Ml Vial) 10 unit SUBCUT BEDTIME [facility] Last Admin: 04/19/24 23:14 Dose: 10 unit Documented By: MATTIE Insulin Human Lispro (Insulin Lispro 100 Unit/Ml 3 Ml Vial) 0 unit SUBCUT QIDACHS [facility]; Protocol Last Admin: 04/20/24 07:47 Dose: Not Given Documented By: RAFAEL Non-Admin Reason: No Insulin Coverage Lactulose (Lactulose 20 Gm/30 Ml Solution) 10 gm PO BID PRN PRN Reason: constipation Last Admin: 04/15/24 01:35 Dose: 10 gm Documented By: NIKKI Levofloxacin (Levofloxacin 750 Mg Tablet) 750 mg PO Q48H [facility] Last Admin: 04/18/24 21:38 Dose: 750 mg Documented By: CHARLI Lidocaine (Lidocaine 4 % Patch Adh..Patch) 1 patch TRANSDERMA DAILY [facility]; Protocol Last Admin: 04/20/24 10:25 Dose: 1 patch Documented By: RAFAEL Magnesium Hydroxide (Milk Of Magnesia 30 Ml Oral.Susp) 30 ml PO DAILY PRN PRN Reason: Constipation Last Admin: 04/16/24 05:30 Dose: 30 ml Documented By: ANTOIC Melatonin (Melatonin 3 Mg Tablet) 6 mg PO BEDTIME PRN PRN Reason: Insomnia Omeprazole (Omeprazole 40 Mg Capsule.) 40 mg PO DAILY@0630 [facility] Last Admin: 04/20/24 05:54 Dose: 40 mg Documented By: MATTIE Ondansetron HCl (Ondansetron Hcl 4 Mg/2 Ml Vial) 4 mg IVPUSH Q8H PRN PRN Reason: Nausea and Vomiting Last Admin: 04/20/24 09:51 Dose: 4 mg Documented By: RAFAEL Sodium Chloride (0.9 % Sodium Chloride Flush 3 Ml Syringe) [facility] Last Admin: 04/20/24 09:48 Dose: 3 ml Documented By: RAFAEL Labs 04/20/24 08:08 12/16/24 08:08 Labs: Laboratory Results - last 24 hr 04/19/24 04/19/24 04/19/24 09:10 11:29 16:09 MCV MCH MCHC RDW Plt Count MPV Absolute Nucleated RBC Nucleated RBC % (auto) Anion Gap Estim Creat Clear Calc Estimated GFR POC Glucose 130 H 134 H Random Glucose Calcium Blood Type A Positive Antibody Screen NEGATIVE Crossmatch See Detail 04/19/24 04/20/24 04/20/24 20:44 07:40 08:08 MCV 86.4 MCH 29.3 MCHC 33.9 RDW 15.1 Plt Count 166 MPV 8.8 L Absolute Nucleated RBC 0.000 Nucleated RBC % (auto) 0.0 Anion Gap 17 Estim Creat Clear Calc 22.6 Estimated GFR 18 POC Glucose 147 H 116 H Random Glucose 112 Calcium 8.7 D Blood Type Antibody Screen Crossmatch Assessment and Plan (1) Bacterial infection due to Serratia: Status: Acute (2) Acute hypoxic respiratory failure: Status: Acute (3) Hyperkalemia: Status: Acute (4) Acute kidney injury superimposed on CKD: Status: Acute Plan 53yo M with COPD on home O2 2L, DM2, HFrEF, HTN who presented with fever, dyspnea, and hypoxia and was found to be septic from bacteremia/UTI DILLON/CKD3 - creatinine worsened likely due to over-diuresis , no hypotension, hold Lasix and continue to hold losartan, follow BMP, s/p ivf ,will push by mouth fluids Cr mild bump up today likey from over diuresis question ATN nephrology on board -- will check renal u/s today acute on chronic anemia h/h dropped below 7 -- s/p 1 unit PRBC on 04/19 no evidence of blood loss but will hold lovenox today likely due to anemia of chronic disease + acute illness acute/chronic hypoxic resp failure due to acute/chronic HFpEF with bilateral pleural effusions - denies shortness of breath, no chest pain, no PND >3.5L neg - R-sided thoracentesis done 04/08 with 1100 mL fluid removed - L-sided thoracentesis done 04/09 with 800 mL fluid removed - echo 02/09 showed EF 45-50%, s/p IV diuresis - Lasix on hold since 04/14 due to rising creatinine - on home O2 2L, follow clinical course and BMP Serratia marcescens UTI/bacteremia - cefepime 04/07-04/10, changed to ceftriaxone 04/10. ID consulted, changed to levofloxacin 04/10- and plan 14 days from 1st negative BCx, which were drawn 04/11, blood culture negative times 48 hours On renally dosed Levaquin end date 04/25. Acute hyperkalemia Lokelma 10 mg, follow BMP, hold losartan. will give 10mg x 1 this AM CBD dilation with calcifications- likely chronic; per GI, consider outpt MRCP, normal LFTs, no abdominal pain. HTN - continue amlodipine; losartan held for worsening renal function, DM2 - stable blood sugars, basal/bolus insulin neuropathy- good pain control gabapentin dose increased to 100 mg tid on 04/12 HLD - statin History of head lice no lice noted on this admission, was treated with 3 doses of permethrin during last hospitalization on February. Constipation resolved, continue prn stool softeners VTE ppx - enoxaparin - on hold due to anemia requiring transfusion; will check FOBT -- if negative, will resume dispo - to short-term rehab patient agreed In my clinical judgment, the patient requires continued inpatient hospitalization for the following reasons: DILLON Quality Stroke Does the patient have a stroke diagnosis?: No VTE Prior VTE?: No VTE Risk Level:: Medical - moderate - high VTE Device Contraindication: Treatment Not Indicated VTE Drug Contraindication: N/A - Med Ordered
[2024-04-20 11:09] LABS: Complement C3 121 mg/dL (83-193)
[2024-04-20] MEDS: Sodium Zirconium Cyclosilicate 10 GM POWD.PACK PO (11:37)
--- NOTE | 2024-04-20 11:56 | MHC.CM.PN ---
Patient is not yet medically cleared for dc (DILLON); STR is the goal and CM will continue to follow.
[2024-04-20 12:00] VITALS: BP 143/61; PULSE 85; RESP 16; TEMP 36.6; O2SAT 98
[2024-04-20 12:21] LABS: Glucose, Whole Blood 114 mg/dL (60-115)
[2024-04-20 12:27] LABS: Appearance Urine Clear; Color Urine Yellow; Glucose Urine UA Negative (Negative); Leukocyte Esterase Urine Trace (Negative); Nitrite Urine Negative (Negative); PH 5.5 (5.0-9.0); UMIC TRIGGER UA YES; Urine Blood Trace (Negative); Urine Ketones Negative (Negative); Urine Protein 100 (2+) mg/dL (Neg-Trace)
[2024-04-20 12:32] LABS: Bacteria Urine None Seen (None Seen); Hyaline Casts Urine 0-2 /LPF (0-2); Squamous Epithelial Cell Urine 0-2 /HPF (0-2); WBC Urine 0-5 /HPF (0-5)
--- NOTE | 2024-04-20 14:02 | MHC.CLN ---
F/U PO INTAKE 75-100% PT WITH INCREASED NUTRITION RISK R/T PRESSURE INJURY DIET RX: 1800DM 2GM NA-APPROPRIATE WOUND NURSE D/C DTI TO [facility] 04/17/24 WILL D/C ENSURE MAX BID TO PROMOTE WOUND HEALING PO INTAKE IS EXCELLENT RD TO FOLLOW WEEKLY
[2024-04-20 14:04] LABS: EOS Counted 0 CELLS; EOS QC POS YES; EOS Stain Quality OK YES; WBC, Counted 5 CELLS
[2024-04-20 16:00] VITALS: BP 143/65; PULSE 94; RESP 20; TEMP 37; O2SAT 96
[2024-04-20 17:10] LABS: Glucose, Whole Blood 144 mg/dL (60-115)
[2024-04-20 18:29] LABS: OBS Int Ctl Valid YES; OBS1 NEGATIVE (NEGATIVE)
[2024-04-20 19:48] VITALS: BP 142/63; PULSE 96; RESP 17; TEMP 36.5; O2SAT 97
[2024-04-20 21:05] LABS: Glucose, Whole Blood 141 mg/dL (60-115)
[2024-04-20] MEDS: Insulin Glargine,Hum.rec.anlog 100 UNIT/ML 10 ML VIAL 10 UNIT SUBCUT (22:11)
[2024-04-20] MEDS: levoFLOXacin 750 MG TABLET PO (22:11)
[2024-04-21] VITALS (7 sets, daily range): BP systolic 133–155; BP diastolic 55–73; PULSE 91–96; RESP 15–20; TEMP 36.3–37.1; O2SAT 94–97
[2024-04-21] MEDS: ondansetron HCL 4 MG/2 ML VIAL IVPUSH ×2 (05:34→13:51)
[2024-04-21] MEDS: Omeprazole 40 MG CAPSULE.DR PO (05:34)
[2024-04-21 06:58] LABS: Anion Gap 14 (12-20); Blood Urea Nitrogen 107 mg/dL (9-16); Calcium 8.6 mg/dL (8.4-10.2); Carbon Dioxide 21 mmol/L (22-29); Chloride 97 mmol/L (96-108); Creatinine Clr Calc Pharmacy 24.1; Estimated Glomerular Filt Rate 19; Glucose Random 113 mg/dL (60-115); Potassium 5.9 mmol/L (3.3-5.1); Sodium 126 mmol/L (135-145)
[2024-04-21 07:08] LABS: Hematocrit 24.7 % (37.0-47.0); Hemoglobin 8.4 g/dl (12.0-16.0); Mean Corpuscular Hemoglobin 29.3 pg (27.0-33.0); Mean Corpuscular Volume 86.1 fL (80.0-98.0); Mean Platelet Volume 8.8 fL (9.4-12.3); Platelet Count 179 X10*3/uL (160-400); Red Blood Count 2.87 X10*6/uL (4.20-5.50); White Blood Count 11.4 X10*3/uL (4.8-10.8)
[2024-04-21 07:27] LABS: Glucose, Whole Blood 100 mg/dL (60-115)
[2024-04-21] MEDS: Aspirin Enteric Coated 81 MG TABLET.DR PO (09:33)
[2024-04-21] MEDS: amLODIPine Besylate 10 MG TABLET PO (09:33)
[2024-04-21] MEDS: Sodium Zirconium Cyclosilicate 10 GM POWD.PACK PO (09:33)
[2024-04-21] MEDS: Gabapentin 100 MG CAPSULE PO ×2 (09:33→23:07)
[2024-04-21] MEDS: 0.9 % Sodium Chloride Flush 3 ML SYRINGE IVFLUSH ×2 (09:34→23:07)
[2024-04-21] MEDS: Lidocaine 4 % Patch ADH..PATCH 1 PATCH TRANSDERMA (09:34)
--- NOTE | 2024-04-21 09:44 | P.PNNP_ITS ---
Subjective Subjective Date of Service: 04/21/24 Interval history: Pt is a 53 y/o primarily Persian-speaking female with a PMH of HFpEF, DMII (with lower extremity neuropathy), COPD (on home O2 2L NC), postural hypotension. presented 04/07 with dyspnea, fever, hypoxia. found to have b/l pleural effusions, right thoracentesis drained 1100mL fluid 04/08, left thoracentesis on 04/09 drained 800mL fluid. also found to have bacteremia and UTI. Nephrology consulted for DILLON. lasix 40mg PO daily for treatment of acute on chronic HF with effusions on hold due to rise in creatinine on 04/14, which has persisted. creatinine 1.71 on admission (04/07/24), 1.65 on 04/11, next creatinine 04/14 was 2.13, 04/15 was 2.36, 04/16 2.38, 04/18 2.84, 04/19 2.67, 04/20 2.77, 04/21 is 2.61 potassium remains elevated, receiving PRN lokelma creatinine prior to admission from last hospitalization in February on discharge was 1.72 on 02/13/24 (DILLON from vanco toxicity) but stable (prior to hospitalization was 1.15). CT of abd/pelvis 04/07 showed no hydronephrosis/calculi. renal US 04/20 no hydronephrosis present she reports she is urinating comfortably, denies burning, difficulty emptying bladder, blood in urine, flank pain. she reports breathing remains the same, no changes, remains on NC. States feels tired today. She denies abdominal pain, chest pain. States she continues to have chronic lower extremity pain (neuropathy). Physical Exam 2 Vital Signs: Vital Signs: Last Vital Signs Temp 97.4 F 04/21/24 08:00 Pulse 94 04/21/24 08:00 Resp 20 04/21/24 08:00 BP 149/68 H 04/21/24 08:00 Pulse Ox 96 04/21/24 08:00 O2 Del Method Nasal Cannula 04/21/24 08:00 O2 Flow Rate 2 04/21/24 08:00 Oxygen Flow Rate 2 04/07/24 10:37 BMI result Body Mass Index 32.1 Const: General: no acute distress, alert and awake Resp: Effort & Inspection: normal respiratory effort and able to speak in complete sentences Auscultation: diminished lung sounds (bilateral lower lobes diminished. ) bilateral Cardio: Rate: regular rate Rhythm: regular rhythm Heart sounds: S1 normal heart sound present and S2 normal heart sound present GI: Palpation (GI): Soft to palpation and nontender : General: Yes no CVA tenderness Back/Spine/Pelvis: Back: no CVA tenderness Skin: Lesions: no lesions Rashes: no rashes Extrem: General: No edema Objective Data Labs 04/21/24 06:14 04/21/24 06:14 Labs: Laboratory Results - last 24 hr 04/17/24 04/20/24 04/20/24 06:34 12:00 12:10 WBC RBC Hgb Hct MCV MCH MCHC RDW Plt Count MPV Absolute Nucleated RBC Nucleated RBC % (auto) Sodium Potassium Chloride Carbon Dioxide Anion Gap BUN Creatinine Estim Creat Clear Calc Estimated GFR POC Glucose 114 Random Glucose Calcium Urine Color Yellow Urine Appearance Clear Urine pH 5.5 Ur Specific [place] 1.010 Urine Protein 100 (2+) H Urine Glucose (UA) Negative Urine Ketones Negative Urine Blood Trace H Urine Nitrite Negative Ur Leukocyte Esterase Trace H Urine RBC 3-5 H Urine WBC 0-5 Ur Squamous Epith Cells 0-2 Urine Bacteria None Seen Hyaline Casts 0-2 Urine Eosinophils % 0.0 Stool Occult Blood Complement C3 121 Complement C4 34 04/20/24 04/20/24 04/20/24 17:06 18:15 20:18 WBC RBC Hgb Hct MCV MCH MCHC RDW Plt Count MPV Absolute Nucleated RBC Nucleated RBC % (auto) Sodium Potassium Chloride Carbon Dioxide Anion Gap BUN Creatinine Estim Creat Clear Calc Estimated GFR POC Glucose 144 H 141 H Random Glucose Calcium Urine Color Urine Appearance Urine pH Ur Specific [place] Urine Protein Urine Glucose (UA) Urine Ketones Urine Blood Urine Nitrite Ur Leukocyte Esterase Urine RBC Urine WBC Ur Squamous Epith Cells Urine Bacteria Hyaline Casts Urine Eosinophils % Stool Occult Blood NEGATIVE Complement C3 Complement C4 04/21/24 04/21/24 06:14 07:19 WBC 11.4 H RBC 2.87 L Hgb 8.4 L Hct 24.7 L MCV 86.1 MCH 29.3 MCHC 34.0 RDW 15.0 Plt Count 179 MPV 8.8 L Absolute Nucleated RBC 0.000 Nucleated RBC % (auto) 0.0 Sodium 126 L Potassium 5.9 H Chloride 97 Carbon Dioxide 21 L Anion Gap 14 BUN 107 H Creatinine 2.61 H Estim Creat Clear Calc 24.1 Estimated GFR 19 POC Glucose 100 Random Glucose 113 Calcium 8.6 Urine Color Urine Appearance Urine pH Ur Specific [place] Urine Protein Urine Glucose (UA) Urine Ketones Urine Blood Urine Nitrite Ur Leukocyte Esterase Urine RBC Urine WBC Ur Squamous Epith Cells Urine Bacteria Hyaline Casts Urine Eosinophils % Stool Occult Blood Complement C3 Complement C4 Microbiology Microbiology Results: Microbiology 04/11/24 08:10 Blood - Venous Blood Culture - Final No growth after 5 days. 04/11/24 08:10 Blood - Venous Blood Culture - Final No growth after 5 days. 04/07/24 12:43 Blood - Venous Blood Culture - Final Serratia marcescens 04/07/24 12:43 Blood - Venous Blood Culture - Final Serratia marcescens 04/07/24 Unknown Urine clean catch - Clean Catch Midstream Urine Culture - Final Serratia marcescens Procedures Date of Service Date of Service: 04/21/24 Assessment & Plan Assessment and plan (1) Acute kidney injury: Status: Resolved (2) UTI (urinary tract infection): Status: Acute (3) Congestive heart failure (CHF): Status: Acute Plan DILLON most likely ATN secondary to hypovolemia from diuresis Stable- given creatinine has plateued for some time now, no obstruction on renal ultrasound 04/20 did have renal injury in February from vanco toxicity without full recovery, may have more permanent reduced renal function at baseline, though anticipate will have some gradual improvement from ATN over time. re-check UA shows some blood and protein in urine no monoclonal antibodies present in September 2023 serum complements normal will check ANCA vasculitides and urine protein/creatinine ratio given ongoing hyperkalemia, will check cortisol levels recommend lokelma PRN for hyperkalemia recommend continue to hold lasix and ARB, avoid nephrotoxins - if patient develops dyspnea, may consider re-starting diuretic recommend daily renal function and electrolyte checks recommend regular blood pressure checks, close I&O monitoring continue supportive care Discussed with patient importance of seeing outpatient nephrology for management of CKD, will arrange appt. Discussed with Dr Whittington Time Spent With Patient Time: Total time managing care of this patient today ____ minutes. Progress Note: Quality Stroke Does the patient have a stroke diagnosis?: No
--- NOTE | 2024-04-21 11:09 | HO.PM.IMPN ---
Subjective Subjective Date of Service: 04/21/24 Interval History: seen and examined this AM reports no complaints, no pain currently Physical Exam Vital Signs: Vital Signs: Last Vital Signs Temp 97.4 F 04/21/24 08:00 Pulse 94 04/21/24 08:00 Resp 20 04/21/24 08:00 BP 149/68 H 04/21/24 08:00 Pulse Ox 96 04/21/24 08:00 O2 Del Method Nasal Cannula 04/21/24 08:00 O2 Flow Rate 2 04/21/24 08:00 Oxygen Flow Rate 2 04/07/24 10:37 BMI result Body Mass Index 32.1 Appearing in no acute distress lung sounds are clear to auscultation heart regular rate rhythm, clear S1, S2 positive bowel sounds, abdomen is soft, nontender neuro patient is alert x3, no focal deficits Objective Data Active Medications Acetaminophen (Acetaminophen 325 Mg Tablet) 650 mg PO Q6H PRN PRN Reason: Pain, Mild (Pain Scale 1-3), fever or headache Last Admin: 04/19/24 23:13 Dose: 650 mg Documented By: MATTIE Amlodipine Besylate (Amlodipine Besylate 10 Mg Tablet) 10 mg PO DAILY [facility]; Protocol Last Admin: 04/21/24 09:33 Dose: 10 mg Documented By: CLARE Aspirin (Aspirin Enteric Coated 81 Mg Tablet.) 81 mg PO DAILY@0900 [facility] Last Admin: 04/21/24 09:33 Dose: 81 mg Documented By: CLARE Benzonatate (Benzonatate 100 Mg Capsule) 100 mg PO TID PRN PRN Reason: Cough Calcium Carbonate (Calcium Carbonate 750 Mg Tab.Chew) 750 mg PO Q4H PRN PRN Reason: Heartburn Last Admin: 04/19/24 23:27 Dose: 750 mg Documented By: MATTIE Comments: c/o indigestion Docusate Sodium (Docusate Sodium 100 Mg Capsule) 200 mg PO BEDTIME PRN PRN Reason: Constipation Last Admin: 04/19/24 23:27 Dose: 200 mg Documented By: MATTIE Enoxaparin Sodium (Enoxaparin Sodium 30 Mg/0.3 Ml Syringe) 30 mg SUBCUT Q24H [facility] Last Admin: 04/19/24 17:21 Dose: 30 mg Documented By: SAMMI Ferrous Sulfate (Ferrous Sulfate 324 Mg Tablet.) 324 mg PO Q48H [facility] Last Admin: 04/20/24 10:25 Dose: 324 mg Documented By: RAFAEL Gabapentin (Gabapentin 100 Mg Capsule) 100 mg PO TID [facility] Last Admin: 04/21/24 09:33 Dose: 100 mg Documented By: CLARE Insulin Glargine (Insulin Glargine,Hum.Rec.Anlog 100 Unit/Ml 10 Ml Vial) 10 unit SUBCUT BEDTIME [facility] Last Admin: 04/20/24 22:11 Dose: 10 unit Documented By: MATTIE Insulin Human Lispro (Insulin Lispro 100 Unit/Ml 3 Ml Vial) 0 unit SUBCUT QIDACHS [facility]; Protocol Last Admin: 04/21/24 07:47 Dose: Not Given Documented By: CLARE Non-Admin Reason: No Insulin Coverage Lactulose (Lactulose 20 Gm/30 Ml Solution) 10 gm PO BID PRN PRN Reason: constipation Last Admin: 04/15/24 01:35 Dose: 10 gm Documented By: NIKKI Levofloxacin (Levofloxacin 750 Mg Tablet) 750 mg PO Q48H [facility] Last Admin: 04/20/24 22:11 Dose: 750 mg Documented By: MATTIE Lidocaine (Lidocaine 4 % Patch Adh..Patch) 1 patch TRANSDERMA DAILY [facility]; Protocol Last Admin: 04/21/24 09:34 Dose: 1 patch Documented By: CLARE Magnesium Hydroxide (Milk Of Magnesia 30 Ml Oral.Susp) 30 ml PO DAILY PRN PRN Reason: Constipation Last Admin: 04/16/24 05:30 Dose: 30 ml Documented By: ANTOIC Melatonin (Melatonin 3 Mg Tablet) 6 mg PO BEDTIME PRN PRN Reason: Insomnia Omeprazole (Omeprazole 40 Mg Capsule.) 40 mg PO DAILY@0630 [facility] Last Admin: 04/21/24 05:34 Dose: 40 mg Documented By: MATTIE Ondansetron HCl (Ondansetron Hcl 4 Mg/2 Ml Vial) 4 mg IVPUSH Q8H PRN PRN Reason: Nausea and Vomiting Last Admin: 04/21/24 05:34 Dose: 4 mg Documented By: MATTIE Comments: requested for nausea Sodium Chloride (0.9 % Sodium Chloride Flush 3 Ml Syringe) 3 ml IVFLUSH QSHIFT [facility] Last Admin: 04/21/24 09:34 Dose: 3 ml Documented By: CLARE Labs 04/21/24 06:14 04/21/24 06:14 Labs: Laboratory Results - last 24 hr 04/17/24 04/20/24 04/20/24 06:34 12:00 12:10 MCV MCH MCHC RDW Plt Count MPV Absolute Nucleated RBC Nucleated RBC % (auto) Anion Gap Estim Creat Clear Calc Estimated GFR POC Glucose 114 Random Glucose Calcium Urine Color Yellow Urine Appearance Clear Urine pH 5.5 Ur Specific [place] 1.010 Urine Protein 100 (2+) H Urine Glucose (UA) Negative Urine Ketones Negative Urine Blood Trace H Urine Nitrite Negative Ur Leukocyte Esterase Trace H Urine RBC 3-5 H Urine WBC 0-5 Ur Squamous Epith Cells 0-2 Urine Bacteria None Seen Hyaline Casts 0-2 Urine Eosinophils % 0.0 Stool Occult Blood Complement C3 121 Complement C4 34 04/20/24 04/20/24 04/20/24 17:06 18:15 20:18 MCV MCH MCHC RDW Plt Count MPV Absolute Nucleated RBC Nucleated RBC % (auto) Anion Gap Estim Creat Clear Calc Estimated GFR POC Glucose 144 H 141 H Random Glucose Calcium Urine Color Urine Appearance Urine pH Ur Specific [place] Urine Protein Urine Glucose (UA) Urine Ketones Urine Blood Urine Nitrite Ur Leukocyte Esterase Urine RBC Urine WBC Ur Squamous Epith Cells Urine Bacteria Hyaline Casts Urine Eosinophils % Stool Occult Blood NEGATIVE Complement C3 Complement C4 04/21/24 04/21/24 06:14 07:19 MCV 86.1 MCH 29.3 MCHC 34.0 RDW 15.0 Plt Count 179 MPV 8.8 L Absolute Nucleated RBC 0.000 Nucleated RBC % (auto) 0.0 Anion Gap 14 Estim Creat Clear Calc 24.1 Estimated GFR 19 POC Glucose 100 Random Glucose 113 Calcium 8.6 Urine Color Urine Appearance Urine pH Ur Specific [place] Urine Protein Urine Glucose (UA) Urine Ketones Urine Blood Urine Nitrite Ur Leukocyte Esterase Urine RBC Urine WBC Ur Squamous Epith Cells Urine Bacteria Hyaline Casts Urine Eosinophils % Stool Occult Blood Complement C3 Complement C4 Assessment and Plan (1) Bacterial infection due to Serratia: Status: Acute (2) Acute hypoxic respiratory failure: Status: Acute (3) Hyperkalemia: Status: Acute (4) Acute kidney injury superimposed on CKD: Status: Acute Plan 53yo M with COPD on home O2 2L, DM2, HFrEF, HTN who presented with fever, dyspnea, and hypoxia and was found to be septic from bacteremia/UTI DILLON/CKD3 creatinine worsened likely due to over-diuresis , no hypotension hold Lasix and continue to hold losartan follow BMP s/p ivf question ATN nephrology on board>renal u/s no obstruction check ANCA, cortisol level, Acute hyperkalemia Lokelma 10 mg follow BMP hold losartan. Acute on chronic anemia h/h dropped below 7 , s/p 1 unit PRBC on 04/19 no evidence of blood loss but lovenox held likely due to anemia of chronic disease + acute illness Acute/chronic hypoxic resp failure due to acute/chronic HFpEF with bilateral pleural effusions 3.5L neg R-sided thoracentesis done 04/08 with 1100 mL fluid removed L-sided thoracentesis done 04/09 with 800 mL fluid removed echo 02/09 showed EF 45-50%, s/p IV diuresis - Lasix on hold since 04/14 due to rising creatinine on home O2 2L Serratia marcescens UTI/bacteremia cefepime 04/07-04/10, changed to ceftriaxone 04/10. ID consulted>changed to levofloxacin 04/10- and plan 14 days from 1st negative BCx On renally dosed Levaquin end date 04/25. CBD dilation with calcifications likely chronic; per GI consider outpt MRCP normal LFTs no abdominal pain. HTN continue amlodipine osartan held for worsening renal function, DM2 stable blood sugars basal/bolus insulin Diabetic neuropathy good pain control gabapentin dose increased to 100 mg tid on 04/12 HLD statin History of head lice no lice noted on this admission was treated with 3 doses of permethrin during last hospitalization on February. Constipation resolved continue prn stool softeners VTE ppx enoxaparin - on hold due to anemia requiring transfusion dispo to short-term rehab patient agreed In my clinical judgment, the patient requires continued inpatient hospitalization for the following reasons: DILLON Quality Stroke Does the patient have a stroke diagnosis?: No VTE Prior VTE?: No VTE Risk Level:: Medical - moderate - high VTE Device Contraindication: Treatment Not Indicated VTE Drug Contraindication: N/A - Med Ordered
[2024-04-21 11:17] LABS: Glucose, Whole Blood 107 mg/dL (60-115)
[2024-04-21 13:41] LABS: Total Protein Urine Random 146 mg/dL (<12)
[2024-04-21 14:08] LABS: Creatinine Urine 25.39 mg/dL
[2024-04-21 16:46] LABS: Glucose, Whole Blood 115 mg/dL (60-115)
[2024-04-21 20:50] LABS: Glucose, Whole Blood 114 mg/dL (60-115)
[2024-04-21] MEDS: Docusate Sodium 100 MG CAPSULE 200 MG PO (23:07)
[2024-04-21] MEDS: Insulin Glargine,Hum.rec.anlog 100 UNIT/ML 10 ML VIAL 10 UNIT SUBCUT (23:07)
[2024-04-22 03:12] VITALS: BP 141/66; PULSE 88; RESP 18; TEMP 37.1; O2SAT 98
[2024-04-22] MEDS: Omeprazole 40 MG CAPSULE.DR PO (05:06)
[2024-04-22 06:50] LABS: Anion Gap 13 (12-20); Blood Urea Nitrogen 119 mg/dL (9-16); Calcium 8.9 mg/dL (8.4-10.2); Carbon Dioxide 22 mmol/L (22-29); Chloride 99 mmol/L (96-108); Creatinine Clr Calc Pharmacy 22.9; Estimated Glomerular Filt Rate 18; Glucose Random 102 mg/dL (60-115); Potassium 5.2 mmol/L (3.3-5.1); Sodium 129 mmol/L (135-145)
[2024-04-22 07:13] VITALS: BP 129/62; PULSE 91; RESP 18; TEMP 37.1; O2SAT 95
[2024-04-22 07:13] LABS: Cortisol Random 11.2 ug/dL
[2024-04-22 07:24] LABS: Glucose, Whole Blood 122 mg/dL (60-115)
--- NOTE | 2024-04-22 09:12 | P.PNNP_ITS ---
Subjective Subjective Date of Service: 04/22/24 Interval history: Pt is a 53 y/o primarily Syriac-speaking female with a PMH of HFpEF, DMII (with lower extremity neuropathy), COPD (on home O2 2L NC), postural hypotension. presented 04/07 with dyspnea, fever, hypoxia. found to have b/l pleural effusions, right thoracentesis drained 1100mL fluid 04/08, left thoracentesis on 04/09 drained 800mL fluid. also found to have bacteremia and UTI. Nephrology consulted for DILLON. lasix 40mg PO daily for treatment of acute on chronic HF with effusions on hold due to rise in creatinine on 04/14, which has persisted. creatinine 1.71 on admission (04/07/24), 1.65 on 04/11, next creatinine 04/14 was 2.13, 04/15 was 2.36, 04/16 2.38, 04/18 2.84, 04/19 2.67, 04/20 2.77, 04/21 2.61, 04/22 is 2.74 potassium remains elevated, receiving PRN lokelma creatinine prior to admission from last hospitalization in February on discharge was 1.72 on 02/13/24 (DILLON from vanco toxicity) but stable (prior to hospitalization was 1.15). CT of abd/pelvis 04/07 showed no hydronephrosis/calculi. renal US 04/20 no hydronephrosis present she reports she is urinating comfortably, denies burning, difficulty emptying bladder, blood in urine, flank pain. she reports breathing remains the same, no changes, remains on NC. States feels tired today. She denies abdominal pain, chest pain. States she continues to have chronic lower extremity pain (neuropathy). Physical Exam 2 Vital Signs: Vital Signs: Last Vital Signs Temp 98.7 F 04/22/24 07:13 Pulse 91 04/22/24 07:13 Resp 18 04/22/24 07:13 BP 129/62 04/22/24 07:13 Pulse Ox 95 04/22/24 07:13 O2 Del Method Nasal Cannula 04/22/24 07:13 O2 Flow Rate 2 04/22/24 07:13 Oxygen Flow Rate 2 04/07/24 10:37 BMI result Body Mass Index 32.1 Const: General: no acute distress, alert and awake Resp: Effort & Inspection: normal respiratory effort and able to speak in complete sentences Auscultation: diminished lung sounds (bilateral lower lobes diminished. ) bilateral Cardio: Rate: regular rate Rhythm: regular rhythm Heart sounds: S1 normal heart sound present and S2 normal heart sound present GI: Palpation (GI): Soft to palpation and nontender : General: Yes no CVA tenderness Back/Spine/Pelvis: Back: no CVA tenderness Skin: Lesions: no lesions Rashes: no rashes Extrem: General: No edema Objective Data Labs 04/21/24 06:14 04/22/24 06:15 Labs: Laboratory Results - last 24 hr 04/21/24 04/21/24 04/21/24 06:29 11:10 12:29 Sodium Potassium Chloride Carbon Dioxide Anion Gap BUN Creatinine Estim Creat Clear Calc Estimated GFR POC Glucose 107 Random Glucose Calcium Random Cortisol U Random Total Protein 146 H Urine Creatinine 25.39 04/21/24 04/21/24 04/22/24 16:41 20:45 06:15 Sodium 129 L Potassium 5.2 H Chloride 99 Carbon Dioxide 22 Anion Gap 13 BUN 119 H Creatinine 2.74 H Estim Creat Clear Calc 22.9 Estimated GFR 18 POC Glucose 115 114 Random Glucose 102 Calcium 8.9 Random Cortisol 11.2 U Random Total Protein Urine Creatinine 04/22/24 07:20 Sodium Potassium Chloride Carbon Dioxide Anion Gap BUN Creatinine Estim Creat Clear Calc Estimated GFR POC Glucose 122 H Random Glucose Calcium Random Cortisol U Random Total Protein Urine Creatinine Microbiology Microbiology Results: Microbiology 04/11/24 08:10 Blood - Venous Blood Culture - Final No growth after 5 days. 04/11/24 08:10 Blood - Venous Blood Culture - Final No growth after 5 days. 04/07/24 12:43 Blood - Venous Blood Culture - Final Serratia marcescens 04/07/24 12:43 Blood - Venous Blood Culture - Final Serratia marcescens 04/07/24 Unknown Urine clean catch - Clean Catch Midstream Urine Culture - Final Serratia marcescens Procedures Date of Service Date of Service: 04/22/24 Assessment & Plan Assessment and plan (1) Acute kidney injury: Status: Resolved (2) UTI (urinary tract infection): Status: Acute (3) Congestive heart failure (CHF): Status: Acute Plan DILLON most likely ATN secondary to hypovolemia from diuresis Stable- given creatinine has plateaued for some time now, no obstruction on renal ultrasound 04/20 did have renal injury in February from vanco toxicity without full recovery, may have more permanent reduced renal function at baseline, though anticipate will have some gradual improvement from ATN over time. no monoclonal antibodies present in September 2023 serum complements normal ANCA vasculitides pending and urine protein/creatinine ratio elevated- 5.84 ongoing hyperkalemia- cortisol level normal. recommend lokelma PRN for hyperkalemia Given rise in BUN with fairly stable creatinine, and drop in H&H, concern for GIB, would recommend working up recommend continue to hold lasix and ARB, avoid nephrotoxins - if patient develops dyspnea, may consider re-starting diuretic recommend daily renal function and electrolyte checks recommend regular blood pressure checks, close I&O monitoring continue supportive care Discussed with patient importance of seeing outpatient nephrology for management of CKD, will arrange appt. Discussed with Dr Mills Time Spent With Patient Time: Total time managing care of this patient today ____ minutes. Progress Note: Quality Stroke Does the patient have a stroke diagnosis?: No
[2024-04-22] MEDS: Ferrous Sulfate 324 MG TABLET.DR PO (09:39)
[2024-04-22] MEDS: amLODIPine Besylate 10 MG TABLET PO (09:39)
[2024-04-22] MEDS: Aspirin Enteric Coated 81 MG TABLET.DR PO (09:39)
[2024-04-22] MEDS: Gabapentin 100 MG CAPSULE PO ×2 (09:39→17:54)
[2024-04-22] MEDS: 0.9 % Sodium Chloride Flush 3 ML SYRINGE IVFLUSH ×2 (09:40→19:16)
[2024-04-22] MEDS: Lidocaine 4 % Patch ADH..PATCH 1 PATCH TRANSDERMA (09:47)
[2024-04-22 11:05] VITALS: BP 136/68; PULSE 93; RESP 18; TEMP 36.7; O2SAT 93
[2024-04-22 11:12] LABS: Glucose, Whole Blood 108 mg/dL (60-115)
--- NOTE | 2024-04-22 11:16 | P.PNIM_ITS ---
Subjective Subjective Date of Service: 04/22/24 Interval History: seen and examined this AM reports no complaints, no pain currently Physical Exam 2 Vital Signs: Vital Signs: Last Vital Signs Temp 98.1 F 04/22/24 11:05 Pulse 93 04/22/24 11:05 Resp 18 04/22/24 11:05 BP 136/68 04/22/24 11:05 Pulse Ox 93 04/22/24 11:05 O2 Del Method Nasal Cannula 04/22/24 11:05 O2 Flow Rate 2 04/22/24 11:05 Oxygen Flow Rate 2 04/07/24 10:37 BMI result Body Mass Index 32.1 Appearing in no acute distress lung sounds are clear to auscultation heart regular rate rhythm, clear S1, S2 positive bowel sounds, abdomen is soft, nontender neuro patient is alert x3, no focal deficits Objective Data Active Medications Acetaminophen (Acetaminophen 325 Mg Tablet) 650 mg PO Q6H PRN PRN Reason: Pain, Mild (Pain Scale 1-3), fever or headache Last Admin: 04/19/24 23:13 Dose: 650 mg Documented By: MATTIE Amlodipine Besylate (Amlodipine Besylate 10 Mg Tablet) 10 mg PO DAILY [facility]; Protocol Last Admin: 04/22/24 09:39 Dose: 10 mg Documented By: TARUN Aspirin (Aspirin Enteric Coated 81 Mg Tablet.) 81 mg PO DAILY@0900 [facility] Last Admin: 04/22/24 09:39 Dose: 81 mg Documented By: TARUN Benzonatate (Benzonatate 100 Mg Capsule) 100 mg PO TID PRN PRN Reason: Cough Calcium Carbonate (Calcium Carbonate 750 Mg Tab.Chew) 750 mg PO Q4H PRN PRN Reason: Heartburn Last Admin: 04/19/24 23:27 Dose: 750 mg Documented By: MATTIE Comments: c/o indigestion Docusate Sodium (Docusate Sodium 100 Mg Capsule) 200 mg PO BEDTIME PRN PRN Reason: Constipation Last Admin: 04/21/24 23:07 Dose: 200 mg Documented By: MATTIE Enoxaparin Sodium (Enoxaparin Sodium 30 Mg/0.3 Ml Syringe) 30 mg SUBCUT Q24H [facility] Last Admin: 04/19/24 17:21 Dose: 30 mg Documented By: SAMMI Ferrous Sulfate (Ferrous Sulfate 324 Mg Tablet.) 324 mg PO Q48H [facility] Last Admin: 04/22/24 09:39 Dose: 324 mg Documented By: TARUN Gabapentin (Gabapentin 100 Mg Capsule) 100 mg PO TID [facility] Last Admin: 04/22/24 09:39 Dose: 100 mg Documented By: TARUN Insulin Glargine (Insulin Glargine,Hum.Rec.Anlog 100 Unit/Ml 10 Ml Vial) 10 unit SUBCUT BEDTIME [facility] Last Admin: 04/21/24 23:07 Dose: 10 unit Documented By: MATTIE Insulin Human Lispro (Insulin Lispro 100 Unit/Ml 3 Ml Vial) 0 unit SUBCUT QIDACHS [facility]; Protocol Last Admin: 04/22/24 07:31 Dose: Not Given Documented By: TARUN Non-Admin Reason: No Insulin Coverage Lactulose (Lactulose 20 Gm/30 Ml Solution) 10 gm PO BID PRN PRN Reason: constipation Last Admin: 04/15/24 01:35 Dose: 10 gm Documented By: NIKKI Levofloxacin (Levofloxacin 750 Mg Tablet) 750 mg PO Q48H [facility] Last Admin: 04/20/24 22:11 Dose: 750 mg Documented By: MATTIE Lidocaine (Lidocaine 4 % Patch Adh..Patch) 1 patch TRANSDERMA DAILY [facility]; Protocol Last Admin: 04/22/24 09:47 Dose: 1 patch Documented By: TARUN Magnesium Hydroxide (Milk Of Magnesia 30 Ml Oral.Susp) 30 ml PO DAILY PRN PRN Reason: Constipation Last Admin: 04/16/24 05:30 Dose: 30 ml Documented By: ANTOIC Melatonin (Melatonin 3 Mg Tablet) 6 mg PO BEDTIME PRN PRN Reason: Insomnia Omeprazole (Omeprazole 40 Mg Capsule.) 40 mg PO DAILY@0630 [facility] Last Admin: 04/22/24 05:06 Dose: 40 mg Documented By: MATTIE Ondansetron HCl (Ondansetron Hcl 4 Mg/2 Ml Vial) 4 mg IVPUSH Q8H PRN PRN Reason: Nausea and Vomiting Last Admin: 04/21/24 13:51 Dose: 4 mg Documented By: CLARE Sodium Chloride (0.9 % Sodium Chloride Flush 3 Ml Syringe) 3 ml IVFLUSH QSHIFT [facility] Last Admin: 04/22/24 09:40 Dose: 3 ml Documented By: TARNU Labs 04/21/24 06:14 04/22/24 06:15 Labs: Laboratory Results - last 24 hr 04/21/24 04/21/24 04/21/24 06:29 11:10 12:29 Anion Gap Estim Creat Clear Calc Estimated GFR POC Glucose 107 Random Glucose Calcium Random Cortisol U Random Total Protein 146 H Urine Creatinine 25.39 04/21/24 04/21/24 04/22/24 16:41 20:45 06:15 Anion Gap 13 Estim Creat Clear Calc 22.9 Estimated GFR 18 POC Glucose 115 114 Random Glucose 102 Calcium 8.9 Random Cortisol 11.2 U Random Total Protein Urine Creatinine 04/22/24 04/22/24 07:20 11:09 Anion Gap Estim Creat Clear Calc Estimated GFR POC Glucose 122 H 108 Random Glucose Calcium Random Cortisol U Random Total Protein Urine Creatinine Assessment and Plan (1) Bacterial infection due to Serratia: Status: Acute (2) Acute hypoxic respiratory failure: Status: Acute (3) Hyperkalemia: Status: Acute (4) Acute kidney injury superimposed on CKD: Status: Acute Plan 53yo M with COPD on home O2 2L, DM2, HFrEF, HTN who presented with fever, dyspnea, and hypoxia and was found to be septic from bacteremia/UTI DILLON/CKD3 creatinine worsened likely due to over-diuresis , no hypotension hold Lasix and continue to hold losartan follow BMP s/p ivf question ATN nephrology on board>renal u/s no obstruction , likely ATN check ANCA pending, cortisol level normal Acute hyperkalemia. Trending down Lokelma as needed follow BMP hold losartan Acute on chronic anemia h/h dropped below 7 , s/p 1 unit PRBC on 04/19 no evidence of blood loss but lovenox held likely due to anemia of chronic disease + acute illness stable HH Acute/chronic hypoxic resp failure due to acute/chronic HFpEF with bilateral pleural effusions. Resolved 3.5L neg R-sided thoracentesis done 04/08 with 1100 mL fluid removed L-sided thoracentesis done 04/09 with 800 mL fluid removed echo 02/09 showed EF 45-50%, s/p IV diuresis - Lasix on hold since 12/10 due to rising creatinine on home O2 2L Serratia marcescens UTI/bacteremia cefepime 12/3-04/10, changed to ceftriaxone 04/10. ID consulted>changed to levofloxacin 04/10- and plan 14 days from 1st negative BCx On renally dosed Levaquin end date 04/25. CBD dilation with calcifications likely chronic; per GI consider outpt MRCP normal LFTs no abdominal pain. HTN continue amlodipine osartan held for worsening renal function, DM2 stable blood sugars basal/bolus insulin Diabetic neuropathy good pain control gabapentin dose increased to 100 mg tid on 04/12 HLD statin History of head lice no lice noted on this admission was treated with 3 doses of permethrin during last hospitalization on February. Constipation resolved continue prn stool softeners VTE ppx enoxaparin - on hold due to anemia requiring transfusion dispo to short-term rehab patient agreed In my clinical judgment, the patient requires continued inpatient hospitalization for the following reasons: DILLON Quality Stroke Does the patient have a stroke diagnosis?: No VTE Prior VTE?: No VTE Risk Level:: Medical - moderate - high VTE Device Contraindication: Treatment Not Indicated VTE Drug Contraindication: N/A - Med Ordered
[2024-04-22 15:18] VITALS: BP 137/66; PULSE 93; RESP 20; TEMP 36.8; O2SAT 96
--- NOTE | 2024-04-22 15:33 | MHC.CM.PN ---
Per hospitalist, pt is now medically cleared for discharge to [facility]. Per [facility], they will need an MDS and Elder services approval prior to being able to accept pt. MDS completed and faxed to [facility]. Hospitalist aware.
[2024-04-22 16:22] LABS: Glucose, Whole Blood 141 mg/dL (60-115)
[2024-04-22] MEDS: ondansetron HCL 4 MG/2 ML VIAL IVPUSH (19:16)
[2024-04-22 19:20] VITALS: BP 135/63; PULSE 96; RESP 20; TEMP 36.2; O2SAT 92
[2024-04-22 21:01] LABS: Glucose, Whole Blood 177 mg/dL (60-115)
[2024-04-22] MEDS: Insulin Glargine,Hum.rec.anlog 100 UNIT/ML 10 ML VIAL 10 UNIT SUBCUT (22:22)
[2024-04-23] VITALS (10 sets, daily range): BP systolic 129–146; BP diastolic 60–69; PULSE 84–99; RESP 18–24; TEMP 36.6–37; O2SAT 84–95
--- NOTE | 2024-04-23 03:28 | ECG_ITS ---
Test Reason : chest pain Blood Pressure : / mmHG Vent. Rate : 099 BPM Atrial Rate : 099 BPM P-R Int : 158 ms QRS Dur : 074 ms QT Int : 354 ms P-R-T Axes : 065 017 056 degrees QTc Int : 454 ms Normal sinus rhythm Normal ECG When compared with ECG of 07-APR-2024 13:36, Nonspecific T wave abnormality no longer evident in Inferior leads Referred By: Jade Maldonado Electronically Signed By:SHANTI AVENDANO
[2024-04-23] MEDS: Omeprazole 40 MG CAPSULE.DR PO (06:17)
[2024-04-23 07:16] LABS: Hematocrit 24.1 % (37.0-47.0); Hemoglobin 8.3 g/dl (12.0-16.0); Mean Corpuscular HGB Conc 34.4 g/dl (31.0-35.0); Mean Corpuscular Hemoglobin 29.4 pg (27.0-33.0); Mean Corpuscular Volume 85.5 fL (80.0-98.0); Mean Platelet Volume 8.8 fL (9.4-12.3); Platelet Count 175 X10*3/uL (160-400); Red Blood Count 2.82 X10*6/uL (4.20-5.50); Red Cell Distribution Width 15.6 % (11.0-16.0); White Blood Count 11.1 X10*3/uL (4.8-10.8)
[2024-04-23 07:24] LABS: Anion Gap 16 (12-20); Blood Urea Nitrogen 116 mg/dL (9-16); Calcium 8.9 mg/dL (8.4-10.2); Carbon Dioxide 21 mmol/L (22-29); Chloride 101 mmol/L (96-108); Creatinine Clr Calc Pharmacy 21.9; Estimated Glomerular Filt Rate 17; Glucose Random 126 mg/dL (60-115); Potassium 6.2 mmol/L (3.3-5.1); Sodium 132 mmol/L (135-145)
[2024-04-23 07:56] LABS: Glucose, Whole Blood 124 mg/dL (60-115)
[2024-04-23] MEDS: Lidocaine 4 % Patch ADH..PATCH 1 PATCH TRANSDERMA (08:10)
[2024-04-23] MEDS: amLODIPine Besylate 10 MG TABLET PO (08:11)
[2024-04-23] MEDS: Gabapentin 100 MG CAPSULE PO ×3 (08:11→20:36)
[2024-04-23] MEDS: 0.9 % Sodium Chloride Flush 3 ML SYRINGE IVFLUSH ×3 (08:11→20:37)
[2024-04-23] MEDS: Aspirin Enteric Coated 81 MG TABLET.DR PO (08:11)
--- NOTE | 2024-04-23 08:20 | ECG_ITS ---
Test Reason : CP Blood Pressure : / mmHG Vent. Rate : 093 BPM Atrial Rate : 093 BPM P-R Int : 166 ms QRS Dur : 070 ms QT Int : 366 ms P-R-T Axes : 058 014 039 degrees QTc Int : 455 ms Normal sinus rhythm Normal ECG When compared with ECG of 23-APR-2024 03:28, No significant change was found Referred By: Zuri Evans Electronically Signed By:SHANTI AVENDANO
[2024-04-23] MEDS: Sodium Zirconium Cyclosilicate 10 GM POWD.PACK PO ×2 (08:23→16:15)
--- NOTE | 2024-04-23 08:35 | P.PNNP_ITS ---
Subjective Subjective Date of Service: 04/23/24 Interval history: Pt is a 53 y/o primarily Azeri-speaking female with a PMH of HFpEF, DMII (with lower extremity neuropathy), COPD (on home O2 2L NC), postural hypotension. presented 04/07 with dyspnea, fever, hypoxia. found to have b/l pleural effusions, right thoracentesis drained 1100mL fluid 04/08, left thoracentesis on 04/09 drained 800mL fluid. also found to have bacteremia and UTI. Nephrology consulted for DILLON. lasix 40mg PO daily for treatment of acute on chronic HF with effusions on hold due to rise in creatinine on 04/14, which has persisted. creatinine 1.71 on admission (04/07/24), 1.65 on 04/11, next creatinine 04/14 was 2.13, 04/15 was 2.36, 04/16 2.38, 04/18 2.84, 04/19 2.67, 04/20 2.77, 04/21 2.61, 04/22 is 2.74 04/23 2.86 potassium remains elevated, receiving PRN lokelma creatinine prior to admission from last hospitalization in February on discharge was 1.72 on 02/13/24 (DILLON from vanco toxicity) but stable (prior to hospitalization was 1.15). CT of abd/pelvis 04/07 showed no hydronephrosis/calculi. renal US 04/20 no hydronephrosis present she reports she is urinating comfortably, denies burning, difficulty emptying bladder, blood in urine, flank pain. she reports breathing remains the same, no changes, remains on 2LNC. States feels tired and generally achy today. She denies abdominal pain, chest pain. States she continues to have chronic lower extremity pain (neuropathy). Physical Exam 2 Vital Signs: Vital Signs: Last Vital Signs Temp 97.8 F 04/23/24 07:27 Pulse 99 04/23/24 07:27 Resp 20 04/23/24 07:27 BP 137/68 04/23/24 08:11 Pulse Ox 94 04/23/24 07:27 O2 Del Method Nasal Cannula 04/23/24 07:27 O2 Flow Rate 3 04/23/24 07:27 Oxygen Flow Rate 2 04/07/24 10:37 BMI result Body Mass Index 32.1 Const: General: no acute distress, alert and awake Resp: Effort & Inspection: normal respiratory effort and able to speak in complete sentences Auscultation: diminished lung sounds (bilateral lower lobes diminished. ) bilateral Cardio: Rate: regular rate Rhythm: regular rhythm Heart sounds: S1 normal heart sound present and S2 normal heart sound present GI: Palpation (GI): Soft to palpation and nontender : General: Yes no CVA tenderness Back/Spine/Pelvis: Back: no CVA tenderness Skin: Lesions: no lesions Rashes: no rashes Extrem: General: No edema Objective Data Labs 04/23/24 06:01 04/23/24 06:01 Labs: Laboratory Results - last 24 hr 04/22/24 04/22/24 04/22/24 11:09 16:15 20:56 WBC RBC Hgb Hct MCV MCH MCHC RDW Plt Count MPV Absolute Nucleated RBC Nucleated RBC % (auto) Sodium Potassium Chloride Carbon Dioxide Anion Gap BUN Creatinine Estim Creat Clear Calc Estimated GFR POC Glucose 108 141 H 177 H Random Glucose Calcium 04/23/24 04/23/24 06:01 07:40 WBC 11.1 H RBC 2.82 L Hgb 8.3 L Hct 24.1 L MCV 85.5 MCH 29.4 MCHC 34.4 RDW 15.6 Plt Count 175 MPV 8.8 L Absolute Nucleated RBC 0.000 Nucleated RBC % (auto) 0.0 Sodium 132 L Potassium 6.2 H* Chloride 101 Carbon Dioxide 21 L Anion Gap 16 BUN 116 H Creatinine 2.86 H Estim Creat Clear Calc 21.9 Estimated GFR 17 POC Glucose 124 H Random Glucose 126 H Calcium 8.9 Microbiology Microbiology Results: Microbiology 04/11/24 08:10 Blood - Venous Blood Culture - Final No growth after 5 days. 04/11/24 08:10 Blood - Venous Blood Culture - Final No growth after 5 days. 04/07/24 12:43 Blood - Venous Blood Culture - Final Serratia marcescens 04/07/24 12:43 Blood - Venous Blood Culture - Final Serratia marcescens 04/07/24 Unknown Urine clean catch - Clean Catch Midstream Urine Culture - Final Serratia marcescens Procedures Date of Service Date of Service: 04/23/24 Assessment & Plan Assessment and plan (1) Acute kidney injury: Status: Resolved (2) UTI (urinary tract infection): Status: Acute (3) Congestive heart failure (CHF): Status: Acute Plan DILLON most likely ATN secondary to hypovolemia from diuresis Stable- given creatinine has plateaued for some time now, no obstruction on renal ultrasound 04/20 did have renal injury in February from vanco toxicity without full recovery, may have more permanent reduced renal function at baseline, though anticipate will have some gradual improvement from ATN over time. no monoclonal antibodies present in September 2023 serum complements normal ANCA vasculitides pending and urine protein/creatinine ratio elevated- 5.84 ongoing hyperkalemia- cortisol level normal lokelma 10mg this a.m. and p.m., and 10mg lokelma oral daily thereafter patient should continue 10mg PO lokelma daily outpatient until follow up with nephrology Given rise in BUN with fairly stable creatinine, and drop in H&H, concern for GIB, would recommend working up recommend continue to hold lasix and ARB, avoid nephrotoxins - if patient develops dyspnea, may consider re-starting diuretic recommend daily renal function and electrolyte checks recommend regular blood pressure checks, close I&O monitoring continue supportive care Discussed with patient importance of seeing outpatient nephrology for management of CKD, will arrange appt. Discussed with Dr Mills Time Spent With Patient Time: Total time managing care of this patient today ____ minutes. Progress Note: Quality Stroke Does the patient have a stroke diagnosis?: No
--- NOTE | 2024-04-23 10:37 | MHC.CM.PN ---
Per ROUNDS discussion, Patient is not yet medically cleared for dc (Hyperkalemia & worsening kidney function); STR is the goal and CM will continue to follow.
[2024-04-23 11:35] LABS: Glucose, Whole Blood 135 mg/dL (60-115)
--- NOTE | 2024-04-23 13:33 | HO.PM.IMPN ---
Subjective Subjective Date of Service: 04/23/24 Interval History: Seen and examined this morning Follow-up for hyperkalemia, UTI, bacteremia History obtained with the assistance of a healthcare interpreter reporting neuropathy both legs - reports is chronic Review of Systems Review of Systems: Yes all other systems are reviewed and are negative Constitutional Constitutional: Denies chills and Denies fever(s) Physical Exam Vital Signs: Vital Signs: Last Vital Signs Temp 98.4 F 04/23/24 11:08 Pulse 93 04/23/24 11:08 Resp 19 04/23/24 11:08 BP 143/65 H 04/23/24 11:08 Pulse Ox 94 04/23/24 11:08 O2 Del Method Nasal Cannula 04/23/24 11:08 O2 Flow Rate 3 04/23/24 11:08 Oxygen Flow Rate 2 04/07/24 10:37 BMI result Body Mass Index 32.1 Const: General: cooperative, comfortable, alert and awake Nutritional Appearance: overweight Resp: Effort & Inspection: normal respiratory effort, able to speak in complete sentences, no respiratory distress and no use of accessory muscles Auscultation: clear to auscultation bilaterally Cardio: Rate: regular rate GI: Inspection: No distended Palpation (GI): Soft to palpation and nontender Neuro: General: moves all extremities and CN's II-XI intact bilaterally Extrem: General: Yes no pedal edema Objective Data Active Medications Acetaminophen (Acetaminophen 325 Mg Tablet) 650 mg PO Q6H PRN PRN Reason: Pain, Mild (Pain Scale 1-3), fever or headache Last Admin: 04/19/24 23:13 Dose: 650 mg Documented By: MATTIE Amlodipine Besylate (Amlodipine Besylate 10 Mg Tablet) 10 mg PO DAILY [facility]; Protocol Last Admin: 04/23/24 08:11 Dose: 10 mg Documented By: SAMMI Aspirin (Aspirin Enteric Coated 81 Mg Tablet.Dr) 81 mg PO DAILY@0900 [facility] Last Admin: 04/23/24 08:11 Dose: 81 mg Documented By: SAMMI Benzonatate (Benzonatate 100 Mg Capsule) 100 mg PO TID PRN PRN Reason: Cough Calcium Carbonate (Calcium Carbonate 750 Mg Tab.Chew) 750 mg PO Q4H PRN PRN Reason: Heartburn Last Admin: 04/19/24 23:27 Dose: 750 mg Documented By: MATTIE Comments: c/o indigestion Docusate Sodium (Docusate Sodium 100 Mg Capsule) 200 mg PO BEDTIME PRN PRN Reason: Constipation Last Admin: 04/21/24 23:07 Dose: 200 mg Documented By: MATTIE Enoxaparin Sodium (Enoxaparin Sodium 30 Mg/0.3 Ml Syringe) 30 mg SUBCUT Q24H [facility] Last Admin: 04/19/24 17:21 Dose: 30 mg Documented By: SAMMI Ferrous Sulfate (Ferrous Sulfate 324 Mg Tablet.) 324 mg PO Q48H [facility] Last Admin: 04/22/24 09:39 Dose: 324 mg Documented By: FOSTEKBecca Gabapentin (Gabapentin 100 Mg Capsule) 100 mg PO TID [facility] Last Admin: 04/23/24 08:11 Dose: 100 mg Documented By: SAMMI Insulin Glargine (Insulin Glargine,Hum.Rec.Anlog 100 Unit/Ml 10 Ml Vial) 10 unit SUBCUT BEDTIME [facility] Last Admin: 04/22/24 22:22 Dose: 5 unit Documented By: CELESTE Comments: per Dr. Douglass Insulin Human Lispro (Insulin Lispro 100 Unit/Ml 3 Ml Vial) 0 unit SUBCUT QIDACHS [facility]; Protocol Last Admin: 04/23/24 11:39 Dose: Not Given Documented By: SANDY Non-Admin Reason: No Insulin Coverage Lactulose (Lactulose 20 Gm/30 Ml Solution) 10 gm PO BID PRN PRN Reason: constipation Last Admin: 04/15/24 01:35 Dose: 10 gm Documented By: NIKKI Levofloxacin (Levofloxacin 750 Mg Tablet) 750 mg PO Q48H [facility] Last Admin: 04/22/24 22:48 Dose: Not Given Documented By: CELESTE Non-Admin Reason: Patient Refused Lidocaine (Lidocaine 4 % Patch Adh..Patch) 1 patch TRANSDERMA DAILY [facility]; Protocol Last Admin: 04/23/24 08:10 Dose: 1 patch Documented By: SAMMI Magnesium Hydroxide (Milk Of Magnesia 30 Ml Oral.Susp) 30 ml PO DAILY PRN PRN Reason: Constipation Last Admin: 04/16/24 05:30 Dose: 30 ml Documented By: ANTOIC Melatonin (Melatonin 3 Mg Tablet) 6 mg PO BEDTIME PRN PRN Reason: Insomnia Omeprazole (Omeprazole 40 Mg Capsule.Dr) 40 mg PO DAILY@0630 [facility] Last Admin: 04/23/24 06:17 Dose: 40 mg Documented By: CELESTE Ondansetron HCl (Ondansetron Hcl 4 Mg/2 Ml Vial) 4 mg IVPUSH Q8H PRN PRN Reason: Nausea and Vomiting Last Admin: 04/22/24 19:16 Dose: 4 mg Documented By: CELESTE Sodium Chloride (0.9 % Sodium Chloride Flush 3 Ml Syringe) 3 ml IVFLUSH QSHIFT [facility] Last Admin: 04/23/24 08:11 Dose: 3 ml Documented By: SAMMI Sodium Zirconium Cyclosilicate (Sodium Zirconium Cyclosilicate 10 Gm Powd.Pack) 10 gm PO ONCE ONE Stop: 04/23/24 17:01 Sodium Zirconium Cyclosilicate (Sodium Zirconium Cyclosilicate 10 Gm Powd.Pack) 10 gm PO DAILY [facility] Labs 04/23/24 06:01 04/23/24 06:01 Labs: Laboratory Results - last 24 hr 04/22/24 04/22/24 04/23/24 16:15 20:56 06:01 MCV 85.5 MCH 29.4 MCHC 34.4 RDW 15.6 Plt Count 175 MPV 8.8 L Absolute Nucleated RBC 0.000 Nucleated RBC % (auto) 0.0 Anion Gap 16 Estim Creat Clear Calc 21.9 Estimated GFR 17 POC Glucose 141 H 177 H Random Glucose 126 H Calcium 8.9 04/23/24 04/23/24 07:40 11:26 MCV MCH MCHC RDW Plt Count MPV Absolute Nucleated RBC Nucleated RBC % (auto) Anion Gap Estim Creat Clear Calc Estimated GFR POC Glucose 124 H 135 H Random Glucose Calcium Assessment and Plan (1) Acute kidney injury superimposed on CKD: Status: Acute (2) Hyperkalemia: Status: Acute (3) UTI (urinary tract infection): Status: Acute (4) Bacterial infection due to Serratia: Status: Acute Plan This is a 53yo M with COPD on home O2 2L, DM2, HFrEF, HTN who presented with fever, dyspnea, and hypoxia and was found to be septic from bacteremia/UTI DILLON/CKD3 creatinine worsening possibly due to over-diuresis, no hypotension possibly due to ATN; renal US no obstruction hold Lasix and losartan follow BMP s/p ivf nephrology following check ANCA pending, cortisol level normal Acute hyperkalemia k 6.2 - given lokelma will give additional dose this afternoon ands tart daily per nephrology recommendation repeat BMP this afternoon nephrology following losartan on hold follow BMP Acute on chronic anemia h/h dropped below 7 , s/p 1 unit PRBC on 04/19 with good effect no evidence of blood loss but lovenox held likely due to anemia of chronic disease + acute illness stable HH Acute/chronic hypoxic resp failure due to acute/chronic HFpEF with bilateral pleural effusions. Resolved 3.5L neg R-sided thoracentesis done 04/08 with 1100 mL fluid removed L-sided thoracentesis done 04/09 with 800 mL fluid removed echo 02/09 showed EF 45-50%, s/p IV diuresis - Lasix on hold since 04/14 due to rising creatinine on home O2 2L Serratia marcescens UTI/bacteremia cefepime 04/07-04/10, changed to ceftriaxone 04/10. ID consulted>changed to levofloxacin 04/10- and plan 14 days from 1st negative BCx On renally dosed Levaquin end date 04/25. CBD dilation with calcifications likely chronic; per GI consider outpt MRCP normal LFTs no abdominal pain. HTN continue amlodipine losartan held for worsening renal function DM2 stable blood sugars basal/bolus insulin Diabetic neuropathy good pain control gabapentin dose increased to 100 mg tid on 04/12 HLD statin History of head lice no lice noted on this admission was treated with 3 doses of permethrin during last hospitalization on February. Constipation resolved continue prn stool softeners VTE ppx enoxaparin - on hold due to anemia requiring transfusion dispo to short-term rehab patient agreed In my clinical judgment, the patient requires continued inpatient hospitalization for the following reasons: DILLON, hyperkalemia Quality Stroke Does the patient have a stroke diagnosis?: No VTE Prior VTE?: No VTE Risk Level:: Medical - moderate - high VTE Device Contraindication: Treatment Not Indicated VTE Drug Contraindication: N/A - Med Ordered
[2024-04-23 15:36] LABS: Potassium 5.8 mmol/L (3.3-5.1)
[2024-04-23 16:11] LABS: Glucose, Whole Blood 114 mg/dL (60-115)
[2024-04-23 19:47] LABS: Myeloperoxidase Antibody <1.0 AI; Proteinase 3 PR3 Antibodies <1.0 AI
[2024-04-23 20:29] LABS: Glucose, Whole Blood 139 mg/dL (60-115)
[2024-04-23] MEDS: Insulin Glargine,Hum.rec.anlog 100 UNIT/ML 10 ML VIAL 10 UNIT SUBCUT (20:36)
[2024-04-23] MEDS: Albuterol/Iprat 2.5/0.5MG 3 ML AMPUL.NEB INHALE (21:18)
[2024-04-24] VITALS (8 sets, daily range): BP systolic 123–156; BP diastolic 59–75; PULSE 82–92; RESP 18–20; TEMP 36.4–37; O2SAT 92–97
[2024-04-24] MEDS: Omeprazole 40 MG CAPSULE.DR PO (04:59)
[2024-04-24 07:00] LABS: Glucose, Whole Blood 108 mg/dL (60-115)
[2024-04-24 07:23] LABS: Anion Gap 18 (12-20); Calcium 8.9 mg/dL (8.4-10.2); Carbon Dioxide 19 mmol/L (22-29); Chloride 103 mmol/L (96-108); Creatinine Clr Calc Pharmacy 22.4; Estimated Glomerular Filt Rate 18; Glucose Random 110 mg/dL (60-115); Potassium 5.6 mmol/L (3.3-5.1); Sodium 134 mmol/L (135-145)
[2024-04-24 07:33] LABS: Blood Urea Nitrogen 128 mg/dL (9-16)
[2024-04-24] MEDS: amLODIPine Besylate 10 MG TABLET PO (07:52)
[2024-04-24] MEDS: Gabapentin 100 MG CAPSULE PO ×3 (07:52→22:16)
[2024-04-24] MEDS: 0.9 % Sodium Chloride Flush 3 ML SYRINGE IVFLUSH ×3 (07:52→22:16)
[2024-04-24] MEDS: Aspirin Enteric Coated 81 MG TABLET.DR PO (07:52)
[2024-04-24] MEDS: Lidocaine 4 % Patch ADH..PATCH 1 PATCH TRANSDERMA (07:52)
[2024-04-24] MEDS: Ferrous Sulfate 324 MG TABLET.DR PO (07:52)
[2024-04-24] MEDS: Sodium Zirconium Cyclosilicate 10 GM POWD.PACK PO (07:53)
--- NOTE | 2024-04-24 08:35 | P.PNNP_ITS ---
Subjective Subjective Date of Service: 04/24/24 Interval history: Pt is a 53 y/o primarily Frisian-speaking female with a PMH of HFpEF, DMII (with lower extremity neuropathy), COPD (on home O2 2L NC), postural hypotension. presented 04/07 with dyspnea, fever, hypoxia. found to have b/l pleural effusions, right thoracentesis drained 1100mL fluid 04/08, left thoracentesis on 04/09 drained 800mL fluid. also found to have bacteremia and UTI. Nephrology consulted for DILLON. lasix 40mg PO daily for treatment of acute on chronic HF with effusions on hold due to rise in creatinine on 04/14, which has persisted. creatinine 1.71 on admission (04/07/24), 1.65 on 04/11, next creatinine 04/14 was 2.13, 04/15 was 2.36, 04/16 2.38, 04/18 2.84, 04/19 2.67, 04/20 2.77, 04/21 2.61, 04/22 is 2.74 04/23 2.86 potassium remains elevated, receiving PRN lokelma creatinine prior to admission from last hospitalization in February on discharge was 1.72 on 02/13/24 (DILLON from vanco toxicity) but stable (prior to hospitalization was 1.15). CT of abd/pelvis 04/07 showed no hydronephrosis/calculi. renal US 04/20 no hydronephrosis present she reports she is urinating comfortably, denies burning, difficulty emptying bladder, blood in urine, flank pain. she reports breathing remains the same, no changes, remains on 2LNC. States feels tired and generally achy today. She denies abdominal pain, chest pain. States she continues to have chronic lower extremity pain (neuropathy). Physical Exam 2 Vital Signs: Vital Signs: Last Vital Signs Temp 98.0 F 04/24/24 11:02 Pulse 92 04/24/24 11:02 Resp 20 04/24/24 11:02 BP 140/66 H 04/24/24 11:02 Pulse Ox 94 04/24/24 11:02 O2 Del Method Nasal Cannula 04/24/24 11:02 O2 Flow Rate 3 04/24/24 11:02 Oxygen Flow Rate 2 04/07/24 10:37 BMI result Body Mass Index 32.1 Const: General: no acute distress, alert and awake Resp: Effort & Inspection: normal respiratory effort and able to speak in complete sentences Auscultation: diminished lung sounds (bilateral lower lobes diminished. ) bilateral Cardio: Rate: regular rate Rhythm: regular rhythm Heart sounds: S1 normal heart sound present and S2 normal heart sound present GI: Palpation (GI): Soft to palpation and nontender : General: Yes no CVA tenderness Back/Spine/Pelvis: Back: no CVA tenderness Skin: Lesions: no lesions Rashes: no rashes Extrem: General: No edema Objective Data Labs 04/23/24 06:01 04/24/24 06:30 Labs: Laboratory Results - last 24 hr 04/22/24 04/23/24 04/23/24 06:15 11:26 15:07 Hold Purple Top Sodium Potassium 5.8 H Chloride Carbon Dioxide Anion Gap BUN Creatinine Estim Creat Clear Calc Estimated GFR POC Glucose 135 H Random Glucose Calcium Proteinase 3 (PR3) Ab <1.0 Myeloperoxidase Ab <1.0 04/23/24 04/23/24 04/24/24 16:08 20:24 06:30 Hold Purple Top SEE NOTE Sodium 134 L Potassium 5.6 H Chloride 103 Carbon Dioxide 19 L Anion Gap 18 BUN 128 H Creatinine 2.80 H Estim Creat Clear Calc 22.4 Estimated GFR 18 POC Glucose 114 139 H Random Glucose 110 Calcium 8.9 Proteinase 3 (PR3) Ab Myeloperoxidase Ab 04/24/24 04/24/24 06:56 10:52 Hold Purple Top Sodium Potassium Chloride Carbon Dioxide Anion Gap BUN Creatinine Estim Creat Clear Calc Estimated GFR POC Glucose 108 136 H Random Glucose Calcium Proteinase 3 (PR3) Ab Myeloperoxidase Ab Microbiology Microbiology Results: Microbiology 04/11/24 08:10 Blood - Venous Blood Culture - Final No growth after 5 days. 04/11/24 08:10 Blood - Venous Blood Culture - Final No growth after 5 days. 04/07/24 12:43 Blood - Venous Blood Culture - Final Serratia marcescens 04/07/24 12:43 Blood - Venous Blood Culture - Final Serratia marcescens 04/07/24 Unknown Urine clean catch - Clean Catch Midstream Urine Culture - Final Serratia marcescens Procedures Date of Service Date of Service: 04/24/24 Assessment & Plan Assessment and plan (1) Acute kidney injury: Status: Resolved (2) UTI (urinary tract infection): Status: Acute (3) Congestive heart failure (CHF): Status: Acute Plan DILLON on CKD most likely ATN secondary to hypovolemia from diuresis Stable- given creatinine has plateaued for some time now, no obstruction on renal ultrasound 04/20 did have renal injury in February from vanco toxicity without full recovery, may have more permanent reduced renal function at baseline, though anticipate will have some gradual improvement from ATN over time. no monoclonal antibodies present in September 2023 serum complements normal ANCA vasculitides unremarkable and urine protein/creatinine ratio elevated- 5.84 ongoing hyperkalemia- cortisol level normal continue 10mg lokelma oral daily for management of hyperkalemia patient should continue 10mg PO lokelma daily outpatient upon discharge until follow up with nephrology Given rise in BUN with fairly stable creatinine, and drop in H&H, concern for GIB, would recommend working up recommend continue to hold lasix and ARB, avoid nephrotoxins - if patient develops dyspnea, may consider re-starting diuretic recommend daily renal function and electrolyte checks recommend regular blood pressure checks, close I&O monitoring continue supportive care Discussed with patient importance of seeing outpatient nephrology for management of CKD, patient has outpatient appointment scheduled. Discussed with Dr Mills Time Spent With Patient Time: Total time managing care of this patient today ____ minutes. Progress Note: Quality Stroke Does the patient have a stroke diagnosis?: No
[2024-04-24 10:56] LABS: Glucose, Whole Blood 136 mg/dL (60-115)
[2024-04-24] MEDS: levoFLOXacin 750 MG TABLET PO (11:09)
--- NOTE | 2024-04-24 13:18 | MHC.CM.PN ---
EMR reviewed and per MD rounds, pt is not medically cleared for discharge today, but will be ready to discharge to [facility]25[facility] at 10am. Hospitalist aware.
--- NOTE | 2024-04-24 15:45 | HO.PM.IMPN ---
Subjective Subjective Date of Service: 04/24/24 Interval History: This history was taken in [place] from the patient. C/o back pain No fever K 5.6 Review of Systems Review of Systems: Yes all other systems are reviewed and are negative Physical Exam Vital Signs: Vital Signs: Last Vital Signs Temp 98.0 F 04/24/24 11:02 Pulse 92 04/24/24 11:27 Resp 20 04/24/24 11:02 BP 140/66 H 04/24/24 11:27 Pulse Ox 94 04/24/24 11:27 O2 Del Method Nasal Cannula 04/24/24 11:02 O2 Flow Rate 3 04/24/24 11:02 Oxygen Flow Rate 2 04/07/24 10:37 BMI result Body Mass Index 32.1 Gen: in no acute distress HEENT: sclera anicteric, moist mucus membranes Neck: supple Lungs: clear Heart: regular rate and rhythm, no murmurs Abd: soft, non-tender, non-distended Ext: no edema Skin: warm/well-perfused Neuro: alert and oriented x3, no focal findings Psych: appropriate affect Objective Data Active Medications Acetaminophen (Acetaminophen 325 Mg Tablet) 650 mg PO Q6H PRN PRN Reason: Pain, Mild (Pain Scale 1-3), fever or headache Last Admin: 04/19/24 23:13 Dose: 650 mg Documented By: MATTIE Albuterol/Ipratropium (Albuterol/Iprat 2.5/0.5mg 3 Ml Ampul.Neb) 3 ml INHALE Q4H PRN PRN Reason: Wheezing Last Admin: 04/23/24 21:18 Dose: 3 ml Documented By: NENO Amlodipine Besylate (Amlodipine Besylate 10 Mg Tablet) 10 mg PO DAILY [facility]; Protocol Last Admin: 04/24/24 07:52 Dose: 10 mg Documented By: SANDY Aspirin (Aspirin Enteric Coated 81 Mg Tablet.) 81 mg PO DAILY@0900 [facility] Last Admin: 04/24/24 07:52 Dose: 81 mg Documented By: SANDY Benzonatate (Benzonatate 100 Mg Capsule) 100 mg PO TID PRN PRN Reason: Cough Calcium Carbonate (Calcium Carbonate 750 Mg Tab.Chew) 750 mg PO Q4H PRN PRN Reason: Heartburn Last Admin: 04/19/24 23:27 Dose: 750 mg Documented By: MATTIE Comments: c/o indigestion Docusate Sodium (Docusate Sodium 100 Mg Capsule) 200 mg PO BEDTIME PRN PRN Reason: Constipation Last Admin: 04/21/24 23:07 Dose: 200 mg Documented By: MATTIE Enoxaparin Sodium (Enoxaparin Sodium 30 Mg/0.3 Ml Syringe) 30 mg SUBCUT Q24H [facility] Last Admin: 04/19/24 17:21 Dose: 30 mg Documented By: SAMMI Ferrous Sulfate (Ferrous Sulfate 324 Mg Tablet.) 324 mg PO Q48H [facility] Last Admin: 04/24/24 07:52 Dose: 324 mg Documented By: SANDY Gabapentin (Gabapentin 100 Mg Capsule) 100 mg PO TID [facility] Last Admin: 04/24/24 15:34 Dose: 100 mg Documented By: SANDY Insulin Glargine (Insulin Glargine,Hum.Rec.Anlog 100 Unit/Ml 10 Ml Vial) 10 unit SUBCUT BEDTIME [facility] Last Admin: 04/23/24 20:36 Dose: 10 unit Documented By: CELESTE Insulin Human Lispro (Insulin Lispro 100 Unit/Ml 3 Ml Vial) 0 unit SUBCUT QIDACHS [facility]; Protocol Last Admin: 04/24/24 11:00 Dose: Not Given Documented By: SANDY Non-Admin Reason: No Insulin Coverage Lactulose (Lactulose 20 Gm/30 Ml Solution) 10 gm PO BID PRN PRN Reason: constipation Last Admin: 04/15/24 01:35 Dose: 10 gm Documented By: NIKKI Lidocaine (Lidocaine 4 % Patch Adh..Patch) 1 patch TRANSDERMA DAILY [facility]; Protocol Last Admin: 04/24/24 07:52 Dose: 1 patch Documented By: SANDY Magnesium Hydroxide (Milk Of Magnesia 30 Ml Oral.Susp) 30 ml PO DAILY PRN PRN Reason: Constipation Last Admin: 04/16/24 05:30 Dose: 30 ml Documented By: ANTOIC Melatonin (Melatonin 3 Mg Tablet) 6 mg PO BEDTIME PRN PRN Reason: Insomnia Omeprazole (Omeprazole 40 Mg Capsule.) 40 mg PO DAILY@0630 [facility] Last Admin: 04/24/24 04:59 Dose: 40 mg Documented By: CELESTE Ondansetron HCl (Ondansetron Hcl 4 Mg/2 Ml Vial) 4 mg IVPUSH Q8H PRN PRN Reason: Nausea and Vomiting Last Admin: 04/22/24 19:16 Dose: 4 mg Documented By: CELESTE Sodium Chloride (0.9 % Sodium Chloride Flush 3 Ml Syringe) 3 ml IVFLUSH QSHIFT [facility] Last Admin: 04/24/24 15:34 Dose: 3 ml Documented By: SANDY Sodium Zirconium Cyclosilicate (Sodium Zirconium Cyclosilicate 10 Gm Powd.Pack) 10 gm PO DAILY [facility] Last Admin: 04/24/24 07:53 Dose: 10 gm Documented By: SANDY Labs 04/23/24 06:01 04/24/24 06:30 Labs: Laboratory Results - last 24 hr 04/22/24 04/23/24 04/23/24 06:15 16:08 20:24 Hold Purple Top Anion Gap Estim Creat Clear Calc Estimated GFR POC Glucose 114 139 H Random Glucose Calcium Proteinase 3 (PR3) Ab <1.0 Myeloperoxidase Ab <1.0 04/24/24 04/24/24 04/24/24 06:30 06:56 10:52 Hold Purple Top SEE NOTE Anion Gap 18 Estim Creat Clear Calc 22.4 Estimated GFR 18 POC Glucose 108 136 H Random Glucose 110 Calcium 8.9 Proteinase 3 (PR3) Ab Myeloperoxidase Ab Assessment and Plan (1) Acute kidney injury superimposed on CKD: Status: Acute (2) Hyperkalemia: Status: Acute (3) UTI (urinary tract infection): Status: Acute (4) Bacterial infection due to Serratia: Status: Acute Plan d18 for 53yo M with COPD on home O2 2L, DM2, HFrEF, HTN who presented with fever, dyspnea, and hypoxia and was found to be septic from bacteremia/UTI DILLON/CKD3 - creatinine worsened possibly due to over-diuresis, which has been held; SCr slightly improved today - continue to hold losartan - outpt Nephro follow-up acute hyperK - continue maintenance Lokelma, K down from 6.2 to 5.62 today, recheck BMP in AM; losartan held acute/chronic anemia of CKD - transfused 1u pRBCs 04/19 with appropriate response acute/chronic hypoxic resp failure due to acute/chronic HFpEF with bilateral pleural effusions - R-sided thoracentesis done 04/08 with 1100 mL fluid removed - L-sided thoracentesis done 04/09 with 800 mL fluid removed - echo 02/09 showed EF 45-50% - underwent IV diuresis until 04/14 when stopped due to DILLON - continue home O2 2L Serratia marcescens UTI/bacteremia - cefepime 04/07-04/10, changed to ceftriaxone 04/10. - ID consulted; changed to levofloxacin 04/10- and plan 14 days from 1st negative BCx; end date today CBD dilation with calcifications - likely chronic; per GI consider outpt MRCP - normal LFTs; no abdominal pain. HTN - continue amlodipine; losartan held for worsening renal function DM2 - stable blood sugar; basal/bolus insulin diabetic neuropathy - gabapenitn HLD - statin VTE ppx - SCDs, no heparin due to anemia dispo - plan STR In my clinical judgment, the patient requires continued inpatient hospitalization for the following reasons: placement, hyperK, DILLON Total time managing care of this patient today: 40 minutes. Quality Stroke Does the patient have a stroke diagnosis?: No VTE Prior VTE?: No VTE Risk Level:: Medical - moderate - high VTE Device Contraindication: Treatment Not Indicated VTE Drug Contraindication: N/A - Med Ordered
[2024-04-24 16:23] LABS: Glucose, Whole Blood 185 mg/dL (60-115)
[2024-04-24] MEDS: Insulin Lispro 100 UNIT/ML 3 ML VIAL SUBCUT (16:29)
[2024-04-24 20:34] LABS: Glucose, Whole Blood 104 mg/dL (60-115)
[2024-04-24] MEDS: Insulin Glargine,Hum.rec.anlog 100 UNIT/ML 10 ML VIAL 10 UNIT SUBCUT (22:16)
[2024-04-25 03:52] VITALS: BP 130/61; PULSE 97; RESP 18; TEMP 36.7; O2SAT 95
[2024-04-25] MEDS: ondansetron HCL 4 MG/2 ML VIAL IVPUSH (04:41)
[2024-04-25] MEDS: Metoclopramide HCl 10 MG/2 ML VIAL IVPUSH (06:01)
[2024-04-25 07:30] LABS: Anion Gap 15 (12-20); Calcium 8.9 mg/dL (8.4-10.2); Carbon Dioxide 22 mmol/L (22-29); Chloride 105 mmol/L (96-108); Creatinine Clr Calc Pharmacy 22.3; Estimated Glomerular Filt Rate 18; Glucose Random 94 mg/dL (60-115); Potassium 5.5 mmol/L (3.3-5.1); Sodium 136 mmol/L (135-145)
[2024-04-25 07:32] LABS: Glucose, Whole Blood 86 mg/dL (60-115)
[2024-04-25 07:40] LABS: Blood Urea Nitrogen 127 mg/dL (9-16)
[2024-04-25 07:42] VITALS: BP 136/60; PULSE 95; RESP 18; TEMP 36.8; O2SAT 94
--- NOTE | 2024-04-25 09:28 | PM.DS ---
DS: Providers Provider Date of Service: 04/25/24 Date of admission: 04/07/24 16:43 Date of discharge: 04/25/24 Primary care physician: Neelima Gómez MD Consults: 04/09/24 10:17 Consult to Infectious Diseases Routine Consulting Provider: [facility] Reason for consultation: Serratia marcescens bacteremia 04/16/24 11:43 Consult to Wound Care Routine Reason for consultation: per tip scale 04/16/24 14:57 Consult to Nephrology Routine Consulting Provider: [facility] Reason for consultation: dillon and medication managment for htn Has provider been notified: No DS: Diagnosis Discharge Diagnosis (1) Acute kidney injury superimposed on CKD: Status: Acute (2) Hyperkalemia: Status: Acute (3) UTI (urinary tract infection): Status: Acute (4) Bacterial infection due to Serratia: Status: Acute (5) Bacteremia: Status: Acute (6) Bilateral pleural effusion: Status: Acute (7) Dilated cbd, acquired: Status: Acute (8) Acute on chronic anemia: Status: Resolved (9) Acute on chronic heart failure with mildly reduced ejection fraction (HFmrEF, 41-49%): Status: Acute (10) Acute and chronic respiratory failure with hypoxia: Status: Acute DS: Summary Hospital Course Hospital Course: From the history and physical by the admitting hospitalist, Saji Adams MD, 04/07/24: Queta Loya is a 53 y/o woman w/ PMHx significant for COPD -home O2 2L, DMII, HFrEF, HTN among others presenting with fever, dyspnea and hypoxia. The patient is poor historian, has poor compliance, presented with increase edema , dyspnea, shortness of breath with fever. she could not provide anymore details. No chest pain, palpitations, SOB, nausea, vomiting, diarrhea or urinary symptoms. In ED she is hypoxic with sats in 80s%, elevated BNP and negative TropI. CXR showing increased b/l moderate pleural effusions and bibasilar consolidations. CT chest showing pulmonary edema and b/l pleural effusions, large volume. received 60mg IV lasix, a dose of cefepime, home amlodipine, and IV Tylenol. Admitted for further work up and treatment. 53yo M with COPD on home O2 2L, DM2, HFpEF, and HTN who presented with fever, dyspnea, and hypoxia and was found to be septic from bacteremia/UTI. Hospital course by problem: acute/chronic hypoxic resp failure due to acute/chronic HFpEF with bilateral pleural effusions - R-sided thoracentesis done 04/08 with 1100 mL fluid removed - L-sided thoracentesis done 04/09 with 800 mL fluid removed - Echo 02/09 had shown EF 45-50% - She underwent IV diuresis until 04/14 when it was stopped due to DILLON - Oxygen requirement reduced to home level of 2L. DILLON/CKD3 - Creatinine worsened possibly due to over-diuresis. - Losartan and furosemide discontinued. - SCr settled around 2.8, which may represent her new baseline. - Will need outpatient Nephrology follow up 04/30; repeat BMP on 04/27. acute hyperK - Started on maintenance Lokelma. Losartan discontinued. K on discharge 5.5 and BMP to be repeated on 04/27. acute/chronic anemia of CKD - Transfused 1u pRBCs 04/19 with appropriate response. Serratia marcescens UTI/bacteremia - Treated with cefepime 04/07-04/10, changed to ceftriaxone 04/10. - ID consulted; changed to levofloxacin 04/10- and treated for 14 days from negative blood culture; end date 04/24. CBD dilation with calcifications - Incidental and likely chronic; per GI consider outpt MRCP/cosultation. Normal LFTs; no abdominal pain. She was discharged to [facility] for short-term rehabilitation as per PT recommendation/evaluation. Time Attestation Discharge Coordination Time (in mins): 45 Quality: Safe Use of Opioids Does Pt have an Active Cancer Diagnosis on the Problem List?: No Quality: Stroke Does the patient have a stroke diagnosis?: No Physical Exam Vital Signs: Vital Signs: Last Vital Signs Temp 98.3 F 04/25/24 07:42 Pulse 95 04/25/24 07:42 Resp 18 04/25/24 07:42 BP 136/60 04/25/24 07:42 Pulse Ox 94 04/25/24 07:42 O2 Del Method Nasal Cannula 04/25/24 07:42 O2 Flow Rate 1.5 04/25/24 07:42 Oxygen Flow Rate 2 04/07/24 10:37 BMI result Body Mass Index 32.1 Gen: in no acute distress HEENT: sclera anicteric, moist mucus membranes Neck: supple Lungs: clear Heart: regular rate and rhythm, no murmurs Abd: soft, non-tender, non-distended Ext: no edema Skin: warm/well-perfused Neuro: alert and oriented x3, no focal findings Psych: appropriate affect DS: Data Data Completed and Pending Completed studies during hospitalization [Text1]: Laboratory Results WBC 11.1 X10*3/uL (4.8-10.8) H 04/23/24 06:01 RBC 2.82 X10*6/uL (4.20-5.50) L 04/23/24 06:01 Hgb 8.3 g/dl (12.0-16.0) L 04/23/24 06:01 Hct 24.1 % (37.0-47.0) L 04/23/24 06:01 MCV 85.5 fL (80.0-98.0) 04/23/24 06:01 MCH 29.4 pg (27.0-33.0) 04/23/24 06:01 MCHC 34.4 g/dl (31.0-35.0) 04/23/24 06:01 RDW 15.6 % (11.0-16.0) 04/23/24 06:01 Plt Count 175 X10*3/uL (160-400) 04/23/24 06:01 MPV 8.8 fL (9.4-12.3) L 04/23/24 06:01 Immature Gran % (Auto) 0.5 % (0.0-0.4) H 04/10/24 05:56 Neut % (Auto) 66.6 % (45-73) 04/10/24 05:56 Lymph % (Auto) 21.8 % (20-40) 04/10/24 05:56 Swisher % (Auto) 8.2 % (2-11) 04/10/24 05:56 Eos % (Auto) 2.7 % (0-4) 04/10/24 05:56 Baso % (Auto) 0.2 % (0-2) 04/10/24 05:56 Lymph # (Auto) 2.1 X10*3/uL (1.2-4.9) 04/10/24 05:56 Swisher # (Auto) 0.8 X10*3/uL (0.1-1.2) 04/10/24 05:56 Eos # (Auto) 0.3 X10*3/uL (0.0-0.4) 04/10/24 05:56 Baso # (Auto) 0.0 X10*3/uL (0.0-0.2) 04/10/24 05:56 Abs Immat Gran (auto) 0.05 X10*3/uL (0.00-0.03) H 04/10/24 05:56 Absolute Neuts (auto) 6.5 x10*3/uL (2.0-8.3) 04/10/24 05:56 Absolute Nucleated RBC 0.000 X10*3/uL (0.0-0.012) 04/23/24 06:01 Nucleated RBC % (auto) 0.0 /100WBC (0.0-0.2) 04/23/24 06:01 Hold Purple Top SEE NOTE 04/24/24 06:30 Sodium 136 mmol/L (135-145) 04/25/24 07:07 Potassium 5.5 mmol/L (3.3-5.1) H 04/25/24 07:07 Chloride 105 mmol/L (96-108) 04/25/24 07:07 Carbon Dioxide 22 mmol/L (22-29) 04/25/24 07:07 Anion Gap 15 (12-20) 04/25/24 07:07 BUN 127 mg/dL (9-16) H 04/25/24 07:07 Creatinine 2.81 mg/dL (0.5-1.4) H 04/25/24 07:07 Estim Creat Clear Calc 22.3 04/25/24 07:07 Estimated GFR 18 04/25/24 07:07 POC Glucose 86 mg/dL (60-115) 04/25/24 07:18 Random Glucose 94 mg/dL (60-115) 04/25/24 07:07 Lactic Acid 0.7 mmol/L (0.5-2.0) 04/07/24 12:43 Calcium 8.9 mg/dL (8.4-10.2) 04/25/24 07:07 Magnesium 1.9 mg/dL (1.6-2.6) 04/11/24 07:12 Total Bilirubin 0.1 mg/dL (0.0-1.0) 04/19/24 07:22 Direct Bilirubin 0.1 mg/dL (0.0-0.5) 04/07/24 11:25 AST 35 U/L (5-31) H 04/19/24 07:22 ALT 32 U/L (0-31) H 04/19/24 07:22 Alkaline Phosphatase 97 U/L (39-117) 04/19/24 07:22 Troponin I High Sens 8.8 ng/L (<3.5-17.0) 04/07/24 11:25 B-Natriuretic Peptide 375 pg/mL (<100) H 04/11/24 07:12 Total Protein 6.3 g/dL (6.5-8.0) L 04/19/24 07:22 Albumin 2.7 g/dL (3.5-5.0) L 04/19/24 07:22 Lipase 12 U/L (8-78) 04/07/24 11:25 Random Cortisol 11.2 ug/dL 04/22/24 06:15 Urine Color Yellow 04/20/24 12:00 Urine Appearance Clear 04/20/24 12:00 Urine pH 5.5 (5.0-9.0) 04/20/24 12:00 Ur Specific [place] 1.010 (1.005-1.025) 04/20/24 12:00 Urine Protein 100 (2+) mg/dL (Neg-Trace) H 04/20/24 12:00 Urine Glucose (UA) Negative mg/dL (Negative) 04/20/24 12:00 Urine Ketones Negative mg/dL (Negative) 04/20/24 12:00 Urine Blood Trace (Negative) H 04/20/24 12:00 Urine Nitrite Negative (Negative) 04/20/24 12:00 Ur Leukocyte Esterase Trace (Negative) H 04/20/24 12:00 Urine RBC 3-5 /HPF (0-2) H 04/20/24 12:00 Urine WBC 0-5 /HPF (0-5) 04/20/24 12:00 Ur Squamous Epith Cells 0-2 /HPF (0-2) 04/20/24 12:00 Other Crystals Present 04/07/24 13:24 Urine Bacteria None Seen (None Seen) 04/20/24 12:00 Hyaline Casts 0-2 /LPF (0-2) 04/20/24 12:00 Urine Eosinophils % 0.0 % 04/20/24 12:00 Urine Osmolality 280 mosm/kg (373-1093) L 04/17/24 14:41 U Random Total Protein 146 mg/dL (<12) H 04/21/24 06:29 Ur Random Sodium 37.0 mmol/L 04/17/24 14:41 Urine Creatinine 25.39 mg/dL 04/21/24 12:29 Stool Occult Blood NEGATIVE (NEGATIVE) 04/20/24 18:15 Proteinase 3 (PR3) Ab <1.0 AI 04/22/24 06:15 Myeloperoxidase Ab <1.0 AI 04/22/24 06:15 Complement C3 121 mg/dL (83-193) 04/17/24 06:34 Complement C4 34 mg/dL (15-57) 04/17/24 06:34 Influenza Type A (PCR) NEGATIVE (Negative) 04/07/24 11:25 Influenza Type B (PCR) NEGATIVE (Negative) 04/07/24 11:25 RSV RNA Qual (PCR) NEGATIVE (Negative) 04/07/24 11:25 SARS-CoV-2 RNA (RT-PCR) NEGATIVE (Negative) 04/07/24 11:25 Blood Type A Positive 04/19/24 09:10 Antibody Screen NEGATIVE 04/19/24 09:10 Crossmatch See Detail 04/19/24 09:[address] 04/07/24 11:29 IMPRESSION: Pulmonary edema and bilateral pleural effusions, large volume. Cardiogenic versus nephrogenic among other etiologies. Fleischner guidelines were followed. Electronically signed by: Farzad Castillo MD 04/07/2024 12:59 PM EST RP Abdomen/Pelvis CT 04/07/24 12:16 IMPRESSION: Bilateral pleural effusions, large volume with atelectasis versus infiltrates, new since prior exam. Concerning choledocholithiasis. No intestinal obstruction pattern. Ascites, small to moderate volume. Fleischner guidelines were followed. Electronically signed by: Farzad Castillo MD 04/07/2024 02:28 PM EST RP Chest X-Ray 04/08/24 12:40 IMPRESSION: No gross pneumothorax. Resolved right-sided pleural effusion. Pulmonary edema. Left-sided pleural effusion, moderate to large volume. Electronically signed by: Farzad Castillo MD 04/08/2024 03:15 PM EST RP Thoracentesis Ultrasound 04/09/24 12:30 Impression: Ultrasound-guided left thoracentesis Electronically signed by: Akash Raymond MD 04/09/2024 01:40 PM EST RP Renal Ultrasound 04/20/24 16:53 IMPRESSION: Right renal pelvic fullness. Electronically signed by: Cesia Mayen MD 04/21/2024 04:14 PM EST RP Discharge Plan Discharge Anticipated Discharge Date/Time: 04/25/24 09:19 Patient Disposition: [facility] Discharge Diagnosis: acute/chronic kidney disease hyperkalemia acute/chronic hypoxic respiratory failure heart failure pleural effusions UTI/bacteremia dilated CBD with calcifications Referrals: [facility] [Other] - 1 Week [facility] [Provider Group] - 1 Month Neelima Brown MD [Primary Care Provider] - 1 Week Alberto Mills MD [Physician] - 04/30/24 Discharge Medications: New lidocaine [Lidocaine Pain Relief] 4 % Adhesive Patch,Medicated 1 patch transdermal DAILY Qty: 30 0RF Protocol: Apply to: Apply to: upper back gabapentin 100 mg Capsule 100 mg PO TID Qty: 90 0RF Lokelma 10 gram Powder In Packet 10 g PO DAILY Qty: 30 0RF Continued aspirin 81 mg tablet,delayed release (DR/EC) 1 tab PO DAILY@0900 (DME) FreeStyle Test Strip See Rx Instructions .Route Qty: 100 0RF Rx Instructions: As directed amlodipine 10 mg Tablet 10 mg PO DAILY Qty: 30 0RF Protocol: Hold for SBP< HOLD for SBP < : 90 lactulose 10 gram/15 mL solution 10 g PO BID PRN (Reason: constipation) Qty: 473 0RF ondansetron 4 mg tablet,disintegrating 4 mg PO Q6-8H PRN (Reason: nausea and vomiting) Qty: 14 0RF insulin glargine [Lantus U-100 Insulin] 100 unit/mL Solution 10 unit subcut BEDTIME Qty: 10 0RF omeprazole 40 mg capsule,delayed release(DR/EC) 40 mg PO QAM ferrous sulfate 324 mg (65 mg iron) tablet,delayed release (DR/EC) 324 mg PO Q OTHER DAY Discontinued gabapentin 100 mg Capsule 100 mg PO BEDTIME Qty: 90 0RF furosemide 20 mg Tablet 20 mg PO DAILY Qty: 0 0RF Protocol: Hold for SBP< HOLD for SBP < : 90 losartan 25 mg tablet 25 mg PO DAILY Discharge Orders: Discharge Order (Routine); Ordered 04/25/24 Ordered By: Javan Cardenas Diet: Diabetic diet Activity on Discharge: As tolerated Stand Alone Forms: Patient Portal Discharge page Print Language: Amharic Care Plan Goals: kidney health rehabilitation from acute illness Health Concerns: acute/chronic kidney disease hyperkalemia acute/chronic hypoxic respiratory failure heart failure pleural effusions UTI/bacteremia dilated CBD with calcifications Plan of Treatment: take Lokelma 10 grams daily STOP losartan STOP furosemide recheck BMP on 04/27/24 follow up with [facility] Nephrology on 04/30/24 consider follow up with [facility] Gastroenterology in 1-2 months regarding dilated CBD with calcifications Please follow up with your primary care doctor within 1 week of discharge from short-term rehabilitation. Return to the hospital if you experience recurrent or worsening symptoms. Assessment: See Discharge Summary. Discharge Date/Time: 04/25/24 10:40
--- NOTE | 2024-04-25 09:33 | PM.DS ---
DS: Providers Provider Date of Service: 04/25/24 Date of admission: 04/07/24 16:43 Primary care physician: Neelima Gómez MD Consults: 04/09/24 10:17 Consult to Infectious Diseases Routine Consulting Provider: [facility] Reason for consultation: Serratia marcescens bacteremia 04/16/24 11:43 Consult to Wound Care Routine Reason for consultation: per tip scale 04/16/24 14:57 Consult to Nephrology Routine Consulting Provider: [facility] Reason for consultation: dillon and medication managment for htn Has provider been notified: No DS: Diagnosis Discharge Diagnosis (1) Acute kidney injury superimposed on CKD: Status: Acute (2) Hyperkalemia: Status: Acute (3) UTI (urinary tract infection): Status: Acute (4) Bacterial infection due to Serratia: Status: Acute (5) Bacteremia: Status: Acute (6) Bilateral pleural effusion: Status: Acute (7) Dilated cbd, acquired: Status: Acute (8) Acute on chronic anemia: Status: Resolved (9) Acute on chronic heart failure with mildly reduced ejection fraction (HFmrEF, 41-49%): Status: Acute (10) Acute and chronic respiratory failure with hypoxia: Status: Acute DS: Summary Hospital Course Hospital Course: From the history and physical by the admitting hospitalist, Saji Adams MD, 04/07/24: Queta Loya is a 53 y/o woman w/ PMHx significant for COPD -home O2 2L, DMII, HFrEF, HTN among others presenting with fever, dyspnea and hypoxia. The patient is poor historian, has poor compliance, presented with increase edema , dyspnea, shortness of breath with fever. she could not provide anymore details. No chest pain, palpitations, SOB, nausea, vomiting, diarrhea or urinary symptoms. In ED she is hypoxic with sats in 80s%, elevated BNP and negative TropI. CXR showing increased b/l moderate pleural effusions and bibasilar consolidations. CT chest showing pulmonary edema and b/l pleural effusions, large volume. received 60mg IV lasix, a dose of cefepime, home amlodipine, and IV Tylenol. Admitted for further work up and treatment. 53yo M with COPD on home O2 2L, DM2, HFpEF, and HTN who presented with fever, dyspnea, and hypoxia and was found to be septic from bacteremia/UTI. Hospital course by problem: acute/chronic hypoxic resp failure due to acute/chronic HFpEF with bilateral pleural effusions - R-sided thoracentesis done 04/08 with 1100 mL fluid removed - L-sided thoracentesis done 04/09 with 800 mL fluid removed - Echo 02/09 had shown EF 45-50% - She underwent IV diuresis until 04/14 when it was stopped due to DILLON - Oxygen requirement reduced to home level of 2L. DILLNO/CKD3 - Creatinine worsened possibly due to over-diuresis. - Losartan and furosemide discontinued. - SCr settled around 2.8, which may represent her new baseline. - Will need outpatient Nephrology follow up 04/30; repeat BMP on 04/27. acute hyperK - Started on maintenance Lokelma. Losartan discontinued. K on discharge 5.5 and BMP to be repeated on 04/27. acute/chronic anemia of CKD - Transfused 1u pRBCs 04/19 with appropriate response. Serratia marcescens UTI/bacteremia - Treated with cefepime 04/07-04/10, changed to ceftriaxone 04/10. - ID consulted; changed to levofloxacin 04/10- and treated for 14 days from negative blood culture; end date 04/24. CBD dilation with calcifications - Incidental and likely chronic; per GI consider outpt MRCP/cosultation. Normal LFTs; no abdominal pain. She was discharged to [facility] for short-term rehabilitation as per PT recommendation/evaluation. Time Attestation Discharge Coordination Time (in mins): 45 Quality: Safe Use of Opioids Does Pt have an Active Cancer Diagnosis on the Problem List?: No Quality: Stroke Does the patient have a stroke diagnosis?: No Physical Exam Vital Signs: Vital Signs: Last Vital Signs Temp 98.3 F 04/25/24 07:42 Pulse 95 04/25/24 07:42 Resp 18 04/25/24 07:42 BP 136/60 04/25/24 07:42 Pulse Ox 94 04/25/24 07:42 O2 Del Method Nasal Cannula 04/25/24 07:42 O2 Flow Rate 1.5 04/25/24 07:42 Oxygen Flow Rate 2 04/07/24 10:37 BMI result Body Mass Index 32.1 DS: Data Data Completed and Pending Completed studies during hospitalization [Text1]: Procedures Assistance with Respiratory Ventilation, Less than 24 Consecutive Hours, Continuous Positive Airway Pressure (02/08/24) Drainage of Left Pleural Cavity, Percutaneous Approach (02/08/24) Drainage of Right Pleural Cavity, Percutaneous Approach (02/08/24) Insertion of Infusion Device into Left Cephalic Vein, Percutaneous Approach (02/08/24) Transfusion of Nonautologous Red Blood Cells into Peripheral Vein, Percutaneous Approach (02/08/24) Labs on day of discharge: Laboratory Results - last 24 hr 04/24/24 04/24/24 04/24/24 10:52 16:15 20:30 Sodium Potassium Chloride Carbon Dioxide Anion Gap BUN Creatinine Estim Creat Clear Calc Estimated GFR POC Glucose 136 H 185 H 104 Random Glucose Calcium 04/25/24 04/25/24 07:07 07:18 Sodium 136 Potassium 5.5 H Chloride 105 Carbon Dioxide 22 Anion Gap 15 BUN 127 H Creatinine 2.81 H Estim Creat Clear Calc 22.3 Estimated GFR 18 POC Glucose 86 Random Glucose 94 Calcium 8.9 Discharge Plan Discharge Anticipated Discharge Date/Time: 04/25/24 09:19 Patient Disposition: [facility] Discharge Diagnosis: acute/chronic kidney disease hyperkalemia acute/chronic hypoxic respiratory failure heart failure pleural effusions UTI/bacteremia dilated CBD with calcifications Referrals: [facility] [Other] - 1 Week [facility] [Provider Group] - 1 Month Neelima Brown MD [Primary Care Provider] - 1 Week Alberto Mills MD [Physician] - 04/30/24 Discharge Medications: New lidocaine [Lidocaine Pain Relief] 4 % Adhesive Patch,Medicated 1 patch transdermal DAILY Qty: 30 0RF Protocol: Apply to: Apply to: upper back gabapentin 100 mg Capsule 100 mg PO TID Qty: 90 0RF Lokelma 10 gram Powder In Packet 10 g PO DAILY Qty: 30 0RF Continued aspirin 81 mg tablet,delayed release (DR/EC) 1 tab PO DAILY@0900 (DME) FreeStyle Test Strip See Rx Instructions .Route Qty: 100 0RF Rx Instructions: As directed amlodipine 10 mg Tablet 10 mg PO DAILY Qty: 30 0RF Protocol: Hold for SBP< HOLD for SBP < : 90 lactulose 10 gram/15 mL solution 10 g PO BID PRN (Reason: constipation) Qty: 473 0RF ondansetron 4 mg tablet,disintegrating 4 mg PO Q6-8H PRN (Reason: nausea and vomiting) Qty: 14 0RF insulin glargine [Lantus U-100 Insulin] 100 unit/mL Solution 10 unit subcut BEDTIME Qty: 10 0RF omeprazole 40 mg capsule,delayed release(DR/EC) 40 mg PO QAM ferrous sulfate 324 mg (65 mg iron) tablet,delayed release (DR/EC) 324 mg PO Q OTHER DAY Discontinued gabapentin 100 mg Capsule 100 mg PO BEDTIME Qty: 90 0RF furosemide 20 mg Tablet 20 mg PO DAILY Qty: 0 0RF Protocol: Hold for SBP< HOLD for SBP < : 90 losartan 25 mg tablet 25 mg PO DAILY Discharge Orders: Discharge Order (Routine); Ordered 04/25/24 Ordered By: Javan Cardenas Diet: Diabetic diet Activity on Discharge: As tolerated Stand Alone Forms: Patient Portal Discharge page Print Language: [place] Care Plan Goals: kidney health rehabilitation from acute illness Health Concerns: acute/chronic kidney disease hyperkalemia acute/chronic hypoxic respiratory failure heart failure pleural effusions UTI/bacteremia dilated CBD with calcifications Plan of Treatment: take Lokelma 10 grams daily STOP losartan STOP furosemide recheck BMP on 04/27/24 follow up with [facility] Nephrology on 04/30/24 consider follow up with [facility] Gastroenterology in 1-2 months regarding dilated CBD with calcifications Please follow up with your primary care doctor within 1 week of discharge from short-term rehabilitation. Return to the hospital if you experience recurrent or worsening symptoms. Assessment: See Discharge Summary.
[2024-04-25] MEDS: Lidocaine 4 % Patch ADH..PATCH 1 PATCH TRANSDERMA (09:38)
[2024-04-25] MEDS: 0.9 % Sodium Chloride Flush 3 ML SYRINGE IVFLUSH (09:39)
[2024-04-25] MEDS: Sodium Zirconium Cyclosilicate 10 GM POWD.PACK PO (09:39)
[2024-04-25] MEDS: Aspirin Enteric Coated 81 MG TABLET.DR PO (09:39)
[2024-04-25] MEDS: amLODIPine Besylate 10 MG TABLET PO (09:39)
[2024-04-25] MEDS: Gabapentin 100 MG CAPSULE PO (09:39)
[2024-04-25] MEDS: Lactulose 20 GM/30 ML SOLUTION 10 GM PO (09:46)
== END 2024-04-25 10:40 | disposition skilled nursing facility (03) | DRG 720 ==
LOC: HO.ED 15:42 → HO.EDOVER 16:56 → HO.IMC 04-08 19:31
PROVIDERS: Family Medicine; Hospitalist; Nurse Practitioner Acute Care; Nurse Practitioner Family; Physician Assistant Medical; Student in an Organized Health Care Education/Training Program; Admitting Provider Student in an Organized Health Care Education/Training Program; Emergency Provider Emergency Medicine; PCP Internal Medicine; Visit Provider Family Medicine
PROC: 0W9B3ZZ Drainage of Left Pleural Cavity, Percutaneous Approach (ICD-10-PCS; principal; 2024-04-09 12:30)
DX: A41.9 Sepsis, unspecified organism (principal); J96.21 Acute and chronic respiratory failure with hypoxia; N17.0 Acute kidney failure with tubular necrosis; I50.33 Acute on chronic diastolic (congestive) heart failure; J18.9 Pneumonia, unspecified organism; J91.8 Pleural effusion in other conditions classified elsewhere; I13.0 Hypertensive heart and chronic kidney disease with heart failure and stage 1 through stage 4 chronic kidney disease, or unspecified chronic kidney disease; J44.0 Chronic obstructive pulmonary disease with (acute) lower respiratory infection; D63.1 Anemia in chronic kidney disease; K83.8 Other specified diseases of biliary tract; E86.1 Hypovolemia; E87.5 Hyperkalemia; E11.22 Type 2 diabetes mellitus with diabetic chronic kidney disease; E78.5 Hyperlipidemia, unspecified; N18.30 Chronic kidney disease, stage 3 unspecified; E11.40 Type 2 diabetes mellitus with diabetic neuropathy, unspecified; N39.0 Urinary tract infection, site not specified; B96.89 Other specified bacterial agents as the cause of diseases classified elsewhere; K59.00 Constipation, unspecified; Z20.822 Contact with and (suspected) exposure to COVID-19; Z99.81 Dependence on supplemental oxygen; Z79.4 Long term (current) use of insulin; Z79.82 Long term (current) use of aspirin; Z79.899 Other long term (current) drug therapy; R31.9 Hematuria, unspecified
CPT/HCPCS: 0241U; 32555; 36415; 71045; 71046; 71250; 74176; 76775; 80048; 80053; 81001; 82248; 82272; 82533; 82570; 82947; 83605; 83690; 83735; 83880; 83935; 84132; 84156; 84300; 84484; 85025; 85027; 85999; 86021; 86160; 86850; 86900; 86901; 86923; 87040; 87077; 87086; 87088; 87186; 87205; 93005; 94640; 97110; 97116; 97162; 97530; 99285; J0131; J0456; J0692; J0696; J1650; J1940; J2003; J2405; J2765; J3480; P9016

== ENCOUNTER → 2024-04-07 11:07 | Outpatient (BNV) | payer MEDICAID, SELFPAY | PROVIDERS: Emergency Provider Emergency Medicine; Visit Provider Radiology Diagnostic Radiology | DX: R10.9 Unspecified abdominal pain (principal) | CPT/HCPCS: 71250; 74176 ==

== ENCOUNTER → 2024-04-07 12:44 | Outpatient (BNV) | payer MEDICAID, SELFPAY | PROVIDERS: Emergency Provider Emergency Medicine; Visit Provider Internal Medicine Cardiovascular Disease | DX: R94.31 Abnormal electrocardiogram [ECG] [EKG] (principal) | CPT/HCPCS: 93010 ==

== ENCOUNTER 2024-04-07 16:43 | Outpatient (BNV) | payer MEDICAID, SELFPAY | END 2024-04-09 08:00 | PROVIDERS: Admitting Provider Student in an Organized Health Care Education/Training Program; Emergency Provider Emergency Medicine; PCP Internal Medicine; Visit Provider Student in an Organized Health Care Education/Training Program | DX: J96.01 Acute respiratory failure with hypoxia (principal) | CPT/HCPCS: 32555 ==

== ENCOUNTER 2024-04-07 16:43 | Outpatient (BNV) | payer MEDICAID, SELFPAY | END 2024-04-08 12:40 | PROVIDERS: Admitting Provider Student in an Organized Health Care Education/Training Program; Emergency Provider Emergency Medicine; PCP Internal Medicine; Visit Provider Radiology Diagnostic Radiology | DX: J96.01 Acute respiratory failure with hypoxia (principal) | CPT/HCPCS: 71045 ==

== ENCOUNTER 2024-04-07 16:43 | Outpatient (BNV) | payer MEDICAID, SELFPAY | END 2024-04-23 03:28 | PROVIDERS: Admitting Provider Student in an Organized Health Care Education/Training Program; Emergency Provider Emergency Medicine; PCP Internal Medicine; Visit Provider Internal Medicine | DX: R07.9 Chest pain, unspecified (principal) | CPT/HCPCS: 93010 ==

== ENCOUNTER → 2024-04-07 16:43 | Outpatient (BNV) | payer MEDICAID, SELFPAY | PROVIDERS: Admitting Provider Student in an Organized Health Care Education/Training Program; Emergency Provider Emergency Medicine; PCP Internal Medicine; Visit Provider Nurse Practitioner Family | DX: N17.9 Acute kidney failure, unspecified (principal); N39.0 Urinary tract infection, site not specified; R31.9 Hematuria, unspecified; I50.9 Heart failure, unspecified | CPT/HCPCS: 99222; 99232 ==

== ENCOUNTER → 2024-04-07 16:43 | Outpatient (BNV) | payer MEDICAID, SELFPAY | PROVIDERS: Admitting Provider Student in an Organized Health Care Education/Training Program; Emergency Provider Emergency Medicine; PCP Internal Medicine; Visit Provider Internal Medicine Gastroenterology | DX: I50.9 Heart failure, unspecified (principal) | CPT/HCPCS: 99223 ==

== ENCOUNTER → 2024-04-07 16:43 | Outpatient (BNV) | payer MEDICAID, SELFPAY | PROVIDERS: Admitting Provider Student in an Organized Health Care Education/Training Program; Emergency Provider Emergency Medicine; PCP Internal Medicine; Visit Provider Student in an Organized Health Care Education/Training Program | DX: A49.8 Other bacterial infections of unspecified site (principal) | CPT/HCPCS: 99232; 99233 ==

== ENCOUNTER → 2024-04-07 16:43 | Outpatient (BNV) | payer MEDICAID, SELFPAY | PROVIDERS: Admitting Provider Student in an Organized Health Care Education/Training Program; Emergency Provider Emergency Medicine; PCP Internal Medicine; Visit Provider Internal Medicine | DX: A49.8 Other bacterial infections of unspecified site (principal) | CPT/HCPCS: 99222 ==

== ENCOUNTER 2024-05-16 07:23 | Emergency (ER) | payer MEDICAID, SELFPAY ==
--- NOTE | ~2024-05-16 | CT_ITS ---
CLINICAL HISTORY: contusion right chest, chest pain CT chest without contrast Comparison: 04/07/2024 Findings: The heart size is normal. The visualized thyroid and mediastinum are unremarkable. There are large volume bilateral pleural effusions with underlying consolidation, possible subsegmental atelectasis or pneumonia. The upper abdomen is unremarkable. The bones are intact. IMPRESSION: 1. Bilateral pleural effusions with underlying consolidation, differential considerations noted. This document has been electronically signed by: Taco Hubbard MD on 05/16/2024 12:14:30
--- NOTE | ~2024-05-16 | XR_ITS ---
CLINICAL HISTORY: chest pain 2 view chest x-ray Comparison: 04/07/2024 Findings: There are small bilateral pleural effusions with left basilar opacities. The heart is within the upper limits of normal in size. No acute fracture. IMPRESSION: 1. Small bilateral pleural effusions with left basilar opacities, which may represent atelectasis or pneumonia. This document has been electronically signed by: Kenrick Miranda on 05/16/2024 08:26:54
--- NOTE | 2024-05-16 07:27 | ECG_ITS ---
Test Reason : CP Blood Pressure : */* mmHG Vent. Rate : 82 BPM Atrial Rate : 82 BPM P-R Int : 150 ms QRS Dur : 74 ms QT Int : 406 ms P-R-T Axes : 70 8 18 degrees QTcB Int : 474 ms Normal sinus rhythm Nonspecific ST and T wave abnormality Borderline ECG When compared with ECG of 23-Apr-2024 08:20, No significant change was found Referred By: Generic ED Physician Electronically Signed By: SHANTI AVENDANO
[2024-05-16 07:33] VITALS: BP 157/60; PULSE 83; RESP 16; TEMP 36.6; O2SAT 97; BMI 23.3
--- NOTE | 2024-05-16 07:41 | ED_ITS ---
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 Reports pain is worse with palpation, denies fall or other trauma. Denies associated shortness of breath, palpitations, nausea or vomiting. Rates current pain at 9/10. Denies dizziness, lightheadedness. MD complaint: chest pain Pertinent past history: other Onset (ago): hour(s) Timing of current episode: constant Onset: during rest Pain location: right chest Pain radiation: none Pain scale (0-10): 9 Treatment prior to arrival: aspirin Related Data Home Medications ?Medication ?Instructions ?Recorded ?Confirmed aspirin 81 mg tablet,delayed 1 tab PO DAILY@0900 07/21/22 04/07/24 release ferrous sulfate 324 mg (65 mg 324 mg PO Q OTHER DAY 04/07/24 04/07/24 iron) tablet,delayed release omeprazole 40 mg capsule,delayed 40 mg PO QAM 04/07/24 04/07/24 release Previous Rx's ?Medication ?Instructions ?Recorded blood sugar diagnostic (FreeStyle #100 ea 10/02/22 Test strips) amlodipine 10 mg tablet 10 mg PO DAILY #30 tabs 09/19/23 insulin glargine 100 unit/mL 10 unit (0.1 mL) subcut BEDTIME 01/14/24 subcutaneous solution (Lantus #10 mL U-100 Insulin) lactulose 10 gram/15 mL oral 10 g (15 mL) PO BID PRN 03/26/24 solution constipation #473 mL ondansetron 4 mg disintegrating 4 mg PO Q6-8H PRN nausea and 03/26/24 tablet vomiting #14 tabs gabapentin 100 mg capsule 100 mg PO TID #90 caps 04/25/24 lidocaine 4 % topical patch 1 patch transdermal DAILY #30 ea 04/25/24 (Lidocaine Pain Relief) sodium zirconium cyclosilicate 10 10 g PO DAILY #30 ea 04/25/24 gram oral powder packet (Lokelma) amoxicillin 875 mg-potassium 1 tab PO BID #14 tabs 05/16/24 clavulanate 125 mg tablet azithromycin 250 mg tablet See Rx Instructions PO .COMPLEX #6 05/16/24 tabs Allergies Allergy/AdvReac Type Severity Reaction Status Date / Time shrimp Allergy Swelling Verified 05/16/24 07:33 Review of Systems 2 Review of Systems: As per HPI Yes all other systems are reviewed and are negative Constitutional: Constitutional: Reports as per HPI PMFSH Past Medical History Medical History Urinary tract infection Hypertension Symptomatic anemia Brain lesion Iron deficiency anemia HLD (hyperlipidemia) Anemia Depression Type 2 diabetes mellitus Family History Family History Other Hypertension Social History Social History Household Members: Children Household Members Other:: Daughter Housing: Apartment Do you presently have visiting nurse or other home services: Yes Unable to assess alcohol history related to: Unable to respond Alcohol intake: former Patient Tobacco Use Status: Never used Tobacco e-Cigarette/Vaping Use: Never Used Second Hand Smoke Exposure: No Advance Directives: Yes Advance Directives on File: Yes Advance Directives Date on File: 06/19/21 Do you have a plan to hurt others: No Plan service: No Current occupational status: unemployed Physical Exam 2 Vital Signs: Vital Signs: Last Vital Signs Temp 97.8 F 05/16/24 07:33 Pulse 77 05/16/24 11:26 Resp 16 05/16/24 11:26 BP 141/69 H 05/16/24 11:26 Pulse Ox 98 05/16/24 11:26 O2 Del Method Room Air 05/16/24 11:26 BMI result Body Mass Index 23.3 Vital signs have been reviewed and appear to be correct. Blood pressure elevated. Heart rate normal. Respiratory rate normal. Temperature normal. Oxygen saturation normal. Const: General: cooperative, healthy appearing and no acute distress O rientation/consciousness: oriented to person, oriented to place, oriented to time and patient oriented x3 Limitations: no limitations HEENT: Head: Yes normocephalic and Yes atraumatic Ears: external ears normal General nose exam: Normal external nose present Face and sinus: Yes face symmetric Mouth: oropharynx normal and moist mucous membranes Throat: Yes uvula midline Eyes: Pupils: Equal, round and reactive pupils present Neck: Neck: Yes normal visual inspection and Yes supple Chest: Chest palpation & inspection: tenderness Chest/axillae images: 1. erythema, superficial abrasion, tenderness Resp: Effort & Inspection: normal respiratory effort and able to speak in complete sentences Auscultation: clear to auscultation bilaterally Cardio: Rate: regular rate Rhythm: regular rhythm Heart sounds: S1 normal heart sound present and S2 normal heart sound present GI: Palpation (GI): Soft to palpation and nontender Auscultation: n ormoactive bowel sounds : General: Yes no CVA tenderness Back/Spine/Pelvis: Back: no CVA tenderness Skin: General skin exam: elasticity normal and turgor normal Neuro: General: oriented to person, oriented to place, oriented to time, patient oriented x3, moves all extremities, no focal motor deficits and CN's II- XI intact bilaterally Cranial nerves: Yes Equal, round and reactive pupils present Cognition (Neuro): normal cognition Extrem: General: Yes full ROM, Yes no pedal edema and Yes no calf tenderness Psych: Mental Status: mental status grossly normal Affect: normal affect Thought process: Normal thought process present Medical Decision Making Medical Decision Making [facility] Narrative: Patient is a 54-year-old Serbian-speaking female with 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 On exam patient is awake, A+Ox3,BP elevated, VS otherwise WNL, afebrile, normal neurological exam without focal deficits, physical exam findings as above. Given reported symptoms and physical exam findings, initial differential includes but is not limited to contusion, musculoskeletal pain. Given erythema/abrasion, suspect this is unlikely ACS, but given patient's pmhx will obtain EKG, CXR, check labs. PE unlikely, Wells 0. Labs notable for chronic anemia not at transfusion level, chronically elevated BUN and creatinine, slightly elevated troponin, no delta on repeat. X- ray chest notable for small bilateral pleural effusions with left basilar opacities. My interpretation is in agreement with the radiologist's interpretation. Given concern for possible traumatic injury, will obtain CT chest. CT notable for bilateral pleural effusions with underlying consolidations. Will treat for pneumonia, vitals have remained WNL, feel patient is stable for discharge back to rehab facility. Return precautions discussed. Patient verbalized understanding of and agreement with plan. In- person kiln stoker was utilized for all interactions, assessments, and discussions. Differential Diagnosis Differential Diagnoses: The differential diagnosis associated with the presentation includes As per [facility] Admission/Observation Consideration of admission/observation: Escalation of care including admission/observation considered Patient would have been admitted to the hospital had their work up had any findings where hospital admission was appropriate and their clinical presentation warranted hospital admission. Lab Data [facility] Lab Attestation statement: I reviewed the patient's lab results. As per [facility] 05/16/24 07:52 05/16/24 07:52 Labs: Lab Results 05/16/24 05/16/24 Range/Units 07:52 10:30 WBC 6.7 (4.8-10.8) X10*3/uL RBC 2.86 L (4.20-5.50) X10*6/uL Hgb 8.3 L (12.0-16.0) g/dl Hct 25.0 L (37.0-47.0) % MCV 87.4 (80.0-98.0) fL MCH 29.0 (27.0-33.0) pg MCHC 33.2 (31.0-35.0) g/dl RDW 14.7 (11.0-16.0) % Plt Count 140 L (160-400) X10*3/uL MPV 8.2 L (9.4-12.3) fL Immature Gran % (Auto) 0.3 (0.0-0.4) % Neut % (Auto) 53.4 (45-73) % Lymph % (Auto) 36.5 (20-40) % Emmet % (Auto) 6.4 (2-11) % Eos % (Auto) 3.0 (0-4) % Baso % (Auto) 0.4 (0-2) % Lymph # (Auto) 2.4 (1.2-4.9) X10*3/uL Emmet # (Auto) 0.4 (0.1-1.2) X10*3/uL Eos # (Auto) 0.2 (0.0-0.4) X10*3/uL Baso # (Auto) 0.0 (0.0-0.2) X10*3/uL Abs Immat Gran (auto) 0.02 (0.00-0.03) X10*3/uL Absolute Neuts (auto) 3.6 (2.0-8.3) x10*3/uL Absolute Nucleated RBC 0.000 (0.0-0.012) X10*3/uL Nucleated RBC % (auto) 0.0 (0.0-0.2) /100WBC Sodium 138 (135-145) mmol/L Potassium 5.0 (3.3-5.1) mmol/L Chloride 109 H (96-108) mmol/L Carbon Dioxide 25 (22-29) mmol/L Anion Gap 9 L (12-20) BUN 48 H (9-16) mg/dL Creatinine 2.44 H (0.5-1.4) mg/dL Estim Creat Clear Calc 23.4 Estimated GFR 21 Random Glucose 107 (60-115) mg/dL Calcium 8.1 L D (8.4-10.2) mg/dL Total Bilirubin 0.2 (0.0-1.0) mg/dL AST 27 (5-31) U/L ALT 20 (0-31) U/L Alkaline Phosphatase 97 (39-117) U/L Troponin I High Sens 15.8 D 13.6 (<3.5-17.0) ng/L Total Protein 7.4 (6.5-8.0) g/dL Albumin 3.1 L (3.5-5.0) g/dL Independent Interpretation I performed an independent interpretation of an: EKG (normal sinus rhythm, rate 82bpm, normal OK interval, no significant change from prior) Radiology Impression Discussion of test interpretation with radiology: I have reviewed the radiologist's reading. Radiologist Impression: Findings: There are small bilateral pleural effusions with left basilar opacities. The heart is within the upper limits of normal in size. No acute fracture. IMPRESSION: 1. Small bilateral pleural effusions with left basilar opacities, which may represent atelectasis or pneumonia. External Record Review External record reviewed: Inpatient record, Office record and Outpatient record Prescription Management I considered prescription management with: Antibiotic Discharge Plan Discharge Clinical Impression: Pneumonia, Pleural effusion Patient Disposition: Xfer Inpatient Rehab Fac Instructions: Pleural Effusion (ED), Community Acquired Pneumonia (DC) Additional Instructions: You were evaluated in the emergency department today for chest pain and shortness of breath. Your chest x-ray and CT scan shows evidence of pneumonia. You are being treated with antibiotics, please complete the full course as prescribed. Follow up with your primary care provider within the next 2-3 days to schedule a follow-up appointment. You will need a repeat chest x-ray to confirm resolution of your pneumonia. Return to the emergency department if you develop worsening shortness of breath, chest pain, palpitations, fever 100.4? F or greater, or any other concerning symptoms. Prescriptions: New amoxicillin-pot clavulanate 875-125 mg tablet 1 tab PO BID Qty: 14 0RF azithromycin 250 mg tablet See Rx Instructions .ROUTE .COMPLEX Qty: 6 0RF Rx Instructions: For 250 mg dose pack: take 500 mg today (day 1), then 250 mg for 4 days (days 2-5) No Action aspirin 81 mg tablet,delayed release (DR/EC) 1 tab PO DAILY@0900 (DME) FreeStyle Test Strip See Rx Instructions .Route Qty: 100 0RF Rx Instructions: As directed amlodipine 10 mg Tablet 10 mg PO DAILY Qty: 30 0RF Protocol: Hold for SBP< HOLD for SBP < : 90 lactulose 10 gram/15 mL solution 10 g PO BID PRN (Reason: constipation) Qty: 473 0RF ondansetron 4 mg tablet,disintegrating 4 mg PO Q6-8H PRN (Reason: nausea and vomiting) Qty: 14 0RF insulin glargine [Lantus U-100 Insulin] 100 unit/mL Solution 10 unit subcut BEDTIME Qty: 10 0RF omeprazole 40 mg capsule,delayed release(DR/EC) 40 mg PO QAM ferrous sulfate 324 mg (65 mg iron) tablet,delayed release (DR/EC) 324 mg PO Q OTHER DAY lidocaine [Lidocaine Pain Relief] 4 % Adhesive Patch,Medicated 1 patch transdermal DAILY Qty: 30 0RF Protocol: Apply to: Apply to: upper back gabapentin 100 mg Capsule 100 mg PO TID Qty: 90 0RF Lokelma 10 gram Powder In Packet 10 g PO DAILY Qty: 30 0RF Print Language: Serbian
[2024-05-16 07:57] LABS: Basophils Percent Auto 0.4 % (0-2); Eosinophils Absolute Auto 0.2 X10*3/uL (0.0-0.4); Hemoglobin 8.3 g/dl (12.0-16.0); Imm Gran Abs Auto 0.02 X10*3/uL (0.00-0.03); Imm Gran Pct Auto 0.3 % (0.0-0.4); Lymphocytes Absolute Auto 2.4 X10*3/uL (1.2-4.9); Lymphocytes Percent Auto 36.5 % (20-40); MANUAL DIFF FLAG NO; Mean Corpuscular HGB Conc 33.2 g/dl (31.0-35.0); Mean Corpuscular Volume 87.4 fL (80.0-98.0); Mean Platelet Volume 8.2 fL (9.4-12.3); Monocytes Absolute Auto 0.4 X10*3/uL (0.1-1.2); Monocytes Percent Auto 6.4 % (2-11); Neutrophils Absolute Auto 3.6 x10*3/uL (2.0-8.3); Neutrophils Percent Auto 53.4 % (45-73); Platelet Count 140 X10*3/uL (160-400); Red Blood Count 2.86 X10*6/uL (4.20-5.50); Red Cell Distribution Width 14.7 % (11.0-16.0); White Blood Count 6.7 X10*3/uL (4.8-10.8)
[2024-05-16 08:13] LABS: Alanine Aminotransferase 20 U/L (0-31); Albumin Level 3.1 g/dL (3.5-5.0); Alkaline Phosphatase 97 U/L (39-117); Anion Gap 9 (12-20); Aspartate Amino Transferase 27 U/L (5-31); Bilirubin Total 0.2 mg/dL (0.0-1.0); Blood Urea Nitrogen 48 mg/dL (9-16); Calcium 8.1 mg/dL (8.4-10.2); Carbon Dioxide 25 mmol/L (22-29); Chloride 109 mmol/L (96-108); Creatinine Clr Calc Pharmacy 23.4; Estimated Glomerular Filt Rate 21; Glucose Random 107 mg/dL (60-115); Sodium 138 mmol/L (135-145); Total Protein 7.4 g/dL (6.5-8.0)
--- NOTE | 2024-05-16 08:15 | PC.NURSE ---
patient presents from [facility], states she woke up with right sided chest pain, patient noted to have red echavarria over her right chest area, states she does not know where they came from. patient denies falls or injury. pain is reproducible with palpation and deep breathing. utilized supervisor shellfish farming for triage and traveler changer. patient noted to be in a normal sinus rhythm on the tele monitor. patient states her legs hurt but this is chronic in nature, she states she no longer walks
[2024-05-16 08:19] LABS: Troponin-I High Sensitivity 15.8 ng/L (<3.5-17.0)
[2024-05-16 09:50] VITALS: BP 125/61; PULSE 76; RESP 16; O2SAT 93
[2024-05-16 10:59] LABS: Troponin-I High Sensitivity 13.6 ng/L (<3.5-17.0)
[2024-05-16 11:26] VITALS: BP 141/69; PULSE 77; RESP 16; O2SAT 98
--- NOTE | 2024-05-16 12:51 | PC.NURSE ---
Called [facility], spoke to Yolanda nurse at facility, plans for patient to be transferred back on PO abx, all questions answered, patient awaiting transport back to [facility].
[2024-05-16 13:41] VITALS: BP 138/67; PULSE 80; RESP 16; O2SAT 98
[2024-05-16 13:46] VITALS: BP 138/67; PULSE 80; RESP 16; TEMP 36.7; O2SAT 98
== END 2024-05-16 13:47 ==
PROVIDERS: Registered Nurse Emergency; Emergency Provider Emergency Medicine; PCP Internal Medicine
DX: J18.9 Pneumonia, unspecified organism (principal); J90 Pleural effusion, not elsewhere classified; I11.0 Hypertensive heart disease with heart failure; I50.33 Acute on chronic diastolic (congestive) heart failure; E11.9 Type 2 diabetes mellitus without complications; E78.5 Hyperlipidemia, unspecified; D64.9 Anemia, unspecified; Z79.82 Long term (current) use of aspirin; Z79.899 Other long term (current) drug therapy; Z79.4 Long term (current) use of insulin
CPT/HCPCS: 36415; 71046; 71250; 80053; 84484; 85025; 93005; 99285

== ENCOUNTER → 2024-05-16 07:27 | Outpatient (BNV) | payer MEDICAID, SELFPAY | PROVIDERS: Emergency Provider Emergency Medicine; PCP Internal Medicine; Visit Provider Internal Medicine | DX: R07.9 Chest pain, unspecified (principal); R94.31 Abnormal electrocardiogram [ECG] [EKG] | CPT/HCPCS: 93010 ==

== ENCOUNTER → 2024-05-16 07:42 | Outpatient (BNV) | payer MEDICAID, SELFPAY | PROVIDERS: Emergency Provider Emergency Medicine; Visit Provider Radiology Vascular & Interventional Radiology | DX: R07.9 Chest pain, unspecified (principal) | CPT/HCPCS: 71046; 71250 ==

== ENCOUNTER 2024-05-30 15:12 | Inpatient (IN) | payer MEDICAID, SELFPAY ==
--- NOTE | ~2024-05-30 | XR_ITS ---
EXAMINATION: XR CHEST CLINICAL INFORMATION: s/p left thoracentesis COMPARISON: Chest x-ray 05/30/2024. TECHNIQUE: Frontal view of the chest was obtained. FINDINGS: Lungs and moderate haziness with right basilar homogeneous opacity suggestive of effusion/infiltrate/atelectasis. Rest of the lungs are expanded and clear. Heart size is borderline normal with slight increased pulmonary vascularity question mild congestion. No gross bony abnormality. XR/XR chest 1V IMPRESSION: Suspect mild pulmonary vascular congestion. Right basilar patchy opacity question effusion with underlying infiltrate/atelectasis. Electronically signed by: Jeremiah Farr MD 06/01/2024 10:27 AM [facility]
--- NOTE | ~2024-05-30 | US_ITS ---
PROCEDURE: Ultrasound-guided left thoracentesis History: Left pleural effusion Specimen: None Access: 5 Kiswahili Yueh catheter Medications: 10 mL 1% lidocaine TECHNIQUE/FINDINGS Appropriate preprocedural clinical history and imaging studies were reviewed. The patient was brought to the department and placed in the seated position. Ultrasound images of the left thorax were obtained to localize a moderate pleural effusion. Permanent ultrasound images were saved. Risks and benefits and possible complications were discussed with the patient's son and consent was obtained. An area of the patient's left back was prepped and draped in usual sterile fashion. 10 mL of 1% lidocaine was used to obtain local anesthesia of the skin and deeper tissues. A standard small bore needle was introduced to sample pleural fluid and demonstrate a safe access route. A 5 Kiswahili Yueh catheter was then used to access the pleural cavity. 900 ml of ashish fluid was removed passively. The catheter was then removed. A dressing was applied. A postprocedure chest x-ray will be performed and will be dictated separately. There were no immediate complications. The procedure was performed by Gene Linares PA-C and supervised by Dr. Raymond US/US thoracentesis Impression: Ultrasound-guided left thoracentesis Electronically signed by: Akash Raymond MD 06/01/2024 02:48 PM [facility] [place]
--- NOTE | ~2024-05-30 | XR_ITS ---
CLINICAL HISTORY: pain 2 view chest x-ray Comparison: CR - XR CHEST 2V - 05/16/24 08:05 EST Findings: Icrdxjmd-do-jrgbf bilateral pleural effusions have developed. Perihilar and bilateral lower lung opacities have developed. Heart borders are partially obscured. The heart appears enlarged. No acute fracture. IMPRESSION: Findings suggesting heart failure. This document has been electronically signed by: Jose Miguel Leal MD on 05/30/2024 17:36:41
[2024-05-30 15:51] VITALS: BP 132/66; PULSE 94; O2SAT 81
[2024-05-30 16:10] VITALS: BP 179/77; PULSE 93; RESP 18; TEMP 36.5; O2SAT 95; BMI 21.0
--- NOTE | 2024-05-30 16:19 | ECG_ITS ---
Test Reason : pain Blood Pressure : */* mmHG Vent. Rate : 92 BPM Atrial Rate : 92 BPM P-R Int : 144 ms QRS Dur : 70 ms QT Int : 372 ms P-R-T Axes : 57 18 -2 degrees QTcB Int : 460 ms Normal sinus rhythm Normal ECG When compared with ECG of 16-May-2024 07:34, No significant change was found Referred By: Gene Jenkins Electronically Signed By: JAYA STOLL MD
[2024-05-30 16:33] LABS: MANUAL DIFF FLAG NO
--- NOTE | 2024-05-30 16:39 | ED_ITS ---
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 Patient reports that her symptoms started yesterday. She reports chills but no fevers. She denies any sharp pain. EMS reported that the patient was 81% on room air, as she was not on her baseline oxygen supplementation. The patient reports that her breathing is baseline for her She denies any chest pain or cough She denies any sick contacts or recent travel Related Data Home Medications ?Medication ?Instructions ?Recorded ?Confirmed aspirin 81 mg tablet,delayed 1 tab PO DAILY@0900 07/21/22 04/07/24 release ferrous sulfate 324 mg (65 mg 324 mg PO Q OTHER DAY 04/07/24 04/07/24 iron) tablet,delayed release omeprazole 40 mg capsule,delayed 40 mg PO QAM 04/07/24 04/07/24 release Previous Rx's ?Medication ?Instructions ?Recorded blood sugar diagnostic (FreeStyle #100 ea 10/02/22 Test strips) amlodipine 10 mg tablet 10 mg PO DAILY #30 tabs 09/19/23 insulin glargine 100 unit/mL 10 unit (0.1 mL) subcut BEDTIME 01/14/24 subcutaneous solution (Lantus #10 mL U-100 Insulin) lactulose 10 gram/15 mL oral 10 g (15 mL) PO BID PRN 03/26/24 solution constipation #473 mL ondansetron 4 mg disintegrating 4 mg PO Q6-8H PRN nausea and 03/26/24 tablet vomiting #14 tabs gabapentin 100 mg capsule 100 mg PO TID #90 caps 04/25/24 lidocaine 4 % topical patch 1 patch transdermal DAILY #30 ea 04/25/24 (Lidocaine Pain Relief) sodium zirconium cyclosilicate 10 10 g PO DAILY #30 ea 04/25/24 gram oral powder packet (Lokelma) amoxicillin 875 mg-potassium 1 tab PO BID #14 tabs 05/16/24 clavulanate 125 mg tablet azithromycin 250 mg tablet See Rx Instructions PO .COMPLEX #6 05/16/24 tabs Allergies Allergy/AdvReac Type Severity Reaction Status Date / Time shrimp Allergy Swelling Verified 05/30/24 16:14 Review of Systems 2 Constitutional: Constitutional: Reports body ache(s), Reports chills, Denies fever(s) and Denies headache(s) Eyes: Eyes: Denies blurry vision ENT: Denies vertigo, Denies dizziness, Denies headache(s) and Denies sore throat Cardiovascular: Cardiovascular: Denies chest pain and Denies dyspnea Respiratory: Respiratory: Denies cough and Denies dyspnea Gastrointestinal: Gastrointestinal: Denies abdominal pain, Denies bloating, Denies hematochezia, Denies change in bowel habits, Reports diarrhea, Reports loose stools, Reports nausea and Reports vomiting Musculoskeletal: Musculoskeletal: Denies back pain Integumentary/Breasts: Skin/Breast: Denies rash Neurologic: Denies vertigo, Denies dizziness and Denies headache(s) Psychiatric: Psychiatric: Denies anxiety [facility] Past Medical History Medical History Urinary tract infection Hypertension Symptomatic anemia Brain lesion Iron deficiency anemia HLD (hyperlipidemia) Anemia Depression Type 2 diabetes mellitus Family History Family History Other Hypertension Social History Social History Household Members: Children Household Members Other:: Daughter Housing: Apartment Do you presently have visiting nurse or other home services: Yes Unable to assess alcohol history related to: Unable to respond Alcohol intake: former Patient Tobacco Use Status: Never used Tobacco Smoked in Last 30 Days: No e-Cigarette/Vaping Use: Never Used Second Hand Smoke Exposure: No Use of substances other than those prescribed or required for medical reasons: No Advance Directives: Yes Advance Directives on File: Yes Advance Directives Date on File: 06/19/21 Do you have a plan to hurt others: No Plan Patient : No service: No Current occupational status: unemployed Physical Exam ED Vital Signs: Vital Signs - 24 hr 05/30/24 16:10 05/30/24 21:09 Temperature 97.7 F Pulse Rate 93 90 Respiratory Rate 18 18 Blood Pressure 179/77 H 176/81 H Pulse Oximetry 95 95 Oxygen Delivery Method Nasal Cannula Room Air BMI result Body Mass Index 21.0 Const General: healthy appearing, comfortable, no acute distress, alert and awake Nutritional Appearance: well nourished Orientation/consciousness: patient oriented x3 HENMT Head: Yes normocephalic and Yes atraumatic Eyes Eyelids: Yes eyelids normal Conjunctivae: conjunctivae normal Sclerae: sclerae normal Corneas: corneas normal Pupils: Equal, round and reactive pupils present EOM: EOMs intact bilaterally Neck Neck: Yes full ROM Resp Effort & Inspection: normal respiratory effort, able to speak in complete sentences, no audible wheezes and not labored Auscultation: clear to auscultation bilaterally Cardio Rate: regular rate Rhythm: regular rhythm GI Inspection: No distended Palpation (GI): Soft to palpation, not firm, nontender, no guarding and not rigid Skin General skin exam: elasticity normal Neuro General: patient oriented x3 Cranial nerves: Yes Equal, round and reactive pupils present and Yes Bilaterally intact EOM present Cognition (Neuro): normal cognition Extrem Other: Moving all extremities well without any obvious deformities Course Reevaluation(s) Reevaluation #1: Patient's chest x-ray showed moderate pleural effusions which were significantly worse compared to her previous from 2 weeks ago. She does not complain of shortness of breath but EMS found the patient to be hypoxic. She was increased to 4 L by EMS and has been on 4 L. I asked nursing staff to decrease her oxygen supplementation to 2 L and she became hypoxic to 86%. She was then increased back up to 4 L. a BNP was ordered given her chest x-ray findings and was over 1300, the highest it has ever been. I ordered a dose of Lasix 40 mg IV, we will discuss with the hospitalist for admission due to decompensated congestive heart failure Time: 22:51 Medications Administered Discontinued Medications Generic Name Dose Route Start Last Admin Trade Name Freq PRN Reason Stop Dose Admin Furosemide 40 mg 05/30/24 18:56 05/30/24 21:08 Furosemide 40 Mg/4 Ml Vial IVPUSH 05/30/24 18:57 40 mg STAT STA Administration Protocol Ondansetron HCl 4 mg 05/30/24 16:29 05/30/24 16:43 Ondansetron Hcl 4 Mg/2 Ml Vial IVPUSH 05/30/24 16:30 4 mg ONCE ONE Administration Medical Decision Making Medical Decision Making [facility] Narrative: 54-year-old female past medical history as documented above presents for evaluation of a 2 day history of nausea vomiting and diarrhea. The patient is quite well appearing, she was hypertensive to 179/77 but otherwise vital signs are within normal limits on her supplemental oxygen. She is afebrile, nontoxic appearing. History exam is most consistent with a viral gastroenteritis. Plan for labs, viral swabs, we will get a chest x-ray given her significant history. We will treat her with Zofran. We will hold off on fluids given her history of CHF, she is not tachycardic or hypotensive and does not appear significantly dehydrated. Differential Diagnosis Differential Diagnoses: The differential diagnosis associated with the presentation includes Vomiting diarrhea Coronavirus Gastroenteritis Influenza COVID-19 Admission/Observation Consideration of admission/observation: Escalation of care including admission/observation considered Lab Data [facility] Lab Attestation statement: I reviewed the patient's lab results. No leukocytosis. The patient has a chronic normocytic anemia. Chemistries significant for a chloride level that is high, BUN and creatinine that are elevated but consistent with her baseline. In fact her creatinine is actually slightly improved compared to her baseline. Her baseline is around 2.5 and today she was 2.16. BNP is elevated to 1309 which is an increase from her baseline of about 600-700. 05/30/24 16:29 05/30/24 16:29 Labs: Lab Results 05/30/24 05/30/24 Range/Units 16:29 19:30 WBC 7.2 (4.8-10.8) X10*3/uL RBC 2.58 L (4.20-5.50) X10*6/uL Hgb 7.5 L (12.0-16.0) g/dl Hct 22.9 L (37.0-47.0) % MCV 88.8 (80.0-98.0) fL MCH 29.1 (27.0-33.0) pg MCHC 32.8 (31.0-35.0) g/dl RDW 14.6 (11.0-16.0) % Plt Count 161 (160-400) X10*3/uL MPV 8.3 L (9.4-12.3) fL Immature Gran % (Auto) 0.4 (0.0-0.4) % Neut % (Auto) 75.9 H (45-73) % Lymph % (Auto) 18.5 L (20-40) % [place] % (Auto) 4.7 (2-11) % Eos % (Auto) 0.4 (0-4) % Baso % (Auto) 0.1 (0-2) % Lymph # (Auto) 1.3 (1.2-4.9) X10*3/uL [place] # (Auto) 0.3 (0.1-1.2) X10*3/uL Eos # (Auto) 0.0 (0.0-0.4) X10*3/uL Baso # (Auto) 0.0 (0.0-0.2) X10*3/uL Abs Immat Gran (auto) 0.03 (0.00-0.03) X10*3/uL Absolute Neuts (auto) 5.4 (2.0-8.3) x10*3/uL Absolute Nucleated RBC 0.000 (0.0-0.012) X10*3/uL Nucleated RBC % (auto) 0.0 (0.0-0.2) /100WBC PT 12.0 (10.9-12.4) SEC INR 1.0 (0.9-1.1) Sodium 136 (135-145) mmol/L Potassium 4.9 (3.3-5.1) mmol/L Chloride 110 H (96-108) mmol/L Carbon Dioxide 21 L (22-29) mmol/L Anion Gap 10 L (12-20) BUN 50 H (9-16) mg/dL Creatinine 2.16 H (0.5-1.4) mg/dL Estim Creat Clear Calc 28.2 Estimated GFR 24 Random Glucose 151 H (60-115) mg/dL Calcium 8.6 D (8.4-10.2) mg/dL Total Bilirubin 0.3 (0.0-1.0) mg/dL AST 40 H (5-31) U/L ALT 69 H (0-31) U/L Alkaline Phosphatase 211 H (39-117) U/L Troponin I High Sens 15.2 (<3.5-17.0) ng/L B-Natriuretic Peptide 1309 H (<100) pg/mL Total Protein 7.7 (6.5-8.0) g/dL Albumin 3.1 L (3.5-5.0) g/dL Lipase 12 (8-78) U/L Influenza Type A (PCR) NEGATIVE (Negative) Influenza Type B (PCR) NEGATIVE (Negative) RSV RNA Qual (PCR) NEGATIVE (Negative) SARS-CoV-2 RNA (RT-PCR) NEGATIVE (Negative) Independent Interpretation I performed an independent interpretation of an: Plain X-Ray (Bilateral pleural effusions worse than 2 weeks ago) Radiology Impression Discussion of test interpretation with radiology: I have reviewed the radiologist's reading. Radiologist Impression: Findings: Wrmwywzf-jb-frznk bilateral pleural effusions have developed. Perihilar and bilateral lower lung opacities have developed. Heart borders are partially obscured. The heart appears enlarged. No acute fracture. IMPRESSION: Findings suggesting heart failure. This document has been electronically signed by: Jose Miguel Leal MD on 05/30/2024 17:36:41 Discharge Plan Discharge Clinical Impression: Vomiting, Congestive heart failure Patient Disposition: Still a Patient Prescriptions: No Action aspirin 81 mg tablet,delayed release (DR/EC) 1 tab PO DAILY@0900 (DME) FreeStyle Test Strip See Rx Instructions .Route Qty: 100 0RF Rx Instructions: As directed amlodipine 10 mg Tablet 10 mg PO DAILY Qty: 30 0RF Protocol: Hold for SBP< HOLD for SBP < : 90 lactulose 10 gram/15 mL solution 10 g PO BID PRN (Reason: constipation) Qty: 473 0RF ondansetron 4 mg tablet,disintegrating 4 mg PO Q6-8H PRN (Reason: nausea and vomiting) Qty: 14 0RF insulin glargine [Lantus U-100 Insulin] 100 unit/mL Solution 10 unit subcut BEDTIME Qty: 10 0RF omeprazole 40 mg capsule,delayed release(DR/EC) 40 mg PO QAM ferrous sulfate 324 mg (65 mg iron) tablet,delayed release (DR/EC) 324 mg PO Q OTHER DAY lidocaine [Lidocaine Pain Relief] 4 % Adhesive Patch,Medicated 1 patch transdermal DAILY Qty: 30 0RF Protocol: Apply to: Apply to: upper back gabapentin 100 mg Capsule 100 mg PO TID Qty: 90 0RF Lokelma 10 gram Powder In Packet 10 g PO DAILY Qty: 30 0RF amoxicillin-pot clavulanate 875-125 mg tablet 1 tab PO BID Qty: 14 0RF azithromycin 250 mg tablet See Rx Instructions .ROUTE .COMPLEX Qty: 6 0RF Rx Instructions: For 250 mg dose pack: take 500 mg today (day 1), then 250 mg for 4 days (days 2-5) Print Language: Amharic
[2024-05-30 16:41] LABS: Basophils Percent Auto 0.1 % (0-2); Eosinophils Percent Auto 0.4 % (0-4); Hematocrit 22.9 % (37.0-47.0); Hemoglobin 7.5 g/dl (12.0-16.0); Imm Gran Abs Auto 0.03 X10*3/uL (0.00-0.03); Imm Gran Pct Auto 0.4 % (0.0-0.4); Lymphocytes Absolute Auto 1.3 X10*3/uL (1.2-4.9); Lymphocytes Percent Auto 18.5 % (20-40); Mean Corpuscular HGB Conc 32.8 g/dl (31.0-35.0); Mean Corpuscular Hemoglobin 29.1 pg (27.0-33.0); Mean Corpuscular Volume 88.8 fL (80.0-98.0); Mean Platelet Volume 8.3 fL (9.4-12.3); Monocytes Absolute Auto 0.3 X10*3/uL (0.1-1.2); Monocytes Percent Auto 4.7 % (2-11); Neutrophils Absolute Auto 5.4 x10*3/uL (2.0-8.3); Neutrophils Percent Auto 75.9 % (45-73); Platelet Count 161 X10*3/uL (160-400); Red Blood Count 2.58 X10*6/uL (4.20-5.50); Red Cell Distribution Width 14.6 % (11.0-16.0); White Blood Count 7.2 X10*3/uL (4.8-10.8)
[2024-05-30] MEDS: ondansetron HCL 4 MG/2 ML VIAL IVPUSH (16:43)
--- NOTE | 2024-05-30 16:44 | PC.NURSE ---
patient a&ox3, vss, iv inserted, labs drawn, swab obtained, pt c/o nausea- medicated for nausea per order, will notify tech we need ekg as well, plan of care ongoing
[2024-05-30 16:50] LABS: Alanine Aminotransferase 69 U/L (0-31); Albumin Level 3.1 g/dL (3.5-5.0); Alkaline Phosphatase 211 U/L (39-117); Anion Gap 10 (12-20); Aspartate Amino Transferase 40 U/L (5-31); Bilirubin Total 0.3 mg/dL (0.0-1.0); Blood Urea Nitrogen 50 mg/dL (9-16); Calcium 8.6 mg/dL (8.4-10.2); Carbon Dioxide 21 mmol/L (22-29); Chloride 110 mmol/L (96-108); Creatinine Clr Calc Pharmacy 28.2; Estimated Glomerular Filt Rate 24; Glucose Random 151 mg/dL (60-115); Lipase 12 U/L (8-78); Potassium 4.9 mmol/L (3.3-5.1); Sodium 136 mmol/L (135-145); Total Protein 7.7 g/dL (6.5-8.0)
[2024-05-30 17:13] LABS: Influenza A PCR NEGATIVE (Negative); Influenza B PCR NEGATIVE (Negative); Resp Syncy Virus RNA Qual PCR NEGATIVE (Negative); SARS COV2 PCR INHOUSE NEGATIVE (Negative)
[2024-05-30 17:53] LABS: B Type Natriuretic Peptide 1309 pg/mL (<100)
[2024-05-30 20:00] LABS: Troponin-I High Sensitivity 15.2 ng/L (<3.5-17.0)
[2024-05-30] MEDS: Furosemide 40 MG/4 ML VIAL IVPUSH (21:08)
[2024-05-30 21:09] VITALS: BP 176/81; PULSE 90; RESP 18; O2SAT 95
[2024-05-30 23:31] VITALS: O2SAT 87
[2024-05-31] VITALS (7 sets, daily range): BP systolic 142–171; BP diastolic 62–77; PULSE 75–92; RESP 12–20; TEMP 36.6–36.9; O2SAT 96–100; BMI 21.0; BMI 21.9
--- NOTE | 2024-05-31 00:38 | P.HPHOSP_ITS ---
History of Present Illness Date of Service: 05/31/24 Attending physician on admission: Mickie Gómez Chief Complaint: Nausea, vomiting and diarrhea Queta Loya is a 54 years old woman with past medical history significant for COPD on home oxygen 2-3L/min, chronic systolic and diastolic congestive heart failure and pleural effusions (requiring thoracentesis in the past), diabetes mellitus on insulin, chronic anemia requiring blood transfusion in the past, essential hypertension and hyperlipidemia presents to the emergency department pain of 3 days' history of multiple events of vomiting, nausea and watery nonbloody diarrhea. She feels very dizzy and generalized weak. She did not report fevers or chills. She denied abdominal pain. She denies taking blood thinners except for aspirin. The patient has quite a bit historian. She denied tobacco smoking, alcohol abuse or illicit drug abuse. She also denied recent contact with ill people or recent use of antibiotics. Her most recent hospitalization was April 2024 for bacteremia/UTI secondary to Serratia marcescens. During the hospitalization she was transfused with 1 unit of PRBCs and her anemia was considered to be chronic secondary to underlying CKD. In the ED, she was found to have oxygen saturation 87% on 2 L/min via nasal cannula (her baseline), not requiring 3 L/min. There is no tachycardia, hypotension fever or tachypnea. Blood workup showed no leukocytosis. Hemoglobin dropped from 8.3 --> 7.5 over the last 2 weeks). Platelets are normal. INR is 1.0. BUN is 15 and creatinine 2.16 which is around baseline. There are no significant electrolyte imbalances except for hyperchloremia. Glucose is 151. Transaminases and alk-phos are elevated with normal bilirubin and lipase. Troponin is 15.2 which is around her baseline. BNP is 1309 (prior 375). Urinalysis not available. Viral testing for COVID-19, RSV influenza is negative. CXR showed today showed rdwyxymu-vw-sowxp bilateral pleural effusion has developed with perihilar and bilateral lower lung opacities. ECG showed normal sinus rhythm, heart rate 92 bpm without ischemic changes. ED tx: Zofran 4 mg IV, furosemide 40 mg IV Review of Systems 2 Review of Systems: Somewhat limited as the patient is a vague historian. [facility] Medical History (Updated 05/31/24 @ 01:21 by Mickie Gómez MD) Anemia CHF (congestive heart failure) Urinary tract infection Hypertension Symptomatic anemia Brain lesion Iron deficiency anemia HLD (hyperlipidemia) Depression Type 2 diabetes mellitus Family History Other Hypertension Social History Household Members: Children Household Members Other:: Daughter Housing: Apartment Do you presently have visiting nurse or other home services: Yes Unable to assess alcohol history related to: Unable to respond Alcohol intake: former Patient Tobacco Use Status: Never used Tobacco Smoked in Last 30 Days: No e-Cigarette/Vaping Use: Never Used Second Hand Smoke Exposure: No Use of substances other than those prescribed or required for medical reasons: No Advance Directives: Yes Advance Directives on File: Yes Advance Directives Date on File: 06/19/21 Do you have a plan to hurt others: No Plan Patient : No service: No Current occupational status: unemployed Meds Allergies Allergy/AdvReac Type Severity Reaction Status Date / Time shrimp Allergy Swelling Verified 05/30/24 16:14 Active Medications: Current Medications Acetaminophen (Acetaminophen 325 Mg Tablet) 975 mg PO Q6H PRN PRN Reason: Pain, Mild 1-3,fever,headache Furosemide (Furosemide 40 Mg/4 Ml Vial) 40 mg IVPUSH BID JM; Protocol Sodium Chloride (0.9 % Sodium Chloride Flush 3 Ml Syringe) 3 ml IVFLUSH QSHIFT [facility] Home Medications ?Medication ?Instructions ?Recorded ?Confirmed ?Last Taken ?Type aspirin 81 mg tablet,delayed 1 tab PO DAILY@0900 07/21/22 04/07/24 02/07/24 History release ferrous sulfate 324 mg (65 mg 324 mg PO Q OTHER DAY 04/07/24 04/07/24 Unknown History iron) tablet,delayed release omeprazole 40 mg capsule,delayed 40 mg PO QAM 04/07/24 04/07/24 Unknown History release Physical Exam 2 Vital Signs and Narrative: Vital Signs: Last Vital Signs Temp 97.7 F 05/30/24 16:10 Pulse 90 05/30/24 21:09 Resp 18 05/30/24 21:09 BP 176/81 H 05/30/24 21:09 Pulse Ox 87 L 05/30/24 23:31 O2 Del Method Nasal Cannula 05/30/24 23:31 O2 Flow Rate 2 05/30/24 23:31 Oxygen Flow Rate 4 05/30/24 16:10 BMI result Body Mass Index 21.0 Constitutional - Awake and Alert, looks uncomfortable because her perirectal area is sore. Pleasant. Cooperative. HEENT - PERRL, EOMI. Dry oral mucosa. Heart - RRR, )+( Lungs - Normal lung expansion, Normal respiratory effort, No respiratory distress. Decreased breath sound at bases. Mild end expiratory wheezes. No crackles. No rhonchi. Abdomen - NT / ND; increased BS; No rebound or guarding Extremities - no calf tenderness bilaterally, no swelling Musculoskeletal - Normal inspection, normal ROM Skin - Warm/Dry. No pallor. No jaundice. Neurological - Alert & oriented x3. No focal weakness grossly noted. Psychological - Depressed affect Results Labs 05/30/24 16:29 05/30/24 16:29 Labs: Laboratory Results - last 24 hr 05/30/24 05/30/24 16:29 19:30 MCV 88.8 MCH 29.1 MCHC 32.8 RDW 14.6 Plt Count 161 MPV 8.3 L Immature Gran % (Auto) 0.4 Neut % (Auto) 75.9 H Lymph % (Auto) 18.5 L [place] % (Auto) 4.7 Eos % (Auto) 0.4 Baso % (Auto) 0.1 Lymph # (Auto) 1.3 [place] # (Auto) 0.3 Eos # (Auto) 0.0 Baso # (Auto) 0.0 Abs Immat Gran (auto) 0.03 Absolute Neuts (auto) 5.4 Absolute Nucleated RBC 0.000 Nucleated RBC % (auto) 0.0 PT 12.0 INR 1.0 Anion Gap 10 L Estim Creat Clear Calc 28.2 Estimated GFR 24 Random Glucose 151 H Calcium 8.6 D Total Bilirubin 0.3 AST 40 H ALT 69 H Alkaline Phosphatase 211 H Troponin I High Sens 15.2 B-Natriuretic Peptide 1309 H Total Protein 7.7 Albumin 3.1 L Lipase 12 Influenza Type A (PCR) NEGATIVE Influenza Type B (PCR) NEGATIVE RSV RNA Qual (PCR) NEGATIVE SARS-CoV-2 RNA (RT-PCR) NEGATIVE Assessment and Plan (1) Acute on chronic hypoxic respiratory failure: Status: Acute (2) Acute on chronic systolic and diastolic heart failure, NYHA class 1: Status: Acute (3) Bilateral pleural effusion: Status: Acute (4) Anemia: Qualifiers: Anemia type: unspecified type Qualified Code(s): D64.9 - Anemia, unspecified Status: Acute Plan Queta Loya is a 54 y/o woman admitted with: * Hypoxic respiratory failure secondary to acute on chronic diastolic and systolic congestive heart failure (TTE February 2024 EF 45-50) associated with qtguivse-dn-ujayp bilateral pleural effusions in the setting of acute COPD exacerbation. Telemetry. Pulse oximetry. Supplemental O2 to keep O2 sats 90-92%. Lasix 60 mg IV twice daily. Bronchodilator therapy as needed for wheezing. Daily weight. Intake and output. IR consult for therapeutic thoracentesis. * Worsening anemia, unclear etiology. Check stool for occult blood -done and results are pending. Start treatment with Protonix 40 mg IV twice daily. Continue to monitor for now. If it continue to trend down < 7.0 -will transfuse PRBCs and consider GI consult. * Acute gastroenteritis, possible viral. Check Cdiff and GI panel. Gentle oral hydration and supportive therapy as needed. * CKD stage 4. Renal function at baseline. Continue to monitor. Avoid nephrotoxic agents if possible. * Type 2 diabetes mellitus. BG checks before meals at bedtime. Insulin sliding scale only for now. Diabetic diet. * Elevated transaminases and alk-phos with normal bilirubin and lipase + history of chronic CBD dilatation. No abdominal pain reported. Outpatient MRI has been recommended by GI service in the past. Continue to monitor LFTs for now. * Essential hypertension. Continue amlodipine. * Hyperlipidemia. Statin on hold due to elevated transaminases. * Diabetic neuropathy. Continue gabapentin. DVT prophylaxis: SCDs Code status: Full Patient will need hospitalization for at least 2 midnights for hypoxic respiratory failure secondary to decompensated CHF, pleural effusion and COPD exacerbation treatment with bronchodilator therapy, supplemental oxygen, IV diuresis and possible thoracentesis. Quality Stroke Does the patient have a stroke diagnosis?: No VTE Prior VTE?: No VTE Risk Level:: Medical - moderate - high VTE Device Contraindication: N/A - Device Ordered VTE Drug Contraindication: Treatment Not Indicated
[2024-05-31] MEDS: Pantoprazole Sodium 40 MG/10 ML VIAL IVPUSH (01:42)
[2024-05-31] MEDS: Loperamide HCl 2 MG CAPSULE PO (01:42)
[2024-05-31] MEDS: methylPREDNISolone Sod Succ 125 MG/2 ML VIAL 60 MG IVPUSH (01:46)
[2024-05-31 02:07] LABS: OBS Int Ctl Valid YES; OBS1 NEGATIVE (NEGATIVE)
[2024-05-31] MEDS: Gabapentin 100 MG CAPSULE 200 MG PO (05:29)
[2024-05-31] MEDS: Acetaminophen 1,000 MG/100 ML PIGGYBACK 400 MG IV (05:29)
[2024-05-31 06:00] LABS: MANUAL DIFF FLAG NO
[2024-05-31 06:02] LABS: Basophils Percent Auto 0.1 % (0-2); Eosinophils Percent Auto 0.1 % (0-4); Hematocrit 24.6 % (37.0-47.0); Hemoglobin 8.2 g/dl (12.0-16.0); Imm Gran Abs Auto 0.05 X10*3/uL (0.00-0.03); Imm Gran Pct Auto 0.6 % (0.0-0.4); Lymphocytes Absolute Auto 0.9 X10*3/uL (1.2-4.9); Mean Corpuscular HGB Conc 33.3 g/dl (31.0-35.0); Mean Corpuscular Hemoglobin 29.5 pg (27.0-33.0); Mean Corpuscular Volume 88.5 fL (80.0-98.0); Mean Platelet Volume 8.4 fL (9.4-12.3); Monocytes Absolute Auto 0.2 X10*3/uL (0.1-1.2); Monocytes Percent Auto 1.8 % (2-11); Neutrophils Absolute Auto 7.2 x10*3/uL (2.0-8.3); Neutrophils Percent Auto 86.4 % (45-73); Platelet Count 167 X10*3/uL (160-400); Red Blood Count 2.78 X10*6/uL (4.20-5.50); Red Cell Distribution Width 14.7 % (11.0-16.0); White Blood Count 8.3 X10*3/uL (4.8-10.8)
[2024-05-31 06:28] LABS: Alanine Aminotransferase 57 U/L (0-31); Albumin Level 3.1 g/dL (3.5-5.0); Alkaline Phosphatase 196 U/L (39-117); Anion Gap 13 (12-20); Aspartate Amino Transferase 30 U/L (5-31); Bilirubin Total 0.3 mg/dL (0.0-1.0); Blood Urea Nitrogen 49 mg/dL (9-16); Calcium 8.7 mg/dL (8.4-10.2); Carbon Dioxide 20 mmol/L (22-29); Chloride 109 mmol/L (96-108); Creatinine Clr Calc Pharmacy 25.8; Estimated Glomerular Filt Rate 21; Glucose Random 175 mg/dL (60-115); Magnesium 2.8 mg/dL (1.6-2.6); Potassium 5.3 mmol/L (3.3-5.1); Sodium 137 mmol/L (135-145); Total Protein 7.8 g/dL (6.5-8.0)
--- NOTE | 2024-05-31 09:14 | PHA.MEDREC ---
Pharmacy Consult ? Medication Reconciliation Pharmacy has completed the medication reconciliation. Spoke to the patient's son Bin to confirm meds. Pt no longer on furosemide, lidocaine patch, losartan, or lokelma.
[2024-05-31 09:33] LABS: Glucose, Whole Blood 172 mg/dL (60-115)
[2024-05-31] MEDS: Insulin Lispro 100 UNIT/ML 3 ML VIAL SUBCUT ×4 (09:34→20:35)
[2024-05-31] MEDS: 0.9 % Sodium Chloride Flush 3 ML SYRINGE IVFLUSH ×3 (09:36→20:32)
[2024-05-31] MEDS: Furosemide 100 MG/10 ML VIAL 60 MG IVPUSH ×2 (09:39→16:44)
--- NOTE | 2024-05-31 09:43 | PC.NURSE ---
pt is alert and oriented, skin sightly pale, respirations even and unlabored, ls diminished, pt denies pain at this time, ns on the monitor, vs stable, sating 100-99 on 3l via nasal cannula
--- NOTE | 2024-05-31 13:06 | P.EN_ITS ---
Event Note Date of Service: 05/31/24 Event Note: Patient seen/examined, labs, medication and imagings reviewed and vitals reviewed General: AO X 3, no acute distress Resp: CTA bilateral CVS: S1,S2,RRR, 1+ leg edema GI: +BS, NT, no distention Skin: No rash Neuro: motor grossly intact Psych: appropriate affect 54 /F history significant for COPD on home oxygen 2-3L/min, chronic systolic and diastolic congestive heart failure and pleural effusions (requiring th oracentesis in the past), diabetes mellitus on insulin, chronic anemia requiring blood transfusion in the past, essential hypertension and hyperlipidemia here with with Acute hypoxic respiratory failure secondary to acute on chronic HFpEF (TTE February 2024 EF 45-50) with gallo moderate gallo P. effusion, copd exacerbation -IV Lasix for heart failure, monitor I/O, daily weight, BMP and BNP P. effusion d/t CHF -repeat CXR after diuresisis and if not better then thoracentesis Worsening anemia, unclear etiology. Check stool for occult blood - done and results are pending. IV Protonix 40 mg IV twice daily. Continue to monitor for now. If it continues to trend down < 7.0, will transfuse PRBCs and consider GI consult. Acute gastroenteritis, possible viral. Check Cdiff and GI panel. Gentle oral hydration and supportive therapy as needed. CKD stage 4. Renal function at baseline. Continue to monitor. Avoid nephrotoxic agents if possible. Type 2 diabetes mellitus. -Lantus + SSI, and diabetic diet Elevated transaminases and alk-phos with normal bilirubin and lipase + history of chronic CBD dilatation. No abdominal pain reported. Outpatient MRI has been recommended by GI service in the past. Continue to monitor LFTs for now. Essential hypertension. Continue amlodipine. Hyperlipidemia. Statin on hold due to elevated transaminases. Diabetic neuropathy. Continue gabapentin Diabetic neuropathy. Continue gabapentin. DVT prophylaxis: SCDs, d/t anemia Full code Time Spent With Patient Time: Total time managing care of this patient today ____ minutes.
[2024-05-31 14:06] LABS: Glucose, Whole Blood 173 mg/dL (60-115)
[2024-05-31] MEDS: amLODIPine Besylate 10 MG TABLET PO (14:09)
[2024-05-31] MEDS: Ferrous Sulfate 324 MG TABLET.DR PO (14:09)
[2024-05-31 14:44] LABS: Appearance Urine Cloudy; Color Urine Yellow; Glucose Urine UA Negative (Negative); Leukocyte Esterase Urine Moderate (2+) (Negative); Nitrite Urine Negative (Negative); UMIC TRIGGER UACC YES; Urine Blood Small (1+) (Negative); Urine Ketones Negative (Negative); Urine Protein 100 (2+) mg/dL (Neg-Trace)
[2024-05-31 14:56] LABS: Bacteria Urine 4+ (None Seen); UACC Culture Trigger YES
--- NOTE | 2024-05-31 15:07 | MHC.CM.PN ---
This CM met with pt with the assistance of a media strategist. Pt states she lives with her son, and has [employer] [facility], she states she uses a rollater walker. Pt will need a BLS transport home at discharge. HCP on file and verified. PCP: Dr. Neelima Al
[2024-05-31 16:34] LABS: Glucose, Whole Blood 162 mg/dL (60-115)
[2024-05-31] MEDS: Insulin Glargine,Hum.rec.anlog 100 UNIT/ML 10 ML VIAL 10 UNIT SUBCUT (20:31)
[2024-05-31] MEDS: Gabapentin 100 MG CAPSULE PO (20:31)
[2024-06-01] VITALS (14 sets, daily range): BP systolic 125–154; BP diastolic 54–74; PULSE 73–87; RESP 12–20; TEMP 36.1–37.4; O2SAT 90–97; BMI 21.2
[2024-06-01] MEDS: Omeprazole 40 MG CAPSULE.DR PO (05:09)
[2024-06-01 07:01] LABS: B Type Natriuretic Peptide 841 pg/mL (<100)
[2024-06-01 07:09] LABS: Glucose, Whole Blood 217 mg/dL (60-115)
[2024-06-01 07:21] LABS: Anion Gap 12 (12-20); Blood Urea Nitrogen 51 mg/dL (9-16); Calcium 8.5 mg/dL (8.4-10.2); Carbon Dioxide 23 mmol/L (22-29); Chloride 109 mmol/L (96-108); Creatinine Clr Calc Pharmacy 26.5; Estimated Glomerular Filt Rate 22; Glucose Random 125 mg/dL (60-115); Sodium 139 mmol/L (135-145)
[2024-06-01 07:25] LABS: Glucose, Whole Blood 109 mg/dL (60-115)
[2024-06-01] MEDS: amLODIPine Besylate 10 MG TABLET PO (07:57)
[2024-06-01] MEDS: Furosemide 100 MG/10 ML VIAL 60 MG IVPUSH ×2 (07:58→16:58)
[2024-06-01] MEDS: 0.9 % Sodium Chloride Flush 3 ML SYRINGE IVFLUSH ×3 (08:02→22:05)
[2024-06-01] MEDS: Lidocaine HCl 1 % MPF 5 ML VIAL SUBCUT (09:19)
--- NOTE | 2024-06-01 09:32 | PM.PROC ---
Brief Operative Note Date of procedure: 06/01/24 Pre-op diagnosis: Bilateral pleural effusions (L>R) Post-op diagnosis: same Procedure: US left thoracentesis -900 cc ashish fluid removed without immediate complications. US demonstrates small to moderate right effusion.
--- NOTE | 2024-06-01 11:21 | MHC.CM.PN ---
Addendum entered by Cinthya Ferrell RN 06/01/24 13:29: CM RECEIVED MESSAGE FROM MIKEL ARCHIBALD, REFERRAL PLACED, PT IS ACTIVE W/SN/OT/PT. Original Note: EMR REVIEWED, PT W/HYPOXIC RESP FAILURE D/T BILAT PLEURAL EFFUSIONS, PT S/P L THORACENTESIS TODAY 06/01, REMAINS ON IV LASIX BID, NO PLAN FOR DC AT THIS TIME, CM WILL CONT TO FOLLOW DC NEEDS.
[2024-06-01 11:29] LABS: Glucose, Whole Blood 168 mg/dL (60-115)
[2024-06-01] MEDS: Insulin Lispro 100 UNIT/ML 3 ML VIAL SUBCUT ×3 (11:47→22:04)
--- NOTE | 2024-06-01 13:07 | P.PNIM_ITS ---
Subjective Subjective Date of Service: 06/01/24 Interval History: Doing better, no sob. No nausea or vomitting Physical Exam 2 Vital Signs: Vital Signs: Last Vital Signs Temp 97.9 F 06/01/24 11:34 Pulse 74 06/01/24 11:34 Resp 16 06/01/24 11:34 BP 126/54 L 06/01/24 11:34 Pulse Ox 94 06/01/24 11:34 O2 Del Method Room Air 06/01/24 11:34 O2 Flow Rate 0 06/01/24 09:35 Oxygen Flow Rate 4 05/30/24 16:10 BMI result Body Mass Index 21.2 Const: Other: General: AO X 3, no acute distress Resp: CTA bilateral CVS: S1,S2,RRR GI: +BS, NT, no distention Skin: No rash Neuro: motor grossly intact Psych: appropriate affect Objective Data Active Medications Acetaminophen (Acetaminophen 325 Mg Tablet) 975 mg PO Q6H PRN PRN Reason: Pain, Mild 1-3,fever,headache Amlodipine Besylate (Amlodipine Besylate 10 Mg Tablet) 10 mg PO DAILY [facility]; Protocol Last Admin: 06/01/24 07:57 Dose: 10 mg Documented By: LUDY Ferrous Sulfate (Ferrous Sulfate 324 Mg Tablet.) 324 mg PO Q48H [facility] Last Admin: 05/31/24 14:09 Dose: 324 mg Documented By: CATARINA Furosemide (Furosemide 100 Mg/10 Ml Vial) 60 mg IVPUSH BID@0800,1700 [facility]; Protocol Last Admin: 06/01/24 07:58 Dose: 60 mg Documented By: LUDY Gabapentin (Gabapentin 100 Mg Capsule) 100 mg PO BEDTIME [facility] Last Admin: 05/31/24 20:31 Dose: 100 mg Documented By: JASS Glucose (Glucose Gel 15 Gm Gel..Gram.) 15 gm PO Q15M PRN; Protocol PRN Reason: per Hypoglycemia Standing Ord. Dextrose (D10) 250 mls @ 750 mls/hr IV Q15M PRN; Protocol PRN Reason: per Hypoglycemia Standing Ord. Insulin Glargine (Insulin Glargine,Hum.Rec.Anlog 100 Unit/Ml 10 Ml Vial) 10 unit SUBCUT BEDTIME [facility] Last Admin: 05/31/24 20:31 Dose: 10 unit Documented By: JASS Insulin Human Lispro (Insulin Lispro 100 Unit/Ml 3 Ml Vial) 0 unit SUBCUT QIDACHS [facility]; Protocol Last Admin: 06/01/24 11:47 Dose: 2 unit Documented By: LUDY Lactulose (Lactulose 20 Gm/30 Ml Solution) 10 gm PO BID PRN PRN Reason: constipation Levalbuterol HCl (Levalbuterol Hcl 1.25 Mg/3 Ml Vial.Avila) 1.25 mg INHALE Q3H PRN PRN Reason: Wheezing Omeprazole (Omeprazole 40 Mg Capsule.) 40 mg PO DAILY@0630 [facility] Last Admin: 06/01/24 05:09 Dose: 40 mg Documented By: JASS Sodium Chloride (0.9 % Sodium Chloride Flush 3 Ml Syringe) 3 [facility] Last Admin: 06/01/24 08:02 Dose: 3 ml Documented By: LUDY Labs 05/31/24 05:23 06/01/24 05:52 Labs: Laboratory Results - last 24 hr 05/31/24 05/31/24 05/31/24 14:02 14:34 16:30 Anion Gap Estim Creat Clear Calc Estimated GFR POC Glucose 173 H 162 H Random Glucose Calcium B-Natriuretic Peptide Urine Color Yellow Urine Appearance Cloudy Urine pH 5.0 Ur Specific Dwarf 1.010 Urine Protein 100 (2+) H Urine Glucose (UA) Negative Urine Ketones Negative Urine Blood Small (1+) H Urine Nitrite Negative Ur Leukocyte Esterase Moderate (2+) H Urine RBC 6-10 H Urine WBC 11-20 H Ur Squamous Epith Cells 3-5 Urine Bacteria 4+ Hyaline Casts 6-10 Urine Yeast Present 05/31/24 06/01/24 06/01/24 20:23 05:52 07:21 Anion Gap 12 Estim Creat Clear Calc 26.5 Estimated GFR 22 POC Glucose 217 H 109 Random Glucose 125 H Calcium 8.5 B-Natriuretic Peptide 841 H Urine Color Urine Appearance Urine pH Ur Specific Dwarf Urine Protein Urine Glucose (UA) Urine Ketones Urine Blood Urine Nitrite Ur Leukocyte Esterase Urine RBC Urine WBC Ur Squamous Epith Cells Urine Bacteria Hyaline Casts Urine Yeast 06/01/24 11:25 Anion Gap Estim Creat Clear Calc Estimated GFR POC Glucose 168 H Random Glucose Calcium B-Natriuretic Peptide Urine Color Urine Appearance Urine pH Ur Specific Dwarf Urine Protein Urine Glucose (UA) Urine Ketones Urine Blood Urine Nitrite Ur Leukocyte Esterase Urine RBC Urine WBC Ur Squamous Epith Cells Urine Bacteria Hyaline Casts Urine Yeast Microbiology Microbiology Results: Microbiology 05/31/24 15:32 Urine Culture - Preliminary Urine clean catch - Clean Catch Midstream Culture in progress. Assessment and Plan (1) Bilateral pleural effusion: Status: Acute (2) Acute and chronic respiratory failure with hypoxia: Status: Acute (3) Vomiting: Status: Acute Plan 54 /F history significant for COPD on home oxygen 2-3L/min, chronic systolic and diastolic congestive heart failure and pleural effusions (requiring thoracentesis in the past), diabetes mellitus on insulin, chronic anemia requiring blood transfusion in the past, essential hypertension and hyperlipidemia here with with Acute hypoxic respiratory failure secondary to acute on chronic HFpEF (TTE February 2024 EF 45-50) with gallo moderate gallo P. effusion, copd exacerbation -hypoxia resolved. -IV Lasix for heart failure, monitor I/O, -daily weight, BMP -BNP trending down P. effusion d/t CHF -s/p L thoracentesis with 900 cc removal today Worsening anemia, unclear etiology. Check stool for occult blood - done and results are pending. IV Protonix 40 mg IV twice daily. Continue to monitor for now. If it continues to trend down < 7.0, will transfuse PRBCs and consider GI consult. Acute gastroenteritis, possible viral. No longer having symptoms and toleraing regular diet. DC Check Cdiff and GI panel. Gentle oral hydration and supportive therapy as needed. CKD stage 4. Renal function at baseline. Continue to monitor. Avoid nephrotoxic agents if possible. Type 2 diabetes mellitus. -Lantus + SSI, and diabetic diet Elevated transaminases and alk-phos with normal bilirubin and lipase + history of chronic CBD dilatation. No abdominal pain reported. Outpatient MRI has been recommended by GI service in the past. Continue to monitor LFTs for now. Essential hypertension. Continue amlodipine. Hyperlipidemia. Statin on hold due to elevated transaminases. Diabetic neuropathy. Continue gabapentin Diabetic neuropathy. Continue gabapentin. DVT prophylaxis: SCDs, d/t anemia Full code Quality Stroke Does the patient have a stroke diagnosis?: No VTE Prior VTE?: No VTE Risk Level:: Medical - moderate - high VTE Device Contraindication: N/A - Device Ordered VTE Drug Contraindication: Treatment Not Indicated
[2024-06-01 13:30] LABS: Hematocrit 23.6 % (37.0-47.0); Hemoglobin 7.7 g/dl (12.0-16.0); Mean Corpuscular HGB Conc 32.6 g/dl (31.0-35.0); Mean Corpuscular Hemoglobin 29.2 pg (27.0-33.0); Mean Corpuscular Volume 89.4 fL (80.0-98.0); Mean Platelet Volume 8.4 fL (9.4-12.3); Platelet Count 178 X10*3/uL (160-400); Red Blood Count 2.64 X10*6/uL (4.20-5.50); Red Cell Distribution Width 14.8 % (11.0-16.0); White Blood Count 8.1 X10*3/uL (4.8-10.8)
[2024-06-01 16:24] LABS: Glucose, Whole Blood 192 mg/dL (60-115)
[2024-06-01 20:19] LABS: Glucose, Whole Blood 165 mg/dL (60-115)
[2024-06-01] MEDS: Gabapentin 100 MG CAPSULE PO (22:04)
[2024-06-01] MEDS: Insulin Glargine,Hum.rec.anlog 100 UNIT/ML 10 ML VIAL 10 UNIT SUBCUT (22:04)
[2024-06-02 04:00] VITALS: BP 150/70; PULSE 84; RESP 20; TEMP 36.6; O2SAT 95
[2024-06-02] MEDS: Omeprazole 40 MG CAPSULE.DR PO (06:30)
[2024-06-02 07:04] LABS: Glucose, Whole Blood 93 mg/dL (60-115)
[2024-06-02 07:10] VITALS: BP 157/65; PULSE 81; RESP 18; TEMP 36.8; O2SAT 94
[2024-06-02] MEDS: 0.9 % Sodium Chloride Flush 3 ML SYRINGE IVFLUSH ×2 (08:17→21:41)
[2024-06-02] MEDS: amLODIPine Besylate 10 MG TABLET PO (08:17)
[2024-06-02] MEDS: Furosemide 100 MG/10 ML VIAL 60 MG IVPUSH (08:17)
[2024-06-02 08:35] LABS: Anion Gap 11 (12-20); Blood Urea Nitrogen 45 mg/dL (9-16); Calcium 8.3 mg/dL (8.4-10.2); Carbon Dioxide 25 mmol/L (22-29); Chloride 106 mmol/L (96-108); Creatinine Clr Calc Pharmacy 31.5; Estimated Glomerular Filt Rate 27; Glucose Random 91 mg/dL (60-115); Potassium 4.1 mmol/L (3.3-5.1); Sodium 138 mmol/L (135-145)
[2024-06-02 10:58] VITALS: BP 146/69; PULSE 77; RESP 18; TEMP 36.7; O2SAT 95
[2024-06-02 10:58] LABS: MANUAL DIFF FLAG NO
[2024-06-02 11:02] LABS: Basophils Percent Auto 0.3 % (0-2); Eosinophils Absolute Auto 0.2 X10*3/uL (0.0-0.4); Eosinophils Percent Auto 2.2 % (0-4); Hematocrit 24.1 % (37.0-47.0); Hemoglobin 8.1 g/dl (12.0-16.0); Imm Gran Abs Auto 0.03 X10*3/uL (0.00-0.03); Imm Gran Pct Auto 0.4 % (0.0-0.4); Lymphocytes Absolute Auto 2.4 X10*3/uL (1.2-4.9); Lymphocytes Percent Auto 31.4 % (20-40); Mean Corpuscular HGB Conc 33.6 g/dl (31.0-35.0); Mean Corpuscular Hemoglobin 29.6 pg (27.0-33.0); Mean Platelet Volume 8.6 fL (9.4-12.3); Monocytes Absolute Auto 0.5 X10*3/uL (0.1-1.2); Monocytes Percent Auto 6.6 % (2-11); Neutrophils Absolute Auto 4.5 x10*3/uL (2.0-8.3); Neutrophils Percent Auto 59.1 % (45-73); Platelet Count 207 X10*3/uL (160-400); Red Blood Count 2.74 X10*6/uL (4.20-5.50); Red Cell Distribution Width 14.6 % (11.0-16.0); White Blood Count 7.7 X10*3/uL (4.8-10.8)
[2024-06-02 11:03] LABS: Glucose, Whole Blood 134 mg/dL (60-115)
--- NOTE | 2024-06-02 11:18 | HO.PM.IMPN ---
Subjective Subjective Date of Service: 06/02/24 Interval History: Doing better, no sob. No nausea or vomitting no sob breath, urine culture growing gram negative savi Physical Exam Vital Signs: Vital Signs: Last Vital Signs Temp 98.0 F 06/02/24 10:58 Pulse 77 06/02/24 10:58 Resp 18 06/02/24 10:58 BP 146/69 H 06/02/24 10:58 Pulse Ox 95 06/02/24 10:58 O2 Del Method Room Air 06/02/24 10:58 O2 Flow Rate 0 06/01/24 09:35 Oxygen Flow Rate 4 05/30/24 16:10 BMI result Body Mass Index 21.2 Const: Other: General: AO X 3, no acute distress Resp: CTA bilateral CVS: S1,S2,RRR GI: +BS, NT, no distention Skin: No rash Neuro: motor grossly intact Psych: appropriate affect Objective Data Active Medications Acetaminophen (Acetaminophen 325 Mg Tablet) 975 mg PO Q6H PRN PRN Reason: Pain, Mild 1-3,fever,headache Amlodipine Besylate (Amlodipine Besylate 10 Mg Tablet) 10 mg PO DAILY [facility]; Protocol Last Admin: 06/02/24 08:17 Dose: 10 mg Documented By: ALLAN Ferrous Sulfate (Ferrous Sulfate 324 Mg Tablet.Dr) 324 mg PO Q48H [facility] Last Admin: 05/31/24 14:09 Dose: 324 mg Documented By: CATARINA Furosemide (Furosemide 100 Mg/10 Ml Vial) 60 mg IVPUSH BID@0800,1700 [facility]; Protocol Last Admin: 06/02/24 08:17 Dose: 60 mg Documented By: ALLAN Gabapentin (Gabapentin 100 Mg Capsule) 100 mg PO BEDTIME [facility] Last Admin: 06/01/24 22:04 Dose: 100 mg Documented By: MEL-DENIS Glucose (Glucose Gel 15 Gm Gel..Gram.) 15 gm PO Q15M PRN; Protocol PRN Reason: per Hypoglycemia Standing Ord. Dextrose (D10) 250 mls @ 750 mls/hr IV Q15M PRN; Protocol PRN Reason: per Hypoglycemia Standing Ord. Insulin Glargine (Insulin Glargine,Hum.Rec.Anlog 100 Unit/Ml 10 Ml Vial) 10 unit SUBCUT BEDTIME [facility] Last Admin: 06/01/24 22:04 Dose: 10 unit Documented By: JUSTIN Insulin Human Lispro (Insulin Lispro 100 Unit/Ml 3 Ml Vial) 0 unit SUBCUT QIDACHS [facility]; Protocol Last Admin: 06/02/24 07:54 Dose: Not Given Documented By: ALLAN Non-Admin Reason: No Insulin Coverage Lactulose (Lactulose 20 Gm/30 Ml Solution) 10 gm PO BID PRN PRN Reason: constipation Levalbuterol HCl (Levalbuterol Hcl 1.25 Mg/3 Ml Vial.Avila) 1.25 mg INHALE Q3H PRN PRN Reason: Wheezing Omeprazole (Omeprazole 40 Mg Capsule.) 40 mg PO DAILY@0630 [facility] Last Admin: 06/02/24 06:30 Dose: 40 mg Documented By: JUSTIN Sodium Chloride (0.9 % Sodium Chloride Flush 3 Ml Syringe) 3 ml IVFLUSH QSHIFT [facility] Last Admin: 06/02/24 08:17 Dose: 3 ml Documented By: ALLAN Labs 06/02/24 06:45 06/02/24 06:45 Labs: Laboratory Results - last 24 hr 06/01/24 06/01/24 06/01/24 11:25 13:22 16:20 MCV 89.4 MCH 29.2 MCHC 32.6 RDW 14.8 Plt Count 178 MPV 8.4 L Immature Gran % (Auto) Neut % (Auto) Lymph % (Auto) [place] % (Auto) Eos % (Auto) Baso % (Auto) Lymph # (Auto) [place] # (Auto) Eos # (Auto) Baso # (Auto) Abs Immat Gran (auto) Absolute Neuts (auto) Absolute Nucleated RBC 0.000 Nucleated RBC % (auto) 0.0 Hold Purple Top Anion Gap Estim Creat Clear Calc Estimated GFR POC Glucose 168 H 192 H Random Glucose Calcium 06/01/24 06/02/24 06/02/24 20:15 06:45 07:00 MCV 88.0 MCH 29.6 MCHC 33.6 RDW 14.6 Plt Count 207 MPV 8.6 L Immature Gran % (Auto) 0.4 Neut % (Auto) 59.1 Lymph % (Auto) 31.4 [place] % (Auto) 6.6 Eos % (Auto) 2.2 Baso % (Auto) 0.3 Lymph # (Auto) 2.4 [place] # (Auto) 0.5 Eos # (Auto) 0.2 Baso # (Auto) 0.0 Abs Immat Gran (auto) 0.03 Absolute Neuts (auto) 4.5 Absolute Nucleated RBC 0.000 Nucleated RBC % (auto) 0.0 Hold Purple Top SEE NOTE Anion Gap 11 L Estim Creat Clear Calc 31.5 Estimated GFR 27 POC Glucose 165 H 93 Random Glucose 91 Calcium 8.3 L 06/02/24 10:49 MCV MCH MCHC RDW Plt Count MPV Immature Gran % (Auto) Neut % (Auto) Lymph % (Auto) [place] % (Auto) Eos % (Auto) Baso % (Auto) Lymph # (Auto) [place] # (Auto) Eos # (Auto) Baso # (Auto) Abs Immat Gran (auto) Absolute Neuts (auto) Absolute Nucleated RBC Nucleated RBC % (auto) Hold Purple Top Anion Gap Estim Creat Clear Calc Estimated GFR POC Glucose 134 H Random Glucose Calcium Microbiology Microbiology Results: Microbiology 05/31/24 15:32 Urine Culture - Preliminary Urine clean catch - Clean Catch Midstream Gram negative savi Assessment and Plan (1) Bilateral pleural effusion: Status: Acute (2) Acute and chronic respiratory failure with hypoxia: Status: Acute (3) Vomiting: Status: Acute Plan 54 /F history significant for COPD on home oxygen 2-3L/min, chronic systolic and diastolic congestive heart failure and pleural effusions (requiring thoracentesis in the past), diabetes mellitus on insulin, chronic anemia requiring blood transfusion in the past, essential hypertension and hyperlipidemia here with with Acute hypoxic respiratory failure secondary to acute on chronic HFpEF (TTE February 2024 EF 45-50) with gallo moderate gallo P. effusion, copd exacerbation -hypoxia resolved. -IV Lasix for heart failure, monitor I/O, change to PO Lasix -daily weight, BMP -BNP trending down P. effusion d/t CHF -s/p L thoracentesis with 900 cc removal 06/01 GNR UTI--start ceftriaxone Worsening anemia, unclear etiology. Check stool for occult blood - done and results are pending. IV Protonix 40 mg IV twice daily. H/H is within her baseline Continue to monitor for now. If it continues to trend down < 7.0, will transfuse PRBCs and consider GI consult. Acute gastroenteritis, possible viral. No longer having symptoms and toleraing regular diet. DC Check Cdiff and GI panel. Gentle oral hydration and supportive therapy as needed. CKD stage 4. Renal function at baseline. Continue to monitor. Avoid nephrotoxic agents if possible. Type 2 diabetes mellitus. -Lantus + SSI, and diabetic diet Elevated transaminases and alk-phos with normal bilirubin and lipase + history of chronic CBD dilatation. No abdominal pain reported. Outpatient MRI has been recommended by GI service in the past. Continue to monitor LFTs for now. Essential hypertension. Continue amlodipine. Hyperlipidemia. Statin on hold due to elevated transaminases. Diabetic neuropathy. Continue gabapentin Diabetic neuropathy. Continue gabapentin. DVT prophylaxis: SCDs, d/t anemia Full code Quality Stroke Does the patient have a stroke diagnosis?: No VTE Prior VTE?: No VTE Risk Level:: Medical - moderate - high VTE Device Contraindication: N/A - Device Ordered VTE Drug Contraindication: Treatment Not Indicated
--- NOTE | 2024-06-02 12:38 | P.CDIM_ITS ---
PROVIDER RESPONSE TEXT: To clarify, the appropriate diagnosis supported by the clinical indicators: Acute Respiratory failure with hypoxia: Acute and chronic hypoxic respiratory QUERY TEXT: PHYSICIAN'S DOCUMENTATION REQUEST Date of Query: 06/02/2024 09:31 AM EST Patient Name: Queta Loya Admit Date: 05/31/2024 Dear Madhu Gonzalez MD, A review of the medical record indicates additional documentation may be needed. Please review below and update the documentation accordingly. Clinical Indicators: H&P within the written Plan 05/31 - Hypoxic respiratory failure. Event note and Progress note 05/31 & 06/01 - Acute hypoxic respiratory failure secondary to acute on ch ronic HFpEF. Assessment and Plan list dated 06/01: Acute on chronic hypoxic respiratory failure. Past history for COPD on home oxygen 2-3 liters/min. If possible, please further clarify the acuity of respiratory failure within the Plan of your progres s note if you agree with the acuity in the Assessment and Plan list: Acute Respiratory failure with hypoxia Please specify acuity as Acute, Chronic, or Acute on chronic if known Other (explain) Clinically unable to determine (explain) Thank you, Brianna Nichole, CCS, CDIS Use of terms such as suspected, likely, concern for, or probable (associated with a specific diagnosi s that is being evaluated, monitored, or treated as if it exists) are acceptable and can be coded in the inpatient se tting, when documented at the time of discharge. Please use your independent medical judgment in providing your response. THIS QUERY IS PART OF THE PERMANENT MEDICAL RECORD
[2024-06-02] MEDS: cefTRIAXone sodium 1 GM VIAL IVPUSH (13:02)
[2024-06-02] MEDS: Ferrous Sulfate 324 MG TABLET.DR PO (13:02)
[2024-06-02 15:41] VITALS: BP 151/70; PULSE 86; RESP 21; TEMP 36.8; O2SAT 95
[2024-06-02 16:31] LABS: Glucose, Whole Blood 166 mg/dL (60-115)
[2024-06-02] MEDS: Insulin Lispro 100 UNIT/ML 3 ML VIAL SUBCUT (17:01)
[2024-06-02 19:50] VITALS: BP 170/80; PULSE 83; RESP 16; TEMP 37.1; O2SAT 98
[2024-06-02 20:18] LABS: Glucose, Whole Blood 141 mg/dL (60-115)
[2024-06-02] MEDS: Gabapentin 100 MG CAPSULE PO (21:40)
[2024-06-02] MEDS: Insulin Glargine,Hum.rec.anlog 100 UNIT/ML 10 ML VIAL 10 UNIT SUBCUT (21:40)
[2024-06-02 23:57] VITALS: BP 156/70; PULSE 82; RESP 16; TEMP 36.4; O2SAT 99
[2024-06-03 03:50] VITALS: BP 153/67; PULSE 83; RESP 16; TEMP 36.8; O2SAT 93
[2024-06-03] MEDS: Omeprazole 40 MG CAPSULE.DR PO (05:21)
[2024-06-03 07:00] LABS: Hematocrit 25.6 % (37.0-47.0); Hemoglobin 8.5 g/dl (12.0-16.0); Mean Corpuscular HGB Conc 33.2 g/dl (31.0-35.0); Mean Corpuscular Hemoglobin 28.9 pg (27.0-33.0); Mean Corpuscular Volume 87.1 fL (80.0-98.0); Mean Platelet Volume 8.4 fL (9.4-12.3); Platelet Count 190 X10*3/uL (160-400); Red Blood Count 2.94 X10*6/uL (4.20-5.50); Red Cell Distribution Width 14.4 % (11.0-16.0); White Blood Count 7.7 X10*3/uL (4.8-10.8)
[2024-06-03 07:13] LABS: Anion Gap 11 (12-20); Blood Urea Nitrogen 42 mg/dL (9-16); Calcium 8.8 mg/dL (8.4-10.2); Carbon Dioxide 27 mmol/L (22-29); Chloride 105 mmol/L (96-108); Creatinine Clr Calc Pharmacy 34.7; Estimated Glomerular Filt Rate 30; Glucose Random 89 mg/dL (60-115); Potassium 4.5 mmol/L (3.3-5.1); Sodium 138 mmol/L (135-145)
[2024-06-03 07:18] LABS: Glucose, Whole Blood 80 mg/dL (60-115)
[2024-06-03 07:31] VITALS: BP 158/76; PULSE 85; RESP 17; TEMP 36.6; O2SAT 98
[2024-06-03] MEDS: amLODIPine Besylate 10 MG TABLET PO (08:36)
[2024-06-03] MEDS: Furosemide 40 MG TABLET PO (08:36)
[2024-06-03] MEDS: 0.9 % Sodium Chloride Flush 3 ML SYRINGE IVFLUSH (08:36)
--- NOTE | 2024-06-03 09:19 | P.DS_ITS ---
DS: Providers Provider Date of Service: 06/03/24 Date of admission: 05/31/24 00:32 Date of discharge: 06/03/24 Primary care physician: Neelima Gómez MD DS: Diagnosis Discharge Diagnosis (1) Bilateral pleural effusion: Status: Acute (2) Acute and chronic respiratory failure with hypoxia: Status: Acute (3) Vomiting: Status: Acute DS: Summary Hospital Course Hospital Course: Admission hpi Chief Complaint: Nausea, vomiting and diarrhea Queta Loya is a 54 years old woman with past medical history significant for COPD on home oxygen 2-3L/min, chronic systolic and diastolic congestive heart failure and pleural effusions (requiring thoracentesis in the past), diabetes mellitus on insulin, chronic anemia requiring blood transfusion in the past, essential hypertension and hyperlipidemia presents to the emergency department pain of 3 days' history of multiple events of vomiting, nausea and watery nonbloody diarrhea. She feels very dizzy and generalized weak. She did not report fevers or chills. She denied abdominal pain. She denies taking blood thinners except for aspirin. The patient has quite a bit historian. She denied tobacco smoking, alcohol abuse or illicit drug abuse. She also denied recent contact with ill people or recent use of antibiotics. Her most recent hospitalization was April 2024 for bacteremia/UTI secondary to Serratia marcescens. During the hospitalization she was transfused with 1 unit of PRBCs and her anemia was considered to be chronic secondary to underlying CKD. In the ED, she was found to have oxygen saturation 87% on 2 L/min via nasal cannula (her baseline), not requiring 3 L/min. There is no tachycardia, hypotension fever or tachypnea. Blood workup showed no leukocytosis. Hemo globin dropped from 8.3 --> 7.5 over the last 2 weeks). Platelets are normal. INR is 1.0. BUN is 15 and creatinine 2.16 which is around baseline. There are no significant electrolyte imbalances except for hyperchloremia. Glucose is 151. Transaminases and alk-phos are elevated with normal bilirubin and lipase. Troponin is 15.2 which is around her baseline. BNP is 1309 (prior 375). Urinalysis not available. Viral testing for COVID-19, RSV influenza is negative. CXR showed today showed [id number] bilateral pleural effusion has developed with perihilar and bilateral lower lung opacities. ECG showed normal sinus rhythm, heart rate 92 bpm without ischemic changes. ED tx: Zofran 4 mg IV, furosemide 40 mg IV Hospital course: This patient has a history of COPD with chronic respiratory failure on home O2, congestive heart failure with systolic and diastolic dysfunction pleural effusion recurrent and has required thoracentesis in the past, chronic anemia requiring transfusion in the past. She presented to the hospital with nausea vomiting and diarrhea, and was found to have severe hypoxia with oxygen saturation in 80s, further testing or chest x-rays show a moderate to large bilateral pleural effusion, BNP was also elevated. Her symptoms of nausea vomiting rapidly improve. She probably suffered from an acute viral gastroenteritis. Her hypoxia was attributed to acute on chronic combined systolic and diastolic dysfunction and was treated with intravenous Lasix with a good effect, hypoxia has resolved. She is on no diuretics at home however will be discharged with Lasix 40 mg daily. She had a chronic anemia, there was no evidence of bleeding and her H and H has remained within her baseline. Her CKD is within baseline and will follow with nephrology on outpatient basis. She had urinalysis that was positive and culture growing E. coli and Enterococcus, streptoccus, no senstivity. She has no urinary symptoms, and no fever and likely colonization. Time Attestation Discharge Coordination Time (in mins): 45 Quality: Safe Use of Opioids Does Pt have an Active Cancer Diagnosis on the Problem List?: No Quality: Stroke Does the patient have a stroke diagnosis?: No Physical Exam Vital Signs: Vital Signs: Last Vital Signs Temp 97.9 F 06/03/24 07:31 Pulse 85 06/03/24 07:31 Resp 17 06/03/24 07:31 BP 158/76 H 06/03/24 07:31 Pulse Ox 98 06/03/24 07:31 O2 Del Method Room Air 06/03/24 07:31 O2 Flow Rate 0 06/01/24 09:35 Oxygen Flow Rate 4 05/30/24 16:10 BMI result Body Mass Index 21.2 Const: Other: General: AO X 3, no acute distress Resp: CTA bilateral CVS: S1,S2,RRR GI: +BS, NT, no distention Skin: No rash Neuro: motor grossly intact Psych: appropriate affect DS: Data Data Completed and Pending Labs on day of discharge: Laboratory Results - last 24 hr 06/02/24 06/02/24 06/02/24 06:45 10:49 16:25 WBC 7.7 RBC 2.74 L Hgb 8.1 L Hct 24.1 L MCV 88.0 MCH 29.6 MCHC 33.6 RDW 14.6 Plt Count 207 MPV 8.6 L Immature Gran % (Auto) 0.4 Neut % (Auto) 59.1 Lymph % (Auto) 31.4 Story % (Auto) 6.6 Eos % (Auto) 2.2 Baso % (Auto) 0.3 Lymph # (Auto) 2.4 Story # (Auto) 0.5 Eos # (Auto) 0.2 Baso # (Auto) 0.0 Abs Immat Gran (auto) 0.03 Absolute Neuts (auto) 4.5 Absolute Nucleated RBC 0.000 Nucleated RBC % (auto) 0.0 Sodium Potassium Chloride Carbon Dioxide Anion Gap BUN Creatinine Estim Creat Clear Calc Estimated GFR POC Glucose 134 H 166 H Random Glucose Calcium 06/02/24 06/03/24 06/03/24 20:12 06:08 07:13 WBC 7.7 RBC 2.94 L Hgb 8.5 L Hct 25.6 L MCV 87.1 MCH 28.9 MCHC 33.2 RDW 14.4 Plt Count 190 MPV 8.4 L Immature Gran % (Auto) Neut % (Auto) Lymph % (Auto) Story % (Auto) Eos % (Auto) Baso % (Auto) Lymph # (Auto) Story # (Auto) Eos # (Auto) Baso # (Auto) Abs Immat Gran (auto) Absolute Neuts (auto) Absolute Nucleated RBC 0.000 Nucleated RBC % (auto) 0.0 Sodium 138 Potassium 4.5 Chloride 105 Carbon Dioxide 27 Anion Gap 11 L BUN 42 H Creatinine 1.77 H Estim Creat Clear Calc 34.7 Estimated GFR 30 POC Glucose 141 H 80 Random Glucose 89 Calcium 8.8 D Preliminary micro results at discharge 05/31/24 15:32 Urine Culture - Preliminary Urine clean catch - Clean Catch Midstream Escherichia coli Discharge Plan Discharge Anticipated Discharge Date/Time: 06/03/24 09:39 Patient Disposition: Home, Self-Care Discharge Diagnosis: Acute on chronic combined systolic and diastolic dysfunction, chronic anemia, acute hypoxic respiratory failure, Referrals: [facility] ARCHIBALD [Outside] - 1 Week Barciona Gómez,Neelima, MD [Primary Care Provider] - 1 Week Discharge Medications: New furosemide [Lasix] 40 mg tablet 40 mg PO DAILY Qty: 90 0RF amoxicillin-pot clavulanate [Augmentin] 500-125 mg tablet 1 tab PO BID Qty: 5 0RF Continued aspirin 81 mg tablet,delayed release (DR/EC) 1 tab PO DAILY (DME) FreeStyle Test Strip See Rx Instructions .Route Qty: 100 0RF Rx Instructions: As directed amlodipine 10 mg Tablet 10 mg PO DAILY Qty: 30 0RF Protocol: Hold for SBP< HOLD for SBP < : 90 lactulose 10 gram/15 mL solution 10 g PO BID PRN (Reason: constipation) Qty: 473 0RF ondansetron 8 mg tablet,disintegrating 8 mg PO Q8H PRN (Reason: nausea/vomiting) gabapentin 100 mg capsule 100 mg PO BEDTIME insulin glargine [Lantus U-100 Insulin] 100 unit/mL Solution 10 unit subcut BEDTIME Qty: 10 0RF omeprazole 40 mg capsule,delayed release(DR/EC) 40 mg PO DAILY@0630 ferrous sulfate 324 mg (65 mg iron) tablet,delayed release (DR/EC) 324 mg PO Q OTHER DAY Discharge Orders: Discharge Order (Routine); Ordered 06/03/24 Ordered By: Madhu Gonzalez Diet: Diabetic diet Activity on Discharge: As tolerated Stand Alone Forms: Patient Portal Discharge page Print Language: French Care Plan Goals: Recovered from heart failure with acute on chronic hypoxic respiratory failure Health Concerns: Acute on chronic systolic and diastolic heart failure Acute on chronic hypoxic respiratory failure Acute on chronic renal insufficiency Pleural effusion Plan of Treatment: Take Lasix as a directed take augmentin for uti Follow-up with the cardiology clinic Assessment: See above Discharge Date/Time: 06/03/24 15:31
[2024-06-03 11:04] LABS: Glucose, Whole Blood 124 mg/dL (60-115)
[2024-06-03 11:12] VITALS: BP 145/71; PULSE 85; RESP 16; TEMP 36.4; O2SAT 97
[2024-06-03] MEDS: cefTRIAXone sodium 1 GM VIAL IVPUSH (12:30)
--- NOTE | 2024-06-03 12:30 | P.CONCA_ITS ---
History of Present Illness History of Present Illness Date of Service: 06/03/24 Chief complaint: Acute on C Systolic CHF, Acute Gastroenteritis Narrative: This is a cardiology consultation regarding congestive heart failure. Evaluated patient using filter press tender head. It seems that she has a history of COPD on home oxygen as well as chronic systolic/diastolic heart failure and pleural effusions requiring thoracentesis in the past. Many other comorbidities including diabetes, hypertension, dyslipidemia, chronic anemia, chronic kidney disease. It seems that she came in mainly for gastroenteritis type symptoms thought to be possibly viral. However, that resolved. In this context, she was found to have respiratory failure and pleural effusions. Thought to have had some COPD exacerbation. Then received IV diuretics and now she is ready for discharge. When I asked her about shortness of breath, she denies rather any symptoms along those lines. She states that at times at home she can feel short of breath but for the most part, she states she feels okay. No clear anginal- type chest pains. Currently, she states she is free of any symptoms and feels fine. Review of Systems 2 Review of Systems: Yes all other systems are reviewed and are negative Constitutional: Constitutional: Reports as per HPI and Reports no additional constitutional complaints Eyes: Eyes: Reports as per HPI and Denies no additional eye complaints ENT: Denies system reviewed and no additional complaints, except as documented and Reports as per HPI Cardiovascular: Cardiovascular: Reports as per HPI, Reports no additional cardiovascular complaints, Denies acrocyanosis, Denies cool extremities, Denies chest pain, Denies leg edema, Denies lightheadedness, Denies palpitations and Reports dyspnea Respiratory: Respiratory: Reports as per HPI, Denies no additional respiratory complaints and Reports dyspnea Gastrointestinal: Gastrointestinal: Reports as per HPI and Denies no additional gastrointestinal complaints Genitourinary: Genitourinary: Reports as per HPI Musculoskeletal: Musculoskeletal: Reports no additional musculoskeletal complaints and Reports as per HPI Integumentary/Breasts: Skin/Breast: Reports system reviewed and no additional complaints, except as docu Neurologic: Reports system reviewed and no additional complaints, except as documented and Reports as per HPI Psychiatric: Psychiatric: Reports no additional psychiatric complaints and Reports as per HPI Endocrine: Endocrine: Reports no additional endocrine complaints, Reports as per HPI and Denies palpitations Hematologic/Lymphatic: Hematologic/Lymphatic: Reports no additional hematologic/lymphatic complaints and Reports as per HPI Allergic/Immunologic: Allergic/Immunologic: Reports no additional allergic/immunologic complaints and Reports as per HPI [facility] Past Medical History Medical History (Updated 06/03/24 @ 12:38 by David Rehman MD) Anemia CHF (congestive heart failure) Urinary tract infection Hypertension Symptomatic anemia Brain lesion Iron deficiency anemia HLD (hyperlipidemia) Depression Type 2 diabetes mellitus Family History Family History Other Hypertension Social History Social History Household Members: Children Household Members Other:: Daughter Housing: Apartment Do you presently have visiting nurse or other home services: Yes (not sure who it is) Unable to assess alcohol history related to: Unable to respond Alcohol intake: former Patient Tobacco Use Status: Never used Tobacco e-Cigarette/Vaping Use: Never Used Second Hand Smoke Exposure: No Advance Directives Date on File: 06/19/21 service: No Current occupational status: unemployed Meds Allergies Allergy/AdvReac Type Severity Reaction Status Date / Time shrimp Allergy Swelling Verified 05/30/24 16:14 Active Medications: Current Medications Acetaminophen (Acetaminophen 325 Mg Tablet) 975 mg PO Q6H PRN PRN Reason: Pain, Mild 1-3,fever,headache Amlodipine Besylate (Amlodipine Besylate 10 Mg Tablet) 10 mg PO DAILY JM; Protocol Last Admin: 06/03/24 08:36 Dose: 10 mg Ceftriaxone Sodium (Ceftriaxone Sodium 1 Gm Vial) 1 gm IVPUSH Q24H JM Last Admin: 06/02/24 13:02 Dose: 1 gm Dextrose (Dextrose 50 % 25 Gm/50 Ml Syringe) 25 gm IVPUSH Q15M PRN PRN Reason: HYPOGLYCEMIA STANDING PROTOCOL Ferrous Sulfate (Ferrous Sulfate 324 Mg Tablet.Dr) 324 mg PO Q48H JM Last Admin: 06/02/24 13:02 Dose: 324 mg Furosemide (Furosemide 40 Mg Tablet) 40 mg PO DAILY JM; Protocol Last Admin: 06/03/24 08:36 Dose: 40 mg Gabapentin (Gabapentin 100 Mg Capsule) 100 mg PO BEDTIME JM Last Admin: 06/02/24 21:40 Dose: 100 mg Glucose (Glucose Gel 15 Gm Gel..Gram.) 15 gm PO Q15M PRN; Protocol PRN Reason: per Hypoglycemia Standing Ord. Insulin Glargine (Insulin Glargine,Hum.Rec.Anlog 100 Unit/Ml 10 Ml Vial) 10 unit SUBCUT BEDTIME [facility] Last Admin: 06/02/24 21:40 Dose: 10 unit Insulin Human Lispro (Insulin Lispro 100 Unit/Ml 3 Ml Vial) 0 unit SUBCUT QIDACHS [facility]; Protocol Last Admin: 06/03/24 11:35 Dose: Not Given Lactulose (Lactulose 20 Gm/30 Ml Solution) 10 gm PO BID PRN PRN Reason: constipation Levalbuterol HCl (Levalbuterol Hcl 1.25 Mg/3 Ml Vial.Neb) 1.25 mg INHALE Q3H PRN PRN Reason: Wheezing Omeprazole (Omeprazole 40 Mg Capsule.) 40 mg PO DAILY@06 [facility] Last Admin: 06/03/24 05:21 Dose: 40 mg Sodium Chloride (0.9 % Sodium Chloride Flush 3 Ml Syringe) [address] [facility] Last Admin: 06/03/24 08:36 Dose: 3 ml Home Medications ?Medication ?Instructions ?Recorded ?Confirmed ?Last Taken ?Type aspirin 81 mg tablet,delayed 1 tab PO DAILY 07/21/22 05/31/24 05/28/24 History release ferrous sulfate 324 mg (65 mg 324 mg PO Q OTHER DAY 04/07/24 05/31/24 05/28/24 History iron) tablet,delayed release omeprazole 40 mg capsule,delayed 40 mg PO DAILY@0630 04/07/24 05/31/24 05/28/24 History release gabapentin 100 mg capsule 100 mg PO BEDTIME 05/31/24 05/31/24 05/28/24 History ondansetron 8 mg disintegrating 8 mg PO Q8H PRN nausea/vomiting 05/31/24 05/31/24 Unknown History tablet Physical Exam 2 Vital Signs: Vital Signs: Last Vital Signs Temp 97.5 F 06/03/24 11:12 Pulse 85 06/03/24 11:12 Resp 16 06/03/24 11:12 BP 145/71 H 06/03/24 11:12 Pulse Ox 97 06/03/24 11:12 O2 Del Method Room Air 06/03/24 11:12 O2 Flow Rate 0 06/01/24 09:35 Oxygen Flow Rate 4 05/30/24 16:10 BMI result Body Mass Index 21.2 Const: General: comfortable and no acute distress O rientation/consciousness: patient oriented x3 HEENT: Other: Unremarkable Head: Yes normal to inspection Neck: Neck: Yes normal visual inspection Chest: Chest palpation & inspection: normal inspection of the chest Resp: Other: Few fine crackles bilaterally Cardio: Palpation: normal PMI Heart sounds: S1 normal heart sound present, S2 normal heart sound present, no gallops, no murmurs and no rubs GI: Palpation (GI): Soft to palpation Back/Spine/Pelvis: Other: unremarkable Skin: General skin exam: no rashes or lesions noted Neuro: General: patient oriented x3 Extrem: General: Yes normal to inspection Psych: Mental Status: mental status grossly normal Objective Labs and Meds 06/03/24 06:08 06/03/24 06:08 Lab results: Laboratory Results - last 24 hr 06/02/24 06/02/24 06/03/24 16:25 20:12 06:08 WBC 7.7 RBC 2.94 L Hgb 8.5 L Hct 25.6 L MCV 87.1 MCH 28.9 MCHC 33.2 RDW 14.4 Plt Count 190 MPV 8.4 L Absolute Nucleated RBC 0.000 Nucleated RBC % (auto) 0.0 Sodium 138 Potassium 4.5 Chloride 105 Carbon Dioxide 27 Anion Gap 11 L BUN 42 H Creatinine 1.77 H Estim Creat Clear Calc 34.7 Estimated GFR 30 POC Glucose 166 H 141 H Random Glucose 89 Calcium 8.8 D 06/03/24 06/03/24 07:13 10:59 WBC RBC Hgb Hct MCV MCH MCHC RDW Plt Count MPV Absolute Nucleated RBC Nucleated RBC % (auto) Sodium Potassium Chloride Carbon Dioxide Anion Gap BUN Creatinine Estim Creat Clear Calc Estimated GFR POC Glucose 80 124 H Random Glucose Calcium ECG Interpretation: EKG with underlying sinus rhythm at 92/Min; no significant ST-T changes; normal SD and corrected QT. Assessment and Plan (1) Acute on chronic diastolic (congestive) heart failure: Status: Acute (2) Hypertensive urgency: Status: Acute (3) Chronic kidney disease: Status: Acute Plan Echocardiogram-02/2024-LVEF 45-50%. Elevated filling pressures. No significant valvular abnormalities. Cardiac BNP levels have been up and down. This admission, as much as 1300. Last month, it was 375. Unremarkable high sensitivity troponins. BUN is 42 and creatinine is 1.7. Recent chest x-ray from 05/30 shows moderate to large bilateral pleural effusions. It seems that she underwent left-sided thoracentesis. Repeat chest x-ray shows mild pulmonary vascular congestion. Right basilar patchy opacity questioned effusion/underlying infiltrate/atelectasis. Overall, probably acute on chronic diastolic heart failure with many comorbidities, primarily hypertension/chronic kidney disease. Blood pressure is still high and less than ideal. For meds, agree with oral diuretics as she is not looking volume overloaded anymore. For blood pressure, only on Amlodipine at this time. May have to add additional meds like carvedilol. Unclear if she will be suitable for HOLGER inhibitors or ARB because of renal issues. Will need also outpatient nephrology consultation. Discussed with Dr. Gonzalez. Procedures Date of Service Date of Service: 06/03/24
[2024-06-03] MEDS: Amoxicillin/Potassium Clav 500 MG TABLET PO (14:46)
--- NOTE | 2024-06-03 14:47 | MHC.CM.PN ---
Addendum entered by Alysha Baez 06/03/24 15:11: Pt arranged her own transport home, BLS ride cancelled. Original Note: Pt is medically cleared for discharge home with resumption of previous [facility], she will transport home via BLS/[facility].
== END 2024-06-03 15:31 | disposition home or self-care (01) | DRG 194 ==
LOC: HO.ED 16:44 → HO.EDOVER 05-31 01:06 → HO.IMC 05-31 16:49
PROVIDERS: Physician Assistant; Physician Assistant Surgical; Admitting Provider Internal Medicine; Emergency Provider Emergency Medicine Emergency Medical Services; PCP Internal Medicine; Visit Provider Internal Medicine
DX: I13.0 Hypertensive heart and chronic kidney disease with heart failure and stage 1 through stage 4 chronic kidney disease, or unspecified chronic kidney disease (principal); J96.21 Acute and chronic respiratory failure with hypoxia; J91.8 Pleural effusion in other conditions classified elsewhere; E11.22 Type 2 diabetes mellitus with diabetic chronic kidney disease; N18.4 Chronic kidney disease, stage 4 (severe); D63.1 Anemia in chronic kidney disease; Z99.81 Dependence on supplemental oxygen; E78.5 Hyperlipidemia, unspecified; I50.43 Acute on chronic combined systolic (congestive) and diastolic (congestive) heart failure; N39.0 Urinary tract infection, site not specified; A08.4 Viral intestinal infection, unspecified; J44.1 Chronic obstructive pulmonary disease with (acute) exacerbation; E11.40 Type 2 diabetes mellitus with diabetic neuropathy, unspecified; Z20.822 Contact with and (suspected) exposure to COVID-19; Z79.4 Long term (current) use of insulin; Z79.82 Long term (current) use of aspirin; Z79.899 Other long term (current) drug therapy
CPT/HCPCS: 0241U; 32555; 36415; 71045; 71046; 80048; 80053; 81001; 82272; 82947; 83690; 83735; 83880; 84484; 85025; 85027; 85610; 87086; 87088; 87186; 93005; 99285; J0131; J0696; J1940; J2003; J2405; J2470; J2919

== ENCOUNTER 2024-05-31 00:32 | Outpatient (BNV) | payer MEDICAID, SELFPAY | END 2024-06-01 09:30 | PROVIDERS: Admitting Provider Internal Medicine; Emergency Provider Emergency Medicine Emergency Medical Services; PCP Internal Medicine; Visit Provider Radiology Diagnostic Radiology | DX: J90 Pleural effusion, not elsewhere classified (principal) | CPT/HCPCS: 71045 ==

== ENCOUNTER → 2024-05-31 00:32 | Outpatient (BNV) | payer MEDICAID, SELFPAY | PROVIDERS: Admitting Provider Internal Medicine; Emergency Provider Emergency Medicine Emergency Medical Services; PCP Internal Medicine; Visit Provider Physician Assistant Surgical | DX: J90 Pleural effusion, not elsewhere classified (principal) | CPT/HCPCS: 32555 ==

== ENCOUNTER → 2024-05-31 00:32 | Outpatient (BNV) | payer MEDICAID, SELFPAY | PROVIDERS: Admitting Provider Internal Medicine; Emergency Provider Emergency Medicine Emergency Medical Services; Visit Provider Internal Medicine | DX: J90 Pleural effusion, not elsewhere classified (principal); J96.21 Acute and chronic respiratory failure with hypoxia; R11.10 Vomiting, unspecified | CPT/HCPCS: 99223; 99232; 99239; 99499 ==

== ENCOUNTER → 2024-05-31 00:32 | Outpatient (BNV) | payer MEDICAID, SELFPAY | PROVIDERS: Admitting Provider Internal Medicine; Emergency Provider Emergency Medicine Emergency Medical Services; PCP Internal Medicine; Visit Provider Internal Medicine | DX: I50.33 Acute on chronic diastolic (congestive) heart failure (principal); I16.0 Hypertensive urgency; N18.9 Chronic kidney disease, unspecified | CPT/HCPCS: 99223 ==

== ENCOUNTER 2024-06-25 13:32 | Outpatient (AMB) | payer MEDICAID, SELFPAY ==
--- NOTE | 2024-06-25 13:36 | A.OFFVIS_ITS ---
Vital Signs 06/25/24 13:38 Height 5 ft 2 in Weight 136 lb 10.986 oz BMI 25.0 BP 118/70 Blood Pressure Location Lt brachial Position Sitting Pulse 78 Pulse Source Pulse Oximeter Intake Visit Reasons: follow up(NS ) Senior Sql Developer Required: Yes Senior Sql Developer Name: KOURTNEY [id number] Allergies shrimp Allergy (Verified 05/30/24 16:14) Swelling Medication List - Last Reconciled 06/25/24 by Georges Wilson NP amlodipine 10 mg See Protocol PO DAILY aspirin 1 tab PO DAILY blood sugar diagnostic (FreeStyle Test strips) As directed ferrous sulfate 324 mg PO Q OTHER DAY furosemide (Lasix) 40 mg PO DAILY gabapentin 100 mg PO BEDTIME insulin glargine (Lantus U-100 Insulin) 10 units (0.1 mL) subcut BEDTIME lactulose 10 grams (15 mL) PO BID PRN omeprazole 40 mg PO DAILY@0630 ondansetron 8 mg PO Q8H PRN HPI Comments Details: This is a 54-year-old female patient presenting for a hospital discharge follow- up. She is accompanied by her son and the acoustic warfare analyst was used throughout the visit. The patient has a history of diabetes on insulin, hy pertension, hyperlipidemia, chronic systolic and diastolic heart failure, pleural effusions in the past requiring thoracentesis, chronic kidney disease, COPD on oxygen therapy at home as needed. Patient was recently admitted to the hospital for GI symptoms and was also found to be hypoxic with her oxygen saturation in the 80s. A chest x-ray showed bilateral large pleural effusions, and a BNP in the 1300s for which she was treated with IV Lasix and was discharged home on oral Lasix. Today, the patient reports feeling well overall. However, she mentions experiencing right-sided chest pain that feels like a pressure, occurring both with exertion and at rest. The pain last a few seconds and is nonradiating. Patient denies any associated symptoms of shortness of breath, palpitations, dizziness, fatigue, orthopnea, PND, leg edema, presyncope, or syncope. Patient did not remember her medications and therefore was reconciled with her pharmacy, however, patient states she is compliant with her medications. [facility] Medical History (Updated 06/25/24 @ 14:19 by Georges Wilson NP) Chest pain Congestive heart failure Bilateral pleural effusion Anemia CHF (congestive heart failure) Urinary tract infection Hypertension Symptomatic anemia Brain lesion Iron deficiency anemia HLD (hyperlipidemia) Depression Type 2 diabetes mellitus Family History Other Hypertension Social History Household Members: Children Household Members Other:: Daughter Housing: Apartment Do you presently have visiting nurse or other home services: Yes (not sure who it is) Unable to assess alcohol history related to: Unable to respond Alcohol intake: former Patient Tobacco Use Status: Never used Tobacco e-Cigarette/Vaping Use: Never Used Second Hand Smoke Exposure: No Advance Directives Date on File: 06/19/21 service: No Current occupational status: unemployed Review of Systems Const Denies weakness Eyes Denies loss of vision ENT Denies dizziness Card Denies chest pain, Denies chest pain with activity, Denies syncope, Denies rapid heart rate, Denies pedal edema, Denies edema, Denies leg edema, Denies lightheadedness, Denies palpitations, Denies dyspnea, Denies dyspnea on exertion and Denies orthopnea Resp Denies cough, Denies dyspnea, Denies dyspnea on exertion and Denies wheezing GI Denies hematochezia and Denies change in stool character Denies hematuria, Denies urinary frequency and Denies dysuria Musc Denies abnormal gait, Denies muscle cramps, Denies muscle weakness, Denies numbness, Denies radiating pain into limb and Denies tingling Skin/Breast Denies nail changes and Denies rash Neuro Denies Abnormal speech present, Denies abnormal gait, Denies dizziness, Denies syncope, Denies loss of vision, Denies memory loss, Denies numbness, Denies tingling and Denies weakness Psych Denies depression and Denies memory loss Endo Denies palpitations Aller/Immun Denies wheezing Physical Exam Vital Signs: Last Vital Signs Pulse 78 06/25/24 13:38 BP 118/70 06/25/24 13:38 BMI result Body Mass Index 25.0 Const General: cooperative, healthy appearing, comfortable and no acute distress Orientation/consciousness: patient oriented x3 HEENT Head: Yes normal to inspection Neck Neck: Yes normal visual inspection, Yes trachea midline and Yes supple Chest Chest palpation & inspection: normal inspection of the chest Resp Effort & Inspection: normal respiratory effort Auscultation: clear to auscultation bilaterally, no crackles, no rales, no rhonchi and no wheezes Cardio Jugular venous distension: no JVD Palpation: normal PMI Rate: regular rate Rhythm: regular rhythm Heart sounds: S1 normal heart sound present, S2 normal heart sound present, no click, no gallops, no murmurs and no rubs Peripheral pulses: Peripheral pulses 2+ throughout GI Inspection: Yes normal to inspection Palpation (GI): Soft to palpation Auscultation: normal bowel sounds Skin General skin exam: no rashes or lesions noted Neuro General: patient oriented x3 Speech: No Abnormal speech present Extrem General: Yes normal to inspection, Yes no pedal edema and No calf tenderness Psych Appearance: grossly normal Mental Status: mental status grossly normal Speech and movement: Normal speech and movement present Assessment & Plan Assessment & Plan (1) Chest pain: Code(s): R07.9 - Chest pain, unspecified Category: Medical Plan: Patient's symptoms sounding atypical in nature but given her multiple risk factors we will proceed with a myocardial perfusion study to look for any ischemic changes. Patient's myocardial perfusion study back in 09/18/23 was normal. (2) Hypertension: Code(s): I10 - Essential (primary) hypertension Category: Medical Qualifiers: Hypertension type: primary hypertension Qualified Code(s): I10 - Essential (primary) hypertension Plan: Blood pressure today is well-controlled. Continue amlodipine therapy. Ideally blood pressure less than 130/84. (3) Congestive heart failure: Code(s): I50.9 - Heart failure, unspecified Category: Medical Plan: 02/10/2024-echo study showed a mildly reduced LVEF 45-50% with elevated filling pressures, and trivial pericardial effusion. We will repeat an echo. Continue Lasix therapy. Clinical today patient is euvolemic. Advised low sodium diet and wearing compression socks. (4) Hospital discharge follow-up: Code(s): Z09 - Encounter for follow-up examination after completed treatment for conditions other than malignant neoplasm Plan: As above. Advised heart healthy diet, exercise as tolerated, and med compliance. Follow-up in 6 months. In the interim, patient will call us with any concerns or change in symptoms. Advised patient to seek ER care in case of exertional chest pain not resolved with rest. This note was generated using voice recognition software. While every effort has been made to ensure accuracy and proper marble rubber, there may be occasional errors that could affect the content or meaning of the described symptoms. Orders: Orders CA echo transthoracic complete Today R07.9 - Chest pain, unspecified CA lexiscan stress w joaquina Today R07.9 - Chest pain, unspecified NM cardiolite stress test Today R07.9 - Chest pain, unspecified Coding Level of Care Code Tele Est Pt Level 4 (87197) Diagnoses Chest pain R07.9 Primary hypertension I10 Hypertension type: primary hypertension Congestive heart failure I50.9 Hospital discharge follow-up Z09 Time Spent (min) 33 Comment Time spent in reviewing the chart, test results, assessment, counseling and documentation.
[2024-06-25 13:38] VITALS: BP 118/70; PULSE 78; BMI 25.0
--- OUTSIDE RECORDS SUMMARY | 2024-06-25 14:30 | XMS_ITS | Encounter Summary ---
Author Organization [facility] Address [address] [place] [address] Care Team Providers Care Senior Investment Analyst Name Role Phone Mckenzie Hernandez MD Primary Care Provider [phone] Encounter Details Date Type Department Care Team (Late st Contact Info) Description 05/12/2024 Lab Requisition [facility] - Main Lab [address] [facility] [place] [address] Mckenzie Hernandez MD [address] [place] [id number] Hyperkalemia Social History Tobacco Use Types Packs/Day Years Used Date Smoking Tobacco: Never Assessed Comments Unknown Sex and Gender Information Value Date Recorded Sex Assigned at Not on file Legal Sex Female 9:04 AM EST Gender Identity Not on file Sexual Orientation Not on file documented as of this encounter Plan of Treatment Not on file documented as of this encounter Visit Diagnoses Diagnosis Hyperkalemia Hyperpotassemia documented in this encounter Care Teams Senior Investment Analyst Relationship Specialty Start Date End Date Mckenzie Hernandez MD [address] [place] [id number] PCP - General Hospitalist Medicine 04/27/24 documented as of this encounter
--- OUTSIDE RECORDS SUMMARY | 2024-06-25 14:30 | XMS_ITS | Clinical Summary ---
Demographics Address [address] [facility] [address] [place] [address] Mobile Phone Email Address Preferred Language es Marital Status Single Restoration Affiliation Unknown Race Other Race Ethnic Group or Author Organization [employer] Address [address] [place] [address] [address] [place] [address] Care Team Providers Care Supervisor Bonding Name Role Phone Neelima Brown MD Primary Care Provide r Allergies Active Allergy Reactions Criticality Noted Date Comments Shrimp Extract Swelling 06/07/2022 Other reaction(s): Swelling Medications * This document contains information received from the source organization and may not represent a complete record from that organization. Alcohol Swabs (Alcohol Prep) 70 % pads USE FIVE TIMES DAILY WITH INSULIN 100 each 11 023 Active Misc. Devices (Fingertip Pulse Oximeter) miscIndication s:Orthostatic hypotension,Di zziness 1 each Once daily. 1 each 024 Active gabapentin (Neurontin) 100 MG capsule TAKE 1 CAPSULE BY MOUTH EVERY DAY AT BEDTIME 024 Active ketoconazole (NIZOral) 2 % shampooIndicat ions:Seborrhei c dermatitis Apply topically 2 (two) times a week. 120 mL 1 024 Active Blood Pressure Monitoring (Blood Pressure Cuff) miscIndication s:Hypertensive urgency Use daily as prescribed 1 each 024 Active FREESTYLE LITE test stripIndicatio ns: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, with long-term current use of insulin (CMS/HCC) Use to test blood sugar 2 times daily 100 each 12 024 2024 Active Lancets miscIndication s: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, with long-term current use of insulin (CMS/HCC) Use to test blood sugar 2 times daily 100 each 024 Active Blood Glucose Monitoring Suppl (FreeStyle Dennis Lite) w/Device kitIndications :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, with long-term current use of insulin ([facility]) Use to test blood sugar 2 times daily 1 kit Active Aspirin Low Dose 81 MG EC tabletIndicati ons: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, unspecified whether computer terminal operator insulin use ([facility]) Take 1 tablet (81 mg) by mouth Once per day. 90 tablet 3 Active Lantus SoloStar 100 UNIT/ML penIndications :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, unspecified whether computer terminal operator insulin use ([facility]) INJECT 10 UNITS SUBCUTANEOUSLY once daily 3 mL 2 Active ferrous sulfate 324 MG EC tabletIndicati ons:Anemia, unspecified type Take 1 tablet (324 mg) by mouth every other day. 15 tablet 2 Active omeprazole (PriLOSEC) [address] capsuleIndicat ions:Heartburn ,Nausea and vomiting, unspecified vomiting type Take 1 capsule (40 mg) by mouth before breakfast. Do not crush or chew. 30 capsule 2 024 2024 Active amLODIPine (Norvasc) 10 MG tabletIndicati ons:Hypertensi ve urgency TAKE 1 TABLET BY MOUTH EVERY DAY 90 tablet 1 024 Active furosemide (Lasix) 40 MG tablet Take 1 tablet by mouth Once per day. Active lactulose (Chronulac) 10 GM/15ML solution Take 15 mL by mouth if needed in the morning and at bedtime (constipation). 024 Active UltiCare Pen [place] 29G X 12.7MM miscIndication s: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, unspecified whether usp insulin use ([facility]) USE FOUR TIMES DAILY 100 each 11 025 Active UltiCare Pen [place] 29G X 12.7MM miscIndication s: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, unspecified whether computer terminal operator insulin use ([facility]) USE FOUR TIMES DAILY 100 each 11 023 2024 Discontinued(R eorder (will not trigger notification to Pharmacy)) furosemide (Lasix) 20 MG tabletIndicati ons:Congestive heart failure, unspecified HF chronicity, unspecified heart failure type (CMS/HCC) Take 1 tablet (20 mg) by mouth Once per day. 30 tablet 024 2024 Discontinued(M ed list cleanup (will not trigger notification to Pharmacy)) Active Problems Problem Noted Date Diagnosed Date Urinary incontinence 03/20/2024 Assessment & Plan (03/20/2024 4:31 PM EST): Pull ups will be prescribed today Heartburn 03/20/2024 Assessment & Plan (03/20/2024 4:30 PM EST): I advise patient to avoid NSAIDs, spicy and acid food, I advise to eat at the same time every day, I advise to elevate the head of the bed and take medications as prescribe I will start her for now on omeprazole 40mg daily Hyperkalemia 03/20/2024 Assessment & Plan (03/20/2024 4:33 PM EST): BMP to be check today K supplement will be on hold until results are back CHF (congestive heart failure) 01/28/2024 Assessment & Plan (03/20/2024 4:29 PM EST): Patient looks clinically compensated F/u with cardiology Assessment & Plan (01/28/2024 2:07 PM EDT): Cardiology referral done [facility] will be [facility] for patient Hypertensive urgency 01/28/2024 Assessment & Plan (01/28/2024 2:07 PM EDT): Today also elevated she has not being taking at all any of her medication, extensive discussion done today she took in front of me her losartan, I prescribed her also amlodipine 10mg again she will pick it up and also take it today, I advise low Na diet, I referred her to cardiology [facility] services will be place for patient for BP check and medication administration Forgetfulness 01/28/2024 Assessment & Plan (01/28/2024 2:08 PM EDT): Patient referred to [facility] Rehana dermatitis 01/28/2024 Assessment & Plan (01/28/2024 2:06 PM EDT): Ketoconazole shampoo prescribed today Dermatology referral done DILLON (acute kidney injury) 07/08/2023 Assessment & Plan (07/08/2023 1:43 PM EST): Continue to follow with nephrology Orthostatic hypotension 07/08/2023 Assessment & Plan (07/08/2023 1:43 PM EST): I agree with nephrology c/w midrodine 5mg TID Referral to cardiology and endocrinology Nausea with vomiting 07/08/2023 Assessment & Plan (03/20/2024 4:30 PM EST): Zofran PRN Assessment & Plan (07/08/2023 1:43 PM EST): resolved Low serum cortisol level 07/08/2023 Assessment & Plan (07/08/2023 1:44 PM EST): Endocrinology referral Dizziness 07/08/2023 Complicated UTI (urinary tract infection) 2022 Assessment & Plan (02/04/2023 1:54 PM EDT): Resolved now Anxiety and depression 02/04/2023 Assessment & Plan (02/28/2023 1:18 PM EDT): Continue with current medication regimen Assessment & Plan (02/04/2023 1:56 PM EDT): Extensive counseling done Declines therapist I will start her on sertraline 25mg daily RTC 2-3 weeks televisit GERD (gastroesophageal reflux disease) Assessment & Plan (01/04/2023 4:26 PM EDT): Patient continues to c/o abdominal discomfort/pain, nausea, constipation on and off I printed referral and mail to patient I advise patient to avoid NSAIDs, spicy and acid food, I advise to eat at the same time every day, I advise to elevate the head of the bed and take medications as prescribe Unstable gait 12/12/2022 Assessment & Plan (12/13/2022 4:12 PM EDT): Roller walker with seat and brakes will be prescribed Bath seat with back prescribed for patient Hospital discharge follow-up 12/11/2022 Other constipation 12/11/2022 Assessment & Plan (12/12/2022 2:09 PM EDT): It was advise increase water and fiber on her diet Pain in both feet 12/11/2022 Diabetic polyneuropathy asso ciated with type 2 diabetes mellitus 12/11/2022 Assessment & Plan (12/12/2022 2:08 PM EDT): Gabapentin increase to 300mg Q 8hrs Generalized abdominal pain 12/11/2022 Depression 10/09/2022 Assessment & Plan (07/08/2023 1:44 PM EST): Patient finally agree again on taking medications I will start her on mirtazapine 15mg daily Declines therapist Hyperglycemia 10/09/2022 Pyelonephritis 10/09/2022 Idiopathic hypotension 10/09/2022 Assessment & Plan (10/09/2022 3:46 PM EDT): With constellation of presentation, hypotension, crushing chest pain, abnormal EKG that could indicate lateral ischemia, vitals indicating possible sepsis, patient needs to go back to the ER EMS called and patient was transported to nearest ER Leg weakness, bilateral 09/14/2022 Assessment & Plan (09/14/2022 1:17 PM EDT): unclear if it is an acute condition or due to #1/r/o urosepsis vs progressive neurodegenerative disorder reevaluation after discharge from ED. I gave the son neurology referral so he can reschedule appointment. Consider further evaluation by home PT Lower abdominal pain 09/14/2022 Assessment & Plan (09/14/2022 1:17 PM EDT): At this time it is unclear diagnosis as pt is unable to get up and have a urine sample taken. I am concerned about hyperosmolar disorder, UA with urosepsis, DILLON Given pt risk of progressive dehydration and hemodynamic consequences I will refer to ED via ambulance with her son. FU with PCP upon discharge or in 2 weeks. 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 09/03 Assessment & Plan (03/20/2024 4:31 PM EST): Diabetes is: not controlled but improved - Lab Results Component Value Date HGBA1C 7.5 (H) 02/19/2024 HGBA1C 8.3 (A) 01/28/2024 HGBA1C 8.3 (A) 07/08/2023 - Lab Results Component Value Date MICROALBUR 14.5 11/20/2021 CREATININE 1.54 (H) 03/20/2024 -Changes: none - Diabetic eye exam:pending - Diabetic foot exam:pending - Continue lifestyle modifications - Continue current medications - Follow up: 3 months Assessment & Plan (01/28/2024 2:08 PM EDT): Diabetes is: not controlled - Lab Results Component Value Date HGBA1C 8.3 (A) 01/28/2024 HGBA1C 8.3 (A) 07/08/2023 HGBA1C 7.5 (A) 12/11/2022 - Lab Results Component Value Date MICROALBUR 14.5 11/20/2021 CREATININE 1.01 08/28/2023 -Changes: re-start lants 10U at bed time - Diabetic eye exam:referral done today - Diabetic foot exam:pending - Continue lifestyle modifications - Continue current medications VNA services place for glucose check and medication administration - f/u 4 weeks Assessment & Plan (07/08/2023 1:43 PM EST): I will refer patient to endocrinology Continue for now with same regimen of insulin and medications Assessment & Plan (02/04/2023 1:55 PM EDT): - Lab Results Component Value Date HGBA1C 7.5 (A) 12/11/2022 HGBA1C >14.0 (H) 11/20/2021 HGBA1C 12.7 (H) 02/10/2020 - Lab Results Component Value Date MICROALBUR 14.5 11/20/2021 CREATININE 0.86 12/22/2022 - Diabetic eye exam: - Diabetic foot exam: - Continue lifestyle modifications - Continue current medications: I went down on lantus to 15 at bed time, c/w lispro sliding scale, c/w pioglitazone 15mg daily - Assessment & Plan (01/04/2023 4:25 PM EDT): Patient ate a chocolate before coming Patient's glucose as per her son has being good at ome, he reports he is being giving to her Lantus 30U at bed time and insulin sliding scale with meals Assessment & Plan (12/12/2022 2:12 PM EDT): I reviewed pharmacy notes and her medications I will put her lantus 10U at bed time C/w lispro sliding scale I put pioglitazone 15mg daily Patient oral intake is very variable Diabetes is not controlled and is my medical opinion that in light of her fluctuating glucose and insulin dependence, patient will benefit form continuous glucose monitoring Assessment & Plan (09/14/2022 1:18 PM EDT): Unclear if it is uncontrolled, r/o hyperosmolar state today refer to ED for aggressive hydration, r/o underlying condition. Essential hypertension 06/19/2022 Assessment & Plan (03/20/2024 4:30 PM EST): Maintenance: BMP: up to date Lipid Panel: up to date ASCVD Risk: 6.2% I advise: - Aerobic exercise to reduce BP. Initial goal of 30 min walk 3-5x/week. Increase as tolerated. - low-sodium diet (goal: <2g/day) and heart healthy diet such as DASH to reduce BP and prevent ASCVD. - Home BP monitoring 1-2 x day with goal of <140/90. - Seek immediate medical attention for chest pain, palpitations, SOB, syncope, or sudden changes in mental status. - Do not change or discontinue current prescriptions without first consulting health care provider Assessment & Plan (07/08/2023 1:42 PM EST): C/w amlodipine 5mg daily Assessment & Plan (02/04/2023 1:54 PM EDT): -I put her on amlodpine 2.5mg daily only, continue monitoring BP at home - Aerobic exercise to reduce BP. Initial goal of 30 min walk 3-5x/week. Increase as tolerated. - low-sodium diet (goal: <2g/day) and heart healthy diet such as DASH to reduce BP and prevent ASCVD. - Home BP monitoring 1-2 x day with goal of <140/90. - Seek immediate medical attention for chest pain, palpitations, SOB, syncope, or sudden changes in mental status. - Do not change or discontinue current prescriptions without first consulting health care provider Assessment & Plan (01/04/2023 4:23 PM EDT): Patient's BP at home has being good today also WNL she is not taking lisinopril, I will remove it form medication list Assessment & Plan (12/12/2022 2:09 PM EDT): On review of chart it has being notice her BP high on ED notes and other visit I will start her on lisinopril 10mg daily advise low Na diet Weakness 06/19/2022 Metabolic encephalopathy 06/19/2022 Assessment & Plan (02/28/2023 1:18 PM EDT): I will prescribe pulse ox so that patient's O2 level is check in case she gets sick/confuse/less responsive Hemoglobin A1C greater than 9%, indicating poor diabetic control 12/01/2019 Abnormal mammogram 03/13/2017 Anemia 03/13/2017 Assessment & Plan (03/20/2024 4:32 PM EST): I will start her on iron supplement Glaucoma 03/13/2017 Hyperlipidemia 03/13/2017 Illiteracy and low-level literacy 03/13/2017 Noncompliance with treatment 03/13/2017 Positive RPR test 03/13/2017 Tooth disorder 03/13/2017 Type 2 diabetes mellitus without complication Encounters Date Type Department Care Team Description 06/24/[address] [phone] Neelima Brown MD Chart Prep 06/18/2024 Patient Outreach [address] [address] Neelima Brown MD SDOH Concerns (CHW SINDI Izquierdo PT1) 06/18/2024 Patient Outreach [address] [address] Neelima Brown MD Care Coordination (CHW outreach for SDOH PT-1 and food needs-referral completed /) 06/18/[address] [phone] Neelima Brown MD PT1 06/17/2024 Refill [facility] MED & PEDS [address], [place] [phone] Neelima Brown MD 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, unspecified whether computer terminal operator insulin use ([facility]) 06/10/[address] [address] Winifred Land RN HDF appointment 06/10/[address] [address] Fabienne Gonzalez MA Chart Prep 06/09/[address] [address] Neelima Brown MD PT1 06/04/2024 Patient Outreach [address] [phone] Neelima Brown MD Transition Of Care (Tcm) (HDF- scheduled) 05/31/2024 Orders Only [facility] External Provider, [facility] 05/22/[address] [address] Neelima Brown MD Medication Question 05/21/[address] [address] Neelima Brown MD verbal order 05/18/2024 Patient Outreach [address] [address] Neelima Brown MD Pre-visit Planning (HDF- Scheduled) 04/27/2024 Patient Outreach [facility] MED & PEDS [address] [place] [address] Neelima Brown MD Transition Of Care (Tcm) (HDF unscheduled, patient in rehab) 04/22/2024 Patient Outreach [address] [address] Neelima Brown MD Pre-visit Planning (SDOH screening completed on 06/26/2023) 04/20/[address] [address] Neelima Brown MD Hypertensive urgency 04/16/[address] [address] Neelima Brown MD 04/07/[address] [address] eNelima Brown MD Nurse Triage 04/06/[address] [address] Nya Collazo MA DME form L&C 04/06/[address] [address] Neelima Brown MD FYI 04/01/[address] [address] Neelima Brown MD Nurse Triage 03/25/[address] [address] Fabienne Gonzalez MA Durable Medical Equipment from Last 3 Months Immunizations Name Administration Dates Next Due Hep A, Adult 09/15/2012 Hep B, adult 07/30/2012 Influenza injectable quadriv alent IIV4 with preservative 02/17/2015 Influenza, Split (incl. purified surface antigen ) 03/11/2012 Pneumococcal Polysaccharide PPSV23 04/16/2005 Tdap 08/22/2006 Social History Tobacco Use Types Packs/Day Years Used Date Smoking Tobacco: Never Passive Smoke Exposure: Never Smokeless Tobacco: Never Tobacco Cessation:Counseling Given: Not Answered Alcohol Use Standard Drinks/Week Comments Never 0 (1 standard drink = 0.6 oz pur e alcohol) Depression Answer Date Recorded Patient Health Questionnaire-9 Score 0 02/28/2023 Patient Health Questionnaire-9 Score 0 02/28/2023 Last PHQ-9: Questionnaire Data Not on file 1 Housing Stability Answer Date Recorded What is your housing situation today? I have yandel cruz 06/26/[address] you li ve. Do you have problems with any of the following? None of the above 06/26/2023 Food Insecurity Answer Date Recorded Within the past 12 months, y ou worried that your food would run out before you got money to buy more: Sometimes True 2023 Within the past 12 months,th e food you bought just didn't last and you didn't have enough money to get more: Sometimes True 06/26/2023 Transportation Answer Date Recorded In the past 12 months, has l ack of transportation kept you from medical appts, meetings, work or from getting things needed for daily living? No 06/26/2023 Utilities Answer Date Recorded In the past 12 months, has t he electric, gas, oil or water company threatened to shut off services in your home? No 06/26/2023 Depression Answer Date Recorded Patient Health Questionnaire-2 Score 0 02/28/2023 Comments Unknown Sex and Gender Information Value Date Recorded Sex Assigned at Female 03/05/2022 10:14 AM EDT Legal Sex Female 10:14 AM EDT Gender Identity Female 03/05/2022 10:14 AM EDT Sexual Orientation Straight 03/05/2022 10 :14 AM EDT Last Filed Vital Signs Vital Sign Reading Time Taken Comments Blood Pressure 132/63 03/20/2024 1:12 PM EST Pulse 88 03/20/2024 1:12 PM EST Temperature 36.1 ??C (97 ??F) 03/20/2024 1:12 PM EST Respiratory Rate 12 03/20/2024 1:12 PM EST Oxygen Saturation 97% 03/20/2024 1:12 PM EST Inhaled Oxygen Concentration - - Weight 59.4 kg (131 lb) 03/20/2024 1:12 PM EST Height 167.6 cm (5' 6 ) 03/20/2024 1:12 PM EST Body Mass Index 21.14 03/20/2024 1:12 PM EST Plan of Treatment Upcoming Encounters Date Type Department Care Team (Late st Contact Info) Description 06/29/2024 1:00 PM EST Office Visit [facility] MEDICINE [address] [place] [address] Neelima Brown MD [address] [place] [address] 07/20/2024 2:00 PM EDT Office Visit [facility] OPTOMETRY [address] [place] [address] Octaviano, Nicole, OD [address] [place] [address] Health Maintenance Due Date Last Done Comments CT Colonography 1969 Colonoscopy 1969 Colorectal Cancer Screening 1969 FIT DNA/Cologuard 1969 FIT 1969 FOBT 1969 HIV Screening 1969 Sigmoidoscopy 1969 Diabetes: Foot Exam 1979 Eye Exam 1979 Alcohol/Substance Use Screening 1981 Hepatitis C Screening 1987 Pap Smear 1990 Pneumococcal Vaccine: 50+ Years (2 of 2 - PCV) 04/16/2006 04/16/2005 Hepatitis B Vaccines (2 of 3 - 19+ 3-dose series) 08/27/2012 07/30/2012 DTaP/Tdap/Td Vaccines (2 - Td or Tdap) 08/22/2016 08/22/2006 Zoster Vaccines (1 of 2) 2019 Diabetes: Urine Protein Screening 11/20/2022 11/20/2021 Lipid Panel 11/20/2022 11/20/2021, 02/10/2020 Mammogram 07/18/2023 07/17/2021, 07/05, 07/29/2017 Cervical Cancer Screening 07/24/2023 HPV/Cotest 07/24/2023 07/23/2018 COVID-19 Vaccine ( season) 2024 Influenza Vaccine (#1) 2024 02/17/2015, 2011 Depression Screening 02/29/2024 02/28/2023, 02/29/20 23 Diabetes: Hemoglobin A1C 05/21/2024 024, 01/28/2024, 07/08/2023, Additional history exists SDOH Screening 06/26/2024 06/26/2023 Tobacco Screening 03/20/2025 03/20/2024 RSV Patients and Patients Aged 60 years or older (1 - 1-dose 75+ series) 2044 Hepatitis A Vaccines Aged Out 09/15/2012 No long er eligible based on patient's age to complete this topic HIB Vaccines Aged Out No longer eligi ble based on patient's age to complete this topic HPV Vaccines Aged Out No longer eligi ble based on patient's age to complete this topic IPV Vaccines Aged Out No longer eligi ble based on patient's age to complete this topic Meningococcal Vaccine Aged Out No july vandana eligible based on patient's age to complete this topic RSV under 20 months Aged Out No longe r eligible based on patient's age to complete this topic Rotavirus Vaccines Aged Out No longer eligible based on patient's age to complete this topic Goals Goal Patient Goal Type Associated Problems Recent Progress Patient-Stated? Author Eat breakfast every day Diet No Tami Liz PharmD Note: Carbs, protein, fruits and veggies Take your medication every day Lifestyle On track( 023 4:40 PM EST) No Tami Liz PharmD Procedures Procedure Name Priority Date/Time Associated Diagnosis Comments XR CHEST 1 VIEW Routine 06/01/2024 9:30 AM EST US THORACENTESIS Routine 06/01/2024 9:00 AM EST US RENAL BI Routine 04/20/2024 4:53 PM EST US THORACENTESIS Routine 04/09/2024 12:3 0 PM EST XR CHEST 1 VIEW Routine 04/08/2024 12:40 PM EST US THORACENTESIS Routine 04/08/2024 11:4 5 AM EST POCT GLYCATED HEMOGLOBIN, TOTAL Routine 01/28/2024 1:19 PM EDT 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, with long-term current use of insulin ([facility]) ALBUMIN, RANDOM URINE W/CREATININE Routine 11/20/2021 2:21 PM EDT LIPID PANEL, STANDARD Routine 11/20/2021 2:21 PM EDT MAMMOGRAM GENERIC Routine 07/17/2021 2:1 0 PM EDT ZZZ HISTORICAL HPV MRNA E6/E7 Routine 07/23/2018 11:16 AM EDT from Last 3 Months or Most Recently Relevant to Health Maintenance Results * XR Chest 1 View (06/01/2024 9:30 AM EST) Only the most recent of2 resultswithin the time period is included. Anatomical Region Laterality Modality Chest Radiographic Kim ging 06/01/2024 9:30 AM EST Narrative 06/01/2024 10:30 AM EST ? [facility] ?[address] ?[place] [address] ?XRay Report ? Signed ? Patient: Loya,Queta ?MR#: [id number] ? : 1970 ?Acct:[id number] ? Age/Sex: 54 / F ?ADM Date: 01/26/25 ? Loc: HO.[facility] ?462-1 ? Attending Dr: Madhu Gonzalez MD ? Ordering Physician: Gene Linares ?? Date of Service: 06/01/24 ?? Procedure(s): XR chest 1V ?? Accession Number(s): [id number] ? cc: Neelima Brown MD; Gene Linares ? EXAMINATION: ?? XR CHEST ? CLINICAL INFORMATION: ?? s/p left thoracentesis ? COMPARISON: ?? Chest x-ray 05/30/2024. ? TECHNIQUE: ?? Frontal view of the chest was obtained. ? FINDINGS: ?? Lungs and moderate haziness with right basilar homogeneous opacity ?? suggestive of effusion/infiltrate/atelectasis. Rest of the lungs are ?? expanded and clear. Heart size is borderline normal with slight ?? increased pulmonary vascularity question mild congestion. No gross bony ?? abnormality. ? XR/XR chest 1V ?? IMPRESSION: ?? Suspect mild pulmonary vascular congestion. ? Right basilar patchy opacity question effusion with underlying ?? infiltrate/atelectasis. ? Electronically signed by: ??Jeremiah Farr MD ??06/01/2024 10:27 AM EST RP ? Dictated By: ?Jeremiah Farr MD ? Signed By: ?<Electronically signed by Jeremiah Farr MD in OV> ?06/01/24 1027 ? DD/ 0930 ? TD/TT: 06/01/24 0945 ? Solid Waste Analyst: MSM ? Procedure Note Jana, Duarte - 06/01/2024 [place] [address] XRay Report Signed Patient: Parish Loya#: [id number] : 1970Acct:[id number] Age/Sex: 54 / FADM Date: 05/31/24 Loc: .[facility] 462-[address]: Madhu Gonzalez MD Ordering Physician: Gene Linares Date of Service: 06/01/24 Procedure(s): XR chest 1V Accession Number(s): [id number] cc: Neelima Brown MD; Gene Linares EXAMINATION: XR CHEST CLINICAL INFORMATION: s/p left thoracentesis COMPARISON: Chest x-ray 05/30/2024. TECHNIQUE: Frontal view of the chest was obtained. FINDINGS: Lungs and moderate haziness with right basilar homogeneous opacity suggestive of effusion/infiltrate/atelectasis. Rest of the lungs are expanded and clear. Heart size is borderline normal with slight increased pulmonary vascularity question mild congestion. No gross bony abnormality. XR/XR chest 1V IMPRESSION: Suspect mild pulmonary vascular congestion. Right basilar patchy opacity question effusion with underlying infiltrate/atelectasis. Electronically signed by: Jeremiah Farr MD 06/01/2024 10:27 AM EST RP Dictated By: Jeremiah Farr MD Signed By: <Electronically signed by Jeremiah Farr MD in OV> 06/01/24 1027 DD/ 0930 TD/TT: 06/01/24 0945 Solid Waste Analyst: ERIC [facility] External Provider IMG XR PROCEDURES Final Result * US THORACENTESIS (06/01/2024 9:00 AM EST) Only the most recent of3 resultswithin the time period is included. Anatomical Region Laterality Modality Abdomen Ultrasound 06/01/2024 9:00 AM EST Narrative 06/01/2024 2:51 PM EST ? [facility] ?[address] ?[place] [address] ? Ultrasound Report ? Signed ? Patient: Vincenzo,Queta ?MR#: [id number] ? : 1970 ?Acct:[id number] ? Age/Sex: 54 / F ?ADM Date: 05/31/24 ? Loc: HO.IMC ?462-1 ? Attending : Madhu Gonzalez MD ? Ordering Physician: Mickie Mckeon MD ?? Date of Service: 06/01/24 ?? Procedure(s): US thoracentesis ?? Accession Number(s): [id number] ? cc: Neelima Brown MD; Mickie Mckeon MD ? PROCEDURE: ?? Ultrasound-guided left thoracentesis ? History: ?? Left pleural effusion ? Specimen: ?? None ? Access: ?? 5 Liberian Yueh catheter ? Medications: ?? 10 mL 1% lidocaine ? TECHNIQUE/FINDINGS ?? Appropriate preprocedural clinical history and imaging studies were ?? reviewed. The patient was brought to the department and placed in the ?? seated position. ? Ultrasound images of the left thorax were obtained to localize a ?? moderate pleural effusion. Permanent ultrasound images were saved. ? Risks and benefits and possible complications were discussed with the ?? patient's son and consent was obtained. An area of the patient's left ?? back was prepped and draped in usual sterile fashion. 10 mL of 1% ?? lidocaine was used to obtain local anesthesia of the skin and deeper ?? tissues. A standard small bore needle was introduced to sample pleural ?? fluid and demonstrate a safe access route. A 5 Liberian Yueh catheter was ?? then used to access the pleural cavity. 900 ml of ashish fluid was ?? removed passively. The catheter was then removed. A dressing was ?? applied. A postprocedure chest x-ray will be performed and will be ?? dictated separately. There were no immediate complications. ? The procedure was performed by Gene Linares PA-C and supervised by ?? Segundo ? / thoracentesis ?? Impression: Ultrasound-guided left thoracentesis ? Electronically signed by: ??Akash Raymond MD ??06/01/2024 02:48 PM EST RP ? Dictated By: ?Gene Linares ? Signed By: ?<Electronically signed by Gene Linares in OV> ? 06/01/24 1448 ?<Electronically signed by Akash Raymond MD in OV> ? 06/01/24 1450 ? DD/ 0900 ? TD/TT: 06/01/24 0921 ? Solid Waste Analyst: ? Procedure Note Jana, Image - 06/01/[address] [address] Ultrasound Report Signed Patient: Parish Loya#: [id number] : 1970Acct:[id number] Age/Sex: 54 / FADM Date: 05/31/24 Loc: .[facility] 462-[address]: Madhu Gonzalez MD Ordering Physician: Mickie Mckeon MD Date of Service: 06/01/24 Procedure(s): US thoracentesis Accession Number(s): [id number] cc: Neelima Brown MD; Mickie Mckeon MD PROCEDURE: Ultrasound-guided left thoracentesis History: Left pleural effusion Specimen: None Access: 5 Liberian Yueh catheter Medications: 10 mL 1% lidocaine TECHNIQUE/FINDINGS Appropriate preprocedural clinical history and imaging studies were reviewed. The patient was brought to the department and placed in the seated position. Ultrasound images of the left thorax were obtained to localize a moderate pleural effusion. Permanent ultrasound images were saved. Risks and benefits and possible complications were discussed with the patient's son and consent was obtained. An area of the patient's left back was prepped and draped in usual sterile fashion. 10 mL of 1% lidocaine was used to obtain local anesthesia of the skin and deeper tissues. A standard small bore needle was introduced to sample pleural fluid and demonstrate a safe access route. A 5 Liberian Yueh catheter was then used to access the pleural cavity. 900 ml of ashish fluid was removed passively. The catheter was then removed. A dressing was applied. A postprocedure chest x-ray will be performed and will be dictated separately. There were no immediate complications. The procedure was performed by Gene Linares PA-C and supervised by Dr. Raymond US/US thoracentesis Impression: Ultrasound-guided left thoracentesis Electronically signed by: Akash Raymond MD 06/01/2024 02:48 PM EST RP Dictated By: Gene Linares Signed By: <Electronically signed by Gene Linares in OV> 06/01/24 1448 <Electronically signed by Akash Raymond MD in OV> 06/01/24 1450 DD/ 0900 TD/TT: 06/01/24 0921 Solid Waste Analyst: us [facility] External Provider IMG US PROCEDURES Final Result * US RENAL BI (04/20/2024 4:53 PM EST) Anatomical Region Laterality Modality Abdomen Ultrasound 04/20/2024 4:53 PM EST Narrative 04/21/2024 4:17 PM EST ? [facility] ?[address] ?[place] [address] ? Ultrasound Report ? Signed ? Patient: Loya,Queta ?MR#: [id number] ? : 1970 ?Acct:[id number] ? Age/Sex: 53 / F ?ADM Date: 04/07/24 ? Loc: HO.IMC ?458-1 ? Attending Dr: Jade Maldonado MEDICAL DELIVERY TECHNICIAN ? Ordering Physician: Cinthya Voss DNP, JARETT-LINNETTE ?? Date of Service: 04/20/24 ?? Procedure(s): US renal BI ?? Accession Number(s): [id number] ? cc: Neelima Brown MD; Cinthya Voss DNP, FNP-BC ? EXAMINATION: ?? US RETROPERITONEAL LIMITED (RENAL ONLY) ? CLINICAL INFORMATION: ?? Acute kidney injury. ? COMPARISON: ?? CT abdomen and pelvis 04/07/2024. Renal ultrasound 09/16/2023. MRI MRCP ?? 09/17/2022. ? TECHNIQUE: ?? Real-time imaging of the kidneys. ? FINDINGS: ? RIGHT KIDNEY: 10.0 x 3.5 x 4.0 cm (SAG x AP x TRV). The kidney is ?? normal in size, contour, and echogenicity. Renal cortical thickness is ?? normal. No calculi or focal parenchymal lesions. No hydronephrosis but ?? renal pelvic fullness is seen. ? LEFT KIDNEY: 11.5 x 5.7 x 4.0 cm (SAG x AP x TRV). The kidney is normal ?? in size, contour, and echogenicity. Renal cortical thickness is normal. ?? No calculi or focal parenchymal lesions. No hydronephrosis. ? US/US renal BI ?? IMPRESSION: ?? Right renal pelvic fullness. ? Electronically signed by: ??Cesia Mayen MD ??04/21/2024 04:14 PM ?? EST RP ? Dictated By: ?Cesia Mayen MD ? Signed By: ?<Electronically signed by Cesia Mayen MD in OV> ?04/21/244 ? DD/ 1653 ? TD/TT: 04/20/24 1701 ? Solid Waste Analyst: ? Procedure Note Duarte Bates - 04/21/[address] [address] Ultrasound Report Signed Patient: Parish Loya#: [id number] : 1970Acct:[id number] Age/Sex: 53 / FADM Date: 04/07/24 Loc: .[facility] 458-[address]: Jade Maldonado NP Ordering Physician: Cinthya Voss DNP, [facility] Date of Service: 04/20/24 Procedure(s): US renal BI Accession Number(s): [id number] cc: Neelima Brown MD; Cinthya Voss DNP, [facility] EXAMINATION: US RETROPERITONEAL LIMITED (RENAL ONLY) CLINICAL INFORMATION: Acute kidney injury. COMPARISON: CT abdomen and pelvis 04/07/2024. Renal ultrasound 09/16/2023. MRI MRCP 09/17/2022. TECHNIQUE: Real-time imaging of the kidneys. FINDINGS: RIGHT KIDNEY: 10.0 x 3.5 x 4.0 cm (SAG x AP x TRV). The kidney is normal in size, contour, and echogenicity. Renal cortical thickness is normal. No calculi or focal parenchymal lesions. No hydronephrosis but renal pelvic fullness is seen. LEFT KIDNEY: 11.5 x 5.7 x 4.0 cm (SAG x AP x TRV). The kidney is normal in size, contour, and echogenicity. Renal cortical thickness is normal. No calculi or focal parenchymal lesions. No hydronephrosis. US/US renal BI IMPRESSION: Right renal pelvic fullness. Electronically signed by: Cesia Mayen MD 04/21/2024 04:14 PM EST Dictated By: Cesia Mayen MD Signed By: <Electronically signed by Cesia Mayen MD in OV> 04/21/24 1614 DD/ 1653 TD/TT: 04/20/24 1701 Solid Waste Analyst: [facility] External Provider IMG US PROCEDURES Final Result * (ABNORMAL) POCT HGB A1C (01/28/2024 1:19 PM EDT) Hemoglobin A1C 8.3(A) 4.0 - 6.0 % QC Media Lot # [id number] Lot# Expiration Date ,928 Blood 01/28/2024 1:19 PM EDT Neelima Gómez MD POINT OF CARE TEST EN TER/EDIT ORDERABLES Final Result * (ABNORMAL) ALBUMIN, RANDOM URINE W/CREATININE (11/20/2021 2:21 PM EDT) Pathologist [facility] Microalbumin Urine 14.5 See Note: mg/dL [facility] Comment: Reference Range: ?? Reference Range Not established Microalb/Creat Ratio 558(H) <30 mcg/mg creat [facility] Comment: ?? The ADA defines abnormalities in albumin excretion as follows: ?? Albuminuria Category ?Result (mcg/mg creatinine) ?? Normal to Mildly increased ?? <30 Moderately increased ? 30-299 ?? Severely increased ? > OR = 300 ?? The ADA recommends that at least two of three specimens collected within a 3-6 month period be abnormal before considering a patient to be within a diagnostic category. Creatinine, Urine 26 20 - 275 mg/dL [facility] 11/20/2021 2:21 PM EDT Neelima Gómez MD LAB URINE ORDERABLES Final Result Performing Organization Address City/State/[facility] Co de Phone Number [facility] [address] * (ABNORMAL) LIPID PANEL, STANDARD (11/20/2021 2:21 PM EDT) Chol/HDLC Ratio 6.0(H) <5.0 (calc) [facility] Cholesterol, Total 251(H) <200 mg/dL [facility] HDL Cholesterol 42(L) > OR = 50 mg/dL [facility] LDL Cholesterol 167(H) mg/dL (calc) [facility] Comment: Reference range: <100 ?? Desirable range <100 mg/dL for primary prevention; ?? <70 mg/dL for patients with CHD or diabetic patients ?? with > or = 2 CHD risk factors. ?? LDL-C is now calculated using the Jean ?? calculation, which is a validated novel method providing ?? better accuracy than the Friedewald equation in the ?? estimation of LDL-C. ?? Phan FERNANDO et al. JAYLA. 2013;310(19): 6201-4628 ?? (http://Atlas Wearables.Elecar/faq/NPD409) Non-HDL Cholesterol 209(H) <130 mg/dL (calc) [facility] Comment: For patients with diabetes plus 1 major ASCVD risk ?? factor, treating to a non-HDL-C goal of <100 mg/dL ?? (LDL-C of <70 mg/dL) is considered a therapeutic ?? option. Triglycerides 245(H) <150 mg/dL [facility] Comment: ?? If a non-fasting specimen was collected, consider repeat triglyceride testing on a fasting specimen if clinically indicated. ?? Woo et al. J. of Clin. Lipidol. 2015;9:129-169. ?? 11/20/2021 2:21 PM EDT Neelima Gómez MD LAB BLOOD ORDERABLES Final Result Performing Organization Address City/State/[facility] Co de Phone Number [facility] [address] * Mammography Report 1 (07/17/2021 2:10 PM EDT) Anatomical Region Laterality Modality Breast Bilateral Mammography 07/17/2021 2:10 PM EDT Narrative 07/17/2021 3:47 PM EDT Refer to the Notes tab for result details [facility] Procedure: Mammography Report 1 Procedure Note Provider, MD Jass - 07/29/2022 Refer to the Notes tab for result details [facility] Procedure: Mammography Report 1 Neelima Gómez MD IMG BI PROCEDURES Fin al Result * HPV mRNA E6/E7 (07/23/2018 11:16 AM EDT) HPV mRNA E6/E7 Not Detected NOT DETECTED [facility] Comment: This test was performed using the APTIMA(R) HPV Assay ([employer] This assay detects E6/E7 viral messenger RNA (mRNA) from 14 high-risk HPV types (16,18,31,33,35,39,45,51, 52,56,58,59,66,68). For additional information please refer to: http://education.Travel Beauty/faq/FZD244b6 (This link is being provided for informational/ educational purposes only.) The analytical performance characteristics of this assay have been determined by [employer] [place], [place]. The modifications have not been cleared or approved by the FDA. This assay has been validated pursuant to the CLIA regulations and is used for clinical purposes. Test Performed by [facility], [employer] [place], [address] [place] [address] Chris Simpson M.D., Ph.D., Director of Laboratories , CLIA [id number] Please note: ??Effective 01/16/2016, HPV testing will be performed using [employer]'s APTIMA test which targets mRNA. Detecting mRNA instead of DNA, as in older methods, offers significant improvements in specificity. 07/23/2018 11:1 6 AM EDT Neelima Gómez MD HISTORICAL/NON ORDERA BLE LABS Final Result [facility] [address] from Last 3 Months or Most Recently Relevant to Health Maintenance Insurance * Guarantor: Queta Loya Account Type Relation to Patient Date of Phone Billing Address Personal/Family Self 1970 [address] [place] [address] [facility] * Guarantor: Queta Loya Account Type Relation to Patient Date of Phone Billing Address Personal/Family Self [address] [place] [address] * Guarantor: Queta Loya Account Type Relation to Patient Date of Phone Billing Address Personal/Family Self [address] [place] [address] * Guarantor: Queta Loya Account Type Relation to Patient Date of Phone Billing Address Personal/Family Self [address] [place] [address] Care Teams Supervisor Bonding Relationship Specialty Start Date End Date Neelima Brown MD [address] [place] [phone] PCP - General Family Medicine 01/15/18 Nolvia Delgado Switchboard TroubleshooterFinancial Representative 08/29/23 Dixon ARCHIBALD 03/05/24
--- OUTSIDE RECORDS SUMMARY | 2024-06-25 14:30 | XMS_ITS | Encounter Summary ---
Author Organization [facility] Address [address] [place] [address] Care Team Providers Care Credit Operations Processor Name Role Phone Mckenzie Hernandez MD Primary Care Provider [phone] Encounter Details Date Type Department Care Team (Late st Contact Info) Description 05/11/2024 Lab Requisition [facility] - Main Lab [address] [facility] [employer] [address] Mckenzie Hernandez MD [address] [place] [phone] Hyperkalemia Social History Tobacco Use Types Packs/Day Years Used Date Smoking Tobacco: Never Assessed Comments Unknown Sex and Gender Information Value Date Recorded Sex Assigned at Not on file Legal Sex Female 9:04 AM EST Gender Identity Not on file Sexual Orientation Not on file documented as of this encounter Plan of Treatment Not on file documented as of this encounter Procedures Procedure Name Priority Date/Time Associated Diagnosis Comments BASIC METABOLIC PANEL Routine 05/11/2024 12:35 PM EST Hyperkalemia documented in this encounter Results * (ABNORMAL) Basic metabolic panel (05/11/2024 12:35 PM EST) Sodium 136 133 - 145 mmol/L LAB CHEMISTRY METHOD 05/11/2024 2:58 PM EST [facility] Potassium 5.5 3.5 - 5.5 mmol/L LAB CHEMISTRY METHOD 05/11/2024 2:58 PM EST [facility] Chloride 107 96 - 110 mmol/L LAB CHEMISTRY METHOD 05/11/2024 2:58 PM EST [facility] CO2 25 21 - 32 mmol/L LAB CHEMISTRY METHOD 05/11/2024 2:58 PM [facility] Anion Gap 4 3 - 11 LAB CHEMISTRY METHOD 05/11/2024 2:58 PM [facility] Glucose 215(H) 70 - 100 mg/dL LAB CHEMISTRY METHOD 05/11/2024 2:58 PM [facility] BUN 40(H) 5 - 25 mg/dL LAB CHEMISTRY METHOD 05/11/2024 2:58 PM [facility] Creatinine 2.52(H) 0.50 - 1.10 mg/dL LAB CHEMISTRY METHOD 05/11/2024 2:58 PM [facility] eGFR 22(L) >=60 mL/min/1. 73m2 LAB CHEMISTRY METHOD 05/11/2024 2:58 PM [facility] Comment:Calculation based on the??Chronic Kidney Disease Epidemiology Collaboration (CKD-EPI) equation refit??without adjustment for race. BUN/Creatinine Ratio 15.9 LAB CHEMISTRY METHOD 05/11/2024 2:58 PM [facility] Calcium 8.3(L) 8.5 - 10.5 mg/dL LAB CHEMISTRY METHOD 05/11/2024 2:58 PM [facility] Blood Venous blood specimen / Unknown Venipuncture / Unknown 05/11/2024 12:35 PM EST 05/11/2024 1:57 PM EST us Mckenzie Hernandez MD LAB BLOOD ORDERABLES Final Resu lt [facility] [address] [place] [address], documented in this encounter Visit Diagnoses Diagnosis Hyperkalemia Hyperpotassemia documented in this encounter Care Teams Credit Operations Processor Relationship Specialty Start Date End Date Mckenzie Hernandez MD [address] [place] [phone] PCP - General Hospitalist Medicine 04/27/24 documented as of this encounter
--- OUTSIDE RECORDS SUMMARY | 2024-06-25 14:30 | XMS_ITS | Encounter Summary ---
Author Organization [facility] Address [address] [place] [address] [address] [place] [address] Care Team Providers Care Wrapper Stemmer Hand Name Role Phone Neelima Brown MD Primary Care Provide r Reason for Visit * Reason Onset Date Comments Medication Question 01/10/2023 Encounter Details Date Type Department Care Team ([facility] st Contact Info) Description 01/10/2023 Telephone [facility] MEDICINE [address] [place], [place] [phone] Neelima Brown MD [address] [place], [place] [phone] Medication Question Social History Tobacco Use Types Packs/Day Years Used Date Smoking Tobacco: Never Smokeless Tobacco: Never Alcohol Use Standard Drinks/Week Comments Never 0 (1 standard drink = 0.6 oz pur e alcohol) Comments Unknown Sex and Gender Information Value Date Recorded Sex Assigned at Female 03/05/2022 10:14 AM EDT Legal Sex Female 10:14 AM EDT Gender Identity Female 03/05/2022 10:14 AM EDT Sexual Orientation Straight 03/05/2022 10 :14 AM EDT documented as of this encounter Miscellaneous Notes * Telephone Encounter - Clary Gillis RN - 01/14/2023 11:26 AM EDT T/C to Elis on [phone] for below message, VNA is with pt. Right now. VNA states she is going to call back. * Telephone Encounter - Kailee Avalos - 01/10/2023 2:46 PM EDT Tc from Elis from [facility] home health requesting a call back to discuss pt med list . Best contact # [phone] documented in this encounter Plan of Treatment Upcoming Encounters Date Type Department Care Team (Late st Contact Info) Description 06/29/2024 1:00 PM EST Office Visit [facility] MEDICINE [address] [place] [address] Neelima Brown MD [address] [place] [address] 07/20/2024 2:00 PM EDT Office Visit [facility] OPTOMETRY [address] [place] [address] Nicole Brumfield, OD [address] [place] [address] documented as of this encounter Visit Diagnoses Not on filedocumented in this encounter Care Teams Wrapper Stemmer Hand Relationship Specialty Start Date End Date Neelima Brown MD [address] [place] [address] PCP - General Family Medicine 01/15/18 Yara Salas Tool Dispatcher 07/01/23 09/27/23 Nolvia Delgado Tool DispatcherPaving Plant Operator 08/29/23 Dixon ARCHIBALD 03/05/24 documented as of this encounter
--- OUTSIDE RECORDS SUMMARY | 2024-06-25 14:30 | XMS_ITS | Encounter Summary ---
Author Organization [employer] [facility] Address [address] [place] [address] [address] [place] [address] Care Team Providers Care Legal File Clerk Name Role Phone Neelima Brown MD Primary Care Provide r Encounter Details Date Type Department Care Team ([facility] Contact Info) Description 08/01/2022 Abstract [facility] MEDICINE [address] [place] [address] [phone] Neelima Brown MD [address] [place] [address] [phone] Social History Tobacco Use Types Packs/Day Years [...] Orientation Straight 03/05/2022 10 :14 AM EDT COVID-19 Exposure Response Date Recorded In the last 10 days, have yo u been in contact with someone who was confirmed or suspected to have Coronavirus/COVID-19? No / Unsure 07/11/2022 2:41 PM EST documented as of this encounter Plan of Treatment Upcoming Encounters Date Type Department Care Team ([facility] Contact Info) Description 06/29/2024 1:00 PM EST Office Visit [facility] MEDICINE [address] [place] [address] [phone] Neelima Brown MD [address] [place], [place] [phone] 07/20/2024 2:00 PM EDT Office Visit [facility] OPTOMETRY [address] [place], [place] [phone] Nicole Brumfield, OD [address] [place], [place] [phone] documented as of this encounter Visit Diagnoses Not on filedocumented in this encounter Care Teams Legal File Clerk Relationship Specialty Start Date End Date Neelima Brown MD [address] [place], [place] [phone] PCP - General Family Medicine 01/15/18 Yraa Salas Barytes Grinder 07/01/23 09/27/23 Nolvia Delgado Barytes GrinderElectrical Engineering Intern 08/29/23 Dixon ARCHIBALD 03/05/24 documented as of this encounter
--- OUTSIDE RECORDS SUMMARY | 2024-06-25 14:30 | XMS_ITS | Encounter Summary ---
Author Organization [facility] Address [address] [place] [address] Care Team Providers Care Ripsaw Operator Name Role Phone Mckenzie Hernandez MD Primary Care Provider [phone] Encounter Details Date Type Department Care Team (Late st Contact Info) Description 05/11/2024 Lab Requisition [facility] - Main Lab [address] [facility] [place] [address] Mckenzie Hernandez MD [address] [place] [id number] Chronic kidney disease, unspecified Social History Tobacco Use Types Packs/Day Years [...] Procedure Name Priority Date/Time Associated Diagnosis Comments COMPLETE BLOOD COUNT Routine 05/12/2024 6:38 AM EST Chronic kidney disease, unspecified BASIC METABOLIC PANEL Routine 05/12/2024 6:38 AM EST Chronic kidney disease, unspecified documented in this encounter Results * (ABNORMAL) Basic metabolic panel (05/12/2024 6:38 AM EST) Sodium 140 133 - 145 mmol/L LAB CHEMISTRY METHOD 05/12/2024 11:14 AM EST [facility] Potassium 5.3 3.5 - 5.5 mmol/L LAB CHEMISTRY METHOD 05/12/2024 11:14 AM EST [facility] Chloride 109 96 - 110 mmol/L LAB CHEMISTRY METHOD 05/12/2024 11:14 AM [facility] CO2 24 21 - 32 mmol/L LAB CHEMISTRY METHOD 05/12/2024 11:14 AM [facility] Anion Gap 7 3 - 11 LAB CHEMISTRY METHOD 05/12/2024 11:14 AM [facility] Glucose 74 70 - 100 mg/dL LAB CHEMISTRY METHOD 05/12/2024 11:14 AM [facility] BUN 40(H) 5 - 25 mg/dL LAB CHEMISTRY METHOD 05/12/2024 11:14 AM [facility] Creatinine 2.43(H) 0.50 - 1.10 mg/dL LAB CHEMISTRY METHOD 05/12/2024 11:14 AM [facility] eGFR 23(L) >=60 mL/min/1. 73m2 LAB CHEMISTRY METHOD 05/12/2024 11:14 AM [facility] LAB Comment:Calculation based on the??Chronic Kidney Disease Epidemiology Collaboration (CKD-EPI) equation refit??without adjustment for race. BUN/Creatinine Ratio 16.5 LAB CHEMISTRY METHOD 05/12/2024 11:14 AM [facility] Calcium 8.8 8.5 - 10.5 mg/dL LAB CHEMISTRY METHOD 05/12/2024 11:14 AM [facility] Blood Venous blood specimen / Unknown Venipuncture / Unknown 05/12/2024 6:38 AM EST 05/12/2024 9:54 AM EST us Mckenzie Hernandez MD LAB BLOOD ORDERABLES Final Resu lt [facility] [address] [place] [address], * (ABNORMAL) Complete blood count (05/12/2024 6:38 AM EST) WBC 6.2 4.8 - 10.8 K/mcL LAB HEMETOLOGY METHOD 05/12/2024 10:25 AM [facility] RBC 2.90(L) 3.80 - 4.80 M/[facility] LAB HEMETOLOGY METHOD 05/12/2024 10:25 AM [facility] Hemoglobin 8.3(L) 11.5 - 16.0 g/dL LAB HEMETOLOGY METHOD 05/12/2024 10:25 AM [facility] Hematocrit 25.6(L) 35.0 - 47.0 % LAB HEMETOLOGY METHOD 05/12/2024 10:25 AM [facility] MCV 89.2 79.0 - 98.0 FL LAB HEMETOLOGY METHOD 05/12/2024 10:25 AM [facility] MCH 28.9 27.0 - 32.0 pcg LAB HEMETOLOGY METHOD 05/12/2024 10:25 AM [facility] MCHC 32.4 32.0 - 37.0 g/dL LAB HEMETOLOGY METHOD 05/12/2024 10:25 AM [facility] RDW 15.0 11.0 - 15.0 % LAB HEMETOLOGY METHOD 05/12/2024 10:25 AM [facility] Platelets 166 130 - 400 K/[facility] LAB HEMETOLOGY METHOD 05/12/2024 10:25 AM [facility] MPV 8.5 7.0 - 11.0 FL LAB HEMETOLOGY METHOD 05/12/2024 10:25 AM [facility] NRBC 0.0 <1.0 % LAB HEMETOLOGY METHOD 05/12/2024 10:25 AM [facility] NRBC Absolute 0.00 <0.10 K/[facility] LAB HEMETOLOGY METHOD 05/12/2024 10:25 AM EST [facility] Blood Venous blood specimen / Unknown Venipuncture / Unknown 05/12/2024 6:38 AM EST 05/12/2024 9:56 AM EST us Mckenzie Hernandez MD LAB BLOOD ORDERABLES Final Resu lt Performing Organization Address City/State/[facility] Co de Phone Number [facility] [address] [place] [address], documented in this encounter Visit Diagnoses Diagnosis Chronic kidney disease, unspecified documented in this encounter Care Teams Ripsaw Operator Relationship Specialty Start Date End Date Mckenzie Hernandez MD [address] [place] [id number] PCP - General Hospitalist Medicine 04/27/24 documented as of this encounter
--- OUTSIDE RECORDS SUMMARY | 2024-06-25 14:30 | XMS_ITS | Encounter Summary ---
Author Organization [facility] Address [address] [place] [address] Care Team Providers Care Supervisor White Sugar Name Role Phone Mckenzie Hernandez MD Primary Care Provider [phone] Encounter Details Date Type Department Care Team (Late st Contact Info) Description 05/15/[address] [facility] - Main Lab [address] [facility] [place] [address] Mckenzie Hernandez MD [address] [place] [phone] Hyperkalemia Social History Tobacco Use Types Packs/Day [...] Associated Diagnosis Comments BASIC METABOLIC PANEL Routine 05/18/2024 4:41 AM EST Hyperkalemia documented in this encounter Results * (ABNORMAL) Basic metabolic panel (05/18/2024 4:41 AM EST) Sodium 138 133 - 145 mmol/L LAB CHEMISTRY METHOD 05/18/2024 12:51 PM EST [facility] Potassium 5.7(H) 3.5 - 5.5 mmol/L LAB CHEMISTRY METHOD 05/18/2024 12:51 PM EST [facility] Chloride 108 96 - 110 mmol/L LAB CHEMISTRY METHOD 05/18/2024 12:51 PM EST [facility] CO2 26 21 - 32 mmol/L LAB CHEMISTRY METHOD 05/18/2024 12:51 PM [facility] LAB Anion Gap 4 3 - 11 LAB CHEMISTRY METHOD 05/18/2024 12:51 PM [facility] Glucose 114(H) 70 - 100 mg/dL LAB CHEMISTRY METHOD 05/18/2024 12:51 PM [facility] BUN 52(H) 5 - 25 mg/dL LAB CHEMISTRY METHOD 05/18/2024 12:51 PM [facility] Creatinine 2.35(H) 0.50 - 1.10 mg/dL LAB CHEMISTRY METHOD 05/18/2024 12:51 PM [facility] LAB eGFR 24(L) >=60 mL/min/1. 73m2 LAB CHEMISTRY METHOD 05/18/2024 12:51 PM [facility] LAB Comment:Calculation based on the??Chronic Kidney Disease Epidemiology Collaboration (CKD-EPI) equation refit??without adjustment for race. BUN/Creatinine Ratio 22.1 LAB CHEMISTRY METHOD 05/18/2024 12:51 PM [facility] Calcium 9.0 8.5 - 10.5 mg/dL LAB CHEMISTRY METHOD 05/18/2024 12:51 PM [facility] Blood Venous blood specimen / Unknown Venipuncture / Unknown 05/18/2024 4:41 AM EST 05/18/2024 11:07 AM EST us Mckenzie Hernandez MD LAB BLOOD ORDERABLES Final Resu lt [facility] [address] [place] [address], documented in this encounter Visit Diagnoses Diagnosis Hyperkalemia Hyperpotassemia documented in this encounter Care Teams Supervisor White Sugar Relationship Specialty Start Date End Date Mckenzie Hernandez MD [address] [place] [phone] PCP - General Hospitalist Medicine 04/27/24 documented as of this encounter
--- OUTSIDE RECORDS SUMMARY | 2024-06-25 14:30 | XMS_ITS | Encounter Summary ---
Author Organization [employer] [facility] Address [address] [place] [address] [address] [place] [address] Care Team Providers Care Pen And Pencil Repairer Name Role Phone Neelima Brown MD Primary Care Provide r Reason for Visit * Reason Onset Date Comments call back 06/18/2022 Encounter Details Date Type Department Care Team ([facility] st Contact Info) Description 06/18/2022 Telephone [facility] MEDICINE [address] [place], [place] [phone] Neelima Brown MD [address] [place], [place] [phone] call back Social History Tobacco Use Types Packs/Day Years Used Date Smoking Tobacco: Never Assessed Comments Unknown Sex and Gender Information Value Date Recorded Sex Assigned at Female 03/05/2022 10:14 AM EDT Legal Sex Female 10:14 AM EDT Gender Identity Female 03/05/2022 10:14 AM EDT Sexual Orientation Straight 03/05/2022 10 :14 AM EDT documented as of this encounter Miscellaneous Notes * Telephone Encounter - Joan Champion RN - 06/22/2022 4:35 PM EST TC returned to [facility], jt [facility] pt. Did not show up for appt. Today and appt. Was r/s to 07/11. At this time, [facility] reports pt. Will have to be discharged from their services and a new referral would have to be sent if provider would like to restart. Added to appt. details * Telephone Encounter - Eugenio Gonzalez - 06/18/2022 11:42 AM EST Tc from [facility] requesting a call back regarding pt states wont be able to visit pt due to pt not answering phone call. Please contact [facility] at [phone] documented in this encounter Plan of Treatment Upcoming Encounters Date Type Department Care Team (Late st Contact Info) Description 06/29/2024 1:00 PM EST Office Visit [facility] [address] [place] [address] Neelima Brown MD [address] [place] [address] 07/20/2024 2:00 PM EDT Office Visit [facility] OPTOMETRY [address] [place] [address] Octaviano, Nicole, OD [address] [place] [address] documented as of this encounter Visit Diagnoses Not on filedocumented in this encounter Care Teams Pen And Pencil Repairer Relationship Specialty Start Date End Date Neelima Brown MD [address] [place] [address] PCP - General Family Medicine 01/15/18 Yara Salas Recreation Attendant Supervisor 07/01/23 09/27/23 Nolvia Delgado Recreation Attendant SupervisorElementary Math Tutor 08/29/23 Dixon ARCHIBALD 03/05/24 documented as of this encounter
--- OUTSIDE RECORDS SUMMARY | 2024-06-25 14:30 | XMS_ITS | Encounter Summary ---
Author Organization [facility] Address [address] [place] [address] [address] [place] [address] Care Team Providers Care Weatherization Field Technician Name Role Phone Neelima Brown MD Primary Care Provide r Reason for Visit * Reason Onset Date Comments Medication Question 09/27/2023 Encounter Details Date Type Department Care Team ([facility] st Contact Info) Description 09/27/2023 Telephone [facility] [address] [place], [place] [phone] Neelima Brown MD [address] [place], [place] [phone] Medication Question Social History Tobacco Use Types Packs/Day Years Used Date Smoking Tobacco: Never Passive Smoke Exposure: Never Smokeless Tobacco: Never Alcohol Use Standard [...] encounter Miscellaneous Notes * Telephone Encounter - Jono Maldonado - 09/27/2023 11:03 AM EDT Tc from Josephine with [facility] requesting blister packs for pt's medication. Josephine stated pt has beenhaving trouble organizing medication and is now requesting blister pack. If any questions please contact Josephine at [phone]. documented in this encounter Plan of Treatment Upcoming Encounters Date Type Department Care Team (Late st Contact Info) Description 06/29/2024 1:00 PM EST Office Visit [facility] [address] [place] [address] Neelima Brown MD [address] [place] [address] 07/20/2024 2:00 PM EDT Office Visit [facility] [address] [place] [address] Nicole Brumfield OD [address] [place] [address] documented as of this encounter Goals Goal Patient Goal Type Associated Problems Recent Progress Patient-Stated? Author Eat breakfast every day Diet Tami Short, PharmD Note: Carbs, protein, fruits and veggies Take your medication every day Lifestyle On track( 023 4:40 PM EST) Tami Short, DemetrioD documented as of this encounter Visit Diagnoses Not on filedocumented in this encounter Additional Health Concerns Assessment Noted Time PHQ-9 Depression Total Score: 0 02/29/20 23 1:01 PM EDT documented as of this encounter Care Teams Weatherization Field Technician Relationship Specialty Start Date End Date Neelima Brown MD [address] [place] [phone] PCP - General Family Medicine 01/15/18 Yara Salas Dyer Helper 07/01/23 09/27/23 Nolvia Delgado Dyer HelperChief Radiation Therapist 08/29/23 Dixon ARCHIBALD 03/05/24 documented as of this encounter
--- OUTSIDE RECORDS SUMMARY | 2024-06-25 14:30 | XMS_ITS | Encounter Summary ---
Author Organization [employer] Address [address] [place] [address] [address] [place] [address] Care Team Providers Care Bill Poster Installer Name Role Phone Neelima Brown MD Primary Care Provide r Reason for Visit * Reason Onset Date Comments Chart Prep 06/24/2024 Encounter Details Date Type Department Care Team ([facility] st Contact Info) Description 06/24/2024 Telephone [facility] MED[facility]INE [address] [place], [place] [phone] Neelima Brown MD [address] [place], [place] [phone] Chart Prep Social History Tobacco Use Types Packs/Day Years [...] encounter Miscellaneous Notes * Telephone Encounter - Fabienne Gonzalez MA - 06/24/2024 3:12 PM EST Chart Prep Labs: done Images: done Vaccines due: yes Referrals: Booked appt Screenings: colonoscopy , mammogram , pap smear , eye exam , Foot Exam Overdue care gaps: A1C, Glucose, Sbirt, PHQ-9, ALEX-7 HDF - NOTES ARE IN CHART documented in this encounter Plan of Treatment Upcoming Encounters Date Type Department Care Team (Late st Contact Info) Description 06/29/2024 1:00 PM EST Office Visit [facility]INE [address] [place] [address] Neelima Brown MD [address] [place] [address] 07/20/2024 2:00 PM EDT Office Visit [facility] OPTOMETRY [address] [place] [address] Nicole Brumfield, OD [address] [place] [address] documented as of this encounter Goals Goal Patient Goal Type Associated Problems Recent Progress Patient-Stated? Author Eat breakfast every day Diet No Tami Liz, Eric Note: Carbs, protein, fruits and veggies Take your medication every day Lifestyle On track( 023 4:40 PM EST) No Tami Liz PharmD documented as of this encounter Visit Diagnoses Not on filedocumented in this encounter Additional Health Concerns Assessment Noted Time PHQ-9 Depression Total Score: 0 02/29/20 23 1:01 PM EDT documented as of this encounter Care Teams Bill Poster Installer Relationship Specialty Start Date End Date Neelima Brown MD [address] [place] [phone] PCP - General Family Medicine 01/15/18 Nolvia Delgado Specimen TechnicianEngineer Chief 08/29/23 Dixon ARCHIBALD 03/05/24 documented as of this encounter
--- OUTSIDE RECORDS SUMMARY | 2024-06-25 14:30 | XMS_ITS | Clinical Summary ---
Author Organization [address] Address [address] [place] [address] Phone Care Team Providers Care Coil Winder Name Role Phone Mckenzie Hernandez MD Primary Care Provider [phone] Encounters Date Type Department Care Team Description 05/20/2024 Lab Requisition [facility] Lab [address] [place] [phone] Mckenzie Hernandez MD Hyperkalemia 05/15/2024 Lab Requisition [facility] - Main Lab [address] [place] [address] Mckenzie Hernandez MD Hyperkalemia 05/13/2024 Lab Requisition [facility] Lab [address] [place] [address] Mckenzie Hernandez MD Hyperkalemia 05/12/2024 Lab Requisition [facility] Lab [address] [place] [address] Mckenzie Hernandez MD Hyperkalemia 05/11/2024 Lab Requisition [facility] [address] [place] [address] Mckenzie Hernandez MD Chronic kidney disease, unspecified 05/11/2024 Lab Requisition [facility] [address] [place] [address] Mckenzie Hernandez MD Hyperkalemia 05/07/2024 Lab Requisition [facility] [address] [place] [address] Mckenzie Hernandez MD Chronic kidney disease, unspecified 05/05/2024 Lab Requisition [facility] [address] [place] [address] Mckenzie Hernandez MD Chronic kidney disease, unspecified 04/27/2024 Lab Requisition [facility] Lab [address] [place] [address] Mckenzie Hernandez MD Iron deficiency anemia, unspecified; Vitamin D deficiency, unspecified; Type 2 diabetes mellitus without complications (CMS/HCC) from Last 3 Months Social History Tobacco Use Types Packs/Day Years Used Date Smoking Tobacco: Never Assessed Comments Unknown Sex and Gender Information Value Date Recorded Sex Assigned at Not on file Legal Sex Female 9:04 AM EST Gender Identity Not on file Sexual Orientation Not on file Plan of Treatment Health Maintenance Due Date Last Done Comments Diabetes: Annual Foot Exam 1979 Diabetes: Annual Retina Eye Exam 1979 Cervical Cancer Screening: Pap Smear 1990 Pneumococcal Vaccine: 50+ Years (2 of 2 - PCV) 04/16/2006 04/16/2005 Pneumococcal Vaccine: Pediatrics (0 to 5 Years) and At-Risk Patients (6 to 64 Years) (2 of 2 - PCV) 04/16/2006 04/16/2005 Hepatitis B Vaccines (2 of 3 - 19+ 3-dose series) 08/27/2012 07/30/2012 DTaP,Tdap,and Td Vaccines (2 - Td or Tdap) 08/22/2016 08/22/2006 Zoster Vaccines (1 of 2) 2019 Breast Cancer Screening 07/18/2023 07/17/2021 COVID-19 Vaccine ( season) 2024 Influenza Vaccine (#1) 2024 02/17/2015, 2011 Colorectal Cancer Screening: Colonoscopy 04/27/2024 Depression Screening 04/27/2024 02/28/2023 Diabetes: Annual Urine Albumin-Creatinine Ratio (uACR) 04/27/2024 HIV Screening 04/27/2024 Hepatitis C Screening 04/27/2024 Social Influencers of Health Screening 04/27/2024 Diabetes: Blood Sugar Control Test (HGBA1C) 10/26/2024 04/27/2024, 01/28/2024 Diabetes: Annual GFR (Glomerular Filtration Rate) 05/18/2025 05/18/2024, 05/14/2024, 05/12/2024, Additional history exists Hypertension/CHF/CAD Annual BMP Blood Test 05/18/2025 05/18/2024, 05/14/2024, 05/12/2024, Additional history exists Cholesterol Screening (Lipid Panel) 11/20/2026 11/20/2021 Hepatitis A Vaccines Aged Out 09/15/2012 No [...] on patient's age to complete this topic MMR Vaccines Aged Out No longer eligi ble based on patient's age to complete this topic Meningococcal ACWY Vaccine Aged Out N o longer eligible based on patient's age to complete this topic Meningococcal B Vacine Aged Out No lo nger eligible based on patient's age to complete this topic RSV Immunization Patients Under 20 months Aged Out No longer eligible based on patient's age to complete this topic Varicella Vaccines Aged Out No longer eligible based on patient's age to complete this topic Procedures Procedure Name Priority Date/Time Associated Diagnosis Comments BASIC METABOLIC PANEL Routine 05/18/2024 4:41 AM EST Hyperkalemia BASIC METABOLIC PANEL Routine 05/14/2024 6:06 AM EST Hyperkalemia BASIC METABOLIC PANEL Routine 05/12/2024 6:38 AM EST Chronic kidney disease, unspecified COMPLETE BLOOD COUNT Routine 05/12/2024 6:38 AM EST Chronic kidney disease, unspecified BASIC METABOLIC PANEL Routine 05/11/2024 12:35 PM EST Hyperkalemia BASIC METABOLIC PANEL Routine 05/08/2024 7:00 AM EST Chronic kidney disease, unspecified COMPLETE BLOOD COUNT Routine 05/08/2024 7:00 AM EST Chronic kidney disease, unspecified BASIC METABOLIC PANEL Routine 05/05/2024 6:10 AM EST Chronic kidney disease, unspecified COMPLETE BLOOD COUNT Routine 05/05/2024 6:10 AM EST Chronic kidney disease, unspecified B-TYPE NATRIURETIC PEPTIDE Routine 04/27/2024 4:45 AM EST Iron deficiency anemia, unspecified Vitamin D deficiency, unspecified Type 2 diabetes mellitus without complications (CMS/HCC) THYROID STIMULATING HORMONE Routine 04/27/2024 4:45 AM EST Iron deficiency anemia, unspecified Vitamin D deficiency, unspecified Type 2 diabetes mellitus without complications (CMS/HCC) VITAMIN D 25 HYDROXY Routine 04/27/2024 4:45 AM EST Iron deficiency anemia, unspecified Vitamin D deficiency, unspecified Type 2 diabetes mellitus without complications (CMS/HCC) FOLATE Routine 04/27/2024 4:45 AM EST Iron deficiency anemia, unspecified Vitamin D deficiency, unspecified Type 2 diabetes mellitus without complications (CMS/HCC) HEMOGLOBIN A1C Routine 04/27/2024 4:45 AM EST Iron deficiency anemia, unspecified Vitamin D deficiency, unspecified Type 2 diabetes mellitus without complications (CMS/HCC) COMPREHENSIVE METABOLIC PANEL Routine 04/27/2024 4:45 AM EST Iron deficiency anemia, unspecified Vitamin D deficiency, unspecified Type 2 diabetes mellitus without complications (CMS/HCC) COMPLETE BLOOD COUNT Routine 04/27/2024 4:45 AM EST Iron deficiency anemia, unspecified Vitamin D deficiency, unspecified Type 2 diabetes mellitus without complications (CMS/HCC) from Last 3 Months Results * (ABNORMAL) Basic metabolic panel (05/18/2024 4:41 AM EST) Only the most recent of6 resultswithin the time period is included. Sodium 138 133 - 145 mmol/L LAB CHEMISTRY METHOD 05/18/2024 12:51 PM [facility] Potassium 5.7(H) 3.5 - 5.5 mmol/L LAB CHEMISTRY METHOD 05/18/2024 12:51 PM [facility] Chloride 108 96 - 110 mmol/L LAB CHEMISTRY METHOD 05/18/2024 12:51 PM [facility] CO2 26 21 - [...] AM EST 05/18/2024 11:07 AM EST us Rami A Ashkar MD LAB BLOOD ORDERABLES Final Resu lt [facility] [address] [place] [address], * (ABNORMAL) Complete blood count (05/12/2024 6:38 AM EST) Only the most recent of4 resultswithin the time period is included. WBC 6.2 4.8 - 10.8 K/mcL LAB HEMETOLOGY METHOD 05/12/2024 10:25 AM [facility] RBC 2.90(L) 3.80 - 4.80 M/mcL LAB HEMETOLOGY METHOD 05/12/2024 10:25 AM [facility] Hemoglobin 8.3(L) 11.5 - 16.0 g/dL LAB HEMETOLOGY METHOD 05/12/2024 10:25 AM [facility] Hematocrit 25.6(L) 35.0 - 47.0 % LAB HEMETOLOGY METHOD 05/12/2024 10:25 AM [facility] MCV 89.2 79.0 - 98.0 FL LAB HEMETOLOGY METHOD 05/12/2024 10:25 AM [facility] MCH 28.9 27.0 - 32.0 pcg LAB HEMETOLOGY METHOD 05/12/2024 10:25 AM [facility] MCHC 32.4 32.0 - 37.0 g/dL LAB HEMETOLOGY METHOD 05/12/2024 10:25 AM [facility] RDW 15.0 11.0 - 15.0 % LAB HEMETOLOGY METHOD 05/12/2024 10:25 AM [facility] Platelets 166 130 - 400 K/mcL LAB HEMETOLOGY METHOD 05/12/2024 10:25 AM [facility] MPV 8.5 7.0 - 11.0 FL LAB HEMETOLOGY METHOD 05/12/2024 10:25 AM EST [facility] NRBC 0.0 <1.0 % LAB HEMETOLOGY METHOD 05/12/2024 10:25 AM EST [facility] NRBC Absolute 0.00 <0.10 K/mcL LAB HEMETOLOGY METHOD 05/12/2024 10:25 AM EST [facility] Blood Venous blood specimen / Unknown Venipuncture / Unknown 05/12/2024 6:38 AM EST 05/12/2024 9:56 AM EST us Mckenzie Hernandez MD LAB BLOOD ORDERABLES Final Resu lt Performing Organization Address [facility]/ZIP Co de Phone Number [facility] [address] [place] [address], [place] [phone] * (ABNORMAL) Vitamin D 25 hydroxy (04/27/2024 4:45 AM EST) Vit D, 25-Hydroxy 24.3(L) 30.0 - 80.0 ng/mL LAB CHEMISTRY METHOD 04/27/2024 10:28 AM EST [facility] Blood Venous blood specimen / Unknown Venipuncture / Unknown 04/27/2024 4:45 AM EST 04/27/2024 9:16 AM EST us Mckenzie Hernandez MD LAB BLOOD ORDERABLES Final Resu lt [facility] [address] [place] [address], [place] [phone] * Thyroid stimulating hormone (04/27/2024 4:45 AM EST) TSH 3.85 0.40 - 4.00 mcIU/mL LAB CHEMISTRY METHOD 04/27/2024 10:28 AM EST [facility] Blood Venous blood specimen / Unknown Venipuncture / Unknown 04/27/2024 4:45 AM EST 04/27/2024 9:16 AM EST us Mckenzie Hernandez MD LAB BLOOD ORDERABLES Final Resu lt Performing Organization Address [facility]/ZIP Co de Phone Number [facility] [address] [place] [address], [place] [phone] * (ABNORMAL) B-type natriuretic peptide (04/27/2024 4:45 AM EST) BNP 298(H) <=100 pcg/mL LAB CHEMISTRY METHOD 04/27/2024 10:17 AM EST [facility] Blood Venous blood specimen / Unknown Venipuncture / Unknown 04/27/2024 4:45 AM EST 04/27/2024 9:16 AM EST us Mckenzie Hernandez MD LAB BLOOD ORDERABLES Final Resu lt Performing Organization Address [facility]/ZIP Co de Phone Number [facility] [address] [place] [address], [place] [phone] * (ABNORMAL) Hemoglobin A1c (04/27/2024 4:45 AM EST) [facility] [address] Hemoglobin A1C 6.8(H) <6.5 % LAB CHEMISTRY METHOD 04/27/2024 1:25 PM EST [facility] Mean Bld Glu Estim. 148 mg/dL LAB CHEMISTRY METHOD 04/27/2024 1:25 PM EST [facility] Blood Venous blood specimen / Unknown Venipuncture / Unknown 04/27/2024 4:45 AM EST 04/27/2024 9:16 AM EST us Mckenzie Hernandez MD LAB BLOOD ORDERABLES Final Resu lt Performing Organization Address City/[facility]/ZIP Co de Phone Number [facility] [address] [place] [address], [place] [phone] * Folate (04/27/2024 4:45 AM EST) Folate 14.1 2.8 - 17.0 ng/ml LAB CHEMISTRY METHOD 04/27/2024 10:35 AM [facility] Blood Venous blood specimen / Unknown Venipuncture / Unknown 04/27/2024 4:45 AM EST 04/27/2024 9:16 AM EST us Mckenzie Hernandez MD LAB BLOOD ORDERABLES Final Resu lt [facility] [address] [place] [address], * (ABNORMAL) Comprehensive metabolic panel (04/27/2024 4:45 AM EST) Pathologist [facility] Sodium 138 133 - 145 mmol/L LAB CHEMISTRY METHOD 04/27/2024 10:35 AM [facility] Potassium 5.3 3.5 - 5.5 mmol/L LAB CHEMISTRY METHOD 04/27/2024 10:35 AM [facility] Chloride 107 96 - 110 mmol/L LAB CHEMISTRY METHOD 04/27/2024 10:35 AM [facility] CO2 25 21 - 32 mmol/L LAB CHEMISTRY METHOD 04/27/2024 10:35 AM [facility] Anion Gap 6 3 - 11 LAB CHEMISTRY METHOD 04/27/2024 10:35 AM [facility] Glucose 137(H) 70 - 100 mg/dL LAB CHEMISTRY METHOD 04/27/2024 10:35 AM [facility] BUN 110(H) 5 - 25 mg/dL LAB CHEMISTRY METHOD 04/27/2024 10:35 AM [facility] Creatinine 2.58(H) 0.50 - 1.10 mg/dL LAB CHEMISTRY METHOD 04/27/2024 10:35 AM [facility] eGFR 22(L) >=60 mL/min/1. 73m2 LAB CHEMISTRY METHOD 04/27/2024 10:35 AM [facility] Comment:Calculation based on the??Chronic Kidney Disease Epidemiology Collaboration (CKD-EPI) equation refit??without adjustment for race. BUN/Creatinine Ratio 42.6 LAB CHEMISTRY METHOD 04/27/2024 10:35 AM [facility] Calcium 8.9 8.5 - 10.5 mg/dL LAB CHEMISTRY METHOD 04/27/2024 10:35 AM [facility] AST (SGOT) 75(H) 10 - 42 unit/L LAB CHEMISTRY METHOD 04/27/2024 10:35 AM [facility] ALT (SGPT) 81(H) 10 - 60 unit/L LAB CHEMISTRY METHOD 04/27/2024 10:35 AM [facility] Alkaline Phosphatase 239(H) 42 - 121 unit/L LAB CHEMISTRY METHOD 04/27/2024 10:35 AM [facility] Total Protein 6.6 6.0 - 8.0 g/dL LAB CHEMISTRY METHOD 04/27/2024 10:35 AM [facility] Albumin 2.3(L) 3.2 - 5.0 g/dL LAB CHEMISTRY METHOD 04/27/2024 10:35 AM [facility] Total Bilirubin 0.3 0.0 - 1.4 mg/dL LAB CHEMISTRY METHOD 04/27/2024 10:35 AM [facility] Blood Venous blood specimen / Unknown Venipuncture / Unknown 04/27/2024 4:45 AM EST 04/27/2024 9:16 AM EST us Mckenzie Hernandez MD LAB BLOOD ORDERABLES Final Resu lt [facility] [address] [place] [address], from Last 3 Months Insurance MEDICAID - [place] Care Teams Coil Winder Relationship Specialty Start Date End Date Mckenzie Hernandez MD [address] [place] [phone] PCP - General Hospitalist Medicine 04/27/24
--- OUTSIDE RECORDS SUMMARY | 2024-06-25 14:30 | XMS_ITS | Encounter Summary ---
Author Organization [employer] Address [address] [place] [address] [address] [place] [address] Care Team Providers Care Caterpillar Operator Name Role Phone Neelima Brown MD Primary Care Provide r Reason for Visit * Reason Onset Date Comments F appointment 06/10/2024 Encounter Details Date Type Department Care Team ([facility] st Contact Info) Description 06/10/2024 Telephone [facility] MEDICINE [address] [place], [place] [phone] Winifred Land, JG [address] [place] [address] F appointment Social History Tobacco Use Types Packs/Day Years [...] encounter Miscellaneous Notes * Telephone Encounter - Winifred Land RN - 06/10/2024 2:48 PM EST TC placed to patient [phone] to r/s HDF for tomorrow d/t weather. RN spoke to patients son andr/s for 06/29/24 at 1pm. Son agreed to appointment date and time. Son to f/u PRN. documented in this encounter Plan of Treatment Upcoming Encounters Date Type Department Care Team (Late st Contact Info) Description 06/29/2024 1:00 PM EST Office Visit [facility]ICINE [address] [place] [address] Neelima Brown MD [address] [place] [address] 07/20/2024 2:00 PM EDT Office Visit [facility] OPTOMETRY [address] [place] [address] Nicole Brumfield OD [address] [place] [address] documented as of this encounter Goals Goal Patient Goal Type Associated Problems Recent Progress Patient-Stated? Author Eat breakfast every day Diet No Tami Liz, PharmD Note: Carbs, protein, fruits and veggies Take your medication every day Lifestyle On track( 023 4:40 PM EST) No Tami Liz, DemetrioD documented as of this encounter Visit Diagnoses Not on filedocumented in this encounter Additional Health Concerns Assessment Noted Time PHQ-9 Depression Total Score: 0 02/29/20 23 1:01 PM EDT documented as of this encounter Care Teams Caterpillar Operator Relationship Specialty Start Date End Date Neelima Brown MD [address] [place] [address] PCP - General Family Medicine 01/15/18 Nolvia Delgado Fabrication Department SupervisorBottling Line Attendant 08/29/23 Dixon ARCHIBALD 03/05/24 documented as of this encounter
--- OUTSIDE RECORDS SUMMARY | 2024-06-25 14:30 | XMS_ITS | Encounter Summary ---
Author Organization [facility] Address [address] [place] [address] Care Team Providers Care Film Cutter Name Role Phone Mckenzie Hernandez MD Primary Care Provider [phone] Encounter Details Date Type Department Care Team (Late st Contact Info) Description 05/07/2024 Lab Requisition [facility] - Main Lab [address] [facility] [place] [address] Mckenzie Hernandez MD [address] [place] [phone] Chronic kidney disease, unspecified Social History Tobacco [...] Associated Diagnosis Comments COMPLETE BLOOD COUNT Routine 05/08/2024 7:00 AM EST Chronic kidney disease, unspecified BASIC METABOLIC PANEL Routine 05/08/2024 7:00 AM EST Chronic kidney disease, unspecified documented in this encounter Results * (ABNORMAL) Basic metabolic panel (05/08/2024 7:00 AM EST) Sodium 138 133 - 145 mmol/L LAB CHEMISTRY METHOD 05/08/2024 11:04 AM EST [facility] Potassium 6.4(HH) 3.5 - 5.5 mmol/L LAB CHEMISTRY METHOD 05/08/2024 11:04 AM [facility] Chloride 108 96 - 110 mmol/L LAB CHEMISTRY METHOD 05/08/2024 11:04 AM [facility] CO2 24 21 - 32 mmol/L LAB CHEMISTRY METHOD 05/08/2024 11:04 AM [facility] Anion Gap 6 3 - 11 LAB CHEMISTRY METHOD 05/08/2024 11:04 AM [facility] Glucose 81 70 - 100 mg/dL LAB CHEMISTRY METHOD 05/08/2024 11:04 AM [facility] BUN 39(H) 5 - 25 mg/dL LAB CHEMISTRY METHOD 05/08/2024 11:04 AM [facility] Creatinine 1.95(H) 0.50 - 1.10 mg/dL LAB CHEMISTRY METHOD 05/08/2024 11:04 AM [facility] eGFR 30(L) >=60 mL/min/1. 73m2 LAB CHEMISTRY METHOD 05/08/2024 11:04 AM [facility] Comment:Calculation based on the??Chronic Kidney Disease Epidemiology Collaboration (CKD-EPI) equation refit??without adjustment for race. BUN/Creatinine Ratio 20.0 LAB CHEMISTRY METHOD 05/08/2024 11:04 AM [facility] Calcium 8.5 8.5 - 10.5 mg/dL LAB CHEMISTRY METHOD 05/08/2024 11:04 AM [facility] Blood Venous blood specimen / Unknown Venipuncture / Unknown 05/08/2024 7:00 AM EST 05/08/2024 9:54 AM EST us Mckenzie Hernandez MD LAB BLOOD ORDERABLES Final Resu lt [facility] [address] [place] [address], [place] [phone] * (ABNORMAL) Complete blood count (05/08/2024 7:00 AM EST) [facility] WBC 6.4 4.8 - 10.8 K/mcL LAB HEMETOLOGY METHOD 05/08/2024 10:14 AM [facility] RBC 3.00(L) 3.80 - 4.80 M/mcL LAB HEMETOLOGY METHOD 05/08/2024 10:14 AM [facility] Hemoglobin 8.6(L) 11.5 - 16.0 g/dL LAB HEMETOLOGY METHOD 05/08/2024 10:14 AM [facility] Hematocrit 26.9(L) 35.0 - 47.0 % LAB HEMETOLOGY METHOD 05/08/2024 10:14 AM [facility] MCV 88.8 79.0 - 98.0 FL LAB HEMETOLOGY METHOD 05/08/2024 10:14 AM [facility] MCH 28.4 27.0 - 32.0 pcg LAB HEMETOLOGY METHOD 05/08/2024 10:14 AM [facility] MCHC 32.0 32.0 - 37.0 g/dL LAB HEMETOLOGY METHOD 05/08/2024 10:14 AM [facility] RDW 15.1(H) 11.0 - 15.0 % LAB HEMETOLOGY METHOD 05/08/2024 10:14 AM [facility] Platelets 168 130 - 400 K/mcL LAB HEMETOLOGY METHOD 05/08/2024 10:14 AM [facility] MPV 8.8 7.0 - 11.0 FL LAB HEMETOLOGY METHOD 05/08/2024 10:14 AM [facility] NRBC 0.0 <1.0 % LAB HEMETOLOGY METHOD 05/08/2024 10:14 AM [facility] NRBC Absolute 0.00 <0.10 K/mcL LAB HEMETOLOGY METHOD 05/08/2024 10:14 AM [facility] Blood Venous blood specimen / Unknown Venipuncture / Unknown 05/08/2024 7:00 AM EST 05/08/2024 9:54 AM EST us Mckenzie Hernandez MD LAB BLOOD ORDERABLES Final Resu lt [facility] ([facility] [address] [place] [address], documented in this encounter Visit Diagnoses Diagnosis Chronic kidney disease, unspecified documented in this encounter Care Teams Film Cutter Relationship Specialty Start Date End Date Mckenzie Hernandez MD [address] [place] [phone] PCP - General Hospitalist Medicine 04/27/24 documented as of this encounter
--- OUTSIDE RECORDS SUMMARY | 2024-06-25 14:30 | XMS_ITS | Encounter Summary ---
Author Organization [employer] Address [address] [place] [address] 7[address] [place] [address] Care Team Providers Care Floor Nurse Name Role Phone Neelima Brown MD Primary Care Provide r Reason for Visit * Reason Comments SDOH Concerns SINDI Mcdonnell PT1 Encounter Details Date Type Department Care Team ([facility] st Contact Info) Description 06/18/2024 Patient Outreach [facility] MEDICINE [address] [place], [place] [phone] Neelima Brown MD [address] [place] [address] SDOH Concerns (SINDI Mcdonnell PT1) Social History Tobacco Use Types Packs/Day Years [...] AM EDT documented as of this encounter Progress Notes * Simin Solis - 06/18/2024 2:05 PM EST CHW Simin Solis, submitted PT1 for [facility] today. CHW called patient and left vm informing the patient. documented in this encounter Plan of Treatment Upcoming Encounters Date Type Department Care Team (Late st Contact Info) Description 06/29/2024 1:00 PM EST Office Visit [facility] MED[facility]INE [address] [place] [address] Neelima Brown MD [address] [place] [address] 07/20/2024 2:00 PM EDT Office Visit [facility] OPTOMETRY [address] [place] [address] Nicole rBumfield, OD [address] [place] [address] documented as of this encounter Goals Goal Patient Goal Type Associated Problems Recent Progress Patient-Stated? Author Eat breakfast every day Diet No Tami Liz, PharmD Note: Carbs, protein, fruits and veggies Take your medication every day Lifestyle On track( 023 4:40 PM EST) Tami Short, Eric documented as of this encounter Visit Diagnoses Not on filedocumented in this encounter Additional Health Concerns Assessment Noted Time PHQ-9 Depression Total Score: 0 02/29/20 23 1:01 PM EDT documented as of this encounter Care Teams Floor Nurse Relationship Specialty Start Date End Date Neelima Brown MD [address] [place] [address] PCP - General Family Medicine 01/15/18 Nolvia Delgado Internet Cafe ManagerLettuce Cutter 08/29/23 Dixon ARCHIBALD 03/05/24 documented as of this encounter
--- OUTSIDE RECORDS SUMMARY | 2024-06-25 14:30 | XMS_ITS | Encounter Summary ---
Author Organization [employer] Address [address] [place] [address] 7t [place] [address] Care Team Providers Care Manager Six Sigma Name Role Phone Neelima Brown MD Primary Care Provide r Reason for Visit * Reason Onset Date Comments PT1 06/09/2024 Encounter Details Date Type Department Care Team ([facility] st Contact Info) Description 06/09/2024 Telephone [facility] MEDICINE [address] [place], [place] [phone] Neelima Brown MD [address] [place], [place] [phone] PT1 Social History Tobacco Use Types Packs/Day Years [...] encounter Miscellaneous Notes * Telephone Encounter - Alyce Atul - 06/09/2024 1:25 PM EST PT already has a PT1 active but would like to add a few more locations to it [facility] eye care [address] [place] [address] [facility] 3. Cardiology [address] [place] [address], [address] PT has an up coming appt on 06/25/[address] [place] [address] and would like to know if it's possible to get an answer before then. documented in this encounter Plan of Treatment Upcoming Encounters Date Type Department Care Team (Late st Contact Info) Description 06/29/2024 1:00 PM EST Office Visit [facility] MEDICINE [address] [place] [address] Neelima Brown MD [address] [place] [address] 07/20/2024 2:00 PM EDT Office Visit [facility] OPTOMETRY [address] [place] [address] Nicole Brumfield, OD [address] [place] [address] documented as of this encounter Goals Goal Patient Goal Type Associated Problems Recent Progress Patient-Stated? Author Eat breakfast every day Diet No Tami Liz, PharmD Note: Carbs, protein, fruits and veggies Take your medication every day Lifestyle On track( 023 4:40 PM EST) No Tami Liz, Eric documented as of this encounter Visit Diagnoses Not on filedocumented in this encounter Additional Health Concerns Assessment Noted Time PHQ-9 Depression Total Score: 0 02/29/20 23 1:01 PM EDT documented as of this encounter Care Teams Manager Six Sigma Relationship Specialty Start Date End Date Neelima Brown MD [address] [place] [address] PCP - General Family Medicine 01/15/18 Nolvia Delgado Mathematics InstructorGreen Coffee Blender 08/29/23 Dixon ARCHIBALD 03/05/24 documented as of this encounter
--- OUTSIDE RECORDS SUMMARY | 2024-06-25 14:30 | XMS_ITS | Encounter Summary ---
Author Organization [employer] Address [address] [place] [address] 7[address] [place] [address] Care Team Providers Care Graduate Research Assistant Name Role Phone Neelima Brown MD Primary Care Provide r Reason for Visit * Reason Onset Date Comments Chart Prep 06/10/2024 Encounter Details Date Type Department Care Team (Late st Contact Info) Description 06/10/2024 Telephone [facility] MEDICINE [address] [place], [place] [phone] Fabienne Gonzalez MA Chart Prep Social History Tobacco Use Types [...] Telephone Encounter - Fabienne Gonzalez MA - 06/10/2024 11:51 AM EST Chart Prep Labs: done Images: done Vaccines due: yes Referrals: Booked appts. Screenings: colonoscopy , mammogram , pap smear , Foot Exam Overdue care gaps: A1C, Glucose, Sbirt, SDOH, PHQ-9 documented in this encounter Plan of Treatment Upcoming Encounters Date Type Department Care Team (Late st Contact Info) Description 06/29/2024 1:00 PM EST Office Visit [facility] MEDICINE [address] [place] [address] Neelima Brown MD [address] [place] [address] 07/20/2024 2:00 PM EDT Office Visit [facility] OPTOMETRY [address] [place] [address] Nicole Brumfield, OD [address] [place] [address] documented as of this encounter Goals Goal [...] documented as of this encounter Care Teams Graduate Research Assistant Relationship Specialty Start Date End Date Neelima Brown MD [address] [place] [address] PCP - General Family Medicine 01/15/18 Nolvia Delgado Rope Making Machine OperatorTeaching Associate 08/29/23 [place] ARCHIBALD 03/05/24 documented as of this encounter
--- OUTSIDE RECORDS SUMMARY | 2024-06-25 14:30 | XMS_ITS | Encounter Summary ---
Author Organization [facility] Address [address] [place] [address] Care Team Providers Care Metal Tube Cutter Name Role Phone Mckenzie Hernandez MD Primary Care Provider Encounter Details Date Type Department Care Team (Late st Contact Info) Description 05/13/2024 Lab Requisition [facility] - Main Lab [address] [facility] [place] [address] Mckenzie Hernandez MD [address] [place] [address] Hyperkalemia Social History Tobacco Use Types Packs/Day [...] Associated Diagnosis Comments BASIC METABOLIC PANEL Routine 05/14/2024 6:06 AM EST Hyperkalemia documented in this encounter Results * (ABNORMAL) Basic metabolic panel (05/14/2024 6:06 AM EST) Sodium 137 133 - 145 mmol/L LAB CHEMISTRY METHOD 05/14/2024 1:26 PM EST [facility] Potassium 4.9 3.5 - 5.5 mmol/L LAB CHEMISTRY METHOD 05/14/2024 1:26 PM EST [facility] Chloride 108 96 - 110 mmol/L LAB CHEMISTRY METHOD 05/14/2024 1:26 PM EST [facility] CO2 22 21 - 32 mmol/L LAB CHEMISTRY METHOD 05/14/2024 1:26 PM [facility] Anion Gap 7 3 - 11 LAB CHEMISTRY METHOD 05/14/2024 1:26 PM [facility] Glucose 93 70 - 100 mg/dL LAB CHEMISTRY METHOD 05/14/2024 1:26 PM [facility] BUN 48(H) 5 - 25 mg/dL LAB CHEMISTRY METHOD 05/14/2024 1:26 PM [facility] Creatinine 2.50(H) 0.50 - 1.10 mg/dL LAB CHEMISTRY METHOD 05/14/2024 1:26 PM [facility] eGFR 22(L) >=60 mL/min/1. 73m2 LAB CHEMISTRY METHOD 05/14/2024 1:26 PM [facility] Comment:Calculation based on the??Chronic Kidney Disease Epidemiology Collaboration (CKD-EPI) equation refit??without adjustment for race. BUN/Creatinine Ratio 19.2 LAB CHEMISTRY METHOD 05/14/2024 1:26 PM [facility] Calcium 8.8 8.5 - 10.5 mg/dL LAB CHEMISTRY METHOD 05/14/2024 1:26 PM [facility] Blood Venous blood specimen / Unknown Venipuncture / Unknown 05/14/2024 6:06 AM EST 05/14/2024 11:35 AM EST us Mckenzie Hernandez MD LAB BLOOD ORDERABLES Final Resu lt [facility] [address] [place] [address], documented in this encounter Visit Diagnoses Diagnosis Hyperkalemia Hyperpotassemia documented in this encounter Care Teams Metal Tube Cutter Relationship Specialty Start Date End Date Mckenzie Hernandez MD [address] [place] [address] PCP - General Hospitalist Medicine 04/27/24 documented as of this encounter
--- OUTSIDE RECORDS SUMMARY | 2024-06-25 14:30 | XMS_ITS | Encounter Summary ---
Author Organization [employer] Address [address] [facility] 7t [place] [address] Care Team Providers Care Cleaning Laborer Name Role Phone Neelima Brown MD Primary Care Provide r Reason for Visit * Reason Comments Care Coordination CHW outreach for SDO H PT-1 and food needs-referral completed Encounter Details Date Type Department Care Team (Latest Contact Info) Description 06/18/2024 Patient Outreach [facility] MEDICINE [address] [place] [address] Neelima Brown MD [address] [place] [address] Care Coordination (CHW outreach for SDOH PT-1 and food needs-referral completed /) Social History Tobacco Use Types Packs/Day Years [...] as of this encounter Progress Notes * Hiren [place] - 06/18/2024 2:03 PM EST CHW Hiren [place], placed outbound call to patient for assistance with SDOH as a referral was received by the provider. Patient's name and were confirmed. Patient screened positive for the following SDOH transportation & food insecurities. CHW requested PT-1 plus referred family to [facility] pantries in the local area. Patient agree to follow up with plan. Patient educated on extended clinic hours on Mondays through Wednesdays, and Walk-In Urgent Care Located in [facility]. Patient provided with after-hours line for [facility], , which offer night time triage service and option to transfer to corrosion control engineer provider if needed. documented in this encounter Plan of Treatment Upcoming Encounters Date Type Department Care Team (Late st Contact Info) Description 06/29/2024 1:00 PM EST Office Visit [facility] MEDICINE [address] [place] [address] Neelima Brown MD [address] [place], [place] [phone] 07/20/2024 2:00 PM EDT Office Visit [facility] OPTOMETRY [address] [place] [address] Octaviano, Nicole, OD [address] [place] [address] documented as of this encounter Goals Goal Patient Goal Type Associated Problems Recent Progress Patient-Stated? Author Eat breakfast every day Diet No Tami Liz, DemetrioD Note: Carbs, protein, fruits and veggies Take your medication every day Lifestyle On track( 023 4:40 PM EST) No Tami Liz, Eric documented as of this encounter Visit Diagnoses Not on filedocumented in this encounter Additional Health Concerns Assessment Noted Time PHQ-9 Depression Total Score: 0 02/29/20 23 1:01 PM EDT documented as of this encounter Care Teams Cleaning Laborer Relationship Specialty Start Date End Date Neelima Brown MD [address] [place] [address] PCP - General Family Medicine 01/15/18 Nolvia Delgado Client Experience ManagerAutomatic Machine Attendant 08/29/23 [place] ARCHIBALD 03/05/24 documented as of this encounter
--- OUTSIDE RECORDS SUMMARY | 2024-06-25 14:30 | XMS_ITS | Clinical Summary ---
Demographics Address [address] [facility] [address] [place] [address] Home Phone Preferred Language es Marital Status Rastafarian Affiliation Unknown Race Unknown Ethnic Group Unknown Author Organization [facility] Address [address] [place] [address] Phone Care Team Providers Care Eye Surgeon Name Role Phone Neelima Brown MD Primary Care Provide r Medications sertraline (ZOLOFT) 25 MG tablet TAKE 1 TABLET BY MOUTH EVERY MORNING 11/07/2019 Active pioglitazone (ACTOS) 30 MG tablet TAKE 1 TABLET BY MOUTH EVERY MORNING 11/07/2019 Active isosorbide mononitrate (IMDUR) 30 MG 24 hr tablet TAKE 1 TABLET BY MOUTH EVERY MORNING 11/07/2019 Active gabapentin (NEURONTIN) 300 MG capsule TAKE 1 CAPSULE BY MOUTH THREE TIMES DAILY 11/07/2019 Active Active Problems Problem Noted Date Diagnosed Date Anemia 01/17/2023 Type 2 diabetes mellitus 01/17/2023 Essential (primary) hypertension 01/17/2023 Hyperlipidemia 01/17/2023 Social History Tobacco Use Types Packs/Day Years Used Date Smoking Tobacco: Never Assessed Comments Unknown Sex and Gender Information Value Date Recorded Sex Assigned at Not on file Legal Sex Female 10:14 AM EDT Gender Identity Not on file Sexual Orientation Not on file Plan of Treatment Health Maintenance Due Date Last Done Comments Breast Cancer Screening 1969 Pneumococcal Vaccine: Pediat rics (0 to 5 Years) and At-Risk Patients (6 to 64 Years) (1 of 2 - PCV) 1975 Hepatitis B Vaccine (1 of 3 - 19+ 3-dose series) 05/09 Colorectal Cancer Screening: Annual FOBT 2018 Colorectal Cancer Screening: Colonoscopy 2018 Colorectal Cancer Screening: Sigmoidoscopy 2018 Diabetes: Hemoglobin A1C 01/17/2023 Diabetes: Ophthalmology Exam 01/17/2023 Diabetes: Pedal Pulse Checked 01/17/2023 Diabetes: Sensory Foot Exam 01/17/2023 Diabetes: Visual Foot Exam 01/17/2023 Influenza Vaccine (#1) 2024 [place] Care Teams Eye Surgeon Relationship Specialty Start Date End Date Neelima Brown MD [address] [place] [phone] PCP - General Internal Medicine 12/20/22
--- OUTSIDE RECORDS SUMMARY | 2024-06-25 14:30 | XMS_ITS | Encounter Summary ---
Author Organization [employer] [facility] Address [address] [place] [address] 7t [place] [address] Care Team Providers Care Planer Setter Name Role Phone Neelima Brown MD Primary Care Provide r Encounter Details Date Type Department Care Team ([facility] Contact Info) Description 07/18/2022 Telephone [facility] MEDICINE [address] [place] [phone] Neelima Brown MD [address] [place] [phone] Social History Tobacco Use Types Packs/Day Years [...] Upcoming Encounters Date Type Department Care Team ([facility] Contact Info) Description 06/29/2024 1:00 PM EST Office Visit [facility] MEDICINE [address] [place] [phone] Neelima Brown MD [address] [place], [place] [phone] 07/20/2024 2:00 PM EDT Office Visit [facility] OPTOMETRY [address] [place], [place] [phone] Nicole Brumfield, OD [address] [place], [place] [phone] documented as of this encounter Visit Diagnoses Not on filedocumented in this encounter Care Teams Planer Setter Relationship Specialty Start Date End Date Neeliam Brown MD [address] [place], [place] [phone] PCP - General Family Medicine 01/15/18 Yara Salas Topography Technician 07/01/23 09/27/23 Nolvia Delgado Topography TechnicianClassroom Paraprofessional 08/29/23 [place] ARCHIBALD 03/05/24 documented as of this encounter
--- OUTSIDE RECORDS SUMMARY | 2024-06-25 14:30 | XMS_ITS | Encounter Summary ---
Author Organization [facility] Address [address] [place] [address] Care Team Providers Care Bindery Manager Name Role Phone Mckenzie Hernandez MD Primary Care Provider [phone] Encounter Details Date Type Department Care Team (Latest Contact Info) Description 04/27/2024 Lab Requisition [facility] - Main Lab [address] [facility] [place] [address] Mckenzie Hernandez MD [address] [place] [phone] Iron deficiency anemia, unspecified; Vitamin D deficiency, unspecified; Type 2 diabetes mellitus without complications (CMS/HCC) Social History Tobacco Use Types Packs/Day Years [...] Procedure Name Priority Date/Time Associated Diagnosis Comments VITAMIN D 25 HYDROXY Routine 04/27/2024 4:45 [...] Type 2 diabetes mellitus without complications (CMS/HCC) B-TYPE NATRIURETIC PEPTIDE Routine 04/27/2024 4:45 AM [...] Type 2 diabetes mellitus without complications (CMS/HCC) documented in this encounter Results * (ABNORMAL) B-type natriuretic peptide (04/27/2024 4:45 AM EST) BNP 298(H) <=100 pcg/mL LAB CHEMISTRY METHOD 04/27/2024 10:17 AM EST [facility] Blood Venous blood specimen / Unknown Venipuncture / Unknown 04/27/2024 4:45 AM EST 04/27/2024 9:16 AM EST us Mckenzie Hernandez MD LAB BLOOD ORDERABLES Final Resu lt [facility] [address] [place] [address], * Thyroid stimulating hormone (04/27/2024 4:45 AM EST) TSH 3.85 0.40 - 4.00 mcIU/mL LAB CHEMISTRY METHOD 04/27/2024 10:28 AM EST [facility] Blood Venous blood specimen / Unknown Venipuncture / Unknown 04/27/2024 4:45 AM EST 04/27/2024 9:16 AM EST us Mckenzie Hernandez MD LAB BLOOD ORDERABLES Final Resu lt Performing Organization Address City/[facility]/ZIP Co de Phone Number [facility] [address] [place] [address], [place] [phone] * (ABNORMAL) Vitamin D 25 hydroxy (04/27/2024 4:45 AM EST) [facility] Vit D, 25-Hydroxy 24.3(L) 30.0 - 80.0 ng/mL LAB CHEMISTRY METHOD 04/27/2024 10:28 AM EST [facility] Blood Venous blood specimen / Unknown Venipuncture / Unknown 04/27/2024 4:45 AM EST 04/27/2024 9:16 AM EST us Mckenzie Hernandez MD LAB BLOOD ORDERABLES Final Resu lt Performing Organization Address [facility]/ZIP Co de Phone Number [facility] [address] [place] [address], [place] [phone] * Folate (04/27/2024 4:45 AM EST) [facility] Folate 14.1 2.8 - 17.0 ng/ml LAB CHEMISTRY METHOD 04/27/2024 10:35 AM EST [facility] Blood Venous blood specimen / Unknown Venipuncture / Unknown 04/27/2024 4:45 AM EST 04/27/2024 9:16 AM EST us Mckenzie Hernandez MD LAB BLOOD ORDERABLES Final Resu lt Performing Organization Address City/[facility]/ZIP Co de Phone Number [facility] [address] [place] [address], [place] [phone] * (ABNORMAL) Hemoglobin A1c (04/27/2024 4:45 AM EST) [facility] Hemoglobin A1C 6.8(H) <6.5 % LAB CHEMISTRY METHOD 04/27/2024 1:25 PM [facility] Mean Bld Glu Estim. 148 mg/dL LAB CHEMISTRY METHOD 04/27/2024 1:25 PM [facility] Blood Venous blood specimen / Unknown Venipuncture / Unknown 04/27/2024 4:45 AM EST 04/27/2024 9:16 AM EST us Mckenzie Hernandez MD LAB BLOOD ORDERABLES Final Resu lt [facility] [address] [place] [address], [place] [phone] * (ABNORMAL) Comprehensive metabolic panel (04/27/2024 4:45 AM EST) Sodium 138 133 - 145 mmol/L LAB CHEMISTRY METHOD 04/27/2024 10:35 AM [facility] Potassium 5.3 3.5 - 5.5 mmol/L LAB CHEMISTRY METHOD 04/27/2024 10:35 AM [facility] Chloride 107 96 - 110 mmol/L LAB CHEMISTRY METHOD 04/27/2024 10:35 AM [facility] CO2 25 21 - 32 mmol/L LAB CHEMISTRY METHOD 04/27/2024 10:35 AM [facility] Anion Gap 6 3 - 11 LAB CHEMISTRY METHOD 04/27/2024 10:35 AM [facility] Glucose 137(H) 70 - 100 mg/dL LAB CHEMISTRY METHOD 04/27/2024 10:35 AM [facility] BUN 110(H) 5 - 25 mg/dL LAB CHEMISTRY METHOD 04/27/2024 10:35 AM [facility] Creatinine 2.58(H) 0.50 - 1.10 mg/dL LAB CHEMISTRY METHOD 04/27/2024 10:35 AM [facility] eGFR 22(L) >=60 mL/min/1. 73m2 LAB CHEMISTRY METHOD 04/27/2024 10:35 AM [facility] Comment:Calculation based on the??Chronic Kidney Disease Epidemiology Collaboration (CKD-EPI) equation refit??without adjustment for race. BUN/Creatinine Ratio 42.6 LAB CHEMISTRY METHOD 04/27/2024 10:35 AM [facility] Calcium 8.9 8.5 - 10.5 mg/dL LAB CHEMISTRY METHOD 04/27/2024 10:35 AM [facility] AST (SGOT) 75(H) 10 - 42 unit/L LAB CHEMISTRY METHOD 04/27/2024 10:35 AM [facility] ALT (SGPT) 81(H) 10 - 60 unit/L LAB CHEMISTRY METHOD 04/27/2024 10:35 AM [facility] Alkaline Phosphatase 239(H) 42 - 121 unit/L LAB CHEMISTRY METHOD 04/27/2024 10:35 AM [facility] Total Protein 6.6 6.0 - 8.0 g/dL LAB CHEMISTRY METHOD 04/27/2024 10:35 AM [facility] Albumin 2.3(L) 3.2 - 5.0 g/dL LAB CHEMISTRY METHOD 04/27/2024 10:35 AM [facility] Total Bilirubin 0.3 0.0 - 1.4 mg/dL LAB CHEMISTRY METHOD 04/27/2024 10:35 AM [facility] Blood Venous blood specimen / Unknown Venipuncture / Unknown 04/27/2024 4:45 AM EST 04/27/2024 9:16 AM EST us Mckenzie Hernandez MD LAB BLOOD ORDERABLES Final Resu lt [facility] [address] [place] [address], * (ABNORMAL) Complete blood count (04/27/2024 4:45 AM EST) [facility] WBC 8.5 4.8 - 10.8 K/mcL LAB HEMETOLOGY METHOD 04/27/2024 9:55 AM [facility] RBC 2.80(L) 3.80 - 4.80 M/mcL LAB HEMETOLOGY METHOD 04/27/2024 9:55 AM [facility] Hemoglobin 8.0(L) 11.5 - 16.0 g/dL LAB HEMETOLOGY METHOD 04/27/2024 9:55 AM [facility] Hematocrit 24.7(L) 35.0 - 47.0 % LAB HEMETOLOGY METHOD 04/27/2024 9:55 AM [facility] MCV 89.5 79.0 - 98.0 FL LAB HEMETOLOGY METHOD 04/27/2024 9:55 AM [facility] MCH 29.0 27.0 - 32.0 pcg LAB HEMETOLOGY METHOD 04/27/2024 9:55 AM [facility] MCHC 32.4 32.0 - 37.0 g/dL LAB HEMETOLOGY METHOD 04/27/2024 9:55 AM [facility] RDW 15.8(H) 11.0 - 15.0 % LAB HEMETOLOGY METHOD 04/27/2024 9:55 AM [facility] Platelets 167 130 - 400 K/mcL LAB HEMETOLOGY METHOD 04/27/2024 9:55 AM [facility] MPV 8.9 7.0 - 11.0 FL LAB HEMETOLOGY METHOD 04/27/2024 9:55 AM [facility] NRBC 0.0 <1.0 % LAB HEMETOLOGY METHOD 04/27/2024 9:55 AM [facility] NRBC Absolute 0.00 <0.10 K/mcL LAB HEMETOLOGY METHOD 04/27/2024 9:55 AM EST [facility] Blood Venous blood specimen / Unknown Venipuncture / Unknown 04/27/2024 4:45 AM EST 04/27/2024 9:16 AM EST Mckenzie Hernandez MD LAB BLOOD ORDERABLES Final Resu lt [facility] [address] [place] [address], documented in this encounter Visit Diagnoses Diagnosis Iron deficiency anemia, unspecified Vitamin D deficiency, unspecified Type 2 diabetes mellitus without complications (CMS/HCC) documented in this encounter Care Teams Bindery Manager Relationship Specialty Start Date End Date Mckenzie Hernandez MD [address] [place] [phone] PCP - General Hospitalist Medicine 04/27/24 documented as of this encounter
--- OUTSIDE RECORDS SUMMARY | 2024-06-25 14:30 | XMS_ITS | Encounter Summary ---
Author Organization [employer] Address [address] [place] [address] [address]t [place] [address] Care Team Providers Care Magento Developer Name Role Phone Neelima Brown MD Primary Care Provide r Reason for Visit * Reason Onset Date Comments PT1 06/18/2024 Encounter Details Date Type Department Care Team ([facility] st Contact Info) Description 06/18/2024 Telephone [facility] MEDICINE [address] [place], [place] [phone] Neelima Brown MD [address] [place], [place] [phone] PT1 Social History Tobacco Use Types Packs/Day [...] encounter Miscellaneous Notes * Telephone Encounter - Neelam Roy - 06/18/2024 1:36 PM EST Patient calling requesting PT1 Home Address verified: Y/N: Yes Provider name or facility name: [facility] Facility Address: [address] [place] [address] Escort needed: Y/N: Yes Do you have a wheelchair: If yes- Manual or electric: Visits: 2 x a month documented in this encounter Plan of Treatment Upcoming Encounters Date Type Department Care Team (Late st Contact Info) Description 06/29/2024 1:00 PM EST Office Visit [facility] MEDICINE [address] [place] [address] Neelima Brown MD [address] [place] [address] 07/20/2024 2:00 PM EDT Office Visit [facility] OPTOMETRY [address] [place] [address] Nicole Brumfield, PUSHPA [address] [place] [address] documented as of this encounter Goals Goal Patient Goal Type Associated Problems Recent Progress Patient-Stated? Author Eat breakfast every day Diet No Liz, Tami, PharmD Note: Carbs, protein, fruits and veggies Take your medication every day Lifestyle On track( 023 4:40 PM EST) Tami Short PharmD documented as of this encounter Visit Diagnoses Not on filedocumented in this encounter Additional Health Concerns Assessment Noted Time PHQ-9 Depression Total Score: 0 02/29/20 23 1:01 PM EDT documented as of this encounter Care Teams Magento Developer Relationship Specialty Start Date End Date Neelima Brown MD [address] [place] [address] PCP - General Family Medicine 01/15/18 Nolvia Delgado Neonatal Pediatric NurseLife Support Technician 08/29/23 Dixon ARCHIBALD 03/05/24 documented as of this encounter
--- OUTSIDE RECORDS SUMMARY | 2024-06-25 14:30 | XMS_ITS | Encounter Summary ---
Author Organization [employer] Address [address] [place] [address] 7t [place] [address] Care Team Providers Care Animal Warden Name Role Phone Neelima Brown MD Primary Care Provide r Reason for Visit * Reason Onset Date Comments Med Refill 06/17/2024 Encounter Details Date Type Department Care Team (Late st Contact Info) Description 06/17/2024 Refill [facility] [address] [place], [place] [phone] Neelima Brown MD [address] [place] [address] 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, unspecified whether long filler cigar roller machine insulin use ([facility]) Social History Tobacco Use Types Packs/Day Years [...] AM EDT documented as of this encounter Plan of Treatment Upcoming Encounters Date Type Department Care Team (Late st Contact Info) Description 06/29/2024 1:00 PM EST Office Visit [facility] MEDICINE [address] [place] [address] Neelima Brown MD [address] [place] [address] 07/20/2024 2:00 PM EDT Office Visit [facility] OPTOMETRY [address] [place] [address] Octaviano, Nicole, OD [address] [place] [address] documented as of this encounter Goals Goal Patient Goal Type Associated Problems Recent Progress Patient-Stated? Author Eat breakfast every day Diet No Tami Liz, DemetrioD Note: Carbs, protein, fruits and veggies Take your medication every day Lifestyle On track( 023 4:40 PM EST) No Tami Liz, Eric documented as of this encounter Visit Diagnoses Diagnosis 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, unspecified whether fdc insulin use ([facility]) documented in this encounter Additional Health Concerns Assessment Noted Time PHQ-9 Depression Total Score: 0 02/29/20 23 1:01 PM EDT documented as of this encounter Care Teams Animal Warden Relationship Specialty Start Date End Date Neelima Brown MD [address] [place] [phone] PCP - General Family Medicine 01/15/18 Nolvia Delgado Communications SuperintendentMilitary Pay Technician 08/29/23 [place] ARCHIBALD 03/05/24 documented as of this encounter
--- OUTSIDE RECORDS SUMMARY | 2024-06-25 14:30 | XMS_ITS | Encounter Summary ---
Author Organization [facility] Address [address] [place] [address] 7[address] [place] [address] Care Team Providers Care Education And Outreach Coordinator Name Role Phone Neelima Brown MD Primary Care Provide r Encounter Details Date Type Department Care Team (Late Contact Info) Description 11/14/2022 Telephone [facility] MEDICINE [address] [place], [place] [phone] Neelima Brown MD [address] [place] [address] Social History Tobacco Use Types Packs/Day Years [...] encounter Miscellaneous Notes * Telephone Encounter - Merry Solis - 11/14/2022 12:29 PM EDT Tc from ezequiel with S requesting status on orders for VNA services. Please contact ezequiel at [phone] Fax number: [phone] documented in this encounter Plan of Treatment Upcoming Encounters Date Type Department Care Team (Late st Contact Info) Description 06/29/2024 1:00 PM EST Office Visit [facility] MEDICINE [address] [place] [address] Neelima Brown MD [address] [place] [address] 07/20/2024 2:00 PM EDT Office Visit [facility] OPTOMETRY [address] [place] [address] Nicole Brumfield, OD [address] [place] [address] documented as of this encounter Visit Diagnoses Not on filedocumented in this encounter Care Teams Education And Outreach Coordinator Relationship Specialty Start Date End Date Neelima Brown MD [address] [place] [address] PCP - General Family Medicine 01/15/18 Yara Salas Advertising Account Manager 07/01/23 09/27/23 Nolvia Delgado Advertising Account ManagerHousing Relocation 08/29/23 Dixon ARCHIBALD 03/05/24 documented as of this encounter
--- OUTSIDE RECORDS SUMMARY | 2024-06-25 14:30 | XMS_ITS | Encounter Summary ---
Author Organization [facility] Address [address] [place] [address] Care Team Providers Care Development Administrator Name Role Phone Mckenzie Hernandez MD Primary Care Provider [phone] Encounter Details Date Type Department Care Team (Late st Contact Info) Description 05/05/2024 Lab Requisition [facility] - Main Lab [address] [facility] [address] Mckenzie Hernandez MD [address] [place] [address] Chronic kidney disease, unspecified Social History Tobacco [...] Associated Diagnosis Comments COMPLETE BLOOD COUNT Routine 05/05/2024 6:10 AM EST Chronic kidney disease, unspecified BASIC METABOLIC PANEL Routine 05/05/2024 6:10 AM EST Chronic kidney disease, unspecified documented in this encounter Results * (ABNORMAL) Basic metabolic panel (05/05/2024 6:10 AM EST) Sodium 137 133 - 145 mmol/L LAB CHEMISTRY METHOD 05/05/2024 10:25 AM EST [facility] Potassium 5.6(H) 3.5 - 5.5 mmol/L LAB CHEMISTRY METHOD 05/05/2024 10:25 AM [facility] Chloride 109 96 - 110 mmol/L LAB CHEMISTRY METHOD 05/05/2024 10:25 AM [facility] CO2 26 21 - 32 mmol/L LAB CHEMISTRY METHOD 05/05/2024 10:25 AM [facility] Anion Gap 2(L) 3 - 11 LAB CHEMISTRY METHOD 05/05/2024 10:25 AM [facility] Glucose 85 70 - 100 mg/dL LAB CHEMISTRY METHOD 05/05/2024 10:25 AM [facility] BUN 43(H) 5 - 25 mg/dL LAB CHEMISTRY METHOD 05/05/2024 10:25 AM [facility] Creatinine 1.93(H) 0.50 - 1.10 mg/dL LAB CHEMISTRY METHOD 05/05/2024 10:25 AM [facility] eGFR 30(L) >=60 mL/min/1. 73m2 LAB CHEMISTRY METHOD 05/05/2024 10:25 AM [facility] Comment:Calculation based on the??Chronic Kidney Disease Epidemiology Collaboration (CKD-EPI) equation refit??without adjustment for race. BUN/Creatinine Ratio 22.3 LAB CHEMISTRY METHOD 05/05/2024 10:25 AM [facility] Calcium 8.3(L) 8.5 - 10.5 mg/dL LAB CHEMISTRY METHOD 05/05/2024 10:25 AM [facility] Blood Venous blood specimen / Unknown Venipuncture / Unknown 05/05/2024 6:10 AM EST 05/05/2024 9:07 AM EST us Mckenzie Hernandez MD LAB BLOOD ORDERABLES Final Resu lt [facility] [address] [place] [address], [place] [phone] * (ABNORMAL) Complete blood count (05/05/2024 6:10 AM EST) [facility] WBC 6.2 4.8 - 10.8 K/mcL LAB HEMETOLOGY METHOD 05/05/2024 10:11 AM [facility] RBC 2.80(L) 3.80 - 4.80 M/mcL LAB HEMETOLOGY METHOD 05/05/2024 10:11 AM [facility] Hemoglobin 8.0(L) 11.5 - 16.0 g/dL LAB HEMETOLOGY METHOD 05/05/2024 10:11 AM [facility] Hematocrit 25.6(L) 35.0 - 47.0 % LAB HEMETOLOGY METHOD 05/05/2024 10:11 AM [facility] MCV 90.1 79.0 - 98.0 FL LAB HEMETOLOGY METHOD 05/05/2024 10:11 AM [facility] MCH 28.2 27.0 - 32.0 pcg LAB HEMETOLOGY METHOD 05/05/2024 10:11 AM [facility] MCHC 31.3(L) 32.0 - 37.0 g/dL LAB HEMETOLOGY METHOD 05/05/2024 10:11 AM [facility] RDW 14.8 11.0 - 15.0 % LAB HEMETOLOGY METHOD 05/05/2024 10:11 AM [facility] Platelets 170 130 - 400 K/mcL LAB HEMETOLOGY METHOD 05/05/2024 10:11 AM [facility] MPV 8.9 7.0 - 11.0 FL LAB HEMETOLOGY METHOD 05/05/2024 10:11 AM [facility] NRBC 0.0 <1.0 % LAB HEMETOLOGY METHOD 05/05/2024 10:11 AM [facility] NRBC Absolute 0.00 <0.10 K/mcL LAB HEMETOLOGY METHOD 05/05/2024 10:11 AM EST [facility] Blood Venous blood specimen / Unknown Venipuncture / Unknown 05/05/2024 6:10 AM EST 05/05/2024 9:07 AM EST us Mckenzie Hernandez MD LAB BLOOD ORDERABLES Final Resu lt [facility] [address] [place] [address], documented in this encounter Visit Diagnoses Diagnosis Chronic kidney disease, unspecified documented in this encounter Care Teams Development Administrator Relationship Specialty Start Date End Date Mckenzie Hernandez MD [address] [place] [address] PCP - General Hospitalist Medicine 04/27/24 documented as of this encounter
--- OUTSIDE RECORDS SUMMARY | 2024-06-25 14:30 | XMS_ITS | Encounter Summary ---
Author Organization [facility] Address [address] [place] [address] Care Team Providers Care Ball Warper Tender Name Role Phone Mckenzie Hernandez MD Primary Care Provider [phone] Encounter Details Date Type Department Care Team (Late st Contact Info) Description 05/20/2024 Lab Requisition [facility] - Main Lab [address] [facility] [place] [address] Mckenzie Hernandez MD [address] [place] [address] Hyperkalemia Social History Tobacco Use Types Packs/Day [...] Hyperpotassemia documented in this encounter Care Teams Ball Warper Tender Relationship Specialty Start Date End Date Mckenzie Heranndez MD [address] [place] [address] PCP - General Hospitalist Medicine 04/27/24 documented as of this encounter
--- OUTSIDE RECORDS SUMMARY | 2024-06-25 14:30 | XMS_ITS | Encounter Summary ---
Author Organization [employer] Address [address] [place] [address] 7t [place] [address] Care Team Providers Care Sales Representative Leather Goods Name Role Phone Neelima Brown MD Primary Care Provide r Reason for Visit * Reason Onset Date Comments Rebilitation discharge 11/12/2022 Encounter Details Date Type Department Care Team ([facility] st Contact Info) Description 11/12/2022 Telephone [facility] MEDICINE [address] [place], [place] [phone] Neelima Brown MD [address] [place] [address] Rebilitation discharge Social History Tobacco Use Types Packs/Day Years [...] encounter Miscellaneous Notes * Telephone Encounter - Seun Rendonrero - 11/12/2022 1:36 PM EDT Tc from pt son requesting a follow up appt with provider due to pt being recently discharge last Saturday11/09/[address] [facility] [address] [facility], [place] [address] Please contact son at [phone] documented in this encounter Plan of Treatment Upcoming Encounters Date Type Department Care Team (Late st Contact Info) Description 06/29/2024 1:00 PM EST Office Visit [facility] MEDICINE [address] [place] [address] Neelima Brown MD [address] [place] [address] 07/20/2024 2:00 PM EDT Office Visit [facility] OPTOMETRY [address] [place] [address] Nicole Brumfield OD [address] [place] [address] documented as of this encounter Visit Diagnoses Not on filedocumented in this encounter Care Teams Sales Representative Leather Goods Relationship Specialty Start Date End Date Neelima Brown MD [address] [place] [address] PCP - General Family Medicine 01/15/18 Yara Salas Fiber Worker 07/01/23 09/27/23 Nolvia Delgado Fiber WorkerBid Analyst 08/29/23 Dixon ARCHIBALD 03/05/24 documented as of this encounter
--- OUTSIDE RECORDS SUMMARY | 2024-06-25 14:31 | XMS_ITS ---
Author Organization [facility] Address Unknown Allergies, Adverse Reactions, Alerts Substance Reaction Status Noted Date Resolved Date Shrimp active 07/24/2022 Medications Medication Dose Frequency Directions Start Date End Chi e metFORMIN HCl Oral Tablet 1000 MG 1 {tbl} Give 1 tablet by kelli th every morning and at bedtime for DM 07/25/2022 Aspirin Oral Tablet Chewable 81 MG 1 {tbl} 24 h Give 1 tablet by kelli th one time a day for cad 07/25/2022 Ferrous Sulfate Oral Tablet 325 (65 Fe) MG 1 {tbl} 24 h Give 1 tablet by m out one time a day for anemia 07/25/2022 Insulin Lispro Injection Solution 100 UNIT/ML Inject as per slidin g scale: if 151 - 200 = 10 units; 201 - 250 = 12 units; 251 - 300 = 14 units; 301 - 350 = 16 units; 351 - 999 = 18 units call md for BS <60 or >350, subcutaneously before meals for DM 07/25/2022 Acetaminophen Oral Tablet 325 MG 1 {tbl} Give 1 tablet by kelli th every 24 hours as needed for pain 07/24/2022 Glutose 45 Gel 40 % 1 {Dose} Give 1 d ose by mouth as needed for hypoglycemic protocol Give one tube PO/SL if FSBS <50 and able to swallow PRN. Recheck FSBS 10 minutes after administration and call provider. 07/24/2022 GlucaGen HypoKit Solution Reconstituted 1 MG 1 mg Inject 1 mg subcutaneously as needed for hypoglycemic protocol Special instructions: Glucagen 1 mg hypokit subcutaneous if FSBS below 60 and unable to swallow.Recheck FSBS in 10 minutes and update provider. 07/24/2022 Lisinopril Oral Tablet 5 MG 1 {tbl} 24 h Give 1 tablet by kelli th one time a day for HTN hold for SBP <90 07/25/2022 Atorvastatin Calcium Oral Tablet 80 MG 1 {tbl} Give 1 tablet by kelli th at bedtime for hld 07/25/2022 Pioglitazone HCl Oral Tablet 30 MG 1 {tbl} 24 h Give 1 tablet by kelli th one time a day for DM 07/25/2022 Vitamin D Tablet 1000 24 h Give 1000 u nit orally one time a day for Supplement 07/29/2022 Melatonin Oral Tablet 5 MG 1 {tbl} Give 1 tablet by kelli th at bedtime for Supplement 07/30/2022 Vitamin B12 Oral Tablet Extended Release 1000 MCG 1 {tbl} 24 h Give 1 tablet by kelli th one time a day for Supplement 07/29/2022 Lantus SoloStar Subcutaneous Solution Pen-injector 100 UNIT/ML 23 Inject 23 unit subcutaneously at bedtime for DM 08/14/2022 Ondansetron HCl Oral Tablet 4 MG 1 {tbl} Give 1 tablet by kelli th every 8 hours as needed for nausea and vomiting 08/18/2022 Medications Administered Medication Dose Frequency Status Start Date End Date metFORMIN HCl Oral Tablet 1000 MG 1 {tbl} 08/20/2022 Aspirin Oral Tablet Chewable 81 MG 1 {tbl} 24 h 08/20/2022 Ferrous Sulfate Oral Tablet 325 (65 Fe) MG 1 {tbl} 24 h 08/20/2022 Insulin Lispro Injection Mickie ution 100 UNIT/ML 08/20/2022 Acetaminophen Oral Tablet 325 MG 1 {tbl} 08/19/2022 Glutose 45 Gel 40 % 1 {Dose} 07/24/2022 GlucaGen HypoKit Solution Re constituted 1 MG 1 mg 07/24/2022 Lisinopril Oral Tablet 5 MG 1 {tbl} 24 h Atorvastatin Calcium Oral Tablet 80 MG 1 {tbl} 08/20/2022 Pioglitazone HCl Oral Tablet 30 MG 1 {tbl} 24 h 08/20/2022 Vitamin D Tablet 1000 24 h 08/20/2022 Melatonin Oral Tablet 5 MG 1 {tbl} Vitamin B12 Oral Tablet Exte nded Release 1000 MCG 1 {tbl} 24 h 08/20/2022 Lantus SoloStar Subcutaneous Solution Pen-injector 100 UNIT/ML 23 08/19/2022 Ondansetron HCl Oral Tablet 4 MG 1 {tbl} 08/19/2022 Problems Problem Status Start Date End Date PNEUMONIA, UNSPECIFIED ORGAN ISM (Primary) (J18.9 - ICD-10-CM) ACTIVE 07/24/2022 WEAKNESS (R53.1 - ICD-10-CM) ACTIVE 07/24/2022 DEGENERATIVE MYOPIA, BILATERAL (H44.23 - ICD-10-CM) AC TIVE 07/24/2022 DEPRESSION, UNSPECIFIED (F32.A - ICD-10-CM) ACTIVE 07/24/2022 TYPE 2 DIABETES MELLITUS WIT HOUT COMPLICATIONS (E11.9 - ICD-10-CM) ACTIVE 07/24/2022 URINARY TRACT INFECTION, SIT E NOT SPECIFIED (N39.0 - ICD-10-CM) ACTIVE 07/24/2022 OTHER IRON DEFICIENCY ANEMIAS (D50.8 - ICD-10-CM) ACTI VE 07/24/2022 OBESITY, UNSPECIFIED (E66.9 - ICD-10-CM) ACTIVE 07/24/2022 SYNCOPE AND COLLAPSE (R55 - ICD-10-CM) ACTIVE ACUTE RESPIRATORY FAILURE WI TH HYPOXIA (J96.01 - ICD-10-CM) ACTIVE 07/24/2022 HYPERLIPIDEMIA, UNSPECIFIED (E78.5 - ICD-10-CM) ACTIVE 07/24/2022 IRON DEFICIENCY (E61.1 - ICD-10-CM) ACTIVE 07/24 OTHER LACK OF COORDINATION (R27.8 - ICD-10-CM) ACTIVE 07/24/2022 UNSPECIFIED LACK OF COORDINATION (R27.9 - ICD-10-CM) A CTIVE 07/24/2022 Encounters Encounter Performer Performer Role Encounter Diagnoses Location Date Discharge - Discharged / Transferred to home under care of organized home health service organization - HOME - [facility] 3 06:11 pm EDT - 3 12:08 pm EDT Social History
--- OUTSIDE RECORDS SUMMARY | 2024-06-25 14:31 | XMS_ITS | Encounter Summary ---
Author Organization [employer] Address [address] [place] [address] 7t [place] [address] Care Team Providers Care Search Marketing Analyst Name Role Phone Neelima Brown MD Primary Care Provide r Encounter Details Date Type Department Care Team ([facility] st Contact Info) Description 02/03/2024 Telephone [facility] MEDICINE [address] [place], [place] [phone] Neelima Brown MD [address] [place], [place] [phone] Social History Tobacco Use Types Packs/Day Years [...] Description 06/29/2024 1:00 PM EST Office Visit [facility] MEDICINE [address] [place] [address] Neelima Brown MD [address] [place] [address] 07/20/2024 2:00 PM EDT Office Visit [facility] OPTOMETRY [address] [place] [address] Nicole Brumfield, OD [address] [place] [address] documented as of this encounter Goals Goal [...] documented as of this encounter Care Teams Search Marketing Analyst Relationship Specialty Start Date End Date Neelima Brown MD [address] [place] [address] PCP - General Family Medicine 01/15/18 Nolvia Delgado Ground Crew Lines PersonRap Artist 08/29/23 Dixon ARCHIBALD 03/05/24 documented as of this encounter
--- OUTSIDE RECORDS SUMMARY | 2024-06-25 14:31 | XMS_ITS | Encounter Summary ---
Demographics Address [address] [place] [address] Mobile Phone Email Address Preferred Language es Marital Status Single Christianity Affiliation Unknown Race Other Race Ethnic Group or Author Organization [employer] Address [address] 7[address] [place] [address] Care Team Providers Care Relief Charge Nurse Name Role Phone Neelima Brown MD Primary Care Provide r Encounter Details Date Type Department Care Team (Late st Contact Info) Description 05/31/2024 Orders Only External Provider, [facility] Social History Tobacco Use Types Packs/Day Years [...] t he electric, gas, oil or water [employer] threatened to shut off services in your [...] Description 06/29/2024 1:00 PM EST Office Visit [facility] MEDICINE [address] [place] [address] Neelima Brown MD [address] [place] [address] 07/20/2024 2:00 PM EDT Office Visit [facility] OPTOMETRY [address] [place] [address] Octaviano, Nicole, OD [address] [place] [address] documented as of this encounter Goals Goal Patient Goal Type Associated Problems Recent Progress Patient-Stated? Author Eat breakfast every day Diet No Tami Liz, Eric Note: Carbs, protein, fruits and veggies Take your medication every day Lifestyle On track( 023 4:40 PM EST) No Tami Liz PharmD documented as of this encounter Procedures Procedure Name Priority Date/Time Associated Diagnosis Comments XR CHEST 1 VIEW Routine 06/01/2024 9:30 AM EST US THORACENTESIS Routine 06/01/2024 9:00 AM EST documented in this encounter Results * XR Chest 1 View (06/01/2024 9:30 AM EST) Anatomical Region Laterality Modality Chest Radiographic Kim ging 06/01/2024 9:30 AM EST Narrative 06/01/2024 10:30 AM EST ? [facility] ?[address] ?[place] [address] ?XRay Report ? Signed ? Patient: Loya,Queta ?MR#: [id number] ? : 1970 ?Acct:[id number] ? Age/Sex: 54 / F ?ADM Date: 05/31/24 ? Loc: HO.[facility] ?462-1 ? Attending Dr: Madhu Gonzalez MD ? Ordering Physician: Gene Linares ?? Date of Service: 06/01/24 ?? Procedure(s): XR chest 1V ?? Accession Number(s): [id number] ? cc: Neelima Brown MD; Gene Linares [...] DD/ 0930 ? TD/TT: 06/01/24 0945 ? Global Risk Management Director: MSM ? Procedure Note Duarte Bates - 06/01/[address] [address] XRay Report Signed Patient: Parish Loya#: [id number] : 1970Acct:[id number] Age/Sex: 54 / FADM Date: 05/31/24 Loc: .[facility] 462-[address]: Madhu Gonzalez MD Ordering Physician: Gene Linares Date of Service: 06/01/24 Procedure(s): XR chest 1V Accession Number(s): [id number] cc: Neelima Brown MD; Gene Linares EXAMINATION: [...] Jeremiah Farr MD 06/01/2024 10:27 AM EST Dictated By: Jeremiah Farr MD Signed By: <Electronically signed by Jeremiah Farr MD in OV> 06/01/24 1027 DD/ 0930 TD/TT: 06/01/24 0945 Global Risk Management Director: ERIC [facility] External Provider IMG XR PROCEDURES Final Result * US THORACENTESIS (06/01/2024 9:00 AM EST) Anatomical Region Laterality Modality Abdomen Ultrasound 06/01/2024 9:00 AM EST Narrative 06/01/2024 2:51 PM EST ? [facility] ?[address] ?[place] [address] ? Ultrasound Report ? Signed ? Patient: Loya,Queta ?MR#: [id number] ? : 1970 ?Acct:[id number] ? Age/Sex: 54 / F ?ADM Date: 01/26/25 ? Loc: HO.IMC ?462-1 ? Attending Dr: Madhu Gonzalez MD ? Ordering Physician: Mickie Mckeon MD ?? Date of Service: 06/01/24 ?? Procedure(s): US thoracentesis ?? Accession Number(s): [id number] ? cc: Neelima Brown MD; Mickie Mckeon MD ? PROCEDURE: ?? Ultrasound-guided left thoracentesis ? History: ?? Left pleural effusion ? Specimen: ?? None ? Access: ?? 5 [place]ib[place]ian Yueh catheter ? Medications: ?? 10 mL [...] demonstrate a safe access route. A 5 [place] Yueh catheter was ?? then used to access the pleural cavity. 900 ml of ashish fluid was ?? removed passively. The catheter was then removed. A dressing was ?? applied. A postprocedure chest x-ray will be performed and will be ?? dictated separately. There were no immediate complications. ? The procedure was performed by Gene Linares PA-C and supervised by ?? Segundo ? US/US thoracentesis ?? Impression: Ultrasound-guided left thoracentesis ? Electronically signed by: ??Akash Raymond MD ??06/01/2024 02:48 PM EST RP ? Dictated By: ?Gene Linares ? Signed By: ?<Electronically signed by Gene Linares in OV> ? 06/01/24 1448 ?<Electronically signed by Akash Raymond MD in OV> ? 06/01/24 1450 ? DD/ 0900 ? TD/TT: 06/01/24 0921 ? Global Risk Management Director: ? Procedure Note Jana, Duarte - 06/01/[address] [address] Ultrasound Report Signed Patient: Parish Loya#: [id number] : 1970Acct:[id number] Age/Sex: 54 / FADM Date: 05/31/24 Loc: [facility] 462-[address]: Madhu Gonzalez MD Ordering Physician: Mickie Mckeon MD Date of Service: 06/01/24 Procedure(s): US thoracentesis Accession Number(s): [id number] cc: Neelima Brown MD; Mickie Mckeon MD PROCEDURE: Ultrasound-guided left thoracentesis History: Left pleural effusion Specimen: None Access: 5 [place]ib[place]ian Yueh catheter Medications: 10 mL 1% lidocaine [...] demonstrate a safe access route. A 5 [place] Yueh catheter was then used to access [...] by: Akash Raymond MD 06/01/2024 02:48 PM [facility] Dictated By: Gene Linares Signed By: <Electronically signed by Gene Linares in OV> 06/01/24 1448 <Electronically signed by Akash Raymond MD in OV> 06/01/24 1450 DD/ 0900 TD/TT: 06/01/24 0921 Global Risk Management Director: [facility] External Provider IMG US PROCEDURES Final Result documented in this encounter Visit Diagnoses Not on filedocumented in this encounter Additional Health Concerns Assessment Noted Time PHQ-9 Depression Total Score: 0 02/29/20 23 1:01 PM EDT documented as of this encounter Care Teams Relief Charge Nurse Relationship Specialty Start Date End Date Neelima Brown MD [address] [place] [address] PCP - General Family Medicine 01/15/18 Nolvia Delgado Hvac Sales RepresentativeConduit Reamer Operator 08/29/23 Dixon ARCHIBALD 03/05/24 documented as of this encounter
--- OUTSIDE RECORDS SUMMARY | 2024-06-25 14:31 | XMS_ITS | Encounter Summary ---
Author Organization [employer] [facility] Address [address] [place] [address] [address] [place] [address] Care Team Providers Care Pressure Washer Name Role Phone Neelima Brown MD Primary Care Provide r Reason for Visit * Reason Onset Date Comments Nurse Triage 03/08/2023 Encounter Details Date Type Department Care Team ([facility] st Contact Info) Description 03/08/2023 Telephone [facility] [address] [place], [place] [phone] Neelima Brown MD [address] [place], [place] [phone] Nurse Triage Social History Tobacco Use Types Packs/Day Years [...] is your housing situation today? I have housing today, but I am worried about losing housing in the future 02/20/[address] you li ve. Do you have problems with any of the following? None of the above 02/20/2023 Food Insecurity Answer Date Recorded Within the past 12 months, y ou worried that your food would run out before you got money to buy more: Never True 02/20/2023 Within the past 12 months,th e food you bought just didn't last and you didn't have enough money to get more: Never True Transportation Answer Date Recorded In the past 12 months, has l ack of transportation kept you from medical appts, meetings, work or from getting things needed for daily living? Yes, it has kept me from medical appointments or getting medications. 02/14/2023 Utilities Answer Date Recorded In the past 12 months, has t he electric, gas, oil or water company threatened to shut off services in your home? Yes 02/14/2023 Depression Answer Date Recorded Patient Health Questionnaire-2 Score 0 02/28/2023 Comments Unknown Sex and Gender Information Value Date Recorded Sex Assigned at Female 03/05/2022 10:14 AM EDT Legal Sex Female 10:14 AM EDT Gender Identity Female 03/05/2022 10:14 AM EDT Sexual Orientation Straight 03/05/2022 10 :14 AM EDT documented as of this encounter Miscellaneous Notes * Telephone Encounter - Lois Arnold RN - 03/08/2023 2:49 PM EDT Called pt. Via Local[employer] service secretary [employer] [phone]. Pt. States that she started vomiting x 1 week ago only every am before breakfast and the vomit is green. Pt. Has no other sx. Pt. Is diabetic. Pt. Hasnot had any recent medication changes, pt. Denies burning feeling in esophagus, denies abdominal pain. Pt. Does not vomit throughout the rest of the day,only first thing in am. Protocol Used: Vomiting (Adult) Protocol-Based Disposition: Pt. Offered walk in on Saturday03/11/23 but she wants to talk to a Dr. Ford phone. Televisit given for 03/09/23 at 9am. Positive Triage Question: * Vomiting * All higher-acuity triage questions were negative Care Advice Discussed: * Reassurance and Education - Mild to Moderate Vomiting * Clear Liquids * Telephone Encounter - Mickie Gomez - 03/08/2023 1:29 PM EDT Symptoms: Vomiting, Dizziness Outcome: Schedule a same-day appointment or talk to a nurse or provider today Reason: Caller denied all higher acuity questions The caller accepted this outcome Mauritanian Speaker documented in this encounter Plan of Treatment Upcoming Encounters Date Type Department Care Team (Late st Contact Info) Description 06/29/2024 1:00 PM EST Office Visit [facility] [address] [place] [address] Neelima Brown MD [address] [place], [place] [phone] 07/20/2024 2:00 PM EDT Office Visit [facility] [address] [place] [address] Nicole Brumfield, OD [address] [place] [address] documented as of this encounter Visit Diagnoses Not on filedocumented in this encounter Additional Health Concerns Assessment Noted Time PHQ-9 Depression Total Score: 0 02/29/20 1:01 PM EDT documented as of this encounter Care Teams Pressure Washer Relationship Specialty Start Date End Date Neelima Brown MD [address] [place], [place] [phone] PCP - General Family Medicine 01/15/18 Yara Salas Nursing Professor 07/01/23 09/27/23 Nolvia Delgado Nursing ProfessorClub Lounge Attendant 08/29/23 Dixon ARCHIBALD 03/05/24 documented as of this encounter
--- OUTSIDE RECORDS SUMMARY | 2024-06-25 14:31 | XMS_ITS | Encounter Summary ---
Author Organization [employer] [facility] Address [address] [place] [address] [address] [place] [address] Care Team Providers Care Distributor Of Directories Name Role Phone Neelima Brown MD Primary Care Provide r Reason for Visit * Reason Onset Date Comments Nurse Triage 04/07/2024 Encounter Details Date Type Department Care Team ([facility] st Contact Info) Description 04/07/2024 Telephone [facility] [address] [place], [place] [phone] Neelima Brown MD [address] [place], [place] [phone] Nurse Triage Social History Tobacco Use Types [...] encounter Miscellaneous Notes * Telephone Encounter - Jen Casas RN - 04/07/2024 10:19 AM EST Triage call [place] [id number], Pt son, Bin, is with Pt and Pt is reporting sx. Pt reports abdominal pain at umbilicus. Pt reports this started yesterday after receiving 8U of lantus rather than the 10U as per Doctor request. Pt has continued to vomit and has not been able to keep food/fluids down since last night. Son has given Pt mylanta without effect. Neg for fever, diarrhea, heart burn, sour taste in mouth. BS at time of call is 122. Son reports that Pt hasn't taken PO antibiotics as prescribed since hospital stay for UTI. Pt is advised to seek evaluation at closest ED. Son agrees with this advice. Pt will go to ED for further evaluation and will call for follow up. Protocol Used: Abdominal Pain - Female (Adult) Protocol-Based Disposition: Go to Office or Video Visit Now Positive Triage Question: * Vomiting and abdomen looks much more swollen than usual * All higher-acuity triage questions were negative Care Advice Discussed: * Drink Clear Fluids * Telephone Encounter - Kailee Avalos - 04/07/2024 9:30 AM EST Symptom: Abdominal Pain and vomiting - Female - Not Outcome: Schedule an urgent appointment (within 4 hours) or talk to a nurse or provider soon Reason: Started within the past 3 days The caller accepted this outcome. documented in this encounter Plan of Treatment Upcoming Encounters Date Type Department Care Team (Late st Contact Info) Description 06/29/2024 1:00 PM EST Office Visit [facility] [address] [place] [address] Neelima Brown MD [address] [place] [address] 07/20/2024 2:00 PM EDT Office Visit [facility] [address] [place], [place] [phone] OctavianoNicole caceres, OD [address] [place] [address] documented as of this encounter Goals Goal [...] documented as of this encounter Care Teams Distributor Of Directories Relationship Specialty Start Date End Date Neelima Brown MD [address] [place] [address] PCP - General Family Medicine 01/15/18 Nolvia Delgado Mechanical Engineering CoopTrain System Operator 08/29/23 Dixon ARCHIBALD 03/05/24 documented as of this encounter
--- OUTSIDE RECORDS SUMMARY | 2024-06-25 14:31 | XMS_ITS | Encounter Summary ---
Author Organization [employer] Address [address] [place] [address] [address]t [place] [address] Care Team Providers Care Counter Tacker Name Role Phone Neelima Brown MD Primary Care Provide r Encounter Details Date Type Department Care Team ([facility] st Contact Info) Description 03/15/2023 Telephone [facility] [address] [place], [place] [phone] Neelima Brown MD [address] [place], [place] [phone] Social History Tobacco Use Types Packs/Day Years [...] Miscellaneous Notes * Telephone Encounter - Merry Will - 03/15/2023 10:49 AM EST Tc from pt son requesting a call in regards to a [employer] gift card pt received. Please contact son at [phone] documented in this encounter Plan of Treatment Upcoming Encounters Date Type Department Care Team (Late st Contact Info) Description 06/29/2024 1:00 PM EST Office Visit [facility] [address] [place] [address] Neelima Brown MD [address] [place] [address] 07/20/2024 2:00 PM EDT Office Visit [facility] [address] [place] [address] Octaviano, Nicole, OD [address] [place] [address] documented as of this encounter Visit Diagnoses Not on filedocumented in this encounter Additional Health Concerns Assessment Noted Time PHQ-9 Depression Total Score: 0 02/29/20 23 1:01 PM EDT documented as of this encounter Care Teams Counter Tacker Relationship Specialty Start Date End Date Neelima Brown MD [address] [place] [address] PCP - General Family Medicine 01/15/18 Yara Salas Public Records Officer 07/01/23 09/27/23 Nolvia Delgado Public Records OfficerBreakfast Host 08/29/23 Dixon BRANDT 03/05/24 documented as of this encounter
--- OUTSIDE RECORDS SUMMARY | 2024-06-25 14:31 | XMS_ITS | Encounter Summary ---
Author Organization [employer] Address [address] [place] [address] [address] [place] [address] Care Team Providers Care Electrical Research Engineer Name Role Phone Neelima Brown MD Primary Care Provide r Reason for Visit * Reason Comments Transition Of Care (Tcm) HDF- scheduled Encounter Details Date Type Department Care Team ([facility] st Contact Info) Description 06/04/2024 Patient Outreach [facility] [address] [place], [place] [phone] Neelima Brown MD [address] [place], [place] [phone] Transition Of Care (Tcm) (HDF- scheduled) Social History Tobacco Use Types Packs/Day Years [...] as of this encounter Miscellaneous Notes * Significant Event - Pauline Villarreal - 06/04/2024 9:27 AM EST 06/04/24 0924 Hospital Discharges and Admission for [facility] Type of Visit Hospital Admission Date of Admission/Visit 05/31/24 Date of Discharge 06/03/24 [facility] Diagnosis Acute and chronic respiratory failure with hypoxia ,Bilateral pleural effusion Disposition Discharged Home Follow-Up Actions Follow-Up Needed Provider appointment Follow-Up Outcome Spoke to Patient;Booked Appointment Initial Contact Date 06/04/24 JIM Hudson placed outbound call to patient for HDF outreach. Patient's name and were confirmed. Patient educated on the importance of follow up with provider following inpatient admission. Patient was reminded of upcoming appointment on 06/11/2024 . Discharge summary was submitted into chart . documented in this encounter Plan of Treatment Upcoming Encounters Date Type Department Care Team (Late st Contact Info) Description 06/29/2024 1:00 PM EST Office Visit [facility] [address] [place] [address] Neelima Brown MD [address] [place] [address] 07/20/2024 2:00 PM EDT Office Visit [facility] [address] [place] [address] Nicole Brumfield, OD [address] [place] [address] documented as of this encounter Goals Goal [...] documented as of this encounter Care Teams Electrical Research Engineer Relationship Specialty Start Date End Date Neelima Brown MD [address] [place] [address] PCP - General Family Medicine 01/15/18 Nolvia Delgado Handy ManWord Processor Operator 08/29/23 Dixon ARCHIBALD 03/05/24 documented as of this encounter
== END 2024-06-25 14:24 | disposition home or self-care (01) ==
PROVIDERS: PCP Internal Medicine
DX: R07.9 Chest pain, unspecified (principal); I10 Essential (primary) hypertension; I50.9 Heart failure, unspecified; Z09 Encounter for follow-up examination after completed treatment for conditions other than malignant neoplasm
CPT/HCPCS: 99214

== ENCOUNTER → 2024-06-25 13:32 | Outpatient (BNVA) | payer MEDICAID, SELFPAY | PROVIDERS: PCP Internal Medicine | DX: Z09 Encounter for follow-up examination after completed treatment for conditions other than malignant neoplasm (principal); I11.0 Hypertensive heart disease with heart failure; I50.9 Heart failure, unspecified; R07.9 Chest pain, unspecified | CPT/HCPCS: 99212 ==

== ENCOUNTER 2024-07-07 16:02 | Inpatient (IN) | payer MEDICAID, SELFPAY ==
--- NOTE | ~2024-07-07 | XR_ITS ---
EXAMINATION: XR CHEST CLINICAL INFORMATION: pleural effusion COMPARISON: July 07, 2024. TECHNIQUE: Frontal view of the chest was obtained. FINDINGS: Opacities the in the mid to lower hemithoraces with blunting of the diaphragm and the cardiomediastinal silhouette. Prominence of the interstitial markings bilaterally. No gross pneumothorax. Multilevel thoracolumbar spondylosis. XR/XR chest 1V IMPRESSION: Pulmonary edema and bilateral moderate to large pleural effusions. Overall no gross change. Electronically signed by: Farzad Castillo MD 07/10/2024 10:20 AM MAUDE
--- NOTE | ~2024-07-07 | XR_ITS ---
CLINICAL HISTORY: weakness 1 view chest x-ray Comparison: CR - XR CHEST 2V - 05/30/24 17:19 EST Findings: Moderate bilateral pleural effusions. Consolidative change within the bilateral mid and lower lungs. The heart is partially obscured. The visualized heart is borderline size. No acute fracture. IMPRESSION: Moderate bilateral pleural effusions. Bilateral infiltrates, edema and/or atelectasis. This document has been electronically signed by: Miryam Dixon MD on 07/07/2024 17:46:41
[2024-07-07 16:16] VITALS: BP 142/74; PULSE 80; O2SAT 96
[2024-07-07 16:50] VITALS: BP 143/62; PULSE 79; RESP 18; TEMP 36.6; O2SAT 96; BMI 25.7
--- NOTE | 2024-07-07 16:59 | ECG_ITS ---
Test Reason : CHEST PAIN Blood Pressure : */* mmHG Vent. Rate : 78 BPM Atrial Rate : 78 BPM P-R Int : 150 ms QRS Dur : 74 ms QT Int : 408 ms P-R-T Axes : 39 12 5 degrees QTcB Int : 465 ms Normal sinus rhythm Anterior infarct , age undetermined Abnormal ECG When compared with ECG of 30-May-2024 16:53, Nonspecific T wave abnormality now evident in Anterolateral leads Referred By: Ted English Electronically Signed By: JAYA STOLL MD
--- NOTE | 2024-07-07 17:02 | ED.GENADULT ---
HPI - General Adult General Chief complaint: General Medical Stated complaint: general weakness peripheral edema leg pain Time Seen by Provider: 07/07/24 16:48 Source: patient Mode of arrival: ambulatory Limitations: other History of Present Illness ED Provider: Dr. English HPI narrative: 54-year-old female past medical history with COPD on home oxygen 2-3L/min, chronic systolic and diastolic congestive heart failure and pleural effusions (requiring thoracentesis in the past), diabetes mellitus on insulin, chronic anemia requiring blood transfusion in the past, essential hypertension and hyperlipidemia. Who presents to the ER with weakness and dizziness. She presented similiarly in May. She has been laying down dnies cough fever chest pain nausea or vomiting. Patient was much more hypoxic during the last visit. Related Data Home Medications ?Medication ?Instructions ?Recorded ?Confirmed aspirin 81 mg tablet,delayed 1 tab PO DAILY 07/21/22 06/25/24 release ferrous sulfate 324 mg (65 mg 324 mg PO Q OTHER DAY 04/07/24 06/25/24 iron) tablet,delayed release omeprazole 40 mg capsule,delayed 40 mg PO DAILY@0630 04/07/24 06/25/24 release gabapentin 100 mg capsule 100 mg PO BEDTIME 05/31/24 06/25/24 ondansetron 8 mg disintegrating 8 mg PO Q8H PRN nausea/vomiting 05/31/24 06/25/24 tablet Previous Rx's ?Medication ?Instructions ?Recorded blood sugar diagnostic (FreeStyle #100 ea 10/02/22 Test strips) amlodipine 10 mg tablet 10 mg PO DAILY #30 tabs 09/19/23 insulin glargine 100 unit/mL 10 unit (0.1 mL) subcut BEDTIME 01/14/24 subcutaneous solution (Lantus #10 mL U-100 Insulin) lactulose 10 gram/15 mL oral 10 g (15 mL) PO BID PRN 03/26/24 solution constipation #473 mL furosemide 40 mg tablet (Lasix) 40 mg PO DAILY #90 tabs 06/03/24 Allergies Allergy/AdvReac Type Severity Reaction Status Date / Time shrimp Allergy Swelling Verified 07/07/24 16:52 Review of Systems Review of Systems: Review of systems: General: Weakness Patient denies any fever chills recent illness or falls Musculoskeletal: Denies back pain or body aches or other injuries HEENT: denies headache, runny nose, ear pain Respiratory: shortness of breath, no cough Cardiovascular: no chest pain or palpitations : denies dysuria, frequency Abdomen: no nausea vomiting denies abdominal pain Extremities: swelling and pain to legs Skin: no diaphoresis Yes all other systems are reviewed and are negative PMFSH Past Medical History Medical History (Updated 07/07/24 @ 18:21 by Ted English DO) Chest pain Congestive heart failure Bilateral pleural effusion Anemia CHF (congestive heart failure) Urinary tract infection Hypertension Symptomatic anemia Brain lesion Iron deficiency anemia HLD (hyperlipidemia) Depression Type 2 diabetes mellitus Family History Family History Other Hypertension Social History Social History Household Members: Children Household Members Other:: Daughter Housing: Apartment Do you presently have visiting nurse or other home services: Yes (not sure who it is) Unable to assess alcohol history related to: Unable to respond Alcohol intake: former Patient Tobacco Use Status: Never used Tobacco e-Cigarette/Vaping Use: Never Used Second Hand Smoke Exposure: No Advance Directives: Yes Advance Directives on File: Yes Advance Directives Date on File: 06/19/21 Do you have a plan to hurt others: No Plan service: No Current occupational status: unemployed Physical Exam ED Vital Signs: Vital Signs - 24 hr 07/07/24 16:50 Temperature 97.9 F Pulse Rate 79 Respiratory Rate 18 Blood Pressure 143/62 H Pulse Oximetry 96 Oxygen Delivery Method Room Air BMI result Body Mass Index 25.7 General: Well-appearing well-nourished in no signs of distress HEENT: Normocephalic atraumatic Neck: No signs of JVD, no masses no tenderness or lymphadenopathy Cardiovascular: Regular rate and rhythm Respiratory: decreasedbilaterally Abdomen: Soft nontender no masses Extremities: Normal pedal pulses 2+ edema bilaterally lifting of both legs spinning of the knee well Skin: Dry warm no rashes Back: No tenderness full ROM negative straight leg testing Course Reevaluation(s) Reevaluation #1: patient found to have a CHF exacerbation with increased fluid in her lungs while here labs otherwise look better than previous she still has DILLON dehydration with fluid overload I think she would benefit from admission Medical Decision Making Medical Decision Making MDM Narrative: I will check labs including urinalysis x-ray BNP and reassess Differential Diagnosis Differential Diagnoses: The differential diagnosis associated with the presentation includes weakness dehydration CHF exacerbation UTI dehydration weakness Lab Data 07/07/24 17:28 07/07/24 17:28 Labs: Lab Results 07/07/24 07/07/24 Range/Units 17:28 17:37 WBC 7.3 (4.8-10.8) X10*3/uL RBC 2.78 L (4.20-5.50) X10*6/uL Hgb 7.9 L (12.0-16.0) g/dl Hct 24.3 L (37.0-47.0) % MCV 87.4 (80.0-98.0) fL MCH 28.4 (27.0-33.0) pg MCHC 32.5 (31.0-35.0) g/dl RDW 15.1 (11.0-16.0) % Plt Count 152 L (160-400) X10*3/uL MPV 8.3 L (9.4-12.3) fL Immature Gran % (Auto) 0.4 (0.0-0.4) % Neut % (Auto) 61.7 (45-73) % Lymph % (Auto) 29.3 (20-40) % [place] % (Auto) 5.7 (2-11) % Eos % (Auto) 2.5 (0-4) % Baso % (Auto) 0.4 (0-2) % Lymph # (Auto) 2.1 (1.2-4.9) X10*3/uL [place] # (Auto) 0.4 (0.1-1.2) X10*3/uL Eos # (Auto) 0.2 (0.0-0.4) X10*3/uL Baso # (Auto) 0.0 (0.0-0.2) X10*3/uL Abs Immat Gran (auto) 0.03 (0.00-0.03) X10*3/uL Absolute Neuts (auto) 4.5 (2.0-8.3) x10*3/uL Absolute Nucleated RBC 0.000 (0.0-0.012) X10*3/uL Nucleated RBC % (auto) 0.0 (0.0-0.2) /100WBC APTT 32.8 (26.0-36.8) SEC VBG pH 7.30 L (7.32-7.43) VBG pCO2 44 mmHg VBG pO2 49 mmHg VBG HCO3 22 (22-26) mmol/L VBG O2 Saturation TNP VBG Base Excess -3.9 mmol/L Sodium 139 (135-145) mmol/L Potassium 3.9 (3.3-5.1) mmol/L Chloride 112 H (96-108) mmol/L Carbon Dioxide 20 L (22-29) mmol/L Anion Gap 11 L (12-20) BUN 29 H (9-16) mg/dL Creatinine 2.37 H (0.5-1.4) mg/dL Estim Creat Clear Calc 24.4 Estimated GFR 21 Random Glucose 161 H (60-115) mg/dL Lactic Acid 0.6 (0.5-2.0) mmol/L Calcium 8.2 L D (8.4-10.2) mg/dL Total Bilirubin 0.2 (0.0-1.0) mg/dL Direct Bilirubin < 0.2 (0.0-0.5) mg/dL AST 25 (5-31) U/L ALT 28 (0-31) U/L Alkaline Phosphatase 112 (39-117) U/L Troponin I High Sens 17.7 H (<3.5-17.0) ng/L B-Natriuretic Peptide 600 H (<100) pg/mL Total Protein 7.5 (6.5-8.0) g/dL Albumin 3.1 L (3.5-5.0) g/dL Lipase 38 (8-78) U/L Discharge Plan Discharge Clinical Impression: Dizziness, Acute exacerbation of CHF (congestive heart failure), Weakness Patient Disposition: Admitted As Inpatient Prescriptions: No Action aspirin 81 mg tablet,delayed release (DR/EC) 1 tab PO DAILY (DME) FreeStyle Test Strip See Rx Instructions .Route Qty: 100 0RF Rx Instructions: As directed amlodipine 10 mg Tablet 10 mg PO DAILY Qty: 30 0RF Protocol: Hold for SBP< HOLD for SBP < : 90 lactulose 10 gram/15 mL solution 10 g PO BID PRN (Reason: constipation) Qty: 473 0RF ondansetron 8 mg tablet,disintegrating 8 mg PO Q8H PRN (Reason: nausea/vomiting) gabapentin 100 mg capsule 100 mg PO BEDTIME furosemide [Lasix] 40 mg tablet 40 mg PO DAILY Qty: 90 0RF insulin glargine [Lantus U-100 Insulin] 100 unit/mL Solution 10 unit subcut BEDTIME Qty: 10 0RF omeprazole 40 mg capsule,delayed release(DR/EC) 40 mg PO DAILY@0630 ferrous sulfate 324 mg (65 mg iron) tablet,delayed release (DR/EC) 324 mg PO Q OTHER DAY Print Language: Polish
[2024-07-07 17:36] LABS: MANUAL DIFF FLAG NO
[2024-07-07 17:43] LABS: VBG Base Excess -3.9 mmol/L; VBG HCO3 22 mmol/L (22-26); VBG pCO2 44 mmHg; VBG pO2 49 mmHg
[2024-07-07 17:43] LABS: Venous Blood Gas Refer to POC result
[2024-07-07 17:44] LABS: Basophils Percent Auto 0.4 % (0-2); Eosinophils Absolute Auto 0.2 X10*3/uL (0.0-0.4); Eosinophils Percent Auto 2.5 % (0-4); Hematocrit 24.3 % (37.0-47.0); Hemoglobin 7.9 g/dl (12.0-16.0); Imm Gran Abs Auto 0.03 X10*3/uL (0.00-0.03); Imm Gran Pct Auto 0.4 % (0.0-0.4); Lymphocytes Absolute Auto 2.1 X10*3/uL (1.2-4.9); Lymphocytes Percent Auto 29.3 % (20-40); Mean Corpuscular HGB Conc 32.5 g/dl (31.0-35.0); Mean Corpuscular Hemoglobin 28.4 pg (27.0-33.0); Mean Corpuscular Volume 87.4 fL (80.0-98.0); Mean Platelet Volume 8.3 fL (9.4-12.3); Monocytes Absolute Auto 0.4 X10*3/uL (0.1-1.2); Monocytes Percent Auto 5.7 % (2-11); Neutrophils Absolute Auto 4.5 x10*3/uL (2.0-8.3); Neutrophils Percent Auto 61.7 % (45-73); Platelet Count 152 X10*3/uL (160-400); Red Blood Count 2.78 X10*6/uL (4.20-5.50); Red Cell Distribution Width 15.1 % (11.0-16.0); White Blood Count 7.3 X10*3/uL (4.8-10.8)
[2024-07-07 17:48] LABS: Partial Thromboplastin Time 32.8 SEC (26.0-36.8)
[2024-07-07 17:58] LABS: Lactic Acid 0.6 mmol/L (0.5-2.0)
[2024-07-07 17:59] LABS: Alanine Aminotransferase 28 U/L (0-31); Albumin Level 3.1 g/dL (3.5-5.0); Alkaline Phosphatase 112 U/L (39-117); Anion Gap 11 (12-20); Aspartate Amino Transferase 25 U/L (5-31); Bilirubin Direct < 0.2 mg/dL (0.0-0.5); Bilirubin Total 0.2 mg/dL (0.0-1.0); Blood Urea Nitrogen 29 mg/dL (9-16); Calcium 8.2 mg/dL (8.4-10.2); Carbon Dioxide 20 mmol/L (22-29); Chloride 112 mmol/L (96-108); Creatinine Clr Calc Pharmacy 24.4; Estimated Glomerular Filt Rate 21; Glucose Random 161 mg/dL (60-115); Lipase 38 U/L (8-78); Potassium 3.9 mmol/L (3.3-5.1); Sodium 139 mmol/L (135-145); Total Protein 7.5 g/dL (6.5-8.0)
[2024-07-07 18:03] LABS: B Type Natriuretic Peptide 600 pg/mL (<100); Troponin-I High Sensitivity 17.7 ng/L (<3.5-17.0)
[2024-07-07 18:20] LABS: Influenza A PCR NEGATIVE (Negative); Influenza B PCR NEGATIVE (Negative); Resp Syncy Virus RNA Qual PCR NEGATIVE (Negative); SARS COV2 PCR INHOUSE NEGATIVE (Negative)
[2024-07-07 18:54] VITALS: BP 148/60; PULSE 79; RESP 19; TEMP 36.5; O2SAT 94
[2024-07-07 18:57] VITALS: BP 148/60
[2024-07-07] MEDS: Furosemide 40 MG/4 ML VIAL IVPUSH (18:57)
--- OUTSIDE RECORDS SUMMARY | 2024-07-07 20:28 | XMS_ITS | Encounter Summary ---
Author Organization [employer] [facility] Address [address] [place] [address] 7t [place] [address] Care Team Providers Care Charter Driver Name Role Phone Neelima Brown MD Primary Care Provide r Encounter Details Date Type Department Care Team (Late Contact Info) Description 08/01/2022 Abstract [facility] [address] [place] [address] Neelima Bronw MD [address] [place] [address] Social History Tobacco Use Types Packs/Day Years [...] Encounters Date Type Department Care Team (Late Contact Info) Description 07/20/2024 2:00 PM EDT Office Visit [facility] [address] [place] [address] Nicole Brumfield, OD [address] [place], [place] [phone] 09/25/2024 2:30 PM EDT Office Visit [facility] [address] [place], [place] [phone] Neelima Brown MD [address] [place] [address] documented as of this encounter Visit Diagnoses Not on filedocumented in this encounter Care Teams Charter Driver Relationship Specialty Start Date End Date Neelima Brown MD [address] [place] [address] PCP - General Family Medicine 01/15/18 Yara Salas Dietitian 07/01/23 09/27/23 Nolvia Delgado DietitianPicker Box Operator 08/29/23 Dixon ARCHIBALD 03/05/24 documented as of this encounter
--- OUTSIDE RECORDS SUMMARY | 2024-07-07 20:28 | XMS_ITS | Encounter Summary ---
Author Organization [facility] Address [address] [place] [address] Care Team Providers Care Mechanical Technical Service Specialist Name Role Phone Mckenzie Hernandez MD Primary Care Provider [phone] Encounter Details Date Type Department Care Team (Late st Contact Info) Description 05/11/2024 Lab Requisition [facility] - Main Lab [address] [facility] [place] [address] Mckenzie Hernandez MD [address] [place] [address] Chronic kidney disease, unspecified Social History Tobacco [...] LAB CHEMISTRY METHOD 05/12/2024 11:14 AM EST [facility] Potassium 5.3 3.5 - 5.5 mmol/L LAB CHEMISTRY METHOD 05/12/2024 11:14 AM EST [facility] LAB Chloride 109 96 - 110 mmol/L LAB CHEMISTRY METHOD 05/12/2024 11:14 AM [facility] LAB CO2 24 21 - 32 mmol/L LAB CHEMISTRY METHOD 05/12/2024 11:14 AM [facility] LAB Anion Gap 7 3 - 11 LAB CHEMISTRY METHOD 05/12/2024 11:14 AM [facility] LAB Glucose 74 70 - 100 mg/dL LAB CHEMISTRY METHOD 05/12/2024 11:14 AM [facility] LAB BUN 40(H) 5 - 25 mg/dL LAB CHEMISTRY METHOD 05/12/2024 11:14 AM [facility] LAB Creatinine 2.43(H) 0.50 - 1.10 mg/dL LAB CHEMISTRY METHOD 05/12/2024 11:14 AM [facility] LAB eGFR 23(L) >=60 mL/min/1. 73m2 LAB CHEMISTRY METHOD 05/12/2024 11:14 AM [facility] LAB Comment:Calculation based on the??Chronic Kidney Disease Epidemiology Collaboration (CKD-EPI) equation refit??without adjustment for race. BUN/Creatinine Ratio 16.5 LAB CHEMISTRY METHOD 05/12/2024 11:14 AM [facility] LAB Calcium 8.8 8.5 - 10.5 mg/dL LAB CHEMISTRY METHOD 05/12/2024 11:14 AM [facility] LAB Blood Venous blood specimen / Unknown Venipuncture / Unknown 05/12/2024 6:38 AM EST 05/12/2024 9:54 AM EST us Mckenzie Hernandez MD LAB BLOOD ORDERABLES Final Resu lt [facility] LAB [address] [place] [address], * (ABNORMAL) Complete blood count (05/12/2024 6:38 AM EST) WBC 6.2 4.8 - 10.8 K/mcL LAB HEMETOLOGY METHOD 05/12/2024 10:25 AM [facility] LAB RBC 2.90(L) 3.80 - 4.80 M/[facility] LAB HEMETOLOGY METHOD 05/12/2024 10:25 AM [facility] LAB Hemoglobin 8.3(L) 11.5 - 16.0 g/dL LAB HEMETOLOGY METHOD 05/12/2024 10:25 AM [facility] LAB Hematocrit 25.6(L) 35.0 - 47.0 % LAB HEMETOLOGY METHOD 05/12/2024 10:25 AM [facility] LAB MCV 89.2 79.0 - 98.0 FL LAB HEMETOLOGY METHOD 05/12/2024 10:25 AM [facility] LAB MCH 28.9 27.0 - 32.0 pcg LAB HEMETOLOGY METHOD 05/12/2024 10:25 AM [facility] LAB MCHC 32.4 32.0 - 37.0 g/dL LAB HEMETOLOGY METHOD 05/12/2024 10:25 AM [facility] LAB RDW 15.0 11.0 - 15.0 % LAB HEMETOLOGY METHOD 05/12/2024 10:25 AM [facility] LAB Platelets 166 130 - 400 K/[facility] LAB HEMETOLOGY METHOD 05/12/2024 10:25 AM [facility] LAB MPV 8.5 7.0 - 11.0 FL LAB HEMETOLOGY METHOD 05/12/2024 10:25 AM [facility] LAB NRBC 0.0 <1.0 % LAB HEMETOLOGY METHOD 05/12/2024 10:25 AM [facility] LAB NRBC Absolute 0.00 <0.10 K/[facility] LAB HEMETOLOGY METHOD 05/12/2024 10:25 AM EST [facility] Blood Venous blood specimen / Unknown Venipuncture / Unknown 05/12/2024 6:38 AM EST 05/12/2024 9:56 AM EST us Mckenzie Hernandez MD LAB BLOOD ORDERABLES Final Resu lt Performing Organization Address City/State/[facility] Co de Phone Number [facility] [address] [place] [address], documented in this encounter Visit Diagnoses Diagnosis Chronic kidney disease, unspecified documented in this encounter Care Teams Mechanical Technical Service Specialist Relationship Specialty Start Date End Date Mckenzie Hernandez MD [address] [place] [phone] PCP - General Hospitalist Medicine 04/27/24 documented as of this encounter
--- OUTSIDE RECORDS SUMMARY | 2024-07-07 20:28 | XMS_ITS | Clinical Summary ---
Demographics Address [address] [place] [address] Home Phone Preferred Language es Marital Status Adventism Affiliation Unknown Race Unknown Ethnic Group Unknown Author Organization [facility] Address [address] [place] [address] Phone Care Team Providers Care Lot Associate Name Role Phone Neelima Brown MD Primary [...] 01/17/2023 Influenza Vaccine (#1) 2024 [place] Care Teams Lot Associate Relationship Specialty Start Date End Date Neelima Brown MD [address] [place] [phone] PCP - General Internal Medicine 12/20/22
--- OUTSIDE RECORDS SUMMARY | 2024-07-07 20:28 | XMS_ITS | Encounter Summary ---
Author Organization [facility] Address [address] [place] [address] Care Team Providers Care Insemination Worker Name Role Phone Mckenzie Hernandez MD Primary Care Provider [phone] Encounter Details Date Type Department Care Team (Latest Contact Info) Description 04/27/2024 Lab Requisition [facility] - Main Lab [address] [facility] [place] [address] Mckenzie Hernandez MD [address] [place] [address] Iron deficiency anemia, unspecified; Vitamin D deficiency, [...] LAB CHEMISTRY METHOD 04/27/2024 10:17 AM EST [facility] LAB Blood Venous blood specimen / Unknown Venipuncture / Unknown 04/27/2024 4:45 AM EST 04/27/2024 9:16 AM EST us Mckenzie Hernandez MD LAB BLOOD ORDERABLES Final Resu lt [facility] LAB [address] [place] [address], * Thyroid stimulating hormone (04/27/2024 4:45 AM EST) TSH 3.85 0.40 - 4.00 mcIU/mL LAB CHEMISTRY METHOD 04/27/2024 10:28 AM EST [facility] LAB Blood Venous blood specimen / Unknown Venipuncture / Unknown 04/27/2024 4:45 AM EST 04/27/2024 9:16 AM EST us Mckenzie Hernandez MD LAB BLOOD ORDERABLES Final Resu lt Performing Organization Address City/[facility]/ZIP Co de Phone Number [facility] LAB [address] [place] [address], [place] [phone] * (ABNORMAL) Vitamin D 25 hydroxy (04/27/2024 4:45 AM EST) [facility] Vit D, 25-Hydroxy 24.3(L) 30.0 - 80.0 ng/mL LAB CHEMISTRY METHOD 04/27/2024 10:28 AM EST [facility] LAB Blood Venous blood specimen / Unknown Venipuncture / Unknown 04/27/2024 4:45 AM EST 04/27/2024 9:16 AM EST us Mckenzie Hernandez MD LAB BLOOD ORDERABLES Final Resu lt Performing Organization Address [facility]/ZIP Co de Phone Number [facility] [address] [place] [address], [place] [phone] * Folate (04/27/2024 4:45 AM EST) [facility] Folate 14.1 2.8 - 17.0 ng/ml LAB CHEMISTRY METHOD 04/27/2024 10:35 AM EST [facility] LAB Blood Venous blood specimen / Unknown Venipuncture / Unknown 04/27/2024 4:45 AM EST 04/27/2024 9:16 AM EST us Mckenzie Hernandez MD LAB BLOOD ORDERABLES Final Resu lt Performing Organization Address City/[facility]/ZIP Co de Phone Number [facility] [address] [place] [address], [place] [phone] * (ABNORMAL) Hemoglobin A1c (04/27/2024 4:45 AM EST) [facility] Hemoglobin A1C 6.8(H) <6.5 % LAB CHEMISTRY METHOD 04/27/2024 1:25 PM [facility] LAB Mean Bld Glu Estim. 148 mg/dL LAB CHEMISTRY METHOD 04/27/2024 1:25 PM [facility] Blood Venous blood specimen / Unknown Venipuncture / Unknown 04/27/2024 4:45 AM EST 04/27/2024 9:16 AM EST us Mckenzie Hernandez MD LAB BLOOD ORDERABLES Final Resu lt [facility] [address] [place] [address], [place] [phone] * (ABNORMAL) Comprehensive metabolic panel (04/27/2024 4:45 [...] MD LAB BLOOD ORDERABLES Final Resu lt [facility] [address] [place] [address], * (ABNORMAL) Complete blood count (04/27/2024 4:45 AM EST) [facility] WBC 8.5 4.8 - 10.8 K/mcL LAB HEMETOLOGY METHOD 04/27/2024 9:55 AM [facility] LAB RBC 2.80(L) 3.80 - 4.80 M/mcL LAB HEMETOLOGY METHOD 04/27/2024 9:55 AM [facility] Hemoglobin 8.0(L) 11.5 - 16.0 g/dL LAB HEMETOLOGY METHOD 04/27/2024 9:55 AM [facility] LAB Hematocrit 24.7(L) 35.0 - 47.0 % LAB HEMETOLOGY METHOD 04/27/2024 9:55 AM [facility] LAB MCV 89.5 79.0 - 98.0 FL LAB HEMETOLOGY METHOD 04/27/2024 9:55 AM [facility] LAB MCH 29.0 27.0 - 32.0 pcg LAB HEMETOLOGY METHOD 04/27/2024 9:55 AM [facility] MCHC 32.4 32.0 - 37.0 g/dL LAB HEMETOLOGY METHOD 04/27/2024 9:55 AM [facility] LAB RDW 15.8(H) 11.0 - 15.0 % LAB HEMETOLOGY METHOD 04/27/2024 9:55 AM [facility] LAB Platelets 167 130 - 400 K/mcL LAB HEMETOLOGY METHOD 04/27/2024 9:55 AM [facility] LAB MPV 8.9 7.0 - 11.0 FL LAB HEMETOLOGY METHOD 04/27/2024 9:55 AM [facility] LAB NRBC 0.0 <1.0 % LAB HEMETOLOGY METHOD 04/27/2024 9:55 AM [facility] LAB NRBC Absolute 0.00 <0.10 K/mcL LAB HEMETOLOGY METHOD 04/27/2024 9:55 AM EST [facility] Blood Venous blood specimen / Unknown Venipuncture / Unknown 04/27/2024 4:45 AM EST 04/27/2024 9:16 AM EST Mckenzie Hernandez MD LAB BLOOD ORDERABLES Final Resu lt [facility] [address] [place] [address], documented in this encounter Visit Diagnoses Diagnosis Iron deficiency anemia, unspecified Vitamin D deficiency, unspecified Type 2 diabetes mellitus without complications (CMS/HCC) documented in this encounter Care Teams Insemination Worker Relationship Specialty Start Date End Date Mckenzie Hernandez MD [address] [place] [address] PCP - General Hospitalist Medicine 04/27/24 documented as of this encounter
--- OUTSIDE RECORDS SUMMARY | 2024-07-07 20:28 | XMS_ITS | Clinical Summary ---
Author Organization [address] Address [address] [place] [address] Phone Care Team Providers Care Shipping & Receiving Lead Name Role Phone Mckenzie Hernandez MD Primary Care Provider [phone] Encounters Date Type Department Care Team Description 05/20/2024 Lab Requisition [facility] Lab [address] [place] [phone] Mckenzie Hernandez MD Hyperkalemia 05/15/2024 Lab Requisition [facility] - Main Lab [address] [place] [address] Mckenzie Hernandez MD Hyperkalemia 05/13/2024 Lab Requisition [facility] Lab [address] [place] [address] Mckenzie Hernandez MD Hyperkalemia 05/12/2024 Lab Requisition [facility] Lab [address] [place] [address] Mckenzie Hernandez MD Hyperkalemia 05/11/2024 Lab Requisition [facility] Lab [address] [place] [address] Mckenzie Hernandez MD Chronic kidney disease, unspecified 05/11/2024 Lab Requisition [facility] Lab [address] [place] [address] Mckenzie Hernandez MD Hyperkalemia 05/07/2024 Lab Requisition [facility] Lab [address] [place] [address] Mckenzie Hernandez MD Chronic kidney disease, unspecified 05/05/2024 Lab Requisition [facility] Lab [address] [place] [address] Mckenzie Hernandez MD Chronic kidney disease, unspecified 04/27/2024 Lab Requisition [facility] Lab [address] [place] [address] Mckenzie Hernandez MD Iron deficiency [...] mmol/L LAB CHEMISTRY METHOD 05/18/2024 12:51 PM [facility] LAB Potassium 5.7(H) 3.5 - 5.5 mmol/L LAB CHEMISTRY METHOD 05/18/2024 12:51 PM [facility] LAB Chloride 108 96 - 110 mmol/L LAB CHEMISTRY METHOD 05/18/2024 12:51 PM [facility] LAB CO2 26 21 - 32 mmol/L LAB CHEMISTRY METHOD 05/18/2024 12:51 PM [facility] LAB Anion Gap 4 3 - 11 LAB CHEMISTRY METHOD 05/18/2024 12:51 PM [facility] LAB Glucose 114(H) 70 - 100 mg/dL LAB CHEMISTRY METHOD 05/18/2024 12:51 PM [facility] LAB BUN 52(H) 5 - 25 mg/dL LAB CHEMISTRY METHOD 05/18/2024 12:51 PM [facility] LAB Creatinine 2.35(H) 0.50 - 1.10 mg/dL LAB CHEMISTRY METHOD 05/18/2024 12:51 PM [facility] LAB eGFR 24(L) >=60 mL/min/1. 73m2 LAB CHEMISTRY METHOD 05/18/2024 12:51 PM [facility] LAB Comment:Calculation based on the??Chronic Kidney Disease Epidemiology Collaboration (CKD-EPI) equation refit??without adjustment for race. BUN/Creatinine Ratio 22.1 LAB CHEMISTRY METHOD 05/18/2024 12:51 PM [facility] LAB Calcium 9.0 8.5 - 10.5 mg/dL LAB CHEMISTRY METHOD 05/18/2024 12:51 PM [facility] LAB Blood Venous blood specimen / Unknown Venipuncture / Unknown 05/18/2024 4:41 AM EST 05/18/2024 11:07 AM EST us Rami A Ashkar MD LAB BLOOD ORDERABLES Final Resu lt [facility] [address] [place] [address], * (ABNORMAL) Complete blood count (05/12/2024 6:38 AM EST) Only the most recent of4 resultswithin the time period is included. WBC 6.2 4.8 - 10.8 K/mcL LAB HEMETOLOGY METHOD 05/12/2024 10:25 AM [facility] LAB RBC 2.90(L) 3.80 - 4.80 M/mcL LAB HEMETOLOGY METHOD 05/12/2024 10:25 AM [facility] LAB Hemoglobin 8.3(L) 11.5 - 16.0 g/dL LAB HEMETOLOGY METHOD 05/12/2024 10:25 AM [facility] LAB Hematocrit 25.6(L) 35.0 - 47.0 % LAB HEMETOLOGY METHOD 05/12/2024 10:25 AM [facility] LAB MCV 89.2 79.0 - 98.0 FL LAB HEMETOLOGY METHOD 05/12/2024 10:25 AM [facility] LAB MCH 28.9 27.0 - 32.0 pcg LAB HEMETOLOGY METHOD 05/12/2024 10:25 AM [facility] LAB MCHC 32.4 32.0 - 37.0 g/dL LAB HEMETOLOGY METHOD 05/12/2024 10:25 AM [facility] LAB RDW 15.0 11.0 - 15.0 % LAB HEMETOLOGY METHOD 05/12/2024 10:25 AM [facility] LAB Platelets 166 130 - 400 K/mcL LAB HEMETOLOGY METHOD 05/12/2024 10:25 AM [facility] LAB MPV 8.5 7.0 - 11.0 FL LAB HEMETOLOGY METHOD 05/12/2024 10:25 AM EST [facility] LAB NRBC 0.0 <1.0 % LAB HEMETOLOGY METHOD 05/12/2024 10:25 AM EST [facility] NRBC Absolute 0.00 <0.10 K/mcL LAB HEMETOLOGY METHOD 05/12/2024 10:25 AM EST [facility] LAB Blood Venous blood specimen / Unknown Venipuncture / Unknown 05/12/2024 6:38 AM EST 05/12/2024 9:56 AM EST us Mckenzie Hernandez MD LAB BLOOD ORDERABLES Final Resu lt Performing Organization Address [facility]/ZIP Co de Phone Number [facility] [address] [place] [address], [place] [phone] * (ABNORMAL) Vitamin D 25 hydroxy (04/27/2024 4:45 AM EST) Vit D, 25-Hydroxy 24.3(L) 30.0 - 80.0 ng/mL LAB CHEMISTRY METHOD 04/27/2024 10:28 AM EST [facility] Blood Venous blood specimen / Unknown Venipuncture / Unknown 04/27/2024 4:45 AM EST 04/27/2024 9:16 AM EST us Mckenzie Hernandez MD LAB BLOOD ORDERABLES Final Resu lt [facility] [address] [place] [address], [place] [phone] * Thyroid stimulating hormone (04/27/2024 4:45 AM EST) TSH 3.85 0.40 - 4.00 mcIU/mL LAB CHEMISTRY METHOD 04/27/2024 10:28 AM EST [facility] Blood Venous blood specimen / Unknown Venipuncture / Unknown 04/27/2024 4:45 AM EST 04/27/2024 9:16 AM EST us Mckenzie Hernandez MD LAB BLOOD ORDERABLES Final Resu lt Performing Organization Address [facility]/ZIP Co de Phone Number [facility] [address] [place] [address], [place] [phone] * (ABNORMAL) B-type natriuretic peptide (04/27/2024 4:45 AM EST) BNP 298(H) <=100 pcg/mL LAB CHEMISTRY METHOD 04/27/2024 10:17 AM EST [facility] Blood Venous blood specimen / Unknown Venipuncture / Unknown 04/27/2024 4:45 AM EST 04/27/2024 9:16 AM EST us Mckenzie Hernandez MD LAB BLOOD ORDERABLES Final Resu lt Performing Organization Address [facility]/ZIP Co de Phone Number [facility] [address] [place] [address], [place] [phone] * (ABNORMAL) Hemoglobin A1c (04/27/2024 4:45 AM EST) [facility] Hemoglobin A1C 6.8(H) <6.5 % LAB CHEMISTRY METHOD 04/27/2024 1:25 PM EST [facility] Mean Bld Glu Estim. 148 mg/dL LAB CHEMISTRY METHOD 04/27/2024 1:25 PM EST [facility] Blood Venous blood specimen / Unknown Venipuncture / Unknown 04/27/2024 4:45 AM EST 04/27/2024 9:16 AM EST us Mckenzie Hernandez MD LAB BLOOD ORDERABLES Final Resu lt Performing Organization Address City/[facility]/ZIP Co de Phone Number [facility] [address] [place] [address], [place] [phone] * Folate (04/27/2024 4:45 AM EST) Folate 14.1 2.8 - 17.0 ng/ml LAB CHEMISTRY METHOD 04/27/2024 10:35 AM [facility] LAB Blood Venous blood specimen / Unknown Venipuncture / Unknown 04/27/2024 4:45 AM EST 04/27/2024 9:16 AM EST us Mckenzie Hernandez MD LAB BLOOD ORDERABLES Final Resu lt [facility] [address] [place] [address], * (ABNORMAL) Comprehensive metabolic panel (04/27/2024 4:45 AM EST) Pathologist [facility] Sodium 138 133 - 145 mmol/L LAB CHEMISTRY METHOD 04/27/2024 10:35 AM [facility] Potassium 5.3 3.5 - 5.5 mmol/L LAB CHEMISTRY METHOD 04/27/2024 10:35 AM [facility] Chloride 107 96 - 110 mmol/L LAB CHEMISTRY METHOD 04/27/2024 10:35 AM [facility] CO2 25 21 - 32 mmol/L LAB CHEMISTRY METHOD 04/27/2024 10:35 AM [facility] Anion Gap 6 3 - 11 LAB CHEMISTRY METHOD 04/27/2024 10:35 AM [facility] Glucose 137(H) 70 - 100 mg/dL LAB CHEMISTRY METHOD 04/27/2024 10:35 AM [facility] BUN 110(H) 5 - 25 mg/dL LAB CHEMISTRY METHOD 04/27/2024 10:35 AM [facility] Creatinine 2.58(H) 0.50 - 1.10 mg/dL LAB CHEMISTRY METHOD 04/27/2024 10:35 AM [facility] LAB eGFR 22(L) >=60 mL/min/1. 73m2 LAB CHEMISTRY METHOD 04/27/2024 10:35 AM [facility] LAB Comment:Calculation based on the??Chronic Kidney Disease Epidemiology Collaboration (CKD-EPI) equation refit??without adjustment for race. BUN/Creatinine Ratio 42.6 LAB CHEMISTRY METHOD 04/27/2024 10:35 AM [facility] Calcium 8.9 8.5 - 10.5 mg/dL LAB CHEMISTRY METHOD 04/27/2024 10:35 AM [facility] AST (SGOT) 75(H) 10 - 42 unit/L LAB CHEMISTRY METHOD 04/27/2024 10:35 AM [facility] ALT (SGPT) 81(H) 10 - 60 unit/L LAB CHEMISTRY METHOD 04/27/2024 10:35 AM [facility] Alkaline Phosphatase 239(H) 42 - 121 unit/L LAB CHEMISTRY METHOD 04/27/2024 10:35 AM [facility] Total Protein 6.6 6.0 - 8.0 g/dL LAB CHEMISTRY METHOD 04/27/2024 10:35 AM [facility] Albumin 2.3(L) 3.2 - 5.0 g/dL LAB CHEMISTRY METHOD 04/27/2024 10:35 AM [facility] Total Bilirubin 0.3 0.0 - 1.4 mg/dL LAB CHEMISTRY METHOD 04/27/2024 10:35 AM [facility] Blood Venous blood specimen / Unknown Venipuncture / Unknown 04/27/2024 4:45 AM EST 04/27/2024 9:16 AM EST us Mckenzie Hernandez MD LAB BLOOD ORDERABLES Final Resu lt [facility] [address] [place] [address], from Last 3 Months Insurance MEDICAID - [place] Care Teams Shipping & Receiving Lead Relationship Specialty Start Date End Date Mckenzie Hernandez MD [address] [place] [phone] PCP - General Hospitalist Medicine 04/27/24
--- OUTSIDE RECORDS SUMMARY | 2024-07-07 20:28 | XMS_ITS | Encounter Summary ---
Author Organization [employer] [facility] Address [address] [place] [address] [address] [place] [address] Care Team Providers Care Structural Technician Name Role Phone Neelima Brown MD Primary Care Provide r Encounter Details Date Type Department Care Team (Late Contact Info) Description 07/18/2022 Telephone [facility] MEDICINE [address] [place] [address] Neelima Brown MD [address] [place], [place] [phone] Social History Tobacco Use Types Packs/Day Years [...] Description 07/20/2024 2:00 PM EDT Office Visit [facility] OPTOMETRY [address] [place] [address] Nicole Brumfield, OD [address] [place], [place] [phone] 09/25/2024 2:30 PM EDT Office Visit [facility] MEDICINE [address] [place], [place] [phone] Neelima Brown MD [address] [place] [address] documented as of this encounter Visit Diagnoses Not on filedocumented in this encounter Care Teams Structural Technician Relationship Specialty Start Date End Date Neelima Brown MD [address] [place] [address] PCP - General Family Medicine 01/15/18 Yara Salas Industrial Laborer 07/01/23 09/27/23 Nolvia Delgado Industrial LaborerAccounts Payable Representative 08/29/23 Dixon ARCHIBALD 03/05/24 documented as of this encounter
--- OUTSIDE RECORDS SUMMARY | 2024-07-07 20:28 | XMS_ITS | Encounter Summary ---
Author Organization [facility] Address [address] [place] [address] Care Team Providers Care Lumber Handler Name Role Phone Mckenzie Hernandez MD Primary Care Provider [phone] Encounter Details Date Type Department Care Team (Late st Contact Info) Description 05/11/2024 Lab Requisition [facility] - Main Lab [address] [facility] [place] [address] Mckenzie Hernandez MD [address] [place] [phone] Hyperkalemia Social History Tobacco Use Types Packs/Day [...] LAB CHEMISTRY METHOD 05/11/2024 2:58 PM EST [facility] Potassium 5.5 3.5 - 5.5 mmol/L LAB CHEMISTRY METHOD 05/11/2024 2:58 PM EST [facility] LAB Chloride 107 96 - 110 mmol/L LAB CHEMISTRY METHOD 05/11/2024 2:58 PM EST [facility] LAB CO2 25 21 - 32 mmol/L LAB CHEMISTRY METHOD 05/11/2024 2:58 PM [facility] Anion Gap 4 3 - 11 LAB CHEMISTRY METHOD 05/11/2024 2:58 PM [facility] Glucose 215(H) 70 - 100 mg/dL LAB CHEMISTRY METHOD 05/11/2024 2:58 PM [facility] BUN 40(H) 5 - 25 mg/dL LAB CHEMISTRY METHOD 05/11/2024 2:58 PM [facility] Creatinine 2.52(H) 0.50 - 1.10 mg/dL LAB CHEMISTRY METHOD 05/11/2024 2:58 PM [facility] LAB eGFR 22(L) >=60 mL/min/1. 73m2 LAB CHEMISTRY METHOD 05/11/2024 2:58 PM [facility] LAB Comment:Calculation based on the??Chronic Kidney Disease Epidemiology Collaboration (CKD-EPI) equation refit??without adjustment for race. BUN/Creatinine Ratio 15.9 LAB CHEMISTRY METHOD 05/11/2024 2:58 PM [facility] Calcium 8.3(L) 8.5 - 10.5 mg/dL LAB CHEMISTRY METHOD 05/11/2024 2:58 PM [facility] Blood Venous blood specimen / Unknown Venipuncture / Unknown 05/11/2024 12:35 PM EST 05/11/2024 1:57 PM EST us Mckenzie Hernandez MD LAB BLOOD ORDERABLES Final Resu lt [facility] [address] [place] [address], documented in this encounter Visit Diagnoses Diagnosis Hyperkalemia Hyperpotassemia documented in this encounter Care Teams Lumber Handler Relationship Specialty Start Date End Date Mckenzie Hernandez MD [address] [place] [id number] PCP - General Hospitalist Medicine 04/27/24 documented as of this encounter
--- OUTSIDE RECORDS SUMMARY | 2024-07-07 20:28 | XMS_ITS | Encounter Summary ---
Author Organization [employer] [facility] Address [address] [place] [address] 7t [place] [address] Care Team Providers Care Well Shooter Name Role Phone Neelima Brown MD Primary Care Provide r Encounter Details Date Type Department Care Team (Late Contact Info) Description 11/14/[address] [facility] [address] [place], [place] [phone] Neelima Brown MD [address] [place] [address] Social History Tobacco Use Types Packs/Day Years [...] for VNA services. Please contact ezequiel at [phone] Fax number: [phone] documented in this encounter Plan of Treatment Upcoming Encounters Date Type Department Care Team (Late st Contact Info) Description 07/20/2024 2:00 PM EDT Office Visit [facility] [address] [place] [address] Nicole Brumfield OD 230 [place] [address] 09/25/2024 2:30 PM EDT Office Visit [facility] [address] [place] [address] Neelima Brown MD 230 [place] [address] documented as of this encounter Visit Diagnoses Not on filedocumented in this encounter Care Teams Well Shooter Relationship Specialty Start Date End Date Neelima Brown MD [address] [place], [place] [phone] PCP - General Family Medicine 01/15/18 Yara Salas Aircraft Shipping Checker 07/01/23 09/27/23 Nolvia Delgado Aircraft Shipping CheckerResistor Winder 08/29/23 Dixon ARCHIBALD 03/05/24 documented as of this encounter
--- OUTSIDE RECORDS SUMMARY | 2024-07-07 20:28 | XMS_ITS | Encounter Summary ---
Author Organization [facility] Address [address] [place] [address] Care Team Providers Care Instrument Repair Supervisor Name Role Phone Mckenzie Hernandez MD Primary Care Provider [phone] Encounter Details Date Type Department Care Team (Late st Contact Info) Description 05/07/2024 Lab Requisition [facility] - Main Lab [address] [facility] [place] [address] Mckenzie Hernandez MD [address] [place] [address] Chronic kidney disease, unspecified Social History Tobacco [...] LAB CHEMISTRY METHOD 05/08/2024 11:04 AM EST [facility] Potassium 6.4(HH) 3.5 - 5.5 mmol/L LAB CHEMISTRY METHOD 05/08/2024 11:04 AM [facility] LAB Chloride 108 96 - 110 mmol/L LAB CHEMISTRY METHOD 05/08/2024 11:04 AM [facility] CO2 24 21 - 32 mmol/L LAB CHEMISTRY METHOD 05/08/2024 11:04 AM [facility] LAB Anion Gap 6 3 - 11 LAB CHEMISTRY METHOD 05/08/2024 11:04 AM [facility] Glucose 81 70 - 100 mg/dL LAB CHEMISTRY METHOD 05/08/2024 11:04 AM [facility] BUN 39(H) 5 - 25 mg/dL LAB CHEMISTRY METHOD 05/08/2024 11:04 AM [facility] Creatinine 1.95(H) 0.50 - 1.10 mg/dL LAB CHEMISTRY METHOD 05/08/2024 11:04 AM [facility] LAB eGFR 30(L) >=60 mL/min/1. 73m2 LAB CHEMISTRY METHOD 05/08/2024 11:04 AM [facility] LAB Comment:Calculation based on the??Chronic Kidney Disease Epidemiology Collaboration (CKD-EPI) equation refit??without adjustment for race. BUN/Creatinine Ratio 20.0 LAB CHEMISTRY METHOD 05/08/2024 11:04 AM [facility] Calcium 8.5 8.5 - 10.5 mg/dL LAB CHEMISTRY METHOD 05/08/2024 11:04 AM [facility] LAB Blood Venous blood specimen / Unknown Venipuncture / Unknown 05/08/2024 7:00 AM EST 05/08/2024 9:54 AM EST us Mckenzie Hernandez MD LAB BLOOD ORDERABLES Final Resu lt [facility] [address] [place] [address], [place] [phone] * (ABNORMAL) Complete blood count (05/08/2024 7:00 AM EST) [facility] WBC 6.4 4.8 - 10.8 K/mcL LAB HEMETOLOGY METHOD 05/08/2024 10:14 AM [facility] RBC 3.00(L) 3.80 - 4.80 M/mcL LAB HEMETOLOGY METHOD 05/08/2024 10:14 AM [facility] Hemoglobin 8.6(L) 11.5 - 16.0 g/dL LAB HEMETOLOGY METHOD 05/08/2024 10:14 AM [facility] LAB Hematocrit 26.9(L) 35.0 - 47.0 % LAB HEMETOLOGY METHOD 05/08/2024 10:14 AM [facility] MCV 88.8 79.0 - 98.0 FL LAB HEMETOLOGY METHOD 05/08/2024 10:14 AM [facility] MCH 28.4 27.0 - 32.0 pcg LAB HEMETOLOGY METHOD 05/08/2024 10:14 AM [facility] MCHC 32.0 32.0 - 37.0 g/dL LAB HEMETOLOGY METHOD 05/08/2024 10:14 AM [facility] RDW 15.1(H) 11.0 - 15.0 % LAB HEMETOLOGY METHOD 05/08/2024 10:14 AM [facility] LAB Platelets 168 130 - 400 K/mcL LAB HEMETOLOGY METHOD 05/08/2024 10:14 AM [facility] MPV 8.8 7.0 - 11.0 FL LAB HEMETOLOGY METHOD 05/08/2024 10:14 AM [facility] LAB NRBC 0.0 <1.0 % LAB HEMETOLOGY METHOD 05/08/2024 10:14 AM [facility] LAB NRBC Absolute 0.00 <0.10 K/mcL LAB HEMETOLOGY METHOD 05/08/2024 10:14 AM [facility] Blood Venous blood specimen / Unknown Venipuncture / Unknown 05/08/2024 7:00 AM EST 05/08/2024 9:54 AM EST us Mckenzie Hernandez MD LAB BLOOD ORDERABLES Final Resu lt [facility] ([facility] [address] [place] [address], documented in this encounter Visit Diagnoses Diagnosis Chronic kidney disease, unspecified documented in this encounter Care Teams Instrument Repair Supervisor Relationship Specialty Start Date End Date Mckenzie Hernandez MD [address] [place] [address] PCP - General Hospitalist Medicine 04/27/24 documented as of this encounter
--- OUTSIDE RECORDS SUMMARY | 2024-07-07 20:28 | XMS_ITS | Encounter Summary ---
Author Organization [facility] Address [address] [place] [address] Care Team Providers Care Copyright Clerk Name Role Phone Mckenzie Hernandez MD Primary Care Provider [phone] Encounter Details Date Type Department Care Team (Late st Contact Info) Description 05/12/2024 Lab Requisition [facility] - Main Lab 299 [facility] [place] [address] Mckenzie Hernandez MD [address] [place] [address] Hyperkalemia Social History Tobacco Use Types Packs/Day [...] Hyperpotassemia documented in this encounter Care Teams Copyright Clerk Relationship Specialty Start Date End Date Mckenzie Hernandez MD [address] [place] [address] PCP - General Hospitalist Medicine 04/27/24 documented as of this encounter
--- OUTSIDE RECORDS SUMMARY | 2024-07-07 20:28 | XMS_ITS | Encounter Summary ---
Author Organization [employer] Address [address] [place] [address] 7t [place] [address] Care Team Providers Care Horse Doctor Name Role Phone Neelima Brown MD Primary Care Provide r Reason for Visit * Reason Onset Date Comments Medication Question 09/27/2023 Encounter Details Date Type Department Care Team ([facility] st Contact Info) Description 09/27/2023 Telephone [facility] [address] [place], [place] [phone] Neelima Brown MD [address] [place], [place] [phone] Medication Question Social History Tobacco Use Types [...] If any questions please contact Josephine at [phone]. documented in this encounter Plan of Treatment Upcoming Encounters Date Type Department Care Team (Late st Contact Info) Description 07/20/2024 2:00 PM EDT Office Visit [facility] [address] [place] [address] Nicole Brumfield, OD [address] [place] [address] 09/25/2024 2:30 PM EDT Office Visit [facility] [address] [place] [address] Neelima Brown MD 230 [place] [address] documented as of this encounter Goals Goal [...] documented as of this encounter Care Teams Horse Doctor Relationship Specialty Start Date End Date Neelima Brown MD [address] [place] [address] PCP - General Family Medicine 01/15/18 Yara Salas Manager Monitoring 07/01/23 09/27/23 Nolvia Delgado Manager MonitoringCommissary Clerk 08/29/23 Dixon BRANDT 03/05/24 documented as of this encounter
--- OUTSIDE RECORDS SUMMARY | 2024-07-07 20:28 | XMS_ITS | Encounter Summary ---
Author Organization [employer] Address [address] [place] [address] 7t [place] [address] Care Team Providers Care Health Information Systems Technician Name Role Phone Neelima Brown MD Primary Care Provide r Reason for Visit * Reason Onset Date Comments Rebilitation discharge 11/12/2022 Encounter Details Date Type Department Care Team ([facility] st Contact Info) Description 11/12/2022 Telephone [facility] [address] [place], [place] [phone] Neelima Brown MD [address] [place] [address] Rebilitation discharge Social History Tobacco Use Types [...] pt being recently discharge last Saturday11/09/2022 from [facility], [place] [address] Please contact son at [phone] documented in this encounter Plan of Treatment Upcoming Encounters Date Type Department Care Team (Late st Contact Info) Description 07/20/2024 2:00 PM EDT Office Visit [facility] OPT[facility] [address] [place] [address] Nicole Brumfield, OD [address] [place] [address] 09/25/2024 2:30 PM EDT Office Visit [facility] [address] [place] [address] Neelima Brown MD [address] [place] [address] documented as of this encounter Visit Diagnoses Not on filedocumented in this encounter Care Teams Health Information Systems Technician Relationship Specialty Start Date End Date Neelima Brown MD [address] [place] [address] PCP - General Family Medicine 01/15/18 Yara Salas Multimedia Project Manager 07/01/23 09/27/23 Nolvia Delgado Multimedia Project ManagerCoding Specialist Home Health 08/29/23 Dixon ARCHIBALD 03/05/24 documented as of this encounter
--- OUTSIDE RECORDS SUMMARY | 2024-07-07 20:28 | XMS_ITS | Encounter Summary ---
Author Organization [facility] Address [address] [place] [address] Care Team Providers Care Garment Tag Stringer Name Role Phone Mckenzie Hernandez MD Primary Care Provider [phone] Encounter Details Date Type Department Care Team (Late st Contact Info) Description 05/05/2024 Lab Requisition [facility] - Main Lab 299 [facility] [place] [address] Mckenzie Hernandez MD [address] [place] [address] Chronic kidney disease, unspecified Social History Tobacco [...] LAB CHEMISTRY METHOD 05/05/2024 10:25 AM EST [facility] Potassium 5.6(H) 3.5 - 5.5 mmol/L LAB CHEMISTRY METHOD 05/05/2024 10:25 AM [facility] LAB Chloride 109 96 - 110 mmol/L LAB CHEMISTRY METHOD 05/05/2024 10:25 AM [facility] CO2 26 21 - 32 mmol/L LAB CHEMISTRY METHOD 05/05/2024 10:25 AM [facility] LAB Anion Gap 2(L) 3 - 11 LAB CHEMISTRY METHOD 05/05/2024 10:25 AM [facility] Glucose 85 70 - 100 mg/dL LAB CHEMISTRY METHOD 05/05/2024 10:25 AM [facility] BUN 43(H) 5 - 25 mg/dL LAB CHEMISTRY METHOD 05/05/2024 10:25 AM [facility] Creatinine 1.93(H) 0.50 - 1.10 mg/dL LAB CHEMISTRY METHOD 05/05/2024 10:25 AM [facility] LAB eGFR 30(L) >=60 mL/min/1. 73m2 LAB CHEMISTRY METHOD 05/05/2024 10:25 AM [facility] LAB Comment:Calculation based on the??Chronic Kidney Disease Epidemiology Collaboration (CKD-EPI) equation refit??without adjustment for race. BUN/Creatinine Ratio 22.3 LAB CHEMISTRY METHOD 05/05/2024 10:25 AM [facility] LAB Calcium 8.3(L) 8.5 - 10.5 mg/dL LAB CHEMISTRY METHOD 05/05/2024 10:25 AM [facility] LAB Blood Venous blood specimen / Unknown Venipuncture / Unknown 05/05/2024 6:10 AM EST 05/05/2024 9:07 AM EST us Mckenzie Hernandez MD LAB BLOOD ORDERABLES Final Resu lt [facility] [address] [place] [address], [place] [phone] * (ABNORMAL) Complete blood count (05/05/2024 6:10 AM EST) [facility] WBC 6.2 4.8 - 10.8 K/mcL LAB HEMETOLOGY METHOD 05/05/2024 10:11 AM [facility] RBC 2.80(L) 3.80 - 4.80 M/mcL LAB HEMETOLOGY METHOD 05/05/2024 10:11 AM [facility] LAB Hemoglobin 8.0(L) 11.5 - 16.0 g/dL LAB HEMETOLOGY METHOD 05/05/2024 10:11 AM [facility] LAB Hematocrit 25.6(L) 35.0 - 47.0 % LAB HEMETOLOGY METHOD 05/05/2024 10:11 AM [facility] LAB MCV 90.1 79.0 - 98.0 FL LAB HEMETOLOGY METHOD 05/05/2024 10:11 AM [facility] LAB MCH 28.2 27.0 - 32.0 pcg LAB HEMETOLOGY METHOD 05/05/2024 10:11 AM [facility] LAB MCHC 31.3(L) 32.0 - 37.0 g/dL LAB HEMETOLOGY METHOD 05/05/2024 10:11 AM [facility] LAB RDW 14.8 11.0 - 15.0 % LAB HEMETOLOGY METHOD 05/05/2024 10:11 AM [facility] LAB Platelets 170 130 - 400 K/mcL LAB HEMETOLOGY METHOD 05/05/2024 10:11 AM [facility] LAB MPV 8.9 7.0 - 11.0 FL LAB HEMETOLOGY METHOD 05/05/2024 10:11 AM [facility] LAB NRBC 0.0 <1.0 % LAB HEMETOLOGY METHOD 05/05/2024 10:11 AM [facility] LAB NRBC Absolute 0.00 <0.10 K/mcL LAB HEMETOLOGY METHOD 05/05/2024 10:11 AM EST [facility] LAB Blood Venous blood specimen / Unknown Venipuncture / Unknown 05/05/2024 6:10 AM EST 05/05/2024 9:07 AM EST us Mckenzie Hernandez MD LAB BLOOD ORDERABLES Final Resu lt [facility] [address] [place] [address], documented in this encounter Visit Diagnoses Diagnosis Chronic kidney disease, unspecified documented in this encounter Care Teams Garment Tag Stringer Relationship Specialty Start Date End Date Mckenzie Hernandez MD [address] [place] [address] PCP - General Hospitalist Medicine 04/27/24 documented as of this encounter
--- OUTSIDE RECORDS SUMMARY | 2024-07-07 20:29 | XMS_ITS | Encounter Summary ---
Author Organization [employer] Address [address] [place] [address] 7t [place] [address] Care Team Providers Care Target Aircraft Technician Name Role Phone Neelima Brown MD Primary Care Provide r Reason for Visit * Reason Onset Date Comments Chart Prep 06/10/2024 Encounter Details Date Type Department Care Team (Late st Contact Info) Description 06/10/2024 Telephone [facility] [address] [place], [place] [phone] Fabienne Gonzalez MA Chart Prep Social History [...] Description 07/20/2024 2:00 PM EDT Office Visit [facility] [address] [place] [address] Octaviano, Nicole, OD [address] [place] [address] 09/25/2024 2:30 PM EDT Office Visit [facility] [address] [place] [address] Neelima Brown MD [address] [place] [address] documented as of this encounter Goals Goal Patient Goal Type Associated Problems Recent Progress Patient-Stated? Author Eat breakfast every day Diet Tami Short, PharmD Note: Carbs, protein, fruits and veggies Take your medication every day Lifestyle On track( 023 4:40 PM EST) Tami Short, PharmD documented as of this encounter Visit Diagnoses Not on filedocumented in this encounter Additional Health Concerns Assessment Noted Time PHQ-9 Depression Total Score: 0 02/29/20 23 1:01 PM EDT documented as of this encounter Care Teams Target Aircraft Technician Relationship Specialty Start Date End Date Neelima Brown MD [address] [place] [address] PCP - General Family Medicine 01/15/18 Nolvia Delgado Textile StylistKettle Tender 08/29/23 Dixon ARCHIBALD 03/05/24 documented as of this encounter
--- OUTSIDE RECORDS SUMMARY | 2024-07-07 20:29 | XMS_ITS | Encounter Summary ---
Author Organization [employer] Address [address] [place] [address] 7t [place] [address] Care Team Providers Care Tree Worker Name Role Phone Neelima Brown MD Primary Care Provide r Reason for Visit * Reason Onset Date Comments Chart Prep 06/24/2024 Encounter Details Date Type Department Care Team ([facility] st Contact Info) Description 06/24/2024 Telephone [facility] MEDICINE [address] [place], [place] [phone] Neelima Brown MD [address] [place], [place] [phone] Chart Prep Social History Tobacco Use Types [...] Description 07/20/2024 2:00 PM EDT Office Visit [facility] OPTOMETRY [address] [place] [address] Octaviano, Nicole, OD [address] [place] [address] 09/25/2024 2:30 PM EDT Office Visit [facility] MEDICINE [address] [place] [address] Neelima Brown MD [address] [place] [address] documented as of this encounter Goals Goal [...] documented as of this encounter Care Teams Tree Worker Relationship Specialty Start Date End Date Neelima Brown MD [address] [place] [address] PCP - General Family Medicine 01/15/18 Nolvia Delgado Side Panel PadderChess Instructor 08/29/23 Dixon ARCHIBALD 03/05/24 documented as of this encounter
--- OUTSIDE RECORDS SUMMARY | 2024-07-07 20:29 | XMS_ITS | Encounter Summary ---
Author Organization [employer] Address [address] [place] [address] 7t [place] [address] Care Team Providers Care Stitchdowns Toe Former Name Role Phone Neelima Brown MD Primary Care Provide r Reason for Visit * Reason Onset Date Comments PT1 06/18/2024 Encounter Details Date Type Department Care Team ([facility] st Contact Info) Description 06/18/2024 Telephone [facility] MEDICINE [address] [place], [place] [phone] Neelima Brown MD [address] [place], [place] [phone] PT1 Social History Tobacco Use Types Packs/Day [...] Y/N: Yes Provider name or facility name: [facility] Facility Address: [address] [place] [address] Escort needed: Y/N: Yes Do you have a wheelchair: If yes- Manual or electric: Visits: 2 x a month documented in this encounter Plan of Treatment Upcoming Encounters Date Type Department Care Team (Late st Contact Info) Description 07/20/2024 2:00 PM EDT Office Visit [facility] OPTOMETRY [address] [place] [address] Nicole Brumfield, OD [address] [place] [address] 09/25/2024 2:30 PM EDT Office Visit [facility] MEDICINE [address] [place] [address] Neelima Brown MD [address] [place] [address] documented as of this encounter Goals Goal Patient Goal Type Associated Problems Recent Progress Patient-Stated? Author Eat breakfast every day Diet No LizTami daily PharmD Note: Carbs, protein, fruits and veggies Take your medication every day Lifestyle On track( 023 4:40 PM EST) No Tami Liz PharmD documented as of this encounter Visit Diagnoses Not on filedocumented in this encounter Additional Health Concerns Assessment Noted Time PHQ-9 Depression Total Score: 0 02/29/20 23 1:01 PM EDT documented as of this encounter Care Teams Stitchdowns Toe Former Relationship Specialty Start Date End Date Neelima Brown MD [address] [place] [address] PCP - General Family Medicine 01/15/18 Nolvia Delgado Casing ManStrip Winder 08/29/23 Dixon ARCHIBALD 03/05/24 documented as of this encounter
--- OUTSIDE RECORDS SUMMARY | 2024-07-07 20:29 | XMS_ITS | Encounter Summary ---
Author Organization [employer] Address [address] [facility] 7t [place] [address] Care Team Providers Care Multimedia Project Manager Name Role Phone Neelima Brown MD Primary Care Provide r Reason for Visit * Reason Comments Care Coordination CHW outreach for SDO H PT-1 and food needs-referral completed Encounter Details Date Type Department Care Team (Latest Contact Info) Description 06/18/2024 Patient Outreach [facility] MEDICINE [address] [place] [address] Neelima Brown MD [address] [place] [address] Care Coordination (CHW outreach for SDOH PT-1 [...] CHW requested PT-1 plus referred family to B pantries in the local area. Patient agree to follow up with plan. Patient educated on extended clinic hours on Mondays through Wednesdays, and Walk-In Urgent Care Located in [facility] of [facility]. Patient provided with after-hours line for [facility], , which offer night time triage service and option to transfer to production operations manager provider if needed. documented in this encounter Plan of Treatment Upcoming Encounters Date Type Department Care Team (Late st Contact Info) Description 07/20/2024 2:00 PM EDT Office Visit [facility] OPTOMETRY [address] [place], [place] [phone] Nicole Brumfield, OD [address] [place], [place] [phone] 09/25/2024 2:30 PM EDT Office Visit [facility] MEDICINE [address] [place] [address] Neelima Brown MD [address] [place], [place] [phone] documented as of this encounter Goals Goal [...] documented as of this encounter Care Teams Multimedia Project Manager Relationship Specialty Start Date End Date Neelima Brown MD [address] [place] [address] PCP - General Family Medicine 01/15/18 Nolvia Delgado Marketing Operations InternAerospace Assembler 08/29/23 Dixon ARCHIBALD 03/05/24 documented as of this encounter
--- OUTSIDE RECORDS SUMMARY | 2024-07-07 20:29 | XMS_ITS | Encounter Summary ---
Author Organization [employer] [facility] Address [address] [place] [address] 7t [place] [address] Care Team Providers Care Ethnoarchaeology Professor Name Role Phone Neelima Brown MD Primary Care Provide r Reason for Visit * Reason Onset Date Comments Medication Question 01/10/2023 Encounter Details Date Type Department Care Team ([facility] st Contact Info) Description 01/10/2023 Telephone [facility] MEDICINE [address] [place], [place] [phone] Neelima Brown MD [address] [place], [place] [phone] Medication Question Social History Tobacco Use Types [...] 11:26 AM EDT T/C to Elis on [phone] for below message, VNA is with pt. Right now. VNA states she is going to call back. * Telephone Encounter - Kailee Avalos - 01/10/2023 2:46 PM EDT Tc from Elis from [facility] requesting a call back to discuss pt med list . Best contact # [phone] documented in this encounter Plan of Treatment Upcoming Encounters Date Type Department Care Team (Late st Contact Info) Description 07/20/2024 2:00 PM EDT Office Visit [facility] OPTOMETRY [address] [place] [address] Octaviano, Nicole, OD [address] [place] [address] 09/25/2024 2:30 PM EDT Office Visit [facility] MEDICINE [address] [place] [address] Neelima Brown MD [address] [place] [address] documented as of this encounter Visit Diagnoses Not on filedocumented in this encounter Care Teams Ethnoarchaeology Professor Relationship Specialty Start Date End Date Neelima Brown MD [address] [place] [address] PCP - General Family Medicine 01/15/18 Yara Salas Operations Staff Specialist Security 07/01/23 09/27/23 Nolvia Delgado Operations Staff Specialist SecurityFire Captain 08/29/23 Dixon ARCHIBALD 03/05/24 documented as of this encounter
--- OUTSIDE RECORDS SUMMARY | 2024-07-07 20:29 | XMS_ITS | Encounter Summary ---
Author Organization [facility] [employer] Address [address] [place] [address] [address] [place] [address] Care Team Providers Care Storekeeper Steward Name Role Phone Neelima Bronw MD Primary Care Provide r Reason for Visit * Reason Comments SDOH Concerns SINDI Mcdonnell PT1 Encounter Details Date Type Department Care Team ([facility] st Contact Info) Description 06/18/2024 Patient Outreach [facility] MEDICINE [address] [place], [place] [phone] Neelima Brwon MD [address] [place] [address] SDOH Concerns (SINDI Mcdonnell PT1) Social History [...] EST CHW Simin Solis, submitted PT1 for [facility] today. CHW called patient and left vm informing the patient. documented in this encounter Plan of Treatment Upcoming Encounters Date Type Department Care Team (Late st Contact Info) Description 07/20/2024 2:00 PM EDT Office Visit [facility] OPTOMETRY [address] [place] [address] Octaviano, Nicole, OD [address] [place] [address] 09/25/2024 2:30 PM EDT Office Visit [facility] MEDICINE [address] [place] [address] Neelima Brown MD [address] [place] [address] documented as of this encounter Goals Goal [...] documented as of this encounter Care Teams Storekeeper Steward Relationship Specialty Start Date End Date Neelima Brown MD [address] [place] [phone] PCP - General Family Medicine 01/15/18 Nolvia Delgado Writer Technical PublicationsGlassie 08/29/23 Dixon ARCHIBALD 03/05/24 documented as of this encounter
--- OUTSIDE RECORDS SUMMARY | 2024-07-07 20:29 | XMS_ITS | Encounter Summary ---
Author Organization [facility] Address [address] [place] [address] Care Team Providers Care Director Radio News Name Role Phone Mckenzie Hernandez MD Primary Care Provider [phone] Encounter Details Date Type Department Care Team (Late st Contact Info) Description 05/20/2024 Lab Requisition [facility] - Main Lab [address] [facility] [place] [address] Mckenzie Hernandez MD [address] [place] [phone] Hyperkalemia Social History Tobacco Use Types Packs/Day [...] Hyperpotassemia documented in this encounter Care Teams Director Radio News Relationship Specialty Start Date End Date Mckenzie Hernandez MD [address] [place] [phone] PCP - General Hospitalist Medicine 04/27/24 documented as of this encounter
--- OUTSIDE RECORDS SUMMARY | 2024-07-07 20:29 | XMS_ITS | Encounter Summary ---
Author Organization [employer] [facility] [employer] Address [address] [place] [address] [address] [place] [address] Care Team Providers Care Tow Boat Captain Name Role Phone Neelima Brown MD Primary Care Provide r Reason for Visit * Reason Onset Date Comments F appointment 06/10/2024 Encounter Details Date Type Department Care Team ([facility] st Contact Info) Description 06/10/2024 Telephone [facility] MEDICINE [address] [place], [place] [phone] Winifred Land, JG [address] [place] [address] F appointment Social History Tobacco Use Types [...] 2:48 PM EST TC placed to patient [phone] to r/s HDF for tomorrow d/t weather. RN spoke to patients son andr/s for 06/29/24 at 1pm. Son agreed to appointment date and time. Son to f/u PRN. documented in this encounter Plan of Treatment Upcoming Encounters Date Type Department Care Team (Late st Contact Info) Description 07/20/2024 2:00 PM EDT Office Visit [facility] OPTOMETRY [address] [place] [address] Nicole Brumfield, OD [address] [place] [address] 09/25/2024 2:30 PM EDT Office Visit [facility] MEDICINE [address] [place] [address] Neelima Brown MD [address] [place] [address] documented as of this encounter Goals Goal [...] documented as of this encounter Care Teams Tow Boat Captain Relationship Specialty Start Date End Date Neelima Brown MD [address] [place] [id number] PCP - General Family Medicine 01/15/18 Nolvia Delgado Mold CheckerLicensing Services Clerk 08/29/23 Dixon ARCHIBALD 03/05/24 documented as of this encounter
--- OUTSIDE RECORDS SUMMARY | 2024-07-07 20:29 | XMS_ITS | Encounter Summary ---
Author Organization [facility] Address [address] [place] [address] Care Team Providers Care Fall Intern Name Role Phone Mckenzie Hernandez MD Primary Care Provider [phone] Encounter Details Date Type Department Care Team (Late st Contact Info) Description 05/15/2024 Lab Requisition [facility] - Main Lab [address] [facility] [place] [address] Mckenzie Hernandez MD [address] [place] [phone] Hyperkalemia Social History Tobacco Use Types Packs/Day [...] LAB CHEMISTRY METHOD 05/18/2024 12:51 PM EST [facility] Potassium 5.7(H) 3.5 - 5.5 mmol/L LAB CHEMISTRY METHOD 05/18/2024 12:51 PM EST [facility] Chloride 108 96 - 110 mmol/L LAB CHEMISTRY METHOD 05/18/2024 12:51 PM EST [facility] CO2 26 21 - 32 mmol/L LAB CHEMISTRY METHOD 05/18/2024 12:51 PM [facility] Anion Gap 4 3 - 11 LAB CHEMISTRY METHOD 05/18/2024 12:51 PM [facility] Glucose 114(H) 70 - 100 mg/dL LAB CHEMISTRY METHOD 05/18/2024 12:51 PM [facility] BUN 52(H) 5 - 25 mg/dL LAB CHEMISTRY METHOD 05/18/2024 12:51 PM [facility] Creatinine 2.35(H) 0.50 - 1.10 mg/dL LAB CHEMISTRY METHOD 05/18/2024 12:51 PM [facility] eGFR 24(L) >=60 mL/min/1. 73m2 LAB CHEMISTRY METHOD 05/18/2024 12:51 PM [facility] Comment:Calculation based on the??Chronic Kidney Disease Epidemiology Collaboration (CKD-EPI) equation refit??without adjustment for race. BUN/Creatinine Ratio 22.1 LAB CHEMISTRY METHOD 05/18/2024 12:51 PM [facility] Calcium 9.0 8.5 - 10.5 mg/dL LAB CHEMISTRY METHOD 05/18/2024 12:51 PM [facility] Blood Venous blood specimen / Unknown Venipuncture / Unknown 05/18/2024 4:41 AM EST 05/18/2024 11:07 AM EST us Mckenzie Hernandez MD LAB BLOOD ORDERABLES Final Resu lt [facility] [address] [place] [address], documented in this encounter Visit Diagnoses Diagnosis Hyperkalemia Hyperpotassemia documented in this encounter Care Teams Fall Intern Relationship Specialty Start Date End Date Mckenzie Hernandez MD [address] [place] [phone] PCP - General Hospitalist Medicine 04/27/24 documented as of this encounter
--- OUTSIDE RECORDS SUMMARY | 2024-07-07 20:29 | XMS_ITS | Encounter Summary ---
Demographics Address [address] [place] [address] Mobile Phone Email Address Preferred Language es Marital Status Single Buddhist Affiliation Unknown Race Other Race Ethnic Group or Author Organization [employer] Address [address] [place] [address] [address] [place] [address] Care Team Providers Care Computer Network Support Specialist Name Role Phone Neelima Brown MD Primary Care Provide r Encounter Details Date Type Department Care Team (Latest Contact Info) Description 06/29/2024 Travel Social History Tobacco Use Types Packs/Day Years [...] Description 07/20/2024 2:00 PM EDT Office Visit [facility] OPTOMETRY [address] [place], [place] [phone] Octaviano, Nicole, OD [address] [place] [address] 09/25/2024 2:30 PM EDT Office Visit [facility] MEDICINE [address] [place] [address] Neelima Brown MD [address] [place] [address] documented as of this encounter Goals Goal [...] documented as of this encounter Care Teams Computer Network Support Specialist Relationship Specialty Start Date End Date Neelima Brown MD [address] [place], [place] [phone] PCP - General Family Medicine 01/15/18 Nolvia Delgado Psychiatric Social WorkerResearch Microbiologist 08/29/23 Dixon ARCHIBALD 03/05/24 documented as of this encounter
--- OUTSIDE RECORDS SUMMARY | 2024-07-07 20:29 | XMS_ITS | Encounter Summary ---
Demographics Address [address] [place] [address] Mobile Phone Email Address Preferred Language es Marital Status Single Amish Affiliation Unknown Race Other Race Ethnic Group or Author Organization [facility] Address [address] [place] [address] [address]t [place] [address] Care Team Providers Care Supervisor Mill Name Role Phone Neelima Brown MD Primary Care Provide r Reason for Referral * Consultation (Routine) - Authorized Specialty Diagnoses / Procedures Referred By Contac t Referred To Contact Nephrology Diagnoses Acute kidney injury superimposed on CKD (CMS/HCC) ([facility]) Neelima Brown MD [address] [place] [address] Phone: tel: fax: [facility] [address] [place] [address] Phone: tel: fax: Referral ID Status Reason Start Date Expiration Date Visits Requested Visits Authorized [id number] Authorized Specialty Services Required 06/29/2024 06/29/2025 1 1 Encounter Details Date Type Department Care Team (Latest Contact Info) Description 06/29/2024 1:00 PM EST Office Visit [facility] [address] [place], [place] [phone] Neelima Brown MD [address] [place], [place] [phone] 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, with long-term current use of insulin (CMS/[facility]) (Primary Dx); Congestive heart failure, unspecified HF chronicity, unspecified heart failure type ([facility]); Pneumonia of both lungs due to infectious organism, unspecified part of lung; Urinary tract infection without hematuria, site unspecified; 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, unspecified whether fpc insulin use ([facility]); Acute kidney injury superimposed on CKD ([facility]) ([facility]); Nausea; Diabetic polyneuropathy associated with type 2 diabetes mellitus ([facility]) Social History Tobacco Use Types Packs/Day Years [...] AM EDT documented as of this encounter Last Filed Vital Signs Vital Sign Reading Time Taken Comments Blood Pressure 162/74 06/29/2024 1:44 PM EST Pulse 89 06/29/2024 1:13 PM EST Temperature 35.4 ??C (95.8 ??F) 06/29/2024 1:13 PM ES T Respiratory Rate 12 06/29/2024 1:13 PM EST Oxygen Saturation 99% 06/29/2024 1:13 PM EST Inhaled Oxygen Concentration - - Weight 60.6 kg (133 lb 9.6 oz) 06/29/2024 1:13 P M EST Height 167.6 cm (5' 6 ) 06/29/2024 1:13 PM EST Body Mass Index 21.56 06/29/2024 1:13 PM EST documented in this encounter Progress Notes * Neelima Gómez MD - 06/29/2024 1:00 PM EST SUBJECTIVE: Queta Loya is a 54 y.o. year old female who presents for HDF . [facility] (04/07/24-04/25/24) Patient presented for evaluation of fever, dyspnea, edema and hypoxia. CT chest showed pulmonary edema and b/l pleural effusions. Received 60 mg IV furosemide in ED. Admitted for sepsis due to bacteremia/UTI. Treated with cefepime, then changed to ceftriaxone. ID consulted and levofloxacin was initiated and treated for 14 days (end 04/24). R sided thoracentesis done and patient underwent IV diuresis until 04/14 when it was stopped due to DILLON. Losartan and furosemide were discontinued. Scr improved to 2.8 mg/dl which may be patients new baseline. Started on maintenance Lokelma and potassium ondischarged was 5/5 meq/l. Transfused with 1 unit PRBCs for anemia of CKD with appropriate response.Patient discharged to [facility]. Medication changes that occurred during hospitalization include: Added Lidocaine 4% patch TD once daily to upper back Lokelma 10 grams once daily Changed Gabapentin 100 mg at bedtime increased to 100 mg three times a day Discontinued: furosemide, losartan [facility] ED (05/16/24) Patient presented from rehab and treated for pneumonia. Discharged back to rehab on abx. Medication changes that occurred during hospitalization include: Added Augmentin 875-125 mg twice a day x 7 days Azithromycin 250 mg - take 500 mg on day 1, then 250 mg for 4 days Changed: none Discontinued: none [facility] (04/25/24-05/18/24) Patient arrived with significant debility. Worked well with PT/OT. Medication changes that occurred during hospitalization include: Added - listed on discharge medication list, not on EHR Vitamin D 1000 units once daily Insulin lispro sliding scale (no scale provided) Changed: none Discontinued: none [facility] (05/31/24-06/03/24) Patient presented for evaluation of multiple events of vomiting, nausea and watery nonbloody diarrhea. Patient probably suffered form acute viral gastroenteritis. Patient found to have severe hypoxiaand CXR showed moderate to large bilateral pleural effusion. Treated with IV furosemide with good effect, hypoxia resolved. UC grew e coli, enterococcus and streptococcus however patient had no urinary symptoms, likely colonization. Patient discharged home. Medication changes that occurred during hospitalization include: Added Furosemide 40 mg once daily Augmentin 500-125 mg twice a day x 3 days Changed: none Discontinued: none Patient reports she feels much better than when she was in the hospital, she denies any problems with her breathing at this time, she denies any urinary symptoms. Acute Concerns: Patient reports sometimes she feels dizzy, weak, fatigue Patient also complains of upper abdominal pain, heartburn, nausea, she reports she vomits once a day in the morning Social History Social History Narrative Lives with 20 year old daughter No VNA services Facing eviction Patient Active Problem List Diagnosis Abnormal mammogram Anemia Essential hypertension Weakness Glaucoma Hemoglobin A1C greater than 9%, indicating poor diabetic control Hyperlipidemia Illiteracy and low-level literacy Metabolic encephalopathy Noncompliance with treatment Positive RPR test Tooth disorder Type 2 diabetes mellitus without complication ([facility]) Leg weakness, bilateral Lower abdominal pain 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 ([facility]) Depression Hyperglycemia Pyelonephritis Idiopathic hypotension Hospital discharge follow-up Other constipation Pain in both feet Diabetic polyneuropathy associated with type 2 diabetes mellitus ([facility]) Generalized abdominal pain Unstable gait GERD (gastroesophageal reflux disease) Complicated UTI (urinary tract infection) Anxiety and depression DILLON (acute kidney injury) ([facility]) Orthostatic hypotension Nausea with vomiting Low serum cortisol level Dizziness CHF (congestive heart failure) ([facility]) Hypertensive urgency Forgetfulness Seborrheic dermatitis Urinary incontinence Heartburn Hyperkalemia Pneumonia of both lungs due to infectious organism UTI (urinary tract infection) Acute kidney injury superimposed on CKD (CMS/HCC) (CMS/HCC) Nausea No family history on file. Review of Systems Constitutional: Positive for fatigue. Negative for activity change, appetite change, chills, diaphoresis, fever and unexpected weight change. HENT: Negative. Respiratory: Negative. Cardiovascular: Negative. Gastrointestinal: Positive for abdominal pain, nausea and vomiting. Negative for abdominal distention, anal bleeding, blood in stool, constipation, diarrhea and rectal pain. Genitourinary: Negative. OBJECTIVE: Vitals: 06/29/24 1313 06/29/24 1344 BP: (!) 155/72 (!) 162/74 BP Location: Left arm Right arm Patient Position: Sitting Sitting BP Cuff Size: Adult Adult Pulse: 89 Resp: 12 Temp: 95.8 ??F (35.4 ??C) TempSrc: Oral SpO2: 99% Weight: 133 lb 9.6 oz (60.6 kg) Height: 5' 6 (1.676 m) Physical Exam Constitutional: Appearance: Normal appearance. Cardiovascular: Rate and Rhythm: Normal rate and regular rhythm. Pulmonary: Effort: Pulmonary effort is normal. Breath sounds: Normal breath sounds. Abdominal: General: Abdomen is flat. Palpations: Abdomen is soft. Musculoskeletal: Right lower le+ Pitting Edema present. Left lower le+ Pitting Edema present. Neurological: Mental Status: She is alert. Follow Up: Follow up in about 3 months (around 09/26/2024) for chronic conditions . Current Outpatient Medications on File Prior to Visit Medication Sig Dispense Refill Alcohol Swabs (Alcohol Prep) 70 % pads USE FIVE TIMES DAILY WITH INSULIN 100 each 11 amLODIPine (Norvasc) 10 MG tablet TAKE 1 TABLET BY MOUTH EVERY DAY 90 tablet 1 Aspirin Low Dose 81 MG EC tablet Take 1 tablet (81 mg) by mouth Once per day. 90 tablet 3 Blood Glucose Monitoring Suppl (FreeStyle [place] Lite) w/Device kit Use to test blood sugar 2 times daily 1 kit 0 Blood Pressure Monitoring (Blood Pressure Cuff) [facility] Use daily as prescribed 1 each 0 ferrous sulfate 324 MG EC tablet Take 1 tablet (324 mg) by mouth every other day. 15 tablet 2 FREESTYLE LITE test strip Use to test blood sugar 2 times daily 100 each 12 furosemide (Lasix) 40 MG tablet Take 1 tablet by mouth Once per day. gabapentin (Neurontin) 100 MG capsule TAKE 1 CAPSULE BY MOUTH EVERY DAY AT BEDTIME ketoconazole (NIZOral) 2 % shampoo Apply topically 2 (two) times a week. 120 mL 1 lactulose (Chronulac) 10 GM/15ML solution Take 15 mL by mouth if needed in the morning and at bedtime (constipation). Lancets misc Use to test blood sugar 2 times daily 100 each 0 Misc. Devices (Fingertip Pulse Oximeter) misc 1 each Once daily. 1 each 0 omeprazole (PriLOSEC) [address] capsule Take 1 capsule (40 mg) by mouth before breakfast. Do not crush or chew. 30 capsule 2 UltiCare Pen [place] 29G X 12.7MM misc USE FOUR TIMES DAILY 100 each 11 [DISCONTINUED] Lantus SoloStar 100 UNIT/ML pen INJECT 10 UNITS SUBCUTANEOUSLY once daily 3 mL 2 No current facility-administered medications on file prior to visit. Problem List Items Addressed This Visit 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 ([facility]) - Primary Patient's A1c and glucose levels today and at home seems to be stable, she is taking at home only Lantus 8 units at bedtime, we will continue with same regimen, she is not taking lispro sliding scaleand I do not think it is necessary at this point Patient brought today her glucometer which is not working, I will prescribe a new 1 today Relevant Medications Lantus SoloStar 100 UNIT/ML pen Blood Glucose Monitoring Suppl (ArkimediaStyle [place] Lite) w/Device kit Other Relevant Orders POCT Glucose (Completed) POCT HGB A1C (Completed) CHF (congestive heart failure) ([facility]) Patient seems to be clinically stable today Patient is taking Lasix 20 mg daily I advised to continue with same dose Continue to follow-up with cardiology, stress test and echocardiogram is pending Pneumonia of both lungs due to infectious organism Now resolved UTI (urinary tract infection) Resolved now Acute kidney injury superimposed on CKD ([facility]) ([facility]) I advised patient to avoid nephrotoxic medications Patient needs to be follow-up by nephrology, referral done today Relevant Orders Referral to Nephrology Nausea Relevant Medications ondansetron (Zofran) 4 MG tablet Diabetic polyneuropathy associated with type 2 diabetes mellitus ([facility]) Patient will continue gabapentin 100 mg at bedtime, she reports this dose is helping documented in this encounter Miscellaneous Notes * Assessment & Plan Note - Neelima Gómez MD - 06/29/2024 2:30 PM EST Associated Problem(s): Diabetic polyneuropathy associated with type 2 diabetes mellitus (CMS/HCC) Patient will continue gabapentin 100 mg at bedtime, she reports this dose is helping * Assessment & Plan Note - Neelima Gómez MD - 06/29/2024 2:28 PM EST Associated Problem(s): 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 (CMS/HCC) Patient's A1c and glucose levels today and at home seems to be stable, she is taking at home only Lantus 8 units at bedtime, we will continue with same regimen, she is not taking lispro sliding scaleand I do not think it is necessary at this point Patient brought today her glucometer which is not working, I will prescribe a new 1 today * Assessment & Plan Note - Neelima Gómez MD - 06/29/2024 2:27 PM EST Associated Problem(s): UTI (urinary tract infection) Resolved now * Assessment & Plan Note - Neelima Gómez MD - 06/29/2024 2:27 PM EST Associated Problem(s): Acute kidney injury superimposed on CKD (CMS/HCC) (CMS/HCC) I advised patient to avoid nephrotoxic medications Patient needs to be follow-up by nephrology, referral done today * Assessment & Plan Note - Neelima Gómez MD - 06/29/2024 2:27 PM EST Associated Problem(s): CHF (congestive heart failure) ([facility]) Patient seems to be clinically stable today Patient is taking Lasix 20 mg daily I advised to continue with same dose Continue to follow-up with cardiology, stress test and echocardiogram is pending * Assessment & Plan Note - Neelima Gómez MD - 06/29/2024 2:26 PM EST Associated Problem(s): Pneumonia of both lungs due to infectious organism Now resolved documented in this encounter Plan of Treatment Upcoming Encounters Date Type Department Care Team (Late st Contact Info) Description 07/20/2024 2:00 PM EDT Office Visit [facility] [address] [place] [address] Octaviano, Nicole, OD [address] [place] [address] 09/25/2024 2:30 PM EDT Office Visit [facility] [address] [place] [address] Neelima Brown MD [address] [place] [address] Scheduled Referrals Name Type Priority Associated Diagnoses Orde r Schedule Referral to Nephrology Outpatient Referral Routine Acute kidney injury superimposed on CKD ([facility]) ([facility]) Expected: 06/29/2024 (Approximate), Expires: 06/29/2025 documented as of this encounter Goals Goal Patient Goal Type Associated Problems Recent Progress Patient-Stated? Author Eat breakfast every day Diet Tami Short, PharmD Note: Carbs, protein, fruits and veggies Take your medication every day Lifestyle On track( 023 4:40 PM EST) Tami Short PharmD documented as of this encounter Procedures Procedure Name Priority Date/Time Associated Diagnosis Comments POCT GLYCATED HEMOGLOBIN, TOTAL Routine 06/29/2024 1:15 PM EST 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, with long-term current use of insulin ([facility]) POCT GLUCOSE Routine 06/29/2024 1:14 PM EST 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, with long-term current use of insulin ([facility]) documented in this encounter Results * (ABNORMAL) POCT HGB A1C (06/29/2024 1:15 PM EST) Hemoglobin A1C 6.6(A) 4.0 - 6.0 % QC Media Lot # [id number] Lot# Expiration Date Blood 06/29/2024 1:15 PM EST Neelima Gómez MD POINT OF CARE TEST EN TER/EDIT ORDERABLES Final Result * POCT Glucose (06/29/2024 1:14 PM EST) Glucose Blood, POC 136 60 - 200 mg/dL QC Media Lot # [id number] Lot# Expiration Date 025 Blood Capillary blood specimen / Unknown 06/29/2024 1:14 PM EST Neelima Gómez MD POINT OF CARE TEST EN TER/EDIT ORDERABLES Final Result documented in this encounter Visit Diagnoses Diagnosis 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, unspecified whether bed bug exterminator insulin use ([facility]) Congestive heart failure, unspecified HF chronicity, unspecified heart failure type ([facility]) Pneumonia of both lungs due to infectious organism, unspecified part of lung Urinary tract infection without hematuria, site unspecified Acute kidney injury superimposed on CKD ([facility]) ([facility]) Nausea Nausea alone Diabetic polyneuropathy associated with type 2 diabetes mellitus ([facility]) documented in this encounter Additional Health Concerns Assessment Noted Time PHQ-9 Depression Total Score: 0 02/29/20 23 1:01 PM EDT documented as of this encounter Care Teams Supervisor Mill Relationship Specialty Start Date End Date Neelima Brown MD [address] [place] [address] PCP - General Family Medicine 01/15/18 Nolvia Delgado Well Surveying EngineerIndustrial Engineering Professor 08/29/23 Dixon ARCHIBALD 03/05/24 documented as of this encounter
--- OUTSIDE RECORDS SUMMARY | 2024-07-07 20:29 | XMS_ITS | Encounter Summary ---
Author Organization [facility] Address [address] [place] [address] [address] [place] [address] Care Team Providers Care Wall And Floor Tiler Name Role Phone Neelima Brown MD Primary Care Provide r Encounter Details Date Type Department Care Team ([facility] st Contact Info) Description 03/15/2023 Telephone [facility] [address] [place], [place] [phone] Neelima Brown MD [address] [place], [place] [phone] Social History Tobacco Use Types Packs/Day Years [...] requesting a call in regards to a [employer] gift card pt received. Please contact son at [phone] documented in this encounter Plan of Treatment Upcoming Encounters Date Type Department Care Team (Late st Contact Info) Description 07/20/2024 2:00 PM EDT Office Visit [facility] [address] [place] [address] Octaviano, Nicole, OD [address] [place] [address] 09/25/2024 2:30 PM EDT Office Visit [facility] [address] [place] [address] Neelima Brown MD [address] [place] [address] documented as of this encounter Visit Diagnoses Not on filedocumented in this encounter Additional Health Concerns Assessment Noted Time PHQ-9 Depression Total Score: 0 02/29/20 23 1:01 PM EDT documented as of this encounter Care Teams Wall And Floor Tiler Relationship Specialty Start Date End Date Neelima Brown MD [address] [place] [address] PCP - General Family Medicine 01/15/18 Yara Salas Insulation Nozzleman 07/01/23 09/27/23 Nolvia Delgado Insulation NozzlemanDeburring Machine Operator 08/29/23 Dixon ARCHIBALD 03/05/24 documented as of this encounter
--- OUTSIDE RECORDS SUMMARY | 2024-07-07 20:29 | XMS_ITS | Encounter Summary ---
Author Organization [facility] Address [address] [place] [address] [address] [place] [address] Care Team Providers Care Consultant Name Role Phone Neelima Brown MD Primary Care Provide r Reason for Visit * Reason Onset Date Comments PT1 06/09/2024 Encounter Details Date Type Department Care Team ([facility] st Contact Info) Description 06/09/2024 Telephone [facility] [address] [place], [place] [phone] Neelima Brown MD [address] [place], [place] [phone] PT1 Social History Tobacco Use Types Packs/Day [...] Miscellaneous Notes * Telephone Encounter - Alyce Pollard - 06/09/2024 1:25 PM EST PT already has a PT1 active but would like to add a few more locations to it [facility] eye care [address] [place] [address] [facility] 3. Cardiology [address] [place] [address], [address] PT has an up coming appt on 06/25/[address] [place] [address] and would like to know if it's possible to get an answer before then. documented in this encounter Plan of Treatment Upcoming Encounters Date Type Department Care Team (Late st Contact Info) Description 07/20/2024 2:00 PM EDT Office Visit [facility] [address] [place] [address] Nicole Brumfield, OD [address] [place] [address] 09/25/2024 2:30 PM EDT Office Visit [facility] [address] [place] [address] Neelima Brown MD [address] [place] [address] documented as of this encounter Goals Goal [...] documented as of this encounter Care Teams Consultant Relationship Specialty Start Date End Date Neelima Brown MD [address] [place] [address] PCP - General Family Medicine 01/15/18 Nolvia Delgado Paint MixerCyber Ops Planner 08/29/23 Dixon ARCHIBALD 03/05/24 documented as of this encounter
--- OUTSIDE RECORDS SUMMARY | 2024-07-07 20:29 | XMS_ITS | Clinical Summary ---
Demographics Address [address] [place] [address] Mobile Phone Email Address Preferred Language es Marital Status Single Sabianism Affiliation Unknown Race Other Race Ethnic Group or Author Organization [employer] Address [address] [place] [address] 7[address] [place] [address] Care Team Providers Care Correctional Guard Name Role Phone Neelima Brown MD Primary [...] 024 Active Blood Glucose Monitoring Suppl (FreeStyle Marietta Lite) w/Device kitIndications :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, with long-term current use of insulin ([facility]) Use to test blood sugar 2 times daily 1 kit 024 Active Aspirin Low Dose 81 MG EC tabletIndicati ons: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, unspecified whether assistant terminal manager insulin use ([facility]) Take 1 tablet (81 mg) by mouth Once per day. 90 tablet 3 024 Active ferrous sulfate 324 MG EC tabletIndicati ons:Anemia, unspecified type Take 1 tablet (324 mg) by mouth every other day. 15 tablet 2 024 Active omeprazole (PriLOSEC) [address] capsuleIndicat [...] in the morning and at bedtime (constipation). Active UltiCare Pen Mcclure 29G X 12.7MM miscIndication s: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, unspecified whether care home insulin use ([facility]) USE FOUR TIMES DAILY 100 each 025 Active Lantus SoloStar 100 UNIT/ML penIndications :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, unspecified whether assistant terminal manager insulin use ([facility]) INJECT 8 UNITS SUBCUTANEOUSLY once daily 3 mL 2 025 Active Blood Glucose Monitoring Suppl (FreeStyle Marietta Lite) w/Device kitIndications :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, unspecified whether care home insulin use ([facility]) Use to test blood sugar 2 times daily 1 kit 025 Active ondansetron (Zofran) 4 MG tabletIndicati ons:Nausea Take 2 tablets (8 mg) by mouth every 8 (eight) hours if needed for nausea or vomiting for up to 10 days. 30 tablet 1 025 2024 Active UltiCare Pen Mcclure 29G X 12.7MM miscIndication s: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, unspecified whether care home insulin use ([facility] USE FOUR TIMES DAILY 100 each 11 023 2024 Discontinued(R eorder (will not trigger notification to Pharmacy)) furosemide (Lasix) 20 MG tabletIndicati ons:Congestive heart failure, unspecified HF chronicity, unspecified heart failure type ([facility]) Take 1 tablet (20 mg) by mouth Once per day. 30 tablet 024 2024 Discontinued(M ed list cleanup (will not trigger notification to Pharmacy)) Lantus SoloStar 100 UNIT/ML penIndications :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, unspecified whether care home insulin use ([facility] INJECT 10 UNITS SUBCUTANEOUSLY once daily 3 mL 2 024 2024 Discontinued(R eorder (will not trigger notification to Pharmacy)) Active Problems Problem Noted Date Diagnosed Date Pneumonia of both lungs due to infectious organi sm 06/29/2024 Assessment & Plan (06/29/2024 2:26 PM EST): Now resolved UTI (urinary tract infection) 06/29/2024 Assessment & Plan (06/29/2024 2:27 PM EST): Resolved now Acute kidney injury superimposed on CKD ([facility] ) 06/29/2024 Assessment & Plan (06/29/2024 2:27 PM EST): I advised patient to avoid nephrotoxic medications Patient needs to be follow-up by nephrology, referral done today Nausea 06/29/2024 Urinary incontinence 03/20/2024 Assessment & Plan (03/20/2024 [...] (congestive heart failure) 01/28/2024 Assessment & Plan (06/29/2024 2:27 PM EST): Patient seems to be clinically stable today Patient is taking Lasix 20 mg daily I advised to continue with same dose Continue to follow-up with cardiology, stress test and echocardiogram is pending Assessment & Plan (03/20/2024 4:29 PM EST): [...] PM EDT): Patient referred to [facility] Seborrheic dermatitis 01/28/2024 Assessment & Plan (01/28/2024 2:06 [...] Pain in both feet 12/11/2022 Diabetic polyneuropathy asspallavi ciated with type 2 diabetes mellitus 12/11/2022 Assessment & Plan (06/29/2024 2:30 PM EST): Patient will continue gabapentin 100 mg at bedtime, she reports this dose is helping Assessment & Plan (12/12/2022 2:08 PM EDT): [...] mellitus 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 09/03 Assessment & Plan (06/29/2024 2:29 PM EST): Patient's A1c and glucose levels today and at home seems to be stable, she is taking at home only Lantus 8 units at bedtime, we will continue with same regimen, she is not taking lispro sliding scale and I do not think it is necessary at this point Patient brought today her glucometer which is not working, I will prescribe a new 1 today Assessment & Plan (03/20/2024 4:31 PM EST): [...] Encounters Date Type Department Care Team Description 06/29/2024 1:00 PM EST Office Visit [address] [address] Neelima Brown MD 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, with long-term current use of insulin ([facility]) (Primary Dx); Congestive heart failure, unspecified HF chronicity, unspecified heart failure type ([facility]); Pneumonia of both lungs due to infectious organism, unspecified part of lung; Urinary tract infection without hematuria, site unspecified; 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, unspecified whether care home insulin use ([facility]); Acute kidney injury superimposed on CKD ([facility]) ([facility]); Nausea; Diabetic polyneuropathy associated with type 2 diabetes mellitus ([facility]) 06/29/2024 Travel 06/24/[address] [phone] Neelima Brown MD Chart Prep 06/18/2024 Patient Outreach [address] [phone] Neelima Brown MD SDOH Concerns ([facility] SINDI Izquierdo PT1) 06/18/2024 Patient Outreach [address] [phone] Neelima Brown MD Care Coordination (CHW outreach for SDOH PT-1 and food needs-referral completed /) 06/18/[address] [phone] Neelima Brown MD PT1 06/17/2024 Refill [facility] [address] [place], [place] [phone] Neelima Brown MD 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, unspecified whether care home insulin use ([facility]) 06/10/[address] [address] Winifred Land RN HDF appointment 06/10/[address] [address] Fabienne Gonzalez [place] Chart Prep 06/09/[address] [address] Neelima Brown MD PT1 06/04/2024 Patient Outreach [address] [address] Neelima Brown MD Transition Of Care (Tcm) (HDF- scheduled) 05/31/2024 Orders Only [facility] External Provider, [facility] 05/22/[address] [address] Neelima Brown MD Medication Question 05/21/[address] [address] Neelima Brown MD verbal order 05/18/2024 Patient Outreach [address] [address] Neelima Brown MD Pre-visit Planning (HDF- Scheduled) 04/27/2024 Patient Outreach [facility] [address] [place], [place] [phone] Neelima Brown MD Transition Of Care (Tcm) (HDF unscheduled, patient in rehab) 04/22/2024 Patient Outreach [address] [address] Neelima Brown MD Pre-visit Planning ([facility] screening completed on 06/26/2023) 04/20/2024 Refill [facility] [address] [place] [address] Neelima Brown MD Hypertensive urgency 04/16/2024 [address] [place] [address] Neelima Brown MD from Last 3 Months Immunizations Name Administration [...] Mass Index 21.56 06/29/2024 1:13 PM EST Plan of Treatment Upcoming Encounters Date Type Department Care Team (Late st Contact Info) Description 07/20/2024 2:00 PM EDT Office Visit [facility] OPTOMETRY [address] [place] [address] Octaviano, Nicole, OD [address] [place] [address] 09/25/2024 2:30 PM EDT Office Visit [facility] MEDIC[facility] [address] [place] [address] Neelima Brown MD [address] [place] [address] Health Maintenance Due Date Last Done Comments [...] 2011 Depression Screening 02/29/2024 02/28/2023, 02/29/20 23 SDOH Screening 06/26/2024 06/26/2023 Diabetes: Hemoglobin A1C 12/27/2024 025, 02/19/2024, 01/28/2024, Additional history exists Tobacco Screening 06/29/2025 06/29/2024 RSV Patients and Patients Aged 60 years [...] hyperglycemia, with long-term current use of insulin ([facility]) POCT GLUCOSE Routine 06/29/2024 1:14 PM EST 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, with long-term current use of insulin ([facility]) XR CHEST 1 VIEW Routine 06/01/2024 9:30 AM EST US THORACENTESIS Routine 06/01/2024 9:00 AM EST US RENAL BI Routine 04/20/2024 4:53 PM EST US THORACENTESIS Routine 04/09/2024 12:3 0 PM EST XR CHEST 1 VIEW Routine 04/08/2024 12:40 PM EST US THORACENTESIS Routine 04/08/2024 11:4 5 AM EST ALBUMIN, RANDOM URINE W/CREATININE Routine 11/20/2021 2:21 PM EDT LIPID PANEL, STANDARD Routine 11/20/2021 2:21 PM EDT MAMMOGRAM GENERIC Routine 07/17/2021 2:1 0 PM EDT ZZZ HISTORICAL HPV MRNA E6/E7 Routine 07/23/2018 11:16 AM EDT from Last 3 Months or Most Recently Relevant to Health Maintenance Results * (ABNORMAL) POCT HGB A1C (06/29/2024 1:15 PM EST) Hemoglobin A1C 6.6(A) 4.0 - 6.0 % QC Media Lot # [id number] Lot# Expiration Date [id number] Blood 06/29/2024 1:15 PM EST us Neelima Gómez MD POINT OF CARE TEST EN TER/EDIT ORDERABLES Final Result * POCT Glucose (06/29/2024 1:14 PM EST) Glucose Blood, POC 136 60 - 200 mg/dL QC Media Lot # [id number] Lot# Expiration Date [id number],341 Blood Capillary blood specimen / Unknown 06/29/2024 1:14 PM EST us Neelima Gómez MD POINT OF CARE TEST EN TER/EDIT ORDERABLES Final Result * XR Chest 1 View (06/01/2024 9:30 AM EST) Only the most recent of2 resultswithin the time period is included. Anatomical Region Laterality Modality Chest Radiographic Kim ging 06/01/2024 9:30 AM EST Narrative 06/01/2024 10:30 AM EST ? [facility] ?[address] ?[place] [address] ?XRay Report ? Signed ? Patient: Queta Loya ?MR#: [id number] ? : 1970 ?Acct:[id number] ? Age/Sex: 54 / F ?ADM Date: 05/31/24 ? Loc: [facility] ?462-1 ? Attending Dr: Madhu Gonzalez MD ? Ordering Physician: Gene Linares ?? Date of Service: 06/01/24 ?? Procedure(s): XR chest 1V ?? Accession Number(s): [id number] ? cc: Neelima Brown MD; Gene Linares [...] DD/ 0930 ? TD/TT: 06/01/24 0945 ? Nick Setter: MSM ? Procedure Note Donstoneter, Image - 06/01/[address] [address] XRay Report Signed Patient: Parish Loya#: [id number] : 1970Acct:[id number] Age/Sex: 54 / FADM Date: 05/31/24 Loc: [facility] 462-[address]: Madhu Gonzalez MD Ordering Physician: Gene Linares Date of Service: 06/01/24 Procedure(s): XR chest 1V Accession Number(s): [id number] cc: Neelima Brown MD; Gene Linares EXAMINATION: [...] 06/01/24 1027 DD/ 0930 TD/TT: 06/01/24 0945 Nick Setter: ERIC [facility] External Provider IMG XR PROCEDURES Final Result * US THORACENTESIS (06/01/2024 9:00 AM EST) Only the most recent of3 resultswithin the time period is included. Anatomical Region Laterality Modality Abdomen Ultrasound 06/01/2024 9:00 AM EST Narrative 06/01/2024 2:51 PM EST ? [facility] ?[address] ?[place] [address] ? Ultrasound Report ? Signed ? Patient: Loya,Queta ?MR#: [id number] ? : 1970 ?Acct:[id number] ? Age/Sex: 54 / F ?ADM Date: 05/31/24 ? Loc: [facility] ?462-1 ? Attending Dr: Madhu Gonzalez MD ? Ordering Physician: Mickie Mckeon MD ?? Date of Service: 06/01/24 ?? Procedure(s): US thoracentesis ?? Accession Number(s): [id number] ? cc: Neelima Brown MD; Mickie Mckeon MD ? PROCEDURE: ?? Ultrasound-guided left thoracentesis ? History: ?? Left pleural effusion ? Specimen: ?? None ? Access: ?? 5 Mosotho Yueh catheter ? Medications: ?? 10 mL [...] demonstrate a safe access route. A 5 Mosotho Yueh catheter was ?? then used to [...] ? 06/01/24 1448 ?<Electronically signed by Akash Raymnod MD in OV> ? 06/01/24 1450 ? DD/ 0900 ? TD/TT: 06/01/24 0921 ? Nick Setter: ? Procedure Note Donant, Image - 06/01/2024 [place] [address] Ultrasound Report Signed Patient: Parish Loya#: [id number] : 1970Acct:[id number] Age/Sex: 54 / FADM Date: 05/31/24 Loc: .[facility] 462-[address]: Madhu Gonzalez MD Ordering Physician: Mickie Mckeon MD Date of Service: 06/01/24 Procedure(s): US thoracentesis Accession Number(s): [id number] cc: Neelima Brown MD; Mickie Mckeon MD PROCEDURE: Ultrasound-guided left thoracentesis History: Left pleural effusion Specimen: None Access: 5 Mosotho Yueh catheter Medications: 10 mL 1% lidocaine [...] demonstrate a safe access route. A 5 Mosotho Yueh catheter was then used to access [...] 06/01/24 1450 DD/ 0900 TD/TT: 06/01/24 0921 Nick Setter: us [facility] External Provider IMG US PROCEDURES Final Result * US RENAL BI (04/20/2024 4:53 PM EST) Anatomical Region Laterality Modality Abdomen Ultrasound 04/20/2024 4:53 PM EST Narrative 04/21/2024 4:17 PM EST ? [facility] ?[address] ?[place] [address] ? Ultrasound Report ? Signed ? Patient: Loya,Queta ?MR#: [id number] ? : 1970 ?Acct:[id number] ? Age/Sex: 53 / F ?ADM Date: 12//24 ? Loc: [facility] ?458-1 ? Attending Dr: Jade Maldonado MEAT BONER ? Ordering Physician: Cinthya Voss DNP, SOLARIS ADMINISTRATOR-BC ?? Date of Service: 12/16/24 ?? Procedure(s): US renal BI ?? Accession Number(s): [id number] ? cc: Neelima Brown MD; Cinthya Voss DNP, [facility] ? EXAMINATION: ?? US RETROPERITONEAL LIMITED (RENAL [...] signed by Cesia Mayen MD in OV> ?04/21/24 1614 ? DD/ 1653 ? TD/TT: 04/20/24 1701 ? Nick Setter: ? Procedure Note Jana, Image - 04/21/2024 [place] [address] Ultrasound Report Signed Patient: Parish Loya#: [id number] : 1970Acct:[id number] Age/Sex: 53 / FADM Date: 04/07/24 Loc: [facility] 458-[address]: Jade Maldonado NP Ordering Physician: Cinthya Voss DNP, FNP-BC Date of Service: 04/20/24 Procedure(s): US renal BI Accession Number(s): [id number] cc: Neelima Brown MD; Cinthya Voss DNP, SANTY EXAMINATION: US RETROPERITONEAL LIMITED (RENAL ONLY) CLINICAL [...] 04/21/24 1614 DD/ 1653 TD/TT: 04/20/24 1701 Nick Setter: [facility] External Provider IMG US PROCEDURES Final Result * (ABNORMAL) ALBUMIN, RANDOM URINE W/CREATININE (11/20/2021 2:21 PM EDT) Microalbumin Urine 14.5 See Note: mg/dL [facility] Comment: Reference Range: ?? Reference [...] [facility] 11/20/2021 2:21 PM EDT us Neelima Gómez MD LAB URINE ORDERABLES Final Result [facility] [address] [place] [address], * (ABNORMAL) LIPID PANEL, STANDARD (11/20/2021 2:21 [...] ?? LDL-C is now calculated using the Phan-Taylor ?? calculation, which is a validated novel method providing ?? better accuracy than the Friedewald equation in the ?? estimation of LDL-C. ?? Phan FERNANDO et al. JAYLA. 2013;310(19): 4759-2570 ?? (http://education.Worldcoo.Bio/faq/TBG811) Non-HDL Cholesterol 209(H) <130 mg/dL (calc) [facility] Comment: For patients with diabetes plus 1 major ASCVD risk ?? factor, treating to a non-HDL-C goal of <100 mg/dL ?? (LDL-C of <70 mg/dL) is considered a therapeutic ?? option. Triglycerides 245(H) <150 mg/dL [facility] Comment: ?? If a non-fasting specimen was collected, consider repeat triglyceride testing on a fasting specimen if clinically indicated. ?? Woo et al. J. of Clin. Lipidol. 2015;9:129-169. ?? 11/20/2021 2:21 PM EDT us Neelima Gómez MD LAB BLOOD ORDERABLES Final Result [facility] [address] * Mammography Report 1 (07/17/2021 2:10 [...] HPV mRNA E6/E7 Not Detected NOT DETECTED [facility] Comment: This test was performed using the APTIMA(R) HPV Assay ([employer] This assay detects E6/E7 viral messenger RNA (mRNA) from 14 high-risk HPV types (16,18,31,33,35,39,45,51, 52,56,58,59,66,68). For additional information please refer to: http://education.DashBurst.Bio/faq/QCR100p4 (This link is being provided for informational/ educational purposes only.) The analytical performance characteristics of this assay have been determined by [employer] [place], [place]. The modifications have not been cleared or approved by the FDA. This assay has been validated pursuant to the CLIA regulations and is used for clinical purposes. Test Performed by [facility] [employer], [facility], [address] [place], [place] Chris Simpson M.D., Ph.D., Director of Laboratories , CLIA [id number] Please note: ??Effective 01/16/2016, HPV testing will be performed using [employer]'s APTIMA test which targets mRNA. Detecting mRNA instead of DNA, as in older methods, offers significant improvements in specificity. 07/23/2018 11:1 6 AM EDT Neelima Gómez MD HISTORICAL/NON ORDERA BLE LABS Final Result [facility] [address] from Last 3 Months or Most Recently Relevant to Health Maintenance Insurance [facility] Care Teams Correctional Guard Relationship Specialty Start Date End Date Neelima Brown MD [address] [place] [address] PCP - General Family Medicine 01/15/18 Nolvia Delgado Waste Treatment OperatorWheel Installer 08/29/23 Dixon ARCHIBALD 03/05/24
--- OUTSIDE RECORDS SUMMARY | 2024-07-07 20:29 | XMS_ITS | Encounter Summary ---
Author Organization [facility] Address [address] [place] [address] Care Team Providers Care Bus Starter Name Role Phone Mckenzie Hernandez MD Primary Care Provider [phone] Encounter Details Date Type Department Care Team (Late st Contact Info) Description 05/13/2024 Lab Requisition [facility] - Main Lab [address] [facility] [place] [address] Mckenzie Hernandez MD [address] [place] [address] Hyperkalemia Social History Tobacco Use Types Packs/Day [...] LAB CHEMISTRY METHOD 05/14/2024 1:26 PM EST [facility] Potassium 4.9 3.5 - 5.5 mmol/L LAB CHEMISTRY METHOD 05/14/2024 1:26 PM EST [facility] Chloride 108 96 - 110 mmol/L LAB CHEMISTRY METHOD 05/14/2024 1:26 PM EST [facility] CO2 22 21 - 32 mmol/L LAB CHEMISTRY METHOD 05/14/2024 1:26 PM [facility] Anion Gap 7 3 - 11 LAB CHEMISTRY METHOD 05/14/2024 1:26 PM [facility] Glucose 93 70 - 100 mg/dL LAB CHEMISTRY METHOD 05/14/2024 1:26 PM [facility] BUN 48(H) 5 - 25 mg/dL LAB CHEMISTRY METHOD 05/14/2024 1:26 PM [facility] Creatinine 2.50(H) 0.50 - 1.10 mg/dL LAB CHEMISTRY METHOD 05/14/2024 1:26 PM [facility] eGFR 22(L) >=60 mL/min/1. 73m2 LAB CHEMISTRY METHOD 05/14/2024 1:26 PM [facility] Comment:Calculation based on the??Chronic Kidney Disease Epidemiology Collaboration (CKD-EPI) equation refit??without adjustment for race. BUN/Creatinine Ratio 19.2 LAB CHEMISTRY METHOD 05/14/2024 1:26 PM [facility] Calcium 8.8 8.5 - 10.5 mg/dL LAB CHEMISTRY METHOD 05/14/2024 1:26 PM [facility] Blood Venous blood specimen / Unknown Venipuncture / Unknown 05/14/2024 6:06 AM EST 05/14/2024 11:35 AM EST us Mckenzie Hernandez MD LAB BLOOD ORDERABLES Final Resu lt [facility] [address] [place] [address], documented in this encounter Visit Diagnoses Diagnosis Hyperkalemia Hyperpotassemia documented in this encounter Care Teams Bus Starter Relationship Specialty Start Date End Date Mckenzie Hernandez MD [address] [place] [address] PCP - General Hospitalist Medicine 04/27/24 documented as of this encounter
--- OUTSIDE RECORDS SUMMARY | 2024-07-07 20:29 | XMS_ITS | Encounter Summary ---
Author Organization [facility] Address [address] [place] [address] 7t [place] [address] Care Team Providers Care Wood Boring Machine Operator Name Role Phone Neelima Brown MD Primary Care Provide r Reason for Visit * Reason Onset Date Comments Nurse Triage 04/07/2024 Encounter Details Date Type Department Care Team ([facility] st Contact Info) Description 04/07/2024 Telephone [facility] MEDICINE [address] [place], [place] [phone] Neelima Brown MD [address] [place], [place] [phone] Nurse Triage Social History Tobacco Use Types [...] 04/07/2024 10:19 AM EST Triage call with [facility] [place] [id number], Pt son, Bin, is with Pt and [...] Description 07/20/2024 2:00 PM EDT Office Visit [facility] OPTOMETRY [address], [place] [phone] Nicole Brumfield, OD [address] [place] [address] 09/25/2024 2:30 PM EDT Office Visit [facility] MEDICINE [address] [place] [address] Neelima Brown MD [address] [place] [address] documented as of this encounter Goals Goal [...] documented as of this encounter Care Teams Wood Boring Machine Operator Relationship Specialty Start Date End Date Neelima Brown MD [address] [place] [address] PCP - General Family Medicine 01/15/18 Nolvia Delgado Preschool Teacher AideCredit Union Examiner 08/29/23 Dixon ARCHIBALD 03/05/24 documented as of this encounter
--- OUTSIDE RECORDS SUMMARY | 2024-07-07 20:29 | XMS_ITS | Encounter Summary ---
Author Organization [facility] Address [address] [place] [address] 7t [place] [address] Care Team Providers Care Estate Administrator Name Role Phone Neelima Brown MD Primary Care Provide r Reason for Visit * Reason Onset Date Comments Nurse Triage 03/08/2023 Encounter Details Date Type Department Care Team ([facility] st Contact Info) Description 03/08/2023 Telephone [facility] MEDICINE [address] [place], [place] [phone] Neelima Brown MD [address] [place], [place] [phone] Nurse Triage Social History Tobacco Use Types [...] 03/08/2023 2:49 PM EDT Called pt. Via [employer] sports commentator Taco [phone]. Pt. States that she started vomiting x [...] acuity questions The caller accepted this outcome Lithuanian Speaker documented in this encounter Plan of Treatment Upcoming Encounters Date Type Department Care Team (Late st Contact Info) Description 07/20/2024 2:00 PM EDT Office Visit [facility] OPTOMETRY [address] [place] [address] Octaviano, Nicole, OD [address] [place] [address] 09/25/2024 2:30 PM EDT Office Visit [facility] MEDICINE [address] [place] [address] Neelima Brown MD [address] [place], [place] [phone] documented as of this encounter Visit Diagnoses Not on filedocumented in this encounter Additional Health Concerns Assessment Noted Time PHQ-9 Depression Total Score: 0 02/29/20 1:01 PM EDT documented as of this encounter Care Teams Estate Administrator Relationship Specialty Start Date End Date Neelima Brown MD [address] [place], [place] [phone] PCP - General Family Medicine 01/15/18 Yara Salas Turkish Line Attendant 07/01/23 09/27/23 Nolvia Delgado Turkish Line AttendantCosmetics Counter Manager 08/29/23 Dixon ARCHIBALD 03/05/24 documented as of this encounter
--- OUTSIDE RECORDS SUMMARY | 2024-07-07 20:29 | XMS_ITS | Encounter Summary ---
Author Organization [employer] Address [address] [place] [address] 7t [place] [address] Care Team Providers Care Acoustic Intelligence Specialist Name Role Phone Neelima Brown MD Primary Care Provide r Reason for Visit * Reason Onset Date Comments Med Refill 06/17/2024 Encounter Details Date Type Department Care Team (Late st Contact Info) Description 06/17/2024 Refill [facility] MED & PEDS [address] [place], [place] [phone] Neelima Brown MD [address] [place] [address] 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, unspecified whether twisting frame changer insulin use ([facility]) Social History Tobacco Use Types [...] Description 07/20/2024 2:00 PM EDT Office Visit [facility] OPTOMETRY [address] [place] [address] Octaviano, Nicole, OD [address] [place] [address] 09/25/2024 2:30 PM EDT Office Visit [facility] MEDICINE [address] [place] [address] Neelima Brown MD [address] [place] [address] documented as of this encounter Goals Goal Patient Goal Type Associated Problems Recent Progress Patient-Stated? Author Eat breakfast every day Diet No Tami Liz, Eric Note: Carbs, protein, fruits and veggies Take your medication every day Lifestyle On track( 023 4:40 PM EST) No Tami Liz PharmD documented as of this encounter Visit Diagnoses Diagnosis 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, unspecified whether twisting frame changer insulin use ([facility]) documented in this encounter Additional Health Concerns Assessment Noted Time PHQ-9 Depression Total Score: 0 10/26/20 23 1:01 PM EDT documented as of this encounter Care Teams Acoustic Intelligence Specialist Relationship Specialty Start Date End Date Neelima Brown MD [address] [place] [address] PCP - General Family Medicine 01/15/18 Nolvia Delgado Studio OperatorRn Outpatient Surgery 08/29/23 Dixon ARCHIBALD 03/05/24 documented as of this encounter
--- OUTSIDE RECORDS SUMMARY | 2024-07-07 20:29 | XMS_ITS | Encounter Summary ---
Author Organization [employer] Address [address] [place] [address] 7t [place] [address] Care Team Providers Care Incubator Tender Name Role Phone Neelima Brown MD Primary Care Provide r Encounter Details Date Type Department Care Team ([facility] st Contact Info) Description 02/03/2024 Telephone [facility] MEDICINE [address] [place], [place] [phone] Neelima Brown MD [address] [place], [place] [phone] Social History Tobacco Use Types Packs/Day Years [...] 07/20/2024 2:00 PM EDT Office Visit [facility] OPTOMETRY [address] [place] [address] Octaviano, Nicole, OD [address] [place] [address] 09/25/2024 2:30 PM EDT Office Visit [facility] MEDICINE [address] [place] [address] Neelima Brown MD [address] [place] [address] documented as of this encounter Goals Goal [...] documented as of this encounter Care Teams Incubator Tender Relationship Specialty Start Date End Date Neelima Brown MD [address] [place] [address] PCP - General Family Medicine 01/15/18 Nolvia Delgado Transportation Dispatch ManagerDay Care Provider 08/29/23 Dixon ARCHIBALD 03/05/24 documented as of this encounter
--- OUTSIDE RECORDS SUMMARY | 2024-07-07 20:29 | XMS_ITS | Encounter Summary ---
Author Organization [facility] Address [address] [place] [address] 7t [place] [address] Care Team Providers Care Physiological Chemist Name Role Phone Neelima Brown MD Primary Care Provide r Reason for Visit * Reason Onset Date Comments call back 06/18/2022 Encounter Details Date Type Department Care Team ([facility] st Contact Info) Description 06/18/2022 Telephone [facility] MEDICINE [address] [place], [place] [phone] Neelima Brown MD [address] [place], [place] [phone] call back Social History Tobacco Use Types [...] answering phone call. Please contact sumeet at [phone] documented in this encounter Plan of Treatment Upcoming Encounters Date Type Department Care Team (Late st Contact Info) Description 07/20/2024 2:00 PM EDT Office Visit [facility] OPTOMETRY [address] [place] [address] Nicole Brumfield, OD [address] [place] [address] 09/25/2024 2:30 PM EDT Office Visit [facility] MEDICINE [address] [place] [address] Neelima Brown MD [address] [place] [address] documented as of this encounter Visit Diagnoses Not on filedocumented in this encounter Care Teams Physiological Chemist Relationship Specialty Start Date End Date Neelima Brown MD [address] [place] [address] PCP - General Family Medicine 01/15/18 Yara Salas Protective Signal Repairer 07/01/23 09/27/23 Nolvia Delgado Protective Signal RepairerSkin Specialist 08/29/23 Dixon ARCHIBALD 03/05/24 documented as of this encounter
--- NOTE | 2024-07-07 20:50 | P.HPHOSP_ITS ---
History of Present Illness Date of Service: 07/07/24 Attending physician on admission: Omega Oh Chief Complaint: SOB Patient is a 54-year-old Maltese-speaking female with a past medical history significant for COPD on O2 2-3 L via NC, chronic systolic and diastolic congestive heart failure and pleural effusions (requiring thoracentesis in the past), diabetes on insulin, chronic anemia requiring blood transfusion in the past, essential hypertension, orthostatic hypotension and hyperlipidemia, who presented to the ED due to shortness of breath, VICENTE, bilateral lower extremity edema and pain, as well as dizziness. She also reports malodorous urine but not frequency, urgency, or dysuria. She is unsure if she has been taking her lasix at home, she reports that her son gives her all of her medications. She denies headache, fever, chills, nausea, vomtiing, abd pain, cough, rhinorrhea, or congestion. The pt is a poor historian. Review of Systems 2 Constitutional: Constitutional: Denies chills, Denies fatigue, Denies fever(s) and Denies headache(s) Eyes: Eyes: Denies change in vision and Denies photophobia ENT: Denies headache(s), Denies nasal congestion, Denies nasal discharge and Denies sore throat Comments: dizziness Cardiovascular: Cardiovascular: Denies chest pain, Denies syncope, Denies rapid heart rate, Reports leg edema, Reports lightheadedness, Reports dyspnea and Reports dyspnea on exertion Respiratory: Respiratory: Denies chest congestion, Denies cough, Reports dyspnea, Reports dyspnea on exertion and Reports wheezing Gastrointestinal: Gastrointestinal: Denies abdominal pain, Denies diarrhea, Denies nausea and Denies vomiting Genitourinary: Genitourinary: Denies hematuria, Denies dysuria and Denies urinary urgency Comments: malodorous urine Musculoskeletal: Musculoskeletal: Denies myalgias Integumentary/Breasts: Skin/Breast: Denies rash Neurologic: Denies confusion, Denies syncope and Denies headache(s) Psychiatric: Psychiatric: Denies confusion Endocrine: Endocrine: Denies fatigue Hematologic/Lymphatic: Hematologic/Lymphatic: Denies easy bleeding and Denies easy bruising Allergic/Immunologic: Allergic/Immunologic: Reports wheezing [facility] Medical History (Updated 07/07/24 @ 21:05 by Roxanna Bush PA-C) Chest pain Congestive heart failure Bilateral pleural effusion Anemia CHF (congestive heart failure) Urinary tract infection Hypertension Symptomatic anemia Brain lesion Iron deficiency anemia HLD (hyperlipidemia) Depression Type 2 diabetes mellitus Family History Other Hypertension Social History Household Members: Children Household Members Other:: Daughter Housing: Apartment Do you presently have visiting nurse or other home services: Yes (not sure who it is) Unable to assess alcohol history related to: Unable to respond Alcohol intake: former Patient Tobacco Use Status: Never used Tobacco Smoked in Last 30 Days: No e-Cigarette/Vaping Use: Never Used Second Hand Smoke Exposure: No Use of substances other than those prescribed or required for medical reasons: No Advance Directives: Yes Advance Directives on File: Yes Advance Directives Date on File: 06/19/21 Do you have a plan to hurt others: No Plan Patient : No service: No Current occupational status: unemployed Narrative: no smoking or etoh Meds Allergies Allergy/AdvReac Type Severity Reaction Status Date / Time shrimp Allergy Swelling Verified 07/07/24 16:52 Active Medications: Current Medications Dextrose (Dextrose 50 % 25 Gm/50 Ml Syringe) 25 gm IVPUSH Q15M PRN; Protocol PRN Reason: per Hypoglycemia Standing Ord. Glucose (Glucose Gel 15 Gm Gel..Gram.) 15 gm PO Q15M PRN; Protocol PRN Reason: per Hypoglycemia Standing Ord. Insulin Glargine (Insulin Glargine,Hum.Rec.Anlog 100 Unit/Ml 10 Ml Vial) 10 unit SUBCUT BEDTIME [facility] Insulin Human Lispro (Insulin Lispro 100 Unit/Ml 3 Ml Vial) 0 unit SUBCUT QIDACHS [facility]; Protocol Home Medications ?Medication ?Instructions ?Recorded ?Confirmed ?Last Taken ?Type aspirin 81 mg tablet,delayed 1 tab PO DAILY 07/21/22 06/25/24 05/28/24 History release ferrous sulfate 324 mg (65 mg 324 mg PO Q OTHER DAY 04/07/24 06/25/24 05/28/24 History iron) tablet,delayed release omeprazole 40 mg capsule,delayed 40 mg PO DAILY@0630 04/07/24 06/25/24 05/28/24 History release gabapentin 100 mg capsule 100 mg PO BEDTIME 05/31/24 06/25/24 05/28/24 History ondansetron 8 mg disintegrating 8 mg PO Q8H PRN nausea/vomiting 05/31/24 06/25/24 Unknown History tablet Physical Exam 2 Vital Signs and Narrative: Vital Signs: Last Vital Signs Temp 97.7 F 07/07/24 18:54 Pulse 79 07/07/24 18:54 Resp 19 07/07/24 18:54 BP 148/60 H 07/07/24 18:57 Pulse Ox 94 07/07/24 18:54 O2 Del Method Nasal Cannula 07/07/24 18:54 O2 Flow Rate 4 07/07/24 18:54 BMI result Body Mass Index 25.7 General: AOx3, no acute distress Resp: wheezing bilaterally, crackles lower lungs CVS: S1, S2, RRR GI: +BS, NT, no distention Skin: Warm, dry Neuro: Cranial nerves II-XII grossly intact bilaterally. Motor grossly intact bilaterally Extremities: No LE edema Psych: Appropriate affect Const: General: No confusion Orientation/consciousness: No confusion Eyes: Direct Ophthalmoscopy: No photophobia Neuro: General: No confusion Results Labs 07/07/24 17:28 07/07/24 17:28 Labs: Laboratory Results - last 24 hr 07/07/24 07/07/24 17:28 17:37 MCV 87.4 MCH 28.4 MCHC 32.5 RDW 15.1 Plt Count 152 L MPV 8.3 L Immature Gran % (Auto) 0.4 Neut % (Auto) 61.7 Lymph % (Auto) 29.3 [place] % (Auto) 5.7 Eos % (Auto) 2.5 Baso % (Auto) 0.4 Lymph # (Auto) 2.1 [place] # (Auto) 0.4 Eos # (Auto) 0.2 Baso # (Auto) 0.0 Abs Immat Gran (auto) 0.03 Absolute Neuts (auto) 4.5 Absolute Nucleated RBC 0.000 Nucleated RBC % (auto) 0.0 APTT 32.8 VBG pH 7.30 L VBG pCO2 44 VBG pO2 49 VBG HCO3 22 VBG O2 Saturation TNP VBG Base Excess -3.9 Anion Gap 11 L Estim Creat Clear Calc 24.4 Estimated GFR 21 Random Glucose 161 H Lactic Acid 0.6 Calcium 8.2 L D Total Bilirubin 0.2 Direct Bilirubin < 0.2 AST 25 ALT 28 Alkaline Phosphatase 112 B-Natriuretic Peptide 600 H Total Protein 7.5 Albumin 3.1 L Lipase 38 Influenza Type A (PCR) NEGATIVE Influenza Type B (PCR) NEGATIVE RSV RNA Qual (PCR) NEGATIVE SARS-CoV-2 RNA (RT-PCR) NEGATIVE Assessment and Plan (1) Acute and chronic respiratory failure with hypoxia: Status: Acute (2) Acute on chronic heart failure with mildly reduced ejection fraction (HFmrEF, 41-49%): Status: Acute (3) COPD exacerbation: Status: Acute (4) Dizziness: Status: Acute (5) Acute kidney injury superimposed on CKD: Status: Acute Plan Patient is a 54-year-old Maltese-speaking female with a past medical history significant for COPD on O2 2-3 L via NC, chronic systolic and diastolic congestive heart failure and pleural effusions (requiring thoracentesis in the past), diabetes on insulin, chronic anemia requiring blood transfusion in the past, essential hypertension, orthostatic hypotension and hyperlipidemia, who presented to the ED due to shortness of breath, VICENTE, bilateral lower extremity edema and pain, as well as dizziness. Acute on chronic respiratory failure due to acute on chronic congestive heart failure and mild COPD exacerbation - WBC 7.3, vital signs stable aside from increased O2 requirement, lactic acid normal, no sepsis, no acute infection - chest x-ray with moderate bilateral pleural effusions. bilateral infiltrates, edema and/or atelectasis. Due to no cough or fever, pneumonia unlikely - COVID/flu/RSV negative - BNP elevated at 600 - mild respiratory acidosis on VBG - given lasix 40mg IV in ED, no urine output yet, bladder scan now - dueonebs Q4H while awake - start solumedrol 40mg IV BID - monitor CBC and BMP - moderate pleural effusions noted on CXR, will defer to day team regarding need for repeat thoracentesis dizziness, likely secondary to hypoxia - neuro exam normal, continue to monitor DILLON on CKD - Cr 2.37 - UA not yet done - bladder scan as above - fluids deferred due to CHF exacerbation - avoid nephrotoxins when possible - monitor BMP Insulin dependent DM - diabetic diet - lantus 5U tonight due to lack of eating today, resume normal 10U dose when appropriate - sliding scale insulin chronic anemia - H+H stable, no need for blood transfusion at this time - continue iron - monitor CBC HTN - resume amlodipine when appropriate HLD - no home meds DNI, discussed in depth with pt VTE prophy: pneumonboots due to anemia Pt with acute on chronic respiratory failure secondary to CHF and COPD exacerbation, complicated by recurrent pleural effusions, requiring admission for at least 2 midnights stay for IV diuresis and monitoring. Quality Stroke Does the patient have a stroke diagnosis?: No VTE Prior VTE?: No VTE Risk Level:: Medical - moderate - high VTE Device Contraindication: N/A - Device Ordered VTE Drug Contraindication: Treatment Not Indicated
--- NOTE | 2024-07-07 20:50 | ED.GENADULT ---
HPI - General Adult General Chief complaint: General Medical Stated complaint: general weakness peripheral edema leg pain Time Seen by Provider: 07/07/24 16:48 Source: patient Mode of arrival: ambulatory Limitations: other Related Data Home Medications ?Medication ?Instructions ?Recorded ?Confirmed aspirin 81 mg tablet,delayed 1 tab PO DAILY 07/21/22 07/07/24 release ferrous sulfate 324 mg (65 mg 324 mg PO DAILY 04/07/24 07/07/24 iron) tablet,delayed release omeprazole 40 mg capsule,delayed 40 mg PO DAILY@0630 04/07/24 07/07/24 release gabapentin 100 mg capsule 100 mg PO BEDTIME 05/31/24 07/07/24 furosemide 20 mg tablet 20 mg PO DAILY 07/07/24 07/07/24 insulin glargine 100 unit/mL 8 unit subcut BEDTIME 07/07/24 07/07/24 subcutaneous solution (Lantus U-100 Insulin) ondansetron HCl 4 mg tablet 4 - 8 mg PO Q8H PRN nausea/vomiting 07/07/24 07/07/24 Previous Rx's ?Medication ?Instructions ?Recorded blood sugar diagnostic (FreeStyle #100 ea 10/02/22 Test strips) amlodipine 10 mg tablet 10 mg PO DAILY #30 tabs 09/19/23 lactulose 10 gram/15 mL oral 10 g (15 mL) PO BID PRN 03/26/24 solution constipation #473 mL Allergies Allergy/AdvReac Type Severity Reaction Status Date / Time shrimp Allergy Swelling Verified 07/07/24 16:52 Review of Systems Review of Systems: Sob seems improving no cough or fevers Yes all other systems are reviewed and are negative Constitutional: Constitutional: Denies chills, Denies fatigue, Denies fever(s) and Denies headache(s) Eyes: Eyes: Denies change in vision and Denies photophobia ENT: Denies headache(s), Denies nasal congestion, Denies nasal discharge and Denies sore throat Cardiovascular: Cardiovascular: Denies chest pain, Denies syncope, Denies rapid heart rate, Reports leg edema, Reports lightheadedness, Reports dyspnea and Reports dyspnea on exertion Respiratory: Respiratory: Denies chest congestion, Denies cough, Reports dyspnea, Reports dyspnea on exertion and Reports wheezing Gastrointestinal: Gastrointestinal: Denies abdominal pain, Denies diarrhea, Denies nausea and Denies vomiting Musculoskeletal: Musculoskeletal: Denies myalgias Integumentary/Breasts: Skin/Breast: Denies rash Neurologic: Denies confusion, Denies syncope and Denies headache(s) Psychiatric: Psychiatric: Denies confusion Endocrine: Endocrine: Denies fatigue Hematologic/Lymphatic: Hematologic/Lymphatic: Denies easy bleeding and Denies easy bruising Allergic/Immunologic: Allergic/Immunologic: Reports wheezing PMFSH Past Medical History Medical History (Updated 07/09/24 @ 16:33 by José Maldonado MD) Chest pain Congestive heart failure Bilateral pleural effusion Anemia CHF (congestive heart failure) Urinary tract infection Hypertension Symptomatic anemia Brain lesion Iron deficiency anemia HLD (hyperlipidemia) Depression Type 2 diabetes mellitus Family History Family History Other Hypertension Social History Social History Household Members: Children Household Members Other:: Daughter Housing: Apartment Do you presently have visiting nurse or other home services: Yes Unable to assess alcohol history related to: Unable to respond Alcohol intake: former Patient Tobacco Use Status: Never used Tobacco e-Cigarette/Vaping Use: Never Used Second Hand Smoke Exposure: No Advance Directives Date on File: 06/19/21 service: No Current occupational status: unemployed Physical Exam ED Vital Signs: Vital Signs - 24 hr 07/07/24 16:50 07/07/24 18:54 07/07/24 18:57 Temperature 97.9 F 97.7 F Pulse Rate 79 79 Respiratory Rate 18 19 Blood Pressure 143/62 H 148/60 H 148/60 H Pulse Oximetry 96 94 Oxygen Delivery Method Room Air Nasal Cannula Oxygen Flow Rate 4 BMI result Body Mass Index 25.7 Const General: no acute distress; No confusion Orientation/consciousness: patient oriented x3 and No confusion Eyes EOM: EOMs intact bilaterally Direct Ophthalmoscopy: No photophobia Neck Neck: Yes supple Chest Chest palpation & inspection: normal inspection of the chest Resp Effort & Inspection: normal respiratory effort and prolonged expiratory phase Auscultation: diminished lung sounds Cardio Rate: regular rate GI Palpation (GI): Soft to palpation Neuro General: patient oriented x3, moves all extremities and No confusion Medications Administered Generic Name Dose Route Start Last Admin Trade Name Freq PRN Reason Stop Dose Admin Albuterol/Ipratropium 3 ml 07/08/24 08:00 07/12/24 20:12 Albuterol/Iprat 2.5/0.5mg 3 Ml Ampul.Neb INHALE Not Given RQ4H WHILE AWAKE [facility] Amlodipine Besylate 10 mg 07/08/24 09:00 07/12/24 07:27 Amlodipine Besylate 10 Mg Tablet PO 10 mg DAILY JM Administration Protocol Aspirin 81 mg 07/08/24 09:00 07/12/24 07:26 Aspirin Enteric Coated 81 Mg Tablet. PO 81 mg DAILY JM Administration Ferrous Sulfate 324 mg 07/08/24 09:00 07/12/24 07:26 Ferrous Sulfate 324 Mg Tablet. PO 324 mg DAILY JM Administration Gabapentin 100 mg 07/08/24 21:00 07/12/24 22:00 Gabapentin 100 Mg Capsule PO 100 mg BEDTIME JM Administration Insulin Glargine 5 unit 07/07/24 21:00 07/12/24 22:00 Insulin Glargine,Hum.Rec.Anlog 100 Unit/Ml 10 Ml Vial SUBCUT 5 unit BEDTIME JM Administration Insulin Human Lispro 0 unit 07/07/24 21:00 07/12/24 22:00 Insulin Lispro 100 Unit/Ml 3 Ml Vial SUBCUT 10 unit QIDACHS [facility] Administration Protocol Magnesium Hydroxide 30 ml 07/07/24 21:16 07/12/24 07:34 Milk Of Magnesia 30 Ml Oral.Susp PO 30 ml DAILY PRN Administration Constipation Omeprazole 40 mg 07/09/24 06:30 07/13/24 04:56 Omeprazole 40 Mg Capsule. PO 40 mg DAILY@0630 JM Administration Prednisone 40 mg 07/11/24 09:00 07/12/24 07:26 Prednisone 20 Mg Tablet PO 40 mg DAILY [facility] Administration Sodium Chloride 3 ml 07/08/24 00:00 07/12/24 22:01 0.9 % Sodium Chloride Flush 3 Ml Syringe IVFLUSH 3 ml QSHIFT [facility] Administration Discontinued Medications Generic Name Dose Route Start Last Admin Trade Name Freq PRN Reason Stop Dose Admin Furosemide 40 mg 07/07/24 18:14 07/07/24 18:57 Furosemide 40 Mg/4 Ml Vial IVPUSH 07/07/24 18:15 40 mg ONCE ONE Administration Protocol Furosemide 40 mg 07/08/24 18:00 07/10/24 07:35 Furosemide 40 Mg/4 Ml Vial IVPUSH 40 mg BID@0900,1800 [facility] Administration Protocol Furosemide 40 mg 07/08/24 09:18 07/08/24 09:45 Furosemide 40 Mg/4 Ml Vial IVPUSH 07/08/24 09:19 40 mg ONCE ONE Administration Protocol Methylprednisolone Sodium Succinate 40 mg 07/07/24 22:00 07/10/24 10:45 Methylprednisolone Sod Succ 40 Mg/Ml Vial IVPUSH 40 mg Q12H JM Administration Sodium Zirconium Cyclosilicate 5 gm 07/12/24 10:20 07/12/24 10:53 Sodium Zirconium Cyclosilicate 5 Gm Powd.Pack PO 07/12/24 10:21 5 gm ONCE ONE Administration Medical Decision Making Lab Data 07/11/24 08:21 07/12/24 07:49 Labs: Lab Results 07/07/24 07/07/24 Range/Units 17:28 17:37 WBC 7.3 (4.8-10.8) X10*3/uL RBC 2.78 L (4.20-5.50) X10*6/uL Hgb 7.9 L (12.0-16.0) g/dl Hct 24.3 L (37.0-47.0) % MCV 87.4 (80.0-98.0) fL MCH 28.4 (27.0-33.0) pg MCHC 32.5 (31.0-35.0) g/dl RDW 15.1 (11.0-16.0) % Plt Count 152 L (160-400) X10*3/uL MPV 8.3 L (9.4-12.3) fL Immature Gran % (Auto) 0.4 (0.0-0.4) % Neut % (Auto) 61.7 (45-73) % Lymph % (Auto) 29.3 (20-40) % [place] % (Auto) 5.7 (2-11) % Eos % (Auto) 2.5 (0-4) % Baso % (Auto) 0.4 (0-2) % Lymph # (Auto) 2.1 (1.2-4.9) X10*3/uL [place] # (Auto) 0.4 (0.1-1.2) X10*3/uL Eos # (Auto) 0.2 (0.0-0.4) X10*3/uL Baso # (Auto) 0.0 (0.0-0.2) X10*3/uL Abs Immat Gran (auto) 0.03 (0.00-0.03) X10*3/uL Absolute Neuts (auto) 4.5 (2.0-8.3) x10*3/uL Absolute Nucleated RBC 0.000 (0.0-0.012) X10*3/uL Nucleated RBC % (auto) 0.0 (0.0-0.2) /100WBC APTT 32.8 (26.0-36.8) SEC VBG pH 7.30 L (7.32-7.43) VBG pCO2 44 mmHg VBG pO2 49 mmHg VBG HCO3 22 (22-26) mmol/L VBG O2 Saturation TNP VBG Base Excess -3.9 mmol/L Sodium 139 (135-145) mmol/L Potassium 3.9 (3.3-5.1) mmol/L Chloride 112 H (96-108) mmol/L Carbon Dioxide 20 L (22-29) mmol/L Anion Gap 11 L (12-20) BUN 29 H (9-16) mg/dL Creatinine 2.37 H (0.5-1.4) mg/dL Estim Creat Clear Calc 24.4 Estimated GFR 21 Random Glucose 161 H (60-115) mg/dL Lactic Acid 0.6 (0.5-2.0) mmol/L Calcium 8.2 L D (8.4-10.2) mg/dL Total Bilirubin 0.2 (0.0-1.0) mg/dL Direct Bilirubin < 0.2 (0.0-0.5) mg/dL AST 25 (5-31) U/L ALT 28 (0-31) U/L Alkaline Phosphatase 112 (39-117) U/L Troponin I High Sens 17.7 H (<3.5-17.0) ng/L B-Natriuretic Peptide 600 H (<100) pg/mL Total Protein 7.5 (6.5-8.0) g/dL Albumin 3.1 L (3.5-5.0) g/dL Lipase 38 (8-78) U/L Influenza Type A (PCR) NEGATIVE (Negative) Influenza Type B (PCR) NEGATIVE (Negative) RSV RNA Qual (PCR) NEGATIVE (Negative) SARS-CoV-2 RNA (RT-PCR) NEGATIVE (Negative) Discharge Plan Discharge Clinical Impression: Dizziness, Weakness Acute exacerbation of CHF (congestive heart failure) Qualifiers: Heart failure type: combined systolic and diastolic Qualified Code(s): I50.43 - Acute on chronic combined systolic (congestive) and diastolic (congestive) heart failure Patient Disposition: Admitted As Inpatient Interventions: Admission Worksheet (ED) Last Done: 07/08/24 07:12 Discharge Date/Time: 07/08/24 09:58
--- NOTE | 2024-07-07 21:54 | PHA.MEDREC ---
Addendum entered by Akash Asif [facility] 07/07/24 22:07: med rec reviewed Original Note: Pharmacy Consult ? Medication Reconciliation Pharmacy has completed the medication reconciliation. Spoke with patients son at bedside who was able to confirm the medications. He states his mom has been in and out of the hospital for the last few months and she has an abundance at home of them but also stated they just saw his moms PCP recently who sent new refills to her pharmacy. He did confirm his moms Lantus and confirmed she is injecting 8 units of that at bedtime.
[2024-07-07 21:56] LABS: Glucose, Whole Blood 128 mg/dL (60-115)
[2024-07-07] MEDS: Insulin Glargine,Hum.rec.anlog 100 UNIT/ML 10 ML VIAL SUBCUT (21:59)
[2024-07-07] MEDS: methylPREDNISolone Sod Succ 40 MG/ML VIAL IVPUSH (22:00)
[2024-07-08] VITALS (11 sets, daily range): BP systolic 150–168; BP diastolic 61–77; PULSE 85–97; RESP 16–20; TEMP 36.4–37; O2SAT 92–98
[2024-07-08] MEDS: 0.9 % Sodium Chloride Flush 3 ML SYRINGE IVFLUSH ×3 (00:16→17:04)
[2024-07-08 00:26] LABS: Troponin-I High Sensitivity 16.5 ng/L (<3.5-17.0)
--- NOTE | 2024-07-08 02:32 | PC.NURSE ---
Jaylin put in place at pts request
--- NOTE | 2024-07-08 04:13 | PC.NURSE ---
Took report from off-going RN at 2300 hours. Pt presented to the ED for evaluation bilateral lower extremity edema and pain and some dizziness X 5-6 days. Pt is Indonesian speaking, arousable with stimuli. Pt is calm and cooperative. Call sampson is within reach and pt encouraged ring for any needs. Pt has been sleeping most of the shift, changing positions as desired independently. Bed assignment is pending. Will continue to monitor for any changes.
[2024-07-08 06:10] LABS: Basophils Percent Auto 0.3 % (0-2); Hematocrit 23.8 % (37.0-47.0); Imm Gran Abs Auto 0.03 X10*3/uL (0.00-0.03); Imm Gran Pct Auto 0.5 % (0.0-0.4); Lymphocytes Absolute Auto 0.8 X10*3/uL (1.2-4.9); Lymphocytes Percent Auto 11.4 % (20-40); MANUAL DIFF FLAG SCAN; Mean Corpuscular HGB Conc 33.6 g/dl (31.0-35.0); Mean Corpuscular Hemoglobin 28.9 pg (27.0-33.0); Mean Corpuscular Volume 85.9 fL (80.0-98.0); Mean Platelet Volume 9.2 fL (9.4-12.3); Monocytes Percent Auto 0.6 % (2-11); Neutrophils Absolute Auto 5.7 x10*3/uL (2.0-8.3); Neutrophils Percent Auto 87.2 % (45-73); Platelet Count 160 X10*3/uL (160-400); Red Blood Count 2.77 X10*6/uL (4.20-5.50); Red Cell Distribution Width 14.6 % (11.0-16.0); SCAN SMEAR FLAG 1; White Blood Count 6.6 X10*3/uL (4.8-10.8)
[2024-07-08 06:11] LABS: Anion Gap 12 (12-20); Blood Urea Nitrogen 29 mg/dL (9-16); Calcium 8.9 mg/dL (8.4-10.2); Carbon Dioxide 19 mmol/L (22-29); Chloride 111 mmol/L (96-108); Creatinine Clr Calc Pharmacy 25.4; Estimated Glomerular Filt Rate 22; Glucose Random 179 mg/dL (60-115); Potassium 4.3 mmol/L (3.3-5.1); Sodium 138 mmol/L (135-145)
[2024-07-08 06:54] LABS: Appearance Urine Clear; Color Urine Yellow; Glucose Urine UA Negative (Negative); Leukocyte Esterase Urine Negative (Negative); Nitrite Urine Positive (Negative); PH 5.5 (5.0-9.0); UMIC TRIGGER UACC YES; Urine Blood Trace (Negative); Urine Ketones Negative (Negative); Urine Protein 300 (3+) mg/dL (Neg-Trace)
[2024-07-08 07:05] LABS: Bacteria Urine Trace (None Seen); RBC Urine 0-2 /HPF (0-2); Squamous Epithelial Cell Urine 0-2 /HPF (0-2); UACC Culture Trigger YES; WBC Urine 0-5 /HPF (0-5)
[2024-07-08] MEDS: Insulin Lispro 100 UNIT/ML 3 ML VIAL SUBCUT ×4 (07:28→21:49)
[2024-07-08 07:32] LABS: Glucose, Whole Blood 169 mg/dL (60-115)
[2024-07-08 07:36] LABS: SLIDE REVIEW VERIFIED
--- NOTE | 2024-07-08 08:50 | MHC.CM.PN ---
Addendum entered by Christie Scott 07/08/24 12:50: Patient is currently active with [facility] for SN, PT & OT. Original Note: Patient lives in an apartment with her Son and she uses a walker to assist with mobility. Patient has had [facility] and home is Patient's goal; CM has initiated and will follow for dc planning. PCP is Dr. Neelima Singh and Patient will arrange her own transport at dc. HCP on file names Dave as her Agent.
[2024-07-08] MEDS: amLODIPine Besylate 10 MG TABLET PO (09:13)
[2024-07-08] MEDS: Aspirin Enteric Coated 81 MG TABLET.DR PO (09:13)
[2024-07-08] MEDS: Ferrous Sulfate 324 MG TABLET.DR PO (09:14)
[2024-07-08] MEDS: methylPREDNISolone Sod Succ 40 MG/ML VIAL IVPUSH ×2 (09:14→20:44)
[2024-07-08] MEDS: Furosemide 40 MG/4 ML VIAL IVPUSH ×2 (09:45→17:04)
[2024-07-08] MEDS: Albuterol/Iprat 2.5/0.5MG 3 ML AMPUL.NEB INHALE ×3 (11:09→20:34)
[2024-07-08 11:54] LABS: Glucose, Whole Blood 253 mg/dL (60-115)
[2024-07-08 15:45] LABS: Adenovirus PCR Not Detected (Not Detect.); Bordetella parapertussis PCR Not Detected (Not Detect.); Bordetella pertussis PCR Not Detected (Not Detect.); Chlamydia pneumoniae PCR Not Detected (Not Detect.); Coronavirus 229E PCR Not Detected (Not Detect.); Coronavirus HKU1 PCR Not Detected (Not Detect.); Coronavirus NL63 PCR Not Detected (Not Detect.); Coronavirus OC43 PCR Not Detected (Not Detect.); Human metapneumovirus PCR Not Detected (Not Detect.); Influenza A PCR Not Detected (Not Detect.); Influenza B PCR Not Detected (Not Detect.); Mycoplasma pneumoniae PCR Not Detected (Not Detect.); Parainfluenza 1 PCR Not Detected (Not Detect.); Parainfluenza 2 PCR Not Detected (Not Detect.); Parainfluenza 3 PCR Not Detected (Not Detect.); Parainfluenza 4 PCR Not Detected (Not Detect.); RSV PCR Not Detected (Not Detect.); Rhino/Enterovirus PCR Not Detected (Not Detect.)
[2024-07-08 15:59] LABS: SARS-CoV-2 PCR Not Detected (Not Detect.)
[2024-07-08 16:03] LABS: Glucose, Whole Blood 290 mg/dL (60-115)
--- NOTE | 2024-07-08 16:45 | HO.PM.IMPN ---
Subjective Subjective Date of Service: 07/08/24 Interval History: sob Review of Systems Shortness of breath somewhat improving but still short of breath with exertion Denies any chest pain. Physical Exam Vital Signs: Vital Signs: Last Vital Signs Temp 97.6 F 07/08/24 15:02 Pulse 96 07/08/24 15:19 Resp 18 07/08/24 15:19 BP 165/72 H 07/08/24 15:02 Pulse Ox 96 07/08/24 15:02 O2 Del Method Room Air 07/08/24 15:02 O2 Flow Rate 3 07/08/24 11:35 BMI result Body Mass Index 25.7 Appearance: Alert.? Oriented X3. cvs: rrr, [id number]. res: air entry somewhat diminshed ,has wheezing abd: soft,,nt, bs present. ext pulses present , no cyanosis . neuro: axo3 , nonfocal. Objective Data Active Medications Acetaminophen (Acetaminophen 325 Mg Tablet) 975 mg PO Q6H PRN PRN Reason: Pain, Mild 1-3,fever,headache Albuterol/Ipratropium (Albuterol/Iprat 2.5/0.5mg 3 Ml Ampul.Neb) 3 ml INHALE RQ4H WHILE AWAKE ON LICENSE OF [facility] Last Admin: 07/08/24 15:17 Dose: 3 ml Documented By: JEFFERY Amlodipine Besylate (Amlodipine Besylate 10 Mg Tablet) 10 mg PO DAILY ON LICENSE OF [facility]; Protocol Last Admin: 07/08/24 09:13 Dose: 10 mg Documented By: CATARINA Aspirin (Aspirin Enteric Coated 81 Mg Tablet.) 81 mg PO DAILY ON LICENSE OF [facility] Last Admin: 07/08/24 09:13 Dose: 81 mg Documented By: CATARINA Calcium Carbonate (Calcium Carbonate 750 Mg Tab.Chew) 750 mg PO Q4H PRN PRN Reason: Heartburn Dextrose (Dextrose 50 % 25 Gm/50 Ml Syringe) 25 gm IVPUSH Q15M PRN; Protocol PRN Reason: per Hypoglycemia Standing Ord. Ferrous Sulfate (Ferrous Sulfate 324 Mg Tablet.) 324 mg PO DAILY ON LICENSE OF [facility] Last Admin: 07/08/24 09:14 Dose: 324 mg Documented By: CATARINA Furosemide (Furosemide 40 Mg/4 Ml Vial) 40 mg IVPUSH BID@0900,1800 ON LICENSE OF [facility]; Protocol Gabapentin (Gabapentin 100 Mg Capsule) 100 mg PO BEDTIME ON LICENSE OF [facility] Glucose (Glucose Gel 15 Gm Gel..Gram.) 15 gm PO Q15M PRN; Protocol PRN Reason: per Hypoglycemia Standing Ord. Insulin Glargine (Insulin Glargine,Hum.Rec.Anlog 100 Unit/Ml 10 Ml Vial) 5 unit SUBCUT BEDTIME ON LICENSE OF [facility] Last Admin: 07/07/24 21:59 Dose: 5 unit Documented By: LUCITA Insulin Human Lispro (Insulin Lispro 100 Unit/Ml 3 Ml Vial) 0 unit SUBCUT QIDACHS ON LICENSE OF [facility]; Protocol Last Admin: 07/08/24 12:36 Dose: 6 unit Documented By: ZEENAT Lactulose (Lactulose 20 Gm/30 Ml Solution) 10 gm PO BID PRN PRN Reason: constipation Magnesium Hydroxide (Milk Of Magnesia 30 Ml Oral.Susp) 30 ml PO DAILY PRN PRN Reason: Constipation Melatonin (Melatonin 3 Mg Tablet) 6 mg PO BEDTIME PRN PRN Reason: Insomnia Methylprednisolone Sodium Succinate (Methylprednisolone Sod Succ 40 Mg/Ml Vial) 40 mg IVPUSH Q12H ON LICENSE OF [facility] Last Admin: 07/08/24 09:14 Dose: 40 mg Documented By: CATARINA Omeprazole (Omeprazole 40 Mg Capsule.) 40 mg PO DAILY@0630 ON LICENSE OF [facility] Ondansetron HCl (Ondansetron Hcl 4 Mg/2 Ml Vial) 4 mg IVPUSH Q8H PRN PRN Reason: Nausea and Vomiting Sodium Chloride (0.9 % Sodium Chloride Flush 3 Ml Syringe) 3 ml IVFLUSH QSHIFT ON LICENSE OF [facility] Last Admin: 07/08/24 09:14 Dose: 3 ml Documented By: CATARINA Labs 07/08/24 04:52 07/08/24 04:52 Labs: Laboratory Results - last 24 hr 07/07/24 07/07/24 07/07/24 17:28 17:37 21:49 MCV 87.4 MCH 28.4 MCHC 32.5 RDW 15.1 Plt Count 152 L MPV 8.3 L Immature Gran % (Auto) 0.4 Neut % (Auto) 61.7 Lymph % (Auto) 29.3 [place] % (Auto) 5.7 Eos % (Auto) 2.5 Baso % (Auto) 0.4 Lymph # (Auto) 2.1 [place] # (Auto) 0.4 Eos # (Auto) 0.2 Baso # (Auto) 0.0 Abs Immat Gran (auto) 0.03 Absolute Neuts (auto) 4.5 Absolute Nucleated RBC 0.000 Nucleated RBC % (auto) 0.0 Smear Tech's Comments APTT 32.8 VBG pH 7.30 L VBG pCO2 44 VBG pO2 49 VBG HCO3 22 VBG O2 Saturation TNP VBG Base Excess -3.9 Anion Gap 11 L Estim Creat Clear Calc 24.4 Estimated GFR 21 POC Glucose 128 H Random Glucose 161 H Lactic Acid 0.6 Calcium 8.2 L D Total Bilirubin 0.2 Direct Bilirubin < 0.2 AST 25 ALT 28 Alkaline Phosphatase 112 B-Natriuretic Peptide 600 H Total Protein 7.5 Albumin 3.1 L Lipase 38 Urine Color Urine Appearance Urine pH Ur Specific [place] Urine Protein Urine Glucose (UA) Urine Ketones Urine Blood Urine Nitrite Ur Leukocyte Esterase Urine RBC Urine WBC Ur Squamous Epith Cells Urine Bacteria Hyaline Casts Urine Yeast Respiratory Panel Herrera Adenovirus (Rapid PCR) B.pert (TEM-PCR) B.parapertussis DNA PCR C. pneumoniae DNA (PCR) Coronavirus OC43 (PCR) Coronavirus HKU1 (PCR) Coronavirus 229E (PCR) Coronavirus NL63 (PCR) Human Metapneumovir PCR Influenza A (RT-PCR) Influenza Type A (PCR) NEGATIVE Influenza B (RT-PCR) Influenza Type B (PCR) NEGATIVE M. pneumoniae (PCR) Parainfluenza 1 (PCR) Parainfluenza 2 (PCR) Parainfluenza 3 (PCR) Parainfluenza 4 (PCR) RSV (PCR) RSV RNA Qual (PCR) NEGATIVE Entero/Rhino (PCR) SARS-CoV-2 RNA (RT-PCR) NEGATIVE 07/08/24 07/08/24 07/08/24 04:52 06:41 07:15 MCV 85.9 MCH 28.9 MCHC 33.6 RDW 14.6 Plt Count 160 MPV 9.2 L Immature Gran % (Auto) 0.5 H Neut % (Auto) 87.2 H Lymph % (Auto) 11.4 L [place] % (Auto) 0.6 L Eos % (Auto) 0.0 Baso % (Auto) 0.3 Lymph # (Auto) 0.8 L [place] # (Auto) 0.0 L Eos # (Auto) 0.0 Baso # (Auto) 0.0 Abs Immat Gran (auto) 0.03 Absolute Neuts (auto) 5.7 Absolute Nucleated RBC 0.000 Nucleated RBC % (auto) 0.0 Smear Tech's Comments VERIFIED APTT VBG pH VBG pCO2 VBG pO2 VBG HCO3 VBG O2 Saturation VBG Base Excess Anion Gap 12 Estim Creat Clear Calc 25.4 Estimated GFR 22 POC Glucose 169 H Random Glucose 179 H Lactic Acid Calcium 8.9 D Total Bilirubin Direct Bilirubin AST ALT Alkaline Phosphatase B-Natriuretic Peptide Total Protein Albumin Lipase Urine Color Yellow Urine Appearance Clear Urine pH 5.5 Ur Specific [place] 1.010 Urine Protein 300 (3+) H Urine Glucose (UA) Negative Urine Ketones Negative Urine Blood Trace H Urine Nitrite Positive H Ur Leukocyte Esterase Negative Urine RBC 0-2 Urine WBC 0-5 Ur Squamous Epith Cells 0-2 Urine Bacteria Trace Hyaline Casts 3-5 Urine Yeast Present Respiratory Panel Herrera Adenovirus (Rapid PCR) B.pert (TEM-PCR) B.parapertussis DNA PCR C. pneumoniae DNA (PCR) Coronavirus OC43 (PCR) Coronavirus HKU1 (PCR) Coronavirus 229E (PCR) Coronavirus NL63 (PCR) Human Metapneumovir PCR Influenza A (RT-PCR) Influenza Type A (PCR) Influenza B (RT-PCR) Influenza Type B (PCR) M. pneumoniae (PCR) Parainfluenza 1 (PCR) Parainfluenza 2 (PCR) Parainfluenza 3 (PCR) Parainfluenza 4 (PCR) RSV (PCR) RSV RNA Qual (PCR) Entero/Rhino (PCR) SARS-CoV-2 RNA (RT-PCR) 07/08/24 07/08/24 07/08/24 11:15 11:34 15:11 MCV MCH MCHC RDW Plt Count MPV Immature Gran % (Auto) Neut % (Auto) Lymph % (Auto) [place] % (Auto) Eos % (Auto) Baso % (Auto) Lymph # (Auto) [place] # (Auto) Eos # (Auto) Baso # (Auto) Abs Immat Gran (auto) Absolute Neuts (auto) Absolute Nucleated RBC Nucleated RBC % (auto) Smear Tech's Comments APTT VBG pH VBG pCO2 VBG pO2 VBG HCO3 VBG O2 Saturation VBG Base Excess Anion Gap Estim Creat Clear Calc Estimated GFR POC Glucose 253 H 290 H Random Glucose Lactic Acid Calcium Total Bilirubin Direct Bilirubin AST ALT Alkaline Phosphatase B-Natriuretic Peptide Total Protein Albumin Lipase Urine Color Urine Appearance Urine pH Ur Specific [place] Urine Protein Urine Glucose (UA) Urine Ketones Urine Blood Urine Nitrite Ur Leukocyte Esterase Urine RBC Urine WBC Ur Squamous Epith Cells Urine Bacteria Hyaline Casts Urine Yeast Respiratory Panel Herrera See Note Adenovirus (Rapid PCR) Not Detected B.pert (TEM-PCR) Not Detected B.parapertussis DNA PCR Not Detected C. pneumoniae DNA (PCR) Not Detected Coronavirus OC43 (PCR) Not Detected Coronavirus HKU1 (PCR) Not Detected Coronavirus 229E (PCR) Not Detected Coronavirus NL63 (PCR) Not Detected Human Metapneumovir PCR Not Detected Influenza A (RT-PCR) Not Detected Influenza Type A (PCR) Influenza B (RT-PCR) Not Detected Influenza Type B (PCR) M. pneumoniae (PCR) Not Detected Parainfluenza 1 (PCR) Not Detected Parainfluenza 2 (PCR) Not Detected Parainfluenza 3 (PCR) Not Detected Parainfluenza 4 (PCR) Not Detected RSV (PCR) Not Detected RSV RNA Qual (PCR) Entero/Rhino (PCR) Not Detected SARS-CoV-2 RNA (RT-PCR) Not Detected Assessment and Plan (1) COPD exacerbation: Status: Acute (2) Acute and chronic respiratory failure with hypoxia: Status: Acute Plan 54-year-old Qatari-speaking female with a past medical history significant for COPD on O2 2-3 L via NC, chronic systolic and diastolic congestive heart failure and pleural effusions (requiring thoracentesis in the past), diabetes on insulin, chronic anemia requiring blood transfusion in the past, essential hypertension, orthostatic hypotension and hyperlipidemia, who presented to the ED due to shortness of breath, VICENTE, bilateral lower extremity edema and pain, as well as dizziness. Acute on chronic respiratory failure due to acute on chronic congestive heart failure and mild COPD exacerbation - WBC 7.3, vital signs stable aside from increased O2 requirement, lactic acid normal, no sepsis, no acute infection - chest x-ray with moderate bilateral pleural effusions. bilateral infiltrates, edema and/or atelectasis. Due to no cough or fever, pneumonia unlikely - COVID/flu/RSV negative - BNP elevated at 600 - mild respiratory acidosis on VBG - given lasix 40mg IV in ED, no urine output yet, bladder scan now - dueonebs Q4H while awake,continue solumedrol 40mg IV BID dizziness thought to be likely secondary to hypoxia no new symptoms DILLON on CKD - Cr 2.37 - UA not yet done - bladder scan as above - fluids deferred due to CHF exacerbation - avoid nephrotoxins when possible - monitor BMP Insulin dependent DM - diabetic diet - lantus 5U tonight due to lack of eating today, resume normal 10U dose when appropriate - sliding scale insulin chronic anemia - H+H stable, no need for blood transfusion at this time - continue iron - monitor CBC HTN - resume amlodipine when appropriate HLD - no home meds VTE prophy: pneumonboots due to anemia ongoing need acute on chronic respiratory failure secondary to CHF and COPD exacerbation and complicated by recurrent pleural effusions- for IV diuresis and monitoring. Quality Stroke Does the patient have a stroke diagnosis?: No VTE Prior VTE?: No VTE Risk Level:: Medical - moderate - high VTE Device Contraindication: N/A - Device Ordered VTE Drug Contraindication: Treatment Not Indicated
--- NOTE | 2024-07-08 19:58 | PM.CNNEP ---
History of Present Illness Reason for Consult Consult date: 07/08/24 Chief Complaint Chief complaint: hypxia-medical telemetry History of Present Illness Narrative: 54-year-old German-speaking female with chronic systolic and diastolic congestive heart failure and pleural effusions (requiring thoracentesis in the past), diabetes on insulin presented to the ER due to shortness of breath, VICENTE, bilateral lower extremity edema as well as dizziness. She denies headache, fever, chills, nausea, vomting, abd pain, cough, rhinorrhea, or congestion. She was also found to have DILLON and was admitted for further management. Nephrology has been consulted for assist in her clinical management Review of Systems Review of Systems Yes all other systems are reviewed and are negative PMFSH Past Medical History Medical History Chest pain Congestive heart failure Bilateral pleural effusion Anemia CHF (congestive heart failure) Urinary tract infection Hypertension Symptomatic anemia Brain lesion Iron deficiency anemia HLD (hyperlipidemia) Depression Type 2 diabetes mellitus Family History Family History Other Hypertension Social History Social History Household Members: Children Household Members Other:: Daughter Housing: Apartment Do you presently have visiting nurse or other home services: Yes Unable to assess alcohol history related to: Unable to respond Alcohol intake: former Patient Tobacco Use Status: Never used Tobacco e-Cigarette/Vaping Use: Never Used Second Hand Smoke Exposure: No Advance Directives Date on File: 06/19/21 service: No Current occupational status: unemployed Meds Allergies Allergy/AdvReac Type Severity Reaction Status Date / Time shrimp Allergy Swelling Verified 07/07/24 16:52 Active Medications: Current Medications Acetaminophen (Acetaminophen 325 Mg Tablet) 975 mg PO Q6H PRN PRN Reason: Pain, Mild 1-3,fever,headache Albuterol/Ipratropium (Albuterol/Iprat 2.5/0.5mg 3 Ml Ampul.Neb) 3 ml INHALE RQ4H WHILE AWAKE JM Last Admin: 07/08/24 15:17 Dose: 3 ml Amlodipine Besylate (Amlodipine Besylate 10 Mg Tablet) 10 mg PO DAILY J[facility]; Protocol Last Admin: 07/08/24 09:13 Dose: 10 mg Aspirin (Aspirin Enteric Coated 81 Mg Tablet.) 81 mg PO DAILY [facility] Last Admin: 07/08/24 09:13 Dose: 81 mg Calcium Carbonate (Calcium Carbonate 750 Mg Tab.Chew) 750 mg PO Q4H PRN PRN Reason: Heartburn Dextrose (Dextrose 50 % 25 Gm/50 Ml Syringe) 25 gm IVPUSH Q15M PRN; Protocol PRN Reason: per Hypoglycemia Standing Ord. Ferrous Sulfate (Ferrous Sulfate 324 Mg Tablet.) 324 mg PO DAILY [facility] Last Admin: 07/08/24 09:14 Dose: 324 mg Furosemide (Furosemide 40 Mg/4 Ml Vial) 40 mg IVPUSH BID@0900,1800 [facility]; Protocol Last Admin: 07/08/24 17:04 Dose: 40 mg Gabapentin (Gabapentin 100 Mg Capsule) 100 mg PO BEDTIME [facility] Glucose (Glucose Gel 15 Gm Gel..Gram.) 15 gm PO Q15M PRN; Protocol PRN Reason: per Hypoglycemia Standing Ord. Insulin Glargine (Insulin Glargine,Hum.Rec.Anlog 100 Unit/Ml 10 Ml Vial) 5 unit SUBCUT BEDTIME [facility] Last Admin: 07/07/24 21:59 Dose: 5 unit Insulin Human Lispro (Insulin Lispro 100 Unit/Ml 3 Ml Vial) 0 unit SUBCUT QIDACHS [facility]; Protocol Last Admin: 07/08/24 17:04 Dose: 2 unit Lactulose (Lactulose 20 Gm/30 Ml Solution) 10 gm PO BID PRN PRN Reason: constipation Magnesium Hydroxide (Milk Of Magnesia 30 Ml Oral.Susp) 30 ml PO DAILY PRN PRN Reason: Constipation Melatonin (Melatonin 3 Mg Tablet) 6 mg PO BEDTIME PRN PRN Reason: Insomnia Methylprednisolone Sodium Succinate (Methylprednisolone Sod Succ 40 Mg/Ml Vial) 40 mg IVPUSH Q12H [facility] Last Admin: 07/08/24 09:14 Dose: 40 mg Omeprazole (Omeprazole 40 Mg Capsule.) 40 mg PO DAILY@0630 [facility] Ondansetron HCl (Ondansetron Hcl 4 Mg/2 Ml Vial) 4 mg IVPUSH Q8H PRN PRN Reason: Nausea and Vomiting Sodium Chloride (0.9 % Sodium Chloride Flush 3 Ml Syringe) 3 ml IVFLUSH QSHIFT [facility] Last Admin: 07/08/24 17:04 Dose: 3 ml Home Medications ?Medication ?Instructions ?Recorded ?Confirmed ?Last Taken ?Type aspirin 81 mg tablet,delayed 1 tab PO DAILY 07/21/22 07/07/24 07/07/24 History release ferrous sulfate 324 mg (65 mg 324 mg PO DAILY 04/07/24 07/07/24 07/07/24 History iron) tablet,delayed release omeprazole 40 mg capsule,delayed 40 mg PO DAILY@0630 04/07/24 07/07/24 07/07/24 History release gabapentin 100 mg capsule 100 mg PO BEDTIME 05/31/24 07/07/24 07/06/24 History furosemide 20 mg tablet 20 mg PO DAILY 07/07/24 07/07/24 07/07/24 History insulin glargine 100 unit/mL 8 unit subcut BEDTIME 07/07/24 07/07/24 Unknown History subcutaneous solution (Lantus U-100 Insulin) ondansetron HCl 4 mg tablet 4 - 8 mg PO Q8H PRN nausea/vomiting 07/07/24 07/07/24 Unknown History Physical Exam Vital Signs: Last Vital Signs Temp 97.6 F 07/08/24 15:02 Pulse 96 07/08/24 15:19 Resp 18 07/08/24 15:19 BP 165/72 H 07/08/24 15:02 Pulse Ox 96 07/08/24 15:02 O2 Del Method Room Air 07/08/24 15:02 O2 Flow Rate 3 07/08/24 11:35 BMI result Body Mass Index 25.7 Const General: no acute distress Orientation/consciousness: patient oriented x3 Eyes EOM: EOMs intact bilaterally Resp Auscultation: diminished lung sounds Cardio Rate: regular rate GI Palpation (GI): Soft to palpation Neuro General: patient oriented x3 Results Lab Results 07/08/24 04:52 07/08/24 04:52 Lab results: Chemistry 07/07/24 07/08/24 17:28 04:52 Sodium 139 138 Potassium 3.9 4.3 Carbon Dioxide 20 L 19 L BUN 29 H 29 H Creatinine 2.37 H 2.28 H Calcium 8.2 L D 8.9 D Hematology 07/07/24 07/08/24 17:28 04:52 WBC 7.3 6.6 Hgb 7.9 L 8.0 L Plt Count 152 L 160 Urinalysis 07/08/24 06:41 Urine Color Yellow Urine Appearance Clear Urine pH 5.5 Ur Specific [place] 1.010 Urine Protein 300 (3+) H Urine Glucose (UA) Negative Urine Ketones Negative Urine Blood Trace H Urine Nitrite Positive H Ur Leukocyte Esterase Negative Urine RBC 0-2 Urine WBC 0-5 Ur Squamous Epith Cells 0-2 Hyaline Casts 3-5 Assessment and Plan (1) Acute kidney injury superimposed on CKD: Status: Acute Plan DILLON due to reduced perfusion from CRS with resultant tubular injury UO good; Started on IV diuretics; No ACEI/ARB for now Daily weights; 2 Gram Na restriction;No indication for renal replacement Labs AM. Shall closely follow up Procedures Date of Service Date of Service: 07/08/24
[2024-07-08] MEDS: Gabapentin 100 MG CAPSULE PO (20:44)
[2024-07-08] MEDS: Insulin Glargine,Hum.rec.anlog 100 UNIT/ML 10 ML VIAL SUBCUT (20:44)
[2024-07-08 21:04] LABS: Glucose, Whole Blood 371 mg/dL (60-115)
[2024-07-09] VITALS (10 sets, daily range): BP systolic 157–169; BP diastolic 71–79; PULSE 97–103; RESP 16–20; TEMP 36.2–37.1; O2SAT 93–100; BMI 25.7
[2024-07-09] MEDS: 0.9 % Sodium Chloride Flush 3 ML SYRINGE IVFLUSH ×4 (00:28→21:00)
[2024-07-09] MEDS: Omeprazole 40 MG CAPSULE.DR PO (05:51)
[2024-07-09 06:35] LABS: MANUAL DIFF FLAG NO
[2024-07-09 06:38] LABS: Basophils Percent Auto 0.1 % (0-2); Hematocrit 22.8 % (37.0-47.0); Hemoglobin 7.8 g/dl (12.0-16.0); Imm Gran Abs Auto 0.07 X10*3/uL (0.00-0.03); Imm Gran Pct Auto 0.7 % (0.0-0.4); Lymphocytes Absolute Auto 0.9 X10*3/uL (1.2-4.9); Lymphocytes Percent Auto 9.3 % (20-40); Mean Corpuscular HGB Conc 34.2 g/dl (31.0-35.0); Mean Corpuscular Hemoglobin 29.3 pg (27.0-33.0); Mean Corpuscular Volume 85.7 fL (80.0-98.0); Mean Platelet Volume 8.6 fL (9.4-12.3); Monocytes Absolute Auto 0.3 X10*3/uL (0.1-1.2); Monocytes Percent Auto 2.6 % (2-11); Neutrophils Absolute Auto 8.5 x10*3/uL (2.0-8.3); Neutrophils Percent Auto 87.3 % (45-73); Platelet Count 162 X10*3/uL (160-400); Red Blood Count 2.66 X10*6/uL (4.20-5.50); Red Cell Distribution Width 15.2 % (11.0-16.0); White Blood Count 9.7 X10*3/uL (4.8-10.8)
[2024-07-09 07:06] LABS: Anion Gap 11 (12-20); Blood Urea Nitrogen 36 mg/dL (9-16); Calcium 8.9 mg/dL (8.4-10.2); Carbon Dioxide 22 mmol/L (22-29); Chloride 107 mmol/L (96-108); Creatinine Clr Calc Pharmacy 22.4; Estimated Glomerular Filt Rate 19; Glucose Random 264 mg/dL (60-115); Potassium 4.8 mmol/L (3.3-5.1); Sodium 135 mmol/L (135-145)
[2024-07-09 07:18] LABS: Glucose, Whole Blood 217 mg/dL (60-115)
[2024-07-09] MEDS: Albuterol/Iprat 2.5/0.5MG 3 ML AMPUL.NEB INHALE ×4 (07:42→19:32)
[2024-07-09] MEDS: Furosemide 40 MG/4 ML VIAL IVPUSH ×2 (08:02→18:01)
[2024-07-09] MEDS: Insulin Lispro 100 UNIT/ML 3 ML VIAL SUBCUT ×4 (08:02→21:00)
[2024-07-09] MEDS: Ferrous Sulfate 324 MG TABLET.DR PO (08:02)
[2024-07-09] MEDS: amLODIPine Besylate 10 MG TABLET PO (08:02)
[2024-07-09] MEDS: Aspirin Enteric Coated 81 MG TABLET.DR PO (08:02)
[2024-07-09 11:22] LABS: Glucose, Whole Blood 247 mg/dL (60-115)
[2024-07-09] MEDS: methylPREDNISolone Sod Succ 40 MG/ML VIAL IVPUSH ×2 (11:46→20:59)
--- NOTE | 2024-07-09 13:28 | HO.PM.IMPN ---
Subjective Subjective Date of Service: 07/09/24 Interval History: sob Review of Systems sob seems similar denies any chest pain or cough Physical Exam Vital Signs: Vital Signs: Last Vital Signs Temp 97.1 F 07/09/24 11:11 Pulse 97 07/09/24 11:11 Resp 18 07/09/24 11:11 BP 169/74 H 07/09/24 11:11 Pulse Ox 100 07/09/24 11:11 O2 Del Method Nasal Cannula 07/09/24 11:11 O2 Flow Rate 3 07/09/24 11:11 BMI result Body Mass Index 25.7 Appearance: Alert.? Oriented X3. cvs: rrr, [id number]. res: air entry somewhat diminshed ,has wheezing abd: soft,,nt, bs present. ext pulses present , no cyanosis . neuro: axo3 , nonfocal. Objective Data Active Medications Acetaminophen (Acetaminophen 325 Mg Tablet) 975 mg PO Q6H PRN PRN Reason: Pain, Mild 1-3,fever,headache Albuterol/Ipratropium (Albuterol/Iprat 2.5/0.5mg 3 Ml Ampul.Neb) 3 ml INHALE RQ4H WHILE AWAKE [facility] Last Admin: 07/09/24 11:07 Dose: 3 ml Documented By: DK Amlodipine Besylate (Amlodipine Besylate 10 Mg Tablet) 10 mg PO DAILY [facility]; Protocol Last Admin: 07/09/24 08:02 Dose: 10 mg Documented By: DANNY Aspirin (Aspirin Enteric Coated 81 Mg Tablet.) 81 mg PO DAILY [facility] Last Admin: 07/09/24 08:02 Dose: 81 mg Documented By: DANNY Calcium Carbonate (Calcium Carbonate 750 Mg Tab.Chew) 750 mg PO Q4H PRN PRN Reason: Heartburn Dextrose (Dextrose 50 % 25 Gm/50 Ml Syringe) 25 gm IVPUSH Q15M PRN; Protocol PRN Reason: per Hypoglycemia Standing Ord. Ferrous Sulfate (Ferrous Sulfate 324 Mg Tablet.) 324 mg PO DAILY [facility] Last Admin: 07/09/24 08:02 Dose: 324 mg Documented By: DANNY Furosemide (Furosemide 40 Mg/4 Ml Vial) 40 mg IVPUSH BID@0900,1800 [facility]; Protocol Last Admin: 07/09/24 08:02 Dose: 40 mg Documented By: DANNY Gabapentin (Gabapentin 100 Mg Capsule) 100 mg PO BEDTIME [facility] Last Admin: 07/08/24 20:44 Dose: 100 mg Documented By: AYANNA Glucose (Glucose Gel 15 Gm Gel..Gram.) 15 gm PO Q15M PRN; Protocol PRN Reason: per Hypoglycemia Standing Ord. Insulin Glargine (Insulin Glargine,Hum.Rec.Anlog 100 Unit/Ml 10 Ml Vial) 5 unit SUBCUT BEDTIME [facility] Last Admin: 07/08/24 20:44 Dose: 5 unit Documented By: AYANNA Insulin Human Lispro (Insulin Lispro 100 Unit/Ml 3 Ml Vial) 0 unit SUBCUT QIDACHS [facility]; Protocol Last Admin: 07/09/24 11:46 Dose: 4 unit Documented By: DANNY Lactulose (Lactulose 20 Gm/30 Ml Solution) 10 gm PO BID PRN PRN Reason: constipation Magnesium Hydroxide (Milk Of Magnesia 30 Ml Oral.Susp) 30 ml PO DAILY PRN PRN Reason: Constipation Melatonin (Melatonin 3 Mg Tablet) 6 mg PO BEDTIME PRN PRN Reason: Insomnia Methylprednisolone Sodium Succinate (Methylprednisolone Sod Succ 40 Mg/Ml Vial) 40 mg IVPUSH Q12H [facility] Last Admin: 07/09/24 11:46 Dose: 40 mg Documented By: DANNY Omeprazole (Omeprazole 40 Mg Capsule.) 40 mg PO DAILY@0630 [facility] Last Admin: 07/09/24 05:51 Dose: 40 mg Documented By: SARAVANAN Ondansetron HCl (Ondansetron Hcl 4 Mg/2 Ml Vial) 4 mg IVPUSH Q8H PRN PRN Reason: Nausea and Vomiting Sodium Chloride (0.9 % Sodium Chloride Flush 3 Ml Syringe) 3 ml IVFLUSH QSHIFT [facility] Last Admin: 07/09/24 08:04 Dose: 3 ml Documented By: DANNY Labs 07/09/24 06:04 07/09/24 06:04 Labs: Laboratory Results - last 24 hr 07/08/24 07/08/24 07/08/24 11:15 15:11 20:59 MCV MCH MCHC RDW Plt Count MPV Immature Gran % (Auto) Neut % (Auto) Lymph % (Auto) [place] % (Auto) Eos % (Auto) Baso % (Auto) Lymph # (Auto) [place] # (Auto) Eos # (Auto) Baso # (Auto) Abs Immat Gran (auto) Absolute Neuts (auto) Absolute Nucleated RBC Nucleated RBC % (auto) Anion Gap Estim Creat Clear Calc Estimated GFR POC Glucose 290 H 371 H* Random Glucose Calcium Respiratory Panel Herrera See Note Adenovirus (Rapid PCR) Not Detected B.pert (TEM-PCR) Not Detected B.parapertussis DNA PCR Not Detected C. pneumoniae DNA (PCR) Not Detected Coronavirus OC43 (PCR) Not Detected Coronavirus HKU1 (PCR) Not Detected Coronavirus 229E (PCR) Not Detected Coronavirus NL63 (PCR) Not Detected Human Metapneumovir PCR Not Detected Influenza A (RT-PCR) Not Detected Influenza B (RT-PCR) Not Detected M. pneumoniae (PCR) Not Detected Parainfluenza 1 (PCR) Not Detected Parainfluenza 2 (PCR) Not Detected Parainfluenza 3 (PCR) Not Detected Parainfluenza 4 (PCR) Not Detected RSV (PCR) Not Detected Entero/Rhino (PCR) Not Detected SARS-CoV-2 RNA (RT-PCR) Not Detected 07/09/24 07/09/24 07/09/24 06:04 07:04 11:12 MCV 85.7 MCH 29.3 MCHC 34.2 RDW 15.2 Plt Count 162 MPV 8.6 L Immature Gran % (Auto) 0.7 H Neut % (Auto) 87.3 H Lymph % (Auto) 9.3 L [place] % (Auto) 2.6 Eos % (Auto) 0.0 Baso % (Auto) 0.1 Lymph # (Auto) 0.9 L [place] # (Auto) 0.3 Eos # (Auto) 0.0 Baso # (Auto) 0.0 Abs Immat Gran (auto) 0.07 H Absolute Neuts (auto) 8.5 H Absolute Nucleated RBC 0.000 Nucleated RBC % (auto) 0.0 Anion Gap 11 L Estim Creat Clear Calc 22.4 Estimated GFR 19 POC Glucose 217 H 247 H Random Glucose 264 H Calcium 8.9 Respiratory Panel Herrera Adenovirus (Rapid PCR) B.pert (TEM-PCR) B.parapertussis DNA PCR C. pneumoniae DNA (PCR) Coronavirus OC43 (PCR) Coronavirus HKU1 (PCR) Coronavirus 229E (PCR) Coronavirus NL63 (PCR) Human Metapneumovir PCR Influenza A (RT-PCR) Influenza B (RT-PCR) M. pneumoniae (PCR) Parainfluenza 1 (PCR) Parainfluenza 2 (PCR) Parainfluenza 3 (PCR) Parainfluenza 4 (PCR) RSV (PCR) Entero/Rhino (PCR) SARS-CoV-2 RNA (RT-PCR) Microbiology Microbiology Results: Microbiology 07/08/24 Unknown Urine Culture - Preliminary Urine clean catch - Clean Catch Midstream Culture in progress. Assessment and Plan (1) COPD exacerbation: Status: Acute Assessment and Plan: 54-year-old Korean-speaking female with a past medical history significant for COPD on O2 2-3 L via NC, chronic systolic and diastolic congestive heart failure and pleural effusions (requiring thoracentesis in the past), diabetes on insulin, chronic anemia requiring blood transfusion in the past, essential hypertension, orthostatic hypotension and hyperlipidemia, who presented to the ED due to shortness of breath, VICENTE, bilateral lower extremity edema and pain, as well as dizziness. Acute on chronic respiratory failure due to acute on chronic congestive heart failure and mild COPD exacerbation - WBC 7.3, vital signs stable aside from increased O2 requirement, lactic acid normal, no sepsis, no acute infection - chest x-ray with moderate bilateral pleural effusions. bilateral infiltrates, edema and/or atelectasis. Due to no cough or fever, pneumonia unlikely - COVID/flu/RSV negative - BNP elevated at 600 - mild respiratory acidosis on VBG - given lasix 40mg IV in ED, no urine output yet, bladder scan now - dueonebs Q4H while awake,continue solumedrol 40mg IV BID dizziness thought to be likely secondary to hypoxia no new symptoms DILLON on CKD - Cr 2.37 - UA not yet done - bladder scan as above - fluids deferred due to CHF exacerbation - avoid nephrotoxins when possible - monitor BMP Insulin dependent DM - diabetic diet - lantus 5U tonight due to lack of eating today, resume normal 10U dose when appropriate - sliding scale insulin chronic anemia - H+H stable, no need for blood transfusion at this time - continue iron - monitor CBC HTN - resume amlodipine when appropriate HLD - no home meds VTE prophy: pneumonboots due to anemia ongoing need acute on chronic respiratory failure secondary to CHF and COPD exacerbation and complicated by recurrent pleural effusions- for IV diuresis and monitoring. Quality Stroke Does the patient have a stroke diagnosis?: No VTE Prior VTE?: No VTE Risk Level:: Medical - moderate - high VTE Device Contraindication: N/A - Device Ordered VTE Drug Contraindication: Treatment Not Indicated
--- NOTE | 2024-07-09 13:29 | PM.PNNEP ---
Subjective Subjective Date of Service: 07/09/24 Interval history: Events noted. Marginal improvement in creatinine Physical Exam Vital Signs: Vital Signs: Last Vital Signs Temp 97.1 F 07/09/24 11:11 Pulse 97 07/09/24 11:11 Resp 18 07/09/24 11:11 BP 169/74 H 07/09/24 11:11 Pulse Ox 100 07/09/24 11:11 O2 Del Method Nasal Cannula 07/09/24 11:11 O2 Flow Rate 3 07/09/24 11:11 BMI result Body Mass Index 25.7 Const: General: no acute distress Orientation/consciousness: patient oriented x3 Eyes: EOM: EOMs intact bilaterally Resp: Auscultation: diminished lung sounds Cardio: Rate: regular rate GI: Palpation (GI): Soft to palpation Neuro: General: patient oriented x3 Objective Data Labs 07/09/24 06:04 07/09/24 06:04 Labs: Laboratory Results - last 24 hr 07/08/24 07/08/24 07/08/24 11:15 15:11 20:59 WBC RBC Hgb Hct MCV MCH MCHC RDW Plt Count MPV Immature Gran % (Auto) Neut % (Auto) Lymph % (Auto) [place] % (Auto) Eos % (Auto) Baso % (Auto) Lymph # (Auto) [place] # (Auto) Eos # (Auto) Baso # (Auto) Abs Immat Gran (auto) Absolute Neuts (auto) Absolute Nucleated RBC Nucleated RBC % (auto) Sodium Potassium Chloride Carbon Dioxide Anion Gap BUN Creatinine Estim Creat Clear Calc Estimated GFR POC Glucose 290 H 371 H* Random Glucose Calcium Respiratory Panel Herrera See Note Adenovirus (Rapid PCR) Not Detected B.pert (TEM-PCR) Not Detected B.parapertussis DNA PCR Not Detected C. pneumoniae DNA (PCR) Not Detected Coronavirus OC43 (PCR) Not Detected Coronavirus HKU1 (PCR) Not Detected Coronavirus 229E (PCR) Not Detected Coronavirus NL63 (PCR) Not Detected Human Metapneumovir PCR Not Detected Influenza A (RT-PCR) Not Detected Influenza B (RT-PCR) Not Detected M. pneumoniae (PCR) Not Detected Parainfluenza 1 (PCR) Not Detected Parainfluenza 2 (PCR) Not Detected Parainfluenza 3 (PCR) Not Detected Parainfluenza 4 (PCR) Not Detected RSV (PCR) Not Detected Entero/Rhino (PCR) Not Detected SARS-CoV-2 RNA (RT-PCR) Not Detected 07/09/24 07/09/24 07/09/24 06:04 07:04 11:12 WBC 9.7 RBC 2.66 L Hgb 7.8 L Hct 22.8 L MCV 85.7 MCH 29.3 MCHC 34.2 RDW 15.2 Plt Count 162 MPV 8.6 L Immature Gran % (Auto) 0.7 H Neut % (Auto) 87.3 H Lymph % (Auto) 9.3 L [place] % (Auto) 2.6 Eos % (Auto) 0.0 Baso % (Auto) 0.1 Lymph # (Auto) 0.9 L [place] # (Auto) 0.3 Eos # (Auto) 0.0 Baso # (Auto) 0.0 Abs Immat Gran (auto) 0.07 H Absolute Neuts (auto) 8.5 H Absolute Nucleated RBC 0.000 Nucleated RBC % (auto) 0.0 Sodium 135 Potassium 4.8 Chloride 107 Carbon Dioxide 22 Anion Gap 11 L BUN 36 H Creatinine 2.58 H Estim Creat Clear Calc 22.4 Estimated GFR 19 POC Glucose 217 H 247 H Random Glucose 264 H Calcium 8.9 Respiratory Panel Herrera Adenovirus (Rapid PCR) B.pert (TEM-PCR) B.parapertussis DNA PCR C. pneumoniae DNA (PCR) Coronavirus OC43 (PCR) Coronavirus HKU1 (PCR) Coronavirus 229E (PCR) Coronavirus NL63 (PCR) Human Metapneumovir PCR Influenza A (RT-PCR) Influenza B (RT-PCR) M. pneumoniae (PCR) Parainfluenza 1 (PCR) Parainfluenza 2 (PCR) Parainfluenza 3 (PCR) Parainfluenza 4 (PCR) RSV (PCR) Entero/Rhino (PCR) SARS-CoV-2 RNA (RT-PCR) Microbiology Microbiology Results: Microbiology 07/08/24 Unknown Urine clean catch - Clean Catch Midstream Urine Culture - Preliminary Culture in progress. Procedures Date of Service Date of Service: 07/09/24 Assessment & Plan Assessment and plan (1) Acute kidney injury superimposed on CKD: Status: Acute Plan DILLON due to reduced perfusion from CRS with resultant tubular injury UO good; Keep IV diuretics; No ACEI/ARB for now Daily weights; 2 Gram Na restriction; No indication for renal replacement as renal function has improved . Shall closely follow up Time Spent With Patient Time: Total time managing care of this patient today ____ minutes. Progress Note: Quality Stroke Does the patient have a stroke diagnosis?: No
[2024-07-09 15:24] LABS: Glucose, Whole Blood 254 mg/dL (60-115)
--- NOTE | 2024-07-09 16:30 | PM.CNPUL ---
History of Present Illness History of Present Illness Consult date: 07/09/24 Chief complaint: hypxia-medical telemetry Narrative: This is an inpatient pulmonary consultation. Patient is a 54-year-old female with a past medical history significant for COPD on O2 2-3 L via NC, chronic systolic and diastolic congestive heart failure and pleural effusions (requiring thoracentesis in the past), diabetes on insulin, chronic anemia requiring blood transfusion in the past, essential hypertension, orthostatic hypotension and hyperlipidemia, who presented to the ED due to shortness of breath, VICENTE, bilateral lower extremity edema and pain, as well as dizziness. She also reports malodorous urine but not frequency, urgency, or dysuria. She is unsure if she has been taking her lasix at home, she reports that her son gives her all of her medications. The patient did have a chest x-ray which I personally reviewed demonstrating perihilar congestion with bilateral pleural effusions. All consistent with congestive heart failure. Review of Systems Constitutional: Constitutional: Denies chills, Denies fatigue, Denies fever(s) and Denies headache(s) Eyes: Eyes: Denies change in vision and Denies photophobia ENT: Denies headache(s), Denies nasal congestion, Denies nasal discharge and Denies sore throat Comments: dizziness Cardiovascular: Cardiovascular: Denies chest pain, Denies syncope, Denies rapid heart rate, Reports leg edema, Reports lightheadedness, Reports dyspnea and Reports dyspnea on exertion Respiratory: Respiratory: Denies chest congestion, Denies cough, Reports dyspnea, Reports dyspnea on exertion and Reports wheezing Gastrointestinal: Gastrointestinal: Denies abdominal pain, Denies diarrhea, Denies nausea and Denies vomiting Genitourinary: Genitourinary: Denies hematuria, Denies dysuria and Denies urinary urgency Comments: malodorous urine Musculoskeletal: Musculoskeletal: Denies myalgias Integumentary/Breasts: Skin/Breast: Denies rash Neurologic: Denies confusion, Denies syncope and Denies headache(s) Psychiatric: Psychiatric: Denies confusion Endocrine: Endocrine: Denies fatigue Hematologic/Lymphatic: Hematologic/Lymphatic: Denies easy bleeding and Denies easy bruising Allergic/Immunologic: Allergic/Immunologic: Reports wheezing PMFSH Past Medical History Medical History (Updated 07/09/24 @ 16:33 by José Maldonado MD) Chest pain Congestive heart failure Bilateral pleural effusion Anemia CHF (congestive heart failure) Urinary tract infection Hypertension Symptomatic anemia Brain lesion Iron deficiency anemia HLD (hyperlipidemia) Depression Type 2 diabetes mellitus Family History Family History Other Hypertension Social History Social History Household Members: Children Household Members Other:: Daughter Housing: Apartment Do you presently have visiting nurse or other home services: Yes Unable to assess alcohol history related to: Unable to respond Alcohol intake: former Patient Tobacco Use Status: Never used Tobacco e-Cigarette/Vaping Use: Never Used Second Hand Smoke Exposure: No Advance Directives Date on File: 06/19/21 service: No Current occupational status: unemployed Meds Allergies Allergy/AdvReac Type Severity Reaction Status Date / Time shrimp Allergy Swelling Verified 07/07/24 16:52 Active Medications: Current Medications Acetaminophen (Acetaminophen 325 Mg Tablet) 975 mg PO Q6H PRN PRN Reason: Pain, Mild 1-3,fever,headache Albuterol/Ipratropium (Albuterol/Iprat 2.5/0.5mg 3 Ml Ampul.Neb) 3 ml INHALE RQ4H WHILE AWAKE [facility] Last Admin: 07/09/24 15:05 Dose: 3 ml Amlodipine Besylate (Amlodipine Besylate 10 Mg Tablet) 10 mg PO DAILY [facility]; Protocol Last Admin: 07/09/24 08:02 Dose: 10 mg Aspirin (Aspirin Enteric Coated 81 Mg Tablet.) 81 mg PO DAILY [facility] Last Admin: 07/09/24 08:02 Dose: 81 mg Calcium Carbonate (Calcium Carbonate 750 Mg Tab.Chew) 750 mg PO Q4H PRN PRN Reason: Heartburn Dextrose (Dextrose 50 % 25 Gm/50 Ml Syringe) 25 gm IVPUSH Q15M PRN; Protocol PRN Reason: per Hypoglycemia Standing Ord. Ferrous Sulfate (Ferrous Sulfate 324 Mg Tablet.) 324 mg PO DAILY [facility] Last Admin: 07/09/24 08:02 Dose: 324 mg Furosemide (Furosemide 40 Mg/4 Ml Vial) 40 mg IVPUSH BID@0900,1800 [facility]; Protocol Last Admin: 07/09/24 08:02 Dose: 40 mg Gabapentin (Gabapentin 100 Mg Capsule) 100 mg PO BEDTIME [facility] Last Admin: 07/08/24 20:44 Dose: 100 mg Glucose (Glucose Gel 15 Gm Gel..Gram.) 15 gm PO Q15M PRN; Protocol PRN Reason: per Hypoglycemia Standing Ord. Insulin Glargine (Insulin Glargine,Hum.Rec.Anlog 100 Unit/Ml 10 Ml Vial) 5 unit SUBCUT BEDTIME [facility] Last Admin: 07/08/24 20:44 Dose: 5 unit Insulin Human Lispro (Insulin Lispro 100 Unit/Ml 3 Ml Vial) 0 unit SUBCUT QIDACHS [facility]; Protocol Last Admin: 07/09/24 11:46 Dose: 4 unit Lactulose (Lactulose 20 Gm/30 Ml Solution) 10 gm PO BID PRN PRN Reason: constipation Magnesium Hydroxide (Milk Of Magnesia 30 Ml Oral.Susp) 30 ml PO DAILY PRN PRN Reason: Constipation Melatonin (Melatonin 3 Mg Tablet) 6 mg PO BEDTIME PRN PRN Reason: Insomnia Methylprednisolone Sodium Succinate (Methylprednisolone Sod Succ 40 Mg/Ml Vial) 40 mg IVPUSH Q12H [facility] Last Admin: 07/09/24 11:46 Dose: 40 mg Omeprazole (Omeprazole 40 Mg Capsule.Dr) 40 mg PO DAILY@629 [facility] Last Admin: 07/09/24 05:51 Dose: 40 mg Ondansetron HCl (Ondansetron Hcl 4 Mg/2 Ml Vial) 4 mg IVPUSH Q8H PRN PRN Reason: Nausea and Vomiting Sodium Chloride (0.9 % Sodium Chloride Flush 3 Ml Syringe) 3 ml IVFLUSH QSHIFT [facility] Last Admin: 07/09/24 08:04 Dose: 3 ml Home Medications ?Medication ?Instructions ?Recorded ?Confirmed ?Last Taken ?Type aspirin 81 mg tablet,delayed 1 tab PO DAILY 07/21/22 07/07/24 07/07/24 History release ferrous sulfate 324 mg (65 mg 324 mg PO DAILY 04/07/24 07/07/24 07/07/24 History iron) tablet,delayed release omeprazole 40 mg capsule,delayed 40 mg PO DAILY@62904/07/24 07/07/24 07/07/24 History release gabapentin 100 mg capsule 100 mg PO BEDTIME 05/31/24 07/07/24 07/06/24 History furosemide 20 mg tablet 20 mg PO DAILY 07/07/24 07/07/24 07/07/24 History insulin glargine 100 unit/mL 8 unit subcut BEDTIME 07/07/24 07/07/24 Unknown History subcutaneous solution (Lantus U-100 Insulin) ondansetron HCl 4 mg tablet 4 - 8 mg PO Q8H PRN nausea/vomiting 07/07/24 07/07/24 Unknown History Physical Exam Vital Signs: Vital Signs: Last Vital Signs Temp 98.3 F 07/09/24 15:07 Pulse 101 H 07/09/24 15:07 Resp 18 07/09/24 15:07 BP 165/73 H 07/09/24 15:07 Pulse Ox 96 07/09/24 15:07 O2 Del Method Nasal Cannula 07/09/24 15:07 O2 Flow Rate 3 07/09/24 15:07 BMI result Body Mass Index 25.7 Const: General: No confusion Orientation/consciousness: No confusion Eyes: EOM: EOMs intact bilaterally Direct Ophthalmoscopy: No photophobia Chest: Chest palpation & inspection: normal inspection of the chest Resp: Effort & Inspection: normal respiratory effort and prolonged expiratory phase Auscultation: diminished lung sounds Cardio: Rate: regular rate GI: Palpation (GI): Soft to palpation Neuro: General: No confusion Results Laboratory Findings 07/09/24 06:04 07/09/24 06:04 Abnormal lab findings: Abnormal Labs 07/07/24 07/07/24 07/07/24 17:28 17:37 21:49 RBC 2.78 L Hgb 7.9 L Hct 24.3 L Plt Count 152 L MPV 8.3 L Immature Gran % (Auto) Neut % (Auto) Lymph % (Auto) [place] % (Auto) Lymph # (Auto) [place] # (Auto) Abs Immat Gran (auto) Absolute Neuts (auto) VBG pH 7.30 L Chloride 112 H Carbon Dioxide 20 L Anion Gap 11 L BUN 29 H Creatinine 2.37 H POC Glucose 128 H Random Glucose 161 H Calcium 8.2 L D Troponin I High Sens 17.7 H B-Natriuretic Peptide 600 H Albumin 3.1 L Urine Protein Urine Blood Urine Nitrite 07/08/24 07/08/24 07/08/24 04:52 06:41 07:15 RBC 2.77 L Hgb 8.0 L Hct 23.8 L Plt Count MPV 9.2 L Immature Gran % (Auto) 0.5 H Neut % (Auto) 87.2 H Lymph % (Auto) 11.4 L [place] % (Auto) 0.6 L Lymph # (Auto) 0.8 L [place] # (Auto) 0.0 L Abs Immat Gran (auto) Absolute Neuts (auto) VBG pH Chloride 111 H Carbon Dioxide 19 L Anion Gap BUN 29 H Creatinine 2.28 H POC Glucose 169 H Random Glucose 179 H Calcium Troponin I High Sens B-Natriuretic Peptide Albumin Urine Protein 300 (3+) H Urine Blood Trace H Urine Nitrite Positive H 07/08/24 07/08/24 07/08/24 11:34 15:11 20:59 RBC Hgb Hct Plt Count MPV Immature Gran % (Auto) Neut % (Auto) Lymph % (Auto) [place] % (Auto) Lymph # (Auto) [place] # (Auto) Abs Immat Gran (auto) Absolute Neuts (auto) VBG pH Chloride Carbon Dioxide Anion Gap BUN Creatinine POC Glucose 253 H 290 H 371 H* Random Glucose Calcium Troponin I High Sens B-Natriuretic Peptide Albumin Urine Protein Urine Blood Urine Nitrite 07/09/24 07/09/24 07/09/24 06:04 07:04 11:12 RBC 2.66 L Hgb 7.8 L Hct 22.8 L Plt Count MPV 8.6 L Immature Gran % (Auto) 0.7 H Neut % (Auto) 87.3 H Lymph % (Auto) 9.3 L [place] % (Auto) Lymph # (Auto) 0.9 L [place] # (Auto) Abs Immat Gran (auto) 0.07 H Absolute Neuts (auto) 8.5 H VBG pH Chloride Carbon Dioxide Anion Gap 11 L BUN 36 H Creatinine 2.58 H POC Glucose 217 H 247 H Random Glucose 264 H Calcium Troponin I High Sens B-Natriuretic Peptide Albumin Urine Protein Urine Blood Urine Nitrite 07/09/24 15:08 RBC Hgb Hct Plt Count MPV Immature Gran % (Auto) Neut % (Auto) Lymph % (Auto) [place] % (Auto) Lymph # (Auto) [place] # (Auto) Abs Immat Gran (auto) Absolute Neuts (auto) VBG pH Chloride Carbon Dioxide Anion Gap BUN Creatinine POC Glucose 254 H Random Glucose Calcium Troponin I High Sens B-Natriuretic Peptide Albumin Urine Protein Urine Blood Urine Nitrite Microbiology: Microbiology 07/08/24 Unknown Urine clean catch - Clean Catch Midstream Urine Culture - Preliminary Culture in progress. Assessment and Plan (1) COPD exacerbation: Status: Acute (2) Acute and chronic respiratory failure with hypoxia: Status: Acute (3) Acute exacerbation of CHF (congestive heart failure): Qualifiers: Heart failure type: combined systolic and diastolic Qualified Code(s): I50.43 - Acute on chronic combined systolic (congestive) and diastolic (congestive) heart failure Status: Acute Plan Continue oxygen supplementation to maintain a pulse ox above 90% Diuresis as tolerated Serial chest x-rays. Will hold off on thoracentesis right now since it appears to be all congestive heart failure related. Her previous thoracentesis also consistent with a transudative process. Likely difficult because of her renal insufficiency. Procedures Date of Service Date of Service: 07/09/24
[2024-07-09 20:20] LABS: Glucose, Whole Blood 386 mg/dL (60-115)
[2024-07-09] MEDS: Gabapentin 100 MG CAPSULE PO (20:59)
[2024-07-09] MEDS: Insulin Glargine,Hum.rec.anlog 100 UNIT/ML 10 ML VIAL SUBCUT (21:00)
[2024-07-10] VITALS (9 sets, daily range): BP systolic 146–157; BP diastolic 65–75; PULSE 95–106; RESP 18–20; TEMP 36.3–37.2; O2SAT 89–97
[2024-07-10] MEDS: Omeprazole 40 MG CAPSULE.DR PO (06:05)
[2024-07-10 07:27] LABS: MANUAL DIFF FLAG NO
[2024-07-10] MEDS: Furosemide 40 MG/4 ML VIAL IVPUSH (07:35)
[2024-07-10] MEDS: Aspirin Enteric Coated 81 MG TABLET.DR PO (07:35)
[2024-07-10] MEDS: Insulin Lispro 100 UNIT/ML 3 ML VIAL SUBCUT ×4 (07:35→21:27)
[2024-07-10] MEDS: Ferrous Sulfate 324 MG TABLET.DR PO (07:35)
[2024-07-10 07:36] LABS: Glucose, Whole Blood 177 mg/dL (60-115)
[2024-07-10] MEDS: amLODIPine Besylate 10 MG TABLET PO (07:36)
[2024-07-10 07:51] LABS: Eosinophils Percent Auto 0.1 % (0-4); Hematocrit 22.3 % (37.0-47.0); Hemoglobin 7.6 g/dl (12.0-16.0); Imm Gran Abs Auto 0.05 X10*3/uL (0.00-0.03); Imm Gran Pct Auto 0.5 % (0.0-0.4); Lymphocytes Absolute Auto 1.9 X10*3/uL (1.2-4.9); Lymphocytes Percent Auto 17.9 % (20-40); Mean Corpuscular HGB Conc 34.1 g/dl (31.0-35.0); Mean Corpuscular Hemoglobin 29.5 pg (27.0-33.0); Mean Corpuscular Volume 86.4 fL (80.0-98.0); Mean Platelet Volume 9.6 fL (9.4-12.3); Monocytes Absolute Auto 0.7 X10*3/uL (0.1-1.2); Monocytes Percent Auto 6.4 % (2-11); Neutrophils Absolute Auto 7.8 x10*3/uL (2.0-8.3); Neutrophils Percent Auto 75.1 % (45-73); Platelet Count 177 X10*3/uL (160-400); Red Blood Count 2.58 X10*6/uL (4.20-5.50); Red Cell Distribution Width 15.7 % (11.0-16.0); White Blood Count 10.4 X10*3/uL (4.8-10.8)
[2024-07-10 08:05] LABS: Anion Gap 12 (12-20); Blood Urea Nitrogen 50 mg/dL (9-16); Calcium 8.6 mg/dL (8.4-10.2); Carbon Dioxide 23 mmol/L (22-29); Chloride 107 mmol/L (96-108); Creatinine Clr Calc Pharmacy 19.1; Estimated Glomerular Filt Rate 16; Glucose Random 174 mg/dL (60-115); Potassium 4.9 mmol/L (3.3-5.1); Sodium 137 mmol/L (135-145)
[2024-07-10] MEDS: Albuterol/Iprat 2.5/0.5MG 3 ML AMPUL.NEB INHALE ×3 (08:08→22:10)
[2024-07-10] MEDS: 0.9 % Sodium Chloride Flush 3 ML SYRINGE IVFLUSH ×3 (09:44→21:28)
--- NOTE | 2024-07-10 10:33 | MHC.CM.PN ---
Per ROUNDS discussion, Patient is not yet medically cleared for dc (worsening Kidney Function); home/resume services is the goal and CM will continue to follow.
[2024-07-10] MEDS: methylPREDNISolone Sod Succ 40 MG/ML VIAL IVPUSH (10:45)
[2024-07-10 11:15] LABS: Glucose, Whole Blood 178 mg/dL (60-115)
--- NOTE | 2024-07-10 14:46 | PM.PNNEP ---
Subjective Subjective Date of Service: 07/10/24 Interval history: Events noted. All recent data reviewed Physical Exam Vital Signs: Vital Signs: Last Vital Signs Temp 98.9 F 07/10/24 12:00 Pulse 100 07/10/24 12:00 Resp 20 07/10/24 12:00 BP 146/66 H 07/10/24 12:00 Pulse Ox 91 L 07/10/24 12:00 O2 Del Method Nasal Cannula 07/10/24 12:00 O2 Flow Rate 3 07/10/24 12:00 BMI result Body Mass Index 25.7 Const: General: no acute distress Eyes: EOM: EOMs intact bilaterally Neck: Neck: Yes supple Resp: Auscultation: diminished lung sounds Cardio: Rate: regular rate GI: Palpation (GI): Soft to palpation Neuro: General: moves all extremities Objective Data Labs 07/10/24 07:03 07/10/24 07:03 Labs: Laboratory Results - last 24 hr 07/09/24 07/09/24 07/10/24 15:08 20:12 07:03 WBC 10.4 RBC 2.58 L Hgb 7.6 L Hct 22.3 L MCV 86.4 MCH 29.5 MCHC 34.1 RDW 15.7 Plt Count 177 MPV 9.6 Immature Gran % (Auto) 0.5 H Neut % (Auto) 75.1 H Lymph % (Auto) 17.9 L [place] % (Auto) 6.4 Eos % (Auto) 0.1 Baso % (Auto) 0.0 Lymph # (Auto) 1.9 [place] # (Auto) 0.7 Eos # (Auto) 0.0 Baso # (Auto) 0.0 Abs Immat Gran (auto) 0.05 H Absolute Neuts (auto) 7.8 Absolute Nucleated RBC 0.000 Nucleated RBC % (auto) 0.0 Sodium 137 Potassium 4.9 Chloride 107 Carbon Dioxide 23 Anion Gap 12 BUN 50 H Creatinine 3.03 H Estim Creat Clear Calc 19.1 Estimated GFR 16 POC Glucose 254 H 386 H* Random Glucose 174 H Calcium 8.6 07/10/24 07/10/24 07:22 11:11 WBC RBC Hgb Hct MCV MCH MCHC RDW Plt Count MPV Immature Gran % (Auto) Neut % (Auto) Lymph % (Auto) [place] % (Auto) Eos % (Auto) Baso % (Auto) Lymph # (Auto) [place] # (Auto) Eos # (Auto) Baso # (Auto) Abs Immat Gran (auto) Absolute Neuts (auto) Absolute Nucleated RBC Nucleated RBC % (auto) Sodium Potassium Chloride Carbon Dioxide Anion Gap BUN Creatinine Estim Creat Clear Calc Estimated GFR POC Glucose 177 H 178 H Random Glucose Calcium Microbiology Microbiology Results: Microbiology 07/08/24 Unknown Urine clean catch - Clean Catch Midstream Urine Culture - Final Procedures Date of Service Date of Service: 07/10/24 Assessment & Plan Assessment and plan (1) Acute kidney injury superimposed on CKD: Status: Acute Plan DILLON due to reduced perfusion with resultant tubular injury UO fair; Hold diuretics; No ACEI/ARB for now Daily weights; 2 Gram Na restriction;No indication for renal replacement C/W rest of current supportive care; Labs AM. Shall closely follow up Progress Note: Quality Stroke Does the patient have a stroke diagnosis?: No
--- NOTE | 2024-07-10 14:50 | HO.PM.IMPN ---
Subjective Subjective Date of Service: 07/10/24 Interval History: copd ,chf Review of Systems sob seems improving denies any chest pain Physical Exam Vital Signs: Vital Signs: Last Vital Signs Temp 98.9 F 07/10/24 12:00 Pulse 100 07/10/24 12:00 Resp 20 07/10/24 12:00 BP 146/66 H 07/10/24 12:00 Pulse Ox 91 L 07/10/24 12:00 O2 Del Method Nasal Cannula 07/10/24 12:00 O2 Flow Rate 3 07/10/24 12:00 BMI result Body Mass Index 25.7 Appearance: Alert.? Oriented X3. cvs: [id number], [id number]. res: air entry improving , no rales abd: soft,,nt, bs present. ext pulses present , no cyanosis . neuro: axo3 , nonfocal. Objective Data Active Medications Acetaminophen (Acetaminophen 325 Mg Tablet) 975 mg PO Q6H PRN PRN Reason: Pain, Mild 1-3,fever,headache Albuterol/Ipratropium (Albuterol/Iprat 2.5/0.5mg 3 Ml Ampul.Neb) 3 ml INHALE RQ4H WHILE AWAKE [facility] Last Admin: 07/10/24 11:30 Dose: Not Given Documented By: JEFFERY Non-Admin Reason: Patient Asleep Amlodipine Besylate (Amlodipine Besylate 10 Mg Tablet) 10 mg PO DAILY [facility]; Protocol Last Admin: 07/10/24 07:36 Dose: 10 mg Documented By: DANNY Aspirin (Aspirin Enteric Coated 81 Mg Tablet.) 81 mg PO DAILY [facility] Last Admin: 07/10/24 07:35 Dose: 81 mg Documented By: DANNY Calcium Carbonate (Calcium Carbonate 750 Mg Tab.Chew) 750 mg PO Q4H PRN PRN Reason: Heartburn Dextrose (Dextrose 50 % 25 Gm/50 Ml Syringe) 25 gm IVPUSH Q15M PRN; Protocol PRN Reason: per Hypoglycemia Standing Ord. Ferrous Sulfate (Ferrous Sulfate 324 Mg Tablet.) 324 mg PO DAILY [facility] Last Admin: 07/10/24 07:35 Dose: 324 mg Documented By: DANNY Gabapentin (Gabapentin 100 Mg Capsule) 100 mg PO BEDTIME [facility] Last Admin: 07/09/24 20:59 Dose: 100 mg Documented By: CAMI Glucose (Glucose Gel 15 Gm Gel..Gram.) 15 gm PO Q15M PRN; Protocol PRN Reason: per Hypoglycemia Standing Ord. Insulin Glargine (Insulin Glargine,Hum.Rec.Anlog 100 Unit/Ml 10 Ml Vial) 5 unit SUBCUT BEDTIME [facility] Last Admin: 07/09/24 21:00 Dose: 5 unit Documented By: CAMI Insulin Human Lispro (Insulin Lispro 100 Unit/Ml 3 Ml Vial) 0 unit SUBCUT QIDACHS [facility]; Protocol Last Admin: 07/10/24 11:39 Dose: 2 unit Documented By: DANNY Lactulose (Lactulose 20 Gm/30 Ml Solution) 10 gm PO BID PRN PRN Reason: constipation Magnesium Hydroxide (Milk Of Magnesia 30 Ml Oral.Susp) 30 ml PO DAILY PRN PRN Reason: Constipation Melatonin (Melatonin 3 Mg Tablet) 6 mg PO BEDTIME PRN PRN Reason: Insomnia Methylprednisolone Sodium Succinate (Methylprednisolone Sod Succ 40 Mg/Ml Vial) 40 mg IVPUSH Q12H [facility] Last Admin: 07/10/24 10:45 Dose: 40 mg Documented By: LUDY Omeprazole (Omeprazole 40 Mg Capsule.) 40 mg PO DAILY@0630 [facility] Last Admin: 07/10/24 06:05 Dose: 40 mg Documented By: CAMI Ondansetron HCl (Ondansetron Hcl 4 Mg/2 Ml Vial) 4 mg IVPUSH Q8H PRN PRN Reason: Nausea and Vomiting Sodium Chloride (0.9 % Sodium Chloride Flush 3 Ml Syringe) 3 ml IVFLUSH QSHIFT [facility] Last Admin: 07/10/24 09:44 Dose: 3 ml Documented By: DANNY Labs 07/10/24 07:03 07/10/24 07:03 Labs: Laboratory Results - last 24 hr 07/09/24 07/09/24 07/10/24 15:08 20:12 07:03 MCV 86.4 MCH 29.5 MCHC 34.1 RDW 15.7 Plt Count 177 MPV 9.6 Immature Gran % (Auto) 0.5 H Neut % (Auto) 75.1 H Lymph % (Auto) 17.9 L [place] % (Auto) 6.4 Eos % (Auto) 0.1 Baso % (Auto) 0.0 Lymph # (Auto) 1.9 [place] # (Auto) 0.7 Eos # (Auto) 0.0 Baso # (Auto) 0.0 Abs Immat Gran (auto) 0.05 H Absolute Neuts (auto) 7.8 Absolute Nucleated RBC 0.000 Nucleated RBC % (auto) 0.0 Anion Gap 12 Estim Creat Clear Calc 19.1 Estimated GFR 16 POC Glucose 254 H 386 H* Random Glucose 174 H Calcium 8.6 07/10/24 07/10/24 07:22 11:11 MCV MCH MCHC RDW Plt Count MPV Immature Gran % (Auto) Neut % (Auto) Lymph % (Auto) [place] % (Auto) Eos % (Auto) Baso % (Auto) Lymph # (Auto) [place] # (Auto) Eos # (Auto) Baso # (Auto) Abs Immat Gran (auto) Absolute Neuts (auto) Absolute Nucleated RBC Nucleated RBC % (auto) Anion Gap Estim Creat Clear Calc Estimated GFR POC Glucose 177 H 178 H Random Glucose Calcium Microbiology Microbiology Results: Microbiology 07/08/24 Unknown Urine Culture - Final Urine clean catch - Clean Catch Midstream Assessment and Plan (1) COPD exacerbation: Status: Acute Plan 54-year-old Marshallese-speaking female with a past medical history significant for COPD on O2 2-3 L via NC, chronic systolic and diastolic congestive heart failure and pleural effusions (requiring thoracentesis in the past), diabetes on insulin, chronic anemia requiring blood transfusion in the past, essential hypertension, orthostatic hypotension and hyperlipidemia, who presented to the ED due to shortness of breath, VICENTE, bilateral lower extremity edema and pain, as well as dizziness. Acute on chronic respiratory failure due to acute on chronic congestive heart failure and mild COPD exacerbation - WBC 7.3, vital signs stable aside from increased O2 requirement, lactic acid normal, no sepsis, no acute infection - chest x-ray with moderate bilateral pleural effusions. bilateral infiltrates, edema and/or atelectasis. Due to no cough or fever, pneumonia unlikely - COVID/flu/RSV negative i/o neg 2.6 liter - BNP elevated at 600 - dueonebs Q4H while awake,switch to prednisone , hold lasix due to dillon. goal for sats 90% since patient has COPD. dizziness thought to be likely secondary to hypoxia no new symptoms IDLLON on CKD - Cr 3 - UA -has proteinuria ,no pyuria ,trace bacteria no symptoms avoid nephrotoxins when possible - monitor BMP Insulin dependent DM fs with sliding scale. chronic anemia - H+H stable, no need for blood transfusion at this time - continue iron - monitor CBC HTN - resume amlodipine when appropriate HLD - no home meds VTE prophy: pneumonboots due to anemia ongoing need acute on chronic respiratory failure secondary to dillon with CHF and COPD exacerbation and complicated by recurrent pleural effusions- monitoring renal function, respiratory status, electrolytes. Quality Stroke Does the patient have a stroke diagnosis?: No VTE Prior VTE?: No VTE Risk Level:: Medical - moderate - high VTE Device Contraindication: N/A - Device Ordered VTE Drug Contraindication: Treatment Not Indicated
[2024-07-10 16:09] LABS: Glucose, Whole Blood 324 mg/dL (60-115)
[2024-07-10 20:41] LABS: Glucose, Whole Blood 386 mg/dL (60-115)
[2024-07-10] MEDS: Insulin Glargine,Hum.rec.anlog 100 UNIT/ML 10 ML VIAL SUBCUT (21:27)
[2024-07-10] MEDS: Gabapentin 100 MG CAPSULE PO (21:27)
[2024-07-11] VITALS (11 sets, daily range): BP systolic 146–160; BP diastolic 69–77; PULSE 90–102; RESP 16–20; TEMP 36.8–37.3; O2SAT 90–100; BMI 24.4
[2024-07-11 01:06] LABS: Glucose, Whole Blood 290 mg/dL (60-115)
[2024-07-11] MEDS: Omeprazole 40 MG CAPSULE.DR PO (05:48)
[2024-07-11] MEDS: Albuterol/Iprat 2.5/0.5MG 3 ML AMPUL.NEB INHALE ×4 (07:52→19:15)
[2024-07-11 08:02] LABS: Glucose, Whole Blood 163 mg/dL (60-115)
[2024-07-11 08:57] LABS: Hematocrit 23.9 % (37.0-47.0)
[2024-07-11] MEDS: Aspirin Enteric Coated 81 MG TABLET.DR PO (09:12)
[2024-07-11] MEDS: Ferrous Sulfate 324 MG TABLET.DR PO (09:12)
[2024-07-11] MEDS: predniSONE 20 MG TABLET 40 MG PO (09:13)
[2024-07-11] MEDS: Insulin Lispro 100 UNIT/ML 3 ML VIAL SUBCUT ×4 (09:13→21:47)
[2024-07-11] MEDS: amLODIPine Besylate 10 MG TABLET PO (09:13)
[2024-07-11] MEDS: 0.9 % Sodium Chloride Flush 3 ML SYRINGE IVFLUSH ×3 (09:13→21:48)
[2024-07-11 09:15] LABS: Anion Gap 14 (12-20); Blood Urea Nitrogen 64 mg/dL (9-16); Calcium 8.6 mg/dL (8.4-10.2); Carbon Dioxide 22 mmol/L (22-29); Chloride 105 mmol/L (96-108); Creatinine Clr Calc Pharmacy 18.2; Estimated Glomerular Filt Rate 17; Glucose Random 164 mg/dL (60-115); Potassium 4.5 mmol/L (3.3-5.1); Sodium 136 mmol/L (135-145)
[2024-07-11 11:16] LABS: Glucose, Whole Blood 194 mg/dL (60-115)
--- NOTE | 2024-07-11 11:56 | HO.PM.IMPN ---
Subjective Subjective Date of Service: 07/11/24 Interval History: copd ,chf Review of Systems sob seems improvin renal function similar to yesterday Physical Exam Vital Signs: Vital Signs: Last Vital Signs Temp 98.5 F 07/11/24 08:00 Pulse 94 07/11/24 11:53 Resp 18 07/11/24 11:53 BP 160/77 H 07/11/24 08:00 Pulse Ox 91 L 07/11/24 08:00 O2 Del Method Room Air 07/11/24 08:00 O2 Flow Rate 1.5 07/11/24 03:20 BMI result Body Mass Index 24.4 Appearance: Alert.? Oriented X3. cvs: rrr, [id number]. res: air entry improving , no rales abd: soft,,nt, bs present. ext pulses present , no cyanosis . neuro: axo3 , nonfocal. Objective Data Active Medications Acetaminophen (Acetaminophen 325 Mg Tablet) 975 mg PO Q6H PRN PRN Reason: Pain, Mild 1-3,fever,headache Albuterol/Ipratropium (Albuterol/Iprat 2.5/0.5mg 3 Ml Ampul.Neb) 3 ml INHALE RQ4H WHILE AWAKE [facility] Last Admin: 07/11/24 11:52 Dose: 3 ml Documented By: LOIS Amlodipine Besylate (Amlodipine Besylate 10 Mg Tablet) 10 mg PO DAILY [facility]; Protocol Last Admin: 07/11/24 09:13 Dose: 10 mg Documented By: TAHIR Aspirin (Aspirin Enteric Coated 81 Mg Tablet.) 81 mg PO DAILY [facility] Last Admin: 07/11/24 09:12 Dose: 81 mg Documented By: TAHIR Calcium Carbonate (Calcium Carbonate 750 Mg Tab.Chew) 750 mg PO Q4H PRN PRN Reason: Heartburn Dextrose (Dextrose 50 % 25 Gm/50 Ml Syringe) 25 gm IVPUSH Q15M PRN; Protocol PRN Reason: per Hypoglycemia Standing Ord. Ferrous Sulfate (Ferrous Sulfate 324 Mg Tablet.) 324 mg PO DAILY [facility] Last Admin: 07/11/24 09:12 Dose: 324 mg Documented By: TAHIR Gabapentin (Gabapentin 100 Mg Capsule) 100 mg PO BEDTIME [facility] Last Admin: 07/10/24 21:27 Dose: 100 mg Documented By: JUSTIN Glucose (Glucose Gel 15 Gm Gel..Gram.) 15 gm PO Q15M PRN; Protocol PRN Reason: per Hypoglycemia Standing Ord. Insulin Glargine (Insulin Glargine,Hum.Rec.Anlog 100 Unit/Ml 10 Ml Vial) 5 unit SUBCUT BEDTIME [facility] Last Admin: 07/10/24 21:27 Dose: 5 unit Documented By: JUSTIN Insulin Human Lispro (Insulin Lispro 100 Unit/Ml 3 Ml Vial) 0 unit SUBCUT QIDACHS [facility]; Protocol Last Admin: 07/11/24 11:50 Dose: 2 unit Documented By: TAHIR Lactulose (Lactulose 20 Gm/30 Ml Solution) 10 gm PO BID PRN PRN Reason: constipation Magnesium Hydroxide (Milk Of Magnesia 30 Ml Oral.Susp) 30 ml PO DAILY PRN PRN Reason: Constipation Melatonin (Melatonin 3 Mg Tablet) 6 mg PO BEDTIME PRN PRN Reason: Insomnia Omeprazole (Omeprazole 40 Mg Capsule.Dr) 40 mg PO DAILY@0630 [facility] Last Admin: 07/11/24 05:48 Dose: 40 mg Documented By: JUSTIN Ondansetron HCl (Ondansetron Hcl 4 Mg/2 Ml Vial) 4 mg IVPUSH Q8H PRN PRN Reason: Nausea and Vomiting Prednisone (Prednisone 20 Mg Tablet) 40 mg PO DAILY [facility] Last Admin: 07/11/24 09:13 Dose: 40 mg Documented By: TAHIR Sodium Chloride (0.9 % Sodium Chloride Flush 3 Ml Syringe) 3 ml IVFLUSH QSHIFT [facility] Last Admin: 07/11/24 09:13 Dose: 3 ml Documented By: TAHIR Labs 07/11/24 08:21 07/11/24 08:21 Labs: Laboratory Results - last 24 hr 07/10/24 07/10/24 07/11/24 16:05 20:37 00:38 Anion Gap Estim Creat Clear Calc Estimated GFR POC Glucose 324 H 386 H* 290 H Random Glucose Calcium 07/11/24 07/11/24 07/11/24 07:48 08:21 11:06 Anion Gap 14 Estim Creat Clear Calc 18.2 Estimated GFR 17 POC Glucose 163 H 194 H Random Glucose 164 H Calcium 8.6 Microbiology Microbiology Results: Microbiology 07/08/24 Unknown Urine Culture - Final Urine clean catch - Clean Catch Midstream Assessment and Plan (1) COPD exacerbation: Status: Acute Plan 54-year-old Kazakh-speaking female with a past medical history significant for COPD on O2 2-3 L via NC, chronic systolic and diastolic congestive heart failure and pleural effusions (requiring thoracentesis in the past), diabetes on insulin, chronic anemia requiring blood transfusion in the past, essential hypertension, orthostatic hypotension and hyperlipidemia, who presented to the ED due to shortness of breath, VICENTE, bilateral lower extremity edema and pain, as well as dizziness. Acute on chronic respiratory failure due to acute on chronic congestive heart failure and mild COPD exacerbation WBC 7.3, vital signs stable aside from increased O2 requirement, lactic acid normal, no sepsis, no acute infection BNP elevated at 600, chest x-ray with moderate bilateral pleural effusions. bilateral infiltrates, edema and/or atelectasis. Due to no cough or fever, pneumonia unlikely COVID/flu/RSV negative plan: i/o neg 2.8 liter dueonebs Q4H while awake,switch to prednisone , hold lasix due to dillon- cr seems similar to yesterday goal for sats 90% since patient has COPD. dizziness thought to be likely secondary to hypoxia no new symptoms DILLON on CKD - Cr 3 - UA -has proteinuria ,no pyuria ,trace bacteria no symptoms avoid nephrotoxins when possible - monitor BMP Insulin dependent DM fs with sliding scale. chronic anemia - H+H stable, no need for blood transfusion at this time - continue iron - monitor CBC HTN - resume amlodipine when appropriate HLD - no home meds VTE prophy: pneumonboots due to anemia ongoing need acute on chronic respiratory failure secondary to dillon with CHF and COPD exacerbation and complicated by recurrent pleural effusions- monitoring renal function, respiratory status, electrolytes. Quality Stroke Does the patient have a stroke diagnosis?: No VTE Prior VTE?: No VTE Risk Level:: Medical - moderate - high VTE Device Contraindication: N/A - Device Ordered VTE Drug Contraindication: Treatment Not Indicated
[2024-07-11 15:50] LABS: Glucose, Whole Blood 178 mg/dL (60-115)
[2024-07-11 21:44] LABS: Glucose, Whole Blood 350 mg/dL (60-115)
[2024-07-11] MEDS: Insulin Glargine,Hum.rec.anlog 100 UNIT/ML 10 ML VIAL SUBCUT (21:47)
[2024-07-11] MEDS: Gabapentin 100 MG CAPSULE PO (21:47)
[2024-07-12] VITALS (7 sets, daily range): BP systolic 139–164; BP diastolic 65–78; PULSE 93–102; RESP 16–20; TEMP 36.3–37.2; O2SAT 94–96; BMI 24.8
[2024-07-12] MEDS: Omeprazole 40 MG CAPSULE.DR PO (05:41)
[2024-07-12 07:05] LABS: Glucose, Whole Blood 277 mg/dL (60-115)
[2024-07-12] MEDS: Ferrous Sulfate 324 MG TABLET.DR PO (07:26)
[2024-07-12] MEDS: predniSONE 20 MG TABLET 40 MG PO (07:26)
[2024-07-12] MEDS: Aspirin Enteric Coated 81 MG TABLET.DR PO (07:26)
[2024-07-12] MEDS: amLODIPine Besylate 10 MG TABLET PO (07:27)
[2024-07-12] MEDS: Insulin Lispro 100 UNIT/ML 3 ML VIAL SUBCUT ×4 (07:27→22:00)
[2024-07-12] MEDS: 0.9 % Sodium Chloride Flush 3 ML SYRINGE IVFLUSH ×3 (07:27→22:01)
[2024-07-12] MEDS: Albuterol/Iprat 2.5/0.5MG 3 ML AMPUL.NEB INHALE ×2 (07:34→10:58)
[2024-07-12] MEDS: Milk of Magnesia 30 ML ORAL.SUSP PO (07:34)
[2024-07-12 08:37] LABS: Anion Gap 14 (12-20); Blood Urea Nitrogen 70 mg/dL (9-16); Carbon Dioxide 21 mmol/L (22-29); Chloride 105 mmol/L (96-108); Creatinine Clr Calc Pharmacy 21.3; Estimated Glomerular Filt Rate 18; Glucose Random 279 mg/dL (60-115); Potassium 5.3 mmol/L (3.3-5.1); Sodium 135 mmol/L (135-145)
[2024-07-12 08:42] LABS: B Type Natriuretic Peptide 862 pg/mL (<100)
[2024-07-12 10:49] LABS: Glucose, Whole Blood 235 mg/dL (60-115)
[2024-07-12] MEDS: Sodium Zirconium Cyclosilicate 5 GM POWD.PACK PO (10:53)
[2024-07-12 15:27] LABS: Glucose, Whole Blood 350 mg/dL (60-115)
--- NOTE | 2024-07-12 15:29 | P.PNIM_ITS ---
Subjective Subjective Date of Service: 07/12/24 Interval History: CHF Review of Systems Sob seems improving no cough or fevers Physical Exam 2 Vital Signs: Vital Signs: Last Vital Signs Temp 98.5 F 07/12/24 10:51 Pulse 96 07/12/24 10:59 Resp 18 07/12/24 10:59 BP 151/67 H 07/12/24 10:51 Pulse Ox 94 07/12/24 10:51 O2 Del Method Room Air 07/12/24 10:51 O2 Flow Rate 1.5 07/12/24 07:04 BMI result Body Mass Index 24.8 Appearance: Alert.? Oriented X3. cvs: [id number], [id number]. res: air entry fair ,slightly diminshed , no rales. abd: soft,,nt, bs present. ext pulses present , no cyanosis . neuro: axo3 , nonfocal. Objective Data Active Medications Acetaminophen (Acetaminophen 325 Mg Tablet) 975 mg PO Q6H PRN PRN Reason: Pain, Mild 1-3,fever,headache Albuterol/Ipratropium (Albuterol/Iprat 2.5/0.5mg 3 Ml Ampul.Neb) 3 ml INHALE RQ4H WHILE AWAKE [facility] Last Admin: 07/12/24 15:05 Dose: Not Given Documented By: RONI Non-Admin Reason: Patient Asleep Amlodipine Besylate (Amlodipine Besylate 10 Mg Tablet) 10 mg PO DAILY [facility]; Protocol Last Admin: 07/12/24 07:27 Dose: 10 mg Documented By: GREGORIA Aspirin (Aspirin Enteric Coated 81 Mg Tablet.) 81 mg PO DAILY [facility] Last Admin: 07/12/24 07:26 Dose: 81 mg Documented By: GREGORIA Calcium Carbonate (Calcium Carbonate 750 Mg Tab.Chew) 750 mg PO Q4H PRN PRN Reason: Heartburn Dextrose (Dextrose 50 % 25 Gm/50 Ml Syringe) 25 gm IVPUSH Q15M PRN; Protocol PRN Reason: per Hypoglycemia Standing Ord. Ferrous Sulfate (Ferrous Sulfate 324 Mg Tablet.) 324 mg PO DAILY [facility] Last Admin: 07/12/24 07:26 Dose: 324 mg Documented By: GREGORIA Gabapentin (Gabapentin 100 Mg Capsule) 100 mg PO BEDTIME [facility] Last Admin: 07/11/24 21:47 Dose: 100 mg Documented By: JUSTIN Glucose (Glucose Gel 15 Gm Gel..Gram.) 15 gm PO Q15M PRN; Protocol PRN Reason: per Hypoglycemia Standing Ord. Insulin Glargine (Insulin Glargine,Hum.Rec.Anlog 100 Unit/Ml 10 Ml Vial) 5 unit SUBCUT BEDTIME [facility] Last Admin: 07/11/24 21:47 Dose: 5 unit Documented By: JUSTIN Insulin Human Lispro (Insulin Lispro 100 Unit/Ml 3 Ml Vial) 0 unit SUBCUT QIDACHS [facility]; Protocol Last Admin: 07/12/24 10:53 Dose: 4 unit Documented By: GREGORIA Lactulose (Lactulose 20 Gm/30 Ml Solution) 10 gm PO BID PRN PRN Reason: constipation Magnesium Hydroxide (Milk Of Magnesia 30 Ml Oral.Susp) 30 ml PO DAILY PRN PRN Reason: Constipation Last Admin: 07/12/24 07:34 Dose: 30 ml Documented By: GREGORIA Melatonin (Melatonin 3 Mg Tablet) 6 mg PO BEDTIME PRN PRN Reason: Insomnia Omeprazole (Omeprazole 40 Mg Capsule.Dr) 40 mg PO DAILY@0630 [facility] Last Admin: 07/12/24 05:41 Dose: 40 mg Documented By: JUSTIN Ondansetron HCl (Ondansetron Hcl 4 Mg/2 Ml Vial) 4 mg IVPUSH Q8H PRN PRN Reason: Nausea and Vomiting Prednisone (Prednisone 20 Mg Tablet) 40 mg PO DAILY [facility] Last Admin: 07/12/24 07:26 Dose: 40 mg Documented By: GREGORIA Sodium Chloride (0.9 % Sodium Chloride Flush 3 Ml Syringe) 3 ml IVFLUSH QSHIFT [facility] Last Admin: 07/12/24 07:27 Dose: 3 ml Documented By: GREGOIRA Labs 07/11/24 08:21 07/12/24 07:49 Labs: Laboratory Results - last 24 hr 07/11/24 07/11/24 07/12/24 15:14 21:07 06:58 Anion Gap Estim Creat Clear Calc Estimated GFR POC Glucose 178 H 350 H* 277 H Random Glucose Calcium B-Natriuretic Peptide 07/12/24 07/12/24 07/12/24 07:49 10:43 15:19 Anion Gap 14 Estim Creat Clear Calc 21.3 Estimated GFR 18 POC Glucose 235 H 350 H* Random Glucose 279 H Calcium 9.0 B-Natriuretic Peptide 862 H Assessment and Plan (1) COPD exacerbation: Status: Acute (2) Acute and chronic respiratory failure with hypoxia: Status: Acute (3) Acute exacerbation of CHF (congestive heart failure): Status: Acute Assessment and Plan: 54-year-old Andorran-speaking female with a past medical history significant for COPD on O2 2-3 L via [place], chronic systolic and diastolic congestive heart failure and pleural effusions (requiring thoracentesis in the past), diabetes on insulin, chronic anemia requiring blood transfusion in the past, essential hypertension, orthostatic hypotension and hyperlipidemia, who presented to the ED due to shortness of breath, VICENTE, bilateral lower extremity edema and pain, as well as dizziness. Acute on chronic respiratory failure due to acute on chronic congestive heart failure and mild COPD exacerbation WBC 7.3, vital signs stable aside from increased O2 requirement, lactic acid normal, no sepsis, no acute infection BNP elevated at 600, chest x-ray with moderate bilateral pleural effusions. bilateral infiltrates, edema and/or atelectasis. Due to no cough or fever, pneumonia unlikely COVID/flu/RSV negative plan: i/o neg 2.850 liter dueonebs Q4H while awake,switch to prednisone , hold lasix due to dillon- cr seems slightly improving goal for sats 90% since patient has COPD. dizziness thought to be likely secondary to hypoxia no new symptoms DILLON on CKD - Cr 3 - UA -has proteinuria ,no pyuria ,trace bacteria no symptoms avoid nephrotoxins when possible - monitor BMP Insulin dependent DM fs with sliding scale. chronic anemia - H+H stable, no need for blood transfusion at this time - continue iron - monitor CBC HTN - resume amlodipine when appropriate HLD - no home meds generalised weak-added pt. VTE prophy: pneumonboots due to anemia ongoing need acute on chronic respiratory failure secondary to dillon with CHF and COPD exacerbation and complicated by recurrent pleural effusions- monitoring renal function, respiratory status, electrolytes. Quality Stroke Does the patient have a stroke diagnosis?: No VTE Prior VTE?: No VTE Risk Level:: Medical - moderate - high VTE Device Contraindication: N/A - Device Ordered VTE Drug Contraindication: Treatment Not Indicated
[2024-07-12] MEDS: Insulin Glargine,Hum.rec.anlog 100 UNIT/ML 10 ML VIAL SUBCUT (22:00)
[2024-07-12] MEDS: Gabapentin 100 MG CAPSULE PO (22:00)
[2024-07-12 22:11] LABS: Glucose, Whole Blood 407 mg/dL (60-115)
[2024-07-13] VITALS (12 sets, daily range): BP systolic 132–162; BP diastolic 65–84; PULSE 75–97; RESP 17–18; TEMP 36.2–37.1; O2SAT 92–98; BMI 24.5
--- NOTE | 2024-07-13 03:38 | PC.NURSE ---
Patients nighttime blood sugar 407, overnight provider made aware, told this RN to just cover with 10units per sliding scale. patient given 10units lispro along with scheduled 5units Lantus.
[2024-07-13 03:45] LABS: Glucose, Whole Blood 217 mg/dL (60-115)
[2024-07-13] MEDS: Omeprazole 40 MG CAPSULE.DR PO (04:56)
[2024-07-13 07:02] LABS: Glucose, Whole Blood 167 mg/dL (60-115)
[2024-07-13] MEDS: Insulin Lispro 100 UNIT/ML 3 ML VIAL SUBCUT ×5 (07:45→20:21)
[2024-07-13] MEDS: amLODIPine Besylate 10 MG TABLET PO (07:45)
[2024-07-13] MEDS: Albuterol/Iprat 2.5/0.5MG 3 ML AMPUL.NEB INHALE ×4 (07:45→20:56)
[2024-07-13] MEDS: predniSONE 20 MG TABLET 40 MG PO (07:45)
[2024-07-13] MEDS: Ferrous Sulfate 324 MG TABLET.DR PO (07:45)
[2024-07-13] MEDS: Aspirin Enteric Coated 81 MG TABLET.DR PO (07:45)
[2024-07-13] MEDS: 0.9 % Sodium Chloride Flush 3 ML SYRINGE IVFLUSH ×2 (07:46→16:15)
[2024-07-13] MEDS: Milk of Magnesia 30 ML ORAL.SUSP PO (07:51)
[2024-07-13 08:37] LABS: Anion Gap 10 (12-20); Blood Urea Nitrogen 72 mg/dL (9-16); Calcium 8.6 mg/dL (8.4-10.2); Carbon Dioxide 25 mmol/L (22-29); Chloride 106 mmol/L (96-108); Estimated Glomerular Filt Rate 21; Glucose Random 172 mg/dL (60-115); Potassium 5.4 mmol/L (3.3-5.1); Sodium 136 mmol/L (135-145)
[2024-07-13 11:06] LABS: Glucose, Whole Blood 211 mg/dL (60-115)
--- NOTE | 2024-07-13 11:30 | P.PNNP_ITS ---
Subjective Subjective Date of Service: 07/13/24 Interval history: CHF Physical Exam 2 Vital Signs: Vital Signs: Last Vital Signs Temp 97.1 F 07/13/24 11:03 Pulse 75 07/13/24 11:03 Resp 17 07/13/24 11:03 BP 132/67 07/13/24 11:03 Pulse Ox 92 07/13/24 11:03 O2 Del Method Nasal Cannula 07/13/24 11:03 O2 Flow Rate 2 07/13/24 11:03 BMI result Body Mass Index 24.5 Const: General: no acute distress Orientation/consciousness: patient oriented x3 Eyes: EOM: EOMs intact bilaterally Neck: Neck: Yes supple Resp: Auscultation: diminished lung sounds Cardio: Rate: regular rate GI: Palpation (GI): Soft to palpation Neuro: General: patient oriented x3 and moves all extremities Objective Data Labs 07/11/24 08:21 07/14/24 08:17 Labs: Laboratory Results - last 24 hr 07/12/24 07/12/24 07/13/24 15:19 21:29 03:41 Sodium Potassium Chloride Carbon Dioxide Anion Gap BUN Creatinine Estim Creat Clear Calc Estimated GFR POC Glucose 350 H* 407 H* 217 H Random Glucose Calcium 07/13/24 07/13/24 07/13/24 06:58 08:04 11:02 Sodium 136 Potassium 5.4 H Chloride 106 Carbon Dioxide 25 Anion Gap 10 L BUN 72 H Creatinine 2.38 H Estim Creat Clear Calc 22.0 Estimated GFR 21 POC Glucose 167 H 211 H Random Glucose 172 H Calcium 8.6 Microbiology Microbiology Results: Microbiology 07/08/24 Unknown Urine clean catch - Clean Catch Midstream Urine Culture - Final Procedures Date of Service Date of Service: 07/14/24 Assessment & Plan Assessment and plan (1) Acute kidney injury superimposed on CKD: Status: Acute Plan DILLON due to reduced perfusion with resultant tubular injury UO fair; Restart Lasix at 20 mg daily and titrate dose as outpatient No ACEI/ARB for now due to persistent hyperkalemia Keep on low-potassium diet and add Lokelma p.r.n. Daily weights; 2 Gram Na restriction;No indication for renal replacement C/W rest of current supportive care; Outpatient follow up upon discharge Time Spent With Patient Time: Total time managing care of this patient today ____ minutes. Progress Note: Quality Stroke Does the patient have a stroke diagnosis?: No
--- NOTE | 2024-07-13 13:23 | MHC.CM.PN ---
Patient has been medically cleared for dc to home today with services. Patient is active with [facility], who has been made aware of today's dc.
[2024-07-13] MEDS: Sodium Zirconium Cyclosilicate 10 GM POWD.PACK PO ×2 (13:42→16:07)
[2024-07-13 14:45] LABS: Potassium 6.4 mmol/L (3.3-5.1)
--- NOTE | 2024-07-13 15:03 | MHC.CM.PN ---
Planned dc for today has been canceled; K is high. CM will follow.
[2024-07-13 15:34] LABS: Anion Gap 12 (12-20); Blood Urea Nitrogen 72 mg/dL (9-16); Calcium 8.6 mg/dL (8.4-10.2); Carbon Dioxide 23 mmol/L (22-29); Chloride 104 mmol/L (96-108); Creatinine Clr Calc Pharmacy 21.8; Estimated Glomerular Filt Rate 21; Glucose Random 335 mg/dL (60-115); Potassium 6.4 mmol/L (3.3-5.1); Sodium 133 mmol/L (135-145)
[2024-07-13] MEDS: Albuterol Sulfate 5 MG, Albuterol Sulfate (0.083%) 2.5 MG 7.5 MG INHALE (15:46)
[2024-07-13 16:04] LABS: Glucose, Whole Blood 351 mg/dL (60-115)
[2024-07-13] MEDS: Insulin Regular, Human 100 UNIT/ML 10 ML VIAL IVPUSH (16:07)
[2024-07-13] MEDS: Calcium Gluconate/NaCl,Iso-Osm 2 GM/100 ML PLAST..BAG IV (16:10)
--- NOTE | 2024-07-13 16:56 | HO.PM.IMPN ---
Subjective Subjective Date of Service: 07/13/24 Interval History: Hyperkalemia/hyperglycemia Review of Systems Patient has shortness of breath seems to be improving significantly Denies any chest pain or palpitations Physical Exam Vital Signs: Vital Signs: Last Vital Signs Temp 97.3 F 07/13/24 15:37 Pulse 94 07/13/24 15:46 Resp 18 07/13/24 15:46 BP 135/68 07/13/24 15:37 Pulse Ox 98 07/13/24 15:37 O2 Del Method Nasal Cannula 07/13/24 15:37 O2 Flow Rate 2 07/13/24 15:37 BMI result Body Mass Index 24.5 Appearance: Alert.? Oriented X3. cvs: rrr, [id number]. res: air entry fair ,slightly diminshed , no rales. abd: soft,,nt, bs present. ext pulses present , no cyanosis . neuro: axo3 , nonfocal. Objective Data Active Medications Acetaminophen (Acetaminophen 325 Mg Tablet) 975 mg PO Q6H PRN PRN Reason: Pain, Mild 1-3,fever,headache Albuterol/Ipratropium (Albuterol/Iprat 2.5/0.5mg 3 Ml Ampul.Neb) 3 ml INHALE RQ4H WHILE AWAKE [facility] Last Admin: 07/13/24 15:16 Dose: 3 ml Documented By: ELIDIA Amlodipine Besylate (Amlodipine Besylate 10 Mg Tablet) 10 mg PO DAILY [facility]; Protocol Last Admin: 07/13/24 07:45 Dose: 10 mg Documented By: SANDY Aspirin (Aspirin Enteric Coated 81 Mg Tablet.) 81 mg PO DAILY [facility] Last Admin: 07/13/24 07:45 Dose: 81 mg Documented By: SANDY Calcium Carbonate (Calcium Carbonate 750 Mg Tab.Chew) 750 mg PO Q4H PRN PRN Reason: Heartburn Dextrose (Dextrose 50 % 25 Gm/50 Ml Syringe) 25 gm IVPUSH Q15M PRN; Protocol PRN Reason: per Hypoglycemia Standing Ord. Ferrous Sulfate (Ferrous Sulfate 324 Mg Tablet.) 324 mg PO DAILY [facility] Last Admin: 07/13/24 07:45 Dose: 324 mg Documented By: SANDY Gabapentin (Gabapentin 100 Mg Capsule) 100 mg PO BEDTIME [facility] Last Admin: 07/12/24 22:00 Dose: 100 mg Documented By: JUSTIN Glucose (Glucose Gel 15 Gm Gel..Gram.) 15 gm PO Q15M PRN; Protocol PRN Reason: per Hypoglycemia Standing Ord. Calcium Gluconate (Calcium Gluconate) 2 gm in 100 mls @ 50 mls/hr IV ONCE ONE Stop: 07/13/24 17:59 Last Admin: 07/13/24 16:10 Dose: 50 mls/hr Documented By: SANDY Insulin Glargine (Insulin Glargine,Hum.Rec.Anlog 100 Unit/Ml 10 Ml Vial) 5 unit SUBCUT BEDTIME [facility] Last Admin: 07/12/24 22:00 Dose: 5 unit Documented By: JUSTIN Insulin Human Lispro (Insulin Lispro 100 Unit/Ml 3 Ml Vial) 0 unit SUBCUT QIDACHS [facility]; Protocol Last Admin: 07/13/24 11:10 Dose: 4 unit Documented By: SANDY Lactulose (Lactulose 20 Gm/30 Ml Solution) 10 gm PO BID PRN PRN Reason: constipation Magnesium Hydroxide (Milk Of Magnesia 30 Ml Oral.Susp) 30 ml PO DAILY PRN PRN Reason: Constipation Last Admin: 07/13/24 07:51 Dose: 30 ml Documented By: SANDY Melatonin (Melatonin 3 Mg Tablet) 6 mg PO BEDTIME PRN PRN Reason: Insomnia Omeprazole (Omeprazole 40 Mg Capsule.Dr) 40 mg PO DAILY@0630 [facility] Last Admin: 07/13/24 04:56 Dose: 40 mg Documented By: JUSTIN Ondansetron HCl (Ondansetron Hcl 4 Mg/2 Ml Vial) 4 mg IVPUSH Q8H PRN PRN Reason: Nausea and Vomiting Prednisone (Prednisone 20 Mg Tablet) 40 mg PO DAILY [facility] Last Admin: 07/13/24 07:45 Dose: 40 mg Documented By: SANDY Sodium Chloride (0.9 % Sodium Chloride Flush 3 Ml Syringe) 3 ml IVFLUSH QSHIFT [facility] Last Admin: 07/13/24 16:15 Dose: 3 ml Documented By: SANDY Labs 07/11/24 08:21 07/13/24 14:56 Labs: Laboratory Results - last 24 hr 07/12/24 07/13/24 07/13/24 21:29 03:41 06:58 Anion Gap Estim Creat Clear Calc Estimated GFR POC Glucose 407 H* 217 H 167 H Random Glucose Calcium 07/13/24 07/13/24 07/13/24 08:04 11:02 14:56 Anion Gap 10 L 12 Estim Creat Clear Calc 22.0 21.8 Estimated GFR 21 21 POC Glucose 211 H Random Glucose 172 H 335 H Calcium 8.6 8.6 07/13/24 16:01 Anion Gap Estim Creat Clear Calc Estimated GFR POC Glucose 351 H* Random Glucose Calcium Assessment and Plan (1) COPD exacerbation: Status: Acute (2) Acute and chronic respiratory failure with hypoxia: Status: Acute (3) Acute exacerbation of CHF (congestive heart failure): Status: Acute Assessment and Plan: 54-year-old [place]ander-speaking female with a past medical history significant for COPD on O2 2-3 L via NC, chronic systolic and diastolic congestive heart failure and pleural effusions (requiring thoracentesis in the past), diabetes on insulin, chronic anemia requiring blood transfusion in the past, essential hypertension, orthostatic hypotension and hyperlipidemia, who presented to the ED due to shortness of breath, VICENTE, bilateral lower extremity edema and pain, as well as dizziness. Acute on chronic respiratory failure due to acute on chronic congestive heart failure and mild COPD exacerbation WBC 7.3, vital signs stable aside from increased O2 requirement, lactic acid normal, no sepsis, no acute infection BNP elevated at 600, chest x-ray with moderate bilateral pleural effusions. bilateral infiltrates, edema and/or atelectasis. Due to no cough or fever, pneumonia unlikely COVID/flu/RSV negative plan: i/o neg 2.850 liter dueonebs Q4H while awake,switch to prednisone , hold lasix due to gregory- cr seems slightly improving goal for sats 90% since patient has COPD. dizziness thought to be likely secondary to hypoxia no new symptoms GREGORY on CKD-Cr 3 UA -has proteinuria ,no pyuria ,trace bacteria no symptoms. hyperkalemia -added inslin iv ,loklema , albuterol,calcium gluconate. avoid nephrotoxins when possible. low potassium diet will BMP Insulin dependent DM 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 continue lantus and fs with sliding scale. chronic anemia - H+H stable, no need for blood transfusion at this time - continue iron - monitor CBC HTN - resume amlodipine when appropriate HLD - no home meds VTE prophy: pneumonboots due to anemia ongoing need acute on chronic respiratory failure secondary to gregory on CKD, hyperkalemia- monitoring renal function, respiratory status, electrolytes. Quality Stroke Does the patient have a stroke diagnosis?: No VTE Prior VTE?: No VTE Risk Level:: Medical - moderate - high VTE Device Contraindication: N/A - Device Ordered VTE Drug Contraindication: Treatment Not Indicated
[2024-07-13 18:41] LABS: Anion Gap 13 (12-20); Blood Urea Nitrogen 73 mg/dL (9-16); Calcium 8.7 mg/dL (8.4-10.2); Carbon Dioxide 21 mmol/L (22-29); Chloride 104 mmol/L (96-108); Creatinine Clr Calc Pharmacy 21.5; Estimated Glomerular Filt Rate 21; Glucose Random 351 mg/dL (60-115); Potassium 5.3 mmol/L (3.3-5.1); Sodium 133 mmol/L (135-145)
[2024-07-13 19:32] LABS: Glucose, Whole Blood 317 mg/dL (60-115)
[2024-07-13] MEDS: Insulin Glargine,Hum.rec.anlog 100 UNIT/ML 10 ML VIAL SUBCUT (20:05)
[2024-07-13] MEDS: Gabapentin 100 MG CAPSULE PO (20:05)
[2024-07-14] VITALS (11 sets, daily range): BP systolic 144–171; BP diastolic 66–76; PULSE 87–98; RESP 16–18; TEMP 36.4–37.5; O2SAT 92–96; BMI 24.6
[2024-07-14] MEDS: Omeprazole 40 MG CAPSULE.DR PO (05:31)
[2024-07-14 07:31] LABS: Glucose, Whole Blood 238 mg/dL (60-115)
[2024-07-14] MEDS: 0.9 % Sodium Chloride Flush 3 ML SYRINGE IVFLUSH ×2 (08:46→16:24)
[2024-07-14] MEDS: Insulin Lispro 100 UNIT/ML 3 ML VIAL SUBCUT ×4 (08:46→20:18)
[2024-07-14] MEDS: Ferrous Sulfate 324 MG TABLET.DR PO (08:47)
[2024-07-14] MEDS: amLODIPine Besylate 10 MG TABLET PO (08:47)
[2024-07-14] MEDS: Aspirin Enteric Coated 81 MG TABLET.DR PO (08:47)
[2024-07-14] MEDS: predniSONE 20 MG TABLET 40 MG PO (08:47)
[2024-07-14] MEDS: Furosemide 20 MG TABLET PO (08:47)
[2024-07-14 09:00] LABS: Anion Gap 12 (12-20); Blood Urea Nitrogen 71 mg/dL (9-16); Calcium 8.5 mg/dL (8.4-10.2); Carbon Dioxide 24 mmol/L (22-29); Chloride 106 mmol/L (96-108); Creatinine Clr Calc Pharmacy 23.1; Estimated Glomerular Filt Rate 20; Glucose Random 222 mg/dL (60-115); Potassium 5.5 mmol/L (3.3-5.1); Sodium 136 mmol/L (135-145)
[2024-07-14] MEDS: Sodium Zirconium Cyclosilicate 10 GM POWD.PACK PO (09:29)
[2024-07-14 11:14] LABS: Glucose, Whole Blood 228 mg/dL (60-115)
--- NOTE | 2024-07-14 11:19 | P.PNNP_ITS ---
Subjective Subjective Date of Service: 07/14/24 Interval history: Hyperkalemia/hyperglycemia Physical Exam 2 Vital Signs: Vital Signs: Last Vital Signs Temp 99.2 F 07/14/24 10:59 Pulse 89 07/14/24 10:59 Resp 18 07/14/24 10:59 BP 171/75 H 07/14/24 10:59 Pulse Ox 96 07/14/24 10:59 O2 Del Method Nasal Cannula 07/14/24 10:59 O2 Flow Rate 1 07/14/24 10:59 BMI result Body Mass Index 24.6 Const: General: no acute distress Orientation/consciousness: patient oriented x3 Eyes: EOM: EOMs intact bilaterally Neck: Neck: Yes supple Resp: Auscultation: diminished lung sounds Cardio: Rate: regular rate GI: Palpation (GI): Soft to palpation Neuro: General: patient oriented x3 and moves all extremities Objective Data Labs 07/11/24 08:21 07/15/24 06:12 Labs: Laboratory Results - last 24 hr 07/13/24 07/13/24 07/13/24 13:34 14:56 16:01 Sodium 133 L Potassium 6.4 H* 6.4 H* Chloride 104 Carbon Dioxide 23 Anion Gap 12 BUN 72 H Creatinine 2.41 H Estim Creat Clear Calc 21.8 Estimated GFR 21 POC Glucose 351 H* Random Glucose 335 H Calcium 8.6 07/13/24 07/13/24 07/14/24 17:51 19:28 07:27 Sodium 133 L Potassium 5.3 H Chloride 104 Carbon Dioxide 21 L Anion Gap 13 BUN 73 H Creatinine 2.44 H Estim Creat Clear Calc 21.5 Estimated GFR 21 POC Glucose 317 H 238 H Random Glucose 351 H* Calcium 8.7 07/14/24 07/14/24 08:17 11:01 Sodium 136 Potassium 5.5 H Chloride 106 Carbon Dioxide 24 Anion Gap 12 BUN 71 H Creatinine 2.46 H Estim Creat Clear Calc 23.1 Estimated GFR 20 POC Glucose 228 H Random Glucose 222 H Calcium 8.5 Microbiology Microbiology Results: Microbiology 07/08/24 Unknown Urine clean catch - Clean Catch Midstream Urine Culture - Final Procedures Date of Service Date of Service: 07/20/24 Assessment & Plan Assessment and plan (1) Acute kidney injury superimposed on CKD: Status: Acute Plan DILLON due to reduced perfusion with resultant tubular injury UO fair; Restart Lasix at 20 mg daily and titrate dose as outpatient No ACEI/ARB for now due to persistent hyperkalemia Keep on low-potassium diet and add Lokelma p.r.n. Daily weights; 2 Gram Na restriction;No indication for renal replacement C/W rest of current supportive care; Outpatient follow up upon discharge Time Spent With Patient Time: Total time managing care of this patient today ____ minutes. Progress Note: Quality Stroke Does the patient have a stroke diagnosis?: No
[2024-07-14] MEDS: Albuterol/Iprat 2.5/0.5MG 3 ML AMPUL.NEB INHALE ×2 (11:32→15:15)
--- NOTE | 2024-07-14 13:29 | HO.PM.IMPN ---
Subjective Subjective Date of Service: 07/14/24 Interval History: hyperkalemia Review of Systems patient sob seems to be improved no fever or chills Physical Exam Vital Signs: Vital Signs: Last Vital Signs Temp 99.2 F 07/14/24 10:59 Pulse 89 07/14/24 11:34 Resp 18 07/14/24 11:34 BP 171/75 H 07/14/24 10:59 Pulse Ox 96 07/14/24 10:59 O2 Del Method Nasal Cannula 07/14/24 10:59 O2 Flow Rate 1 07/14/24 10:59 BMI result Body Mass Index 24.6 Appearance: Alert.? Oriented X3. cvs: rrr, [id number]. res: air entry fair ,slightly diminshed , no rales. abd: soft,,nt, bs present. ext pulses present , no cyanosis . neuro: axo3 , nonfocal. Objective Data Active Medications Acetaminophen (Acetaminophen 325 Mg Tablet) 975 mg PO Q6H PRN PRN Reason: Pain, Mild 1-3,fever,headache Albuterol/Ipratropium (Albuterol/Iprat 2.5/0.5mg 3 Ml Ampul.Neb) 3 ml INHALE RQ4H WHILE AWAKE [facility] Last Admin: 07/14/24 11:32 Dose: 3 ml Documented By: ELIDIA Amlodipine Besylate (Amlodipine Besylate 10 Mg Tablet) 10 mg PO DAILY [facility]; Protocol Last Admin: 07/14/24 08:47 Dose: 10 mg Documented By: SANDY Aspirin (Aspirin Enteric Coated 81 Mg Tablet.) 81 mg PO DAILY [facility] Last Admin: 07/14/24 08:47 Dose: 81 mg Documented By: SANDY Calcium Carbonate (Calcium Carbonate 750 Mg Tab.Chew) 750 mg PO Q4H PRN PRN Reason: Heartburn Dextrose (Dextrose 50 % 25 Gm/50 Ml Syringe) 25 gm IVPUSH Q15M PRN; Protocol PRN Reason: per Hypoglycemia Standing Ord. Ferrous Sulfate (Ferrous Sulfate 324 Mg Tablet.) 324 mg PO DAILY [facility] Last Admin: 07/14/24 08:47 Dose: 324 mg Documented By: SANDY Furosemide (Furosemide 20 Mg Tablet) 20 mg PO DAILY [facility]; Protocol Last Admin: 07/14/24 08:47 Dose: 20 mg Documented By: SANDY Gabapentin (Gabapentin 100 Mg Capsule) 100 mg PO BEDTIME [facility] Last Admin: 07/13/24 20:05 Dose: 100 mg Documented By: NINA Glucose (Glucose Gel 15 Gm Gel..Gram.) 15 gm PO Q15M PRN; Protocol PRN Reason: per Hypoglycemia Standing Ord. Insulin Glargine (Insulin Glargine,Hum.Rec.Anlog 100 Unit/Ml 10 Ml Vial) 5 unit SUBCUT BEDTIME [facility] Last Admin: 07/13/24 20:05 Dose: 5 unit Documented By: NINA Insulin Human Lispro (Insulin Lispro 100 Unit/Ml 3 Ml Vial) 0 unit SUBCUT QIDACHS [facility]; Protocol Last Admin: 07/14/24 12:10 Dose: 4 unit Documented By: SANDY Lactulose (Lactulose 20 Gm/30 Ml Solution) 10 gm PO BID PRN PRN Reason: constipation Magnesium Hydroxide (Milk Of Magnesia 30 Ml Oral.Susp) 30 ml PO DAILY PRN PRN Reason: Constipation Last Admin: 07/13/24 07:51 Dose: 30 ml Documented By: SANDY Melatonin (Melatonin 3 Mg Tablet) 6 mg PO BEDTIME PRN PRN Reason: Insomnia Omeprazole (Omeprazole 40 Mg Capsule.Dr) 40 mg PO DAILY@0630 [facility] Last Admin: 07/14/24 05:31 Dose: 40 mg Documented By: NINA Ondansetron HCl (Ondansetron Hcl 4 Mg/2 Ml Vial) 4 mg IVPUSH Q8H PRN PRN Reason: Nausea and Vomiting Prednisone (Prednisone 20 Mg Tablet) 40 mg PO DAILY [facility] Last Admin: 07/14/24 08:47 Dose: 40 mg Documented By: SANDY Sodium Chloride (0.9 % Sodium Chloride Flush 3 Ml Syringe) 3 ml IVFLUSH QSHIFT [facility] Last Admin: 07/14/24 08:46 Dose: 3 ml Documented By: SANDY Labs 07/11/24 08:21 07/14/24 08:17 Labs: Laboratory Results - last 24 hr 07/13/24 07/13/24 07/13/24 14:56 16:01 17:51 Anion Gap 12 13 Estim Creat Clear Calc 21.8 21.5 Estimated GFR 21 21 POC Glucose 351 H* Random Glucose 335 H 351 H* Calcium 8.6 8.7 07/13/24 07/14/24 07/14/24 19:28 07:27 08:17 Anion Gap 12 Estim Creat Clear Calc 23.1 Estimated GFR 20 POC Glucose 317 H 238 H Random Glucose 222 H Calcium 8.5 07/14/24 11:01 Anion Gap Estim Creat Clear Calc Estimated GFR POC Glucose 228 H Random Glucose Calcium Assessment and Plan (1) COPD exacerbation: Status: Acute (2) Hyperkalemia: Status: Acute Plan 54-year-old Stateless-speaking female with a past medical history significant for COPD on O2 2-3 L via NC, chronic systolic and diastolic congestive heart failure and pleural effusions (requiring thoracentesis in the past), diabetes on insulin, chronic anemia requiring blood transfusion in the past, essential hypertension, orthostatic hypotension and hyperlipidemia, who presented to the ED due to shortness of breath, VICENTE, bilateral lower extremity edema and pain, as well as dizziness. Acute on chronic respiratory failure due to acute on chronic congestive heart failure and mild COPD exacerbation WBC 7.3, vital signs stable aside from increased O2 requirement, lactic acid normal, no sepsis, no acute infection BNP elevated at 600, chest x-ray with moderate bilateral pleural effusions. bilateral infiltrates, edema and/or atelectasis. Due to no cough or fever, pneumonia unlikely COVID/flu/RSV negative plan: i/o neg 2.850 liter dueonebs Q4H while awake,switch to prednisone , hold lasix due to dillon- cr seems slightly improving goal for sats 90% since patient has COPD. dizziness thought to be likely secondary to hypoxia no new symptoms DILLON on CKD-Cr 3 UA -has proteinuria ,no pyuria ,trace bacteria no symptoms. hyperkalemia -received inslin iv ,loklema , albuterol,calcium gluconate. avoid nephrotoxins . low potassium diet, patient is still hyperkalemic -added loklema moniter BMP closely and nephrology is aware to follow up Insulin dependent DM 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 continue lantus and fs with sliding scale. chronic anemia - H+H stable, no need for blood transfusion at this time - continue iron - monitor CBC HTN - resume amlodipine when appropriate HLD - no home meds VTE prophy: pneumonboots due to anemia ongoing need CKD with persistent / hyperkalemia- monitoring renal function,electrolyte monitering as well as nephrology eval. Quality Stroke Does the patient have a stroke diagnosis?: No VTE Prior VTE?: No VTE Risk Level:: Medical - moderate - high VTE Device Contraindication: N/A - Device Ordered VTE Drug Contraindication: Treatment Not Indicated
[2024-07-14] MEDS: Sodium Zirconium Cyclosilicate 5 GM POWD.PACK PO (13:53)
[2024-07-14 15:27] LABS: Glucose, Whole Blood 189 mg/dL (60-115)
[2024-07-14] MEDS: Gabapentin 100 MG CAPSULE PO (20:18)
[2024-07-14] MEDS: Insulin Glargine,Hum.rec.anlog 100 UNIT/ML 10 ML VIAL SUBCUT (20:18)
[2024-07-14 20:26] LABS: Glucose, Whole Blood 289 mg/dL (60-115)
[2024-07-14 20:47] LABS: Anion Gap 11 (12-20); Blood Urea Nitrogen 72 mg/dL (9-16); Calcium 8.4 mg/dL (8.4-10.2); Carbon Dioxide 24 mmol/L (22-29); Chloride 106 mmol/L (96-108); Estimated Glomerular Filt Rate 18; Glucose Random 295 mg/dL (60-115); Potassium 5.2 mmol/L (3.3-5.1); Sodium 136 mmol/L (135-145)
[2024-07-15 03:43] VITALS: BP 162/79; PULSE 88; RESP 17; TEMP 36.8; O2SAT 94
[2024-07-15] MEDS: Omeprazole 40 MG CAPSULE.DR PO (05:29)
[2024-07-15 07:02] LABS: Anion Gap 12 (12-20); Blood Urea Nitrogen 76 mg/dL (9-16); Calcium 8.5 mg/dL (8.4-10.2); Carbon Dioxide 24 mmol/L (22-29); Chloride 104 mmol/L (96-108); Creatinine Clr Calc Pharmacy 21.9; Estimated Glomerular Filt Rate 19; Glucose Random 344 mg/dL (60-115); Potassium 5.1 mmol/L (3.3-5.1); Sodium 135 mmol/L (135-145)
[2024-07-15 07:09] VITALS: BMI 25.0
[2024-07-15 07:10] VITALS: BP 140/80; PULSE 92; RESP 12; TEMP 36.3; O2SAT 92
[2024-07-15 07:10] LABS: Glucose, Whole Blood 299 mg/dL (60-115)
[2024-07-15 07:22] VITALS: BP 140/80
[2024-07-15] MEDS: amLODIPine Besylate 10 MG TABLET PO (07:22)
[2024-07-15] MEDS: 0.9 % Sodium Chloride Flush 3 ML SYRINGE IVFLUSH ×2 (07:22→16:21)
[2024-07-15 07:23] VITALS: BP 140/80
[2024-07-15] MEDS: Furosemide 20 MG TABLET PO (07:23)
[2024-07-15] MEDS: Aspirin Enteric Coated 81 MG TABLET.DR PO (07:23)
[2024-07-15] MEDS: Ferrous Sulfate 324 MG TABLET.DR PO (07:23)
[2024-07-15] MEDS: predniSONE 20 MG TABLET 40 MG PO (07:23)
[2024-07-15] MEDS: Insulin Lispro 100 UNIT/ML 3 ML VIAL SUBCUT ×3 (07:23→16:21)
[2024-07-15 11:09] LABS: Glucose, Whole Blood 292 mg/dL (60-115)
[2024-07-15 11:16] VITALS: BP 164/70; PULSE 87; RESP 15; TEMP 36.2; O2SAT 97
--- NOTE | 2024-07-15 11:25 | PM.DS ---
DS: Providers Provider Date of Service: 07/15/24 Date of admission: 07/07/24 21:16 Date of discharge: 07/15/24 Primary care physician: Neelima Story MD Consults: 07/08/24 08:14 Consult to Nephrology Routine Consulting Provider: [facility] Reason for consultation: chf with dillon on ckd Has provider been notified: No 07/09/24 07:23 Consult to Pulmonology Routine Consulting Provider: [facility] Reason for consultation: hypoxia -copd /pleural effusions Has provider been notified: No DS: Diagnosis Discharge Diagnosis (1) COPD exacerbation: Status: Acute (2) Hyperkalemia: Status: Acute DS: Summary Hospital Course Hospital Course: from initial hpi: 54-year-old Citizen [place]-speaking female with a past medical history significant for COPD on O2 2-3 L via NC, chronic systolic and diastolic congestive heart failure and pleural effusions (requiring thoracentesis in the past), diabetes on insulin, chronic anemia requiring blood transfusion in the past, essential hypertension, orthostatic hypotension and hyperlipidemia, who presented to the ED due to shortness of breath, VICENTE, bilateral lower extremity edema and pain, as well as dizziness. She also reports malodorous urine but not frequency, urgency, or dysuria. She is unsure if she has been taking her lasix at home, she reports that her son gives her all of her medications. She denies headache, fever, chills, nausea, vomtiing, abd pain, cough, rhinorrhea, or congestion. The pt is a poor historian. hospital course: Patient was admitted for acute on chronic hypoxic respiratory failure due to acute on chronic systolic and diastolic CHF and COPD with acute decompensation. Patient was treated with IV diuresis, DuoNebs, steroids. Shortness of breath and hypoxia resolved and patient is feeling back to baseline. We will be discharged on 3 more days of prednisone. Continue on Lasix maintenance. For acute kidney injury on CKD 3 complicated by severe hyperkalemia of 6.4, creatinine is stabilized around 2.3, potassium normalized after low, and Lasix. Was seen by Nephrology who recommended continuing low, as outpatient and discontinuing any potassium-sparing medications. For diabetes with hyper glycemia was continued on basal bolus insulin. Patient is feeling better will be discharged home. Time Attestation Discharge Coordination Time (in mins): 33 Quality: Safe Use of Opioids Does Pt have an Active Cancer Diagnosis on the Problem List?: No Quality: Stroke Does the patient have a stroke diagnosis?: No Physical Exam Vital Signs: Vital Signs: Last Vital Signs Temp 97.2 F 07/15/24 11:16 Pulse 87 07/15/24 11:16 Resp 15 07/15/24 11:16 BP 164/70 H 07/15/24 11:16 Pulse Ox 97 07/15/24 11:16 O2 Del Method Room Air 07/15/24 11:16 O2 Flow Rate 1 07/14/24 19:28 BMI result Body Mass Index 25.0 Appearance: Alert.? Oriented X3. cvs: rrr, [id number]. res: air entry fair ,slightly diminshed , no rales. abd: soft,,nt, bs present. ext pulses present , no cyanosis . neuro: axo3 , nonfocal. DS: Data Data Completed and Pending Completed studies during hospitalization [Text1]: Procedures Assistance with Respiratory Ventilation, Less than 24 Consecutive Hours, Continuous Positive Airway Pressure (02/08/24) Drainage of Left Pleural Cavity, Percutaneous Approach (05/31/24) Drainage of Right Pleural Cavity, Percutaneous Approach (04/07/24) Insertion of Infusion Device into Left Cephalic Vein, Percutaneous Approach (02/08/24) Transfusion of Nonautologous Red Blood Cells into Peripheral Vein, Percutaneous Approach (04/07/24) Labs on day of discharge: Laboratory Results - last 24 hr 07/14/24 07/14/24 07/14/24 15:09 20:07 20:16 Hold Purple Top Sodium 136 Potassium 5.2 H Chloride 106 Carbon Dioxide 24 Anion Gap 11 L BUN 72 H Creatinine 2.70 H Estim Creat Clear Calc 21.0 Estimated GFR 18 POC Glucose 189 H 289 H Random Glucose 295 H Calcium 8.4 07/15/24 07/15/24 07/15/24 06:12 07:07 11:05 Hold Purple Top SEE NOTE Sodium 135 Potassium 5.1 Chloride 104 Carbon Dioxide 24 Anion Gap 12 BUN 76 H Creatinine 2.59 H Estim Creat Clear Calc 21.9 Estimated GFR 19 POC Glucose 299 H 292 H Random Glucose 344 H Calcium 8.5 Discharge Plan Discharge Anticipated Discharge Date/Time: 07/13/24 12:11 Patient Disposition: Home Health Service Discharge Diagnosis: chf , copd ,mild hyperkalemia , dillon on ckd. Referrals: [facility] [Outside] - 1 Week Neelima Hurtado MD [Primary Care Provider] - 1 Week Discharge Medications: New Lokelma 10 gram powder in packet 10 g PO DAILY Qty: 30 0RF prednisone 20 mg Tablet 40 mg PO DAILY Qty: 6 0RF Continued aspirin 81 mg tablet,delayed release (DR/EC) 1 tab PO DAILY (DME) FreeStyle Test Strip See Rx Instructions .Route Qty: 100 0RF Rx Instructions: As directed amlodipine 10 mg Tablet 10 mg PO DAILY Qty: 30 0RF Protocol: Hold for SBP< HOLD for SBP < : 90 lactulose 10 gram/15 mL solution 10 g PO BID PRN (Reason: constipation) Qty: 473 0RF gabapentin 100 mg capsule 100 mg PO BEDTIME ondansetron HCl 4 mg tablet 4 - 8 mg PO Q8H PRN (Reason: nausea/vomiting) insulin glargine [Lantus U-100 Insulin] 100 unit/mL solution 8 unit subcut BEDTIME furosemide 20 mg tablet 20 mg PO DAILY omeprazole 40 mg capsule,delayed release(DR/EC) 40 mg PO DAILY@0630 ferrous sulfate 324 mg (65 mg iron) tablet,delayed release (DR/EC) 324 mg PO DAILY Discharge Orders: Discharge Order (Routine); Ordered 07/15/24 Ordered By: Azeem Kate Diet: Advance to usual diet Activity on Discharge: As tolerated Stand Alone Forms: Patient Portal Discharge page Print Language: Citizen Of [place] Care Plan Goals: Acute on chronic respiratory failure due to acute on chronic congestive heart failure and mild COPD exacerbation: Patient was found to have increased oxygen requirement, BNP elevated, chest x-ray showed low lung effusion but WBC normal, no fever no cough no phlegm-less likely pneumonia. Patient was started on nebs, steroids, IV Lasix: Patient seems to be improved significantly with the above, fluid balance negative 2.8 L. Patient will be going home with steroids, continue home Lasix, CHF education given. Patient still have bilateral effusion x-ray but discussed with the Pulmonary: Since respiratory status is due to improved, no need for thoracentesis. In addition patient had DILLON over CKD: Likely related to over diuresis. Renal function seems to be improved by holding diuretics. Discussed with Nephrology: Recommended to start home dose of Lasix, CHF education given. Mild hyperkalemia probably related to DILLON on CKD-seems to be resolved with Lokelma. Patient is going to be on Lasix, Repeat BMP in 1 week. Patient is to follow-up with PCP and Nephrology, Pulmonary outpatient. Patient also need to follow-up BMP outpatient. Health Concerns: As above. Plan of Treatment: Complete prednisone 40 mg daily for 3 days. Continue home dose of Lasix, CHF education given. Follow up with his Pcp, Nephrology,pulmonary outpatient Assessment: as above.
--- NOTE | 2024-07-15 11:37 | MHC.CM.PN ---
Patient has been medically cleared for dc to home today, with services. Patient is active with [facility], who has been notified of today's dc.
--- NOTE | 2024-07-15 14:47 | MHC.CM.PN ---
Addendum entered by Christie Scott 07/15/24 14:57: CM spoke with Son/HCP/Bin at listed #, who confirmed that he will be available to accept Patient from the ambulance today. Original Note: Patient will dc to home today at 5PM, via [facility]. MD & RN are aware.
[2024-07-15 16:04] LABS: Glucose, Whole Blood 301 mg/dL (60-115)
[2024-07-15 16:20] VITALS: BP 121/75; PULSE 83; RESP 16; TEMP 36.2; O2SAT 97
== END 2024-07-15 17:59 | disposition home health service (06) | DRG 194 ==
LOC: HO.ED 18:21 → HO.EDOVER 22:37 → HO.IMC 07-08 07:08
PROVIDERS: Internal Medicine; Admitting Provider Physician Assistant; Emergency Provider Student in an Organized Health Care Education/Training Program; PCP Internal Medicine; Visit Provider Internal Medicine
DX: I13.0 Hypertensive heart and chronic kidney disease with heart failure and stage 1 through stage 4 chronic kidney disease, or unspecified chronic kidney disease (principal); J96.21 Acute and chronic respiratory failure with hypoxia; N17.9 Acute kidney failure, unspecified; J44.1 Chronic obstructive pulmonary disease with (acute) exacerbation; E78.5 Hyperlipidemia, unspecified; E11.22 Type 2 diabetes mellitus with diabetic chronic kidney disease; Z99.81 Dependence on supplemental oxygen; D63.1 Anemia in chronic kidney disease; I50.43 Acute on chronic combined systolic (congestive) and diastolic (congestive) heart failure; E11.65 Type 2 diabetes mellitus 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; E87.5 Hyperkalemia; N18.30 Chronic kidney disease, stage 3 unspecified; Z20.822 Contact with and (suspected) exposure to COVID-19; Z79.4 Long term (current) use of insulin; Z79.82 Long term (current) use of aspirin; Z79.899 Other long term (current) drug therapy
CPT/HCPCS: 0241U; 36415; 71045; 80048; 80076; 81001; 82803; 82947; 83605; 83690; 83880; 84132; 84484; 85014; 85018; 85025; 85730; 87086; 87633; 93005; 99285; J0613; J1940; J2919

== ENCOUNTER → 2024-07-07 16:59 | Outpatient (BNV) | payer MEDICAID, SELFPAY | PROVIDERS: Admitting Provider Physician Assistant; Emergency Provider Student in an Organized Health Care Education/Training Program; PCP Internal Medicine; Visit Provider Internal Medicine Cardiovascular Disease | DX: R94.31 Abnormal electrocardiogram [ECG] [EKG] (principal); R07.9 Chest pain, unspecified | CPT/HCPCS: 93010 ==

== ENCOUNTER → 2024-07-07 17:00 | Outpatient (BNV) | payer MEDICAID, SELFPAY | PROVIDERS: Emergency Provider Student in an Organized Health Care Education/Training Program; PCP Internal Medicine; Visit Provider Radiology Diagnostic Radiology | DX: J90 Pleural effusion, not elsewhere classified (principal) | CPT/HCPCS: 71045 ==

== ENCOUNTER 2024-07-07 21:16 | Outpatient (BNV) | payer MEDICAID, SELFPAY | END 2024-07-10 09:03 | PROVIDERS: Admitting Provider Physician Assistant; Emergency Provider Student in an Organized Health Care Education/Training Program; PCP Internal Medicine; Visit Provider Radiology Diagnostic Radiology | DX: J90 Pleural effusion, not elsewhere classified (principal) | CPT/HCPCS: 71045 ==

== ENCOUNTER → 2024-07-07 21:16 | Outpatient (BNV) | payer MEDICAID, SELFPAY | PROVIDERS: Admitting Provider Physician Assistant; Emergency Provider Student in an Organized Health Care Education/Training Program; PCP Internal Medicine; Visit Provider Hospitalist | DX: J44.1 Chronic obstructive pulmonary disease with (acute) exacerbation (principal); J96.21 Acute and chronic respiratory failure with hypoxia; I50.43 Acute on chronic combined systolic (congestive) and diastolic (congestive) heart failure | CPT/HCPCS: 99223 ==

== ENCOUNTER → 2024-07-07 21:16 | Outpatient (BNV) | payer MEDICAID, SELFPAY | PROVIDERS: Admitting Provider Physician Assistant; Emergency Provider Student in an Organized Health Care Education/Training Program; PCP Internal Medicine; Visit Provider Physician Assistant | DX: J44.1 Chronic obstructive pulmonary disease with (acute) exacerbation (principal) | CPT/HCPCS: 99223; 99231; 99232; 99239 ==

== ENCOUNTER → 2024-07-07 21:16 | Outpatient (BNV) | payer MEDICAID, SELFPAY | PROVIDERS: Admitting Provider Physician Assistant; Emergency Provider Student in an Organized Health Care Education/Training Program; PCP Internal Medicine; Visit Provider Internal Medicine Nephrology | DX: N17.9 Acute kidney failure, unspecified (principal); N18.9 Chronic kidney disease, unspecified | CPT/HCPCS: 99223; 99232 ==

== ENCOUNTER 2024-07-24 14:46 | Outpatient (REF) | payer MEDICAID, SELFPAY ==
[2024-07-24 16:22] LABS: MANUAL DIFF FLAG NO
[2024-07-24 16:29] LABS: Basophils Percent Auto 0.2 % (0-2); Eosinophils Absolute Auto 0.2 X10*3/uL (0.0-0.4); Eosinophils Percent Auto 1.7 % (0-4); Hematocrit 24.5 % (37.0-47.0); Hemoglobin 8.4 g/dl (12.0-16.0); Imm Gran Abs Auto 0.06 X10*3/uL (0.00-0.03); Imm Gran Pct Auto 0.5 % (0.0-0.4); Lymphocytes Absolute Auto 2.5 X10*3/uL (1.2-4.9); Lymphocytes Percent Auto 18.9 % (20-40); Mean Corpuscular HGB Conc 34.3 g/dl (31.0-35.0); Mean Corpuscular Hemoglobin 29.4 pg (27.0-33.0); Mean Corpuscular Volume 85.7 fL (80.0-98.0); Mean Platelet Volume 9.1 fL (9.4-12.3); Monocytes Absolute Auto 0.6 X10*3/uL (0.1-1.2); Monocytes Percent Auto 4.8 % (2-11); Neutrophils Absolute Auto 9.8 x10*3/uL (2.0-8.3); Neutrophils Percent Auto 73.9 % (45-73); Platelet Count 224 X10*3/uL (160-400); Red Blood Count 2.86 X10*6/uL (4.20-5.50); Red Cell Distribution Width 14.6 % (11.0-16.0); White Blood Count 13.3 X10*3/uL (4.8-10.8)
[2024-07-24 17:28] LABS: Anion Gap 10 (12-20); Blood Urea Nitrogen 44 mg/dL (9-16); Calcium 8.7 mg/dL (8.4-10.2); Carbon Dioxide 26 mmol/L (22-29); Chloride 110 mmol/L (96-108); Cholesterol 239 mg/dL (<200); Estimated Glomerular Filt Rate 24; Glucose Random 94 mg/dL (60-115); HDL Cholesterol 52 mg/dL (>40); LDL Cholesterol Calculated 133 mg/dL (<100); Potassium 3.6 mmol/L (3.3-5.1); Sodium 142 mmol/L (135-145); Triglycerides 274 mg/dL (<150)
[2024-07-24 17:42] LABS: Alanine Aminotransferase 22 U/L (0-31); Alkaline Phosphatase 71 U/L (39-117); Anion Gap 11 (12-20); Aspartate Amino Transferase 21 U/L (5-31); Bilirubin Direct < 0.2 mg/dL (0.0-0.5); Bilirubin Total 0.2 mg/dL (0.0-1.0); Blood Urea Nitrogen 42 mg/dL (9-16); Calcium 8.6 mg/dL (8.4-10.2); Carbon Dioxide 25 mmol/L (22-29); Chloride 111 mmol/L (96-108); Estimated Glomerular Filt Rate 26; Glucose Random 94 mg/dL (60-115); Iron 36 mcg/dL (30-160); Percent Iron Saturation 20 % (15-50); Potassium 3.5 mmol/L (3.3-5.1); Sodium 143 mmol/L (135-145); Total Iron Binding Capacity 180 mcg/dL (228-428); Total Protein 6.7 g/dL (6.5-8.0); Unsaturated Iron Binding 144 ug/dL
[2024-07-24 17:43] LABS: Ferritin 434 ng/mL (10-250); TSH reflex Free T4 2.32 uIU/mL (0.32-4.0)
[2024-07-24 17:56] LABS: Folate 15.1 ng/mL (> or = 4.0); Vitamin B12 439 pg/mL (200-900)
[2024-07-24 18:14] LABS: Reflex LDLD? No
[2024-07-26 18:19] LABS: RPR Rapid Plasma Reagin NON-REACTIVE (NON-REACTIVE)
== END 2024-07-24 14:47 | disposition home or self-care (01) ==
LOC: HO.HHCL 14:46
PROVIDERS: Student in an Organized Health Care Education/Training Program; Visit Provider Internal Medicine
DX: E87.6 Hypokalemia (principal); D64.9 Anemia, unspecified; R68.89 Other general symptoms and signs; I50.9 Heart failure, unspecified; E87.5 Hyperkalemia
CPT/HCPCS: 36415; 80048; 80061; 80076; 82607; 82728; 82746; 83540; 84443; 85025; 86592

== ENCOUNTER 2024-07-28 11:29 | Outpatient (REF) | payer MEDICAID, SELFPAY ==
[2024-07-28 13:34] LABS: Appearance Urine Turbid; Color Urine Yellow; Glucose Urine UA Negative (Negative); Leukocyte Esterase Urine Large (3+) (Negative); Nitrite Urine Negative (Negative); UMIC TRIGGER UACC YES; Urine Blood Small (1+) (Negative); Urine Ketones Negative (Negative); Urine Protein 300 (3+) mg/dL (Neg-Trace)
[2024-07-28 13:54] LABS: Bacteria Urine 4+ (None Seen); Hyaline Casts Urine 0-2 /LPF (0-2); RBC Urine 0-2 /HPF (0-2); UACC Culture Trigger YES; WBC Urine >50 /HPF (0-5)
--- OUTSIDE RECORDS SUMMARY | 2024-07-28 14:14 | XMS_ITS ---
Author Organization [facility] Care Team Providers Care Platinum Smith Name Role Phone Cande Sheppard Unavailable Unavailable Margaret Romero Unavailable Unavailable Laura Erickson Unavailable Unavailable Allergies and adverse reactions Code CodeSystem Substance Reaction Severity StartDate Concern Status Shrimp Unknown 07/24/2022 active Care Team Name Role Address Phone Organization Dates Margaret Romero PCP [address] [address], [place], [address], [place] (Office): : [facility] 07/24/2022 - 08/20/2022 [place], [address], [facility] (Office): : [facility] 07/24/2022 - 08/20/2022 Laura Erickson Attending Physician [address] [place] [address], [place], [address], [place] (Office): : [facility] 07/24/2022 - 08/20/2022 Medications Section Medication Name Status Code CodeSystem Dose Route Frequency Admin Type Sig Text Start Date End Date metFORMIN HCl Oral Tablet 1000 MG active 981846 RXNORM 1 tablet Oral every morning and at bedtime Routine Give 1 tablet by mouth every mornin g and at bedtim e for DM 2022 - Aspirin Oral Tablet Chewable 81 MG active 079196 RXNORM 1 tablet Oral one time a day Routine Give 1 tablet by mouth one time a day for cad 2022 - Ferrous Sulfate Oral Tablet 325 (65 Fe) MG active 753694 RXNORM 1 tablet Oral one time a day Routine Give 1 tablet by mouth one time a day for anemia 2022 - Insulin Lispro Injection Solution 100 UNIT/ML active 388675 RXNORM n/a n/a Subcuta neous before meals Routine Inject as per slidin g scale: if 151 - 200 = 10 units; 201 - 250 = 12 units; 251 - 300 = 14 units; 301 - 350 = 16 units; 351 - 999 = 18 units call md for BS <60 or >350, subcut aneous ly before meals for DM 2022 - Acetaminophen Oral Tablet 325 MG active 241767 RXNORM 1 tablet Oral as needed PRN Give 1 tablet by mouth every 24 hours as needed for pain 2022 - Glutose 45 Gel 40 % active 7302790 RXNORM 1 dose Oral as needed PRN Give 1 dose by mouth as needed for hypogl ycemic protoc ol Give one tube PO/SL if FSBS <50 and able to swallo w PRN. Rechec k FSBS 10 minute s after admini strati on and call provid er. 2022 - GlucaGen HypoKit Solution Reconstituted 1 MG active 865999 RXNORM 1 mg Subcuta neous as needed PRN Inject 1 mg subcut aneous ly as needed for hypogl ycemic protoc ol Specia l instru ctions : Glucag en 1 mg hypoki t subcut aneous if FSBS below 60 and unable to swallo w. R echeck FSBS in 10 minute s and update provid er. 2022 - Lisinopril Oral Tablet 5 MG active 874810 RXNORM 1 tablet Oral one time a day Routine Give 1 tablet by mouth one time a day for HTN hold for SBP <90 2022 - Atorvastatin Calcium Oral Tablet 80 MG active 953854 RXNORM 1 tablet Oral at bedtime Routine Give 1 tablet by mouth at bedtim e for hld 2022 - Pioglitazone HCl Oral Tablet 30 MG active 300608 RXNORM 1 tablet Oral one time a day Routine Give 1 tablet by mouth one time a day for DM 2022 - Vitamin D Tablet active 1000 unit Oral one time a day Routine Give 1000 unit orally one time a day for Supple ment 2022 - Melatonin Oral Tablet 5 MG active 942523 RXNORM 1 tablet Oral at bedtime Routine Give 1 tablet by mouth at bedtim e for Supple ment 2022 - Vitamin B12 Oral Tablet Extended Release 1000 MCG active 858490 RXNORM 1 tablet Oral one time a day Routine Give 1 tablet by mouth one time a day for Supple ment 2022 - Lantus SoloStar Subcutaneous Solution Pen-injector 100 UNIT/ML active 185672 RXNORM 23 unit Subcuta neous at bedtime Routine Inject 23 unit subcut aneous ly at bedtim e for DM 2022 - Ondansetron HCl Oral Tablet 4 MG active 214938 RXNORM 1 tablet Oral as needed PRN Give 1 tablet by mouth every 8 hours as needed for nausea and vomiti ng 2022 - Mental Status Section Date Assessment Total Score Description 08/20/2022 BIMS 13 cognitively int act CAM 0 No delirium ind icated PHQ-9 01 minimal depress ion 08/02/2022 BIMS 13 cognitively int act CAM 0 No delirium ind icated PHQ-9 00 Problems Problem # Description Date of onset Resolved Date Code CodeSystem Concern Status 1 ACUTE RESPIRATORY FAILURE WITH HYPOXIA 07/24/[address] active 2 DEGENERATIVE MYOPIA, BILATERAL 07/24/[address] active 3 DEPRESSION, UNSPECIFIED 07/24/[address] active 4 HYPERLIPIDEMIA, UNSPECIFIED 07/24/[address] active 5 IRON DEFICIENCY 07/24/[address] ac tive 6 OBESITY, UNSPECIFIED 07/24/[address] active 7 OTHER IRON DEFICIENCY ANEMIAS 07/24/[address] active 8 OTHER LACK OF COORDINATION 07/24/[address] active 9 PNEUMONIA, UNSPECIFIED ORGANISM 07/24/[address] active 10 SYNCOPE AND COLLAPSE 07/24/[address] active 11 TYPE 2 DIABETES MELLITUS WITHOUT COMPLICATIONS 07/24/[address] active 12 UNSPECIFIED LACK OF COORDINATION 07/24/[address] active 13 URINARY TRACT INFECTION, SITE NOT SPECIFIED 07/24/[address] active 14 WEAKNESS 07/24/[address] active Reason for Referral No Reasons for Referral Entered Social History Social History Observation Description Start Date End Date Code Code System Current Smoking Status Tobacco smoking consumption unknown 738786933 SNOMED CT Sex Assigned At Female 1970 01368-2 [facility] Vital Signs Code Code System Vitals Name Values and Units Timing Information 2339-0 [facility] Blood Sugar Meczj=392.0 Units=mg/dL 08/20/2022 8462-4 [facility] Blood Pressure-Diastolic Value=70 Un its=mmHg 08/20/2022 8480-6 [facility] Blood Pressure-Systolic Hpqpz=407 Un its=mmHg 08/20/2022 31761-1 [facility] Pain Level Value=0.0 08/20/2022 8867-4 [facility] Heart rate Wzdwj=649.0 Units=/min 08/18/2022 55965-9 INC Weight Vxmjh=307.7 Units=Lbs 9279-1 [facility] Respiratory Rate Value=20.0 Units=/m in 07/25/2022 31981-0 [facility] O2 % BldC Oximetry Value=91.0 Units= % 07/25/2022 8310-5 [facility] Body Temperature Value=97.5 Units=?? F 07/24/2022 8302-2 [facility] Height Value=66.0 Units=Inches 07/24/2022
--- OUTSIDE RECORDS SUMMARY | 2024-07-28 14:14 | XMS_ITS | Encounter Summary ---
Author Organization [employer] [facility] Address [address] [place] [address] [address] [place] [address] Care Team Providers Care Street Light Servicer Helper Name Role Phone Neelima Brown MD Primary Care Provide r Encounter Details Date Type Department Care Team (Late Contact Info) Description 11/14/[address] [facility] MEDICINE [address] [place], [place] [phone] Neelima Brown MD [address] [place] [address] Social History Tobacco Use Types Packs/Day Years [...] for VNA services. Please contact ezequiel at [phone] Fax number: [phone] documented in this encounter Plan of Treatment Upcoming Encounters Date Type Department Care Team (Late st Contact Info) Description 09/25/2024 2:30 PM EDT Office Visit [facility] MEDICINE [address] [place], [place] [phone] Neelima Brown MD [address] [place] [address] documented as of this encounter Visit Diagnoses Not on filedocumented in this encounter Care Teams Street Light Servicer Helper Relationship Specialty Start Date End Date Neelima Brown MD [address] [place] [address] PCP - General Family Medicine 01/15/18 Yara Salas Fabrication Welder 07/01/23 09/27/23 Nolvia Delgado Fabrication WelderNutrition Assistant 08/29/23 Dixon ARCHIBALD 03/05/24 documented as of this encounter
--- OUTSIDE RECORDS SUMMARY | 2024-07-28 14:15 | XMS_ITS | Encounter Summary ---
Author Organization [employer] Address [address] [place] [address] [address]t [place] [address] Care Team Providers Care Shuttle Buggy Operator Name Role Phone Neelima Brown MD Primary Care Provide r Reason for Visit * Reason Comments Transition Of Care (Tcm) HDF unscheduled Encounter Details Date Type Department Care Team (Late st Contact Info) Description 07/16/2024 Patient Outreach [facility] MEDICINE [address] [place], [place] [phone] Neelima Brown MD [address] [place], [place] [phone] Transition Of Care (Tcm) (HDF unscheduled) Social History Tobacco Use Types Packs/Day Years [...] as of this encounter Progress Notes * Joan Champion RN - 07/16/2024 9:45 AM EDT TC returned to [facility], provided verbal orders for pt.'s senior care and PT services. Informed [facility] that pt. Was contacted today to schedule HDF and declined documented in this encounter Miscellaneous Notes * Significant Event - Jade Bailey - 07/16/2024 9:48 AM EDT 07/16/24 0948 Hospital Discharges and Admission for [facility] Type of Visit Hospital Admission Date of Admission/Visit 07/07/24 Date of Discharge 07/15/24 [facility] Diagnosis Chronic respiratory failure Disposition Discharged Home Follow-Up Actions Follow-Up Needed Provider appointment Follow-Up Outcome Spoke to Patient Initial Contact Date 07/16/24 JIM Hansen placed outbound call to patient for HDF outreach. JIM placing call to offer patient with an HDF appointment with provider. Patient's name and were confirmed. Patient was educated on the importance of following up with provider following an inpatient admission. Patient offered an HDF appt. Patient declined to an appointment and will call if their presents to be a need. Patient provided with education on contacting the Health Center with any questions or concerns prior to the scheduled appointment. Patient educated on extended clinic hours on Mondays and Wednesdays, and Walk-In Urgent Care Located in [facility]. Patient provided with after-hours line for [facility], , which offer night time triage service and option to transfer to president financial institution provider if needed. [facility] discharge summary has been scanned into chart for review. documented in this encounter Plan of Treatment Upcoming Encounters Date Type Department Care Team (Late st Contact Info) Description 09/25/2024 2:30 PM EDT Office Visit [facility] MEDICINE [address] [place], [place] [phone] Neelima Brown MD [address] [place] [address] documented as of this encounter Goals Goal Patient Goal Type Associated Problems Recent Progress Patient-Stated? Author Eat breakfast every day Diet No Tami Liz, PharmD Note: Carbs, protein, fruits and veggies Take your medication every day Lifestyle On track( 023 4:40 PM EST) No Tami Liz, PharmD documented as of this encounter Visit Diagnoses Not on filedocumented in this encounter Additional Health Concerns Assessment Noted Time PHQ-9 Depression Total Score: 0 02/29/20 23 1:01 PM EDT documented as of this encounter Care Teams Shuttle Buggy Operator Relationship Specialty Start Date End Date Neelima Brown MD [address] [place] [address] PCP - General Family Medicine 01/15/18 Nolvia Delgado Artist Mannequin ColoringStructural Technician 08/29/23 Dixon ARCHIBALD 03/05/24 documented as of this encounter
--- OUTSIDE RECORDS SUMMARY | 2024-07-28 14:15 | XMS_ITS | Encounter Summary ---
Author Organization [facility] Address [address] [place] [address] Care Team Providers Care Environmental Conservation Professor Name Role Phone Mckenzie Hernandez MD Primary Care Provider [phone] Encounter Details Date Type Department Care Team (Late st Contact Info) Description 05/11/2024 Lab Requisition [facility] - Main Lab [address] [facility] [place] [address] Mckenzie Hernandez MD [address] [place] [address] Hyperkalemia Social History Tobacco Use Types Packs/Day [...] LAB CHEMISTRY METHOD 05/11/2024 2:58 PM EST [facility] Potassium 5.5 3.5 - 5.5 mmol/L LAB CHEMISTRY METHOD 05/11/2024 2:58 PM EST [facility] Chloride 107 96 - 110 mmol/L LAB CHEMISTRY METHOD 05/11/2024 2:58 PM EST [facility] CO2 25 21 - 32 mmol/L LAB CHEMISTRY METHOD 05/11/2024 2:58 PM [facility] Anion Gap 4 3 - 11 LAB CHEMISTRY METHOD 05/11/2024 2:58 PM [facility] Glucose 215(H) 70 - 100 mg/dL LAB CHEMISTRY METHOD 05/11/2024 2:58 PM [facility] BUN 40(H) 5 - 25 mg/dL LAB CHEMISTRY METHOD 05/11/2024 2:58 PM [facility] Creatinine 2.52(H) 0.50 - 1.10 mg/dL LAB CHEMISTRY METHOD 05/11/2024 2:58 PM [facility] eGFR 22(L) >=60 mL/min/1. 73m2 LAB CHEMISTRY METHOD 05/11/2024 2:58 PM [facility] Comment:Calculation based on the??Chronic Kidney Disease Epidemiology Collaboration (CKD-EPI) equation refit??without adjustment for race. BUN/Creatinine Ratio 15.9 LAB CHEMISTRY METHOD 05/11/2024 2:58 PM [facility] Calcium 8.3(L) 8.5 - 10.5 mg/dL LAB CHEMISTRY METHOD 05/11/2024 2:58 PM [facility] Blood Venous blood specimen / Unknown Venipuncture / Unknown 05/11/2024 12:35 PM EST 05/11/2024 1:57 PM EST us Mckenzie Hernandez MD LAB BLOOD ORDERABLES Final Resu lt [facility] [address] [place] [address], documented in this encounter Visit Diagnoses Diagnosis Hyperkalemia Hyperpotassemia documented in this encounter Care Teams Environmental Conservation Professor Relationship Specialty Start Date End Date Mckenzie Hernandez MD [address] [place] [address] PCP - General Hospitalist Medicine 04/27/24 documented as of this encounter
--- OUTSIDE RECORDS SUMMARY | 2024-07-28 14:15 | XMS_ITS | Encounter Summary ---
Demographics Address [address] [place] [address] Mobile Phone Email Address Preferred Language es Marital Status Single Taoist Affiliation Unknown Race Other Race Ethnic Group or Author Organization [employer] Address [address] [place] [address] 7t [place] [address] Care Team Providers Care Keeper Helper Name Role Phone Neelima Brown MD [...] Description 09/25/2024 2:30 PM EDT Office Visit [facility] MEDICINE [address] [place] [address] Neelima Brown MD [address] [place] [phone] documented as of this encounter Goals Goal [...] documented as of this encounter Care Teams Keeper Helper Relationship Specialty Start Date End Date Neelima Brown MD [address] [place] [address] PCP - General Family Medicine 01/15/18 Nolvia Delgado Charm Filter Operator HelperWarehouse And Receiving Supervisor 08/29/23 Dixon ARCHIBALD 03/05/24 documented as of this encounter
--- OUTSIDE RECORDS SUMMARY | 2024-07-28 14:15 | XMS_ITS | Encounter Summary ---
Author Organization [facility] Address [address] [place] [address] Care Team Providers Care Plating Operator Name Role Phone Mckenzie Hernandez MD Primary Care Provider [phone] Encounter Details Date Type Department Care Team (Late st Contact Info) Description 05/11/2024 Lab Requisition [facility] - Main Lab [address] [facility] [place] [address] Mckenzie Hernandez MD [address] [place] [address] Chronic kidney disease, unspecified Social History Tobacco [...] LAB CHEMISTRY METHOD 05/12/2024 11:14 AM EST [facility] Potassium 5.3 3.5 - 5.5 mmol/L LAB CHEMISTRY METHOD 05/12/2024 11:14 AM EST [facility] Chloride 109 96 - 110 mmol/L LAB CHEMISTRY METHOD 05/12/2024 11:14 AM [facility] CO2 24 21 - 32 mmol/L LAB CHEMISTRY METHOD 05/12/2024 11:14 AM [facility] Anion Gap 7 3 - 11 LAB CHEMISTRY METHOD 05/12/2024 11:14 AM [facility] Glucose 74 70 - 100 mg/dL LAB CHEMISTRY METHOD 05/12/2024 11:14 AM [facility] BUN 40(H) 5 - 25 mg/dL LAB CHEMISTRY METHOD 05/12/2024 11:14 AM [facility] Creatinine 2.43(H) 0.50 - 1.10 mg/dL LAB CHEMISTRY METHOD 05/12/2024 11:14 AM [facility] eGFR 23(L) >=60 mL/min/1. 73m2 LAB CHEMISTRY METHOD 05/12/2024 11:14 AM [facility] Comment:Calculation based on the??Chronic Kidney Disease Epidemiology Collaboration (CKD-EPI) equation refit??without adjustment for race. BUN/Creatinine Ratio 16.5 LAB CHEMISTRY METHOD 05/12/2024 11:14 AM [facility] Calcium 8.8 8.5 - 10.5 mg/dL LAB CHEMISTRY METHOD 05/12/2024 11:14 AM [facility] Blood Venous blood specimen / Unknown Venipuncture / Unknown 05/12/2024 6:38 AM EST 05/12/2024 9:54 AM EST us Mckenzie Hernandez MD LAB BLOOD ORDERABLES Final Resu lt [facility] [address] [place] [address], * (ABNORMAL) Complete blood count (05/12/2024 6:38 AM EST) WBC 6.2 4.8 - 10.8 K/mcL LAB HEMETOLOGY METHOD 05/12/2024 10:25 AM [facility] RBC 2.90(L) 3.80 - 4.80 M/[facility] LAB HEMETOLOGY METHOD 05/12/2024 10:25 AM [facility] Hemoglobin 8.3(L) 11.5 - 16.0 g/dL LAB HEMETOLOGY METHOD 05/12/2024 10:25 AM [facility] Hematocrit 25.6(L) 35.0 - 47.0 % LAB HEMETOLOGY METHOD 05/12/2024 10:25 AM [facility] MCV 89.2 79.0 - 98.0 FL LAB HEMETOLOGY METHOD 05/12/2024 10:25 AM [facility] MCH 28.9 27.0 - 32.0 pcg LAB HEMETOLOGY METHOD 05/12/2024 10:25 AM [facility] MCHC 32.4 32.0 - 37.0 g/dL LAB HEMETOLOGY METHOD 05/12/2024 10:25 AM [facility] RDW 15.0 11.0 - 15.0 % LAB HEMETOLOGY METHOD 05/12/2024 10:25 AM [facility] Platelets 166 130 - 400 K/[facility] LAB HEMETOLOGY METHOD 05/12/2024 10:25 AM [facility] MPV 8.5 7.0 - 11.0 FL LAB HEMETOLOGY METHOD 05/12/2024 10:25 AM [facility] NRBC 0.0 <1.0 % LAB HEMETOLOGY METHOD 05/12/2024 10:25 AM [facility] NRBC Absolute 0.00 <0.10 K/[facility] LAB HEMETOLOGY METHOD 05/12/2024 10:25 AM EST [facility] Blood Venous blood specimen / Unknown Venipuncture / Unknown 05/12/2024 6:38 AM EST 05/12/2024 9:56 AM EST us Mckenzie Hernandez MD LAB BLOOD ORDERABLES Final Resu lt Performing Organization Address City/State/[place]UST Co de Phone Number [facility] [address] [place] [address], documented in this encounter Visit Diagnoses Diagnosis Chronic kidney disease, unspecified documented in this encounter Care Teams Plating Operator Relationship Specialty Start Date End Date Mckenzie Hernandez MD [address] [place] [address] PCP - General Hospitalist Medicine 04/27/24 documented as of this encounter
--- OUTSIDE RECORDS SUMMARY | 2024-07-28 14:15 | XMS_ITS | Encounter Summary ---
Author Organization [employer] Address [address] [facility] 7t [place] [address] Care Team Providers Care Airport Operations Manager Name Role Phone Neelima Brown MD Primary Care Provide r Reason for Visit * Reason Comments Care Coordination Outreach Encounter Details Date Type Department Care Team (Latest Contact Info) Description 07/08/2024 Patient Outreach [facility] MED & PEDS [address] [place], [place] [phone] Neelima Brown MD [address] [place] [address] Care Coordination (Outreach) Social History Tobacco Use Types Packs/Day Years [...] as of this encounter Progress Notes * Annalisa Yang - 07/08/2024 2:18 PM EST CHW Annalisa Yang, placed outbound call to patient introducing herself from [facility], in regards to offering services. Patient's name and was confirmed. Patient son states patient was admitted yesterday. CHW will follow up within 5 days. documented in this encounter Plan of Treatment Upcoming Encounters Date Type Department Care Team (Late st Contact Info) Description 09/25/2024 2:30 PM EDT Office Visit [facility] MEDICINE [address] [place] [address] Neelima Brown MD [address] [place] [address] documented as of this encounter Goals Goal [...] documented as of this encounter Care Teams Airport Operations Manager Relationship Specialty Start Date End Date Neelima Brown MD [address] [place] [address] PCP - General Family Medicine 01/15/18 Nolvia Delgado Passenger Vessel ChefNeurosurgery Physician 08/29/23 Dixon ARCHIBALD 03/05/24 documented as of this encounter
--- OUTSIDE RECORDS SUMMARY | 2024-07-28 14:15 | XMS_ITS | Encounter Summary ---
Author Organization [facility] Address [address] [place] [address] Care Team Providers Care Insurance Risk Manager Name Role Phone Mckenzie Hernandez MD Primary Care Provider [phone] Encounter Details Date Type Department Care Team (Late st Contact Info) Description 05/12/2024 Lab Requisition [facility] - Main Lab [address] [facility] [place] [address] Mckenzie Hernandez MD [address] [place] [address] Hyperkalemia Social History Tobacco Use Types Packs/Day [...] Hyperpotassemia documented in this encounter Care Teams Insurance Risk Manager Relationship Specialty Start Date End Date Mckenzie Hernandez MD [address] [place] [address] PCP - General Hospitalist Medicine 04/27/24 documented as of this encounter
--- OUTSIDE RECORDS SUMMARY | 2024-07-28 14:15 | XMS_ITS | Encounter Summary ---
Author Organization [employer] Address [address] [facility] [address]t [place] [address] Care Team Providers Care Booth Operator Name Role Phone Neelima Brown MD Primary Care Provide r Reason for Visit * Reason Comments Care Coordination Outreach Encounter Details Date Type Department Care Team (Latest Contact Info) Description 07/17/2024 Patient Outreach [facility] MED & PEDS [address] [place], [place] [phone] Neelima Brown MD [address] [place] [address] Care Coordination (Outreach) Social History Tobacco Use [...] encounter Progress Notes * Annalisa Yang - 07/17/2024 2:38 PM EDT CHW Annalisa Yang, placed outbound call to patient in regards to offer services. CHW introducing herself from [facility] CM Department with CHW's name, department and direct contact number requesting call back. Will re-attempt to contact within 5 days. and address not confirmed. documented in this encounter Plan of Treatment Upcoming Encounters Date Type Department Care Team ([facility] st Contact Info) Description 09/25/2024 2:30 PM EDT Office Visit [facility] MEDICINE [address] [place] [address] Neelima Brown MD [address] [place] [address] documented as of this encounter Goals Goal [...] documented as of this encounter Care Teams Booth Operator Relationship Specialty Start Date End Date Neelima Brown MD [address] [place] [address] PCP - General Family Medicine 01/15/18 Nolvia Delgado Infection Control ManagerAssociate Professor Of Kinesiology 08/29/23 Dixon ARCHIBALD 03/05/24 documented as of this encounter
--- OUTSIDE RECORDS SUMMARY | 2024-07-28 14:15 | XMS_ITS | Encounter Summary ---
Author Organization [facility] Address [address] [place] [address] Care Team Providers Care [employer] Name Role Phone Mckenzie Hernandez MD Primary Care Provider [phone] Encounter Details Date Type Department Care Team (Late st Contact Info) Description 05/15/2024 Lab Requisition [facility] [address] [facility] [place] [address] Mckenzie Hernandez MD [address] [place] [id number] Hyperkalemia Social History Tobacco Use Types Packs/Day [...] LAB CHEMISTRY METHOD 05/18/2024 12:51 PM EST [facility] Potassium 5.7(H) 3.5 - 5.5 mmol/L LAB CHEMISTRY METHOD 05/18/2024 12:51 PM EST [facility] Chloride 108 96 - 110 mmol/L LAB CHEMISTRY METHOD 05/18/2024 12:51 PM EST [facility] CO2 26 21 [...] lt [facility] [address] [place] [address], documented in this encounter Visit Diagnoses Diagnosis Hyperkalemia Hyperpotassemia documented in this encounter Care Teams [employer] Relationship Specialty Start Date End Date Mckenzie Hernandez MD [address] [place] [id number] PCP - General Hospitalist Medicine 04/27/24 documented as of this encounter
--- OUTSIDE RECORDS SUMMARY | 2024-07-28 14:15 | XMS_ITS | Clinical Summary ---
Demographics Address [address] [place] [address] Mobile Phone Email Address Preferred Language es Marital Status Single Methodist Affiliation Unknown Race Other Race Ethnic Group or Author Organization [employer] Address [address] [place] [address] [address] [place] [address] Care Team Providers Care Medical Technologist Chemistry Name Role Phone Neelima Brown MD Primary [...] 023 Active Misc. Devices (Fingertip Pulse Oximeter) miscIndications :Orthostatic hypotension,Diz ziness 1 each Once daily. 1 each 024 Active gabapentin (Neurontin) 100 MG capsule TAKE 1 CAPSULE BY MOUTH EVERY DAY AT BEDTIME 024 Active ketoconazole (NIZOral) 2 % shampooIndicati ons:Seborrheic dermatitis Apply topically 2 (two) times a week. 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 90 tablet 3 Active omeprazole (PriLOSEC) [address] capsuleIndicati ons:Heartburn,N ausea and vomiting, unspecified vomiting type Take 1 capsule (40 mg) by mouth before breakfast. Do not crush or chew. 30 capsule 2 024 2024 Active amLODIPine (Norvasc) 10 MG tabletIndicatio ns:Hypertensive urgency TAKE 1 TABLET BY MOUTH EVERY DAY 90 tablet 1 Active lactulose (Chronulac) 10 GM/15ML solution Take 15 mL by mouth if needed in the morning and at bedtime (constipation). 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 Do not crush or chew. 30 tablet 2 025 2025 Active Lokelma 10 g packet MIX DIRECTED AND TAKE 1 PACKET DAILY DIRECTED Active furosemide (Lasix) 20 MG tablet Take 1 tablet by mouth Once per day. Active ferrous sulfate 324 (65 Fe) MG EC tabletIndicatio ns:Anemia, unspecified type TAKE 1 TABLET BY MOUTH EVERY OTHER DAY 45 tablet 1 025 Active sulfamethoxazol e-trimethoprim (Bactrim DS) 800-160 MG tabletIndicatio ns:UTI symptoms Take 1 tablet by mouth 2 times daily for 7 days. 14 tablet 025 2024 Active Blood Glucose Monitoring Suppl ([facility] AmericaStyle Cummings Lite) w/Device kitIndications: 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, with long-term current use of insulin ([facility]) Use to test blood sugar 2 times daily 1 kit 024 2024 Discontinued(M ed list cleanup (will not trigger notification to Pharmacy)) Lantus SoloStar 100 UNIT/ML penIndications: 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, unspecified whether [place] use ([facility]) INJECT 10 UNITS SUBCUTANEOUSLY once daily 3 mL 2 024 2024 Discontinued(R eorder (will not trigger notification to Pharmacy)) ferrous sulfate 324 MG EC tabletIndicatio ns:Anemia, unspecified type Take 1 tablet (324 mg) by mouth every other day. 15 tablet 2 024 2024 Discontinued furosemide (Lasix) 40 MG tablet Take 1 tablet by mouth Once per day. 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 30 tablet 1 025 2024 Active Problems Problem Noted Date Diagnosed Date UTI symptoms 07/21/2024 Assessment & Plan (07/21/2024 2:28 PM EDT): UA and culture ordered today, order is for the lab patient was not able to produce urine today, she will be contacted with results Pneumonia of both lungs due to infectious organi sm 06/29/2024 Assessment & Plan (06/29/2024 2:26 PM EST): Now resolved UTI (urinary tract infection) 06/29/2024 Assessment & Plan (06/29/2024 2:27 PM EST): Resolved now Acute kidney injury superimposed on CKD (CMS/HCC ) 06/29/2024 Assessment & Plan (06/29/2024 2:27 [...] mellitus 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 09/03 Assessment & Plan (07/21/2024 2:29 PM EDT): I will go up on her Lantus to 10 units and she is going to receive it at bedtime I advised to log her glucose in the a.m. fasting and also to check in the afternoon after her main meal Assessment & Plan (06/29/2024 2:29 PM EST): [...] condition. Essential hypertension 06/19/2022 Assessment & Plan (07/21/2024 2:30 PM EDT): I advised low-sodium diet and to take her medications every day without missing any dose I will add today [place] succinate 25 mg daily and I advised to continue with amlodipine 10 mg daily and her Lasix 40 mg daily I did not add an ARB/HOLGER because patient tends to have high potassium I advised to log her blood pressure for her next appointment and monitor for new medication side effects Assessment & Plan (03/20/2024 4:30 PM EST): [...] Encounters Date Type Department Care Team Description 07/28/2024 Orders Only [facility] [address] [place] [phone] Neelima Brown MD 07/28/[address] [address] Neelima Brown MD Durable Medical Equipment (Digital scale) 07/28/[address] [address] Neelima Brown MD Results 07/27/2024 Orders Only [address] [address] Neelima Brown MD UTI symptoms (Primary Dx) 07/24/2024 2:00 PM EDT Office Visit [address] [address] Lily Cortes NP Hospital discharge follow-up (Primary Dx); 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, with long-term current use of insulin (CMS/HCC); Serum potassium elevated; Acute on chronic congestive heart failure, unspecified heart failure type (CMS/HCC) 07/24/2024 Orders Only GENERIC EXTERNAL DATA DEPARTMENT Provider, Generic External Data 07/24/2024 Travel 07/23/2024 Patient Outreach [address] [address] Neelima Brown MD Care Coordination (Outreach) 07/23/[address] [address] Kesha Schroeder MA chartprep 07/22/[address] [address] Neelima Brown MD Anemia, unspecified type 07/21/2024 1:00 PM EDT Office Visit [facility] [address] [place] [phone] Neelima Brown MD UTI symptoms (Primary Dx); 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, 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 (CMS/HCC); Essential hypertension 07/21/[address] [address] Neelima Brown MD Nurse Triage 07/20/2024 2:00 PM EDT Office Visit [facility] OPTOMETRY [address] [place] [address] Nicole Brumfield, OD 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, associated with type 2 diabetes mellitus (CMS/HCC) (Primary Dx); Proliferative diabetic retinopathy of right eye associated with type 2 diabetes mellitus, unspecified proliferative retinopathy type (CMS/HCC); Combined forms of age-related cataract of both eyes; Presbyopia 07/20/2024 Travel 07/17/2024 Patient Outreach [facility] [address] [place] [address] Neelima Brown MD Care Coordination (Outreach) 07/17/2024 Population Health Risk Score [facility] () [address] [phone] Provider, Population Health Generic 07/16/2024 Patient Outreach [facility] MEDICINE [address] [place] [address] Neelima Brown MD Transition Of Care (Tcm) (HDF unscheduled) 07/15/2024 Telephone [facility] MEDICINE [address] [place] [phone] Neelima Brown MD Verbal Orders 07/08/2024 Patient Outreach [facility] [address] [place] [address] Neelima Brown MD Care Coordination (Outreach) 06/29/2024 1:00 PM EST Office Visit [facility] MEDICINE [address] [place] [address] Neelima Brown MD 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, with long-term current use of insulin (CMS/HCC) (Primary Dx); Congestive heart failure, unspecified HF chronicity, unspecified heart failure type (CMS/HCC); Pneumonia of both lungs due to infectious organism, unspecified part of lung; Urinary tract infection without hematuria, site unspecified; 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, 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 (CMS/HCC); Acute kidney injury superimposed on CKD ([facility]) ([facility]); Nausea; Diabetic polyneuropathy associated with type 2 diabetes mellitus ([facility]) 06/29/2024 Travel 06/24/2024 Telephone [facility] MEDICINE [address] [place] [phone] Neelima Brown MD Chart Prep 06/18/2024 Patient Outreach [address] [address] Neelima Brown MD SDOH Concerns (CHW SINDI Izquierdo PT1) 06/18/2024 Patient Outreach [facility] MEDICINE [address] [place] [phone] Neelima Brown MD Care Coordination (CHW outreach for SDOH PT-1 and food needs-referral completed /) 06/18/[address] [address] Neelima Brown MD PT1 06/17/2024 Refill [facility] MED & PEDS [address] [place] [address] Neelima Brown MD 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, unspecified whether [facility] insulin use ([facility]) 06/10/2024 Telephone [facility] MEDICINE [address] [place] [phone] Winifred Land RN HDF appointment 06/10/[address] [address] Fabienne Gonzalez MA Chart Prep 06/09/[address] [address] Neelima Brown MD PT1 06/04/2024 Patient Outreach [address] [address] Neelima Brown MD Transition Of Care (Tcm) (HDF- scheduled) 05/31/2024 Orders Only [facility] External Provider, [facility] 05/22/[address] [place] [address] Neelima Brown MD Medication Question 05/21/[address] [address] Neelima Brown MD verbal order 05/18/2024 Patient Outreach [address] [address] Neelima Brown MD Pre-visit Planning (HDF- Scheduled) from Last 3 Months Immunizations Name Administration [...] Date Recorded Patient Health Questionnaire-9 Score 0 07/24/2024 Patient Health Questionnaire-9 Score 0 07/24/2024 Last PHQ-9: Questionnaire Data Not on file 0 07/24/2024 Housing Stability Answer Date Recorded What is your housing situation today? I have yandeltheodora cruz 06/26/[address] you [...] Date Recorded Patient Health Questionnaire-2 Score 0 07/24/2024 Comments Unknown Sex and Gender Information Value Date Recorded Sex Assigned at Female 03/05/2022 10:14 AM EDT Legal Sex Female 10:14 AM EDT Gender Identity Female 03/05/2022 10:14 AM EDT Sexual Orientation Straight 03/05/2022 10 :14 AM EDT Last Filed Vital Signs Vital Sign Reading Time Taken Comments Blood Pressure 134/62 07/24/2024 2:34 PM EDT Pulse 78 07/24/2024 2:12 PM EDT Temperature 36.1 ??C (96.9 ??F) 07/24/2024 2:12 PM ED T Respiratory Rate 18 07/24/2024 2:12 PM EDT Oxygen Saturation 90% 07/24/2024 2:12 PM EDT Inhaled Oxygen Concentration - - Weight 65.9 kg (145 lb 3.2 oz) 07/24/2024 2:12 P M EDT Height 167.6 cm (5' 6 ) 07/24/2024 2:12 PM EDT Body Mass Index 23.44 07/24/2024 2:12 PM EDT Plan of Treatment Upcoming Encounters Date Type Department Care Team (Late st Contact Info) Description 09/25/2024 2:30 PM EDT Office Visit [facility] MEDICINE [address] [place] [address] Neelima Brown MD [address] [place] [address] Health Maintenance Due Date Last Done Comments CT Colonography 1969 Colonoscopy 1969 Colorectal Cancer Screening 1969 FIT DNA/Cologuard 1969 FIT 1969 FOBT 1969 HIV Screening 1969 Sigmoidoscopy 1969 Diabetes: Foot Exam 1979 Hepatitis C Screening 1987 Pap Smear 1990 Pneumococcal Vaccine: 50+ Years (2 of 2 - PCV) 04/16/2006 04/16/2005 Hepatitis B Vaccines (2 of 3 - 19+ 3-dose series) 08/27/2012 07/30/2012 DTaP/Tdap/Td Vaccines (2 - Td or Tdap) 08/22/2016 08/22/2006 Zoster Vaccines (1 of 2) 2019 Diabetes: Urine Protein Screening 11/20/2022 11/20/2021 Mammogram 07/18/2023 07/17/2021, 07/05, 07/29/2017 Cervical Cancer Screening 07/24/2023 HPV/Cotest 07/24/2023 07/23/2018 COVID-19 Vaccine ( season) 2024 Influenza Vaccine (#1) 2024 02/17/2015, 2011 SDOH Screening 06/26/2024 06/26/2023 Diabetes: Hemoglobin A1C 12/27/2024 025, 02/19/2024, 01/28/2024, Additional history exists Eye Exam 07/20/2025 07/20/2024, 07/04, 07/20/2024, Additional history exists Alcohol/Substance Use Screening 07/24/2025 07/24/2024 Depression Screening 07/24/2025 07/24/2024, 07/25/19 25 Lipid Panel 07/24/2025 07/24/2024, 11/03, 02/10/2020 Tobacco Screening 07/24/2025 07/24/2024 RSV Patients and Patients Aged 60 years [...] 023 4:40 PM EST) Tami Short PharmD Procedures Procedure Name Priority Date/Time Associated Diagnosis Comments URINALYSIS, COMPLETE, WITH REFLEX TO CULTURE Routine 07/28/2024 10:30 AM EDT URINALYSIS WITH REFLEX MICROSCOPIC Routine 07/28/2024 10:30 AM EDT UTI symptoms BASIC METABOLIC PANEL Routine 07/24/2024 2:50 PM EDT BASIC METABOLIC PANEL Routine 07/24/2024 2:50 PM EDT Hyperkalemia HEPATIC FUNCTION PANEL Routine 2:50 PM EDT Forgetfulness TSH W/REFLEX TO FT4 Routine 07/24/2024 2 :50 PM EDT Forgetfulness RPR (MONITOR) W/REFL TITER Routine 07/24/2024 2:50 PM EDT Forgetfulness FERRITIN Routine 07/24/2024 2:50 PM EDT Anemia, unspecified type IRON AND TOTAL IRON BINDING CAPACITY Routine 07/24/2024 2:50 PM EDT Anemia, unspecified type VITAMIN B12/FOLATE, SERUM PANEL Routine 07/24/2024 2:50 PM EDT Anemia, unspecified type LIPID PANEL WITH REFLEX TO DIRECT LDL Routine 07/24/2024 2:50 PM EDT Congestive heart failure, unspecified HF chronicity, unspecified heart failure type (CMS/HCC) CBC WITH AUTO DIFFERENTIAL Routine 07/24/2024 2:50 PM EDT Anemia, unspecified type POCT GLUCOSE Routine 07/24/2024 2:21 PM EDT 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, with long-term current use of insulin ([facility]) POCT GLYCATED HEMOGLOBIN, TOTAL Routine 06/29/2024 1:15 PM EST 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, with long-term current use of insulin ([facility]) POCT GLUCOSE Routine 06/29/2024 1:14 PM EST 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, with long-term current use of insulin ([facility]) XR CHEST 1 VIEW Routine 06/01/2024 9:30 AM EST US THORACENTESIS Routine 06/01/2024 9:00 AM EST ALBUMIN, RANDOM URINE W/CREATININE Routine 11/20/2021 2:21 PM EDT MAMMOGRAM GENERIC Routine 07/17/2021 2:1 0 PM EDT ZZZ HISTORICAL HPV MRNA E6/E7 Routine 07/23/2018 11:16 AM EDT from Last 3 Months or Most Recently Relevant to Health Maintenance Results * (ABNORMAL) Urinalysis, Complete, with Reflex to Culture (07/28/2024 10:30 AM EDT) Color Urine Yellow [facility] Appearance Urine Turbid [facility] PH 8.0 5.0 - 9.0 [facility] Glucose Urine UA Negative Negative mg/dL [facility] Urine Blood Small (1+)(A) Negative [facility] Specific [place] - Urine 1.010 1.005 - 1.025 [facility] Urine Protein 300 (3+)(A) Neg-Trace mg/dL [facility] Urine Ketones Negative Negative mg/dL [facility] Nitrite Urine Negative Negative [facility] Leukocyte Esterase Urine Large (3+)(A) Negative [facility] RBC Urine 0-2 0 - 2 /HPF [facility] Urine WBC >50(A) 0 - 5 /HPF [facility] Urine Squamous Epithelial Cell 6-10 0 - 2 /HPF [facility] Urine Bacteria 4+ None Seen [facility] Hyaline Casts, Urine 0-2 0 - 2 /LPF [facility] 07/28/2024 10:3 0 AM EDT 07/28/2024 1:05 PM EDT Narrative [facility] - 07/28/2024 2:05 PM EDT Urine, Clean Catch us Neelima Gómez MD LAB URINE ORDERABLES Final Result Performing Organization Address City/[facility]/ZIP Co de Phone Number [facility] [address] [place] [phone] * (ABNORMAL) Urinalysis with reflex microscopic (07/28/2024 10:30 AM EDT) Color Urine Yellow [facility] Appearance Urine Turbid [facility] PH 8.0 5.0 - 9.0 [facility] Glucose Urine UA Negative Negative mg/dL [facility] Urine Blood Small (1+)(A) Negative [facility] Specific [place] - Urine 1.010 1.005 - 1.025 [facility] Urine Protein 300 (3+)(A) Neg-Trace mg/dL [facility] Urine Ketones Negative Negative mg/dL [facility] Nitrite Urine Negative Negative [facility] Leukocyte Esterase Urine Large (3+)(A) Negative [facility] Urine (Urine, Random) 07/28/2024 10:30 AM EDT 07/28/2024 1:05 PM EDT Narrative [facility] - 07/28/2024 1:34 PM EDT Urine, Clean Catch us Neelima Gómez MD LAB URINE ORDERABLES Final Result [facility] [address] [place] [phone] * Vitamin B12/Folate, Serum Panel (07/24/2024 2:50 PM EDT) Pathologist [facility] Vitamin B12 439 200 - 900 pg/mL [facility] Comment:NORMAL 200-900 PG/ML INDETERMINATE 160-199 PG/ML DEFICIENT < 160 PG/ML Folate 15.1 > or = 4.0 ng/mL [facility] Comment:Reference Values:> o r = 4.0 ng/mL< 4.0 ng/mL suggests folate deficiency Methotrexate, aminopterin and folinic acid(leucovorin) are chemotherapeutic agents whose molecularstructures are similar to folate; therefore, the Architectfolate assay cannot be used for patients using these drugs. Blood Venous blood specimen / Unknown 07/24/2024 2:50 PM EDT 07/24/2024 4:16 PM EDT us Neelima Gómez MD LAB BLOOD ORDERABLES Final Result [facility] [address] [place] [phone] * TSH with Reflex to Free T4 (07/24/2024 2:50 PM EDT) [facility] [place] TSH reflex Free T4 2.32 0.32 - 4.0 uIU/mL [facility] Blood 07/24/2024 2:50 PM EDT 07/24/2024 4:16 PM EDT us Neelima Gómez MD LAB BLOOD ORDERABLES Final Result [facility] [address] [place] [phone] * (ABNORMAL) Lipid Panel with Reflex to Direct LDL (07/24/2024 2:50 PM EDT) [facility] [place] Triglycerides 274(H) <150 mg/dL [facility] Comment:Desirable Triglyceri de: less than 150 mg/dLBorderline High Triglyceride 150-199 mg/dLHigh Triglyceride: 200-499 mg/dLVery High Triglyceride: greater than or equal to 5OO mg/dL Cholesterol 239(H) <200 mg/dL [facility] Comment:Desirable Cholestero l: less than 200 mg/dLBorderline High Cholesterol: 200-239 mg/dLHigh Cholesterol: greater than 239 mg/dL LDL Cholesterol Calculated 133(H) <100 mg/dL [facility] Comment:Desirable LDL: less than 100 mg/dLNear Optimal/Above Optimal LDL: 110- 129 mg/dLBorderline High LDL: 130-159 mg/dLHigh LDL: 160-189 mg/dLVery High LDL: greater than or equal to 190 mg/dL HDL Cholesterol 52 >40 mg/dL [facility] Comment:Desirable HDL: great er than 40 mg/dL Note: This HDL assay may give artificially low results in patients with liver disease. Blood 07/24/2024 2:50 PM EDT 07/24/2024 4:16 PM EDT us Neelima Gómez MD LAB BLOOD ORDERABLES Final Result [facility] [address] [place] [phone] * (ABNORMAL) CBC auto differential (07/24/2024 2:50 PM EDT) White Blood Count 13.3(H) 4.8 - 10.8 X10*3/uL [facility] Red Blood Count 2.86(L) 4.20 - 5.50 X10*6/uL [facility] Hemoglobin 8.4(L) 12.0 - 16.0 g/dl [facility] Hematocrit 24.5(L) 37.0 - 47.0 % [facility] Mean Corpuscular Volume 85.7 80.0 - 98.0 fL [facility] Mean Corpuscular Hemoglobin 29.4 27.0 - 33.0 pg [facility] Mean Corpuscular HGB Conc 34.3 31.0 - 35.0 g/dl [facility] Red Cell Distribution Width 14.6 11.0 - 16.0 % [facility] Platelet Count 224 160 - 400 X10*3/uL [facility] Mean Platelet Volume 9.1(L) 9.4 - 12.3 fL [facility] Neutrophils Percent Auto 73.9(H) 45 - 73 % [facility] Imm Gran Pct Auto 0.5(H) 0.0 - 0.4 % [facility] Lymphocytes Percent Auto 18.9(L) 20 - 40 % [facility] Monocytes Percent Auto 4.8 2 - 11 % [facility] Eosinophils Percent Auto 1.7 0 - 4 % [facility] Basophils Percent Auto 0.2 0 - 2 % [facility] NRBC Pct Auto 0.0 0.0 - 0.2 /100WBC [facility] Neutrophils Absolute Auto 9.8(H) 2.0 - 8.3 x10*3/uL [facility] Imm Gran Abs Auto 0.06(H) 0.00 - 0.03 X10*3/uL [facility] Lymphocytes Absolute Auto 2.5 1.2 - 4.9 X10*3/uL [facility] Monocytes Absolute Auto 0.6 0.1 - 1.2 X10*3/uL [facility] Eosinophils Absolute Auto 0.2 0.0 - 0.4 X10*3/uL [facility] Basophils Absolute Auto 0.0 0.0 - 0.2 X10*3/uL [facility] NRBC Abs Auto 0.000 0.0 - 0.012 X10*3/uL [facility] Blood Venous blood specimen / Unknown 07/24/2024 2:50 PM EDT 07/24/2024 4:19 PM EDT us Neelima Gómez MD LAB BLOOD ORDERABLES Final Result [facility] [address] [place] [phone] * (ABNORMAL) Iron And Total Iron Binding Capacity (07/24/2024 2:50 PM EDT) Pathologist [facility] Iron 36 30 - 160 mcg/dL [facility] Total [place] Binding Capacity 180(L) 228 - 428 mcg/dL [facility] Percent [place] Saturation 20 15 - 50 % [facility] Unsaturated [place] Binding 144 ug/dL [facility] Blood Venous blood specimen / Unknown 07/24/2024 2:50 PM EDT 07/24/2024 4:16 PM EDT us Neelima Gómez MD LAB BLOOD ORDERABLES Final Result Performing Organization Address [facility] Co de Phone Number [facility] [address] [place] [phone] * RPR (Monitor) with Reflex to??Titer (07/24/2024 2:50 PM EDT) Pathologist [facility] RPR (Monitor) w/Refl Titer NON-REACTI VE NON-REACT BRANDI [facility] Comment:THIS TEST WAS PERFOR MED AT:[facility] [place] [phone] LYLES MD Rapid Plasma Reagin Ab Titer TNP [facility] Blood Venous blood specimen / Unknown 07/24/2024 2:50 PM EDT 07/24/2024 4:19 PM EDT us Neelima Gómez MD LAB BLOOD ORDERABLES Final Result Performing Organization Address [facility]/ZIP Co de Phone Number [facility] [address] [place] [phone] * (ABNORMAL) Ferritin (07/24/2024 2:50 PM EDT) Pathologist [facility] Ferritin 434(H) 10 - 250 ng/mL [facility] Blood Venous blood specimen / Unknown 07/24/2024 2:50 PM EDT 07/24/2024 4:16 PM EDT us Neelima Gómez MD LAB BLOOD ORDERABLES Final Result Performing Organization Address [facility] Co de Phone Number [facility] [address] [place] [phone] * (ABNORMAL) Hepatic Function Panel (07/24/2024 2:50 PM EDT) Pathologist [facility] Bilirubin, Total 0.2 0.0 - 1.0 mg/dL [facility] Bilirubin, Direct <0.2 0.0 - 0.5 mg/dL [facility] Aspartate Amino Transferase 21 5 - 31 U/L [facility] Alanine Aminotransferase 22 0 - 31 U/L [facility] Total Protein 6.7 6.5 - 8.0 g/dL [facility] Albumin Level 3.0(L) 3.5 - 5.0 g/dL [facility] Alkaline Phosphatase 71 39 - 117 U/L [facility] Blood Venous blood specimen / Unknown 07/24/2024 2:50 PM EDT 07/24/2024 4:16 PM EDT us Neelima Gómez MD LAB BLOOD ORDERABLES Final Result Performing Organization Address [facility] Co de Phone Number [facility] [address] [place] [phone] * (ABNORMAL) Basic Metabolic Panel (07/24/2024 2:50 PM EDT) Only the most recent of2 resultswithin the time period is included. Pathologist [facility] Sodium 143 135 - 145 mmol/L [facility] Potassium 3.5 3.3 - 5.1 mmol/L [facility] Chloride 111(H) 96 - 108 mmol/L [facility] Carbon Dioxide 25 22 - 29 mmol/L [facility] Anion Gap 11(L) 12 - 20 [facility] Urea Nitrogen (BUN) 42(H) 9 - 16 mg/dL [facility] Creatinine, Serum 2.02(H) 0.5 - 1.4 mg/dL [facility] Estimated Glomerular Filt Rate 26 [facility] Comment:Chronic Kidney Disea se: Estimated GFR < 60 mL/min/1.77n4Anndjc Kidney Disease: Estimated GFR < 15 mL/min/1.73m2 Glucose 94 60 - 115 mg/dL [facility] Calcium 8.6 8.4 - 10.2 mg/dL [facility] 07/24/2024 2:50 PM EDT 07/24/2024 4:16 PM EDT Generic External Data Provider LAB BLOOD ORDERAB LES Final Result [facility] [address] [place] [phone] * POCT Glucose (07/24/2024 2:21 PM EDT) Only the most recent of2 resultswithin the time period is included. Glucose Blood, POC 110 60 - 200 mg/dL QC Media Lot # [id number] Lot# Expiration Date 82 Blood Capillary blood specimen / Unknown 07/24/2024 2:21 PM EDT Lily Cortes NP POINT OF CARE TEST ENTER/EDIT O RDERABLES Final Result * (ABNORMAL) POCT HGB A1C (06/29/2024 1:15 [...] EST Narrative 06/01/2024 10:30 AM EST ? [facility] ?[address] ?[place] [address] ?XRay Report ? Signed ? Patient: Loya,Queta ?MR#: [id number] ? : 1970 ?Acct:[id number] ? Age/Sex: 54 / F ?ADM Date: 05/31/24 ? Loc: [facility] ?462-1 ? Attending Dr: Madhu Gonzalez MD ? Ordering Physician: Gene Linares ?? Date of Service: 06/01/24 ?? Procedure(s): XR chest 1V ?? Accession Number(s): [id number] ? cc: Neelima Brown MD; Gene Linares [...] EST RP ? Dictated By: ?Jeremiah Farr S MD ? Signed By: ?<Electronically signed by Jeremiah S MD Chika in OV> ?06/01/24 1027 ? DD/ 0930 ? TD/TT: 06/01/24 0945 ? Equipment Cleaner And Tester: MSM ? Procedure Note Jana, Duarte - 06/01/[address] [place] [address] XRay Report Signed Patient: Parish Loya#: [id number] : 1970Acct:[id number] Age/Sex: 54 / FADM Date: 05/31/24 Loc: [place] [place]: Madhu Gonzalez MD Ordering Physician: Gene Linares Date of Service: 06/01/24 Procedure(s): XR chest 1V Accession Number(s): [id number] cc: Neelima Brown MD; Gene Linares EXAMINATION: [...] 06/01/24 1027 DD/ 0930 TD/TT: 06/01/24 0945 Equipment Cleaner And Tester: [facility] External Provider IMG XR PROCEDURES Final Result * US THORACENTESIS (06/01/2024 9:00 AM EST) Anatomical Region Laterality Modality Abdomen Ultrasound 06/01/2024 9:00 AM EST Narrative 06/01/2024 2:51 PM EST ? [facility] ?[address] ?[place] [address] ? Ultrasound Report ? Signed ? Patient: Loya,Queta ?MR#: [id number] ? : 1970 ?Acct:[id number] ? Age/Sex: 54 / F ?ADM Date: 01/26/25 ? Loc: [facility] ?462-1 ? Attending Dr: Madhu Gonzalez MD ? Ordering Physician: Mickie Mckeon MD ?? Date of Service: 06/01/24 ?? Procedure(s): US thoracentesis ?? Accession Number(s): [id number] ? cc: Neelima Brown MD; Mickie Mckeon MD ? PROCEDURE: ?? Ultrasound-guided left thoracentesis ? History: ?? Left pleural effusion ? Specimen: ?? None ? Access: ?? 5 Tongan Yueh catheter ? Medications: ?? 10 mL [...] demonstrate a safe access route. A 5 Tongan Yueh catheter was ?? then used to access the pleural cavity. 900 ml of ashish fluid was ?? removed passively. The catheter was then removed. A dressing was ?? applied. A postprocedure chest x-ray will be performed and will be ?? dictated separately. There were no immediate complications. ? The procedure was performed by Gene Linares PA-C and supervised by . ?? Chill ? US/US thoracentesis ?? Impression: Ultrasound-guided left thoracentesis ? Electronically signed by: ??Akash Raymond MD ??06/01/2024 02:48 PM EST RP ? Dictated By: ?Vijay,Gene AREVALO ? Signed By: ?<Electronically signed by Gene Linares in OV> ? 06/01/25 1448 ?<Electronically signed by Akash Raymond MD in OV> ? 06/01/ 1450 ? DD/DT: 06/01/ 0900 ? TD/TT: 06/01/24 0921 ? Equipment Cleaner And Tester: ? Procedure Note Donotuseinterpreter, Image - 06/01/2024 [place] [address] Ultrasound Report Signed Patient: Parish Loya#: [id number] : 1970Acct:[id number] Age/Sex: 54 / FADM Date: 05/31/24 Loc: [facility] 462-[address]: Madhu Gonzalez MD Ordering Physician: Mickie Mckeon MD Date of Service: 06/01/24 Procedure(s): US thoracentesis Accession Number(s): [id number] cc: Neelima Brown MD; Mickie Mckeon MD PROCEDURE: Ultrasound-guided left thoracentesis History: Left pleural effusion Specimen: None Access: 5 Tongan Yueh catheter Medications: 10 mL 1% lidocaine [...] demonstrate a safe access route. A 5 Tongan Yueh catheter was then used to access [...] 02:48 PM [facility] Dictated By: Gene Linares Signed By: <Electronically signed by Gene Linares in OV> 06/01/24 1448 <Electronically signed by Akash Raymond MD in OV> 06/01/24 1450 DD/ 0900 TD/TT: 06/01/24 0921 Equipment Cleaner And Tester: [facility] External Provider IMG US PROCEDURES Final Result * (ABNORMAL) ALBUMIN, RANDOM URINE W/CREATININE (11/20/2021 2:21 PM EDT) Microalbumin Urine 14.5 See Note: mg/dL [facility] [...] Creatinine, Urine 26 20 - 275 mg/dL [facility] 11/20/2021 2:21 PM EDT Neelima Gómez MD LAB URINE ORDERABLES Final Result [facility] [address] * Mammography Report 1 (07/17/2021 2:10 PM EDT) Anatomical Region Laterality Modality Breast Bilateral Mammography 07/17/2021 2:10 PM EDT Narrative 07/17/2021 3:47 PM EDT Refer to the Notes tab for result details [facility] Procedure: Mammography Report 1 Procedure Note ProviderJass MD - 07/29/2022 Refer to the Notes tab for result details [facility] Procedure: Mammography Report 1 Neelima Gómez MD IMG BI PROCEDURES Fin al Result * HPV mRNA E6/E7 (07/23/2018 11:16 AM EDT) HPV mRNA E6/E7 Not Detected NOT DETECTED [facility] Comment: This test was performed using the APTIMA(R) HPV Assay ([employer] This assay detects E6/E7 viral messenger RNA (mRNA) from 14 high-risk HPV types (16,18,31,33,35,39,45,51, 52,56,58,59,66,68). For additional information please refer to: http://education.Okan/faq/JXP800o6 (This link is being provided for informational/ educational purposes only.) The analytical performance characteristics of this assay have been determined by [employer] [place], [place]. The modifications have not been cleared or approved by the FDA. This assay has been validated pursuant to the CLIA regulations and is used for clinical purposes. Test Performed by [facility], Node Management [facility], [address] [place] [address] Chris Simpson M.D., Ph.D., Director of Laboratories , CLIA [id number] Please note: ??Effective 01/16/2016, HPV testing will be performed using [employer]'s APTIMA test which targets mRNA. Detecting mRNA instead of DNA, as in older methods, offers significant improvements in specificity. 07/23/2018 11:1 6 AM EDT Neelima Gómez MD HISTORICAL/NON ORDERA BLE LABS Final Result [facility] [address] from Last 3 Months or Most Recently Relevant to Health Maintenance Insurance * Guarantor: Queta Loya Account Type Relation to Patient Date of Phone Billing Address Personal/Family Self 1970 [address] [place] [address] [employer] * Guarantor: Queta Loya Account Type Relation to Patient Date of Phone Billing Address Personal/Family Self [address] [place] [address] * Guarantor: Queta Loya Account Type Relation to Patient Date of Phone Billing Address Personal/Family Self [address] [place] [address] Care Teams Medical Technologist Chemistry Relationship Specialty Start Date End Date Neelima Brown MD [address] [place] [phone] PCP - General Family Medicine 01/15/18 Nolvia Delgado Digital Content SpecialistHarness Cutter 08/29/23 Dixon ARCHIBALD 03/05/24
--- OUTSIDE RECORDS SUMMARY | 2024-07-28 14:15 | XMS_ITS | Encounter Summary ---
Author Organization [employer] [facility] Address [address] [place] [address] 7t [place] [address] Care Team Providers Care Kier Tender Name Role Phone Neelima Brown MD Primary Care Provide r Encounter Details Date Type Department Care Team ([facility] Contact Info) Description 07/18/2022 Telephone [facility] [address] [place] [address] [phone] Neelima Brown MD [address] [place], [place] [phone] Social History Tobacco Use Types Packs/Day Years [...] Upcoming Encounters Date Type Department Care Team ([facility] Contact Info) Description 09/25/2024 2:30 PM EDT Office Visit [facility] [address] [place] [address] [phone] Neelima Brown MD [address] [place], [place] [phone] documented as of this encounter Visit Diagnoses Not on filedocumented in this encounter Care Teams Kier Tender Relationship Specialty Start Date End Date Neelima Brown MD [address] [place] [address] PCP - General Family Medicine 01/15/18 Yara Salas Contact Center Manager 07/01/23 09/27/23 Nolvia Delgado Contact Center ManagerInlayer 08/29/23 Dixon ARCHIBALD 03/05/24 documented as of this encounter
--- OUTSIDE RECORDS SUMMARY | 2024-07-28 14:15 | XMS_ITS | Encounter Summary ---
Author Organization [employer] Address [address] [place] [address] 7t [place] [address] Care Team Providers Care Masticator Name Role Phone Neelima Brown MD Primary Care Provide r Reason for Visit * Reason Onset Date Comments Medication Question 09/27/2023 Encounter Details Date Type Department Care Team ([facility] st Contact Info) Description 09/27/2023 Telephone [facility] [address] [place], [place] [phone] Neelima Brown MD [address] [place], [place] [phone] Medication Question Social History Tobacco Use Types [...] If any questions please contact Josephine at [phone]. documented in this encounter Plan of Treatment Upcoming Encounters Date Type Department Care Team (Late st Contact Info) Description 09/25/2024 2:30 PM EDT Office Visit [facility] [address] [place] [address] Neelima Brown MD [address] [place] [address] documented as of this encounter Goals Goal [...] documented as of this encounter Care Teams Masticator Relationship Specialty Start Date End Date Neelima Brown MD [address] [place] [address] PCP - General Family Medicine 01/15/18 Yara Salas Cost Specialist 07/01/23 09/27/23 Nolvia Delgado Cost SpecialistDermatology Procedural Physician 08/29/23 Dixon ARCHIBALD 03/05/24 documented as of this encounter
--- OUTSIDE RECORDS SUMMARY | 2024-07-28 14:15 | XMS_ITS | Encounter Summary ---
Author Organization [facility] Address [address] [place] [address] Care Team Providers Care Integrity Consultant Name Role Phone Mckenzie Hernandez MD Primary Care Provider [phone] Encounter Details Date Type Department Care Team (Late st Contact Info) Description 05/20/2024 Lab Requisition [facility] [address] [facility] [place] [address] Mckenzie Hernandez MD [address] [place] [phone] Hyperkalemia Social History Tobacco Use Types Packs/Day [...] Hyperpotassemia documented in this encounter Care Teams Integrity Consultant Relationship Specialty Start Date End Date Mckenzie Hernandez MD [address] [place] [phone] PCP - General Hospitalist Medicine 04/27/24 documented as of this encounter
--- OUTSIDE RECORDS SUMMARY | 2024-07-28 14:15 | XMS_ITS | Encounter Summary ---
Author Organization [employer] [facility] Address [address] [place] [address] 7t [place] [address] Care Team Providers Care Forming Machine Adjuster Name Role Phone Neelima Brown MD Primary Care Provide r Encounter Details Date Type Department Care Team ([facility] Contact Info) Description 08/01/2022 Abstract [facility] MEDICINE [address] [place] [address] [phone] Neelima Brown MD [address] [place], [place] [phone] Social History Tobacco Use Types Packs/Day Years [...] Upcoming Encounters Date Type Department Care Team ([facility] Contact Info) Description 09/25/2024 2:30 PM EDT Office Visit [facility] [address] [place] [address] [phone] Neelima Brown MD [address] [place], [place] [phone] documented as of this encounter Visit Diagnoses Not on filedocumented in this encounter Care Teams Forming Machine Adjuster Relationship Specialty Start Date End Date Neelima Brown MD [address] [place] [address] PCP - General Family Medicine 01/15/18 Yara Salas Job Printer Apprentice 07/01/23 09/27/23 Nolvia Delgado Job Printer ApprenticeHasher Operator 08/29/23 Dixon ARCHIBALD 03/05/24 documented as of this encounter
--- OUTSIDE RECORDS SUMMARY | 2024-07-28 14:15 | XMS_ITS | Clinical Summary ---
Demographics Address [address] [facility] [facility] [address] [place] [address] Home Phone Preferred Language es Marital Status Jehovah'S Witness Affiliation Unknown Race Unknown Ethnic Group Unknown Author Organization [facility] Address [address] [place] [address] Phone Care Team Providers Care Paper Folding Machine Operator Name Role Phone Neelima Brown [...] 01/17/2023 Influenza Vaccine (#1) 2024 Insurance [place] Care Teams Paper Folding Machine Operator Relationship Specialty Start Date End Date Neelima Brown MD [address] [place] [phone] PCP - General Internal Medicine 12/20/22
--- OUTSIDE RECORDS SUMMARY | 2024-07-28 14:15 | XMS_ITS | Encounter Summary ---
Author Organization [employer] Address [address] [place] [address] 7t [place] [address] Care Team Providers Care Hand Reamer Name Role Phone Neelima Brown MD Primary Care Provide r Reason for Visit * Reason Onset Date Comments Verbal Orders 07/15/2024 Encounter Details Date Type Department Care Team ([facility] st Contact Info) Description 07/15/2024 Telephone [facility] [address] [place], [place] [phone] Neelima Brown MD [address] [place], [place] [phone] Verbal Orders Social History Tobacco Use Types Packs/Day Years [...] encounter Miscellaneous Notes * Telephone Encounter - Desean Martinez - 07/15/2024 12:44 PM EDT Tc from Velma with [employer] [facility] requesting verbal orders to start at Home Nursing and Pt Back up due to her being discharged today 07/15/24. Contact Velma at [phone] documented in this encounter Plan of Treatment Upcoming Encounters Date Type Department Care Team (Late st Contact Info) Description 09/25/2024 2:30 PM EDT Office Visit [facility] [address] [place] [phone] Neelima Brown MD [address] [place] [address] documented as of this encounter Goals Goal [...] documented as of this encounter Care Teams Hand Reamer Relationship Specialty Start Date End Date Neelima Brown MD [address] [place] [phone] PCP - General Family Medicine 01/15/18 Nolvia Delgado Insole PresserCampus Safety Officer 08/29/23 Dixon ARCHIBALD 03/05/24 documented as of this encounter
--- OUTSIDE RECORDS SUMMARY | 2024-07-28 14:15 | XMS_ITS | Encounter Summary ---
Author Organization [employer] Address [address] [place] [address] 7t [place] [address] Care Team Providers Care Rail Flaw Detector Operator Name Role Phone Neelima Brown MD Primary Care Provide r Reason for Visit * Reason Onset Date Comments PT1 06/18/2024 Encounter Details Date Type Department Care Team ([facility] st Contact Info) Description 06/18/2024 Telephone [facility] [address] [place], [place] [phone] Neelima Brown MD [address] [place], [place] [phone] PT1 Social History Tobacco Use Types Packs/Day [...] Y/N: Yes Provider name or facility name: [facility] Facility Address: [address] [place] [address] Escort needed: Y/N: Yes Do you have a wheelchair: If yes- Manual or electric: Visits: 2 x a month documented in this encounter Plan of Treatment Upcoming Encounters Date Type Department Care Team ([facility] st Contact Info) Description 09/25/2024 2:30 PM EDT Office Visit [facility] [address] [place] [phone] Neelima Brown MD [address] [place] [phone] documented as of this encounter Goals Goal [...] documented as of this encounter Care Teams Rail Flaw Detector Operator Relationship Specialty Start Date End Date Neelima Brown MD [address] [place] [phone] PCP - General Family Medicine 01/15/18 Nolvia Delgado Medical Director Of HospiceFamily Service Assistant 08/29/23 Dixon ARCHIBALD 03/05/24 documented as of this encounter
--- OUTSIDE RECORDS SUMMARY | 2024-07-28 14:15 | XMS_ITS | Encounter Summary ---
Author Organization [facility] Address [address] [place] [address] Care Team Providers Care Graining Machine Operator Name Role Phone Mckenzie Hernandez MD Primary Care Provider Encounter Details Date Type Department Care Team (Latest Contact Info) Description 04/27/2024 Lab Requisition [facility] - Main Lab [address] [facility] [place] [address] Mckenzie Hernandez MD [address] [place] [address] Iron deficiency anemia, unspecified; Vitamin D deficiency, [...] LAB CHEMISTRY METHOD 04/27/2024 10:17 AM EST [facility] Blood Venous blood specimen / Unknown Venipuncture / Unknown 04/27/2024 4:45 AM EST 04/27/2024 9:16 AM EST us Mckenzie Hernandez MD LAB BLOOD ORDERABLES Final Resu lt [facility] [address] [place] [address], * Thyroid stimulating hormone (04/27/2024 4:45 AM EST) TSH 3.85 0.40 - 4.00 mcIU/mL LAB CHEMISTRY METHOD 04/27/2024 10:28 AM EST [facility] Blood Venous blood specimen / Unknown Venipuncture / Unknown 04/27/2024 4:45 AM EST 04/27/2024 9:16 AM EST us Mckenzie Hernandez MD LAB BLOOD ORDERABLES Final Resu lt Performing Organization Address City/[facility]/ZIP Co de Phone Number [facility] [address] [place] [address], [place] [phone] * (ABNORMAL) Vitamin D 25 hydroxy (04/27/2024 4:45 AM EST) [facility] Vit D, 25-Hydroxy 24.3(L) 30.0 - 80.0 ng/mL LAB CHEMISTRY METHOD 04/27/2024 10:28 AM EST [facility] Blood Venous blood specimen / Unknown Venipuncture / Unknown 04/27/2024 4:45 AM EST 04/27/2024 9:16 AM EST us Mckenzie Hernandez MD LAB BLOOD ORDERABLES Final Resu lt Performing Organization Address [facility]/ZIP Co de Phone Number [facility] [address] [place] [address], [place] [phone] * Folate (04/27/2024 4:45 AM EST) [facility] Folate 14.1 2.8 - 17.0 ng/ml LAB CHEMISTRY METHOD 04/27/2024 10:35 AM EST [facility] Blood Venous blood specimen / Unknown Venipuncture / Unknown 04/27/2024 4:45 AM EST 04/27/2024 9:16 AM EST us Mckenzie Hernandez MD LAB BLOOD ORDERABLES Final Resu lt Performing Organization Address City/[facility]/ZIP Co de Phone Number [facility] [address] [place] [address], [place] [phone] * (ABNORMAL) Hemoglobin A1c (04/27/2024 4:45 AM EST) [facility] Hemoglobin A1C 6.8(H) <6.5 % LAB CHEMISTRY METHOD 04/27/2024 1:25 PM [facility] Mean Bld Glu Estim. 148 mg/dL LAB CHEMISTRY METHOD 04/27/2024 1:25 PM [facility] Blood Venous blood specimen / Unknown Venipuncture / Unknown 04/27/2024 4:45 AM EST 04/27/2024 9:16 AM EST us Mckenzie Hernandez MD LAB BLOOD ORDERABLES Final Resu lt [facility] [address] [place] [address], [place] [phone] * (ABNORMAL) Comprehensive metabolic panel (04/27/2024 4:45 AM EST) Sodium 138 133 - 145 mmol/L LAB CHEMISTRY METHOD 04/27/2024 10:35 AM [facility] Potassium 5.3 3.5 - 5.5 mmol/L LAB CHEMISTRY METHOD 04/27/2024 10:35 AM [facility] Chloride 107 96 - 110 mmol/L LAB CHEMISTRY METHOD 04/27/2024 10:35 AM [facility] CO2 25 21 - 32 mmol/L LAB CHEMISTRY METHOD 04/27/2024 10:35 AM [facility] Anion Gap 6 3 - 11 LAB CHEMISTRY METHOD 04/27/2024 10:35 AM [facility] Glucose 137(H) 70 - 100 mg/dL LAB CHEMISTRY METHOD 04/27/2024 10:35 AM [facility] BUN 110(H) 5 - 25 mg/dL LAB CHEMISTRY METHOD 04/27/2024 10:35 AM [facility] Creatinine 2.58(H) 0.50 - 1.10 mg/dL LAB CHEMISTRY METHOD 04/27/2024 10:35 AM [facility] eGFR 22(L) >=60 mL/min/1. 73m2 LAB CHEMISTRY METHOD 04/27/2024 10:35 AM [facility] Comment:Calculation based on the??Chronic Kidney Disease Epidemiology Collaboration (CKD-EPI) equation refit??without adjustment for race. BUN/Creatinine Ratio 42.6 LAB CHEMISTRY METHOD 04/27/2024 10:35 AM [facility] Calcium 8.9 8.5 - 10.5 mg/dL LAB CHEMISTRY METHOD 04/27/2024 10:35 AM [facility] AST (SGOT) 75(H) 10 - 42 unit/L LAB CHEMISTRY METHOD 04/27/2024 10:35 AM [facility] ALT (SGPT) 81(H) 10 - 60 unit/L LAB CHEMISTRY METHOD 04/27/2024 10:35 AM [facility] Alkaline Phosphatase 239(H) 42 - 121 unit/L LAB CHEMISTRY METHOD 04/27/2024 10:35 AM [facility] Total Protein 6.6 6.0 - 8.0 g/dL LAB CHEMISTRY METHOD 04/27/2024 10:35 AM [facility] Albumin 2.3(L) 3.2 - 5.0 g/dL LAB CHEMISTRY METHOD 04/27/2024 10:35 AM [facility] Total Bilirubin 0.3 0.0 - 1.4 mg/dL LAB CHEMISTRY METHOD 04/27/2024 10:35 AM [facility] Blood Venous blood specimen / Unknown Venipuncture / Unknown 04/27/2024 4:45 AM EST 04/27/2024 9:16 AM EST us Mckenzie Hernandez MD LAB BLOOD ORDERABLES Final Resu lt [facility] [address] [place] [address], * (ABNORMAL) Complete blood count (04/27/2024 4:45 AM EST) [facility] WBC 8.5 4.8 - 10.8 K/mcL LAB HEMETOLOGY METHOD 04/27/2024 9:55 AM [facility] RBC 2.80(L) 3.80 - 4.80 M/mcL LAB HEMETOLOGY METHOD 04/27/2024 9:55 AM [facility] Hemoglobin 8.0(L) 11.5 - 16.0 g/dL LAB HEMETOLOGY METHOD 04/27/2024 9:55 AM [facility] Hematocrit 24.7(L) 35.0 - 47.0 % LAB HEMETOLOGY METHOD 04/27/2024 9:55 AM [facility] MCV 89.5 79.0 - 98.0 FL LAB HEMETOLOGY METHOD 04/27/2024 9:55 AM [facility] MCH 29.0 27.0 - 32.0 pcg LAB HEMETOLOGY METHOD 04/27/2024 9:55 AM [facility] MCHC 32.4 32.0 - 37.0 g/dL LAB HEMETOLOGY METHOD 04/27/2024 9:55 AM [facility] RDW 15.8(H) 11.0 - 15.0 % LAB HEMETOLOGY METHOD 04/27/2024 9:55 AM [facility] Platelets 167 130 - 400 K/mcL LAB HEMETOLOGY METHOD 04/27/2024 9:55 AM [facility] MPV 8.9 7.0 - 11.0 FL LAB HEMETOLOGY METHOD 04/27/2024 9:55 AM [facility] NRBC 0.0 <1.0 % LAB HEMETOLOGY METHOD 04/27/2024 9:55 AM [facility] NRBC Absolute 0.00 <0.10 K/mcL LAB HEMETOLOGY METHOD 04/27/2024 9:55 AM EST [facility] Blood Venous blood specimen / Unknown Venipuncture / Unknown 04/27/2024 4:45 AM EST 04/27/2024 9:16 AM EST Mckenzie Hernandez MD LAB BLOOD ORDERABLES Final Resu lt [facility] [address] [place] [address], documented in this encounter Visit Diagnoses Diagnosis Iron deficiency anemia, unspecified Vitamin D deficiency, unspecified Type 2 diabetes mellitus without complications documented in this encounter Care Teams Graining Machine Operator Relationship Specialty Start Date End Date Mckenzie Hernandez MD [address] [place] [phone] PCP - General Hospitalist Medicine 04/27/24 documented as of this encounter
--- OUTSIDE RECORDS SUMMARY | 2024-07-28 14:15 | XMS_ITS | Clinical Summary ---
Author Organization [address] Address [address] [place] [address] Phone Care Team Providers Care Cq Developer Name Role Phone Mckenzie Hernandez MD Primary Care Provider [phone] Encounters Date Type Department Care Team Description 05/20/2024 Lab Requisition [facility] Lab [address] [place] [id number] Mckenzie Hernandez MD Hyperkalemia 05/15/2024 Lab Requisition [facility] - Main Lab [address] [place] [address] Mckenzie Hernandez MD Hyperkalemia 05/13/2024 Lab Requisition [facility] Lab [address] [place] [address] Mckenzie Hernandez MD Hyperkalemia 05/12/2024 Lab Requisition [facility] [address] [place] [address] Mckenzie Hernandez MD Hyperkalemia 05/11/2024 Lab Requisition [facility] Lab [address] [place] [address] Mckenzie Hernandez MD Chronic kidney disease, unspecified 05/11/2024 Lab Requisition [facility] [address] [place] [address] Mckenzie Hernandez MD Hyperkalemia 05/07/2024 Lab Requisition [facility] Lab [address] [place] [address] Mckenzie Hernandez MD Chronic kidney disease, unspecified 05/05/2024 Lab Requisition [facility] - Main Lab [address] [facility] [address] [place] [address] Mckenzie Hernandez MD Chronic kidney disease, unspecified from Last 3 Months Social History Tobacco [...] Cancer Screening 07/18/2023 07/17/2021 COVID-19 Vaccine ( - season) 2024 Influenza Vaccine (#1) 2024 02/17/2015, [...] 6:10 AM EST Chronic kidney disease, unspecified HEMOGLOBIN A1C Routine 04/27/2024 4:45 AM EST Iron deficiency anemia, unspecified Vitamin D deficiency, unspecified Type 2 diabetes mellitus without complications (CMS/HCC) from Last 3 Months or Most Recently Relevant to Health Maintenance Results * (ABNORMAL) Basic metabolic panel (05/18/2024 4:41 AM EST) Only the most recent of6 resultswithin the time period is included. Sodium 138 133 - 145 mmol/L LAB CHEMISTRY METHOD 05/18/2024 12:51 PM [facility] Potassium 5.7(H) 3.5 - 5.5 mmol/L LAB CHEMISTRY METHOD 05/18/2024 12:51 PM [facility] Chloride 108 96 - 110 mmol/L LAB CHEMISTRY METHOD 05/18/2024 12:51 PM [facility] CO2 26 21 - 32 mmol/L LAB CHEMISTRY METHOD 05/18/2024 12:51 PM [facility] Anion Gap 4 3 - 11 LAB CHEMISTRY METHOD 05/18/2024 12:51 PM [facility] Glucose 114(H) 70 - 100 mg/dL LAB CHEMISTRY METHOD 05/18/2024 12:51 PM [facility] BUN 52(H) 5 - 25 mg/dL LAB CHEMISTRY METHOD 05/18/2024 12:51 PM [facility] Creatinine 2.35(H) 0.50 - 1.10 mg/dL LAB CHEMISTRY METHOD 05/18/2024 12:51 PM [facility] eGFR 24(L) >=60 mL/min/1. 73m2 LAB CHEMISTRY METHOD 05/18/2024 12:51 PM [facility] Comment:Calculation based on the??Chronic Kidney Disease Epidemiology Collaboration (CKD-EPI) equation refit??without adjustment for race. BUN/Creatinine Ratio 22.1 LAB CHEMISTRY METHOD 05/18/2024 12:51 PM EST [facility] Calcium 9.0 8.5 - 10.5 mg/dL LAB CHEMISTRY METHOD 05/18/2024 12:51 PM [facility] Blood Venous blood specimen / Unknown Venipuncture / Unknown 05/18/2024 4:41 AM EST 05/18/2024 11:07 AM EST us Mckenzie Hernandez MD LAB BLOOD ORDERABLES Final Resu lt [facility] [address] [place] [address], [place] [phone] * (ABNORMAL) Complete blood count (05/12/2024 6:38 AM EST) Only the most recent of3 resultswithin the time period is included. WBC 6.2 4.8 - 10.8 K/mcL LAB HEMETOLOGY METHOD 05/12/2024 10:25 AM [facility] RBC 2.90(L) 3.80 - 4.80 M/[facility] LAB HEMETOLOGY METHOD 05/12/2024 10:25 AM [facility] Hemoglobin 8.3(L) 11.5 - 16.0 g/dL LAB HEMETOLOGY METHOD 05/12/2024 10:25 AM [facility] Hematocrit 25.6(L) 35.0 - 47.0 % LAB HEMETOLOGY METHOD 05/12/2024 10:25 AM [facility] MCV 89.2 79.0 - 98.0 FL LAB HEMETOLOGY METHOD 05/12/2024 10:25 AM [facility] MCH 28.9 27.0 - 32.0 pcg LAB HEMETOLOGY METHOD 05/12/2024 10:25 AM [facility] MCHC 32.4 32.0 - 37.0 g/dL LAB HEMETOLOGY METHOD 05/12/2024 10:25 AM EST [facility] RDW 15.0 11.0 - 15.0 % LAB HEMETOLOGY METHOD 05/12/2024 10:25 AM EST [facility] Platelets 166 130 - 400 K/mcL LAB HEMETOLOGY METHOD 05/12/2024 10:25 AM EST [facility] MPV 8.5 7.0 - 11.0 FL LAB HEMETOLOGY METHOD 05/12/2024 10:25 AM EST [facility] NRBC 0.0 <1.0 % LAB HEMETOLOGY METHOD 05/12/2024 10:25 AM EST [facility] NRBC Absolute 0.00 <0.10 K/mcL LAB HEMETOLOGY METHOD 05/12/2024 10:25 AM EST [facility] Blood Venous blood specimen / Unknown Venipuncture / Unknown 05/12/2024 6:38 AM EST 05/12/2024 9:56 AM EST us Mckenzie Hernandez MD LAB BLOOD ORDERABLES Final Resu lt [facility] [address] [place] [address], * (ABNORMAL) Hemoglobin A1c (04/27/2024 4:45 AM EST) Hemoglobin A1C 6.8(H) <6.5 % LAB CHEMISTRY METHOD 04/27/2024 1:25 PM EST [facility] Mean Bld Glu Estim. 148 mg/dL LAB CHEMISTRY METHOD 04/27/2024 1:25 PM EST [facility] Blood Venous blood specimen / Unknown Venipuncture / Unknown 04/27/2024 4:45 AM EST 04/27/2024 9:16 AM EST us Mckenzie Hernandez MD LAB BLOOD ORDERABLES Final Resu lt [facility] ([facility]) [facility] [address] [place] [address], from Last 3 Months or Most Recently Relevant to Health Maintenance Insurance MEDICAID - [place] Care Teams Cq Developer Relationship Specialty Start Date End Date Mckenzie Hernandez MD [address] [place] [phone] PCP - General Hospitalist Medicine 04/27/24
--- OUTSIDE RECORDS SUMMARY | 2024-07-28 14:15 | XMS_ITS | Encounter Summary ---
Author Organization [facility] Address [address] [place] [address] Care Team Providers Care Refinery Process Engineer Name Role Phone Mckenzie Hernandez MD Primary Care Provider [phone] Encounter Details Date Type Department Care Team (Late st Contact Info) Description 05/05/2024 Lab Requisition [facility] - Main Lab [address] [facility] [address] Mckenzie Hernandez MD [address] [place] [phone] Chronic kidney disease, unspecified Social History Tobacco [...] LAB CHEMISTRY METHOD 05/05/2024 10:25 AM EST [facility] ([facility] Potassium 5.6(H) 3.5 - 5.5 [...] MD LAB BLOOD ORDERABLES Final Resu lt [facility] [address] [place] [address], [place] [phone] * (ABNORMAL) Complete blood count (05/05/2024 6:10 AM EST) [facility] WBC 6.2 4.8 - 10.8 K/mcL LAB [...] LAB HEMETOLOGY METHOD 05/05/2024 10:11 AM EST [facility] Blood Venous blood specimen / Unknown Venipuncture / Unknown 05/05/2024 6:10 AM EST 05/05/2024 9:07 AM EST us Mckenzie Hernandez MD LAB BLOOD ORDERABLES Final Resu lt [facility] [address] [place] [address], documented in this encounter Visit Diagnoses Diagnosis Chronic kidney disease, unspecified documented in this encounter Care Teams Refinery Process Engineer Relationship Specialty Start Date End Date Mckenzie Hernandez MD [address] [place] [phone] PCP - General Hospitalist Medicine 04/27/24 documented as of this encounter
--- OUTSIDE RECORDS SUMMARY | 2024-07-28 14:15 | XMS_ITS | Encounter Summary ---
Author Organization [facility] Address [address] [place] [address] Care Team Providers Care Gamb Cutter Name Role Phone Mckenzie Hernandez MD Primary Care Provider [phone] Encounter Details Date Type Department Care Team (Late st Contact Info) Description 05/07/2024 Lab Requisition [facility] - Main Lab [address] [facility] [place] [address] Mckenzie Hernandez MD [address] [place] [address] Chronic kidney disease, unspecified Social History Tobacco [...] LAB CHEMISTRY METHOD 05/08/2024 11:04 AM EST [facility] ([facility] Potassium 6.4(HH) 3.5 - 5.5 mmol/L LAB CHEMISTRY METHOD 05/08/2024 11:04 AM [facility] Chloride 108 96 - 110 mmol/L LAB CHEMISTRY METHOD 05/08/2024 11:04 AM [facility] CO2 24 21 - 32 mmol/L LAB CHEMISTRY METHOD 05/08/2024 11:04 AM [facility] Anion Gap 6 3 - 11 LAB CHEMISTRY METHOD 05/08/2024 11:04 AM [facility] Glucose 81 70 - 100 mg/dL LAB CHEMISTRY METHOD 05/08/2024 11:04 AM [facility] BUN 39(H) 5 - 25 mg/dL LAB CHEMISTRY METHOD 05/08/2024 11:04 AM [facility] Creatinine 1.95(H) 0.50 - 1.10 mg/dL LAB CHEMISTRY METHOD 05/08/2024 11:04 AM [facility] eGFR 30(L) >=60 mL/min/1. 73m2 LAB CHEMISTRY METHOD 05/08/2024 11:04 AM [facility] Comment:Calculation based on the??Chronic Kidney Disease Epidemiology Collaboration (CKD-EPI) equation refit??without adjustment for race. BUN/Creatinine Ratio 20.0 LAB CHEMISTRY METHOD 05/08/2024 11:04 AM [facility] Calcium 8.5 8.5 - 10.5 mg/dL LAB CHEMISTRY METHOD 05/08/2024 11:04 AM [facility] Blood Venous blood specimen / Unknown Venipuncture / Unknown 05/08/2024 7:00 AM EST 05/08/2024 9:54 AM EST us Mckenzie Hernandez MD LAB BLOOD ORDERABLES Final Resu lt [facility] [address] [place] [address], [place] [phone] * (ABNORMAL) Complete blood count (05/08/2024 7:00 AM EST) [facility] WBC 6.4 4.8 - 10.8 K/mcL LAB HEMETOLOGY METHOD 05/08/2024 10:14 AM [facility] RBC 3.00(L) 3.80 - 4.80 M/mcL LAB HEMETOLOGY METHOD 05/08/2024 10:14 AM [facility] Hemoglobin 8.6(L) 11.5 - 16.0 g/dL LAB HEMETOLOGY METHOD 05/08/2024 10:14 AM [facility] Hematocrit 26.9(L) 35.0 - 47.0 % LAB HEMETOLOGY METHOD 05/08/2024 10:14 AM [facility] MCV 88.8 79.0 - 98.0 FL LAB HEMETOLOGY METHOD 05/08/2024 10:14 AM [facility] MCH 28.4 27.0 - 32.0 pcg LAB HEMETOLOGY METHOD 05/08/2024 10:14 AM [facility] MCHC 32.0 32.0 - 37.0 g/dL LAB HEMETOLOGY METHOD 05/08/2024 10:14 AM [facility] RDW 15.1(H) 11.0 - 15.0 % LAB HEMETOLOGY METHOD 05/08/2024 10:14 AM [facility] Platelets 168 130 - 400 K/mcL LAB HEMETOLOGY METHOD 05/08/2024 10:14 AM [facility] MPV 8.8 7.0 - 11.0 FL LAB HEMETOLOGY METHOD 05/08/2024 10:14 AM [facility] NRBC 0.0 <1.0 % LAB HEMETOLOGY METHOD 05/08/2024 10:14 AM [facility] NRBC Absolute 0.00 <0.10 K/mcL LAB HEMETOLOGY METHOD 05/08/2024 10:14 AM [facility] Blood Venous blood specimen / Unknown Venipuncture / Unknown 05/08/2024 7:00 AM EST 05/08/2024 9:54 AM EST us Mckenzie Hernandez MD LAB BLOOD ORDERABLES Final Resu lt [facility]) [facility] [address] [place] [address], documented in this encounter Visit Diagnoses Diagnosis Chronic kidney disease, unspecified documented in this encounter Care Teams Gamb Cutter Relationship Specialty Start Date End Date Mckenzie Hernandez MD [address] [place] [phone] PCP - General Hospitalist Medicine 04/27/24 documented as of this encounter
--- OUTSIDE RECORDS SUMMARY | 2024-07-28 14:15 | XMS_ITS | Encounter Summary ---
Demographics Address [address] [place] [address] Mobile Phone Email Address Preferred Language es Marital Status Single Rastafarian Affiliation Unknown Race Other Race Ethnic Group or Author Organization [facility] Address [address] 7t [place] [address] Care Team Providers Care Professional Athlete Name Role Phone Neelima Brown MD Primary Care Provide r Reason for Referral * Consultation (Routine) - Closed Specialty Diagnoses / Procedures Referred By Contac t Referred To Contact Nephrology Diagnoses Acute kidney injury superimposed on CKD (CMS/HCC) ([facility]) Neelima Brown MD [address] [place] [address] Phone: tel: fax: [facility] [address], [address] [place] [address] Phone: tel: fax: Referral ID Status Reason Start Date Expiration Date V isits Requested Visits Authorized [id number] Closed Specialty Services Required 06/29/2024 06/29/2025 1 1 Encounter Details Date Type Department Care Team (Latest Contact Info) Description 06/29/2024 1:00 PM EST Office Visit [facility] [address] [place], [place] [phone] Neelima Brown MD [address] [place] [address] 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, with long-term current use of insulin (CMS/HCC) (Primary Dx); Congestive heart failure, unspecified HF chronicity, unspecified heart failure type ([facility]); Pneumonia of both lungs due to infectious organism, unspecified part of lung; Urinary tract infection without hematuria, site unspecified; 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, unspecified whether iuss acoustic analyst insulin use ([facility]); Acute kidney injury superimposed on CKD ([facility]) ([facility]); Nausea; Diabetic polyneuropathy associated with type 2 diabetes mellitus ([facility]) Social History Tobacco Use Types Packs/Day Years [...] old female who presents for HDF . [facility] (04/07/24-04/25/24) Patient presented for evaluation of fever, [...] of CKD with appropriate response.[facility] Medication changes that occurred during hospitalization include: Added Lidocaine 4% patch TD once daily to upper back Lokelma 10 grams once daily Changed Gabapentin 100 mg at bedtime increased to 100 mg three times a day Discontinued: furosemide, losartan [facility] ED (05/16/24) Patient presented from rehab and treated for pneumonia. Discharged back to rehab on abx. Medication changes that occurred during hospitalization include: Added Augmentin 875-125 mg twice a day x 7 days Azithromycin 250 mg - take 500 mg on day 1, then 250 mg for 4 days Changed: none Discontinued: none [facility] (04/25/24-05/18/24) Patient arrived with significant debility. Worked well with PT/OT. Medication changes that occurred during hospitalization include: Added - listed on discharge medication list, not on EHR Vitamin D 1000 units once daily Insulin lispro sliding scale (no scale provided) Changed: none Discontinued: none [facility] (05/31/24-06/03/24) Patient presented for evaluation of multiple [...] disorder Type 2 diabetes mellitus without complication ([facility]) Leg weakness, bilateral Lower abdominal pain 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 ([facility]) Depression Hyperglycemia Pyelonephritis Idiopathic hypotension Hospital discharge follow-up Other constipation Pain in both feet Diabetic polyneuropathy associated with type 2 diabetes mellitus ([facility]/HCC) Generalized abdominal pain Unstable gait GERD (gastroesophageal reflux disease) Complicated UTI (urinary tract infection) Anxiety and depression DILLON (acute kidney injury) ([facility]) Orthostatic hypotension Nausea with vomiting Low serum cortisol level Dizziness CHF (congestive heart failure) (CMS/HCC) Hypertensive urgency Forgetfulness Seborrheic dermatitis Urinary incontinence [...] tablet 3 Blood Glucose Monitoring Suppl (FreeStyle [place] Lite) w/Device kit Use to test blood sugar 2 times daily 1 kit 0 Blood Pressure Monitoring (Blood Pressure Cuff) misc Use daily as prescribed 1 each 0 [...] or chew. 30 capsule 2 UltiCare Pen [place] 29G X 12.7MM misc USE FOUR TIMES DAILY 100 each 11 [DISCONTINUED] Lantus SoloStar 100 UNIT/ML pen INJECT 10 UNITS SUBCUTANEOUSLY once daily 3 mL 2 No current facility-administered medications on file prior to visit. Problem List Items Addressed This Visit 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 ([facility]) - Primary Patient's A1c and glucose levels [...] 100 UNIT/ML pen Blood Glucose Monitoring Suppl (HookedStyle [place] Lite) w/Device kit Other Relevant Orders POCT Glucose (Completed) POCT HGB A1C (Completed) CHF (congestive heart failure) ([facility]) Patient seems to be clinically stable today Patient is taking Lasix 20 mg daily I advised to continue with same dose Continue to follow-up with cardiology, stress test and echocardiogram is pending Pneumonia of both lungs due to infectious organism Now resolved UTI (urinary tract infection) Resolved now Acute kidney injury superimposed on CKD ([facility]) ([facility]) I advised patient to avoid nephrotoxic medications Patient needs to be follow-up by nephrology, referral done today Relevant Orders Referral to Nephrology Nausea Relevant Medications ondansetron (Zofran) 4 MG tablet Diabetic polyneuropathy associated with type 2 diabetes mellitus ([facility]) Patient will continue gabapentin 100 mg at [...] Acute kidney injury superimposed on CKD (CMS/HCC) ([facility]) I advised patient to avoid nephrotoxic medications Patient needs to be follow-up by nephrology, referral done today * Assessment & Plan Note - Neelima Gómez MD - 06/29/2024 2:27 PM EST Associated Problem(s): CHF (congestive heart failure) ([facility]) Patient seems to be clinically stable today [...] 2:30 PM EDT Office Visit [facility] [address] [place] [address] Neelima Brown MD [address] [place], [place] [phone] Pending Results Name Type Priority Associated Diagnoses Date /Time Referral to Nephrology Outpatient Referral Routine Acute kidney injury superimposed on CKD ([facility]/HCC) ([facility]) 07/14/2024 Scheduled Referrals Name Type Priority Associated Diagnoses Orde r Schedule Referral to Nephrology Outpatient Referral Routine Acute kidney injury superimposed on CKD ([facility]/HCC) ([facility]) Expected: 06/29/2024 (Approximate), Expires: 06/29/2025 documented as [...] hyperglycemia, with long-term current use of insulin ([facility]) POCT GLUCOSE Routine 06/29/2024 1:14 PM EST 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, with long-term current use of insulin ([facility]) documented in this encounter Results * (ABNORMAL) [...] Media Lot # [id number] Lot# Expiration Date Blood Capillary blood specimen / Unknown 06/29/2024 1:14 PM EST Neelima Gómez MD POINT OF CARE TEST EN TER/EDIT ORDERABLES Final Result documented in this encounter Visit Diagnoses Diagnosis 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, unspecified whether iuss acoustic analyst insulin use ([facility]) Congestive heart failure, unspecified HF chronicity, unspecified heart failure type ([facility]) Pneumonia of both lungs due to infectious organism, unspecified part of lung Urinary tract infection without hematuria, site unspecified Acute kidney injury superimposed on CKD ([facility]/HCC) ([facility]) Nausea Nausea alone Diabetic polyneuropathy associated with type 2 diabetes mellitus ([facility]) documented in this encounter Additional Health Concerns Assessment Noted Time PHQ-9 Depression Total Score: 0 02/29/20 23 1:01 PM EDT documented as of this encounter Care Teams Professional Athlete Relationship Specialty Start Date End Date Neelima Brown MD [address] [place] [id number] PCP - General Family Medicine 01/15/18 Nolvia Delgado Wool And Pelt GraderProduction Boring Machine Operator 08/29/23 Dixon BRANDT 03/05/24 documented as of this encounter
--- OUTSIDE RECORDS SUMMARY | 2024-07-28 14:15 | XMS_ITS | Encounter Summary ---
Author Organization [employer] [facility] Address [address] [place] [address] 7t [place] [address] Care Team Providers Care Mail List Librarian Name Role Phone Neelima Brown MD Primary Care Provide r Reason for Visit * Reason Onset Date Comments Medication Question 01/10/2023 Encounter Details Date Type Department Care Team ([facility] st Contact Info) Description 01/10/2023 Telephone [facility] [address] [place], [place] [phone] Neelima Brown MD [address] [place], [place] [phone] Medication Question Social History Tobacco Use Types [...] 11:26 AM EDT T/C to Elis on [phone] for below message, VNA is with pt. Right now. VNA states she is going to call back. * Telephone Encounter - Kailee Avalos - 01/10/2023 2:46 PM EDT Tc from Elis from [facility] home health requesting a call back to discuss pt med list . Best contact # [phone] documented in this encounter Plan of Treatment Upcoming Encounters Date Type Department Care Team (Late st Contact Info) Description 09/25/2024 2:30 PM EDT Office Visit [facility] [address] [place], [place] [phone] Neelima Brown MD [address] [place], [place] [phone] documented as of this encounter Visit Diagnoses Not on filedocumented in this encounter Care Teams Mail List Librarian Relationship Specialty Start Date End Date Neelima Brown MD [address] [place] [phone] PCP - General Family Medicine 01/15/18 Yara Salas Dental Scheduler 07/01/23 09/27/23 Nolvia Delgado Dental SchedulerVamp Marker 08/29/23 Dixon ARCHIBALD 03/05/24 documented as of this encounter
--- OUTSIDE RECORDS SUMMARY | 2024-07-28 14:15 | XMS_ITS | Encounter Summary ---
Author Organization [employer] Address [address] [place] [address] 7t [place] [address] Care Team Providers Care Tool Crib Lead Name Role Phone Neelima Brown MD Primary Care Provide r Reason for Visit * Reason Onset Date Comments Rebilitation discharge 11/12/2022 Encounter Details Date Type Department Care Team ([facility] st Contact Info) Description 11/12/2022 Telephone [facility] [address] [place], [place] [phone] Neeliam Brown MD [address] [place] [address] Rebilitation discharge Social History Tobacco Use Types [...] pt being recently discharge last Saturday11/09/2022 from [facility] [address] [facility], [place] [address] Please contact son at [phone] documented in this encounter Plan of Treatment Upcoming Encounters Date Type Department Care Team ([facility] st Contact Info) Description 09/25/2024 2:30 PM EDT Office Visit [facility] [address] [place] [address] Neelima Brown MD [address] [place] [address] documented as of this encounter Visit Diagnoses Not on filedocumented in this encounter Care Teams Tool Crib Lead Relationship Specialty Start Date End Date Neelima Brown MD [address] [place] [address] PCP - General Family Medicine 01/15/18 Yara Salas Aerotriangulation Specialist 07/01/23 09/27/23 Nolvia Delgado Aerotriangulation SpecialistMetal Sander And Finisher 08/29/23 Dixon ARCHIBALD 03/05/24 documented as of this encounter
--- OUTSIDE RECORDS SUMMARY | 2024-07-28 14:15 | XMS_ITS | Encounter Summary ---
Author Organization [employer] [facility] Address [address] [place] [address] 7t [place] [address] Care Team Providers Care Route Rider Supervisor Name Role Phone Neelima Brown MD Primary Care Provide r Reason for Visit * Reason Onset Date Comments call back 06/18/2022 Encounter Details Date Type Department Care Team ([facility] st Contact Info) Description 06/18/2022 Telephone [facility] [address] [place], [place] [phone] Neelima Brown MD [address] [place], [place] [phone] call back Social History Tobacco Use Types [...] answering phone call. Please contact sumeet at [phone] documented in this encounter Plan of Treatment Upcoming Encounters Date Type Department Care Team (Late st Contact Info) Description 09/25/2024 2:30 PM EDT Office Visit [facility] [address] [place] [address] Neelima Brown MD [address] [place], [place] [phone] documented as of this encounter Visit Diagnoses Not on filedocumented in this encounter Care Teams Route Rider Supervisor Relationship Specialty Start Date End Date Neelima Brown MD [address] [place] [phone] PCP - General Family Medicine 01/15/18 Yara Salas Production Machine Tender 07/01/23 09/27/23 Nolvia Delgado Production Machine TenderMechanical Development Engineer 08/29/23 Dixon ARCHIBALD 03/05/24 documented as of this encounter
--- OUTSIDE RECORDS SUMMARY | 2024-07-28 14:15 | XMS_ITS | Encounter Summary ---
Demographics Address [address] [place] [address] Mobile Phone Email Address Preferred Language es Marital Status Single Buddhism Affiliation Unknown Race Other Race Ethnic Group or Author Organization [employer] Address [address] [facility] 7t [place] [address] Care Team Providers Care Finish Photographer Name Role Phone Neelima Brown MD Primary Care Provide r Encounter Details Date Type Department Care Team ([facility] st Contact Info) Description 07/17/2024 Population Health [facility] () Department [address] [place] [id number] Provider, Population Health Generic Social History Tobacco Use Types Packs/Day Years [...] Description 09/25/2024 2:30 PM EDT Office Visit [facility] [address] [place], [place] [phone] Neelima Brown MD [address] [place], [place] [phone] documented as of this encounter Goals Goal [...] documented as of this encounter Care Teams Finish Photographer Relationship Specialty Start Date End Date Neelima Brown MD [address] [place], [place] [phone] PCP - General Family Medicine 01/15/18 Nolvia Delgado Stringing Machine TenderDirector Treasurer 08/29/23 Dixon ARCHIBALD 03/05/24 documented as of this encounter
--- OUTSIDE RECORDS SUMMARY | 2024-07-28 14:15 | XMS_ITS | Encounter Summary ---
Author Organization [facility] Address [address] [place] [address] Care Team Providers Care Bobbin Washer Name Role Phone Mckenzie Hernandez MD Primary Care Provider [phone] Encounter Details Date Type Department Care Team (Late st Contact Info) Description 05/13/2024 Lab Requisition [facility] Lab [address] [facility] [place] [address] Mckenzie Hernandez MD [address] [place] [phone] Hyperkalemia Social History Tobacco Use Types Packs/Day [...] LAB CHEMISTRY METHOD 05/14/2024 1:26 PM EST [facility] Potassium 4.9 3.5 - 5.5 mmol/L LAB CHEMISTRY METHOD 05/14/2024 1:26 PM EST [facility] Chloride 108 96 - 110 mmol/L LAB CHEMISTRY METHOD 05/14/2024 1:26 PM EST [facility] CO2 22 21 - 32 mmol/L LAB CHEMISTRY METHOD 05/14/2024 1:26 PM [facility] Anion Gap 7 3 - 11 LAB CHEMISTRY METHOD 05/14/2024 1:26 PM [facility] Glucose 93 70 - 100 mg/dL LAB CHEMISTRY METHOD 05/14/2024 1:26 PM [facility] BUN 48(H) 5 - 25 mg/dL LAB CHEMISTRY METHOD 05/14/2024 1:26 PM [facility] Creatinine 2.50(H) 0.50 - 1.10 mg/dL LAB CHEMISTRY METHOD 05/14/2024 1:26 PM [facility] eGFR 22(L) >=60 mL/min/1. 73m2 LAB CHEMISTRY METHOD 05/14/2024 1:26 PM [facility] Comment:Calculation based on the??Chronic Kidney Disease Epidemiology Collaboration (CKD-EPI) equation refit??without adjustment for race. BUN/Creatinine Ratio 19.2 LAB CHEMISTRY METHOD 05/14/2024 1:26 PM [facility] Calcium 8.8 8.5 - 10.5 mg/dL LAB CHEMISTRY METHOD 05/14/2024 1:26 PM [facility] Blood Venous blood specimen / Unknown Venipuncture / Unknown 05/14/2024 6:06 AM EST 05/14/2024 11:35 AM EST us Mckenzie Hernandez MD LAB BLOOD ORDERABLES Final Resu lt [facility] [address] [place] [address], documented in this encounter Visit Diagnoses Diagnosis Hyperkalemia Hyperpotassemia documented in this encounter Care Teams Bobbin Washer Relationship Specialty Start Date End Date Mckenzie Hernandez MD [address] [place] [phone] PCP - General Hospitalist Medicine 04/27/24 documented as of this encounter
--- OUTSIDE RECORDS SUMMARY | 2024-07-28 14:16 | XMS_ITS | Encounter Summary ---
Author Organization [employer] Address [address] [place] [address] 7t [place] [address] Care Team Providers Care Weather Algorithm Scientist Name Role Phone Neelima Brown MD Primary Care Provide r Reason for Visit * Reason Comments Med Refill Encounter Details Date Type Department Care Team ([facility] st Contact Info) Description 07/22/2024 Refill [facility] [address] [place], [place] [phone] Neelima Brown MD [address] [place], [place] [phone] Anemia, unspecified type Social History Tobacco Use Types Packs/Day Years [...] Office Visit [facility] [address] [place], [place] [phone] Neelima Brown MD [address] [place] [address] documented as of this encounter Goals Goal Patient Goal Type Associated Problems Recent Progress Patient-Stated? Author Eat breakfast every day Diet No Tami Liz PharmD Note: Carbs, protein, fruits and veggies Take your medication every day Lifestyle On track( 023 4:40 PM EST) No Tami Liz PharmD documented as of this encounter Visit Diagnoses Diagnosis Anemia, unspecified type documented in this encounter Additional Health Concerns Assessment Noted Time PHQ-9 Depression Total Score: 0 02/29/20 23 1:01 PM EDT documented as of this encounter Care Teams Weather Algorithm Scientist Relationship Specialty Start Date End Date Neelima Brown MD [address] [place] [address] PCP - General Family Medicine 01/15/18 Nolvia Delgado Project InternSupervisor Shuttle Veneering 4/25/24 Dixon ARCHIBALD 03/05/24 documented as of this encounter
--- OUTSIDE RECORDS SUMMARY | 2024-07-28 14:16 | XMS_ITS | Encounter Summary ---
Author Organization [employer] Address [address] [place] [address] 7t [place] [address] Care Team Providers Care Security Solutions Engineer Name Role Phone Neelima Brown MD Primary Care Provide r Encounter Details Date Type Department Care Team ([facility] st Contact Info) Description 02/03/2024 Telephone [facility] [address] [place], [place] [phone] Neelima Brown MD [address] [place], [place] [phone] Social History Tobacco Use Types Packs/Day Years [...] Description 09/25/2024 2:30 PM EDT Office Visit [facility] [address] [place], [place] [phone] Neelima Brown MD [address] [place] [address] documented as of this encounter Goals Goal [...] documented as of this encounter Care Teams Security Solutions Engineer Relationship Specialty Start Date End Date Neelima Brown MD [address] [place] [address] PCP - General Family Medicine 01/15/18 Nolvia Delgado Photovoltaic Panel InstallerClam Picker 08/29/23 Dixon ARCHIBALD 03/05/24 documented as of this encounter
--- OUTSIDE RECORDS SUMMARY | 2024-07-28 14:16 | XMS_ITS | Encounter Summary ---
Author Organization [employer] [facility] Address [address] [place] [address] 7t [place] [address] Care Team Providers Care Netting Inspector Name Role Phone Neelima Brown MD Primary Care Provide r Reason for Visit * Reason Onset Date Comments Nurse Triage 04/07/2024 Encounter Details Date Type Department Care Team ([facility] st Contact Info) Description 04/07/2024 Telephone [facility] [address] [place], [place] [phone] Neelima Brown MD [address] [place], [place] [phone] Nurse Triage Social History Tobacco Use Types [...] 04/07/2024 10:19 AM EST Triage call with [facility] [place] [id number], Pt son, Bin, is with Pt and [...] Description 09/25/2024 2:30 PM EDT Office Visit [facility] [address] [place], [place] [phone] Neelima Brown MD [address] [place], [place] [phone] documented as of this encounter Goals Goal [...] documented as of this encounter Care Teams Netting Inspector Relationship Specialty Start Date End Date Neelima Brown MD [address] [place] [address] [phone] PCP - General Family Medicine 01/15/18 Nolvia Delgado House AdminUnder Seal Operator 08/29/23 Dixon ARCHIBALD 03/05/24 documented as of this encounter
--- OUTSIDE RECORDS SUMMARY | 2024-07-28 14:16 | XMS_ITS | Encounter Summary ---
Author Organization [employer] Address [address] [place] [address] 7t [place] [address] Care Team Providers Care Parboiler Name Role Phone Neelima Brown MD Primary Care Provide r Reason for Visit * Reason Onset Date Comments chartprep 07/23/2024 Encounter Details Date Type Department Care Team (Late st Contact Info) Description 07/23/2024 Telephone [facility] MEDICINE [address] [place] [address] Kesha Schroeder [place] chartprep Social History Tobacco Use Types Packs/Day Years [...] encounter Miscellaneous Notes * Telephone Encounter - Kesha Schroeder MA - 07/23/2024 1:10 PM EDT Chart Prep Labs: done except urinalysis,urine culture Images: done Vaccines due: yes Referrals: complete Screenings: mammogram , pap smear Overdue care gaps: Glucose, Sbirt, SDOH, PHQ-9, Oral Health, ALEX-7, Disability documented in this encounter Plan of Treatment Upcoming Encounters Date Type Department Care Team (Late st Contact Info) Description 09/25/2024 2:30 PM EDT Office Visit [facility] MEDICINE [address] [place] [address] Neelima Brown MD [address] [place] [address] documented as of this encounter Goals Goal [...] documented as of this encounter Care Teams Parboiler Relationship Specialty Start Date End Date Neelima Brown MD [address] [place] [address] PCP - General Family Medicine 01/15/18 Nolvia Delgado Flash DesignerMaitre D' 08/29/23 Dixon ARCHIBALD 03/05/24 documented as of this encounter
--- OUTSIDE RECORDS SUMMARY | 2024-07-28 14:16 | XMS_ITS | Encounter Summary ---
Author Organization [employer] Address [address] [place] [address] 7t [place] [address] Care Team Providers Care Information Systems Supervisor Name Role Phone Neelima Brown MD Primary Care Provide r Encounter Details Date Type Department Care Team ([facility] st Contact Info) Description 03/15/2023 Telephone [facility] MEDICINE 230 [place], [place] [phone] Neelima Brown MD 230 [place], [place] [phone] Social History Tobacco Use Types Packs/Day Years [...] requesting a call in regards to a [employer] gift card pt received. Please contact son at [phone] documented in this encounter Plan of Treatment Upcoming Encounters Date Type Department Care Team (Late st Contact Info) Description 09/25/2024 2:30 PM EDT Office Visit [facility] MEDICINE [address] [place] [address] Neelima Brown MD 230 [place] [address] documented as of this encounter Visit Diagnoses Not on filedocumented in this encounter Additional Health Concerns Assessment Noted Time PHQ-9 Depression Total Score: 0 02/29/20 23 1:01 PM EDT documented as of this encounter Care Teams Information Systems Supervisor Relationship Specialty Start Date End Date Neelima Brown MD [address] [place] [address] PCP - General Family Medicine 01/15/18 Yara Salas Slunk Skin Curer 07/01/23 09/27/23 Nolvia Delgado Slunk Skin CurerWire Photo Operator 08/29/23 Dixon [facility] 03/05/24 documented as of this encounter
--- OUTSIDE RECORDS SUMMARY | 2024-07-28 14:16 | XMS_ITS | Encounter Summary ---
Author Organization [employer] Address [address] [place] [address] 7t [place] [address] Care Team Providers Care Sample Clerk Name Role Phone Neelima Brown MD Primary Care Provide r Encounter Details Date Type Department Care Team ([facility] st Contact Info) Description 07/28/2024 Orders Only [facility] MEDICINE 230 [place], [place] [phone] Neelima Brown MD 230 [place], [place] [phone] Social History Tobacco Use Types Packs/Day Years [...] Description 09/25/2024 2:30 PM EDT Office Visit [facility] MEDICINE 230 [place], [place] [phone] Neelima Brown MD 230 [place], [place] [phone] documented as of this encounter Goals Goal [...] TO CULTURE Routine 07/28/2024 10:30 AM EDT documented in this encounter Results * (ABNORMAL) Urinalysis, Complete, with Reflex to Culture (07/28/2024 10:30 AM EDT) Color Urine Yellow [facility] Appearance Urine Turbid [facility] PH 8.0 5.0 - 9.0 [facility] Glucose Urine UA Negative Negative mg/dL [facility] Urine Blood Small (1+)(A) Negative [facility] Specific [place] - Urine 1.010 1.005 - 1.025 [facility] Urine Protein 300 (3+)(A) Neg-Trace mg/dL [facility] Urine Ketones Negative Negative mg/dL [facility] Nitrite Urine Negative Negative [facility] Leukocyte Esterase Urine Large (3+)(A) Negative [facility] RBC Urine 0-2 0 - 2 /HPF [facility] Urine WBC >50(A) 0 - 5 /HPF [facility] Urine Squamous Epithelial Cell 6-10 0 - 2 /HPF [facility] Urine Bacteria 4+ None Seen [facility] Hyaline Casts, Urine 0-2 0 - 2 /LPF [facility] 07/28/2024 10:3 0 AM EDT 07/28/2024 1:05 PM EDT Narrative [facility] - 07/28/2024 2:05 PM EDT Urine, Clean Catch us Neelima Gómez MD LAB URINE ORDERABLES Final Result [facility] [address] [place] [phone] documented in this encounter Visit Diagnoses Not on filedocumented in this encounter Additional Health Concerns Assessment Noted Time PHQ-9 Depression Total Score: 0 07/25/19 25 2:18 PM EDT documented as of this encounter Care Teams Sample Clerk Relationship Specialty Start Date End Date Neelima Brown MD [address] [place] [phone] PCP - General Family Medicine 01/15/18 Nolvia Delgado Registered MidwifeDigital Advertising Analyst 08/29/23 Dixon ARCHIBALD 03/05/24 documented as of this encounter
--- OUTSIDE RECORDS SUMMARY | 2024-07-28 14:16 | XMS_ITS | Encounter Summary ---
Author Organization [employer] Address [address] [place] [address] 7t [place] [address] Care Team Providers Care Machine Former Name Role Phone Neelima Brown MD Primary Care Provide r Encounter Details Date Type Department Care Team ([facility] st Contact Info) Description 07/27/2024 Orders Only [facility] MEDICINE 230 [place], [place] [phone] Neelima Brown MD 230 [place], [place] [phone] UTI symptoms (Primary Dx) Social History Tobacco Use Types Packs/Day Years [...] 2:30 PM EDT Office Visit [facility] MEDICINE [address] [place] [phone] Neelima Brown MD 230 [place] [address] documented as of this encounter Goals Goal Patient Goal Type Associated Problems Recent Progress Patient-Stated? Author Eat breakfast every day Diet No Tami Liz, Eric Note: Carbs, protein, fruits and veggies Take your medication every day Lifestyle On track( 023 4:40 PM EST) No Tami Liz PharmD documented as of this encounter Visit Diagnoses Diagnosis UTI symptoms- Primary documented in this encounter Additional Health Concerns Assessment Noted Time PHQ-9 Depression Total Score: 0 07/25/19 25 2:18 PM EDT documented as of this encounter Care Teams Machine Former Relationship Specialty Start Date End Date Neelima Brown MD [address] [place] [address] [phone] PCP - General Family Medicine 01/15/18 Nolvia Delgado Electronic TechnologistMeal Attendant 08/29/23 Dixon ARCHIBALD 03/05/24 documented as of this encounter
--- OUTSIDE RECORDS SUMMARY | 2024-07-28 14:16 | XMS_ITS | Encounter Summary ---
Demographics Address [address] [facility] [address] [place] [address] Mobile Phone Email Address Preferred Language es Marital Status Single Protestant Affiliation Unknown Race Other Race Ethnic Group or Author Organization [employer] Address [address] [place] [address] 7t [place] [address] Care Team Providers Care Measurer Machine Name Role Phone Neelima Brown MD Primary Care Provide r Encounter Details Date Type Department Care Team (Latest Contact Info) Description 07/24/2024 Travel Social History Tobacco Use Types Packs/Day [...] Description 09/25/2024 2:30 PM EDT Office Visit [facility] MEDICINE 230 [place] [address] Neelima Brown MD [address] [place] [address] [phone] documented as of this encounter Goals Goal [...] documented as of this encounter Care Teams Measurer Machine Relationship Specialty Start Date End Date eNelima Brown MD [address] [place] [phone] PCP - General Family Medicine 01/15/18 Nolvia Delgado Psychiatric Security NurseMaster Cook 08/29/23 Dixon ARCHIBALD 03/05/24 documented as of this encounter
--- OUTSIDE RECORDS SUMMARY | 2024-07-28 14:16 | XMS_ITS | Encounter Summary ---
Demographics Address [address] [facility] [address] [place] [address] Mobile Phone Email Address Preferred Language es Marital Status Single Cheondoism Affiliation Unknown Race Other Race Ethnic Group or Author Organization [employer] Address [address] [place] [address] 7t [place] [address] Care Team Providers Care Bail Attacher Name Role Phone Neleima Brown MD Primary Care Provide r Encounter Details Date Type Department Care Team (Latest Contact Info) Description 07/20/2024 Travel Social History Tobacco Use Types Packs/Day [...] Description 09/25/2024 2:30 PM EDT Office Visit [facility] MEDICINE 230 [place] [address] Neelima Brown MD [address] [place] [address] [phone] documented as of this encounter Goals Goal [...] documented as of this encounter Care Teams Bail Attacher Relationship Specialty Start Date End Date Neelima Brown MD [address] [place] [phone] PCP - General Family Medicine 01/15/18 Nolvia Delgado Computer System Validation SpecialistResearch Development Manager 08/29/23 Dixon ARCHIBALD 03/05/24 documented as of this encounter
--- OUTSIDE RECORDS SUMMARY | 2024-07-28 14:16 | XMS_ITS | Encounter Summary ---
Author Organization [employer] [facility] Address [address] [place] [address] 7t [place] [address] Care Team Providers Care Tortilla Maker Name Role Phone Neelima Brown MD Primary Care Provide r Reason for Visit * Reason Comments Hospital follow up Encounter Details Date Type Department Care Team ([facility] st Contact Info) Description 07/24/2024 2:00 PM EDT Office Visit [facility] MEDICINE 230 [place], [place] [phone] Lily Cortes NP 230 [place] [address] Hospital discharge follow-up (Primary Dx); 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, with long-term current use of insulin (CMS/HCC); Serum potassium elevated; Acute on chronic congestive heart failure, unspecified heart failure type (CMS/HCC) Social History Tobacco Use Types Packs/Day [...] Mass Index 23.44 07/24/2024 2:12 PM EDT documented in this encounter Progress Notes * Lily Cortes NP - 07/24/2024 2:00 PM EDT Images from the original note were not included. Subjective Patient ID: Queta Loya presents to office with son Simon for follow up after hospital stay. HPI Queta Loya was admitted at [facility] 07/07/24 - 07/15/24 stay for acute respiratory compromise. Hospital course is outlined below. Today she reports doing well. Continues furosemide which her son believes is 20 mg and she is stilltaking Lokelma. She completed prednisone course she was sent home with Son notes cardiology appointment upcoming in September, he believes its Does not have a scale at home for daily monitoring of weight. Patient is requesting compression stockings. Medications were reconciled Patient Active Problem List Diagnosis Abnormal mammogram Anemia Essential hypertension Weakness Glaucoma Hemoglobin A1C greater than 9%, indicating poor diabetic control Hyperlipidemia Illiteracy and low-level literacy Metabolic encephalopathy Noncompliance with treatment Positive RPR test Tooth disorder Type 2 diabetes mellitus without complication ([facility]) Leg weakness, bilateral Lower abdominal pain 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 ([facility]) Depression Hyperglycemia Pyelonephritis Idiopathic hypotension Hospital discharge follow-up Other constipation Pain in both feet Diabetic polyneuropathy associated with type 2 diabetes mellitus ([facility]) Generalized abdominal pain Unstable gait GERD (gastroesophageal reflux disease) Complicated UTI (urinary tract infection) Anxiety and depression DILLON (acute kidney injury) ([facility]) Orthostatic hypotension Nausea with vomiting Low serum cortisol level Dizziness CHF (congestive heart failure) ([facility]) Hypertensive urgency Forgetfulness Seborrheic dermatitis Urinary incontinence Heartburn Hyperkalemia Pneumonia of both lungs due to infectious organism UTI (urinary tract infection) Acute kidney injury superimposed on CKD ([facility]) ([facility]) Nausea UTI symptoms Current Outpatient Medications on File Prior to [...] tablet 3 Blood Glucose Monitoring Suppl (FreeStyle Mobile Lite) w/Device kit Use to test blood sugar 2 times daily 1 kit 0 Blood Pressure Monitoring (Blood Pressure Cuff) [facility] Use daily as prescribed 1 each 0 ferrous sulfate 324 (65 Fe) MG EC tablet TAKE 1 TABLET BY MOUTH EVERY OTHER DAY 45 tablet 1 FREESTYLE LITE test strip Use to test blood sugar 2 times daily 100 each 12 furosemide (Lasix) 20 MG tablet Take 1 [...] sugar 2 times daily 100 each 0 Lantus SoloStar 100 UNIT/ML pen INJECT 10 UNITS SUBCUTANEOUSLY at bed time 3 mL 2 Lokelma 10 g packet MIX DIRECTED AND TAKE 1 PACKET DAILY DIRECTED metoprolol succinate XL (Toprol XL) 25 MG 24 hr tablet Take 1 tablet (25 mg) by mouth Once per day.Do not crush or chew. 30 tablet 2 Misc. Devices (Fingertip Pulse Oximeter) misc 1 each Once daily. 1 each 0 omeprazole (PriLOSEC) [address] capsule Take 1 capsule (40 mg) by mouth before breakfast. Do not crush or chew. 30 capsule 2 UltiCare Pen Victoria 29G X 12.7MM misc USE FOUR TIMES DAILY 100 each 11 [DISCONTINUED] Blood Glucose Monitoring Suppl (SamesurfStyle Mobile Lite) w/Device kit Use to test blood sugar 2 times daily 1 kit 0 [DISCONTINUED] ferrous sulfate 324 MG EC tablet Take 1 tablet (324 mg) by mouth every other day. 15tablet 2 [DISCONTINUED] furosemide (Lasix) 40 MG tablet Take 1 tablet by mouth Once per day. [DISCONTINUED] Lantus SoloStar 100 UNIT/ML pen INJECT 8 UNITS SUBCUTANEOUSLY once daily 3 mL 2 No current facility-administered medications on file prior to visit. History reviewed. No pertinent surgical history. History reviewed. No pertinent past medical history. reports that she has never smoked. She has never been exposed to tobacco smoke. She has never used smokeless tobacco. She reports that she does not drink alcohol and does not use drugs. Review of Systems Constitutional: Negative. Negative for chills and fever. Respiratory: Negative for chest tightness and shortness of breath. Cardiovascular: Negative for chest pain. Gastrointestinal: Negative for abdominal pain, constipation, diarrhea and nausea. Genitourinary: Negative for dysuria. Musculoskeletal: Negative for arthralgias, back pain, myalgias and neck pain. Skin: Negative. Negative for rash and wound. Neurological: Negative for weakness, light-headedness and headaches. Psychiatric/Behavioral: Negative for behavioral problems, confusion, decreased concentration and suicidal ideas. Objective Vitals: 07/24/24 1412 07/24/24 1434 BP: (!) 141/67 134/62 BP Location: Left arm Left arm Patient Position: Sitting Sitting BP Cuff Size: Adult Adult Pulse: 78 Resp: 18 Temp: 96.9 ??F (36.1 ??C) TempSrc: Temporal SpO2: 90% Weight: 145 lb 3.2 oz (65.9 kg) Height: 5' 6 (1.676 m) Physical Exam Vitals reviewed. Constitutional: General: She is not in acute distress. Appearance: Normal appearance. She is not ill-appearing. HENT: Head: Normocephalic and atraumatic. Right Ear: External ear normal. Left Ear: External ear normal. Nose: Nose normal. Eyes: General: No scleral icterus. Extraocular Movements: Extraocular movements intact. Cardiovascular: Rate and Rhythm: Normal rate and regular rhythm. Pulses: Normal pulses. Heart sounds: Normal heart sounds. Pulmonary: Effort: Pulmonary effort is normal. No respiratory distress. Breath sounds: Normal breath sounds. No rales. Musculoskeletal: General: Normal range of motion. Cervical back: Normal range of motion. Right lower le+ Edema present. Left lower le+ Edema present. Skin: General: Skin is warm. Coloration: Skin is pale. Neurological: General: No focal deficit present. Mental Status: She is alert and oriented to person, place, and time. Gait: Gait normal. Psychiatric: Mood and Affect: Mood normal. Behavior: Behavior normal. Assessment/Plan Diagnoses and all orders for this visit: Hospital discharge follow-up Comments: -patient appears to be well without need for emergency interventions at this time -BMP ordered to eval for resolution of DILLON and elevated K 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, with long-term current use of insulin ([facility]) - POCT Glucose Serum potassium elevated - Basic Metabolic Panel; Future Acute on chronic congestive heart failure, unspecified heart failure type ([facility]) Comments: -Patient is does not appear to be in acute distress -PE reassuring with exception of bilateral lower extremity edema -discussed risk vs benefits of compression stocking in the setting of CHF. Patient is advised to discuss with superintendent custodian janitor as close hemodynamic monitoring is necessary for use -will ask DME team to process prescription for digital scale that will aid in disease management Portuguese interpretation provided by [facility] employee Aiden documented in this encounter Plan of Treatment Upcoming Encounters Date Type Department Care Team (Late st Contact Info) Description 09/25/2024 2:30 PM EDT Office Visit [facility] MEDICINE 230 [place] [address] Neelima Brown MD 230 [place], [place] [phone] Scheduled Orders Name Type Priority Associated Diagnoses Orde r Schedule Basic Metabolic Panel Lab Routine Serum potassium elevated Expected: 07/24/2024 (Approximate), Expires: 07/24/2025 documented as of this encounter Goals Goal Patient Goal Type Associated Problems Recent Progress Patient-Stated? Author Eat breakfast every day Diet No Tami Liz PharmD Note: Carbs, protein, fruits and veggies Take your medication every day Lifestyle On track( 023 4:40 PM EST) No Tami Liz PharmD documented as of this encounter Procedures Procedure Name Priority Date/Time Associated Diagnosis Comments POCT GLUCOSE Routine 07/24/2024 2:21 PM EDT 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, with long-term current use of insulin ([facility]) documented in this encounter Results * POCT Glucose (07/24/2024 2:21 PM EDT) [facility] Signature Glucose Blood, POC 110 60 - 200 mg/dL QC Media Lot # [id number] Lot# Expiration Date 82,625 Blood Capillary blood specimen / Unknown 07/24/2024 2:21 PM EDT Lily Cortes NP POINT OF CARE TEST ENTER/EDIT O RDERABLES Final Result documented in this encounter Visit Diagnoses Diagnosis Hospital discharge follow-up- Primary Other follow-up examination 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, with long-term current use of insulin ([facility]) Serum potassium elevated Hyperpotassemia Acute on chronic congestive heart failure, unspecified heart failure type ([facility]) documented in this encounter Additional Health Concerns Assessment Noted Time PHQ-9 Depression Total Score: 0 07/25/19 25 2:18 PM EDT documented as of this encounter Care Teams Tortilla Maker Relationship Specialty Start Date End Date Neelima Brown MD 230 [place] [address] PCP - General Family Medicine 01/15/18 Nolvia Delgado Wool Hat Sanding Machine OperatorFibrous Wallboard Inspector 08/29/23 Dixon ARCHIBALD 03/05/24 documented as of this encounter
--- OUTSIDE RECORDS SUMMARY | 2024-07-28 14:16 | XMS_ITS | Encounter Summary ---
Demographics Address [address] [facility] [address] [place] [address] Mobile Phone Email Address Preferred Language es Marital Status Single Yarsanism Affiliation Unknown Race Other Race Ethnic Group or Author Organization [employer] Address [address] [place] [address] 7t [place] [address] Care Team Providers Care Environmental Lawyer Name Role Phone Neelima Brown MD Primary Care Provide r Reason for Visit * Reason Onset Date Comments Durable Medical Equipment 07/28/2024 Digita l scale Encounter Details Date Type Department Care Team ([facility] st Contact Info) Description 07/28/2024 Telephone [facility] MEDICINE 230 [place], [place] [phone] Neelima Brown MD 230 [place] [address] Durable Medical Equipment (Digital scale) Social History Tobacco Use Types Packs/Day Years [...] encounter Miscellaneous Notes * Telephone Encounter - Nolvia Palmer - 07/28/2024 12:09 PM EDT DME RX for digital scale generated and placed on providers desk for signature. * Telephone Encounter - Nolvia Palmer - 07/28/2024 12:08 PM EDT ----- Message from Lily Cortes sent at 07/24/2024 7:54 PM EDT ----- Vanita, do you think we can get a digital scale for this patient to monitor daily weights at home. She has CHF and daily weights is an important part of management. If possible generate the DME and I will sign the forms. Thanks documented in this encounter Plan of Treatment Upcoming Encounters Date Type Department Care Team (Late st Contact Info) Description 09/25/2024 2:30 PM EDT Office Visit [facility]IC[facility] 230 [place] [address] Neelima Brown MD 230 [place] [address] documented as of this encounter Goals [...] documented as of this encounter Care Teams Environmental Lawyer Relationship Specialty Start Date End Date Neelima Brown MD [address] [place] [address] PCP - General Family Medicine 01/15/18 Nolvia Delgado Manager Field InvestigationsEmt I/99 08/29/23 Dixon ARCHIBALD 03/05/24 documented as of this encounter
--- OUTSIDE RECORDS SUMMARY | 2024-07-28 14:16 | XMS_ITS | Encounter Summary ---
Author Organization [facility] [facility] Address [address] [place] [address] 7t [place] [address] Care Team Providers Care Export Documents Clerk Name Role Phone Neelima Brown MD Primary Care Provide r Reason for Visit * Reason Onset Date Comments Nurse Triage 03/08/2023 Encounter Details Date Type Department Care Team ([facility] st Contact Info) Description 03/08/2023 Telephone [facility] MEDICINE 230 [place], [place] [phone] Neelima Brown MD 230 [place], [place] [phone] Nurse Triage Social History Tobacco Use Types [...] 03/08/2023 2:49 PM EDT Called pt. Via [employer] translator/interpreter Taco [phone]. Pt. States that she started vomiting x [...] acuity questions The caller accepted this outcome Kazakh Speaker documented in this encounter Plan of Treatment Upcoming Encounters Date Type Department Care Team (Late st Contact Info) Description 09/25/2024 2:30 PM EDT Office Visit [facility] MEDICINE [address] [place] [address] Neelima Brown MD 230 [place] [address] documented as of this encounter Visit Diagnoses Not on filedocumented in this encounter Additional Health Concerns Assessment Noted Time PHQ-9 Depression Total Score: 0 02/29/20 1:01 PM EDT documented as of this encounter Care Teams Export Documents Clerk Relationship Specialty Start Date End Date Neelima Brown MD 230 [place] [address] PCP - General Family Medicine 01/15/18 Yara Salas Microsoft Application Developer 07/01/23 09/27/23 Nolvia Delgado Microsoft Application DeveloperBlock Cutter 08/29/23 Dixon ARCHIBALD 03/05/24 documented as of this encounter
--- OUTSIDE RECORDS SUMMARY | 2024-07-28 14:16 | XMS_ITS | Encounter Summary ---
Author Organization [employer] [facility] Address [address] [place] [address] [address] [place] [address] Care Team Providers Care Policeman Name Role Phone Neelima Brown MD Primary Care Provide r Reason for Visit * Reason Onset Date Comments Nurse Triage 07/21/2024 Encounter Details Date Type Department Care Team ([facility] st Contact Info) Description 07/21/2024 Telephone [facility] MED[facility]INE [address] [place], [place] [phone] Neelima Brown MD [address] [place], [place] [phone] Nurse Triage Social History Tobacco Use Types [...] encounter Miscellaneous Notes * Telephone Encounter - Bharati Lopez RN - 07/21/2024 10:53 AM EDT Please see below as FYI and further advise Red Team primary care team nurses of any further changesto plan of care below. * Telephone Encounter - Bharati Lopez RN - 07/21/2024 10:25 AM EDT No creative writing teacher needed as this scientific technical writer speaks Armenian. Call returned to [facility] to triage below. Spoke with son who is on HIPAA. 208/106 HR 88 on right arm. 174/91 HR 86 on left arm. Pt is taking amlodipine and furosemide. Dose taken this morning, unsure of how long ago. PT denies any MATOS, CP , dizziness. BP kit is for arm. Son states pt is following low sodium diet. Upon repeat at 10:35am Rightarm 160/83 HR 83 , 10:38 am left arm 174/91 HR 81. BS fasting this AM was 350mg/dL. No dry mouth, urinary frequency per son. No UTI sx reported by patient. Son has not yet given Lantus (giving 10 units int the morning, not 8 units at bedtime per last OV note on 06/29/24, no med adjustments to HTN orDM2 meds during Hospitalization). Son given HDF appt for this week as needed (pt declined when called by [facility] for scheduling on 07/17/24). Advised to bring pt to [facility] today for repeat BP and BS check to ensrue on med adjustments needed. Reviewed [facility] operating hours and that wait times vary. Protocol Used: Blood Pressure - High (Adult) Protocol-Based Disposition: Go to Office or Video Visit Now Positive Triage Question: * Systolic BP >= 200 OR Diastolic >= 120 and having NO cardiac or neurologic symptoms * All higher-acuity triage questions were negative Care Advice Discussed: * High Blood Pressure * Reasons To Call Back - Headache, blurred vision, difficulty talking, or difficulty walking occurs - Chest pain or difficulty breathing occurs - You become worse * Telephone Encounter - Desean Martinez - 07/21/2024 10:22 AM EDT Symptoms: High Blood Pressure - Caller Reports, High Blood Sugar - Caller Reports Outcome: Schedule a same-day appointment or talk to a nurse or provider today Reason: Caller denied all higher acuity questions The caller accepted this outcome. Contact pt at [phone] documented in this encounter Plan of Treatment Upcoming Encounters Date Type Department Care Team (Late st Contact Info) Description 09/25/2024 2:30 PM EDT Office Visit [facility] MED[facility]INE [address] [place] [address] Neelima Brown MD [address] [place] [address] documented as of this encounter Goals Goal Patient Goal Type Associated Problems Recent Progress Patient-Stated? Author Eat breakfast every day Diet No Tami Liz, PharmDani Note: Carbs, protein, fruits and veggies Take your medication every day Lifestyle On track( 023 4:40 PM EST) No Tami Liz, Eric documented as of this encounter Visit Diagnoses Not on filedocumented in this encounter Additional Health Concerns Assessment Noted Time PHQ-9 Depression Total Score: 0 02/29/20 23 1:01 PM EDT documented as of this encounter Care Teams Policeman Relationship Specialty Start Date End Date Neelima Brown MD [address] [place] [phone] PCP - General Family Medicine 01/15/18 Nolvia Delgado Sleeve Bottom FellerElement Winding Machine Tender 08/29/23 Dixon ARCHIBALD 03/05/24 documented as of this encounter
--- OUTSIDE RECORDS SUMMARY | 2024-07-28 14:16 | XMS_ITS | Encounter Summary ---
Author Organization [employer] Address [address] [place] [address] [address] [place] [address] Care Team Providers Care Medical Director Name Role Phone Neelima Brown MD Primary Care Provide r Reason for Visit * Reason Onset Date Comments Results 07/28/2024 Encounter Details Date Type Department Care Team ([facility] st Contact Info) Description 07/28/2024 Telephone [facility] MEDICINE [address] [place], [place] [phone] Neelima Brown MD [address] [place], [place] [phone] Results Social History Tobacco Use Types Packs/Day Years [...] encounter Miscellaneous Notes * Telephone Encounter - Iram Bundy RN - 07/28/2024 8:35 AM EDT TC placed to patient [phone] in regards to below message. RN left VM for patient to return a call to Red team nurses. TC placed to patient son ( Bin) [phone] regarding below message. RN spoke with son regarding pt lab results and the need for a UA sample to be provided before taking abx. RN informed son that her labs are normal, however her kidney function has decreased and to increased her fluid intake,pt is to monitor for s/s CHF and at her next appt the PCP will discuss with pt about additional labresults. Pt son verbalized understanding. Pt to F/U PRN. ----- Message from Neelima Gómez MD sent at 07/27/2024 4:27 PM EDT ----- Please let patient know I reviewed her labs, her potassium is normal, her kidney function has decrease a little I advise gentle hydration (patient also has CHF) so to increase water intake only 250mlmore, monitor for weight, edema and breathing, her cholesterol is higher we will discuss this on next appointment, her WBC went up, Im still waiting for UA and culture, she probably has a UTI, I willprescribe for her an antibiotic but first please leave the sample on the lab, she has iron deficiency anemia I advise to c/w ferrous sulfate very other day documented in this encounter Plan of Treatment Upcoming Encounters Date Type Department Care Team (Late st Contact Info) Description 09/25/2024 2:30 PM EDT Office Visit [facility] MEDICINE [address] [place] [address] Neelima Brown MD [address] [place], [place] [phone] documented as of this encounter Goals Goal [...] documented as of this encounter Care Teams Medical Director Relationship Specialty Start Date End Date Neelima Brown MD [address] [place] [phone] PCP - General Family Medicine 01/15/18 Nolvia Delgado Hand ShaperComputer Bookkeeper 08/29/23 Dixon ARCHIBALD 03/05/24 documented as of this encounter
--- OUTSIDE RECORDS SUMMARY | 2024-07-28 14:16 | XMS_ITS | Encounter Summary ---
Demographics Address [address] [place] [address] Mobile Phone Email Address Preferred Language es Marital Status Single Jehovah'S Witness Affiliation Unknown Race Other Race Ethnic Group or Author Organization [employer] Address [address] [place] [address] 7t [place] [address] Care Team Providers Care Seismograph Operator Helper Name Role Phone Neelima Brown MD Primary Care Provide r Encounter Details Date Type Department Care Team (Late st Contact Info) Description 07/24/2024 Orders Only GENERIC EXTERNAL DATA DEPARTMENT Provider, Generic External Data Social History Tobacco Use Types Packs/Day Years [...] Description 09/25/2024 2:30 PM EDT [facility] [address] [place] [address] Neelima Brown MD [address] [place], [place] [phone] documented as of this encounter Goals Goal [...] Associated Diagnosis Comments BASIC METABOLIC PANEL Routine 07/24/2024 2:50 PM EDT documented in this encounter Results * (ABNORMAL) Basic Metabolic Panel (07/24/2024 2:50 PM EDT) Sodium 143 135 - 145 mmol/L [facility] Potassium 3.5 3.3 - 5.1 mmol/L [facility] Chloride 111(H) 96 - 108 mmol/L [facility] Carbon Dioxide 25 22 - 29 mmol/L [facility] Anion Gap 11(L) 12 - 20 [facility] Urea Nitrogen (BUN) 42(H) 9 - 16 mg/dL [facility] Creatinine, Serum 2.02(H) 0.5 - 1.4 mg/dL [facility] Estimated Glomerular Filt Rate 26 [facility] Comment:Chronic Kidney Disea se: Estimated GFR < 60 mL/min/[id number] Kidney Disease: Estimated GFR < 15 mL/min/1.73m2 Glucose 94 60 - 115 mg/dL [facility] Calcium 8.6 8.4 - 10.2 mg/dL [facility] 07/24/2024 2:50 PM EDT 07/24/2024 4:16 PM EDT us Generic External Data Provider LAB BLOOD ORDERAB LES Final Result [facility] [address] [place] [phone] [phone] documented in this encounter Visit Diagnoses Not on filedocumented in this encounter Additional Health Concerns Assessment Noted Time PHQ-9 Depression Total Score: 0 07/25/19 25 2:18 PM EDT documented as of this encounter Care Teams Seismograph Operator Helper Relationship Specialty Start Date End Date Neelima Brown MD [address] [place] [phone] PCP - General Family Medicine 01/15/18 Nolvia Delgado Life Skills SpecialistLab Courier 08/29/23 Dixon ARCHIBALD 03/05/24 documented as of this encounter
--- OUTSIDE RECORDS SUMMARY | 2024-07-28 14:16 | XMS_ITS | Encounter Summary ---
Author Organization [employer] Address [address] [place] [address] 7t [place] [address] Care Team Providers Care Business Planner Name Role Phone Neelima Brown MD Primary Care Provide r Encounter Details Date Type Department Care Team (Late st Contact Info) Description 07/21/2024 1:00 PM EDT Office Visit [facility] [address] [place], [place] [phone] Neelima Brown MD [address] [place], [place] [phone] UTI symptoms (Primary Dx); 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, unspecified whether assisted insulin use ([facility]); Essential hypertension Social History Tobacco Use Types Packs/Day Years [...] Sign Reading Time Taken Comments Blood Pressure 166/80 07/21/2024 12:03 PM EDT Pulse 84 07/21/2024 12:01 PM EDT Temperature 36.3 ??C (97.4 ??F) 07/21/2024 12:01 PM E DT Respiratory Rate - - Oxygen Saturation 99% 07/21/2024 12:01 PM EDT oanh air Inhaled Oxygen Concentration - - Weight - - Height - - Body Mass Index - - documented in this encounter Progress Notes * Carin Massey RN - 07/21/2024 1:00 PM EDT Patient presents to walk in center with complaint of high blood pressure and sugars, pt triaged over the phone in text below. BP here at clinic was 157/80 in left arm and right arm 166/80 pt is asymptomatic denies any CP, SOB, blurred vision. Pt to be evaluated by provider Queta Loya to triage below. Spoke with son who is on HIPAA. 208/106 HR 88 on right arm. 174/91 HR 86 on left arm. Pt is taking amlodipine and furosemide. Dose taken this morning, unsure of how long ago. PT denies any MATOS, CP , dizziness. BP kit is for arm. Son states pt is following low sodium diet. Upon repeat at 10:35am Right arm 160/83 HR 83 , 10:38 am left arm 174/91 HR 81. BS fasting this AMwas 350mg/dL. No dry mouth, urinary frequency per son. No UTI sx reported by patient. Son has not yet given Lantus (giving 10 units int the morning, not 8 units at bedtime per last OV note on 06/29/24, no med adjustments to HTN or DM2 meds during * Neelima Gómez MD - 07/21/2024 1:00 PM EDT SUBJECTIVE: Queta Loya is a 54 y.o. year old female who presents for uncontrolled glucose and HTN also UTI symptoms . Acute Concerns: Patient comes today with her son and they report her glucose has been high for the past 3 mornings in the 300s. They admit she has been having some ice cream lately, patient is getting her Lantus 8 units every morning. They also reports she has been having high blood pressure readings 160s-150s over 90s they reports she has been taking her medication every day without missing any dose but regarding diet she has not been adherent to low-sodium diet. Patient denies headaches, chest pain, shortness of breath, palpitations, dizziness, weakness. Patient is also also complaining of urinary frequency and urine malodor denies fever, blood in the urine, suprapubic pain and flank pain or other urinary symptoms Social History Social History Narrative Lives with 20 year old daughter No VNA services Facing eviction Patient Active Problem List Diagnosis Abnormal mammogram Anemia Essential hypertension Weakness Glaucoma Hemoglobin A1C greater than 9%, indicating poor diabetic control Hyperlipidemia Illiteracy and low-level literacy Metabolic encephalopathy Noncompliance with treatment Positive RPR test Tooth disorder Type 2 diabetes mellitus without complication ([facility]/H[facility]) Leg weakness, bilateral Lower abdominal pain 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 ([facility]) Depression Hyperglycemia Pyelonephritis Idiopathic hypotension Hospital discharge follow-up Other constipation Pain in both feet Diabetic polyneuropathy associated with type 2 diabetes mellitus ([facility]/H[facility]) Generalized abdominal pain Unstable gait GERD (gastroesophageal reflux disease) Complicated UTI (urinary tract infection) Anxiety and depression DILLON (acute kidney injury) ([facility]) Orthostatic hypotension Nausea with vomiting Low serum cortisol level Dizziness CHF (congestive heart failure) ([facility]) Hypertensive urgency Forgetfulness Seborrheic dermatitis Urinary incontinence Heartburn Hyperkalemia Pneumonia of both lungs due to infectious organism UTI (urinary tract infection) Acute kidney injury superimposed on CKD ([facility]) ([facility]) Nausea UTI symptoms No family history on file. Review of Systems Constitutional: Negative. HENT: Negative. Respiratory: Negative. Cardiovascular: Negative. Genitourinary: Positive for frequency. Negative for decreased urine volume, difficulty urinating, dyspareunia, dysuria, enuresis, flank pain, genital sores, hematuria, menstrual problem, pelvic pain,urgency, vaginal bleeding, vaginal discharge and vaginal pain. Neurological: Negative. OBJECTIVE: Vitals: 07/21/24 1201 07/21/24 1203 BP: (!) 157/80 (!) 166/80 BP Location: Left arm Right arm Patient Position: Sitting Sitting BP Cuff Size: Adult Adult Pulse: 84 Temp: 97.4 ??F (36.3 ??C) TempSrc: Temporal SpO2: 99% Physical Exam Constitutional: Appearance: Normal appearance. Cardiovascular: Rate and Rhythm: Normal rate and regular rhythm. Pulmonary: Effort: Pulmonary effort is normal. Breath sounds: Normal breath sounds. Abdominal: General: Abdomen is flat. Palpations: Abdomen is soft. Tenderness: There is no abdominal tenderness. There is no right CVA tenderness or left CVA tenderness. Musculoskeletal: Right lower leg: No edema. Left lower leg: No edema. Neurological: Mental Status: She is alert. Follow Up: No follow-ups on file. Current Outpatient Medications on File Prior to [...] tablet 3 Blood Glucose Monitoring Suppl (FreeStyle [place] Lite) w/Device kit Use to test blood sugar 2 times daily 1 kit 0 Blood Glucose Monitoring Suppl (FreeStyle [place] Lite) w/Device kit Use to test blood [...] or chew. 30 capsule 2 UltiCare Pen [place] 29G X 12.7MM misc USE FOUR TIMES DAILY 100 each 11 [DISCONTINUED] Lantus SoloStar 100 UNIT/ML pen INJECT 8 UNITS SUBCUTANEOUSLY once daily 3 mL 2 No current facility-administered medications on file prior to visit. Problem List Items Addressed This Visit 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 ([facility]) I will go up on her Lantus to 10 units and she is going to receive it at bedtime I advised to log her glucose in the a.m. fasting and also to check in the afternoon after her main meal Relevant Medications Lantus SoloStar 100 UNIT/ML pen UTI symptoms - Primary UA and culture ordered today, order is for the lab patient was not able to produce urine today, shewill be contacted with results Relevant Orders Urinalysis with reflex microscopic Culture, Urine, Routine Essential hypertension I advised low-sodium diet and to take her medications every day without missing any dose I will add today Metropolitan succinate 25 mg daily and I advised to continue with amlodipine 10 mgdaily and her Lasix 40 mg daily I did not add an ARB/HOLGER because patient tends to have high potassium I advised to log her blood pressure for her next appointment and monitor for new medication side effects Relevant Medications metoprolol succinate XL (Toprol XL) 25 MG 24 hr tablet documented in this encounter Miscellaneous Notes * Assessment & Plan Note - Neelima Gómez MD - 07/21/2024 2:29 PM EDT Associated Problem(s): 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 (CMS/HCC) I will go up on her Lantus to 10 units and she is going to receive it at bedtime I advised to log her glucose in the a.m. fasting and also to check in the afternoon after her main meal * Assessment & Plan Note - Neelima Gómez MD - 07/21/2024 2:28 PM EDT Associated Problem(s): UTI symptoms UA and culture ordered today, order is for the lab patient was not able to produce urine today, shewill be contacted with results * Assessment & Plan Note - Neelima Gómez MD - 07/21/2024 2:28 PM EDT Associated Problem(s): Essential hypertension I advised low-sodium diet and to take her medications every day without missing any dose I will add today Metropolitan succinate 25 mg daily and I advised to continue with amlodipine 10 mgdaily and her Lasix 40 mg daily I did not add an ARB/HOLGER because patient tends to have high potassium I advised to log her blood pressure for her next appointment and monitor for new medication side effects documented in this encounter Plan of Treatment Upcoming Encounters Date Type Department Care Team (Late st Contact Info) Description 09/25/2024 2:30 PM EDT Office Visit [facility] [address] [place] [address] Neelima Brown MD [address] [place], [place] [phone] Scheduled Orders Name Type Priority Associated Diagnoses Orde r Schedule Culture, Urine, Routine Microbiology Routine UTI symptoms Expected: 07/21/2024 (Approximate), Expires: 07/21/2025 documented as of this encounter Goals Goal Patient Goal Type Associated Problems Recent Progress Patient-Stated? Author Eat breakfast every day Diet No Tami Liz, Eric Note: Carbs, protein, fruits and veggies Take your medication every day Lifestyle On track( 023 4:40 PM EST) No Tami Liz PharmD documented as of this encounter Procedures Procedure Name Priority Date/Time Associated Diagnosis Comments URINALYSIS WITH REFLEX MICROSCOPIC Routine 07/28/2024 10:30 AM EDT UTI symptoms documented in this encounter Results * (ABNORMAL) Urinalysis with reflex microscopic (07/28/2024 10:30 AM EDT) Color Urine Yellow [facility] Appearance Urine Turbid [facility] PH 8.0 5.0 - 9.0 [facility] Glucose Urine UA Negative Negative mg/dL [facility] Urine Blood Small (1+)(A) Negative [facility] Specific [place] - Urine 1.010 1.005 - 1.025 [facility] Urine Protein 300 (3+)(A) Neg-Trace mg/dL [facility] Urine Ketones Negative Negative mg/dL [facility] Nitrite Urine Negative Negative [facility] Leukocyte Esterase Urine Large (3+)(A) Negative [facility] Urine (Urine, Random) 07/28/2024 10:30 AM EDT 07/28/2024 1:05 PM EDT Narrative [facility] - 07/28/2024 1:34 PM EDT Urine, Clean Catch us Neelima Gómez MD LAB URINE ORDERABLES Final Result [facility] [address] [place] [phone] documented in this encounter Visit Diagnoses Diagnosis UTI symptoms- Primary 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, unspecified whether terminal make up operator insulin use ([facility]) Essential hypertension Unspecified essential hypertension documented in this encounter Additional Health Concerns Assessment Noted Time PHQ-9 Depression Total Score: 0 02/29/20 23 1:01 PM EDT documented as of this encounter Care Teams Business Planner Relationship Specialty Start Date End Date Neelima Brown MD [address] [place] [address] PCP - General Family Medicine 01/15/18 Nolvia Delgado Immigration InvestigatorManager Traffic 08/29/23 Dixon ARCHIBALD 03/05/24 documented as of this encounter
--- OUTSIDE RECORDS SUMMARY | 2024-07-28 14:16 | XMS_ITS | Encounter Summary ---
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, associated with type 2 diabetes mellitus (CMS/HCC) Proliferative diabetic retinopathy of right eye associated with type 2 diabetes mellitus, unspecified proliferative retinopathy type ([facility]) Combined forms of age-related cataract of both eyes Nicole Brumfield, OD [address] [place] [address] Phone: tel: fax: Kenton Downs MD [address] [place] [address] Phone: tel: Referral ID Status Reason Start Date Expiration Date Visits Requested Visits Authorized [id number] Pending Review Specialty Services Required 07/20/2024 07/20/2025 1 1 Reason for Visit * Reason Comments Diabetic Eye Exam Encounter Details Date Type Department Care Team (Latest Contact Info) Description 07/20/2024 2:00 PM EDT Office Visit [facility] [address] [place] [address] Nicole Brumfield, OD [address] [place] [address] 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 female. Chief Complaint Diabetic Eye Exam HPI Here for a diabetic eye exam. She has Type II NIDDM. Her last HbA1c was 6.6% on 06/29/2024. Today the patient complains of blurry vision in both eyes at distance and near. Not currently wearing glasses. When covering her right eye, she reports that she cannot see out of the left eye. She also reports she frequently sees flashes of light in her vision (unclear which eye). Symptoms have notincreased in frequency or number. She denies floaters. Last eye exam was at [facility]. Last edited by Nicole Brumfield, PUSHPA on 07/22/2024 12:45 PM. Current Outpatient Medications Medication Sig Dispense Refill Alcohol Swabs (Alcohol Prep) 70 % pads USE FIVE TIMES DAILY WITH INSULIN 100 each 11 amLODIPine (Norvasc) 10 MG tablet TAKE 1 TABLET BY MOUTH EVERY DAY 90 tablet 1 Aspirin Low Dose 81 MG EC tablet Take 1 tablet (81 mg) by mouth Once per day. 90 tablet 3 Blood Glucose Monitoring Suppl (FreeStyle [place] Lite) w/Device kit Use to test blood [...] or chew. 30 capsule 2 UltiCare Pen [place] 29G X 12.7MM misc USE FOUR TIMES DAILY 100 each 11 No current facility-administered medications for this visit. History reviewed. No pertinent past medical history. History reviewed. No pertinent surgical history. No family history on file. Social History Socioeconomic History Marital status: Single Spouse name: Not on file Number of children: Not on file Years of education: Not on file Highest education level: Not on file Occupational History Not on file Tobacco Use Smoking status: Never Passive exposure: Never Smokeless tobacco: Never Vaping Use Vaping status: Never Used Substance and Sexual Activity Alcohol use: Never Drug use: Never Sexual activity: Not on file Other Topics Concern Not on file Social History Narrative Lives with 20 year old daughter No VNA services Facing eviction Social Drivers of Health Food Insecurity: High Risk (06/26/2023) Food Insecurity Within the past 12 months, you worried that your food would run out before you got money to buy more:: Sometimes True Within the past 12 months,the food you bought just didn't last and you didn't have enough money to get more: : Sometimes True Transportation Needs: Low Risk (06/26/2023) Transportation In the past 12 months, has lack of transportation kept you from medical appts, meetings, work or from getting things needed for daily living? : No Intimate Partner Violence: Not on file Housing Stability: Low Risk (06/26/2023) Housing Stability What is your housing situation today?: I have housing Think about the place you live. Do you have problems with any of the following? : None of the above Allergies Allergen Reactions Shrimp Extract Swelling Other reaction(s): Swelling ROS Positive for: Eyes Negative for: Constitutional, Gastrointestinal, Neurological, Skin, Genitourinary, Musculoskeletal,HENT, Endocrine, Cardiovascular, Respiratory, Psychiatric, Allergic/Imm, Heme/Lymph Last edited by Eryn Rodriguez on 07/20/2024 2:03 PM. Base Eye Exam Visual Acuity (Snellen - Linear) Right Left Dist sc 20/400 - Light Projection Numbers Tonometry (iCare , 2:18 PM) Right Left Pressure 18 16 Pupils Pupils APD Right PERRL None Left PERRL None Visual [place] Left Right Restrictions Total superior temporal, inferior temporal, superior nasal, inferior nasal deficiencies Partial outer inferior nasal deficiency Extraocular Movement Right Left Full Full Neuro/Psych Oriented x3: Yes Mood/Affect: Normal Dilation Both eyes: 1.0% Tropicamide @ 2:21 PM Slit Lamp and Fundus Exam External Exam Right Left External Normal Normal Slit Lamp Exam Right Left Lids/Lashes Normal Normal Conjunctiva/Sclera White and quiet White and quiet Cornea Clear Small nasal pterygium Anterior Chamber Deep and quiet Deep and quiet Iris Flat, no NVI Flat, no NVI Lens 2+ NSC, 3-4+ PSC 2+ NSC, 4+ PSC Fundus Exam Right Left Vitreous Diffuse vitreous banding with likely vitreous hemorrhage inferior periphery Unable to view Disc Busby and Distinct, No NVD Unable to view C/D Ratio Vertical 0.40 C/D Ratio Horizontal 0.40 Macula Unable to view Unable to view Vessels Poor views Poor views, vessels not flat Periphery Large area of either exudation/atrophy in inferonasal periphery, retinal hemorrhages 360 degrees, CWS in all 4 quadrants Likely tractional retinal detachment (able to observe vessels in thevitreous) Poor view in both eyes Refraction Manifest Refraction Sphere Cylinder Dist VA Right -1.75 Sphere 20/400 Left Balance Final Rx Sphere Cylinder Dist VA Right -1.75 Sphere 20/400 Left Balance Expiration Date: 07/22/2025 Assessment/plan: Diagnoses and all orders for this visit: 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 There is the appearance of proliferative diabetic retinopathy in both eyes. There is a likely tractional detachment in the left eye as vessels are elevated into the vitreous. There are hemorrhages and exudates with a likely vitreous hemorrhage inferiorly in the right eye. The patient was educatedthat she has severe diabetic retinopathy in both eyes that needs to be evaluated and treated by a retinal specialist. She was educated that diabetic retinopathy is a leading cause of blindness. Will refer to ophthalmology and share today's findings with her PCP through shared EHR. Will have her return in 6 months for monitoring as well. 2. Proliferative diabetic retinopathy of right eye associated with type 2 diabetes mellitus, unspecified proliferative retinopathy type (CMS/HCC) See plan for #1. 3. Combined forms of age-related cataract of both eyes Visually significant. Patient educated on the need for cataract surgery to improve vision as much as possible. Will refer to ophthalmology. - Referral to Ophthalmology; Future 4. Presbyopia Glasses prescription updated and given. Patient educated that glasses will not significantly improve her vision as the blur is due to cataracts and retinal pathology. Will reevaluate after patient isseen and treated by ophthalmology. Nicole Brumfield, OD 07/22/2024, 1:27 PM Student Name: Eryn Rodriguez I attest that I was physically present with the optometry student. I personally saw and evaluated the patient and performed my own history and examination. I have reviewed, verified, and revised the documented findings as necessary and agree with the content and plan as written. [place]ings [place] Pumper Source: ___ None _x_ Bilingual Staff: Samira ___ Qualified Staff Tanker Service Attendant ___ Telephone [place] Pumper; ID# ___ [place] Pumper brought by patient (family member, friend, ELECTRICAL AND RADIO MECHANIC, etc) ___ In person site interpreter ___ Ipad [place] Pumper; ID#: Language Spoken During Exam: ___Spanish/English documented in this encounter Plan of Treatment Upcoming Encounters Date Type Department Care Team (Late st Contact Info) Description 09/25/2024 2:30 PM EDT Office Visit [facility] [address] [place] [address] Neelima Brown MD [address] [place] [address] Scheduled Referrals Name Type Priority Associated Diagnoses Orde r Schedule Referral to Ophthalmology Outpatient Referral Routine 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, associated with type 2 diabetes mellitus (CMS/HCC)- Primary Proliferative diabetic retinopathy of right eye associated with type 2 diabetes mellitus, unspecified proliferative retinopathy type (CMS/HCC) Combined forms of age-related cataract of both eyes Presbyopia documented in this encounter Additional Health Concerns Assessment Noted Time PHQ-9 Depression Total Score: 0 02/29/20 23 1:01 PM EDT documented as of this encounter Care Teams Senior Air Director Relationship Specialty Start Date End Date Neelima Brown MD [address] [place] [phone] PCP - General Family Medicine 01/15/18 Nolvia Delgado Materials AnalystRegulatory Services Consultant 08/29/23 Dixon ARCHIBALD 03/05/24 documented as of this encounter
--- OUTSIDE RECORDS SUMMARY | 2024-07-28 14:16 | XMS_ITS | Encounter Summary ---
Author Organization [employer] Address [address] [place] [address] [address] [place] [address] Care Team Providers Care Center Receptionist Name Role Phone Neelima Brown MD Primary Care Provide r Reason for Visit * Reason Comments Care Coordination Outreach Encounter Details Date Type Department Care Team (Latest Contact Info) Description 07/23/2024 Patient Outreach [facility] [address] [place], [place] [phone] Neelima Brown MD [address] [place], [place] [phone] Care Coordination (Outreach) Social History Tobacco Use [...] encounter Progress Notes * Annalisa Yang - 07/23/2024 1:50 PM EDT CHW Annalisa Yang , placed outbound call to patient in regards to offer services. CHW introducing herself from [facility] CM Department with CHW's name, department and direct contact [phone] requesting call back. Will re-attempt to contact within 5 days. and address not confirmed. documented in this encounter Plan of Treatment Upcoming Encounters Date Type Department Care Team ([facility] st Contact Info) Description 09/25/2024 2:30 PM EDT Office Visit [facility] [address] [place] [address] Neelima Brown MD [address] [place] [address] documented as of this encounter Goals Goal [...] documented as of this encounter Care Teams Center Receptionist Relationship Specialty Start Date End Date Neelima Brown MD [address] [place] [phone] PCP - General Family Medicine 01/15/18 Nolvia Delgado Floor Covering ContractorDie Filer 08/29/23 Dixon ARCHIBALD 03/05/24 documented as of this encounter
== END 2024-07-28 11:30 | disposition home or self-care (01) ==
LOC: HO.HHCL 11:29
PROVIDERS: Visit Provider Internal Medicine
DX: R39.9 Unspecified symptoms and signs involving the genitourinary system (principal)
CPT/HCPCS: 81001; 87086; 87088; 87186

== ENCOUNTER 2024-08-05 19:06 | Inpatient (IN) | payer MEDICAID, SELFPAY ==
--- NOTE | ~2024-08-05 | XR_ITS ---
CLINICAL HISTORY: hypoxia 1 view chest x-ray Comparison: Chest x-ray from 07/10/2024 Findings: Overall improvement and/or decrease in small bilateral pleural effusions. Moderate to severe bilateral airspace disease is nonspecific. Differential considerations include recurrent pulmonary edema. Pneumonitis and pneumonia also considered given asymmetry of the opacities. No pneumothorax in this portable image. Cardiomegaly accentuated by technique and partly obscured. No definite osseous change in the [id number]. IMPRESSION: 1. Moderate to severe airspace disease. Differential considerations include recurrent pulmonary edema. Pneumonia also considered particularly in the lung bases. 2. Small pleural effusions. This document has been electronically signed by: Luis Saravia MD on 08/08/2024 23:25:18
--- NOTE | ~2024-08-05 | XR_ITS ---
EXAMINATION: XR CHEST CLINICAL INFORMATION: Post right thoracentesis COMPARISON: 08/11/2024. 08/08/2024. TECHNIQUE: Frontal view of the chest was obtained. FINDINGS: Cardiac silhouette is partially obscured on the left. There is probable cardiac enlargement. Mediastinal and right hilar contours are normal. Left hilum is partially obscured. Right-sided effusion is completely resolved. Left-sided effusion remains, small to moderate in size. Improved pulmonary edema pattern from prior day. No definite focal pneumonia. No perceptible pneumothorax. No focal osseous or soft tissue abnormality. XR/XR chest 1V IMPRESSION: No perceptible pneumothorax status post thoracentesis. Improved pulmonary edema pattern. Cardiomegaly. Electronically signed by: Duane Elena MD 08/17/2024 04:57 PM EDT
--- NOTE | ~2024-08-05 | XR_ITS ---
EXAMINATION: XR CHEST CLINICAL INFORMATION: post left thora COMPARISON: 08/17/2024. TECHNIQUE: Frontal view of the chest was obtained. FINDINGS: Mild cardiac enlargement. Mediastinal and hilar structures otherwise normal. Left effusion has resolved. There is no perceptible pneumothorax. A tiny right effusion is now evident. Mild pulmonary vascular congestion is present throughout both lungs. XR/XR chest 1V IMPRESSION: No definite pneumothorax status post left thoracentesis. Mild to moderate CHF. Cardiomegaly. Tiny right effusion has reaccumulated. Electronically signed by: Duane Elena MD 08/18/2024 04:15 PM EDT
--- NOTE | ~2024-08-05 | US_ITS ---
EXAMINATION: ULTRASOUND-GUIDED LEFT THORACENTESIS CLINICAL INFORMATION: Left pleural effusion, therapeutic drainage. COMPARISON: Chest x-ray dated prior day. Right thoracentesis dated prior day. TECHNIQUE/FINDINGS: Risks and benefits of the procedure were explained to the patient in detail, with the aid of an maintenance painter. Informed consent was obtained. Timeout was performed verifying appropriate laterality and site. Utilizing ultrasound guidance, a suitable pocket of left pleural fluid was identified in the left inferior thorax, and the overlying skin marked, prepped and draped in sterile fashion. Skin and subcutaneous soft tissues were anesthetized with 1% lidocaine. Subsequently, a 5 [employer] catheter was inserted into the fluid pocket, and 1200 mL of ashish, clear pleural fluid was removed via vacuum bottle. The catheter was removed. There were no immediate complications. The patient tolerated the procedure well. Postprocedural chest x-ray shows no evidence of pneumothorax. US/US thoracentesis IMPRESSION: Successful therapeutic left thoracentesis with drainage of 1200 mL ashish clear pleural fluid. No immediate complication. Electronically signed by: Duane Elena MD 08/18/2024 04:18 PM EDT
--- NOTE | ~2024-08-05 | CT_ITS ---
CLINICAL HISTORY: abd pain, blood in vomitus CT abdomen and pelvis without contrast Comparison: CT/SR - CT CHEST WO IV CON - 05/16/24 11:[address]/SR - CT ABDOMEN PELVIS WO IV CON - 04/07/24 12:47 EST Findings: Study limited by lack of intravenous contrast. Specifically, evaluation of the vascular tree, solid abdominal organs, and gastrointestinal tract be limited without IV contrast administration. CT abdomen: Large bilateral pleural effusions with dense consolidation within the dependent portion of the lower lobes bilaterally. No acute bony lesions. Anasarca with diffuse 3rd spacing throughout the abdomen. Gallbladder is surgically absent. No discrete mass lesions are seen within the unenhanced liver, spleen, pancreas, adrenal glands, or kidneys. Mild fluid distention of the stomach with scattered small bowel air-fluid levels throughout the abdomen and pelvis. No free air. CT pelvis: Massive anasarca. Diffuse third-spacing throughout the subcutaneous fat mesenteric fat. Urinary bladder is moderately distended. High-density contrast material seen within the majority of the colon, especially of the distal colon. No free spill of contrast material is identified. Small-bowel air-fluid levels are seen throughout the pelvis. Appendix is unremarkable. No free air. Trace free fluid. IMPRESSION: 1. Massive anasarca with diffuse volume overload. 2. Large pleural effusions with dense consolidation within the dependent portion of the lower lobes bilaterally, likely compressive atelectasis. 3. Scattered small bowel air-fluid levels throughout the abdomen and pelvis suggestive of ileus or enteritis. Findings are not highly suggestive of obstruction. This document has been electronically signed by: Errol Meek MD on 08/06/2024 01:46:19
--- NOTE | ~2024-08-05 | US_ITS ---
EXAMINATION: ULTRASOUND-GUIDED THORACENTESIS CLINICAL INFORMATION: Bilateral pleural effusion. COMPARISON: Chest x-ray 08/11/2024 TECHNIQUE: Following explaining thoracentesis procedure, benefits and risk through a gristmill operator , a written consent was obtained. Preliminary ultrasound imaging was performed from bilateral posterior pleural space. There is a large effusion seen in the right lung. Preliminary ultrasound imaging was performed and optimal site selected along the right posterior infrascapular line. The area was marked on the skin. Cleaned and draped in usual sterile manner. 1% lidocaine was administered at puncture site. Through a small skin incision a 4 Croatian Yueh catheter was advanced into the peritoneal space. After observing fluid return, stylet was withdrawn and catheter connected to vacuum bottle. After obtaining all fluid and observing patient having some right shoulder pain, catheter was immediately removed and complete hemostasis achieved puncture site. Sterile dressing applied post procedure. Patient was monitored during the entire exam. No postprocedure complications noted. An inspiration and expiration was ordered post procedure. FINDINGS: Preliminary ultrasound imaging there is mild/moderate to large right and a small to moderate left pleural effusion. The left pleural effusion has septations and likely complicated. Approximately 1300 mL of clear fluid was removed and sent to cytology for further evaluation as requested by referring physician. US/US thoracentesis IMPRESSION: Successful ultrasound-guided therapeutic and diagnostic left paracentesis performed without immediate complications. Electronically signed by: Jeremiah Farr MD 08/18/2024 08:44 AM EDT
--- NOTE | ~2024-08-05 | XR_ITS ---
EXAMINATION: XR CHEST CLINICAL INFORMATION: increase oxygen demand COMPARISON: August 08, 2024. TECHNIQUE: Frontal view of the chest was obtained. FINDINGS: Patchy opacity both pulmonary hilum. Haziness and opacities in the lower hemithoraces. Blunting of the diaphragm and the inferior cardiomediastinal silhouette margins. Heart silhouette size is normal. No pneumothorax. Osseous structures are intact. Patient's large body habitus. XR/XR chest 1V IMPRESSION: Pulmonary edema and bilateral pleural effusions, moderate to large volume. Multifocal pneumonia since less likely. Electronically signed by: Farzad Castillo MD 08/11/2024 08:46 AM EDT
[2024-08-05 19:19] VITALS: BP 152/88; PULSE 70; O2SAT 97
[2024-08-05 19:33] VITALS: BP 139/52; PULSE 65; RESP 20; TEMP 36.2; O2SAT 96; BMI 22.0
--- NOTE | 2024-08-05 19:39 | ED.NAVMDI ---
HPI - Nausea/Vomiting/Diarrhea General Chief complaint: Nausea/Vomiting/Diarrhea Stated complaint: N/V, blood in vomit, abd rigid Time Seen by Provider: 08/05/24 22:16 Source: patient and family (Son Bin) Mode of arrival: EMS Limitations: language barrier (Patient's speaks [place]ian only, [facility] sign language interpreter used. Son speaks Belarusian and Barbadian) History of Present Illness ED Provider: Dr. Kamlesh Matson HPI Narrative: 54-year-old Belarusian-speaking female with a past medical history significant for COPD on O2 2-3 L via NC, chronic systolic and diastolic congestive heart failure and pleural effusions (requiring thoracentesis in the past), diabetes on insulin, chronic anemia requiring blood transfusion in the past, essential hypertension, orthostatic hypotension and hyperlipidemia, who presents emergency department for evaluation of nausea and 1 episode of vomiting which contained dark blood. Patient states that she has been having nausea all day and had 1 episode of vomiting at 18:00 hours. Her son states that the patient vomited in a bucket that was half full and there was dark blood in the emesis. This is her 1st episode of hematemesis. The patient states that her legs are heavy and painful otherwise she was no other complaints. She denied fever, chills, cough, chest pain. She states she does feel short of breath but this is consistent with her baseline. She denied dark or bloody stools. She denied frequency, urgency or dysuria. The patient was from 07/07/2024 to 07/15/2024 for acute on chronic respiratory failure caused by acute on chronic congestive heart failure and mild COPD exacerbation. Patient was creatinine was initially 29 and 2.37 but increased to 76 and 2.70 secondary to furosemide diuresis. Related Data Home Medications ?Medication ?Instructions ?Recorded ?Confirmed aspirin 81 mg tablet,delayed 1 tab PO DAILY 07/21/22 08/06/24 release ferrous sulfate 324 mg (65 mg 324 mg PO DAILY 04/07/24 08/06/24 iron) tablet,delayed release gabapentin 100 mg capsule 100 mg PO BEDTIME 05/31/24 08/06/24 insulin glargine 100 unit/mL 10 unit subcut BEDTIME 07/07/24 08/06/24 subcutaneous solution (Lantus U-100 Insulin) ondansetron HCl 4 mg tablet 4 - 8 mg PO Q8H PRN nausea/vomiting 07/07/24 08/06/24 furosemide 40 mg tablet 40 mg PO DAILY 08/06/24 08/06/24 metoprolol succinate 25 mg 25 mg PO DAILY 08/06/24 08/06/24 tablet,extended release 24 hr Previous Rx's ?Medication ?Instructions ?Recorded blood sugar diagnostic (FreeStyle #100 ea 10/02/22 Test strips) amlodipine 10 mg tablet 10 mg PO DAILY #30 tabs 09/19/23 sodium zirconium cyclosilicate 10 10 g PO DAILY #30 ea 07/15/24 gram oral powder packet (Lokelma) Allergies Allergy/AdvReac Type Severity Reaction Status Date / Time shrimp Allergy Swelling Verified 08/05/24 19:36 Review of Systems Review of Systems: Yes all other systems are reviewed and are negative [facility] Past Medical History Medical History Pneumonia of both lungs due to infectious organism Heartburn Urinary incontinence Seborrheic dermatitis Forgetfulness Low serum cortisol level Nausea with vomiting Acute kidney injury Anxiety GERD (gastroesophageal reflux disease) Unstable gait Diabetic polyneuropathy associated with type 2 diabetes mellitus Other constipation Idiopathic hypotension Lower abdominal pain Leg weakness Tooth disorder Positive RPR test Noncompliance with treatment Metabolic encephalopathy Illiteracy and low-level literacy Glaucoma Chest pain Congestive heart failure Bilateral pleural effusion Anemia CHF (congestive heart failure) Urinary tract infection Hypertension Symptomatic anemia Brain lesion Iron deficiency anemia HLD (hyperlipidemia) Depression Type 2 diabetes mellitus Family History Family History Other Hypertension Social History Social History Household Members: Children Household Members Other:: Daughter Housing: Apartment Do you presently have visiting nurse or other home services: Yes Unable to assess alcohol history related to: Unable to respond Alcohol intake: former Patient Tobacco Use Status: Never used Tobacco e-Cigarette/Vaping Use: Never Used Second Hand Smoke Exposure: No Advance Directives: Yes Advance Directives on File: Yes Advance Directives Date on File: 06/19/21 Patient : No service: No Current occupational status: unemployed Physical Exam Vital Signs: Vital Signs: Last Vital Signs Temp 97.5 F 08/06/24 07:55 Pulse 66 08/06/24 07:55 Resp 16 08/06/24 07:55 BP 157/68 H 08/06/24 07:55 Pulse Ox 94 08/06/24 04:47 O2 Del Method Nasal Cannula 08/06/24 04:47 O2 Flow Rate 1 08/06/24 04:47 BMI result Body Mass Index 22.0 Vital signs revealed an elevated BP of 145/48 otherwise unremarkable. Exam: General: Awake, alert in no distress Head: Normocephalic, atraumatic EENT: PERRL, Lids normal, sclera normal, conjunctiva normal, nose normal , ears normal, throat without erythema or exudates Neck: Supple, no adenopathy Lung: breath sounds symmetric, no wheezing, rales or rhonchi Chest: symmetric movement, nontender Heart: regular rate and rhythm, normal S1, S2 no murmurs or rubs Abdomen: soft, non-tender, nondistended, normal bowel sounds Back: no vertebral tenderness, no CVAT Extremities: Patient was trace to 1+ pitting edema in her lower extremities which are bilaterally symmetric Neuro: Awake, alert, oriented, normal speech, cranial nerves intact, moves all extremities symmetrically Psych: Pleasant, cooperative Course Course Course Narrative: This is an RME: Additional HPI, ROS, PE not included below will be deferred to primary provider. RME assessment and note performed by: Melisa Ward PA-C This is a 54-year-old female, COPD on home oxygen 2-3L/min, chronic systolic and diastolic congestive heart failure and pleural effusions (requiring thoracentesis in the past), diabetes mellitus on insulin, chronic anemia requiring blood transfusion in the past, who presents emergency department with complaints of vomiting and epigastric pain that started this evening around 6:00 p.m.. She states that she saw tiny bits of blood mixed in with vomit. She was brought in by EMS. She was placed on oxygen however patient maintain oxygen saturation, 96% on room air. She is well-appearing under no acute distress. Plan: Labs, EKG, further ER evaluation needed. Medications Administered Generic Name Dose Route Start Last Admin Trade Name Freq PRN Reason Stop Dose Admin Dextrose 25 gm 08/06/24 00:30 08/06/24 06:47 Dextrose 50 % 25 Gm/50 Ml Syringe IVPUSH 25 gm Q15M PRN Administration per Hypoglycemia Standing Ord. Protocol Insulin Human Lispro 0 unit 08/06/24 00:30 08/06/24 07:03 Insulin Lispro 100 Unit/Ml 3 Ml Vial SUBCUT Not Given Q6H JM Protocol Pantoprazole Sodium 40 mg 08/06/24 06:30 08/06/24 06:01 Pantoprazole Sodium 40 Mg/10 Ml Vial IVPUSH 40 mg BID@0630,1630 JM Administration Sodium Chloride 3 ml 08/06/24 08:00 08/06/24 07:16 0.9 % Sodium Chloride Flush 3 Ml Syringe IVFLUSH Not Given QSHIFT JM Discontinued Medications Generic Name Dose Route Start Last Admin Trade Name Freq PRN Reason Stop Dose Admin Diphenhydramine HCl 25 mg 08/05/24 22:49 08/05/24 23:09 Diphenhydramine Hcl 50 Mg/Ml Vial IVPUSH 08/05/24 22:50 25 mg ONCE ONE Administration Potassium Chloride 10 meq in 100 mls @ 100 mls/hr 08/05/24 22:45 08/06/24 01:01 Potassium Chloride/H20 IV 08/06/24 00:44 Infused Q1H JM Infusion Sodium Chloride 1,000 mls @ 999 mls/hr 08/05/24 22:49 08/05/24 23:53 Ns IV 08/05/24 23:49 Infused .Q1H1M STA Infusion Sodium Chloride 500 mls @ 500 mls/hr 08/05/24 23:15 08/06/24 02:12 Ns IV 08/06/24 00:14 Not Given .Q1H JM Potassium Chloride 10 meq in 100 mls @ 100 mls/hr 08/05/24 23:15 08/06/24 04:14 Potassium Chloride/H20 IV 08/06/24 01:14 Infused Q1H JM Infusion Potassium Chloride 10 meq in 100 mls @ 100 mls/hr 08/06/24 00:30 08/06/24 08:28 Potassium Chloride/H20 IV 08/06/24 04:29 Infused Q1H JM Infusion Metoclopramide HCl 10 mg 08/05/24 22:49 08/05/24 23:09 Metoclopramide Hcl 10 Mg/2 Ml Vial IVPUSH 08/05/24 22:50 10 mg ONCE STA Administration Pantoprazole Sodium 80 mg 08/06/24 00:17 08/06/24 01:05 Pantoprazole Sodium 40 Mg/10 Ml Vial IVPUSH 08/06/24 00:18 80 mg ONCE ONE Administration Medical Decision Making Medical Decision Making MDM Narrative: 54-year-old Belarusian-speaking female with a past medical history significant for COPD on O2 2-3 L via NC, chronic systolic and diastolic congestive heart failure and pleural effusions (requiring thoracentesis in the past), diabetes on insulin, chronic anemia requiring blood transfusion in the past, essential hypertension, orthostatic hypotension and hyperlipidemia, who presents emergency department for evaluation of nausea and 1 episode of vomiting which contained dark blood. Patient complained of nausea all day and had 1 episode of hematemesis at 18:00 hours. This is the patient's 1st episode of hematemesis. Patient was admitted from 07/07/2024 to 07/15/2024 for acute on chronic respiratory failure secondary to congestive heart failure and COPD exacerbation. During that admission she was diuresed and her BUN creatinine increased to 76 and 2.70 at the time of discharge. At the time my evaluation she was complaining of nausea and pain and swelling of the lower extremities but denied abdominal pain. Vital signs revealed an elevated blood pressure otherwise unremarkable. Physical examination revealed trace to 1+ pitting edema in her lower extremities. Rectal exam revealed brown stool which was trace Hemoccult-positive. Differential diagnosis: ?Includes but is not limited to upper GI bleed, Rosita-Weston tear, viral syndrome, COVID-19, influenza, RSV, dehydration, volume depletion, electrolyte abnormalities, anemia Course: 23:30 My interpretation patient's laboratory evaluation is as follows: Chronic normocytic anemia with an H&H of 7.7 and 22.3. Potassium low 2.6. BUN creatinine were elevated at 43 and 3.39 compared to 07/24/2024 when BUN and creatinine were 44 and 2.13. ALT elevated 38.5. Alk-phos elevated 122. Troponin is elevated at 17.5. Lipase was normal at 18. COVID-19, RSV and influenza were negative. I did discuss the patient's laboratory findings with the covering store receiving specialist, Dr. Mills. He recommended that the patient get 500 cc of normal saline IV and potassium chloride 10 mEq per 100 mL x4 with the thought that each 10 mEq will increased potassium by 0.1. At this time I believe the patient will need to be admitted so that we can follow her acute kidney injury, her potassium and H&H to make sure that she does not have worsening anemia secondary to an upper GI bleed. I did discuss the patient's presentation with the covering hospitalist, Dr. Douglass and the patient will be admitted to the hospitalist service for further treatment Admission/Observation Consideration of admission/observation: Escalation of care including admission/observation considered (Yes) Consult Healthcare Provider Management of the patient was discussed with: Hospitalist (Dr. Douglass) Lab Data MDM Lab Attestation statement: I reviewed the patient's lab results. 08/06/24 04:43 08/06/24 04:43 Labs: Lab Results 08/05/24 08/05/24 Range/Units 21:02 23:04 WBC 6.1 (4.8-10.8) X10*3/uL RBC 2.60 L (4.20-5.50) X10*6/uL Hgb 7.7 L (12.0-16.0) g/dl Hct 22.3 L (37.0-47.0) % MCV 85.8 (80.0-98.0) fL MCH 29.6 (27.0-33.0) pg MCHC 34.5 (31.0-35.0) g/dl RDW 14.9 (11.0-16.0) % Plt Count 192 (160-400) X10*3/uL MPV 8.4 L (9.4-12.3) fL Immature Gran % (Auto) 0.3 (0.0-0.4) % Neut % (Auto) 63.1 (45-73) % Lymph % (Auto) 27.5 (20-40) % [place] % (Auto) 5.4 (2-11) % Eos % (Auto) 3.4 (0-4) % Baso % (Auto) 0.3 (0-2) % Lymph # (Auto) 1.7 (1.2-4.9) X10*3/uL [place] # (Auto) 0.3 (0.1-1.2) X10*3/uL Eos # (Auto) 0.2 (0.0-0.4) X10*3/uL Baso # (Auto) 0.0 (0.0-0.2) X10*3/uL Abs Immat Gran (auto) 0.02 (0.00-0.03) X10*3/uL Absolute Neuts (auto) 3.9 (2.0-8.3) x10*3/uL Absolute Nucleated RBC 0.000 (0.0-0.012) X10*3/uL Nucleated RBC % (auto) 0.0 (0.0-0.2) /100WBC Sodium 140 (135-145) mmol/L Potassium 2.6 L* D (3.3-5.1) mmol/L Chloride 109 H (96-108) mmol/L Carbon Dioxide 23 (22-29) mmol/L Anion Gap 11 L (12-20) BUN 43 H (9-16) mg/dL Creatinine 3.39 H (0.5-1.4) mg/dL Estim Creat Clear Calc 18.9 Estimated GFR 14 Random Glucose 87 (60-115) mg/dL Calcium 8.4 (8.4-10.2) mg/dL Magnesium 2.5 (1.6-2.6) mg/dL Total Bilirubin 0.2 (0.0-1.0) mg/dL Direct Bilirubin < 0.2 (0.0-0.5) mg/dL AST 27 (5-31) U/L ALT 38 H (0-31) U/L Alkaline Phosphatase 122 H (39-117) U/L Troponin I High Sens 17.5 H (<3.5-17.0) ng/L Total Protein 6.3 L (6.5-8.0) g/dL Albumin 3.1 L (3.5-5.0) g/dL Lipase 18 (8-78) U/L Stool Occult Blood POSITIVE (NEGATIVE) Influenza Type A (PCR) NEGATIVE (Negative) Influenza Type B (PCR) NEGATIVE (Negative) RSV RNA Qual (PCR) NEGATIVE (Negative) SARS-CoV-2 RNA (RT-PCR) NEGATIVE (Negative) Independent Interpretation I performed an independent interpretation of an: EKG Interpretation: My independent interpretation patient's 12 EKG done on 08/05/2024 at 21:04 hours is as follows: Normal sinus rhythm with a rate of 64, normal SC interval, QRS duration and QTC interval, no ST segment elevation, no ST segment depression, flattened T-waves diffusely. Independent Historian Clinical information obtained from an independent historian. History obtained from or confirmed by: Other (Son) External Record Review External record reviewed: Inpatient record (Recent admission admission and discharge summary) Chronic Conditions Patient?s care impacted by: Diabetes and Other (Chronic kidney disease) Critical Care Time Critical Care Time Critical Care Time: Yes Total Critical Care Time: 45 Attestation: Critical Care: The patient was critically ill with a high probability of imminent or life threatening deterioration. I spent greater than 30 minutes of discontinuous time evaluating the patient,delivering critical care at the bedside, discussing and evaluating pertinent data with consultants. Critical care time does not include time spent performing separately billable procedures or teaching. Total time spent performing critical care was 45 minutes. Discharge Plan Discharge Clinical Impression: Hematemesis, Acute kidney injury superimposed on chronic kidney disease, Nausea, Acute hypokalemia Patient Disposition: Admitted As Inpatient
--- NOTE | 2024-08-05 19:41 | ECG_ITS ---
Test Reason : NAUSEA/VOMITING Blood Pressure : */* mmHG Vent. Rate : 64 BPM Atrial Rate : 64 BPM P-R Int : 164 ms QRS Dur : 78 ms QT Int : 462 ms P-R-T Axes : 56 9 13 degrees QTcB Int : 476 ms Normal sinus rhythm Possible Anterior infarct (cited on or before 07-Jul-2024) Abnormal ECG When compared with ECG of 07-Jul-2024 17:15, Nonspecific T wave abnormality, improved in Lateral leads Referred By: Melisa Hameed Electronically Signed By: SHANTI AVENDANO
[2024-08-05 21:10] LABS: MANUAL DIFF FLAG NO
[2024-08-05 21:11] LABS: Basophils Percent Auto 0.3 % (0-2); Eosinophils Absolute Auto 0.2 X10*3/uL (0.0-0.4); Eosinophils Percent Auto 3.4 % (0-4); Hematocrit 22.3 % (37.0-47.0); Hemoglobin 7.7 g/dl (12.0-16.0); Imm Gran Abs Auto 0.02 X10*3/uL (0.00-0.03); Imm Gran Pct Auto 0.3 % (0.0-0.4); Lymphocytes Absolute Auto 1.7 X10*3/uL (1.2-4.9); Lymphocytes Percent Auto 27.5 % (20-40); Mean Corpuscular HGB Conc 34.5 g/dl (31.0-35.0); Mean Corpuscular Hemoglobin 29.6 pg (27.0-33.0); Mean Corpuscular Volume 85.8 fL (80.0-98.0); Mean Platelet Volume 8.4 fL (9.4-12.3); Monocytes Absolute Auto 0.3 X10*3/uL (0.1-1.2); Monocytes Percent Auto 5.4 % (2-11); Neutrophils Absolute Auto 3.9 x10*3/uL (2.0-8.3); Neutrophils Percent Auto 63.1 % (45-73); Platelet Count 192 X10*3/uL (160-400); Red Cell Distribution Width 14.9 % (11.0-16.0); White Blood Count 6.1 X10*3/uL (4.8-10.8)
[2024-08-05 21:31] LABS: Alanine Aminotransferase 38 U/L (0-31); Albumin Level 3.1 g/dL (3.5-5.0); Alkaline Phosphatase 122 U/L (39-117); Anion Gap 11 (12-20); Aspartate Amino Transferase 27 U/L (5-31); Bilirubin Direct < 0.2 mg/dL (0.0-0.5); Bilirubin Total 0.2 mg/dL (0.0-1.0); Blood Urea Nitrogen 43 mg/dL (9-16); Calcium 8.4 mg/dL (8.4-10.2); Carbon Dioxide 23 mmol/L (22-29); Chloride 109 mmol/L (96-108); Creatinine Clr Calc Pharmacy 18.9; Estimated Glomerular Filt Rate 14; Glucose Random 87 mg/dL (60-115); Lipase 18 U/L (8-78); Magnesium 2.5 mg/dL (1.6-2.6); Potassium 2.6 mmol/L (3.3-5.1); Sodium 140 mmol/L (135-145); Total Protein 6.3 g/dL (6.5-8.0)
[2024-08-05 21:35] LABS: Troponin-I High Sensitivity 17.5 ng/L (<3.5-17.0)
[2024-08-05 21:48] LABS: Influenza A PCR NEGATIVE (Negative); Influenza B PCR NEGATIVE (Negative); Resp Syncy Virus RNA Qual PCR NEGATIVE (Negative); SARS COV2 PCR INHOUSE NEGATIVE (Negative)
[2024-08-05 21:52] VITALS: BP 145/48; PULSE 67; RESP 14; O2SAT 93
--- OUTSIDE RECORDS SUMMARY | 2024-08-05 22:02 | XMS_ITS | Encounter Summary ---
Author Organization [facility] Address [address] [place] [address] [address] [place] [address] Care Team Providers Care Animal Sitter Name Role Phone Neelima Brown MD Primary Care Provide r Reason for Visit * Reason Onset Date Comments Nurse Triage 08/05/2024 Encounter Details Date Type Department Care Team ([facility] st Contact Info) Description 08/05/2024 Telephone [facility] [address] [place], [place] [phone] Neelima Brown MD [address] [place], [place] [phone] Nurse Triage Social History Tobacco Use Types [...] encounter Miscellaneous Notes * Telephone Encounter - Cindy Nicole RN - 08/05/2024 2:15 PM EDT called pt to triage, spoke to pt. pt seen by [facility] post hospitalization and called us due to swellingof feet. pt states since home from the hospital, having swelling of both feet and lower extremities. pt was recently hospitalized for respiratory failure and CHF. pt denies worsening breathing difficulty, chest pain, sob, fevers, redness of extremities, or severe swelling. pt was seen for HDF appt on 07/24 and has no worsening symptoms at this time. advised home care: rest, elevate feet/legs, fluids as tolerated, and call back if worsening symptoms or seek ER evaluation if needed. pt understandsand agrees with plan. insurance verified. Protocol Used: Ankle Swelling (Adult) Protocol-Based Disposition: Home Care Positive Triage Question: * Localized swelling (e.g., small area of puffy or swollen skin) that is itchy * All higher-acuity triage questions were negative Care Advice Discussed: * Reasons To Call Back - Fever occurs - You become worse * Telephone Encounter - Jeaneth Huggins - 08/05/2024 1:25 PM EDT Symptoms: Weakness, Leg Pain - Not From Injury, Leg Swelling - Not From Injury Outcome: Talk to a nurse or provider within 15 minutes Reason: Trouble walking The caller accepted this outcome. documented in this encounter Plan of Treatment Upcoming Encounters Date Type Department Care Team (Late st Contact Info) Description 09/25/2024 2:30 PM EDT Office Visit [facility] [address] [place] [phone] Neelima Brown MD [address] [place], [place] [phone] documented as of this encounter Goals Goal [...] as of this encounter Care Teams Animal Sitter Relationship Specialty Start Date End Date Neelima Brown MD [address] [place] [address] [phone] PCP - General Family Medicine 01/15/18 Nolvia Delgado Director SocialIncising Machine Operator 08/29/23 Dixon ARCHIBALD 03/05/24 documented as of this encounter
--- OUTSIDE RECORDS SUMMARY | 2024-08-05 22:02 | XMS_ITS | Clinical Summary ---
Demographics Address [address] [place] [address] Home Phone Preferred Language es Marital Status Jainism Affiliation Unknown Race Unknown Ethnic Group Unknown Author Organization [facility] Address [address] [place] [address] Phone Care Team Providers Care Real Estate Intern Name Role Phone Neelima Brown MD Primary [...] Diabetes: Visual Foot Exam 01/17/2023 Influenza Vaccine (Season Ended) 2025 [place] Care Teams Real Estate Intern Relationship Specialty Start Date End Date Neelima Brown MD [address] [place] [phone] PCP - General Internal Medicine 12/20/22
--- OUTSIDE RECORDS SUMMARY | 2024-08-05 22:02 | XMS_ITS | Encounter Summary ---
Author Organization [employer] Address [address] [place] [address] [address] [place] [address] Care Team Providers Care Fashion Coordinator Name Role Phone Neelima Brown MD Primary Care Provide r Encounter Details Date Type Department Care Team ([facility] st Contact Info) Description 07/28/2024 Orders Only [facility] [address] [place], [place] [phone] Neelima Brown MD [address] [place], [place] [phone] Social History Tobacco Use Types Packs/Day Years [...] Description 09/25/2024 2:30 PM EDT Office Visit [facility] [address] [place] [address] [phone] Neelima Brown MD [address] [place], [place] [phone] documented as of this encounter Goals Goal Patient Goal Type Associated Problems Recent Progress Patient-Stated? Author Eat breakfast every day Diet No Tami Liz, Eric Note: Carbs, protein, fruits and veggies Take your medication every day Lifestyle On track( 023 4:40 PM EST) No Tami Liz PharmD documented as of this encounter Procedures Procedure Name Priority Date/Time Associated Diagnosis Comments CULTURE, URINE, ROUTINE Routine 07/28/2024 12:00 AM EDT documented in this encounter Results * Culture, Urine, Routine (07/28/2024 12:00 AM EDT) Urine Urine specimen obtained by clean catch procedure / Unknown 07/28/2024 07/28/2024 Comment:[facility] - 07/30/2024 8:07 AM EDT Klebsiella pneumoniae Quant > 100,000 cfu/mL Klebsiella pneumoniae: Ampicillin 16(R) Klebsiella pneumoniae: Cefazolin 2(S) Klebsiella pneumoniae: Cefepime <=0.12(S) Klebsiella pneumoniae: Ceftriaxone <=0.25(S) Klebsiella pneumoniae: Ciprofloxacin <=0.06(S) Klebsiella pneumoniae: Gentamicin <=1(S) Klebsiella pneumoniae: Nitrofurantoin 32(S) Klebsiella pneumoniae: Trimethoprim/Sulfamethoxazole <=20(S) Specimen Source: Urine clean catch Neelima Gómez MD LAB MICROBIOLOGY - [facility] ORDERABLES Final Result [facility] [address] [place] [phone] documented in this encounter Visit Diagnoses Not on filedocumented in this encounter Additional Health Concerns Assessment Noted Time PHQ-9 Depression Total Score: 0 07/25/19 25 2:18 PM EDT documented as of this encounter Care Teams Fashion Coordinator Relationship Specialty Start Date End Date Neelima Brown MD [address] [place] [phone] PCP - General Family Medicine 01/15/18 Nolvia Delgado Senior Medical TranscriptionistPlate Roller 08/29/23 Dixon ARCHIBALD 03/05/24 documented as of this encounter
--- OUTSIDE RECORDS SUMMARY | 2024-08-05 22:02 | XMS_ITS | Encounter Summary ---
Author Organization [facility] Address [address] [place] [address] Care Team Providers Care Medical Record Assistant Name Role Phone Mckenzie Hernandez MD Primary Care Provider [phone] Encounter Details Date Type Department Care Team (Late st Contact Info) Description 05/11/[address] [facility] - Main Lab [address] [address] [employer] [address] [employer] [place] [address] Mckenzie Hernandez MD [address] [place] [phone] Hyperkalemia Social History Tobacco Use Types Packs/Day [...] LAB CHEMISTRY METHOD 05/11/2024 2:58 PM EST [facility] Potassium 5.5 3.5 - 5.5 mmol/L LAB CHEMISTRY METHOD 05/11/2024 2:58 PM EST [facility] Chloride 107 96 - 110 mmol/L LAB CHEMISTRY METHOD 05/11/2024 2:58 PM EST [facility] CO2 25 21 - 32 mmol/L LAB CHEMISTRY METHOD 05/11/2024 2:58 PM [facility] Anion Gap 4 3 - 11 LAB CHEMISTRY METHOD 05/11/2024 2:58 PM [facility] Glucose 215(H) 70 - 100 mg/dL LAB CHEMISTRY METHOD 05/11/2024 2:58 PM [facility] BUN 40(H) 5 - 25 mg/dL LAB CHEMISTRY METHOD 05/11/2024 2:58 PM [facility] Creatinine 2.52(H) 0.50 - 1.10 mg/dL LAB CHEMISTRY METHOD 05/11/2024 2:58 PM [facility] eGFR 22(L) >=60 mL/min/1. 73m2 LAB CHEMISTRY METHOD 05/11/2024 2:58 PM [facility] Comment:Calculation based on the??Chronic Kidney Disease Epidemiology Collaboration (CKD-EPI) equation refit??without adjustment for race. BUN/Creatinine Ratio 15.9 LAB CHEMISTRY METHOD 05/11/2024 2:58 PM [facility] Calcium 8.3(L) 8.5 - 10.5 mg/dL LAB CHEMISTRY METHOD 05/11/2024 2:58 PM [facility] Blood Venous blood specimen / Unknown Venipuncture / Unknown 05/11/2024 12:35 PM EST 05/11/2024 1:57 PM EST us Mckenzie Hernandez MD LAB BLOOD ORDERABLES Final Resu lt [facility] [address] [place] [address], documented in this encounter Visit Diagnoses Diagnosis Hyperkalemia Hyperpotassemia documented in this encounter Care Teams Medical Record Assistant Relationship Specialty Start Date End Date Mckenzie Hernandez MD [address] [place] [phone] PCP - General Hospitalist Medicine 04/27/24 documented as of this encounter
--- OUTSIDE RECORDS SUMMARY | 2024-08-05 22:02 | XMS_ITS | Encounter Summary ---
Author Organization [employer] Address [address] [place] [address] 7t [place] [address] Care Team Providers Care Bag Repairer Name Role Phone Neelima Brown MD Primary Care Provide r Reason for Visit * Reason Comments Med Refill Encounter Details Date Type Department Care Team ([facility] st Contact Info) Description 08/03/2024 Refill [facility] MEDICINE 230 [place], [place] [phone] Neelima Brown MD 230 [place], [place] [phone] Nausea Social History Tobacco Use Types Packs/Day Years [...] your housing situation today? I have yandel curz 06/26/[address] you li [...] Description 09/25/2024 2:30 PM EDT Office Visit [facility] MEDICINE [address] [place] [address] Neelima Brown MD 230 [place] [address] documented as of this encounter Goals Goal Patient Goal Type Associated Problems Recent Progress Patient-Stated? Author Eat breakfast every day Diet No Tami Liz PharmD Note: Carbs, protein, fruits and veggies Take your medication every day Lifestyle On track( 023 4:40 PM EST) No Tami Liz PharmD documented as of this encounter Visit Diagnoses Diagnosis Nausea Nausea alone documented in this encounter Additional Health Concerns Assessment Noted Time PHQ-9 Depression Total Score: 0 07/25/19 25 2:18 PM EDT documented as of this encounter Care Teams Bag Repairer Relationship Specialty Start Date End Date Neelima Brown MD 230 [place], [place] [phone] PCP - General Family Medicine 01/15/18 Nolvia Delgado Cream MakerPhp Mysql Developer 08/29/23 Dixon ARCHIBALD 10/31/24 documented as of this encounter
--- OUTSIDE RECORDS SUMMARY | 2024-08-05 22:02 | XMS_ITS | Encounter Summary ---
Author Organization [facility] Address [address] [place] [address] 7t [place] [address] Care Team Providers Care Director Clinical Data Name Role Phone Neelima Brown MD Primary Care Provide r Reason for Visit * Reason Onset Date Comments Medication Question 01/10/2023 Encounter Details Date Type Department Care Team ([facility] st Contact Info) Description 01/10/2023 Telephone [facility] MEDICINE 230 [place], [place] [phone] Neelima Brown MD 230 [place], [place] [phone] Medication Question Social History Tobacco Use Types [...] 11:26 AM EDT T/C to Elis on [phone] for below message, VNA is with pt. Right now. VNA states she is going to call back. * Telephone Encounter - Kailee Avalos - 01/10/2023 2:46 PM EDT Tc from Elis [place] [facility] [place] [facility] requesting a call back to discuss pt med list . Best contact # [phone] documented in this encounter Plan of Treatment Upcoming Encounters Date Type Department Care Team (Late st Contact Info) Description 09/25/2024 2:30 PM EDT Office Visit [facility] MEDICINE 230 [place], [place] [phone] Neelima Brown MD 230 [place], [place] [phone] documented as of this encounter Visit Diagnoses Not on filedocumented in this encounter Care Teams Director Clinical Data Relationship Specialty Start Date End Date Neelima Brown MD [address] [place] [address] [phone] PCP - General Family Medicine 01/15/18 Yara Salas Production Cost Estimator 07/01/23 09/27/23 Nolvia Delgado Production Cost EstimatorBicycle I Assembler 08/29/23 Dixon ARCHIBALD 03/05/24 documented as of this encounter
--- OUTSIDE RECORDS SUMMARY | 2024-08-05 22:02 | XMS_ITS | Encounter Summary ---
Author Organization [employer] Address [address] [place] [address] 7t [place] [address] Care Team Providers Care Manager Medical Writing Name Role Phone Neelima Brown MD Primary Care Provide r Encounter Details Date Type Department Care Team ([facility] st Contact Info) Description 03/15/2023 Telephone [facility] MEDICINE 230 [place], [place] [phone] Neelima Brown MD 230 [place], [place] [phone] Social History Tobacco Use Types Packs/Day Years [...] requesting a call in regards to a [employer] gift card pt received. Please contact son at [phone] documented in this encounter Plan of Treatment Upcoming Encounters Date Type Department Care Team (Late st Contact Info) Description 09/25/2024 2:30 PM EDT Office Visit [facility] MEDICINE [address] [place] [address] Neelima Brown MD 230 [place] [address] documented as of this encounter Visit Diagnoses Not on filedocumented in this encounter Additional Health Concerns Assessment Noted Time PHQ-9 Depression Total Score: 0 02/29/20 23 1:01 PM EDT documented as of this encounter Care Teams Manager Medical Writing Relationship Specialty Start Date End Date Neelima Brown MD [address] [place] [address] PCP - General Family Medicine 01/15/18 Yara Salas Employment Law Attorney 07/01/23 09/27/23 Nolvia Delgado Employment Law AttorneySkin Lap Bonder 08/29/23 Dixon [facility] 03/05/24 documented as of this encounter
--- OUTSIDE RECORDS SUMMARY | 2024-08-05 22:02 | XMS_ITS | Encounter Summary ---
Author Organization [facility] Address [address] [place] [address] 7t [place] [address] Care Team Providers Care Crack Off Person Name Role Phone Neelima Brown MD Primary Care Provide r Encounter Details Date Type Department Care Team ([facility] [address] Contact Info) Description 08/01/2022 Abstract [facility] MEDICINE [address] [place] [address] [phone] Neelima Brown MD 230 [place], [place] [phone] Social History Tobacco Use Types Packs/Day Years [...] Upcoming Encounters Date Type Department Care Team ([facility] [address] Contact Info) Description 09/25/2024 2:30 PM EDT Office Visit [facility] MEDICINE [address] [place] [address] [phone] Neelima Brown MD 230 [place], [place] [phone] documented as of this encounter Visit Diagnoses Not on filedocumented in this encounter Care Teams Crack Off Person Relationship Specialty Start Date End Date Neelima Brown MD 230 [place] [address] PCP - General Family Medicine 01/15/18 Yara Salas Fishing Rod Mechanic 07/01/23 09/27/23 Nolvia Delgado Fishing Rod MechanicEnforcement Manager 08/29/23 Dixon ARCHIBALD 03/05/24 documented as of this encounter
--- OUTSIDE RECORDS SUMMARY | 2024-08-05 22:02 | XMS_ITS | Encounter Summary ---
Author Organization [employer] Address [address] [place] [address] 7t [place] [address] Care Team Providers Care Home Energy Consultant Supervisor Name Role Phone Neelima Brown MD Primary Care Provide r Reason for Visit * Reason Onset Date Comments PT1 06/18/2024 Encounter Details Date Type Department Care Team ([facility] st Contact Info) Description 06/18/2024 Telephone [facility] MEDICINE 230 [place], [place] [phone] Neelima Brown MD 230 [place], [place] [phone] PT1 Social History Tobacco Use Types Packs/Day [...] Y/N: Yes Provider name or facility name: [facility] Facility Address: [address] [place] [address] Escort needed: Y/N: Yes Do you have a wheelchair: If yes- Manual or electric: Visits: 2 x a month documented in this encounter Plan of Treatment Upcoming Encounters Date Type Department Care Team ([facility] st Contact Info) Description 09/25/2024 2:30 PM EDT Office Visit [facility] MEDICINE [address] [place] [address] Neelima Brown MD [address] [place] [address] documented as of this encounter Goals Goal [...] documented as of this encounter Care Teams Home Energy Consultant Supervisor Relationship Specialty Start Date End Date Neelima Brown MD [address] [place] [address] PCP - General Family Medicine 01/15/18 Nolvia Delgado Agribusiness ProfessorReceiver Bulk System 08/29/23 Dixon ARCHIBALD 03/05/24 documented as of this encounter
--- OUTSIDE RECORDS SUMMARY | 2024-08-05 22:02 | XMS_ITS | Encounter Summary ---
Author Organization [employer] [facility] Address [address] [place] [address] 7t [place] [address] Care Team Providers Care Success Coach Name Role Phone Neelima Brown MD Primary Care Provide r Encounter Details Date Type Department Care Team ([facility] Contact Info) Description 07/18/2022 Telephone [facility] MEDICINE [address] [place] [address] [phone] Neelima Brown MD 230 [place], [place] [phone] Social History Tobacco Use Types Packs/Day Years [...] Upcoming Encounters Date Type Department Care Team ([facility] Contact Info) Description 09/25/2024 2:30 PM EDT Office Visit [facility] MEDICINE [address] [place] [address] [phone] Neelima Brown MD 230 [place], [place] [phone] documented as of this encounter Visit Diagnoses Not on filedocumented in this encounter Care Teams Success Coach Relationship Specialty Start Date End Date Neelima Brown MD [address] [place] [address] PCP - General Family Medicine 01/15/18 Yara Salas Corporate Legal Intern 07/01/23 09/27/23 Nolvia Delgado Corporate Legal InternGolf Player Assistant 08/29/23 Dixon ARCHIBALD 03/05/24 documented as of this encounter
--- OUTSIDE RECORDS SUMMARY | 2024-08-05 22:02 | XMS_ITS | Encounter Summary ---
Author Organization [facility] Address [address] [place] [address] Care Team Providers Care Golf Club Head Former Name Role Phone Mckenzie Hernandez MD Primary Care Provider [phone] Encounter Details Date Type Department Care Team (Late st Contact Info) Description 05/12/2024 Lab Requisition [facility] - Main Lab 299 [facility] [place] [address] Mckenzie Hernandez MD [address] [place] [address] Hyperkalemia Social History Tobacco Use Types Packs/Day [...] Hyperpotassemia documented in this encounter Care Teams Golf Club Head Former Relationship Specialty Start Date End Date Mckenzie Hernandez MD [address] [place] [address] PCP - General Hospitalist Medicine 04/27/24 documented as of this encounter
--- OUTSIDE RECORDS SUMMARY | 2024-08-05 22:02 | XMS_ITS | Encounter Summary ---
Author Organization [employer] [facility] Address [address] [place] [address] 7t [place] [address] Care Team Providers Care Compliance Mgr Name Role Phone Neelima Brown MD Primary Care Provide r Reason for Visit * Reason Onset Date Comments Nurse Triage 03/08/2023 Encounter Details Date Type Department Care Team ([facility] st Contact Info) Description 03/08/[address] [facility] MEDICINE 230 [place], [place] [phone] Neelima Brown MD 230 [place], [place] [phone] Nurse Triage Social History Tobacco Use Types [...] 03/08/2023 2:49 PM EDT Called pt. Via [employer] higher education administrator [employer] [phone]. Pt. States that she started vomiting x [...] acuity questions The caller accepted this outcome Divehi Speaker documented in this encounter Plan of Treatment Upcoming Encounters Date Type Department Care Team (Late st Contact Info) Description 09/25/2024 2:30 PM EDT Office Visit [facility] MEDICINE 230 [place] [address] Neelima Brown MD 230 [place] [address] documented as of this encounter Visit Diagnoses Not on filedocumented in this encounter Additional Health Concerns Assessment Noted Time PHQ-9 Depression Total Score: 0 02/29/20 1:01 PM EDT documented as of this encounter Care Teams Compliance Mgr Relationship Specialty Start Date End Date Neelima Brown MD 230 [place] [address] PCP - General Family Medicine 01/15/18 Yara Salas Licensed Dispensing Optician 07/01/23 09/27/23 Nolvia Delgado Licensed Dispensing OpticianFruit Grower 08/29/23 Dixon ARCHIBALD 03/05/24 documented as of this encounter
--- OUTSIDE RECORDS SUMMARY | 2024-08-05 22:02 | XMS_ITS | Encounter Summary ---
Demographics Address [address] [facility] [address] [place] [address] Mobile Phone Email Address Preferred Language es Marital Status Single Alevism Affiliation Unknown Race Other Race Ethnic Group or Author Organization [employer] Address [address] [place] [address] 7t [place] [address] Care Team Providers Care Shipfitter Helper Name Role Phone Neelima Brown MD Primary Care Provide r Reason for Visit * Reason Onset Date Comments Durable Medical Equipment 07/28/2024 Digita l scale Encounter Details Date Type Department Care Team ([facility] st Contact Info) Description 07/28/2024 Telephone [facility] MEDICINE 230 [place], [place] [phone] Neelima Brown MD 230 [place] [address] Durable Medical Equipment (Digital scale) Social History [...] * Telephone Encounter - Nolvia Palmer - 08/03/2024 10:24 AM EDT RX signed and faxed to Keisha . Confirmation received and sent to scan. If patient calls to check status on above, please advise them to contact Keisha at [phone]. * Telephone Encounter - Nolvia Palmer - [...] Description 09/25/2024 2:30 PM EDT Office Visit [facility] MEDICINE 230 [place] [address] Neelima Brown MD [address] [place] [address] documented as of this encounter Goals Goal [...] documented as of this encounter Care Teams Shipfitter Helper Relationship Specialty Start Date End Date Neelima Brown MD [address] [place] [address] [phone] PCP - General Family Medicine 01/15/18 Nolvia Delgado Wet End TesterGeothermal Electrical Engineer 08/29/23 Dixon ARCHIBALD 03/05/24 documented as of this encounter
--- OUTSIDE RECORDS SUMMARY | 2024-08-05 22:02 | XMS_ITS | Encounter Summary ---
Author Organization [facility] Address [address] [place] [address] Care Team Providers Care Clerical Assigner Name Role Phone Mckenzie Hernandez MD Primary Care Provider [phone] Encounter Details Date Type Department Care Team (Late st Contact Info) Description 05/05/2024 Lab Requisition [facility] - Main Lab 299 [facility] [place] [address] Mckenzie Hernandez MD [address] [place] [address] Chronic kidney disease, unspecified Social History Tobacco [...] LAB CHEMISTRY METHOD 05/05/2024 10:25 AM EST [facility] Potassium 5.6(H) 3.5 - 5.5 mmol/L LAB CHEMISTRY METHOD 05/05/2024 10:25 AM [facility] Chloride 109 96 - 110 mmol/L LAB CHEMISTRY METHOD 05/05/2024 10:25 AM [facility] CO2 26 21 - 32 mmol/L LAB CHEMISTRY METHOD 05/05/2024 10:25 AM [facility] Anion Gap 2(L) 3 - 11 LAB CHEMISTRY METHOD 05/05/2024 10:25 AM [facility] Glucose 85 70 - 100 mg/dL LAB CHEMISTRY METHOD 05/05/2024 10:25 AM [facility] BUN 43(H) 5 - 25 mg/dL LAB CHEMISTRY METHOD 05/05/2024 10:25 AM [facility] Creatinine 1.93(H) 0.50 - 1.10 mg/dL LAB CHEMISTRY METHOD 05/05/2024 10:25 AM [facility] eGFR 30(L) >=60 mL/min/1. 73m2 LAB CHEMISTRY METHOD 05/05/2024 10:25 AM [facility] Comment:Calculation based on the??Chronic Kidney Disease Epidemiology Collaboration (CKD-EPI) equation refit??without adjustment for race. BUN/Creatinine Ratio 22.3 LAB CHEMISTRY METHOD 05/05/2024 10:25 AM [facility] Calcium 8.3(L) 8.5 - 10.5 mg/dL LAB CHEMISTRY METHOD 05/05/2024 10:25 AM [facility] Blood Venous blood specimen / Unknown Venipuncture / Unknown 05/05/2024 6:10 AM EST 05/05/2024 9:07 AM EST us Mckenzie Hernandez MD LAB BLOOD ORDERABLES Final Resu lt [facility] 299 [place] [address], [place] [phone] * (ABNORMAL) Complete blood count (05/05/2024 6:10 AM EST) [facility] WBC 6.2 4.8 - 10.8 K/mcL LAB HEMETOLOGY METHOD 05/05/2024 10:11 AM [facility] RBC 2.80(L) 3.80 - 4.80 M/mcL LAB HEMETOLOGY METHOD 05/05/2024 10:11 AM [facility] Hemoglobin 8.0(L) 11.5 - 16.0 g/dL LAB HEMETOLOGY METHOD 05/05/2024 10:11 AM [facility] Hematocrit 25.6(L) 35.0 - 47.0 % LAB HEMETOLOGY METHOD 05/05/2024 10:11 AM [facility] MCV 90.1 79.0 - 98.0 FL LAB HEMETOLOGY METHOD 05/05/2024 10:11 AM [facility] MCH 28.2 27.0 - 32.0 pcg LAB HEMETOLOGY METHOD 05/05/2024 10:11 AM [facility] MCHC 31.3(L) 32.0 - 37.0 g/dL LAB HEMETOLOGY METHOD 05/05/2024 10:11 AM [facility] RDW 14.8 11.0 - 15.0 % LAB HEMETOLOGY METHOD 05/05/2024 10:11 AM [facility] Platelets 170 130 - 400 K/mcL LAB HEMETOLOGY METHOD 05/05/2024 10:11 AM [facility] MPV 8.9 7.0 - 11.0 FL LAB HEMETOLOGY METHOD 05/05/2024 10:11 AM [facility] NRBC 0.0 <1.0 % LAB HEMETOLOGY METHOD 05/05/2024 10:11 AM [facility] NRBC Absolute 0.00 <0.10 K/mcL LAB HEMETOLOGY METHOD 05/05/2024 10:11 AM EST [facility] Blood Venous blood specimen / Unknown Venipuncture / Unknown 05/05/2024 6:10 AM EST 05/05/2024 9:07 AM EST us Mckenzie Hernandez MD LAB BLOOD ORDERABLES Final Resu lt [facility] [address] [place] [address], documented in this encounter Visit Diagnoses Diagnosis Chronic kidney disease, unspecified documented in this encounter Care Teams Clerical Assigner Relationship Specialty Start Date End Date Mckenzie Hernandez MD [address] [place] [address] PCP - General Hospitalist Medicine 04/27/24 documented as of this encounter
--- OUTSIDE RECORDS SUMMARY | 2024-08-05 22:02 | XMS_ITS | Encounter Summary ---
Author Organization [employer] [facility] Address [address] [place] [address] 7t [place] [address] Care Team Providers Care Foley Artist Name Role Phone Neelima Brown MD Primary Care Provide r Reason for Visit * Reason Onset Date Comments Nurse Triage 07/21/2024 Encounter Details Date Type Department Care Team ([facility] st Contact Info) Description 07/21/2024 Telephone [facility] MEDICINE 230 [place], [place] [phone] Neelima Brown MD 230 [place], [place] [phone] Nurse Triage Social History Tobacco Use Types [...] RN - 07/21/2024 10:25 AM EDT No shell freezing machine operator needed as this freelance copywriter speaks Portuguese. Call returned to [facility] to triage below. Spoke with son who [...] on 07/17/24). Advised to bring pt to [facility] today for repeat BP and BS check to ensrue on med adjustments needed. Reviewed [facility] operating hours and that wait times vary. [...] caller accepted this outcome. Contact pt at [phone] documented in this encounter Plan of Treatment Upcoming Encounters Date Type Department Care Team (Late st Contact Info) Description 09/25/2024 2:30 PM EDT Office Visit [facility] MEDICINE [address] [place] [address] Neelima Brown MD [address] [place] [address] documented as of this encounter Goals Goal [...] documented as of this encounter Care Teams Foley Artist Relationship Specialty Start Date End Date Neelima Brown MD [address] [place] [address] PCP - General Family Medicine 01/15/18 Nolvia Delgado Tare WorkerChain Sales Representative 08/29/23 Dixon ARCHIBALD 03/05/24 documented as of this encounter
--- OUTSIDE RECORDS SUMMARY | 2024-08-05 22:02 | XMS_ITS | Encounter Summary ---
Author Organization [facility] Address [address] [place] [address] Care Team Providers Care Architect Name Role Phone Mckenzie Hernandez MD Primary Care Provider [phone] Encounter Details Date Type Department Care Team (Late st Contact Info) Description 05/11/2024 Lab Requisition [facility] - Main Lab 299 [facility] [employer] [place] [address] Mckenzie Hernandez MD [address] [place] [address] Chronic kidney disease, unspecified Social History Tobacco [...] LAB CHEMISTRY METHOD 05/12/2024 11:14 AM EST [facility] Potassium 5.3 3.5 - 5.5 mmol/L LAB CHEMISTRY METHOD 05/12/2024 11:14 AM EST [facility] Chloride 109 96 - 110 [...] Resu lt [facility] 299 [place] [address], * (ABNORMAL) Complete blood count (05/12/2024 6:38 AM EST) WBC 6.2 4.8 - 10.8 K/mcL LAB HEMETOLOGY METHOD 05/12/2024 10:25 AM [facility] RBC 2.90(L) 3.80 - 4.80 M/[facility] LAB HEMETOLOGY METHOD 05/12/2024 10:25 AM [facility] Platelets 166 130 - 400 K/[facility] LAB HEMETOLOGY METHOD 05/12/2024 10:25 AM [facility] MPV 8.5 7.0 - 11.0 FL LAB HEMETOLOGY METHOD 05/12/2024 10:25 AM [facility] NRBC 0.0 <1.0 % LAB HEMETOLOGY METHOD 05/12/2024 10:25 AM [facility] NRBC Absolute 0.00 <0.10 K/[facility] LAB HEMETOLOGY METHOD 05/12/2024 10:25 AM EST [facility] Blood Venous blood specimen / Unknown Venipuncture / Unknown 05/12/2024 6:38 AM EST 05/12/2024 9:56 AM EST us Mckenzie Hernandez MD LAB BLOOD ORDERABLES Final Resu lt Performing Organization Address City/State/[facility] Co de Phone Number [facility] [address] [place] [address], documented in this encounter Visit Diagnoses Diagnosis Chronic kidney disease, unspecified documented in this encounter Care Teams Architect Relationship Specialty Start Date End Date Mckenzie Hernandez MD [address] [place] [address] PCP - General Hospitalist Medicine 04/27/24 documented as of this encounter
--- OUTSIDE RECORDS SUMMARY | 2024-08-05 22:02 | XMS_ITS | Encounter Summary ---
Author Organization [employer] [facility] Address [address] [place] [address] 7t [place] [address] Care Team Providers Care Painting Instructor Name Role Phone Neelima Brown MD Primary Care Provide r Reason for Visit * Reason Onset Date Comments call back 06/18/2022 Encounter Details Date Type Department Care Team ([facility] st Contact Info) Description 06/18/2022 Telephone [facility] MEDICINE 230 [place], [place] [phone] Neelima Brown MD 230 [place], [place] [phone] call back Social History Tobacco Use Types [...] answering phone call. Please contact sumeet at [phone] documented in this encounter Plan of Treatment Upcoming Encounters Date Type Department Care Team (Late st Contact Info) Description 09/25/2024 2:30 PM EDT Office Visit [facility] MEDICINE [address] [place] [address] Neelima Brown MD [address] [place], [place] [phone] documented as of this encounter Visit Diagnoses Not on filedocumented in this encounter Care Teams Painting Instructor Relationship Specialty Start Date End Date Neelima Brown MD [address] [place] [address] PCP - General Family Medicine 01/15/18 Yara Salas Director Of Scout Work 07/01/23 09/27/23 Nolvia Delgado Director Of Scout WorkFull Stack Engineer 08/29/23 Dixon ARCHIBALD 03/05/24 documented as of this encounter
--- OUTSIDE RECORDS SUMMARY | 2024-08-05 22:02 | XMS_ITS | Encounter Summary ---
Author Organization [facility] [facility] Address [address] [place] [address] 7t [place] [address] Care Team Providers Care Viscose Cellar Worker Name Role Phone Neelima Brown MD Primary Care Provide r Reason for Visit * Reason Onset Date Comments Nurse Triage 04/07/2024 Encounter Details Date Type Department Care Team ([facility] st Contact Info) Description 04/07/2024 Telephone [facility] MEDICINE [address] [place], [place] [phone] Neelima Brown MD 230 [place], [place] [phone] Nurse Triage Social History Tobacco Use Types [...] Triage call with [facility] [place] [id number], Pt son, Bin, is with Pt and [...] Description 09/25/2024 2:30 PM EDT Office Visit [facility] MED[facility] [address] [place], [place] [phone] Neelima Brown MD [address] [place], [place] [phone] documented as of this encounter Goals Goal [...] documented as of this encounter Care Teams Viscose Cellar Worker Relationship Specialty Start Date End Date Neelima Brown MD [address] [place] [phone] PCP - General Family Medicine 01/15/18 Nolvia Delgado Paper ColorerCommunications Agent 08/29/23 Dixon ARCHIBALD 03/05/24 documented as of this encounter
--- OUTSIDE RECORDS SUMMARY | 2024-08-05 22:02 | XMS_ITS | Encounter Summary ---
Author Organization [employer] Address [address] [place] [address] 7t [place] [address] Care Team Providers Care Category Planner Name Role Phone Neelima Brown MD Primary Care Provide r Reason for Visit * Reason Onset Date Comments Verbal Orders 07/15/2024 Encounter Details Date Type Department Care Team ([facility] st Contact Info) Description 07/15/2024 Telephone [facility] MEDICINE 230 [place], [place] [phone] Neelima Brown MD 230 [place], [place] [phone] Verbal Orders Social History Tobacco Use Types [...] 12:44 PM EDT Tc from Velma with [facility] requesting verbal orders to start at Home Nursing and Pt Back up due to her being discharged today 07/15/24. Contact Velma at [phone] documented in this encounter Plan of Treatment Upcoming Encounters Date Type Department Care Team (Late st Contact Info) Description 09/25/2024 2:30 PM EDT Office Visit [facility] MEDICINE [address] [place] [address] Neelima Brown MD 230 [place] [address] documented as of this encounter Goals Goal [...] documented as of this encounter Care Teams Category Planner Relationship Specialty Start Date End Date Neelima Brown MD [address] [place] [address] PCP - General Family Medicine 01/15/18 Nolvia Delgado Middle School CoachUndergraduate Intern 08/29/23 Dixon ARCHIBALD 03/05/24 documented as of this encounter
--- OUTSIDE RECORDS SUMMARY | 2024-08-05 22:02 | XMS_ITS | Encounter Summary ---
Author Organization [facility] Address [address] [place] [address] Care Team Providers Care Discovery Manager Name Role Phone Mckenzie Hernandez MD Primary Care Provider [phone] Encounter Details Date Type Department Care Team (Late st Contact Info) Description 05/20/2024 Lab Requisition [facility] - Main Lab [address] [facility] [place] [address] Mckenzie Hernandez MD [address] [place] [address] Hyperkalemia Social History Tobacco Use Types Packs/Day [...] Hyperpotassemia documented in this encounter Care Teams Discovery Manager Relationship Specialty Start Date End Date Mckenzie Heranndez MD [address] [place] [address] PCP - General Hospitalist Medicine 04/27/24 documented as of this encounter
--- OUTSIDE RECORDS SUMMARY | 2024-08-05 22:02 | XMS_ITS | Encounter Summary ---
Author Organization [email or web address] Address [address] [facility] 7t [place] [address] Care Team Providers Care Public Works Commissioner Name Role Phone Neelima Brown MD Primary Care Provide r Encounter Details Date Type Department Care Team (Late st Contact Info) Description 08/05/2024 Telephone [facility] [address] [place] [address] Octaviano, Nicole, OD [address] [place] [address] Social History Tobacco Use Types Packs/Day Years [...] Office Visit [facility] MEDICINE [address] [place] [address] Neelima Brown MD [address] [place] [address] documented as of this encounter Goals Goal [...] documented as of this encounter Care Teams Public Works Commissioner Relationship Specialty Start Date End Date Neelima Brown MD [address] [place] [address] PCP - General Family Medicine 01/15/18 Nolvia Delgado Transformer Assembly SupervisorRailway Signal Technician 08/29/23 Dixon ARCHIBALD 03/05/24 documented as of this encounter
--- OUTSIDE RECORDS SUMMARY | 2024-08-05 22:02 | XMS_ITS | Encounter Summary ---
Author Organization [facility] Address [address] [place] [address] Care Team Providers Care Hat Blocking Machine Operator Name Role Phone Mckenzie Hernandez MD Primary Care Provider [phone] Encounter Details Date Type Department Care Team (Late st Contact Info) Description 05/07/2024 Lab Requisition [facility] - Main Lab 299 [facility] [place] [address] Mckenzie Hernandez MD [address] [place] [address] Chronic kidney disease, unspecified Social History Tobacco [...] LAB CHEMISTRY METHOD 05/08/2024 11:04 AM EST [facility] Potassium 6.4(HH) 3.5 - 5.5 mmol/L LAB CHEMISTRY METHOD 05/08/2024 11:04 AM [facility] Chloride 108 96 - 110 mmol/L LAB CHEMISTRY METHOD 05/08/2024 11:04 AM [facility] CO2 24 21 - 32 mmol/L LAB CHEMISTRY METHOD 05/08/2024 11:04 AM [facility] Anion Gap 6 3 - 11 LAB CHEMISTRY METHOD 05/08/2024 11:04 AM [facility] Glucose 81 70 - 100 mg/dL LAB CHEMISTRY METHOD 05/08/2024 11:04 AM [facility] BUN 39(H) 5 - 25 mg/dL LAB CHEMISTRY METHOD 05/08/2024 11:04 AM [facility] Creatinine 1.95(H) 0.50 - 1.10 mg/dL LAB CHEMISTRY METHOD 05/08/2024 11:04 AM [facility] eGFR 30(L) >=60 mL/min/1. 73m2 LAB CHEMISTRY METHOD 05/08/2024 11:04 AM [facility] Comment:Calculation based on the??Chronic Kidney Disease Epidemiology Collaboration (CKD-EPI) equation refit??without adjustment for race. BUN/Creatinine Ratio 20.0 LAB CHEMISTRY METHOD 05/08/2024 11:04 AM [facility] Calcium 8.5 8.5 - 10.5 mg/dL LAB CHEMISTRY METHOD 05/08/2024 11:04 AM [facility] Blood Venous blood specimen / Unknown Venipuncture / Unknown 05/08/2024 7:00 AM EST 05/08/2024 9:54 AM EST us Mckenzie Hernandez MD LAB BLOOD ORDERABLES Final Resu lt [facility] [address] [place] [address], [place] [phone] * (ABNORMAL) Complete blood count (05/08/2024 7:00 AM EST) [facility] [address] WBC 6.4 4.8 - 10.8 K/mcL LAB HEMETOLOGY METHOD 05/08/2024 10:14 AM [facility] RBC 3.00(L) 3.80 - 4.80 M/mcL LAB HEMETOLOGY METHOD 05/08/2024 10:14 AM [facility] Hemoglobin 8.6(L) 11.5 - 16.0 g/dL LAB HEMETOLOGY METHOD 05/08/2024 10:14 AM [facility] Hematocrit 26.9(L) 35.0 - 47.0 % LAB HEMETOLOGY METHOD 05/08/2024 10:14 AM [facility] MCV 88.8 79.0 - 98.0 FL LAB HEMETOLOGY METHOD 05/08/2024 10:14 AM [facility] MCH 28.4 27.0 - 32.0 pcg LAB HEMETOLOGY METHOD 05/08/2024 10:14 AM [facility] MCHC 32.0 32.0 - 37.0 g/dL LAB HEMETOLOGY METHOD 05/08/2024 10:14 AM [facility] RDW 15.1(H) 11.0 - 15.0 % LAB HEMETOLOGY METHOD 05/08/2024 10:14 AM [facility] Platelets 168 130 - 400 K/mcL LAB HEMETOLOGY METHOD 05/08/2024 10:14 AM [facility] MPV 8.8 7.0 - 11.0 FL LAB HEMETOLOGY METHOD 05/08/2024 10:14 AM [facility] NRBC 0.0 <1.0 % LAB HEMETOLOGY METHOD 05/08/2024 10:14 AM [facility] NRBC Absolute 0.00 <0.10 K/mcL LAB HEMETOLOGY METHOD 05/08/2024 10:14 AM [facility] Blood Venous blood specimen / Unknown Venipuncture / Unknown 05/08/2024 7:00 AM EST 05/08/2024 9:54 AM EST us Mckenzie Hernandez MD LAB BLOOD ORDERABLES Final Resu lt [facility] [address] [place] [address], documented in this encounter Visit Diagnoses Diagnosis Chronic kidney disease, unspecified documented in this encounter Care Teams Hat Blocking Machine Operator Relationship Specialty Start Date End Date Mckenzie Hernandez MD [address] [place] [address] PCP - General Hospitalist Medicine 04/27/24 documented as of this encounter
--- OUTSIDE RECORDS SUMMARY | 2024-08-05 22:02 | XMS_ITS | Encounter Summary ---
Author Organization [employer] Address [address] [place] [address] 7t [place] [address] Care Team Providers Care Floor Helper Name Role Phone Neelima Brown MD Primary Care Provide r Reason for Visit * Reason Comments Care Coordination Outreach Encounter Details Date Type Department Care Team (Latest Contact Info) Description 08/03/2024 Patient Outreach [facility] MEDICINE [address] [place], [place] [phone] Neelima Brown MD [address] [place], [place] [phone] Care Coordination (Outreach) Social History Tobacco Use [...] encounter Progress Notes * Annalisa Yang - 08/03/2024 10:55 AM EDT CHW Annalisa Yang , placed outbound call to patient in regards to offer services. CHW introducing herself from [facility] CM Department with CHW's name, department and direct contact [phone] requesting call back. Will re-attempt to contact within 5 days. and address not confirmed. documented in this encounter Plan of Treatment Upcoming Encounters Date Type Department Care Team ([facility] st Contact Info) Description 09/25/2024 2:30 PM EDT Office Visit [facility] MEDICINE [address] [place] [address] Neelima Brown MD [address] [place] [address] documented as of this encounter Goals Goal [...] as of this encounter Care Teams Floor Helper Relationship Specialty Start Date End Date Neelima Brown MD [address] [place] [address] PCP - General Family Medicine 01/15/18 Nolvia Delgado Tube Sizer OperatorBand Director 08/29/23 Dixon ARCHIBALD 03/05/24 documented as of this encounter
--- OUTSIDE RECORDS SUMMARY | 2024-08-05 22:02 | XMS_ITS | Encounter Summary ---
Author Organization [employer] Address [address] [place] [address] 7t [place] [address] Care Team Providers Care Auxiliary Engineer Name Role Phone Neelima Brown MD Primary Care Provide r Reason for Visit * Reason Onset Date Comments Medication Question 09/27/2023 Encounter Details Date Type Department Care Team ([facility] st Contact Info) Description 09/27/2023 Telephone [facility] MEDICINE 230 [place], [place] [phone] Neelima Brown MD [address] [place], [place] [phone] Medication Question Social History Tobacco Use Types [...] If any questions please contact Josephine at [phone]. documented in this encounter Plan of Treatment Upcoming Encounters Date Type Department Care Team (Late st Contact Info) Description 09/25/2024 2:30 PM EDT Office Visit [facility] MEDICINE [address] [place] [address] Neelima Brown MD [address] [place] [address] documented as of this encounter Goals Goal [...] documented as of this encounter Care Teams Auxiliary Engineer Relationship Specialty Start Date End Date Neelima Brown MD [address] [place] [address] PCP - General Family Medicine 01/15/18 Yara Salas Mental Health Coordinator 07/01/23 09/27/23 Nolvia Delgado Mental Health CoordinatorMicrosoft Office Instructor 08/29/23 Dixon ARCHIBALD 03/05/24 documented as of this encounter
--- OUTSIDE RECORDS SUMMARY | 2024-08-05 22:02 | XMS_ITS | Encounter Summary ---
Author Organization [facility] Address [address] [place] [address] Care Team Providers Care Mental Hygienist Name Role Phone Mckenzie Hernandez MD Primary Care Provider [phone] Encounter Details Date Type Department Care Team (Latest Contact Info) Description 04/27/2024 Lab Requisition [facility] - Main Lab [address] [facility] [place] [address] Mckenzie Hernandez MD [address] [place] [address] Iron deficiency anemia, unspecified; Vitamin D deficiency, [...] LAB CHEMISTRY METHOD 04/27/2024 10:17 AM EST [facility] Blood Venous blood specimen / Unknown Venipuncture / Unknown 04/27/2024 4:45 AM EST 04/27/2024 9:16 AM EST us Mckenzie Hernandez MD LAB BLOOD ORDERABLES Final Resu lt [facility] [address] [place] [address], * Thyroid stimulating hormone (04/27/2024 4:45 AM EST) TSH 3.85 0.40 - 4.00 mcIU/mL LAB CHEMISTRY METHOD 04/27/2024 10:28 AM EST [facility] Blood Venous blood specimen / Unknown Venipuncture / Unknown 04/27/2024 4:45 AM EST 04/27/2024 9:16 AM EST us Mckenzie Hernandez MD LAB BLOOD ORDERABLES Final Resu lt Performing Organization Address City/[facility]/ZIP Co de Phone Number [facility] [address] [place] [address], [place] [phone] * (ABNORMAL) Vitamin D 25 hydroxy (04/27/2024 4:45 AM EST) [facility] Vit D, 25-Hydroxy 24.3(L) 30.0 - 80.0 ng/mL LAB CHEMISTRY METHOD 04/27/2024 10:28 AM EST [facility] Blood Venous blood specimen / Unknown Venipuncture / Unknown 04/27/2024 4:45 AM EST 04/27/2024 9:16 AM EST us Mckenzie Hernandez MD LAB BLOOD ORDERABLES Final Resu lt Performing Organization Address [facility]/ZIP Co de Phone Number [facility] [address] [place] [address], [place] [phone] * Folate (04/27/2024 4:45 AM EST) [facility] Folate 14.1 2.8 - 17.0 ng/ml LAB CHEMISTRY METHOD 04/27/2024 10:35 AM EST [facility] Blood Venous blood specimen / Unknown Venipuncture / Unknown 04/27/2024 4:45 AM EST 04/27/2024 9:16 AM EST us Mckenzie Hernandez MD LAB BLOOD ORDERABLES Final Resu lt Performing Organization Address City/[facility]/ZIP Co de Phone Number [facility] [address] [place] [address], [place] [phone] * (ABNORMAL) Hemoglobin A1c (04/27/2024 4:45 AM EST) [facility] Hemoglobin A1C 6.8(H) <6.5 % LAB CHEMISTRY METHOD 04/27/2024 1:25 PM [facility] Mean Bld Glu Estim. 148 mg/dL LAB CHEMISTRY METHOD 04/27/2024 1:25 PM [facility] Blood Venous blood specimen / Unknown Venipuncture / Unknown 04/27/2024 4:45 AM EST 04/27/2024 9:16 AM EST us Mckenzie Hernandez MD LAB BLOOD ORDERABLES Final Resu lt [facility] [address] [place] [address], [place] [phone] * (ABNORMAL) Comprehensive metabolic panel (04/27/2024 4:45 [...] Final Resu lt [facility] [address] [place] [address], * (ABNORMAL) Complete blood count (04/27/2024 4:45 AM EST) [facility] WBC 8.5 4.8 - 10.8 K/mcL LAB [...] LAB HEMETOLOGY METHOD 04/27/2024 9:55 AM EST [facility] Blood Venous blood specimen / Unknown Venipuncture / Unknown 04/27/2024 4:45 AM EST 04/27/2024 9:16 AM EST Mckenzie Hernandez MD LAB BLOOD ORDERABLES Final Resu lt [facility] [address] [place] [address], documented in this encounter Visit Diagnoses Diagnosis Iron deficiency anemia, unspecified Vitamin D deficiency, unspecified Type 2 diabetes mellitus without complications documented in this encounter Care Teams Mental Hygienist Relationship Specialty Start Date End Date Mckenzie Hernandez MD [address] [place] [address] PCP - General Hospitalist Medicine 04/27/24 documented as of this encounter
--- OUTSIDE RECORDS SUMMARY | 2024-08-05 22:02 | XMS_ITS | Encounter Summary ---
Author Organization [employer] Address [address] [place] [address] 7t [place] [address] Care Team Providers Care Rn Practitioner Name Role Phone Neelima Brown MD Primary Care Provide r Encounter Details Date Type Department Care Team ([facility] st Contact Info) Description 02/03/2024 Telephone [facility] MEDICINE [address] [place], [place] [phone] Neelima Brown MD 230 [place], [place] [phone] Social History Tobacco Use Types Packs/Day Years [...] Description 09/25/2024 2:30 PM EDT Office Visit [facility] MEDICINE [address] [place], [place] [phone] Neelima Brown MD [address] [place] [address] documented as of this encounter Goals Goal [...] documented as of this encounter Care Teams Rn Practitioner Relationship Specialty Start Date End Date Neelima Brown MD [address] [place] [address] PCP - General Family Medicine 01/15/18 Nolvia Delgado Permaculture ContractorJob Forwarder 08/29/23 Dixon ARCHIBALD 03/05/24 documented as of this encounter
--- OUTSIDE RECORDS SUMMARY | 2024-08-05 22:02 | XMS_ITS | Encounter Summary ---
Author Organization [facility] Address [address] [place] [address] Care Team Providers Care Production Expediter Name Role Phone Mckenzie Hernandez MD Primary Care Provider [phone] Encounter Details Date Type Department Care Team (Late st Contact Info) Description 05/15/2024 Lab Requisition [facility] - Main Lab 299 [facility] [place] [address] Mckenzie Hernandez MD [address] [place] [address] Hyperkalemia Social History Tobacco Use Types Packs/Day [...] LAB CHEMISTRY METHOD 05/18/2024 12:51 PM EST [facility] Potassium 5.7(H) 3.5 - 5.5 mmol/L LAB CHEMISTRY METHOD 05/18/2024 12:51 PM EST [facility] Chloride 108 96 - 110 mmol/L LAB CHEMISTRY METHOD 05/18/2024 12:51 PM EST [facility] LAB CO2 26 21 - 32 [...] 22.1 LAB CHEMISTRY METHOD 05/18/2024 12:51 PM [facility] LAB Calcium 9.0 8.5 - 10.5 mg/dL LAB CHEMISTRY METHOD 05/18/2024 12:51 PM [facility] Blood Venous blood specimen / Unknown Venipuncture / Unknown 05/18/2024 4:41 AM EST 05/18/2024 11:07 AM EST us Mckenzie Hernandez MD LAB BLOOD ORDERABLES Final Resu lt [facility] [address] [place] [address], documented in this encounter Visit Diagnoses Diagnosis Hyperkalemia Hyperpotassemia documented in this encounter Care Teams Production Expediter Relationship Specialty Start Date End Date Mckenzie Hernandez MD [address] [place] [address] PCP - General Hospitalist Medicine 04/27/24 documented as of this encounter
--- OUTSIDE RECORDS SUMMARY | 2024-08-05 22:02 | XMS_ITS | Encounter Summary ---
Author Organization [employer] Address [address] [place] [address] 7t [place] [address] Care Team Providers Care Newspaper Reporter Name Role Phone Neelima Brown MD Primary Care Provide r Reason for Visit * Reason Onset Date Comments Rebilitation discharge 11/12/2022 Encounter Details Date Type Department Care Team ([facility] st Contact Info) Description 11/12/2022 Telephone [facility] MEDICINE [address] [place], [place] [phone] Neelima Brown MD 230 [place] [address] Rebilitation discharge Social History Tobacco Use Types [...] pt being recently discharge last Saturday11/09/2022 from [facility] [address] [facility], [place] [address] Please contact son at [phone] documented in this encounter Plan of Treatment Upcoming Encounters Date Type Department Care Team ([facility] st Contact Info) Description 09/25/2024 2:30 PM EDT Office Visit [facility] MEDICINE [address] [place] [address] Neelima Brown MD [address] [place] [address] documented as of this encounter Visit Diagnoses Not on filedocumented in this encounter Care Teams Newspaper Reporter Relationship Specialty Start Date End Date Neelima Brown MD [address] [place] [address] PCP - General Family Medicine 01/15/18 Yara Salas Linseed Oil Temperer 07/01/23 09/27/23 Nolvia Delgado Linseed Oil TempererMortgage Closer 08/29/23 Dixon ARCHIBALD 03/05/24 documented as of this encounter
--- OUTSIDE RECORDS SUMMARY | 2024-08-05 22:02 | XMS_ITS | Clinical Summary ---
Demographics Address [address] [place] [address] Mobile Phone Email Address Preferred Language es Marital Status Single Sabianist Affiliation Unknown Race Other Race Ethnic Group or Author Organization [email or web address] Address [address] [place] [address] [address] [place] [address] Care Team Providers Care Medicine Aide Name Role Phone Neelima Brown MD Primary Care Provide r Allergies Active Allergy Reactions Criticality Noted Date Comments Shrimp Extract Swelling 06/07/2022 Other reaction(s): Swelling Medications * This document contains information received from the source organization and may not represent a complete record from that organization. Misc. Devices (Fingertip Pulse Oximeter) miscIndications :Orthostatic [...] hyperglycemia, with long-term current use of insulin (CMS/[facility]) Use to test blood sugar 2 times daily 100 each 12 024 2024 Active Lancets miscIndications :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, with long-term current use of insulin (CMS/HCC) Use to test blood sugar 2 times daily 100 each 024 Active Aspirin Low Dose 81 MG EC tabletIndicatio ns: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, unspecified whether intermediate insulin use ([facility]) Take 1 tablet (81 mg) by mouth Once per day. 90 tablet 3 024 Active omeprazole (PriLOSEC) [address] capsuleIndicati ons:Heartburn,N ausea and vomiting, unspecified vomiting type Take 1 capsule (40 mg) by mouth before breakfast. Do not crush or chew. 30 capsule 2 024 2024 Active amLODIPine (Norvasc) 10 MG tabletIndicatio ns:Hypertensive urgency TAKE 1 TABLET BY MOUTH EVERY DAY 90 tablet 1 024 Active lactulose (Chronulac) 10 GM/15ML solution Take 15 mL by mouth if needed in the morning and at bedtime (constipation). Active UltiCare Pen [place] 29G X 12.7MM miscIndications :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, unspecified whether intermediate insulin use ([facility]) USE FOUR TIMES DAILY 100 each 11 Active Blood Glucose Monitoring Suppl (LiveIntent Lite) w/Device kitIndications: 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, unspecified whether intermediate insulin use ([facility]) Use to test blood sugar 2 times daily 1 kit Active Lantus SoloStar 100 UNIT/ML penIndications: 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, unspecified whether longwall headgate operator insulin use ([facility]) INJECT 10 UNITS SUBCUTANEOUSLY at [...] OTHER DAY 45 tablet 1 025 Active ondansetron (Zofran) 4 MG tabletIndicatio ns:Nausea TAKE 2 TABLETS BY MOUTH EVERY 8 HOURS NEEDED FOR NAUSEA AND VOMITING 30 tablet 1 025 Active Alcohol Swabs (Alcohol Prep) 70 % pads Apply 1 each topically Once per day. USE FIVE TIMES DAILY WITH INSULIN 100 each 11 025 Active Alcohol Swabs (Alcohol Prep) 70 % pads USE FIVE TIMES DAILY WITH INSULIN 100 each 11 023 2024 Discontinued(R eorder (will not trigger notification to Pharmacy)) Blood Glucose Monitoring Suppl (LiveIntent Lite) w/Device kitIndications: 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, with long-term current use of insulin ([facility]) Use to test blood sugar 2 times daily 1 kit 024 2024 Discontinued(M ed list cleanup (will not trigger notification to Pharmacy)) ferrous [...] 2 diabetes mellitus 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, unspecified whether intermediate insulin use ([facility]) INJECT 8 UNITS SUBCUTANEOUSLY once daily 3 mL 2 025 2024 Discontinued(R eorder (will not trigger notification to Pharmacy)) ondansetron (Zofran) 4 MG tabletIndicatio ns:Nausea Take 2 tablets (8 mg) by mouth every 8 (eight) hours if needed for nausea or vomiting for up to 10 days. 30 tablet 1 025 2024 Discontinued sulfamethoxazol e-trimethoprim (Bactrim DS) 800-160 MG tabletIndicatio ns:UTI symptoms Take 1 tablet by mouth 2 times daily for 7 days. 14 tablet 025 2024 Active Problems Problem Noted Date [...] Encounters Date Type Department Care Team Description 08/05/2024 Telephone [facility] MEDICINE [address] [place] [address] Neelima Brown MD Nurse Triage 08/05/2024 Telephone [facility] OPTOMETRY [address] [place] [address] OctavianoNicole caceres, OD 08/03/2024 Refill [facility] MEDICINE [address] [place] [address] Neelima Brown MD Nausea 08/03/2024 Patient Outreach [facility] MEDICINE [address] [place] [address] Neelima Brown MD Care Coordination (Outreach) 07/28/2024 Orders Only [facility] MEDICINE [address] [place] [address] Neelima Brown MD 07/28/2024 Orders Only [facility] MEDICINE [address] [place] [address] Neelima Brown MD 07/28/2024 Telephone [facility] MEDICINE [address] [place] [address] Neelima Brown MD Durable Medical Equipment (Digital scale) 07/28/2024 Telephone [facility] MEDICINE [address] [place] [address] Neelima Brown MD Results 07/27/2024 Orders Only [facility] MEDICINE [address] [place] [address] Neelima Brown MD UTI symptoms (Primary Dx) 07/24/2024 2:00 PM EDT Office Visit [facility] MEDICINE [address] [place] [address] Lily Cortes NP Hospital discharge follow-up (Primary Dx); 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, with long-term current use of insulin ([facility]); Serum potassium elevated; Acute on chronic congestive heart failure, unspecified heart failure type (CMS/HCC) 07/24/2024 Orders Only GENERIC EXTERNAL DATA DEPARTMENT Provider, Generic External Data 07/24/2024 Travel 07/23/2024 Patient Outreach [facility] MEDICINE [address] [place] [address] Neelima Brown MD Care Coordination (Outreach) 07/23/2024 Telephone [facility] MEDICINE [address] [place] [address] Alexandre LauryZAFAR salazar chartprep 07/22/2024 Refill [facility] MEDICINE [address] [place] [address] Neelima Brown MD Anemia, unspecified type 07/21/2024 1:00 PM EDT Office Visit [facility] WALK-IN CENTER [address] [place] [address] Neelima Brown MD UTI symptoms (Primary Dx); 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, unspecified whether longwall headgate operator insulin use (CMS/HCC); Essential hypertension 07/21/2024 Telephone [facility] MEDICINE [address] [place] [address] Neelima Brown MD Nurse Triage 07/20/2024 2:00 PM EDT Office Visit [facility] OPTOMETRY [address] [place] [address] Octaviano, Nicole, OD 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, associated with type 2 diabetes mellitus (CMS/HCC) (Primary Dx); Proliferative diabetic retinopathy of right eye associated with type 2 diabetes mellitus, unspecified proliferative retinopathy type (CMS/HCC); Combined forms of age-related cataract of both eyes; Presbyopia 07/20/2024 Travel 07/17/2024 Patient Outreach [facility] MED & PEDS [address] [place], [place] [phone] Neelima Brown MD Care Coordination (Outreach) 07/17/2024 Population Health Risk Score Community Care [facility] (C[facility]) Department [address] [place] [phone] Provider, Population Health Generic 07/16/2024 Patient Outreach [facility] MEDICINE [address] [place] [address] Neelima Brown MD Transition Of Care (Tcm) (HDF unscheduled) 07/15/[address] [address] Neelima Brown MD Verbal Orders 07/08/2024 Patient Outreach [facility] MED [facility] PEDS [address] [place] [address] Neelima Brown MD Care Coordination (Outreach) 06/29/2024 1:00 PM EST Office Visit [address] [address] Neelima Brown MD 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, with long-term current use of insulin ([facility]) (Primary Dx); Congestive heart failure, unspecified HF chronicity, unspecified heart failure type (CMS/HCC); Pneumonia of both lungs due to infectious organism, unspecified part of lung; Urinary tract infection without hematuria, site unspecified; 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, unspecified whether intermediate insulin use (CMS/HCC); Acute kidney injury superimposed on CKD (CMS/HCC) ([facility]/HCC); Nausea; Diabetic polyneuropathy associated with type 2 diabetes mellitus ([facility]/HCC) 06/29/2024 Travel 06/24/[address] [address] Neelima Brown MD Chart Prep 06/18/2024 Patient Outreach [address] [phone] Neelima Brown MD SDOH Concerns (CHW SINDI Izquierdo PT1) 06/18/2024 Patient Outreach [address] [phone] Neelima Brown MD Care Coordination (CHW outreach for SDOH PT-1 and food needs-referral completed /) 06/18/[address] [address] Neelima Brown MD PT1 06/17/2024 Refill [facility] MED [facility] PEDS [address] [place], [place] [phone] Neelima Brown MD 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, unspecified whether intermediate insulin use ([facility]) 06/10/[address] [address] Winifred Land, JG HDF appointment 06/10/[address] [address] Fabienne Gonzalez [place] Chart Prep 06/09/[address] [address] Neelima Brown MD PT1 06/04/2024 Patient Outreach [address] [address] Neelima Brown MD Transition Of Care (Tcm) (HDF- scheduled) 05/31/2024 Orders Only [facility] External Provider, [facility] 05/22/[address] [address] Neelima Brown MD Medication Question 05/21/[address] [address] Neelima Brown MD verbal order 05/18/2024 Patient Outreach [address] [address] Neelima Brown MD Pre-visit Planning (HDF- Scheduled) [...] Description 09/25/2024 2:30 PM EDT Office Visit [facility] MEDICINE [address] [place] [address] Neelima Brown MD [address] [place] [address] Health Maintenance Due Date Last Done Comments [...] Routine 07/28/2024 10:30 AM EDT UTI symptoms CULTURE, URINE, ROUTINE Routine 07/28/2024 10:30 AM EDT UTI symptoms CULTURE, URINE, ROUTINE Routine 07/28/2024 12:00 AM EDT BASIC METABOLIC PANEL Routine 07/24/2024 2:50 [...] current use of insulin ([facility]) POCT GLYCATED HEMOGLOBIN, TOTAL Routine 06/29/2024 1:15 PM EST 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, with long-term current use of insulin (CMS/[facility]) POCT GLUCOSE Routine 06/29/2024 1:14 PM EST 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, with long-term current use of insulin ([facility]) XR CHEST 1 VIEW Routine [...] (07/28/2024 10:30 AM EDT) Color Urine Yellow [facility] Appearance Urine Turbid [facility] PH 8.0 5.0 - 9.0 [facility] Glucose Urine UA Negative Negative mg/dL [facility] Urine Blood Small (1+)(A) Negative [facility] Specific Pringle - Urine 1.010 1.005 - 1.025 [facility] Urine Protein 300 (3+)(A) Neg-Trace mg/dL [facility] Urine Ketones Negative Negative mg/dL [facility] Nitrite Urine Negative Negative [facility] Leukocyte Esterase Urine Large (3+)(A) Negative [facility] RBC Urine 0-2 0 - 2 /HPF [facility] Urine WBC >50(A) 0 - 5 /HPF [facility] Urine Squamous Epithelial Cell 6-10 0 - 2 /HPF [facility] Urine Bacteria 4+ None Seen [facility] Hyaline Casts, Urine 0-2 0 - 2 /LPF [facility] 07/28/2024 10:3 0 AM EDT 07/28/2024 1:05 PM EDT Narrative [facility] - 07/28/2024 2:05 PM EDT Urine, Clean Catch us Neelima Gómez MD LAB URINE ORDERABLES Final Result [facility] [address] [place] [phone] * (ABNORMAL) Urinalysis with reflex microscopic (07/28/2024 10:30 AM EDT) Color Urine Yellow [facility] Appearance Urine Turbid [facility] PH 8.0 5.0 - 9.0 [facility] Glucose Urine UA Negative Negative mg/dL [facility] Urine Blood Small (1+)(A) Negative [facility] Specific [place]le - Urine 1.010 1.005 - 1.025 [facility] Urine Protein 300 (3+)(A) Neg-Trace mg/dL [facility] Urine Ketones Negative Negative mg/dL [facility] Nitrite Urine Negative Negative [facility] Leukocyte Esterase Urine Large (3+)(A) Negative [facility] Urine (Urine, Random) 07/28/2024 10:30 AM EDT 07/28/2024 1:05 PM EDT Narrative [facility] - 07/28/2024 1:34 PM EDT Urine, Clean Catch Neelima Gómez MD LAB URINE ORDERABLES Final Result [facility] [address] [place] [phone] * Culture, Urine, Routine (07/28/2024 10:30 AM EDT) Only the most recent of2 resultswithin the time period is included. Urine Urine specimen obtained by clean catch procedure / Unknown 07/28/2024 10:30 AM EDT 07/28/2024 1:05 PM EDT Comment:UACC Narrative [facility] - 07/30/2024 8:05 AM EDT Klebsiella pneumoniae Quant > 100,000 cfu/mL Klebsiella pneumoniae: Ampicillin 16(R) Klebsiella pneumoniae: Cefazolin 2(S) Klebsiella pneumoniae: Cefepime <=0.12(S) Klebsiella pneumoniae: Ceftriaxone <=0.25(S) Klebsiella pneumoniae: Ciprofloxacin <=0.06(S) Klebsiella pneumoniae: Gentamicin <=1(S) Klebsiella pneumoniae: Nitrofurantoin 32(S) Klebsiella pneumoniae: Trimethoprim/Sulfamethoxazole <=20(S) Specimen Source: Urine clean catch us Neelima Gómez MD LAB MICROBIOLOGY - GE NERAL ORDERABLES Final Result Performing Organization Address [facility] Co de Phone Number [facility] [address] [place] [phone] * Vitamin B12/Folate, Serum Panel (07/24/2024 2:50 PM EDT) Vitamin B12 439 200 - 900 pg/mL [facility] Comment:NORMAL 200-900 PG/ML INDETERMINATE 160-199 PG/ML DEFICIENT < 160 PG/ML Folate 15.1 > or = 4.0 ng/mL [facility] Comment:Reference Values:> o r = [...] BLOOD ORDERABLES Final Result Performing Organization Address [facility] Co de Phone Number [facility] [address] [place] [phone] * TSH with Reflex to Free T4 (07/24/2024 2:50 PM EDT) TSH reflex Free T4 2.32 0.32 - 4.0 uIU/mL [facility] Blood 07/24/2024 2:50 PM EDT 07/24/2024 4:16 PM EDT us Neelima Gómez MD LAB BLOOD ORDERABLES Final Result Performing Organization Address City/[facility]/ZIP Co de Phone Number [facility] [address] [place] [phone] * (ABNORMAL) Lipid Panel with Reflex to Direct LDL (07/24/2024 2:50 PM EDT) Triglycerides 274(H) <150 mg/dL [facility] Comment:Desirable Triglyceri de: less than 150 mg/dLBorderline High Triglyceride 150-199 mg/dLHigh Triglyceride: 200-499 mg/dLVery High Triglyceride: greater than or equal to 5OO mg/dL Cholesterol 239(H) <200 mg/dL [facility] Comment:Desirable Cholestero l: less than 200 mg/dLBorderline High Cholesterol: 200-239 mg/dLHigh Cholesterol: greater than 239 mg/dL LDL Cholesterol Calculated 133(H) <100 mg/dL [facility] Comment:Desirable LDL: less than 100 mg/dLNear Optimal/Above Optimal LDL: 110- 129 mg/dLBorderline High LDL: 130-159 mg/dLHigh LDL: 160-189 mg/dLVery High LDL: greater than or equal to 190 mg/dL HDL Cholesterol 52 >40 mg/dL [facility] Comment:Desirable HDL: great er than 40 mg/dL Note: This HDL assay may give artificially low results in patients with liver disease. Blood 07/24/2024 2:50 PM EDT 07/24/2024 4:16 PM EDT Neelima Gómez MD LAB BLOOD ORDERABLES Final Result [facility] [address] [place] [phone] * (ABNORMAL) CBC auto differential (07/24/2024 2:50 PM EDT) White Blood Count 13.3(H) 4.8 - 10.8 X10*3/uL [facility] Red Blood Count 2.86(L) 4.20 - 5.50 X10*6/uL [facility] Hemoglobin 8.4(L) 12.0 - 16.0 g/dl [facility] Hematocrit 24.5(L) 37.0 - 47.0 % [facility] Mean Corpuscular Volume 85.7 80.0 - 98.0 fL [facility] Mean Corpuscular Hemoglobin 29.4 27.0 - 33.0 pg [facility] Mean Corpuscular HGB Conc 34.3 31.0 - 35.0 g/dl [facility] Red Cell Distribution Width 14.6 11.0 - 16.0 % [facility] Platelet Count 224 160 - 400 X10*3/uL [facility] Mean Platelet Volume 9.1(L) 9.4 - 12.3 fL [facility] Neutrophils Percent Auto 73.9(H) 45 - 73 % [facility] Imm Gran Pct Auto 0.5(H) 0.0 - 0.4 % [facility] Lymphocytes Percent Auto 18.9(L) 20 - 40 % [facility] Monocytes Percent Auto 4.8 2 - 11 % [facility] Eosinophils Percent Auto 1.7 0 - 4 % [facility] Basophils Percent Auto 0.2 0 - 2 % [facility] NRBC Pct Auto 0.0 0.0 - 0.2 /100WBC [facility] Neutrophils Absolute Auto 9.8(H) 2.0 - 8.3 x10*3/uL [facility] Imm Gran Abs Auto 0.06(H) 0.00 - 0.03 X10*3/uL [facility] Lymphocytes Absolute Auto 2.5 1.2 - 4.9 X10*3/uL [facility] Monocytes Absolute Auto 0.6 0.1 - 1.2 X10*3/uL [facility] Eosinophils Absolute Auto 0.2 0.0 - 0.4 X10*3/uL [facility] Basophils Absolute Auto 0.0 0.0 - 0.2 X10*3/uL [facility] NRBC Abs Auto 0.000 0.0 - 0.012 X10*3/uL [facility] Blood Venous blood specimen / Unknown 07/24/2024 2:50 PM EDT 07/24/2024 4:19 PM EDT us Neelima Gómez MD LAB BLOOD ORDERABLES Final Result Performing Organization Address [facility]/ZIP Co de Phone Number [facility] [address] [place] [phone] * (ABNORMAL) Iron And Total Iron Binding Capacity (07/24/2024 2:50 PM EDT) Iron 36 30 - 160 mcg/dL [facility] Total Iron Binding Capacity 180(L) 228 - 428 mcg/dL [facility] Percent Iron Saturation 20 15 - 50 % [facility] Unsaturated Iron Binding 144 ug/dL [facility] Blood Venous blood specimen / Unknown 07/24/2024 2:50 PM EDT 07/24/2024 4:16 PM EDT us Neelima Gómez MD LAB BLOOD ORDERABLES Final Result Performing Organization Address [facility] Co de Phone Number [facility] [address] [place] [phone] * RPR (Monitor) with Reflex to??Titer (07/24/2024 2:50 PM EDT) Pathologist [facility] RPR (Monitor) w/Refl Titer NON-REACTI VE NON-REACT BRANDI [facility] Comment:THIS TEST WAS PERFOR MED AT:[facility] [place] [phone] LYLES MD Rapid Plasma Reagin Ab Titer TNP [facility] Blood Venous blood specimen / Unknown 07/24/2024 2:50 PM EDT 07/24/2024 4:19 PM EDT us Neelima Gómez MD LAB BLOOD ORDERABLES Final Result Performing Organization Address [facility]/ZIP Co de Phone Number [facility] [address] [place] [phone] * (ABNORMAL) Ferritin (07/24/2024 2:50 PM EDT) Ferritin 434(H) 10 - 250 ng/mL [facility] Blood Venous blood specimen / Unknown 07/24/2024 2:50 PM EDT 07/24/2024 4:16 PM EDT us Neelima Gómez MD LAB BLOOD ORDERABLES Final Result [facility] [address] [place] [phone] * (ABNORMAL) Hepatic Function Panel (07/24/2024 2:50 PM EDT) Bilirubin, Total 0.2 0.0 - 1.0 mg/dL [facility] Bilirubin, Direct <0.2 0.0 - 0.5 mg/dL [facility] Aspartate Amino Transferase 21 5 - 31 U/L [facility] Alanine Aminotransferase 22 0 - 31 U/L [facility] Total Protein 6.7 6.5 - 8.0 g/dL [facility] Albumin Level 3.0(L) 3.5 - 5.0 g/dL [facility] Alkaline Phosphatase 71 39 - 117 U/L [facility] Blood Venous blood specimen / Unknown 07/24/2024 2:50 PM EDT 07/24/2024 4:16 PM EDT us Neelima Gómez MD LAB BLOOD ORDERABLES Final Result Performing Organization Address City/[facility]/ZIP Co de Phone Number [facility] [address] [place] [phone] * (ABNORMAL) Basic Metabolic Panel (07/24/2024 2:50 PM EDT) Only the most recent of2 resultswithin the time period is included. Sodium 143 135 - 145 mmol/L [facility] Potassium 3.5 3.3 - 5.1 mmol/L [facility] Chloride 111(H) 96 - 108 mmol/L [facility] Carbon Dioxide 25 22 - 29 mmol/L [facility] Anion Gap 11(L) 12 - 20 [facility] Urea Nitrogen (BUN) 42(H) 9 - 16 mg/dL [facility] Creatinine, Serum 2.02(H) 0.5 - 1.4 mg/dL [facility] Estimated Glomerular Filt Rate 26 [facility] Comment:Chronic Kidney Disea se: Estimated GFR < 60 mL/min/1.99b7Iioslo Kidney Disease: Estimated GFR < 15 mL/min/1.73m2 Glucose 94 60 - 115 mg/dL [facility] Calcium 8.6 8.4 - 10.2 mg/dL [facility] 07/24/2024 2:50 PM EDT 07/24/2024 4:16 PM EDT Generic External Data Provider LAB BLOOD ORDERAB LES Final Result [facility] [address] [place] [phone] * POCT Glucose (07/24/2024 2:21 PM [...] Media Lot # [id number] Lot# Expiration Date [id number] Blood 06/29/2024 1:15 PM EST us Neelima Gómez MD POINT OF CARE TEST EN TER/EDIT ORDERABLES Final Result * XR Chest 1 View (06/01/2024 9:30 AM EST) Anatomical Region Laterality Modality Chest Radiographic Kim ging 06/01/2024 9:30 AM EST Narrative 06/01/2024 10:30 AM EST ? [facility] ?[address] ?[place] [address] ?XRay Report ? Signed ? Patient: Loya,Queta ?MR#: [id number] ? : 1970 ?Acct:[id number] ? Age/Sex: 54 / F ?ADM Date: 05/31/24 ? Loc: [facility] ?462-1 ? Attending Dr: Madhu Gonzalez MD ? Ordering Physician: Gene Linares ?? Date of Service: 06/01/24 ?? Procedure(s): XR chest 1V ?? Accession Number(s): [id number] ? cc: Neelima Brown MD; Gene Linares [...] 10:27 AM EST RP ? Dictated By: ?Chika,Jeremiah S MD ? Signed By: ?<Electronically signed by Jeremiah S MD Chika in OV> ?06/01/24 1027 ? DD/ 0930 ? TD/TT: 06/01/24 0945 ? Substation Operator Helper Generation: MSM ? Procedure Note Donotuseinterpreter, Image - 06/01/[address] [address] XRay Report Signed Patient: Parish Loya#: [id number] : 1970Acct:[id number] Age/Sex: 54 / FADM Date: 05/31/24 Loc: [facility] 462-[address]: Madhu Gonzalez MD Ordering Physician: Gene Linares Date of Service: 06/01/24 Procedure(s): XR chest 1V Accession Number(s): [id number] cc: Neelima Brown MD; Gene Linares EXAMINATION: [...] 06/01/24 1027 DD/ 0930 TD/TT: 06/01/24 0945 Substation Operator Helper Generation: ERIC [facility] External Provider IMG XR PROCEDURES Final Result * US THORACENTESIS (06/01/2024 9:00 AM EST) Anatomical Region Laterality Modality Abdomen Ultrasound 06/01/2024 9:00 AM EST Narrative 06/01/2024 2:51 PM EST ? [facility] ?[address] ?[place] [address] ? Ultrasound Report ? Signed ? Patient: Loya,Queta ?MR#: [id number] ? : 1970 ?Acct:[id number] ? Age/Sex: 54 / F ?ADM Date: 05/31/24 ? Loc: [facility] ?462-1 ? Attending Dr: Madhu Gonzalez MD ? Ordering Physician: Mickie Mckeon MD ?? Date of Service: 06/01/24 ?? Procedure(s): US thoracentesis ?? Accession Number(s): [id number] ? cc: Neelima Brown MD; Mickie Mckeon MD ? PROCEDURE: ?? Ultrasound-guided left thoracentesis ? History: ?? Left pleural effusion ? Specimen: ?? None ? Access: ?? 5 Jordanian Yueh catheter ? Medications: ?? 10 mL [...] demonstrate a safe access route. A 5 Jordanian Yueh catheter was ?? then used to [...] DD/ 0900 ? TD/TT: 06/01/24 0921 ? Substation Operator Helper Generation: ? Procedure Note Donotuseinterpreter, Image - 06/01/[address] [address] Ultrasound Report Signed Patient: Parish Loya#: [id number] : 1970Acct:[id number] Age/Sex: 54 / FADM Date: 05/31/24 Loc: [facility] 462-[address]: Madhu Gonzalez MD Ordering Physician: Mickie Mckeon MD Date of Service: 06/01/24 Procedure(s): US thoracentesis Accession Number(s): [id number] cc: Neelima Brown MD; Mickie Mckeon MD PROCEDURE: Ultrasound-guided left thoracentesis History: Left pleural effusion Specimen: None Access: 5 Jordanian Yueh catheter Medications: 10 mL 1% lidocaine [...] demonstrate a safe access route. A 5 Jordanian Yueh catheter was then used to access [...] Akash Raymond MD 06/01/2024 02:48 PM EST Dictated By: Gene Linares Signed By: <Electronically signed by Gene Linares in OV> 06/01/24 1448 <Electronically signed by Akash Raymond MD in OV> 06/01/24 1450 DD/ 0900 TD/TT: 06/01/24 0921 Substation Operator Helper Generation: [facility] External Provider IMG US PROCEDURES Final [...] Creatinine, Urine 26 20 - 275 mg/dL [facility] 11/20/2021 2:21 PM EDT Neelima Gómez MD LAB URINE ORDERABLES Final Result [facility] [address] * Mammography Report 1 (07/17/2021 2:10 [...] was performed using the APTIMA(R) HPV Assay ([employer] This assay detects E6/E7 viral messenger RNA (mRNA) from 14 high-risk HPV types (16,18,31,33,35,39,45,51, 52,56,58,59,66,68). For additional information please refer to: http://education.NebuAd/faq/LMG093h0 (This link is being provided for informational/ educational purposes only.) The analytical performance characteristics of this assay have been determined by [employer] [place], [place]. The modifications have not been cleared or approved by the FDA. This assay has been validated pursuant to the CLIA regulations and is used for clinical purposes. Test [facility]formed by [facility], [email or web address] [facility], [address] [place] [address] Chris Simpson M.D., Ph.D., Director of Laboratories , CLIA [id number] Please note: ??Effective 01/16/2016, HPV testing will be performed using [employer]'s APTIMA test which targets mRNA. Detecting mRNA instead of DNA, as in older methods, offers significant improvements in specificity. 07/23/2018 11:1 6 AM EDT us Neelima Gómez MD HISTORICAL/NON ORDERA BLE LABS Final Result [facility] [address] from Last 3 Months or Most Recently Relevant to Health Maintenance Insurance [facility] C3 Care Teams Medicine Aide Relationship Specialty Start Date End Date Neelima Brown MD [address] [place] [id number] PCP - General Family Medicine 01/15/18 Nolvia Delgado Dialysis Social WorkerHousekeeping Supervisor Hotel 08/29/23 Dixon ARCHIBALD 03/05/24
--- OUTSIDE RECORDS SUMMARY | 2024-08-05 22:02 | XMS_ITS | Encounter Summary ---
Author Organization [facility] Address [address] [place] [address] Care Team Providers Care Professional Tutor Name Role Phone Mckenzie Hernandez MD Primary Care Provider [phone] Encounter Details Date Type Department Care Team (Late st Contact Info) Description 05/13/2024 Lab Requisition [facility] - Main Lab [address] [facility] [place] [address] Mckenzie Hernandez MD [address] [place] [phone] Hyperkalemia Social History Tobacco Use Types Packs/Day [...] LAB CHEMISTRY METHOD 05/14/2024 1:26 PM EST [facility] Potassium 4.9 3.5 - 5.5 mmol/L LAB CHEMISTRY METHOD 05/14/2024 1:26 PM EST [facility] Chloride 108 96 - 110 mmol/L LAB CHEMISTRY METHOD 05/14/2024 1:26 PM EST [facility] CO2 22 21 - 32 mmol/L LAB CHEMISTRY METHOD 05/14/2024 1:26 PM [facility] Anion Gap 7 3 - 11 LAB CHEMISTRY METHOD 05/14/2024 1:26 PM [facility] Glucose 93 70 - 100 mg/dL LAB CHEMISTRY METHOD 05/14/2024 1:26 PM [facility] BUN 48(H) 5 - 25 mg/dL LAB CHEMISTRY METHOD 05/14/2024 1:26 PM [facility] Creatinine 2.50(H) 0.50 - 1.10 mg/dL LAB CHEMISTRY METHOD 05/14/2024 1:26 PM [facility] eGFR 22(L) >=60 mL/min/1. 73m2 LAB CHEMISTRY METHOD 05/14/2024 1:26 PM [facility] Comment:Calculation based on the??Chronic Kidney Disease Epidemiology Collaboration (CKD-EPI) equation refit??without adjustment for race. BUN/Creatinine Ratio 19.2 LAB CHEMISTRY METHOD 05/14/2024 1:26 PM [facility] Calcium 8.8 8.5 - 10.5 mg/dL LAB CHEMISTRY METHOD 05/14/2024 1:26 PM [facility] Blood Venous blood specimen / Unknown Venipuncture / Unknown 05/14/2024 6:06 AM EST 05/14/2024 11:35 AM EST us Mckenzie Hernandez MD LAB BLOOD ORDERABLES Final Resu lt [facility] [address] [place] [address], documented in this encounter Visit Diagnoses Diagnosis Hyperkalemia Hyperpotassemia documented in this encounter Care Teams Professional Tutor Relationship Specialty Start Date End Date Mckenzie Hernandez MD [address] [place] [phone] PCP - General Hospitalist Medicine 04/27/24 documented as of this encounter
--- OUTSIDE RECORDS SUMMARY | 2024-08-05 22:02 | XMS_ITS | Clinical Summary ---
Author Organization [address] Address [address] [place] [address] Phone Care Team Providers Care Student Development Advisor Name Role Phone Mckenzie Hernandez MD Primary Care Provider Encounters Date Type Department Care Team Description 05/20/2024 Lab Requisition [facility] [address] [place] [phone] Mckenzie Hernandez MD Hyperkalemia 05/15/2024 Lab Requisition [facility] - Main Lab [address] [place] [address] Mckenzie Hernandez MD Hyperkalemia 05/13/2024 Lab Requisition [facility] [address] [place] [address] Mckenzie Hernandez MD Hyperkalemia 05/12/2024 Lab Requisition [facility] [address] [place] [address] Mckenzie Hernandez MD Hyperkalemia 05/11/2024 Lab Requisition [facility] [address] [place] [address] Mckenzie Hernandez MD Chronic kidney disease, unspecified 05/11/2024 Lab Requisition [facility] [address] [place] [address] Mckenzie Hernandez MD Hyperkalemia 05/07/2024 Lab Requisition [facility] [address] [place] [address] Mckenzie Hernandez MD Chronic kidney [...] 7:00 AM EST Chronic kidney disease, unspecified HEMOGLOBIN A1C Routine 04/27/2024 4:45 AM EST Iron deficiency anemia, unspecified Vitamin D deficiency, unspecified Type 2 diabetes mellitus without complications (CMS/HCC) from Last 3 Months or Most Recently Relevant to Health Maintenance Results * (ABNORMAL) Basic metabolic panel (05/18/2024 4:41 AM EST) Only the most recent of5 resultswithin the time period is included. Sodium 138 133 - 145 mmol/L LAB CHEMISTRY METHOD 05/18/2024 12:51 PM [facility] Potassium 5.7(H) 3.5 - 5.5 mmol/L LAB CHEMISTRY METHOD 05/18/2024 12:51 PM [facility] Chloride 108 96 - 110 mmol/L LAB CHEMISTRY METHOD 05/18/2024 12:51 PM [facility] CO2 26 21 - 32 mmol/L LAB CHEMISTRY METHOD 05/18/2024 12:51 PM [facility] Anion Gap 4 3 - 11 LAB CHEMISTRY METHOD 05/18/2024 12:51 PM [facility] Glucose 114(H) 70 - 100 mg/dL LAB CHEMISTRY METHOD 05/18/2024 12:51 PM [facility] BUN 52(H) 5 - 25 mg/dL LAB CHEMISTRY METHOD 05/18/2024 12:51 PM [facility] Creatinine 2.35(H) 0.50 - 1.10 mg/dL LAB CHEMISTRY METHOD 05/18/2024 12:51 PM [facility] eGFR 24(L) >=60 mL/min/1. 73m2 LAB CHEMISTRY METHOD 05/18/2024 12:51 PM [facility] Comment:Calculation based on the??Chronic Kidney Disease Epidemiology Collaboration (CKD-EPI) equation refit??without adjustment for race. BUN/Creatinine Ratio 22.1 LAB CHEMISTRY METHOD 05/18/2024 12:51 PM [facility] Calcium 9.0 8.5 - 10.5 mg/dL LAB CHEMISTRY METHOD 05/18/2024 12:51 PM [facility] Blood Venous blood specimen / Unknown Venipuncture / Unknown 05/18/2024 4:41 AM EST 05/18/2024 11:07 AM EST us Mckenzie Hernandez MD LAB BLOOD ORDERABLES Final Resu lt [facility] [address] [place] [address], [place] [phone] * (ABNORMAL) Complete blood count (05/12/2024 6:38 AM EST) Only the most recent of2 resultswithin the time period is included. WBC 6.2 4.8 - 10.8 K/mcL LAB HEMETOLOGY METHOD 05/12/2024 10:25 AM EST [facility] RBC 2.90(L) 3.80 - 4.80 M/mcL LAB HEMETOLOGY METHOD 05/12/2024 10:25 AM [facility] Hemoglobin 8.3(L) 11.5 - 16.0 g/dL LAB HEMETOLOGY METHOD 05/12/2024 10:25 AM [facility] Hematocrit 25.6(L) 35.0 - 47.0 % LAB HEMETOLOGY METHOD 05/12/2024 10:25 AM EST [facility] MCV 89.2 79.0 - 98.0 FL LAB HEMETOLOGY METHOD 05/12/2024 10:25 AM [facility] MCH 28.9 27.0 - 32.0 pcg LAB HEMETOLOGY METHOD 05/12/2024 10:25 AM [facility] MCHC 32.4 32.0 - 37.0 g/dL LAB HEMETOLOGY METHOD 05/12/2024 10:25 AM [facility] RDW 15.0 11.0 - 15.0 % LAB HEMETOLOGY METHOD 05/12/2024 10:25 AM [facility] Platelets 166 130 - 400 K/mcL LAB HEMETOLOGY METHOD 05/12/2024 10:25 AM [facility] MPV 8.5 7.0 - 11.0 FL LAB HEMETOLOGY METHOD 05/12/2024 10:25 AM EST [facility] NRBC 0.0 <1.0 % LAB HEMETOLOGY METHOD 05/12/2024 10:25 AM EST [facility] NRBC Absolute 0.00 <0.10 K/mcL LAB HEMETOLOGY METHOD 05/12/2024 10:25 AM EST [facility] Blood Venous blood specimen / Unknown Venipuncture / Unknown 05/12/2024 6:38 AM EST 05/12/2024 9:56 AM EST Mckenzie Hernandez MD LAB BLOOD ORDERABLES Final Resu lt Performing Organization Address [facility]/ZIP Co de Phone Number [facility] [address] [place] [address], [place] [phone] * (ABNORMAL) Hemoglobin A1c (04/27/2024 4:45 AM EST) Hemoglobin A1C 6.8(H) <6.5 % LAB CHEMISTRY METHOD 04/27/2024 1:25 PM EST [facility] Mean Bld Glu Estim. 148 mg/dL LAB CHEMISTRY METHOD 04/27/2024 1:25 PM EST [facility] Blood Venous blood specimen / Unknown Venipuncture / Unknown 04/27/2024 4:45 AM EST 04/27/2024 9:16 AM EST us Mckenzie Hernandez MD LAB BLOOD ORDERABLES Final Resu lt Performing Organization Address City/[facility]/ZIP Co de Phone Number [facility] [address] [place] [address], [place] [phone] from Last 3 Months or Most Recently Relevant to Health Maintenance Insurance MEDICA[place] - [place] Care Teams Student Development Advisor Relationship Specialty Start Date End Date Mckenzie Hernandez MD [address] [place] [phone] PCP - General Hospitalist Medicine 04/27/24
--- NOTE | 2024-08-05 22:37 | MHC.EDTECH ---
pt aware we need urine sample
[2024-08-05] MEDS: 0.9 % Sodium Chloride 1,000 ML 999 ML IV (22:56)
[2024-08-05] MEDS: Potassium Chloride/H20 10 MEQ/100 ML PIGGYBACK 100 MEQ IV ×2 (22:57→23:50)
[2024-08-05 23:08] LABS: OBS Int Ctl Valid YES; OBS1 POSITIVE (NEGATIVE)
[2024-08-05] MEDS: Metoclopramide HCl 10 MG/2 ML VIAL IVPUSH (23:09)
[2024-08-05] MEDS: diphenhydrAMINE HCL 50 MG/ML VIAL 25 MG IVPUSH (23:09)
[2024-08-06] VITALS (8 sets, daily range): BP systolic 134–163; BP diastolic 59–71; PULSE 60–81; RESP 12–20; TEMP 36.4–36.9; O2SAT 92–97
--- NOTE | 2024-08-06 00:18 | P.HPHOSP_ITS ---
History of Present Illness Date of Service: 08/06/24 Chief Complaint: Blood in vomitus This is a 54-year-old Ivorian-speaking female with pertinent history of chronic combined systolic and diastolic congestive heart failure, chronic hypoxemic respiratory failure due to COPD on 2-3 L supplemental oxygen, hypertension, insulin-dependent diabetes mellitus, gastroesophageal reflux disease, mixed hyperlipidemia, CKD stage 3 who presents to the emergency department for evaluation of blood in vomitus. History obtained with the help of pocket flap creasing machine operator. Patient states she has been having nausea which began 1 day prior to presentation. Had an episode of emesis which contained dark blood. Only had 1 episode of hematemesis on the day of presentation. Denies loose stools, melena, hematochezia. No fever, chills, chest pain, palpitations, shortness of breath. In the emergency department, stool occult positive for blood. Creatinine found to be elevated at 3.39 Review of Systems 2 Constitutional: Constitutional: Reports fatigue and Reports malaise Cardiovascular: Cardiovascular: Reports no additional cardiovascular complaints Respiratory: Respiratory: Reports no additional respiratory complaints Gastrointestinal: Gastrointestinal: Reports hematemesis Genitourinary: Genitourinary: Reports no additional female genitourinary complaints Endocrine: Endocrine: Reports fatigue PMFSH Medical History Pneumonia of both lungs due to infectious organism Heartburn Urinary incontinence Seborrheic dermatitis Forgetfulness Low serum cortisol level Nausea with vomiting Acute kidney injury Anxiety GERD (gastroesophageal reflux disease) Unstable gait Diabetic polyneuropathy associated with type 2 diabetes mellitus Other constipation Idiopathic hypotension Lower abdominal pain Leg weakness Tooth disorder Positive RPR test Noncompliance with treatment Metabolic encephalopathy Illiteracy and low-level literacy Glaucoma Chest pain Congestive heart failure Bilateral pleural effusion Anemia CHF (congestive heart failure) Urinary tract infection Hypertension Symptomatic anemia Brain lesion Iron deficiency anemia HLD (hyperlipidemia) Depression Type 2 diabetes mellitus Family History Other Hypertension Social History Household Members: Children Household Members Other:: Daughter Housing: Apartment Do you presently have visiting nurse or other home services: Yes Unable to assess alcohol history related to: Unable to respond Alcohol intake: former Patient Tobacco Use Status: Never used Tobacco e-Cigarette/Vaping Use: Never Used Second Hand Smoke Exposure: No Advance Directives: Yes Advance Directives on File: Yes Advance Directives Date on File: 06/19/21 Patient : No service: No Current occupational status: unemployed Meds Allergies Allergy/AdvReac Type Severity Reaction Status Date / Time shrimp Allergy Swelling Verified 08/05/24 19:36 Active Medications: Current Medications Potassium Chloride (Potassium Chloride/H20) 10 meq in 100 mls @ 100 mls/hr IV Q1H JM Stop: 08/06/24 00:44 Last Admin: 08/05/24 23:50 Dose: 100 mls/hr Potassium Chloride (Potassium Chloride/H20) 10 meq in 100 mls @ 100 mls/hr IV Q1H JM Stop: 08/06/24 01:14 Potassium Chloride (Potassium Chloride/H20) 10 meq in 100 mls @ 100 mls/hr IV Q1H JM Stop: 08/06/24 04:29 Home Medications ?Medication ?Instructions ?Recorded ?Confirmed ?Last Taken ?Type aspirin 81 mg tablet,delayed 1 tab PO DAILY 07/21/22 07/16/24 07/07/24 History release ferrous sulfate 324 mg (65 mg 324 mg PO DAILY 04/07/24 07/16/24 07/07/24 History iron) tablet,delayed release omeprazole 40 mg capsule,delayed 40 mg PO DAILY@0630 04/07/24 07/16/24 07/07/24 History release gabapentin 100 mg capsule 100 mg PO BEDTIME 05/31/24 07/16/24 07/06/24 History furosemide 20 mg tablet 20 mg PO DAILY 07/07/24 07/16/24 07/07/24 History insulin glargine 100 unit/mL 8 unit subcut BEDTIME 07/07/24 07/16/24 Unknown History subcutaneous solution (Lantus U-100 Insulin) ondansetron HCl 4 mg tablet 4 - 8 mg PO Q8H PRN nausea/vomiting 07/07/24 07/16/24 Unknown History Physical Exam 2 Vital Signs and Narrative: Vital Signs: Last Vital Signs Temp 97.1 F 08/05/24 19:33 Pulse 69 08/06/24 00:04 Resp 16 08/06/24 00:04 BP 147/63 H 08/06/24 00:04 Pulse Ox 97 08/06/24 00:04 O2 Del Method Nasal Cannula 08/06/24 00:04 O2 Flow Rate 2 08/06/24 00:04 BMI result Body Mass Index 22.0 Middle-aged female lying in bed in no distress on supplemental oxygen Neck supple, no JVD Regular rate and rhythm, S1-S2 heard Regular breath sounds bilaterally, no wheezing or crackles appreciated Abdomen soft nontender, no guarding, no rigidity Patient is awake, alert and oriented to self, place, time and person ; no focal motor deficit Psych: Normal mood Mild pedal edema Results Labs 08/05/24 21:02 08/05/24 21:02 Labs: Laboratory Results - last 24 hr 08/05/24 08/05/24 21:02 23:04 MCV 85.8 MCH 29.6 MCHC 34.5 RDW 14.9 Plt Count 192 MPV 8.4 L Immature Gran % (Auto) 0.3 Neut % (Auto) 63.1 Lymph % (Auto) 27.5 Treasure % (Auto) 5.4 Eos % (Auto) 3.4 Baso % (Auto) 0.3 Lymph # (Auto) 1.7 Treasure # (Auto) 0.3 Eos # (Auto) 0.2 Baso # (Auto) 0.0 Abs Immat Gran (auto) 0.02 Absolute Neuts (auto) 3.9 Absolute Nucleated RBC 0.000 Nucleated RBC % (auto) 0.0 Anion Gap 11 L Estim Creat Clear Calc 18.9 Estimated GFR 14 Random Glucose 87 Calcium 8.4 Magnesium 2.5 Total Bilirubin 0.2 Direct Bilirubin < 0.2 AST 27 ALT 38 H Alkaline Phosphatase 122 H Total Protein 6.3 L Albumin 3.1 L Lipase 18 Stool Occult Blood POSITIVE Influenza Type A (PCR) NEGATIVE Influenza Type B (PCR) NEGATIVE RSV RNA Qual (PCR) NEGATIVE SARS-CoV-2 RNA (RT-PCR) NEGATIVE Assessment and Plan (1) Acute hypokalemia: Status: Acute (2) Acute kidney injury superimposed on chronic kidney disease: Status: Acute (3) Hematemesis: Status: Acute Plan This is a 54-year-old Ivorian-speaking female with pertinent history of chronic combined systolic and diastolic congestive heart failure, chronic hypoxemic respiratory failure due to COPD on 2-3 L supplemental oxygen, hypertension, insulin-dependent diabetes mellitus, gastroesophageal reflux disease, mixed hyperlipidemia, CKD stage 3 who presents to the emergency department for evaluation of blood in vomitus. #. Acute GI bleed: Will admit patient with cardiac monitoring. Stool occult blood positive. Initiated IV Protonix. Consulted Gastroenterology, appreciate assistance. Closely monitor H&H #. Acute kidney injury on CKD stage 3: Monitor creatinine urine output with crystalloid resuscitation. Avoid nephrotoxins. #. Acute hypokalemia: Repleting #. Chronic combined systolic and diastolic congestive heart failure: Hold diuretics in the setting of DILLON. Resume as appropriate #. Chronic hypoxemic respiratory failure due to COPD: Continue baseline supplemental oxygen and home inhalers #. Insulin-dependent diabetes mellitus: Initiating Accu-Cheks with sliding scale insulin every 6 hours Med rec pending DVT prophylaxis: Mechanical DNI. Discussed with patient at bedside with the help of pocket flap creasing machine operator Admit as inpatient and will require two night minimum hospital stay for close monitoring of kidney function, H&H, hemodynamics, electrolytes (as above), which is not possible in a lesser acute setting. Gastroenterology consult pending Quality Stroke Does the patient have a stroke diagnosis?: No VTE Prior VTE?: No VTE Risk Level:: Medical - moderate - high VTE Device Contraindication: N/A - Device Ordered VTE Drug Contraindication: Treatment Not Indicated
[2024-08-06] MEDS: Potassium Chloride/H20 10 MEQ/100 ML PIGGYBACK 100 MEQ IV ×6 (01:01→07:15)
[2024-08-06] MEDS: Pantoprazole Sodium 40 MG/10 ML VIAL 80 MG IVPUSH (01:05)
[2024-08-06 01:14] LABS: Glucose, Whole Blood 74 mg/dL (60-115)
[2024-08-06 01:37] LABS: Troponin-I High Sensitivity 17.5 ng/L (<3.5-17.0)
--- NOTE | 2024-08-06 02:17 | PC.NURSE ---
This technical writer and editor assumed care of this Pt at 2300. Per Dr. Matson only 500 mL of NS to be administered. Pervious RN hung 1L, upon interaction to room, 1L of NS infused. 500 mL of NS charted against by this RN.
[2024-08-06 05:16] LABS: MANUAL DIFF FLAG NO
[2024-08-06 05:18] LABS: Basophils Percent Auto 0.4 % (0-2); Eosinophils Absolute Auto 0.2 X10*3/uL (0.0-0.4); Eosinophils Percent Auto 3.8 % (0-4); Imm Gran Abs Auto 0.01 X10*3/uL (0.00-0.03); Imm Gran Pct Auto 0.2 % (0.0-0.4); Lymphocytes Absolute Auto 1.9 X10*3/uL (1.2-4.9); Lymphocytes Percent Auto 35.6 % (20-40); Mean Corpuscular Hemoglobin 29.1 pg (27.0-33.0); Mean Corpuscular Volume 88.2 fL (80.0-98.0); Mean Platelet Volume 9.3 fL (9.4-12.3); Monocytes Absolute Auto 0.4 X10*3/uL (0.1-1.2); Monocytes Percent Auto 7.5 % (2-11); Neutrophils Absolute Auto 2.8 x10*3/uL (2.0-8.3); Neutrophils Percent Auto 52.5 % (45-73); Platelet Count 160 X10*3/uL (160-400); Red Cell Distribution Width 14.8 % (11.0-16.0); White Blood Count 5.2 X10*3/uL (4.8-10.8)
[2024-08-06 05:21] LABS: Hematocrit 19.4 % (37.0-47.0); Hemoglobin 6.4 g/dl (12.0-16.0)
--- NOTE | 2024-08-06 05:37 | PC.NURSE ---
critical labs: H/H 6.4/19.4 K 2.9
[2024-08-06 05:38] LABS: Anion Gap 10 (12-20); Blood Urea Nitrogen 45 mg/dL (9-16); Calcium 7.9 mg/dL (8.4-10.2); Carbon Dioxide 23 mmol/L (22-29); Chloride 111 mmol/L (96-108); Estimated Glomerular Filt Rate 15; Glucose Random 63 mg/dL (60-115); Potassium 2.9 mmol/L (3.3-5.1); Sodium 141 mmol/L (135-145)
[2024-08-06] MEDS: Pantoprazole Sodium 40 MG/10 ML VIAL IVPUSH ×2 (06:01→17:27)
--- NOTE | 2024-08-06 06:04 | PC.NURSE ---
2nd IV placed to R forearm 20g. pt resting comfortably at this time
--- NOTE | 2024-08-06 06:42 | MHC.EDTECH ---
blood bank called, blood now ready. JG Roldan aware.
[2024-08-06 06:44] LABS: Glucose, Whole Blood 58 mg/dL (60-115)
[2024-08-06] MEDS: Dextrose 50 % 25 GM/50 ML SYRINGE IVPUSH (06:47)
--- NOTE | 2024-08-06 06:51 | PC.NURSE ---
POC 58. pt awake and alert. pt given d50 at this time.
[2024-08-06 07:06] LABS: Appearance Urine Cloudy; Color Urine Yellow; Glucose Urine UA Negative (Negative); Leukocyte Esterase Urine Trace (Negative); Nitrite Urine Negative (Negative); PH 5.5 (5.0-9.0); UMIC TRIGGER UACC YES; Urine Blood Small (1+) (Negative); Urine Ketones Negative (Negative); Urine Protein 300 (3+) mg/dL (Neg-Trace)
[2024-08-06 07:08] LABS: Glucose, Whole Blood 151 mg/dL (60-115)
[2024-08-06 07:17] LABS: Bacteria Urine 1+ (None Seen); WBC Urine 0-5 /HPF (0-5)
[2024-08-06 07:23] LABS: Glucose, Whole Blood 125 mg/dL (60-115)
[2024-08-06 07:41] LABS: Glucose, Whole Blood 116 mg/dL (60-115)
--- NOTE | 2024-08-06 08:27 | PHA.MEDREC ---
Pharmacy Consult ? Medication Reconciliation Pharmacy has completed the medication reconciliation. Spoke to patient with help from electric motor fitter services. She did not know her meds and stated no on will be home to tell us what she has. She filled them at [facility], used med list from there to confirm. Removed Prednisone, Omeprazole, and Lactulose as they either hadn't been filled in >3 months or had been prescribed for a short duration and were not refilled.
--- NOTE | 2024-08-06 09:06 | MHC.CM.PN ---
Met with patient with the help of the translator/interpreter in regards to discharge planning. Patient lives with her son, uses a rollator for mobility, is active with [facility] and has home oxygen. PCP verified. Copy of HCP verfied to be on file. Patient states she will need BLS transport when medically stable. Return referral made to [facility] so agency can follow. Continue to monitor for d/c needs.
[2024-08-06 09:47] LABS: Glucose, Whole Blood 101 mg/dL (60-115)
--- NOTE | 2024-08-06 10:35 | P.CNGI_ITS ---
History of Present Illness Data of Consult Service Date: 08/06/24 Requesting physician: Sherry Douglass Primary Care Provider: [facility] Reason for consult: Anemia This is a 52-year-old female past medical history of type 2 diabetes, chronic anemia, hyperlipidemia, chronic kidney disease, who presented to the hospital for abdominal pain, nausea and vomiting. Gastroenterology was consulted for report of hematemesis with drop in H&H noted on labs. Seen with the help of Alexandr bedolla. Patient reports onset of midepigastric pain 2 days ago associated with nausea. Reports small amount of blood mixed in the vomiting. Had multiple episodes over the last 2 days. No fevers or chills. No changes in bowel habits. No sick contacts. Has not had any episodes since coming to the hospital. On arrival to the ER, she was noted to have normal vitals. Labs were significant for drop in hemoglobin to 6.4 from a baseline of 7.5. She was also noted to have severe hypokalemia with potassium of 2.6 with this she also had intermittent hypoglycemia treated with IV dextrose. Currently reports no abdominal pain, nausea or vomiting. She in fact endorses hunger and would like to eat. Does not wish to proceed with endoscopic evaluation. She has received on either with PRBC transfusion. Has also received potassium overnight. As noted above has chronic anemia with iron deficiency based on most recent labs from July. Repeat iron levels pending from this admission. Recalls last colonoscopy was done many years ago but declines to have another one. Review of Systems 2 Review of Systems: Yes all other systems are reviewed and are negative PMFSH Past Medical History Medical History Pneumonia of both lungs due to infectious organism Heartburn Urinary incontinence Seborrheic dermatitis Forgetfulness Low serum cortisol level Nausea with vomiting Acute kidney injury Anxiety GERD (gastroesophageal reflux disease) Unstable gait Diabetic polyneuropathy associated with type 2 diabetes mellitus Other constipation Idiopathic hypotension Lower abdominal pain Leg weakness Tooth disorder Positive RPR test Noncompliance with treatment Metabolic encephalopathy Illiteracy and low-level literacy Glaucoma Chest pain Congestive heart failure Bilateral pleural effusion Anemia CHF (congestive heart failure) Urinary tract infection Hypertension Symptomatic anemia Brain lesion Iron deficiency anemia HLD (hyperlipidemia) Depression Type 2 diabetes mellitus Family History Family History Other Hypertension Social History Social History Household Members: Children Household Members Other:: Daughter Housing: Apartment Do you presently have visiting nurse or other home services: Yes Unable to assess alcohol history related to: Unable to respond Alcohol intake: former Patient Tobacco Use Status: Never used Tobacco e-Cigarette/Vaping Use: Never Used Second Hand Smoke Exposure: No Advance Directives: Yes Advance Directives on File: Yes Advance Directives Date on File: 06/19/21 Patient : No service: No Current occupational status: unemployed Meds Allergies Allergy/AdvReac Type Severity Reaction Status Date / Time shrimp Allergy Swelling Verified 08/05/24 19:36 Active Medications: Current Medications Acetaminophen (Acetaminophen 325 Mg Tablet) 650 mg PO Q6H PRN PRN Reason: Pain, Mild 1-3,fever,headache Calcium Carbonate (Calcium Carbonate 750 Mg Tab.Chew) 750 mg PO Q4H PRN PRN Reason: Heartburn Dextrose (Dextrose 50 % 25 Gm/50 Ml Syringe) 25 gm IVPUSH Q15M PRN; Protocol PRN Reason: per Hypoglycemia Standing Ord. Last Admin: 08/06/24 06:47 Dose: 25 gm Glucose (Glucose Gel 15 Gm Gel..Gram.) 15 gm PO Q15M PRN; Protocol PRN Reason: per Hypoglycemia Standing Ord. Insulin Human Lispro (Insulin Lispro 100 Unit/Ml 3 Ml Vial) 0 unit SUBCUT Q6H [facility]; Protocol Last Admin: 08/06/24 07:03 Dose: Not Given Magnesium Hydroxide (Milk Of Magnesia 30 Ml Oral.Susp) 30 ml PO DAILY PRN PRN Reason: Constipation Melatonin (Melatonin 3 Mg Tablet) 6 mg PO BEDTIME PRN PRN Reason: Insomnia Ondansetron HCl (Ondansetron Hcl 4 Mg/2 Ml Vial) 4 mg IVPUSH Q8H PRN PRN Reason: Nausea and Vomiting Pantoprazole Sodium (Pantoprazole Sodium 40 Mg/10 Ml Vial) 40 mg IVPUSH BID@0630,1630 [facility] Last Admin: 08/06/24 06:01 Dose: 40 mg Sodium Chloride (0.9 % Sodium Chloride Flush 3 Ml Syringe) 3 ml IVFLUSH QSHIFT [facility] Last Admin: 08/06/24 07:16 Dose: Not Given Home Medications ?Medication ?Instructions ?Recorded ?Confirmed ?Last Taken ?Type aspirin 81 mg tablet,delayed 1 tab PO DAILY 07/21/22 08/06/24 07/07/24 History release ferrous sulfate 324 mg (65 mg 324 mg PO DAILY 04/07/24 08/06/24 07/07/24 History iron) tablet,delayed release gabapentin 100 mg capsule 100 mg PO BEDTIME 05/31/24 08/06/24 07/06/24 History insulin glargine 100 unit/mL 10 unit subcut BEDTIME 07/07/24 08/06/24 Unknown History subcutaneous solution (Lantus U-100 Insulin) ondansetron HCl 4 mg tablet 4 - 8 mg PO Q8H PRN nausea/vomiting 07/07/24 08/06/24 Unknown History furosemide 40 mg tablet 40 mg PO DAILY 08/06/24 08/06/24 Unknown History metoprolol succinate 25 mg 25 mg PO DAILY 08/06/24 08/06/24 Unknown History tablet,extended release 24 hr Physical Exam 2 Vital Signs: Vital Signs: Last Vital Signs Temp 97.5 F 08/06/24 07:55 Pulse 66 08/06/24 07:55 Resp 16 08/06/24 07:55 BP 157/68 H 08/06/24 07:55 Pulse Ox 94 08/06/24 04:47 O2 Del Method Nasal Cannula 08/06/24 04:47 O2 Flow Rate 1 08/06/24 04:47 BMI result Body Mass Index 22.0 Appears older than stated age Nonicteric Abdomen soft, nondistended Alert and oriented x3 Chronic venous stasis changes bilateral lower extremities Results Labs 08/06/24 04:43 08/06/24 04:43 Labs: Short CBC 08/05/24 08/06/24 Range/Units 21:02 04:43 WBC 6.1 5.2 (4.8-10.8) X10*3/uL Hgb 7.7 L 6.4 L* (12.0-16.0) g/dl Hct 22.3 L 19.4 L* (37.0-47.0) % Plt Count 192 160 (160-400) X10*3/uL BMP 08/05/24 08/06/24 21:02 04:43 Sodium 140 141 Potassium 2.6 L* D 2.9 L* Chloride 109 H 111 H Carbon Dioxide 23 23 BUN 43 H 45 H Creatinine 3.39 H 3.21 H Calcium 8.4 7.9 L Liver Function 08/05/24 Range/Units 21:02 Total Bilirubin 0.2 (0.0-1.0) mg/dL Direct Bilirubin < 0.2 (0.0-0.5) mg/dL AST 27 (5-31) U/L ALT 38 H (0-31) U/L Alkaline Phosphatase 122 H (39-117) U/L Albumin 3.1 L (3.5-5.0) g/dL Urine 08/06/24 Range/Units 06:59 Urine Color Yellow Urine Appearance Cloudy Urine pH 5.5 (5.0-9.0) Ur Specific [place] 1.010 (1.005-1.025) Urine Protein 300 (3+) H (Neg-Trace) mg/dL Urine Glucose (UA) Negative (Negative) mg/dL Assessment and Plan (1) Hematemesis: Status: Acute (2) Acute on chronic anemia: Status: Resolved (3) Acute kidney injury superimposed on chronic kidney disease: Status: Acute (4) Iron deficiency: Status: Acute Plan Acute on chronic anemia likely the setting of small volume hematemesis reported by the patient 2 days ago. No further witnessed vomiting in the hospital. Chronic anemia, as well as this acute drop does warrant endoscopic evaluation. Ddx include PUD, esophagitis/gastritis, AVMs or GAVE melissa given CKD, large friable polyps, malignancy etc. However, patient adamant to not undergo any endoscopy including an EGD. Plan: - Ok to resume diet - Empiric PPI bid - can be switched to oral - Monitor CBC daily - Follow iron studies - If has low iron sat and total iron levels, would recommend iron infusion - If has recurrence of overt upper GI bleed, will need to re-discuss EGD Thank you for allowing me to participate in her care. Please do not hesitate to reach out for any questions or concerns. Procedures Date of Service Date of Service: 08/06/24
--- NOTE | 2024-08-06 10:58 | PC.NURSE ---
Report received at this time. Taken over care at this time.
[2024-08-06 11:30] LABS: Iron 25 mcg/dL (30-160); Percent Iron Saturation 16 % (15-50); Total Iron Binding Capacity 157 mcg/dL (228-428); Unsaturated Iron Binding 132 ug/dL
[2024-08-06 11:43] LABS: Ferritin 293 ng/mL (10-250)
[2024-08-06 12:50] LABS: Glucose, Whole Blood 74 mg/dL (60-115)
[2024-08-06 13:44] LABS: Hemoglobin 8.7 g/dl (12.0-16.0)
--- NOTE | 2024-08-06 14:16 | PC.NURSE ---
Wily called for pt.
--- NOTE | 2024-08-06 15:28 | PC.NURSE ---
Messaged MD Hernandez to see if she wants a repeat k+, since we previously discussed the results after ordered dose given.
--- NOTE | 2024-08-06 16:20 | PM.EVENT ---
Event Note Date of Service: 08/06/24 Event Note: seen and examined this morning follow up for episode of hematemesis/anemia no further bleeding since arrival in the emergency department history obtained with the assistance of a survey research associate This is a 54-year-old Faroese-speaking female with pertinent history of chronic combined systolic and diastolic congestive heart failure, chronic hypoxemic respiratory failure due to COPD on 2-3 L supplemental oxygen, hypertension, insulin-dependent diabetes mellitus, gastroesophageal reflux disease, mixed hyperlipidemia, CKD stage 3 who presents to the emergency department for evaluation of blood in vomitus. Acute GI bleed: no further bleeding H/ H improved after blood transfusion Seen by GI, has declined EGD repeat CBC in a.m. continue empiric PPI resume oral iron supplementation Acute kidney injury on CKD stage 3: hold diuretics for now Nephrology consult pending Follow BMP Acute hypokalemia: replaced,repeat level hold Lokelma Chronic combined systolic and diastolic congestive heart failure: Hold diuretics in the setting of DILLON. Resume as appropriate Chronic hypoxemic respiratory failure due to COPD: Continue baseline supplemental oxygen and home inhalers Insulin-dependent diabetes mellitus: SSI, POCs, ada diet DVT prophylaxis: Mechanical DNI. Discussed with patient at bedside with the help of survey research associate Admit as inpatient and will require two night minimum hospital stay for close monitoring of kidney function, H&H, hemodynamics, electrolytes (as above), which is not possible in a lesser acute setting. Gastroenterology consult pending Time Spent With Patient Time: Total time managing care of this patient today ____ minutes.
[2024-08-06 16:24] LABS: Glucose, Whole Blood 97 mg/dL (60-115)
[2024-08-06 17:26] LABS: Potassium 3.2 mmol/L (3.3-5.1)
[2024-08-06] MEDS: 0.9 % Sodium Chloride Flush 3 ML SYRINGE IVFLUSH ×2 (17:27→23:04)
--- NOTE | 2024-08-06 17:38 | PM.CNNEP ---
History of Present Illness Reason for Consult Consult date: 08/06/24 Reason for consult: DILLON Chief Complaint Chief complaint: Hematemesis History of Present Illness Narrative: 54-year-old with chronic combined systolic and diastolic congestive heart failure, hypertension, insulin-dependent diabetes mellitus, CKD stage 3 who presented to the emergency department for evaluation of blood in vomitus. she has been having nausea which began 1 day prior to presentation. Had an episode of emesis which contained dark blood. Only had 1 episode of hematemesis on the day of presentation. Denies loose stools, melena, hematochezia. No fever, chills, chest pain, palpitations, shortness of breath. Creatinine found to be elevated at 3.39. She was admitted for further management. Nephrology has been consulted to assist in her clinical care during her current hospital stay Review of Systems Review of Systems Yes all other systems are reviewed and are negative [facility] Past Medical History Medical History Pneumonia of both lungs due to infectious organism Heartburn Urinary incontinence Seborrheic dermatitis Forgetfulness Low serum cortisol level Nausea with vomiting Acute kidney injury Anxiety GERD (gastroesophageal reflux disease) Unstable gait Diabetic polyneuropathy associated with type 2 diabetes mellitus Other constipation Idiopathic hypotension Lower abdominal pain Leg weakness Tooth disorder Positive RPR test Noncompliance with treatment Metabolic encephalopathy Illiteracy and low-level literacy Glaucoma Chest pain Congestive heart failure Bilateral pleural effusion Anemia CHF (congestive heart failure) Urinary tract infection Hypertension Symptomatic anemia Brain lesion Iron deficiency anemia HLD (hyperlipidemia) Depression Type 2 diabetes mellitus Family History Family History Other Hypertension Social History Social History Household Members: Children Household Members Other:: Daughter Housing: Apartment Do you presently have visiting nurse or other home services: Yes Unable to assess alcohol history related to: Unable to respond Alcohol intake: former Patient Tobacco Use Status: Never used Tobacco e-Cigarette/Vaping Use: Never Used Second Hand Smoke Exposure: No Advance Directives: Yes Advance Directives on File: Yes Advance Directives Date on File: 06/19/21 Nutrition Risks: No Nutritional Risk Patient : No service: No Current occupational status: unemployed Meds Allergies Allergy/AdvReac Type Severity Reaction Status Date / Time shrimp Allergy Swelling Verified 08/05/24 19:36 Active Medications: Current Medications Acetaminophen (Acetaminophen 325 Mg Tablet) 650 mg PO Q6H PRN PRN Reason: Pain, Mild 1-3,fever,headache Calcium Carbonate (Calcium Carbonate 750 Mg Tab.Chew) 750 mg PO Q4H PRN PRN Reason: Heartburn Dextrose (Dextrose 50 % 25 Gm/50 Ml Syringe) 25 gm IVPUSH Q15M PRN; Protocol PRN Reason: per Hypoglycemia Standing Ord. Last Admin: 08/06/24 06:47 Dose: 25 gm Gabapentin (Gabapentin 100 Mg Capsule) 100 mg PO BEDTIME [facility] Glucose (Glucose Gel 15 Gm Gel..Gram.) 15 gm PO Q15M PRN; Protocol PRN Reason: per Hypoglycemia Standing Ord. Insulin Human Lispro (Insulin Lispro 100 Unit/Ml 3 Ml Vial) 0 unit SUBCUT QIDACHS [facility]; Protocol Magnesium Hydroxide (Milk Of Magnesia 30 Ml Oral.Susp) 30 ml PO DAILY PRN PRN Reason: Constipation Melatonin (Melatonin 3 Mg Tablet) 6 mg PO BEDTIME PRN PRN Reason: Insomnia Metoprolol Succinate (Metoprolol Succinate Er 25 Mg Tab.Er.24h) 25 mg PO DAILY [facility]; Protocol Ondansetron HCl (Ondansetron Hcl 4 Mg/2 Ml Vial) 4 mg IVPUSH Q8H PRN PRN Reason: Nausea and Vomiting Pantoprazole Sodium (Pantoprazole Sodium 40 Mg/10 Ml Vial) 40 mg IVPUSH BID@0630,1630 [facility] Last Admin: 08/06/24 17:27 Dose: 40 mg Sodium Chloride (0.9 % Sodium Chloride Flush 3 Ml Syringe) [facility] Last Admin: 08/06/24 17:27 Dose: 3 ml Home Medications ?Medication ?Instructions ?Recorded ?Confirmed ?Last Taken ?Type aspirin 81 mg tablet,delayed 1 tab PO DAILY 07/21/22 08/06/24 07/07/24 History release ferrous sulfate 324 mg (65 mg 324 mg PO DAILY 04/07/24 08/06/24 07/07/24 History iron) tablet,delayed release gabapentin 100 mg capsule 100 mg PO BEDTIME 05/31/24 08/06/24 07/06/24 History insulin glargine 100 unit/mL 10 unit subcut BEDTIME 07/07/24 08/06/24 Unknown History subcutaneous solution (Lantus U-100 Insulin) ondansetron HCl 4 mg tablet 4 - 8 mg PO Q8H PRN nausea/vomiting 07/07/24 08/06/24 Unknown History furosemide 40 mg tablet 40 mg PO DAILY 08/06/24 08/06/24 Unknown History metoprolol succinate 25 mg 25 mg PO DAILY 08/06/24 08/06/24 Unknown History tablet,extended release 24 hr Physical Exam Vital Signs: Last Vital Signs Temp 98.4 F 08/06/24 16:24 Pulse 77 08/06/24 16:24 Resp 20 08/06/24 16:24 BP 154/64 H 08/06/24 16:24 Pulse Ox 94 08/06/24 16:24 O2 Del Method Nasal Cannula 08/06/24 16:24 O2 Flow Rate 3 08/06/24 16:24 BMI result Body Mass Index 22.0 Const General: no acute distress Orientation/consciousness: patient oriented x3 Eyes EOM: EOMs intact bilaterally Resp Auscultation: diminished lung sounds Cardio Rate: regular rate GI Palpation (GI): Soft to palpation Neuro General: patient oriented x3 and moves all extremities Results Lab Results 08/06/24 13:26 08/06/24 17:11 Lab results: Chemistry 08/05/24 08/06/24 08/06/24 21:02 04:43 17:11 Sodium 140 141 Potassium 2.6 L* D 2.9 L* 3.2 L Carbon Dioxide 23 23 BUN 43 H 45 H Creatinine 3.39 H 3.21 H Calcium 8.4 7.9 L Hematology 08/05/24 08/06/24 08/06/24 21:02 04:43 13:26 WBC 6.1 5.2 Hgb 7.7 L 6.4 L* 8.7 L D Plt Count 192 160 Urinalysis 08/06/24 06:59 Urine Color Yellow Urine Appearance Cloudy Urine pH 5.5 Ur Specific [place] 1.010 Urine Protein 300 (3+) H Urine Glucose (UA) Negative Urine Ketones Negative Urine Blood Small (1+) H Urine Nitrite Negative Ur Leukocyte Esterase Trace H Urine RBC 3-5 H Urine WBC 0-5 Ur Squamous Epith Cells 6-10 Hyaline Casts 3-5 Assessment and Plan (1) Acute kidney injury superimposed on chronic kidney disease: Status: Acute Plan DILLON due to tubular injury due to tubular injury Was given fluid with K replacement with mild improvement Hypervolemic. Will need to initiate diuresis when stable No reason to suspect GN/AIN. UO OK C/W rest of current supportive management for now Procedures Date of Service Date of Service: 08/06/24
--- NOTE | 2024-08-06 19:15 | PC.NURSE ---
Informed MD Evans of pt's repeat K+and results of 3.2. No new orders.
[2024-08-06 20:46] LABS: Glucose, Whole Blood 124 mg/dL (60-115)
[2024-08-06] MEDS: ondansetron HCL 4 MG/2 ML VIAL IVPUSH (21:18)
[2024-08-06] MEDS: Gabapentin 100 MG CAPSULE PO (21:18)
--- NOTE | 2024-08-06 22:48 | PC.NURSE ---
Report given to JG Rojas.
[2024-08-07] VITALS (9 sets, daily range): BP systolic 154–195; BP diastolic 63–85; PULSE 80–91; RESP 16–20; TEMP 36.3–37.6; O2SAT 92–95; BMI 22.6
--- NOTE | 2024-08-07 03:19 | PC.NURSE ---
Patient denies abdominal pain, nausea, vomiting. Patient reports she has spat large amount of saliva with scant amount of blood, no further bleeding noted. Dr. Douglass notified.
--- NOTE | 2024-08-07 03:45 | PC.NURSE ---
Patient transferred into a hospital bed for comfort, purewick applied to manage urinary incontinence, patient reports no immediate concerns at this time, call sampson in patient's reach, plan of care ongoing.
[2024-08-07] MEDS: Calcium Carbonate 750 MG TAB.CHEW PO (04:36)
--- NOTE | 2024-08-07 04:58 | PC.NURSE ---
Patient medicated per MAR for heartburn and diffuse abdominal discomfort.
--- NOTE | 2024-08-07 05:06 | MHC.EDTECH ---
late entry: this tech assumed care of this pt at [id number]
[2024-08-07] MEDS: ondansetron HCL 4 MG/2 ML VIAL IVPUSH ×2 (05:26→13:30)
--- NOTE | 2024-08-07 05:35 | PC.NURSE ---
Patient complaints of feeling nauseous, no vomiting, patient medicated with Zofran 4 mg IV. Per patient abdominal pain resolved.
[2024-08-07] MEDS: Pantoprazole Sodium 40 MG/10 ML VIAL IVPUSH ×2 (05:46→16:56)
--- NOTE | 2024-08-07 07:16 | ECG_ITS ---
Test Reason : chest pain Blood Pressure : */* mmHG Vent. Rate : 90 BPM Atrial Rate : 90 BPM P-R Int : 140 ms QRS Dur : 74 ms QT Int : 384 ms P-R-T Axes : 37 14 29 degrees QTcB Int : 469 ms Normal sinus rhythm Anterior infarct (cited on or before 07-Jul-2024) Abnormal ECG When compared with ECG of 05-Aug-2024 21:04, No significant change was found Referred By: Sherry Douglass Electronically Signed By: SHANTI AVENDANO
[2024-08-07] MEDS: Milk of Magnesia 30 ML ORAL.SUSP PO (07:28)
[2024-08-07 07:29] LABS: Glucose, Whole Blood 101 mg/dL (60-115)
[2024-08-07] MEDS: Acetaminophen 325 MG TABLET 650 MG PO ×2 (07:31→21:39)
[2024-08-07] MEDS: 0.9 % Sodium Chloride Flush 3 ML SYRINGE IVFLUSH ×2 (07:39→16:56)
--- NOTE | 2024-08-07 07:41 | PC.NURSE ---
ASSUMED CARE OF THIS PT, WHO BECAME SUDDENLY TEARFUL THIS AM C/O R SIDED CP RADIATING TO EPIGASTRIC AREA, DESCRIBED A BURNING PAIN. pT MORE COMFORTABLE SITTING UPRIGHT. EKG REPEATED FOR PRECAUTION. GIVEN MAALOX. PIV IN LFA NO LONGER PATENT, REMOVED. BP ELEVATED, PT STILL CRYING. UPDATE GIVEN TO FLOOR RN.
[2024-08-07] MEDS: Metoprolol Succinate ER 25 MG TAB.ER.24H PO (08:39)
[2024-08-07 10:26] LABS: Hematocrit 27.2 % (37.0-47.0); Mean Corpuscular HGB Conc 33.1 g/dl (31.0-35.0); Mean Corpuscular Hemoglobin 29.5 pg (27.0-33.0); Mean Corpuscular Volume 89.2 fL (80.0-98.0); Mean Platelet Volume 8.1 fL (9.4-12.3); Platelet Count 161 X10*3/uL (160-400); Red Blood Count 3.05 X10*6/uL (4.20-5.50); Red Cell Distribution Width 14.6 % (11.0-16.0)
[2024-08-07 10:40] LABS: Anion Gap 11 (12-20); Blood Urea Nitrogen 44 mg/dL (9-16); Calcium 8.4 mg/dL (8.4-10.2); Carbon Dioxide 24 mmol/L (22-29); Chloride 110 mmol/L (96-108); Creatinine Clr Calc Pharmacy 20.1; Estimated Glomerular Filt Rate 15; Glucose Random 134 mg/dL (60-115); Potassium 3.6 mmol/L (3.3-5.1); Sodium 141 mmol/L (135-145)
[2024-08-07 11:46] LABS: Glucose, Whole Blood 118 mg/dL (60-115)
--- NOTE | 2024-08-07 13:16 | P.PNNP_ITS ---
Subjective Subjective Date of Service: 08/07/24 Interval history: Events noted. All recent data reviewed. D/W Hospitalist Physical Exam 2 Vital Signs: Vital Signs: Last Vital Signs Temp 97.8 F 08/07/24 11:19 Pulse 80 08/07/24 11:19 Resp 17 08/07/24 11:19 BP 154/74 H 08/07/24 11:19 Pulse Ox 92 08/07/24 11:19 O2 Del Method Nasal Cannula 08/07/24 11:19 O2 Flow Rate 2 08/07/24 11:19 BMI result Body Mass Index 22.0 Const: General: no acute distress Orientation/consciousness: patient oriented x3 Eyes: EOM: EOMs intact bilaterally Resp: Auscultation: diminished lung sounds Cardio: Rate: regular rate GI: Palpation (GI): Soft to palpation Neuro: General: patient oriented x3 Objective Data Labs 08/07/24 09:51 08/07/24 09:51 Labs: Laboratory Results - last 24 hr 08/06/24 08/06/24 08/06/24 13:26 16:20 17:11 WBC RBC Hgb 8.7 L D Hct 26.0 L D MCV MCH MCHC RDW Plt Count MPV Absolute Nucleated RBC Nucleated RBC % (auto) Sodium Potassium 3.2 L Chloride Carbon Dioxide Anion Gap BUN Creatinine Estim Creat Clear Calc Estimated GFR POC Glucose 97 Random Glucose Calcium Troponin I High Sens 08/06/24 08/07/24 08/07/24 20:42 07:26 09:51 WBC 8.0 RBC 3.05 L D Hgb 9.0 L Hct 27.2 L MCV 89.2 MCH 29.5 MCHC 33.1 RDW 14.6 Plt Count 161 MPV 8.1 L Absolute Nucleated RBC 0.000 Nucleated RBC % (auto) 0.0 Sodium 141 Potassium 3.6 Chloride 110 H Carbon Dioxide 24 Anion Gap 11 L BUN 44 H Creatinine 3.18 H Estim Creat Clear Calc 20.1 Estimated GFR 15 POC Glucose 124 H 101 Random Glucose 134 H Calcium 8.4 D Troponin I High Sens 08/07/24 08/07/24 10:11 11:24 WBC RBC Hgb Hct MCV MCH MCHC RDW Plt Count MPV Absolute Nucleated RBC Nucleated RBC % (auto) Sodium Potassium Chloride Carbon Dioxide Anion Gap BUN Creatinine Estim Creat Clear Calc Estimated GFR POC Glucose 118 H Random Glucose Calcium Troponin I High Sens 21.0 H Procedures Date of Service Date of Service: 08/07/24 Assessment & Plan Assessment and plan (1) Acute kidney injury superimposed on chronic kidney disease: Status: Acute Plan DILLON due to tubular injury; Renal functions stable Hypervolemic. Shall start lasix drip @ 5 mg/hour No reason to suspect GN/AIN. UO OK; No indication for HD yet C/W rest of current supportive management for now Progress Note: Quality Stroke Does the patient have a stroke diagnosis?: No
--- NOTE | 2024-08-07 13:36 | MHC.CM.PN ---
Per rounds, pt is not ready to DC, she still requires acute care, CM to follow for DC needs.
[2024-08-07] MEDS: Morphine Sulfate 2 MG/ML CARTRIDGE IVPUSH (14:33)
[2024-08-07] MEDS: Furosemide 200 MG in 0.9 % Sodium Chloride 80 ML IVCONT (15:56)
--- NOTE | 2024-08-07 16:12 | P.PNIM_ITS ---
Subjective Subjective Date of Service: 08/07/24 Interval History: seen and examined this morning Follow-up for episode of hematemesis History obtained with the assistance of a lime trimmer Patient reporting right side burning chest discomfort with inspiration and palpation. Reports pain has been present since yesterday. Review of Systems Review of Systems: Yes all other systems are reviewed and are negative Constitutional Constitutional: Denies chills and Denies fever(s) Physical Exam 2 Vital Signs: Vital Signs: Last Vital Signs Temp 98.4 F 08/07/24 16:00 Pulse 83 08/07/24 16:00 Resp 18 08/07/24 16:00 BP 176/73 H 08/07/24 16:00 Pulse Ox 94 08/07/24 16:00 O2 Del Method Nasal Cannula 08/07/24 16:00 O2 Flow Rate 2 08/07/24 16:00 BMI result Body Mass Index 22.6 Const: General: alert and awake Nutritional Appearance: average body habitus Resp: Other: diminished b/l Effort & Inspection: normal respiratory effort, able to speak in complete sentences, no respiratory distress and no use of accessory muscles Cardio: Rate: regular rate GI: Inspection: No distended Palpation (GI): Soft to palpation Neuro: Other: grossly nonfocal, moves all extremities spontaneously Objective Data Active Medications Acetaminophen (Acetaminophen 325 Mg Tablet) 650 mg PO Q6H PRN PRN Reason: Pain, Mild 1-3,fever,headache Last Admin: 08/07/24 07:31 Dose: 650 mg Documented By: LIA Calcium Carbonate (Calcium Carbonate 750 Mg Tab.Chew) 750 mg PO Q4H PRN PRN Reason: Heartburn Last Admin: 08/07/24 04:36 Dose: 750 mg Documented By: SYBIL Dextrose (Dextrose 50 % 25 Gm/50 Ml Syringe) 25 gm IVPUSH Q15M PRN; Protocol PRN Reason: per Hypoglycemia Standing Ord. Last Admin: 08/06/24 06:47 Dose: 25 gm Documented By: CARY Gabapentin (Gabapentin 100 Mg Capsule) 100 mg PO BEDTIME [facility] Last Admin: 08/06/24 21:18 Dose: 100 mg Documented By: KATELYN Glucose (Glucose Gel 15 Gm Gel..Gram.) 15 gm PO Q15M PRN; Protocol PRN Reason: per Hypoglycemia Standing Ord. Furosemide 200 mg/ Sodium (Chloride) 100 mls @ 2.5 mls/hr IVCONT .Q24H [facility] Last Admin: 08/07/24 15:56 Dose: 5 mg/hr, 2.5 mls/hr Documented By: TARUN Insulin Human Lispro (Insulin Lispro 100 Unit/Ml 3 Ml Vial) 0 unit SUBCUT QIDACHS [facility]; Protocol Last Admin: 08/07/24 11:50 Dose: Not Given Documented By: TARUN Non-Admin Reason: No Insulin Coverage Magnesium Hydroxide (Milk Of Magnesia 30 Ml Oral.Susp) 30 ml PO DAILY PRN PRN Reason: Constipation Last Admin: 08/07/24 07:28 Dose: 30 ml Documented By: LIA Melatonin (Melatonin 3 Mg Tablet) 6 mg PO BEDTIME PRN PRN Reason: Insomnia Metoprolol Succinate (Metoprolol Succinate Er 25 Mg Tab.Er.24h) 25 mg PO DAILY [facility]; Protocol Last Admin: 08/07/24 08:39 Dose: 25 mg Documented By: TARUN Ondansetron HCl (Ondansetron Hcl 4 Mg/2 Ml Vial) 4 mg IVPUSH Q8H PRN PRN Reason: Nausea and Vomiting Last Admin: 08/07/24 13:30 Dose: 4 mg Documented By: TARUN Pantoprazole Sodium (Pantoprazole Sodium 40 Mg/10 Ml Vial) 40 mg IVPUSH BID@0630,1630 [facility] Last Admin: 08/07/24 05:46 Dose: 40 mg Documented By: SYBIL Sodium Chloride (0.9 % Sodium Chloride Flush 3 Ml Syringe) 3 ml IVFLUSH QSHIFT [facility] Last Admin: 08/07/24 07:39 Dose: 3 ml Documented By: LIA Labs 08/07/24 09:51 08/07/24 09:51 Labs: Laboratory Results - last 24 hr 08/06/24 08/06/24 08/07/24 16:20 20:42 07:26 MCV MCH MCHC RDW Plt Count MPV Absolute Nucleated RBC Nucleated RBC % (auto) Anion Gap Estim Creat Clear Calc Estimated GFR POC Glucose 97 124 H 101 Random Glucose Calcium 08/07/24 08/07/24 09:51 11:24 MCV 89.2 MCH 29.5 MCHC 33.1 RDW 14.6 Plt Count 161 MPV 8.1 L Absolute Nucleated RBC 0.000 Nucleated RBC % (auto) 0.0 Anion Gap 11 L Estim Creat Clear Calc 20.1 Estimated GFR 15 POC Glucose 118 H Random Glucose 134 H Calcium 8.4 D Assessment and Plan (1) Acute hypokalemia: Status: Acute (2) Acute kidney injury superimposed on chronic kidney disease: Status: Acute (3) Acute exacerbation of CHF (congestive heart failure): Status: Acute Plan This is a 54-year-old [place]an-speaking female with pertinent history of chronic combined systolic and diastolic congestive heart failure, chronic hypoxemic respiratory failure due to COPD on 2-3 L supplemental oxygen, hypertension, insulin-dependent diabetes mellitus, gastroesophageal reflux disease, mixed hyperlipidemia, CKD stage 3 who presents to the emergency department for evaluation of blood in vomitus. Acute GI bleed: episode of hemetemesis x1, no further bleeding H/H improved after blood transfusion Seen by GI, has declined EGD continue empiric PPI resume oral iron supplementation vomiting had episode of vomiting this afternoon, nonbloody back off on diet to clear liquids IV ppi, antiemetics abdominal exam benign but initial imaging with possible ileus if vomiting continues will get KUB Acute kidney injury on CKD stage 3: due to tubular injury, seen by nephrology plan to start lasix drip Follow BMP Acute hypokalemia: replaced and improved hold Lokelma for now Chronic combined systolic and diastolic congestive heart failure: overall volume overloaded imaging with anasarca, pleural effusions d/w nephrology, start lasix drip monitor Is&Os cardiology consult pending Chronic hypoxemic respiratory failure due to COPD: Continue baseline supplemental oxygen and home inhalers Insulin-dependent diabetes mellitus: lantus on hold for hypoglycemia, normal POCs; when diet advance can consider resuming SSI, POCs HTN continue norvasc, metoprolol DVT prophylaxis: Mechanical DNI Requires ongoing inpatient stay for close monitoring of kidney function, H&H, hemodynamics, electrolytes (as above), which is not possible in a lesser acute setting. Gastroenterology consult pending Quality Stroke Does the patient have a stroke diagnosis?: No VTE Prior VTE?: No VTE Risk Level:: Medical - moderate - high VTE Device Contraindication: N/A - Device Ordered VTE Drug Contraindication: Treatment Not Indicated
[2024-08-07 16:45] LABS: Glucose, Whole Blood 121 mg/dL (60-115)
[2024-08-07] MEDS: Metoclopramide HCl 10 MG/2 ML VIAL 5 MG IVPUSH (16:56)
[2024-08-07] MEDS: Gabapentin 100 MG CAPSULE PO (20:18)
[2024-08-07 20:58] LABS: Glucose, Whole Blood 187 mg/dL (60-115)
[2024-08-07] MEDS: Insulin Lispro 100 UNIT/ML 3 ML VIAL SUBCUT (21:37)
[2024-08-08] VITALS (7 sets, daily range): BP systolic 129–173; BP diastolic 60–77; PULSE 74–85; RESP 17–18; TEMP 37–37.7; O2SAT 75–94
[2024-08-08] MEDS: Calcium Carbonate 750 MG TAB.CHEW PO (01:29)
[2024-08-08] MEDS: ondansetron HCL 4 MG/2 ML VIAL IVPUSH (03:55)
--- NOTE | 2024-08-08 04:10 | PC.NURSE ---
Patient reported 9/10 abdominal pain at 01:36. Patient reports last bowel movement being 08/05/2024 with hypoactive bowel sounds throughout. MD notifed, ordered to have bowel rest. Approximately at 04:00 patient reported nausea and vomited small amounts of saliva. Zofran administered with good effect. MD notified no further orders placed.
[2024-08-08] MEDS: Pantoprazole Sodium 40 MG/10 ML VIAL IVPUSH ×2 (05:11→16:49)
[2024-08-08 07:54] LABS: Hematocrit 25.4 % (37.0-47.0); Hemoglobin 8.6 g/dl (12.0-16.0); Mean Corpuscular HGB Conc 33.9 g/dl (31.0-35.0); Mean Corpuscular Hemoglobin 30.1 pg (27.0-33.0); Mean Corpuscular Volume 88.8 fL (80.0-98.0); Mean Platelet Volume 8.4 fL (9.4-12.3); Platelet Count 147 X10*3/uL (160-400); Red Blood Count 2.86 X10*6/uL (4.20-5.50); Red Cell Distribution Width 15.1 % (11.0-16.0); White Blood Count 7.4 X10*3/uL (4.8-10.8)
[2024-08-08 08:01] LABS: Glucose, Whole Blood 113 mg/dL (60-115)
[2024-08-08 08:10] LABS: Anion Gap 12 (12-20); Blood Urea Nitrogen 44 mg/dL (9-16); Calcium 8.6 mg/dL (8.4-10.2); Carbon Dioxide 24 mmol/L (22-29); Chloride 107 mmol/L (96-108); Creatinine Clr Calc Pharmacy 20.1; Estimated Glomerular Filt Rate 15; Glucose Random 117 mg/dL (60-115); Potassium 3.8 mmol/L (3.3-5.1); Sodium 139 mmol/L (135-145)
--- NOTE | 2024-08-08 09:17 | P.CONCA_ITS ---
History of Present Illness History of Present Illness Date of Service: 08/08/24 Chief complaint: Hematemesis Narrative: This is a cardiology consultation regarding congestive heart failure. Patient with many comorbidities including congestive heart failure, COPD on oxygen, hypertension, diabetes, chronic kidney disease presenting to the hospital with complaints of blood in the vomitus. She was admitted initially as GI bleed but also noted to have volume overload and hence she has been put on diuretic drip. In this context, we are asked to see her. She is not having any active complaints like shortness of breath or clear-cut angina. Complaints of some burning sensation in his stomach. Very tearful during conversation and states everything in the body hurts. Review of Systems 2 Review of Systems: Yes all other systems are reviewed and are negative Constitutional: Constitutional: Reports as per HPI and Reports no additional constitutional complaints Eyes: Eyes: Reports as per HPI and Denies no additional eye complaints ENT: Denies system reviewed and no additional complaints, except as documented and Reports as per HPI Cardiovascular: Cardiovascular: Reports as per HPI, Reports no additional cardiovascular complaints, Denies acrocyanosis, Denies cool extremities, Denies chest pain, Denies leg edema, Denies lightheadedness, Denies palpitations and Denies dyspnea Respiratory: Respiratory: Reports as per HPI, Denies no additional respiratory complaints and Denies dyspnea Gastrointestinal: Gastrointestinal: Reports as per HPI, Denies no additional gastrointestinal complaints and Reports abdominal pain Genitourinary: Genitourinary: Reports as per HPI Musculoskeletal: Musculoskeletal: Reports no additional musculoskeletal complaints and Reports as per HPI Integumentary/Breasts: Skin/Breast: Reports system reviewed and no additional complaints, except as docu Neurologic: Reports system reviewed and no additional complaints, except as documented and Reports as per HPI Psychiatric: Psychiatric: Reports no additional psychiatric complaints and Reports as per HPI Endocrine: Endocrine: Reports no additional endocrine complaints, Reports as per HPI and Denies palpitations Hematologic/Lymphatic: Hematologic/Lymphatic: Reports no additional hematologic/lymphatic complaints and Reports as per HPI Allergic/Immunologic: Allergic/Immunologic: Reports no additional allergic/immunologic complaints and Reports as per HPI PMF Past Medical History Medical History Pneumonia of both lungs due to infectious organism Heartburn Urinary incontinence Seborrheic dermatitis Forgetfulness Low serum cortisol level Nausea with vomiting Acute kidney injury Anxiety GERD (gastroesophageal reflux disease) Unstable gait Diabetic polyneuropathy associated with type 2 diabetes mellitus Other constipation Idiopathic hypotension Lower abdominal pain Leg weakness Tooth disorder Positive RPR test Noncompliance with treatment Metabolic encephalopathy Illiteracy and low-level literacy Glaucoma Chest pain Congestive heart failure Bilateral pleural effusion Anemia CHF (congestive heart failure) Urinary tract infection Hypertension Symptomatic anemia Brain lesion Iron deficiency anemia HLD (hyperlipidemia) Depression Type 2 diabetes mellitus Family History Family History Other Hypertension Social History Social History Household Members: Children Household Members Other:: Daughter Housing: Apartment Do you presently have visiting nurse or other home services: Yes Unable to assess alcohol history related to: Unable to respond Alcohol intake: former Patient Tobacco Use Status: Never used Tobacco e-Cigarette/Vaping Use: Never Used Second Hand Smoke Exposure: No Advance Directives Date on File: 06/19/21 service: No Current occupational status: unemployed Meds Allergies Allergy/AdvReac Type Severity Reaction Status Date / Time shrimp Allergy Swelling Verified 08/05/24 19:36 Active Medications: Current Medications Acetaminophen (Acetaminophen 325 Mg Tablet) 650 mg PO Q6H PRN PRN Reason: Pain, Mild 1-3,fever,headache Last Admin: 08/07/24 21:39 Dose: 650 mg Albuterol/Ipratropium (Albuterol/Iprat 2.5/0.5mg 3 Ml Ampul.Neb) 3 ml INHALE RQ6H WHILE AWAKE PRN PRN Reason: Shortness of Breath/Wheezing Amlodipine Besylate (Amlodipine Besylate 10 Mg Tablet) 10 mg PO DAILY JM; Protocol Calcium Carbonate (Calcium Carbonate 750 Mg Tab.Chew) 750 mg PO Q4H PRN PRN Reason: Heartburn Last Admin: 08/08/24 01:29 Dose: 750 mg Dextrose (Dextrose 50 % 25 Gm/50 Ml Syringe) 25 gm IVPUSH Q15M PRN; Protocol PRN Reason: per Hypoglycemia Standing Ord. Last Admin: 08/06/24 06:47 Dose: 25 gm Ferrous Sulfate (Ferrous Sulfate 324 Mg Tablet.Dr) 324 mg PO DAILY JM Gabapentin (Gabapentin 100 Mg Capsule) 100 mg PO BEDTIME JM Last Admin: 08/07/24 20:18 Dose: 100 mg Glucose (Glucose Gel 15 Gm Gel..Gram.) 15 gm PO Q15M PRN; Protocol PRN Reason: per Hypoglycemia Standing Ord. Furosemide 200 mg/ Sodium (Chloride) 100 mls @ 2.5 mls/hr IVCONT .Q24H [facility] Last Admin: 08/07/24 15:56 Dose: 5 mg/hr, 2.5 mls/hr Insulin Human Lispro (Insulin Lispro 100 Unit/Ml 3 Ml Vial) 0 unit SUBCUT QIDACHS [facility]; Protocol Last Admin: 08/07/24 21:37 Dose: 2 unit Magnesium Hydroxide (Milk Of Magnesia 30 Ml Oral.Susp) 30 ml PO DAILY PRN PRN Reason: Constipation Last Admin: 08/07/24 07:28 Dose: 30 ml Melatonin (Melatonin 3 Mg Tablet) 6 mg PO BEDTIME PRN PRN Reason: Insomnia Metoprolol Succinate (Metoprolol Succinate Er 25 Mg Tab.Er.24h) 25 mg PO DAILY [facility]; Protocol Last Admin: 08/07/24 08:39 Dose: 25 mg Ondansetron HCl (Ondansetron Hcl 4 Mg/2 Ml Vial) 4 mg IVPUSH Q8H PRN PRN Reason: Nausea and Vomiting Last Admin: 08/08/24 03:55 Dose: 4 mg Pantoprazole Sodium (Pantoprazole Sodium 40 Mg/10 Ml Vial) 40 mg IVPUSH BID@0630,1630 [facility] Last Admin: 08/08/24 05:11 Dose: 40 mg Sodium Chloride (0.9 % Sodium Chloride Flush 3 Ml Syringe) 3 ml IVFLUSH QSHIFT [facility] Last Admin: 08/08/24 00:21 Dose: Not Given Home Medications ?Medication ?Instructions ?Recorded ?Confirmed ?Last Taken ?Type aspirin 81 mg tablet,delayed 1 tab PO DAILY 07/21/22 08/06/24 07/07/24 History release ferrous sulfate 324 mg (65 mg 324 mg PO DAILY 04/07/24 08/06/24 07/07/24 History iron) tablet,delayed release gabapentin 100 mg capsule 100 mg PO BEDTIME 05/31/24 08/06/24 07/06/24 History insulin glargine 100 unit/mL 10 unit subcut BEDTIME 07/07/24 08/06/24 Unknown History subcutaneous solution (Lantus U-100 Insulin) ondansetron HCl 4 mg tablet 4 - 8 mg PO Q8H PRN nausea/vomiting 07/07/24 08/06/24 Unknown History furosemide 40 mg tablet 40 mg PO DAILY 08/06/24 08/06/24 Unknown History metoprolol succinate 25 mg 25 mg PO DAILY 08/06/24 08/06/24 Unknown History tablet,extended release 24 hr Physical Exam 2 Vital Signs: Vital Signs: Last Vital Signs Temp 98.9 F 08/08/24 08:00 Pulse 85 08/08/24 08:00 Resp 18 08/08/24 08:00 BP 170/73 H 08/08/24 08:00 Pulse Ox 91 L 08/08/24 08:00 O2 Del Method Room Air 08/08/24 08:00 O2 Flow Rate 2 08/08/24 04:00 BMI result Body Mass Index 22.6 Const: Other: Tearful Orientation/consciousness: patient oriented x3 HEENT: Other: Unremarkable Head: Yes normal to inspection Neck: Neck: Yes normal visual inspection Chest: Chest palpation & inspection: normal inspection of the chest Resp: Auscultation: clear to auscultation bilaterally Cardio: Palpation: normal PMI Heart sounds: S1 normal heart sound present, S2 normal heart sound present, no gallops, no murmurs and no rubs GI: Palpation (GI): Soft to palpation Back/Spine/Pelvis: Other: unremarkable Skin: General skin exam: no rashes or lesions noted Neuro: General: patient oriented x3 Extrem: Other: 1-2+ pitting edema legs General: Yes normal to inspection Psych: Mental Status: mental status grossly normal Objective Labs and Meds 08/08/24 07:14 08/08/24 07:14 Lab results: Laboratory Results - last 24 hr 08/07/24 08/07/24 08/07/24 09:51 10:11 11:24 WBC 8.0 RBC 3.05 L D Hgb 9.0 L Hct 27.2 L MCV 89.2 MCH 29.5 MCHC 33.1 RDW 14.6 Plt Count 161 MPV 8.1 L Absolute Nucleated RBC 0.000 Nucleated RBC % (auto) 0.0 Sodium 141 Potassium 3.6 Chloride 110 H Carbon Dioxide 24 Anion Gap 11 L BUN 44 H Creatinine 3.18 H Estim Creat Clear Calc 20.1 Estimated GFR 15 POC Glucose 118 H Random Glucose 134 H Calcium 8.4 D Troponin I High Sens 21.0 H 08/07/24 08/07/24 08/08/24 16:28 20:40 07:14 WBC 7.4 RBC 2.86 L Hgb 8.6 L Hct 25.4 L MCV 88.8 MCH 30.1 MCHC 33.9 RDW 15.1 Plt Count 147 L MPV 8.4 L Absolute Nucleated RBC 0.000 Nucleated RBC % (auto) 0.0 Sodium 139 Potassium 3.8 Chloride 107 Carbon Dioxide 24 Anion Gap 12 BUN 44 H Creatinine 3.18 H Estim Creat Clear Calc 20.1 Estimated GFR 15 POC Glucose 121 H 187 H Random Glucose 117 H Calcium 8.6 Troponin I High Sens 08/08/24 07:52 WBC RBC Hgb Hct MCV MCH MCHC RDW Plt Count MPV Absolute Nucleated RBC Nucleated RBC % (auto) Sodium Potassium Chloride Carbon Dioxide Anion Gap BUN Creatinine Estim Creat Clear Calc Estimated GFR POC Glucose 113 Random Glucose Calcium Troponin I High Sens ECG Interpretation: EKG with underlying sinus rhythm at 90/Min; cannot exclude old anterior infarct; normal VT and corrected QT. Assessment and Plan (1) Acute on chronic diastolic (congestive) heart failure: Status: Acute (2) Chronic kidney disease: Status: Acute Plan In the echocardiogram, LVEF is 45-50% with elevated filling pressures. Creatinine is around 3.2, slightly higher than before. BUN is 44. Urinalysis positive for proteinuria. Abdomen/pelvis CT shows anasarca/diffuse volume overload, large pleural effusions. On clinical exam, she does appear volume overloaded. On Lasix drip. Input output probably not recorded correctly as it shows positive 2 L. May continue the Lasix drip for now. Less likely the volume overload is of primary cardiac etiology. However, the mild LV dysfunction is not helping either. Blood pressure is also quite high. That may also be volume dependent. Consider adding another agent like hydralazine. Discussed with Zuri Evans. Procedures Date of Service Date of Service: 08/08/24
[2024-08-08] MEDS: Acetaminophen 325 MG TABLET 650 MG PO ×2 (09:53→23:47)
[2024-08-08] MEDS: Ferrous Sulfate 324 MG TABLET.DR PO (09:54)
[2024-08-08] MEDS: Metoprolol Succinate ER 25 MG TAB.ER.24H PO (09:54)
[2024-08-08] MEDS: hydrALAZINE HCl 25 MG TABLET PO (09:54)
[2024-08-08] MEDS: amLODIPine Besylate 10 MG TABLET PO (09:54)
[2024-08-08 11:09] LABS: Glucose, Whole Blood 163 mg/dL (60-115)
[2024-08-08] MEDS: Insulin Lispro 100 UNIT/ML 3 ML VIAL SUBCUT ×2 (12:35→21:11)
--- NOTE | 2024-08-08 13:38 | P.PNIM_ITS ---
Subjective Subjective Date of Service: 08/08/24 Interval History: seen and examined this morning Follow-up for hematemesis, [place], CHF History obtained with the assistance of a seismic interpreter Patient awake, alert. tearful, vague historian. reporting cough and body pain. denies chest pain/abdominal pain Review of Systems Review of Systems: Yes all other systems are reviewed and are negative Constitutional Constitutional: Denies chills and Denies fever(s) Cardiovascular Cardiovascular: Denies chest pain, Denies palpitations and Denies dyspnea Respiratory Respiratory: Reports cough and Denies dyspnea Gastrointestinal Gastrointestinal: Denies abdominal pain Endocrine Endocrine: Denies palpitations Physical Exam 2 Vital Signs: Vital Signs: Last Vital Signs Temp 98.9 F 08/08/24 11:41 Pulse 81 08/08/24 11:41 Resp 17 08/08/24 11:41 BP 143/65 H 08/08/24 11:41 Pulse Ox 92 08/08/24 11:41 O2 Del Method Room Air 08/08/24 11:41 O2 Flow Rate 2 08/08/24 04:00 BMI result Body Mass Index 22.6 Const: Other: tearful General: alert and awake Nutritional Appearance: average body habitus Orientation/consciousness: oriented to person and oriented to place Resp: Other: diminished b/l Effort & Inspection: normal respiratory effort, able to speak in complete sentences, no respiratory distress and no use of accessory muscles Cardio: Rate: regular rate GI: Inspection: No distended Palpation (GI): Soft to palpation and nontender Neuro: Other: grossly nonfocal, moves all extremities spontaneously General: oriented to person and oriented to place Extrem: Other: b/l leg edema Objective Data Active Medications Acetaminophen (Acetaminophen 325 Mg Tablet) 650 mg PO Q6H PRN PRN Reason: Pain, Mild 1-3,fever,headache Last Admin: 08/08/24 09:53 Dose: 650 mg Documented By: SHAE Albuterol/Ipratropium (Albuterol/Iprat 2.5/0.5mg 3 Ml Ampul.Neb) 3 ml INHALE RQ6H WHILE AWAKE PRN PRN Reason: Shortness of Breath/Wheezing Amlodipine Besylate (Amlodipine Besylate 10 Mg Tablet) 10 mg PO DAILY JM; Protocol Last Admin: 08/08/24 09:54 Dose: 10 mg Documented By: SHAE Calcium Carbonate (Calcium Carbonate 750 Mg Tab.Chew) 750 mg PO Q4H PRN PRN Reason: Heartburn Last Admin: 08/08/24 01:29 Dose: 750 mg Documented By: CELESTE Dextrose (Dextrose 50 % 25 Gm/50 Ml Syringe) 25 gm IVPUSH Q15M PRN; Protocol PRN Reason: per Hypoglycemia Standing Ord. Last Admin: 08/06/24 06:47 Dose: 25 gm Documented By: CARY Ferrous Sulfate (Ferrous Sulfate 324 Mg Tablet.Dr) 324 mg PO DAILY [facility] Last Admin: 08/08/24 09:54 Dose: 324 mg Documented By: SHAE Gabapentin (Gabapentin 100 Mg Capsule) 100 mg PO BEDTIME [facility] Last Admin: 08/07/24 20:18 Dose: 100 mg Documented By: CELESTE Glucose (Glucose Gel 15 Gm Gel..Gram.) 15 gm PO Q15M PRN; Protocol PRN Reason: per Hypoglycemia Standing Ord. Hydralazine HCl (Hydralazine Hcl 25 Mg Tablet) 25 mg PO TID [facility]; Protocol Last Admin: 08/08/24 09:54 Dose: 25 mg Documented By: SHAE Furosemide 200 mg/ Sodium (Chloride) 100 mls @ 2.5 mls/hr IVCONT .Q24H [facility] Last Admin: 08/07/24 15:56 Dose: 5 mg/hr, 2.5 mls/hr Documented By: TARUN Insulin Human Lispro (Insulin Lispro 100 Unit/Ml 3 Ml Vial) 0 unit SUBCUT QIDACHS [facility]; Protocol Last Admin: 08/08/24 12:35 Dose: 2 unit Documented By: SHAE Magnesium Hydroxide (Milk Of Magnesia 30 Ml Oral.Susp) 30 ml PO DAILY PRN PRN Reason: Constipation Last Admin: 08/07/24 07:28 Dose: 30 ml Documented By: LIA Melatonin (Melatonin 3 Mg Tablet) 6 mg PO BEDTIME PRN PRN Reason: Insomnia Metoprolol Succinate (Metoprolol Succinate Er 25 Mg Tab.Er.24h) 25 mg PO DAILY [facility]; Protocol Last Admin: 08/08/24 09:54 Dose: 25 mg Documented By: SHAE Ondansetron HCl (Ondansetron Hcl 4 Mg/2 Ml Vial) 4 mg IVPUSH Q8H PRN PRN Reason: Nausea and Vomiting Last Admin: 08/08/24 03:55 Dose: 4 mg Documented By: CELESTE Pantoprazole Sodium (Pantoprazole Sodium 40 Mg/10 Ml Vial) 40 mg IVPUSH BID@0630,1630 [facility] Last Admin: 08/08/24 05:11 Dose: 40 mg Documented By: CELESTE Sodium Chloride (0.9 % Sodium Chloride Flush 3 Ml Syringe) 3 ml IVFLUSH QSHIFT [facility] Last Admin: 08/08/24 09:56 Dose: Not Given Documented By: SHAE Non-Admin Reason: IV Running Labs 08/08/24 07:14 08/08/24 07:14 Labs: Laboratory Results - last 24 hr 08/07/24 08/07/24 08/08/24 16:28 20:40 07:14 MCV 88.8 MCH 30.1 MCHC 33.9 RDW 15.1 Plt Count 147 L MPV 8.4 L Absolute Nucleated RBC 0.000 Nucleated RBC % (auto) 0.0 Anion Gap 12 Estim Creat Clear Calc 20.1 Estimated GFR 15 POC Glucose 121 H 187 H Random Glucose 117 H Calcium 8.6 08/08/24 08/08/24 07:52 11:02 MCV MCH MCHC RDW Plt Count MPV Absolute Nucleated RBC Nucleated RBC % (auto) Anion Gap Estim Creat Clear Calc Estimated GFR POC Glucose 113 163 H Random Glucose Calcium Assessment and Plan (1) Acute kidney injury superimposed on chronic kidney disease: Status: Acute (2) Acute exacerbation of CHF (congestive heart failure): Status: Acute Plan This is a 54-year-old Thai-speaking female with pertinent history of chronic combined systolic and diastolic congestive heart failure, chronic hypoxemic respiratory failure due to COPD on 2-3 L supplemental oxygen, hypertension, insulin-dependent diabetes mellitus, gastroesophageal reflux disease, mixed hyperlipidemia, CKD stage 3 who presents to the emergency department for evaluation of blood in vomitus. acue on Chronic combined systolic and diastolic congestive heart failure: EF 45-50% with impaired relaxation overall volume overloaded; imaging with anasarca, pleural effusions continue lasix drip Is&Os not accurate seen by cardiology. agree with current management follow BMP pleural effusion h/o recurrent pleural effusions has had thoracentesis in the past Acute GI bleed: episode of hemetemesis x1, no further bleeding H/H improved after blood transfusion Seen by GI, has declined EGD continue empiric PPI resume oral iron supplementation vomiting no further vomiting reported. denies abdominal pain IV ppi, antiemetics abdominal exam benign but initial imaging with possible ileus no further vomiting today - will advance to full liquids Acute kidney injury on CKD stage 3: due to tubular injury seen by nephrology Follow BMP Acute hypokalemia: replaced and improved hold Lokelma for now Chronic hypoxemic respiratory failure due to COPD: Continue baseline supplemental oxygen and home inhalers Insulin-dependent diabetes mellitus: lantus on hold for hypoglycemia, normal POCs; when diet advance can consider resuming SSI, POCs HTN continue norvasc, metoprolol add hydralzine if bp remains elevated DVT prophylaxis: Mechanical DNI Requires ongoing inpatient stay for close monitoring of kidney function, H&H, hemodynamics, electrolytes (as above), lasix drip, close monitoring which is not possible in a lesser acute setting Quality Stroke Does the patient have a stroke diagnosis?: No VTE Prior VTE?: No VTE Risk Level:: Medical - moderate - high VTE Device Contraindication: N/A - Device Ordered VTE Drug Contraindication: Treatment Not Indicated
--- NOTE | 2024-08-08 14:11 | PC.NURSE ---
Discussed with provider regarding patient use of purewick. If unable to collect accurate output information will insert parks catheter. Continue to monitor.
[2024-08-08 16:10] LABS: Glucose, Whole Blood 110 mg/dL (60-115)
[2024-08-08] MEDS: Furosemide 200 MG in 0.9 % Sodium Chloride 80 ML IVCONT (16:49)
[2024-08-08] MEDS: 0.9 % Sodium Chloride Flush 3 ML SYRINGE IVFLUSH (16:52)
[2024-08-08 20:36] LABS: Glucose, Whole Blood 199 mg/dL (60-115)
[2024-08-08] MEDS: Gabapentin 100 MG CAPSULE PO (21:11)
[2024-08-08] MEDS: Albuterol/Iprat 2.5/0.5MG 3 ML AMPUL.NEB INHALE (21:25)
[2024-08-09] VITALS (13 sets, daily range): BP systolic 144–170; BP diastolic 63–80; PULSE 83–95; RESP 16–26; TEMP 37.1–38.3; O2SAT 90–95
--- NOTE | 2024-08-09 00:14 | PM.EVENT ---
Event Note Date of Service: 08/09/24 Event Note: Patient with increasing oxygen requirement overnight. Noted patient is on Lasix drip for decompensated CHF. Obtained chest x-ray Time Spent With Patient Time: Total time managing care of this patient today ____ minutes.
[2024-08-09] MEDS: ondansetron HCL 4 MG/2 ML VIAL IVPUSH (02:13)
[2024-08-09] MEDS: Doxycycline Hyclate 100 MG in 0.9 % Sodium Chloride 250 ML 166.67 MG IV ×2 (03:18→14:35)
[2024-08-09] MEDS: cefTRIAXone sodium 1 GM VIAL IVPUSH (03:18)
[2024-08-09] MEDS: Pantoprazole Sodium 40 MG/10 ML VIAL IVPUSH ×2 (05:02→16:03)
[2024-08-09 07:34] LABS: Hematocrit 23.7 % (37.0-47.0); Hemoglobin 7.6 g/dl (12.0-16.0); Mean Corpuscular HGB Conc 32.1 g/dl (31.0-35.0); Mean Corpuscular Hemoglobin 29.2 pg (27.0-33.0); Mean Corpuscular Volume 91.2 fL (80.0-98.0); Mean Platelet Volume 9.5 fL (9.4-12.3); Platelet Count 131 X10*3/uL (160-400); Red Cell Distribution Width 15.1 % (11.0-16.0); White Blood Count 5.8 X10*3/uL (4.8-10.8)
[2024-08-09 07:42] LABS: Anion Gap 11 (12-20); Blood Urea Nitrogen 46 mg/dL (9-16); Calcium 8.2 mg/dL (8.4-10.2); Carbon Dioxide 24 mmol/L (22-29); Chloride 105 mmol/L (96-108); Estimated Glomerular Filt Rate 14; Glucose Random 164 mg/dL (60-115); Potassium 3.8 mmol/L (3.3-5.1); Sodium 136 mmol/L (135-145)
[2024-08-09 07:55] LABS: Glucose, Whole Blood 155 mg/dL (60-115)
[2024-08-09 08:58] LABS: Procalcitonin 0.57 ng/mL
[2024-08-09] MEDS: amLODIPine Besylate 10 MG TABLET PO (09:37)
[2024-08-09] MEDS: Insulin Lispro 100 UNIT/ML 3 ML VIAL SUBCUT (09:38)
[2024-08-09] MEDS: Metoprolol Succinate ER 25 MG TAB.ER.24H PO (09:38)
[2024-08-09] MEDS: Ferrous Sulfate 324 MG TABLET.DR PO (09:38)
[2024-08-09 09:42] LABS: Adenovirus PCR Not Detected (Not Detect.); Bordetella parapertussis PCR Not Detected (Not Detect.); Bordetella pertussis PCR Not Detected (Not Detect.); Chlamydia pneumoniae PCR Not Detected (Not Detect.); Coronavirus 229E PCR Not Detected (Not Detect.); Coronavirus HKU1 PCR Not Detected (Not Detect.); Coronavirus NL63 PCR Not Detected (Not Detect.); Coronavirus OC43 PCR Not Detected (Not Detect.); Human metapneumovirus PCR Not Detected (Not Detect.); Influenza A PCR Not Detected (Not Detect.); Influenza B PCR Not Detected (Not Detect.); Mycoplasma pneumoniae PCR Not Detected (Not Detect.); Parainfluenza 1 PCR Not Detected (Not Detect.); Parainfluenza 2 PCR Not Detected (Not Detect.); Parainfluenza 3 PCR Detected (Not Detect.); Parainfluenza 4 PCR Not Detected (Not Detect.); RSV PCR Not Detected (Not Detect.); Rhino/Enterovirus PCR Not Detected (Not Detect.)
[2024-08-09 10:03] LABS: Influenza A H1 PCR Not Detected (Not Detect.); Influenza A H1-2009 PCR Not Detected (Not Detect.); Influenza A H3 PCR Not Detected (Not Detect.); SARS-CoV-2 PCR Not Detected (Not Detect.)
[2024-08-09 10:06] LABS: B Type Natriuretic Peptide 1253 pg/mL (<100)
[2024-08-09 10:59] LABS: Glucose, Whole Blood 152 mg/dL (60-115)
--- NOTE | 2024-08-09 13:37 | HO.PM.IMPN ---
Subjective Subjective Date of Service: 08/09/24 Interval History: Seen and examined this morning Follow-up for CHF, DILLON Developed fever overnight, imaging concerning for pneumonia Respiratory pathogen panel sent this morning, positive for parainfluenza History obtained with the assistance of a new car get ready mechanic, patient reporting cough; leg pain resolved. Review of Systems Review of Systems: Yes all other systems are reviewed and are negative Constitutional Constitutional: Denies chills and Reports fever(s) Cardiovascular Cardiovascular: Denies chest pain and Denies palpitations Respiratory Respiratory: Reports cough Gastrointestinal Gastrointestinal: Denies abdominal pain, Denies nausea and Denies vomiting Endocrine Endocrine: Denies palpitations Physical Exam Vital Signs: Vital Signs: Last Vital Signs Temp 99.1 F 08/09/24 10:50 Pulse 87 08/09/24 10:50 Resp 18 08/09/24 10:50 BP 154/70 H 08/09/24 10:50 Pulse Ox 92 08/09/24 10:50 O2 Del Method Nasal Cannula 08/09/24 10:50 O2 Flow Rate 3 08/09/24 10:50 BMI result Body Mass Index 22.6 Const: General: alert, awake and Physically active Nutritional Appearance: average body habitus Orientation/consciousness: oriented to person and oriented to place Resp: Other: b/l course breath sounds, rhonchi Effort & Inspection: normal respiratory effort, able to speak in complete sentences, no respiratory distress and no use of accessory muscles Cardio: Rate: regular rate GI: Inspection: No distended Palpation (GI): Soft to palpation and nontender Neuro: Other: grossly nonfocal, moves all extremities spontaneously General: oriented to person and oriented to place Extrem: Other: significant improvement in leg edema Objective Data Active Medications Acetaminophen (Acetaminophen 325 Mg Tablet) 650 mg PO Q6H PRN PRN Reason: Pain, Mild 1-3,fever,headache Last Admin: 08/08/24 23:47 Dose: 650 mg Documented By: CELESTE Albuterol/Ipratropium (Albuterol/Iprat 2.5/0.5mg 3 Ml Ampul.Neb) 3 ml INHALE RQ6H WHILE AWAKE PRN PRN Reason: Shortness of Breath/Wheezing Last Admin: 08/08/24 21:25 Dose: 3 ml Documented By: ELIDIA Amlodipine Besylate (Amlodipine Besylate 10 Mg Tablet) 10 mg PO DAILY JM; Protocol Last Admin: 08/09/24 09:37 Dose: 10 mg Documented By: SHAE Calcium Carbonate (Calcium Carbonate 750 Mg Tab.Chew) 750 mg PO Q4H PRN PRN Reason: Heartburn Last Admin: 08/08/24 01:29 Dose: 750 mg Documented By: CELESTE Ceftriaxone Sodium (Ceftriaxone Sodium 1 Gm Vial) 1 gm IVPUSH Q24H [facility] Last Admin: 08/09/24 03:18 Dose: 1 gm Documented By: CELESTE Dextrose (Dextrose 50 % 25 Gm/50 Ml Syringe) 25 gm IVPUSH Q15M PRN; Protocol PRN Reason: per Hypoglycemia Standing Ord. Last Admin: 08/06/24 06:47 Dose: 25 gm Documented By: CARY Ferrous Sulfate (Ferrous Sulfate 324 Mg Tablet.Dr) 324 mg PO DAILY [facility] Last Admin: 08/09/24 09:38 Dose: 324 mg Documented By: SHAE Furosemide (Furosemide 40 Mg/4 Ml Vial) 40 mg IVPUSH BID@0900,1800 [facility]; Protocol Gabapentin (Gabapentin 100 Mg Capsule) 100 mg PO BEDTIME [facility] Last Admin: 08/08/24 21:11 Dose: 100 mg Documented By: CELESTE Glucose (Glucose Gel 15 Gm Gel..Gram.) 15 gm PO Q15M PRN; Protocol PRN Reason: per Hypoglycemia Standing Ord. Guaifenesin/Dextromethorphan (Guaifenesin Dm 100/10/5 Ml 5 Ml Syrup) 5 ml PO Q6H PRN PRN Reason: Cough Hydralazine HCl (Hydralazine Hcl 25 Mg Tablet) 25 mg PO TID [facility]; Protocol Last Admin: 08/08/24 16:42 Dose: Not Given Documented By: SHAE Non-Admin Reason: Physician Held Med Doxycycline Hyclate 100 mg/ (Sodium Chloride) 250 mls @ 166.67 mls/hr IV Q12H [facility] Last Infusion: 08/09/24 05:05 Dose: Infused Documented By: CELESTE Insulin Human Lispro (Insulin Lispro 100 Unit/Ml 3 Ml Vial) 0 unit SUBCUT QIDACHS [facility]; Protocol Last Admin: 08/09/24 13:04 Dose: Not Given Documented By: JHONNY Non-Admin Reason: refused lunch Iron Sucrose (Iron Sucrose Complex 200 Mg/10 Ml Vial) 200 mg IVPUSH DAILY [facility] Stop: 08/15/24 08:59 Magnesium Hydroxide (Milk Of Magnesia 30 Ml Oral.Susp) 30 ml PO DAILY PRN PRN Reason: Constipation Last Admin: 08/07/24 07:28 Dose: 30 ml Documented By: LIA Melatonin (Melatonin 3 Mg Tablet) 6 mg PO BEDTIME PRN PRN Reason: Insomnia Metoprolol Succinate (Metoprolol Succinate Er 25 Mg Tab.Er.24h) 25 mg PO DAILY [facility]; Protocol Last Admin: 08/09/24 09:38 Dose: 25 mg Documented By: SHAE Ondansetron HCl (Ondansetron Hcl 4 Mg/2 Ml Vial) 4 mg IVPUSH Q8H PRN PRN Reason: Nausea and Vomiting Last Admin: 08/09/24 02:13 Dose: 4 mg Documented By: CELESTE Pantoprazole Sodium (Pantoprazole Sodium 40 Mg/10 Ml Vial) 40 mg IVPUSH BID@0630,1630 [facility] Last Admin: 08/09/24 05:02 Dose: 40 mg Documented By: CELESTE Sodium Chloride (0.9 % Sodium Chloride Flush 3 Ml Syringe) 3 ml IVFLUSH QSHIFT [facility] Last Admin: 08/09/24 09:39 Dose: Not Given Documented By: SHAE Non-Admin Reason: IV Running Labs 08/09/24 07:15 08/09/24 07:11 Labs: Laboratory Results - last 24 hr 08/08/24 08/08/24 08/09/24 16:07 20:33 03:08 MCV MCH MCHC RDW Plt Count MPV Absolute Nucleated RBC Nucleated RBC % (auto) Hold Purple Top Anion Gap Estim Creat Clear Calc Estimated GFR POC Glucose 110 199 H Random Glucose Lactic Acid 1.0 Calcium B-Natriuretic Peptide Procalcitonin Respiratory Panel Herrera Adenovirus (Rapid PCR) B.pert (TEM-PCR) B.parapertussis DNA PCR C. pneumoniae DNA (PCR) Coronavirus OC43 (PCR) Coronavirus HKU1 (PCR) Coronavirus 229E (PCR) Coronavirus NL63 (PCR) Human Metapneumovir PCR Influenza A (RT-PCR) Influenza A (H1) PCR Influ A (H1/09) PCR Influenza A (H3) PCR Influenza B (RT-PCR) M. pneumoniae (PCR) Parainfluenza 1 (PCR) Parainfluenza 2 (PCR) Parainfluenza 3 (PCR) Parainfluenza 4 (PCR) RSV (PCR) Entero/Rhino (PCR) SARS-CoV-2 RNA (RT-PCR) Blood Type Antibody Screen Crossmatch 08/09/24 08/09/24 08/09/24 07:11 07:15 07:42 MCV 91.2 MCH 29.2 MCHC 32.1 RDW 15.1 Plt Count 131 L MPV 9.5 Absolute Nucleated RBC 0.000 Nucleated RBC % (auto) 0.0 Hold Purple Top SEE NOTE Anion Gap 11 L Estim Creat Clear Calc 19.0 Estimated GFR 14 POC Glucose Random Glucose 164 H Lactic Acid Calcium 8.2 L B-Natriuretic Peptide Procalcitonin 0.57 Respiratory Panel Herrera See Note Adenovirus (Rapid PCR) Not Detected B.pert (TEM-PCR) Not Detected B.parapertussis DNA PCR Not Detected C. pneumoniae DNA (PCR) Not Detected Coronavirus OC43 (PCR) Not Detected Coronavirus HKU1 (PCR) Not Detected Coronavirus 229E (PCR) Not Detected Coronavirus NL63 (PCR) Not Detected Human Metapneumovir PCR Not Detected Influenza A (RT-PCR) Not Detected Influenza A (H1) PCR Not Detected Influ A (H1/09) PCR Not Detected Influenza A (H3) PCR Not Detected Influenza B (RT-PCR) Not Detected M. pneumoniae (PCR) Not Detected Parainfluenza 1 (PCR) Not Detected Parainfluenza 2 (PCR) Not Detected Parainfluenza 3 (PCR) Detected A Parainfluenza 4 (PCR) Not Detected RSV (PCR) Not Detected Entero/Rhino (PCR) Not Detected SARS-CoV-2 RNA (RT-PCR) Not Detected Blood Type Antibody Screen Crossmatch 08/09/24 08/09/24 08/09/24 07:48 09:31 10:52 MCV MCH MCHC RDW Plt Count MPV Absolute Nucleated RBC Nucleated RBC % (auto) Hold Purple Top Anion Gap Estim Creat Clear Calc Estimated GFR POC Glucose 155 H 152 H Random Glucose Lactic Acid Calcium B-Natriuretic Peptide 1253 H Procalcitonin Respiratory Panel Herrera Adenovirus (Rapid PCR) B.pert (TEM-PCR) B.parapertussis DNA PCR C. pneumoniae DNA (PCR) Coronavirus OC43 (PCR) Coronavirus HKU1 (PCR) Coronavirus 229E (PCR) Coronavirus NL63 (PCR) Human Metapneumovir PCR Influenza A (RT-PCR) Influenza A (H1) PCR Influ A () PCR Influenza A (H3) PCR Influenza B (RT-PCR) M. pneumoniae (PCR) Parainfluenza 1 (PCR) Parainfluenza 2 (PCR) Parainfluenza 3 (PCR) Parainfluenza 4 (PCR) RSV (PCR) Entero/Rhino (PCR) SARS-CoV-2 RNA (RT-PCR) Blood Type Antibody Screen Crossmatch 08/09/24 11:26 MCV MCH MCHC RDW Plt Count MPV Absolute Nucleated RBC Nucleated RBC % (auto) Hold Purple Top Anion Gap Estim Creat Clear Calc Estimated GFR POC Glucose Random Glucose Lactic Acid Calcium B-Natriuretic Peptide Procalcitonin Respiratory Panel Herrera Adenovirus (Rapid PCR) B.pert (TEM-PCR) B.parapertussis DNA PCR C. pneumoniae DNA (PCR) Coronavirus OC43 (PCR) Coronavirus HKU1 (PCR) Coronavirus 229E (PCR) Coronavirus NL63 (PCR) Human Metapneumovir PCR Influenza A (RT-PCR) Influenza A (H1) PCR Influ A () PCR Influenza A (H3) PCR Influenza B (RT-PCR) M. pneumoniae (PCR) Parainfluenza 1 (PCR) Parainfluenza 2 (PCR) Parainfluenza 3 (PCR) Parainfluenza 4 (PCR) RSV (PCR) Entero/Rhino (PCR) SARS-CoV-2 RNA (RT-PCR) Blood Type A Positive Antibody Screen NEGATIVE Crossmatch See Detail Assessment and Plan (1) Parainfluenza: Status: Acute (2) Iron deficiency: Status: Acute (3) Acute kidney injury superimposed on chronic kidney disease: Status: Acute (4) Hematemesis: Status: Acute (5) Acute exacerbation of CHF (congestive heart failure): Status: Acute Plan This is a 54-year-old Lithuanian-speaking female with pertinent history of chronic combined systolic and diastolic congestive heart failure, chronic hypoxemic respiratory failure due to COPD on 2-3 L supplemental oxygen, hypertension, insulin-dependent diabetes mellitus, gastroesophageal reflux disease, mixed hyperlipidemia, CKD stage 3 who presents to the emergency department for evaluation of blood in vomitus. pneumonia/parainfluenza virus spiked fever overnight (08/08) repeat cxr concerning for pneumonia, started on ceftriaxone, doxycycline 08/09 Lactic acid normal. elevated creatinine due to ckd/volume not due to sepsis Possible viral with bacterial superinfection. RPP positive for parainfluenza Follow blood cultures Symptomatic management acue on Chronic combined systolic and diastolic congestive heart failure: EF 45-50% with impaired relaxation overall volume overloaded; imaging with anasarca, pleural effusions Is&Os not accurate but significant improvement in leg edema, repeat cxr with small effusions transition from lasix drip to iv push lasix 40 bid as creatinine is trending up cardiology following follow BMP pleural effusion h/o recurrent pleural effusions. has had thoracentesis in the past repeat cxr with improving effusions Acute GI bleed: episode of hemetemesis x1 (reason for admission), no further overt bleeding H/H improved after blood transfusion initially but is downtrending again Seen by GI, has declined EGD continue empiric PPI plan for procrit this am, 1U rbc this afternoon IV iron starting in am follow H/H vomiting no further vomiting reported. denies abdominal pain IV ppi, antiemetics abdominal exam benign but initial imaging with possible ileus resolve, advance to full diet Acute kidney injury on CKD stage 3: due to tubular injury. creatinine trending up lasix drip changed to IV push nephrology following Follow BMP Acute hypokalemia: replaced and improved hold Lokelma for now Chronic hypoxemic respiratory failure due to COPD: Continue baseline supplemental oxygen and home inhalers Insulin-dependent diabetes mellitus: lantus on hold for hypoglycemia, normal POCs monitor POCs with diet advancement, may need to resume lantus (on 10U at baseline) SSI, POCs HTN continue norvasc, metoprolol add low dose hydralzine DVT prophylaxis: Mechanical due to anemia/possible GI bleed DNI Requires ongoing inpatient stay for close monitoring of kidney function, H&H, hemodynamics, electrolytes (as above), IV lasix, close monitoring which is not possible in a lesser acute setting Quality Stroke Does the patient have a stroke diagnosis?: No VTE Prior VTE?: No VTE Risk Level:: Medical - moderate - high VTE Device Contraindication: N/A - Device Ordered VTE Drug Contraindication: Treatment Not Indicated
[2024-08-09] MEDS: hydrALAZINE HCl 10 MG TABLET PO ×2 (16:02→20:46)
[2024-08-09] MEDS: 0.9 % Sodium Chloride Flush 3 ML SYRINGE IVFLUSH ×2 (16:06→22:08)
[2024-08-09 16:31] LABS: Glucose, Whole Blood 112 mg/dL (60-115)
[2024-08-09] MEDS: Furosemide 40 MG/4 ML VIAL IVPUSH ×2 (16:39→22:07)
--- NOTE | 2024-08-09 16:48 | PC.NURSE ---
Provider notified of bilateral coarse and expiratory wheezing with non productive cough with sats 88 to 89 on 3L supplemental oxygen. Oxygen increased to 4L with sats of 92%. Order for 40mg IVP furosemide to be given now. Will assess response prior to sending for unit of PRBC. Continue to monitor.
--- NOTE | 2024-08-09 19:29 | PC.NURSE ---
Addendum entered by Lizabeth Santillan RN 08/10/24 04:41: 03:00 hour: Pt c/o new dizziness. Vitals obtained were stable. POC obtained 114 stable. Mentation unchanged from initial assessment. notified. No new orders. Resolved spontaneously per pt. On rounding again shortly after to reassess pt, the pt was found weeping though was vague when responding to questions initially. After providing emotional support to the patient, patient offered new c/o burning inside with the catheter and requested her parks be removed. No redness or issues observed on external mercy assessment. Pt denies flank pain or other acute issues. notified, written order to discontinue parks and obtain clean catch U/A. F/c discontinued at 04:00. Pt attempted to void without success. Clean purewick setup throughout placed due to continued need for accurate I+Os on lasix. Pt was educated on need for clean catch and to call once voided to assess PVR. Patient verbalized understanding. [employer] Worker was used for these interactions. Addendum entered by Lizabeth Santillan RN 08/09/24 22:21: 20:00 hour: Covering Dr. Sarmiento notified evening vitals including pt BP 166/67 with HR 88 with blood actively infusing. Lasix from 18:00 was outstanding and pt was also due for scheduled hydralazine. notified with designer/writer request made for clarification on which meds to give during this time. written order to give po hydralazine but hold IVP lasix. 21:00 hour: Blood finished infusing without incidence. Remaining/waste volume was discarded due to max time/reduced rate as per below (please see TAR for full details). Waste volume was witnessed with discharge door operator. BP on transfusion end vitals was 172/77 cuff, manually 170/80 spo2 90% on 4L nc which the pt was on at time of assuming care. Pt denied headache, chest pain, sob, or other acute issues. Breathing was even and unlabored without distress. notified of BP and course lung bases on auscultation. written orders given to now administered previously held lasix. Given per JUL. Original Note: Assumed care of this patient at 19:00. Pt has RBCs infusing at 80ml/hr on assuming care for TACO risk, rate visualized and confirmed with off-going RN at bedside. Patient resting in bed during this initial interaction. Breathing observed even and unlabored without distress. Pt offering no complaints at this time. Bed alarm on, safety measures in place. Call sampson within reach and educated on use.
[2024-08-09 20:21] LABS: Glucose, Whole Blood 122 mg/dL (60-115)
[2024-08-09] MEDS: Gabapentin 100 MG CAPSULE PO (20:46)
[2024-08-10] VITALS (8 sets, daily range): BP systolic 133–158; BP diastolic 65–83; PULSE 75–92; RESP 17–20; TEMP 36.2–37.2; O2SAT 90–94
[2024-08-10] MEDS: cefTRIAXone sodium 1 GM VIAL IVPUSH (01:10)
[2024-08-10] MEDS: Doxycycline Hyclate 100 MG in 0.9 % Sodium Chloride 250 ML 166.67 MG IV ×2 (01:13→15:00)
[2024-08-10 03:35] LABS: Glucose, Whole Blood 114 mg/dL (60-115)
[2024-08-10] MEDS: Albuterol/Iprat 2.5/0.5MG 3 ML AMPUL.NEB INHALE ×2 (04:35→22:57)
[2024-08-10] MEDS: Pantoprazole Sodium 40 MG/10 ML VIAL IVPUSH ×2 (06:23→16:37)
[2024-08-10 07:34] LABS: Glucose, Whole Blood 143 mg/dL (60-115)
[2024-08-10 07:58] LABS: Appearance Urine Cloudy; Color Urine Yellow; Glucose Urine UA Negative (Negative); Leukocyte Esterase Urine Small (1+) (Negative); Nitrite Urine Negative (Negative); PH 5.5 (5.0-9.0); UMIC TRIGGER UACC YES; Urine Blood Large (3+) (Negative); Urine Ketones Trace mg/dL (Negative); Urine Protein >=1000 (4+) mg/dL (Neg-Trace)
[2024-08-10 08:00] LABS: Bacteria Urine None Seen (None Seen); RBC Urine >20 /HPF (0-2); UACC Culture Trigger YES; WBC Urine 21-50 /HPF (0-5)
[2024-08-10] MEDS: Furosemide 40 MG/4 ML VIAL IVPUSH ×2 (10:30→16:37)
[2024-08-10] MEDS: Iron Sucrose Complex 200 MG/10 ML VIAL IVPUSH (10:31)
[2024-08-10] MEDS: Metoprolol Succinate ER 25 MG TAB.ER.24H PO (10:31)
[2024-08-10] MEDS: 0.9 % Sodium Chloride Flush 3 ML SYRINGE IVFLUSH ×3 (10:31→22:28)
[2024-08-10] MEDS: hydrALAZINE HCl 10 MG TABLET PO ×3 (10:31→22:27)
[2024-08-10] MEDS: amLODIPine Besylate 10 MG TABLET PO (10:31)
[2024-08-10] MEDS: guaiFENesin DM 100/10/5 ML 5 ML SYRUP PO ×2 (10:42→22:29)
--- NOTE | 2024-08-10 11:08 | P.PNNP_ITS ---
Subjective Subjective Date of Service: 08/10/24 Interval history: Seen this morning. Events noted. All recent data reviewed. D/W Hospitalist Physical Exam 2 Vital Signs: Vital Signs: Last Vital Signs Temp 98.1 F 08/10/24 07:06 Pulse 92 08/10/24 07:06 Resp 17 08/10/24 07:06 BP 146/68 H 08/10/24 07:06 Pulse Ox 93 08/10/24 07:06 O2 Del Method Nasal Cannula 08/10/24 07:06 O2 Flow Rate 4 08/10/24 07:06 BMI result Body Mass Index 22.6 Const: General: no acute distress Eyes: EOM: EOMs intact bilaterally Neck: Neck: Yes supple Resp: Auscultation: diminished lung sounds Cardio: Rate: regular rate GI: Palpation (GI): Soft to palpation Neuro: General: moves all extremities Objective Data Labs 08/09/24 07:15 08/09/24 07:11 Labs: Laboratory Results - last 24 hr 08/09/24 08/09/24 08/09/24 11:26 16:25 20:13 POC Glucose 112 122 H Urine Color Urine Appearance Urine pH Ur Specific [place] Urine Protein Urine Glucose (UA) Urine Ketones Urine Blood Urine Nitrite Ur Leukocyte Esterase Urine RBC Urine WBC Ur Squamous Epith Cells Urine Bacteria Hyaline Casts Blood Type A Positive Antibody Screen NEGATIVE Crossmatch See Detail 08/10/24 08/10/24 08/10/24 03:29 07:29 07:36 POC Glucose 114 143 H Urine Color Yellow Urine Appearance Cloudy Urine pH 5.5 Ur Specific [place] 1.020 Urine Protein >=1000 (4+) H Urine Glucose (UA) Negative Urine Ketones Trace Urine Blood Large (3+) H Urine Nitrite Negative Ur Leukocyte Esterase Small (1+) H Urine RBC >20 H Urine WBC 21-50 H Ur Squamous Epith Cells 3-5 Urine Bacteria None Seen Hyaline Casts 3-5 Blood Type Antibody Screen Crossmatch Microbiology Microbiology Results: Microbiology 08/09/24 03:07 Blood - Venous Blood Culture - Preliminary No growth after 24 hours. 08/09/24 03:07 Blood - Venous Blood Culture - Preliminary No growth after 24 hours. Procedures Date of Service Date of Service: 08/10/24 Assessment & Plan Assessment and plan (1) Acute kidney injury superimposed on chronic kidney disease: Status: Acute Plan DILLON due to tubular injury; Renal functions stable Hypervolemic. Shall continue current dose of lasix Had PRBC & EPO. Iron ordered No reason to suspect GN/AIN. UO OK; No indication for HD yet C/W rest of current supportive management for now Progress Note: Quality Stroke Does the patient have a stroke diagnosis?: No
--- NOTE | 2024-08-10 11:30 | P.PNIM_ITS ---
Subjective Subjective Date of Service: 08/10/24 Interval History: Seen and examined this morning Follow-up for CHF, DILLON +cough Review of Systems Review of Systems: Yes all other systems are reviewed and are negative Constitutional Constitutional: Denies chills and Reports fever(s) Cardiovascular Cardiovascular: Denies chest pain and Denies palpitations Respiratory Respiratory: Reports cough Gastrointestinal Gastrointestinal: Denies abdominal pain, Denies nausea and Denies vomiting Endocrine Endocrine: Denies palpitations Physical Exam 2 Vital Signs: Vital Signs: Last Vital Signs Temp 97.6 F 08/10/24 11:18 Pulse 85 08/10/24 11:18 Resp 17 08/10/24 11:18 BP 157/77 H 08/10/24 11:18 Pulse Ox 94 08/10/24 11:18 O2 Del Method Nasal Cannula 08/10/24 11:18 O2 Flow Rate 4 08/10/24 11:18 BMI result Body Mass Index 22.6 Appearing in no acute distress lung sounds are clear to auscultation heart regular rate rhythm, clear S1, S2 positive bowel sounds, abdomen is soft, nontender neuro patient is alert x3, no focal deficits Objective Data Active Medications Acetaminophen (Acetaminophen 325 Mg Tablet) 650 mg PO Q6H PRN PRN Reason: Pain, Mild 1-3,fever,headache Last Admin: 08/08/24 23:47 Dose: 650 mg Documented By: CELESTE Albuterol/Ipratropium (Albuterol/Iprat 2.5/0.5mg 3 Ml Ampul.Neb) 3 ml INHALE RQ6H WHILE AWAKE PRN PRN Reason: Shortness of Breath/Wheezing Last Admin: 08/10/24 04:35 Dose: 3 ml Documented By: ARIEL Amlodipine Besylate (Amlodipine Besylate 10 Mg Tablet) 10 mg PO DAILY [facility]; Protocol Last Admin: 08/10/24 10:31 Dose: 10 mg Documented By: POLLO Calcium Carbonate (Calcium Carbonate 750 Mg Tab.Chew) 750 mg PO Q4H PRN PRN Reason: Heartburn Last Admin: 08/08/24 01:29 Dose: 750 mg Documented By: CELESTE Ceftriaxone Sodium (Ceftriaxone Sodium 1 Gm Vial) 1 gm IVPUSH Q24H [facility] Last Admin: 08/10/24 01:10 Dose: 1 gm Documented By: CAMILO Dextrose (Dextrose 50 % 25 Gm/50 Ml Syringe) 25 gm IVPUSH Q15M PRN; Protocol PRN Reason: per Hypoglycemia Standing Ord. Last Admin: 08/06/24 06:47 Dose: 25 gm Documented By: CARY Ferrous Sulfate (Ferrous Sulfate 324 Mg Tablet.Dr) 324 mg PO DAILY [facility] Last Admin: 08/09/24 09:38 Dose: 324 mg Documented By: SHAE Furosemide (Furosemide 40 Mg/4 Ml Vial) 40 mg IVPUSH BID@0900,1800 [facility]; Protocol Last Admin: 08/10/24 10:30 Dose: 40 mg Documented By: POLLO Gabapentin (Gabapentin 100 Mg Capsule) 100 mg PO BEDTIME [facility] Last Admin: 08/09/24 20:46 Dose: 100 mg Documented By: CAMILO Glucose (Glucose Gel 15 Gm Gel..Gram.) 15 gm PO Q15M PRN; Protocol PRN Reason: per Hypoglycemia Standing Ord. Guaifenesin/Dextromethorphan (Guaifenesin Dm 100/10/5 Ml 5 Ml Syrup) 5 ml PO Q6H PRN PRN Reason: Cough Last Admin: 08/10/24 10:42 Dose: 5 ml Documented By: POLLO Hydralazine HCl (Hydralazine Hcl 10 Mg Tablet) 10 mg PO TID [facility]; Protocol Last Admin: 08/10/24 10:31 Dose: 10 mg Documented By: POLLO Doxycycline Hyclate 100 mg/ (Sodium Chloride) 250 mls @ 166.67 mls/hr IV Q12H [facility] Last Infusion: 08/10/24 02:43 Dose: Infused Documented By: CAMILO Insulin Human Lispro (Insulin Lispro 100 Unit/Ml 3 Ml Vial) 0 unit SUBCUT QIDACHS [facility]; Protocol Last Admin: 08/10/24 09:26 Dose: Not Given Documented By: POLLO Non-Admin Reason: No Insulin Coverage Iron Sucrose (Iron Sucrose Complex 200 Mg/10 Ml Vial) 200 mg IVPUSH DAILY [facility] Stop: 08/15/24 08:59 Last Admin: 08/10/24 10:31 Dose: 200 mg Documented By: POLLO Magnesium Hydroxide (Milk Of Magnesia 30 Ml Oral.Susp) 30 ml PO DAILY PRN PRN Reason: Constipation Last Admin: 08/07/24 07:28 Dose: 30 ml Documented By: LIA Melatonin (Melatonin 3 Mg Tablet) 6 mg PO BEDTIME PRN PRN Reason: Insomnia Metoprolol Succinate (Metoprolol Succinate Er 25 Mg Tab.Er.24h) 25 mg PO DAILY [facility]; Protocol Last Admin: 08/10/24 10:31 Dose: 25 mg Documented By: POLLO Ondansetron HCl (Ondansetron Hcl 4 Mg/2 Ml Vial) 4 mg IVPUSH Q8H PRN PRN Reason: Nausea and Vomiting Last Admin: 08/09/24 02:13 Dose: 4 mg Documented By: CELESTE Pantoprazole Sodium (Pantoprazole Sodium 40 Mg/10 Ml Vial) 40 mg IVPUSH BID@0630,1630 [facility] Last Admin: 08/10/24 06:23 Dose: 40 mg Documented By: CAMILO Sodium Chloride (0.9 % Sodium Chloride Flush 3 Ml Syringe) 3 ml [facility]FLUSH [facility] Last Admin: 08/10/24 10:31 Dose: 3 ml Documented By: POLLO Labs 08/09/24 07:15 08/09/24 07:11 Labs: Laboratory Results - last 24 hr 08/09/24 08/09/24 08/09/24 11:26 16:25 20:13 POC Glucose 112 122 H Urine Color Urine Appearance Urine pH Ur Specific [place] Urine Protein Urine Glucose (UA) Urine Ketones Urine Blood Urine Nitrite Ur Leukocyte Esterase Urine RBC Urine WBC Ur Squamous Epith Cells Urine Bacteria Hyaline Casts Blood Type A Positive Antibody Screen NEGATIVE Crossmatch See Detail 08/10/24 08/10/24 08/10/24 03:29 07:29 07:36 POC Glucose 114 143 H Urine Color Yellow Urine Appearance Cloudy Urine pH 5.5 Ur Specific [place] 1.020 Urine Protein >=1000 (4+) H Urine Glucose (UA) Negative Urine Ketones Trace Urine Blood Large (3+) H Urine Nitrite Negative Ur Leukocyte Esterase Small (1+) H Urine RBC >20 H Urine WBC 21-50 H Ur Squamous Epith Cells 3-5 Urine Bacteria None Seen Hyaline Casts 3-5 Blood Type Antibody Screen Crossmatch Microbiology Microbiology Results: Microbiology 08/09/24 03:07 Blood Culture - Preliminary Blood - Venous No growth after 24 hours. 08/09/24 03:07 Blood Culture - Preliminary Blood - Venous No growth after 24 hours. Assessment and Plan (1) Parainfluenza: Status: Acute (2) Iron deficiency: Status: Acute (3) Acute kidney injury superimposed on chronic kidney disease: Status: Acute (4) Hematemesis: Status: Acute (5) Acute exacerbation of CHF (congestive heart failure): Status: Acute Plan This is a 54-year-old Armenian-speaking female with pertinent history of chronic combined systolic and diastolic congestive heart failure, chronic hypoxemic respiratory failure due to COPD on 2-3 L supplemental oxygen, hypertension, insulin-dependent diabetes mellitus, gastroesophageal reflux disease, mixed hyperlipidemia, CKD stage 3 who presents to the emergency department for evaluation of blood in vomitus. Pneumonia/parainfluenza virus spiked fever overnight (08/08) repeat cxr concerning for pneumonia, started on ceftriaxone, doxycycline 08/09 Lactic acid normal. elevated creatinine due to ckd/volume not due to sepsis Possible viral with bacterial superinfection. blood cultures neg after 24hrs Symptomatic management Acute on Chronic combined systolic and diastolic congestive heart failure EF 45-50% with impaired relaxation overall volume overloaded; imaging with anasarca, pleural effusions Is&Os not accurate but significant improvement in leg edema, repeat cxr with small effusions transition from lasix drip to iv push lasix 40 bid as creatinine is trending up cardiology following follow BMP Pleural effusion h/o recurrent pleural effusions. has had thoracentesis in the past repeat cxr with improving effusions Acute GI bleed episode of hemetemesis x1 (reason for admission), no further overt bleeding H/H improved after blood transfusion initially but is downtrending again Seen by GI, has declined EGD continue empiric PPI plan for procrit this am, 1U rbc this afternoon IV iron starting in am follow H/H Vomiting. Resolved no further vomiting reported. denies abdominal pain IV ppi, antiemetics abdominal exam benign but initial imaging with possible ileus resolve, advance to full diet Acute kidney injury on CKD stage 3 due to tubular injury. creatinine trending up lasix drip changed to IV push nephrology following Follow BMP Acute hypokalemia replaced and improved hold Lokelma for now Chronic hypoxemic respiratory failure due to COPD Continue baseline supplemental oxygen and home inhalers Insulin-dependent diabetes mellitus 2 lantus on hold for hypoglycemia, normal POCs monitor POCs with diet advancement, may need to resume lantus (on 10U at baseline) SSI, POCs HTN continue norvasc, metoprolol, hydralzine DVT prophylaxis: Mechanical due to anemia/possible GI bleed DNI Requires ongoing inpatient stay for close monitoring of kidney function, H&H, hemodynamics, electrolytes (as above), IV lasix, close monitoring which is not possible in a lesser acute setting Quality Stroke Does the patient have a stroke diagnosis?: No VTE Prior VTE?: No VTE Risk Level:: Medical - moderate - high VTE Device Contraindication: N/A - Device Ordered VTE Drug Contraindication: Treatment Not Indicated
[2024-08-10 11:31] LABS: Glucose, Whole Blood 160 mg/dL (60-115)
--- NOTE | 2024-08-10 14:27 | MHC.CM.PN ---
Per rounds, pt. is not ready to DC, DCP is to return home where she lives with her son and has [facility]. CM to follow for DC needs.
[2024-08-10 16:01] LABS: Glucose, Whole Blood 158 mg/dL (60-115)
[2024-08-10] MEDS: Insulin Lispro 100 UNIT/ML 3 ML VIAL SUBCUT (16:38)
[2024-08-10 20:28] LABS: Glucose, Whole Blood 126 mg/dL (60-115)
[2024-08-10] MEDS: Gabapentin 100 MG CAPSULE PO (22:27)
[2024-08-11] VITALS (8 sets, daily range): BP systolic 141–156; BP diastolic 63–74; PULSE 80–90; RESP 14–20; TEMP 36.6–37.2; O2SAT 88–96
[2024-08-11] MEDS: Doxycycline Hyclate 100 MG in 0.9 % Sodium Chloride 250 ML 166.67 MG IV (02:35)
[2024-08-11] MEDS: cefTRIAXone sodium 1 GM VIAL IVPUSH (02:35)
[2024-08-11] MEDS: Pantoprazole Sodium 40 MG/10 ML VIAL IVPUSH (05:58)
--- NOTE | 2024-08-11 07:46 | HE.PHANOTE ---
DOXY IV TO PO SWITCH PATIENT MEETS PROTOCOL FOR IV TO PO CONVERSION. DOXY 100MG IV SWITCH TO PO NEXT DOSE 1800
[2024-08-11 08:02] LABS: Glucose, Whole Blood 98 mg/dL (60-115)
[2024-08-11] MEDS: hydrALAZINE HCl 10 MG TABLET PO ×3 (09:27→21:05)
[2024-08-11] MEDS: Iron Sucrose Complex 200 MG/10 ML VIAL IVPUSH (09:27)
[2024-08-11] MEDS: amLODIPine Besylate 10 MG TABLET PO (09:27)
[2024-08-11] MEDS: Metoprolol Succinate ER 25 MG TAB.ER.24H PO (09:27)
[2024-08-11] MEDS: Furosemide 40 MG/4 ML VIAL IVPUSH ×2 (09:28→17:56)
[2024-08-11] MEDS: 0.9 % Sodium Chloride Flush 3 ML SYRINGE IVFLUSH ×3 (09:28→21:07)
[2024-08-11 11:20] LABS: Glucose, Whole Blood 108 mg/dL (60-115)
[2024-08-11 15:48] LABS: Anion Gap 13 (12-20); Blood Urea Nitrogen 51 mg/dL (9-16); Calcium 8.4 mg/dL (8.4-10.2); Carbon Dioxide 24 mmol/L (22-29); Chloride 102 mmol/L (96-108); Creatinine Clr Calc Pharmacy 17.7; Estimated Glomerular Filt Rate 13; Glucose Random 138 mg/dL (60-115); Potassium 3.9 mmol/L (3.3-5.1); Sodium 135 mmol/L (135-145)
[2024-08-11 16:05] LABS: B Type Natriuretic Peptide 1059 pg/mL (<100)
[2024-08-11 16:20] LABS: Glucose, Whole Blood 149 mg/dL (60-115)
[2024-08-11] MEDS: Doxycycline Monohydrate 100 MG CAPSULE PO (17:57)
--- NOTE | 2024-08-11 18:11 | P.PNNP_ITS ---
Subjective Subjective Date of Service: 08/11/24 Interval history: Seen and examined this morning . Events noted. All recent data reviewed Physical Exam 2 Vital Signs: Vital Signs: Last Vital Signs Temp 98.7 F 08/11/24 15:19 Pulse 82 08/11/24 15:19 Resp 20 08/11/24 15:19 BP 143/74 H 08/11/24 17:56 Pulse Ox 88 L 08/11/24 15:53 O2 Del Method Nasal Cannula 08/11/24 15:19 O2 Flow Rate 2 08/11/24 15:19 BMI result Body Mass Index 22.6 Const: General: no acute distress Orientation/consciousness: patient oriented x3 Eyes: EOM: EOMs intact bilaterally Resp: Auscultation: diminished lung sounds Cardio: Rate: regular rate GI: Palpation (GI): Soft to palpation Neuro: General: patient oriented x3 Objective Data Labs 08/09/24 07:15 08/11/24 15:03 Labs: Laboratory Results - last 24 hr 08/10/24 08/11/24 08/11/24 20:25 07:46 11:14 Sodium Potassium Chloride Carbon Dioxide Anion Gap BUN Creatinine Estim Creat Clear Calc Estimated GFR POC Glucose 126 H 98 108 Random Glucose Calcium B-Natriuretic Peptide 08/11/24 08/11/24 15:03 16:16 Sodium 135 Potassium 3.9 Chloride 102 Carbon Dioxide 24 Anion Gap 13 BUN 51 H Creatinine 3.61 H Estim Creat Clear Calc 17.7 Estimated GFR 13 POC Glucose 149 H Random Glucose 138 H Calcium 8.4 B-Natriuretic Peptide 1059 H Microbiology Microbiology Results: Microbiology 08/10/24 Unknown Urine clean catch - Clean Catch Midstream Urine Culture - Final 08/09/24 03:07 Blood - Venous Blood Culture - Preliminary No growth after 48 hours. 08/09/24 03:07 Blood - Venous Blood Culture - Preliminary No growth after 48 hours. Procedures Date of Service Date of Service: 08/11/24 Assessment & Plan Assessment and plan (1) Acute kidney injury superimposed on chronic kidney disease: Status: Acute Plan DILLON due to tubular injury; Renal functions fairly stable Vol status better. Shall continue current dose of lasix Had PRBC & EPO. Iron as ordered No reason to suspect GN/AIN. UO OK; No indication for HD yet C/W rest of current supportive management for now Progress Note: Quality Stroke Does the patient have a stroke diagnosis?: No
[2024-08-11 20:58] LABS: Glucose, Whole Blood 169 mg/dL (60-115)
[2024-08-11] MEDS: Gabapentin 100 MG CAPSULE PO (21:05)
[2024-08-11] MEDS: Insulin Lispro 100 UNIT/ML 3 ML VIAL SUBCUT (21:05)
[2024-08-11] MEDS: guaiFENesin DM 100/10/5 ML 5 ML SYRUP PO (21:07)
[2024-08-12] VITALS (8 sets, daily range): BP systolic 136–156; BP diastolic 60–75; PULSE 74–81; RESP 15–18; TEMP 36.5–37; O2SAT 92–97
[2024-08-12] MEDS: cefTRIAXone sodium 1 GM VIAL IVPUSH (02:10)
[2024-08-12] MEDS: Doxycycline Monohydrate 100 MG CAPSULE PO ×2 (05:54→16:20)
[2024-08-12 07:17] LABS: Glucose, Whole Blood 86 mg/dL (60-115)
[2024-08-12] MEDS: Furosemide 40 MG/4 ML VIAL IVPUSH ×2 (07:57→16:19)
[2024-08-12] MEDS: Iron Sucrose Complex 200 MG/10 ML VIAL IVPUSH (07:57)
[2024-08-12] MEDS: Metoprolol Succinate ER 25 MG TAB.ER.24H PO (07:57)
[2024-08-12] MEDS: amLODIPine Besylate 10 MG TABLET PO (07:58)
[2024-08-12] MEDS: hydrALAZINE HCl 10 MG TABLET 20 MG PO ×3 (07:58→21:45)
[2024-08-12] MEDS: 0.9 % Sodium Chloride Flush 3 ML SYRINGE IVFLUSH ×3 (08:01→21:48)
--- NOTE | 2024-08-12 10:19 | P.PNNP_ITS ---
Subjective Subjective Date of Service: 08/12/24 Interval history: Seen and examined this morning . Events noted. All recent data reviewed Physical Exam 2 Vital Signs: Vital Signs: Last Vital Signs Temp 98.2 F 08/12/24 07:24 Pulse 79 08/12/24 07:24 Resp 15 08/12/24 07:24 BP 156/60 H 08/12/24 07:24 Pulse Ox 96 08/12/24 07:24 O2 Del Method Nasal Cannula 08/12/24 07:24 O2 Flow Rate 2 08/12/24 07:24 BMI result Body Mass Index 22.6 Const: General: no acute distress Orientation/consciousness: patient oriented x3 Eyes: EOM: EOMs intact bilaterally Neck: Neck: Yes supple Resp: Auscultation: diminished lung sounds Cardio: Rate: regular rate GI: Palpation (GI): Soft to palpation Neuro: General: patient oriented x3 Objective Data Labs 08/09/24 07:15 08/11/24 15:03 Labs: Laboratory Results - last 24 hr 08/11/24 08/11/24 08/11/24 11:14 15:03 16:16 Sodium 135 Potassium 3.9 Chloride 102 Carbon Dioxide 24 Anion Gap 13 BUN 51 H Creatinine 3.61 H Estim Creat Clear Calc 17.7 Estimated GFR 13 POC Glucose 108 149 H Random Glucose 138 H Calcium 8.4 B-Natriuretic Peptide 1059 H 08/11/24 08/12/24 20:54 07:02 Sodium Potassium Chloride Carbon Dioxide Anion Gap BUN Creatinine Estim Creat Clear Calc Estimated GFR POC Glucose 169 H 86 Random Glucose Calcium B-Natriuretic Peptide Microbiology Microbiology Results: Microbiology 08/10/24 Unknown Urine clean catch - Clean Catch Midstream Urine Culture - Final 08/09/24 03:07 Blood - Venous Blood Culture - Preliminary No growth after 48 hours. 08/09/24 03:07 Blood - Venous Blood Culture - Preliminary No growth after 48 hours. Procedures Date of Service Date of Service: 08/12/24 Assessment & Plan Assessment and plan (1) Acute kidney injury superimposed on chronic kidney disease: Status: Acute Plan DILLON due to tubular injury; Renal functions had been fairly stable Vol status better. Shall continue current dose of lasix Had PRBC & EPO. Iron as ordered No reason to suspect GN/AIN. UO OK; No indication for HD yet C/W rest of current supportive management for now Time Spent With Patient Time: . Progress Note: Quality Stroke Does the patient have a stroke diagnosis?: No
--- NOTE | 2024-08-12 10:31 | PM.PNCARD ---
Subjective Subjective Date of Service: 08/12/24 Interval history: Asked by hospitalist to review the case. She is admitted with parainfluenza virus and pneumonia along with congestive heart failure. She was on Lasix drip previously. She is saying her breathing is stable. She still has significant edema and JVD. Physical Exam Vital Signs: Last Vital Signs Temp 98.2 F 08/12/24 07:24 Pulse 79 08/12/24 07:24 Resp 15 08/12/24 07:24 BP 156/60 H 08/12/24 07:24 Pulse Ox 96 08/12/24 07:24 O2 Del Method Nasal Cannula 08/12/24 07:24 O2 Flow Rate 2 08/12/24 07:24 BMI result Body Mass Index 22.6 GENERAL APPEARANCE: in no acute distress, pleasant. NECK: no carotid bruit, ++ jugular venous distention. SKIN: no suspicious lesions, warm and dry. HEART: no murmurs, regular rate and rhythm. LUNGS: Bilateral mild wheezes and rhonchi. ABDOMEN: soft, nontender. EXTREMITIES: 1 to 2+ edema. PERIPHERAL PULSES: equal. NEUROLOGIC: No gross deficits, AAO X 3 Objective Labs and Meds 08/09/24 07:15 08/11/24 15:03 Lab results: Laboratory Results - last 24 hr 08/11/24 08/11/24 08/11/24 11:14 15:03 16:16 Sodium 135 Potassium 3.9 Chloride 102 Carbon Dioxide 24 Anion Gap 13 BUN 51 H Creatinine 3.61 H Estim Creat Clear Calc 17.7 Estimated GFR 13 POC Glucose 108 149 H Random Glucose 138 H Calcium 8.4 B-Natriuretic Peptide 1059 H 08/11/24 08/12/24 20:54 07:02 Sodium Potassium Chloride Carbon Dioxide Anion Gap BUN Creatinine Estim Creat Clear Calc Estimated GFR POC Glucose 169 H 86 Random Glucose Calcium B-Natriuretic Peptide Progress Note: A&P Assessment and plan (1) Acute exacerbation of CHF (congestive heart failure): Status: Acute Plan [age] year female with acute exacerbation of congestive heart failure in the setting of pneumonia/parainfluenza. EF is 45-50%. She also has advanced CKD and had GI blood loss with hematemesis with low hemoglobin. Aspirin has been held appropriately. Overall she appears to be hypervolemic. Agree with continuing IV diuretics for now with close monitoring of electrolytes. She will also get repeat chest x-ray today to see if there is any signs of effusion/congestive heart failure. Time Spent With Patient Time: Total time managing care of this patient today ____ minutes. Progress Note: Quality Stroke Does the patient have a stroke diagnosis?: No Procedures Date of Service Date of Service: 08/12/24
[2024-08-12 11:03] LABS: Glucose, Whole Blood 126 mg/dL (60-115)
--- NOTE | 2024-08-12 12:11 | HO.PM.IMPN ---
Subjective Subjective Date of Service: 08/12/24 Interval History: Seen and examined this morning Follow-up for CHF, DILLON +cough Review of Systems Review of Systems: Yes all other systems are reviewed and are negative Constitutional Constitutional: Denies chills and Reports fever(s) Cardiovascular Cardiovascular: Denies chest pain and Denies palpitations Respiratory Respiratory: Reports cough Gastrointestinal Gastrointestinal: Denies abdominal pain, Denies nausea and Denies vomiting Endocrine Endocrine: Denies palpitations Physical Exam Vital Signs: Vital Signs: Last Vital Signs Temp 98.1 F 08/12/24 11:08 Pulse 74 08/12/24 11:08 Resp 15 08/12/24 11:08 BP 136/63 08/12/24 11:08 Pulse Ox 96 08/12/24 11:08 O2 Del Method Nasal Cannula 08/12/24 11:08 O2 Flow Rate 2 08/12/24 11:08 BMI result Body Mass Index 22.6 Appearing in no acute distress lung sounds rales heart regular rate rhythm, clear S1, S2 positive bowel sounds, abdomen is soft, nontender neuro patient is alert x3, no focal deficits Objective Data Active Medications Acetaminophen (Acetaminophen 325 Mg Tablet) 650 mg PO Q6H PRN PRN Reason: Pain, Mild 1-3,fever,headache Last Admin: 08/08/24 23:47 Dose: 650 mg Documented By: CELESTE Albuterol/Ipratropium (Albuterol/Iprat 2.5/0.5mg 3 Ml Ampul.Neb) 3 ml INHALE RQ6H WHILE AWAKE PRN PRN Reason: Shortness of Breath/Wheezing Last Admin: 08/10/24 22:57 Dose: 3 ml Documented By: NENO Amlodipine Besylate (Amlodipine Besylate 10 Mg Tablet) 10 mg PO DAILY [facility]; Protocol Last Admin: 08/12/24 07:58 Dose: 10 mg Documented By: POLLO Calcium Carbonate (Calcium Carbonate 750 Mg Tab.Chew) 750 mg PO Q4H PRN PRN Reason: Heartburn Last Admin: 08/08/24 01:29 Dose: 750 mg Documented By: CELESTE Ceftriaxone Sodium (Ceftriaxone Sodium 1 Gm Vial) 1 gm IVPUSH Q24H [facility] Last Admin: 08/12/24 02:10 Dose: 1 gm Documented By: MACO Dextrose (Dextrose 50 % 25 Gm/50 Ml Syringe) 25 gm IVPUSH Q15M PRN; Protocol PRN Reason: per Hypoglycemia Standing Ord. Last Admin: 08/06/24 06:47 Dose: 25 gm Documented By: CARY Doxycycline Monohydrate (Doxycycline Monohydrate 100 Mg Capsule) 100 mg PO Q12H [facility] Last Admin: 08/12/24 05:54 Dose: 100 mg Documented By: MACO Ferrous Sulfate (Ferrous Sulfate 324 Mg Tablet.Dr) 324 mg PO DAILY [facility] Last Admin: 08/09/24 09:38 Dose: 324 mg Documented By: SHAE Furosemide (Furosemide 40 Mg/4 Ml Vial) 40 mg IVPUSH BID@0900,1800 [facility]; Protocol Last Admin: 08/12/24 07:57 Dose: 40 mg Documented By: POLLO Gabapentin (Gabapentin 100 Mg Capsule) 100 mg PO BEDTIME [facility] Last Admin: 08/11/24 21:05 Dose: 100 mg Documented By: MACO Glucose (Glucose Gel 15 Gm Gel..Gram.) 15 gm PO Q15M PRN; Protocol PRN Reason: per Hypoglycemia Standing Ord. Guaifenesin/Dextromethorphan (Guaifenesin Dm 100/10/5 Ml 5 Ml Syrup) 5 ml PO Q6H PRN PRN Reason: Cough Last Admin: 08/11/24 21:07 Dose: 5 ml Documented By: MACO Hydralazine HCl (Hydralazine Hcl 10 Mg Tablet) 20 mg PO TID [facility]; Protocol Last Admin: 08/12/24 07:58 Dose: 20 mg Documented By: POLLO Insulin Human Lispro (Insulin Lispro 100 Unit/Ml 3 Ml Vial) 0 unit SUBCUT QIDACHS [facility]; Protocol Last Admin: 08/12/24 08:01 Dose: Not Given Documented By: POLLO Non-Admin Reason: No Insulin Coverage Iron Sucrose (Iron Sucrose Complex 200 Mg/10 Ml Vial) 200 mg IVPUSH DAILY [facility] Stop: 08/15/24 08:59 Last Admin: 08/12/24 07:57 Dose: 200 mg Documented By: POLLO Magnesium Hydroxide (Milk Of Magnesia 30 Ml Oral.Susp) 30 ml PO DAILY PRN PRN Reason: Constipation Last Admin: 08/07/24 07:28 Dose: 30 ml Documented By: LIA Melatonin (Melatonin 3 Mg Tablet) 6 mg PO BEDTIME PRN PRN Reason: Insomnia Metoprolol Succinate (Metoprolol Succinate Er 25 Mg Tab.Er.24h) 25 mg PO DAILY [facility]; Protocol Last Admin: 08/12/24 07:57 Dose: 25 mg Documented By: POLLO Ondansetron HCl (Ondansetron Hcl 4 Mg/2 Ml Vial) 4 mg IVPUSH Q8H PRN PRN Reason: Nausea and Vomiting Last Admin: 08/09/24 02:13 Dose: 4 mg Documented By: CELESTE Sodium Chloride (0.9 % Sodium Chloride Flush 3 Ml Syringe) 3 ml IVFLUSH QSHIFT [facility] Last Admin: 08/12/24 08:01 Dose: 3 ml Documented By: POLLO Labs 08/09/24 07:15 08/11/24 15:03 Labs: Laboratory Results - last 24 hr 08/11/24 08/11/24 08/11/24 15:03 16:16 20:54 Anion Gap 13 Estim Creat Clear Calc 17.7 Estimated GFR 13 POC Glucose 149 H 169 H Random Glucose 138 H Calcium 8.4 B-Natriuretic Peptide 1059 H 08/12/24 08/12/24 07:02 11:00 Anion Gap Estim Creat Clear Calc Estimated GFR POC Glucose 86 126 H Random Glucose Calcium B-Natriuretic Peptide Microbiology Microbiology Results: Microbiology 08/10/24 Unknown Urine Culture - Final Urine clean catch - Clean Catch Midstream Assessment and Plan (1) Parainfluenza: Status: Acute (2) Iron deficiency: Status: Acute (3) Acute kidney injury superimposed on chronic kidney disease: Status: Acute (4) Hematemesis: Status: Acute (5) Acute exacerbation of CHF (congestive heart failure): Status: Acute Plan 54-year-old Malian-speaking female with pertinent history of chronic combined systolic and diastolic congestive heart failure, chronic hypoxemic respiratory failure due to COPD on 2-3 L supplemental oxygen, hypertension, insulin-dependent diabetes mellitus, gastroesophageal reflux disease, mixed hyperlipidemia, CKD stage 3 who presents to the emergency department for evaluation of blood in vomitus. Acute on Chronic combined systolic and diastolic congestive heart failure EF 45-50% with impaired relaxation overall volume overloaded; imaging with anasarca, pleural effusions Is&Os not accurate but significant improvement in leg edema, repeat cxr with small effusions transitioned from lasix drip to IV push lasix 40 bid cardiology following>still volume overloaded, continue diuresis follow BMP Pneumonia/parainfluenza virus repeat cxr concerning for pneumonia, started on ceftriaxone, doxycycline 4/6 Lactic acid normal. elevated creatinine due to ckd/volume not due to sepsis Possible viral with bacterial superinfection. blood cultures neg Symptomatic management Pleural effusion h/o recurrent pleural effusions. has had thoracentesis in the past repeat cxr with improving effusions Acute GI bleed episode of hemetemesis x1 (reason for admission), no further overt bleeding H/H improved after blood transfusion initially but is downtrending again Seen by GI, has declined EGD continue empiric PPI s/p procrit, PRBC x1= IV iron follow H/H, if lower in am consider tx Vomiting. Resolved no further vomiting reported. denies abdominal pain IV ppi, antiemetics abdominal exam benign but initial imaging with possible ileus resolve, advance to full diet Acute kidney injury on CKD stage 3 due to tubular injury. creatinine trending up lasix drip changed to IV push nephrology following Follow BMP Acute hypokalemia replaced and improved hold Lokelma for now Chronic hypoxemic respiratory failure due to COPD Continue baseline supplemental oxygen and home inhalers Insulin-dependent diabetes mellitus 2 lantus on hold for hypoglycemia, normal POCs monitor POCs with diet advancement, may need to resume lantus (on 10U at baseline) SSI, POCs HTN continue norvasc, metoprolol, hydralzine DVT prophylaxis: Mechanical due to anemia/possible GI bleed DNI Requires ongoing inpatient stay for close monitoring of kidney function, H&H, hemodynamics, electrolytes (as above), IV lasix, close monitoring which is not possible in a lesser acute setting Quality Stroke Does the patient have a stroke diagnosis?: No VTE Prior VTE?: No VTE Risk Level:: Medical - moderate - high VTE Device Contraindication: N/A - Device Ordered VTE Drug Contraindication: Treatment Not Indicated
--- NOTE | 2024-08-12 15:01 | MHC.CM.PN ---
PT rec. that pt. go to [facility] following hosp stay. CM spoke to pt today alone with manager system to ask her choice, and she said in [place]. Referrals out.
[2024-08-12 16:20] LABS: Glucose, Whole Blood 138 mg/dL (60-115)
[2024-08-12 20:36] LABS: Glucose, Whole Blood 180 mg/dL (60-115)
[2024-08-12] MEDS: Gabapentin 100 MG CAPSULE PO (21:45)
[2024-08-12] MEDS: Insulin Lispro 100 UNIT/ML 3 ML VIAL SUBCUT (21:45)
[2024-08-12] MEDS: Albuterol/Iprat 2.5/0.5MG 3 ML AMPUL.NEB INHALE (21:52)
[2024-08-13] VITALS (9 sets, daily range): BP systolic 142–168; BP diastolic 67–76; PULSE 77–84; RESP 14–16; TEMP 36.3–37.3; O2SAT 93–98
[2024-08-13] MEDS: Doxycycline Monohydrate 100 MG CAPSULE PO ×2 (01:30→16:37)
[2024-08-13] MEDS: cefTRIAXone sodium 1 GM VIAL IVPUSH (05:32)
--- NOTE | 2024-08-13 07:00 | CA_ITS ---
Transthoracic Echocardiogram Patient (Last, First, Middle): Queta Loya, Gender: Female Date of : 1970 Age: 54 Procedure Date: 08/13/2024 Procedure Type: Transthoracic Echocardiogram Location: [facility] [place] Height: 172.72 cm Weight: 67.13 kg BSA: 1.80 m2 Heart Rate: bpm BP: 150 / 70 mmHg Statistics Manager: TO Referring MD: Jade Maldonado NP Symptoms: pulmonary edema Study Quality: Adequate ECG Rhythm: Sinus Conclusions: - Normal left ventricular cavity size. There is normal left ventricular wall thickness. The left ventricular systolic function is mildly decreased. The visually estimated ejection fraction is between 40-45%. - Elevated filling pressures. - Normal right ventricular cavity size and systolic function. - There is mild mitral valve regurgitation. - There is a large left sided pleural effusion. Findings Left Ventricle Normal left ventricular cavity size. There is normal left ventricular wall thickness. The left ventricular systolic function is mildly decreased. The visually estimated ejection fraction is between 40-45%. Abnormal diastolic function is noted. Spectral Doppler is indicative of a pseudonormal filling pattern. Elevated filling pressures. Right Ventricle Normal right ventricular cavity size and systolic function. Atria The left atrium is normal in size. The right atrium is normal in size. Aortic Valve Normal aortic valve structure and function. There is no aortic valve stenosis. There is no aortic valve regurgitation. Mitral Valve The mitral valve appears normal. There is mild mitral valve regurgitation. There is no mitral valve stenosis. Pulmonic Valve The pulmonic valve is likely normal. Tricuspid Valve Normal tricuspid valve structure. There is trace tricuspid valve regurgitation. Tricuspid regurgitation envelope is inadequate for calculation of right ventricular systolic pressure. Normal right atrial pressure. Great Vessels All visible segments of the aorta are normal in size. The visualized portions of the pulmonary artery and branches are normal. Venous The inferior vena cava is normal in size and collapses greater than 50% with inspiration. Pericardium/Pleural There is no evidence of pericardial effusion. There is a large left sided pleural effusion. Prior Study Comparison Changes noted compared to prior study dated: 02/10/2024. Elevated filling pressures. Large left pleural effusion. Measurements 2D Linear Measurements IVSd: 0.79 0.6-0.9/0.6-1.0 cm LVIDd: 4.93 3.9-5.3/4.2-5.9 cm LVIDd Index: 2.74 2.4-3.2/2.2-3.1 cm/m2 LVIDs: 4.04 2.0-3.6 cm LVPWd: 0.79 0.7-1.1 cm LA Diam: 3.60 2.7-3.8/3.0-4.0 cm LAIDs Index: 2.00 1.5-2.3 cm/m2 LV Mass: 162.18 67-162/88-224 g LV Mass Index: 90.10 43-95/49-115 g/m2 LVOT Diam: 2.00 3.0+(-)1.3 cm 2D Systolic Function EF 4C: 45.70 >55% EF 2C: 45.20 >55% EF BiP: 45.10 >55% Mitral Valve MV Pk E: 1.23 MV PK A: 1.08 MV Decel Time: 170.00 E/A: 1.10 E'Lateral: 6.09 E'Medial: 4.24 E/E' Med: 29.00 E/E' Lat: 20.20 PHT: 50.00 MVA PHT: 4.40 Decel Letcher: 7.20 Aortic Valve AoV Pk Nathan: 1.35 AoV Mn Nathan: 0.98 AoV VTI: 0.32 AoV Pk Grad: 7.00 Aov Mn Grad: 4.00 MARY JANE Cont.VTI: 1.92 LVOT LVOT Pk Nathan: 0.79 LVOT Mn Nathan: 0.60 LVOT VTI: 0.19 LVOT Pk Grad: 2.00 LVOT Mn Grad: 2.00 LVOT Diam: 2.00 LVOT Area: 3.14 Diastolic Function MV Pk E: 1.23 MV Pk A: 1.08 E/A: 1.10 E'Medial: 4.24 E/E' Med: 29.00 E' Laterial: 6.09 E/E' Lat: 20.20 Right Ventricle TAPSE (mm): 17.90 TVS' Nathan: 11.20 Tricuspid Valve TR Pk Nathan: 2.04 TR Pk Grad: 17.00 Great Vessels Aorta Sinus of Valsalva: 2.59 2.0-3.5 cm Ao Asc: 2.40 2.1-3.4 cm Updated in Other Vendor System with Status of Final Elpidio Cortez MD electronically signed on 08/13/2024 8:18:09 PM with status of Final
[2024-08-13 07:25] LABS: Glucose, Whole Blood 125 mg/dL (60-115)
[2024-08-13] MEDS: hydrALAZINE HCl 10 MG TABLET 20 MG PO ×3 (09:22→21:39)
[2024-08-13] MEDS: Furosemide 40 MG/4 ML VIAL IVPUSH (09:22)
[2024-08-13] MEDS: amLODIPine Besylate 10 MG TABLET PO (09:22)
[2024-08-13] MEDS: Iron Sucrose Complex 200 MG/10 ML VIAL IVPUSH (09:22)
[2024-08-13] MEDS: Metoprolol Succinate ER 25 MG TAB.ER.24H PO (09:22)
[2024-08-13] MEDS: 0.9 % Sodium Chloride Flush 3 ML SYRINGE IVFLUSH ×2 (09:23→21:44)
[2024-08-13 09:30] LABS: Hematocrit 29.9 % (37.0-47.0); Mean Corpuscular HGB Conc 33.4 g/dl (31.0-35.0); Mean Corpuscular Hemoglobin 29.9 pg (27.0-33.0); Mean Corpuscular Volume 89.5 fL (80.0-98.0); Mean Platelet Volume 9.3 fL (9.4-12.3); NRBC Pct Auto 0.6 /100WBC (0.0-0.2); Platelet Count 170 X10*3/uL (160-400); Red Blood Count 3.34 X10*6/uL (4.20-5.50); White Blood Count 6.5 X10*3/uL (4.8-10.8)
[2024-08-13 09:41] LABS: Anion Gap 15 (12-20); Blood Urea Nitrogen 54 mg/dL (9-16); Calcium 8.6 mg/dL (8.4-10.2); Carbon Dioxide 23 mmol/L (22-29); Chloride 102 mmol/L (96-108); Creatinine Clr Calc Pharmacy 17.2; Estimated Glomerular Filt Rate 13; Glucose Random 109 mg/dL (60-115); Potassium 3.9 mmol/L (3.3-5.1); Sodium 136 mmol/L (135-145)
[2024-08-13 10:56] LABS: Glucose, Whole Blood 159 mg/dL (60-115)
--- NOTE | 2024-08-13 11:13 | MHC.CM.PN ---
Provider informed CM today that pt. informed her that she wants to go home from hosp. and not to [facility]. R[place]ETTA met with pt. and employment specialist/program manager today, and she confirmed this, she said her son is in agreement with her going home and resuming her [facility] services.
--- NOTE | 2024-08-13 13:27 | HO.PM.IMPN ---
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 rig operator Overall patient reports breathing is improved, lower extremity edema worse, reporting leg pain Review of Systems Review of Systems: Yes all other systems are reviewed and are negative Constitutional Constitutional: Denies chills and Denies fever(s) Cardiovascular Cardiovascular: Denies chest pain, Denies palpitations and Denies dyspnea Respiratory Respiratory: Reports cough and Denies dyspnea Endocrine Endocrine: Denies palpitations Physical Exam Vital Signs: Vital Signs: Last Vital Signs Temp 97.8 F 08/13/24 10:47 Pulse 79 08/13/24 10:47 Resp 15 08/13/24 10:47 BP 147/70 H 08/13/24 10:47 Pulse Ox 96 08/13/24 10:47 O2 Del Method Nasal Cannula 08/13/24 10:47 O2 Flow Rate 2 08/13/24 10:47 BMI result Body Mass Index 22.6 Const: Other: tearful General: alert, awake and Physically active Nutritional Appearance: average body habitus Orientation/consciousness: oriented to person and oriented to place Resp: Effort & Inspection: normal respiratory effort, able to speak in complete sentences, no respiratory distress and no use of accessory muscles Cardio: Rate: regular rate GI: Inspection: No distended Palpation (GI): Soft to palpation and nontender Neuro: Other: grossly nonfocal, moves all extremities spontaneously General: oriented to person and oriented to place Extrem: Other: b/l leg edema Objective Data Active Medications Acetaminophen (Acetaminophen 325 Mg Tablet) 650 mg PO Q6H PRN PRN Reason: Pain, Mild 1-3,fever,headache Last Admin: 08/08/24 23:47 Dose: 650 mg Documented By: CELESTE Albuterol/Ipratropium (Albuterol/Iprat 2.5/0.5mg 3 Ml Ampul.Neb) 3 ml INHALE RQ6H WHILE AWAKE PRN PRN Reason: Shortness of Breath/Wheezing Last Admin: 08/12/24 21:52 Dose: 3 ml Documented By: JUMANA Amlodipine Besylate (Amlodipine Besylate 10 Mg Tablet) 10 mg PO DAILY JM; Protocol Last Admin: 08/13/24 09:22 Dose: 10 mg Documented By: SAMMI Calcium Carbonate (Calcium Carbonate 750 Mg Tab.Chew) 750 mg PO Q4H PRN PRN Reason: Heartburn Last Admin: 08/08/24 01:29 Dose: 750 mg Documented By: CELESTE Ceftriaxone Sodium (Ceftriaxone Sodium 1 Gm Vial) 1 gm IVPUSH Q24H [facility] Stop: 08/13/24 23:59 Last Admin: 08/13/24 05:32 Dose: 1 gm Documented By: CELESTE Dextrose (Dextrose 50 % 25 Gm/50 Ml Syringe) 25 gm IVPUSH Q15M PRN; Protocol PRN Reason: per Hypoglycemia Standing Ord. Last Admin: 08/06/24 06:47 Dose: 25 gm Documented By: CARY Doxycycline Monohydrate (Doxycycline Monohydrate 100 Mg Capsule) 100 mg PO Q12H [facility] Stop: 08/13/24 23:59 Last Admin: 08/13/24 01:30 Dose: 100 mg Documented By: CELESTE Ferrous Sulfate (Ferrous Sulfate 324 Mg Tablet.Dr) 324 mg PO DAILY [facility] Last Admin: 08/09/24 09:38 Dose: 324 mg Documented By: SHAE Gabapentin (Gabapentin 100 Mg Capsule) 100 mg PO BEDTIME [facility] Last Admin: 08/12/24 21:45 Dose: 100 mg Documented By: CELESTE Glucose (Glucose Gel 15 Gm Gel..Gram.) 15 gm PO Q15M PRN; Protocol PRN Reason: per Hypoglycemia Standing Ord. Guaifenesin/Dextromethorphan (Guaifenesin Dm 100/10/5 Ml 5 Ml Syrup) 5 ml PO Q6H PRN PRN Reason: Cough Last Admin: 08/11/24 21:07 Dose: 5 ml Documented By: MEL-OSMANZEAide Hydralazine HCl (Hydralazine Hcl 10 Mg Tablet) 20 mg PO TID [facility]; Protocol Last Admin: 08/13/24 09:22 Dose: 20 mg Documented By: SAMMI Furosemide 200 mg/ Sodium (Chloride) 100 mls @ 2.5 mls/hr IVCONT .Q24H [facility] Insulin Human Lispro (Insulin Lispro 100 Unit/Ml 3 Ml Vial) 0 unit SUBCUT QIDACHS [facility]; Protocol Last Admin: 08/13/24 07:26 Dose: Not Given Documented By: SAMMI Non-Admin Reason: No Insulin Coverage Iron Sucrose (Iron Sucrose Complex 200 Mg/10 Ml Vial) 200 mg IVPUSH DAILY [facility] Stop: 08/15/24 08:59 Last Admin: 08/13/24 09:22 Dose: 200 mg Documented By: SAMMI Magnesium Hydroxide (Milk Of Magnesia 30 Ml Oral.Susp) 30 ml PO DAILY PRN PRN Reason: Constipation Last Admin: 08/07/24 07:28 Dose: 30 ml Documented By: LIA Melatonin (Melatonin 3 Mg Tablet) 6 mg PO BEDTIME PRN PRN Reason: Insomnia Metoprolol Succinate (Metoprolol Succinate Er 25 Mg Tab.Er.24h) 25 mg PO DAILY [facility]; Protocol Last Admin: 08/13/24 09:22 Dose: 25 mg Documented By: SAMMI Ondansetron HCl (Ondansetron Hcl 4 Mg/2 Ml Vial) 4 mg IVPUSH Q8H PRN PRN Reason: Nausea and Vomiting Last Admin: 08/09/24 02:13 Dose: 4 mg Documented By: CELESTE Sodium Chloride (0.9 % Sodium Chloride Flush 3 Ml Syringe) 3 ml IVFLUSH QSHIFT [facility] Last Admin: 08/13/24 09:23 Dose: 3 ml Documented By: SAMMI Labs 08/13/24 08:46 08/13/24 08:46 Labs: Laboratory Results - last 24 hr 08/12/24 08/12/24 08/13/24 16:10 20:29 07:20 MCV MCH MCHC RDW Plt Count MPV Absolute Nucleated RBC Nucleated RBC % (auto) Anion Gap Estim Creat Clear Calc Estimated GFR POC Glucose 138 H 180 H 125 H Random Glucose Calcium 08/13/24 08/13/24 08:46 10:52 MCV 89.5 MCH 29.9 MCHC 33.4 RDW 14.0 Plt Count 170 D MPV 9.3 L Absolute Nucleated RBC 0.040 H Nucleated RBC % (auto) 0.6 H Anion Gap 15 Estim Creat Clear Calc 17.2 Estimated GFR 13 POC Glucose 159 H Random Glucose 109 Calcium 8.6 Assessment and Plan (1) Parainfluenza: Status: Acute (2) Iron deficiency: Status: Acute (3) Acute kidney injury superimposed on chronic kidney disease: Status: Acute Plan This is a 54-year-old Tajik-speaking female with pertinent history of chronic combined systolic and diastolic congestive heart failure, chronic hypoxemic respiratory failure due to COPD on 2-3 L supplemental oxygen, hypertension, insulin-dependent diabetes mellitus, gastroesophageal reflux disease, mixed hyperlipidemia, CKD stage 3 who presents to the emergency department for evaluation of blood in vomitus. acue on Chronic combined systolic and diastolic congestive heart failure: EF 45-50% with impaired relaxation remains volume overloaded Is&Os not accurate will put back on lasix drip cardiology following follow BMP Acute kidney injury on CKD stage 3: due to tubular injury. creatinine trending up remains fluid overloaded, d/w nephrology ok to resume lasix drip nephrology following Follow BMP pleural effusion h/o recurrent pleural effusions. has had thoracentesis in the past repeat cxr with improving effusions initially; repeat cxr on 08/11 with b/l moderate to large effusions pneumonia/parainfluenza virus spiked fever overnight (08/08) repeat cxr concerning for pneumonia, started on ceftriaxone, doxycycline 08/09 Lactic acid normal. elevated creatinine due to ckd/volume not due to sepsis Possible viral with bacterial superinfection. RPP positive for parainfluenza Follow blood cultures Symptomatic management Acute GI bleed: episode of hemetemesis x1 (reason for admission), no further overt bleeding H/H improved after blood transfusion but then trended down Seen by GI, has declined EGD continue empiric PPI s/p procrit this am, 1U rbc 08/09 and IV iron x 4 days with improvement in H/H resume baseline po iron vomiting resolved Acute hypokalemia: replaced and improved hold Lokelma for now Chronic hypoxemic respiratory failure due to COPD: Continue baseline supplemental oxygen and home inhalers Insulin-dependent diabetes mellitus: lantus on hold for hypoglycemia, normal POCs monitor POCs with diet advancement, may need to resume lantus (on 10U at baseline) SSI, POCs HTN continue norvasc, metoprolol add low dose hydralzine DVT prophylaxis: Mechanical due to anemia/possible GI bleed DNI dispo - PT rec home with PT vs SNF Requires ongoing inpatient stay for close monitoring of kidney function, H&H, hemodynamics, electrolytes (as above), IV lasix, close monitoring which is not possible in a lesser acute setting Quality Stroke Does the patient have a stroke diagnosis?: No VTE Prior VTE?: No VTE Risk Level:: Medical - moderate - high VTE Device Contraindication: N/A - Device Ordered VTE Drug Contraindication: Treatment Not Indicated
[2024-08-13] MEDS: Furosemide 200 MG in 0.9 % Sodium Chloride 80 ML IVCONT (15:08)
--- NOTE | 2024-08-13 15:36 | PM.PNCARD ---
Subjective Subjective Date of Service: 08/13/24 Interval history: seen and examined at bedside. She is significantly volume overloaded and has been started on Lasix drip. Physical Exam Vital Signs: Last Vital Signs Temp 98.1 F 08/13/24 15:05 Pulse 78 08/13/24 15:05 Resp 14 08/13/24 15:05 BP 150/68 H 08/13/24 15:09 Pulse Ox 95 08/13/24 15:05 O2 Del Method Nasal Cannula 08/13/24 15:05 O2 Flow Rate 2 08/13/24 15:05 BMI result Body Mass Index 22.6 GENERAL APPEARANCE: in no acute distress, pleasant. NECK: no carotid bruit, ++ jugular venous distention. SKIN: no suspicious lesions, warm and dry. HEART: no murmurs, regular rate and rhythm. LUNGS: Bilateral mild wheezes and rhonchi. ABDOMEN: soft, nontender. EXTREMITIES: 2+ edema. PERIPHERAL PULSES: equal. NEUROLOGIC: No gross deficits, AAO X 3 Objective Labs and Meds 08/13/24 08:46 08/13/24 08:46 Lab results: Laboratory Results - last 24 hr 08/12/24 08/12/24 08/13/24 16:10 20:29 07:20 WBC RBC Hgb Hct MCV MCH MCHC RDW Plt Count MPV Absolute Nucleated RBC Nucleated RBC % (auto) Sodium Potassium Chloride Carbon Dioxide Anion Gap BUN Creatinine Estim Creat Clear Calc Estimated GFR POC Glucose 138 H 180 H 125 H Random Glucose Calcium 08/13/24 08/13/24 08:46 10:52 WBC 6.5 RBC 3.34 L D Hgb 10.0 L D Hct 29.9 L D MCV 89.5 MCH 29.9 MCHC 33.4 RDW 14.0 Plt Count 170 D MPV 9.3 L Absolute Nucleated RBC 0.040 H Nucleated RBC % (auto) 0.6 H Sodium 136 Potassium 3.9 Chloride 102 Carbon Dioxide 23 Anion Gap 15 BUN 54 H Creatinine 3.73 H Estim Creat Clear Calc 17.2 Estimated GFR 13 POC Glucose 159 H Random Glucose 109 Calcium 8.6 Progress Note: A&P Assessment and plan (1) Acute exacerbation of CHF (congestive heart failure): Status: Acute Plan [age] year female with acute exacerbation of congestive heart failure in the setting of pneumonia/parainfluenza. EF is 45-50%. She also has advanced CKD and had GI blood loss with hematemesis with low hemoglobin. Aspirin has been held appropriately. Overall she appears to be hypervolemic. She is back on Lasix drip at this point. This should be titrated to keep a close to 2 L negative per day. Can get bolus doses up to 80 mg if she is not making enough urine. Can potentiate with metolazone if required but I think she just needs higher dose of diuretics at this point. Nephrology following along with us. May benefit from some spironolactone and potassium has been stable. Thank you for allowing me to participate in the care of your patient. Please feel free to contact me if you have any questions. Time Spent With Patient Time: Total time managing care of this patient today ____ minutes. Progress Note: Quality Stroke Does the patient have a stroke diagnosis?: No Procedures Date of Service Date of Service: 08/13/24
[2024-08-13 16:02] LABS: Glucose, Whole Blood 173 mg/dL (60-115)
--- NOTE | 2024-08-13 16:23 | P.PNNP_ITS ---
Subjective Subjective Date of Service: 08/13/24 Interval history: Seen and examined this morning; Overall patient reports breathing is improved, lower extremity edema worse; D/W hospitalist Physical Exam 2 Vital Signs: Vital Signs: Last Vital Signs Temp 98.1 F 08/13/24 15:05 Pulse 78 08/13/24 15:05 Resp 14 08/13/24 15:05 BP 150/68 H 08/13/24 15:09 Pulse Ox 95 08/13/24 15:05 O2 Del Method Nasal Cannula 08/13/24 15:05 O2 Flow Rate 2 08/13/24 15:05 BMI result Body Mass Index 22.6 Const: General: no acute distress Orientation/consciousness: patient oriented x3 Eyes: EOM: EOMs intact bilaterally Resp: Auscultation: diminished lung sounds Cardio: Rate: regular rate GI: Palpation (GI): Soft to palpation Neuro: General: patient oriented x3 Objective Data Labs 08/13/24 08:46 08/13/24 08:46 Labs: Laboratory Results - last 24 hr 08/12/24 08/13/24 08/13/24 20:29 07:20 08:46 WBC 6.5 RBC 3.34 L D Hgb 10.0 L D Hct 29.9 L D MCV 89.5 MCH 29.9 MCHC 33.4 RDW 14.0 Plt Count 170 D MPV 9.3 L Absolute Nucleated RBC 0.040 H Nucleated RBC % (auto) 0.6 H Sodium 136 Potassium 3.9 Chloride 102 Carbon Dioxide 23 Anion Gap 15 BUN 54 H Creatinine 3.73 H Estim Creat Clear Calc 17.2 Estimated GFR 13 POC Glucose 180 H 125 H Random Glucose 109 Calcium 8.6 08/13/24 08/13/24 10:52 15:57 WBC RBC Hgb Hct MCV MCH MCHC RDW Plt Count MPV Absolute Nucleated RBC Nucleated RBC % (auto) Sodium Potassium Chloride Carbon Dioxide Anion Gap BUN Creatinine Estim Creat Clear Calc Estimated GFR POC Glucose 159 H 173 H Random Glucose Calcium Microbiology Microbiology Results: Microbiology 08/10/24 Unknown Urine clean catch - Clean Catch Midstream Urine Culture - Final 08/09/24 03:07 Blood - Venous Blood Culture - Preliminary No growth after 48 hours. 08/09/24 03:07 Blood - Venous Blood Culture - Preliminary No growth after 48 hours. Procedures Date of Service Date of Service: 08/13/24 Assessment & Plan Assessment and plan (1) Acute kidney injury superimposed on chronic kidney disease: Status: Acute Plan DILLON due to tubular injury; Serum creatinine marginally worse Remains hypervolemic. Shall start lasix drip Had PRBC & EPO. Iron as ordered No reason to suspect GN/AIN. UO OK; No indication for HD yet C/W rest of current supportive management for now Progress Note: Quality Stroke Does the patient have a stroke diagnosis?: No
[2024-08-13] MEDS: Insulin Lispro 100 UNIT/ML 3 ML VIAL SUBCUT ×2 (16:37→21:43)
[2024-08-13 21:16] LABS: Glucose, Whole Blood 156 mg/dL (60-115)
[2024-08-13] MEDS: Gabapentin 100 MG CAPSULE PO (21:43)
[2024-08-14] VITALS (12 sets, daily range): BP systolic 148–165; BP diastolic 66–76; PULSE 77–83; RESP 16–18; TEMP 36.1–37.1; O2SAT 95–98
[2024-08-14 06:22] LABS: Glucose, Whole Blood 87 mg/dL (60-115)
[2024-08-14] MEDS: amLODIPine Besylate 10 MG TABLET PO (07:30)
[2024-08-14] MEDS: Metoprolol Succinate ER 25 MG TAB.ER.24H PO (07:30)
[2024-08-14] MEDS: hydrALAZINE HCl 10 MG TABLET 20 MG PO ×2 (07:31→15:17)
[2024-08-14] MEDS: Ferrous Sulfate 324 MG TABLET.DR PO (07:31)
[2024-08-14] MEDS: 0.9 % Sodium Chloride Flush 3 ML SYRINGE IVFLUSH ×3 (07:31→20:54)
[2024-08-14 07:48] LABS: Glucose, Whole Blood 130 mg/dL (60-115)
[2024-08-14] MEDS: Furosemide 100 MG/10 ML VIAL 80 MG IVPUSH (09:19)
[2024-08-14 09:24] LABS: Anion Gap 14 (12-20); Blood Urea Nitrogen 53 mg/dL (9-16); Calcium 8.3 mg/dL (8.4-10.2); Carbon Dioxide 25 mmol/L (22-29); Chloride 101 mmol/L (96-108); Creatinine Clr Calc Pharmacy 17.3; Estimated Glomerular Filt Rate 13; Glucose Random 107 mg/dL (60-115); Potassium 3.9 mmol/L (3.3-5.1); Sodium 136 mmol/L (135-145)
--- NOTE | 2024-08-14 11:45 | HO.PM.IMPN ---
Subjective Subjective Date of Service: 08/14/24 Interval History: seen and examined this morning follow up for chf, gregory, paranfluenza History obtained with the assistance of the marketing forecaster had episode of dizziness reported early, but at time of examination pt denies feeling dizzy Review of Systems Review of Systems: Yes all other systems are reviewed and are negative Constitutional Constitutional: Denies chills and Denies fever(s) Cardiovascular Cardiovascular: Denies chest pain and Denies palpitations Endocrine Endocrine: Denies palpitations Physical Exam Vital Signs: Vital Signs: Last Vital Signs Temp 98.4 F 08/14/24 07:24 Pulse 83 08/14/24 07:30 Resp 18 08/14/24 07:24 BP 161/73 H 08/14/24 09:19 Pulse Ox 96 08/14/24 07:24 O2 Del Method Nasal Cannula 08/14/24 07:24 O2 Flow Rate 2 08/14/24 07:24 BMI result Body Mass Index 22.6 Const: General: cooperative, comfortable, alert, awake and Physically active Nutritional Appearance: average body habitus Orientation/consciousness: oriented to person and oriented to place Resp: Other: b/l course breath sounds, rhonchi Effort & Inspection: normal respiratory effort, able to speak in complete sentences, no respiratory distress and no use of accessory muscles Cardio: Rate: regular rate GI: Inspection: No distended Palpation (GI): Soft to palpation and nontender Neuro: Other: grossly nonfocal, moves all extremities spontaneously General: oriented to person, oriented to place, moves all extremities and CN's II-XI intact bilaterally Extrem: Other: b/l leg edema Objective Data Active Medications Acetaminophen (Acetaminophen 325 Mg Tablet) 650 mg PO Q6H PRN PRN Reason: Pain, Mild 1-3,fever,headache Last Admin: 08/08/24 23:47 Dose: 650 mg Documented By: CELESTE Albuterol/Ipratropium (Albuterol/Iprat 2.5/0.5mg 3 Ml Ampul.Neb) 3 ml INHALE RQ6H WHILE AWAKE PRN PRN Reason: Shortness of Breath/Wheezing Last Admin: 08/12/24 21:52 Dose: 3 ml Documented By: JUMANA Amlodipine Besylate (Amlodipine Besylate 10 Mg Tablet) 10 mg PO DAILY JM; Protocol Last Admin: 08/14/24 07:30 Dose: 10 mg Documented By: SAMMI Calcium Carbonate (Calcium Carbonate 750 Mg Tab.Chew) 750 mg PO Q4H PRN PRN Reason: Heartburn Last Admin: 08/08/24 01:29 Dose: 750 mg Documented By: CELESTE Dextrose (Dextrose 50 % 25 Gm/50 Ml Syringe) 25 gm IVPUSH Q15M PRN; Protocol PRN Reason: per Hypoglycemia Standing Ord. Last Admin: 08/06/24 06:47 Dose: 25 gm Documented By: CARY Ferrous Sulfate (Ferrous Sulfate 324 Mg Tablet.Dr) 324 mg PO DAILY JM Last Admin: 08/14/24 07:31 Dose: 324 mg Documented By: SAMMI Gabapentin (Gabapentin 100 Mg Capsule) 100 mg PO BEDTIME JM Last Admin: 08/13/24 21:43 Dose: 100 mg Documented By: TAHIR Glucose (Glucose Gel 15 Gm Gel..Gram.) 15 gm PO Q15M PRN; Protocol PRN Reason: per Hypoglycemia Standing Ord. Guaifenesin/Dextromethorphan (Guaifenesin Dm 100/10/5 Ml 5 Ml Syrup) 5 ml PO Q6H PRN PRN Reason: Cough Last Admin: 08/11/24 21:07 Dose: 5 ml Documented By: MEL-OSMANZEB Hydralazine HCl (Hydralazine Hcl 10 Mg Tablet) 20 mg PO TID [facility]; Protocol Last Admin: 08/14/24 07:31 Dose: 20 mg Documented By: SAMMI Furosemide 200 mg/ Sodium (Chloride) 100 mls @ 3.75 mls/hr IVCONT .Q24H [facility] Last Infusion: 08/14/24 09:19 Dose: 15 mg/hr, 7.5 mls/hr Documented By: SAMMI Insulin Human Lispro (Insulin Lispro 100 Unit/Ml 3 Ml Vial) 0 unit SUBCUT QIDACHS [facility]; Protocol Last Admin: 08/14/24 07:05 Dose: Not Given Documented By: SAMMI Non-Admin Reason: No Insulin Coverage Magnesium Hydroxide (Milk Of Magnesia 30 Ml Oral.Susp) 30 ml PO DAILY PRN PRN Reason: Constipation Last Admin: 08/07/24 07:28 Dose: 30 ml Documented By: LIA Melatonin (Melatonin 3 Mg Tablet) 6 mg PO BEDTIME PRN PRN Reason: Insomnia Metoprolol Succinate (Metoprolol Succinate Er 25 Mg Tab.Er.24h) 25 mg PO DAILY [facility]; Protocol Last Admin: 08/14/24 07:30 Dose: 25 mg Documented By: SAMMI Ondansetron HCl (Ondansetron Hcl 4 Mg/2 Ml Vial) 4 mg IVPUSH Q8H PRN PRN Reason: Nausea and Vomiting Last Admin: 08/09/24 02:13 Dose: 4 mg Documented By: CELESTE Sodium Chloride (0.9 % Sodium Chloride Flush 3 Ml Syringe) 3 ml IVFLUSH QSHIFT [facility] Last Admin: 08/14/24 07:31 Dose: 3 ml Documented By: SAMMI Labs 08/13/24 08:46 08/14/24 08:27 Labs: Laboratory Results - last 24 hr 08/13/24 08/13/24 08/14/24 15:57 21:00 06:16 Anion Gap Estim Creat Clear Calc Estimated GFR POC Glucose 173 H 156 H 87 Random Glucose Calcium 08/14/24 08/14/24 07:40 08:27 Anion Gap 14 Estim Creat Clear Calc 17.3 Estimated GFR 13 POC Glucose 130 H Random Glucose 107 Calcium 8.3 L Microbiology Microbiology Results: Microbiology 08/09/24 03:07 Blood Culture - Final Blood - Venous No growth after 5 days. 08/09/24 03:07 Blood Culture - Final Blood - Venous No growth after 5 days. Assessment and Plan (1) Parainfluenza: Status: Acute (2) Acute kidney injury superimposed on chronic kidney disease: Status: Acute (3) Acute exacerbation of CHF (congestive heart failure): Status: Acute Plan This is a 54-year-old Haitian-speaking female with pertinent history of chronic combined systolic and diastolic congestive heart failure, chronic hypoxemic respiratory failure due to COPD on 2-3 L supplemental oxygen, hypertension, insulin-dependent diabetes mellitus, gastroesophageal reflux disease, mixed hyperlipidemia, CKD stage 3 who presents to the emergency department for evaluation of blood in vomitus. acue on Chronic combined systolic and diastolic congestive heart failure: EF 45-50% with impaired relaxation remains volume overloaded Is&Os not accurate continue lasix drip, will give bolus dose of IV lasix cardiology following follow BMP Acute kidney injury on CKD stage 3: due to tubular injury. creatinine trending up remains fluid overloaded, d/w nephrology ok to resume lasix drip nephrology following Follow BMP pleural effusion h/o recurrent pleural effusions. has had thoracentesis in the past repeat cxr with improving effusions initially; repeat cxr on 08/11 with b/l moderate to large effusions pneumonia/parainfluenza virus spiked fever overnight (08/08) repeat cxr concerning for pneumonia, started on ceftriaxone, doxycycline 08/09 Lactic acid normal. elevated creatinine due to ckd/volume not due to sepsis Possible viral with bacterial superinfection. RPP positive for parainfluenza blood cultures negative Symptomatic management Acute GI bleed: episode of hemetemesis x1 (reason for admission), no further overt bleeding H/H improved after blood transfusion but then trended down Seen by GI, has declined EGD continue empiric PPI s/p procrit this am, 1U rbc 08/09 and IV iron x 4 days with improvement in H/H resume baseline po iron vomiting resolved Acute hypokalemia: replaced and improved hold Lokelma for now Chronic hypoxemic respiratory failure due to COPD: Continue baseline supplemental oxygen and home inhalers Insulin-dependent diabetes mellitus: lantus on hold for hypoglycemia, normal POCs monitor POCs with diet advancement, may need to resume lantus (on 10U at baseline) SSI, POCs HTN continue norvasc, metoprolol added low dose hydralzine DVT prophylaxis: Mechanical due to anemia/possible GI bleed DNI dispo - PT rec home with PT vs SNF Requires ongoing inpatient stay for close monitoring of kidney function, H&H, hemodynamics, electrolytes (as above), IV lasix, close monitoring which is not possible in a lesser acute setting Quality Stroke Does the patient have a stroke diagnosis?: No VTE Prior VTE?: No VTE Risk Level:: Medical - moderate - high VTE Device Contraindication: N/A - Device Ordered VTE Drug Contraindication: Treatment Not Indicated
--- NOTE | 2024-08-14 11:57 | MHC.CM.PN ---
EMR REVIEWED, PT W/FUID OVERLOAD NOW ON LASIX DRIP, NO PLAN FOR DC AT THIS TIME, ANTIC PT WILL RETURN HOME W/SON ONCE MEDICALLY CLEARED, CM WILL CONT TO FOLLOW DC NEEDS.
[2024-08-14 13:31] LABS: Glucose, Whole Blood 135 mg/dL (60-115)
[2024-08-14] MEDS: Furosemide 200 MG in 0.9 % Sodium Chloride 80 ML 7.5 MG IVCONT (13:34)
--- NOTE | 2024-08-14 15:16 | P.PNNP_ITS ---
Subjective Subjective Date of Service: 08/14/24 Interval history: seen and examined this morning. All recent data reviewed Physical Exam 2 Vital Signs: Vital Signs: Last Vital Signs Temp 97.5 F 08/14/24 11:46 Pulse 80 08/14/24 14:24 Resp 17 08/14/24 11:46 BP 152/66 H 08/14/24 14:24 Pulse Ox 95 08/14/24 14:24 O2 Del Method Nasal Cannula 08/14/24 11:46 O2 Flow Rate 2 08/14/24 11:46 BMI result Body Mass Index 22.6 Const: General: no acute distress Orientation/consciousness: patient oriented x3 Eyes: EOM: EOMs intact bilaterally Resp: Auscultation: diminished lung sounds Cardio: Rate: regular rate GI: Palpation (GI): Soft to palpation Neuro: General: patient oriented x3 Objective Data Labs 08/13/24 08:46 08/14/24 08:27 Labs: Laboratory Results - last 24 hr 08/13/24 08/13/24 08/14/24 15:57 21:00 06:16 Sodium Potassium Chloride Carbon Dioxide Anion Gap BUN Creatinine Estim Creat Clear Calc Estimated GFR POC Glucose 173 H 156 H 87 Random Glucose Calcium 08/14/24 08/14/24 08/14/24 07:40 08:27 11:48 Sodium 136 Potassium 3.9 Chloride 101 Carbon Dioxide 25 Anion Gap 14 BUN 53 H Creatinine 3.68 H Estim Creat Clear Calc 17.3 Estimated GFR 13 POC Glucose 130 H 135 H Random Glucose 107 Calcium 8.3 L Microbiology Microbiology Results: Microbiology 08/09/24 03:07 Blood - Venous Blood Culture - Final No growth after 5 days. 08/09/24 03:07 Blood - Venous Blood Culture - Final No growth after 5 days. 08/10/24 Unknown Urine clean catch - Clean Catch Midstream Urine Culture - Final Procedures Date of Service Date of Service: 08/14/24 Assessment & Plan Assessment and plan (1) Acute kidney injury superimposed on chronic kidney disease: Status: Acute Plan DILLON due to tubular injury; Serum creatinine marginally worse Remains hypervolemic. C/W diuresis Had PRBC & EPO. Iron as ordered No reason to suspect GN/AIN. UO OK; No indication for HD yet C/W rest of current supportive management for now Progress Note: Quality Stroke Does the patient have a stroke diagnosis?: No
[2024-08-14 16:34] LABS: Glucose, Whole Blood 132 mg/dL (60-115)
[2024-08-14 17:08] LABS: Anion Gap 12 (12-20); Blood Urea Nitrogen 53 mg/dL (9-16); Calcium 8.3 mg/dL (8.4-10.2); Carbon Dioxide 24 mmol/L (22-29); Chloride 101 mmol/L (96-108); Creatinine Clr Calc Pharmacy 15.9; Estimated Glomerular Filt Rate 12; Glucose Random 136 mg/dL (60-115); Sodium 133 mmol/L (135-145)
[2024-08-14 20:40] LABS: Glucose, Whole Blood 138 mg/dL (60-115)
[2024-08-14] MEDS: ondansetron HCL 4 MG/2 ML VIAL IVPUSH (21:01)
--- NOTE | 2024-08-15 02:24 | PC.NURSE ---
Assumed care of patient at 19:00. Pt c/o nausea on evening assessment, given prn zofran with some effect on reassessment per pt report. Evening POC was 138. Pt A&Ox4, mentating per baseline, denied dizziness. Evening scheduled hydralazine and gabapentin held per discussion with patient via Director Of Retention at bedside. Covering Dr. Sarmiento notified. No new orders. No further complaints of nausea from patient. No vomiting noted. Pt voiding via purewick for accurate I+O's. Bladder scanned in evening for 309ml. Pt denied discomfort to pelvic palpation, dysuria, flank pain or other s/s. MD notified with orders to reassess in two hours. On advised reassessment pt voided in PW with PVR obtained showing zero. Patient resting in bed with breathing even and unlabored without distress on baseline 2L nc. Call sampson within reach and educated on use. Safety measures in place. Plan of care continues. Please see shift assessments, tasks, and MAR for full details.
[2024-08-15 04:50] VITALS: BP 164/74; PULSE 80; RESP 18; TEMP 36.7; O2SAT 91
[2024-08-15 06:51] LABS: Anion Gap 13 (12-20); Blood Urea Nitrogen 53 mg/dL (9-16); Calcium 8.4 mg/dL (8.4-10.2); Carbon Dioxide 24 mmol/L (22-29); Chloride 102 mmol/L (96-108); Creatinine Clr Calc Pharmacy 16.2; Estimated Glomerular Filt Rate 12; Glucose Random 105 mg/dL (60-115); Potassium 4.1 mmol/L (3.3-5.1); Sodium 135 mmol/L (135-145)
[2024-08-15 07:19] VITALS: BP 172/74; PULSE 84; RESP 20; TEMP 36.3; O2SAT 98
[2024-08-15 07:34] LABS: Glucose, Whole Blood 101 mg/dL (60-115)
[2024-08-15] MEDS: Metoprolol Succinate ER 25 MG TAB.ER.24H PO (08:28)
[2024-08-15] MEDS: Ferrous Sulfate 324 MG TABLET.DR PO (08:28)
[2024-08-15] MEDS: amLODIPine Besylate 10 MG TABLET PO (08:28)
[2024-08-15] MEDS: hydrALAZINE HCl 10 MG TABLET 20 MG PO (08:29)
[2024-08-15] MEDS: 0.9 % Sodium Chloride Flush 3 ML SYRINGE IVFLUSH ×2 (08:30→20:51)
--- NOTE | 2024-08-15 11:09 | HO.PM.IMPN ---
Subjective Subjective Date of Service: 08/15/24 Interval History: seen and examined this morning follow up for chf, gregory, paranfluenza History obtained with the assistance of the educational interpreter had episode of dizziness reported early, but at time of examination pt denies feeling dizzy Review of Systems Review of Systems: Yes all other systems are reviewed and are negative Constitutional Constitutional: Denies chills and Denies fever(s) Cardiovascular Cardiovascular: Denies chest pain and Denies palpitations Endocrine Endocrine: Denies palpitations Physical Exam Vital Signs: Vital Signs: Last Vital Signs Temp 97.4 F 08/15/24 07:19 Pulse 84 08/15/24 07:19 Resp 20 08/15/24 07:19 BP 172/74 H 08/15/24 07:19 Pulse Ox 98 08/15/24 07:19 O2 Del Method Nasal Cannula 08/15/24 07:19 O2 Flow Rate 2 08/15/24 07:19 BMI result Body Mass Index 22.6 Appearing in no acute distress lung sounds are clear to auscultation heart regular rate rhythm, clear S1, S2 positive bowel sounds, abdomen is soft, nontender neuro patient is alert x3, no focal deficits Objective Data Active Medications Acetaminophen (Acetaminophen 325 Mg Tablet) 650 mg PO Q6H PRN PRN Reason: Pain, Mild 1-3,fever,headache Last Admin: 08/08/24 23:47 Dose: 650 mg Documented By: CELESTE Amlodipine Besylate (Amlodipine Besylate 10 Mg Tablet) 10 mg PO DAILY [facility]; Protocol Last Admin: 08/15/24 08:28 Dose: 10 mg Documented By: DANNY Calcium Carbonate (Calcium Carbonate 750 Mg Tab.Chew) 750 mg PO Q4H PRN PRN Reason: Heartburn Last Admin: 08/08/24 01:29 Dose: 750 mg Documented By: CELESTE Dextrose (Dextrose 50 % 25 Gm/50 Ml Syringe) 25 gm IVPUSH Q15M PRN; Protocol PRN Reason: per Hypoglycemia Standing Ord. Last Admin: 08/06/24 06:47 Dose: 25 gm Documented By: CARY Ferrous Sulfate (Ferrous Sulfate 324 Mg Tablet.Dr) 324 mg PO DAILY [facility] Last Admin: 08/15/24 08:28 Dose: 324 mg Documented By: DANNY Gabapentin (Gabapentin 100 Mg Capsule) 100 mg PO BEDTIME [facility] Last Admin: 08/14/24 21:52 Dose: Not Given Documented By: CAMILO Non-Admin Reason: Nausea Glucose (Glucose Gel 15 Gm Gel..Gram.) 15 gm PO Q15M PRN; Protocol PRN Reason: per Hypoglycemia Standing Ord. Guaifenesin/Dextromethorphan (Guaifenesin Dm 100/10/5 Ml 5 Ml Syrup) 5 ml PO Q6H PRN PRN Reason: Cough Last Admin: 08/11/24 21:07 Dose: 5 ml Documented By: MEL-JOZEB Hydralazine HCl (Hydralazine Hcl 50 Mg Tablet) 50 mg PO TID [facility]; Protocol Furosemide 200 mg/ Sodium (Chloride) 100 mls @ 3.75 mls/hr IVCONT .Q24H [facility] Last Infusion: 08/14/24 15:54 Dose: Infused Documented By: SAMMI Insulin Human Lispro (Insulin Lispro 100 Unit/Ml 3 Ml Vial) 0 unit SUBCUT QIDACHS [facility]; Protocol Last Admin: 08/15/24 08:25 Dose: Not Given Documented By: DANNY Non-Admin Reason: No Insulin Coverage Magnesium Hydroxide (Milk Of Magnesia 30 Ml Oral.Susp) 30 ml PO DAILY PRN PRN Reason: Constipation Last Admin: 08/07/24 07:28 Dose: 30 ml Documented By: LIA Melatonin (Melatonin 3 Mg Tablet) 6 mg PO BEDTIME PRN PRN Reason: Insomnia Metoprolol Succinate (Metoprolol Succinate Er 25 Mg Tab.Er.24h) 25 mg PO DAILY [facility]; Protocol Last Admin: 08/15/24 08:28 Dose: 25 mg Documented By: DANNY Ondansetron HCl (Ondansetron Hcl 4 Mg/2 Ml Vial) 4 mg IVPUSH Q8H PRN PRN Reason: Nausea and Vomiting Last Admin: 08/14/24 21:01 Dose: 4 mg Documented By: CAMILO Sodium Chloride (0.9 % Sodium Chloride Flush 3 Ml Syringe) 3 ml IVFLUSH QSHIFT [facility] Last Admin: 08/15/24 08:30 Dose: 3 ml Documented By: DANNY Labs 08/13/24 08:46 08/15/24 05:56 Labs: Laboratory Results - last 24 hr 08/14/24 08/14/24 08/14/24 11:48 16:30 16:34 Hold Purple Top Anion Gap 12 Estim Creat Clear Calc 15.9 Estimated GFR 12 POC Glucose 135 H 132 H Random Glucose 136 H Calcium 8.3 L 08/14/24 08/15/24 08/15/24 20:33 05:56 07:18 Hold Purple Top SEE NOTE Anion Gap 13 Estim Creat Clear Calc 16.2 Estimated GFR 12 POC Glucose 138 H 101 Random Glucose 105 Calcium 8.4 Assessment and Plan (1) Parainfluenza: Status: Acute (2) Acute kidney injury superimposed on chronic kidney disease: Status: Acute (3) Acute exacerbation of CHF (congestive heart failure): Status: Acute Plan 54-year-old Malagasy-speaking female with pertinent history of chronic combined systolic and diastolic congestive heart failure, chronic hypoxemic respiratory failure due to COPD on 2-3 L supplemental oxygen, hypertension, insulin-dependent diabetes mellitus, gastroesophageal reflux disease, mixed hyperlipidemia, CKD stage 3 who presents to the emergency department for evaluation of blood in vomitus. Acute on Chronic combined systolic and diastolic congestive heart failure EF 45-50% with impaired relaxation remains volume overloaded Is&Os not accurate continue lasix drip cardiology following follow BMP Acute kidney injury on CKD stage 3 due to tubular injury. creatinine trending down remains fluid overloaded, d/w nephrology ok to resume lasix drip nephrology following Follow BMP pleural effusion h/o recurrent pleural effusions. has had thoracentesis in the past repeat cxr with improving effusions initially; repeat cxr on 08/11 with b/l moderate to large effusions pneumonia/parainfluenza virus spiked fever overnight (08/08) repeat cxr concerning for pneumonia, started on ceftriaxone, doxycycline 08/09 Lactic acid normal. elevated creatinine due to ckd/volume not due to sepsis Possible viral with bacterial superinfection. RPP positive for parainfluenza blood cultures negative Symptomatic management Acute GI bleed episode of hemetemesis x1 (reason for admission), no further overt bleeding H/H improved after blood transfusion but then trended down Seen by GI, has declined EGD continue empiric PPI s/p procrit this am, 1U rbc /6 and IV iron x 4 days with improvement in H/H resume baseline po iron vomiting resolved Acute hypokalemia replaced and improved hold Lokelma for now Chronic hypoxemic respiratory failure due to COPD Continue baseline supplemental oxygen and home inhalers Insulin-dependent diabetes mellitus lantus on hold for hypoglycemia, normal POCs monitor POCs with diet advancement, may need to resume lantus (on 10U at baseline) SSI, POCs HTN continue norvasc, metoprolol added low dose hydralzine DVT prophylaxis: Mechanical due to anemia/possible GI bleed DNI dispo - PT rec home with PT vs SNF Requires ongoing inpatient stay for close monitoring of kidney function, H&H, hemodynamics, electrolytes (as above), IV lasix, close monitoring which is not possible in a lesser acute setting Quality Stroke Does the patient have a stroke diagnosis?: No VTE Prior VTE?: No VTE Risk Level:: Medical - moderate - high VTE Device Contraindication: N/A - Device Ordered VTE Drug Contraindication: Treatment Not Indicated
[2024-08-15 11:57] LABS: Glucose, Whole Blood 145 mg/dL (60-115)
[2024-08-15 12:00] VITALS: BP 149/64; PULSE 77; RESP 20; TEMP 36.3; O2SAT 95
--- NOTE | 2024-08-15 12:07 | PM.PNCARD ---
Subjective Subjective Date of Service: 08/15/24 Interval history: Seen examined at bedside. Complaining of leg pain. Creatinine worsened yesterday and her Lasix drip was discontinued. Overall volume status has improved. She still has peripheral edema which could be related to amlodipine and gabapentin use. Physical Exam Vital Signs: Last Vital Signs Temp 97.4 F 08/15/24 07:19 Pulse 84 08/15/24 07:19 Resp 20 08/15/24 07:19 BP 172/74 H 08/15/24 07:19 Pulse Ox 98 08/15/24 07:19 O2 Del Method Nasal Cannula 08/15/24 07:19 O2 Flow Rate 2 08/15/24 07:19 BMI result Body Mass Index 22.6 GENERAL APPEARANCE: in no acute distress, pleasant. NECK: no carotid bruit, mild jugular venous distention. SKIN: no suspicious lesions, warm and dry. HEART: no murmurs, regular rate and rhythm. LUNGS: Overall diminished breath sounds bilaterally. No wheezes/crackles. ABDOMEN: soft, nontender. EXTREMITIES: 1+ edema. PERIPHERAL PULSES: equal. NEUROLOGIC: No gross deficits, AAO X 3 Objective Labs and Meds 08/13/24 08:46 08/15/24 05:56 Lab results: Laboratory Results - last 24 hr 08/14/24 08/14/24 08/14/24 11:48 16:30 16:34 Hold Purple Top Sodium 133 L Potassium 4.0 Chloride 101 Carbon Dioxide 24 Anion Gap 12 BUN 53 H Creatinine 4.02 H* Estim Creat Clear Calc 15.9 Estimated GFR 12 POC Glucose 135 H 132 H Random Glucose 136 H Calcium 8.3 L 08/14/24 08/15/24 08/15/24 20:33 05:56 07:18 Hold Purple Top SEE NOTE Sodium 135 Potassium 4.1 Chloride 102 Carbon Dioxide 24 Anion Gap 13 BUN 53 H Creatinine 3.93 H Estim Creat Clear Calc 16.2 Estimated GFR 12 POC Glucose 138 H 101 Random Glucose 105 Calcium 8.4 08/15/24 11:53 Hold Purple Top Sodium Potassium Chloride Carbon Dioxide Anion Gap BUN Creatinine Estim Creat Clear Calc Estimated GFR POC Glucose 145 H Random Glucose Calcium Progress Note: A&P Assessment and plan (1) Acute exacerbation of CHF (congestive heart failure): Status: Acute Plan 54-year-old female with acute exacerbation of congestive heart failure in the setting of pneumonia/parainfluenza. EF is 45-50%. She also has advanced CKD and had GI blood loss with hematemesis with low hemoglobin. Aspirin has been held appropriately. She was on Lasix drip for significant volume overload. Her creatinine started rising yesterday and we held the Lasix drip. Overall volume status appears to be improving. I think we put her on oral torsemide 40 mg daily. Blood pressure is significantly elevated. Titrating hydralazine to 50 mg 3 times a day. If creatinine stable tomorrow then can be discharged. Close follow-up with Nephrology because creatinine clearance is worsening. Thank you for allowing me to participate in the care of your patient. Please feel free to contact me if you have any questions. Time Spent With Patient Time: Total time managing care of this patient today ____ minutes. Progress Note: Quality Stroke Does the patient have a stroke diagnosis?: No Procedures Date of Service Date of Service: 08/15/24
[2024-08-15] MEDS: Torsemide 20 MG TABLET 40 MG PO (12:41)
[2024-08-15 16:00] VITALS: BP 147/72; PULSE 76; RESP 18; TEMP 36.7; O2SAT 99
[2024-08-15 16:04] LABS: Glucose, Whole Blood 207 mg/dL (60-115)
[2024-08-15] MEDS: Insulin Lispro 100 UNIT/ML 3 ML VIAL SUBCUT (16:37)
[2024-08-15] MEDS: hydrALAZINE HCl 50 MG TABLET PO ×2 (16:37→20:51)
[2024-08-15 19:08] VITALS: BP 141/72; PULSE 74; RESP 12; TEMP 36.1; O2SAT 100
[2024-08-15 20:36] LABS: Glucose, Whole Blood 139 mg/dL (60-115)
[2024-08-15 20:51] VITALS: BP 142/69
[2024-08-15] MEDS: Gabapentin 100 MG CAPSULE PO (20:51)
--- NOTE | 2024-08-15 20:58 | PC.NURSE ---
Patient declined to return to bed from chair since assuming care at 19:00. Pt educated on risks of prolonged same position and importance of repositioning to maintain skin integrity. Pt stated later . When copywriter asked patient when later would be, the pt stated 10 . Will attempt to transfer back to bed then as per pt. Chair alarm and other high falls safety measures continue. Pt is A&Ox4. Pt denies dizziness, n/v. Plan of care continues.
[2024-08-16] VITALS (8 sets, daily range): BP systolic 136–161; BP diastolic 63–75; PULSE 69–84; RESP 12–20; TEMP 36.1–37.1; O2SAT 90–100
[2024-08-16 07:27] LABS: Glucose, Whole Blood 119 mg/dL (60-115)
[2024-08-16 08:02] LABS: B Type Natriuretic Peptide 689 pg/mL (<100)
[2024-08-16 08:06] LABS: Anion Gap 12 (12-20); Blood Urea Nitrogen 49 mg/dL (9-16); Calcium 8.2 mg/dL (8.4-10.2); Carbon Dioxide 24 mmol/L (22-29); Chloride 102 mmol/L (96-108); Creatinine Clr Calc Pharmacy 17.8; Estimated Glomerular Filt Rate 13; Glucose Random 113 mg/dL (60-115); Magnesium 2.3 mg/dL (1.6-2.6); Potassium 4.1 mmol/L (3.3-5.1); Sodium 134 mmol/L (135-145)
[2024-08-16] MEDS: Ferrous Sulfate 324 MG TABLET.DR PO (08:26)
[2024-08-16] MEDS: hydrALAZINE HCl 50 MG TABLET PO ×3 (08:26→20:34)
[2024-08-16] MEDS: Metoprolol Succinate ER 25 MG TAB.ER.24H PO (08:26)
[2024-08-16] MEDS: amLODIPine Besylate 10 MG TABLET PO (08:26)
[2024-08-16] MEDS: Torsemide 20 MG TABLET 40 MG PO (08:26)
[2024-08-16] MEDS: 0.9 % Sodium Chloride Flush 3 ML SYRINGE IVFLUSH (09:00)
--- NOTE | 2024-08-16 09:41 | HO.PM.IMPN ---
Subjective Subjective Date of Service: 08/16/24 Interval History: seen and examined this morning follow up for chf, dillon, paranfluenza Review of Systems Review of Systems: Yes all other systems are reviewed and are negative Constitutional Constitutional: Denies chills and Denies fever(s) Cardiovascular Cardiovascular: Denies chest pain and Denies palpitations Endocrine Endocrine: Denies palpitations Physical Exam Vital Signs: Vital Signs: Last Vital Signs Temp 97.9 F 08/16/24 08:00 Pulse 84 08/16/24 08:00 Resp 20 08/16/24 08:00 BP 161/75 H 08/16/24 08:00 Pulse Ox 100 08/16/24 08:00 O2 Del Method Nasal Cannula 08/16/24 08:00 O2 Flow Rate 2 08/16/24 08:00 BMI result Body Mass Index 22.6 Appearing in no acute distress lung sounds are clear to auscultation heart regular rate rhythm, clear S1, S2 positive bowel sounds, abdomen is soft, nontender neuro patient is alert x3, no focal deficits Objective Data Active Medications Acetaminophen (Acetaminophen 325 Mg Tablet) 650 mg PO Q6H PRN PRN Reason: Pain, Mild 1-3,fever,headache Last Admin: 08/08/24 23:47 Dose: 650 mg Documented By: CELESTE Amlodipine Besylate (Amlodipine Besylate 10 Mg Tablet) 10 mg PO DAILY [facility]; Protocol Last Admin: 08/16/24 08:26 Dose: 10 mg Documented By: DANNY Calcium Carbonate (Calcium Carbonate 750 Mg Tab.Chew) 750 mg PO Q4H PRN PRN Reason: Heartburn Last Admin: 08/08/24 01:29 Dose: 750 mg Documented By: CELESTE Dextrose (Dextrose 50 % 25 Gm/50 Ml Syringe) 25 gm IVPUSH Q15M PRN; Protocol PRN Reason: per Hypoglycemia Standing Ord. Last Admin: 08/06/24 06:47 Dose: 25 gm Documented By: CARY Ferrous Sulfate (Ferrous Sulfate 324 Mg Tablet.) 324 mg PO DAILY [facility] Last Admin: 08/16/24 08:26 Dose: 324 mg Documented By: DANNY Gabapentin (Gabapentin 100 Mg Capsule) 100 mg PO BEDTIME [facility] Last Admin: 08/15/24 20:51 Dose: 100 mg Documented By: CAMILO Glucose (Glucose Gel 15 Gm Gel..Gram.) 15 gm PO Q15M PRN; Protocol PRN Reason: per Hypoglycemia Standing Ord. Guaifenesin/Dextromethorphan (Guaifenesin Dm 100/10/5 Ml 5 Ml Syrup) 5 ml PO Q6H PRN PRN Reason: Cough Last Admin: 08/11/24 21:07 Dose: 5 ml Documented By: MEL-JOZEAide Hydralazine HCl (Hydralazine Hcl 50 Mg Tablet) 50 mg PO TID [facility]; Protocol Last Admin: 08/16/24 08:26 Dose: 50 mg Documented By: DANNY Insulin Human Lispro (Insulin Lispro 100 Unit/Ml 3 Ml Vial) 0 unit SUBCUT QIDAS [facility]; Protocol Last Admin: 08/16/24 09:38 Dose: Not Given Documented By: DANNY Non-Admin Reason: No Insulin Coverage Magnesium Hydroxide (Milk Of Magnesia 30 Ml Oral.Susp) 30 ml PO DAILY PRN PRN Reason: Constipation Last Admin: 08/07/24 07:28 Dose: 30 ml Documented By: LIA Melatonin (Melatonin 3 Mg Tablet) 6 mg PO BEDTIME PRN PRN Reason: Insomnia Metoprolol Succinate (Metoprolol Succinate Er 25 Mg Tab.Er.24h) 25 mg PO DAILY [facility]; Protocol Last Admin: 08/16/24 08:26 Dose: 25 mg Documented By: DANNY Ondansetron HCl (Ondansetron Hcl 4 Mg/2 Ml Vial) 4 mg IVPUSH Q8H PRN PRN Reason: Nausea and Vomiting Last Admin: 08/14/24 21:01 Dose: 4 mg Documented By: CAMILO Sodium Chloride (0.9 % Sodium Chloride Flush 3 Ml Syringe) [facility] Last Admin: 08/15/24 20:51 Dose: 3 ml Documented By: CAMILO Torsemide (Torsemide 20 Mg Tablet) 40 mg PO DAILY [facility]; Protocol Last Admin: 08/16/24 08:26 Dose: 40 mg Documented By: DANNY Labs 08/13/24 08:46 08/16/24 06:27 Labs: Laboratory Results - last 24 hr 08/15/24 08/15/24 08/15/24 11:53 15:42 20:17 Anion Gap Estim Creat Clear Calc Estimated GFR POC Glucose 145 H 207 H 139 H Random Glucose Calcium Magnesium B-Natriuretic Peptide 08/16/24 08/16/24 06:27 07:19 Anion Gap 12 Estim Creat Clear Calc 17.8 Estimated GFR 13 POC Glucose 119 H Random Glucose 113 Calcium 8.2 L Magnesium 2.3 B-Natriuretic Peptide 689 H Assessment and Plan (1) Parainfluenza: Status: Acute (2) Acute kidney injury superimposed on chronic kidney disease: Status: Acute (3) Acute exacerbation of CHF (congestive heart failure): Status: Acute Plan 54-year-old Occitan-speaking female with pertinent history of chronic combined systolic and diastolic congestive heart failure, chronic hypoxemic respiratory failure due to COPD on 2-3 L supplemental oxygen, hypertension, insulin-dependent diabetes mellitus, gastroesophageal reflux disease, mixed hyperlipidemia, CKD stage 3 who presents to the emergency department for evaluation of blood in vomitus. Bilateral pleural effusions Thoracentesis ordered Cytology and routine culture Acute on Chronic combined systolic and diastolic congestive heart failure EF 45-50% with impaired relaxation Is&Os not accurate s/p lasix drip, stopped due to worsening DILLON cardiology following> torsemide 40 mg daily follow BMP Acute kidney injury on CKD stage 3 due to tubular injury. creatinine trending down nephrology following Follow BMP pleural effusion h/o recurrent pleural effusions. has had thoracentesis in the past repeat cxr with improving effusions initially; repeat cxr on 08/11 with b/l moderate to large effusions Pneumonia/parainfluenza virus spiked fever overnight (08/08) repeat cxr concerning for pneumonia, s/p ceftriaxone, doxycycline Lactic acid normal. elevated creatinine due to ckd/volume not due to sepsis Possible viral with bacterial superinfection. RPP positive for parainfluenza blood cultures negative Symptomatic management Acute GI bleed episode of hemetemesis x1 (reason for admission), no further overt bleeding H/H improved after blood transfusion but then trended down Seen by GI, has declined EGD continue empiric PPI s/p procrit this am, 1U rbc /6 and IV iron x 4 days with improvement in H/H resume baseline po iron Vomiting resolved Acute hypokalemia replaced and improved hold Lokelma for now Chronic hypoxemic respiratory failure due to COPD Continue baseline supplemental oxygen and home inhalers Insulin-dependent diabetes mellitus lantus on hold for hypoglycemia, normal POCs monitor POCs with diet advancement, may need to resume lantus (on 10U at baseline) SSI, POCs HTN continue norvasc, metoprolol, hydralzine DVT prophylaxis: Mechanical due to anemia/possible GI bleed DNI dispo - PT rec home with PT vs SNF Requires ongoing inpatient stay for close monitoring of kidney function, H&H, hemodynamics, electrolytes (as above), IV lasix, close monitoring which is not possible in a lesser acute setting Quality Stroke Does the patient have a stroke diagnosis?: No VTE Prior VTE?: No VTE Risk Level:: Medical - moderate - high VTE Device Contraindication: N/A - Device Ordered VTE Drug Contraindication: Treatment Not Indicated
--- NOTE | 2024-08-16 10:05 | P.CDIM_ITS ---
PROVIDER RESPONSE TEXT: To clarify, the appropriate diagnosis supported by the clinical indicators: Other (explain): tubular injury QUERY TEXT: PHYSICIAN'S DOCUMENTATION REQUEST Date of Query: 08/12/2024 01:51 PM EDT Patient Name: Queta Loya Admit Date: 08/06/2024 Dear Jade Maldonado MANAGER OF SOFTWARE, A review of the medical record indicates additional documentation may be needed. Please review below and update the documentation accordingly. Clinical Indicators: DILLON on CKD 3 due to tubular injury BUN 51 Creatinine 3.61 Est GFR 13 Please clarify which of the following accurately represents the patient's renal status: Acute renal failure with suspected ATN with CKD 3 Acute renal failure with other pathology (medullary, papillary, or cortical necrosis) with CKD 3 Other (explain) Clinically unable to determine (explain) Thank you, Azalia Moore RN Use of terms such as suspected, likely, concern for, or probable (associated with a specific diagnosi s that is being evaluated, monitored, or treated as if it exists) are acceptable and can be coded in the inpatient se tting, when documented at the time of discharge. Please use your independent medical judgment in providing your response. THIS QUERY IS PART OF THE PERMANENT MEDICAL RECORD
[2024-08-16 11:05] LABS: Glucose, Whole Blood 141 mg/dL (60-115)
[2024-08-16 16:28] LABS: Glucose, Whole Blood 161 mg/dL (60-115)
[2024-08-16] MEDS: Insulin Lispro 100 UNIT/ML 3 ML VIAL SUBCUT ×2 (16:53→20:35)
[2024-08-16 20:17] LABS: Glucose, Whole Blood 151 mg/dL (60-115)
[2024-08-16] MEDS: Gabapentin 100 MG CAPSULE PO (20:34)
[2024-08-16] MEDS: guaiFENesin DM 100/10/5 ML 5 ML SYRUP PO (20:36)
[2024-08-17] VITALS (7 sets, daily range): BP systolic 127–156; BP diastolic 56–72; PULSE 79–84; RESP 16–24; TEMP 36.2–37; O2SAT 93–98
[2024-08-17 07:21] LABS: Glucose, Whole Blood 110 mg/dL (60-115)
[2024-08-17] MEDS: amLODIPine Besylate 10 MG TABLET PO (08:07)
[2024-08-17] MEDS: hydrALAZINE HCl 50 MG TABLET PO ×3 (08:07→20:52)
[2024-08-17] MEDS: Ferrous Sulfate 324 MG TABLET.DR PO (08:07)
[2024-08-17] MEDS: Torsemide 20 MG TABLET 40 MG PO (08:07)
[2024-08-17] MEDS: Metoprolol Succinate ER 25 MG TAB.ER.24H PO (08:07)
--- NOTE | 2024-08-17 10:25 | P.PNNP_ITS ---
Subjective Subjective Date of Service: 08/17/24 Interval history: seen and examined this morning; For thoracocentesis Physical Exam 2 Vital Signs: Vital Signs: Last Vital Signs Temp 98.6 F 08/17/24 07:12 Pulse 84 08/17/24 07:12 Resp 18 08/17/24 07:12 BP 156/72 H 08/17/24 07:12 Pulse Ox 96 08/17/24 07:12 O2 Del Method Nasal Cannula 08/17/24 07:12 O2 Flow Rate 2 08/17/24 07:12 BMI result Body Mass Index 22.6 Const: General: no acute distress Orientation/consciousness: patient oriented x3 Eyes: EOM: EOMs intact bilaterally Neck: Neck: Yes supple Resp: Auscultation: diminished lung sounds Cardio: Rate: regular rate GI: Palpation (GI): Soft to palpation Neuro: General: patient oriented x3 and moves all extremities Objective Data Labs 08/13/24 08:46 08/16/24 06:27 Labs: Laboratory Results - last 24 hr 08/16/24 08/16/24 08/16/24 10:52 16:23 20:14 POC Glucose 141 H 161 H 151 H 08/17/24 07:10 POC Glucose 110 Microbiology Microbiology Results: Microbiology 08/16/24 16:42 Lung - Secretions Routine Culture - Preliminary Culture in progress. 08/09/24 03:07 Blood - Venous Blood Culture - Final No growth after 5 days. 08/09/24 03:07 Blood - Venous Blood Culture - Final No growth after 5 days. 08/10/24 Unknown Urine clean catch - Clean Catch Midstream Urine Culture - Final Procedures Date of Service Date of Service: 08/17/24 Assessment & Plan Assessment and plan (1) Acute kidney injury superimposed on chronic kidney disease: Status: Acute Plan DILLON due to tubular injury; Serum creatinine stable Volume status improved. C/W current dose of torsemide Had PRBC & EPO & Iron. Thoracocentesis UO OK; No indication for HD yet C/W rest of current supportive management for now Progress Note: Quality Stroke Does the patient have a stroke diagnosis?: No
--- NOTE | 2024-08-17 11:07 | HO.PM.IMPN ---
Subjective Subjective Date of Service: 08/17/24 Interval History: seen and examined this morning follow up for chf, dillon, paranfluenza feeling better, plan for thoracentesis today Review of Systems Review of Systems: Yes all other systems are reviewed and are negative Constitutional Constitutional: Denies chills and Denies fever(s) Cardiovascular Cardiovascular: Denies chest pain and Denies palpitations Endocrine Endocrine: Denies palpitations Physical Exam Vital Signs: Vital Signs: Last Vital Signs Temp 98.6 F 08/17/24 07:12 Pulse 84 08/17/24 07:12 Resp 18 08/17/24 07:12 BP 156/72 H 08/17/24 07:12 Pulse Ox 96 08/17/24 07:12 O2 Del Method Nasal Cannula 08/17/24 07:12 O2 Flow Rate 2 08/17/24 07:12 BMI result Body Mass Index 22.6 Appearing in no acute distress lung sounds are clear to auscultation heart regular rate rhythm, clear S1, S2 positive bowel sounds, abdomen is soft, nontender neuro patient is alert x3, no focal deficits Objective Data Active Medications Acetaminophen (Acetaminophen 325 Mg Tablet) 650 mg PO Q6H PRN PRN Reason: Pain, Mild 1-3,fever,headache Last Admin: 08/08/24 23:47 Dose: 650 mg Documented By: CELESTE Amlodipine Besylate (Amlodipine Besylate 10 Mg Tablet) 10 mg PO DAILY [facility]; Protocol Last Admin: 08/17/24 08:07 Dose: 10 mg Documented By: GREGORIA Calcium Carbonate (Calcium Carbonate 750 Mg Tab.Chew) 750 mg PO Q4H PRN PRN Reason: Heartburn Last Admin: 08/08/24 01:29 Dose: 750 mg Documented By: CELESTE Dextrose (Dextrose 50 % 25 Gm/50 Ml Syringe) 25 gm IVPUSH Q15M PRN; Protocol PRN Reason: per Hypoglycemia Standing Ord. Last Admin: 08/06/24 06:47 Dose: 25 gm Documented By: CARY Ferrous Sulfate (Ferrous Sulfate 324 Mg Tablet.) 324 mg PO DAILY [facility] Last Admin: 08/17/24 08:07 Dose: 324 mg Documented By: GREGORIA Gabapentin (Gabapentin 100 Mg Capsule) 100 mg PO BEDTIME [facility] Last Admin: 08/16/24 20:34 Dose: 100 mg Documented By: JUAN JOSÉ Glucose (Glucose Gel 15 Gm Gel..Gram.) 15 gm PO Q15M PRN; Protocol PRN Reason: per Hypoglycemia Standing Ord. Guaifenesin/Dextromethorphan (Guaifenesin Dm 100/10/5 Ml 5 Ml Syrup) 5 ml PO Q6H PRN PRN Reason: Cough Last Admin: 08/16/24 20:36 Dose: 5 ml Documented By: JUAN JOSÉ Hydralazine HCl (Hydralazine Hcl 50 Mg Tablet) 50 mg PO TID [facility]; Protocol Last Admin: 08/17/24 08:07 Dose: 50 mg Documented By: GREGORIA Insulin Human Lispro (Insulin Lispro 100 Unit/Ml 3 Ml Vial) 0 unit SUBCUT QIDACHS [facility]; Protocol Last Admin: 08/17/24 07:56 Dose: Not Given Documented By: GREGORIA Non-Admin Reason: No Insulin Coverage Magnesium Hydroxide (Milk Of Magnesia 30 Ml Oral.Susp) 30 ml PO DAILY PRN PRN Reason: Constipation Last Admin: 08/07/24 07:28 Dose: 30 ml Documented By: LIA Melatonin (Melatonin 3 Mg Tablet) 6 mg PO BEDTIME PRN PRN Reason: Insomnia Metoprolol Succinate (Metoprolol Succinate Er 25 Mg Tab.Er.24h) 25 mg PO DAILY [facility]; Protocol Last Admin: 08/17/24 08:07 Dose: 25 mg Documented By: GREGORIA Ondansetron HCl (Ondansetron Hcl 4 Mg/2 Ml Vial) 4 mg IVPUSH Q8H PRN PRN Reason: Nausea and Vomiting Last Admin: 08/14/24 21:01 Dose: 4 mg Documented By: CAMILO Sodium Chloride (0.9 % Sodium Chloride Flush 3 Ml Syringe) 3 ml IVFLUSH [facility] Last Admin: 08/17/24 08:05 Dose: Not Given Documented By: GREGORIA Non-Admin Reason: No Access Torsemide (Torsemide 20 Mg Tablet) 40 mg PO DAILY [facility]; Protocol Last Admin: 08/17/24 08:07 Dose: 40 mg Documented By: GREGORIA Labs 08/13/24 08:46 08/16/24 06:27 Labs: Laboratory Results - last 24 hr 08/16/24 08/16/24 08/17/24 16:23 20:14 07:10 POC Glucose 161 H 151 H 110 Microbiology Microbiology Results: Microbiology 08/16/24 16:42 Gram Stain - Final Sputum - Expectorated Sputum Culture - Final Assessment and Plan (1) Parainfluenza: Status: Acute (2) Acute kidney injury superimposed on chronic kidney disease: Status: Acute (3) Acute exacerbation of CHF (congestive heart failure): Status: Acute Plan 54-year-old Turkish-speaking female with pertinent history of chronic combined systolic and diastolic congestive heart failure, chronic hypoxemic respiratory failure due to COPD on 2-3 L supplemental oxygen, hypertension, insulin-dependent diabetes mellitus, gastroesophageal reflux disease, mixed hyperlipidemia, CKD stage 3 who presents to the emergency department for evaluation of blood in vomitus. Bilateral pleural effusions Thoracentesis ordered Cytology and routine culture Acute on Chronic combined systolic and diastolic congestive heart failure EF 45-50% with impaired relaxation Is&Os not accurate s/p lasix drip, stopped due to worsening DILLON cardiology following> torsemide 40 mg daily follow BMP Acute kidney injury on CKD stage 3 due to tubular injury. creatinine trending down nephrology following Follow BMP Pneumonia/parainfluenza virus spiked fever overnight (08/08) repeat cxr concerning for pneumonia, s/p ceftriaxone, doxycycline Lactic acid normal. elevated creatinine due to ckd/volume not due to sepsis Possible viral with bacterial superinfection. RPP positive for parainfluenza blood cultures negative Symptomatic management Acute GI bleed episode of hemetemesis x1 (reason for admission), no further overt bleeding H/H improved after blood transfusion but then trended down Seen by GI, has declined EGD continue empiric PPI s/p procrit this am, 1U rbc /6 and IV iron x 4 days with improvement in H/H resume baseline po iron Vomiting resolved Acute hypokalemia replaced and improved hold Lokelma for now Chronic hypoxemic respiratory failure due to COPD Continue baseline supplemental oxygen and home inhalers Insulin-dependent diabetes mellitus lantus on hold for hypoglycemia, normal POCs monitor POCs with diet advancement, may need to resume lantus (on 10U at baseline) SSI, POCs HTN continue norvasc, metoprolol, hydralazine DVT prophylaxis: Mechanical due to anemia/possible GI bleed DNI dispo - PT rec home with PT vs SNF Requires ongoing inpatient stay for close monitoring of kidney function, H&H, hemodynamics, electrolytes (as above), IV lasix, close monitoring which is not possible in a lesser acute setting Quality Stroke Does the patient have a stroke diagnosis?: No VTE Prior VTE?: No VTE Risk Level:: Medical - moderate - high VTE Device Contraindication: N/A - Device Ordered VTE Drug Contraindication: Treatment Not Indicated
[2024-08-17 11:36] LABS: Glucose, Whole Blood 130 mg/dL (60-115)
[2024-08-17] MEDS: 0.9 % Sodium Chloride Flush 3 ML SYRINGE IVFLUSH ×2 (14:40→23:57)
[2024-08-17] MEDS: Lidocaine HCl 1 % MPF 5 ML VIAL SUBCUT (15:50)
[2024-08-17 16:25] LABS: Glucose, Whole Blood 149 mg/dL (60-115)
--- NOTE | 2024-08-17 16:26 | MHC.CM.PN ---
PT NOT MEDICALLY CLEARED, DCP HOME RESUME OVERLOOK [facility]
[2024-08-17] MEDS: Gabapentin 100 MG CAPSULE PO (20:52)
[2024-08-17 21:02] LABS: Glucose, Whole Blood 185 mg/dL (60-115)
[2024-08-17] MEDS: Insulin Lispro 100 UNIT/ML 3 ML VIAL SUBCUT (21:36)
[2024-08-18] VITALS (10 sets, daily range): BP systolic 128–151; BP diastolic 55–73; PULSE 80–89; RESP 13–20; TEMP 36.6–37.2; O2SAT 91–100
[2024-08-18 07:33] LABS: Glucose, Whole Blood 86 mg/dL (60-115)
--- NOTE | 2024-08-18 08:33 | P.PNNP_ITS ---
Subjective Subjective Date of Service: 08/18/24 Interval history: seen and examined this morning follow up for chf, dillon, paranfluenza feeling better, s/p thoracentesis Physical Exam 2 Vital Signs: Vital Signs: Last Vital Signs Temp 98.0 F 08/18/24 07:52 Pulse 86 08/18/24 07:52 Resp 17 08/18/24 07:52 BP 151/73 H 08/18/24 07:52 Pulse Ox 96 08/18/24 07:52 O2 Del Method Nasal Cannula 08/18/24 07:52 O2 Flow Rate 2 08/18/24 07:52 BMI result Body Mass Index 22.6 Const: General: no acute distress Orientation/consciousness: patient oriented x3 Eyes: EOM: EOMs intact bilaterally Neck: Neck: Yes supple Resp: Auscultation: diminished lung sounds Cardio: Rate: regular rate GI: Palpation (GI): Soft to palpation Neuro: General: patient oriented x3 and moves all extremities Objective Data Labs 08/13/24 08:46 08/16/24 06:27 Labs: Laboratory Results - last 24 hr 08/17/24 08/17/24 08/17/24 11:16 16:21 20:50 POC Glucose 130 H 149 H 185 H 08/18/24 07:25 POC Glucose 86 Microbiology Microbiology Results: Microbiology 08/16/24 16:42 Sputum - Expectorated Gram Stain - Final 08/16/24 16:42 Sputum - Expectorated Sputum Culture - Final 08/09/24 03:07 Blood - Venous Blood Culture - Final No growth after 5 days. 08/09/24 03:07 Blood - Venous Blood Culture - Final No growth after 5 days. 08/10/24 Unknown Urine clean catch - Clean Catch Midstream Urine Culture - Final Procedures Date of Service Date of Service: 08/18/24 Assessment & Plan Assessment and plan (1) Acute kidney injury superimposed on chronic kidney disease: Status: Acute Plan DILLON due to tubular injury; Serum creatinine stable Volume status improved. C/W current dose of torsemide Had PRBC & EPO & Iron. Await contralateral Thoracocentesis UO OK; No indication for HD yet C/W rest of current supportive management for now Recheck creatinine tomorrow and may need to adjust Diuretics Time Spent With Patient Time: Total time managing care of this patient today ____ minutes. Progress Note: Quality Stroke Does the patient have a stroke diagnosis?: No
[2024-08-18] MEDS: Torsemide 20 MG TABLET 40 MG PO (08:39)
[2024-08-18] MEDS: hydrALAZINE HCl 50 MG TABLET PO ×3 (08:39→22:10)
[2024-08-18] MEDS: Metoprolol Succinate ER 25 MG TAB.ER.24H PO (08:39)
[2024-08-18] MEDS: Ferrous Sulfate 324 MG TABLET.DR PO (08:40)
[2024-08-18] MEDS: amLODIPine Besylate 10 MG TABLET PO (08:40)
[2024-08-18] MEDS: 0.9 % Sodium Chloride Flush 3 ML SYRINGE IVFLUSH ×3 (08:40→22:52)
--- NOTE | 2024-08-18 09:52 | HO.PM.IMPN ---
Subjective Subjective Date of Service: 08/18/24 Interval History: seen and examined this morning follow up for chf, dillon, paranfluenza feeling better, plan for thoracentesis today Review of Systems Review of Systems: Yes all other systems are reviewed and are negative Constitutional Constitutional: Denies chills and Denies fever(s) Cardiovascular Cardiovascular: Denies chest pain and Denies palpitations Endocrine Endocrine: Denies palpitations Physical Exam Vital Signs: Vital Signs: Last Vital Signs Temp 98.0 F 08/18/24 07:52 Pulse 86 08/18/24 07:52 Resp 17 08/18/24 07:52 BP 151/73 H 08/18/24 07:52 Pulse Ox 96 08/18/24 07:52 O2 Del Method Nasal Cannula 08/18/24 07:52 O2 Flow Rate 2 08/18/24 07:52 BMI result Body Mass Index 22.6 Appearing in no acute distress lung sounds are clear to auscultation heart regular rate rhythm, clear S1, S2 positive bowel sounds, abdomen is soft, nontender neuro patient is alert x3, no focal deficits Objective Data Active Medications Acetaminophen (Acetaminophen 325 Mg Tablet) 650 mg PO Q6H PRN PRN Reason: Pain, Mild 1-3,fever,headache Last Admin: 08/08/24 23:47 Dose: 650 mg Documented By: CELESTE Amlodipine Besylate (Amlodipine Besylate 10 Mg Tablet) 10 mg PO DAILY [facility]; Protocol Last Admin: 08/18/24 08:40 Dose: 10 mg Documented By: SHAE Calcium Carbonate (Calcium Carbonate 750 Mg Tab.Chew) 750 mg PO Q4H PRN PRN Reason: Heartburn Last Admin: 08/08/24 01:29 Dose: 750 mg Documented By: CELESTE Dextrose (Dextrose 50 % 25 Gm/50 Ml Syringe) 25 gm IVPUSH Q15M PRN; Protocol PRN Reason: per Hypoglycemia Standing Ord. Last Admin: 08/06/24 06:47 Dose: 25 gm Documented By: CARY Ferrous Sulfate (Ferrous Sulfate 324 Mg Tablet.) 324 mg PO DAILY [facility] Last Admin: 08/18/24 08:40 Dose: 324 mg Documented By: SHAE Gabapentin (Gabapentin 100 Mg Capsule) 100 mg PO BEDTIME [facility] Last Admin: 08/17/24 20:52 Dose: 100 mg Documented By: CHARLI Glucose (Glucose Gel 15 Gm Gel..Gram.) 15 gm PO Q15M PRN; Protocol PRN Reason: per Hypoglycemia Standing Ord. Guaifenesin/Dextromethorphan (Guaifenesin Dm 100/10/5 Ml 5 Ml Syrup) 5 ml PO Q6H PRN PRN Reason: Cough Last Admin: 08/16/24 20:36 Dose: 5 ml Documented By: JUAN JOSÉ Hydralazine HCl (Hydralazine Hcl 50 Mg Tablet) 50 mg PO TID [facility]; Protocol Last Admin: 08/18/24 08:39 Dose: 50 mg Documented By: SHAE Insulin Human Lispro (Insulin Lispro 100 Unit/Ml 3 Ml Vial) 0 unit SUBCUT QIDACHS [facility]; Protocol Last Admin: 08/18/24 07:56 Dose: Not Given Documented By: SHAE Non-Admin Reason: No Insulin Coverage Magnesium Hydroxide (Milk Of Magnesia 30 Ml Oral.Susp) 30 ml PO DAILY PRN PRN Reason: Constipation Last Admin: 08/07/24 07:28 Dose: 30 ml Documented By: LIA Melatonin (Melatonin 3 Mg Tablet) 6 mg PO BEDTIME PRN PRN Reason: Insomnia Metoprolol Succinate (Metoprolol Succinate Er 25 Mg Tab.Er.24h) 25 mg PO DAILY [facility]; Protocol Last Admin: 08/18/24 08:39 Dose: 25 mg Documented By: SHAE Ondansetron HCl (Ondansetron Hcl 4 Mg/2 Ml Vial) 4 mg IVPUSH Q8H PRN PRN Reason: Nausea and Vomiting Last Admin: 08/14/24 21:01 Dose: 4 mg Documented By: CAMILO Sodium Chloride (0.9 % Sodium Chloride Flush 3 Ml Syringe) 3 ml IVFLUSH [facility] Last Admin: 08/18/24 08:40 Dose: 3 ml Documented By: SHAE Torsemide (Torsemide 20 Mg Tablet) 40 mg PO DAILY [facility]; Protocol Last Admin: 08/18/24 08:39 Dose: 40 mg Documented By: SHAE Labs 08/13/24 08:46 08/16/24 06:27 Labs: Laboratory Results - last 24 hr 08/17/24 08/17/24 08/17/24 11:16 16:21 20:50 POC Glucose 130 H 149 H 185 H 08/18/24 07:25 POC Glucose 86 Microbiology Microbiology Results: Microbiology 08/16/24 16:42 Gram Stain - Final Sputum - Expectorated Sputum Culture - Final Assessment and Plan (1) Parainfluenza: Status: Acute (2) Acute kidney injury superimposed on chronic kidney disease: Status: Acute (3) Acute exacerbation of CHF (congestive heart failure): Status: Acute Plan 54-year-old [place]-speaking female with pertinent history of chronic combined systolic and diastolic congestive heart failure, chronic hypoxemic respiratory failure due to COPD on 2-3 L supplemental oxygen, hypertension, insulin-dependent diabetes mellitus, gastroesophageal reflux disease, mixed hyperlipidemia, CKD stage 3 who presents to the emergency department for evaluation of blood in vomitus. Bilateral pleural effusions s/p Thoracentesis to left 1200ml, Cytology and routine culture pending plan for right side today Acute on Chronic combined systolic and diastolic congestive heart failure EF 45-50% with impaired relaxation Is&Os not accurate s/p lasix drip, stopped due to worsening [facility] cardiology following> torsemide 40 mg daily follow BMP Acute kidney injury on CKD stage 3 due to tubular injury. creatinine trending down nephrology following Follow BMP Pneumonia/parainfluenza virus. resolved spiked fever overnight (08/08) repeat cxr concerning for pneumonia, s/p ceftriaxone, doxycycline Lactic acid normal. elevated creatinine due to ckd/volume not due to sepsis Possible viral with bacterial superinfection. RPP positive for parainfluenza blood cultures negative Symptomatic management Acute GI bleed. resolved episode of hemetemesis x1 (reason for admission), no further overt bleeding H/H improved after blood transfusion but then trended down Seen by GI, has declined EGD continue empiric PPI s/p procrit this am, 1U rbc 4/6 and IV iron x 4 days with improvement in H/H resume baseline po iron Vomiting resolved Acute hypokalemia replaced and improved hold Lokelma for now Chronic hypoxemic respiratory failure due to COPD Continue baseline supplemental oxygen and home inhalers Insulin-dependent diabetes mellitus lantus on hold for hypoglycemia, normal POCs monitor POCs with diet advancement, may need to resume lantus (on 10U at baseline) SSI, POCs HTN continue norvasc, metoprolol, hydralazine DVT prophylaxis: Mechanical due to anemia/possible GI bleed DNI dispo - PT rec home with PT vs SNF, patient wants to go home Quality Stroke Does the patient have a stroke diagnosis?: No VTE Prior VTE?: No VTE Risk Level:: Medical - moderate - high VTE Device Contraindication: N/A - Device Ordered VTE Drug Contraindication: Treatment Not Indicated
[2024-08-18 10:36] LABS: Hemoglobin 9.7 g/dl (12.0-16.0); Mean Corpuscular HGB Conc 32.3 g/dl (31.0-35.0); Mean Corpuscular Hemoglobin 29.8 pg (27.0-33.0); Mean Platelet Volume 9.4 fL (9.4-12.3); Platelet Count 154 X10*3/uL (160-400); Red Blood Count 3.26 X10*6/uL (4.20-5.50); Red Cell Distribution Width 14.7 % (11.0-16.0)
[2024-08-18 10:48] LABS: Anion Gap 11 (12-20); Blood Urea Nitrogen 51 mg/dL (9-16); Calcium 8.2 mg/dL (8.4-10.2); Carbon Dioxide 28 mmol/L (22-29); Chloride 101 mmol/L (96-108); Creatinine Clr Calc Pharmacy 22.2; Estimated Glomerular Filt Rate 17; Glucose Random 144 mg/dL (60-115); Potassium 4.5 mmol/L (3.3-5.1); Sodium 135 mmol/L (135-145)
[2024-08-18 11:27] LABS: Glucose, Whole Blood 133 mg/dL (60-115)
--- NOTE | 2024-08-18 15:07 | P.DS_ITS ---
DS: Providers Provider Date of admission: 08/06/24 00:17 Primary care physician: None Physician Consults: 08/06/24 00:17 Consult to Gastroenterology Routine Consulting Provider: Mello Begum Reason for consultation: GI bleed 08/07/24 13:13 Consult to Cardiology Routine Consulting Provider: [facility] Reason for consultation: chf Has provider been notified: No DS: Diagnosis Discharge Diagnosis (1) Parainfluenza: Status: Acute (2) Acute kidney injury superimposed on chronic kidney disease: Status: Acute (3) Acute exacerbation of CHF (congestive heart failure): Status: Acute DS: Summary Hospital Course Hospital Course: History and physical as per admitting provider. Patient is a 54-year-old [place]-speaking female with a past medical history significant for COPD on O2 2-3 L via NC, chronic systolic and diastolic congestive heart failure and pleural effusions (requiring thoracentesis in the past), diabetes on insulin, chronic anemia requiring blood transfusion in the past, essential hypertension, orthostatic hypotension and hyperlipidemia, who presented to the ED due to shortness of breath, VICENET, bilateral lower extremity edema and pain, as well as dizziness. She also reports malodorous urine but not frequency, urgency, or dysuria. She is unsure if she has been taking her lasix at home, she reports that her son gives her all of her medications. She denies headache, fever, chills, nausea, vomtiing, abd pain, cough, rhinorrhea, or congestion. The pt is a poor historian. Bilateral pleural effusions. Continued bilateral pleural effusions noted on imaging despite significant diuresis. Right-sided thoracentesis with removal of 1300 mL on 08/17/2024, left-sided thoracentesis with removal of 1200 ml on 08/18/2024. Cytology and routine culture sent, she can follow up with the primary care provider for these results. Acute on Chronic combined systolic and diastolic congestive heart failure has been her biggest issue. She was on Lasix drip but stopped a few times because of her worsening kidney function. She was finally taken off Lasix drip on for 12 and started on torsemide 40 mg daily since then she was actually been doing really well and is diuresed adequately at this time. Echocardiogram on 08/13/2024 showed EF of 40-45% with abnormal diastolic function and elevated fi lling pressures. Patient should follow up with Cardiology for management of her diuresing medications. Acute kidney injury on CKD stage 3 . Secondary to tubular injury likely from diuresis. Creatinine trending down and at baseline at this time. Pneumonia/parainfluenza virus. Likely bacterial infection, RPP positive for parainfluenza. Treated with ceftriaxone and doxycycline, completed treatment. Did have 1 fever but no other signs of sepsis. Blood cultures have remained negative. Acute GI bleed. Had episode of hematemesis x1 with no further overt bleeding. She did receive a dose of Procrit, 1 unit of PRBCs on 08/09/2024 and IV iron for 4 days with improvement of H&H. She should continue PPI and iron supplementation. Vomiting. Short lived, resolved Acute hypokalemia. Replaced and improved Chronic hypoxemic respiratory failure due to COPD. 2 L Baseline oxygen and home inhalers Insulin-dependent diabetes mellitus. She had some episodes of hypoglycemia during hospitalization but that resolved. Blood sugars have remained stable. Continue Lantus HTN. continue norvasc, metoprolol, hydralazine PT rec STR but patient wanted to go home Physical Exam Vital Signs: Vital Signs: Last Vital Signs Temp 98.3 F 08/18/24 11:40 Pulse 84 08/18/24 11:40 Resp 17 08/18/24 11:40 BP 131/71 08/18/24 11:40 Pulse Ox 98 08/18/24 11:40 O2 Del Method Nasal Cannula 08/18/24 11:40 O2 Flow Rate 2 08/18/24 11:40 BMI result Body Mass Index 22.6 DS: Data Data Completed and Pending Completed studies during hospitalization [Text1]: Procedures Assistance with Respiratory Ventilation, Less than 24 Consecutive Hours, Continuous Positive Airway Pressure (02/08/24) Drainage of Left Pleural Cavity, Percutaneous Approach (05/31/24) Drainage of Right Pleural Cavity, Percutaneous Approach (04/07/24) Insertion of Infusion Device into Left Cephalic Vein, Percutaneous Approach (02/08/24) Transfusion of Nonautologous Red Blood Cells into Peripheral Vein, Percutaneous Approach (04/07/24) Pending studies at discharge: Pending at discharge 08/16/24 09:44 Cytology [PTH] Routine 08/17/24 15:46 Cytology [PTH] Routine Labs on day of discharge: Laboratory Results - last 24 hr 08/17/24 08/17/24 08/18/24 16:21 20:50 07:25 WBC RBC Hgb Hct MCV MCH MCHC RDW Plt Count MPV Absolute Nucleated RBC Nucleated RBC % (auto) Sodium Potassium Chloride Carbon Dioxide Anion Gap BUN Creatinine Estim Creat Clear Calc Estimated GFR POC Glucose 149 H 185 H 86 Random Glucose Calcium 08/18/24 08/18/24 10:23 11:14 WBC 8.0 RBC 3.26 L Hgb 9.7 L Hct 30.0 L MCV 92.0 MCH 29.8 MCHC 32.3 RDW 14.7 Plt Count 154 L MPV 9.4 Absolute Nucleated RBC 0.000 Nucleated RBC % (auto) 0.0 Sodium 135 Potassium 4.5 Chloride 101 Carbon Dioxide 28 Anion Gap 11 L BUN 51 H Creatinine 2.89 H Estim Creat Clear Calc 22.2 Estimated GFR 17 POC Glucose 133 H Random Glucose 144 H Calcium 8.2 L Discharge Plan Discharge Patient Disposition: Home Health Service Discharge Diagnosis: Pleural effusion Acute on chronic combined systolic and diastolic congestive heart failure Acute on chronic kidney injury Pneumonia/parainfluenza Acute GI bleed Acute hypokalemia Referrals: Neelima Hurtado MD [Physician] - 1 Week Discharge Medications: New torsemide 20 mg Tablet 40 mg PO DAILY Qty: 60 0RF Protocol: Hold for SBP< HOLD for SBP < : 90 omeprazole 20 mg capsule,delayed release(DR/EC) 20 mg PO DAILY Qty: 30 0RF Continued aspirin 81 mg tablet,delayed release (DR/EC) 1 tab PO DAILY (DME) FreeStyle Test Strip See Rx Instructions .Route Qty: 100 0RF Rx Instructions: As directed amlodipine 10 mg Tablet 10 mg PO DAILY Qty: 30 0RF Protocol: Hold for SBP< HOLD for SBP < : 90 gabapentin 100 mg capsule 100 mg PO BEDTIME ondansetron HCl 4 mg tablet 4 - 8 mg PO Q8H PRN (Reason: nausea/vomiting) insulin glargine [Lantus U-100 Insulin] 100 unit/mL solution 10 unit subcut BEDTIME metoprolol succinate 25 mg tablet extended release 24 hr 25 mg PO DAILY ferrous sulfate 324 mg (65 mg iron) tablet,delayed release (DR/EC) 324 mg PO DAILY Discontinued Lokelma 10 gram powder in packet 10 g PO DAILY Qty: 30 0RF furosemide 40 mg Tablet 40 mg PO DAILY Diet: Advance to usual diet Activity on Discharge: As tolerated Stand Alone Forms: Patient Portal Discharge page Print Language: [place] Care Plan Goals: Check daily weights, if greater than 3 lb has gained in 48 hours contact cardiology office or primary care office for adjustment of medications Health Concerns: Pleural effusion Acute on chronic combined systolic and diastolic congestive heart failure Acute on chronic kidney injury Pneumonia/parainfluenza Acute GI bleed Acute hypokalemia Plan of Treatment: Follow up with primary care provider as needed Take all medications as prescribed Assessment: See discharge summary
[2024-08-18] MEDS: Lidocaine HCl 1 % MPF 5 ML VIAL SUBCUT (15:56)
[2024-08-18 16:48] LABS: Glucose, Whole Blood 157 mg/dL (60-115)
[2024-08-18] MEDS: Insulin Lispro 100 UNIT/ML 3 ML VIAL SUBCUT ×2 (17:35→22:12)
[2024-08-18 21:05] LABS: Glucose, Whole Blood 176 mg/dL (60-115)
[2024-08-18] MEDS: Gabapentin 100 MG CAPSULE PO (22:10)
[2024-08-18] MEDS: Insulin Glargine,Hum.rec.anlog 100 UNIT/ML 10 ML VIAL 10 UNIT SUBCUT (22:11)
[2024-08-19 04:00] VITALS: BP 148/66; PULSE 96; RESP 16; TEMP 37; O2SAT 97
[2024-08-19 07:10] VITALS: BP 154/74; PULSE 95; RESP 17; TEMP 36.7; O2SAT 97
[2024-08-19 07:40] LABS: Glucose, Whole Blood 70 mg/dL (60-115)
[2024-08-19] MEDS: hydrALAZINE HCl 50 MG TABLET PO (10:31)
[2024-08-19] MEDS: Torsemide 20 MG TABLET 40 MG PO (10:32)
[2024-08-19] MEDS: Ferrous Sulfate 324 MG TABLET.DR PO (10:32)
[2024-08-19] MEDS: amLODIPine Besylate 10 MG TABLET PO (10:32)
[2024-08-19] MEDS: Metoprolol Succinate ER 25 MG TAB.ER.24H PO (10:32)
[2024-08-19] MEDS: 0.9 % Sodium Chloride Flush 3 ML SYRINGE IVFLUSH (10:55)
[2024-08-19 11:30] LABS: Glucose, Whole Blood 135 mg/dL (60-115)
--- NOTE | 2024-08-19 12:27 | P.F2F_ITS ---
Service Date Service Date: 08/19/24 Encounter Date of encounter: 08/19/24 Reasons for Services Signs and symptoms assessed: Please attach PT evaluations 08/11-08/18/24 Reason for correction: medication management, medication treatment and teach disease management Reason for physical therapy: home safety and mobility, therapeutic exercises, gait/transfer training, assess need for DME, ADL training and energy conservation MD Overseeing Care: Neelima Story Homebound: Leaving the home is medically contraindicated at this time without the asist of a device and/or another person due th the listed conditions above and below. Reason homebound: unsteady gait / fall risk and shortness of breath with minimal effort Certification: Based on the above findings, I certify that this patient is confined to the home and needs intermittent correction care, physical therapy and/or speech therapy, or continues to need occupational therapy. The patient is under my care, and I have initiated the establishment of the plan of care. The patient will be followed by a physician who will periodically review the plan of care. Time Spent With Patient Time: Total time managing care of this patient today ____ minutes.
--- NOTE | 2024-08-19 12:29 | PM.DS ---
DS: Providers Provider Date of Service: 08/19/24 Date of admission: 08/06/24 00:17 Date of discharge: 08/19/24 Primary care physician: None Physician Consults: 08/06/24 00:17 Consult to Gastroenterology Routine Consulting Provider: Mello Begum Reason for consultation: GI bleed 08/07/24 13:13 Consult to Cardiology Routine Consulting Provider: [facility] Reason for consultation: chf Has provider been notified: No DS: Diagnosis Discharge Diagnosis (1) Parainfluenza: Status: Acute (2) Acute kidney injury superimposed on chronic kidney disease: Status: Acute (3) Acute on chronic heart failure with mildly reduced ejection fraction (HFmrEF, 41-49%): Status: Acute (4) Hematemesis: Status: Acute DS: Summary Hospital Course Hospital Course: History and physical as per admitting hospitalist Steffany Douglass MD, 08/06/24: Patient is a 54-year-old [place]araguan-speaking female with a past medical history significant for COPD on O2 2-3 L via NC, chronic systolic and diastolic congestive heart failure and pleural effusions (requiring thoracentesis in the past), diabetes on insulin, chronic anemia requiring blood transfusion in the past, essential hypertension, orthostatic hypotension and hyperlipidemia, who presented to the ED due to shortness of breath, VICENTE, bilateral lower extremity edema and pain, as well as dizziness. She also reports malodorous urine but not frequency, urgency, or dysuria. She is unsure if she has been taking her lasix at home, she reports that her son gives her all of her medications. She denies headache, fever, chills, nausea, vomtiing, abd pain, cough, rhinorrhea, or congestion. The pt is a poor historian. She was admitted to the hospitalist service on telemetry. Hospital course by problem: acute-chronic HF with mildly reduced EF - Started on furosemide drip but held due to worsening kidney function; started on torsemide 40 mg daily with Cardiology consultation. TTE on 08/13/24 showed LVEF 40-45% with abnormal diastolic function. bilateral pleural effusions - Continued bilateral pleural effusions noted on imaging despite significant diuresis. Right-sided thoracentesis with removal of 1300 mL on 08/17/2024, left-sided thoracentesis with removal of 1200 ml on 08/18/2024. Pleural effusions resolved. Fluid studies including cytology and chemistries sent; she should follow up with her primary care doctor and product [employer] [facility] for results of these studies. DILLON/CKD3 - Secondary to tubular injury likely from diuresis. Creatinine return to baseline. Parainfluenza infection with possible bacterial superinfection - Treated with ceftriaxone and doxycycline; completed course in hospital. Not septic. Blood cultures negative. She remained on her chronic 2L of oxygen at all times. Acute GI bleeding - One episode of self-limited hematemesis with no further overt bleeding. She did receive a dose of Procrit, 1 unit of PRBCs on 08/09/2024 and IV iron for 4 days with improvement of H&H. She should continue PPI and iron supplementation. Short-term rehabilitation placement was recommended but the patient declined and was discharged home with VNA services/home PT. She should follow up with Primary Care and Cardiology in 1-2 weeks. Time Attestation Discharge Coordination Time (in mins): 45 Quality: Safe Use of Opioids Does Pt have an Active Cancer Diagnosis on the Problem List?: No Quality: Stroke Does the patient have a stroke diagnosis?: No Physical Exam Vital Signs: Vital Signs: Last Vital Signs Temp 98.1 F 08/19/24 07:10 Pulse 95 08/19/24 07:10 Resp 17 08/19/24 07:10 BP 154/74 H 08/19/24 07:10 Pulse Ox 97 08/19/24 07:10 O2 Del Method Nasal Cannula 08/19/24 07:10 O2 Flow Rate 2 08/19/24 07:10 BMI result Body Mass Index 22.6 Gen: in no acute distress HEENT: sclera anicteric, moist mucus membranes Neck: supple Lungs: clear to auscultation bilaterally Heart: regular rate and rhythm, no murmurs Abd: soft, non-tender, non-distended Ext: no edema Skin: warm/well-perfused Neuro: alert and oriented x3, no focal findings Psych: appropriate affect DS: Data Data Completed and Pending Completed studies during hospitalization [Text1]: Laboratory Results WBC 8.0 X10*3/uL (4.8-10.8) 08/18/24 10:23 RBC 3.26 X10*6/uL (4.20-5.50) L 08/18/24 10:23 Hgb 9.7 g/dl (12.0-16.0) L 08/18/24 10:23 Hct 30.0 % (37.0-47.0) L 08/18/24 10: MCV 92.0 fL (80.0-98.0) 08/18/24 10: MCH 29.8 pg (27.0-33.0) 08/18/24 10: MCHC 32.3 g/dl (31.0-35.0) 08/18/24 10: RDW 14.7 % (11.0-16.0) 08/18/24 10: Plt Count 154 X10*3/uL (160-400) L 08/18/24 10: MPV 9.4 fL (9.4-12.3) 08/18/24 10: Immature Gran % (Auto) 0.2 % (0.0-0.4) 08/06/24 04:43 Neut % (Auto) 52.5 % (45-73) 08/06/24 04:43 Lymph % (Auto) 35.6 % (20-40) 08/06/24 04:43 [place]lee % (Auto) 7.5 % (2-11) 08/06/24 04:43 Eos % (Auto) 3.8 % (0-4) 08/06/24 04:43 Baso % (Auto) 0.4 % (0-2) 08/06/24 04:43 Lymph # (Auto) 1.9 X10*3/uL (1.2-4.9) 08/06/24 04:43 Greenlee # (Auto) 0.4 X10*3/uL (0.1-1.2) 08/06/24 04:43 Eos # (Auto) 0.2 X10*3/uL (0.0-0.4) 08/06/24 04:43 Baso # (Auto) 0.0 X10*3/uL (0.0-0.2) 08/06/24 04:43 Abs Immat Gran (auto) 0.01 X10*3/uL (0.00-0.03) 08/06/24 04:43 Absolute Neuts (auto) 2.8 x10*3/uL (2.0-8.3) 08/06/24 04:43 Absolute Nucleated RBC 0.000 X10*3/uL (0.0-0.012) 08/18/24 10:23 Nucleated RBC % (auto) 0.0 /100WBC (0.0-0.2) 08/18/24 10:23 Hold Purple Top SEE NOTE 08/15/24 05:56 Sodium 135 mmol/L (135-145) 08/18/24 10:23 Potassium 4.5 mmol/L (3.3-5.1) 08/18/24 10:23 Chloride 101 mmol/L (96-108) 08/18/24 10:23 Carbon Dioxide 28 mmol/L (22-29) 08/18/24 10:23 Anion Gap 11 (12-20) L 08/18/24 10:23 BUN 51 mg/dL (9-16) H 08/18/24 10:23 Creatinine 2.89 mg/dL (0.5-1.4) H 08/18/24 10:23 Estim Creat Clear Calc 22.2 08/18/24 10:23 Estimated GFR 17 08/18/24 10:23 POC Glucose 135 mg/dL (60-115) H 08/19/24 11:21 Random Glucose 144 mg/dL (60-115) H 08/18/24 10:23 Lactic Acid 1.0 mmol/L (0.5-2.0) 08/09/24 03:08 Calcium 8.2 mg/dL (8.4-10.2) L 08/18/24 10:23 Magnesium 2.3 mg/dL (1.6-2.6) 08/16/24 06:27 Iron 25 mcg/dL (30-160) L 08/06/24 04:43 TIBC 157 mcg/dL (228-428) L 08/06/24 04:43 % Saturation 16 % (15-50) 08/06/24 04:43 Unsat Iron Binding 132 ug/dL 08/06/24 04:43 Ferritin 293 ng/mL (10-250) H 08/06/24 04:43 Total Bilirubin 0.2 mg/dL (0.0-1.0) 08/05/24 21:02 Direct Bilirubin < 0.2 mg/dL (0.0-0.5) 08/05/24 21:02 AST 27 U/L (5-31) 08/05/24 21:02 ALT 38 U/L (0-31) H 08/05/24 21:02 Alkaline Phosphatase 122 U/L (39-117) H 08/05/24 21:02 Troponin I High Sens 21.0 ng/L (<3.5-17.0) H 08/07/24 10:11 B-Natriuretic Peptide 689 pg/mL (<100) H 08/16/24 06:27 Total Protein 6.3 g/dL (6.5-8.0) L 08/05/24 21:02 Albumin 3.1 g/dL (3.5-5.0) L 08/05/24 21:02 Lipase 18 U/L (8-78) 08/05/24 21:02 Procalcitonin 0.57 ng/mL 08/09/24 07:11 Urine Color Yellow 08/10/24 07:36 Urine Appearance Cloudy 08/10/24 07:36 Urine pH 5.5 (5.0-9.0) 08/10/24 07:36 Ur Specific [place] 1.020 (1.005-1.025) 08/10/24 07:36 Urine Protein >=1000 (4+) mg/dL (Neg-Trace) H 08/10/24 07:36 Urine Glucose (UA) Negative mg/dL (Negative) 08/10/24 07:36 Urine Ketones Trace mg/dL (Negative) 08/10/24 07:36 Urine Blood Large (3+) (Negative) H 08/10/24 07:36 Urine Nitrite Negative (Negative) 08/10/24 07:36 Ur Leukocyte Esterase Small (1+) (Negative) H 08/10/24 07:36 Urine RBC >20 /HPF (0-2) H 08/10/24 07:36 Urine WBC 21-50 /HPF (0-5) H 08/10/24 07:36 Ur Squamous Epith Cells 3-5 /HPF (0-2) 08/10/24 07:36 Urine Bacteria None Seen (None Seen) 08/10/24 07:36 Hyaline Casts 3-5 /LPF (0-2) 08/10/24 07:36 Urine Yeast Present 08/06/24 06:59 Stool Occult Blood POSITIVE (NEGATIVE) 08/05/24 23:04 Respiratory Panel Herrera See Note 08/09/24 07:42 Adenovirus (Rapid PCR) Not Detected (Not Detect.) 08/09/24 07:42 B.pert (TEM-PCR) Not Detected (Not Detect.) 08/09/24 07:42 B.parapertussis DNA PCR Not Detected (Not Detect.) 08/09/24 07:42 C. pneumoniae DNA (PCR) Not Detected (Not Detect.) 08/09/24 07:42 Coronavirus OC43 (PCR) Not Detected (Not Detect.) 08/09/24 07:42 Coronavirus HKU1 (PCR) Not Detected (Not Detect.) 08/09/24 07:42 Coronavirus 229E (PCR) Not Detected (Not Detect.) 08/09/24 07:42 Coronavirus NL63 (PCR) Not Detected (Not Detect.) 08/09/24 07:42 Human Metapneumovir PCR Not Detected (Not Detect.) 08/09/24 07:42 Influenza A (RT-PCR) Not Detected (Not Detect.) 08/09/24 07:42 Influenza A (H1) PCR Not Detected (Not Detect.) 08/09/24 07:42 Influ A (H1/09) PCR Not Detected (Not Detect.) 08/09/24 07:42 Influenza A (H3) PCR Not Detected (Not Detect.) 08/09/24 07:42 Influenza Type A (PCR) NEGATIVE (Negative) 08/05/24 21:02 Influenza B (RT-PCR) Not Detected (Not Detect.) 08/09/24 07:42 Influenza Type B (PCR) NEGATIVE (Negative) 08/05/24 21:02 M. pneumoniae (PCR) Not Detected (Not Detect.) 08/09/24 07:42 Parainfluenza 1 (PCR) Not Detected (Not Detect.) 08/09/24 07:42 Parainfluenza 2 (PCR) Not Detected (Not Detect.) 08/09/24 07:42 Parainfluenza 3 (PCR) Detected (Not Detect.) A 08/09/24 07:42 Parainfluenza 4 (PCR) Not Detected (Not Detect.) 08/09/24 07:42 RSV (PCR) Not Detected (Not Detect.) 08/09/24 07:42 RSV RNA Qual (PCR) NEGATIVE (Negative) 08/05/24 21:02 Entero/Rhino (PCR) Not Detected (Not Detect.) 08/09/24 07:42 SARS-CoV-2 RNA (RT-PCR) Not Detected (Not Detect.) 08/09/24 07:42 Blood Type A Positive 08/09/24 11:26 Antibody Screen NEGATIVE 08/09/24 11:26 Crossmatch See Detail 08/09/24 11:26 Impressions Thoracentesis Ultrasound 08/18/24 13:00 IMPRESSION: Successful therapeutic left thoracentesis with drainage of 1200 mL ashish clear pleural fluid. No immediate complication. Electronically signed by: Duane Elena MD 08/18/2024 04:18 PM EDT RP Chest X-Ray 08/18/24 15:48 IMPRESSION: No definite pneumothorax status post left thoracentesis. Mild to moderate CHF. Cardiomegaly. Tiny right effusion has reaccumulated. Electronically signed by: Duane Elena MD 08/18/2024 04:15 PM EDT RP TTE 08/13/24 - Normal left ventricular cavity size. There is normal left ventricular wall thickness. The left ventricular systolic function is mildly decreased. The visually estimated ejection fraction is between 40-45%. - Elevated filling pressures. - Normal right ventricular cavity size and systolic function. - There is mild mitral valve regurgitation. - There is a large left sided pleural effusion. Pending studies at discharge: Pending at discharge 08/16/24 09:44 Cytology [PTH] Routine 08/17/24 15:46 Cytology [PTH] Routine Discharge Plan Discharge Anticipated Discharge Date/Time: 08/19/24 12:25 Patient Disposition: Home Health Service Discharge Diagnosis: Pleural effusion Acute on chronic combined systolic and diastolic congestive heart failure Acute on chronic kidney injury Pneumonia/parainfluenza Acute GI bleed Acute hypokalemia Referrals: Eplidio Cortez MD [Physician] - 2 Weeks Neelima Hurtado MD [Physician] - 1 Week Discharge Medications: New torsemide 20 mg Tablet 40 mg PO DAILY Qty: 60 0RF Protocol: Hold for SBP< HOLD for SBP < : 90 omeprazole 20 mg capsule,delayed release(DR/EC) 20 mg PO DAILY Qty: 30 0RF Continued aspirin 81 mg tablet,delayed release (DR/EC) 1 tab PO DAILY (DME) FreeStyle Test Strip See Rx Instructions .Route Qty: 100 0RF Rx Instructions: As directed amlodipine 10 mg Tablet 10 mg PO DAILY Qty: 30 0RF Protocol: Hold for SBP< HOLD for SBP < : 90 gabapentin 100 mg capsule 100 mg PO BEDTIME ondansetron HCl 4 mg tablet 4 - 8 mg PO Q8H PRN (Reason: nausea/vomiting) insulin glargine [Lantus U-100 Insulin] 100 unit/mL solution 10 unit subcut BEDTIME metoprolol succinate 25 mg tablet extended release 24 hr 25 mg PO DAILY ferrous sulfate 324 mg (65 mg iron) tablet,delayed release (DR/EC) 324 mg PO DAILY Discontinued Lokelma 10 gram powder in packet 10 g PO DAILY Qty: 30 0RF furosemide 40 mg Tablet 40 mg PO DAILY Discharge Orders: Discharge Order (Routine); Ordered 08/19/24 Ordered By: Javan Cardenas Diet: Advance to usual diet Activity on Discharge: As tolerated Stand Alone Forms: Patient Portal Discharge page Print Language: Nicaraguan Care Plan Goals: Check daily weights, if greater than 3 lb has gained in 48 hours contact cardiology office or primary care office for adjustment of medications Health Concerns: Pleural effusion Acute on chronic combined systolic and diastolic congestive heart failure Acute on chronic kidney injury Pneumonia/parainfluenza Acute GI bleed Acute hypokalemia Plan of Treatment: Follow up with primary care provider and cardiology in 1-2 weeks Take all medications as prescribed Low-sodium diet: less than 2000 mg of sodium daily. Weigh yourself daily and call your doctor if your weight goes up by more than 3 lb/day or 5 lb/week. Assessment: See discharge summary
--- NOTE | 2024-08-19 13:20 | MHC.CM.PN ---
Pt has been medically cleared for DC, she will go home via BLS and resume home care services from [facility].
[2024-08-25 08:03] LABS: Albumin Pleural Fluid 0.8; LDH Pleural Fluid 60; Total Protein Pleural Fluid 1.6
[2024-08-25 08:04] LABS: Amylase Pleural Fluid 22; Glucose Pleural Fluid 136
== END 2024-08-19 14:50 | disposition home health service (06) | DRG 253 ==
LOC: HO.ED 23:40 → HO.EDOVER 08-06 00:24 → HO.IMC 08-07 07:20
PROVIDERS: Hospitalist; Internal Medicine; Nurse Practitioner Acute Care; Physician Assistant Medical; Radiology Diagnostic Radiology; Admitting Provider Student in an Organized Health Care Education/Training Program; Emergency Provider Emergency Medicine Emergency Medical Services; Visit Provider Family Medicine
PROC: 0W993ZZ Drainage of Right Pleural Cavity, Percutaneous Approach (ICD-10-PCS; principal; 2024-08-17 14:30)
DX: K92.0 Hematemesis (principal); I50.43 Acute on chronic combined systolic (congestive) and diastolic (congestive) heart failure; N17.9 Acute kidney failure, unspecified; E11.649 Type 2 diabetes mellitus with hypoglycemia without coma; J91.8 Pleural effusion in other conditions classified elsewhere; J44.0 Chronic obstructive pulmonary disease with (acute) lower respiratory infection; J12.9 Viral pneumonia, unspecified; E11.22 Type 2 diabetes mellitus with diabetic chronic kidney disease; B96.89 Other specified bacterial agents as the cause of diseases classified elsewhere; E87.6 Hypokalemia; I13.0 Hypertensive heart and chronic kidney disease with heart failure and stage 1 through stage 4 chronic kidney disease, or unspecified chronic kidney disease; J96.11 Chronic respiratory failure with hypoxia; D50.9 Iron deficiency anemia, unspecified; B97.89 Other viral agents as the cause of diseases classified elsewhere; E78.2 Mixed hyperlipidemia; N18.30 Chronic kidney disease, stage 3 unspecified; Z99.81 Dependence on supplemental oxygen; Z20.822 Contact with and (suspected) exposure to COVID-19; Z79.4 Long term (current) use of insulin; Z79.82 Long term (current) use of aspirin; Z79.899 Other long term (current) drug therapy
CPT/HCPCS: 0241U; 32555; 36415; 71045; 74176; 80048; 80076; 81001; 82042; 82150; 82272; 82728; 82945; 82947; 83540; 83605; 83615; 83690; 83735; 83880; 84132; 84145; 84157; 84484; 85014; 85018; 85025; 85027; 86850; 86900; 86901; 86923; 87040; 87070; 87086; 87205; 87633; 88112; 88305; 93005; 93306; 94640; 97110; 97162; 97530; 99285; J0696; J0885; J1200; J1756; J1940; J2003; J2270; J2405; J2470; J2765; J3480; P9016; Q9957

== ENCOUNTER → 2024-08-05 19:41 | Outpatient (BNV) | payer MEDICAID, SELFPAY | PROVIDERS: Admitting Provider Student in an Organized Health Care Education/Training Program; Emergency Provider Emergency Medicine Emergency Medical Services; PCP Internal Medicine; Visit Provider Internal Medicine | DX: R11.2 Nausea with vomiting, unspecified (principal) | CPT/HCPCS: 93010 ==

== ENCOUNTER 2024-08-06 00:17 | Outpatient (BNV) | payer MEDICAID, SELFPAY | END 2024-08-11 08:20 | PROVIDERS: Admitting Provider Student in an Organized Health Care Education/Training Program; Emergency Provider Emergency Medicine Emergency Medical Services; PCP Internal Medicine; Visit Provider Radiology Diagnostic Radiology | DX: J90 Pleural effusion, not elsewhere classified (principal); J81.0 Acute pulmonary edema | CPT/HCPCS: 71045 ==

== ENCOUNTER 2024-08-06 00:17 | Outpatient (BNV) | payer MEDICAID, SELFPAY | END 2024-08-13 07:00 | PROVIDERS: Admitting Provider Student in an Organized Health Care Education/Training Program; Emergency Provider Emergency Medicine Emergency Medical Services; PCP Internal Medicine; Visit Provider Internal Medicine Cardiovascular Disease | DX: J81.0 Acute pulmonary edema (principal) | CPT/HCPCS: 93306 ==

== ENCOUNTER 2024-08-06 00:17 | Outpatient (BNV) | payer MEDICAID, SELFPAY | END 2024-08-07 07:16 | PROVIDERS: Admitting Provider Student in an Organized Health Care Education/Training Program; Emergency Provider Emergency Medicine Emergency Medical Services; PCP Internal Medicine; Visit Provider Internal Medicine | DX: R07.9 Chest pain, unspecified (principal) | CPT/HCPCS: 93010 ==

== ENCOUNTER 2024-08-06 00:17 | Outpatient (BNV) | payer MEDICAID, SELFPAY | END 2024-08-17 16:28 | PROVIDERS: Admitting Provider Student in an Organized Health Care Education/Training Program; Emergency Provider Emergency Medicine Emergency Medical Services; PCP Internal Medicine; Visit Provider Radiology Diagnostic Radiology | DX: J90 Pleural effusion, not elsewhere classified (principal); Z48.813 Encounter for surgical aftercare following surgery on the respiratory system | CPT/HCPCS: 71045 ==

== ENCOUNTER 2024-08-06 00:17 | Outpatient (BNV) | payer MEDICAID, SELFPAY | END 2024-08-06 00:30 | PROVIDERS: Admitting Provider Student in an Organized Health Care Education/Training Program; Emergency Provider Emergency Medicine Emergency Medical Services; Visit Provider Radiology Diagnostic Radiology | DX: J90 Pleural effusion, not elsewhere classified (principal); R60.1 Generalized edema | CPT/HCPCS: 74176 ==

== ENCOUNTER 2024-08-06 00:17 | Outpatient (BNV) | payer MEDICAID, SELFPAY | END 2024-08-18 13:00 | PROVIDERS: Admitting Provider Student in an Organized Health Care Education/Training Program; Emergency Provider Emergency Medicine Emergency Medical Services; Visit Provider Radiology Diagnostic Radiology | DX: J90 Pleural effusion, not elsewhere classified (principal) | CPT/HCPCS: 32555; 71045 ==

== ENCOUNTER 2024-08-06 00:17 | Outpatient (BNV) | payer MEDICAID, SELFPAY | END 2024-08-08 22:19 | PROVIDERS: Admitting Provider Student in an Organized Health Care Education/Training Program; Emergency Provider Emergency Medicine Emergency Medical Services; PCP Internal Medicine; Visit Provider Radiology Neuroradiology | DX: I50.9 Heart failure, unspecified (principal); I51.7 Cardiomegaly | CPT/HCPCS: 71045 ==

== ENCOUNTER → 2024-08-06 00:17 | Outpatient (BNV) | payer MEDICAID, SELFPAY | PROVIDERS: Admitting Provider Student in an Organized Health Care Education/Training Program; Emergency Provider Emergency Medicine Emergency Medical Services; Visit Provider Internal Medicine | DX: K92.0 Hematemesis (principal); D64.9 Anemia, unspecified; N17.9 Acute kidney failure, unspecified; N18.9 Chronic kidney disease, unspecified; E61.1 Iron deficiency | CPT/HCPCS: 99222 ==

== ENCOUNTER → 2024-08-06 00:17 | Outpatient (BNV) | payer MEDICAID, SELFPAY | PROVIDERS: Admitting Provider Student in an Organized Health Care Education/Training Program; Emergency Provider Emergency Medicine Emergency Medical Services; PCP Internal Medicine; Visit Provider Internal Medicine | DX: I50.33 Acute on chronic diastolic (congestive) heart failure (principal); N18.9 Chronic kidney disease, unspecified | CPT/HCPCS: 99223 ==

== ENCOUNTER → 2024-08-06 00:17 | Outpatient (BNV) | payer MEDICAID, SELFPAY | PROVIDERS: Admitting Provider Student in an Organized Health Care Education/Training Program; Emergency Provider Emergency Medicine Emergency Medical Services; Visit Provider Student in an Organized Health Care Education/Training Program | DX: N17.9 Acute kidney failure, unspecified (principal); N18.9 Chronic kidney disease, unspecified; E87.6 Hypokalemia; K92.0 Hematemesis | CPT/HCPCS: 99223; 99232; 99233; 99499 ==

== ENCOUNTER → 2024-08-06 00:17 | Outpatient (BNV) | payer MEDICAID, SELFPAY | PROVIDERS: Admitting Provider Student in an Organized Health Care Education/Training Program; Emergency Provider Emergency Medicine Emergency Medical Services; PCP Internal Medicine; Visit Provider Internal Medicine Nephrology | DX: N17.9 Acute kidney failure, unspecified (principal); N18.30 Chronic kidney disease, stage 3 unspecified | CPT/HCPCS: 99223; 99232 ==

== ENCOUNTER 2024-09-10 23:21 | Inpatient (IN) | payer MEDICAID, SELFPAY ==
--- NOTE | ~2024-09-10 | CT_ITS ---
CLINICAL HISTORY: pleural effusion CT chest without contrast Comparison: CT/SR - CT CHEST WO IV CON - 05/16/24 11:42 EST Findings: Heart size is approaching the upper limits. The visualized thyroid and mediastinum are unremarkable. Large bilateral pleural effusions. Partial atelectasis in both lungs. Most prominent in the lower lobes. Mild perihilar ground-glass opacities. Cholecystectomy. Generalized body wall edema. Old mild superior endplate L1 compression deformity L1. No acute fractures. IMPRESSION: 1. Findings suggesting volume overload. 2. Atelectasis both lungs. No definite consolidation. This document has been electronically signed by: Jose Miguel Leal MD on 09/11/2024 03:06:44
--- NOTE | ~2024-09-10 | CT_ITS ---
CLINICAL HISTORY: vomiting , weight loss CT abdomen and pelvis without contrast Comparison: CT/SR - CT CHEST WO IV CON - 09/11/24 02:[address]/SR - CT ABDOMEN PELVIS WO IV CON - 08/06/24 00:41 EDT Findings: Chest findings discussed on the same day comparison. Cholecystectomy. Abdominal solid organs unremarkable. No urolithiasis. No bowel obstruction, pneumoperitoneum, or pneumatosis. Extensive body wall edema. Moderate stool. Uterus and ovaries appear unremarkable. Normal appendix. Small amount of ascites. No acute fracture. IMPRESSION: Anasarca. Consider volume overload. This document has been electronically signed by: Jose Miguel Leal MD on 09/11/2024 03:11:30
--- NOTE | ~2024-09-10 | XR_ITS ---
CLINICAL HISTORY: sob 1 view chest x-ray Comparison: CR/TX/SR - XR CHEST 1V - 08/18/24 15:49 EDT Findings: Large bilateral pleural effusions. Probable cardiomegaly. Pulmonary vasculature congested. No acute fracture. IMPRESSION: Findings suggesting heart failure. Recommend follow-up. This document has been electronically signed by: Jose Miguel Leal MD on 09/11/2024 00:44:12
--- NOTE | 2024-09-10 23:26 | ED_ITS ---
HPI - General Adult General Chief complaint: General Medical Stated complaint: Failure to thrive, AMS Time Seen by Provider: 09/10/24 23:23 Source: patient Mode of arrival: EMS Limitations: no limitations History of Present Illness ED Provider: HPI narrative: Patient is a 54-year-old Sami-speaking female with a past medical history significant for COPD on O2 2-3 L via NC, chronic systolic and diastolic congestive heart failure and pleural effusions (requiring thoracentesis in the past), diabetes on insulin, chronic anemia requiring blood transfusion in the past, essential hypertension, orthostatic hypotension and hyperlipidemia, who presented to the ED but not feeling well for last 10 days unable to eat much vomiting multiple times complaining of generalized body ache patient noted to be saturating 88% at room air by EMS patient does use oxygen at home and has a baseline COPD patient is admitted here on 08/28 with bilateral pleural effusion status post thoracentesis which showed transudative malignant cells were negative Related Data Home Medications ?Medication ?Instructions ?Recorded ?Confirmed aspirin 81 mg tablet,delayed 1 tab PO DAILY 07/21/22 08/20/24 release ferrous sulfate 324 mg (65 mg 324 mg PO DAILY 04/07/24 08/20/24 iron) tablet,delayed release gabapentin 100 mg capsule 100 mg PO BEDTIME 05/31/24 08/20/24 insulin glargine 100 unit/mL 10 unit subcut BEDTIME 07/07/24 08/20/24 subcutaneous solution (Lantus U-100 Insulin) ondansetron HCl 4 mg tablet 4 - 8 mg PO Q8H PRN nausea/vomiting 07/07/24 08/20/24 metoprolol succinate 25 mg 25 mg PO DAILY 08/06/24 08/20/24 tablet,extended release 24 hr Previous Rx's ?Medication ?Instructions ?Recorded blood sugar diagnostic (FreeStyle #100 ea 10/02/22 Test strips) amlodipine 10 mg tablet 10 mg PO DAILY #30 tabs 09/19/23 omeprazole 20 mg capsule,delayed 20 mg PO DAILY #30 caps 08/18/24 release torsemide 20 mg tablet 40 mg PO DAILY #60 tabs 08/18/24 Allergies Allergy/AdvReac Type Severity Reaction Status Date / Time shrimp Allergy Swelling Verified 09/10/24 23:43 Review of Systems 2 Review of Systems: Yes all other systems are reviewed and are negative PMFSH Past Medical History Medical History Iron deficiency Chronic kidney disease Pneumonia of both lungs due to infectious organism Heartburn Urinary incontinence Seborrheic dermatitis Forgetfulness Low serum cortisol level Nausea with vomiting Acute kidney injury Anxiety GERD (gastroesophageal reflux disease) Unstable gait Diabetic polyneuropathy associated with type 2 diabetes mellitus Other constipation Idiopathic hypotension Lower abdominal pain Leg weakness Tooth disorder Positive RPR test Noncompliance with treatment Metabolic encephalopathy Illiteracy and low-level literacy Glaucoma Chest pain Congestive heart failure Bilateral pleural effusion Anemia CHF (congestive heart failure) Urinary tract infection Hypertension Symptomatic anemia Brain lesion Iron deficiency anemia HLD (hyperlipidemia) Depression Type 2 diabetes mellitus Family History Family History Other Hypertension Social History Social History Household Members: Children Household Members Other:: Daughter Housing: Apartment Do you presently have visiting nurse or other home services: Yes Unable to assess alcohol history related to: Unable to respond Alcohol intake: former Comment: NOT IMPULSIVES, NO CAMERA INDICATED Patient Tobacco Use Status: Never used Tobacco Smoked in Last 30 Days: No e-Cigarette/Vaping Use: Never Used Second Hand Smoke Exposure: No Use of substances other than those prescribed or required for medical reasons: No Advance Directives: Yes Advance Directives on File: Yes Advance Directives Date on File: 06/19/21 Patient : No service: No Current occupational status: unemployed Physical Exam ED Vital Signs: Vital Signs - 24 hr 09/10/24 23:36 09/11/24 00:09 09/11/24 00:54 Temperature 97.6 F 97.6 F 97.2 F Pulse Rate 82 80 76 Respiratory Rate 18 16 28 H Blood Pressure 171/83 H 149/70 H Pulse Oximetry 93 95 94 Oxygen Delivery Method Nasal Cannula Nasal Cannula Nasal Cannula Oxygen Flow Rate 3 3 09/11/24 01:35 09/11/24 01:46 09/11/24 03:05 Temperature Pulse Rate 75 73 73 Respiratory Rate 13 22 H 26 H Blood Pressure 149/64 H 156/65 H 157/75 H Pulse Oximetry 95 95 91 L Oxygen Delivery Method Nasal Cannula Nasal Cannula Nasal Cannula Oxygen Flow Rate 2 2 2 09/11/24 03:28 09/11/24 03:32 Temperature 97.9 F Pulse Rate 74 Respiratory Rate 16 Blood Pressure 157/75 H 155/75 H Pulse Oximetry 92 Oxygen Delivery Method Nasal Cannula Oxygen Flow Rate 2 BMI result Body Mass Index 22.7 Appearance: Alert. Oriented X3. No acute distress. Eyes: PERRLA, No Nystagmus ENT: Pharynx normal. Oral Mucosa dry Neck: Normal inspection. Neck supple. CVS: Normal heart rate and rhythm. Pulses normal. Respiratory: No respiratory distress. Equal air entry bilateral, decreased air entry bilateral Abdomen: Soft and nontender. Bowel sounds are present, no mass palpable, no CVA tenderness Skin: Skin warm and dry. Normal skin color. Normal skin turgor. Extremities:2+ lower extremity edema. No calf tenderness Neuro: Oriented X 3. No motor deficit. No sensory deficit.No cerebellar signs , cranial nerves II-XII intact Medications Administered Generic Name Dose Route Start Last Admin Trade Name Freq PRN Reason Stop Dose Admin Furosemide 200 mg/ Sodium 100 mls @ 2.5 mls/hr 09/11/24 04:15 09/11/24 04:39 Chloride IVCONT 5 mg/hr .Q24H JM 2.5 mls/hr Administration 5 MG/HR Discontinued Medications Generic Name Dose Route Start Last Admin Trade Name Freq PRN Reason Stop Dose Admin Ceftriaxone Sodium 1 gm 09/11/24 02:58 09/11/24 03:28 Ceftriaxone Sodium 1 Gm Vial IVPUSH 09/11/24 02:59 1 gm ONCE ONE Administration Furosemide 40 mg 09/11/24 03:00 09/11/24 03:28 Furosemide 40 Mg/4 Ml Vial IVPUSH 09/11/24 03:01 40 mg ONCE ONE Administration Protocol Sodium Chloride 1,000 mls @ 999 mls/hr 09/10/24 23:35 09/11/24 01:35 Ns IV 09/11/24 00:35 Infused .Q1H1M ONE Infusion Sodium Chloride 1,000 mls @ 999 mls/hr 09/11/24 01:26 09/11/24 03:02 Ns IV 09/11/24 02:26 Infused .Q1H1M ONE Infusion Potassium Chloride 10 meq in 100 mls @ 100 mls/hr 09/11/24 01:30 09/11/24 03:43 Potassium Chloride/H20 IV 09/11/24 03:29 Infused Q1H JM Infusion Ondansetron HCl 4 mg 09/11/24 00:38 09/11/24 00:44 Ondansetron Hcl 4 Mg/2 Ml Vial IVPUSH 09/11/24 00:39 Not Given ONCE ONE Potassium Chloride 40 meq 09/11/24 04:02 09/11/24 04:40 Potassium Chloride Packet 20 Meq Packet PO 09/11/24 04:03 40 meq ONCE ONE Administration Potassium Chloride 40 meq 09/11/24 04:40 09/11/24 05:03 Potassium Chloride Packet 20 Meq Packet PO 09/11/24 04:41 40 meq ONCE ONE Administration Medical Decision Making Medical Decision Making [facility] Narrative: patient with bilateral pleural effusion with anasarca with history of heart failure with hypoxia comes here with increased weakness and shortness a breath with nausea vomiting admit patient for diuresis furosemide drip was started Differential Diagnosis Differential Diagnoses: The differential diagnosis associated with the presentation includes Admission/Observation Consideration of admission/observation: Escalation of care including admission/observation considered Consult Healthcare Provider Management of the patient was discussed with: Hospitalist Lab Data [facility] Lab Attestation statement: I reviewed the patient's lab results. 09/11/24 00:04 09/11/24 01:02 Labs: Lab Results 09/11/24 09/11/24 09/11/24 Range/Units 00:04 00:11 01:02 WBC 6.6 (4.8-10.8) X10*3/uL RBC 4.03 L D (4.20-5.50) X10*6/uL Hgb 12.2 D (12.0-16.0) g/dl Hct 36.4 L D (37.0-47.0) % MCV 90.3 (80.0-98.0) fL MCH 30.3 (27.0-33.0) pg MCHC 33.5 (31.0-35.0) g/dl RDW 15.3 (11.0-16.0) % Plt Count 143 L (160-400) X10*3/uL MPV 8.6 L (9.4-12.3) fL Immature Gran % (Auto) 0.3 (0.0-0.4) % Neut % (Auto) 62.1 (45-73) % Lymph % (Auto) 26.5 (20-40) % Patrick % (Auto) 6.1 (2-11) % Eos % (Auto) 4.1 H (0-4) % Baso % (Auto) 0.9 (0-2) % Lymph # (Auto) 1.7 (1.2-4.9) X10*3/uL Patrick # (Auto) 0.4 (0.1-1.2) X10*3/uL Eos # (Auto) 0.3 (0.0-0.4) X10*3/uL Baso # (Auto) 0.1 (0.0-0.2) X10*3/uL Abs Immat Gran (auto) 0.02 (0.00-0.03) X10*3/uL Absolute Neuts (auto) 4.1 (2.0-8.3) x10*3/uL Absolute Nucleated RBC 0.000 (0.0-0.012) X10*3/uL Nucleated RBC % (auto) 0.0 (0.0-0.2) /100WBC Sodium 134 L 144 (135-145) mmol/L Potassium 6.0 H* D 2.5 L* D (3.3-5.1) mmol/L Chloride 106 129 H D (96-108) mmol/L Carbon Dioxide 21 L 13 L (22-29) mmol/L Anion Gap 13 5 L (12-20) BUN 33 H (9-16) mg/dL Creatinine 2.09 H (0.5-1.4) mg/dL Estim Creat Clear Calc 29.5 Estimated GFR 25 Random Glucose 93 (60-115) mg/dL Lactic Acid (0.5-2.0) mmol/L Calcium 8.6 (8.4-10.2) mg/dL Total Bilirubin 0.3 (0.0-1.0) mg/dL AST 26 (5-31) U/L ALT 11 (0-31) U/L Alkaline Phosphatase 107 (39-117) U/L Troponin I High Sens 18.6 H (<3.5-17.0) ng/L B-Natriuretic Peptide 1056 H (<100) pg/mL Total Protein 6.8 (6.5-8.0) g/dL Albumin 2.9 L (3.5-5.0) g/dL Lipase 35 (8-78) U/L Urine Color Yellow Urine Appearance Cloudy Urine pH 8.5 (5.0-9.0) Ur Specific [place] 1.015 (1.005-1.025) Urine Protein 300 (3+) H (Neg-Trace) mg/dL Urine Glucose (UA) Negative (Negative) mg/dL Urine Ketones Negative (Negative) mg/dL Urine Blood Small (1+) H (Negative) Urine Nitrite Negative (Negative) Ur Leukocyte Esterase Moderate (2+) H (Negative) Urine RBC 6-10 H (0-2) /HPF Urine WBC >50 H (0-5) /HPF Ur Squamous Epith Cells 6-10 (0-2) /HPF Urine Bacteria 4+ (None Seen) Hyaline Casts 0-2 (0-2) /LPF 09/11/24 Range/Units 03:24 WBC (4.8-10.8) X10*3/uL RBC (4.20-5.50) X10*6/uL Hgb (12.0-16.0) g/dl Hct (37.0-47.0) % MCV (80.0-98.0) fL MCH (27.0-33.0) pg MCHC (31.0-35.0) g/dl RDW (11.0-16.0) % Plt Count (160-400) X10*3/uL MPV (9.4-12.3) fL Immature Gran % (Auto) (0.0-0.4) % Neut % (Auto) (45-73) % Lymph % (Auto) (20-40) % Patrick % (Auto) (2-11) % Eos % (Auto) (0-4) % Baso % (Auto) (0-2) % Lymph # (Auto) (1.2-4.9) X10*3/uL Patrick # (Auto) (0.1-1.2) X10*3/uL Eos # (Auto) (0.0-0.4) X10*3/uL Baso # (Auto) (0.0-0.2) X10*3/uL Abs Immat Gran (auto) (0.00-0.03) X10*3/uL Absolute Neuts (auto) (2.0-8.3) x10*3/uL Absolute Nucleated RBC (0.0-0.012) X10*3/uL Nucleated RBC % (auto) (0.0-0.2) /100WBC Sodium (135-145) mmol/L Potassium (3.3-5.1) mmol/L Chloride (96-108) mmol/L Carbon Dioxide (22-29) mmol/L Anion Gap (12-20) BUN (9-16) mg/dL Creatinine (0.5-1.4) mg/dL Estim Creat Clear Calc Estimated GFR Random Glucose (60-115) mg/dL Lactic Acid 0.5 (0.5-2.0) mmol/L Calcium (8.4-10.2) mg/dL Total Bilirubin (0.0-1.0) mg/dL AST (5-31) U/L ALT (0-31) U/L Alkaline Phosphatase (39-117) U/L Troponin I High Sens (<3.5-17.0) ng/L B-Natriuretic Peptide (<100) pg/mL Total Protein (6.5-8.0) g/dL Albumin (3.5-5.0) g/dL Lipase (8-78) U/L Urine Color Urine Appearance Urine pH (5.0-9.0) Ur Specific [place] (1.005-1.025) Urine Protein (Neg-Trace) mg/dL Urine Glucose (UA) (Negative) mg/dL Urine Ketones (Negative) mg/dL Urine Blood (Negative) Urine Nitrite (Negative) Ur Leukocyte Esterase (Negative) Urine RBC (0-2) /HPF Urine WBC (0-5) /HPF Ur Squamous Epith Cells (0-2) /HPF Urine Bacteria (None Seen) Hyaline Casts (0-2) /LPF Independent Interpretation I performed an independent interpretation of an: EKG Interpretation: normal sinus rhythm heart rate 79 beats per minute normal interval normal axis no acute ST-T no acute ischemia Radiology Impression Discussion of test interpretation with radiology: I have reviewed the radiologist's reading. Radiologist Impression: [address] [id number] [address] Scan Report Signed Patient: Queta Loya MR#: [id number] : 1970 Acct:[id number] Age/Sex: 54 / F ADM Date: 09/11/24 Loc: .ED Attending Dr: Ordering Physician: Pop Guadalupe MD Date of Service: 09/11/24 Procedure(s): CT chest wo IV con Accession Number(s): [id number] cc: Physician,Unknown ; Pop Guadalupe MD~ Report Number: [id number]: Total DLP = 406.00 mGy-cm CLINICAL HISTORY: pleural effusion CT chest without contrast Comparison: CT/SR - CT CHEST WO IV CON - 05/16/24 11:42 EST Findings: Heart size is approaching the upper limits. The visualized thyroid and mediastinum are unremarkable. Large bilateral pleural effusions. Partial atelectasis in both lungs. Most prominent in the lower lobes. Mild perihilar ground-glass opacities. Cholecystectomy. Generalized body wall edema. Old mild superior endplate L1 compression deformity L1. No acute fractures. IMPRESSION: 1. Findings suggesting volume overload. 2. Atelectasis both lungs. No definite consolidation. Signed Patient: Queta Loya MR#: [id number] : 1970 Acct:[id number] Age/Sex: 54 / F ADM Date: 09/11/24 Loc: .ED Attending Dr: Ordering Physician: Pop Guadalupe MD Date of Service: 09/11/24 Procedure(s): CT abdomen pelvis wo IV con Accession Number(s): [id number] cc: Physician,Unknown ; Pop Guadalupe MD~ Report Number: [id number]: Total DLP = 779.00 mGy-cm CLINICAL HISTORY: vomiting , weight loss CT abdomen and pelvis without contrast Comparison: CT/SR - CT CHEST WO IV CON - 09/11/24 02:[address]/SR - CT ABDOMEN PELVIS WO IV CON - 08/06/24 00:41 EDT Findings: Chest findings discussed on the same day comparison. Cholecystectomy. Abdominal solid organs unremarkable. No urolithiasis. No bowel obstruction, pneumoperitoneum, or pneumatosis. Extensive body wall edema. Moderate stool. Uterus and ovaries appear unremarkable. Normal appendix. Small amount of ascites. No acute fracture. IMPRESSION: Anasarca. Consider volume overload. This document has been electronically signed by: Jose Miguel Leal MD on 09/11/2024 03:11:30 Critical Care Time Critical Care Time Critical Care Time: Yes Total Critical Care Time: 65 Attestation: The patient was critically ill with a high probability of imminent or life threatening deterioration. I spent greater than 70 minutes of discontinuous time evaluating the patient,delivering critical care at the bedside, discussing and evaluating pertinent data with consultants. Critical care time does not include time spent performing separately billable procedures or teaching. Total time spent performing critical care was 65 minutes. Discharge Plan Discharge Clinical Impression: Acute and chronic respiratory failure with hypoxia, Weakness, Acute hypokalemia, Chronic kidney disease, UTI (urinary tract infection), Anasarca Patient Disposition: Admitted As Inpatient
[2024-09-10 23:29] VITALS: BP 160/80; PULSE 83; O2SAT 94
--- NOTE | 2024-09-10 23:34 | ECG_ITS ---
Test Reason : CHF Blood Pressure : */* mmHG Vent. Rate : 79 BPM Atrial Rate : 79 BPM P-R Int : 124 ms QRS Dur : 70 ms QT Int : 396 ms P-R-T Axes : 66 -4 134 degrees QTcB Int : 454 ms Normal sinus rhythm Anterior infarct (cited on or before 07-Jul-2024) Abnormal ECG When compared with ECG of 07-Aug-2024 07:19, Nonspecific T wave abnormality now evident in Inferior leads Nonspecific T wave abnormality now evident in Lateral leads Referred By: Pop Guadalupe Electronically Signed By: SHANTI AVENDANO
[2024-09-10 23:36] VITALS: PULSE 82; RESP 18; TEMP 36.4; O2SAT 93; BMI 22.7
[2024-09-11] VITALS (20 sets, daily range): BP systolic 131–171; BP diastolic 64–83; PULSE 67–80; RESP 13–28; TEMP 36.2–36.9; O2SAT 91–98; BMI 24.3
--- NOTE | 2024-09-11 | ECG_ITS ---
Test Reason : Hyperkalemia Blood Pressure : */* mmHG Vent. Rate : 66 BPM Atrial Rate : 66 BPM P-R Int : 146 ms QRS Dur : 72 ms QT Int : 430 ms P-R-T Axes : 53 -7 133 degrees QTcB Int : 450 ms Normal sinus rhythm Low voltage QRS Nonspecific T wave abnormality Abnormal ECG When compared with ECG of 11-Sep-2024 00:16, No significant changes seen Referred By: Sherry Douglass Electronically Signed By: SHANTI AVENDANO
[2024-09-11] MEDS: 0.9 % Sodium Chloride 1,000 ML 999 ML IV ×2 (00:07→01:39)
[2024-09-11 00:08] LABS: MANUAL DIFF FLAG NO
[2024-09-11 00:18] LABS: Appearance Urine Cloudy; Color Urine Yellow; Glucose Urine UA Negative (Negative); Leukocyte Esterase Urine Moderate (2+) (Negative); Nitrite Urine Negative (Negative); PH 8.5 (5.0-9.0); Specific Gravity - Urine 1.015 (1.005-1.025); UMIC TRIGGER UACC YES; Urine Blood Small (1+) (Negative); Urine Ketones Negative (Negative); Urine Protein 300 (3+) mg/dL (Neg-Trace)
[2024-09-11 00:29] LABS: Bacteria Urine 4+ (None Seen); Hyaline Casts Urine 0-2 /LPF (0-2); UACC Culture Trigger YES; WBC Urine >50 /HPF (0-5)
[2024-09-11 00:30] LABS: Basophils Absolute Auto 0.1 X10*3/uL (0.0-0.2); Basophils Percent Auto 0.9 % (0-2); Eosinophils Absolute Auto 0.3 X10*3/uL (0.0-0.4); Eosinophils Percent Auto 4.1 % (0-4); Hematocrit 36.4 % (37.0-47.0); Hemoglobin 12.2 g/dl (12.0-16.0); Imm Gran Abs Auto 0.02 X10*3/uL (0.00-0.03); Imm Gran Pct Auto 0.3 % (0.0-0.4); Lymphocytes Absolute Auto 1.7 X10*3/uL (1.2-4.9); Lymphocytes Percent Auto 26.5 % (20-40); Mean Corpuscular HGB Conc 33.5 g/dl (31.0-35.0); Mean Corpuscular Hemoglobin 30.3 pg (27.0-33.0); Mean Corpuscular Volume 90.3 fL (80.0-98.0); Mean Platelet Volume 8.6 fL (9.4-12.3); Monocytes Absolute Auto 0.4 X10*3/uL (0.1-1.2); Monocytes Percent Auto 6.1 % (2-11); Neutrophils Absolute Auto 4.1 x10*3/uL (2.0-8.3); Neutrophils Percent Auto 62.1 % (45-73); Platelet Count 143 X10*3/uL (160-400); Red Blood Count 4.03 X10*6/uL (4.20-5.50); Red Cell Distribution Width 15.3 % (11.0-16.0); White Blood Count 6.6 X10*3/uL (4.8-10.8)
[2024-09-11 00:32] LABS: Troponin-I High Sensitivity 18.6 ng/L (<3.5-17.0)
[2024-09-11 00:38] LABS: Alanine Aminotransferase 11 U/L (0-31); Albumin Level 2.9 g/dL (3.5-5.0); Alkaline Phosphatase 107 U/L (39-117); Anion Gap 13 (12-20); Aspartate Amino Transferase 26 U/L (5-31); Bilirubin Total 0.3 mg/dL (0.0-1.0); Blood Urea Nitrogen 33 mg/dL (9-16); Calcium 8.6 mg/dL (8.4-10.2); Carbon Dioxide 21 mmol/L (22-29); Chloride 106 mmol/L (96-108); Creatinine Clr Calc Pharmacy 29.5; Estimated Glomerular Filt Rate 25; Glucose Random 93 mg/dL (60-115); Lipase 35 U/L (8-78); Sodium 134 mmol/L (135-145); Total Protein 6.8 g/dL (6.5-8.0)
[2024-09-11 01:23] LABS: Anion Gap 5 (12-20); Carbon Dioxide 13 mmol/L (22-29); Chloride 129 mmol/L (96-108); Potassium 2.5 mmol/L (3.3-5.1); Sodium 144 mmol/L (135-145)
[2024-09-11] MEDS: Potassium Chloride/H20 10 MEQ/100 ML PIGGYBACK 100 MEQ IV ×2 (01:39→02:42)
[2024-09-11] MEDS: Furosemide 40 MG/4 ML VIAL IVPUSH (03:28)
[2024-09-11] MEDS: cefTRIAXone sodium 1 GM VIAL IVPUSH ×2 (03:28→20:21)
[2024-09-11 03:48] LABS: B Type Natriuretic Peptide 1056 pg/mL (<100)
[2024-09-11 03:48] LABS: Lactic Acid 0.5 mmol/L (0.5-2.0)
--- NOTE | 2024-09-11 04:28 | P.HPHOSP_ITS ---
History of Present Illness Date of Service: 09/11/24 Chief Complaint: DYspnea, vomiting This is a 54-year-old Nigerian-speaking female with pertinent history of chronic combined systolic and diastolic congestive heart failure, chronic hypoxemic respiratory failure due to COPD on 2-3 L supplemental oxygen, hypertension, insulin-dependent diabetes mellitus, gastroesophageal reflux disease, mixed hyperlipidemia, CKD stage 3 who presents to the emergency department for evaluation of dyspnea and vomiting. History obtained with the help of industrial gas fitter helper. Patient states her symptoms started 5 days prior to presentation. She has been having dyspnea which is slightly worse when lying down. Also has been having generalized abdominal discomfort with nausea and multiple episodes of nonbloody emesis. Patient with poor p.o. intake and not feeling well. Generalized muscle eyes with easy fatigability. Also endorses increased urinary frequency. No chest pain or palpitations. No fever, chills, changes in urinary or bowel habits. In the emergency department, BNP found to be elevated and imaging concerning for fluid overload and anasarca. Review of Systems 2 Constitutional: Constitutional: Reports fatigue, Reports malaise and Reports poor appetite Cardiovascular: Cardiovascular: Reports dyspnea on exertion and Reports orthopnea Respiratory: Respiratory: Reports dyspnea on exertion Gastrointestinal: Gastrointestinal: Reports abdominal pain, Reports nausea and Reports vomiting Genitourinary: Comments: Increased urinary frequency Endocrine: Endocrine: Reports fatigue [facility] Medical History Iron deficiency Chronic kidney disease Pneumonia of both lungs due to infectious organism Heartburn Urinary incontinence Seborrheic dermatitis Forgetfulness Low serum cortisol level Nausea with vomiting Acute kidney injury Anxiety GERD (gastroesophageal reflux disease) Unstable gait Diabetic polyneuropathy associated with type 2 diabetes mellitus Other constipation Idiopathic hypotension Lower abdominal pain Leg weakness Tooth disorder Positive RPR test Noncompliance with treatment Metabolic encephalopathy Illiteracy and low-level literacy Glaucoma Chest pain Congestive heart failure Bilateral pleural effusion Anemia CHF (congestive heart failure) Urinary tract infection Hypertension Symptomatic anemia Brain lesion Iron deficiency anemia HLD (hyperlipidemia) Depression Type 2 diabetes mellitus Family History Other Hypertension Social History Household Members: Children Household Members Other:: Daughter Housing: Apartment Do you presently have visiting nurse or other home services: Yes Unable to assess alcohol history related to: Unable to respond Alcohol intake: former Comment: NOT IMPULSIVES, NO CAMERA INDICATED Patient Tobacco Use Status: Never used Tobacco Smoked in Last 30 Days: No e-Cigarette/Vaping Use: Never Used Second Hand Smoke Exposure: No Use of substances other than those prescribed or required for medical reasons: No Advance Directives: Yes Advance Directives on File: Yes Advance Directives Date on File: 06/19/21 Patient : No service: No Current occupational status: unemployed Meds Allergies Allergy/AdvReac Type Severity Reaction Status Date / Time shrimp Allergy Swelling Verified 09/10/24 23:43 Active Medications: Current Medications Furosemide 200 mg/ Sodium (Chloride) 100 mls @ 2.5 mls/hr IVCONT .Q24H JM Home Medications ?Medication ?Instructions ?Recorded ?Confirmed ?Last Taken ?Type aspirin 81 mg tablet,delayed 1 tab PO DAILY 07/21/22 08/20/24 07/07/24 History release ferrous sulfate 324 mg (65 mg 324 mg PO DAILY 04/07/24 08/20/24 07/07/24 History iron) tablet,delayed release gabapentin 100 mg capsule 100 mg PO BEDTIME 05/31/24 08/20/24 07/06/24 History insulin glargine 100 unit/mL 10 unit subcut BEDTIME 07/07/24 08/20/24 Unknown History subcutaneous solution (Lantus U-100 Insulin) ondansetron HCl 4 mg tablet 4 - 8 mg PO Q8H PRN nausea/vomiting 07/07/24 08/20/24 Unknown History metoprolol succinate 25 mg 25 mg PO DAILY 08/06/24 08/20/24 Unknown History tablet,extended release 24 hr Physical Exam 2 Vital Signs and Narrative: Vital Signs: Last Vital Signs Temp 97.8 F 09/11/24 04:12 Pulse 72 09/11/24 04:12 Resp 13 09/11/24 04:12 BP 154/80 H 09/11/24 04:12 Pulse Ox 95 09/11/24 04:12 O2 Del Method Nasal Cannula 09/11/24 04:12 O2 Flow Rate 3 09/11/24 04:12 Oxygen Flow Rate 3 09/10/24 23:36 BMI result Body Mass Index 22.7 Middle-aged female lying in bed in mild distress on supplemental oxygen Neck supple Regular rate and rhythm, S1-S2 heard Bilateral crackles present Abdomen soft nontender, no guarding, no rigidity Patient is awake, alert and oriented x3 ; no focal motor deficit Psych: Normal mood Pedal edema present Results Labs 09/11/24 00:04 09/11/24 01:02 Labs: Laboratory Results - last 24 hr 09/11/24 09/11/24 09/11/24 00:04 00:11 01:02 MCV 90.3 MCH 30.3 MCHC 33.5 RDW 15.3 Plt Count 143 L MPV 8.6 L Immature Gran % (Auto) 0.3 Neut % (Auto) 62.1 Lymph % (Auto) 26.5 [place]clain % (Auto) 6.1 Eos % (Auto) 4.1 H Baso % (Auto) 0.9 Lymph # (Auto) 1.7 [place]cl[place] # (Auto) 0.4 Eos # (Auto) 0.3 Baso # (Auto) 0.1 Abs Immat Gran (auto) 0.02 Absolute Neuts (auto) 4.1 Absolute Nucleated RBC 0.000 Nucleated RBC % (auto) 0.0 Anion Gap 13 5 L Estim Creat Clear Calc 29.5 Estimated GFR 25 Random Glucose 93 Lactic Acid Calcium 8.6 Total Bilirubin 0.3 AST 26 ALT 11 Alkaline Phosphatase 107 B-Natriuretic Peptide 1056 H Total Protein 6.8 Albumin 2.9 L Lipase 35 Urine Color Yellow Urine Appearance Cloudy Urine pH 8.5 Ur Specific [place] 1.015 Urine Protein 300 (3+) H Urine Glucose (UA) Negative Urine Ketones Negative Urine Blood Small (1+) H Urine Nitrite Negative Ur Leukocyte Esterase Moderate (2+) H Urine RBC 6-10 H Urine WBC >50 H Ur Squamous Epith Cells 6-10 Urine Bacteria 4+ Hyaline Casts 0-2 09/11/24 03:24 MCV MCH MCHC RDW Plt Count MPV Immature Gran % (Auto) Neut % (Auto) Lymph % (Auto) [place] % (Auto) Eos % (Auto) Baso % (Auto) Lymph # (Auto) [place] # (Auto) Eos # (Auto) Baso # (Auto) Abs Immat Gran (auto) Absolute Neuts (auto) Absolute Nucleated RBC Nucleated RBC % (auto) Anion Gap Estim Creat Clear Calc Estimated GFR Random Glucose Lactic Acid 0.5 Calcium Total Bilirubin AST ALT Alkaline Phosphatase B-Natriuretic Peptide Total Protein Albumin Lipase Urine Color Urine Appearance Urine pH Ur Specific [place] Urine Protein Urine Glucose (UA) Urine Ketones Urine Blood Urine Nitrite Ur Leukocyte Esterase Urine RBC Urine WBC Ur Squamous Epith Cells Urine Bacteria Hyaline Casts Assessment and Plan (1) Acute on chronic heart failure with mildly reduced ejection fraction (HFmrEF, 41-49%): Status: Acute Plan This is a 54-year-old Nigerian-speaking female with pertinent history of chronic combined systolic and diastolic congestive heart failure, chronic hypoxemic respiratory failure due to COPD on 2-3 L supplemental oxygen, hypertension, insulin-dependent diabetes mellitus, gastroesophageal reflux disease, mixed hyperlipidemia, CKD stage 3 who presents to the emergency department for evaluation of dyspnea and vomiting. #. Acute on chronic combined systolic and diastolic congestive heart failure with anasarca: Initiated on IV Lasix drip in the ER. Strict I's and O's. Low- salt diet. #. Acute hypokalemia: Repleting. Initial potassium of 6 on BMP and repeat with 2.5 #. Chronic hypoxemic respiratory failure due to COPD: Continue baseline supplemental oxygen and home inhalers #. Insulin-dependent diabetes mellitus: Initiating Accu-Cheks with sliding scale insulin. Reduce home basal insulin once med rec complete #. Gastroesophageal reflux disease: On PPI Med rec pending DVT prophylaxis: Lovenox DNI. Discussed with patient at bedside with the help of industrial gas fitter helper Admit as inpatient and will require two night minimum hospital stay for close monitoring of IV diuresis (as above), which is not possible in a lesser acute setting. Quality Stroke Does the patient have a stroke diagnosis?: No VTE Prior VTE?: No VTE Risk Level:: Medical - moderate - high VTE Device Contraindication: Treatment Not Indicated VTE Drug Contraindication: N/A - Med Ordered
[2024-09-11] MEDS: Furosemide 200 MG in 0.9 % Sodium Chloride 80 ML IVCONT (04:39)
[2024-09-11] MEDS: Potassium Chloride Packet 20 MEQ PACKET 40 MEQ PO ×2 (04:40→05:03)
[2024-09-11 06:04] LABS: Venous Blood Gas Refer to POC result
[2024-09-11 06:06] LABS: VBG Base Excess 0.6 mmol/L; VBG HCO3 28 mmol/L (22-26); VBG pCO2 58 mmHg; VBG pH 7.29 (7.32-7.43); VBG pO2 47 mmHg
[2024-09-11 06:14] LABS: Anion Gap 12 (12-20); Blood Urea Nitrogen 34 mg/dL (9-16); Calcium 8.4 mg/dL (8.4-10.2); Carbon Dioxide 24 mmol/L (22-29); Chloride 107 mmol/L (96-108); Estimated Glomerular Filt Rate 23; Glucose Random 91 mg/dL (60-115); Potassium 6.6 mmol/L (3.3-5.1); Sodium 136 mmol/L (135-145)
--- NOTE | 2024-09-11 06:19 | PM.EVENT ---
Event Note Date of Service: 09/11/24 Event Note: Initial potassium on BMP was 6. Upon repeat potassium was 2.5 without intervention. Patient received 80 mEq of potassium subsequently and repeat potassium on BMP is now 6.6. Concern for erroneous lab values. Will repeat electrolytes. Giving IV insulin and calcium gluconate. Obtaining EKG Also noted mild respiratory acidosis on VBG. Will try BiPAP and repeat gases in 2 hours. Time Spent With Patient Time: Total time managing care of this patient today ____ minutes.
[2024-09-11] MEDS: Insulin Regular, Human 100 UNIT/ML 10 ML VIAL IVPUSH (06:33)
[2024-09-11] MEDS: Calcium Gluconate/NaCl,Iso-Osm 2 GM/100 ML PLAST..BAG IV (06:35)
[2024-09-11 07:05] LABS: Glucose, Whole Blood 72 mg/dL (60-115)
[2024-09-11 07:33] LABS: Anion Gap 12 (12-20); Carbon Dioxide 21 mmol/L (22-29); Chloride 109 mmol/L (96-108); Potassium 6.5 mmol/L (3.3-5.1); Sodium 135 mmol/L (135-145)
[2024-09-11] MEDS: Dextrose 50 % 25 GM/50 ML SYRINGE IVPUSH ×2 (07:39→08:43)
[2024-09-11 07:40] LABS: Glucose, Whole Blood 43 mg/dL (60-115)
[2024-09-11 08:21] LABS: Glucose, Whole Blood 107 mg/dL (60-115)
[2024-09-11 08:21] LABS: Glucose, Whole Blood 77 mg/dL (60-115)
--- NOTE | 2024-09-11 08:35 | PC.NURSE ---
Assumed care at 0700. At this time POC was obtained and was in the 70s. A repeat was done at 730 and was 42. D50 was given and POCs were repeated every 15 minutes per hypoglycemia standing order. Third POC was 67 at which point another amp of D50 is indicated due to sugar <70
[2024-09-11 08:36] LABS: Glucose, Whole Blood 67 mg/dL (60-115)
--- NOTE | 2024-09-11 08:55 | PHA.MEDREC ---
Addendum entered by [facility] located [facility] 09/11/24 11:35: REVIEWED, provider made aware Original Note: Pharmacy Consult ? Medication Reconciliation Pharmacy has completed the medication reconciliation. Spoke to patient son Bin, who was able to confirm the patient current medications using patients Rx bottles. Son confirmed Lantus U-100 10 units at bedtime, Amlodipine 10 mg, however last fill date was 01/28/24 for 90 days. Son states patient has not continued taking Omeprazole 20 mg and Torsemide 40 mg that was given to patient upon discharge . Son was not aware of any new medications. Son also stated that patient is still taking Furosemide 40 mg, even though this medications was discontinued with last discharge. Son expresses concern and frustration regarding the patient's resistance to taking her medications and completing daily tasks, Such as eating and bathing.
[2024-09-11] MEDS: Enoxaparin Sodium 30 MG/0.3 ML SYRINGE SUBCUT (09:04)
[2024-09-11 09:06] LABS: Glucose, Whole Blood 136 mg/dL (60-115)
[2024-09-11 09:17] LABS: Venous Blood Gas Refer to POC result
[2024-09-11 09:17] LABS: VBG Base Excess 1.1 mmol/L; VBG HCO3 28 mmol/L (22-26); VBG pCO2 57 mmHg; VBG pH 7.29 (7.32-7.43); VBG pO2 64 mmHg
[2024-09-11 09:21] LABS: Glucose, Whole Blood 107 mg/dL (60-115)
[2024-09-11 09:36] LABS: Glucose, Whole Blood 92 mg/dL (60-115)
[2024-09-11 10:39] LABS: Glucose, Whole Blood 69 mg/dL (60-115)
--- NOTE | 2024-09-11 10:49 | PC.NURSE ---
most recent POC 68. Pt given food and drink. PA notified. pt also taken off bipap by PA and verbal order to DC bipap and place pt back on her baseline 2L o2.
--- NOTE | 2024-09-11 11:30 | P.CONNP_ITS ---
History of Present Illness Reason for Consult Consult date: 09/11/24 Reason for consult: [place] Chief Complaint Chief complaint: dyspnea History of Present Illness Narrative: 54-year-old female with chronic combined systolic and diastolic congestive heart failure, hypertension, type 2 diabetes, CKD stage 4. Presented 09/11 with dyspnea and vomiting, admitted for fluid overload and anasarca. Nephrology consulted for hyperkalemia, CKD. On presentation potassium was 6.0; K shortly after initial level was 2.5 without intervention, so concern for erroneous lab value. Potassium was given for hypokalemia, subsequent potassium 6.6 this a.m. Patient has since been on a lasix drip for management of fluid overload. Of note, per son patient may not have been taking torsemide 40mg daily as prescribed at home, was taking 20mg lasix furosemide instead. blood pressure this a.m. 140/66 creatinine 2.21 this a.m. (most recent creatinine prior to admission was 2.89) patient's albumin mildly low at 2.9 she denies shortness of breath, chest pain, states she is voiding complains of chronic leg pain denies other symptoms Review of Systems Constitutional: Reports fatigue Cardiovascular: Denies chest pain, Reports leg edema and Denies dyspnea Respiratory: Denies dyspnea Gastrointestinal: Denies abdominal pain, Denies diarrhea, Denies nausea and Denies vomiting Genitourinary: Denies hematuria, Denies difficulty voiding and Denies dysuria Musculoskeletal: Denies back pain Skin/Breast: Denies rash Endocrine: Reports fatigue PMFSH Past Medical History Medical History Iron deficiency Chronic kidney disease Pneumonia of both lungs due to infectious organism Heartburn Urinary incontinence Seborrheic dermatitis Forgetfulness Low serum cortisol level Nausea with vomiting Acute kidney injury Anxiety GERD (gastroesophageal reflux disease) Unstable gait Diabetic polyneuropathy associated with type 2 diabetes mellitus Other constipation Idiopathic hypotension Lower abdominal pain Leg weakness Tooth disorder Positive RPR test Noncompliance with treatment Metabolic encephalopathy Illiteracy and low-level literacy Glaucoma Chest pain Congestive heart failure Bilateral pleural effusion Anemia CHF (congestive heart failure) Urinary tract infection Hypertension Symptomatic anemia Brain lesion Iron deficiency anemia HLD (hyperlipidemia) Depression Type 2 diabetes mellitus Family History Family History Other Hypertension Social History Social History Household Members: Children Household Members Other:: Daughter Housing: Apartment Do you presently have visiting nurse or other home services: Yes Unable to assess alcohol history related to: Unable to respond Alcohol intake: former Comment: NOT IMPULSIVES, NO CAMERA INDICATED Patient Tobacco Use Status: Never used Tobacco Smoked in Last 30 Days: No e-Cigarette/Vaping Use: Never Used Second Hand Smoke Exposure: No Use of substances other than those prescribed or required for medical reasons: No Advance Directives: Yes Advance Directives on File: Yes Advance Directives Date on File: 06/19/21 Patient : No service: No Current occupational status: unemployed Meds Allergies Allergy/AdvReac Type Severity Reaction Status Date / Time shrimp Allergy Swelling Verified 09/10/24 23:43 Active Medications: Current Medications Acetaminophen (Acetaminophen 325 Mg Tablet) 650 mg PO Q6H PRN PRN Reason: Pain, Mild 1-3,fever,headache Calcium Carbonate (Calcium Carbonate 750 Mg Tab.Chew) 750 mg PO Q4H PRN PRN Reason: Heartburn Ceftriaxone Sodium (Ceftriaxone Sodium 1 Gm Vial) 1 gm IVPUSH Q24H JM Dextrose (Dextrose 50 % 25 Gm/50 Ml Syringe) 25 gm IVPUSH Q15M PRN; Protocol PRN Reason: per Hypoglycemia Standing Ord. Last Admin: 09/11/24 08:43 Dose: 25 gm Enoxaparin Sodium (Enoxaparin Sodium 30 Mg/0.3 Ml Syringe) 30 mg SUBCUT Q24H JM Last Admin: 09/11/24 09:04 Dose: 30 mg Ferrous Sulfate (Ferrous Sulfate 324 Mg Tablet.Dr) 324 mg PO DAILY JM Gabapentin (Gabapentin 100 Mg Capsule) 100 mg PO BEDTIME JM Glucose (Glucose Gel 15 Gm Gel..Gram.) 15 gm PO Q15M PRN; Protocol PRN Reason: per Hypoglycemia Standing Ord. Furosemide 200 mg/ Sodium (Chloride) 100 mls @ 2.5 mls/hr IVCONT .Q24H JM Last Admin: 09/11/24 04:39 Dose: 5 mg/hr, 2.5 mls/hr Insulin Human Lispro (Insulin Lispro 100 Unit/Ml 3 Ml Vial) 0 unit SUBCUT QIDACHS JM; Protocol Last Admin: 09/11/24 07:52 Dose: Not Given Magnesium Hydroxide (Milk Of Magnesia 30 Ml Oral.Susp) 30 ml PO DAILY PRN PRN Reason: Constipation Melatonin (Melatonin 3 Mg Tablet) 6 mg PO BEDTIME PRN PRN Reason: Insomnia Ondansetron HCl (Ondansetron Hcl 4 Mg/2 Ml Vial) 4 mg IVPUSH Q8H PRN PRN Reason: Nausea and Vomiting Sodium Chloride (0.9 % Sodium Chloride Flush 3 Ml Syringe) [facility] Last Admin: 09/11/24 07:53 Dose: Not Given Home Medications ?Medication ?Instructions ?Recorded ?Confirmed ?Last Taken ?Type aspirin 81 mg tablet,delayed 1 tab PO DAILY 07/21/22 09/11/24 09/10/24 History release ferrous sulfate 324 mg (65 mg 324 mg PO DAILY 04/07/24 09/11/24 07/07/24 History iron) tablet,delayed release gabapentin 100 mg capsule 100 mg PO BEDTIME 05/31/24 09/11/24 07/06/24 History insulin glargine 100 unit/mL 10 unit subcut BEDTIME 07/07/24 09/11/24 Unknown History subcutaneous solution (Lantus U-100 Insulin) metoprolol succinate 25 mg 25 mg PO DAILY 08/06/24 09/11/24 Unknown History tablet,extended release 24 hr furosemide 40 mg tablet 40 mg PO DAILY 09/11/24 09/11/24 Unknown History omeprazole 20 mg capsule,delayed 20 mg PO DAILY@0630 09/11/24 Unknown History release ondansetron 8 mg disintegrating 8 mg PO Q8H PRN nausea/vomiting 09/11/24 09/11/24 Unknown History tablet Physical Exam Vital Signs: Last Vital Signs Temp 98.4 F 09/11/24 10:37 Pulse 67 09/11/24 10:37 Resp 16 09/11/24 10:37 BP 140/66 H 09/11/24 10:37 Pulse Ox 98 09/11/24 10:37 O2 Del Method Nasal Cannula 09/11/24 10:37 O2 Flow Rate 2 09/11/24 10:37 Oxygen Flow Rate 3 09/10/24 23:36 BMI result Body Mass Index 22.7 Const General: no acute distress, alert and awake Resp Effort & Inspection: normal respiratory effort Auscultation: diminished lung sounds Cardio Rate: regular rate Rhythm: regular rhythm Heart sounds: S1 normal heart sound present and S2 normal heart sound present GI Palpation (GI): Soft to palpation and nontender General: Yes no CVA tenderness Back/Spine/Pelvis Back: no CVA tenderness Skin Rashes: no rashes Extrem General: Yes edema (lower extremity edema +2) and Yes pedal edema Results Lab Results 09/11/24 00:04 09/11/24 06:54 Lab results: Chemistry 09/11/24 09/11/24 09/11/24 00:04 01:02 05:51 Sodium 134 L 144 136 Potassium 6.0 H* D 2.5 L* D 6.6 H* D Carbon Dioxide 21 L 13 L 24 BUN 33 H 34 H Creatinine 2.09 H 2.21 H Calcium 8.6 8.4 09/11/24 06:54 Sodium 135 Potassium 6.5 H* Carbon Dioxide 21 L BUN Creatinine Calcium Hematology 09/11/24 00:04 WBC 6.6 Hgb 12.2 D Plt Count 143 L Urinalysis 09/11/24 00:11 Urine Color Yellow Urine Appearance Cloudy Urine pH 8.5 Ur Specific [place] 1.015 Urine Protein 300 (3+) H Urine Glucose (UA) Negative Urine Ketones Negative Urine Blood Small (1+) H Urine Nitrite Negative Ur Leukocyte Esterase Moderate (2+) H Urine RBC 6-10 H Urine WBC >50 H Ur Squamous Epith Cells 6-10 Hyaline Casts 0-2 Assessment and Plan (1) Hyperkalemia: Status: Acute (2) Hypertension: Qualifiers: Hypertension type: primary hypertension Qualified Code(s): I10 - Essential (primary) hypertension Status: Acute (3) Chronic kidney disease: Qualifiers: Chronic kidney disease stage: stage 4 (GFR 15-29) Qualified Code(s): N 18.4 - Chronic kidney disease, stage 4 (severe) Status: Acute (4) Anasarca: Status: Acute Plan Hyperkalemia and edema in setting of baseline CKD. hyperkalemia and fluid overload likely secondary to heart failure exacerbation and resultant reduced renal perfusion. Recommend continuing lasix drip at 5mg/hr. will consider renal source of fluid overload, though given patient was not taking recommended dose of diuretic at home and renal function has improved since last discharge, cardiac source is more likely cause. recommend re-checking potassium level at 2:00- treat with PRN lokelma if remains elevated. creatinine remains at baseline, recommend patient follows up as outpatient with nephrology for continued monitoring of CKD. blood pressures acceptable at this time. avoid nephrotoxins including nsaids. recommend daily electrolyte and renal function studies recommend regular blood pressure checks and close I&O monitoring continue supportive care, will continue to follow. Discussed with Dr Barnes. Procedures Date of Service Date of Service: 09/11/24
[2024-09-11 11:45] LABS: Glucose, Whole Blood 88 mg/dL (60-115)
--- NOTE | 2024-09-11 13:01 | MHC.CM.PN ---
Addendum entered by Gabriel Granados 09/11/24 13:09: DCP- HOME, CONTINUE SERVICES. Original Note: PT FROM HOME WITH SON HAS DIRECTOR INDEX SERVICES USES [facility]-[phone] DOES NOT REMEMBER PCP WILL NEED BLS TRANSPORT HOME
[2024-09-11 13:26] LABS: Glucose, Whole Blood 91 mg/dL (60-115)
[2024-09-11 15:18] LABS: Anion Gap 10 (12-20); Blood Urea Nitrogen 35 mg/dL (9-16); Calcium 8.5 mg/dL (8.4-10.2); Carbon Dioxide 25 mmol/L (22-29); Chloride 107 mmol/L (96-108); Creatinine Clr Calc Pharmacy 27.8; Estimated Glomerular Filt Rate 23; Glucose Random 109 mg/dL (60-115); Potassium 6.1 mmol/L (3.3-5.1); Sodium 136 mmol/L (135-145)
--- NOTE | 2024-09-11 15:27 | PM.EVENT ---
Event Note Date of Service: 09/11/24 Event Note: seen and examined this morning follow up for chf, hyperkalemia History obtained with the assistance of award clerk awake alert, reports leg swelling and pain; no sob, no cough significant b/l LE edema; lungs diminished no rales This is a 54-year-old [place]er-speaking female with pertinent history of chronic combined systolic and diastolic congestive heart failure, chronic hypoxemic respiratory failure due to COPD on 2-3 L supplemental oxygen, hypertension, insulin-dependent diabetes mellitus, gastroesophageal reflux disease, mixed hyperlipidemia, CKD stage 3 who presents to the emergency department for evaluation of dyspnea and vomiting. Acute on chronic combined systolic and diastolic congestive heart failure with anasarca: complicated by hypoalbuminemia and proteinuria Continue IV Lasix drip Follow I's and O's, low-salt diet Was changed to torsemide on last admission however patient has not filled this prescription according to son has continued to take Lasix Nephrology following Hyperkalemia Likely iatrogenic due to replacement as lab value of hypokalemia was likely erroneous [facility] Follow [facility] Nephrology following CKD4 renal function at baseline follow closely while receiving lasix drip Chronic hypoxemic respiratory failure due to COPD: Continue baseline supplemental oxygen and home inhalers Insulin-dependent diabetes mellitus with hypoglycemia Initiating Accu-Cheks with sliding scale insulin hold basal insulin due to hypoglycemia - follow POCs Gastroesophageal reflux disease: On PPI HTN Continue Norvasc, metoprolol Chronic anemia H/H stable Continue oral iron supplementation DVT prophylaxis: Lovenox DNI. Discussed with patient at bedside with the help of award clerk Time Spent With Patient Time: Total time managing care of this patient today ____ minutes.
[2024-09-11] MEDS: Sodium Zirconium Cyclosilicate 10 GM POWD.PACK PO ×2 (15:37→20:21)
[2024-09-11 16:27] LABS: Glucose, Whole Blood 115 mg/dL (60-115)
--- NOTE | 2024-09-11 17:29 | HO.SKINPHOTO ---
Location: Category: Stage: Length: Width: Depth: cm Location: Category: Stage: Length: Width: Depth: cm Location: Category: Stage: Length: Width: Depth: cm Location: Category: Stage: Length: Width: Depth: cm Location: Category: Stage: Length: Width: Depth: cm Location: Category: Stage: Length: Width: Depth: cm
[2024-09-11 19:30] LABS: Glucose, Whole Blood 124 mg/dL (60-115)
[2024-09-11] MEDS: Acetaminophen 325 MG TABLET 650 MG PO (20:20)
[2024-09-11] MEDS: Gabapentin 100 MG CAPSULE PO (20:21)
[2024-09-11] MEDS: Melatonin 3 MG TABLET 6 MG PO (20:21)
[2024-09-11 20:41] LABS: Potassium 6.1 mmol/L (3.3-5.1)
[2024-09-11] MEDS: Sennosides 8.6 MG TABLET PO (21:22)
[2024-09-12 03:15] VITALS: BP 168/78; PULSE 78; RESP 16; TEMP 36.3; O2SAT 97
[2024-09-12] MEDS: Furosemide 200 MG in 0.9 % Sodium Chloride 80 ML IVCONT (05:21)
[2024-09-12] MEDS: Enoxaparin Sodium 30 MG/0.3 ML SYRINGE SUBCUT (05:21)
[2024-09-12 06:47] VITALS: BMI 24.1
[2024-09-12 07:26] LABS: Glucose, Whole Blood 91 mg/dL (60-115)
[2024-09-12 07:27] LABS: MANUAL DIFF FLAG NO
[2024-09-12 07:36] LABS: Basophils Percent Auto 0.6 % (0-2); Eosinophils Absolute Auto 0.3 X10*3/uL (0.0-0.4); Eosinophils Percent Auto 5.3 % (0-4); Hematocrit 32.7 % (37.0-47.0); Hemoglobin 10.6 g/dl (12.0-16.0); Imm Gran Abs Auto 0.01 X10*3/uL (0.00-0.03); Imm Gran Pct Auto 0.2 % (0.0-0.4); Lymphocytes Absolute Auto 1.3 X10*3/uL (1.2-4.9); Lymphocytes Percent Auto 25.5 % (20-40); Mean Corpuscular HGB Conc 32.4 g/dl (31.0-35.0); Mean Corpuscular Volume 92.6 fL (80.0-98.0); Mean Platelet Volume 9.1 fL (9.4-12.3); Monocytes Absolute Auto 0.4 X10*3/uL (0.1-1.2); Monocytes Percent Auto 6.9 % (2-11); Neutrophils Absolute Auto 3.1 x10*3/uL (2.0-8.3); Neutrophils Percent Auto 61.5 % (45-73); Platelet Count 137 X10*3/uL (160-400); Red Blood Count 3.53 X10*6/uL (4.20-5.50); Red Cell Distribution Width 14.8 % (11.0-16.0); White Blood Count 5.1 X10*3/uL (4.8-10.8)
[2024-09-12 07:47] LABS: Anion Gap 11 (12-20); Blood Urea Nitrogen 34 mg/dL (9-16); Calcium 8.6 mg/dL (8.4-10.2); Carbon Dioxide 25 mmol/L (22-29); Chloride 106 mmol/L (96-108); Creatinine Clr Calc Pharmacy 29.5; Estimated Glomerular Filt Rate 25; Glucose Random 91 mg/dL (60-115); Potassium 5.7 mmol/L (3.3-5.1); Sodium 136 mmol/L (135-145)
[2024-09-12 08:00] VITALS: BP 164/78; PULSE 80; RESP 20; TEMP 36.3; O2SAT 95
[2024-09-12] MEDS: amLODIPine Besylate 10 MG TABLET PO (09:25)
[2024-09-12] MEDS: Aspirin Enteric Coated 81 MG TABLET.DR PO (09:25)
[2024-09-12] MEDS: Metoprolol Succinate ER 25 MG TAB.ER.24H PO (09:25)
[2024-09-12] MEDS: Ferrous Sulfate 324 MG TABLET.DR PO (09:25)
[2024-09-12] MEDS: 0.9 % Sodium Chloride Flush 3 ML SYRINGE IVFLUSH ×2 (09:30→20:41)
[2024-09-12] MEDS: Sodium Zirconium Cyclosilicate 10 GM POWD.PACK PO ×3 (09:38→20:41)
[2024-09-12 11:17] LABS: Glucose, Whole Blood 123 mg/dL (60-115)
--- NOTE | 2024-09-12 11:34 | HO.PM.IMPN ---
Subjective Subjective Date of Service: 09/12/24 Review of Systems seen and examined this morning follow up for chf, hyperkalemia awake alert, reports leg swelling and pain; no sob, no cough significant b/l LE edema; lungs diminished no rales Physical Exam Vital Signs: Vital Signs: Last Vital Signs Temp 97.3 F 09/12/24 08:00 Pulse 80 09/12/24 08:00 Resp 20 09/12/24 08:00 BP 164/78 H 09/12/24 08:00 Pulse Ox 95 09/12/24 08:00 O2 Del Method Nasal Cannula 09/12/24 08:00 O2 Flow Rate 2 09/12/24 08:00 Oxygen Flow Rate 3 09/10/24 23:36 BMI result Body Mass Index 24.1 Appearing in no acute distress lung sounds are clear to auscultation heart regular rate rhythm, clear S1, S2, 2+ pitting LE edema positive bowel sounds, abdomen is soft, nontender neuro patient is alert x3, no focal deficits Objective Data Active Medications Acetaminophen (Acetaminophen 325 Mg Tablet) 650 mg PO Q6H PRN PRN Reason: Pain, Mild 1-3,fever,headache Last Admin: 09/11/24 20:20 Dose: 650 mg Documented By: GARY Amlodipine Besylate (Amlodipine Besylate 10 Mg Tablet) 10 mg PO DAILY [facility]; Protocol Last Admin: 09/12/24 09:25 Dose: 10 mg Documented By: LUDY Aspirin (Aspirin Enteric Coated 81 Mg Tablet.Dr) 81 mg PO DAILY [facility] Last Admin: 09/12/24 09:25 Dose: 81 mg Documented By: LUDY Calcium Carbonate (Calcium Carbonate 750 Mg Tab.Chew) 750 mg PO Q4H PRN PRN Reason: Heartburn Ceftriaxone Sodium (Ceftriaxone Sodium 1 Gm Vial) 1 gm IVPUSH Q24H [facility] Last Admin: 09/11/24 20:21 Dose: 1 gm Documented By: GARY Dextrose (Dextrose 50 % 25 Gm/50 Ml Syringe) 25 gm IVPUSH Q15M PRN; Protocol PRN Reason: per Hypoglycemia Standing Ord. Last Admin: 09/11/24 08:43 Dose: 25 gm Documented By: KRYSTIN Enoxaparin Sodium (Enoxaparin Sodium 30 Mg/0.3 Ml Syringe) 30 mg SUBCUT Q24H [facility] Last Admin: 09/12/24 05:21 Dose: 30 mg Documented By: GARY Ferrous Sulfate (Ferrous Sulfate 324 Mg Tablet.Dr) 324 mg PO DAILY [facility] Last Admin: 09/12/24 09:25 Dose: 324 mg Documented By: LUDY Gabapentin (Gabapentin 100 Mg Capsule) 100 mg PO BEDTIME [facility] Last Admin: 09/11/24 20:21 Dose: 100 mg Documented By: GARY Glucose (Glucose Gel 15 Gm Gel..Gram.) 15 gm PO Q15M PRN; Protocol PRN Reason: per Hypoglycemia Standing Ord. Furosemide 200 mg/ Sodium (Chloride) 100 mls @ 2.5 mls/hr IVCONT .Q24H [facility] Last Admin: 09/12/24 05:21 Dose: 5 mg/hr, 2.5 mls/hr Documented By: GARY Insulin Human Lispro (Insulin Lispro 100 Unit/Ml 3 Ml Vial) 0 unit SUBCUT QIDACHS [facility]; Protocol Last Admin: 09/12/24 07:30 Dose: Not Given Documented By: LUDY Non-Admin Reason: No Insulin Coverage Magnesium Hydroxide (Milk Of Magnesia 30 Ml Oral.Susp) 30 ml PO DAILY PRN PRN Reason: Constipation Melatonin (Melatonin 3 Mg Tablet) 6 mg PO BEDTIME PRN PRN Reason: Insomnia Last Admin: 09/11/24 20:21 Dose: 6 mg Documented By: GARY Metoprolol Succinate (Metoprolol Succinate Er 25 Mg Tab.Er.24h) 25 mg PO DAILY [facility]; Protocol Last Admin: 09/12/24 09:25 Dose: 25 mg Documented By: LUDY Ondansetron HCl (Ondansetron Hcl 4 Mg/2 Ml Vial) 4 mg IVPUSH Q8H PRN PRN Reason: Nausea and Vomiting Senna (Sennosides 8.6 Mg Tablet) 8.6 mg PO BEDTIME PRN PRN Reason: Constipation Last Admin: 09/11/24 21:22 Dose: 8.6 mg Documented By: GARY Sodium Chloride (0.9 % Sodium Chloride Flush 3 Ml Syringe) 3 ml IVFLUSH QSHIFT [facility] Last Admin: 09/12/24 09:30 Dose: 3 ml Documented By: LUDY Sodium Zirconium Cyclosilicate (Sodium Zirconium Cyclosilicate 10 Gm Powd.Pack) 10 gm PO TID JM Stop: 09/13/24 15:01 Last Admin: 09/12/24 09:38 Dose: 10 gm Documented By: LUDY Labs 09/12/24 06:45 09/12/24 06:45 Labs: Laboratory Results - last 24 hr 09/11/24 09/11/24 09/11/24 11:41 13:23 14:44 MCV MCH MCHC RDW Plt Count MPV Immature Gran % (Auto) Neut % (Auto) Lymph % (Auto) [place] % (Auto) Eos % (Auto) Baso % (Auto) Lymph # (Auto) [place] # (Auto) Eos # (Auto) Baso # (Auto) Abs Immat Gran (auto) Absolute Neuts (auto) Absolute Nucleated RBC Nucleated RBC % (auto) Anion Gap 10 L Estim Creat Clear Calc 27.8 Estimated GFR 23 POC Glucose 88 91 Random Glucose 109 Calcium 8.5 09/11/24 09/11/24 09/12/24 16:23 19:14 06:45 MCV 92.6 MCH 30.0 MCHC 32.4 RDW 14.8 Plt Count 137 L MPV 9.1 L Immature Gran % (Auto) 0.2 Neut % (Auto) 61.5 Lymph % (Auto) 25.5 [place] % (Auto) 6.9 Eos % (Auto) 5.3 H Baso % (Auto) 0.6 Lymph # (Auto) 1.3 [place] # (Auto) 0.4 Eos # (Auto) 0.3 Baso # (Auto) 0.0 Abs Immat Gran (auto) 0.01 Absolute Neuts (auto) 3.1 Absolute Nucleated RBC 0.000 Nucleated RBC % (auto) 0.0 Anion Gap 11 L Estim Creat Clear Calc 29.5 Estimated GFR 25 POC Glucose 115 124 H Random Glucose 91 Calcium 8.6 09/12/24 09/12/24 07:18 11:10 MCV MCH MCHC RDW Plt Count MPV Immature Gran % (Auto) Neut % (Auto) Lymph % (Auto) [place] % (Auto) Eos % (Auto) Baso % (Auto) Lymph # (Auto) [place] # (Auto) Eos # (Auto) Baso # (Auto) Abs Immat Gran (auto) Absolute Neuts (auto) Absolute Nucleated RBC Nucleated RBC % (auto) Anion Gap Estim Creat Clear Calc Estimated GFR POC Glucose 91 123 H Random Glucose Calcium Microbiology Microbiology Results: Microbiology 09/11/24 Unknown Urine Culture - Final Urine clean catch - Clean Catch Midstream 09/11/24 03:26 Blood Culture - Preliminary Blood - Venous No growth after 24 hours. 09/11/24 03:25 Blood Culture - Preliminary Blood - Venous No growth after 24 hours. Assessment and Plan (1) Acute on chronic heart failure with mildly reduced ejection fraction (HFmrEF, 41-49%): Status: Acute Plan 54-year-old [place]olese-speaking female with pertinent history of chronic combined systolic and diastolic congestive heart failure, chronic hypoxemic respiratory failure due to COPD on 2-3 L supplemental oxygen, hypertension, insulin-dependent diabetes mellitus, gastroesophageal reflux disease, mixed hyperlipidemia, CKD stage 3 who presents to the emergency department for evaluation of dyspnea and vomiting. Acute on chronic combined systolic and diastolic congestive heart failure with anasarca complicated by hypoalbuminemia and proteinuria Continue IV Lasix drip Follow I's and O's, low-salt diet Was changed to torsemide on last admission however patient has not filled this prescription according to son has continued to take Lasix Nephrology following Hyperkalemia Likely iatrogenic due to replacement as lab value of hypokalemia was likely erroneous Lokelma TID Follow [facility] Nephrology following CKD4 renal function at baseline follow closely while receiving lasix drip Chronic hypoxemic respiratory failure due to COPD Continue baseline supplemental oxygen and home inhalers Insulin-dependent diabetes mellitus with hypoglycemia Initiating Accu-Cheks with sliding scale insulin hold basal insulin due to hypoglycemia - follow POCs Gastroesophageal reflux disease On PPI HTN Continue Norvasc, metoprolol Chronic anemia H/H stable Continue oral iron supplementation DVT prophylaxis: Lovenox DNI. Quality Stroke Does the patient have a stroke diagnosis?: No VTE Prior VTE?: No VTE Risk Level:: Medical - moderate - high VTE Device Contraindication: Treatment Not Indicated VTE Drug Contraindication: N/A - Med Ordered
[2024-09-12 11:43] VITALS: BP 162/72; PULSE 73; RESP 20; TEMP 36.3; O2SAT 95
[2024-09-12 15:25] VITALS: BP 145/63; PULSE 71; RESP 16; TEMP 36.5; O2SAT 96
[2024-09-12] MEDS: Calcium Carbonate 750 MG TAB.CHEW PO (15:54)
[2024-09-12 16:25] LABS: Glucose, Whole Blood 111 mg/dL (60-115)
[2024-09-12 19:24] VITALS: BP 162/78; PULSE 73; RESP 16; TEMP 36.2; O2SAT 97
[2024-09-12 20:25] LABS: Glucose, Whole Blood 96 mg/dL (60-115)
[2024-09-12] MEDS: Gabapentin 100 MG CAPSULE PO (20:41)
[2024-09-12] MEDS: cefTRIAXone sodium 1 GM VIAL IVPUSH (20:41)
[2024-09-12 23:25] VITALS: BP 178/80; PULSE 76; RESP 16; TEMP 36.1; O2SAT 95
[2024-09-13 03:35] VITALS: BP 175/80; PULSE 76; RESP 16; TEMP 36.9; O2SAT 96
[2024-09-13] MEDS: Furosemide 200 MG in 0.9 % Sodium Chloride 80 ML IVCONT (05:40)
[2024-09-13] MEDS: Enoxaparin Sodium 30 MG/0.3 ML SYRINGE SUBCUT (05:40)
[2024-09-13 07:15] LABS: Glucose, Whole Blood 79 mg/dL (60-115)
[2024-09-13 07:48] VITALS: BP 182/80; PULSE 78; RESP 20; TEMP 36.2; O2SAT 97
[2024-09-13 08:25] LABS: Anion Gap 14 (12-20); Blood Urea Nitrogen 31 mg/dL (9-16); Calcium 8.6 mg/dL (8.4-10.2); Carbon Dioxide 26 mmol/L (22-29); Chloride 104 mmol/L (96-108); Estimated Glomerular Filt Rate 25; Glucose Random 80 mg/dL (60-115); Potassium 4.7 mmol/L (3.3-5.1); Sodium 139 mmol/L (135-145)
[2024-09-13 08:34] LABS: B Type Natriuretic Peptide 1600 pg/mL (<100)
[2024-09-13] MEDS: amLODIPine Besylate 10 MG TABLET PO (08:50)
[2024-09-13] MEDS: Ferrous Sulfate 324 MG TABLET.DR PO (08:50)
[2024-09-13] MEDS: Aspirin Enteric Coated 81 MG TABLET.DR PO (08:50)
[2024-09-13] MEDS: Metoprolol Succinate ER 25 MG TAB.ER.24H PO (08:50)
[2024-09-13] MEDS: Sodium Zirconium Cyclosilicate 10 GM POWD.PACK PO ×2 (08:50→16:10)
[2024-09-13] MEDS: 0.9 % Sodium Chloride Flush 3 ML SYRINGE IVFLUSH ×3 (08:57→20:19)
[2024-09-13 10:58] LABS: Glucose, Whole Blood 124 mg/dL (60-115)
--- NOTE | 2024-09-13 11:24 | P.PNIM_ITS ---
Subjective Subjective Date of Service: 09/13/24 Review of Systems seen and examined this morning follow up for chf, hyperkalemia awake alert, reports leg swelling and pain; no sob, no cough significant b/l LE edema; lungs diminished no rales Physical Exam 2 Vital Signs: Vital Signs: Last Vital Signs Temp 97.1 F 09/13/24 07:48 Pulse 78 09/13/24 07:48 Resp 20 09/13/24 07:48 BP 182/80 H 09/13/24 07:48 Pulse Ox 97 09/13/24 07:48 O2 Del Method Nasal Cannula 09/13/24 07:48 O2 Flow Rate 2 09/13/24 07:48 Oxygen Flow Rate 3 09/10/24 23:36 BMI result Body Mass Index 24.1 Appearing in no acute distress lung sounds are clear to auscultation heart regular rate rhythm, clear S1, S2 positive bowel sounds, abdomen is soft, nontender neuro patient is alert x3, no focal deficits Objective Data Active Medications Acetaminophen (Acetaminophen 325 Mg Tablet) 650 mg PO Q6H PRN PRN Reason: Pain, Mild 1-3,fever,headache Last Admin: 09/11/24 20:20 Dose: 650 mg Documented By: GARY Amlodipine Besylate (Amlodipine Besylate 10 Mg Tablet) 10 mg PO DAILY [facility]; Protocol Last Admin: 09/13/24 08:50 Dose: 10 mg Documented By: LUDY Aspirin (Aspirin Enteric Coated 81 Mg Tablet.) 81 mg PO DAILY [facility] Last Admin: 09/13/24 08:50 Dose: 81 mg Documented By: LUDY Calcium Carbonate (Calcium Carbonate 750 Mg Tab.Chew) 750 mg PO Q4H PRN PRN Reason: Heartburn Last Admin: 09/12/24 15:54 Dose: 750 mg Documented By: LUDY Ceftriaxone Sodium (Ceftriaxone Sodium 1 Gm Vial) 1 gm IVPUSH Q24H JM Last Admin: 09/12/24 20:41 Dose: 1 gm Documented By: ANTOINC Dextrose (Dextrose 50 % 25 Gm/50 Ml Syringe) 25 gm IVPUSH Q15M PRN; Protocol PRN Reason: per Hypoglycemia Standing Ord. Last Admin: 09/11/24 08:43 Dose: 25 gm Documented By: KRYSTIN Enoxaparin Sodium (Enoxaparin Sodium 30 Mg/0.3 Ml Syringe) 30 mg SUBCUT Q24H [facility] Last Admin: 09/13/24 05:40 Dose: 30 mg Documented By: GARY Ferrous Sulfate (Ferrous Sulfate 324 Mg Tablet.Dr) 324 mg PO DAILY [facility] Last Admin: 09/13/24 08:50 Dose: 324 mg Documented By: LDUY Gabapentin (Gabapentin 100 Mg Capsule) 100 mg PO BEDTIME [facility] Last Admin: 09/12/24 20:41 Dose: 100 mg Documented By: ANTOINC Glucose (Glucose Gel 15 Gm Gel..Gram.) 15 gm PO Q15M PRN; Protocol PRN Reason: per Hypoglycemia Standing Ord. Furosemide 200 mg/ Sodium (Chloride) 100 mls @ 2.5 mls/hr IVCONT .Q24H [facility] Last Admin: 09/13/24 05:40 Dose: 5 mg/hr, 2.5 mls/hr Documented By: GARY Insulin Human Lispro (Insulin Lispro 100 Unit/Ml 3 Ml Vial) 0 unit SUBCUT QIDACHS [facility]; Protocol Last Admin: 09/13/24 11:09 Dose: Not Given Documented By: LUDY Non-Admin Reason: No Insulin Coverage Magnesium Hydroxide (Milk Of Magnesia 30 Ml Oral.Susp) 30 ml PO DAILY PRN PRN Reason: Constipation Melatonin (Melatonin 3 Mg Tablet) 6 mg PO BEDTIME PRN PRN Reason: Insomnia Last Admin: 09/11/24 20:21 Dose: 6 mg Documented By: GARY Metoprolol Succinate (Metoprolol Succinate Er 25 Mg Tab.Er.24h) 25 mg PO DAILY [facility]; Protocol Last Admin: 09/13/24 08:50 Dose: 25 mg Documented By: LUDY Ondansetron HCl (Ondansetron Hcl 4 Mg/2 Ml Vial) 4 mg IVPUSH Q8H PRN PRN Reason: Nausea and Vomiting Senna (Sennosides 8.6 Mg Tablet) 8.6 mg PO BEDTIME PRN PRN Reason: Constipation Last Admin: 09/11/24 21:22 Dose: 8.6 mg Documented By: GARY Sodium Chloride (0.9 % Sodium Chloride Flush 3 Ml Syringe) 3 ml IVFLUSH QSHIFT [facility] Last Admin: 09/13/24 08:57 Dose: 3 ml Documented By: LUDY Sodium Zirconium Cyclosilicate (Sodium Zirconium Cyclosilicate 10 Gm Powd.Pack) 10 gm PO TID JM Stop: 09/13/24 15:01 Last Admin: 09/13/24 08:50 Dose: 10 gm Documented By: LUDY Labs 09/12/24 06:45 09/13/24 07:30 Labs: Laboratory Results - last 24 hr 09/12/24 09/12/24 09/13/24 16:20 20:20 07:11 Anion Gap Estim Creat Clear Calc Estimated GFR POC Glucose 111 96 79 Random Glucose Calcium B-Natriuretic Peptide 09/13/24 09/13/24 09/13/24 07:30 07:51 10:49 Anion Gap 14 Estim Creat Clear Calc 30.0 Estimated GFR 25 POC Glucose 124 H Random Glucose 80 Calcium 8.6 B-Natriuretic Peptide 1600 H Microbiology Microbiology Results: Microbiology 09/11/24 03:26 Blood Culture - Preliminary Blood - Venous No growth after 48 hours. 09/11/24 03:25 Blood Culture - Preliminary Blood - Venous No growth after 48 hours. 09/11/24 Unknown Urine Culture - Final Urine clean catch - Clean Catch Midstream Assessment and Plan (1) Acute on chronic heart failure with mildly reduced ejection fraction (HFmrEF, 41-49%): Status: Acute Plan 54-year-old Faroese-speaking female with pertinent history of chronic combined systolic and diastolic congestive heart failure, chronic hypoxemic respiratory failure due to COPD on 2-3 L supplemental oxygen, hypertension, insulin- dependent diabetes mellitus, gastroesophageal reflux disease, mixed hyperlipidemia, CKD stage 3 who presents to the emergency department for evaluation of dyspnea and vomiting. Acute on chronic combined systolic and diastolic congestive heart failure with anasarca complicated by hypoalbuminemia and proteinuria Continue IV Lasix drip Follow I's and O's, low-salt diet Was changed to torsemide on last admission however patient has not filled this prescription according to son has continued to take Lasix Nephrology following BNP 1600 -2.0L Hyperkalemia Likely iatrogenic due to replacement as lab value of hypokalemia was likely erroneous Lokelma TID Follow [facility] following CKD4 renal function at baseline follow closely while receiving lasix drip Chronic hypoxemic respiratory failure due to COPD Continue baseline supplemental oxygen and home inhalers Insulin-dependent diabetes mellitus with hypoglycemia Initiating Accu-Cheks with sliding scale insulin hold basal insulin due to hypoglycemia - follow POCs Gastroesophageal reflux disease On PPI HTN Continue Norvasc, metoprolol Chronic anemia H/H stable Continue oral iron supplementation DVT prophylaxis: Lovenox DNI. Quality Stroke Does the patient have a stroke diagnosis?: No VTE Prior VTE?: No VTE Risk Level:: Medical - moderate - high VTE Device Contraindication: Treatment Not Indicated VTE Drug Contraindication: N/A - Med Ordered
--- NOTE | 2024-09-13 11:44 | P.PNNP_ITS ---
Subjective Subjective Date of Service: 09/13/24 Principal diagnosis: Hyperkalemia, CKD Interval history: Good urine output with fluid balance net-2 L leading to improvement in potassium down to 4.7. Physical Exam 2 Vital Signs: Vital Signs: Last Vital Signs Temp 97.1 F 09/13/24 07:48 Pulse 78 09/13/24 07:48 Resp 20 09/13/24 07:48 BP 182/80 H 09/13/24 07:48 Pulse Ox 97 09/13/24 07:48 O2 Del Method Nasal Cannula 09/13/24 07:48 O2 Flow Rate 2 09/13/24 07:48 Oxygen Flow Rate 3 09/10/24 23:36 BMI result Body Mass Index 24.1 General: Chronically ill and tired appearing Nutritional Appearance: Poor nourished and underweight Eyes: appearance normal, both eyes and all related structures; Alignment and Position: alignment normal and position normal Neck: No lymphadenopathy, no thyromegaly Resp: bilateral air entry equal, occasional added sounds present Cardio: Regular rate, regular rhythm; Heart sounds: S1 normal heart sound present and S2 normal heart sound present, edema present GI: soft, nontender, no guarding, no hepatosplenomegaly : bladder normal to inspection, bladder normal to palpation, no renal angle tenderness Skin: no rashes or lesions noted and elasticity normal Neuro: oriented to person, oriented to place, oriented to time and moves all extremities Objective Data Labs 09/12/24 06:45 09/13/24 07:30 Labs: Laboratory Results - last 24 hr 09/12/24 09/12/24 09/13/24 16:20 20:20 07:11 Sodium Potassium Chloride Carbon Dioxide Anion Gap BUN Creatinine Estim Creat Clear Calc Estimated GFR POC Glucose 111 96 79 Random Glucose Calcium B-Natriuretic Peptide 09/13/24 09/13/24 09/13/24 07:30 07:51 10:49 Sodium 139 Potassium 4.7 Chloride 104 Carbon Dioxide 26 Anion Gap 14 BUN 31 H Creatinine 2.06 H Estim Creat Clear Calc 30.0 Estimated GFR 25 POC Glucose 124 H Random Glucose 80 Calcium 8.6 B-Natriuretic Peptide 1600 H Microbiology Microbiology Results: Microbiology 09/11/24 03:26 Blood - Venous Blood Culture - Preliminary No growth after 48 hours. 09/11/24 03:25 Blood - Venous Blood Culture - Preliminary No growth after 48 hours. 09/11/24 Unknown Urine clean catch - Clean Catch Midstream Urine Culture - Final Procedures Date of Service Date of Service: 09/13/24 Assessment & Plan Assessment and plan (1) Acute kidney injury superimposed on CKD: Status: Acute (2) Hyperkalemia: Status: Acute (3) UTI (urinary tract infection): Status: Acute Time Spent With Patient Time: Hyperkalemia: - secondary to poor perfusion of the kidneys in the setting of decompensated heart failure and iatrogenic KCl - potassium decreasing with good urine output, fluid balance about net-2 L yesterday - can stopped Lokelma after today afternoon dose Chronic kidney disease: - secondary to cardiorenal syndrome, creatinine around baseline - CT abdomen and pelvis did not show any obstruction - monitor renal function daily - avoid nephrotoxic medications not limited to NSAIDs, contrast etc. - dose all the medications as per GFR Thanks for your consult, we will sign off, patient can be followed up in renal Clinic 1-2 weeks after discharge. Progress Note: Quality Stroke Does the patient have a stroke diagnosis?: No
[2024-09-13 12:00] VITALS: BP 152/72; PULSE 72; RESP 20; TEMP 36.8; O2SAT 97
[2024-09-13 15:25] VITALS: BP 149/70; PULSE 69; RESP 17; TEMP 36.4; O2SAT 98
--- NOTE | 2024-09-13 15:30 | PC.NURSE ---
This RN and MD educated pt that she should be getting OOB to recliner and commode to relief pressure off rachel areas and prevent deconditioning while in the hosp. at that time pt understood and purwick was removed. [employer] reported to this RN that pt was refusing to get OOB into recliner and that she wanted to stay in bed. pt was educated again, still refusing to get OOB and requesting purwick. provider notified.
[2024-09-13 16:11] LABS: Glucose, Whole Blood 95 mg/dL (60-115)
[2024-09-13 19:12] VITALS: BP 150/68; PULSE 71; RESP 16; TEMP 36.4; O2SAT 95
[2024-09-13] MEDS: cefTRIAXone sodium 1 GM VIAL IVPUSH (20:19)
[2024-09-13 20:48] LABS: Glucose, Whole Blood 130 mg/dL (60-115)
[2024-09-13 23:38] VITALS: BP 170/78; PULSE 69; RESP 16; TEMP 36.6; O2SAT 97
[2024-09-14] VITALS (7 sets, daily range): BP systolic 140–172; BP diastolic 67–79; PULSE 70–89; RESP 16–18; TEMP 36.4–36.7; O2SAT 94–98; BMI 23.5
[2024-09-14] MEDS: hydrALAZINE HCl 20 MG/ML VIAL 5 MG IVPUSH (00:36)
[2024-09-14] MEDS: Furosemide 200 MG in 0.9 % Sodium Chloride 80 ML IVCONT (06:10)
[2024-09-14] MEDS: Enoxaparin Sodium 30 MG/0.3 ML SYRINGE SUBCUT (06:10)
[2024-09-14 07:12] LABS: Glucose, Whole Blood 83 mg/dL (60-115)
[2024-09-14] MEDS: Metoprolol Succinate ER 25 MG TAB.ER.24H PO (08:22)
[2024-09-14] MEDS: 0.9 % Sodium Chloride Flush 3 ML SYRINGE IVFLUSH ×3 (08:22→20:18)
[2024-09-14] MEDS: Ferrous Sulfate 324 MG TABLET.DR PO (08:22)
[2024-09-14] MEDS: Aspirin Enteric Coated 81 MG TABLET.DR PO (08:22)
[2024-09-14] MEDS: amLODIPine Besylate 10 MG TABLET PO (08:22)
[2024-09-14 08:43] LABS: Anion Gap 12 (12-20); Blood Urea Nitrogen 29 mg/dL (9-16); Calcium 8.5 mg/dL (8.4-10.2); Carbon Dioxide 29 mmol/L (22-29); Chloride 101 mmol/L (96-108); Creatinine Clr Calc Pharmacy 30.6; Estimated Glomerular Filt Rate 26; Glucose Random 85 mg/dL (60-115); Potassium 3.9 mmol/L (3.3-5.1); Sodium 138 mmol/L (135-145)
[2024-09-14 08:48] LABS: B Type Natriuretic Peptide 1631 pg/mL (<100)
--- NOTE | 2024-09-14 09:10 | P.PNIM_ITS ---
Subjective Subjective Date of Service: 09/14/24 Review of Systems Follow up for chf, hyperkalemia awake alert Less edema not motivated to ambulate Physical Exam 2 Vital Signs: Vital Signs: Last Vital Signs Temp 97.9 F 09/14/24 07:39 Pulse 71 09/14/24 07:39 Resp 17 09/14/24 07:39 BP 140/69 H 09/14/24 07:39 Pulse Ox 96 09/14/24 07:39 O2 Del Method Nasal Cannula 09/14/24 07:39 O2 Flow Rate 2 09/14/24 07:39 Oxygen Flow Rate 3 09/10/24 23:36 BMI result Body Mass Index 23.5 Appearing in no acute distress lung sounds are clear to auscultation heart regular rate rhythm, clear S1, S2 positive bowel sounds, abdomen is soft, nontender neuro patient is alert x3, no focal deficits Objective Data Active Medications Acetaminophen (Acetaminophen 325 Mg Tablet) 650 mg PO Q6H PRN PRN Reason: Pain, Mild 1-3,fever,headache Last Admin: 09/11/24 20:20 Dose: 650 mg Documented By: GARY Amlodipine Besylate (Amlodipine Besylate 10 Mg Tablet) 10 mg PO DAILY [facility]; Protocol Last Admin: 09/14/24 08:22 Dose: 10 mg Documented By: SURAJ Aspirin (Aspirin Enteric Coated 81 Mg Tablet.Dr) 81 mg PO DAILY [facility] Last Admin: 09/14/24 08:22 Dose: 81 mg Documented By: SURAJ Calcium Carbonate (Calcium Carbonate 750 Mg Tab.Chew) 750 mg PO Q4H PRN PRN Reason: Heartburn Last Admin: 09/12/24 15:54 Dose: 750 mg Documented By: LUDY Ceftriaxone Sodium (Ceftriaxone Sodium 1 Gm Vial) 1 gm IVPUSH Q24H JM Last Admin: 09/13/24 20:19 Dose: 1 gm Documented By: JUAN JOSÉ Dextrose (Dextrose 50 % 25 Gm/50 Ml Syringe) 25 gm IVPUSH Q15M PRN; Protocol PRN Reason: per Hypoglycemia Standing Ord. Last Admin: 09/11/24 08:43 Dose: 25 gm Documented By: RKYSTIN Enoxaparin Sodium (Enoxaparin Sodium 30 Mg/0.3 Ml Syringe) 30 mg SUBCUT Q24H [facility] Last Admin: 09/14/24 06:10 Dose: 30 mg Documented By: JUNA JOSÉ Ferrous Sulfate (Ferrous Sulfate 324 Mg Tablet.) 324 mg PO DAILY [facility] Last Admin: 09/14/24 08:22 Dose: 324 mg Documented By: SURAJ Gabapentin (Gabapentin 100 Mg Capsule) 100 mg PO BEDTIME [facility] Last Admin: 09/13/24 20:30 Dose: Not Given Documented By: JUAN JOSÉ Non-Admin Reason: Patient Refused Glucose (Glucose Gel 15 Gm Gel..Gram.) 15 gm PO Q15M PRN; Protocol PRN Reason: per Hypoglycemia Standing Ord. Furosemide 200 mg/ Sodium (Chloride) 100 mls @ 2.5 mls/hr IVCONT .Q24H [facility] Last Admin: 09/14/24 06:10 Dose: 5 mg/hr, 2.5 mls/hr Documented By: JUAN JOSÉ Insulin Human Lispro (Insulin Lispro 100 Unit/Ml 3 Ml Vial) 0 unit SUBCUT QIDACHS [facility]; Protocol Last Admin: 09/14/24 07:23 Dose: Not Given Documented By: SURAJ Non-Admin Reason: No Insulin Coverage Magnesium Hydroxide (Milk Of Magnesia 30 Ml Oral.Susp) 30 ml PO DAILY PRN PRN Reason: Constipation Melatonin (Melatonin 3 Mg Tablet) 6 mg PO BEDTIME PRN PRN Reason: Insomnia Last Admin: 09/11/24 20:21 Dose: 6 mg Documented By: GARY Metoprolol Succinate (Metoprolol Succinate Er 25 Mg Tab.Er.24h) 25 mg PO DAILY [facility]; Protocol Last Admin: 09/14/24 08:22 Dose: 25 mg Documented By: SURAJ Ondansetron HCl (Ondansetron Hcl 4 Mg/2 Ml Vial) 4 mg IVPUSH Q8H PRN PRN Reason: Nausea and Vomiting Senna (Sennosides 8.6 Mg Tablet) 8.6 mg PO BEDTIME PRN PRN Reason: Constipation Last Admin: 09/11/24 21:22 Dose: 8.6 mg Documented By: GARY Sodium Chloride (0.9 % Sodium Chloride Flush 3 Ml Syringe) 3 ml IVFLUSH QSHIFT [facility] Last Admin: 09/14/24 08:22 Dose: 3 ml Documented By: SURAJ Labs 09/12/24 06:45 09/14/24 08:14 Labs: Laboratory Results - last 24 hr 09/13/24 09/13/24 09/13/24 10:49 16:08 20:26 Anion Gap Estim Creat Clear Calc Estimated GFR POC Glucose 124 H 95 130 H Random Glucose Calcium B-Natriuretic Peptide 09/14/24 09/14/24 07:08 08:14 Anion Gap 12 Estim Creat Clear Calc 30.6 Estimated GFR 26 POC Glucose 83 Random Glucose 85 Calcium 8.5 B-Natriuretic Peptide 1631 H Microbiology Microbiology Results: Microbiology 09/11/24 03:26 Blood Culture - Preliminary Blood - Venous No growth after 48 hours. 09/11/24 03:25 Blood Culture - Preliminary Blood - Venous No growth after 48 hours. Assessment and Plan (1) Acute on chronic heart failure with mildly reduced ejection fraction (HFmrEF, 41-49%): Status: Acute Plan 54-year-old [place]inean-speaking female with pertinent history of chronic combined systolic and diastolic congestive heart failure, chronic hypoxemic respiratory failure due to COPD on 2-3 L supplemental oxygen, hypertension, insulin- dependent diabetes mellitus, gastroesophageal reflux disease, mixed hyperlipidemia, CKD stage 3 who presents to the emergency department for evaluation of dyspnea and vomiting. Acute on chronic combined systolic and diastolic congestive heart failure with anasarca complicated by hypoalbuminemia and proteinuria s/p IV Lasix drip Follow I's and O's, low-salt diet Was changed to torsemide on last admission however patient has not filled this prescription according to son has continued to take Lasix Nephrology following BNP 1631 -3.3L switch to Torsemide Hyperkalemia. Resolved Likely iatrogenic due to replacement as lab value of hypokalemia was likely erroneous s/p Lokelma TID Follow [facility] following CKD4 renal function at baseline follow closely while receiving lasix drip Chronic hypoxemic respiratory failure due to COPD Continue baseline supplemental oxygen and home inhalers Insulin-dependent diabetes mellitus with hypoglycemia Initiating Accu-Cheks with sliding scale insulin hold basal insulin due to hypoglycemia - follow POCs Gastroesophageal reflux disease On PPI HTN Continue Norvasc, metoprolol Chronic anemia H/H stable Continue oral iron supplementation DVT prophylaxis: Lovenox DNI. Quality Stroke Does the patient have a stroke diagnosis?: No VTE Prior VTE?: No VTE Risk Level:: Medical - moderate - high VTE Device Contraindication: Treatment Not Indicated VTE Drug Contraindication: N/A - Med Ordered
--- NOTE | 2024-09-14 09:55 | P.PNNP_ITS ---
Subjective Subjective Date of Service: 09/14/24 Principal diagnosis: Hyperkalemia, CKD Interval history: 54-year-old female with chronic combined systolic and diastolic congestive heart failure, hypertension, type 2 diabetes, CKD stage 4. Presented 09/11 with dyspnea and vomiting, admitted for fluid overload and anasarca. Nephrology consulted for hyperkalemia, CKD. On presentation potassium was 6.0; K shortly after initial level was 2.5 without intervention, so concern for erroneous lab value. Potassium was given for hypokalemia, subsequent potassium 6.6 this a.m. Patient has since been on a lasix drip for management of fluid overload. Of note, per son patient may not have been taking torsemide 40mg daily as prescribed at home, was taking 20mg lasix furosemide instead. blood pressure this a.m. 140/66 creatinine 2.21 this a.m. (most recent creatinine prior to admission was 2.89) patient's albumin mildly low at 2.9 she denies shortness of breath, chest pain, states she is voiding complains of chronic leg pain denies other symptoms Physical Exam 2 Vital Signs: Vital Signs: Last Vital Signs Temp 97.9 F 09/14/24 07:39 Pulse 71 09/14/24 07:39 Resp 17 09/14/24 07:39 BP 140/69 H 09/14/24 07:39 Pulse Ox 96 09/14/24 07:39 O2 Del Method Nasal Cannula 09/14/24 07:39 O2 Flow Rate 2 09/14/24 07:39 Oxygen Flow Rate 3 09/10/24 23:36 BMI result Body Mass Index 23.5 Const: General: no acute distress, alert and awake Resp: Effort & Inspection: normal respiratory effort Auscultation: d iminished lung sounds Cardio: Rate: regular rate Rhythm: regular rhythm Heart sounds: S1 normal heart sound present and S2 normal heart sound present GI: Palpation (GI): Soft to palpation and nontender : General: Yes no CVA tenderness Back/Spine/Pelvis: Back: no CVA tenderness Skin: Rashes: no rashes Extrem: General: Yes edema (lower extremity edema +1) and Yes pedal edema Objective Data Labs 09/12/24 06:45 09/14/24 08:14 Labs: Laboratory Results - last 24 hr 09/13/24 09/13/24 09/13/24 10:49 16:08 20:26 Sodium Potassium Chloride Carbon Dioxide Anion Gap BUN Creatinine Estim Creat Clear Calc Estimated GFR POC Glucose 124 H 95 130 H Random Glucose Calcium B-Natriuretic Peptide 09/14/24 09/14/24 07:08 08:14 Sodium 138 Potassium 3.9 Chloride 101 Carbon Dioxide 29 Anion Gap 12 BUN 29 H Creatinine 2.02 H Estim Creat Clear Calc 30.6 Estimated GFR 26 POC Glucose 83 Random Glucose 85 Calcium 8.5 B-Natriuretic Peptide 1631 H Microbiology Microbiology Results: Microbiology 09/11/24 03:26 Blood - Venous Blood Culture - Preliminary No growth after 48 hours. 09/11/24 03:25 Blood - Venous Blood Culture - Preliminary No growth after 48 hours. 09/11/24 Unknown Urine clean catch - Clean Catch Midstream Urine Culture - Final Procedures Date of Service Date of Service: 09/14/24 Assessment & Plan Assessment and plan (1) Chronic kidney disease: Status: Acute (2) Acute hypokalemia: Status: Acute (3) Hypertension: Status: Acute (4) Anasarca: Status: Acute Plan Hyperkalemia and edema in setting of baseline CKD. hyperkalemia likely secondary to heart failure exacerbation and resultant reduced renal perfusion- resolved. fluid overload secondary to cardiorenal syndrome, improving with diuresis. May discontinue lasix drip and start 40mg torsemide PO daily. She will need close outpatient nephrology follow up. creatinine remains at baseline, recommend patient follows up as outpatient with nephrology for continued monitoring of CKD. blood pressures acceptable at this time; will start oral torsemide 40mg daily and reassess blood pressures as outpatient in 1-2 weeks. avoid nephrotoxins including nsaids. continue supportive care. Discussed with Dr Whittington. Time Spent With Patient Time: Total time managing care of this patient today ____ minutes. Progress Note: Quality Stroke Does the patient have a stroke diagnosis?: No
--- NOTE | 2024-09-14 10:56 | MHC.CM.PN ---
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
[2024-09-14 11:31] LABS: Glucose, Whole Blood 121 mg/dL (60-115)
[2024-09-14] MEDS: Torsemide 20 MG TABLET 40 MG PO (15:17)
[2024-09-14 15:55] LABS: Glucose, Whole Blood 121 mg/dL (60-115)
[2024-09-14] MEDS: cefTRIAXone sodium 1 GM VIAL IVPUSH (20:17)
[2024-09-14 21:32] LABS: Glucose, Whole Blood 103 mg/dL (60-115)
[2024-09-15 03:18] VITALS: BP 178/68; PULSE 76; RESP 18; TEMP 36.6; O2SAT 95
[2024-09-15] MEDS: Enoxaparin Sodium 40 MG/0.4 ML SYRINGE SUBCUT (06:31)
[2024-09-15 06:55] VITALS: BMI 23.1
[2024-09-15 07:34] VITALS: BP 175/81; PULSE 76; RESP 14; TEMP 36.6; O2SAT 96
[2024-09-15 07:49] LABS: Glucose, Whole Blood 75 mg/dL (60-115)
[2024-09-15] MEDS: Torsemide 20 MG TABLET 40 MG PO (08:04)
[2024-09-15] MEDS: amLODIPine Besylate 10 MG TABLET PO (08:04)
[2024-09-15] MEDS: Metoprolol Succinate ER 25 MG TAB.ER.24H PO (08:04)
[2024-09-15] MEDS: 0.9 % Sodium Chloride Flush 3 ML SYRINGE IVFLUSH (08:04)
[2024-09-15] MEDS: Aspirin Enteric Coated 81 MG TABLET.DR PO (08:04)
[2024-09-15] MEDS: Ferrous Sulfate 324 MG TABLET.DR PO (08:04)
--- NOTE | 2024-09-15 08:42 | PC.NURSE ---
director digital catalogue ,Neelima was present for pt's education and assessment
--- NOTE | 2024-09-15 08:45 | P.PNNP_ITS ---
Subjective Subjective Date of Service: 09/15/24 Principal diagnosis: Hyperkalemia, CKD Interval history: 54-year-old female with chronic combined systolic and diastolic congestive heart failure, hypertension, type 2 diabetes, CKD stage 4. Presented 09/11 with dyspnea and vomiting, admitted for fluid overload and anasarca. Nephrology consulted for hyperkalemia, CKD. . creatinine 2.02 on 09/14 (most recent creatinine prior to admission was 2.89) lasix drip for fluid overload transitioned to PO torsemide 40mg daily patient's albumin mildly low at 2.9 patient states she feels at her baseline breathing she denies shortness of breath, chest pain, states she is voiding leg swelling has improved. complains of chronic leg pain denies other symptoms Physical Exam 2 Vital Signs: Vital Signs: Last Vital Signs Temp 97.9 F 09/15/24 07:34 Pulse 76 09/15/24 07:34 Resp 14 09/15/24 07:34 BP 175/81 H 09/15/24 07:34 Pulse Ox 96 09/15/24 07:34 O2 Del Method Nasal Cannula 09/15/24 07:34 O2 Flow Rate 2 09/15/24 07:34 Oxygen Flow Rate 3 09/10/24 23:36 BMI result Body Mass Index 23.1 Const: General: no acute distress, alert and awake Resp: Effort & Inspection: normal respiratory effort Auscultation: d iminished lung sounds Cardio: Rate: regular rate Rhythm: regular rhythm Heart sounds: S1 normal heart sound present and S2 normal heart sound present GI: Palpation (GI): Soft to palpation and nontender : General: Yes no CVA tenderness Back/Spine/Pelvis: Back: no CVA tenderness Skin: Rashes: no rashes Extrem: General: Yes edema (lower extremity edema +1) and Yes pedal edema Objective Data Labs 09/12/24 06:45 09/14/24 08:14 Labs: Laboratory Results - last 24 hr 09/14/24 09/14/24 09/14/24 11:27 15:51 21:29 POC Glucose 121 H 121 H 103 09/15/24 07:33 POC Glucose 75 Microbiology Microbiology Results: Microbiology 09/11/24 03:26 Blood - Venous Blood Culture - Preliminary No growth after 48 hours. 09/11/24 03:25 Blood - Venous Blood Culture - Preliminary No growth after 48 hours. 09/11/24 Unknown Urine clean catch - Clean Catch Midstream Urine Culture - Final Procedures Date of Service Date of Service: 09/15/24 Assessment & Plan Assessment and plan (1) Chronic kidney disease: Status: Acute (2) Acute hypokalemia: Status: Acute (3) Hypertension: Status: Acute (4) Anasarca: Status: Acute Plan Hyperkalemia and edema in setting of baseline CKD. hyperkalemia likely secondary to heart failure exacerbation and resultant reduced renal perfusion- resolved. fluid overload secondary to cardiorenal syndrome, improving with diuresis. continue 40mg oral torsemide daily, will arrange close follow up in outpatient nephrology office- discussed with patient the importance of keeping her follow up appointment in order to prevent another hospital admission. blood pressures elevated- continue oral torsemide 40mg daily, amlodipine 10mg daily and add lisinopril 5mg daily; will reassess blood pressures as outpatient in 1-2 weeks. avoid nephrotoxins including nsaids. continue supportive care. Discussed with Dr Whittington. Time Spent With Patient Time: Total time managing care of this patient today ____ minutes. Progress Note: Quality Stroke Does the patient have a stroke diagnosis?: No
[2024-09-15] MEDS: Metoprolol Succinate ER 50 MG TAB.ER.24H PO (09:55)
--- NOTE | 2024-09-15 10:21 | PM.DS ---
DS: Providers Provider Date of Service: 09/15/24 Date of admission: 09/11/24 03:47 Date of discharge: 09/15/24 Primary care physician: Unknown Physician Consults: 09/11/24 08:42 Consult to Nephrology Routine Consulting Provider: [facility] Reason for consultation: fluid overload, hyperkalemia, ckd Has provider been notified: No DS: Diagnosis Discharge Diagnosis (1) Chronic kidney disease: Status: Acute (2) Acute hypokalemia: Status: Acute (3) Hypertension: Status: Acute (4) Anasarca: Status: Acute DS: Summary Hospital Course Hospital Course: History and physical as per admitting provider. This is a 54-year-old Marshallese-speaking female with pertinent history of chronic combined systolic and diastolic congestive heart failure, chronic hypoxemic respiratory failure due to COPD on 2-3 L supplemental oxygen, hypertension, insulin-dependent diabetes mellitus, gastroesophageal reflux disease, mixed hyperlipidemia, CKD stage 3 who presents to the emergency department for evaluation of dyspnea and vomiting. History obtained with the help of cocoa milling machine operator. Patient states her symptoms started 5 days prior to presentation. She has been having dyspnea which is slightly worse when lying down. Also has been having generalized abdominal discomfort with nausea and multiple episodes of nonbloody emesis. Patient with poor p.o. intake and not feeling well. Generalized muscle eyes with easy fatigability. Also endorses increased urinary frequency. No chest pain or palpitations. No fever, chills, changes in urinary or bowel habits. In the emergency department, BNP found to be elevated and imaging concerning for fluid overload and anasarca. Acute on chronic combined systolic and diastolic congestive heart failure with anasarca. Treated with IV Lasix drip for 3 days, switched to torsemide 40 mg daily. Patient negative more than 3 L. Follows with Nephrology and should follow up outpatient. Reminded that she needs to take her torsemide everyday. He still has some mild lower extremity edema which is chronic for her. Hyperkalemia. Resolved. Likely iatrogenic due to replacement, status post Lokelma t.i.d. CKD4. Renal function remained at baseline Chronic hypoxemic respiratory failure due to COPD . Continue baseline supplemental oxygen and home inhalers Insulin-dependent diabetes mellitus with hypoglycemia. Treated with sliding scale. Continue home medications Gastroesophageal reflux disease On PPI HTN Continue Norvasc, metoprolol Chronic anemia H/H stable Continue oral iron supplementation Time Attestation Discharge Coordination Time (in mins): 40 Quality: Safe Use of Opioids Does Pt have an Active Cancer Diagnosis on the Problem List?: No Quality: Stroke Does the patient have a stroke diagnosis?: No Physical Exam Vital Signs: Vital Signs: Last Vital Signs Temp 97.9 F 09/15/24 07:34 Pulse 76 09/15/24 07:34 Resp 14 09/15/24 07:34 BP 175/81 H 09/15/24 07:34 Pulse Ox 96 09/15/24 07:34 O2 Del Method Nasal Cannula 09/15/24 07:34 O2 Flow Rate 2 09/15/24 07:34 Oxygen Flow Rate 3 09/10/24 23:36 BMI result Body Mass Index 23.1 Appearing in no acute distress head is normocephalic atraumatic eyes pupils are PERRLA sclera is anicteric mouth throat mucous membranes are intact and moist neck is supple no lymphadenopathy, no JVD noted lung sounds are clear to auscultation heart regular rate rhythm, clear S1, S2 positive bowel sounds, abdomen is soft, nontender neuro patient is alert x3, no focal deficits DS: Data Data Completed and Pending Completed studies during hospitalization [Text1]: Procedures Assistance with Respiratory Ventilation, Less than 24 Consecutive Hours, Continuous Positive Airway Pressure (02/08/24) Drainage of Left Pleural Cavity, Percutaneous Approach (08/06/24) Drainage of Right Pleural Cavity, Percutaneous Approach (08/06/24) Insertion of Infusion Device into Left Cephalic Vein, Percutaneous Approach (02/08/24) Transfusion of Nonautologous Red Blood Cells into Peripheral Vein, Percutaneous Approach (08/06/24) Labs on day of discharge: Laboratory Results - last 24 hr 09/14/24 09/14/24 09/14/24 11:27 15:51 21:29 POC Glucose 121 H 121 H 103 09/15/24 07:33 POC Glucose 75 Preliminary micro results at discharge 09/11/24 03:26 Blood Culture - Preliminary Blood - Venous No growth after 48 hours. 09/11/24 03:25 Blood Culture - Preliminary Blood - Venous No growth after 48 hours. Discharge Plan Discharge Anticipated Discharge Date/Time: 09/15/24 10:15 Patient Disposition: Home Health Service Discharge Diagnosis: Acute on chronic combined systolic and diastolic congestive heart failure Anasarca Hyperkalemia Referrals: Alberto Mills MD [Physician] - 1 Week Discharge Medications: New torsemide 20 mg Tablet 40 mg PO DAILY Qty: 60 0RF Protocol: Hold for SBP< HOLD for SBP < : 90 Continued aspirin 81 mg tablet,delayed release (DR/EC) 1 tab PO DAILY (DME) FreeStyle Test Strip See Rx Instructions .Route Qty: 100 0RF Rx Instructions: As directed amlodipine 10 mg Tablet 10 mg PO DAILY Qty: 30 0RF Protocol: Hold for SBP< HOLD for SBP < : 90 gabapentin 100 mg capsule 100 mg PO BEDTIME insulin glargine [Lantus U-100 Insulin] 100 unit/mL solution 10 unit subcut BEDTIME metoprolol succinate 25 mg tablet extended release 24 hr 25 mg PO DAILY ondansetron 8 mg tablet,disintegrating 8 mg PO Q8H PRN (Reason: nausea/vomiting) omeprazole 20 mg capsule,delayed release(DR/EC) 20 mg PO DAILY@0630 ferrous sulfate 324 mg (65 mg iron) tablet,delayed release (DR/EC) 324 mg PO DAILY Discontinued torsemide 20 mg Tablet 40 mg PO DAILY Qty: 60 0RF Protocol: Hold for SBP< HOLD for SBP < : 90 furosemide 40 mg Tablet 40 mg PO DAILY Discharge Orders: Discharge Order (Routine); Ordered 09/15/24 Ordered By: Jade Maldonado Diet: Advance to usual diet Activity on Discharge: As tolerated Stand Alone Forms: Patient Portal Discharge page Print Language: Marshallese Care Plan Goals: Take diuretics as prescribed Follow up with Nephrology in the office Health Concerns: Acute on chronic combined systolic and diastolic congestive heart failure Anasarca Hyperkalemia Plan of Treatment: Follow-up with primary care provider as needed Take all medications as prescribed Assessment: See discharge summary
--- NOTE | 2024-09-15 10:40 | MHC.CM.PN ---
Addendum entered by Christie Scott 09/15/24 10:54: CM spoke with Son/HCP/Bin @ [phone]; he will be home to receive Patient from the [place], set up for 4PM. Original Note: Patient has been medically cleared for dc to home today, with services. A referral has been made to [facility], who has been made aware of today's dc.
[2024-09-15 11:01] LABS: Glucose, Whole Blood 114 mg/dL (60-115)
[2024-09-15 11:33] VITALS: BP 154/71; PULSE 71; RESP 17; TEMP 36.9; O2SAT 97
[2024-09-15] MEDS: lisinopriL 5 MG TABLET PO (13:50)
--- NOTE | 2024-09-15 14:02 | PC.NURSE ---
discharge instructions given to the patient with membership assistant presence ,PER PT'S REQUEST pt's son Bin was called and discharge instructions were given to him over the phone in Guyanese , he speaks Guyanese
--- NOTE | 2024-09-15 14:12 | W.MHC.F2F ---
Service Date Service Date: 09/15/24 Encounter Date of encounter: 09/15/24 Reasons for Services Signs and symptoms assessed: Congestive heart failure Weakness Reason for physical therapy: home safety and mobility Homebound: Leaving the home is medically contraindicated at this time without the asist of a device and/or another person due th the listed conditions above and below. Reason homebound: unsteady gait / fall risk and weakness related to hospital stay Certification: Based on the above findings, I certify that this patient is confined to the home and needs intermittent custodial care, physical therapy and/or speech therapy, or continues to need occupational therapy. The patient is under my care, and I have initiated the establishment of the plan of care. The patient will be followed by a physician who will periodically review the plan of care. Time Spent With Patient Time: Total time managing care of this patient today ____ minutes.
[2024-09-15 16:00] VITALS: BP 156/69; PULSE 69; RESP 16; TEMP 37.1; O2SAT 97
[2024-09-15 16:40] LABS: Glucose, Whole Blood 98 mg/dL (60-115)
== END 2024-09-15 17:00 | disposition home health service (06) | DRG 194 ==
LOC: HO.ED 09-11 03:22 → HO.EDOVER 09-11 04:19 → HO.S3 09-11 09:24 → HO.EDOVER 09-11 09:47 → HO.IMC 09-11 14:58
PROVIDERS: Physician Assistant Medical; Admitting Provider Student in an Organized Health Care Education/Training Program; Emergency Provider Internal Medicine; Visit Provider Nurse Practitioner Acute Care
DX: I13.0 Hypertensive heart and chronic kidney disease with heart failure and stage 1 through stage 4 chronic kidney disease, or unspecified chronic kidney disease (principal); E11.649 Type 2 diabetes mellitus with hypoglycemia without coma; E87.29 Other acidosis; E88.09 Other disorders of plasma-protein metabolism, not elsewhere classified; D63.1 Anemia in chronic kidney disease; J96.11 Chronic respiratory failure with hypoxia; E11.22 Type 2 diabetes mellitus with diabetic chronic kidney disease; K21.9 Gastro-esophageal reflux disease without esophagitis; N18.4 Chronic kidney disease, stage 4 (severe); J44.9 Chronic obstructive pulmonary disease, unspecified; E87.5 Hyperkalemia; E78.2 Mixed hyperlipidemia; Z99.81 Dependence on supplemental oxygen; I50.43 Acute on chronic combined systolic (congestive) and diastolic (congestive) heart failure; Z79.4 Long term (current) use of insulin; Z79.82 Long term (current) use of aspirin; Z79.899 Other long term (current) drug therapy
CPT/HCPCS: 36415; 71045; 71250; 74176; 80048; 80051; 80053; 81001; 82803; 82947; 83605; 83690; 83880; 84132; 84484; 85025; 87040; 87086; 93005; 94660; 97161; 99285; J0360; J0613; J0696; J1650; J1938; J3480

== ENCOUNTER → 2024-09-10 23:34 | Outpatient (BNV) | payer MEDICAID, SELFPAY | PROVIDERS: Admitting Provider Student in an Organized Health Care Education/Training Program; Emergency Provider Internal Medicine; Visit Provider Internal Medicine | DX: R94.31 Abnormal electrocardiogram [ECG] [EKG] (principal); R06.00 Dyspnea, unspecified | CPT/HCPCS: 93010 ==

== ENCOUNTER → 2024-09-10 23:34 | Outpatient (BNV) | payer MEDICAID, SELFPAY | PROVIDERS: Emergency Provider Internal Medicine; Visit Provider Radiology Diagnostic Radiology | DX: R06.02 Shortness of breath (principal) | CPT/HCPCS: 71045 ==

== ENCOUNTER → 2024-09-11 01:42 | Outpatient (BNV) | payer MEDICAID, SELFPAY | PROVIDERS: Emergency Provider Internal Medicine; Visit Provider Radiology Diagnostic Radiology | DX: R60.1 Generalized edema (principal); R11.10 Vomiting, unspecified; R63.4 Abnormal weight loss; J98.11 Atelectasis | CPT/HCPCS: 71250; 74176 ==

== ENCOUNTER 2024-09-11 03:47 | Outpatient (BNV) | payer MEDICAID, SELFPAY | END 2024-09-11 07:09 | PROVIDERS: Admitting Provider Student in an Organized Health Care Education/Training Program; Emergency Provider Internal Medicine; Visit Provider Internal Medicine | DX: R94.31 Abnormal electrocardiogram [ECG] [EKG] (principal) | CPT/HCPCS: 93010 ==

== ENCOUNTER → 2024-09-11 03:47 | Outpatient (BNV) | payer MEDICAID, SELFPAY | PROVIDERS: Admitting Provider Student in an Organized Health Care Education/Training Program; Emergency Provider Internal Medicine; Visit Provider Internal Medicine Critical Care Medicine | DX: N17.9 Acute kidney failure, unspecified (principal); N18.9 Chronic kidney disease, unspecified; E87.5 Hyperkalemia; N39.0 Urinary tract infection, site not specified | CPT/HCPCS: 99232 ==

== ENCOUNTER → 2024-09-11 03:47 | Outpatient (BNV) | payer MEDICAID, SELFPAY | PROVIDERS: Admitting Provider Student in an Organized Health Care Education/Training Program; Emergency Provider Internal Medicine; Visit Provider Student in an Organized Health Care Education/Training Program | DX: I50.23 Acute on chronic systolic (congestive) heart failure (principal) | CPT/HCPCS: 99223; 99232; 99499 ==

== ENCOUNTER → 2024-09-11 03:47 | Outpatient (BNV) | payer MEDICAID, SELFPAY | PROVIDERS: Admitting Provider Student in an Organized Health Care Education/Training Program; Emergency Provider Internal Medicine; Visit Provider Nurse Practitioner Family | DX: E87.5 Hyperkalemia (principal); I12.9 Hypertensive chronic kidney disease with stage 1 through stage 4 chronic kidney disease, or unspecified chronic kidney disease; N18.4 Chronic kidney disease, stage 4 (severe); R60.1 Generalized edema | CPT/HCPCS: 99222 ==